=== PATIENT | male | born 1945 | race Caucasian/White ===

== ENCOUNTER 2017-04-16 12:43 | Outpatient (RCR) | payer MEDICARE ==
[~2017-04-16 12:43] MED LIST: ASPI-875 PO; ASPI325T32 PO; BISO1TAB39 PO; BISO1TAB63 PO; CIPR500T78 PO; CRV6.25T PO; INDOMETHACIN PO; KCL20TCR PO; LEVO200T6 PO; LEVO75TA6 PO; Lisinopril PO; OXYC10TA85 PO; SPRN25T PO
== END 2017-04-16 16:00 | disposition home or self-care (01) ==
LOC: WOUNDCARE 12:43
PROVIDERS: ATTEND Surgery
DX: E11.621 Type 2 diabetes mellitus with foot ulcer (principal); L97.512 Non-pressure chronic ulcer of other part of right foot with fat layer exposed; L97.412 Non-pressure chronic ulcer of right heel and midfoot with fat layer exposed; I70.244 Atherosclerosis of native arteries of left leg with ulceration of heel and midfoot; I70.245 Atherosclerosis of native arteries of left leg with ulceration of other part of foot; I87.323 Chronic venous hypertension (idiopathic) with inflammation of bilateral lower extremity; E11.65 Type 2 diabetes mellitus with hyperglycemia
CPT/HCPCS: 11042; 11045; 82962; 87070; 87075; 87077; 87186; 87205

== ENCOUNTER → 2017-04-23 | Outpatient (CLI) | payer MEDICARE ==
[~2017-04-23] MED LIST changes: +ASPI-999 PO; +LEVO175T5 PO; +OXYC20TA3 PO
== END ==
LOC: WOUNDCARE 12:31
PROVIDERS: ATTEND Surgery
DX: E11.621 Type 2 diabetes mellitus with foot ulcer (principal); L97.522 Non-pressure chronic ulcer of other part of left foot with fat layer exposed; L97.422 Non-pressure chronic ulcer of left heel and midfoot with fat layer exposed; I70.244 Atherosclerosis of native arteries of left leg with ulceration of heel and midfoot; I70.245 Atherosclerosis of native arteries of left leg with ulceration of other part of foot; I87.323 Chronic venous hypertension (idiopathic) with inflammation of bilateral lower extremity; E11.65 Type 2 diabetes mellitus with hyperglycemia
CPT/HCPCS: 11042

== ENCOUNTER 2017-04-24 07:40 | Day surgery (SDC) | payer MEDICARE ==
[~2017-04-24] VITALS: Ht 179.1 cm; Wt 115.7 kg
[2017-04-24] VITALS (9 sets, daily range): BP systolic 118–158; BP diastolic 59–73
[~2017-04-24 07:40] MED LIST changes: -ASPI-999 PO; -LEVO175T5 PO; -OXYC20TA3 PO
[2017-04-24] MEDS ORDERED: HEParin (CATH LAB) 2,000 ML IV ONE (07:42)
[2017-04-24] MEDS ORDERED: NS IV 1000 ML 1,000 ML ONE (07:42)
[2017-04-24] MEDS ORDERED: NS IV 1000 ML 1,000 ML IV SCH ×2 (08:00→12:32)
[2017-04-24 08:18] LABS: RED BLOOD COUNT 4.44 10^6/uL (4.35-5.85); RED CELL DISTRIBUTION WIDTH 17.9 % (10.0-14.5); WHITE BLOOD COUNT 11.1 10^3/uL (4.3-11.0)
[2017-04-24 08:31] LABS: INR 1.1 (0.8-1.4); PROTHROMBIN TIME PATIENT 14.2 SEC (12.2-14.7)
[2017-04-24 08:36] LABS: ALBUMIN 3.5 GM/DL (3.2-4.5); BILIRUBIN,TOTAL 1.1 MG/DL (0.1-1.0); CALCIUM 9.1 MG/DL (8.5-10.1); CREATININE SERUM 1.26 MG/DL (0.60-1.30); TOTAL PROTEIN 7.6 GM/DL (6.4-8.2)
[2017-04-24] MEDS ORDERED: OXYC20TA3 PO (09:39)
[2017-04-24] MEDS ORDERED: LEVO175T5 PO (09:39)
[2017-04-24] MEDS ORDERED: diphenhydrAMINE 50 MG/ML INJ (BENADRYL) ONE (10:47)
[2017-04-24] MEDS ORDERED: fentaNYL INJECTION 100 MCG/2 ML AMP ONE (10:47)
[2017-04-24] MEDS ORDERED: MIDAZOLAM 5 MG/5 ML (VERSED) VIAL ONE (10:47)
--- NOTE | 2017-04-24 10:57 | Cardiac Procedure Note-CS/ASA ---
Pre-Procedure Note Pre-Op Procedure Note H&P Reviewed The H&P was reviewed, patient examined and no changes noted. Date H&P Reviewed: Apr 24, 2017 Time H&P Reviewed: 10:57 Conscious Sedation Pre-Proced Time Reviewed: :57 ASA Class: 2 Airway Mallampati Classification: ([place] appropriate class) I. II. III, IV Lungs Heart ASA score ASA 1: a normal healthy patient ASA 2: a patient with a mild systemic disease (mid diabetes, controlled hypertension, obesity ASA 3: a patient with a severe systemic disease that limits activity (angina , COPD, prior Myocardial infarction) ASA 4: a patient with an incapacitating disease that is a constant threat to life (CHF, renal failure) ASA 5: a moribund patient not expected to survive 24 hrs. (ruptured aneurysm) ASA 6: a declared brain patient whose organs are being harvested. For emergent operations, add the letter E after the classification Grade 2 Sedation Plan: Analgesia, Amnesia, Plan communicated to team members, Discussed options with patient/fam, Discussed risks with patient/fam Note The patient is an appropriate candidate to undergo the planned procedure, sedation, and anesthesia. The patient immediately re-assessed prior to indication. JORGE A ALFARO MD FACP FAC CCDS Apr 24, 2017 10:57
[2017-04-24] MEDS ORDERED: ASPI-999 PO (12:34)
--- NOTE | 2017-04-24 12:35 | Discharge Inst-Post CATH ---
Discharge Inst-CATH Post Cardiac Cath D/C Inst Follow Up/Plan F/u with Dr Frausto in 1-2 weeks CARDIAC CATH DISCHARGE INSTRUCTIONS *Hold Metformin for 48 hours post heart cath. ACTIVITY * Go Home directly and rest. * Limit activity of the leg (or wrist if it was used) for 7 days including aerobics, swimming, jogging, bicycling, etc. * Restrict stair-climbing for 7 days if possible, if not, climb up with your non -cath leg, then bring together on the same step. * Avoid lifting, pushing, pulling or excessive movement of the affected extremity for 7 days. * Customary sexual activity may be resumed after 2 days-use caution not to use a position that strains or causes pain to the affected extremity. * No driving for 24 hours. * NO SMOKING. * Avoid straining for bowel movements for 7 days. * Gentle walking on level ground is allowed. * Returning to work will depend on the type of procedure and the results. Your doctor will discuss this with you. CALL YOUR DOCTOR FOR ANY OF THE FOLLOWING: *If bleeding from the puncture site occurs- Apply gentle pressure to site with clean cloth and call your doctor or EMS. * If a knot or lump forms under the skin, increases in size, or causes pain. * If bruising appears to be worsening or moving further down your leg instead of disappearing. * Temperature above 101 F. CARE OF YOUR GROIN INCISION; * Bruising or purple discoloration of the skin near the puncture site is common. * You may shower only, no bathtub bathing for 5 days. Be careful to avoid slipping as your leg may feel stiff. * If a closure device was used on your femoral artery, please see the attached guide regarding care of the device and your leg. * REMOVE the dressing from your groin the next day after your procedure in the shower. CARE OF YOUR WRIST INCISION; * Bruising or purple discoloration of the skin near the puncture site is common. * You may shower. * DO NOT submerge wrist. * Remove dressing in 24 hours. JORGE A FRAUSTO MD [facility] CCDS Apr 24, 2017 12:35
--- NOTE | 2017-04-24 12:36 | Discharge Inst-Cardiology ---
Discharge Inst-Cardiac Discharge Medications New Medications: Aspirin (Aspirin) 81 Mg Tab.chew 81 MG PO DAILY for 90 Days, #90 TAB 3 Refills Continued Medications: Bisoprol/Hydrochlorothiazide (Bisoprolol-Hctz 5-6.25 Mg Tab) 1 Tab Tablet 1 TAB PO DAILY, TAB Levothyroxine Sodium (Levothyroxine Sodium) 175 Mcg Tablet 175 MCG PO DAILY, TAB Oxycodone HCl (Oxycodone HCl) 20 Mg Tablet 10 MG PO Q6H PRN for PAIN-SEVERE, TAB TAKES 1/2 OF A (20 MG) TABLET Orders-Post D/C & Referrals Pneu Vac Indicated: Yes JORGE A ALFARO MD FACP FAC CCDS Apr 24, 2017 12:36
[2017-04-24] MEDS ORDERED: PATIENT MAY USE OWN MEDS, ALL PO SCH (12:45)
--- NOTE | 2017-04-25 10:56 | OPERATIVE REPORT ---
DATE OF SERVICE: 04/24/2017 PERIPHERAL ANGIOGRAPHY The patient is a 72-year-old gentleman who had a nonhealing wound of the left great toe that is being managed by Dr. Love. Ankle brachial indices and segmental pressures have indicated considerable disease of the dorsalis pedis artery on the left side. Peripheral angiography was carried out today to further evaluate and to see if peripheral intervention is needed. Informed consent was obtained. DESCRIPTION OF PROCEDURE: He was brought to the cardiac catheterization laboratory in a fasting state. The right groin was prepared and draped in the usual sterile fashion. Lidocaine 1% local anesthesia. Modified Seldinger technique was used to advance a 5-[place] sheath into the right femoral artery. We used a 5-[place] pigtail catheter to carry out bilateral leg artery angiography with runoff. This was accomplished by putting a pigtail catheter just above the level of the aortoiliac bifurcation. A runoff was then performed although the circulation below the legs on either side was not adequately visualized. Because the area of interest was on the left side, we proceeded with selective angiography of the left common iliac artery with a #5 [place] crossover catheter with runoff. We then advanced a straight catheter over a wire into the distal left superficial femoral artery and we were able to perform angiography of the left popliteal artery and the trifurcation arteries. The catheter was then removed. Angiography of the right femoral artery was carried out through the sheath. Mynx was used to achieve hemostasis. He tolerated the procedure well. Bilateral leg artery angiography is limited to the proximal circulation up to the distal superficial femoral. On this, the distal circulation of the legs is not visualized. The proximal circulation on both legs appears intact and the flow is brisk. Selective angiography of the left common iliac artery indicates mild plaque involving the common iliac, external iliac, internal iliac, common femoral, superficial femoral, and deep femoral arteries. Selective angiography of the distal left superficial femoral artery indicates no significant stenosis at the popliteal artery or the distal left superficial femoral artery. The popliteal artery trifurcates into the anterior tibial which exhibits only mild plaque and is intact down to the level of the foot. The peroneal artery is relatively small in caliber. It appears intact. It appears to have diffuse mild to moderate disease. The posterior tibial artery is also intact all the way down to the foot. It has diffuse moderate disease. There does not appear to have critical stenoses. The stenoses are up to approximately 50 to 60%. CONCLUSIONS: This study indicates moderate distal disease of the arterial circulation of the left leg. The dorsalis pedis, peroneal, and posterior tibial arteries are intact. The left anterior tibial artery has mild disease. The peroneal and posterior tibial arteries have moderate disease. Job ID: [id number] DocumentID: [id number] Dictated Date: 04/24/2017 12:26:00 Jetting Machine Operator Date: 04/24/2017 13:09:14 Dictated By: JORGE A ALFARO MD, MA, FACP, FACC,
== END 2017-04-24 16:00 | disposition home or self-care (01) ==
LOC: CATH 07:40 → SURG 12:31 → ENPENDDIS 15:45 → CATH 16:00
PROVIDERS: ATTEND Internal Medicine Cardiovascular Disease
DX: I70.213 Atherosclerosis of native arteries of extremities with intermittent claudication, bilateral legs (principal); L97.529 Non-pressure chronic ulcer of other part of left foot with unspecified severity; L97.429 Non-pressure chronic ulcer of left heel and midfoot with unspecified severity; I70.244 Atherosclerosis of native arteries of left leg with ulceration of heel and midfoot; I70.245 Atherosclerosis of native arteries of left leg with ulceration of other part of foot; I10 Essential (primary) hypertension; I25.10 Atherosclerotic heart disease of native coronary artery without angina pectoris; M10.9 Gout, unspecified; R73.09 Other abnormal glucose; Z79.899 Other long term (current) drug therapy; Z72.0 Tobacco use; Z95.5 Presence of coronary angioplasty implant and graft
CPT/HCPCS: 36245; 36415; 75716; 75774; 80053; 80061; 85027; 85610; 85730; 87081

== ENCOUNTER → 2017-04-30 | Outpatient (CLI) | payer MEDICARE ==
[~2017-04-30] MED LIST changes: +ASPI-999 PO; +LEVO175T5 PO; +OXYC20TA3 PO
== END ==
LOC: WOUNDCARE 13:21
PROVIDERS: ATTEND Surgery
DX: E11.621 Type 2 diabetes mellitus with foot ulcer (principal); L97.522 Non-pressure chronic ulcer of other part of left foot with fat layer exposed; L97.422 Non-pressure chronic ulcer of left heel and midfoot with fat layer exposed; I70.244 Atherosclerosis of native arteries of left leg with ulceration of heel and midfoot; I70.245 Atherosclerosis of native arteries of left leg with ulceration of other part of foot; I87.323 Chronic venous hypertension (idiopathic) with inflammation of bilateral lower extremity; E11.65 Type 2 diabetes mellitus with hyperglycemia
CPT/HCPCS: 11042

== ENCOUNTER → 2017-05-01 | Outpatient (CLI) | payer MEDICARE ==
--- NOTE | 2017-05-01 13:42 | Diagnostic Imaging Report ---
EXAMINATION: Left foot at 10:30 a.m. INDICATION: Chronic ulcer on big toe. FINDINGS: Three views were obtained. There are no prior studies available for comparison. There is slight irregularity of the skin overlying the medial aspect of the interphalangeal joint of the great toe. There is also a 3 x 7 mm area of diminished density along the medial aspect of the tuft of the distal phalanx of the great toe. This area of diminished density could be secondary to osteomyelitis although the cortex appears to be fairly well preserved. If further imaging is desired, then a nuclear medicine three-phase bone scan or MRI would be recommended. There is no other sign of bony destruction. There is no fracture or acute bony abnormality appreciated either. There is a mild hallux valgus deformity of the first ray and there is degenerative disease involving the medial aspect of the head of the first metatarsal. There are also moderate degenerative changes involving the forefoot. The lateral view also suggests that there is considerable soft tissue edema over the dorsal aspect of the forefoot. There is a prominent calcaneal spur. IMPRESSION: 1. There does appear to be a small area of ulceration along the medial aspect of the great toe. The area of diminished density within the tuft of the distal phalanx of the great toe is suspicious for osteomyelitis as well. Recommendations as above. 2. There is no acute bony abnormality noted otherwise, but there does seem to be generalized soft tissue edema of the dorsum of the forefoot. Dictated by: Dictated on workstation # [id number]
== END ==
LOC: RAD 10:02
PROVIDERS: ATTEND Surgery
DX: E11.621 Type 2 diabetes mellitus with foot ulcer (principal); R60.0 Localized edema; L97.522 Non-pressure chronic ulcer of other part of left foot with fat layer exposed; L97.422 Non-pressure chronic ulcer of left heel and midfoot with fat layer exposed; I70.244 Atherosclerosis of native arteries of left leg with ulceration of heel and midfoot; I70.245 Atherosclerosis of native arteries of left leg with ulceration of other part of foot; I87.323 Chronic venous hypertension (idiopathic) with inflammation of bilateral lower extremity
CPT/HCPCS: 73630

== ENCOUNTER → 2017-05-07 | Outpatient (CLI) | payer MEDICARE | LOC: WOUNDCARE 09:17 | PROVIDERS: ATTEND Nurse Practitioner | DX: E11.621 Type 2 diabetes mellitus with foot ulcer (principal); L97.522 Non-pressure chronic ulcer of other part of left foot with fat layer exposed; L97.422 Non-pressure chronic ulcer of left heel and midfoot with fat layer exposed; I70.244 Atherosclerosis of native arteries of left leg with ulceration of heel and midfoot; I70.245 Atherosclerosis of native arteries of left leg with ulceration of other part of foot; I87.323 Chronic venous hypertension (idiopathic) with inflammation of bilateral lower extremity; E11.65 Type 2 diabetes mellitus with hyperglycemia | CPT/HCPCS: 11042 ==

== ENCOUNTER → 2017-05-14 | Outpatient (CLI) | payer MEDICARE | LOC: WOUNDCARE 13:18 | PROVIDERS: ATTEND Surgery | DX: E11.621 Type 2 diabetes mellitus with foot ulcer (principal); L97.522 Non-pressure chronic ulcer of other part of left foot with fat layer exposed; L97.422 Non-pressure chronic ulcer of left heel and midfoot with fat layer exposed; I70.244 Atherosclerosis of native arteries of left leg with ulceration of heel and midfoot; I70.245 Atherosclerosis of native arteries of left leg with ulceration of other part of foot; I87.323 Chronic venous hypertension (idiopathic) with inflammation of bilateral lower extremity; E11.65 Type 2 diabetes mellitus with hyperglycemia | CPT/HCPCS: 11042 ==

== ENCOUNTER → 2017-05-28 | Outpatient (CLI) | payer MEDICARE | LOC: WOUNDCARE 13:26 | PROVIDERS: ATTEND Surgery | DX: E11.621 Type 2 diabetes mellitus with foot ulcer (principal); L97.422 Non-pressure chronic ulcer of left heel and midfoot with fat layer exposed; L97.522 Non-pressure chronic ulcer of other part of left foot with fat layer exposed; I70.244 Atherosclerosis of native arteries of left leg with ulceration of heel and midfoot; I70.245 Atherosclerosis of native arteries of left leg with ulceration of other part of foot; I87.323 Chronic venous hypertension (idiopathic) with inflammation of bilateral lower extremity; E11.65 Type 2 diabetes mellitus with hyperglycemia | CPT/HCPCS: 11042 ==

== ENCOUNTER → 2017-06-04 | Outpatient (CLI) | payer MEDICARE | LOC: WOUNDCARE 13:48 | PROVIDERS: ATTEND Surgery | DX: E11.621 Type 2 diabetes mellitus with foot ulcer (principal); L97.522 Non-pressure chronic ulcer of other part of left foot with fat layer exposed; L97.422 Non-pressure chronic ulcer of left heel and midfoot with fat layer exposed; I70.244 Atherosclerosis of native arteries of left leg with ulceration of heel and midfoot; I70.245 Atherosclerosis of native arteries of left leg with ulceration of other part of foot; I87.323 Chronic venous hypertension (idiopathic) with inflammation of bilateral lower extremity; E11.65 Type 2 diabetes mellitus with hyperglycemia | CPT/HCPCS: 11042 ==

== ENCOUNTER → 2017-06-18 | Outpatient (CLI) | payer MEDICARE | LOC: WOUNDCARE 13:17 | PROVIDERS: ATTEND Surgery | DX: E11.621 Type 2 diabetes mellitus with foot ulcer (principal); L97.522 Non-pressure chronic ulcer of other part of left foot with fat layer exposed; L97.422 Non-pressure chronic ulcer of left heel and midfoot with fat layer exposed; I70.244 Atherosclerosis of native arteries of left leg with ulceration of heel and midfoot; I70.245 Atherosclerosis of native arteries of left leg with ulceration of other part of foot; I87.323 Chronic venous hypertension (idiopathic) with inflammation of bilateral lower extremity; E11.65 Type 2 diabetes mellitus with hyperglycemia | CPT/HCPCS: 11042; 87070; 87075; 87077; 87205 ==

== ENCOUNTER → 2017-06-18 | Outpatient (CLI) | payer MEDICARE | LOC: LAB 14:23 | PROVIDERS: ATTEND Surgery | DX: E11.621 Type 2 diabetes mellitus with foot ulcer (principal); L97.522 Non-pressure chronic ulcer of other part of left foot with fat layer exposed; L97.422 Non-pressure chronic ulcer of left heel and midfoot with fat layer exposed; E11.65 Type 2 diabetes mellitus with hyperglycemia; I70.245 Atherosclerosis of native arteries of left leg with ulceration of other part of foot; I70.244 Atherosclerosis of native arteries of left leg with ulceration of heel and midfoot | CPT/HCPCS: 36415; 83036 ==

== ENCOUNTER → 2017-06-25 | Outpatient (CLI) | payer MEDICARE | LOC: WOUNDCARE 13:08 | PROVIDERS: ATTEND Surgery | DX: E11.621 Type 2 diabetes mellitus with foot ulcer (principal); L97.522 Non-pressure chronic ulcer of other part of left foot with fat layer exposed; L97.422 Non-pressure chronic ulcer of left heel and midfoot with fat layer exposed; I70.244 Atherosclerosis of native arteries of left leg with ulceration of heel and midfoot; I70.245 Atherosclerosis of native arteries of left leg with ulceration of other part of foot; I87.323 Chronic venous hypertension (idiopathic) with inflammation of bilateral lower extremity; E11.65 Type 2 diabetes mellitus with hyperglycemia | CPT/HCPCS: 11042 ==

== ENCOUNTER → 2017-07-02 | Outpatient (CLI) | payer MEDICARE | LOC: WOUNDCARE 13:10 | PROVIDERS: ATTEND Surgery | DX: E11.621 Type 2 diabetes mellitus with foot ulcer (principal); L97.522 Non-pressure chronic ulcer of other part of left foot with fat layer exposed; L97.422 Non-pressure chronic ulcer of left heel and midfoot with fat layer exposed; I70.244 Atherosclerosis of native arteries of left leg with ulceration of heel and midfoot; I70.245 Atherosclerosis of native arteries of left leg with ulceration of other part of foot; I87.323 Chronic venous hypertension (idiopathic) with inflammation of bilateral lower extremity; E11.65 Type 2 diabetes mellitus with hyperglycemia | CPT/HCPCS: 11042 ==

== ENCOUNTER → 2017-07-09 | Outpatient (CLI) | payer MEDICARE | LOC: WOUNDCARE 13:22 | PROVIDERS: ATTEND Surgery | DX: L97.522 Non-pressure chronic ulcer of other part of left foot with fat layer exposed (principal); E11.621 Type 2 diabetes mellitus with foot ulcer; I70.245 Atherosclerosis of native arteries of left leg with ulceration of other part of foot; I87.323 Chronic venous hypertension (idiopathic) with inflammation of bilateral lower extremity | CPT/HCPCS: 11042 ==

== ENCOUNTER → 2017-07-30 | Outpatient (CLI) | payer MEDICARE | LOC: WOUNDCARE 12:59 | PROVIDERS: ATTEND Surgery | DX: E11.621 Type 2 diabetes mellitus with foot ulcer (principal); L97.522 Non-pressure chronic ulcer of other part of left foot with fat layer exposed; I70.245 Atherosclerosis of native arteries of left leg with ulceration of other part of foot; I87.323 Chronic venous hypertension (idiopathic) with inflammation of bilateral lower extremity | CPT/HCPCS: 11042; 87070; 87075; 87205 ==

== ENCOUNTER → 2017-08-06 | Outpatient (CLI) | payer MEDICARE | LOC: WOUNDCARE 12:57 | PROVIDERS: ATTEND Surgery | DX: L97.522 Non-pressure chronic ulcer of other part of left foot with fat layer exposed (principal); E11.621 Type 2 diabetes mellitus with foot ulcer; I87.323 Chronic venous hypertension (idiopathic) with inflammation of bilateral lower extremity | CPT/HCPCS: 11042 ==

== ENCOUNTER → 2017-08-08 | Outpatient (CLI) | payer MEDICARE | LOC: WOUNDCARE 14:52 | PROVIDERS: ATTEND Surgery | DX: E11.621 Type 2 diabetes mellitus with foot ulcer (principal); L97.522 Non-pressure chronic ulcer of other part of left foot with fat layer exposed; I87.323 Chronic venous hypertension (idiopathic) with inflammation of bilateral lower extremity | CPT/HCPCS: 29445 ==

== ENCOUNTER → 2017-08-13 | Outpatient (CLI) | payer MEDICARE | LOC: WOUNDCARE 12:23 | PROVIDERS: ATTEND Surgery | DX: E11.621 Type 2 diabetes mellitus with foot ulcer (principal); L97.522 Non-pressure chronic ulcer of other part of left foot with fat layer exposed; I87.323 Chronic venous hypertension (idiopathic) with inflammation of bilateral lower extremity | CPT/HCPCS: 11042 ==

== ENCOUNTER → 2017-08-20 | Outpatient (CLI) | payer MEDICARE | LOC: WOUNDCARE 12:29 | PROVIDERS: ATTEND Surgery | DX: E11.621 Type 2 diabetes mellitus with foot ulcer (principal); L97.522 Non-pressure chronic ulcer of other part of left foot with fat layer exposed; I87.323 Chronic venous hypertension (idiopathic) with inflammation of bilateral lower extremity | CPT/HCPCS: 11042 ==

== ENCOUNTER → 2017-08-27 | Outpatient (CLI) | payer MEDICARE | LOC: WOUNDCARE 13:24 | PROVIDERS: ATTEND Surgery | DX: E11.621 Type 2 diabetes mellitus with foot ulcer (principal); L97.522 Non-pressure chronic ulcer of other part of left foot with fat layer exposed; I87.323 Chronic venous hypertension (idiopathic) with inflammation of bilateral lower extremity | CPT/HCPCS: 29445 ==

== ENCOUNTER → 2017-09-03 | Outpatient (CLI) | payer MEDICARE | LOC: WOUNDCARE 13:16 | PROVIDERS: ATTEND Surgery | DX: E11.621 Type 2 diabetes mellitus with foot ulcer (principal); L97.522 Non-pressure chronic ulcer of other part of left foot with fat layer exposed; I87.323 Chronic venous hypertension (idiopathic) with inflammation of bilateral lower extremity | CPT/HCPCS: 99212 ==

== ENCOUNTER → 2018-02-21 | Outpatient (CLI) | payer MEDICARE ==
[~2018-02-21] MED LIST changes: +ACHD5005 PO; +BICA50TA4 PO; +BISO1TAB3 PO; +DOCU-143 PO; +GABA-486 PO; +LIRA0.6P3 SQ
--- NOTE | 2018-02-21 09:33 | Diagnostic Imaging Report ---
INDICATION: Abdominal pain TECHNIQUE: Multiple grayscale sonographic images were obtained of the right upper quadrant of the abdomen. CORRELATION STUDY: None FINDINGS: LIVER: There is uniform echotexture within the visualized portions of the liver. There is normal, hepatopedal direction of flow within the main portal vein. Liver enlarged at 21 cm. GALLBLADDER: There is rather pronounced abnormal gallbladder wall thickening. There is what appears to be some degree of shadowing stones but also likely underlying biliary sludge may be somewhat thickened within the lumen. Gallbladder has a fairly diseased appearance. COMMON BILE DUCT: Nondilated for the patient's age at 7 mm. PANCREAS: Largely obscured by overlying bowel gas. RIGHT KIDNEY: Measures 10.6 cm. Some diffuse thinning of the renal parenchyma. AORTA/IVC: Not well visualized. OTHER: None. IMPRESSION: 1. Rather markedly abnormal appearance about the gallbladder which does contain what appears to be likely combination of stones along with sludge and/or debris. Abnormal gallbladder wall thickening. There is overall diseased appearance about the gallbladder could be perhaps reflecting chronic cholecystitis. If further assessment of function is desired, HIDA scan with ejection fraction may be of additional benefit. Dictated by: Dictated on workstation # [id number]
== END ==
LOC: RAD 07:56
PROVIDERS: ATTEND Nurse Practitioner Family
DX: K82.8 Other specified diseases of gallbladder (principal); E80.6 Other disorders of bilirubin metabolism
CPT/HCPCS: 76705

== ENCOUNTER → 2018-02-28 | Outpatient (CLI) | payer MEDICARE ==
[~2018-02-28] MED LIST changes: +BARIUM SUSPENSION 2.1% (VANILLA SILQ) 450 ML PO ONE; +CATHETER FLUSH 10 ML SYR IV PRN; +IOHEXOL 350 MG/ML 100 ML (OMNIPAQUE 350) VIAL IV ONE; +NS 250 ML (IVPB) BAG IV ONE
--- NOTE | 2018-02-28 13:54 | Diagnostic Imaging Report ---
PROCEDURE: CT chest with contrast, CT abdomen and pelvis with and without contrast. TECHNIQUE: Pre and post intravenous contrast axial imaging of the abdomen and pelvis and post contrast axial imaging of the chest were performed. INDICATION: Prostate carcinoma. No prior CT chest is available for comparison. Comparison is made with prior CT abdomen and pelvis from 07/29/2014. FINDINGS: CT chest: No axillary lymphadenopathy is seen. There are indeterminate lymph nodes in the mediastinum, in the region of the AP window in right paratracheal location. Right paratracheal node measures 2.1 x 1.2 cm. No definite hilar lymphadenopathy is identified. Coronary arterial calcifications are present. The heart is enlarged. No pericardial or pleural fluid is identified. There is a moderate-sized hiatal hernia. No parenchymal mass is identified. There is some scarring and minimal bronchiectasis in the medial right lower lobe. Bony evaluation does show multiple osteosclerotic lesions within thoracic vertebral bodies suggestive of osteoblastic metastatic disease. CT abdomen and pelvis: No discrete liver mass is identified. There are small stones layering within the gallbladder. The pancreas and spleen are unremarkable. No adrenal mass is identified. Kidneys contain small cortical low densities, too small to characterize but likely cysts. The aorta is partially calcified but nonaneurysmal. There are multiple lymph nodes identified in the central retroperitoneum. Largest node is located in the left para-aortic location at the level of the left renal hilum. This measures 2.4 x 2.1 cm. There are prominent right-sided periaortic nodes as well. A lymph node anterior to the IVC just proximal to the confluence measures 1.8 x 1.1 cm. No mesenteric lymphadenopathy is seen. Small and large bowel loops are normal caliber. There is no ascites. Imaging through the pelvis is without evidence of inguinal or iliac lymphadenopathy. Bladder is unremarkable bony structures do demonstrate numerous osteosclerotic lesions within the lumbar spine and bony pelvis consistent with osteoblastic metastatic disease. IMPRESSION: 1. No evidence of pulmonary metastatic disease. There are indeterminate lymph nodes in the mediastinum. 2. Central retroperitoneal lymphadenopathy, suggestive of metastatic disease. 3. 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 Dictated by: Dictated on workstation # [id number]
--- NOTE | 2018-02-28 17:00 | Diagnostic Imaging Report ---
INDICATION: Prostate cancer. COMPARISON: Bone scan from 10/26/[address] chest, abdomen, and pelvis of 10/31/2017. TECHNIQUE: Anterior and posterior scintigraphic images of the whole body were obtained after the intravenous injection of 25.6 mCi of Tc-99m MDP. FINDINGS: Numerous abnormal foci of radiotracer activity within the axial and appendicular skeleton, indicative of osseous metastases. Metastases involve the cervical spine, thoracic spine, lumbar spine, sacrum, bilateral iliac bones, bilateral proximal femurs, bilateral ribs, and sternum. There is a large blastic lesion within the distal right femoral diaphysis. There may be right maxillary sinus disease versus skeletal metastasis to the right aspect of the midface. IMPRESSION: Abnormal exam with extensive osseous metastases. Dictated by: Dictated on workstation # [id number]
== END ==
LOC: CARD 12:06
PROVIDERS: ATTEND Internal Medicine Hematology & Oncology
DX: C61 Malignant neoplasm of prostate (principal)
CPT/HCPCS: 71260; 74178; 78306

== ENCOUNTER 2018-03-05 14:23 | Outpatient (CLI) | payer MEDICARE ==
[~2018-03-05] VITALS: Ht 179.1 cm; Wt 113.9 kg
[~2018-03-05 14:23] MED LIST changes: -ACHD5005 PO; -BARIUM SUSPENSION 2.1% (VANILLA SILQ) 450 ML PO ONE; -BICA50TA4 PO; -BISO1TAB3 PO; -CATHETER FLUSH 10 ML SYR IV PRN; -DOCU-143 PO; -GABA-486 PO; -IOHEXOL 350 MG/ML 100 ML (OMNIPAQUE 350) VIAL IV ONE; -LIRA0.6P3 SQ; -NS 250 ML (IVPB) BAG IV ONE
[2018-03-05 14:30] VITALS: BP 117/59
[2018-03-05] MEDS ORDERED: BISO1TAB3 PO (15:00)
[2018-03-05] MEDS ORDERED: LEVO200T6 PO (15:00)
[2018-03-05] MEDS ORDERED: LIRA0.6P3 SQ (15:00)
[2018-03-05] MEDS ORDERED: BICA50TA4 PO (15:00)
[2018-03-05] MEDS ORDERED: GABA-486 PO (15:00)
[2018-03-07] MEDS ORDERED: DOCU-143 PO (10:15)
[2018-03-07] MEDS ORDERED: ACHD5005 PO (10:15)
== END 2018-03-05 14:50 | disposition home or self-care (01) ==
LOC: PREOP 14:23
PROVIDERS: ATTEND Surgery
DX: Z01.818 Encounter for other preprocedural examination (principal)
CPT/HCPCS: 87081

== ENCOUNTER 2018-05-22 09:41 | Outpatient (RCR) | payer MEDICARE ==
[2018-03-28 09:28] LABS: BASOPHILS % (AUTO) 0 % (0-10); EOSINOPHILS # (AUTO) 0.4 10^3/uL (0.0-0.3); EOSINOPHILS % (AUTO) 5 % (0-10); HEMATOCRIT 38 % (40-54); HEMOGLOBIN 11.5 G/DL (13.3-17.7); LYMPHOCYTES # (AUTO) 1.6 X 10^3 (1.0-4.0); LYMPHOCYTES % (AUTO) 19 % (12-44); MEAN CORPUSCULAR HEMOGLOBIN 25 PG (25-34); MEAN CORPUSCULAR HGB CONC 31 G/DL (32-36); MEAN CORPUSCULAR VOLUME 83 FL (80-99); MEAN PLATELET VOLUME 10.5 FL (7.4-10.4); MONOCYTES # (AUTO) 0.9 X 10^3 (0.0-1.0); MONOCYTES % (AUTO) 10 % (0-12); NEUTROPHILS # (AUTO) 5.5 X 10^3 (1.8-7.8); NEUTROPHILS % (AUTO) 66 % (42-75); PLATELET COUNT 239 10^3/uL (130-400); RED BLOOD COUNT 4.53 10^6/uL (4.35-5.85); RED CELL DISTRIBUTION WIDTH 18.3 % (10.0-14.5); WHITE BLOOD COUNT 8.3 10^3/uL (4.3-11.0)
[2018-03-28 09:49] LABS: ALBUMIN 3.7 GM/DL (3.2-4.5); BILIRUBIN,TOTAL 0.7 MG/DL (0.1-1.0); CREATININE SERUM 1.28 MG/DL (0.60-1.30); POTASSIUM 4.4 MMOL/L (3.6-5.0); TOTAL PROTEIN 6.8 GM/DL (6.4-8.2)
[~2018-05-22 09:41] MED LIST changes: +ACHD5005 PO; +BICA50TA47 PO; +BISO1TAB3 PO; +DOCU-143 PO; +GABA-486 PO; +LEUPROLIDE 22.5 MG SYRIN(ELIGARD) SQ SCH; +LIRA0.6P3 SQ; +ceFAZolin 2 GM IV Premixed 50 ML ONE
[2018-05-22 09:56] LABS: BASOPHILS % (AUTO) 0 % (0-10); EOSINOPHILS # (AUTO) 0.3 10^3/uL (0.0-0.3); EOSINOPHILS % (AUTO) 4 % (0-10); HEMATOCRIT 36 % (40-54); HEMOGLOBIN 10.5 G/DL (13.3-17.7); LYMPHOCYTES # (AUTO) 1.7 X 10^3 (1.0-4.0); LYMPHOCYTES % (AUTO) 19 % (12-44); MEAN CORPUSCULAR HEMOGLOBIN 25 PG (25-34); MEAN CORPUSCULAR HGB CONC 29 G/DL (32-36); MEAN CORPUSCULAR VOLUME 84 FL (80-99); MEAN PLATELET VOLUME 10.1 FL (7.4-10.4); MONOCYTES # (AUTO) 0.8 X 10^3 (0.0-1.0); MONOCYTES % (AUTO) 9 % (0-12); NEUTROPHILS # (AUTO) 6.1 X 10^3 (1.8-7.8); NEUTROPHILS % (AUTO) 68 % (42-75); PLATELET COUNT 243 10^3/uL (130-400); RED BLOOD COUNT 4.27 10^6/uL (4.35-5.85); RED CELL DISTRIBUTION WIDTH 18.2 % (10.0-14.5); WHITE BLOOD COUNT 8.9 10^3/uL (4.3-11.0)
[2018-05-22 10:17] LABS: ALANINE AMINOTRANSFERASE 18 U/L (0-55); ALBUMIN 3.6 GM/DL (3.2-4.5); ALKALINE PHOSPHATASE 176 U/L (40-136); BILIRUBIN,TOTAL 0.7 MG/DL (0.1-1.0); BUN/CREATININE RATIO 18; CALCIUM 9.1 MG/DL (8.5-10.1); CARBON DIOXIDE 28 MMOL/L (21-32); CHLORIDE 102 MMOL/L (98-107); CREATININE SERUM 1.15 MG/DL (0.60-1.30); GFR ESTIMATED > 60; GLUCOSE 150 MG/DL (70-105); POTASSIUM 4.4 MMOL/L (3.6-5.0); SODIUM 138 MMOL/L (135-145); TOTAL PROTEIN 6.6 GM/DL (6.4-8.2)
== END 2018-05-28 | disposition home or self-care (01) ==
LOC: ONC 09:41
PROVIDERS: ATTEND Internal Medicine Hematology & Oncology
DX: C61 Malignant neoplasm of prostate (principal); E11.51 Type 2 diabetes mellitus with diabetic peripheral angiopathy without gangrene; I10 Essential (primary) hypertension; E03.9 Hypothyroidism, unspecified; Z92.3 Personal history of irradiation; I25.10 Atherosclerotic heart disease of native coronary artery without angina pectoris; I73.9 Peripheral vascular disease, unspecified; K80.20 Calculus of gallbladder without cholecystitis without obstruction; N30.90 Cystitis, unspecified without hematuria
CPT/HCPCS: 36415; 80053; 84153; 85025; 96402; 99213

== ENCOUNTER 2018-10-25 09:49 | Outpatient (CLI) | payer MEDICARE ==
[~2018-10-25 09:49] MED LIST changes: -LEUPROLIDE 22.5 MG SYRIN(ELIGARD) SQ SCH; -ceFAZolin 2 GM IV Premixed 50 ML ONE
== END 2018-10-25 11:09 | disposition home or self-care (01) ==
LOC: SLEEP 09:49
PROVIDERS: ATTEND Nurse Practitioner Family
DX: G47.33 Obstructive sleep apnea (adult) (pediatric) (principal); G47.10 Hypersomnia, unspecified; I10 Essential (primary) hypertension; R06.83 Snoring

== ENCOUNTER 2018-11-06 09:48 | Outpatient (RCR) | payer MEDICARE ==
[2018-08-14 10:22] LABS: BASOPHILS % (AUTO) 0 % (0-10); EOSINOPHILS # (AUTO) 0.8 10^3/uL (0.0-0.3); EOSINOPHILS % (AUTO) 10 % (0-10); HEMATOCRIT 32 % (40-54); HEMOGLOBIN 9.3 G/DL (13.3-17.7); LYMPHOCYTES # (AUTO) 1.3 X 10^3 (1.0-4.0); LYMPHOCYTES % (AUTO) 16 % (12-44); MEAN CORPUSCULAR HEMOGLOBIN 24 PG (25-34); MEAN CORPUSCULAR HGB CONC 29 G/DL (32-36); MEAN CORPUSCULAR VOLUME 82 FL (80-99); MEAN PLATELET VOLUME 9.6 FL (7.4-10.4); MONOCYTES # (AUTO) 0.6 X 10^3 (0.0-1.0); MONOCYTES % (AUTO) 7 % (0-12); NEUTROPHILS # (AUTO) 5.3 X 10^3 (1.8-7.8); NEUTROPHILS % (AUTO) 67 % (42-75); PLATELET COUNT 221 10^3/uL (130-400); RED CELL DISTRIBUTION WIDTH 18.4 % (10.0-14.5)
[2018-08-14 10:43] LABS: ALBUMIN 3.4 GM/DL (3.2-4.5); BILIRUBIN,TOTAL 0.4 MG/DL (0.1-1.0); CALCIUM 8.6 MG/DL (8.5-10.1); CREATININE SERUM 1.24 MG/DL (0.60-1.30); POTASSIUM 4.4 MMOL/L (3.6-5.0)
[2018-11-05 11:25] LABS: BASOPHILS % (AUTO) 0 % (0-10); EOSINOPHILS # (AUTO) 0.2 10^3/uL (0.0-0.3); EOSINOPHILS % (AUTO) 3 % (0-10); HEMATOCRIT 25 % (40-54); LYMPHOCYTES # (AUTO) 1.1 X 10^3 (1.0-4.0); LYMPHOCYTES % (AUTO) 12 % (12-44); MEAN CORPUSCULAR HEMOGLOBIN 20 PG (25-34); MEAN CORPUSCULAR HGB CONC 25 G/DL (32-36); MEAN CORPUSCULAR VOLUME 79 FL (80-99); MEAN PLATELET VOLUME 9.3 FL (7.4-10.4); MONOCYTES # (AUTO) 0.7 X 10^3 (0.0-1.0); MONOCYTES % (AUTO) 8 % (0-12); NEUTROPHILS # (AUTO) 7.7 X 10^3 (1.8-7.8); NEUTROPHILS % (AUTO) 78 % (42-75); PLATELET COUNT 263 10^3/uL (130-400); RED CELL DISTRIBUTION WIDTH 21.5 % (10.0-14.5); WHITE BLOOD COUNT 9.8 10^3/uL (4.3-11.0)
[2018-11-05 11:27] LABS: HEMOGLOBIN 6.4 G/DL (13.3-17.7)
[2018-11-05 11:42] LABS: ALBUMIN 3.5 GM/DL (3.2-4.5); BILIRUBIN,TOTAL 0.8 MG/DL (0.1-1.0); CALCIUM 8.7 MG/DL (8.5-10.1); CREATININE SERUM 1.33 MG/DL (0.60-1.30); POTASSIUM 4.7 MMOL/L (3.6-5.0); TOTAL PROTEIN 6.3 GM/DL (6.4-8.2)
[~2018-11-06 09:48] MED LIST changes: +LEUPROLIDE 22.5 MG SYRIN(ELIGARD) SQ SCH
[2018-11-06] MEDS ORDERED: NS (IVPB) CANCER CENTER 250 ML ONE (12:45)
== END 2018-11-12 | disposition home or self-care (01) ==
LOC: ONC 09:48
PROVIDERS: ATTEND Internal Medicine Hematology & Oncology
DX: C61 Malignant neoplasm of prostate (principal); D64.9 Anemia, unspecified; E11.51 Type 2 diabetes mellitus with diabetic peripheral angiopathy without gangrene; I10 Essential (primary) hypertension; E03.9 Hypothyroidism, unspecified; I25.10 Atherosclerotic heart disease of native coronary artery without angina pectoris; I73.9 Peripheral vascular disease, unspecified; Z79.82 Long term (current) use of aspirin; Z79.899 Other long term (current) drug therapy; Z92.3 Personal history of irradiation
CPT/HCPCS: 36415; 36430; 80053; 82728; 83540; 84153; 85025; 86850; 86900; 86901; 86920; 96402

== ENCOUNTER 2018-11-21 15:56 | Outpatient (CLI) | payer MEDICARE ==
[~2018-11-21] VITALS: Ht 179.1 cm; Wt 113.4 kg
[~2018-11-21 15:56] MED LIST changes: -LEUPROLIDE 22.5 MG SYRIN(ELIGARD) SQ SCH
[2018-11-21] MEDS ORDERED: FURO20TA4 PO (16:40)
[2018-11-21] MEDS ORDERED: POTA10TA10 PO (16:40)
== END 2018-11-21 16:42 | disposition home or self-care (01) ==
LOC: PREOP 15:56
PROVIDERS: ATTEND Surgery
DX: Z01.818 Encounter for other preprocedural examination (principal)

== ENCOUNTER 2018-11-26 10:29 | Day surgery (SDC) | payer MEDICARE ==
[~2018-11-26] VITALS: Ht 179.1 cm; Wt 113.4 kg
[~2018-11-26 10:29] MED LIST changes: +FURO20TA4 PO; +POTA10TA10 PO
--- NOTE | 2018-11-26 10:43 | Progress Note-Pre Operative ---
Pre-Operative Progress Note H&P Reviewed The H&P was reviewed, patient examined and no changes noted. Date Seen by Provider: Nov 26, 2018 Time Seen by Provider: 10:43 Date H&P Reviewed: Nov 26, 2018 Time H&P Reviewed: 10:43 Pre-Operative Diagnosis: iron def anemia RODOLFO RICO DO Nov 26, 2018 10:43
[2018-11-26] MEDS ORDERED: LACTATED RINGERS 1,000 ML IV STA (10:44)
[2018-11-26] MEDS ORDERED: HURRICAINE EXT TUBE (BENZOCAINE) XX PRN (10:45)
[2018-11-26] MEDS ORDERED: LACTATED RINGERS 1,000 ML IV ONE (10:48)
[2018-11-26] MEDS ORDERED: PROPOFOL INJECTION 50 ML IV ONE (11:04)
[2018-11-26] MEDS ORDERED: MIDAZOLAM 2 MG/2 ML (VERSED) VIAL ONE (11:05)
--- OUTSIDE RECORDS SUMMARY | 2018-11-26 11:10 | XMS REPORT | CCD ---
Author Author Dorene Sanchez Organization [facility] Address [address] [place] [address] Phone Care Team Providers Care Senior Writer Name Role Phone PP Unavailable CCM Unavailable Summary Purpose Interface Exchange Insurance Providers Payer name Policy type / Coverage type Covered green party ID Effective Begin Date Effective End Date WPS Medicare Part B Medicare Part B [id number] Unknown Unknown Family history Father Diagnosis Age At Onset Stroke Unknown Mother Diagnosis Age At Onset Stroke Unknown Diabetes mellitus Type 2 Unknown Social History Social History Element Codes Description Effective Dates Tobacco history SNOMED CT: 185920318 Currently uses smokeless tobacco Chews 05/04/2016 Marital status Unknown 01/26/2015 Number of children Unknown 3 01/26/2015 Employment Unknown Retired 01/26/[address]: 487885369 Never drinks alcohol quit in July 2014 01/26/2015 Allergies, Adverse Reactions, Alerts Substance Reaction Codes Entered Date Inactivated Date Status * NO KNOWN FOOD ALLERGIES Unknown 01/26/2015 No Inactive Date Active * NO KNOWN DRUG ALLERGIES Unknown 01/26/2015 No Inactive Date Active Past Medical History Illness Codes Condition Status Onset Date Resolved Date Cellulitis of left lower limb ICD-9: 682.6 ICD-10: L03.116 Active 03/22/2017 Unknown Cellulitis of right lower limb ICD-9: 682.6 ICD-10: L03.115 Active 10/10/2018 Unknown Localized edema ICD-9 : 782.3 ICD-10: R60.0 Active 03/22/2017 Unknown Chronic obstructive pulmonary disease, unspecified ICD-9: 496 ICD-10: J44.9 Active 10/04/2018 Unknown Weakness ICD-9: 780.79 ICD-10: R53.1 Active 10/14/2018 Unknown Essential (primary) hypertension ICD-9: 401.1 ICD-10: I10 Active 11/08/2017 Unknown Hypoxemia ICD-9: 799.02 ICD-10: R09.02 Active 10/04/2018 Unknown Malignant neoplasm of prostate ICD-9: 185 ICD-10: C61 Active 02/25/2018 Unknown Type 2 diabetes mellitus with foot ulcer ICD-9: 250.80 ICD-10: E11.621 Active 05/03/2017 Unknown Type 2 diabetes mellitus with hyperglycemia ICD-9: 250.00 ICD-10: E11.65 Active 12/06/2016 Unknown Generalized abdominal pain ICD-9: 789.07 ICD-10: R10.84 Active 02/20/2018 Unknown Gross hematuria ICD-9 : 599.71 ICD-10: R31.0 Active 02/20/2018 Unknown Unspecified jaundice ICD-9: 782.4 ICD-10: R17 Active 02/20/2018 Unknown Chronic kidney disease, stage 3 (moderate) ICD-9: 585.3 ICD-10: N18.3 Active 01/25/2015 Unknown Chronic pain syndrome ICD-9: 338.4 ICD-10: G89.4 Active 01/25/2015 Unknown Encounter for immunization ICD-9: V03.82 ICD-10: Z23 Active 02/05/2018 Unknown Encounter for screening for malignant neoplasm of prostate ICD-9: V76.44 ICD-10: Z12.5 Active 02/05/2018 Unknown Other specified hypothyroidism ICD-9: 244.9 ICD-10: E03.8 Active 01/25/2015 Unknown Encounter for general adult medical examination with abnormal findings ICD-9: V70.0 ICD-10: Z00.01 Active 11/30/2016 Unknown Essential (primary) hypertension ICD-9: 401.9 ICD-10: I10 Active 01/25/2015 Unknown Chronic gout due to renal impairment, left ankle and foot, without tophus (tophi) ICD-9: 274.19 ICD-10: M1A.3720 Active 03/22/2017 Unknown Dysuria ICD-9: 788.1 ICD-10: R30.0 Active 03/21/2017 Unknown Diabetes Unknown Active 03/08/2017 Unknown Encounter for immunization ICD-9: V03.9 ICD-10: Z23 Active 11/30/2016 Unknown Vitamin B12 deficiency anemia due to intrinsic factor deficiency ICD-9: 281.0 ICD-10: D51.0 Active 05/03/2016 Unknown Hypertension Unknown Active 01/26/2015 Unknown Hypothryroidism Unknown Active 01/26/2015 Unknown ANEMIA ICD-9: 285.9 Active 01/25/2015 Unknown CHRONIC PAIN SYNDROME ICD-9: 338.4 Active 01/25/2015 Unknown Chronic renal insufficiency, stage III (moderate) ICD-9: 585.3 Active 01/25/2015 Unknown ESSENTIAL HYPERTENSION ICD-9: 401.9 Active 01/25/2015 Unknown GOUT ICD-9: 274.9 Active 01/25/2015 Unknown HYPOTHYROIDISM ICD-9: 244.9 Active 01/25/2015 Unknown Vitamin B12 deficiency ICD-9: 266.2 Active 01/25/2015 Unknown Problems Condition Codes Effective Dates Condition Status Cellulitis of left lower limb ICD-9: 682.6 ICD-10: L03.116 03/22/2017 Active Cellulitis of right lower limb ICD-9: 682.6 ICD-10: L03.115 10/10/2018 Active Localized edema ICD-9 : 782.3 ICD-10: R60.0 03/22/2017 Active Chronic obstructive pulmonary disease, unspecified ICD-9: 496 ICD-10: J44.9 10/04/2018 Active Weakness ICD-9: 780.79 ICD-10: R53.1 10/14/2018 Active Essential (primary) hypertension ICD-9: 401.1 ICD-10: I10 11/08/2017 Active Hypoxemia ICD-9: 799.02 ICD-10: R09.02 10/04/2018 Active Malignant neoplasm of prostate ICD-9: 185 ICD-10: C61 02/25/2018 Active Type 2 diabetes mellitus with foot ulcer ICD-9: 250.80 ICD-10: E11.621 05/03/2017 Active Type 2 diabetes mellitus with hyperglycemia ICD-9: 250.00 ICD-10: E11.65 12/06/2016 Active Generalized abdominal pain ICD-9: 789.07 ICD-10: R10.84 02/20/2018 Active Gross hematuria ICD-9 : 599.71 ICD-10: R31.0 02/20/2018 Active Unspecified jaundice ICD-9: 782.4 ICD-10: R17 02/20/2018 Active Chronic kidney disease, stage 3 (moderate) ICD-9: 585.3 ICD-10: N18.3 01/25/2015 Active Chronic pain syndrome ICD-9: 338.4 ICD-10: G89.4 01/25/2015 Active Encounter for immunization ICD-9: V03.82 ICD-10: Z23 02/05/2018 Active Encounter for screening for malignant neoplasm of prostate ICD-9: V76.44 ICD-10: Z12.5 02/05/2018 Active Other specified hypothyroidism ICD-9: 244.9 ICD-10: E03.8 01/25/2015 Active Encounter for general adult medical examination with abnormal findings ICD-9: V70.0 ICD-10: Z00.01 11/30/2016 Active Essential (primary) hypertension ICD-9: 401.9 ICD-10: I10 01/25/2015 Active Chronic gout due to renal impairment, left ankle and foot, without tophus (tophi) ICD-9: 274.19 ICD-10: M1A.3720 03/22/2017 Active Dysuria ICD-9: 788.1 ICD-10: R30.0 03/21/2017 Active Diabetes Unknown 03/08/2017 Active Encounter for immunization ICD-9: V03.9 ICD-10: Z23 11/30/2016 Active Vitamin B12 deficiency anemia due to intrinsic factor deficiency ICD-9: 281.0 ICD-10: D51.0 05/03/2016 Active Hypertension Unknown 01/26/2015 Active Hypothryroidism Unknown 01/26/2015 Active ANEMIA ICD-9: 285.9 01/25/2015 Active CHRONIC PAIN SYNDROME ICD-9: 338.4 01/25/2015 Active Chronic renal insufficiency, stage III (moderate) ICD-9: 585.3 01/25/2015 Active ESSENTIAL HYPERTENSION ICD-9: 401.9 01/25/2015 Active GOUT ICD-9: 274.9 01/25/2015 Active HYPOTHYROIDISM ICD-9: 244.9 01/25/2015 Active Vitamin B12 deficiency ICD-9: 266.2 01/25/2015 Active Medications Medication Codes Instructions Start Date Stop Date Status Fill Instructions oxycodone 20 mg tablet RxNorm: 3185476 1/2 Tablet(s) PO Q6 as needed 11/12/2018 12/11/2018 Active gabapentin 100 mg capsule RxNorm: 508414 1 Capsule(s) BID 11/0505/03/2019 Active potassium chloride ER 10 mEq tablet,extended release RxNorm: 614000 TAKE ONE TABLET BY MOUTH DAILY 11/04/20182018 Active Probiotic 10 billion cell capsule RxNorm: 1451622 1 Capsule(s) PO BID 10/25/2018 10/24/2018 Inactive Keflex 500 mg capsule RxNorm: 657155 1 Capsule(s) PO QID 201810/31/2018 Inactive Probiotic 10 billion cell capsule RxNorm: 2970323 1 Capsule(s) PO BID 10/25/2018 10/31/2018 Inactive oxycodone 20 mg tablet RxNorm: 2286567 1/2 Tablet(s) PO Q6 as needed 10/14/2018 11/11/2018 Inactive Lasix 20 mg tablet RxNorm: 497147 1 Tablet(s) PO BID 201804/07/2019 Active Keflex 500 mg capsule RxNorm: 610384 1 Capsule(s) PO TID 201810/19/2018 Inactive potassium chloride ER 10 mEq tablet,extended release RxNorm: 097592 1 Tablet(s) PO daily 10/10/2018 11/03/2018 Inactive albuterol sulfate 2.5 mg/3 mL (0.083 %) solution for nebulization RxNorm: 031222 1 Milliliter(s) INH TID DX J44.9 10/04/2018 01/31/2019 Active gabapentin 100 mg capsule RxNorm: 201118 TAKE ONE CAPSULE BY MOUTH IN THE EVENING AT 5PM 09/24/2018 11/04/2018 Inactive oxycodone 20 mg tablet RxNorm: 3258850 1/2 Tablet(s) PO Q6 as needed 09/12/2018 10/11/2018 Inactive oxycodone 20 mg tablet RxNorm: 1436799 1/2 Tablet(s) PO Q6 as needed 08/15/2018 09/11/2018 Inactive oxycodone 20 mg tablet RxNorm: 2594568 1/2 Tablet(s) PO Q6 as needed 07/16/2018 08/14/2018 Inactive oxycodone 20 mg tablet RxNorm: 2731548 1/2 Tablet(s) PO Q6 as needed 06/14/2018 07/13/2018 Inactive gabapentin 100 mg capsule RxNorm: 644102 TAKE ONE CAPSULE BY MOUTH IN THE EVENING AT 5PM 05/30/2018 09/23/2018 Inactive oxycodone 20 mg tablet RxNorm: 6620842 1/2 Tablet(s) PO Q6 as needed 05/15/2018 06/13/2018 Inactive oxycodone 20 mg tablet RxNorm: 0964323 1/2 Tablet(s) PO Q6 as needed 04/12/2018 05/11/2018 Inactive oxycodone 20 mg tablet RxNorm: 1995589 1/2 Tablet(s) PO Q6 as needed 03/11/2018 04/09/2018 Inactive levothyroxine 200 mcg tablet RxNorm: 265380 1 Tablet(s) PO daily 02/21/2018 02/15/2019 Active Cipro 500 mg tablet RxNorm: 656084 1 Tablet(s) PO BID 201702/20/2018 Inactive levothyroxine 200 mcg tablet RxNorm: 370262 1 Tablet(s) PO daily 02/21/2018 02/20/2018 Inactive Cipro 500 mg tablet RxNorm: 052270 1 Tablet(s) PO BID 201703/02/2018 Inactive oxycodone 20 mg tablet RxNorm: 8899393 1/2 Tablet(s) PO Q6 as needed 02/12/2018 03/10/2018 Inactive oxycodone 20 mg tablet RxNorm: 6187150 1/2 Tablet(s) PO Q6 as needed 01/16/2018 02/11/2018 Inactive gabapentin 100 mg capsule RxNorm: 988442 TAKE ONE CAPSULE BY MOUTH IN THE EVENING AT 5PM 01/15/2018 05/29/2018 Inactive bisoprolol 5 mg-hydrochlorothiazide 6.25 mg tablet RxNorm: 955449 TAKE ONE TABLET BY MOUTH DAILY 01/01/2018 12/26/2018 Active oxycodone 20 mg tablet RxNorm: 0888064 1/2 Tablet(s) PO Q6 as needed 12/20/2017 01/14/2018 Inactive oxycodone 20 mg tablet RxNorm: 1370487 1/2 Tablet(s) PO Q6 as needed 11/20/2017 12/19/2017 Inactive Victoza 2-Dino 0.6 mg/0.1 mL (18 mg/3 mL) subcutaneous pen injector RxNorm: 151652 1.2 Milligram(s) SQ daily 11/08/201712/07 Inactive oxycodone 20 mg tablet RxNorm: 5879985 1/2 Tablet(s) PO Q6 as needed 10/19/2017 11/17/2017 Inactive gabapentin 100 mg capsule RxNorm: 475440 1 Capsule(s) PO QPM at 5 pm 09/20/2017 01/14/2018 Inactive Lasix 20 mg tablet RxNorm: 934454 1 Tablet(s) QAM at 5pm 12/201703/18/2018 Inactive oxycodone 20 mg tablet RxNorm: 0167511 1/2 Tablet(s) PO Q6 as needed 09/18/2017 10/17/2017 Inactive oxycodone 20 mg tablet RxNorm: 6878563 1/2 Tablet(s) PO Q6 as needed 08/14/2017 09/12/2017 Inactive ketoconazole 2 % topical cream RxNorm: 865449 1 Gram(s) TOP BID to affected area until healed 08/03/2017 No Stop Date Active oxycodone 20 mg tablet RxNorm: 0460680 1/2 Tablet(s) PO Q6 as needed 07/17/2017 08/13/2017 Inactive pen needle, diabetic 31 gauge x 5/16" RxNorm: 1 Unit Dose Miscellaneous daily 06/25/2017 03/21/2018 Inactive daily use with victoza Bactrim DS 800 mg-160 mg tablet RxNorm: 690069 1 Tablet(s) PO BID Dr Norwood 06/25/2017 07/04/2017 Inactive Victoza 2-Dino 0.6 mg/0.1 mL (18 mg/3 mL) subcutaneous pen injector RxNorm: 626672 0.6 Milligram(s) SQ daily 06/25/201707/24 Inactive doxycycline hyclate 100 mg tablet RxNorm: 540511 1 Tablet(s) PO BID Dr Norwood 06/21/2017 06/30/2017 Inactive oxycodone 20 mg tablet RxNorm: 0252374 1/2 Tablet(s) PO Q6 as needed 06/14/2017 07/13/2017 Inactive clindamycin 150 mg capsule RxNorm: 481234 1 Capsule(s) PO Q8 06/16/2017 Inactive levothyroxine 175 mcg tablet RxNorm: 559851 TAKE ONE TABLET BY MOUTH DAILY 06/04/2017 09/01/2017 Inactive levothyroxine 175 mcg tablet RxNorm: 946217 TAKE ONE TABLET BY MOUTH DAILY 06/04/2017 11/30/2017 Inactive bisoprolol 5 mg-hydrochlorothiazide 6.25 mg tablet RxNorm: 467102 TAKE ONE TABLET BY MOUTH DAILY 05/24/2017 11/19/2017 Inactive oxycodone 20 mg tablet RxNorm: 5475918 1/2 Tablet(s) PO Q6 as needed 05/14/2017 06/12/2017 Inactive potassium chloride ER 10 mEq capsule,extended release RxNorm: 722138 TAKE ONE CAPSULE BY MOUTH DAILY NEEDED FOR 5 DAYS THEN NEEDED WITH LASIX 04/17/2017 10/13/2017 Inactive Lasix 20 mg tablet RxNorm: 133423 TAKE ONE TABLET BY MOUTH DAILY NEEDED 04/17/2017 09/19/2017 Inactive oxycodone 20 mg tablet RxNorm: 8495984 1/2 Tablet(s) PO Q6 as needed 04/12/2017 05/11/2017 Inactive Colcrys 0.6 mg tablet RxNorm: 207681 2 tabs at onset then may repeat 1 tab in 1 hours if needed- Tablet(s) PO 04/09/2017 No Stop Date Active then take daily until gout resolved Bactrim DS 800 mg-160 mg tablet RxNorm: 108285 1 Tablet(s) PO BID 04/09/2017 04/08/2017 Inactive dc levaquin Bactrim DS 800 mg-160 mg tablet RxNorm: 939984 1 Tablet(s) PO BID 04/09/2017 04/15/2017 Inactive dc levaquin Levaquin 500 mg tablet RxNorm: 415792 1 Tablet(s) PO daily 04/02/2017 Inactive Levaquin 500 mg tablet RxNorm: 611021 1 Tablet(s) PO daily 06/06/2017 Inactive indomethacin 25 mg capsule RxNorm: 455192 1 Capsule(s) PO TID PRN 03/22/2017 03/22/2017 Inactive Lasix 20 mg tablet RxNorm: 669298 1 Tablet(s) PO QDAY PRN 02/201704/16/2017 Inactive daily x 5 days then as needed Levaquin 500 mg tablet RxNorm: 236763 1 Tablet(s) PO daily 02/201703/31/2017 Inactive potassium chloride ER 10 mEq capsule,extended release RxNorm: 788419 1 Capsule(s) PO QDAY PRN 03/22/2017 04/16/2017 Inactive daily x 5 days then as needed with lasix oxycodone 20 mg tablet RxNorm: 7687682 1/2 Tablet(s) PO Q6 as needed 03/08/2017 04/06/2017 Inactive bisoprolol 5 mg-hydrochlorothiazide 6.25 mg tablet RxNorm: 901795 TAKE ONE TABLET BY MOUTH DAILY 02/14/2017 05/14/2017 Inactive oxycodone 20 mg tablet RxNorm: 6432260 1/2 Tablet(s) PO Q6 as needed 02/08/2017 03/07/2017 Inactive oxycodone 20 mg tablet RxNorm: 9638562 1/2 Tablet(s) PO Q6 as needed 01/08/2017 02/06/2017 Inactive levothyroxine 175 mcg tablet RxNorm: 232356 1 Tablet(s) PO daily 12/06/2016 06/03/2017 Inactive [SAVINGS FOR NON-COVERED DRUGS -- BIN:[id number], PCN: ASPROD1, Group: XXXXX, ID# [id number], Questions: . THIS IS NOT INSURANCE.] oxycodone 20 mg tablet RxNorm: 8081836 1/2 Tablet(s) PO Q6 as needed 12/04/2016 01/02/2017 Inactive oxycodone 20 mg tablet RxNorm: 1143736 1/2 Tablet(s) PO Q6 as needed 11/09/2016 12/03/2016 Inactive bisoprolol 5 mg-hydrochlorothiazide 6.25 mg tablet RxNorm: 313923 TAKE ONE TABLET BY MOUTH DAILY 11/08/2016 02/05/2017 Inactive oxycodone 20 mg tablet RxNorm: 8632174 1/2 Tablet(s) PO Q6 as needed 10/05/2016 11/03/2016 Inactive oxycodone 20 mg tablet RxNorm: 9366274 1/2 Tablet(s) PO Q6 as needed 09/06/2016 10/04/2016 Inactive oxycodone 20 mg tablet RxNorm: 7991209 1/2 Tablet(s) PO Q6 as needed 08/07/2016 09/05/2016 Inactive oxycodone 20 mg tablet RxNorm: 5960181 1/2 Tablet(s) PO Q6 as needed 07/04/2016 08/06/2016 Inactive oxycodone 20 mg tablet RxNorm: 5740765 1/2 Tablet(s) PO Q6 as needed 05/29/2016 07/03/2016 Inactive levothyroxine 150 mcg tablet RxNorm: 306110 1 Tablet(s) PO daily 04/10/2016 04/09/2016 Inactive [SAVINGS FOR NON-COVERED DRUGS -- BIN:[id number], PCN: ASPROD1, Group: XXXXX, ID# [id number], Questions: . THIS IS NOT INSURANCE.] oxycodone 20 mg tablet RxNorm: 8469577 1/2 Tablet(s) PO Q6 as needed 04/10/2016 05/28/2016 Inactive levothyroxine 150 mcg tablet RxNorm: 779165 1 Tablet(s) PO daily 04/10/2016 10/06/2016 Inactive [SAVINGS FOR NON-COVERED DRUGS -- BIN:[id number], PCN: ASPROD1, Group: XXXXX, ID# [id number], Questions: . THIS IS NOT INSURANCE.] bisoprolol 5 mg-hydrochlorothiazide 6.25 mg tablet RxNorm: 435898 1 Tablet(s) PO daily 02/16/2016 12/31/2017 Inactive oxycodone 20 mg tablet RxNorm: 9581649 1/2 Tablet(s) PO Q6 as needed 02/16/2016 04/09/2016 Inactive oxycodone 20 mg tablet RxNorm: 2759529 1/2 Tablet(s) PO Q6 as needed 01/04/2016 02/15/2016 Inactive bisoprolol 5 mg-hydrochlorothiazide 6.25 mg tablet RxNorm: 509216 1 Tablet(s) PO daily 11/19/2015 01/17/2016 Inactive bisoprolol 5 mg-hydrochlorothiazide 6.25 mg tablet RxNorm: 002566 1 Tablet(s) PO daily 11/04/2015 11/18/2015 Inactive oxycodone 20 mg tablet RxNorm: 6154979 1/2 Tablet(s) PO Q6 as needed 10/27/2015 01/03/2016 Inactive levothyroxine 150 mcg tablet RxNorm: 616571 1 Tablet(s) PO daily 08/26/2015 02/21/2016 Inactive [SAVINGS FOR NON-COVERED DRUGS -- BIN:[id number], PCN: ASPROD1, Group: XXXXX, ID# [id number], Questions: . THIS IS NOT INSURANCE.] bisoprolol 5 mg-hydrochlorothiazide 6.25 mg tablet RxNorm: 418316 1 Tablet(s) PO daily 08/26/2015 10/24/2015 Inactive oxycodone 10 mg tablet RxNorm: 7803160 1 Tablet(s) PO Q6 as needed 05/06/2015 10/26/2015 Inactive levothyroxine 150 mcg tablet RxNorm: 458893 1 Tablet(s) PO daily 02/05/2015 08/03/2015 Inactive [SAVINGS FOR NON-COVERED DRUGS -- BIN:112674, PCN: ASPROD1, Group: XXXXX, ID# [id number], Questions: . THIS IS NOT INSURANCE.] Vitamin D2 50,000 unit capsule RxNorm: 239319 1 Capsule(s) PO weekly 02/05/2015 05/05/2015 Inactive [SAVINGS FOR NON-COVERED DRUGS -- BIN:691889, PCN: ASPROD1, Group: XXXXX, ID# [id number], Questions: . THIS IS NOT INSURANCE.] Vitamin D2 50,000 unit capsule RxNorm: 213184 1 Capsule(s) PO weekly 02/05/2015 02/04/2015 Inactive bisoprolol 5 mg-hydrochlorothiazide 6.25 mg tablet RxNorm: 070187 1 Tablet(s) PO daily 01/26/2015 02/24/2015 Inactive levothyroxine 200 mcg tablet RxNorm: 591695 1 Tablet(s) PO daily 01/26/2015 01/25/2015 Inactive levothyroxine 200 mcg tablet RxNorm: 566742 1 Tablet(s) PO every other day 01/26/2015 02/04/2015 Inactive [SAVINGS FOR NON-COVERED DRUGS -- BIN:117035, PCN: ASPROD1, Group: XXXXX, ID# [id number], Questions: . THIS IS NOT INSURANCE.] aspirin 81 mg chewable tablet RxNorm: 928370 1 Tablet(s) PO daily No Start Date Active Plavix 75 mg tablet RxNorm: 515001 1 Tablet(s) PO daily manage by Dr Baig No Start Date Active simvastatin 40 mg tablet RxNorm: 495617 1 Tablet(s) PO QHS managed by Dr Baig No Start Date Active Colcrys 0.6 mg tablet RxNorm: 548442 2 tabs at onset then may repeat 1 tab in 1 hours if needed- Tablet(s) PO No Start Date 04/08/2017 Inactive then take daily until gout resolved aspirin 325 mg tablet RxNorm: 166405 1 Tablet(s) PO daily No Start Date 05/03/2016 Inactive levothyroxine 75 mcg tablet RxNorm: 075802 1 Tablet(s) PO every other day No Start Date 02/04/2015 Inactive takes qod with 200mcg oxycodone 10 mg tablet RxNorm: 2710255 1 Tablet(s) PO Q6 as needed No Start Date 05/05/2015 Inactive ketoconazole 2 % topical cream RxNorm: 873753 1 Gram(s) TOP BID to affected area until healed No Start Date 08/02/2017 Inactive indomethacin oral RxNorm: 5781 oral No Start Date 03/21/2017 Inactive Medication Administered No Medication Administered data Immunizations Vaccine Codes Date Status Pneumococcal (Adult) CVX: 33 02/05/2018 completed Pneumococcal (Adult) CVX: 133 11/30/2016 completed Assessments Condition Codes Effective Dates Cellulitis of left lower limb ICD-10: L03.116 ICD-9: 682.6 10/18/2018 Cellulitis of right lower limb ICD-10: L03.115 ICD-9: 682.6 10/18/2018 Localized edema ICD-10: R60.0 ICD-9: 782.3 10/18/2018 Weakness ICD-10: R53.1 ICD-9: 780.79 10/14/2018 Chronic obstructive pulmonary disease, unspecified ICD-10: J44.9 ICD-9: 496 10/14/2018 Malignant neoplasm of prostate ICD-10: C61 ICD-9: 185 10/04/2018 Essential (primary) hypertension ICD-10: I10 ICD-9: 401.1 10/04/2018 Type 2 diabetes mellitus with foot ulcer ICD-10: E11.621 ICD-9: 250.80 10/04/2018 Hypoxemia ICD-10: R09.02 ICD-9: 799.02 10/04/2018 Type 2 diabetes mellitus with hyperglycemia ICD-10: E11.65 ICD-9: 250.00 08/29/2018 Unspecified jaundice ICD-10: R17 ICD-9: 782.4 02/20/2018 Gross hematuria ICD-10: R31.0 ICD-9: 599.71 02/20/2018 Generalized abdominal pain ICD-10: R10.84 ICD-9: 789.07 02/20/2018 Encounter for screening for malignant neoplasm of prostate ICD-10: Z12.5 ICD-9: V76.44 02/05/2018 Chronic pain syndrome ICD-10: G89.4 ICD-9: 338.4 02/05/2018 Other specified hypothyroidism ICD-10: E03.8 ICD-9: 244.9 02/05/2018 Chronic kidney disease, stage 3 (moderate) ICD-10: N18.3 ICD-9: 585.3 02/05/2018 Encounter for immunization ICD-10: Z23 ICD-9: V03.82 02/05/2018 Encounter for general adult medical examination with abnormal findings ICD-10: Z00.01 ICD-9: V70.0 11/30/2017 Essential (primary) hypertension ICD-10: I10 ICD-9: 401.9 09/20/2017 Chronic gout due to renal impairment, left ankle and foot, 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) ICD-10: M1A.3720 ICD-9: 274.19 03/22/2017 Dysuria ICD-10: R30.0 ICD-9: 788.1 03/22/2017 Encounter for immunization ICD-10: Z23 ICD-9: V03.9 11/30/2016 Vitamin B12 deficiency anemia due to intrinsic factor deficiency ICD-10: D51.0 ICD-9: 281.0 05/04/2016 Vitamin B12 deficiency ICD-9: 266.2 01/26 ESSENTIAL HYPERTENSION ICD-9: 401.9 01/26 HYPOTHYROIDISM ICD-9: 244.9 01/26/2015 GOUT ICD-9: 274.9 01/26/2015 ANEMIA ICD-9: 285.9 01/26/2015 Chronic renal insufficiency, stage III (moderate) ICD-9: 585.3 01/26/2015 CHRONIC PAIN SYNDROME ICD-9: 338.4 2014 Reason For Visit Reason For Visit Effective Dates Notes lower leg pain 10/18/2018 lower leg pain 10/14/2018 lower leg pain 10/10/2018 diabetic foot exam 10/04/2018 diabetes mellitus 08/29/2018 abdominal pain 02/25/2018 abdominal pain 02/20/2018 diabetes mellitus 02/05/2018 Annual Medicare Wellness Exam 11/30/2017 diabetes mellitus 11/08/2017 diabetes mellitus 09/20/2017 improving cellulitis 06/25/2017 improving cellulitis 06/07/2017 improving cellulitis 05/03/2017 improving cellulitis 04/02/2017 improving cellulitis 03/26/2017 improving cellulitis 03/22/2017 diabetes mellitus 03/08/2017 diabetes mellitus 12/06/2016 Annual Medicare Wellness Exam 11/30/2016 hypertension 11/28/2016 hypertension 05/04/2016 medication follow up 11/04/2015 medication follow up 07/30/2015 knee pain 01/26/2015 Dr. Tellez did scopes 12 years ago Results Observation Observation Code Item Item Code Result Date %Hba1C Vcc285 % HbA1c 38080-0 6.4 % 08/30/2018 %Hba1C Rux753 Gluc Ave 137 mg/dL 08/30/2018 Culture Urine [id number] URINE CULTURE SEE NOTES 02/22/2018 Urine Culture Ucult Complete Growth of aerobe sent to ref lab 02/21/2018 Cbc With Differential Ord2 WBC 7.41 K/ul 02/20/2018 Cbc With Differential Ord2 RBC 4.70 M/ul 02/20/2018 Cbc With Differential Ord2 HGB 11.5 g/dl 02/20/2018 Cbc With Differential Ord2 HCT 38.1 % 02/20/2018 Cbc With Differential Ord2 Neut% 75.0 % 02/20/2018 Cbc With Differential Ord2 MCV 81.1 fl 02/20/2018 Cbc With Differential Ord2 Lymph% 10.9 % 02/20/2018 Cbc With Differential Ord2 MCH 24.5 pg 02/20/2018 Cbc With Differential Ord2 [place]% 8.9 % 02/20/2018 Cbc With Differential Ord2 MCHC 30.2 pg 02/20/2018 Cbc With Differential Ord2 Eos% 5.1 % 02/20/2018 Cbc With Differential Ord2 PLT 206 K/ul 02/20/2018 Cbc With Differential Ord2 Baso% 0.1 % 02/20/2018 Cbc With Differential Ord2 RDW 20.9 % 02/20/2018 Cbc With Differential Ord2 Neut ABS# 5.55 K/ul 02/20/2018 Cbc With Differential Ord2 Lymph ABS# 0.81 K/ul 02/20/2018 Cbc With Differential Ord2 [place] ABS# 0.7 K/ul 02/20/2018 Cbc With Differential Ord2 Eos ABS# 0.4 K/ul 02/20/2018 Cbc With Differential Ord2 Baso ABS# 0.0 K/ul 02/20/2018 %Hba1C Zvl424 % HbA1c 65995-6 7.7 % 02/20/2018 %Hba1C Bmu302 Gluc Ave 174 mg/dL 02/20/2018 Lipase Sng340 LIPASE 17 U/L 02/20/2018 Microalbumin Has473 MicroAlb 6.5 mg/dL 02/20/2018 Amylase Ord34 AMYLASE 15 U/L 02/20/2018 Free T4 Ldl153 FREE T4 0.61 ng/dL 02/20/2018 Lipid Ord30 CHOL 203 mg/dL 02/20/2018 Lipid Ord30 HDL 7.0 mg/dl 02/20/2018 Lipid Ord30 TRIG 271 mg/dL 02/20/2018 Lipid Ord30 LDL 142 mg/dL 02/20/2018 Lipid Ord30 C/HDL 29.0 Ratio 02/20/2018 Comp Metabolic Yfy339 NA 134 mEq/L 02/20/2018 Comp Metabolic Mfo767 K 3.6 mEq/L 02/20/2018 Comp Metabolic Zjy578 CL 96 mEq/L 02/20/2018 Comp Metabolic Ega461 CO2 29.0 mEq/L 02/20/2018 Comp Metabolic Qxb492 ANION GAP 13 02/20/2018 Comp Metabolic Bnx018 GLUCOSE 165 mg/dL 02/20/2018 Comp Metabolic Iff083 Creat 1.2 mg/dL 02/20/2018 Comp Metabolic Zla299 eGFR 63 ml/min/1.73m2 02/20/2018 Comp Metabolic Giv330 BUN 14 mg/dL 02/20/2018 Comp Metabolic Sbh845 B/C Ratio 11.6 Ratio 02/20/2018 Comp Metabolic Qmc385 CALCIUM 8.5 mg/dL 02/20/2018 Comp Metabolic Roi574 ALK PHOS 633 U/L 02/20/2018 Comp Metabolic Cda937 AST(SGOT) 112 U/L 02/20/2018 Comp Metabolic Zqc646 ALT(SGPT) 148 U/L 02/20/2018 Comp Metabolic Ioj933 BILI T 6.8 mg/dL 02/20/2018 Comp Metabolic Oqn705 ALBUMIN 3.3 g/dL 02/20/2018 Comp Metabolic Buj643 TPRO 5.9 g/dL 02/20/2018 Comp Metabolic Lij081 GLOB 2.6 g/dL 02/20/2018 Comp Metabolic Rcq940 A/G Ratio 1.3 Ratio 02/20/2018 Comp Metabolic Eku846 Osmo 272 mOsmo 02/20/2018 Total Psa Ord10 PSA >154.00 ng/mL 02/20/2018 Tsh Ord6 TSH (3rd IS) 14.62 uIU/mL 02/20/2018 Metabolic Ord15 NA 139 mEq/L 11/09/2017 Metabolic Ord15 K 4.4 mEq/L 11/09/2017 Metabolic Ord15 CL 100 mEq/L 11/09/2017 Metabolic Ord15 CO2 32.0 mEq/L 11/09/2017 Metabolic Ord15 GLUCOSE 129 mg/dL 11/09/2017 Metabolic Ord15 BUN 21 mg/dL 11/09/2017 Metabolic Ord15 Creat 1.2 mg/dL 11/09/2017 Metabolic Ord15 B/C Ratio 18.3 Ratio 11/09/2017 Metabolic Ord15 eGFR 66 ml/min/1.73m2 11/09/2017 Metabolic Ord15 Osmo 282 mOsmo 11/09/2017 Metabolic Ord15 ANION GAP 11 11/09/2017 Metabolic Ord15 CALCIUM 9.2 mg/dL 11/09/2017 %Hba1C Gil767 % HbA1c 23048-3 8.0 % 11/09/2017 %Hba1C Tkk573 Gluc Ave 183 mg/dL 11/09/2017 Metabolic Ord15 NA 135 mEq/L 06/25/2017 Metabolic Ord15 K 4.4 mEq/L 06/25/2017 Metabolic Ord15 CL 98 mEq/L 06/25/2017 Metabolic Ord15 CO2 28.0 mEq/L 06/25/2017 Metabolic Ord15 GLUCOSE 133 mg/dL 06/25/2017 Metabolic Ord15 BUN 26 mg/dL 06/25/2017 Metabolic Ord15 Creat 1.6 mg/dL 06/25/2017 Metabolic Ord15 B/C Ratio 16.4 Ratio 06/25/2017 Metabolic Ord15 eGFR 46 ml/min/1.73m2 06/25/2017 Metabolic Ord15 Osmo 277 mOsmo 06/25/2017 Metabolic Ord15 ANION GAP 13 06/25/2017 Metabolic Ord15 CALCIUM 8.7 mg/dL 06/25/2017 Culture Wound [id number] WOUND CULTURE SEE NOTES 04/09/2017 Culture Wound [id number] Continued Results 04/09/2017 Amylase Ord34 AMYLASE 19 U/L 03/22/2017 Uric Acid Ord77 Uric A 8.8 mg/dL 03/22/2017 Cbc With Differential Ord2 WBC 16.93 K/ul 03/22/2017 Cbc With Differential Ord2 RBC 4.30 M/ul 03/22/2017 Cbc With Differential Ord2 HGB 12.0 g/dl 03/22/2017 Cbc With Differential Ord2 HCT 38.3 % 03/22/2017 Cbc With Differential Ord2 Neut% 82.3 % 03/22/2017 Cbc With Differential Ord2 MCV 89.1 fl 03/22/2017 Cbc With Differential Ord2 Lymph% 8.0 % 03/22/2017 Cbc With Differential Ord2 [place]% 8.3 % 03/22/2017 Cbc With Differential Ord2 MCH 27.9 pg 03/22/2017 Cbc With Differential Ord2 MCHC 31.3 pg 03/22/2017 Cbc With Differential Ord2 Eos% 1.3 % 03/22/2017 Cbc With Differential Ord2 PLT 353 K/ul 03/22/2017 Cbc With Differential Ord2 Baso% 0.1 % 03/22/2017 Cbc With Differential Ord2 RDW 17.5 % 03/22/2017 Cbc With Differential Ord2 Neut ABS# 13.95 K/ul 03/22/2017 Cbc With Differential Ord2 Lymph ABS# 1.35 K/ul 03/22/2017 Cbc With Differential Ord2 [place] ABS# 1.4 K/ul 03/22/2017 Cbc With Differential Ord2 Eos ABS# 0.2 K/ul 03/22/2017 Cbc With Differential Ord2 Baso ABS# 0.0 K/ul 03/22/2017 Comp Metabolic Gjs620 NA 134 mEq/L 03/22/2017 Comp Metabolic Mat598 K 4.5 mEq/L 03/22/2017 Comp Metabolic Cfv128 CL 93 mEq/L 03/22/2017 Comp Metabolic Wtg077 CO2 31.0 mEq/L 03/22/2017 Comp Metabolic Elk545 ANION GAP 15 03/22/2017 Comp Metabolic Wsf647 GLUCOSE 198 mg/dL 03/22/2017 Comp Metabolic Uav303 Creat 1.5 mg/dL 03/22/2017 Comp Metabolic Ruh445 eGFR 50 ml/min/1.73m2 03/22/2017 Comp Metabolic Rat518 BUN 32 mg/dL 03/22/2017 Comp Metabolic Dyj567 B/C Ratio 21.6 Ratio 03/22/2017 Comp Metabolic Fjf710 CALCIUM 8.4 mg/dL 03/22/2017 Comp Metabolic Mlu029 ALK PHOS 245 U/L 03/22/2017 Comp Metabolic Auz913 AST(SGOT) 18 U/L 03/22/2017 Comp Metabolic Ldl451 ALT(SGPT) 17 U/L 03/22/2017 Comp Metabolic Dqg099 BILI T 0.8 mg/dL 03/22/2017 Comp Metabolic Gry431 ALBUMIN 2.9 g/dL 03/22/2017 Comp Metabolic Lch867 TPRO 6.3 g/dL 03/22/2017 Comp Metabolic Ynh774 GLOB 3.4 g/dL 03/22/2017 Comp Metabolic Gwj679 A/G Ratio 0.8 Ratio 03/22/2017 Comp Metabolic Ybm253 Osmo 281 mOsmo 03/22/2017 Lipase Mwy524 LIPASE 12 U/L 03/22/2017 Comp Metabolic Okc803 NA 142 mEq/L 03/09/2017 Comp Metabolic Zag533 K 4.8 mEq/L 03/09/2017 Comp Metabolic Iip384 CL 103 mEq/L 03/09/2017 Comp Metabolic Pbn051 CO2 30.0 mEq/L 03/09/2017 Comp Metabolic Nei176 ANION GAP 14 03/09/2017 Comp Metabolic Isc106 GLUCOSE 152 mg/dL 03/09/2017 Comp Metabolic Gzw181 Creat 1.3 mg/dL 03/09/2017 Comp Metabolic Rnv560 eGFR 56 ml/min/1.73m2 03/09/2017 Comp Metabolic Mma074 BUN 23 mg/dL 03/09/2017 Comp Metabolic Bgg510 B/C Ratio 17.3 Ratio 03/09/2017 Comp Metabolic Jos346 CALCIUM 8.5 mg/dL 03/09/2017 Comp Metabolic Uao915 ALK PHOS 97 U/L 03/09/2017 Comp Metabolic Pyj851 AST(SGOT) 10 U/L 03/09/2017 Comp Metabolic Jly407 ALT(SGPT) 6 U/L 03/09/2017 Comp Metabolic Kfe425 BILI T 0.4 mg/dL 03/09/2017 Comp Metabolic Sat224 ALBUMIN 3.4 g/dL 03/09/2017 Comp Metabolic Klv239 TPRO 6.2 g/dL 03/09/2017 Comp Metabolic Edj200 GLOB 2.8 g/dL 03/09/2017 Comp Metabolic Ugl494 A/G Ratio 1.2 Ratio 03/09/2017 Comp Metabolic Zsk637 Osmo 290 mOsmo 03/09/2017 Free T4 Epo790 FREE T4 0.86 ng/dL 03/08/2017 Cbc With Differential Ord2 WBC 9.75 K/ul 03/08/2017 Cbc With Differential Ord2 RBC 4.47 M/ul 03/08/2017 Cbc With Differential Ord2 HGB 12.6 g/dl 03/08/2017 Cbc With Differential Ord2 Neut% 69.3 % 03/08/2017 Cbc With Differential Ord2 HCT 41.9 % 03/08/2017 Cbc With Differential Ord2 MCV 93.7 fl 03/08/2017 Cbc With Differential Ord2 Lymph% 16.7 % 03/08/2017 Cbc With Differential Ord2 [place]% 8.7 % 03/08/2017 Cbc With Differential Ord2 MCH 28.2 pg 03/08/2017 Cbc With Differential Ord2 MCHC 30.1 pg 03/08/2017 Cbc With Differential Ord2 Eos% 5.1 % 03/08/2017 Cbc With Differential Ord2 PLT 268 K/ul 03/08/2017 Cbc With Differential Ord2 Baso% 0.2 % 03/08/2017 Cbc With Differential Ord2 RDW 16.8 % 03/08/2017 Cbc With Differential Ord2 Neut ABS# 6.75 K/ul 03/08/2017 Cbc With Differential Ord2 Lymph ABS# 1.63 K/ul 03/08/2017 Cbc With Differential Ord2 [place] ABS# 0.9 K/ul 03/08/2017 Cbc With Differential Ord2 Eos ABS# 0.5 K/ul 03/08/2017 Cbc With Differential Ord2 Baso ABS# 0.0 K/ul 03/08/2017 Tsh Ord6 hTSH II 4.52 uIU/mL 03/08/2017 %Hba1C Rwu803 % HbA1c 26767-4 8.5 % 03/08/2017 %Hba1C Vgo111 Gluc Ave 197 mg/dL 03/08/2017 %Hba1C Itc310 % HbA1c 81650-0 9.8 % 12/04/2016 %Hba1C Hqe214 Gluc Ave 235 mg/dL 12/04/2016 Tsh Ord6 hTSH II 10.65 uIU/mL 11/30/2016 Comp Metabolic Cyt721 NA 134 mEq/L 11/30/2016 Comp Metabolic Twp696 K 5.0 mEq/L 11/30/2016 Comp Metabolic Aht137 CL 95 mEq/L 11/30/2016 Comp Metabolic Saf972 CO2 34.0 mEq/L 11/30/2016 Comp Metabolic Xop341 ANION GAP 10 11/30/2016 Comp Metabolic Pbk529 GLUCOSE 226 mg/dL 11/30/2016 Comp Metabolic Lig235 Creat 1.3 mg/dL 11/30/2016 Comp Metabolic Xrw639 eGFR 56 ml/min/1.73m2 11/30/2016 Comp Metabolic Gpt365 BUN 21 mg/dL 11/30/2016 Comp Metabolic Zhc816 B/C Ratio 15.7 Ratio 11/30/2016 Comp Metabolic Ibl773 CALCIUM 8.9 mg/dL 11/30/2016 Comp Metabolic Fku782 ALK PHOS 112 U/L 11/30/2016 Comp Metabolic Tgo219 AST(SGOT) 9 U/L 11/30/2016 Comp Metabolic Kqn615 ALT(SGPT) 7 U/L 11/30/2016 Comp Metabolic Uzw068 BILI T 0.6 mg/dL 11/30/2016 Comp Metabolic Sfl898 ALBUMIN 3.6 g/dL 11/30/2016 Comp Metabolic Ham607 TPRO 6.4 g/dL 11/30/2016 Comp Metabolic Sha974 GLOB 2.9 g/dL 11/30/2016 Comp Metabolic Lub613 A/G Ratio 1.2 Ratio 11/30/2016 Comp Metabolic Trs953 Osmo 278 mOsmo 11/30/2016 Lipid Ord30 CHOL 170 mg/dL 11/30/2016 Lipid Ord30 HDL 27.0 mg/dl 11/30/2016 Lipid Ord30 TRIG 119 mg/dL 11/30/2016 Lipid Ord30 LDL 119 mg/dL 11/30/2016 Lipid Ord30 C/HDL 6.3 Ratio 11/30/2016 Cbc With Differential Ord2 WBC 10.29 K/ul 11/30/2016 Cbc With Differential Ord2 RBC 4.32 M/ul 11/30/2016 Cbc With Differential Ord2 HGB 13.2 g/dl 11/30/2016 Cbc With Differential Ord2 HCT 42.8 % 11/30/2016 Cbc With Differential Ord2 Neut% 76.6 % 11/30/2016 Cbc With Differential Ord2 Lymph% 13.0 % 11/30/2016 Cbc With Differential Ord2 MCV 99.1 fl 11/30/2016 Cbc With Differential Ord2 [place]% 7.9 % 11/30/2016 Cbc With Differential Ord2 MCH 30.6 pg 11/30/2016 Cbc With Differential Ord2 MCHC 30.8 pg 11/30/2016 Cbc With Differential Ord2 Eos% 2.4 % 11/30/2016 Cbc With Differential Ord2 PLT 243 K/ul 11/30/2016 Cbc With Differential Ord2 Baso% 0.1 % 11/30/2016 Cbc With Differential Ord2 RDW 16.1 % 11/30/2016 Cbc With Differential Ord2 Neut ABS# 7.88 K/ul 11/30/2016 Cbc With Differential Ord2 Lymph ABS# 1.34 K/ul 11/30/2016 Cbc With Differential Ord2 [place] ABS# 0.8 K/ul 11/30/2016 Cbc With Differential Ord2 Eos ABS# 0.3 K/ul 11/30/2016 Cbc With Differential Ord2 Baso ABS# 0.0 K/ul 11/30/2016 Free T4 Toc738 FREE T4 0.89 ng/dL 11/30/2016 Review of Systems System Result Effective Dates Constitutional No recent illness 2018 Constitutional No chills 10/18/2018 Constitutional No diaphoresis 10/18/2018 Constitutional No fever 10/18/2018 Eyes No eye erythema 10/18/2018 Ears/Nose/Throat/Neck No nasal discharge 10/18/2018 Cardiovascular No chest pain/pressure 09/2018 Cardiovascular dyspnea 10/18/2018 Cardiovascular edema 10/18/2018 Cardiovascular No palpitations 2018 Respiratory No cough 10/18/2018 Respiratory dyspnea on exertion 2018 Dermatologic sores 10/18/2018 Neurologic No alteration of consciousness 10/18/2018 Neurologic No mental status change 2018 Constitutional No recent illness 2018 Constitutional No chills 10/14/2018 Constitutional No diaphoresis 10/14/2018 Constitutional No fever 10/14/2018 Eyes No eye erythema 10/14/2018 Ears/Nose/Throat/Neck No nasal discharge 10/14/2018 Cardiovascular No chest pain/pressure Cardiovascular edema 10/14/2018 Cardiovascular No palpitations 2018 Respiratory No cough 10/14/2018 Respiratory dyspnea on exertion 2018 Dermatologic sores 10/14/2018 Neurologic No alteration of consciousness 10/14/2018 Neurologic No mental status change 2018 Constitutional No recent illness 2018 Constitutional No chills 10/10/2018 Constitutional No diaphoresis 10/10/2018 Constitutional No fever 10/10/2018 Eyes No eye erythema 10/10/2018 Ears/Nose/Throat/Neck No nasal discharge 10/10/2018 Cardiovascular No chest pain/pressure Cardiovascular edema 10/10/2018 Cardiovascular dyspnea 10/10/2018 Cardiovascular No palpitations 2018 Respiratory No cough 10/10/2018 Respiratory dyspnea on exertion 2018 Dermatologic sores 10/10/2018 Neurologic No alteration of consciousness 10/10/2018 Neurologic No mental status change 2018 Constitutional No recent illness 2018 Constitutional No chills 10/04/2018 Constitutional No fatigue 10/04/2018 Constitutional No fever 10/04/2018 Eyes No blindness 10/04/2018 Eyes No vision change 10/04/2018 Ears/Nose/Throat/Neck No dizziness 2018 Ears/Nose/Throat/Neck No headache 2018 Cardiovascular No chest pain/pressure Cardiovascular No near-syncope/dizziness 10/04/2018 Cardiovascular No palpitations 2018 Respiratory No chest congestion 2018 Respiratory No cough 10/04/2018 Gastrointestinal No abdominal pain 2018 Gastrointestinal No constipation 2018 Gastrointestinal No diarrhea 10/04/2018 Gastrointestinal No nausea 10/04/2018 Gastrointestinal No vomiting 10/04/2018 Genitourinary/Nephrology No dysuria 10/04 Musculoskeletal stiffness 10/04/2018 Musculoskeletal arthralgia(s) 10/04/2018 Dermatologic No rash 10/04/2018 Dermatologic No scar 10/04/2018 Neurologic No alteration of consciousness 10/04/2018 Psychiatric No anxiety 10/04/2018 Psychiatric No depression 10/04/2018 Musculoskeletal joint complaint 2018 Respiratory dyspnea 10/04/2018 Dermatologic skin lesion 10/04/2018 Neurologic paresthesia 10/04/2018 Constitutional No recent illness 2017 Constitutional No chills 08/29/2018 Constitutional No fatigue 08/29/2018 Constitutional No fever 08/29/2018 Eyes No blindness 08/29/2018 Eyes No vision change 08/29/2018 Ears/Nose/Throat/Neck No dizziness 2017 Ears/Nose/Throat/Neck No headache 2017 Cardiovascular No chest pain/pressure Cardiovascular No near-syncope/dizziness 08/29/2018 Cardiovascular No palpitations 2017 Respiratory No chest congestion 2017 Respiratory No cough 08/29/2018 Gastrointestinal No abdominal pain 2017 Gastrointestinal No constipation 2017 Gastrointestinal No diarrhea 08/29/2018 Gastrointestinal No nausea 08/29/2018 Gastrointestinal No vomiting 08/29/2018 Genitourinary/Nephrology No dysuria 08/29 Musculoskeletal stiffness 08/29/2018 Musculoskeletal arthralgia(s) 08/29/2018 Dermatologic No rash 08/29/2018 Dermatologic No scar 08/29/2018 Neurologic No alteration of consciousness 08/29/2018 Psychiatric No anxiety 08/29/2018 Psychiatric No depression 08/29/2018 Constitutional recent illness 02/25/2018 Constitutional anorexia 02/25/2018 Constitutional obesity 02/25/2018 Constitutional No chills 02/25/2018 Constitutional No diaphoresis 02/25/2018 Constitutional fatigue 02/25/2018 Constitutional No fever 02/25/2018 Constitutional malaise 02/25/2018 Ears/Nose/Throat/Neck No nasal discharge 02/25/2018 Cardiovascular No chest pain/pressure 07/2018 Cardiovascular No dyspnea 02/25/2018 Respiratory No chest congestion 2017 Respiratory No cough 02/25/2018 Gastrointestinal abdominal pain 2017 Gastrointestinal constipation 02/25/2018 Gastrointestinal No diarrhea 02/25/2018 Gastrointestinal jaundice 02/25/2018 Gastrointestinal nausea 02/25/2018 Gastrointestinal No vomiting 02/25/2018 Genitourinary/Nephrology No dysuria 02/25 Genitourinary/Nephrology hematuria 2017 Dermatologic No rash 02/25/2018 Neurologic No alteration of consciousness 02/25/2018 Neurologic No mental status change 2017 Constitutional recent illness 02/20/2018 Constitutional anorexia 02/20/2018 Constitutional obesity 02/20/2018 Constitutional No chills 02/20/2018 Constitutional No diaphoresis 02/20/2018 Constitutional No fever 02/20/2018 Constitutional fatigue 02/20/2018 Constitutional malaise 02/20/2018 Eyes No eye erythema 02/20/2018 Ears/Nose/Throat/Neck No nasal discharge 02/20/2018 Cardiovascular No chest pain/pressure 02/2018 Cardiovascular No dyspnea 02/20/2018 Respiratory No cough 02/20/2018 Respiratory No chest congestion 2017 Gastrointestinal abdominal pain 2017 Gastrointestinal constipation 02/20/2018 Gastrointestinal No diarrhea 02/20/2018 Gastrointestinal nausea 02/20/2018 Gastrointestinal No vomiting 02/20/2018 Genitourinary/Nephrology No dysuria 02/20 Dermatologic No rash 02/20/2018 Neurologic No alteration of consciousness 02/20/2018 Neurologic No mental status change 2017 Gastrointestinal jaundice 02/20/2018 Genitourinary/Nephrology hematuria 2017 Constitutional No recent illness 2017 Constitutional No chills 02/05/2018 Constitutional No fatigue 02/05/2018 Constitutional No fever 02/05/2018 Eyes No blindness 02/05/2018 Eyes No vision change 02/05/2018 Ears/Nose/Throat/Neck No dizziness 2017 Ears/Nose/Throat/Neck No headache 2017 Cardiovascular No chest pain/pressure Cardiovascular No near-syncope/dizziness 02/05/2018 Cardiovascular No palpitations 2017 Respiratory No chest congestion 2017 Respiratory No cough 02/05/2018 Gastrointestinal No abdominal pain 2017 Gastrointestinal No constipation 2017 Gastrointestinal No diarrhea 02/05/2018 Gastrointestinal No nausea 02/05/2018 Gastrointestinal No vomiting 02/05/2018 Musculoskeletal stiffness 02/05/2018 Musculoskeletal arthralgia(s) 02/05/2018 Dermatologic No rash 02/05/2018 Dermatologic No scar 02/05/2018 Neurologic No alteration of consciousness 02/05/2018 Psychiatric No anxiety 02/05/2018 Psychiatric No depression 02/05/2018 Genitourinary/Nephrology No dysuria 02/05 Constitutional No recent illness 2017 Constitutional No chills 11/30/2017 Constitutional No fatigue 11/30/2017 Constitutional No fever 11/30/2017 Eyes No blindness 11/30/2017 Eyes No vision change 11/30/2017 Ears/Nose/Throat/Neck No dizziness 2017 Ears/Nose/Throat/Neck No headache 2017 Cardiovascular No chest pain/pressure Cardiovascular No near-syncope/dizziness 11/30/2017 Cardiovascular No palpitations 2017 Respiratory No chest congestion 2017 Respiratory No cough 11/30/2017 Gastrointestinal No abdominal pain 2017 Gastrointestinal No constipation 2017 Gastrointestinal No diarrhea 11/30/2017 Gastrointestinal No nausea 11/30/2017 Gastrointestinal No vomiting 11/30/2017 Musculoskeletal stiffness 11/30/2017 Musculoskeletal arthralgia(s) 11/30/2017 Dermatologic No rash 11/30/2017 Dermatologic No scar 11/30/2017 Neurologic No alteration of consciousness 11/30/2017 Psychiatric No anxiety 11/30/2017 Psychiatric No depression 11/30/2017 Dermatologic sores 11/30/2017 Constitutional No anorexia 11/08/2017 Constitutional No night sweats 2017 Constitutional No chills 11/08/2017 Constitutional No diaphoresis 11/08/2017 Constitutional No fatigue 11/08/2017 Constitutional No fever 11/08/2017 Constitutional No insomnia 11/08/2017 Constitutional No malaise 11/08/2017 Eyes No blindness 11/08/2017 Eyes No vision change 11/08/2017 Ears/Nose/Throat/Neck No dizziness 2017 Cardiovascular No chest pain/pressure Cardiovascular No dyspnea 11/08/2017 Cardiovascular edema 11/08/2017 Respiratory No cough 11/08/2017 Respiratory No dyspnea on exertion 2017 Respiratory No dyspnea 11/08/2017 Gastrointestinal No hemorrhoids 2017 Gastrointestinal No abdominal pain 2017 Gastrointestinal No constipation 2017 Gastrointestinal No diarrhea 11/08/2017 Gastrointestinal No gastroesophageal reflux 11/08/2017 Gastrointestinal No melena 11/08/2017 Gastrointestinal No nausea 11/08/2017 Gastrointestinal No vomiting 11/08/2017 Genitourinary/Nephrology No dysuria 11/08 Musculoskeletal joint complaint 2017 Neurologic paresthesia 11/08/2017 Psychiatric No anxiety 11/08/2017 Psychiatric No depression 11/08/2017 Constitutional No anorexia 09/20/2017 Constitutional No night sweats 2017 Constitutional No chills 09/20/2017 Constitutional No diaphoresis 09/20/2017 Constitutional No fatigue 09/20/2017 Constitutional No fever 09/20/2017 Constitutional No insomnia 09/20/2017 Constitutional No malaise 09/20/2017 Constitutional No weight loss 09/20/2017 Constitutional No weight gain 09/20/2017 Ears/Nose/Throat/Neck No dizziness 2017 Cardiovascular No chest pain/pressure 12/2017 Cardiovascular No dyspnea 09/20/2017 Cardiovascular edema 09/20/2017 Respiratory No cough 09/20/2017 Respiratory No dyspnea on exertion 2017 Respiratory No dyspnea 09/20/2017 Genitourinary/Nephrology No dysuria 09/20 Musculoskeletal joint complaint 2017 Dermatologic sores 09/20/2017 Psychiatric No anxiety 09/20/2017 Psychiatric No depression 09/20/2017 Neurologic paresthesia 09/20/2017 Gastrointestinal No hemorrhoids 2017 Gastrointestinal No abdominal pain 2017 Gastrointestinal No constipation 2017 Gastrointestinal No diarrhea 09/20/2017 Gastrointestinal No gastroesophageal reflux 09/20/2017 Gastrointestinal No melena 09/20/2017 Gastrointestinal No nausea 09/20/2017 Gastrointestinal No vomiting 09/20/2017 Eyes No blindness 09/20/2017 Eyes No vision change 09/20/2017 Constitutional No anorexia 06/25/2017 Constitutional No night sweats 2016 Constitutional No chills 06/25/2017 Constitutional No diaphoresis 06/25/2017 Constitutional No fatigue 06/25/2017 Constitutional No fever 06/25/2017 Constitutional No insomnia 06/25/2017 Constitutional No malaise 06/25/2017 Constitutional No weight loss 06/25/2017 Constitutional No weight gain 06/25/2017 Cardiovascular No chest pain/pressure 05/2017 Cardiovascular No dyspnea 06/25/2017 Cardiovascular edema 06/25/2017 Respiratory No cough 06/25/2017 Respiratory No dyspnea on exertion 2016 Respiratory No dyspnea 06/25/2017 Genitourinary/Nephrology No dysuria 06/25 Musculoskeletal joint complaint 2016 Dermatologic sores 06/25/2017 Ears/Nose/Throat/Neck No dizziness 2016 Dermatologic erythema 06/07/2017 Constitutional No recent illness 2016 Constitutional No anorexia 06/07/2017 Constitutional No night sweats 2016 Constitutional No chills 06/07/2017 Constitutional No diaphoresis 06/07/2017 Constitutional No fatigue 06/07/2017 Constitutional No fever 06/07/2017 Constitutional No insomnia 06/07/2017 Constitutional No malaise 06/07/2017 Cardiovascular edema 06/07/2017 Constitutional No anorexia 05/03/2017 Constitutional No night sweats 2016 Constitutional No chills 05/03/2017 Constitutional No diaphoresis 05/03/2017 Constitutional No fatigue 05/03/2017 Constitutional No fever 05/03/2017 Constitutional No insomnia 05/03/2017 Constitutional No malaise 05/03/2017 Constitutional No weight loss 05/03/2017 Constitutional No weight gain 05/03/2017 Cardiovascular No chest pain/pressure Cardiovascular No dyspnea 05/03/2017 Cardiovascular edema 05/03/2017 Respiratory No cough 05/03/2017 Respiratory No dyspnea on exertion 2016 Respiratory No dyspnea 05/03/2017 Genitourinary/Nephrology No dysuria 05/03 Musculoskeletal joint complaint 2016 Dermatologic sores 05/03/2017 Constitutional recent illness 04/02/2017 Constitutional No anorexia 04/02/2017 Constitutional No night sweats 2016 Constitutional No chills 04/02/2017 Constitutional No diaphoresis 04/02/2017 Constitutional No fatigue 04/02/2017 Constitutional No fever 04/02/2017 Constitutional No insomnia 04/02/2017 Constitutional No malaise 04/02/2017 Constitutional No weight loss 04/02/2017 Constitutional No weight gain 04/02/2017 Cardiovascular No chest pain/pressure Cardiovascular No dyspnea 04/02/2017 Cardiovascular edema 04/02/2017 Respiratory No cough 04/02/2017 Respiratory No dyspnea on exertion 2016 Respiratory No dyspnea 04/02/2017 Genitourinary/Nephrology No dysuria 04/02 Musculoskeletal joint complaint 2016 Dermatologic erythema 04/02/2017 Dermatologic cellulitis 04/02/2017 Constitutional recent illness 03/26/2017 Constitutional No anorexia 03/26/2017 Constitutional No night sweats 2016 Constitutional No chills 03/26/2017 Constitutional No diaphoresis 03/26/2017 Constitutional No fatigue 03/26/2017 Constitutional No fever 03/26/2017 Constitutional No insomnia 03/26/2017 Constitutional No malaise 03/26/2017 Constitutional No weight loss 03/26/2017 Constitutional No weight gain 03/26/2017 Cardiovascular No chest pain/pressure 06/2017 Cardiovascular No dyspnea 03/26/2017 Cardiovascular edema 03/26/2017 Respiratory No cough 03/26/2017 Respiratory No dyspnea on exertion 2016 Respiratory No dyspnea 03/26/2017 Genitourinary/Nephrology No dysuria 03/26 Musculoskeletal joint complaint 2016 Dermatologic erythema 03/26/2017 Dermatologic cellulitis 03/26/2017 Constitutional recent illness 03/22/2017 Constitutional No anorexia 03/22/2017 Constitutional No night sweats 2016 Constitutional No chills 03/22/2017 Constitutional No diaphoresis 03/22/2017 Constitutional No fatigue 03/22/2017 Constitutional No fever 03/22/2017 Constitutional No insomnia 03/22/2017 Constitutional No malaise 03/22/2017 Constitutional No weight loss 03/22/2017 Constitutional No weight gain 03/22/2017 Cardiovascular No chest pain/pressure 02/2017 Cardiovascular No dyspnea 03/22/2017 Cardiovascular edema 03/22/2017 Respiratory No cough 03/22/2017 Respiratory No dyspnea on exertion 2016 Respiratory No dyspnea 03/22/2017 Musculoskeletal joint complaint 2016 Dermatologic erythema 03/22/2017 Dermatologic cellulitis 03/22/2017 Genitourinary/Nephrology No dysuria 03/22 Constitutional No recent illness 2016 Constitutional No chills 03/08/2017 Constitutional No fatigue 03/08/2017 Constitutional No fever 03/08/2017 Eyes No blindness 03/08/2017 Eyes No vision change 03/08/2017 Ears/Nose/Throat/Neck No dizziness 2016 Ears/Nose/Throat/Neck No headache 2016 Cardiovascular No chest pain/pressure Cardiovascular No near-syncope/dizziness 03/08/2017 Cardiovascular No palpitations 2016 Respiratory No chest congestion 2016 Respiratory No cough 03/08/2017 Gastrointestinal No abdominal pain 2016 Gastrointestinal No constipation 2016 Gastrointestinal No diarrhea 03/08/2017 Gastrointestinal No nausea 03/08/2017 Gastrointestinal No vomiting 03/08/2017 Musculoskeletal stiffness 03/08/2017 Musculoskeletal arthralgia(s) 03/08/2017 Dermatologic No rash 03/08/2017 Dermatologic No scar 03/08/2017 Neurologic No alteration of consciousness 03/08/2017 Psychiatric No anxiety 03/08/2017 Psychiatric No depression 03/08/2017 Constitutional No recent illness 2016 Constitutional No anorexia 12/06/2016 Constitutional No night sweats 2016 Constitutional No chills 12/06/2016 Constitutional No diaphoresis 12/06/2016 Constitutional No fatigue 12/06/2016 Constitutional No fever 12/06/2016 Constitutional No insomnia 12/06/2016 Constitutional No malaise 12/06/2016 Constitutional No weight loss 12/06/2016 Constitutional obesity 12/06/2016 Eyes No eye pain 12/06/2016 Eyes No vision change 12/06/2016 Ears/Nose/Throat/Neck No dental pain Ears/Nose/Throat/Neck No dizziness 2016 Ears/Nose/Throat/Neck No facial pain Ears/Nose/Throat/Neck No headache 2016 Cardiovascular No chest pain/pressure Cardiovascular dyspnea 12/06/2016 Cardiovascular No exercise intolerance Cardiovascular No fatigue 12/06/2016 Cardiovascular No palpitations 2016 Respiratory No chest congestion 2016 Respiratory No chest tightness 2016 Respiratory No cigarette smoking 2016 Respiratory No cough 12/06/2016 Respiratory dyspnea on exertion 2016 Respiratory dyspnea 12/06/2016 Gastrointestinal No abdominal pain 2016 Gastrointestinal constipation 12/06/2016 Gastrointestinal No diarrhea 12/06/2016 Genitourinary/Nephrology No anuria/oliguria 12/06/2016 Genitourinary/Nephrology No dysuria 12/06 Genitourinary/Nephrology No urinary urgency 12/06/2016 Genitourinary/Nephrology No urinary frequency 12/06/2016 Genitourinary/Nephrology No urinary incontinence 12/06/2016 Genitourinary/Nephrology No urinary retention/hesitancy 12/06/2016 Musculoskeletal stiffness 12/06/2016 Musculoskeletal swelling 12/06/2016 Musculoskeletal arthralgia(s) 12/06/2016 Musculoskeletal back pain 12/06/2016 Musculoskeletal bone pain 12/06/2016 Musculoskeletal joint complaint 2016 Dermatologic No rash 12/06/2016 Dermatologic No sores 12/06/2016 Neurologic No alteration of consciousness 12/06/2016 Neurologic No dizziness 12/06/2016 Neurologic No headache 12/06/2016 Neurologic No memory loss 12/06/2016 Neurologic No mental status change 2016 Psychiatric No anxiety 12/06/2016 Psychiatric No depression 12/06/2016 Endocrine No polydipsia 12/06/2016 Endocrine No polyuria 12/06/2016 Endocrine No sweating 12/06/2016 Endocrine No weakness 12/06/2016 Hematologic/Lymphatic No abnormal ecchymoses 12/06/2016 Hematologic/Lymphatic No abnormal bleeding and bruising 12/06/2016 Neurologic paresthesia 12/06/2016 Constitutional No recent illness 2016 Constitutional No anorexia 11/30/2016 Constitutional No night sweats 2016 Constitutional No chills 11/30/2016 Constitutional No diaphoresis 11/30/2016 Constitutional No fatigue 11/30/2016 Constitutional No fever 11/30/2016 Constitutional No insomnia 11/30/2016 Constitutional No malaise 11/30/2016 Constitutional No weight loss 11/30/2016 Constitutional obesity 11/30/2016 Eyes No eye pain 11/30/2016 Eyes No vision change 11/30/2016 Ears/Nose/Throat/Neck No dizziness 2016 Ears/Nose/Throat/Neck No headache 2016 Ears/Nose/Throat/Neck No dental pain Ears/Nose/Throat/Neck No facial pain Cardiovascular dyspnea 11/30/2016 Cardiovascular No palpitations 2016 Cardiovascular No chest pain/pressure Cardiovascular No exercise intolerance Cardiovascular No fatigue 11/30/2016 Respiratory No cough 11/30/2016 Respiratory No cigarette smoking 2016 Respiratory No chest tightness 2016 Respiratory No chest congestion 2016 Respiratory dyspnea on exertion 2016 Respiratory dyspnea 11/30/2016 Gastrointestinal No abdominal pain 2016 Gastrointestinal constipation 11/30/2016 Gastrointestinal No diarrhea 11/30/2016 Genitourinary/Nephrology No dysuria 11/30 Genitourinary/Nephrology No anuria/oliguria 11/30/2016 Genitourinary/Nephrology No urinary retention/hesitancy 11/30/2016 Genitourinary/Nephrology No urinary incontinence 11/30/2016 Genitourinary/Nephrology No urinary frequency 11/30/2016 Genitourinary/Nephrology No urinary urgency 11/30/2016 Musculoskeletal stiffness 11/30/2016 Musculoskeletal swelling 11/30/2016 Musculoskeletal arthralgia(s) 11/30/2016 Musculoskeletal back pain 11/30/2016 Musculoskeletal bone pain 11/30/2016 Musculoskeletal joint complaint 2016 Dermatologic No rash 11/30/2016 Dermatologic No sores 11/30/2016 Neurologic No alteration of consciousness 11/30/2016 Neurologic No dizziness 11/30/2016 Neurologic No headache 11/30/2016 Neurologic No memory loss 11/30/2016 Neurologic No mental status change 2016 Psychiatric No anxiety 11/30/2016 Psychiatric No depression 11/30/2016 Endocrine No polydipsia 11/30/2016 Endocrine No polyuria 11/30/2016 Endocrine No sweating 11/30/2016 Endocrine No weakness 11/30/2016 Hematologic/Lymphatic No abnormal ecchymoses 11/30/2016 Hematologic/Lymphatic No abnormal bleeding and bruising 11/30/2016 Constitutional weight gain 11/30/2016 Constitutional No recent illness 2016 Constitutional No chills 11/28/2016 Constitutional No fatigue 11/28/2016 Constitutional No fever 11/28/2016 Eyes No eye discharge 11/28/2016 Eyes No eye erythema 11/28/2016 Eyes No vision change 11/28/2016 Ears/Nose/Throat/Neck No headache 2016 Ears/Nose/Throat/Neck No nasal allergies 11/28/2016 Ears/Nose/Throat/Neck No nasal discharge 11/28/2016 Cardiovascular No chest pain/pressure Cardiovascular No dyspnea 11/28/2016 Cardiovascular No edema 11/28/2016 Respiratory No chest congestion 2016 Respiratory No cough 11/28/2016 Gastrointestinal No abdominal pain 2016 Gastrointestinal No constipation 2016 Gastrointestinal No diarrhea 11/28/2016 Gastrointestinal No nausea 11/28/2016 Gastrointestinal No vomiting 11/28/2016 Musculoskeletal stiffness 11/28/2016 Musculoskeletal arthralgia(s) 11/28/2016 Dermatologic No rash 11/28/2016 Dermatologic No scar 11/28/2016 Neurologic No alteration of consciousness 11/28/2016 Psychiatric No anxiety 11/28/2016 Psychiatric No depression 11/28/2016 Constitutional No recent illness 2015 Constitutional No chills 05/04/2016 Constitutional No fatigue 05/04/2016 Constitutional No fever 05/04/2016 Eyes No eye discharge 05/04/2016 Eyes No eye erythema 05/04/2016 Eyes No vision change 05/04/2016 Ears/Nose/Throat/Neck No headache 2015 Ears/Nose/Throat/Neck No nasal allergies 05/04/2016 Ears/Nose/Throat/Neck No nasal discharge 05/04/2016 Cardiovascular No chest pain/pressure Cardiovascular No dyspnea 05/04/2016 Cardiovascular No edema 05/04/2016 Respiratory No chest congestion 2015 Respiratory No cough 05/04/2016 Gastrointestinal No abdominal pain 2015 Gastrointestinal No constipation 2015 Gastrointestinal No diarrhea 05/04/2016 Gastrointestinal No nausea 05/04/2016 Gastrointestinal No vomiting 05/04/2016 Musculoskeletal stiffness 05/04/2016 Musculoskeletal arthralgia(s) 05/04/2016 Dermatologic No rash 05/04/2016 Dermatologic No scar 05/04/2016 Neurologic No alteration of consciousness 05/04/2016 Psychiatric No anxiety 05/04/2016 Psychiatric No depression 05/04/2016 Constitutional No recent illness 2015 Constitutional No chills 11/04/2015 Constitutional No fatigue 11/04/2015 Constitutional No fever 11/04/2015 Eyes No vision change 11/04/2015 Ears/Nose/Throat/Neck No headache 2015 Cardiovascular No chest pain/pressure Respiratory No chest congestion 2015 Respiratory No cough 11/04/2015 Gastrointestinal No abdominal pain 2015 Gastrointestinal No constipation 2015 Gastrointestinal No diarrhea 11/04/2015 Gastrointestinal No nausea 11/04/2015 Gastrointestinal No vomiting 11/04/2015 Musculoskeletal stiffness 11/04/2015 Musculoskeletal arthralgia(s) 11/04/2015 Dermatologic No rash 11/04/2015 Dermatologic No scar 11/04/2015 Neurologic No alteration of consciousness 11/04/2015 Psychiatric No anxiety 11/04/2015 Psychiatric No depression 11/04/2015 Eyes No eye discharge 11/04/2015 Eyes No eye erythema 11/04/2015 Ears/Nose/Throat/Neck No nasal discharge 11/04/2015 Ears/Nose/Throat/Neck No nasal allergies 11/04/2015 Cardiovascular No dyspnea 11/04/2015 Cardiovascular No edema 11/04/2015 Constitutional No recent illness 2014 Constitutional No chills 07/30/2015 Constitutional No fatigue 07/30/2015 Constitutional No fever 07/30/2015 Eyes No blindness 07/30/2015 Eyes No vision change 07/30/2015 Ears/Nose/Throat/Neck No dizziness 2014 Ears/Nose/Throat/Neck No headache 2014 Cardiovascular No chest pain/pressure Cardiovascular No near-syncope/dizziness 07/30/2015 Cardiovascular No palpitations 2014 Respiratory No chest congestion 2014 Respiratory No cough 07/30/2015 Gastrointestinal No abdominal pain 2014 Gastrointestinal No constipation 2014 Gastrointestinal No diarrhea 07/30/2015 Gastrointestinal No nausea 07/30/2015 Gastrointestinal No vomiting 07/30/2015 Musculoskeletal stiffness 07/30/2015 Musculoskeletal arthralgia(s) 07/30/2015 Dermatologic No rash 07/30/2015 Dermatologic No scar 07/30/2015 Neurologic No alteration of consciousness 07/30/2015 Psychiatric No anxiety 07/30/2015 Psychiatric No depression 07/30/2015 Constitutional No chills 01/26/2015 Constitutional No fatigue 01/26/2015 Constitutional No fever 01/26/2015 Constitutional No recent illness 2014 Ears/Nose/Throat/Neck No dizziness 2014 Ears/Nose/Throat/Neck No headache 2014 Cardiovascular No chest pain/pressure 08/2015 Cardiovascular No near-syncope/dizziness 01/26/2015 Cardiovascular No palpitations 2014 Respiratory No chest congestion 2014 Respiratory No cough 01/26/2015 Gastrointestinal No abdominal pain 2014 Gastrointestinal No constipation 2014 Gastrointestinal No diarrhea 01/26/2015 Gastrointestinal No nausea 01/26/2015 Gastrointestinal No vomiting 01/26/2015 Genitourinary/Nephrology No dysuria 01/26 Neurologic No alteration of consciousness 01/26/2015 Psychiatric No anxiety 01/26/2015 Psychiatric No depression 01/26/2015 Dermatologic No rash 01/26/2015 Dermatologic No scar 01/26/2015 Musculoskeletal arthralgia(s) 01/26/2015 Musculoskeletal stiffness 01/26/2015 Eyes No blindness 01/26/2015 Eyes No vision change 01/26/2015 Endocrine weakness 01/26/2015 Hematologic/Lymphatic No abnormal ecchymoses 01/26/2015 Hematologic/Lymphatic No abnormal bleeding and bruising 01/26/2015 Physical Exam Exam Name System Name Item Name Status Result Effective Dates Notes Full Exam - General 1994 Constitutional general appearance Overall: well developed 10/18/2018 None Full Exam - General 1994 Constitutional general appearance Overall: in no acute distress 10/18/2018 None Full Exam - General 1994 Constitutional general appearance Overall: well nourished 10/18/2018 None Full Exam - General 1994 Eyes conjunctiva /eyelids Overall: conjunctiva clear 10/18/2018 None Full Exam - General 1994 Eyes conjunctiva /eyelids Overall: cornea clear 10/18/2018 None Full Exam - General 1994 Eyes conjunctiva /eyelids Overall: eyelids normal 10/18/2018 None Full Exam - General 1994 Ears/Nose/Throat lips/teeth/gingiva Overall: benign lips 10/18/2018 None Full Exam - General 1994 Ears/Nose/Throat oral cavity/pharynx/larynx Overall: oral mucosa clear 10/18/2018 None Full Exam - General 1994 Respiratory auscultation Diffuse: diminished 10/18/2018 None Full Exam - General 1994 Respiratory respiratory effort/rhythm Overall: no retractions 10/18/2018 None Full Exam - General 1994 Respiratory respiratory effort/rhythm Overall: normal rate 10/18/2018 None Full Exam - General 1994 Cardiovascular extremities Edema present: pitting 10/18/2018 None Full Exam - General 1994 Cardiovascular extremities Edema present: severity 1+ - 4 +: 3-4+ 10/18/2018 None Full Exam - General 1994 Cardiovascular extremities Edema present: bilateral 10/18/2018 None Full Exam - General 1994 Cardiovascular extremities Edema present: to thighs 10/18/2018 None Full Exam - General 1994 Cardiovascular auscultation of heart Overall: regular rate 10/18/2018 None Full Exam - General 1994 Musculoskeletal head and neck Overall: head atraumatic 10/18/2018 None Full Exam - General 1994 Integument inspection of skin Location: left leg 10/18/2018 None Full Exam - General 1994 Integument inspection of skin Location: right leg 10/18/2018 None Full Exam - General 1994 Integument inspection of skin Rash/Lesions: ulceration 10/18/2018 None Full Exam - General 1994 Integument inspection of skin Pigmentation: erythematous 10/18/2018 None Full Exam - General 1994 Neurologic cranial nerves Overall: crainial nerves 2 - 12 grossly intact 10/18/2018 None Full Exam - General 1994 Psychiatric orientation/consciousness Overall: oriented to person, place and time 10/18/2018 None Full Exam - General 1994 Psychiatric mood and affect Overall: normal mood and affect 10/18/2018 None Full Exam - General 1994 Constitutional general appearance Overall: well developed 10/14/2018 None Full Exam - General 1994 Constitutional general appearance Overall: in no acute distress 10/14/2018 None Full Exam - General 1994 Constitutional general appearance Overall: well nourished 10/14/2018 None Full Exam - General 1994 Eyes conjunctiva /eyelids Overall: conjunctiva clear 10/14/2018 None Full Exam - General 1994 Eyes conjunctiva /eyelids Overall: cornea clear 10/14/2018 None Full Exam - General 1994 Eyes conjunctiva /eyelids Overall: eyelids normal 10/14/2018 None Full Exam - General 1994 Ears/Nose/Throat lips/teeth/gingiva Overall: benign lips 10/14/2018 None Full Exam - General 1994 Ears/Nose/Throat oral cavity/pharynx/larynx Overall: oral mucosa clear 10/14/2018 None Full Exam - General 1994 Respiratory auscultation Diffuse: diminished 10/14/2018 None Full Exam - General 1994 Respiratory respiratory effort/rhythm Overall: no retractions 10/14/2018 None Full Exam - General 1994 Respiratory respiratory effort/rhythm Overall: normal rate 10/14/2018 None Full Exam - General 1994 Cardiovascular extremities Edema present: pitting 10/14/2018 None Full Exam - General 1994 Cardiovascular extremities Edema present: severity 1+ - 4 +: 4+ 10/14/2018 None Full Exam - General 1994 Cardiovascular extremities Edema present: bilateral 10/14/2018 None Full Exam - General 1994 Cardiovascular extremities Edema present: to thighs 10/14/2018 None Full Exam - General 1994 Cardiovascular auscultation of heart Overall: regular rate 10/14/2018 None Full Exam - General 1994 Musculoskeletal head and neck Overall: head atraumatic 10/14/2018 None Full Exam - General 1994 Integument inspection of skin Location: left leg 10/14/2018 None Full Exam - General 1994 Integument inspection of skin Location: right leg 10/14/2018 None Full Exam - General 1994 Integument inspection of skin Pigmentation: erythematous 10/14/2018 None Full Exam - General 1994 Neurologic cranial nerves Overall: crainial nerves 2 - 12 grossly intact 10/14/2018 None Full Exam - General 1994 Psychiatric orientation/consciousness Overall: oriented to person, place and time 10/14/2018 None Full Exam - General 1994 Psychiatric mood and affect Overall: normal mood and affect 10/14/2018 None Full Exam - General 1994 Integument inspection of skin Rash/Lesions: ulceration 10/14/2018 None Full Exam - General 1994 Integument inspection of skin Consistency: moist 10/14/2018 None Full Exam - General 1994 Constitutional general appearance Overall: well developed 10/10/2018 None Full Exam - General 1994 Constitutional general appearance Overall: in no acute distress 10/10/2018 None Full Exam - General 1994 Constitutional general appearance Overall: well nourished 10/10/2018 None Full Exam - General 1994 Eyes conjunctiva /eyelids Overall: eyelids normal 10/10/2018 None Full Exam - General 1994 Eyes conjunctiva /eyelids Overall: cornea clear 10/10/2018 None Full Exam - General 1994 Eyes conjunctiva /eyelids Overall: conjunctiva clear 10/10/2018 None Full Exam - General 1994 Ears/Nose/Throat lips/teeth/gingiva Overall: benign lips 10/10/2018 None Full Exam - General 1994 Ears/Nose/Throat oral cavity/pharynx/larynx Overall: oral mucosa clear 10/10/2018 None Full Exam - General 1994 Respiratory respiratory effort/rhythm Overall: normal rate 10/10/2018 None Full Exam - General 1994 Respiratory respiratory effort/rhythm Overall: no retractions 10/10/2018 None Full Exam - General 1994 Respiratory auscultation Diffuse: diminished 10/10/2018 None Full Exam - General 1994 Cardiovascular auscultation of heart Overall: regular rate 10/10/2018 None Full Exam - General 1994 Cardiovascular extremities Edema present: pitting 10/10/2018 None Full Exam - General 1994 Cardiovascular extremities Edema present: severity 1+ - 4 +: 4+ 10/10/2018 None Full Exam - General 1994 Cardiovascular extremities Edema present: bilateral 10/10/2018 None Full Exam - General 1994 Cardiovascular extremities Edema present: to thighs 10/10/2018 None Full Exam - General 1994 Musculoskeletal head and neck Overall: head atraumatic 10/10/2018 None Full Exam - General 1994 Integument inspection of skin Location: left leg 10/10/2018 None Full Exam - General 1994 Integument inspection of skin Location: right leg 10/10/2018 None Full Exam - General 1994 Integument inspection of skin Rash/Lesions: ulceration 10/10/2018 None Full Exam - General 1994 Integument inspection of skin Pigmentation: erythematous 10/10/2018 None Full Exam - General 1994 Neurologic cranial nerves Overall: crainial nerves 2 - 12 grossly intact 10/10/2018 None Full Exam - General 1994 Psychiatric orientation/consciousness Overall: oriented to person, place and time 10/10/2018 None Full Exam - General 1994 Psychiatric mood and affect Overall: normal mood and affect 10/10/2018 None Full Exam - General 1994 Constitutional general appearance Development: well developed 10/04/2018 None Full Exam - General 1994 Constitutional general appearance Development: appears stated age 0110/04/2018 None Full Exam - General 1994 Constitutional general appearance Hygiene/Attention to Grooming: good hygiene 10/04/2018 None Full Exam - General 1994 Eyes conjunctiva /eyelids Overall: conjunctiva clear 10/04/2018 None Full Exam - General 1994 Eyes conjunctiva /eyelids Overall: cornea clear 10/04/2018 None Full Exam - General 1994 Eyes conjunctiva /eyelids Overall: eyelids normal 10/04/2018 None Full Exam - General 1994 Eyes pupils and irises Overall: pupils equal, round, reactive to light and accomodation 10/04/2018 None Full Exam - General 1994 Ears/Nose/Throat lips/teeth/gingiva Teeth: edentulous 10/04/2018 None Full Exam - General 1994 Respiratory auscultation Overall: breath sounds clear bilaterally 10/04/2018 None Full Exam - General 1994 Respiratory respiratory effort/rhythm Overall: no retractions 10/04/2018 None Full Exam - General 1994 Respiratory respiratory effort/rhythm Overall: normal rate 10/04/2018 None Full Exam - General 1994 Cardiovascular extremities Overall: no clubbing 10/04/2018 None Full Exam - General 1994 Cardiovascular auscultation of heart Overall: regular rate 10/04/2018 None Full Exam - General 1995 Cardiovascular auscultation of heart Overall: normal heart sounds 10/04/2018 None Full Exam - General 1994 Cardiovascular auscultation of heart Systolic murmur: early systolic 10/04/2018 None Full Exam - General 1994 Cardiovascular auscultation of heart Systolic murmur grade: II/ 10/04/2018 None Full Exam - General 1994 Abdomen abdominal exam Overall: normal bowel sounds 10/04/2018 None Full Exam - General 1995 Lymphatic neck nodes Overall: anterior cervical chain benign 10/04/2018 None Full Exam - General 1995 Lymphatic neck nodes Overall: posterior cervical chain benign 10/04/2018 None Full Exam - General 1994 Musculoskeletal spine, ribs and pelvis Posture: kyphosis 10/04/2018 None Full Exam - General 1994 Musculoskeletal head and neck Overall: head atraumatic 10/04/2018 None Full Exam - General 1994 Musculoskeletal head and neck Overall: cervical spine benign 10/04/2018 None Full Exam - General 1994 Integument inspection of skin Overall: few scattered moles, no gross abnormalities 10/04/2018 None Full Exam - General 1994 Neurologic cranial nerves Overall: crainial nerves 2 - 12 grossly intact 10/04/2018 None Full Exam - General 1994 Psychiatric orientation/consciousness Overall: oriented to person, place and time 10/04/2018 None Full Exam - General 1994 Psychiatric mood and affect Overall: normal mood and affect 10/04/2018 None Full Exam - General 1994 Neurologic sensation Touch: (specify location of deficit): light touch decreased [id number] 10/04/2018 None Full Exam - General 1994 Constitutional general appearance Development: well developed 08/29/2018 None Full Exam - General 1994 Constitutional general appearance Development: appears stated age 1208/29/2018 None Full Exam - General 1994 Constitutional general appearance Hygiene/Attention to Grooming: good hygiene 08/29/2018 None Full Exam - General 1994 Eyes conjunctiva /eyelids Overall: conjunctiva clear 08/29/2018 None Full Exam - General 1994 Eyes conjunctiva /eyelids Overall: cornea clear 08/29/2018 None Full Exam - General 1994 Eyes conjunctiva /eyelids Overall: eyelids normal 08/29/2018 None Full Exam - General 1994 Eyes pupils and irises Overall: pupils equal, round, reactive to light and accomodation 08/29/2018 None Full Exam - General 1994 Respiratory auscultation Overall: breath sounds clear bilaterally 08/29/2018 None Full Exam - General 1994 Respiratory respiratory effort/rhythm Overall: no retractions 08/29/2018 None Full Exam - General 1994 Respiratory respiratory effort/rhythm Overall: normal rate 08/29/2018 None Full Exam - General 1994 Cardiovascular extremities Overall: no clubbing 08/29/2018 None Full Exam - General 1994 Cardiovascular auscultation of heart Overall: regular rate 08/29/2018 None Full Exam - General 1994 Cardiovascular auscultation of heart Overall: normal heart sounds 08/29/2018 None Full Exam - General 1994 Cardiovascular auscultation of heart Systolic murmur: early systolic 08/29/2018 None Full Exam - General 1994 Cardiovascular auscultation of heart Systolic murmur grade: II/ 08/29/2018 None Full Exam - General 1994 Abdomen abdominal exam Overall: normal bowel sounds 08/29/2018 None Full Exam - General 1994 Lymphatic neck nodes Overall: anterior cervical chain benign 08/29/2018 None Full Exam - General 1994 Lymphatic neck nodes Overall: posterior cervical chain benign 08/29/2018 None Full Exam - General 1994 Musculoskeletal spine, ribs and pelvis Posture: kyphosis 08/29/2018 None Full Exam - General 1994 Musculoskeletal head and neck Overall: head atraumatic 08/29/2018 None Full Exam - General 1994 Musculoskeletal head and neck Overall: cervical spine benign 08/29/2018 None Full Exam - General 1994 Integument inspection of skin Overall: few scattered moles, no gross abnormalities 08/29/2018 None Full Exam - General 1994 Neurologic cranial nerves Overall: crainial nerves 2 - 12 grossly intact 08/29/2018 None Full Exam - General 1994 Psychiatric orientation/consciousness Overall: oriented to person, place and time 08/29/2018 None Full Exam - General 1994 Psychiatric mood and affect Overall: normal mood and affect 08/29/2018 None Full Exam - General 1994 Ears/Nose/Throat lips/teeth/gingiva Teeth: edentulous 08/29/2018 None Full Exam - General 1994 Constitutional general appearance Overall: well developed 02/25/2018 None Full Exam - General 1994 Constitutional general appearance Overall: in no acute distress 02/25/2018 None Full Exam - General 1994 Constitutional general appearance Nourishment: obese 02/25/2018 None Full Exam - General 1994 Eyes conjunctiva /eyelids Overall: eyelids normal 02/25/2018 None Full Exam - General 1994 Ears/Nose/Throat lips/teeth/gingiva Overall: benign lips 02/25/2018 None Full Exam - General 1994 Ears/Nose/Throat oral cavity/pharynx/larynx Overall: oral mucosa clear 02/25/2018 None Full Exam - General 1994 Respiratory auscultation Overall: breath sounds clear bilaterally 02/25/2018 None Full Exam - General 1994 Respiratory respiratory effort/rhythm Overall: no retractions 02/25/2018 None Full Exam - General 1994 Respiratory respiratory effort/rhythm Overall: normal rate 02/25/2018 None Full Exam - General 1994 Cardiovascular auscultation of heart Overall: regular rate 02/25/2018 None Full Exam - General 1994 Cardiovascular auscultation of heart Systolic murmur: early systolic 02/25/2018 None Full Exam - General 1994 Cardiovascular auscultation of heart Systolic murmur grade: II/ 02/25/2018 None Full Exam - General 1994 Abdomen abdominal exam Overall: normal bowel sounds 02/25/2018 None Full Exam - General 1994 Abdomen abdominal exam Upper quadrant: non-tender to palpation 02/25/2018 None Full Exam - General 1994 Abdomen abdominal exam Upper quadrant: no guarding 02/25/2018 None Full Exam - General 1994 Abdomen abdominal exam Upper quadrant: no rebound tenderness 02/25/2018 None Full Exam - General 1994 Abdomen abdominal exam Lower quadrant: non-tender to palpation 02/25/2018 None Full Exam - General 1994 Abdomen abdominal exam Lower quadrant: no guarding 02/25/2018 None Full Exam - General 1994 Abdomen abdominal exam Lower quadrant: no rebound tenderness 02/25/2018 None Full Exam - General 1994 Abdomen abdominal exam Epigastric: non-tender to palpation 02/25/2018 reducible hernia noted Full Exam - General 1994 Abdomen abdominal exam Epigastric: no guarding 02/25/2018 None Full Exam - General 1994 Musculoskeletal gait and station Overall: normal gait 02/25/2018 None Full Exam - General 1994 Musculoskeletal gait and station Overall: normal station 02/25/2018 None Full Exam - General 1994 Musculoskeletal head and neck Overall: head atraumatic 02/25/2018 None Full Exam - General 1994 Integument inspection of skin Pigmentation: jaundice 02/25/2018 None Full Exam - General 1994 Neurologic cranial nerves Overall: crainial nerves 2 - 12 grossly intact 02/25/2018 None Full Exam - General 1994 Psychiatric orientation/consciousness Overall: oriented to person, place and time 02/25/2018 None Full Exam - General 1994 Psychiatric mood and affect Overall: normal mood and affect 02/25/2018 None Full Exam - General 1994 Constitutional general appearance Hygiene/Attention to Grooming: good hygiene 02/25/2018 None Full Exam - General 1994 Constitutional general appearance Development: appears stated age 0602/25/2018 None Full Exam - General 1994 Eyes conjunctiva /eyelids Overall: conjunctiva clear 02/25/2018 None Full Exam - General 1994 Constitutional general appearance Overall: well developed 02/20/2018 None Full Exam - General 1994 Constitutional general appearance Overall: in no acute distress 02/20/2018 None Full Exam - General 1994 Constitutional general appearance Nourishment: obese 02/20/2018 None Full Exam - General 1994 Eyes conjunctiva /eyelids Overall: eyelids normal 02/20/2018 None Full Exam - General 1994 Eyes conjunctiva /eyelids Conjunctiva: clear 02/20/2018 Jaundice Full Exam - General 1994 Ears/Nose/Throat lips/teeth/gingiva Overall: benign lips 02/20/2018 None Full Exam - General 1994 Ears/Nose/Throat oral cavity/pharynx/larynx Overall: oral mucosa clear 02/20/2018 None Full Exam - General 1994 Respiratory auscultation Overall: breath sounds clear bilaterally 02/20/2018 None Full Exam - General 1994 Respiratory auscultation Diffuse: diminished 02/20/2018 None Full Exam - General 1994 Respiratory respiratory effort/rhythm Overall: normal rate 02/20/2018 None Full Exam - General 1994 Respiratory respiratory effort/rhythm Overall: no retractions 02/20/2018 None Full Exam - General 1994 Cardiovascular auscultation of heart Overall: regular rate 02/20/2018 None Full Exam - General 1994 Cardiovascular auscultation of heart Systolic murmur: early systolic 02/20/2018 None Full Exam - General 1994 Cardiovascular auscultation of heart Systolic murmur grade: II/ 02/20/2018 None Full Exam - General 1994 Abdomen abdominal exam Overall: normal bowel sounds 02/20/2018 None Full Exam - General 1994 Abdomen abdominal exam Upper quadrant: non-tender to palpation 02/20/2018 None Full Exam - General 1994 Abdomen abdominal exam Upper quadrant: no guarding 02/20/2018 None Full Exam - General 1994 Abdomen abdominal exam Upper quadrant: no rebound tenderness 02/20/2018 None Full Exam - General 1994 Abdomen abdominal exam Lower quadrant: non-tender to palpation 02/20/2018 None Full Exam - General 1994 Abdomen abdominal exam Lower quadrant: no guarding 02/20/2018 None Full Exam - General 1994 Abdomen abdominal exam Lower quadrant: no rebound tenderness 02/20/2018 None Full Exam - General 1994 Abdomen abdominal exam Epigastric: non-tender to palpation 02/20/2018 reducible hernia noted Full Exam - General 1994 Abdomen abdominal exam Epigastric: no guarding 02/20/2018 None Full Exam - General 1994 Musculoskeletal head and neck Overall: head atraumatic 02/20/2018 None Full Exam - General 1994 Musculoskeletal gait and station Overall: normal station 02/20/2018 None Full Exam - General 1994 Musculoskeletal gait and station Overall: normal gait 02/20/2018 None Full Exam - General 1994 Integument inspection of skin Pigmentation: jaundice 02/20/2018 None Full Exam - General 1994 Neurologic cranial nerves Overall: crainial nerves 2 - 12 grossly intact 02/20/2018 None Full Exam - General 1994 Psychiatric orientation/consciousness Overall: oriented to person, place and time 02/20/2018 None Full Exam - General 1994 Psychiatric mood and affect Overall: normal mood and affect 02/20/2018 None Full Exam - General 1994 Constitutional general appearance Development: well developed 02/05/2018 None Full Exam - General 1994 Constitutional general appearance Development: appears stated age 0502/05/2018 None Full Exam - General 1994 Constitutional general appearance Hygiene/Attention to Grooming: good hygiene 02/05/2018 None Full Exam - General 1994 Eyes conjunctiva /eyelids Overall: conjunctiva clear 02/05/2018 None Full Exam - General 1994 Eyes conjunctiva /eyelids Overall: cornea clear 02/05/2018 None Full Exam - General 1994 Eyes conjunctiva /eyelids Overall: eyelids normal 02/05/2018 None Full Exam - General 1994 Eyes pupils and irises Overall: pupils equal, round, reactive to light and accomodation 02/05/2018 None Full Exam - General 1994 Respiratory auscultation Overall: breath sounds clear bilaterally 02/05/2018 None Full Exam - General 1994 Respiratory respiratory effort/rhythm Overall: no retractions 02/05/2018 None Full Exam - General 1994 Respiratory respiratory effort/rhythm Overall: normal rate 02/05/2018 None Full Exam - General 1994 Cardiovascular extremities Overall: no clubbing 02/05/2018 None Full Exam - General 1994 Cardiovascular auscultation of heart Overall: regular rate 02/05/2018 None Full Exam - General 1994 Cardiovascular auscultation of heart Overall: normal heart sounds 02/05/2018 None Full Exam - General 1994 Cardiovascular auscultation of heart Systolic murmur: early systolic 02/05/2018 None Full Exam - General 1994 Cardiovascular auscultation of heart Systolic murmur grade: II/ 02/05/2018 None Full Exam - General 1994 Abdomen abdominal exam Overall: normal bowel sounds 02/05/2018 None Full Exam - General 1994 Lymphatic neck nodes Overall: anterior cervical chain benign 02/05/2018 None Full Exam - General 1994 Lymphatic neck nodes Overall: posterior cervical chain benign 02/05/2018 None Full Exam - General 1994 Musculoskeletal spine, ribs and pelvis Posture: kyphosis 02/05/2018 None Full Exam - General 1994 Musculoskeletal head and neck Overall: head atraumatic 02/05/2018 None Full Exam - General 1994 Musculoskeletal head and neck Overall: cervical spine benign 02/05/2018 None Full Exam - General 1994 Integument inspection of skin Overall: few scattered moles, no gross abnormalities 02/05/2018 None Full Exam - General 1994 Neurologic cranial nerves Overall: crainial nerves 2 - 12 grossly intact 02/05/2018 None Full Exam - General 1994 Psychiatric orientation/consciousness Overall: oriented to person, place and time 02/05/2018 None Full Exam - General 1994 Psychiatric mood and affect Overall: normal mood and affect 02/05/2018 None Full Exam - General 1994 Constitutional general appearance Development: well developed 11/30/2017 None Full Exam - General 1994 Constitutional general appearance Development: appears stated age 0311/30/2017 None Full Exam - General 1994 Constitutional general appearance Hygiene/Attention to Grooming: good hygiene 11/30/2017 None Full Exam - General 1994 Eyes conjunctiva /eyelids Overall: conjunctiva clear 11/30/2017 None Full Exam - General 1994 Eyes conjunctiva /eyelids Overall: cornea clear 11/30/2017 None Full Exam - General 1994 Eyes conjunctiva /eyelids Overall: eyelids normal 11/30/2017 None Full Exam - General 1994 Eyes pupils and irises Overall: pupils equal, round, reactive to light and accomodation 11/30/2017 None Full Exam - General 1994 Respiratory auscultation Overall: breath sounds clear bilaterally 11/30/2017 None Full Exam - General 1994 Respiratory respiratory effort/rhythm Overall: no retractions 11/30/2017 None Full Exam - General 1994 Respiratory respiratory effort/rhythm Overall: normal rate 11/30/2017 None Full Exam - General 1994 Cardiovascular extremities Overall: no clubbing 11/30/2017 None Full Exam - General 1994 Cardiovascular auscultation of heart Overall: regular rate 11/30/2017 None Full Exam - General 1994 Cardiovascular auscultation of heart Overall: normal heart sounds 11/30/2017 None Full Exam - General 1994 Cardiovascular auscultation of heart Systolic murmur: early systolic 11/30/2017 None Full Exam - General 1994 Cardiovascular auscultation of heart Systolic murmur grade: II/ 11/30/2017 None Full Exam - General 1994 Abdomen abdominal exam Overall: normal bowel sounds 11/30/2017 None Full Exam - General 1994 Lymphatic neck nodes Overall: anterior cervical chain benign 11/30/2017 None Full Exam - General 1994 Lymphatic neck nodes Overall: posterior cervical chain benign 11/30/2017 None Full Exam - General 1994 Musculoskeletal spine, ribs and pelvis Posture: kyphosis 11/30/2017 None Full Exam - General 1994 Musculoskeletal head and neck Overall: head atraumatic 11/30/2017 None Full Exam - General 1994 Musculoskeletal head and neck Overall: cervical spine benign 11/30/2017 None Full Exam - General 1994 Integument inspection of skin Overall: few scattered moles, no gross abnormalities 11/30/2017 None Full Exam - General 1994 Neurologic cranial nerves Overall: crainial nerves 2 - 12 grossly intact 11/30/2017 None Full Exam - General 1994 Psychiatric orientation/consciousness Overall: oriented to person, place and time 11/30/2017 None Full Exam - General 1994 Psychiatric mood and affect Overall: normal mood and affect 11/30/2017 None Full Exam - General 1994 Constitutional general appearance Development: well developed 11/08/2017 None Full Exam - General 1994 Constitutional general appearance Development: appears stated age 0211/08/2017 None Full Exam - General 1994 Constitutional general appearance Hygiene/Attention to Grooming: good hygiene 11/08/2017 None Full Exam - General 1994 Eyes conjunctiva /eyelids Overall: conjunctiva clear 11/08/2017 None Full Exam - General 1994 Eyes conjunctiva /eyelids Overall: cornea clear 11/08/2017 None Full Exam - General 1994 Eyes conjunctiva /eyelids Overall: eyelids normal 11/08/2017 None Full Exam - General 1995 Eyes pupils and irises Overall: pupils equal, round, reactive to light and accomodation 11/08/2017 None Full Exam - General 1994 Respiratory auscultation Overall: breath sounds clear bilaterally 11/08/2017 None Full Exam - General 1994 Respiratory respiratory effort/rhythm Overall: no retractions 11/08/2017 None Full Exam - General 1994 Respiratory respiratory effort/rhythm Overall: normal rate 11/08/2017 None Full Exam - General 1994 Cardiovascular extremities Overall: no clubbing 11/08/2017 None Full Exam - General 1994 Cardiovascular extremities Edema present: pitting 11/08/2017 2+ Full Exam - General 1994 Cardiovascular auscultation of heart Overall: regular rate 11/08/2017 None Full Exam - General 1994 Cardiovascular auscultation of heart Overall: normal heart sounds 11/08/2017 None Full Exam - General 1994 Cardiovascular auscultation of heart Systolic murmur: early systolic 11/08/2017 None Full Exam - General 1994 Cardiovascular auscultation of heart Systolic murmur grade: II/ 11/08/2017 None Full Exam - General 1994 Abdomen abdominal exam Overall: normal bowel sounds 11/08/2017 None Full Exam - General 1994 Lymphatic neck nodes Overall: anterior cervical chain benign 11/08/2017 None Full Exam - General 1994 Lymphatic neck nodes Overall: posterior cervical chain benign 11/08/2017 None Full Exam - General 1994 Musculoskeletal spine, ribs and pelvis Posture: kyphosis 11/08/2017 None Full Exam - General 1994 Musculoskeletal head and neck Overall: head atraumatic 11/08/2017 None Full Exam - General 1994 Musculoskeletal head and neck Overall: cervical spine benign 11/08/2017 None Full Exam - General 1994 Neurologic cranial nerves Overall: crainial nerves 2 - 12 grossly intact 11/08/2017 None Full Exam - General 1994 Psychiatric orientation/consciousness Overall: oriented to person, place and time 11/08/2017 None Full Exam - General 1994 Psychiatric mood and affect Overall: normal mood and affect 11/08/2017 None Full Exam - General 1994 Constitutional general appearance Development: well developed 09/20/2017 None Full Exam - General 1994 Constitutional general appearance Development: appears stated age 0109/20/2017 None Full Exam - General 1994 Constitutional general appearance Hygiene/Attention to Grooming: good hygiene 09/20/2017 None Full Exam - General 1994 Eyes conjunctiva /eyelids Overall: conjunctiva clear 09/20/2017 None Full Exam - General 1994 Eyes conjunctiva /eyelids Overall: cornea clear 09/20/2017 None Full Exam - General 1994 Eyes conjunctiva /eyelids Overall: eyelids normal 09/20/2017 None Full Exam - General 1994 Eyes pupils and irises Overall: pupils equal, round, reactive to light and accomodation 09/20/2017 None Full Exam - General 1994 Respiratory auscultation Overall: breath sounds clear bilaterally 09/20/2017 None Full Exam - General 1994 Respiratory respiratory effort/rhythm Overall: no retractions 09/20/2017 None Full Exam - General 1994 Respiratory respiratory effort/rhythm Overall: normal rate 09/20/2017 None Full Exam - General 1994 Cardiovascular extremities Overall: no clubbing 09/20/2017 None Full Exam - General 1994 Cardiovascular extremities Edema present: pitting 09/20/2017 2+ Full Exam - General 1994 Cardiovascular auscultation of heart Overall: regular rate 09/20/2017 None Full Exam - General 1994 Cardiovascular auscultation of heart Overall: normal heart sounds 09/20/2017 None Full Exam - General 1994 Cardiovascular auscultation of heart Systolic murmur: early systolic 09/20/2017 None Full Exam - General 1994 Cardiovascular auscultation of heart Systolic murmur grade: II/ 09/20/2017 None Full Exam - General 1994 Abdomen abdominal exam Overall: normal bowel sounds 09/20/2017 None Full Exam - General 1994 Lymphatic neck nodes Overall: anterior cervical chain benign 09/20/2017 None Full Exam - General 1994 Lymphatic neck nodes Overall: posterior cervical chain benign 09/20/2017 None Full Exam - General 1994 Musculoskeletal spine, ribs and pelvis Posture: kyphosis 09/20/2017 None Full Exam - General 1994 Musculoskeletal head and neck Overall: head atraumatic 09/20/2017 None Full Exam - General 1994 Musculoskeletal head and neck Overall: cervical spine benign 09/20/2017 None Full Exam - General 1994 Neurologic cranial nerves Overall: crainial nerves 2 - 12 grossly intact 09/20/2017 None Full Exam - General 1994 Psychiatric orientation/consciousness Overall: oriented to person, place and time 09/20/2017 None Full Exam - General 1994 Psychiatric mood and affect Overall: normal mood and affect 09/20/2017 None Full Exam - General 1994 Constitutional general appearance Development: well developed 06/25/2017 None Full Exam - General 1994 Constitutional general appearance Development: appears stated age 1006/25/2017 None Full Exam - General 1994 Constitutional general appearance Hygiene/Attention to Grooming: good hygiene 06/25/2017 None Full Exam - General 1994 Eyes conjunctiva /eyelids Overall: conjunctiva clear 06/25/2017 None Full Exam - General 1994 Eyes conjunctiva /eyelids Overall: cornea clear 06/25/2017 None Full Exam - General 1994 Eyes conjunctiva /eyelids Overall: eyelids normal 06/25/2017 None Full Exam - General 1994 Eyes pupils and irises Overall: pupils equal, round, reactive to light and accomodation 06/25/2017 None Full Exam - General 1994 Respiratory auscultation Overall: breath sounds clear bilaterally 06/25/2017 None Full Exam - General 1994 Respiratory respiratory effort/rhythm Overall: no retractions 06/25/2017 None Full Exam - General 1994 Respiratory respiratory effort/rhythm Overall: normal rate 06/25/2017 None Full Exam - General 1994 Cardiovascular extremities Overall: no clubbing 06/25/2017 None Full Exam - General 1994 Cardiovascular extremities Edema present: pitting 06/25/2017 2+ Full Exam - General 1994 Cardiovascular auscultation of heart Overall: regular rate 06/25/2017 None Full Exam - General 1994 Cardiovascular auscultation of heart Overall: normal heart sounds 06/25/2017 None Full Exam - General 1994 Cardiovascular auscultation of heart Systolic murmur: early systolic 06/25/2017 None Full Exam - General 1994 Cardiovascular auscultation of heart Systolic murmur grade: II/ 06/25/2017 None Full Exam - General 1994 Abdomen abdominal exam Overall: normal bowel sounds 06/25/2017 None Full Exam - General 1994 Lymphatic neck nodes Overall: anterior cervical chain benign 06/25/2017 None Full Exam - General 1994 Lymphatic neck nodes Overall: posterior cervical chain benign 06/25/2017 None Full Exam - General 1994 Musculoskeletal spine, ribs and pelvis Posture: kyphosis 06/25/2017 None Full Exam - General 1994 Musculoskeletal head and neck Overall: head atraumatic 06/25/2017 None Full Exam - General 1994 Musculoskeletal head and neck Overall: cervical spine benign 06/25/2017 None Full Exam - General 1994 Neurologic cranial nerves Overall: crainial nerves 2 - 12 grossly intact 06/25/2017 None Full Exam - General 1994 Psychiatric orientation/consciousness Overall: oriented to person, place and time 06/25/2017 None Full Exam - General 1994 Psychiatric mood and affect Overall: normal mood and affect 06/25/2017 None Full Exam - General 1994 Constitutional general appearance Development: well developed 06/07/2017 None Full Exam - General 1994 Constitutional general appearance Development: appears stated age 0906/07/2017 None Full Exam - General 1994 Constitutional general appearance Hygiene/Attention to Grooming: good hygiene 06/07/2017 None Full Exam - General 1994 Eyes conjunctiva /eyelids Overall: conjunctiva clear 06/07/2017 None Full Exam - General 1994 Eyes conjunctiva /eyelids Overall: cornea clear 06/07/2017 None Full Exam - General 1994 Eyes conjunctiva /eyelids Overall: eyelids normal 06/07/2017 None Full Exam - General 1994 Eyes pupils and irises Overall: pupils equal, round, reactive to light and accomodation 06/07/2017 None Full Exam - General 1994 Respiratory auscultation Overall: breath sounds clear bilaterally 06/07/2017 None Full Exam - General 1994 Respiratory respiratory effort/rhythm Overall: no retractions 06/07/2017 None Full Exam - General 1994 Respiratory respiratory effort/rhythm Overall: normal rate 06/07/2017 None Full Exam - General 1994 Cardiovascular extremities Overall: no clubbing 06/07/2017 None Full Exam - General 1994 Cardiovascular extremities Edema present: pitting 06/07/2017 2-3+ Full Exam - General 1994 Cardiovascular auscultation of heart Overall: regular rate 06/07/2017 None Full Exam - General 1994 Cardiovascular auscultation of heart Overall: normal heart sounds 06/07/2017 None Full Exam - General 1994 Cardiovascular auscultation of heart Systolic murmur: early systolic 06/07/2017 None Full Exam - General 1994 Cardiovascular auscultation of heart Systolic murmur grade: II/ 06/07/2017 None Full Exam - General 1994 Abdomen abdominal exam Overall: normal bowel sounds 06/07/2017 None Full Exam - General 1994 Lymphatic neck nodes Overall: anterior cervical chain benign 06/07/2017 None Full Exam - General 1994 Lymphatic neck nodes Overall: posterior cervical chain benign 06/07/2017 None Full Exam - General 1994 Musculoskeletal spine, ribs and pelvis Posture: kyphosis 06/07/2017 None Full Exam - General 1994 Musculoskeletal head and neck Overall: head atraumatic 06/07/2017 None Full Exam - General 1994 Musculoskeletal head and neck Overall: cervical spine benign 06/07/2017 None Full Exam - General 1994 Integument inspection of skin Dermatitis: scaling 06/07/2017 None Full Exam - General 1994 Integument inspection of skin Dermatitis: thickened 06/07/2017 None Full Exam - General 1994 Integument inspection of skin Location: left leg 06/07/2017 None Full Exam - General 1994 Integument inspection of skin Location: left foot 06/07/2017 None Full Exam - General 1994 Integument inspection of skin Pigmentation: erythematous 06/07/2017 to mid thigh Full Exam - General 1994 Neurologic cranial nerves Overall: crainial nerves 2 - 12 grossly intact 06/07/2017 None Full Exam - General 1994 Psychiatric orientation/consciousness Overall: oriented to person, place and time 06/07/2017 None Full Exam - General 1994 Psychiatric mood and affect Overall: normal mood and affect 06/07/2017 None Full Exam - General 1994 Constitutional general appearance Development: well developed 05/03/2017 None Full Exam - General 1994 Constitutional general appearance Development: appears stated age 0805/03/2017 None Full Exam - General 1994 Constitutional general appearance Hygiene/Attention to Grooming: good hygiene 05/03/2017 None Full Exam - General 1994 Eyes conjunctiva /eyelids Overall: conjunctiva clear 05/03/2017 None Full Exam - General 1994 Eyes conjunctiva /eyelids Overall: cornea clear 05/03/2017 None Full Exam - General 1994 Eyes conjunctiva /eyelids Overall: eyelids normal 05/03/2017 None Full Exam - General 1994 Eyes pupils and irises Overall: pupils equal, round, reactive to light and accomodation 05/03/2017 None Full Exam - General 1994 Respiratory auscultation Overall: breath sounds clear bilaterally 05/03/2017 None Full Exam - General 1994 Respiratory respiratory effort/rhythm Overall: no retractions 05/03/2017 None Full Exam - General 1994 Respiratory respiratory effort/rhythm Overall: normal rate 05/03/2017 None Full Exam - General 1994 Cardiovascular extremities Overall: no clubbing 05/03/2017 None Full Exam - General 1994 Cardiovascular extremities Edema present: pitting 05/03/2017 2-3+ Full Exam - General 1994 Cardiovascular auscultation of heart Overall: regular rate 05/03/2017 None Full Exam - General 1994 Cardiovascular auscultation of heart Overall: normal heart sounds 05/03/2017 None Full Exam - General 1994 Cardiovascular auscultation of heart Systolic murmur: early systolic 05/03/2017 None Full Exam - General 1994 Cardiovascular auscultation of heart Systolic murmur grade: II/ 05/03/2017 None Full Exam - General 1994 Abdomen abdominal exam Overall: normal bowel sounds 05/03/2017 None Full Exam - General 1994 Lymphatic neck nodes Overall: anterior cervical chain benign 05/03/2017 None Full Exam - General 1994 Lymphatic neck nodes Overall: posterior cervical chain benign 05/03/2017 None Full Exam - General 1994 Musculoskeletal spine, ribs and pelvis Posture: kyphosis 05/03/2017 None Full Exam - General 1994 Musculoskeletal head and neck Overall: head atraumatic 05/03/2017 None Full Exam - General 1994 Musculoskeletal head and neck Overall: cervical spine benign 05/03/2017 None Full Exam - General 1994 Integument inspection of skin Dermatitis: scaling 05/03/2017 None Full Exam - General 1994 Integument inspection of skin Dermatitis: thickened 05/03/2017 None Full Exam - General 1994 Integument inspection of skin Location: left leg 05/03/2017 None Full Exam - General 1994 Integument inspection of skin Location: left foot 05/03/2017 None Full Exam - General 1994 Integument inspection of skin Pigmentation: erythematous 05/03/2017 None Full Exam - General 1994 Neurologic cranial nerves Overall: crainial nerves 2 - 12 grossly intact 05/03/2017 None Full Exam - General 1994 Psychiatric orientation/consciousness Overall: oriented to person, place and time 05/03/2017 None Full Exam - General 1994 Psychiatric mood and affect Overall: normal mood and affect 05/03/2017 None Full Exam - General 1994 Constitutional general appearance Development: well developed 04/02/2017 None Full Exam - General 1994 Constitutional general appearance Development: appears stated age 0704/02/2017 None Full Exam - General 1994 Constitutional general appearance Hygiene/Attention to Grooming: good hygiene 04/02/2017 None Full Exam - General 1994 Eyes conjunctiva /eyelids Overall: conjunctiva clear 04/02/2017 None Full Exam - General 1994 Eyes conjunctiva /eyelids Overall: cornea clear 04/02/2017 None Full Exam - General 1994 Eyes conjunctiva /eyelids Overall: eyelids normal 04/02/2017 None Full Exam - General 1994 Eyes pupils and irises Overall: pupils equal, round, reactive to light and accomodation 04/02/2017 None Full Exam - General 1994 Respiratory auscultation Overall: breath sounds clear bilaterally 04/02/2017 None Full Exam - General 1994 Respiratory respiratory effort/rhythm Overall: no retractions 04/02/2017 None Full Exam - General 1994 Respiratory respiratory effort/rhythm Overall: normal rate 04/02/2017 None Full Exam - General 1994 Cardiovascular extremities Overall: no clubbing 04/02/2017 None Full Exam - General 1994 Cardiovascular extremities Edema present: pitting 04/02/2017 None Full Exam - General 1994 Cardiovascular extremities Edema present: severity 1+ - 4 +: 4+ bilateral to mid thigh-weeping left lower leg 2016 None Full Exam - General 1994 Cardiovascular auscultation of heart Overall: regular rate 04/02/2017 None Full Exam - General 1994 Cardiovascular auscultation of heart Overall: normal heart sounds 04/02/2017 None Full Exam - General 1994 Cardiovascular auscultation of heart Systolic murmur: early systolic 04/02/2017 None Full Exam - General 1994 Cardiovascular auscultation of heart Systolic murmur grade: II/ 04/02/2017 None Full Exam - General 1994 Abdomen abdominal exam Overall: normal bowel sounds 04/02/2017 None Full Exam - General 1994 Lymphatic neck nodes Overall: anterior cervical chain benign 04/02/2017 None Full Exam - General 1994 Lymphatic neck nodes Overall: posterior cervical chain benign 04/02/2017 None Full Exam - General 1994 Musculoskeletal spine, ribs and pelvis Posture: kyphosis 04/02/2017 None Full Exam - General 1994 Musculoskeletal head and neck Overall: head atraumatic 04/02/2017 None Full Exam - General 1994 Musculoskeletal head and neck Overall: cervical spine benign 04/02/2017 None Full Exam - General 1994 Integument inspection of skin Dermatitis: scaling 04/02/2017 None Full Exam - General 1994 Integument inspection of skin Dermatitis: thickened 04/02/2017 None Full Exam - General 1994 Integument inspection of skin Location: left leg 04/02/2017 None Full Exam - General 1994 Integument inspection of skin Location: left foot 04/02/2017 None Full Exam - General 1994 Integument inspection of skin Pigmentation: erythematous 04/02/2017 -improved-leg wrapped from toes to knee -erythema decreased Full Exam - General 1994 Neurologic cranial nerves Overall: crainial nerves 2 - 12 grossly intact 04/02/2017 None Full Exam - General 1994 Psychiatric orientation/consciousness Overall: oriented to person, place and time 04/02/2017 None Full Exam - General 1994 Psychiatric mood and affect Overall: normal mood and affect 04/02/2017 None Full Exam - General 1994 Constitutional general appearance Development: well developed 03/26/2017 None Full Exam - General 1994 Constitutional general appearance Development: appears stated age 0703/26/2017 None Full Exam - General 1994 Constitutional general appearance Hygiene/Attention to Grooming: good hygiene 03/26/2017 None Full Exam - General 1994 Eyes conjunctiva /eyelids Overall: conjunctiva clear 03/26/2017 None Full Exam - General 1994 Eyes conjunctiva /eyelids Overall: cornea clear 03/26/2017 None Full Exam - General 1994 Eyes conjunctiva /eyelids Overall: eyelids normal 03/26/2017 None Full Exam - General 1994 Eyes pupils and irises Overall: pupils equal, round, reactive to light and accomodation 03/26/2017 None Full Exam - General 1994 Respiratory auscultation Overall: breath sounds clear bilaterally 03/26/2017 None Full Exam - General 1994 Respiratory respiratory effort/rhythm Overall: no retractions 03/26/2017 None Full Exam - General 1994 Respiratory respiratory effort/rhythm Overall: normal rate 03/26/2017 None Full Exam - General 1994 Cardiovascular extremities Overall: no clubbing 03/26/2017 None Full Exam - General 1994 Cardiovascular extremities Edema present: pitting 03/26/2017 None Full Exam - General 1994 Cardiovascular extremities Edema present: severity 1+ - 4 +: 4+ bilateral to mid thigh-weeping left lower leg 2016 None Full Exam - General 1994 Cardiovascular auscultation of heart Overall: regular rate 03/26/2017 None Full Exam - General 1994 Cardiovascular auscultation of heart Overall: normal heart sounds 03/26/2017 None Full Exam - General 1994 Cardiovascular auscultation of heart Systolic murmur: early systolic 03/26/2017 None Full Exam - General 1994 Cardiovascular auscultation of heart Systolic murmur grade: II/ 03/26/2017 None Full Exam - General 1994 Abdomen abdominal exam Overall: normal bowel sounds 03/26/2017 None Full Exam - General 1994 Lymphatic neck nodes Overall: anterior cervical chain benign 03/26/2017 None Full Exam - General 1994 Lymphatic neck nodes Overall: posterior cervical chain benign 03/26/2017 None Full Exam - General 1994 Musculoskeletal spine, ribs and pelvis Posture: kyphosis 03/26/2017 None Full Exam - General 1994 Musculoskeletal head and neck Overall: head atraumatic 03/26/2017 None Full Exam - General 1994 Musculoskeletal head and neck Overall: cervical spine benign 03/26/2017 None Full Exam - General 1994 Integument inspection of skin Dermatitis: scaling 03/26/2017 None Full Exam - General 1994 Integument inspection of skin Dermatitis: thickened 03/26/2017 None Full Exam - General 1994 Integument inspection of skin Location: left leg 03/26/2017 None Full Exam - General 1994 Integument inspection of skin Location: left foot 03/26/2017 None Full Exam - General 1994 Integument inspection of skin Pigmentation: erythematous 03/26/2017 None Full Exam - General 1994 Neurologic cranial nerves Overall: crainial nerves 2 - 12 grossly intact 03/26/2017 None Full Exam - General 1994 Psychiatric orientation/consciousness Overall: oriented to person, place and time 03/26/2017 None Full Exam - General 1994 Psychiatric mood and affect Overall: normal mood and affect 03/26/2017 None Full Exam - General 1994 Constitutional general appearance Development: well developed 03/22/2017 None Full Exam - General 1994 Constitutional general appearance Development: appears stated age 0703/22/2017 None Full Exam - General 1994 Constitutional general appearance Hygiene/Attention to Grooming: good hygiene 03/22/2017 None Full Exam - General 1994 Eyes conjunctiva /eyelids Overall: conjunctiva clear 03/22/2017 None Full Exam - General 1994 Eyes conjunctiva /eyelids Overall: cornea clear 03/22/2017 None Full Exam - General 1994 Eyes conjunctiva /eyelids Overall: eyelids normal 03/22/2017 None Full Exam - General 1994 Eyes pupils and irises Overall: pupils equal, round, reactive to light and accomodation 03/22/2017 None Full Exam - General 1994 Respiratory auscultation Overall: breath sounds clear bilaterally 03/22/2017 None Full Exam - General 1994 Respiratory respiratory effort/rhythm Overall: no retractions 03/22/2017 None Full Exam - General 1994 Respiratory respiratory effort/rhythm Overall: normal rate 03/22/2017 None Full Exam - General 1994 Cardiovascular extremities Overall: no clubbing 03/22/2017 None Full Exam - General 1994 Cardiovascular auscultation of heart Overall: regular rate 03/22/2017 None Full Exam - General 1994 Cardiovascular auscultation of heart Overall: normal heart sounds 03/22/2017 None Full Exam - General 1994 Cardiovascular auscultation of heart Systolic murmur: early systolic 03/22/2017 None Full Exam - General 1994 Cardiovascular auscultation of heart Systolic murmur grade: II/ 03/22/2017 None Full Exam - General 1994 Abdomen abdominal exam Overall: normal bowel sounds 03/22/2017 None Full Exam - General 1994 Lymphatic neck nodes Overall: anterior cervical chain benign 03/22/2017 None Full Exam - General 1994 Lymphatic neck nodes Overall: posterior cervical chain benign 03/22/2017 None Full Exam - General 1994 Musculoskeletal spine, ribs and pelvis Posture: kyphosis 03/22/2017 None Full Exam - General 1994 Musculoskeletal head and neck Overall: head atraumatic 03/22/2017 None Full Exam - General 1994 Musculoskeletal head and neck Overall: cervical spine benign 03/22/2017 None Full Exam - General 1994 Neurologic cranial nerves Overall: crainial nerves 2 - 12 grossly intact 03/22/2017 None Full Exam - General 1994 Psychiatric orientation/consciousness Overall: oriented to person, place and time 03/22/2017 None Full Exam - General 1994 Psychiatric mood and affect Overall: normal mood and affect 03/22/2017 None Full Exam - General 1994 Integument inspection of skin Location: left leg 03/22/2017 None Full Exam - General 1994 Integument inspection of skin Location: left foot 03/22/2017 None Full Exam - General 1994 Integument inspection of skin Pigmentation: erythematous 03/22/2017 None Full Exam - General 1994 Integument inspection of skin Dermatitis: scaling 03/22/2017 None Full Exam - General 1994 Integument inspection of skin Dermatitis: thickened 03/22/2017 None Full Exam - General 1994 Cardiovascular extremities Edema present: pitting 03/22/2017 None Full Exam - General 1994 Cardiovascular extremities Edema present: severity 1+ - 4 +: 4+ bilateral to mid thigh-weeping left lower leg 2016 None Full Exam - General 1994 Constitutional general appearance Development: well developed 03/08/2017 None Full Exam - General 1994 Constitutional general appearance Development: appears stated age 0603/08/2017 None Full Exam - General 1994 Constitutional general appearance Hygiene/Attention to Grooming: good hygiene 03/08/2017 None Full Exam - General 1994 Eyes conjunctiva /eyelids Overall: conjunctiva clear 03/08/2017 None Full Exam - General 1994 Eyes conjunctiva /eyelids Overall: cornea clear 03/08/2017 None Full Exam - General 1994 Eyes conjunctiva /eyelids Overall: eyelids normal 03/08/2017 None Full Exam - General 1994 Eyes pupils and irises Overall: pupils equal, round, reactive to light and accomodation 03/08/2017 None Full Exam - General 1994 Respiratory auscultation Overall: breath sounds clear bilaterally 03/08/2017 None Full Exam - General 1994 Respiratory respiratory effort/rhythm Overall: no retractions 03/08/2017 None Full Exam - General 1994 Respiratory respiratory effort/rhythm Overall: normal rate 03/08/2017 None Full Exam - General 1994 Cardiovascular extremities Overall: no clubbing 03/08/2017 None Full Exam - General 1994 Cardiovascular auscultation of heart Overall: regular rate 03/08/2017 None Full Exam - General 1994 Cardiovascular auscultation of heart Overall: normal heart sounds 03/08/2017 None Full Exam - General 1994 Cardiovascular auscultation of heart Systolic murmur: early systolic 03/08/2017 None Full Exam - General 1994 Cardiovascular auscultation of heart Systolic murmur grade: II/ 03/08/2017 None Full Exam - General 1994 Abdomen abdominal exam Overall: normal bowel sounds 03/08/2017 None Full Exam - General 1994 Lymphatic neck nodes Overall: anterior cervical chain benign 03/08/2017 None Full Exam - General 1994 Lymphatic neck nodes Overall: posterior cervical chain benign 03/08/2017 None Full Exam - General 1994 Musculoskeletal spine, ribs and pelvis Posture: kyphosis 03/08/2017 None Full Exam - General 1994 Musculoskeletal head and neck Overall: head atraumatic 03/08/2017 None Full Exam - General 1994 Musculoskeletal head and neck Overall: cervical spine benign 03/08/2017 None Full Exam - General 1994 Integument inspection of skin Overall: few scattered moles, no gross abnormalities 03/08/2017 None Full Exam - General 1994 Neurologic cranial nerves Overall: crainial nerves 2 - 12 grossly intact 03/08/2017 None Full Exam - General 1994 Psychiatric orientation/consciousness Overall: oriented to person, place and time 03/08/2017 None Full Exam - General 1994 Psychiatric mood and affect Overall: normal mood and affect 03/08/2017 None Full Exam - General 1994 Constitutional general appearance Development: well developed 12/06/2016 None Full Exam - General 1994 Constitutional general appearance Development: appears stated age 0312/06/2016 None Full Exam - General 1994 Constitutional general appearance Hygiene/Attention to Grooming: good hygiene 12/06/2016 None Full Exam - General 1994 Eyes conjunctiva /eyelids Overall: conjunctiva clear 12/06/2016 None Full Exam - General 1994 Eyes conjunctiva /eyelids Overall: cornea clear 12/06/2016 None Full Exam - General 1994 Eyes conjunctiva /eyelids Overall: eyelids normal 12/06/2016 None Full Exam - General 1994 Eyes pupils and irises Overall: pupils equal, round, reactive to light and accomodation 12/06/2016 None Full Exam - General 1994 Respiratory auscultation Overall: breath sounds clear bilaterally 12/06/2016 None Full Exam - General 1994 Respiratory respiratory effort/rhythm Overall: no retractions 12/06/2016 None Full Exam - General 1994 Respiratory respiratory effort/rhythm Overall: normal rate 12/06/2016 None Full Exam - General 1994 Cardiovascular extremities Overall: no clubbing 12/06/2016 None Full Exam - General 1994 Cardiovascular auscultation of heart Overall: regular rate 12/06/2016 None Full Exam - General 1994 Cardiovascular auscultation of heart Overall: normal heart sounds 12/06/2016 None Full Exam - General 1994 Cardiovascular auscultation of heart Systolic murmur: early systolic 12/06/2016 None Full Exam - General 1994 Cardiovascular auscultation of heart Systolic murmur grade: II/ 12/06/2016 None Full Exam - General 1994 Abdomen abdominal exam Overall: normal bowel sounds 12/06/2016 None Full Exam - General 1994 Lymphatic neck nodes Overall: anterior cervical chain benign 12/06/2016 None Full Exam - General 1994 Lymphatic neck nodes Overall: posterior cervical chain benign 12/06/2016 None Full Exam - General 1994 Musculoskeletal spine, ribs and pelvis Posture: kyphosis 12/06/2016 None Full Exam - General 1994 Musculoskeletal head and neck Overall: head atraumatic 12/06/2016 None Full Exam - General 1994 Musculoskeletal head and neck Overall: cervical spine benign 12/06/2016 None Full Exam - General 1994 Integument inspection of skin Overall: few scattered moles, no gross abnormalities 12/06/2016 None Full Exam - General 1994 Neurologic cranial nerves Overall: crainial nerves 2 - 12 grossly intact 12/06/2016 None Full Exam - General 1994 Psychiatric orientation/consciousness Overall: oriented to person, place and time 12/06/2016 None Full Exam - General 1994 Psychiatric mood and affect Overall: normal mood and affect 12/06/2016 None Full Exam - General 1994 Constitutional general appearance Development: well developed 11/30/2016 None Full Exam - General 1994 Constitutional general appearance Development: appears stated age 0311/30/2016 None Full Exam - General 1994 Constitutional general appearance Hygiene/Attention to Grooming: good hygiene 11/30/2016 None Full Exam - General 1994 Eyes conjunctiva /eyelids Overall: conjunctiva clear 11/30/2016 None Full Exam - General 1994 Eyes conjunctiva /eyelids Overall: cornea clear 11/30/2016 None Full Exam - General 1994 Eyes conjunctiva /eyelids Overall: eyelids normal 11/30/2016 None Full Exam - General 1994 Eyes pupils and irises Overall: pupils equal, round, reactive to light and accomodation 11/30/2016 None Full Exam - General 1994 Respiratory auscultation Overall: breath sounds clear bilaterally 11/30/2016 None Full Exam - General 1994 Respiratory respiratory effort/rhythm Overall: no retractions 11/30/2016 None Full Exam - General 1994 Respiratory respiratory effort/rhythm Overall: normal rate 11/30/2016 None Full Exam - General 1994 Cardiovascular extremities Overall: no clubbing 11/30/2016 None Full Exam - General 1994 Cardiovascular auscultation of heart Overall: regular rate 11/30/2016 None Full Exam - General 1994 Cardiovascular auscultation of heart Overall: normal heart sounds 11/30/2016 None Full Exam - General 1994 Abdomen abdominal exam Overall: normal bowel sounds 11/30/2016 None Full Exam - General 1994 Lymphatic neck nodes Overall: anterior cervical chain benign 11/30/2016 None Full Exam - General 1994 Lymphatic neck nodes Overall: posterior cervical chain benign 11/30/2016 None Full Exam - General 1994 Musculoskeletal lower extremity Palpation - knee: crepitus 11/30/2016 None Full Exam - General 1994 Musculoskeletal spine, ribs and pelvis Posture: kyphosis 11/30/2016 None Full Exam - General 1994 Musculoskeletal head and neck Overall: head atraumatic 11/30/2016 None Full Exam - General 1994 Musculoskeletal head and neck Overall: cervical spine benign 11/30/2016 None Full Exam - General 1994 Integument inspection of skin Overall: few scattered moles, no gross abnormalities 11/30/2016 None Full Exam - General 1994 Neurologic cranial nerves Overall: crainial nerves 2 - 12 grossly intact 11/30/2016 None Full Exam - General 1994 Psychiatric orientation/consciousness Overall: oriented to person, place and time 11/30/2016 None Full Exam - General 1994 Psychiatric mood and affect Overall: normal mood and affect 11/30/2016 None Full Exam - General 1994 Cardiovascular auscultation of heart Systolic murmur: early systolic 11/30/2016 None Full Exam - General 1994 Cardiovascular auscultation of heart Systolic murmur grade: II/ 11/30/2016 None Full Exam - General 1994 Constitutional general appearance Development: well developed 11/28/2016 None Full Exam - General 1994 Constitutional general appearance Development: appears stated age 0311/28/2016 None Full Exam - General 1994 Constitutional general appearance Hygiene/Attention to Grooming: good hygiene 11/28/2016 None Full Exam - General 1994 Eyes conjunctiva /eyelids Overall: conjunctiva clear 11/28/2016 None Full Exam - General 1994 Eyes conjunctiva /eyelids Overall: cornea clear 11/28/2016 None Full Exam - General 1994 Eyes conjunctiva /eyelids Overall: eyelids normal 11/28/2016 None Full Exam - General 1994 Eyes pupils and irises Overall: pupils equal, round, reactive to light and accomodation 11/28/2016 None Full Exam - General 1994 Ears/Nose/Throat otoscopic exam Overall: external auditory canals clear 11/28/2016 None Full Exam - General 1994 Ears/Nose/Throat otoscopic exam Overall: tympanic membranes clear 11/28/2016 None Full Exam - General 1994 Ears/Nose/Throat lips/teeth/gingiva Overall: benign lips 11/28/2016 None Full Exam - General 1994 Ears/Nose/Throat lips/teeth/gingiva Overall: normal dentition 11/28/2016 None Full Exam - General 1994 Ears/Nose/Throat oral cavity/pharynx/larynx Overall: oral mucosa clear 11/28/2016 None Full Exam - General 1994 Ears/Nose/Throat oral cavity/pharynx/larynx Overall: oropharyngeal mucosa clear 11/28/2016 None Full Exam - General 1994 Ears/Nose/Throat oral cavity/pharynx/larynx Overall: no masses 11/28/2016 None Full Exam - General 1994 Respiratory auscultation Overall: breath sounds clear bilaterally 11/28/2016 None Full Exam - General 1994 Respiratory respiratory effort/rhythm Overall: no retractions 11/28/2016 None Full Exam - General 1994 Respiratory respiratory effort/rhythm Overall: normal rate 11/28/2016 None Full Exam - General 1994 Cardiovascular extremities Overall: no clubbing 11/28/2016 None Full Exam - General 1994 Cardiovascular auscultation of heart Overall: regular rate 11/28/2016 None Full Exam - General 1994 Cardiovascular auscultation of heart Overall: normal heart sounds 11/28/2016 None Full Exam - General 1994 Abdomen abdominal exam Overall: normal bowel sounds 11/28/2016 None Full Exam - General 1994 Lymphatic neck nodes Overall: anterior cervical chain benign 11/28/2016 None Full Exam - General 1994 Lymphatic neck nodes Overall: posterior cervical chain benign 11/28/2016 None Full Exam - General 1994 Musculoskeletal lower extremity Palpation - knee: crepitus 11/28/2016 None Full Exam - General 1994 Musculoskeletal spine, ribs and pelvis Posture: kyphosis 11/28/2016 None Full Exam - General 1994 Musculoskeletal head and neck Overall: head atraumatic 11/28/2016 None Full Exam - General 1994 Musculoskeletal head and neck Overall: cervical spine benign 11/28/2016 None Full Exam - General 1994 Integument inspection of skin Overall: few scattered moles, no gross abnormalities 11/28/2016 None Full Exam - General 1994 Neurologic cranial nerves Overall: crainial nerves 2 - 12 grossly intact 11/28/2016 None Full Exam - General 1994 Psychiatric orientation/consciousness Overall: oriented to person, place and time 11/28/2016 None Full Exam - General 1994 Psychiatric mood and affect Overall: normal mood and affect 11/28/2016 None Full Exam - General 1994 Constitutional general appearance Development: well developed 05/04/2016 None Full Exam - General 1994 Constitutional general appearance Development: appears stated age 0805/04/2016 None Full Exam - General 1994 Constitutional general appearance Hygiene/Attention to Grooming: good hygiene 05/04/2016 None Full Exam - General 1994 Eyes conjunctiva /eyelids Overall: conjunctiva clear 05/04/2016 None Full Exam - General 1994 Eyes conjunctiva /eyelids Overall: cornea clear 05/04/2016 None Full Exam - General 1994 Eyes conjunctiva /eyelids Overall: eyelids normal 05/04/2016 None Full Exam - General 1994 Eyes pupils and irises Overall: pupils equal, round, reactive to light and accomodation 05/04/2016 None Full Exam - General 1994 Ears/Nose/Throat otoscopic exam Overall: external auditory canals clear 05/04/2016 None Full Exam - General 1994 Ears/Nose/Throat otoscopic exam Overall: tympanic membranes clear 05/04/2016 None Full Exam - General 1994 Ears/Nose/Throat lips/teeth/gingiva Overall: benign lips 05/04/2016 None Full Exam - General 1994 Ears/Nose/Throat lips/teeth/gingiva Overall: normal dentition 05/04/2016 None Full Exam - General 1994 Ears/Nose/Throat oral cavity/pharynx/larynx Overall: oral mucosa clear 05/04/2016 None Full Exam - General 1994 Ears/Nose/Throat oral cavity/pharynx/larynx Overall: oropharyngeal mucosa clear 05/04/2016 None Full Exam - General 1994 Ears/Nose/Throat oral cavity/pharynx/larynx Overall: no masses 05/04/2016 None Full Exam - General 1994 Respiratory auscultation Overall: breath sounds clear bilaterally 05/04/2016 None Full Exam - General 1994 Respiratory respiratory effort/rhythm Overall: no retractions 05/04/2016 None Full Exam - General 1994 Respiratory respiratory effort/rhythm Overall: normal rate 05/04/2016 None Full Exam - General 1994 Cardiovascular extremities Overall: no clubbing 05/04/2016 None Full Exam - General 1994 Cardiovascular auscultation of heart Overall: regular rate 05/04/2016 None Full Exam - General 1994 Cardiovascular auscultation of heart Overall: normal heart sounds 05/04/2016 None Full Exam - General 1994 Abdomen abdominal exam Overall: normal bowel sounds 05/04/2016 None Full Exam - General 1994 Lymphatic neck nodes Overall: anterior cervical chain benign 05/04/2016 None Full Exam - General 1994 Lymphatic neck nodes Overall: posterior cervical chain benign 05/04/2016 None Full Exam - General 1994 Musculoskeletal lower extremity Palpation - knee: crepitus 05/04/2016 None Full Exam - General 1994 Musculoskeletal spine, ribs and pelvis Posture: kyphosis 05/04/2016 None Full Exam - General 1994 Musculoskeletal head and neck Overall: head atraumatic 05/04/2016 None Full Exam - General 1994 Musculoskeletal head and neck Overall: cervical spine benign 05/04/2016 None Full Exam - General 1994 Integument inspection of skin Overall: few scattered moles, no gross abnormalities 05/04/2016 None Full Exam - General 1994 Neurologic cranial nerves Overall: crainial nerves 2 - 12 grossly intact 05/04/2016 None Full Exam - General 1994 Psychiatric orientation/consciousness Overall: oriented to person, place and time 05/04/2016 None Full Exam - General 1994 Psychiatric mood and affect Overall: normal mood and affect 05/04/2016 None Full Exam - General 1994 Constitutional general appearance Development: well developed 11/04/2015 None Full Exam - General 1994 Constitutional general appearance Development: appears stated age 0211/04/2015 None Full Exam - General 1994 Constitutional general appearance Hygiene/Attention to Grooming: good hygiene 11/04/2015 None Full Exam - General 1994 Eyes conjunctiva /eyelids Overall: conjunctiva clear 11/04/2015 None Full Exam - General 1994 Eyes conjunctiva /eyelids Overall: cornea clear 11/04/2015 None Full Exam - General 1994 Eyes conjunctiva /eyelids Overall: eyelids normal 11/04/2015 None Full Exam - General 1994 Eyes pupils and irises Overall: pupils equal, round, reactive to light and accomodation 11/04/2015 None Full Exam - General 1994 Ears/Nose/Throat otoscopic exam Overall: external auditory canals clear 11/04/2015 None Full Exam - General 1994 Ears/Nose/Throat otoscopic exam Overall: tympanic membranes clear 11/04/2015 None Full Exam - General 1994 Ears/Nose/Throat lips/teeth/gingiva Overall: benign lips 11/04/2015 None Full Exam - General 1994 Ears/Nose/Throat lips/teeth/gingiva Overall: normal dentition 11/04/2015 None Full Exam - General 1994 Ears/Nose/Throat oral cavity/pharynx/larynx Overall: oral mucosa clear 11/04/2015 None Full Exam - General 1994 Ears/Nose/Throat oral cavity/pharynx/larynx Overall: oropharyngeal mucosa clear 11/04/2015 None Full Exam - General 1994 Ears/Nose/Throat oral cavity/pharynx/larynx Overall: no masses 11/04/2015 None Full Exam - General 1994 Respiratory auscultation Overall: breath sounds clear bilaterally 11/04/2015 None Full Exam - General 1994 Respiratory respiratory effort/rhythm Overall: no retractions 11/04/2015 None Full Exam - General 1994 Respiratory respiratory effort/rhythm Overall: normal rate 11/04/2015 None Full Exam - General 1994 Cardiovascular extremities Overall: no clubbing 11/04/2015 None Full Exam - General 1994 Cardiovascular auscultation of heart Overall: regular rate 11/04/2015 None Full Exam - General 1994 Cardiovascular auscultation of heart Overall: normal heart sounds 11/04/2015 None Full Exam - General 1994 Abdomen abdominal exam Overall: normal bowel sounds 11/04/2015 None Full Exam - General 1994 Lymphatic neck nodes Overall: anterior cervical chain benign 11/04/2015 None Full Exam - General 1994 Lymphatic neck nodes Overall: posterior cervical chain benign 11/04/2015 None Full Exam - General 1994 Musculoskeletal lower extremity Palpation - knee: crepitus 11/04/2015 None Full Exam - General 1994 Musculoskeletal spine, ribs and pelvis Posture: kyphosis 11/04/2015 None Full Exam - General 1994 Musculoskeletal head and neck Overall: head atraumatic 11/04/2015 None Full Exam - General 1994 Musculoskeletal head and neck Overall: cervical spine benign 11/04/2015 None Full Exam - General 1994 Integument inspection of skin Overall: few scattered moles, no gross abnormalities 11/04/2015 None Full Exam - General 1994 Neurologic cranial nerves Overall: crainial nerves 2 - 12 grossly intact 11/04/2015 None Full Exam - General 1994 Psychiatric orientation/consciousness Overall: oriented to person, place and time 11/04/2015 None Full Exam - General 1994 Psychiatric mood and affect Overall: normal mood and affect 11/04/2015 None Full Exam - General 1994 Constitutional general appearance Development: well developed 07/30/2015 None Full Exam - General 1994 Constitutional general appearance Development: appears stated age 1107/30/2015 None Full Exam - General 1994 Constitutional general appearance Hygiene/Attention to Grooming: good hygiene 07/30/2015 None Full Exam - General 1994 Eyes conjunctiva /eyelids Overall: conjunctiva clear 07/30/2015 None Full Exam - General 1994 Eyes conjunctiva /eyelids Overall: cornea clear 07/30/2015 None Full Exam - General 1994 Eyes conjunctiva /eyelids Overall: eyelids normal 07/30/2015 None Full Exam - General 1994 Eyes pupils and irises Overall: pupils equal, round, reactive to light and accomodation 07/30/2015 None Full Exam - General 1994 Ears/Nose/Throat otoscopic exam Overall: external auditory canals clear 07/30/2015 None Full Exam - General 1994 Ears/Nose/Throat otoscopic exam Overall: tympanic membranes clear 07/30/2015 None Full Exam - General 1994 Ears/Nose/Throat lips/teeth/gingiva Overall: benign lips 07/30/2015 None Full Exam - General 1994 Ears/Nose/Throat lips/teeth/gingiva Overall: normal dentition 07/30/2015 None Full Exam - General 1994 Ears/Nose/Throat oral cavity/pharynx/larynx Overall: oral mucosa clear 07/30/2015 None Full Exam - General 1994 Ears/Nose/Throat oral cavity/pharynx/larynx Overall: oropharyngeal mucosa clear 07/30/2015 None Full Exam - General 1994 Ears/Nose/Throat oral cavity/pharynx/larynx Overall: hypopharynx benign 07/30/2015 None Full Exam - General 1994 Ears/Nose/Throat oral cavity/pharynx/larynx Overall: no masses 07/30/2015 None Full Exam - General 1994 Respiratory auscultation Overall: breath sounds clear bilaterally 07/30/2015 None Full Exam - General 1994 Respiratory respiratory effort/rhythm Overall: no retractions 07/30/2015 None Full Exam - General 1994 Respiratory respiratory effort/rhythm Overall: normal rate 07/30/2015 None Full Exam - General 1994 Cardiovascular extremities Overall: no clubbing 07/30/2015 None Full Exam - General 1994 Cardiovascular auscultation of heart Overall: regular rate 07/30/2015 None Full Exam - General 1994 Cardiovascular auscultation of heart Overall: normal heart sounds 07/30/2015 None Full Exam - General 1994 Abdomen abdominal exam Overall: normal bowel sounds 07/30/2015 None Full Exam - General 1994 Lymphatic neck nodes Overall: anterior cervical chain benign 07/30/2015 None Full Exam - General 1994 Lymphatic neck nodes Overall: posterior cervical chain benign 07/30/2015 None Full Exam - General 1994 Musculoskeletal lower extremity Palpation - knee: crepitus 07/30/2015 None Full Exam - General 1994 Musculoskeletal spine, ribs and pelvis Posture: kyphosis 07/30/2015 None Full Exam - General 1994 Musculoskeletal head and neck Overall: head atraumatic 07/30/2015 None Full Exam - General 1994 Musculoskeletal head and neck Overall: cervical spine benign 07/30/2015 None Full Exam - General 1994 Integument inspection of skin Overall: few scattered moles, no gross abnormalities 07/30/2015 None Full Exam - General 1994 Neurologic cranial nerves Overall: crainial nerves 2 - 12 grossly intact 07/30/2015 None Full Exam - General 1994 Psychiatric orientation/consciousness Overall: oriented to person, place and time 07/30/2015 None Full Exam - General 1994 Psychiatric mood and affect Overall: normal mood and affect 07/30/2015 None Full Exam - General 1994 Constitutional general appearance Development: appears stated age 0501/26/2015 None Full Exam - General 1994 Constitutional general appearance Development: well developed 01/26/2015 None Full Exam - General 1994 Constitutional general appearance Hygiene/Attention to Grooming: good hygiene 01/26/2015 None Full Exam - General 1994 Eyes conjunctiva /eyelids Overall: conjunctiva clear 01/26/2015 None Full Exam - General 1994 Eyes conjunctiva /eyelids Overall: cornea clear 01/26/2015 None Full Exam - General 1994 Eyes conjunctiva /eyelids Overall: eyelids normal 01/26/2015 None Full Exam - General 1994 Eyes pupils and irises Overall: pupils equal, round, reactive to light and accomodation 01/26/2015 None Full Exam - General 1994 Ears/Nose/Throat otoscopic exam Overall: external auditory canals clear 01/26/2015 None Full Exam - General 1994 Ears/Nose/Throat otoscopic exam Overall: tympanic membranes clear 01/26/2015 None Full Exam - General 1994 Ears/Nose/Throat lips/teeth/gingiva Overall: benign lips 01/26/2015 None Full Exam - General 1994 Ears/Nose/Throat lips/teeth/gingiva Overall: normal dentition 01/26/2015 None Full Exam - General 1994 Ears/Nose/Throat oral cavity/pharynx/larynx Overall: hypopharynx benign 01/26/2015 None Full Exam - General 1994 Ears/Nose/Throat oral cavity/pharynx/larynx Overall: no masses 01/26/2015 None Full Exam - General 1994 Ears/Nose/Throat oral cavity/pharynx/larynx Overall: oral mucosa clear 01/26/2015 None Full Exam - General 1994 Ears/Nose/Throat oral cavity/pharynx/larynx Overall: oropharyngeal mucosa clear 01/26/2015 None Full Exam - General 1994 Respiratory auscultation Overall: breath sounds clear bilaterally 01/26/2015 None Full Exam - General 1994 Respiratory respiratory effort/rhythm Overall: no retractions 01/26/2015 None Full Exam - General 1994 Respiratory respiratory effort/rhythm Overall: normal rate 01/26/2015 None Full Exam - General 1994 Cardiovascular extremities Overall: no clubbing 01/26/2015 None Full Exam - General 1994 Cardiovascular auscultation of heart Overall: normal heart sounds 01/26/2015 None Full Exam - General 1994 Cardiovascular auscultation of heart Overall: regular rate 01/26/2015 None Full Exam - General 1994 Abdomen abdominal exam Overall: no tenderness 01/26/2015 None Full Exam - General 1994 Abdomen abdominal exam Overall: normal bowel sounds 01/26/2015 None Full Exam - General 1994 Integument inspection of skin Overall: few scattered moles, no gross abnormalities 01/26/2015 None Full Exam - General 1994 Neurologic deep tendon reflexes Overall: deep tendon reflexes intact 01/26/2015 None Full Exam - General 1994 Neurologic cranial nerves Overall: crainial nerves 2 - 12 grossly intact 01/26/2015 None Full Exam - General 1994 Psychiatric orientation/consciousness Overall: oriented to person, place and time 01/26/2015 None Full Exam - General 1994 Psychiatric mood and affect Overall: normal mood and affect 01/26/2015 None Full Exam - General 1994 Abdomen hernia exam Abdominal hernia present: non-tender 01/26/2015 None Full Exam - General 1994 Abdomen hernia exam Abdominal hernia present: reducible 01/26/2015 None Full Exam - General 1994 Lymphatic neck nodes Overall: anterior cervical chain benign 01/26/2015 None Full Exam - General 1994 Lymphatic neck nodes Overall: posterior cervical chain benign 01/26/2015 None Full Exam - General 1994 Musculoskeletal lower extremity Palpation - knee: crepitus 01/26/2015 None Full Exam - General 1994 Neck inspection of neck Overall: normal size 01/26/2015 None Full Exam - General 1994 Neck inspection of neck Overall: no masses 01/26/2015 None Full Exam - General 1994 Musculoskeletal head and neck Overall: head atraumatic 01/26/2015 None Full Exam - General 1994 Musculoskeletal head and neck Overall: cervical spine benign 01/26/2015 None Full Exam - General 1994 Musculoskeletal spine, ribs and pelvis Posture: kyphosis 01/26/2015 None Procedures Procedure Codes Date ADMIN PNEUMOCOCCAL VACCINE SNOMED CT: 31584435 CPT-4: G0009 02/05/2018 Pneumococcal Polysaccharide Vaccine, 23-Valent, Ad CPT-4: 40364 02/05/2018 PPPS, SUBSEQ VISIT CPT -4: G0439 11/30/2017 URINALYSIS NONAUTO W/O SCOPE CPT-4: 61082 03/22/2017 URINALYSIS NONAUTO W/O SCOPE CPT-4: 05720 03/21/2017 PPPS, SUBSEQ VISIT CPT -4: G0439 11/30/2016 PNEUMOCOCCAL VACC 13 JAVIER IM Formatting Model/CDA Sections, Assigned to SNOMED CT: 84584672 CPT-4: [id number] 11/30/2016 ADMIN PNEUMOCOCCAL VACCINE SNOMED CT: 36427936 CPT-4: G0009 11/30/2016 Vital Signs Date Vital 10/18/2018 Blood Pressure 1: 118/70 Code : 8480-6 BMI: 39.0 Code : 01485-8 Heart Rate 1 : 86 bpm Height: 5'10" SpO2: 95% Weight: 272 lbs 10/14/2018 Blood Pressure 1: 120 Code : 8480-6 Heart Rate 1: 67 bpm Height: 5'10" SpO2: 92% 10/10/2018 Blood Pressure 1: 12670 Code : 8480-6 BMI: 34.7 Code : 88704-8 Heart Rate 1 : 80 bpm Height: 5'10" SpO2: 96% Temperature: 37.1 (C) / 98.7 (F) Weight: 242 lbs 10/04/2018 Blood Pressure 1: 120 Code : 8480-6 Height: 5'10" SpO2: 96% 08/29/2018 Blood Pressure 1: 104 Code : 8480-6 BMI: 34.6 Code : 49755-9 Heart Rate 1 : 68 bpm Height: 5'10" SpO2: 98% Weight: 241 lbs 02/25/2018 Blood Pressure 1: 12070 Code : 8480-6 BMI: 37.0 Code : 98688-6 Heart Rate 1 : 51 bpm Height: 5'10" SpO2: 97% Weight: 258 lbs 02/20/2018 Blood Pressure 1: 12470 Code : 8480-6 BMI: 38.0 Code : 19470-5 Heart Rate 1 : 60 bpm Height: 5'10" SpO2: 96% Weight: 265 lbs 02/05/2018 Blood Pressure 1: 116/66 Code : 8480-6 BMI: 38.0 Code : 90472-4 Heart Rate 1 : 63 bpm Height: 5'10" SpO2: 98% Weight: 265 lbs 11/30/2017 Blood Pressure 1: 132/60 Code : 8480-6 BMI: 37.0 Code : 14668-3 Heart Rate 1 : 100 bpm Height: 5'10 " SpO2: 96% Waist Measure (cm): 122 cm Weight: 258 lbs 11/08/2017 Blood Pressure 1: 126/64 Code : 8480-6 BMI: 37.2 Code : 84569-7 Heart Rate 1 : 92 bpm Height: 5'10" SpO2: 94% Weight: 259 lbs 09/20/2017 Blood Pressure 1: 122/68 Code : 8480-6 BMI: 36.9 Code : 02398-3 Heart Rate 1 : 57 bpm Height: 5'10" SpO2: 96% Weight: 257 lbs 06/25/2017 Blood Pressure 1: 124/68 Code : 8480-6 BMI: 37.0 Code : 17253-6 Height: 5'10 " Weight: 258 lbs 06/07/2017 Blood Pressure 1: 122/64 Code : 8480-6 BMI: 37.0 Code : 95619-3 Heart Rate 1 : 60 bpm Height: 5'10" SpO2: 94% Temperature: 36.4 (C) / 97.6 (F) Weight: 258 lbs 05/03/2017 Blood Pressure 1: 118/ Code : 8480-6 BMI: 38.2 Code : 21526-7 Heart Rate 1 : 52 bpm Height: 5'10" SpO2: 98% Weight: 266 lbs 04/02/2017 Blood Pressure 1: 11862 Code : 8480-6 BMI: 38.2 Code : 22520-7 Heart Rate 1 : 53 bpm Height: 5'10" SpO2: 93% Weight: 266 lbs 03/26/2017 Blood Pressure 1: 11462 Code : 8480-6 BMI: 38.3 Code : 13857-1 Height: 5'10 " Weight: 267 lbs 03/22/2017 Blood Pressure 1: 122/64 Code : 8480-6 BMI: 40.0 Code : 05633-4 Heart Rate 1 : 52 bpm Height: 5'10" SpO2: 94% Weight: 279 lbs 03/08/2017 Blood Pressure 1: 124/70 Code : 8480-6 BMI: 39.4 Code : 61644-9 Heart Rate 1 : 51 bpm Height: 5'10" SpO2: 94% Weight: 274 lbs 8 oz 12/06/2016 Blood Pressure 1: 126/62 Code : 8480-6 BMI: 40.3 Code : 35225-6 Heart Rate 1 : 50 bpm Height: 5'10" SpO2: 94% Weight: 281 lbs 11/30/2016 Blood Pressure 1: 112/62 Code : 8480-6 BMI: 40.3 Code : 60074-0 Heart Rate 1 : 52 bpm Height: 5'10" SpO2: 93% Waist Measure (cm): 135 cm Weight: 281 lbs 11/28/2016 Blood Pressure 1: 132/72 Code : 8480-6 BMI: 40.3 Code : 89438-1 Heart Rate 1 : 50 bpm Height: 5'10" Weight: 281 lbs 05/04/2016 Blood Pressure 1: 128/78 Code : 8480-6 BMI: 38.5 Code : 93910-4 Heart Rate 1 : 74 bpm Height: 5'10" SpO2: 98% Weight: 268 lbs 8 oz 11/04/2015 Blood Pressure 1: 136/60 Code : 8480-6 BMI: 38.0 Code : 63564-3 Heart Rate 1 : 55 bpm Height: 5'10" SpO2: 94% Weight: 265 lbs 07/30/2015 Blood Pressure 1: 128/74 Code : 8480-6 BMI: 38.0 Code : 42622-6 Heart Rate 1 : 47 bpm Height: 5'10" SpO2: 97% Weight: 265 lbs 01/26/2015 Blood Pressure 1: 122/64 Code : 8480-6 BMI: 34.0 Code : 12686-6 Heart Rate 1 : 68 bpm Height: 5'10" Weight: 237 lbs Functional Status No Functional Status data History of Present Illness Symptom Name Status Result Effective Date Notes Location on the left 10/18/2018 None Location on the right 10/18/2018 None Quality constant 09/2018 None Onset and Resolution sudden in onset 10/18/2018 None Location on the left 10/14/2018 None Location on the right 10/14/2018 None Quality constant None Onset and Resolution sudden in onset 10/14/2018 None Location on the left 10/10/2018 None Location on the right 10/10/2018 None Quality constant None Onset and Resolution sudden in onset 10/10/2018 None Quality chronic 10/04 None Limitation on Activities allows weight bearing activity 10/04/2018 None Quality intermittent 10/04/2018 None Onset and Resolution gradual in onset 10/04/2018 None Pertinent Findings Denies fever 10/04/2018 None Pertinent Findings increased work of breathing 10/04/2018 None Severity moderate None Significant Medical Conditions peripheral neuropathy 10/04/2018 None Significant Medical Conditions diabetes 10/04/2018 None Significant Medical Conditions coronary artery disease 10/04/2018 None Significant Medications neuropathy medications 10/04/2018 None Significant Medications antihypertensive medications 10/04/2018 None Significant Medications lipid lowering statin medications 10/04/2018 None Sports Participation not significant 10/04/2018 None Alleviating Factors activity 10/04/2018 None Exacerbating Factors activity 10/04/2018 None Pertinent Findings numbness 10/04/2018 None Pertinent Findings pain with movement 10/04/2018 None Pertinent Findings ulceration 10/04/2018 None Onset of Symptom during adulthood 10/04/2018 None Limitation on Activities does not limit activities 10/04/2018 None Significant Medical Conditions coronary artery disease 10/04/2018 None Triggers activity None Quality non-insulin dependent 08/29/2018 None Alleviating Factors medication 08/29/2018 None Exacerbating Factors diet 08/29/2018 None Nutrition regular diet 08/29/2018 None Pertinent Findings Denies dizziness 08/29/2018 None Pertinent Findings Denies dyspnea 08/29/2018 None Pertinent Findings Denies numbness 08/29/2018 None Onset of Symptom onset as an adult 08/29/2018 None Quality primary hypertension 08/29/2018 None Quality stable 2017 None Onset and Resolution ongoing 08/29/2018 None Onset of Symptom during adulthood 08/29/2018 None Blood Pressure Values not checking blood pressure at home 08/29/2018 None Alleviating Factors medication 08/29/2018 None Pertinent Findings edema 08/29/2018 -wears compression socks Test results Pt checking blood glucose readings, did not bring results to clinic 08/29/2018 None Glucose monitoring fasting 08/29/2018 -116 this morning Quality chronic 08/29 None Quality chronic 08/29 None abdominal pain Location in the epigastric area 02/25/2018 None abdominal pain Radiating the umbilicus 02/25/2018 None abdominal pain Quality acute 02/25/2018 None abdominal pain Quality intermittent 02/25/2018 None abdominal pain Onset and Resolution sudden in onset 02/25/2018 None abdominal pain Limitation on Activities is incapacitating 02/25/2018 None abdominal pain Pertinent Findings Denies back pain 02/25/2018 None abdominal pain Pertinent Findings Denies cough 02/25/2018 None abdominal pain Pertinent Findings Denies dyspnea 02/25/2018 None abdominal pain Pertinent Findings Denies fever 02/25/2018 None abdominal pain Pertinent Findings Denies melena 02/25/2018 None abnormal test results Abnormal Indicator abnormal 02/25/2018 None abnormal test results Test Performed on February 20, 2018 02/25/2018 None abnormal test results Type of Test(s) Alk phos, ALT, AST, bilirubin, PSA 02/25/2018 None abdominal pain Location in the epigastric area 02/20/2018 None abdominal pain Radiating the umbilicus 02/20/2018 None abdominal pain Quality acute 02/20/2018 None abdominal pain Quality intermittent 02/20/2018 None abdominal pain Onset and Resolution sudden in onset 02/20/2018 None abdominal pain Limitation on Activities is incapacitating 02/20/2018 None abdominal pain Pertinent Findings Denies back pain 02/20/2018 None abdominal pain Pertinent Findings Denies cough 02/20/2018 None abdominal pain Pertinent Findings Denies dyspnea 02/20/2018 None abdominal pain Pertinent Findings Denies fever 02/20/2018 None abdominal pain Pertinent Findings Denies melena 02/20/2018 None diabetes mellitus Onset of Symptom onset as an adult 02/05/2018 new diagnosis diabetes mellitus Alleviating Factors medication 02/05/2018 None diabetes mellitus Exacerbating Factors diet 02/05/2018 None diabetes mellitus Nutrition regular diet 02/05/2018 None hypertension Quality primary hypertension 02/05/2018 None hypertension Onset and Resolution ongoing 02/05/2018 None hypertension Onset of Symptom during adulthood 02/05/2018 None diabetes mellitus Glucose monitoring fasting 02/05/2018 None diabetes mellitus Test results Pt checking blood glucose readings, did not bring results to clinic 02/05/2018 None diabetes mellitus Pertinent Findings Denies dizziness 02/05/2018 None diabetes mellitus Pertinent Findings Denies dyspnea 02/05/2018 None diabetes mellitus Quality non-insulin dependent 02/05/2018 None diabetes mellitus Pertinent Findings Denies numbness 02/05/2018 None hypertension Blood Pressure Values not checking blood pressure at home 02/05/2018 None hypertension Alleviating Factors medication 02/05/2018 None hypertension Pertinent Findings edema 02/05/2018 -wears compression socks hypertension Quality stable 02/05/2018 None Annual Medicare Wellness Exam Alcohol Use does not drink any alcohol 11/30/2017 None Annual Medicare Wellness Exam Aspirin Use yes 11/30/2017 None Annual Medicare Wellness Exam Blood Glucose (self reported) borderline high (100-125) 11/30/2017 None Annual Medicare Wellness Exam Blood Pressure (self reported ) borderline (120/80 - 139/89) 11/30/2017 None Annual Medicare Wellness Exam Cholesterol (self reported) don't know 11/30/2017 None Annual Medicare Wellness Exam Depression (last 6 months) almost never 11/30/2017 None Annual Medicare Wellness Exam Depression or Hopelessness almost never 11/30/2017 None Annual Medicare Wellness Exam Describe Your Health good 11/30/2017 None Annual Medicare Wellness Exam Exercise Habits does not exercise 11/30/2017 None Annual Medicare Wellness Exam Handling Stress usually javon effectively 11/30/2017 None Annual Medicare Wellness Exam Hemaglobin A-1C (self reported ) high (8 or higher) 11/30/2017 None Annual Medicare Wellness Exam Hours of Sleep 6 11/30/2017 None Annual Medicare Wellness Exam Interaction with Friends yes 11/30/2017 None Annual Medicare Wellness Exam Interests & Pleasure almost all of the time 11/30/2017 None Annual Medicare Wellness Exam Life Satisfaction very satisfied 11/30/2017 None Annual Medicare Wellness Exam Motor Vehicle Safety always fastens seat belt: y 11/30/2017 None Annual Medicare Wellness Exam Motor Vehicle Safety drives after drinking: n 11/30/2017 None Annual Medicare Wellness Exam Motor Vehicle Safety rides with someone who has been drinking: n 2017 None Annual Medicare Wellness Exam Nutrition servings of fried food / high fat foods per day: 0 2017 None Annual Medicare Wellness Exam Nutrition servings of high fiber / whole grain per day: 2 11/30/2017 None Annual Medicare Wellness Exam Nutrition servings of vegetables / fruit per day: 2 11/30/2017 None Annual Medicare Wellness Exam Smoking and Tobacco Use chews tobacco 11/30/2017 None Annual Medicare Wellness Exam Social & Emotional Support always 11/30/2017 None Annual Medicare Wellness Exam Stress some of the time 11/30/2017 None Annual Medicare Wellness Exam Sun Exposure protects skin when outdoors: y 11/30/2017 None diabetes mellitus Onset of Symptom onset as an adult 11/08/2017 new diagnosis diabetes mellitus Quality acute 11/08/2017 None diabetes mellitus Severity moderate 11/08/2017 None diabetes mellitus Alleviating Factors medication 11/08/2017 None diabetes mellitus Exacerbating Factors diet 11/08/2017 None diabetes mellitus Nutrition regular diet 11/08/2017 None diabetes mellitus Pertinent Findings numbness 11/08/2017 feet sometimes diabetes mellitus Pertinent Findings tingling 11/08/2017 feet sometimes diabetes mellitus Quality acute 09/20/2017 None diabetes mellitus Severity moderate 09/20/2017 None diabetes mellitus Alleviating Factors medication 09/20/2017 None diabetes mellitus Exacerbating Factors diet 09/20/2017 None diabetes mellitus Nutrition regular diet 09/20/2017 None diabetes mellitus Pertinent Findings numbness 09/20/2017 feet sometimes diabetes mellitus Pertinent Findings tingling 09/20/2017 feet sometimes diabetes mellitus Onset of Symptom onset as an adult 09/20/2017 new diagnosis cellulitis Quality acute 09/20/2017 None cellulitis Onset and Resolution resolved 09/20/2017 None cellulitis Onset of Symptom 2 weeks ago 09/20/2017 None cellulitis Limitation on Activities does not limit activities 09/20/2017 None cellulitis Frequency of Episodes increasing 09/20/2017 None cellulitis Length of Episodes 12 days 09/20/2017 None cellulitis Significant Medical Conditions diabetes 09/20/2017 None cellulitis Alleviating Factors prescription medication 09/20/2017 indomethacin helped the pain , no longer having pain cellulitis Pertinent Findings blisters 09/20/2017 None cellulitis Pertinent Findings drainage 09/20/2017 None cellulitis Pertinent Findings Denies fever 09/20/2017 None cellulitis Pertinent Findings pain 09/20/2017 None cellulitis Pertinent Findings warmth 09/20/2017 None cellulitis Location on the left leg 09/20/2017 None cellulitis Quality acute 06/25/2017 None cellulitis Onset and Resolution sudden in onset 06/25/2017 None cellulitis Onset and Resolution resolved 06/25/2017 None cellulitis Onset of Symptom 2 weeks ago 06/25/2017 None cellulitis Limitation on Activities does not limit activities 06/25/2017 None cellulitis Frequency of Episodes increasing 06/25/2017 None cellulitis Length of Episodes 12 days 06/25/2017 None cellulitis Significant Medical Conditions diabetes 06/25/2017 None cellulitis Alleviating Factors prescription medication 06/25/2017 indomethacin helped the pain , no longer having pain cellulitis Pertinent Findings blisters 06/25/2017 None cellulitis Pertinent Findings drainage 06/25/2017 None cellulitis Pertinent Findings Denies fever 06/25/2017 None cellulitis Pertinent Findings pain 06/25/2017 None cellulitis Pertinent Findings warmth 06/25/2017 None cellulitis Location on the left leg 06/25/2017 None cellulitis Quality acute 06/07/2017 None cellulitis Onset and Resolution sudden in onset 06/07/2017 None cellulitis Onset and Resolution resolved 06/07/2017 None cellulitis Onset of Symptom 2 weeks ago 06/07/2017 None cellulitis Limitation on Activities does not limit activities 06/07/2017 None cellulitis Frequency of Episodes increasing 06/07/2017 None cellulitis Length of Episodes 12 days 06/07/2017 None cellulitis Significant Medical Conditions diabetes 06/07/2017 None cellulitis Alleviating Factors prescription medication 06/07/2017 indomethacin helped the pain , no longer having pain cellulitis Pertinent Findings blisters 06/07/2017 None cellulitis Pertinent Findings drainage 06/07/2017 None cellulitis Pertinent Findings Denies fever 06/07/2017 None cellulitis Pertinent Findings pain 06/07/2017 None cellulitis Pertinent Findings warmth 06/07/2017 None cellulitis Location on the left leg 06/07/2017 None cellulitis Quality acute 05/03/2017 None cellulitis Onset and Resolution sudden in onset 05/03/2017 None cellulitis Onset of Symptom 2 weeks ago 05/03/2017 None cellulitis Limitation on Activities does not limit activities 05/03/2017 None cellulitis Frequency of Episodes increasing 05/03/2017 None cellulitis Length of Episodes 12 days 05/03/2017 None cellulitis Significant Medical Conditions diabetes 05/03/2017 None cellulitis Alleviating Factors prescription medication 05/03/2017 indomethacin helped the pain , no longer having pain cellulitis Pertinent Findings blisters 05/03/2017 None cellulitis Pertinent Findings drainage 05/03/2017 None cellulitis Pertinent Findings Denies fever 05/03/2017 None cellulitis Pertinent Findings pain 05/03/2017 None cellulitis Pertinent Findings warmth 05/03/2017 None cellulitis Location on the left leg 05/03/2017 None cellulitis Onset and Resolution resolved 05/03/2017 None cellulitis Quality acute 04/02/2017 None cellulitis Onset and Resolution sudden in onset 04/02/2017 None cellulitis Onset of Symptom 2 weeks ago 04/02/2017 None cellulitis Limitation on Activities does not limit activities 04/02/2017 None cellulitis Frequency of Episodes increasing 04/02/2017 None cellulitis Length of Episodes 12 days 04/02/2017 None cellulitis Significant Medical Conditions diabetes 04/02/2017 None cellulitis Alleviating Factors prescription medication 04/02/2017 indomethacin helped the pain , no longer having pain cellulitis Pertinent Findings blisters 04/02/2017 None cellulitis Pertinent Findings drainage 04/02/2017 None cellulitis Pertinent Findings Denies fever 04/02/2017 None cellulitis Pertinent Findings pain 04/02/2017 None cellulitis Pertinent Findings warmth 04/02/2017 None cellulitis Location on the left leg 04/02/2017 None cellulitis Quality acute 03/26/2017 None cellulitis Onset and Resolution sudden in onset 03/26/2017 None cellulitis Onset of Symptom 2 weeks ago 03/26/2017 None cellulitis Limitation on Activities does not limit activities 03/26/2017 None cellulitis Frequency of Episodes increasing 03/26/2017 None cellulitis Length of Episodes 12 days 03/26/2017 None cellulitis Significant Medical Conditions diabetes 03/26/2017 None cellulitis Alleviating Factors prescription medication 03/26/2017 indomethacin helped the pain , no longer having pain cellulitis Pertinent Findings blisters 03/26/2017 None cellulitis Pertinent Findings drainage 03/26/2017 None cellulitis Pertinent Findings Denies fever 03/26/2017 None cellulitis Pertinent Findings pain 03/26/2017 None cellulitis Pertinent Findings warmth 03/26/2017 None cellulitis Location on the left leg 03/26/2017 None cellulitis Quality acute 03/22/2017 None cellulitis Onset and Resolution sudden in onset 03/22/2017 None cellulitis Onset of Symptom 2 weeks ago 03/22/2017 None cellulitis Pertinent Findings blisters 03/22/2017 None cellulitis Pertinent Findings drainage 03/22/2017 None cellulitis Pertinent Findings Denies fever 03/22/2017 None cellulitis Pertinent Findings pain 03/22/2017 None cellulitis Pertinent Findings warmth 03/22/2017 None cellulitis Location on the left leg 03/22/2017 None cellulitis Limitation on Activities does not limit activities 03/22/2017 None cellulitis Frequency of Episodes increasing 03/22/2017 None cellulitis Length of Episodes 12 days 03/22/2017 None cellulitis Significant Medical Conditions diabetes 03/22/2017 None cellulitis Alleviating Factors prescription medication 03/22/2017 indomethacin helped the pain , no longer having pain diabetes mellitus Quality acute 03/08/2017 None diabetes mellitus Severity moderate 03/08/2017 None diabetes mellitus Nutrition regular diet 03/08/2017 None diabetes mellitus Pertinent Findings numbness 03/08/2017 feet sometimes diabetes mellitus Pertinent Findings tingling 03/08/2017 feet sometimes diabetes mellitus Onset of Symptom onset as an adult 03/08/2017 new diagnosis diabetes mellitus Test results HgbA1c level 9.8 03/08/2017 None diabetes mellitus Blood glucose levels not checking 03/08/2017 None diabetes mellitus Glucose monitoring does not test 03/08/2017 None diabetes mellitus Alleviating Factors medication 03/08/2017 None diabetes mellitus Exacerbating Factors diet 03/08/2017 None diabetes mellitus Exercise no exercise 03/08/2017 None diabetes mellitus Test results HgbA1c level 9.8 12/06/2016 None diabetes mellitus Quality acute 12/06/2016 None diabetes mellitus Glucose monitoring does not test 12/06/2016 None diabetes mellitus Nutrition regular diet 12/06/2016 None diabetes mellitus Exercise no exercise 12/06/2016 None diabetes mellitus Pertinent Findings numbness 12/06/2016 feet sometimes diabetes mellitus Pertinent Findings tingling 12/06/2016 feet sometimes diabetes mellitus Severity moderate 12/06/2016 None diabetes mellitus Blood glucose levels new diagnosis 12/06/2016 None diabetes mellitus Onset of Symptom onset as an adult 12/06/2016 new diagnosis Annual Medicare Wellness Exam Alcohol Use does not drink any alcohol 11/30/2016 None Annual Medicare Wellness Exam Aspirin Use no 11/30/2016 None Annual Medicare Wellness Exam Blood Glucose (self reported) don't know 11/30/2016 None Annual Medicare Wellness Exam Hemaglobin A-1C (self reported ) don't know 11/30/2016 None Annual Medicare Wellness Exam Blood Pressure (self reported ) don't know 11/30/2016 None Annual Medicare Wellness Exam Cholesterol (self reported) don't know 11/30/2016 None Annual Medicare Wellness Exam Depression (last 6 months) almost never 11/30/2016 None Annual Medicare Wellness Exam Depression or Hopelessness almost never 11/30/2016 None Annual Medicare Wellness Exam Handling Stress usually javon effectively 11/30/2016 None Annual Medicare Wellness Exam Interaction with Friends yes 11/30/2016 None Annual Medicare Wellness Exam Life Satisfaction satisfied 11/30/2016 None Annual Medicare Wellness Exam Smoking and Tobacco Use chews tobacco 11/30/2016 None Annual Medicare Wellness Exam Describe Your Health good 11/30/2016 None Annual Medicare Wellness Exam Exercise Habits does not exercise 11/30/2016 None Annual Medicare Wellness Exam Hours of Sleep 5 11/30/2016 None Annual Medicare Wellness Exam Interests & Pleasure almost all of the time 11/30/2016 None Annual Medicare Wellness Exam Motor Vehicle Safety always fastens seat belt: yes 11/30/2016 None Annual Medicare Wellness Exam Nutrition servings of fried food / high fat foods per day: 1 2016 None Annual Medicare Wellness Exam Nutrition servings of high fiber / whole grain per day: 3 11/30/2016 None Annual Medicare Wellness Exam Nutrition servings of vegetables / fruit per day: 1 11/30/2016 None Annual Medicare Wellness Exam Stress some of the time 11/30/2016 None Annual Medicare Wellness Exam Social & Emotional Support always 11/30/2016 None Annual Medicare Wellness Exam Sun Exposure protects skin when outdoors: no 11/30/2016 None hypertension Onset and Resolution ongoing 11/28/2016 None hypertension Onset of Symptom during adulthood 11/28/2016 None hypertension Blood Pressure Values not checking blood pressure at home 11/28/2016 None hypertension Alleviating Factors medication 11/28/2016 None hypertension Pertinent Findings Denies dizziness 11/28/2016 None hypertension Pertinent Findings dyspnea 11/28/2016 None hypertension Pertinent Findings edema 11/28/2016 -He has "always had some" hypothyroid Onset and Resolution ongoing 11/28/2016 None hypothyroid Alleviating Factors medication 11/28/2016 None pain, generalized Location diffusely 11/28/2016 hips and knees pain, generalized Quality chronic 11/28/2016 None pain, generalized Onset and Resolution ongoing 11/28/2016 None pain, generalized Alleviating Factors medication 11/28/2016 None hypertension Onset and Resolution ongoing 05/04/2016 None hypertension Onset of Symptom during adulthood 05/04/2016 None hypertension Blood Pressure Values not checking blood pressure at home 05/04/2016 None hypertension Alleviating Factors medication 05/04/2016 None hypertension Pertinent Findings Denies dizziness 05/04/2016 None hypertension Pertinent Findings Denies dyspnea 05/04/2016 None hypertension Pertinent Findings Denies edema 05/04/2016 None hypothyroid Onset and Resolution ongoing 05/04/2016 None hypothyroid Alleviating Factors medication 05/04/2016 None medication follow up Additional Comments medication use 11/04/2015 None medication follow up Location oral intake 11/04/2015 None medication follow up Location oral intake 07/30/2015 None medication follow up Quality chronic 07/30/2015 None medication follow up Quality unchanged 07/30/2015 None medication follow up Triggers pain 07/30/2015 None knee pain Location on the left 01/26/2015 None knee pain Location on the right 01/26/2015 None knee pain Limitation on Activities allows weight bearing activity 01/26/2015 None knee pain Pertinent Findings Denies decreased range of motion 01/26/2015 None knee pain Pertinent Findings Denies limping 01/26/2015 None knee pain Pertinent Findings pain with movement 01/26/2015 None knee pain Pertinent Findings stiffness 01/26/2015 None hypothyroid Quality improving 01/26/2015 None hypothyroid Onset of Symptom _ years ago 01/26/2015 None hypertension Quality stable 01/26/2015 None hypertension Blood Pressure Values not checking blood pressure at home 01/26/2015 None hypertension Quality chronic 01/26/2015 None hypertension Onset and Resolution ongoing 01/26/2015 None hypertension Onset of Symptom during adulthood 01/26/2015 None hypertension Triggers no known associated factors 01/26/2015 None hypertension Alleviating Factors medication 01/26/2015 None hypertension Exacerbating Factors stress 01/26/2015 None hypertension Exacerbating Factors change in dietary habits 01/26/2015 None Advance Directives No Advance Directive data Encounters Encounter Performer Location Codes Date EST. PATIENT, LEVEL III Diagnosis: Localized edema[ICD10: R60.0] Diagnosis: Cellulitis of left lower limb[ICD10: L03.116] Diagnosis: Cellulitis of right lower limb[ICD10: L03.115] Kiki Sanchez MD, [facility] CPT-4: 86146 10/18/2018 96739 EST. PATIENT, LEVEL III Diagnosis: Localized edema[ICD10: R60.0] Diagnosis: Cellulitis of left lower limb[ICD10: L03.116] Diagnosis: Cellulitis of right lower limb[ICD10: L03.115] Diagnosis: Chronic obstructive pulmonary disease, unspecified[ICD10: J44.9] Diagnosis: Weakness[ICD10: R53.1] Kiki Sanchez MD, [facility] CPT-4: 43892 10/14/2018 [id number] EST. PATIENT, LEVEL III Diagnosis: Localized edema[ICD10: R60.0] Diagnosis: Cellulitis of left lower limb[ICD10: L03.116] Diagnosis: Cellulitis of right lower limb[ICD10: L03.115] Kiki Sanchez MD, [facility] CPT-4: 44435 10/10/2018 [id number]) [id number] EST. PATIENT, LEVEL IV Diagnosis: Type 2 diabetes mellitus with foot ulcer[ICD10: E11.621] Diagnosis: Essential (primary) hypertension[ICD10: I10] Diagnosis: Malignant neoplasm of prostate[ICD10: C61] Diagnosis: Chronic obstructive pulmonary disease, unspecified[ICD10: J44.9] Diagnosis: Hypoxemia[ICD10: R09.02] Sarah Sanchez MD, [facility] CPT-4: 85577 10/04/2018 ([id number]) 15503 EST. PATIENT, LEVEL IV Diagnosis: Type 2 diabetes mellitus with hyperglycemia[ICD10: E11.65] Diagnosis: Essential (primary) hypertension[ICD10: I10] Diagnosis: Malignant neoplasm of prostate[ICD10: C61] Sarah Sanchez MD, [facility] CPT-4: 92491 08/29/2018 ([id number]) 74848 EST. PATIENT, LEVEL IV Diagnosis: Malignant neoplasm of prostate[ICD10: C61] Dorene Sanchez MD, [facility] CPT-4: 57944 02/25/2018 58943 EST. PATIENT, LEVEL IV Diagnosis: Generalized abdominal pain[ICD10: R10.84] Diagnosis: Unspecified jaundice[ICD10: R17] Diagnosis: Gross hematuria[ICD10: R31.0] Kiki Sanchez MD, [facility] CPT-4 : 03736 02/20/2018 ([id number]) 10808 EST. PATIENT, LEVEL IV Diagnosis: Type 2 diabetes mellitus with hyperglycemia[ICD10: E11.65] Diagnosis: Essential (primary) hypertension[ICD10: I10] Diagnosis: Chronic kidney disease, stage 3 (moderate)[ICD10: N18.3] Diagnosis: Chronic pain syndrome[ICD10: G89.4] Diagnosis: Other specified hypothyroidism[ICD10: E03.8] Diagnosis: Encounter for screening for malignant neoplasm of prostate[ICD10: Z12.5] Diagnosis: Encounter for immunization[ICD10: Z23] Sarah Sanchez MD, [facility] CPT-4: 28966 02/05/2018 ([id number]) 18185 EST. PATIENT, LEVEL IV Diagnosis: Type 2 diabetes mellitus with hyperglycemia[ICD10: E11.65] Diagnosis: Essential (primary) hypertension[ICD10: I10] Dorene Sanchez MD, [facility] CPT-4: 57187 11/08/2017 ([id number]) 40188 EST. PATIENT, LEVEL IV Diagnosis: Type 2 diabetes mellitus with hyperglycemia[ICD10: E11.65] Diagnosis: Chronic pain syndrome[ICD10: G89.4] Diagnosis: Essential (primary) hypertension[ICD10: I10] Diagnosis: Chronic kidney disease, stage 3 (moderate)[ICD10: N18.3] Diagnosis: Localized edema[ICD10: R60.0] Dorene Sanchez MD, [facility] CPT- 4: 95073 09/20/2017 ([id number]) 21619 EST. PATIENT, LEVEL III Diagnosis: Type 2 diabetes mellitus with hyperglycemia[ICD10: E11.65] Sarah Sanchez MD, [facility] CPT-4: 99188 06/25/2017 ([id number]) 14618 EST. PATIENT, LEVEL III Diagnosis: Cellulitis of left lower limb[ICD10: L03.116] Sarah Sanchez MD, [facility] CPT-4: 13451 06/07/2017 ([id number]) 21418 EST. PATIENT, LEVEL III Diagnosis: Localized edema[ICD10: R60.0] Diagnosis: Type 2 diabetes mellitus with foot ulcer[ICD10: E11.621] Sarah Sanchez MD [facility] CPT-4: 44427 05/03/2017 ([id number]) 56138 EST. PATIENT, LEVEL III Diagnosis: Cellulitis of left lower limb[ICD10: L03.116] Diagnosis: Localized edema[ICD10: R60.0] Sarah Sanchez MD, [facility] CPT-4: 34944 04/02/2017 ([id number]) Miscellaneous no charge Diagnosis: Localized edema[ICD10: R60.0] Diagnosis: Cellulitis of left lower limb[ICD10: L03.116] Sarah Sanchez MD, [facility] CPT-4: 93691 03/26/2017 ([id number]) 42488 EST. 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 CPT-4: 78545 03/22/2017 ([id number]) 31158 EST. PATIENT, LEVEL IV Diagnosis: Type 2 diabetes mellitus with hyperglycemia[ICD10: E11.65] Diagnosis: Other specified hypothyroidism[ICD10: E03.8] Diagnosis: Essential (primary) hypertension[ICD10: I10] Sarah Sanchez MD, [facility] CPT-4: 79918 03/08/2017 ([id number]) 96959 EST. PATIENT, LEVEL III Diagnosis: Type 2 diabetes mellitus with hyperglycemia[ICD10: E11.65] Diagnosis: Other specified hypothyroidism[ICD10: E03.8] Sarah Sanchez MD, [facility] CPT-4: 30501 12/06/2016 ([id number]) 27767 EST. PATIENT, LEVEL IV Diagnosis: Essential (primary) hypertension[ICD10: I10] Diagnosis: Chronic kidney disease, stage 3 (moderate)[ICD10: N18.3] Dorene Sanchez MD, [facility] CPT-4: 00826 11/28/2016 ([id number]) 59714 EST. PATIENT, LEVEL IV Diagnosis: Essential (primary) hypertension[ICD10: I10] Diagnosis: Chronic pain syndrome[ICD10: G89.4] Diagnosis: Chronic kidney disease, stage 3 (moderate)[ICD10: N18.3] Diagnosis: Vitamin B12 deficiency anemia due to intrinsic factor deficiency[ ICD10: D51.0] Diagnosis: Other specified hypothyroidism[ICD10: E03.8] Dorene Sanchez MD, [facility] CPT-4: 29591 05/04/2016 83235 EST. PATIENT, LEVEL III Diagnosis: Chronic pain syndrome[ICD10: G89.4] Diagnosis: Essential (primary) hypertension[ICD10: I10] Diagnosis: Other specified hypothyroidism[ICD10: E03.8] Kiki Sanchez MD, [facility] CPT-4: 18354 11/04/2015 [id number] EST. PATIENT, LEVEL III Diagnosis: Chronic pain syndrome[ICD10: G89.4] Diagnosis: Essential (primary) hypertension[ICD10: I10] Kiki Sanchez MD, [facility] CPT-4: 59347 07/30/2015 ([id number]) OFFICE/OUTPATIENT VISIT NEW Diagnosis: ESSENTIAL HYPERTENSION[ICD9: 401.9] Diagnosis: HYPOTHYROIDISM[ICD9: 244.9] Diagnosis: ANEMIA[ICD9: 285.9] Diagnosis: Vitamin B12 deficiency[ICD9: 266.2] Diagnosis: CHRONIC PAIN SYNDROME[ICD9: 338.4] Diagnosis: Chronic renal insufficiency, stage III (moderate)[ICD9: 585.3] Diagnosis: GOUT[ICD9: 274.9] [facility] CPT-4: 32615 01/26/2015 Plan of Care Planned Activity Notes Codes Status Date Visit Plan: Edema - pt has been advised to elevate legs to prevent dependent edema, compression has been recommended to help to naturally decrease peripheral edema. Diuretic use has been discussed and pt has been instructed in appropriate use of such medication as necessary to further attempt to reduce peripheral edema. Cellulitis - continue with oral antibiotics as previously directed, return to clinic as previously directed, call for acute change in symptoms, worsening redness, warmth, discharge. 10/18/2018 Appointment: Kiki Menjivar WPtel: [address] [place], [place] [phone] (30 min) [facility] 10/18/2018 Patient Education: Patient Medication Summary Completed 10/18/2018 Patient Education: Obesity Completed 10/18/2018 Visit Plan: Edema - pt has been advised to elevate legs to prevent dependent edema, compression has been recommended to help to naturally decrease peripheral edema. Diuretic use has been discussed and pt has been instructed in appropriate use of such medication as necessary to further attempt to reduce peripheral edema. Cellulitis - continue with oral antibiotics as previously directed, return to clinic as previously directed, call for acute change in symptoms, worsening redness, warmth, discharge. Continue with lasix and potassium as ordered x 5 more days - return to clinic on Sunday to monitor COPD, wounds, edema - pt needs hospital bed to help maintain head of bed at 30 degrees and to assist with relieving pressure on leg/feet wounds and to decrease edema. 10/14/2018 Visit Plan: Edema - pt has been advised to elevate legs to prevent dependent edema, compression has been recommended to help to naturally decrease peripheral edema. Diuretic use has been discussed and pt has been instructed in appropriate use of such medication as necessary to further attempt to reduce peripheral edema. Cellulitis - continue with oral antibiotics as previously directed, return to clinic as previously directed, call for acute change in symptoms, worsening redness, warmth, discharge. Continue with lasix and potassium as ordered x 5 more days - return to clinic on Sunday to monitor 10/14/2018 Visit Plan: Edema - pt has been advised to elevate legs to prevent dependent edema, compression has been recommended to help to naturally decrease peripheral edema. Diuretic use has been discussed and pt has been instructed in appropriate use of such medication as necessary to further attempt to reduce peripheral edema. Cellulitis - continue with oral antibiotics as previously directed, return to clinic as previously directed, call for acute change in symptoms, worsening redness, warmth, discharge. Continue with lasix and potassium as ordered x 5 more days - return to clinic on Sunday to monitor COPD, wounds, edema, weakness - pt needs hospital bed to help maintain head of bed at 30 degrees and to assist with relieving pressure on leg/feet wounds and to decrease edema, and to assist with repositioning due to weakness 10/14/2018 Appointment: Kiki Menjivar WPtel: [phone] [facility] (30 min) Complex 10/14/2018 Patient Education: Patient Medication Summary Completed 10/14/2018 Visit Plan: Dr. Sanchez in to evaluate patient Edema - pt has been advised to elevate legs to prevent dependent edema, compression has been recommended to help to naturally decrease peripheral edema. Diuretic use has been discussed and pt has been instructed in appropriate use of such medication as necessary to further attempt to reduce peripheral edema. Cellulitis - continue with oral antibiotics as previously directed, return to clinic as previously directed, call for acute change in symptoms, worsening redness, warmth, discharge. 10/10/2018 Appointment: Kiki Menjivar WPtel: [phone] [phone] (30 min) Complex 10/10/2018 Patient Education: Patient Medication Summary Completed 10/10/2018 Visit Plan: DM with peripheral neuropathy-paperwork completed for diabetic shoes and will fax to Dr Bauer HTN-controlled -no changes Fofarfjhz-KZRO-SNC-prostate cancer with mets- patient qualifies for oxygen-oxygen saturation dropped to 86% on room air during ambulation but increased to 99% on 2L NC at rest-will send orders to [facility] for continue oxygen at 2L per nasal cannula 10/04/2018 Appointment: Sarah Hernandes WPtel: [phone] [phone] [place] (30 min) Complex 10/04/2018 Patient Education: Patient Medication Summary Completed 10/04/2018 Visit Plan: Hypertension - well controlled - continue with current medications, continue with no added salt diet. Pt has been encouraged to exercise daily. The pt has been advised to call the office if there are any acute concerns about change in blood pressure readings at home. Diabetes Mellitus - I have recommended for the patient to have follow up labs prior to the next office visit. The patient has been instructed to continue with current medications as previously directed, continue with regular FSBS monitoring to assure continued control of diabetes. Pt to call for any acute concerns, complaints, or if the blood glucose readings are starting to become less controlled. Metastatic prostate cancer-patient seeing Dr Moreno at the cancer center-patient states he will have teeth pulled so we can discuss further treatment options with Dr Moreno 08/29/2018 Appointment: Sarah Hernandes WPtel: [phone] (15 min) Moderate 08/29/2018 Patient Education: Patient Medication Summary Completed 08/29/2018 Referral: Edgard Rivera MD WPtel: Via [address] with Dr. Moreno. Patient informed. Referral info faxed. Completed 02/27/2018 Visit Plan: Recurrent prostate cancer - I have recommended a referral to Dr. Rivera. We discussed the case at length today- he is not interested in extensive treatment, but if possible to extend his quantity and quality of life, he would like to try. 02/25/2018 Appointment: Dorene Sanchez WPtel: [phone] (15 min) Moderate 02/25/2018 Patient Education: Patient Medication Summary Completed 02/25/2018 Care Plan: Referral Order SNOMED-CT : [id number] Pending 02/25/2018 Visit Plan: Intermittent abdominal pain, jaundice, itching - will check labs and treat as indicated - pt is to go to the ER with any acute change in symptoms or any acute concerns. 02/20/2018 Appointment: Kiki Menjivar WPtel: [facility] (30 min) Complex 02/20/2018 Patient Education: Patient Medication Summary Completed 02/20/2018 Visit Plan: Hypertension - well controlled - continue with current medications, continue with no added salt diet. Pt has been encouraged to exercise daily. The pt has been advised to call the office if there are any acute concerns about change in blood pressure readings at home. Diabetes Mellitus - I have recommended for the patient to have follow up labs prior to the next office visit. The patient has been instructed to continue with current medications as previously directed, continue with regular FSBS monitoring to assure continued control of diabetes. Pt to call for any acute concerns, complaints, or if the blood glucose readings are starting to become less controlled. Chronic renal disease-patient is due for labs Chronic Pain Syndrome - pt has chronic pain - has been maintained on current medications, has not sought out other medications, only uses PRN pain medications as directed, and understands the consequences of over-medication. Hypothyroidism - pt with chronic hypothyroidism, continue with current medication, will monitor pt to signs or symptoms of lack of adequate supplementation. Pt is to continue with current dose of medication unless directed otherwise. Check labs at regular intervals wither q 3 months or q 6 months based on previous levels of control. 02/05/2018 Appointment: Sarah Hernandes WPtel: [facility]6 [address] ([facility] min[facility] Complex 02/05/2018 Patient Education: Patient Medication Summary Completed 02/05/2018 Visit Plan: Medicare Exam - today we discussed the patients past history, immunizations, preventative exams/evaluations - colonoscopy, fecal occult blood testing, routine labs for renal function, glucose, cholesterol, osteoporosis evaluations, cardiovascular testing and cancer screenings. We have also discussed mental health and the signs/symptoms of depression. The patient was advised of home safety evaluations and the need to make sure that as the aging process continues, we need to be aware of different ways to make the home a safer place to reside. The patient has also been counseled that exercise is necessary - and of utmost importance as we age to help decrease fall risk and to maintain independence in the home. Today we discussed the need for the patient to create paperwork for Advanced directives as well as for the patient to provide this office with a copy of her DOPA paperwork for health care surrogate. 11/30/2017 Appointment: Sarah Hernandes WPtel: [facility] [place] [phone] [facility] - Annual Wellness Visit 11/30/2017 Patient Education: Patient Medication Summary Completed 11/30/2017 Visit Plan: Hypertension - well controlled - continue with current medications, continue with no added salt diet. Pt has been encouraged to exercise daily. The pt has been advised to call the office if there are any acute concerns about change in blood pressure readings at home. Diabetes Mellitus - Uncontrolled - per recent FSBS reports. I have recommended for the patient to have follow up labs prior to the next office visit. The patient has been instructed to continue with current medications as previously directed, continue with regular FSBS monitoring to assure continued control of diabetes. Pt to call for any acute concerns, complaints, or if the blood glucose readings are starting to become less controlled. I have recommended for the patient to follow more strictly to the diabetic diet as discussed in clinic to allow for greater blood glucose control. increase the victoza to 1.2 11/08/2017 Appointment: Dorene Sanchez [facility]Ptel[facility] [facility] (15 min) Moderate 11/08/2017 Patient Education: Patient Medication Summary Completed 11/08/2017 Visit Plan: Diabetes Mellitus - controlled - per recent FSBS reports. I have recommended for the patient to have follow up labs prior to the next office visit. The patient has been instructed to continue with current medications as previously directed, continue with regular FSBS monitoring to assure continued control of diabetes. Pt to call for any acute concerns, complaints, or if the blood glucose readings are starting to become less controlled. Hypertension - well controlled - continue with current medications, continue with no added salt diet. Pt has been encouraged to exercise daily. The pt has been advised to call the office if there are any acute concerns about change in blood pressure readings at home. Edema bilateral lower extremities - recommended patient to use thigh -high compression and monitor symptoms, elevate legs as able. Chronic Pain Syndrome - pt has chronic pain - has been maintained on current medications, has not sought out other medications, only uses PRN pain medications as directed, and understands the consequences of over-medication. 09/20/2017 Appointment: Dorene Sanhcez WPtel: [phone] [facility] (15 min) Moderate 09/20/2017 Patient Education: Patient Medication Summary Completed 09/20/2017 Visit Plan: Diabetes Mellitus - Uncontrolled - per recent FSBS reports. I have recommended for the patient to have follow up labs prior to the next office visit. The patient has been instructed to continue with current medications as previously directed, continue with regular FSBS monitoring to assure continued control of diabetes. Pt to call for any acute concerns, complaints, or if the blood glucose readings are starting to become less controlled. I have recommended for the patient to follow more strictly to the diabetic diet as discussed in clinic to allow for greater blood glucose control. 06/25/2017 Visit Plan: Diabetes Mellitus - Uncontrolled - per recent FSBS reports. I have recommended for the patient to have follow up labs prior to the next office visit. The patient has been instructed to continue with current medications as previously directed, continue with regular FSBS monitoring to assure continued control of diabetes. Pt to call for any acute concerns, complaints, or if the blood glucose readings are starting to become less controlled. I have recommended for the patient to follow more strictly to the diabetic diet as discussed in clinic to allow for greater blood glucose control. 06/25/2017 Appointment: Sarah Hernandes WPtel: [facility]5 [phone] (30 min) Complex 06/25/2017 Patient Education: Patient Medication Summary Completed 06/25/2017 Appointment: Sarah Hernandes WPtel: [facility]5 [phone] (30 min) Complex 06/22/2017 Visit Plan: Cellulitis - start oral antibiotics as previously directed, return to clinic as previously directed, call for acute change in symptoms, worsening redness, warmth, discharge. 06/07/2017 Appointment: Sarah Hernandes WPtel: [address] [phone] [place] (30 min) Complex 06/07/2017 Patient Education: Patient Medication Summary Completed 06/07/2017 Patient Education: Obesity Completed 06/07/2017 Appointment: Dorene Sanchez WPtel: [phone] [facility] [place] (15 min) Moderate 05/31/2017 Visit Plan: Edema-significantly improved-no changes Ulcer- left lower leg and foot-seeing Dr Norwood at wound care-appt scheduled with Dr Frausto for vascular evaluation 05/03/2017 Appointment: Sarah Hernandes WPtel: [phone] [phone] (15 min) Moderate 05/03/2017 Patient Education: Patient Medication Summary Completed 05/03/2017 Patient Education: Obesity Completed 05/03/2017 Visit Plan: Ivvsddmzxk-plsxxpvnm-eiezlnm to finish abx-no further treatment indicated Edema-significantly improved-no longer weeping- continue unna boots twice weekly with home health 04/02/2017 Appointment: Sarah Hernandes WPtel: [address] [phone] (30 min) Complex 04/02/2017 Patient Education: Patient Medication Summary Completed 04/02/2017 Patient Education: Obesity Completed 04/02/2017 Visit Plan: Cellulitis-left leg-continue levaquin Edema- increase lasix/potassium-consult ridge for unna boots/dressing changes 03/26/2017 Appointment: Sarah Hernandes WPtel: [phone] [phone] (15 min) Moderate 03/26/2017 Patient Education: Patient Medication Summary Completed 03/26/2017 Patient Education: Obesity Completed 03/26/2017 Visit Plan: Cellulitis-left lower leg-recommended patient be admitted to the hospital but patient refuses due to unable to afford hospitalization -discussed risks of not being admitted-sepsis, loss of leg, etc. Patient verbalized understanding. Will send RX for oral abx to patient's pharmacy and instructed on use-patient agrees to follow up in the clinic on Sunday and if not better, will agree to admission. Marked area of cellulitis with permanent marker and instructed patient to go to ER if redness spreads beyond margins. Patient verbalized understanding. Also discussed home health for nursing to do wraps to bilateral lower legs-patient refuses and states he has the wraps at home and will do them himself. Edema - pt has been advised to elevate legs to prevent dependent edema, compression has been recommended to help to naturally decrease peripheral edema. Diuretic use has been discussed and pt has been instructed in appropriate use of such medication as necessary to further attempt to reduce peripheral edema. RX for lasix/potassium sent electronically and patient verbalized understanding of plan. Gout-refill indomethacin-check renal function DM-patient is noncompliant with treatment/ testing of blood sugars and refuses medications-again discussed the risks of uncontrolled blood sugars with patient-patient verbalized understanding of plan. Addendum-patient's GFR 50-recommend patient stop the indomethacin-stop aleve 03/22/2017 Visit Plan: Cellulitis-left lower leg-recommended patient be admitted to the hospital but patient refuses due to unable to afford hospitalization -discussed risks of not being admitted-sepsis, loss of leg, etc. Patient verbalized understanding. Will send RX for oral abx to patient's pharmacy and instructed on use-patient agrees to follow up in the clinic on Sunday and if not better, will agree to admission. Marked area of cellulitis with permanent marker and instructed patient to go to ER if redness spreads beyond margins. Patient verbalized understanding. Also discussed home health for nursing to do wraps to bilateral lower legs-patient refuses and states he has the wraps at home and will do them himself. Edema - pt has been advised to elevate legs to prevent dependent edema, compression has been recommended to help to naturally decrease peripheral edema. Diuretic use has been discussed and pt has been instructed in appropriate use of such medication as necessary to further attempt to reduce peripheral edema. RX for lasix/potassium sent electronically and patient verbalized understanding of plan. Gout-refill indomethacin-check renal function DM-patient is noncompliant with treatment/ testing of blood sugars and refuses medications-again discussed the risks of uncontrolled blood sugars with patient-patient verbalized understanding of plan. Addendum-patient's GFR 50-recommend patient stop the indomethacin-stop aleve 03/22/2017 Appointment: Sarah Hernandes WPtel: [address] [place], [place] [phone] (15 min) Moderate 03/22/2017 Patient Education: Patient Medication Summary Completed 03/22/2017 Appointment: Lab Draw 03/21/2017 Patient Education: Patient Medication Summary Completed 03/21/2017 Visit Plan: Hypertension - well controlled - continue with current medications, continue with no added salt diet. Pt has been encouraged to exercise daily. The pt has been advised to call the office if there are any acute concerns about change in blood pressure readings at home. Diabetes Mellitus -patient does not check blood sugars and does not want to start medications-has agreed to check labs and discuss adding medication if blood sugars continue to be uncontrolled. Hypothyroidism - pt with chronic hypothyroidism, continue with current medication, will monitor pt to signs or symptoms of lack of adequate supplementation. Pt is to continue with current dose of medication unless directed otherwise. Check labs at regular intervals wither q 3 months or q 6 months based on previous levels of control. 03/08/2017 Visit Plan: Hypertension - well controlled - continue with current medications, continue with no added salt diet. Pt has been encouraged to exercise daily. The pt has been advised to call the office if there are any acute concerns about change in blood pressure readings at home. Diabetes Mellitus -patient does not check blood sugars and does not want to start medications-has agreed to check labs and discuss adding medication if blood sugars continue to be uncontrolled. Hypothyroidism - pt with chronic hypothyroidism, continue with current medication, will monitor pt to signs or symptoms of lack of adequate supplementation. Pt is to continue with current dose of medication unless directed otherwise. Check labs at regular intervals wither q 3 months or q 6 months based on previous levels of control. 03/08/2017 Appointment: Sarah Hernandes WPtel: [address] [place], [place] [phone] (30 min) Complex 03/08/2017 Patient Education: Patient Medication Summary Completed 03/08/2017 Visit Plan: DM-new diagnosis-discussed diabetes in detail today including diet and exercise-patient wants to try diet/exercise x 3 months before agreeing to medication-will plan for repeat labs in 3 months-sooner if needed 12/06/2016 Visit Plan: DM-new diagnosis-discussed diabetes in detail today including diet and exercise-patient wants to try diet/exercise x 3 months before agreeing to medication-will plan for repeat labs in 3 months-sooner if needed 12/06/2016 Appointment: (30 min) Complex 12/06/2016 Patient Education: Patient Medication Summary Completed 12/06/2016 Patient Education: Obesity Completed 12/06/2016 Visit Plan: Medicare Exam - today we discussed the patients past history, immunizations, preventative exams/evaluations - colonoscopy, fecal occult blood testing, routine labs for renal function, glucose, cholesterol, osteoporosis evaluations, cardiovascular testing and cancer screenings. We have also discussed mental health and the signs/symptoms of depression. The patient was advised of home safety evaluations and the need to make sure that as the aging process continues, we need to be aware of different ways to make the home a safer place to reside. The patient has also been counseled that exercise is necessary - and of utmost importance as we age to help decrease fall risk and to maintain independence in the home. Today we discussed the need for the patient to create paperwork for Advanced directives as well as for the patient to provide this office with a copy of her DOPA paperwork for health care surrogate. 11/30/2016 Visit Plan: Medicare Exam - today we discussed the patients past history, immunizations, preventative exams/evaluations - colonoscopy, fecal occult blood testing, routine labs for renal function, glucose, cholesterol, osteoporosis evaluations, cardiovascular testing and cancer screenings. We have also discussed mental health and the signs/symptoms of depression. The patient was advised of home safety evaluations and the need to make sure that as the aging process continues, we need to be aware of different ways to make the home a safer place to reside. The patient has also been counseled that exercise is necessary - and of utmost importance as we age to help decrease fall risk and to maintain independence in the home. Today we discussed the need for the patient to create paperwork for Advanced directives as well as for the patient to provide this office with a copy of her DOPA paperwork for health care surrogate. 11/30/2016 Visit Plan: Medicare Exam - today we discussed the patients past history, immunizations, preventative exams/evaluations - colonoscopy, fecal occult blood testing, routine labs for renal function, glucose, cholesterol, osteoporosis evaluations, cardiovascular testing and cancer screenings. We have also discussed mental health and the signs/symptoms of depression. The patient was advised of home safety evaluations and the need to make sure that as the aging process continues, we need to be aware of different ways to make the home a safer place to reside. The patient has also been counseled that exercise is necessary - and of utmost importance as we age to help decrease fall risk and to maintain independence in the home. Today we discussed the need for the patient to create paperwork for Advanced directives as well as for the patient to provide this office with a copy of her DOPA paperwork for health care surrogate. 11/30/2016 Appointment: Sarah Hernandes WPtel[facility] [phone] [phone] [facility] - Annual Wellness Visit 11/30/2016 Patient Education: Patient Medication Summary Completed 11/30/2016 Visit Plan: Hypertension - well controlled - continue with current medications, continue with no added salt diet. Pt has been encouraged to exercise daily. The pt has been advised to call the office if there are any acute concerns about change in blood pressure readings at home. Renal failure - continue with increase in fluids. 11/28/2016 Appointment: Dorene Sanchez WPtel: [address] [facility] (15 min) Moderate 11/28/2016 Patient Education: Patient Medication Summary Completed 11/28/2016 Patient Education: Obesity Completed 11/28/2016 Visit Plan: Hypertension - well controlled - continue with current medications, continue with no added salt diet. Pt has been encouraged to exercise daily. The pt has been advised to call the office if there are any acute concerns about change in blood pressure readings at home. Chronic Pain Syndrome - pt has chronic pain - has been maintained on current medications, has not sought out other medications, only uses PRN pain medications as directed , and understands the consequences of over-medication. CKD - continue with supportive care and medication monitoring. 05/04/2016 Patient Education: Patient Medication Summary Completed 05/04/2016 Care Plan: Comp Metabolic Cancelled 05/04/2016 Care Plan: Cbc With Differential Cancelled 05/04/2016 Care Plan: Tsh Cancelled 05/04/2016 Care Plan: Lipid Cancelled 05/04/2016 Visit Plan: Chronic Pain Syndrome - pt has chronic pain - has been maintained on current medications, has not sought out other medications , only uses PRN pain medications as directed, and understands the consequences of over-medication. Hypertension - well controlled - continue with current medications, continue with no added salt diet. Pt has been encouraged to exercise daily. The pt has been advised to call the office if there are any acute concerns about change in blood pressure readings at home. Hypothyroidism - pt with chronic hypothyroidism, continue with current medication, will monitor pt to signs or symptoms of lack of adequate supplementation. Pt is to continue with current dose of medication unless directed otherwise. Check labs at regular intervals wither q 3 months or q 6 months based on previous levels of control. 11/04/2015 Appointment: (30 min) Complex 11/04/2015 Patient Education: Patient Medication Summary Completed 11/04/2015 Patient Education: Hypertension Completed 11/04/2015 Visit Plan: Chronic Pain Syndrome - pt has chronic pain - has been maintained on current medications, has not sought out other medications , only uses PRN pain medications as directed, and understands the consequences of over-medication. 07/30/2015 Appointment: (10 min) Simple 07/30/2015 Patient Education: Patient Medication Summary Completed 07/30/2015 Patient Education: Hypertension Completed 07/30/2015 Visit Plan: Hypertension - well controlled - continue with current medications, continue with no added salt diet. Pt has been encouraged to exercise daily. The pt has been advised to call the office if there are any acute concerns about change in blood pressure readings at home. Anemia - multifactorial - recommended pt to have labs today - check vitamin B12, folate, iron studies. Chronic renal insufficiency - recommended pt to have repeat labs today - need to be careful with indomethacin. Chronic Pain syndrome - refill oxycodone. Hypothyroidism - pt with chronic hypothyroidism, continue with current medication, will monitor pt to signs or symptoms of lack of adequate supplementation. Pt is to continue with current dose of medication unless directed otherwise. Check labs at regular intervals wither q 3 months or q 6 months based on previous levels of control. Gout - pt to use indomethacin PRN - sparingly - he stopped allopurinol after having trouble with worsening gout symptoms. Vitamin B12 deficiency - pt to have labs - may need b12 shots. 01/26/2015 Patient Education: Patient Medication Summary Completed 01/26/2015 Patient Education: Hypertension Completed 01/26/2015 Referral: Edgard Rivera MD WPtel: [id number] [place] Referral Appointment Requested Instructions Comment . Hypertension - well controlled - continue with current medications, continue with no added salt diet. Pt has been encouraged to exercise daily. The pt has been advised to call the office if there are any acute concerns about change in blood pressure readings at home. Chronic Pain Syndrome - pt has chronic pain - has been maintained on current medications, has not sought out other medications, only uses PRN pain medications as directed, and understands the consequences of over-medication. CKD - continue with supportive care and medication monitoring. RETURN LATER THIS WEEK FOR FASTING LABS (NOTHING TO EAT OR DRINK 8-12 HOURS ) APPT IN 3 MONTHS -SOONER IF YOU NEED SOMETHING PNEUMOVAX 23 TODAY . Hypertension - well controlled - continue with current medications, continue with no added salt diet. Pt has been encouraged to exercise daily. The pt has been advised to call the office if there are any acute concerns about change in blood pressure readings at home. Diabetes Mellitus - I have recommended for the patient to have follow up labs prior to the next office visit. The patient has been instructed to continue with current medications as previously directed, continue with regular FSBS monitoring to assure continued control of diabetes. Pt to call for any acute concerns, complaints, or if the blood glucose readings are starting to become less controlled. Chronic renal disease-patient is due for labs Chronic Pain Syndrome - pt has chronic pain - has been maintained on current medications, has not sought out other medications, only uses PRN pain medications as directed, and understands the consequences of over-medication. Hypothyroidism - pt with chronic hypothyroidism, continue with current medication, will monitor pt to signs or symptoms of lack of adequate supplementation. Pt is to continue with current dose of medication unless directed otherwise. Check labs at regular intervals wither q 3 months or q 6 months based on previous levels of control. . Chronic Pain Syndrome - pt has chronic pain - has been maintained on current medications, has not sought out other medications, only uses PRN pain medications as directed, and understands the consequences of over- medication. . Diabetes Mellitus - controlled - per recent FSBS reports. I have recommended for the patient to have follow up labs prior to the next office visit. The patient has been instructed to continue with current medications as previously directed, continue with regular FSBS monitoring to assure continued control of diabetes. Pt to call for any acute concerns, complaints, or if the blood glucose readings are starting to become less controlled. Hypertension - well controlled - continue with current medications, continue with no added salt diet. Pt has been encouraged to exercise daily. The pt has been advised to call the office if there are any acute concerns about change in blood pressure readings at home. Edema bilateral lower extremities - recommended patient to use thigh -high compression and monitor symptoms, elevate legs as able. Chronic Pain Syndrome - pt has chronic pain - has been maintained on current medications, has not sought out other medications, only uses PRN pain medications as directed, and understands the consequences of over-medication. . Medicare Exam - today we discussed the patients past history, immunizations, preventative exams/evaluations - colonoscopy, fecal occult blood testing, routine labs for renal function, glucose, cholesterol, osteoporosis evaluations, cardiovascular testing and cancer screenings. We have also discussed mental health and the signs/symptoms of depression. The patient was advised of home safety evaluations and the need to make sure that as the aging process continues, we need to be aware of different ways to make the home a safer place to reside. The patient has also been counseled that exercise is necessary - and of utmost importance as we age to help decrease fall risk and to maintain independence in the home. Today we discussed the need for the patient to create paperwork for Advanced directives as well as for the patient to provide this office with a copy of her DOPA paperwork for health care surrogate. . Hypertension - well controlled - continue with current medications, continue with no added salt diet. Pt has been encouraged to exercise daily. The pt has been advised to call the office if there are any acute concerns about change in blood pressure readings at home. Renal failure - continue with increase in fluids. Take lasix 20mg a day twice a day and potassium once a day x 4 days come back on Sunday at 3PM low salt diet and put your feet up when sitting. will have home health dress your legs will start you on keflex 500mg three times a day for [address] Sanchez in to evaluate patient Edema - pt has been advised to elevate legs to prevent dependent edema, compression has been recommended to help to naturally decrease peripheral edema. Diuretic use has been discussed and pt has been instructed in appropriate use of such medication as necessary to further attempt to reduce peripheral edema. Cellulitis - continue with oral antibiotics as previously directed, return to clinic as previously directed, call for acute change in symptoms, worsening redness, warmth, discharge. REPEAT HGB A1C, CMP, TSH, FREE T4 IN 3 MONTHS CUT OUT SODA, LIMIT SWEETS, CUT BACK ON CARBS (BREADS, PASTAS, POTATOES . DM-new diagnosis-discussed diabetes in detail today including diet and exercise-patient wants to try diet/exercise x 3 months before agreeing to medication-will plan for repeat labs in 3 months-sooner if needed REPEAT HGB A1C, CMP, TSH, FREE T4 IN 3 MONTHS CUT OUT SODA, LIMIT SWEETS, CUT BACK ON CARBS (BREADS, PASTAS, POTATOES . DM-new diagnosis-discussed diabetes in detail today including diet and exercise-patient wants to try diet/exercise x 3 months before agreeing to medication-will plan for repeat labs in 3 months-sooner if needed . Recurrent prostate cancer - I have recommended a referral to Dr. Rivera. We discussed the case at length today- he is not interested in extensive treatment, but if possible to extend his quantity and quality of life, he would like to try. INCREASE LASIX AND POTASSIUM TO TWICE DAILY CONTNUE LEVAQUIN [facility] UNNA BOOTS -WOUND CARE . Cellulitis-left leg-continue levaquin Edema-increase lasix/potassium-consult [facility] for unna boots/dressing changes WRAP LEGS-THIGHS TO TOES LEVAQUIN 500MG DAILY ER OVER THE WEEKEND IF REDNESS INCREASES . Cellulitis-left lower leg-recommended patient be admitted to the hospital but patient refuses due to unable to afford hospitalization -discussed risks of not being admitted-sepsis, loss of leg, etc. Patient verbalized understanding. Will send RX for oral abx to patient's pharmacy and instructed on use-patient agrees to follow up in the clinic on Sunday and if not better, will agree to admission. Marked area of cellulitis with permanent marker and instructed patient to go to ER if redness spreads beyond margins. Patient verbalized understanding. Also discussed home health for nursing to do wraps to bilateral lower legs-patient refuses and states he has the wraps at home and will do them himself. Edema - pt has been advised to elevate legs to prevent dependent edema, compression has been recommended to help to naturally decrease peripheral edema. Diuretic use has been discussed and pt has been instructed in appropriate use of such medication as necessary to further attempt to reduce peripheral edema. RX for lasix/potassium sent electronically and patient verbalized understanding of plan. Gout-refill indomethacin-check renal function DM-patient is noncompliant with treatment/testing of blood sugars and refuses medications-again discussed the risks of uncontrolled blood sugars with patient- patient verbalized understanding of plan. Addendum-patient's GFR 50-recommend patient stop the indomethacin-stop aleve WRAP LEGS-THIGHS TO TOES LEVAQUIN 500MG DAILY ER OVER THE WEEKEND IF REDNESS INCREASES . Cellulitis-left lower leg-recommended patient be admitted to the hospital but patient refuses due to unable to afford hospitalization -discussed risks of not being admitted-sepsis, loss of leg, etc. Patient verbalized understanding. Will send RX for oral abx to patient's pharmacy and instructed on use-patient agrees to follow up in the clinic on Sunday and if not better, will agree to admission. Marked area of cellulitis with permanent marker and instructed patient to go to ER if redness spreads beyond margins. Patient verbalized understanding. Also discussed home health for nursing to do wraps to bilateral lower legs-patient refuses and states he has the wraps at home and will do them himself. Edema - pt has been advised to elevate legs to prevent dependent edema, compression has been recommended to help to naturally decrease peripheral edema. Diuretic use has been discussed and pt has been instructed in appropriate use of such medication as necessary to further attempt to reduce peripheral edema. RX for lasix/potassium sent electronically and patient verbalized understanding of plan. Gout-refill indomethacin-check renal function DM-patient is noncompliant with treatment/testing of blood sugars and refuses medications-again discussed the risks of uncontrolled blood sugars with patient- patient verbalized understanding of plan. 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 HIS SHOWER IS TEXTURED TO DECREASE FALL RISK. EDUCATION REGARDING THE IMPORTANCE OF DECREASING FALL HAZARDS IN THE HOME. MAINTAIN REGULAR SCHEDULED ANNUAL EYE AND DENTAL EXAMS COLONOSCOPY UP TO DATE RECOMMEND CARDIOLOGY FOLLOW UP/ECHO -PATIENT DECLINES AT THIS TIME . Medicare Exam - today we discussed the patients past history, immunizations, preventative exams/evaluations - colonoscopy, fecal occult blood testing, routine labs for renal function, glucose, cholesterol, osteoporosis evaluations , cardiovascular testing and cancer screenings. We have also discussed mental health and the signs/symptoms of depression. The patient was advised of home safety evaluations and the need to make sure that as the aging process continues , we need to be aware of different ways to make the home a safer place to reside. The patient has also been counseled that exercise is necessary - and of utmost importance as we age to help decrease fall risk and to maintain independence in the home. Today we discussed the need for the patient to create paperwork for Advanced directives as well as for the patient to provide this office with a copy of her DOPA paperwork for health care surrogate. PREVNAR 13 TODAY- GIVEN IN OFFICE PREVNAR 23 IN ONE YEAR SHINGLES VACCINATION TO BE ADMINISTERED AT [facility] RECOMMEND OBTAINING MEDICAL POWER OF DIRECTOR CONSUMER AND LIVING WILL PATIENT DOES NOT HAVE STEPS OR RUGS IN LIVING SPACE. HIS SHOWER IS TEXTURED TO DECREASE FALL RISK. EDUCATION REGARDING THE IMPORTANCE OF DECREASING FALL HAZARDS IN THE HOME. MAINTAIN REGULAR SCHEDULED ANNUAL EYE AND DENTAL EXAMS COLONOSCOPY UP TO DATE RECOMMEND CARDIOLOGY FOLLOW UP/ECHO -PATIENT DECLINES AT THIS TIME . Medicare Exam - today we discussed the patients past history, immunizations, preventative exams/evaluations - colonoscopy, fecal occult blood testing, routine labs for renal function, glucose, cholesterol, osteoporosis evaluations , cardiovascular testing and cancer screenings. We have also discussed mental health and the signs/symptoms of depression. The patient was advised of home safety evaluations and the need to make sure that as the aging process continues , we need to be aware of different ways to make the home a safer place to reside. The patient has also been counseled that exercise is necessary - and of utmost importance as we age to help decrease fall risk and to maintain independence in the home. Today we discussed the need for the patient to create paperwork for Advanced directives as well as for the patient to provide this office with a copy of her DOPA paperwork for health care surrogate. PREVNAR 13 TODAY- GIVEN IN OFFICE PREVNAR 23 IN ONE YEAR SHINGLES VACCINATION TO BE ADMINISTERED AT [facility] RECOMMEND OBTAINING MEDICAL POWER OF DIRECTOR CONSUMER AND LIVING WILL PATIENT DOES NOT HAVE STEPS OR RUGS IN LIVING SPACE. HIS SHOWER IS TEXTURED TO DECREASE FALL RISK. EDUCATION REGARDING THE IMPORTANCE OF DECREASING FALL HAZARDS IN THE HOME. MAINTAIN REGULAR SCHEDULED ANNUAL EYE AND DENTAL EXAMS COLONOSCOPY UP TO DATE RECOMMEND CARDIOLOGY FOLLOW UP/ECHO -PATIENT DECLINES AT THIS TIME . Medicare Exam - today we discussed the patients past history, immunizations, preventative exams/evaluations - colonoscopy, fecal occult blood testing, routine labs for renal function, glucose, cholesterol, osteoporosis evaluations , cardiovascular testing and cancer screenings. We have also discussed mental health and the signs/symptoms of depression. The patient was advised of home safety evaluations and the need to make sure that as the aging process continues , we need to be aware of different ways to make the home a safer place to reside. The patient has also been counseled that exercise is necessary - and of utmost importance as we age to help decrease fall risk and to maintain independence in the home. Today we discussed the need for the patient to create paperwork for Advanced directives as well as for the patient to provide this office with a copy of her DOPA paperwork for health care surrogate. . Hypertension - well controlled - continue with current medications, continue with no added salt diet. Pt has been encouraged to exercise daily. The pt has been advised to call the office if there are any acute concerns about change in blood pressure readings at home. Diabetes Mellitus - I have recommended for the patient to have follow up labs prior to the next office visit. The patient has been instructed to continue with current medications as previously directed, continue with regular FSBS monitoring to assure continued control of diabetes. Pt to call for any acute concerns, complaints, or if the blood glucose readings are starting to become less controlled. Metastatic prostate cancer-patient seeing Dr Moreno at the cancer center-patient states he will have teeth pulled so we can discuss further treatment options with Dr Moreno WOUND CARE APPT ANTIBIOTIC TO [facility] . Cellulitis - start oral antibiotics as previously directed, return to clinic as previously directed, call for acute change in symptoms, worsening redness, warmth, discharge. Monitor your blood pressure at home and record. Bring in your readings to your next appointment, or as directed. Call for chest pain, shortness of breath, headaches, or other concerns. . Hypertension - well controlled - continue with current medications, continue with no added salt diet. Pt has been encouraged to exercise daily. The pt has been advised to call the office if there are any acute concerns about change in blood pressure readings at home. Anemia - multifactorial - recommended pt to have labs today - check vitamin B12 , folate, iron studies. Chronic renal insufficiency - recommended pt to have repeat labs today - need to be careful with indomethacin. Chronic Pain syndrome - refill oxycodone. Hypothyroidism - pt with chronic hypothyroidism, continue with current medication, will monitor pt to signs or symptoms of lack of adequate supplementation. Pt is to continue with current dose of medication unless directed otherwise. Check labs at regular intervals wither q 3 months or q 6 months based on previous levels of control. Gout - pt to use indomethacin PRN - sparingly - he stopped allopurinol after having trouble with worsening gout symptoms. Vitamin B12 deficiency - pt to have labs - may need b12 shots. victoza 0.6mg daily . Diabetes Mellitus - Uncontrolled - per recent FSBS reports. I have recommended for the patient to have follow up labs prior to the next office visit. The patient has been instructed to continue with current medications as previously directed, continue with regular FSBS monitoring to assure continued control of diabetes. Pt to call for any acute concerns, complaints, or if the blood glucose readings are starting to become less controlled. I have recommended for the patient to follow more strictly to the diabetic diet as discussed in clinic to allow for greater blood glucose control. victoza 0.6mg daily . Diabetes Mellitus - Uncontrolled - per recent FSBS reports. I have recommended for the patient to have follow up labs prior to the next office visit. The patient has been instructed to continue with current medications as previously directed, continue with regular FSBS monitoring to assure continued control of diabetes. Pt to call for any acute concerns, complaints, or if the blood glucose readings are starting to become less controlled. I have recommended for the patient to follow more strictly to the diabetic diet as discussed in clinic to allow for greater blood glucose control. . Edema - pt has been advised to elevate legs to prevent dependent edema, compression has been recommended to help to naturally decrease peripheral edema. Diuretic use has been discussed and pt has been instructed in appropriate use of such medication as necessary to further attempt to reduce peripheral edema. Cellulitis - continue with oral antibiotics as previously directed, return to clinic as previously directed, call for acute change in symptoms, worsening redness, warmth, discharge. Continue with lasix and potassium as ordered x 5 more days - return to clinic on Sunday to monitor COPD, wounds, edema - pt needs hospital bed to help maintain head of bed at 30 degrees and to assist with relieving pressure on leg/feet wounds and to decrease edema. . Edema - pt has been advised to elevate legs to prevent dependent edema, compression has been recommended to help to naturally decrease peripheral edema. Diuretic use has been discussed and pt has been instructed in appropriate use of such medication as necessary to further attempt to reduce peripheral edema. Cellulitis - continue with oral antibiotics as previously directed, return to clinic as previously directed, call for acute change in symptoms, worsening redness, warmth, discharge. Continue with lasix and potassium as ordered x 5 more days - return to clinic on Sunday to monitor . Edema - pt has been advised to elevate legs to prevent dependent edema, compression has been recommended to help to naturally decrease peripheral edema. Diuretic use has been discussed and pt has been instructed in appropriate use of such medication as necessary to further attempt to reduce peripheral edema. Cellulitis - continue with oral antibiotics as previously directed, return to clinic as previously directed, call for acute change in symptoms, worsening redness, warmth, discharge. Continue with lasix and potassium as ordered x 5 more days - return to clinic on Sunday to monitor COPD, wounds, edema, weakness - pt needs hospital bed to help maintain head of bed at 30 degrees and to assist with relieving pressure on leg/feet wounds and to decrease edema, and to assist with repositioning due to weakness take lasix 2 in the morning and one at night, take a full potassium in the morning and 1/2 at night let me know how you are feeling on Sunday will have home health draw some labs on you to monitor your potassium will order an autopap so that we can get your sleep apnea machine settings readjusted. . Edema - pt has been advised to elevate legs to prevent dependent edema, compression has been recommended to help to naturally decrease peripheral edema. Diuretic use has been discussed and pt has been instructed in appropriate use of such medication as necessary to further attempt to reduce peripheral edema. Cellulitis - continue with oral antibiotics as previously directed, return to clinic as previously directed, call for acute change in symptoms, worsening redness, warmth, discharge. . Vtvdlwzdaw-nihlndlen-bnwgdhy to finish abx-no further treatment indicated Edema-significantly improved-no longer weeping-continue unna boots twice weekly with home health Repeat labs at next appointment . Edema-significantly improved-no changes Ulcer-left lower leg and foot-seeing Dr Norwood at wound care-appt scheduled with Dr Frausto for vascular evaluation increase the victoza to 1.2 . Hypertension - well controlled - continue with current medications, continue with no added salt diet. Pt has been encouraged to exercise daily. The pt has been advised to call the office if there are any acute concerns about change in blood pressure readings at home. Diabetes Mellitus - Uncontrolled - per recent FSBS reports. I have recommended for the patient to have follow up labs prior to the next office visit. The patient has been instructed to continue with current medications as previously directed, continue with regular FSBS monitoring to assure continued control of diabetes. Pt to call for any acute concerns, complaints, or if the blood glucose readings are starting to become less controlled. I have recommended for the patient to follow more strictly to the diabetic diet as discussed in clinic to allow for greater blood glucose control. increase the victoza to 1.2 . Chronic Pain Syndrome - pt has chronic pain - has been maintained on current medications, has not sought out other medications, only uses PRN pain medications as directed, and understands the consequences of over- medication. Hypertension - well controlled - continue with current medications, continue with no added salt diet. Pt has been encouraged to exercise daily. The pt has been advised to call the office if there are any acute concerns about change in blood pressure readings at home. Hypothyroidism - pt with chronic hypothyroidism, continue with current medication, will monitor pt to signs or symptoms of lack of adequate supplementation. Pt is to continue with current dose of medication unless directed otherwise. Check labs at regular intervals wither q 3 months or q 6 months based on previous levels of control. . Hypertension - well controlled - continue with current medications, continue with no added salt diet. Pt has been encouraged to exercise daily. The pt has been advised to call the office if there are any acute concerns about change in blood pressure readings at home. Diabetes Mellitus -patient does not check blood sugars and does not want to start medications-has agreed to check labs and discuss adding medication if blood sugars continue to be uncontrolled. Hypothyroidism - pt with chronic hypothyroidism, continue with current medication, will monitor pt to signs or symptoms of lack of adequate supplementation. Pt is to continue with current dose of medication unless directed otherwise. Check labs at regular intervals wither q 3 months or q 6 months based on previous levels of control. . Hypertension - well controlled - continue with current medications, continue with no added salt diet. Pt has been encouraged to exercise daily. The pt has been advised to call the office if there are any acute concerns about change in blood pressure readings at home. Diabetes Mellitus -patient does not check blood sugars and does not want to start medications-has agreed to check labs and discuss adding medication if blood sugars continue to be uncontrolled. Hypothyroidism - pt with chronic hypothyroidism, continue with current medication, will monitor pt to signs or symptoms of lack of adequate supplementation. Pt is to continue with current dose of medication unless directed otherwise. Check labs at regular intervals wither q 3 months or q 6 months based on previous levels of control. . DM with peripheral neuropathy-paperwork completed for diabetic shoes and will fax to Dr Bauer HTN-controlled -no changes Wrhqnoywx-[id number]-prostate cancer with mets- patient qualifies for oxygen- oxygen saturation dropped to 86% on room air during ambulation but increased to 99% on 2L NC at rest-will send orders to [facility] for continue oxygen at 2L per nasal cannula . Intermittent abdominal pain, jaundice, itching - will check labs and treat as indicated - pt is to go to the ER with any acute change in symptoms or any acute concerns.
--- OUTSIDE RECORDS SUMMARY | 2018-11-26 11:13 | XMS REPORT | CCD ---
Author Author [facility]orene Sanchez Organization [facility] Address [address] [place] [address] Phone Care Team Providers Care Seo Marketing Specialist Name Role Phone PP Unavailable CCM Unavailable Summary Purpose Interface Exchange Insurance Providers Payer name Policy type / Coverage type Covered constitution party ID Effective Begin Date Effective End Date WPS Medicare Part B Medicare Part B [id number] Unknown Unknown Family history Father Diagnosis Age At Onset Stroke Unknown Mother Diagnosis Age At Onset Stroke Unknown Diabetes mellitus Type 2 Unknown Social History Social History Element Codes Description Effective Dates Tobacco history SNOMED CT: 543863892 Currently uses smokeless tobacco Chews 05/04/2016 Marital status Unknown 01/26/2015 Number of children Unknown 3 01/26/2015 Employment Unknown Retired 01/26/[address]: 244839300 Never drinks alcohol quit in July 2014 [...] Start Date Stop Date Status Fill Instructions gabapentin 100 mg capsule RxNorm: 263353 1 Capsule(s) BID 11/0505/03/2019 Active potassium chloride ER 10 mEq tablet,extended release RxNorm: 612396 TAKE ONE TABLET BY MOUTH DAILY 11/04/20182018 Active Probiotic 10 billion cell capsule RxNorm: 5844853 1 Capsule(s) PO BID 10/25/2018 10/24/2018 Inactive Keflex 500 mg capsule RxNorm: 521367 1 Capsule(s) PO QID 201810/31/2018 Inactive Probiotic 10 billion cell capsule RxNorm: 7316374 1 Capsule(s) PO BID 10/25/2018 10/31/2018 Inactive oxycodone 20 mg tablet RxNorm: 1588246 1/2 Tablet(s) PO Q6 as needed 10/14/2018 11/12/2018 Active Lasix 20 mg tablet RxNorm: 362843 1 Tablet(s) PO BID 201804/07/2019 Active Keflex 500 mg capsule RxNorm: 700028 1 Capsule(s) PO TID 201810/19/2018 Inactive potassium chloride ER 10 mEq tablet,extended release RxNorm: 004970 1 Tablet(s) PO daily 10/10/2018 11/03/2018 Inactive albuterol sulfate 2.5 mg/3 mL (0.083 %) solution for nebulization RxNorm: 427669 1 Milliliter(s) INH TID DX J44.9 10/04/2018 01/31/2019 Active gabapentin 100 mg capsule RxNorm: 801622 TAKE ONE CAPSULE BY MOUTH IN THE EVENING AT 5PM 09/24/2018 11/04/2018 Inactive oxycodone 20 mg tablet RxNorm: 5347090 1/2 Tablet(s) PO Q6 as needed 09/12/2018 10/11/2018 Inactive oxycodone 20 mg tablet RxNorm: 4366452 1/2 Tablet(s) PO Q6 as needed 08/15/2018 09/11/2018 Inactive oxycodone 20 mg tablet RxNorm: 9832413 1/2 Tablet(s) PO Q6 as needed 07/16/2018 08/14/2018 Inactive oxycodone 20 mg tablet RxNorm: 8038866 1/2 Tablet(s) PO Q6 as needed 06/14/2018 07/13/2018 Inactive gabapentin 100 mg capsule RxNorm: 500661 TAKE ONE CAPSULE BY MOUTH IN THE EVENING AT 5PM 05/30/2018 09/23/2018 Inactive oxycodone 20 mg tablet RxNorm: 3558015 1/2 Tablet(s) PO Q6 as needed 05/15/2018 06/13/2018 Inactive oxycodone 20 mg tablet RxNorm: 1415508 1/2 Tablet(s) PO Q6 as needed 04/12/2018 05/11/2018 Inactive oxycodone 20 mg tablet RxNorm: 7714281 1/2 Tablet(s) PO Q6 as needed 03/11/2018 04/09/2018 Inactive levothyroxine 200 mcg tablet RxNorm: 952843 1 Tablet(s) PO daily 02/21/2018 02/15/2019 Active Cipro 500 mg tablet RxNorm: 645948 1 Tablet(s) PO BID 201702/20/2018 Inactive levothyroxine 200 mcg tablet RxNorm: 048303 1 Tablet(s) PO daily 02/21/2018 02/20/2018 Inactive Cipro 500 mg tablet RxNorm: 722935 1 Tablet(s) PO BID 201703/02/2018 Inactive oxycodone 20 mg tablet RxNorm: 7469344 1/2 Tablet(s) PO Q6 as needed 02/12/2018 03/10/2018 Inactive oxycodone 20 mg tablet RxNorm: 1195156 1/2 Tablet(s) PO Q6 as needed 01/16/2018 02/11/2018 Inactive gabapentin 100 mg capsule RxNorm: 961373 TAKE ONE CAPSULE BY MOUTH IN THE EVENING AT 5PM 01/15/2018 05/29/2018 Inactive bisoprolol 5 mg-hydrochlorothiazide 6.25 mg tablet RxNorm: 189406 TAKE ONE TABLET BY MOUTH DAILY 01/01/2018 12/26/2018 Active oxycodone 20 mg tablet RxNorm: 7253472 1/2 Tablet(s) PO Q6 as needed 12/20/2017 01/14/2018 Inactive oxycodone 20 mg tablet RxNorm: 7440085 1/2 Tablet(s) PO Q6 as needed 11/20/2017 12/19/2017 Inactive Victoza 2-Dino 0.6 mg/0.1 mL (18 mg/3 mL) subcutaneous pen injector RxNorm: 999953 1.2 Milligram(s) SQ daily 11/08/201712/07 Inactive oxycodone 20 mg tablet RxNorm: 1419557 1/2 Tablet(s) PO Q6 as needed 10/19/2017 11/17/2017 Inactive gabapentin 100 mg capsule RxNorm: 834119 1 Capsule(s) PO QPM at 5 pm 09/20/2017 01/14/2018 Inactive Lasix 20 mg tablet RxNorm: 527507 1 Tablet(s) QAM at 5pm 12/201703/18/2018 Inactive oxycodone 20 mg tablet RxNorm: 1452602 1/2 Tablet(s) PO Q6 as needed 09/18/2017 10/17/2017 Inactive oxycodone 20 mg tablet RxNorm: 6334966 1/2 Tablet(s) PO Q6 as needed 08/14/2017 09/12/2017 Inactive ketoconazole 2 % topical cream RxNorm: 691624 1 Gram(s) TOP BID to affected area until healed 08/03/2017 No Stop Date Active oxycodone 20 mg tablet RxNorm: 1963027 1/2 Tablet(s) PO Q6 as needed 07/17/2017 08/13/2017 Inactive pen needle, diabetic 31 gauge x 5/16" RxNorm: 1 Unit Dose Miscellaneous daily 06/25/2017 03/21/2018 Inactive daily use with victoza Bactrim DS 800 mg-160 mg tablet RxNorm: 467917 1 Tablet(s) PO BID Dr Norwood 06/25/2017 07/04/2017 Inactive Victoza 2-Dino 0.6 mg/0.1 mL (18 mg/3 mL) subcutaneous pen injector RxNorm: 388755 0.6 Milligram(s) SQ daily 06/25/201707/24 Inactive doxycycline hyclate 100 mg tablet RxNorm: 707273 1 Tablet(s) PO BID Dr Norwood 06/21/2017 06/30/2017 Inactive oxycodone 20 mg tablet RxNorm: 6603764 1/2 Tablet(s) PO Q6 as needed 06/14/2017 07/13/2017 Inactive clindamycin 150 mg capsule RxNorm: 577397 1 Capsule(s) PO Q8 06/16/2017 Inactive levothyroxine 175 mcg tablet RxNorm: 021964 TAKE ONE TABLET BY MOUTH DAILY 06/04/2017 09/01/2017 Inactive levothyroxine 175 mcg tablet RxNorm: 142085 TAKE ONE TABLET BY MOUTH DAILY 06/04/2017 11/30/2017 Inactive bisoprolol 5 mg-hydrochlorothiazide 6.25 mg tablet RxNorm: 358081 TAKE ONE TABLET BY MOUTH DAILY 05/24/2017 11/19/2017 Inactive oxycodone 20 mg tablet RxNorm: 8223765 1/2 Tablet(s) PO Q6 as needed 05/14/2017 06/12/2017 Inactive potassium chloride ER 10 mEq capsule,extended release RxNorm: 157634 TAKE ONE CAPSULE BY MOUTH DAILY NEEDED FOR 5 DAYS THEN NEEDED WITH LASIX 04/17/2017 10/13/2017 Inactive Lasix 20 mg tablet RxNorm: 939663 TAKE ONE TABLET BY MOUTH DAILY NEEDED 04/17/2017 09/19/2017 Inactive oxycodone 20 mg tablet RxNorm: 7431889 1/2 Tablet(s) PO Q6 as needed 04/12/2017 05/11/2017 Inactive Colcrys 0.6 mg tablet RxNorm: 524119 2 tabs at onset then may repeat 1 tab in 1 hours if needed- Tablet(s) PO 04/09/2017 No Stop Date Active then take daily until gout resolved Bactrim DS 800 mg-160 mg tablet RxNorm: 695339 1 Tablet(s) PO BID 04/09/2017 04/08/2017 Inactive dc levaquin Bactrim DS 800 mg-160 mg tablet RxNorm: 061964 1 Tablet(s) PO BID 04/09/2017 04/15/2017 Inactive dc levaquin Levaquin 500 mg tablet RxNorm: 500108 1 Tablet(s) PO daily 04/02/2017 Inactive Levaquin 500 mg tablet RxNorm: 451451 1 Tablet(s) PO daily 06/06/2017 Inactive indomethacin 25 mg capsule RxNorm: 207920 1 Capsule(s) PO TID PRN 03/22/2017 03/22/2017 Inactive Lasix 20 mg tablet RxNorm: 994133 1 Tablet(s) PO QDAY PRN 02/201704/16/2017 Inactive daily x 5 days then as needed Levaquin 500 mg tablet RxNorm: 273535 1 Tablet(s) PO daily 02/201703/31/2017 Inactive potassium chloride ER 10 mEq capsule,extended release RxNorm: 477074 1 Capsule(s) PO QDAY PRN 03/22/2017 04/16/2017 Inactive daily x 5 days then as needed with lasix oxycodone 20 mg tablet RxNorm: 5858580 1/2 Tablet(s) PO Q6 as needed 03/08/2017 04/06/2017 Inactive bisoprolol 5 mg-hydrochlorothiazide 6.25 mg tablet RxNorm: 141153 TAKE ONE TABLET BY MOUTH DAILY 02/14/2017 05/14/2017 Inactive oxycodone 20 mg tablet RxNorm: 5015608 1/2 Tablet(s) PO Q6 as needed 02/08/2017 03/07/2017 Inactive oxycodone 20 mg tablet RxNorm: 4666018 1/2 Tablet(s) PO Q6 as needed 01/08/2017 02/06/2017 Inactive levothyroxine 175 mcg tablet RxNorm: 648032 1 Tablet(s) PO daily 12/06/2016 06/03/2017 Inactive [SAVINGS FOR NON-COVERED DRUGS -- BIN:[id number], PCN: ASPROD1, Group: XXXXX, ID# XXXXXXX, Questions: . THIS IS NOT INSURANCE.] oxycodone 20 mg tablet RxNorm: 6420462 1/2 Tablet(s) PO Q6 as needed 12/04/2016 01/02/2017 Inactive oxycodone 20 mg tablet RxNorm: 0505518 1/2 Tablet(s) PO Q6 as needed 11/09/2016 12/03/2016 Inactive bisoprolol 5 mg-hydrochlorothiazide 6.25 mg tablet RxNorm: 935024 TAKE ONE TABLET BY MOUTH DAILY 11/08/2016 02/05/2017 Inactive oxycodone 20 mg tablet RxNorm: 1589306 1/2 Tablet(s) PO Q6 as needed 10/05/2016 11/03/2016 Inactive oxycodone 20 mg tablet RxNorm: 8733278 1/2 Tablet(s) PO Q6 as needed 09/06/2016 10/04/2016 Inactive oxycodone 20 mg tablet RxNorm: 3623213 1/2 Tablet(s) PO Q6 as needed 08/07/2016 09/05/2016 Inactive oxycodone 20 mg tablet RxNorm: 4741355 1/2 Tablet(s) PO Q6 as needed 07/04/2016 08/06/2016 Inactive oxycodone 20 mg tablet RxNorm: 9616734 1/2 Tablet(s) PO Q6 as needed 05/29/2016 07/03/2016 Inactive levothyroxine 150 mcg tablet RxNorm: 990599 1 Tablet(s) PO daily 04/10/2016 04/09/2016 Inactive [SAVINGS FOR NON-COVERED DRUGS -- BIN:[id number], PCN: ASPROD1, Group: XXXXX, ID# XXXXXXX, Questions: . THIS IS NOT INSURANCE.] oxycodone 20 mg tablet RxNorm: 3212933 1/2 Tablet(s) PO Q6 as needed 04/10/2016 05/28/2016 Inactive levothyroxine 150 mcg tablet RxNorm: 494717 1 Tablet(s) PO daily 04/10/2016 10/06/2016 Inactive [SAVINGS FOR NON-COVERED DRUGS -- BIN:[id number], PCN: ASPROD1, Group: XXXXX, ID# XXXXXXX, Questions: . THIS IS NOT INSURANCE.] bisoprolol 5 mg-hydrochlorothiazide 6.25 mg tablet RxNorm: 441891 1 Tablet(s) PO daily 02/16/2016 12/31/2017 Inactive oxycodone 20 mg tablet RxNorm: 6324887 1/2 Tablet(s) PO Q6 as needed 02/16/2016 04/09/2016 Inactive oxycodone 20 mg tablet RxNorm: 7718361 1/2 Tablet(s) PO Q6 as needed 01/04/2016 02/15/2016 Inactive bisoprolol 5 mg-hydrochlorothiazide 6.25 mg tablet RxNorm: 689713 1 Tablet(s) PO daily 11/19/2015 01/17/2016 Inactive bisoprolol 5 mg-hydrochlorothiazide 6.25 mg tablet RxNorm: 524725 1 Tablet(s) PO daily 11/04/2015 11/18/2015 Inactive oxycodone 20 mg tablet RxNorm: 7194759 1/2 Tablet(s) PO Q6 as needed 10/27/2015 01/03/2016 Inactive levothyroxine 150 mcg tablet RxNorm: 135396 1 Tablet(s) PO daily 08/26/2015 02/21/2016 Inactive [SAVINGS FOR NON-COVERED DRUGS -- BIN:[id number], PCN: ASPROD1, Group: XXXXX, ID# XXXXXXX, Questions: . THIS IS NOT INSURANCE.] bisoprolol 5 mg-hydrochlorothiazide 6.25 mg tablet RxNorm: 071405 1 Tablet(s) PO daily 08/26/2015 10/24/2015 Inactive oxycodone 10 mg tablet RxNorm: 4253090 1 Tablet(s) PO Q6 as needed 05/06/2015 10/26/2015 Inactive levothyroxine 150 mcg tablet RxNorm: 529937 1 Tablet(s) PO daily 02/05/2015 08/03/2015 Inactive [SAVINGS FOR NON-COVERED DRUGS -- BIN:[id number], PCN: ASPROD1, Group: XXXXX, ID# XXXXXXX, Questions: . THIS IS NOT INSURANCE.] Vitamin D2 50,000 unit capsule RxNorm: 264789 1 Capsule(s) PO weekly 02/05/2015 05/05/2015 Inactive [SAVINGS FOR NON-COVERED DRUGS -- BIN:713870, PCN: ASPROD1, Group: XXXXX, ID# XXXXXXX, Questions: . THIS IS NOT INSURANCE.] Vitamin D2 50,000 unit capsule RxNorm: 341507 1 Capsule(s) PO weekly 02/05/2015 02/04/2015 Inactive bisoprolol 5 mg-hydrochlorothiazide 6.25 mg tablet RxNorm: 735659 1 Tablet(s) PO daily 01/26/2015 02/24/2015 Inactive levothyroxine 200 mcg tablet RxNorm: 906630 1 Tablet(s) PO daily 01/26/2015 01/25/2015 Inactive levothyroxine 200 mcg tablet RxNorm: 607419 1 Tablet(s) PO every other day 01/26/2015 02/04/2015 Inactive [SAVINGS FOR NON-COVERED DRUGS -- BIN:[id number], PCN: ASPROD1, Group: XXXXX, ID# XXXXXXX, Questions: . THIS IS NOT INSURANCE.] aspirin 81 mg chewable tablet RxNorm: 722961 1 Tablet(s) PO daily No Start Date Active Plavix 75 mg tablet RxNorm: 143633 1 Tablet(s) PO daily manage by Dr Baig No Start Date Active simvastatin 40 mg tablet RxNorm: 197620 1 Tablet(s) PO QHS managed by Dr Baig No Start Date Active Colcrys 0.6 mg tablet RxNorm: 443474 2 tabs at onset then may repeat 1 tab in 1 hours if needed- Tablet(s) PO No Start Date 04/08/2017 Inactive then take daily until gout resolved aspirin 325 mg tablet RxNorm: 889394 1 Tablet(s) PO daily No Start Date 05/03/2016 Inactive levothyroxine 75 mcg tablet RxNorm: 788790 1 Tablet(s) PO every other day No Start Date 02/04/2015 Inactive takes qod with 200mcg oxycodone 10 mg tablet RxNorm: 3162284 1 Tablet(s) PO Q6 as needed No Start Date 05/05/2015 Inactive ketoconazole 2 % topical cream RxNorm: 657622 1 Gram(s) TOP BID to affected area [...] with hyperglycemia ICD-10: E11.65 ICD-9: 250.00 08/29/2018 Generalized abdominal pain ICD-10: R10.84 ICD-9: 789.07 02/20/2018 Gross hematuria ICD-10: R31.0 ICD-9: 599.71 02/20/2018 Unspecified jaundice ICD-10: R17 ICD-9: 782.4 02/20/2018 Encounter for screening for malignant neoplasm [...] factor deficiency ICD-10: D51.0 ICD-9: 281.0 05/04/2016 CHRONIC PAIN SYNDROME ICD-9: 338.4 2014 Vitamin B12 deficiency ICD-9: 266.2 01/26 ESSENTIAL HYPERTENSION ICD-9: 401.9 01/26 HYPOTHYROIDISM ICD-9: 244.9 01/26/2015 GOUT ICD-9: 274.9 01/26/2015 ANEMIA ICD-9: 285.9 01/26/2015 Chronic renal insufficiency, stage III (moderate) ICD-9: 585.3 01/26/2015 Reason For Visit Reason For Visit Effective [...] Code Item Item Code Result Date %Hba1C Ltl863 % HbA1c 60719-5 6.4 % 08/30/2018 %Hba1C Udy133 Gluc Ave 137 mg/dL 08/30/2018 Culture Urine [id number] URINE CULTURE SEE NOTES 02/22/2018 Urine Culture [...] 24.5 pg 02/20/2018 Cbc With Differential Ord2 [place]ander% 8.9 % 02/20/2018 Cbc With Differential Ord2 [...] 0.81 K/ul 02/20/2018 Cbc With Differential Ord2 [place] ABS# 0.7 K/ul 02/20/2018 Cbc With Differential Ord2 Eos ABS# 0.4 K/ul 02/20/2018 Cbc With Differential Ord2 Baso ABS# 0.0 K/ul 02/20/2018 %Hba1C Zgz397 % HbA1c 57840-8 7.7 % 02/20/2018 %Hba1C Cmw636 Gluc Ave 174 mg/dL 02/20/2018 Lipase Gyx685 LIPASE 17 U/L 02/20/2018 Microalbumin Vmr879 MicroAlb 6.5 mg/dL 02/20/2018 Amylase Ord34 AMYLASE 15 U/L 02/20/2018 Free T4 Als797 FREE T4 0.61 ng/dL 02/20/2018 Lipid Ord30 CHOL 203 mg/dL 02/20/2018 Lipid Ord30 HDL 7.0 mg/dl 02/20/2018 Lipid Ord30 TRIG 271 mg/dL 02/20/2018 Lipid Ord30 LDL 142 mg/dL 02/20/2018 Lipid Ord30 C/HDL 29.0 Ratio 02/20/2018 Comp Metabolic Dar352 NA 134 mEq/L 02/20/2018 Comp Metabolic Qnx020 K 3.6 mEq/L 02/20/2018 Comp Metabolic Ind625 CL 96 mEq/L 02/20/2018 Comp Metabolic Qhn815 CO2 29.0 mEq/L 02/20/2018 Comp Metabolic Lwn145 ANION GAP 13 02/20/2018 Comp Metabolic Ian546 GLUCOSE 165 mg/dL 02/20/2018 Comp Metabolic Pkd667 Creat 1.2 mg/dL 02/20/2018 Comp Metabolic Shn726 eGFR 63 ml/min/1.73m2 02/20/2018 Comp Metabolic Klf996 BUN 14 mg/dL 02/20/2018 Comp Metabolic Dgm295 B/C Ratio 11.6 Ratio 02/20/2018 Comp Metabolic Fpp971 CALCIUM 8.5 mg/dL 02/20/2018 Comp Metabolic Rwu020 ALK PHOS 633 U/L 02/20/2018 Comp Metabolic Dlc409 AST(SGOT) 112 U/L 02/20/2018 Comp Metabolic Tjf794 ALT(SGPT) 148 U/L 02/20/2018 Comp Metabolic Bmg750 BILI T 6.8 mg/dL 02/20/2018 Comp Metabolic Rqm216 ALBUMIN 3.3 g/dL 02/20/2018 Comp Metabolic Qkh555 TPRO 5.9 g/dL 02/20/2018 Comp Metabolic Cae744 GLOB 2.6 g/dL 02/20/2018 Comp Metabolic Rzs200 A/G Ratio 1.3 Ratio 02/20/2018 Comp Metabolic Vxh869 Osmo 272 mOsmo 02/20/2018 Total Psa Ord10 [...] Metabolic Ord15 CALCIUM 9.2 mg/dL 11/09/2017 %Hba1C Taj621 % HbA1c 55153-3 8.0 % 11/09/2017 %Hba1C Wdq320 Gluc Ave 183 mg/dL 11/09/2017 Metabolic Ord15 [...] Ord15 CALCIUM 8.7 mg/dL 06/25/2017 Culture Wound [id number] WOUND CULTURE SEE NOTES 04/09/2017 Culture Wound [id number] Continued Results 04/09/2017 Amylase Ord34 AMYLASE 19 U/L 03/22/2017 Uric Acid Ord77 Uric A 8.8 mg/dL 03/22/2017 Cbc With Differential Ord2 WBC 16.93 K/ul 03/22/2017 Cbc With Differential Ord2 RBC 4.30 M/ul 03/22/2017 Cbc With Differential Ord2 HGB 12.0 g/dl 03/22/2017 Cbc With Differential Ord2 Neut% 82.3 % 03/22/2017 Cbc With Differential Ord2 HCT 38.3 % 03/22/2017 Cbc With Differential Ord2 MCV 89.1 fl 03/22/2017 Cbc With Differential Ord2 Lymph% 8.0 % 03/22/2017 Cbc With Differential Ord2 MCH 27.9 pg 03/22/2017 Cbc With Differential Ord2 [place]ander% 8.3 % 03/22/2017 Cbc With Differential Ord2 MCHC 31.3 pg 03/22/2017 Cbc With Differential Ord2 Eos% 1.3 % 03/22/2017 Cbc With Differential Ord2 Baso% 0.1 % 03/22/2017 Cbc With Differential Ord2 PLT 353 K/ul 03/22/2017 Cbc With Differential Ord2 RDW 17.5 % 03/22/2017 Cbc With Differential Ord2 Neut ABS# 13.95 K/ul 03/22/2017 Cbc With Differential Ord2 Lymph ABS# 1.35 K/ul 03/22/2017 Cbc With Differential Ord2 [place] ABS# 1.4 K/ul 03/22/2017 Cbc With Differential Ord2 Eos ABS# 0.2 K/ul 03/22/2017 Cbc With Differential Ord2 Baso ABS# 0.0 K/ul 03/22/2017 Comp Metabolic Ori420 NA 134 mEq/L 03/22/2017 Comp Metabolic Yzr232 K 4.5 mEq/L 03/22/2017 Comp Metabolic Nyo472 CL 93 mEq/L 03/22/2017 Comp Metabolic Xsz406 CO2 31.0 mEq/L 03/22/2017 Comp Metabolic Tdh063 ANION GAP 15 03/22/2017 Comp Metabolic Xyo708 GLUCOSE 198 mg/dL 03/22/2017 Comp Metabolic Wzi718 Creat 1.5 mg/dL 03/22/2017 Comp Metabolic Cfe618 eGFR 50 ml/min/1.73m2 03/22/2017 Comp Metabolic Wpq162 BUN 32 mg/dL 03/22/2017 Comp Metabolic Dju648 B/C Ratio 21.6 Ratio 03/22/2017 Comp Metabolic Qcl402 CALCIUM 8.4 mg/dL 03/22/2017 Comp Metabolic Ecn120 ALK PHOS 245 U/L 03/22/2017 Comp Metabolic Vnc063 AST(SGOT) 18 U/L 03/22/2017 Comp Metabolic Npf832 ALT(SGPT) 17 U/L 03/22/2017 Comp Metabolic Izq076 BILI T 0.8 mg/dL 03/22/2017 Comp Metabolic Qqi661 ALBUMIN 2.9 g/dL 03/22/2017 Comp Metabolic Bsm432 TPRO 6.3 g/dL 03/22/2017 Comp Metabolic Gth291 GLOB 3.4 g/dL 03/22/2017 Comp Metabolic Wbx650 A/G Ratio 0.8 Ratio 03/22/2017 Comp Metabolic Cjk585 Osmo 281 mOsmo 03/22/2017 Lipase Chb317 LIPASE 12 U/L 03/22/2017 Comp Metabolic Amx366 NA 142 mEq/L 03/09/2017 Comp Metabolic Stm122 K 4.8 mEq/L 03/09/2017 Comp Metabolic Xxi960 CL 103 mEq/L 03/09/2017 Comp Metabolic Nmk491 CO2 30.0 mEq/L 03/09/2017 Comp Metabolic Fok195 ANION GAP 14 03/09/2017 Comp Metabolic Mke584 GLUCOSE 152 mg/dL 03/09/2017 Comp Metabolic Wpg587 Creat 1.3 mg/dL 03/09/2017 Comp Metabolic Fmt930 eGFR 56 ml/min/1.73m2 03/09/2017 Comp Metabolic Fiz418 BUN 23 mg/dL 03/09/2017 Comp Metabolic Wba158 B/C Ratio 17.3 Ratio 03/09/2017 Comp Metabolic Vuj652 CALCIUM 8.5 mg/dL 03/09/2017 Comp Metabolic Ibh137 ALK PHOS 97 U/L 03/09/2017 Comp Metabolic Zdi970 AST(SGOT) 10 U/L 03/09/2017 Comp Metabolic Vuu513 ALT(SGPT) 6 U/L 03/09/2017 Comp Metabolic Uop054 BILI T 0.4 mg/dL 03/09/2017 Comp Metabolic Adf001 ALBUMIN 3.4 g/dL 03/09/2017 Comp Metabolic Wgl205 TPRO 6.2 g/dL 03/09/2017 Comp Metabolic Neq479 GLOB 2.8 g/dL 03/09/2017 Comp Metabolic Syi014 A/G Ratio 1.2 Ratio 03/09/2017 Comp Metabolic Ces476 Osmo 290 mOsmo 03/09/2017 Free T4 Buj323 FREE T4 0.86 ng/dL 03/08/2017 Cbc With Differential Ord2 WBC 9.75 K/ul 03/08/2017 Cbc With Differential Ord2 RBC 4.47 M/ul 03/08/2017 Cbc With Differential Ord2 HGB 12.6 g/dl 03/08/2017 Cbc With Differential Ord2 HCT 41.9 % 03/08/2017 Cbc With Differential Ord2 Neut% 69.3 % 03/08/2017 Cbc With Differential Ord2 Lymph% 16.7 % 03/08/2017 Cbc With Differential Ord2 MCV 93.7 fl 03/08/2017 Cbc With Differential Ord2 MCH 28.2 pg 03/08/2017 Cbc With Differential Ord2 [place]% 8.7 % 03/08/2017 Cbc With Differential Ord2 MCHC 30.1 pg 03/08/2017 Cbc With Differential Ord2 Eos% 5.1 % 03/08/2017 Cbc With Differential Ord2 Baso% 0.2 % 03/08/2017 Cbc With Differential Ord2 PLT 268 K/ul 03/08/2017 Cbc With Differential Ord2 RDW 16.8 % 03/08/2017 Cbc With Differential Ord2 Neut ABS# 6.75 K/ul 03/08/2017 Cbc With Differential Ord2 Lymph ABS# 1.63 K/ul 03/08/2017 Cbc With Differential Ord2 [place] ABS# 0.9 K/ul 03/08/2017 Cbc With Differential Ord2 Eos ABS# 0.5 K/ul 03/08/2017 Cbc With Differential Ord2 Baso ABS# 0.0 K/ul 03/08/2017 Tsh Ord6 hTSH II 4.52 uIU/mL 03/08/2017 %Hba1C Mju865 % HbA1c 00836-0 8.5 % 03/08/2017 %Hba1C Tft562 Gluc Ave 197 mg/dL 03/08/2017 %Hba1C Jym304 % HbA1c 16927-5 9.8 % 12/04/2016 %Hba1C Whg227 Gluc Ave 235 mg/dL 12/04/2016 Tsh Ord6 hTSH II 10.65 uIU/mL 11/30/2016 Comp Metabolic Xod845 NA 134 mEq/L 11/30/2016 Comp Metabolic Iaa701 K 5.0 mEq/L 11/30/2016 Comp Metabolic Snc001 CL 95 mEq/L 11/30/2016 Comp Metabolic Xww333 CO2 34.0 mEq/L 11/30/2016 Comp Metabolic Adx476 ANION GAP 10 11/30/2016 Comp Metabolic Wsi333 GLUCOSE 226 mg/dL 11/30/2016 Comp Metabolic Rtp154 Creat 1.3 mg/dL 11/30/2016 Comp Metabolic Pty503 eGFR 56 ml/min/1.73m2 11/30/2016 Comp Metabolic Nfr604 BUN 21 mg/dL 11/30/2016 Comp Metabolic Euo890 B/C Ratio 15.7 Ratio 11/30/2016 Comp Metabolic Ncz736 CALCIUM 8.9 mg/dL 11/30/2016 Comp Metabolic Hve797 ALK PHOS 112 U/L 11/30/2016 Comp Metabolic Kgk737 AST(SGOT) 9 U/L 11/30/2016 Comp Metabolic Zbs336 ALT(SGPT) 7 U/L 11/30/2016 Comp Metabolic Jzh702 BILI T 0.6 mg/dL 11/30/2016 Comp Metabolic Diw612 ALBUMIN 3.6 g/dL 11/30/2016 Comp Metabolic Hop048 TPRO 6.4 g/dL 11/30/2016 Comp Metabolic Hcg376 GLOB 2.9 g/dL 11/30/2016 Comp Metabolic Ket050 A/G Ratio 1.2 Ratio 11/30/2016 Comp Metabolic Lfs828 Osmo 278 mOsmo 11/30/2016 Lipid Ord30 CHOL [...] 76.6 % 11/30/2016 Cbc With Differential Ord2 MCV 99.1 fl 11/30/2016 Cbc With Differential Ord2 Lymph% 13.0 % 11/30/2016 Cbc With Differential Ord2 [place]% 7.9 % 11/30/2016 Cbc With Differential Ord2 MCH 30.6 pg 11/30/2016 Cbc With Differential Ord2 Eos% 2.4 % 11/30/2016 Cbc With Differential Ord2 MCHC 30.8 pg 11/30/2016 Cbc With Differential Ord2 PLT 243 K/ul 11/30/2016 Cbc With Differential Ord2 Baso% 0.1 % 11/30/2016 Cbc With Differential Ord2 Neut ABS# 7.88 K/ul 11/30/2016 Cbc With Differential Ord2 RDW 16.1 % 11/30/2016 Cbc With Differential Ord2 Lymph ABS# 1.34 K/ul 11/30/2016 Cbc With Differential Ord2 [place] ABS# 0.8 K/ul 11/30/2016 Cbc With Differential Ord2 Eos ABS# 0.3 K/ul 11/30/2016 Cbc With Differential Ord2 Baso ABS# 0.0 K/ul 11/30/2016 Free T4 Mxx410 FREE T4 0.89 ng/dL 11/30/2016 Review of [...] leg 10/18/2018 None Full Exam - General 1995 Integument inspection of skin Location: right leg 10/18/2018 None Full Exam - General 1994 Integument inspection of skin Rash/Lesions: ulceration 10/18/2018 None Full Exam - General 1995 Integument inspection of skin Pigmentation: erythematous 10/18/2018 [...] 10/04/2018 None Full Exam - General 1994 Lymphatic neck nodes Overall: anterior cervical chain benign 10/04/2018 None Full Exam - General 1994 Lymphatic [...] normal 11/08/2017 None Full Exam - General 1994 [...] Codes Date ADMIN PNEUMOCOCCAL VACCINE SNOMED CT: 27057125 CPT-4: G0009 02/05/2018 Pneumococcal Polysaccharide Vaccine, 23-Valent, Ad CPT-4: 66877 02/05/2018 PPPS, SUBSEQ VISIT CPT -4: G0439 11/30/2017 URINALYSIS NONAUTO W/O SCOPE CPT-4: 68383 03/22/2017 URINALYSIS NONAUTO W/O SCOPE CPT-4: 43880 03/21/2017 PPPS, SUBSEQ VISIT CPT -4: G0439 11/30/2016 PNEUMOCOCCAL VACC 13 JAVIER IM Formatting Model/CDA Sections, Assigned to SNOMED CT: [id number] CPT-4: [id number] 11/30/2016 ADMIN PNEUMOCOCCAL VACCINE SNOMED CT: 99689350 CPT-4: G0009 11/30/2016 Vital Signs Date Vital 10/18/2018 Blood Pressure 1: 118/70 Code : 8480-6 BMI: 39.0 Code : 70294-9 Heart Rate 1 : 86 bpm Height: 5'10" SpO2: 95% Weight: 272 lbs 10/14/2018 Blood Pressure 1: 120/56 Code : 8480-6 Heart Rate 1: 67 bpm Height: 5'10" SpO2: 92% 10/10/2018 Blood Pressure 1: 126/70 Code : 8480-6 BMI: 34.7 Code : 16317-3 Heart Rate 1 : 80 bpm Height: 5'10" SpO2: 96% Temperature: 37.1 (C) / 98.7 (F) Weight: 242 lbs 10/04/2018 Blood Pressure 1: 12070 Code : 8480-6 Height: 5'10" SpO2: 96% 08/29/2018 Blood Pressure 1: 104/60 Code : 8480-6 BMI: 34.6 Code : 32660-6 Heart Rate 1 : 68 bpm Height: 5'10" SpO2: 98% Weight: 241 lbs 02/25/2018 Blood Pressure 1: 12070 Code : 8480-6 BMI: 37.0 Code : 08164-0 Heart Rate 1 : 51 bpm Height: 5'10" SpO2: 97% Weight: 258 lbs 02/20/2018 Blood Pressure 1: 12470 Code : 8480-6 BMI: 38.0 Code : 82982-1 Heart Rate 1 : 60 bpm Height: 5'10" SpO2: 96% Weight: 265 lbs 02/05/2018 Blood Pressure 1: 116 Code : 8480-6 BMI: 38.0 Code : 48173-6 Heart Rate 1 : 63 bpm Height: 5'10" SpO2: 98% Weight: 265 lbs 11/30/2017 Blood Pressure 1: 132/60 Code : 8480-6 BMI: 37.0 Code : 91896-9 Heart Rate 1 : 100 bpm Height: 5'10 " SpO2: 96% Waist Measure (cm): 122 cm Weight: 258 lbs 11/08/2017 Blood Pressure 1: 126/64 Code : 8480-6 BMI: 37.2 Code : 21657-4 Heart Rate 1 : 92 bpm Height: 5'10" SpO2: 94% Weight: 259 lbs 09/20/2017 Blood Pressure 1: 122/68 Code : 8480-6 BMI: 36.9 Code : 79258-6 Heart Rate 1 : 57 bpm Height: 5'10" SpO2: 96% Weight: 257 lbs 06/25/2017 Blood Pressure 1: 124 Code : 8480-6 BMI: 37.0 Code : 48554-6 Height: 5'10 " Weight: 258 lbs 06/07/2017 Blood Pressure 1: 122/64 Code : 8480-6 BMI: 37.0 Code : 15505-6 Heart Rate 1 : 60 bpm Height: 5'10" SpO2: 94% Temperature: 36.4 (C) / 97.6 (F) Weight: 258 lbs 05/03/2017 Blood Pressure 1: 118/ Code : 8480-6 BMI: 38.2 Code : 63389-5 Heart Rate 1 : 52 bpm Height: 5'10" SpO2: 98% Weight: 266 lbs 04/02/2017 Blood Pressure 1: 11862 Code : 8480-6 BMI: 38.2 Code : 05480-0 Heart Rate 1 : 53 bpm Height: 5'10" SpO2: 93% Weight: 266 lbs 03/26/2017 Blood Pressure 1: 11462 Code : 8480-6 BMI: 38.3 Code : 69483-9 Height: 5'10 " Weight: 267 lbs 03/22/2017 Blood Pressure 1: 12264 Code : 8480-6 BMI: 40.0 Code : 42771-8 Heart Rate 1 : 52 bpm Height: 5'10" SpO2: 94% Weight: 279 lbs 03/08/2017 Blood Pressure 1: 124/70 Code : 8480-6 BMI: 39.4 Code : 38182-7 Heart Rate 1 : 51 bpm Height: 5'10" SpO2: 94% Weight: 274 lbs 8 oz 12/06/2016 Blood Pressure 1: 126/62 Code : 8480-6 BMI: 40.3 Code : 42549-6 Heart Rate 1 : 50 bpm Height: 5'10" SpO2: 94% Weight: 281 lbs 11/30/2016 Blood Pressure 1: 112/62 Code : 8480-6 BMI: 40.3 Code : 04545-6 Heart Rate 1 : 52 bpm Height: 5'10" SpO2: 93% Waist Measure (cm): 135 cm Weight: 281 lbs 11/28/2016 Blood Pressure 1: 132/72 Code : 8480-6 BMI: 40.3 Code : 79458-7 Heart Rate 1 : 50 bpm Height: 5'10" Weight: 281 lbs 05/04/2016 Blood Pressure 1: 128/78 Code : 8480-6 BMI: 38.5 Code : 66544-1 Heart Rate 1 : 74 bpm Height: 5'10" SpO2: 98% Weight: 268 lbs 8 oz 11/04/2015 Blood Pressure 1: 136/60 Code : 8480-6 BMI: 38.0 Code : 56823-7 Heart Rate 1 : 55 bpm Height: 5'10" SpO2: 94% Weight: 265 lbs 07/30/2015 Blood Pressure 1: 128/74 Code : 8480-6 BMI: 38.0 Code : 19114-7 Heart Rate 1 : 47 bpm Height: 5'10" SpO2: 97% Weight: 265 lbs 01/26/2015 Blood Pressure 1: 122/64 Code : 8480-6 BMI: 34.0 Code : 48864-1 Heart Rate 1 : 68 bpm Height: [...] data Encounters Encounter Performer Location Codes Date [id number] EST. PATIENT, LEVEL III Diagnosis: Localized edema[ICD10: R60.0] Diagnosis: Cellulitis of left lower limb[ICD10: L03.116] Diagnosis: Cellulitis of right lower limb[ICD10: L03.115] Kiki Sanchez MD, [facility] CPT-4: 48280 10/18/2018 [id number] EST. PATIENT, LEVEL III Diagnosis: Localized edema[ICD10: R60.0] Diagnosis: Cellulitis of left lower limb[ICD10: L03.116] Diagnosis: Cellulitis of right lower limb[ICD10: L03.115] Diagnosis: Chronic obstructive pulmonary disease, unspecified[ICD10: J44.9] Diagnosis: Weakness[ICD10: R53.1] Kiki Sanchez MD, [facility] CPT-4: 90467 10/14/2018 [id number] EST. PATIENT, LEVEL III Diagnosis: Localized edema[ICD10: R60.0] Diagnosis: Cellulitis of left lower limb[ICD10: L03.116] Diagnosis: Cellulitis of right lower limb[ICD10: L03.115] Kiki Sanchez MD, [facility] CPT-4: 32863 10/10/2018 ([id number] 93085 EST. PATIENT, LEVEL IV Diagnosis: Type 2 diabetes mellitus with foot ulcer[ICD10: E11.621] Diagnosis: Essential (primary) hypertension[ICD10: I10] Diagnosis: Malignant neoplasm of prostate[ICD10: C61] Diagnosis: Chronic obstructive pulmonary disease, unspecified[ICD10: J44.9] Diagnosis: Hypoxemia[ICD10: R09.02] Sarah Sanchez MD, [facility] CPT-4: 05146 10/04/2018 ([id number]) 06335 EST. PATIENT, LEVEL IV Diagnosis: Type 2 diabetes mellitus with hyperglycemia[ICD10: E11.65] Diagnosis: Essential (primary) hypertension[ICD10: I10] Diagnosis: Malignant neoplasm of prostate[ICD10: C61] Sarah Sanchez MD, [facility] CPT-4: 56681 08/29/2018 ([id number]) 02095 EST. PATIENT, LEVEL IV Diagnosis: Malignant neoplasm of prostate[ICD10: C61] Dorene Sanchez MD, [facility] CPT-4: 04784 02/25/2018 54120 EST. PATIENT, LEVEL IV Diagnosis: Generalized abdominal pain[ICD10: R10.84] Diagnosis: Unspecified jaundice[ICD10: R17] Diagnosis: Gross hematuria[ICD10: R31.0] Kiki Sanchez MD, [facility] CPT-4 : 89544 02/20/2018 ([id number]) 71981 EST. PATIENT, LEVEL IV Diagnosis: Type 2 diabetes mellitus with hyperglycemia[ICD10: E11.65] Diagnosis: Essential (primary) hypertension[ICD10: I10] Diagnosis: Chronic kidney disease, stage 3 (moderate)[ICD10: N18.3] Diagnosis: Chronic pain syndrome[ICD10: G89.4] Diagnosis: Other specified hypothyroidism[ICD10: E03.8] Diagnosis: Encounter for screening for malignant neoplasm of prostate[ICD10: Z12.5] Diagnosis: Encounter for immunization[ICD10: Z23] Sarah Sanchez MD, [facility] CPT-4: 55312 02/05/2018 ([id number]) 79608 EST. PATIENT, LEVEL IV Diagnosis: Type 2 diabetes mellitus with hyperglycemia[ICD10: E11.65] Diagnosis: Essential (primary) hypertension[ICD10: I10] Dorene Sanchez MD, [facility] CPT-4: 37466 11/08/2017 ([id number]) 52728 EST. PATIENT, LEVEL IV Diagnosis: Type 2 diabetes mellitus with hyperglycemia[ICD10: E11.65] Diagnosis: Chronic pain syndrome[ICD10: G89.4] Diagnosis: Essential (primary) hypertension[ICD10: I10] Diagnosis: Chronic kidney disease, stage 3 (moderate)[ICD10: N18.3] Diagnosis: Localized edema[ICD10: R60.0] Dorene Sanchez MD, [facility] CPT- 4: 12025 09/20/2017 ([id number]) 29301 EST. PATIENT, LEVEL III Diagnosis: Type 2 diabetes mellitus with hyperglycemia[ICD10: E11.65] Sarah Sanchez MD, [facility] CPT-4: 91252 06/25/2017 ([id number]) 45013 EST. PATIENT, LEVEL III Diagnosis: Cellulitis of left lower limb[ICD10: L03.116] Sarah Sanchez MD, [facility] CPT-4: 67928 06/07/2017 ([id number]) 78836 EST. PATIENT, LEVEL III Diagnosis: Localized edema[ICD10: R60.0] Diagnosis: Type 2 diabetes mellitus with foot ulcer[ICD10: E11.621] Sarah Sanchez MD , [facility] CPT-4: 26722 05/03/2017 ([id number]) 39520 EST. PATIENT, LEVEL III Diagnosis: Cellulitis of left lower limb[ICD10: L03.116] Diagnosis: Localized edema[ICD10: R60.0] Sarah Sanchez MD, [facility] CPT-4: 34615 04/02/2017 ([id number]) Miscellaneous no charge Diagnosis: Localized edema[ICD10: R60.0] Diagnosis: Cellulitis of left lower limb[ICD10: L03.116] Sarah Sanchez MD, [facility] CPT-4: 81242 03/26/2017 ([id number]) 40111 EST. 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 PATIENT, LEVEL IV Diagnosis: Type 2 diabetes mellitus with hyperglycemia[ICD10: E11.65] Diagnosis: Other specified hypothyroidism[ICD10: E03.8] Diagnosis: Essential (primary) hypertension[ICD10: I10] Sarah Sanchez MD, [facility] CPT-4: 24528 03/08/2017 ([id number]) 16116 EST. PATIENT, LEVEL III Diagnosis: Type 2 diabetes mellitus with hyperglycemia[ICD10: E11.65] Diagnosis: Other specified hypothyroidism[ICD10: E03.8] Sarah Sanchez MD, [facility] CPT-4: 12227 12/06/2016 ([id number]) 86372 EST. PATIENT, LEVEL IV Diagnosis: Essential (primary) hypertension[ICD10: I10] Diagnosis: Chronic kidney disease, stage 3 (moderate)[ICD10: N18.3] Dorene Sanchez MD, [facility] CPT-4: 50843 11/28/2016 ([id number]) 69812 EST. PATIENT, LEVEL IV Diagnosis: Essential (primary) hypertension[ICD10: I10] Diagnosis: Chronic pain syndrome[ICD10: G89.4] Diagnosis: Chronic kidney disease, stage 3 (moderate)[ICD10: N18.3] Diagnosis: Vitamin B12 deficiency anemia due to intrinsic factor deficiency[ ICD10: D51.0] Diagnosis: Other specified hypothyroidism[ICD10: E03.8] Dorene Sanchez MD, [facility] CPT-4: 53474 05/04/2016 20246 EST. PATIENT, LEVEL III Diagnosis: Chronic pain syndrome[ICD10: G89.4] Diagnosis: Essential (primary) hypertension[ICD10: I10] Diagnosis: Other specified hypothyroidism[ICD10: E03.8] Kiki Sanchez MD, [facility] CPT-4: 94392 11/04/2015 41694 EST. PATIENT, LEVEL III Diagnosis: Chronic pain syndrome[ICD10: G89.4] Diagnosis: Essential (primary) hypertension[ICD10: I10] Kiki Sanchez MD, [facility] CPT-4: 97171 07/30/2015 ([id number]) OFFICE/OUTPATIENT VISIT NEW Diagnosis: ESSENTIAL HYPERTENSION[ICD9: 401.9] Diagnosis: HYPOTHYROIDISM[ICD9: 244.9] Diagnosis: ANEMIA[ICD9: 285.9] Diagnosis: Vitamin B12 deficiency[ICD9: 266.2] Diagnosis: CHRONIC PAIN SYNDROME[ICD9: 338.4] Diagnosis: Chronic renal insufficiency, stage III (moderate)[ICD9: 585.3] Diagnosis: GOUT[ICD9: 274.9] Dorene Sanchez MD, [facility] CPT-4: 33519 01/26/2015 Plan of Care Planned Activity Notes [...] warmth, discharge. 10/18/2018 Appointment: Kiki Menjivar WPtel[facility] ([facility] 10/18/2018 Patient Education: Patient Medication Summary Completed [...] assist with repositioning due to weakness 10/14/2018 Visit Plan: Edema - pt has [...] leg/feet wounds and to decrease edema. 10/14/2018 Appointment: Kiki Menjivar WPtel: [phone] [facility] (30 min) Complex 10/14/2018 Patient Education: Patient [...] warmth, discharge. 10/10/2018 Appointment: Kiki Menjivar WPtel: [phone] [facility] (30 min) Complex 10/10/2018 Patient Education: Patient Medication Summary Completed 10/10/2018 Visit Plan: DM with peripheral neuropathy-paperwork completed for diabetic shoes and will fax to Dr Bauer HTN-controlled -no changes Vlodukhtn-ZZOC-UTC-prostate cancer with mets- patient qualifies for oxygen-oxygen saturation dropped to 86% on room air during ambulation but increased to 99% on 2L NC at rest-will send orders to [facility] [place] for continue oxygen at 2L per nasal cannula 10/04/2018 Appointment: Sarah Hernandes WPtel: [phone] [phone] (30 min) Complex 10/04/2018 Patient Education: Patient [...] Dr Moreno 08/29/2018 Appointment: Sarah Hernandes WPtel: [phone] [place] (15 min) Moderate 08/29/2018 Patient Education: Patient Medication Summary Completed 08/29/2018 Referral: Edgard Rivera MD WPtel: [address] Moreno. Patient informed. Referral info faxed. Completed 02/27/2018 Visit Plan: Recurrent prostate cancer - I have recommended a referral to Dr. Rivera. We discussed the case at length today- he is not interested in extensive treatment, but if possible to extend his quantity and quality of life, he would like to try. 02/25/2018 Appointment: Dorene Sanchez WPtel: [facility] [address] (15 min) Moderate 02/25/2018 Patient Education: Patient Medication Summary Completed 02/25/2018 Care Plan: Referral Order SNOMED-CT : [id number] Pending 02/25/2018 Visit Plan: Intermittent abdominal pain, jaundice, itching - will check labs and treat as indicated - pt is to go to the ER with any acute change in symptoms or any acute concerns. 02/20/2018 Appointment: Kiki Menjivar WPtel: [address] [place] [address] (30 min) Complex 02/20/2018 Patient Education: Patient [...] of control. 02/05/2018 Appointment: [facility]and[facility]Ptel[facility] [phone] [phone] (30 min) Complex 02/05/2018 Patient Education: Patient [...] care surrogate. 11/30/2017 Appointment: [facility]and[facility]Ptel[facility] [phone] [phone] [facility] - Annual Wellness Visit 11/30/2017 Patient Education: [...] 1.2 11/08/2017 Appointment: [phone] [facility] (15 min) Moderate 11/08/2017 Patient Education: Patient [...] the consequences of over-medication. 09/20/2017 Appointment: Dore[facility] Sanchez [facility]el[phone] [facility] (15 min) Moderate 09/20/2017 Patient Education: Patient [...] glucose control. 06/25/2017 Appointment: Sarah Hernandes WPtel: [phone] [facility] [place] [address] (30 min) Complex 06/25/2017 Patient Education: Patient Medication Summary Completed 06/25/2017 Appointment: Sarah Hernandes WPtel: [phone] [phone] (30 min) Complex 06/22/2017 Visit Plan: Cellulitis - start oral antibiotics as previously directed, return to clinic as previously directed, call for acute change in symptoms, worsening redness, warmth, discharge. 06/07/2017 Appointment: Sarah Hernandes WPtel: [phone] [phone] (30 min) Complex 06/07/2017 Patient Education: Patient Medication Summary Completed 06/07/2017 Patient Education: Obesity Completed 06/07/2017 Appointment: Dorene Sanchez WPtel: [phone] [facility] (15 min) Moderate 05/31/2017 Visit Plan: Edema-significantly improved-no changes Ulcer- left lower leg and foot-seeing Dr Norwood at wound care-appt scheduled with Dr Frausto for vascular evaluation 05/03/2017 Appointment: Sarah Hernandes WPtel[facility] [phone] [phone] [place] (15 min) Moderate 05/03/2017 Patient Education: Patient Medication Summary Completed 05/03/2017 Patient Education: Obesity Completed 05/03/2017 Visit Plan: Jqscsaapfk-mpqkvlgzy-nfmdatl to finish abx-no further treatment indicated Edema-significantly improved-no longer weeping- continue unna boots twice weekly with home health 04/02/2017 Appointment: Sarah Hernandes WPtel: [phone] [phone] [place] (30 min) Complex 04/02/2017 Patient Education: Patient Medication Summary Completed 04/02/2017 Patient Education: Obesity Completed 04/02/2017 Visit Plan: Cellulitis-left leg-continue levaquin Edema- increase lasix/potassium-consult [facility] for unna boots/dressing changes 03/26/2017 Appointment: Sarah Hernandes WPtel: [phone] [place] (15 min) Moderate 03/26/2017 Patient Education: Patient [...] indomethacin-stop aleve 03/22/2017 Appointment: Sarah Hernandes WPtel: [phone] (15 min) Moderate 03/22/2017 Patient Education: Patient [...] of control. 03/08/2017 Appointment: Sarah Hernandes WPtel: [address] [place] [phone] (30 min) Complex 03/08/2017 Patient Education: Patient [...] care surrogate. 11/30/2016 Appointment: Sarah Hernandes WPtel: [phone] [facility] - Annual Wellness Visit 11/30/2016 Patient Education: [...] in fluids. 11/28/2016 Appointment: Dorene Sanchez WPtel: [address] [place], [place] [phone] (15 min) Moderate 11/28/2016 Patient Education: Patient [...] 01/26/2015 Referral: Edgard Rivera MD [address]Ptel: [address] Referral Appointment Requested Instructions Comment . Hypertension [...] Dr Moreno WOUND CARE APPT ANTIBIOTIC TO CASS . Cellulitis - start oral antibiotics as previously directed, return to clinic as previously directed, call for acute change in symptoms, worsening redness, warmth, discharge. victoza 0.6mg daily . Diabetes Mellitus - [...] to clinic on Sunday to monitor . Fxkwrrexiq-iyrsekydm-raqtwra to finish abx-no further treatment indicated Edema-significantly improved-no longer weeping-continue unna boots twice weekly with home health Monitor your blood pressure at home and [...] have labs - may need b12 shots. . DM with peripheral neuropathy-paperwork completed for diabetic shoes and will fax to Dr Bauer HTN-controlled -no changes Rxfmsqxlq-WMNZ-OAF-prostate cancer with mets- patient qualifies for oxygen- oxygen saturation dropped to 86% on room air during ambulation but increased to 99% on 2L NC at rest-will send orders to [facility] [place] for continue oxygen at 2L per nasal cannula PREVNAR 13 TODAY- GIVEN IN OFFICE PREVNAR 23 IN ONE YEAR SHINGLES VACCINATION TO BE ADMINISTERED AT [facility] RECOMMEND OBTAINING MEDICAL POWER OF LINOLEUM FLOOR INSTALLER AND LIVING WILL PATIENT DOES NOT HAVE [...] YEAR SHINGLES VACCINATION TO BE ADMINISTERED AT [facility] RECOMMEND OBTAINING MEDICAL POWER OF LINOLEUM FLOOR INSTALLER AND LIVING WILL PATIENT DOES NOT HAVE [...] YEAR SHINGLES VACCINATION TO BE ADMINISTERED AT [facility] RECOMMEND OBTAINING MEDICAL POWER OF LINOLEUM FLOOR INSTALLER AND LIVING WILL PATIENT DOES NOT HAVE [...] her DOPA paperwork for health care surrogate. WRAP LEGS-THIGHS TO TOES LEVAQUIN 500MG DAILY [...] GFR 50-recommend patient stop the indomethacin-stop aleve INCREASE LASIX AND POTASSIUM TO TWICE DAILY [place] -WOUND [facility] . Cellulitis-left leg-continue levaquin Edema-increase lasix/potassium-consult [facility] for unna boots/dressing changes . Recurrent prostate cancer - I have recommended a referral to Dr. Rivera. We discussed the case at length today- he is not interested in extensive treatment, but if possible to extend his quantity and quality of life, he would like to try. REPEAT HGB A1C, CMP, TSH, FREE T4 [...] repeat labs in 3 months-sooner if needed Take lasix 20mg a day twice a [...] in symptoms, worsening redness, warmth, discharge. . Hypertension - well controlled - continue with current medications, continue with no added salt diet. Pt has been encouraged to exercise daily. The pt has been advised to call the office if there are any acute concerns about change in blood pressure readings at home. Renal failure - continue with increase in fluids. . Medicare Exam - today we discussed [...] DOPA paperwork for health care surrogate. . Diabetes Mellitus - controlled - per [...] and understands the consequences of over-medication. . Chronic Pain Syndrome - pt has chronic pain - has been maintained on current medications, has not sought out other medications, only uses PRN pain medications as directed, and understands the consequences of over- medication. RETURN LATER THIS WEEK FOR FASTING LABS [...] continue with supportive care and medication monitoring. . Hypertension - well controlled - continue [...] months based on previous levels of control. increase the victoza to 1.2 . Hypertension [...] glucose control. increase the victoza to 1.2 Repeat labs at next appointment . Edema-significantly improved-no changes Ulcer-left lower leg and foot-seeing Dr Norwood at wound care-appt scheduled with Dr Frausto for vascular evaluation take lasix 2 in the morning and [...] in symptoms, worsening redness, warmth, discharge. . Edema - pt has been advised [...] to assist with repositioning due to weakness . Edema - pt has been advised [...] leg/feet wounds and to decrease edema. . Hypertension - well controlled - continue [...] based on previous levels of control. . Intermittent abdominal pain, jaundice, itching - will check labs and treat as indicated - pt is to go to the ER with any acute change in symptoms or any acute concerns.
--- OUTSIDE RECORDS SUMMARY | 2018-11-26 11:16 | XMS REPORT | CCD ---
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 Name Role Phone PP Unavailable CCM Unavailable Summary Purpose Interface Exchange Insurance Providers Payer name Policy type / Coverage type Covered green party ID Effective Begin Date Effective End Date WPS Medicare Part B Medicare Part B [id number] Unknown Unknown Family history Father Diagnosis Age At Onset Stroke Unknown Mother Diagnosis Age At Onset Stroke Unknown Diabetes mellitus Type 2 Unknown Social History Social History Element Codes Description Effective Dates Tobacco history SNOMED CT: 534819657 Currently uses smokeless tobacco Chews 05/04/2016 Marital status Unknown 01/26/2015 Number of children Unknown 3 01/26/2015 Employment Unknown Retired 01/26/[address]: 776451401 Never drinks alcohol quit in July 2014 [...] Start Date Stop Date Status Fill Instructions potassium chloride ER 10 mEq tablet,extended release RxNorm: 793303 TAKE ONE TABLET BY MOUTH DAILY 11/04/20182018 Active Probiotic 10 billion cell capsule RxNorm: 7316948 1 Capsule(s) PO BID 10/25/2018 10/24/2018 Inactive Keflex 500 mg capsule RxNorm: 777804 1 Capsule(s) PO QID 201810/31/2018 Inactive Probiotic 10 billion cell capsule RxNorm: 7694016 1 Capsule(s) PO BID 10/25/2018 10/31/2018 Inactive oxycodone 20 mg tablet RxNorm: 8501482 1/2 Tablet(s) PO Q6 as needed 10/14/2018 11/12/2018 Active Lasix 20 mg tablet RxNorm: 868832 1 Tablet(s) PO BID 201804/07/2019 Active Keflex 500 mg capsule RxNorm: 167338 1 Capsule(s) PO TID 201810/19/2018 Inactive potassium chloride ER 10 mEq tablet,extended release RxNorm: 876786 1 Tablet(s) PO daily 10/10/2018 11/03/2018 Inactive albuterol sulfate 2.5 mg/3 mL (0.083 %) solution for nebulization RxNorm: 159032 1 Milliliter(s) INH TID DX J44.9 10/04/2018 01/31/2019 Active gabapentin 100 mg capsule RxNorm: 669392 TAKE ONE CAPSULE BY MOUTH IN THE EVENING AT 5PM 09/24/2018 03/22/2019 Active oxycodone 20 mg tablet RxNorm: 1665839 1/2 Tablet(s) PO Q6 as needed 09/12/2018 10/11/2018 Inactive oxycodone 20 mg tablet RxNorm: 5375971 1/2 Tablet(s) PO Q6 as needed 08/15/2018 09/11/2018 Inactive oxycodone 20 mg tablet RxNorm: 1164688 1/2 Tablet(s) PO Q6 as needed 07/16/2018 08/14/2018 Inactive oxycodone 20 mg tablet RxNorm: 2370381 1/2 Tablet(s) PO Q6 as needed 06/14/2018 07/13/2018 Inactive gabapentin 100 mg capsule RxNorm: 512207 TAKE ONE CAPSULE BY MOUTH IN THE EVENING AT 5PM 05/30/2018 09/23/2018 Inactive oxycodone 20 mg tablet RxNorm: 2156372 1/2 Tablet(s) PO Q6 as needed 05/15/2018 06/13/2018 Inactive oxycodone 20 mg tablet RxNorm: 8845058 1/2 Tablet(s) PO Q6 as needed 04/12/2018 05/11/2018 Inactive oxycodone 20 mg tablet RxNorm: 7247776 1/2 Tablet(s) PO Q6 as needed 03/11/2018 04/09/2018 Inactive levothyroxine 200 mcg tablet RxNorm: 443602 1 Tablet(s) PO daily 02/21/2018 02/15/2019 Active Cipro 500 mg tablet RxNorm: 131258 1 Tablet(s) PO BID 201702/20/2018 Inactive levothyroxine 200 mcg tablet RxNorm: 155714 1 Tablet(s) PO daily 02/21/2018 02/20/2018 Inactive Cipro 500 mg tablet RxNorm: 194402 1 Tablet(s) PO BID 201703/02/2018 Inactive oxycodone 20 mg tablet RxNorm: 2208200 1/2 Tablet(s) PO Q6 as needed 02/12/2018 03/10/2018 Inactive oxycodone 20 mg tablet RxNorm: 2335336 1/2 Tablet(s) PO Q6 as needed 01/16/2018 02/11/2018 Inactive gabapentin 100 mg capsule RxNorm: 991553 TAKE ONE CAPSULE BY MOUTH IN THE EVENING AT 5PM 01/15/2018 05/29/2018 Inactive bisoprolol 5 mg-hydrochlorothiazide 6.25 mg tablet RxNorm: 667752 TAKE ONE TABLET BY MOUTH DAILY 01/01/2018 12/26/2018 Active oxycodone 20 mg tablet RxNorm: 2664511 1/2 Tablet(s) PO Q6 as needed 12/20/2017 01/14/2018 Inactive oxycodone 20 mg tablet RxNorm: 5752470 1/2 Tablet(s) PO Q6 as needed 11/20/2017 12/19/2017 Inactive Victoza 2-Dino 0.6 mg/0.1 mL (18 mg/3 mL) subcutaneous pen injector RxNorm: 577429 1.2 Milligram(s) SQ daily 11/08/201712/07 Inactive oxycodone 20 mg tablet RxNorm: 7736258 1/2 Tablet(s) PO Q6 as needed 10/19/2017 11/17/2017 Inactive gabapentin 100 mg capsule RxNorm: 395417 1 Capsule(s) PO QPM at 5 pm 09/20/2017 01/14/2018 Inactive Lasix 20 mg tablet RxNorm: 685387 1 Tablet(s) QAM at 5pm 12/201703/18/2018 Inactive oxycodone 20 mg tablet RxNorm: 5531052 1/2 Tablet(s) PO Q6 as needed 09/18/2017 10/17/2017 Inactive oxycodone 20 mg tablet RxNorm: 9693104 1/2 Tablet(s) PO Q6 as needed 08/14/2017 09/12/2017 Inactive ketoconazole 2 % topical cream RxNorm: 553962 1 Gram(s) TOP BID to affected area until healed 08/03/2017 No Stop Date Active oxycodone 20 mg tablet RxNorm: 2148343 1/2 Tablet(s) PO Q6 as needed 07/17/2017 08/13/2017 Inactive pen needle, diabetic 31 gauge x 5/16" RxNorm: 1 Unit Dose Miscellaneous daily 06/25/2017 03/21/2018 Inactive daily use with victoza Bactrim DS 800 mg-160 mg tablet RxNorm: 955401 1 Tablet(s) PO BID Dr Norwood 06/25/2017 07/04/2017 Inactive Victoza 2-Dino 0.6 mg/0.1 mL (18 mg/3 mL) subcutaneous pen injector RxNorm: 628330 0.6 Milligram(s) SQ daily 06/25/201707/24 Inactive doxycycline hyclate 100 mg tablet RxNorm: 925659 1 Tablet(s) PO BID Dr Norwood 06/21/2017 06/30/2017 Inactive oxycodone 20 mg tablet RxNorm: 6808406 1/2 Tablet(s) PO Q6 as needed 06/14/2017 07/13/2017 Inactive clindamycin 150 mg capsule RxNorm: 843960 1 Capsule(s) PO Q8 06/16/2017 Inactive levothyroxine 175 mcg tablet RxNorm: 525244 TAKE ONE TABLET BY MOUTH DAILY 06/04/2017 09/01/2017 Inactive levothyroxine 175 mcg tablet RxNorm: 350220 TAKE ONE TABLET BY MOUTH DAILY 06/04/2017 11/30/2017 Inactive bisoprolol 5 mg-hydrochlorothiazide 6.25 mg tablet RxNorm: 629500 TAKE ONE TABLET BY MOUTH DAILY 05/24/2017 11/19/2017 Inactive oxycodone 20 mg tablet RxNorm: 3897117 1/2 Tablet(s) PO Q6 as needed 05/14/2017 06/12/2017 Inactive potassium chloride ER 10 mEq capsule,extended release RxNorm: 064107 TAKE ONE CAPSULE BY MOUTH DAILY NEEDED FOR 5 DAYS THEN NEEDED WITH LASIX 04/17/2017 10/13/2017 Inactive Lasix 20 mg tablet RxNorm: 722789 TAKE ONE TABLET BY MOUTH DAILY NEEDED 04/17/2017 09/19/2017 Inactive oxycodone 20 mg tablet RxNorm: 0456757 1/2 Tablet(s) PO Q6 as needed 04/12/2017 05/11/2017 Inactive Colcrys 0.6 mg tablet RxNorm: 627083 2 tabs at onset then may repeat 1 tab in 1 hours if needed- Tablet(s) PO 04/09/2017 No Stop Date Active then take daily until gout resolved Bactrim DS 800 mg-160 mg tablet RxNorm: 338039 1 Tablet(s) PO BID 04/09/2017 04/08/2017 Inactive dc levaquin Bactrim DS 800 mg-160 mg tablet RxNorm: 899490 1 Tablet(s) PO BID 04/09/2017 04/15/2017 Inactive dc levaquin Levaquin 500 mg tablet RxNorm: 146559 1 Tablet(s) PO daily 04/02/2017 Inactive Levaquin 500 mg tablet RxNorm: 284477 1 Tablet(s) PO daily 06/06/2017 Inactive indomethacin 25 mg capsule RxNorm: 629471 1 Capsule(s) PO TID PRN 03/22/2017 03/22/2017 Inactive Lasix 20 mg tablet RxNorm: 371646 1 Tablet(s) PO QDAY PRN 02/201704/16/2017 Inactive daily x 5 days then as needed Levaquin 500 mg tablet RxNorm: 461120 1 Tablet(s) PO daily 02/201703/31/2017 Inactive potassium chloride ER 10 mEq capsule,extended release RxNorm: 420591 1 Capsule(s) PO QDAY PRN 03/22/2017 04/16/2017 Inactive daily x 5 days then as needed with lasix oxycodone 20 mg tablet RxNorm: 4612986 1/2 Tablet(s) PO Q6 as needed 03/08/2017 04/06/2017 Inactive bisoprolol 5 mg-hydrochlorothiazide 6.25 mg tablet RxNorm: 857689 TAKE ONE TABLET BY MOUTH DAILY 02/14/2017 05/14/2017 Inactive oxycodone 20 mg tablet RxNorm: 5395054 1/2 Tablet(s) PO Q6 as needed 02/08/2017 03/07/2017 Inactive oxycodone 20 mg tablet RxNorm: 4736548 1/2 Tablet(s) PO Q6 as needed 01/08/2017 02/06/2017 Inactive levothyroxine 175 mcg tablet RxNorm: 146375 1 Tablet(s) PO daily 12/06/2016 06/03/2017 Inactive [SAVINGS FOR NON-COVERED DRUGS -- BIN:[id number], PCN: ASPROD1, Group: XXXXX, ID# XXXXXXX, Questions: . THIS IS NOT INSURANCE.] oxycodone 20 mg tablet RxNorm: 5176385 1/2 Tablet(s) PO Q6 as needed 12/04/2016 01/02/2017 Inactive oxycodone 20 mg tablet RxNorm: 4092721 1/2 Tablet(s) PO Q6 as needed 11/09/2016 12/03/2016 Inactive bisoprolol 5 mg-hydrochlorothiazide 6.25 mg tablet RxNorm: 728984 TAKE ONE TABLET BY MOUTH DAILY 11/08/2016 02/05/2017 Inactive oxycodone 20 mg tablet RxNorm: 8545201 1/2 Tablet(s) PO Q6 as needed 10/05/2016 11/03/2016 Inactive oxycodone 20 mg tablet RxNorm: 5324705 1/2 Tablet(s) PO Q6 as needed 09/06/2016 10/04/2016 Inactive oxycodone 20 mg tablet RxNorm: 2754074 1/2 Tablet(s) PO Q6 as needed 08/07/2016 09/05/2016 Inactive oxycodone 20 mg tablet RxNorm: 7587530 1/2 Tablet(s) PO Q6 as needed 07/04/2016 08/06/2016 Inactive oxycodone 20 mg tablet RxNorm: 9537581 1/2 Tablet(s) PO Q6 as needed 05/29/2016 07/03/2016 Inactive levothyroxine 150 mcg tablet RxNorm: 557203 1 Tablet(s) PO daily 04/10/2016 04/09/2016 Inactive [SAVINGS FOR NON-COVERED DRUGS -- BIN:063565, PCN: ASPROD1, Group: XXXXX, ID# XXXXXXX, Questions: . THIS IS NOT INSURANCE.] oxycodone 20 mg tablet RxNorm: 3440244 1/2 Tablet(s) PO Q6 as needed 04/10/2016 05/28/2016 Inactive levothyroxine 150 mcg tablet RxNorm: 587021 1 Tablet(s) PO daily 04/10/2016 10/06/2016 Inactive [SAVINGS FOR NON-COVERED DRUGS -- BIN:225332, PCN: ASPROD1, Group: XXXXX, ID# XXXXXXX, Questions: . THIS IS NOT INSURANCE.] bisoprolol 5 mg-hydrochlorothiazide 6.25 mg tablet RxNorm: 384996 1 Tablet(s) PO daily 02/16/2016 12/31/2017 Inactive oxycodone 20 mg tablet RxNorm: 5279235 1/2 Tablet(s) PO Q6 as needed 02/16/2016 04/09/2016 Inactive oxycodone 20 mg tablet RxNorm: 1712376 1/2 Tablet(s) PO Q6 as needed 01/04/2016 02/15/2016 Inactive bisoprolol 5 mg-hydrochlorothiazide 6.25 mg tablet RxNorm: 028620 1 Tablet(s) PO daily 11/19/2015 01/17/2016 Inactive bisoprolol 5 mg-hydrochlorothiazide 6.25 mg tablet RxNorm: 038036 1 Tablet(s) PO daily 11/04/2015 11/18/2015 Inactive oxycodone 20 mg tablet RxNorm: 2172191 1/2 Tablet(s) PO Q6 as needed 10/27/2015 01/03/2016 Inactive levothyroxine 150 mcg tablet RxNorm: 721150 1 Tablet(s) PO daily 08/26/2015 02/21/2016 Inactive [SAVINGS FOR NON-COVERED DRUGS -- BIN:255953, PCN: ASPROD1, Group: XXXXX, ID# XXXXXXX, Questions: . THIS IS NOT INSURANCE.] bisoprolol 5 mg-hydrochlorothiazide 6.25 mg tablet RxNorm: 873278 1 Tablet(s) PO daily 08/26/2015 10/24/2015 Inactive oxycodone 10 mg tablet RxNorm: 7884414 1 Tablet(s) PO Q6 as needed 05/06/2015 10/26/2015 Inactive levothyroxine 150 mcg tablet RxNorm: 649777 1 Tablet(s) PO daily 02/05/2015 08/03/2015 Inactive [SAVINGS FOR NON-COVERED DRUGS -- BIN:[id number], PCN: ASPROD1, Group: XXXXX, ID# XXXXXXX, Questions: . THIS IS NOT INSURANCE.] Vitamin D2 50,000 unit capsule RxNorm: 038611 1 Capsule(s) PO weekly 02/05/2015 05/05/2015 Inactive [SAVINGS FOR NON-COVERED DRUGS -- BIN:555611, PCN: ASPROD1, Group: XXXXX, ID# XXXXXXX, Questions: . THIS IS NOT INSURANCE.] Vitamin D2 50,000 unit capsule RxNorm: 355563 1 Capsule(s) PO weekly 02/05/2015 02/04/2015 Inactive bisoprolol 5 mg-hydrochlorothiazide 6.25 mg tablet RxNorm: 901847 1 Tablet(s) PO daily 01/26/2015 02/24/2015 Inactive levothyroxine 200 mcg tablet RxNorm: 354458 1 Tablet(s) PO daily 01/26/2015 01/25/2015 Inactive levothyroxine 200 mcg tablet RxNorm: 093404 1 Tablet(s) PO every other day 01/26/2015 02/04/2015 Inactive [SAVINGS FOR NON-COVERED DRUGS -- BIN:480338, PCN: ASPROD1, Group: XXXXX, ID# XXXXXXX, Questions: . THIS IS NOT INSURANCE.] aspirin 81 mg chewable tablet RxNorm: 374406 1 Tablet(s) PO daily No Start Date Active Plavix 75 mg tablet RxNorm: 955472 1 Tablet(s) PO daily manage by Dr Baig No Start Date Active simvastatin 40 mg tablet RxNorm: 907107 1 Tablet(s) PO QHS managed by Dr Baig No Start Date Active Colcrys 0.6 mg tablet RxNorm: 137711 2 tabs at onset then may repeat 1 tab in 1 hours if needed- Tablet(s) PO No Start Date 04/08/2017 Inactive then take daily until gout resolved aspirin 325 mg tablet RxNorm: 273839 1 Tablet(s) PO daily No Start Date 05/03/2016 Inactive levothyroxine 75 mcg tablet RxNorm: 332567 1 Tablet(s) PO every other day No Start Date 02/04/2015 Inactive takes qod with 200mcg oxycodone 10 mg tablet RxNorm: 6218744 1 Tablet(s) PO Q6 as needed No Start Date 05/05/2015 Inactive ketoconazole 2 % topical cream RxNorm: 556357 1 Gram(s) TOP BID to affected area [...] Code Item Item Code Result Date %Hba1C Yfz566 % HbA1c 24190-0 6.4 % 08/30/2018 %Hba1C Lzv534 Gluc Ave 137 mg/dL 08/30/2018 Culture Urine [id number] URINE CULTURE SEE NOTES 02/22/2018 Urine Culture [...] 24.5 pg 02/20/2018 Cbc With Differential Ord2 Letcher% 8.9 % 02/20/2018 Cbc With Differential Ord2 [...] 0.81 K/ul 02/20/2018 Cbc With Differential Ord2 Letcher ABS# 0.7 K/ul 02/20/2018 Cbc With Differential Ord2 Eos ABS# 0.4 K/ul 02/20/2018 Cbc With Differential Ord2 Baso ABS# 0.0 K/ul 02/20/2018 %Hba1C Quz555 % HbA1c 41273-6 7.7 % 02/20/2018 %Hba1C Aaf909 Gluc Ave 174 mg/dL 02/20/2018 Lipase Jot891 LIPASE 17 U/L 02/20/2018 Microalbumin Egb696 MicroAlb 6.5 mg/dL 02/20/2018 Amylase Ord34 AMYLASE 15 U/L 02/20/2018 Free T4 Uxr787 FREE T4 0.61 ng/dL 02/20/2018 Lipid Ord30 CHOL 203 mg/dL 02/20/2018 Lipid Ord30 HDL 7.0 mg/dl 02/20/2018 Lipid Ord30 TRIG 271 mg/dL 02/20/2018 Lipid Ord30 LDL 142 mg/dL 02/20/2018 Lipid Ord30 C/HDL 29.0 Ratio 02/20/2018 Comp Metabolic Riv480 NA 134 mEq/L 02/20/2018 Comp Metabolic Byz875 K 3.6 mEq/L 02/20/2018 Comp Metabolic Bqg769 CL 96 mEq/L 02/20/2018 Comp Metabolic Vus795 CO2 29.0 mEq/L 02/20/2018 Comp Metabolic Umq979 ANION GAP 13 02/20/2018 Comp Metabolic Ztz441 GLUCOSE 165 mg/dL 02/20/2018 Comp Metabolic Wow529 Creat 1.2 mg/dL 02/20/2018 Comp Metabolic Bch787 eGFR 63 ml/min/1.73m2 02/20/2018 Comp Metabolic Zhn127 BUN 14 mg/dL 02/20/2018 Comp Metabolic Emb797 B/C Ratio 11.6 Ratio 02/20/2018 Comp Metabolic Kvt536 CALCIUM 8.5 mg/dL 02/20/2018 Comp Metabolic Mtd271 ALK PHOS 633 U/L 02/20/2018 Comp Metabolic Ybr410 AST(SGOT) 112 U/L 02/20/2018 Comp Metabolic Bwz127 ALT(SGPT) 148 U/L 02/20/2018 Comp Metabolic Gfu691 BILI T 6.8 mg/dL 02/20/2018 Comp Metabolic Xcd378 ALBUMIN 3.3 g/dL 02/20/2018 Comp Metabolic Fwd568 TPRO 5.9 g/dL 02/20/2018 Comp Metabolic Aaf799 GLOB 2.6 g/dL 02/20/2018 Comp Metabolic Dej055 A/G Ratio 1.3 Ratio 02/20/2018 Comp Metabolic Wio607 Osmo 272 mOsmo 02/20/2018 Total Psa Ord10 [...] Metabolic Ord15 CALCIUM 9.2 mg/dL 11/09/2017 %Hba1C Vvd693 % HbA1c 06112-1 8.0 % 11/09/2017 %Hba1C Zar594 Gluc Ave 183 mg/dL 11/09/2017 Metabolic Ord15 [...] Ord15 CALCIUM 8.7 mg/dL 06/25/2017 Culture Wound [id number] WOUND CULTURE SEE NOTES 04/09/2017 Culture Wound [id number] Continued Results 04/09/2017 Amylase Ord34 AMYLASE 19 [...] 27.9 pg 03/22/2017 Cbc With Differential Ord2 Letcher% 8.3 % 03/22/2017 Cbc With Differential Ord2 [...] 1.35 K/ul 03/22/2017 Cbc With Differential Ord2 [place] ABS# 1.4 K/ul 03/22/2017 Cbc With Differential Ord2 Eos ABS# 0.2 K/ul 03/22/2017 Cbc With Differential Ord2 Baso ABS# 0.0 K/ul 03/22/2017 Comp Metabolic Her946 NA 134 mEq/L 03/22/2017 Comp Metabolic Mgw369 K 4.5 mEq/L 03/22/2017 Comp Metabolic Gap387 CL 93 mEq/L 03/22/2017 Comp Metabolic Sph073 CO2 31.0 mEq/L 03/22/2017 Comp Metabolic Mqt681 ANION GAP 15 03/22/2017 Comp Metabolic Qsv494 GLUCOSE 198 mg/dL 03/22/2017 Comp Metabolic Pbl031 Creat 1.5 mg/dL 03/22/2017 Comp Metabolic Ohc977 eGFR 50 ml/min/1.73m2 03/22/2017 Comp Metabolic Cma903 BUN 32 mg/dL 03/22/2017 Comp Metabolic Lgk238 B/C Ratio 21.6 Ratio 03/22/2017 Comp Metabolic Sev963 CALCIUM 8.4 mg/dL 03/22/2017 Comp Metabolic Zix699 ALK PHOS 245 U/L 03/22/2017 Comp Metabolic Rlr752 AST(SGOT) 18 U/L 03/22/2017 Comp Metabolic Pbx109 ALT(SGPT) 17 U/L 03/22/2017 Comp Metabolic Icz703 BILI T 0.8 mg/dL 03/22/2017 Comp Metabolic Yvj650 ALBUMIN 2.9 g/dL 03/22/2017 Comp Metabolic Qnl984 TPRO 6.3 g/dL 03/22/2017 Comp Metabolic Fzo064 GLOB 3.4 g/dL 03/22/2017 Comp Metabolic Zud693 A/G Ratio 0.8 Ratio 03/22/2017 Comp Metabolic Xlr017 Osmo 281 mOsmo 03/22/2017 Lipase Oux650 LIPASE 12 U/L 03/22/2017 Comp Metabolic Atl381 NA 142 mEq/L 03/09/2017 Comp Metabolic Hfg197 K 4.8 mEq/L 03/09/2017 Comp Metabolic Djy683 CL 103 mEq/L 03/09/2017 Comp Metabolic Wmv552 CO2 30.0 mEq/L 03/09/2017 Comp Metabolic Bbe582 ANION GAP 14 03/09/2017 Comp Metabolic Kcv210 GLUCOSE 152 mg/dL 03/09/2017 Comp Metabolic Kty021 Creat 1.3 mg/dL 03/09/2017 Comp Metabolic Okf532 eGFR 56 ml/min/1.73m2 03/09/2017 Comp Metabolic Oua642 BUN 23 mg/dL 03/09/2017 Comp Metabolic Iks781 B/C Ratio 17.3 Ratio 03/09/2017 Comp Metabolic Ecn075 CALCIUM 8.5 mg/dL 03/09/2017 Comp Metabolic Dpc545 ALK PHOS 97 U/L 03/09/2017 Comp Metabolic Pxg569 AST(SGOT) 10 U/L 03/09/2017 Comp Metabolic Nkd670 ALT(SGPT) 6 U/L 03/09/2017 Comp Metabolic Qez034 BILI T 0.4 mg/dL 03/09/2017 Comp Metabolic Qmj586 ALBUMIN 3.4 g/dL 03/09/2017 Comp Metabolic Ino256 TPRO 6.2 g/dL 03/09/2017 Comp Metabolic Gma529 GLOB 2.8 g/dL 03/09/2017 Comp Metabolic Eft230 A/G Ratio 1.2 Ratio 03/09/2017 Comp Metabolic Win445 Osmo 290 mOsmo 03/09/2017 Free T4 Kmv890 FREE T4 0.86 ng/dL 03/08/2017 Cbc With [...] 28.2 pg 03/08/2017 Cbc With Differential Ord2 Letcher% 8.7 % 03/08/2017 Cbc With Differential Ord2 [...] 1.63 K/ul 03/08/2017 Cbc With Differential Ord2 [place] ABS# 0.9 K/ul 03/08/2017 Cbc With Differential Ord2 Eos ABS# 0.5 K/ul 03/08/2017 Cbc With Differential Ord2 Baso ABS# 0.0 K/ul 03/08/2017 Tsh Ord6 hTSH II 4.52 uIU/mL 03/08/2017 %Hba1C Krb478 % HbA1c 26065-4 8.5 % 03/08/2017 %Hba1C Rio473 Gluc Ave 197 mg/dL 03/08/2017 %Hba1C Itd272 % HbA1c 38295-2 9.8 % 12/04/2016 %Hba1C Sxv905 Gluc Ave 235 mg/dL 12/04/2016 Tsh Ord6 hTSH II 10.65 uIU/mL 11/30/2016 Comp Metabolic Roa235 NA 134 mEq/L 11/30/2016 Comp Metabolic Iky864 K 5.0 mEq/L 11/30/2016 Comp Metabolic Sof729 CL 95 mEq/L 11/30/2016 Comp Metabolic Tzo681 CO2 34.0 mEq/L 11/30/2016 Comp Metabolic Yyr711 ANION GAP 10 11/30/2016 Comp Metabolic Lzh398 GLUCOSE 226 mg/dL 11/30/2016 Comp Metabolic Bjb857 Creat 1.3 mg/dL 11/30/2016 Comp Metabolic Lju039 eGFR 56 ml/min/1.73m2 11/30/2016 Comp Metabolic Uav307 BUN 21 mg/dL 11/30/2016 Comp Metabolic Nks705 B/C Ratio 15.7 Ratio 11/30/2016 Comp Metabolic Liy971 CALCIUM 8.9 mg/dL 11/30/2016 Comp Metabolic Jeo270 ALK PHOS 112 U/L 11/30/2016 Comp Metabolic Yoy654 AST(SGOT) 9 U/L 11/30/2016 Comp Metabolic Jmc289 ALT(SGPT) 7 U/L 11/30/2016 Comp Metabolic Qzj418 BILI T 0.6 mg/dL 11/30/2016 Comp Metabolic Hjp965 ALBUMIN 3.6 g/dL 11/30/2016 Comp Metabolic Otn145 TPRO 6.4 g/dL 11/30/2016 Comp Metabolic Ooe413 GLOB 2.9 g/dL 11/30/2016 Comp Metabolic Chl894 A/G Ratio 1.2 Ratio 11/30/2016 Comp Metabolic Gkx254 Osmo 278 mOsmo 11/30/2016 Lipid Ord30 CHOL [...] 13.0 % 11/30/2016 Cbc With Differential Ord2 Letcher% 7.9 % 11/30/2016 Cbc With Differential Ord2 [...] 1.34 K/ul 11/30/2016 Cbc With Differential Ord2 [place] ABS# 0.8 K/ul 11/30/2016 Cbc With Differential Ord2 Eos ABS# 0.3 K/ul 11/30/2016 Cbc With Differential Ord2 Baso ABS# 0.0 K/ul 11/30/2016 Free T4 Umn059 FREE T4 0.89 ng/dL 11/30/2016 Review of [...] - General 1995 Integument inspection of skin Rash/Lesions: ulceration 10/18/2018 [...] affect 10/18/2018 None Full Exam - General 1995 Constitutional general appearance Overall: well developed 10/14/2018 None Full Exam - General 1995 Constitutional general appearance Overall: in no acute distress 10/14/2018 None Full Exam - General 1995 Constitutional general appearance Overall: well nourished 10/14/2018 [...] clear 11/30/2016 None Full Exam - General 1995 Eyes conjunctiva /eyelids Overall: cornea clear 11/30/2016 [...] Codes Date ADMIN PNEUMOCOCCAL VACCINE SNOMED CT: 62230236 CPT-4: G0009 02/05/2018 Pneumococcal Polysaccharide Vaccine, 23-Valent, Ad CPT-4: 22627 02/05/2018 PPPS, SUBSEQ VISIT CPT -4: G0439 11/30/2017 URINALYSIS NONAUTO W/O SCOPE CPT-4: 07668 03/22/2017 URINALYSIS NONAUTO W/O SCOPE CPT-4: 45264 03/21/2017 PPPS, SUBSEQ VISIT CPT -4: G0439 11/30/2016 PNEUMOCOCCAL VACC 13 JAVIER IM Formatting Model/CDA Sections, Assigned to SNOMED CT: 78207687 CPT-4: 13269Xxxkphz 11/30/2016 ADMIN PNEUMOCOCCAL VACCINE SNOMED CT: 47730894 CPT-4: G0009 11/30/2016 Vital Signs Date Vital 10/18/2018 Blood Pressure 1: 118/70 Code : 8480-6 BMI: 39.0 Code : 36678-8 Heart Rate 1 : 86 bpm Height: 5'10" SpO2: 95% Weight: 272 lbs 10/14/2018 Blood Pressure 1: 120/56 Code : 8480-6 Heart Rate 1: 67 bpm Height: 5'10" SpO2: 92% 10/10/2018 Blood Pressure 1: 126/70 Code : 8480-6 BMI: 34.7 Code : 18600-7 Heart Rate 1 : 80 bpm Height: 5'10" SpO2: 96% Temperature: 37.1 (C) / 98.7 (F) Weight: 242 lbs 10/04/2018 Blood Pressure 1: 120/70 Code : 8480-6 Height: 5'10" SpO2: 96% 08/29/2018 Blood Pressure 1: 104/60 Code : 8480-6 BMI: 34.6 Code : 98146-1 Heart Rate 1 : 68 bpm Height: 5'10" SpO2: 98% Weight: 241 lbs 02/25/2018 Blood Pressure 1: 120/70 Code : 8480-6 BMI: 37.0 Code : 57053-5 Heart Rate 1 : 51 bpm Height: 5'10" SpO2: 97% Weight: 258 lbs 02/20/2018 Blood Pressure 1: 124/70 Code : 8480-6 BMI: 38.0 Code : 97385-8 Heart Rate 1 : 60 bpm Height: 5'10" SpO2: 96% Weight: 265 lbs 02/05/2018 Blood Pressure 1: 116/66 Code : 8480-6 BMI: 38.0 Code : 74620-9 Heart Rate 1 : 63 bpm Height: 5'10" SpO2: 98% Weight: 265 lbs 11/30/2017 Blood Pressure 1: 132/60 Code : 8480-6 BMI: 37.0 Code : 09591-2 Heart Rate 1 : 100 bpm Height: 5'10 " SpO2: 96% Waist Measure (cm): 122 cm Weight: 258 lbs 11/08/2017 Blood Pressure 1: 126/64 Code : 8480-6 BMI: 37.2 Code : 51363-7 Heart Rate 1 : 92 bpm Height: 5'10" SpO2: 94% Weight: 259 lbs 09/20/2017 Blood Pressure 1: 122/68 Code : 8480-6 BMI: 36.9 Code : 45541-1 Heart Rate 1 : 57 bpm Height: 5'10" SpO2: 96% Weight: 257 lbs 06/25/2017 Blood Pressure 1: 124/68 Code : 8480-6 BMI: 37.0 Code : 84258-7 Height: 5'10 " Weight: 258 lbs 06/07/2017 Blood Pressure 1: 122/64 Code : 8480-6 BMI: 37.0 Code : 62320-9 Heart Rate 1 : 60 bpm Height: 5'10" SpO2: 94% Temperature: 36.4 (C) / 97.6 (F) Weight: 258 lbs 05/03/2017 Blood Pressure 1: 118/74 Code : 8480-6 BMI: 38.2 Code : 48905-9 Heart Rate 1 : 52 bpm Height: 5'10" SpO2: 98% Weight: 266 lbs 04/02/2017 Blood Pressure 1: 118/62 Code : 8480-6 BMI: 38.2 Code : 16946-3 Heart Rate 1 : 53 bpm Height: 5'10" SpO2: 93% Weight: 266 lbs 03/26/2017 Blood Pressure 1: 114/62 Code : 8480-6 BMI: 38.3 Code : 25082-7 Height: 5'10 " Weight: 267 lbs 03/22/2017 Blood Pressure 1: 122/64 Code : 8480-6 BMI: 40.0 Code : 91578-0 Heart Rate 1 : 52 bpm Height: 5'10" SpO2: 94% Weight: 279 lbs 03/08/2017 Blood Pressure 1: 124/70 Code : 8480-6 BMI: 39.4 Code : 21850-2 Heart Rate 1 : 51 bpm Height: 5'10" SpO2: 94% Weight: 274 lbs 8 oz 12/06/2016 Blood Pressure 1: 126/62 Code : 8480-6 BMI: 40.3 Code : 07437-3 Heart Rate 1 : 50 bpm Height: 5'10" SpO2: 94% Weight: 281 lbs 11/30/2016 Blood Pressure 1: 112/62 Code : 8480-6 BMI: 40.3 Code : 17617-5 Heart Rate 1 : 52 bpm Height: 5'10" SpO2: 93% Waist Measure (cm): 135 cm Weight: 281 lbs 11/28/2016 Blood Pressure 1: 132/72 Code : 8480-6 BMI: 40.3 Code : 76931-4 Heart Rate 1 : 50 bpm Height: 5'10" Weight: 281 lbs 05/04/2016 Blood Pressure 1: 128/78 Code : 8480-6 BMI: 38.5 Code : 80630-6 Heart Rate 1 : 74 bpm Height: 5'10" SpO2: 98% Weight: 268 lbs 8 oz 11/04/2015 Blood Pressure 1: 136/60 Code : 8480-6 BMI: 38.0 Code : 51054-7 Heart Rate 1 : 55 bpm Height: 5'10" SpO2: 94% Weight: 265 lbs 07/30/2015 Blood Pressure 1: 128/74 Code : 8480-6 BMI: 38.0 Code : 05338-5 Heart Rate 1 : 47 bpm Height: 5'10" SpO2: 97% Weight: 265 lbs 01/26/2015 Blood Pressure 1: 122/64 Code : 8480-6 BMI: 34.0 Code : 55924-8 Heart Rate 1 : 68 bpm Height: [...] limb[ICD10: L03.115] Kiki Sanchez MD, [facility] CPT-4: 31607 10/18/2018 [id number] EST. PATIENT, LEVEL III Diagnosis: Localized edema[ICD10: R60.0] Diagnosis: Cellulitis of left lower limb[ICD10: L03.116] Diagnosis: Cellulitis of right lower limb[ICD10: L03.115] Diagnosis: Chronic obstructive pulmonary disease, unspecified[ICD10: J44.9] Diagnosis: Weakness[ICD10: R53.1] Kiki Sanchez MD, [facility] CPT-4: 62204 10/14/2018 [id number] EST. PATIENT, LEVEL III Diagnosis: Localized edema[ICD10: R60.0] Diagnosis: Cellulitis of left lower limb[ICD10: L03.116] Diagnosis: Cellulitis of right lower limb[ICD10: L03.115] Kiki Sanchez MD, [facility] CPT-4: 54038 10/10/2018 ([id number]) [id number] EST. PATIENT, LEVEL IV Diagnosis: Type 2 diabetes mellitus with foot ulcer[ICD10: E11.621] Diagnosis: Essential (primary) hypertension[ICD10: I10] Diagnosis: Malignant neoplasm of prostate[ICD10: C61] Diagnosis: Chronic obstructive pulmonary disease, unspecified[ICD10: J44.9] Diagnosis: Hypoxemia[ICD10: R09.02] Sarah Sanchez MD, [facility] CPT-4: 18787 10/04/2018 ([id number]) 24679 EST. PATIENT, LEVEL IV Diagnosis: Type 2 diabetes mellitus with hyperglycemia[ICD10: E11.65] Diagnosis: Essential (primary) hypertension[ICD10: I10] Diagnosis: Malignant neoplasm of prostate[ICD10: C61] Sarah Sanchez MD, [facility] CPT-4: 50052 08/29/2018 ([id number]) 40684 EST. PATIENT, LEVEL IV Diagnosis: Malignant neoplasm of prostate[ICD10: C61] Dorene Sanchez MD, [facility] CPT-4: 53464 02/25/2018 99785 EST. PATIENT, LEVEL IV Diagnosis: Generalized abdominal pain[ICD10: R10.84] Diagnosis: Unspecified jaundice[ICD10: R17] Diagnosis: Gross hematuria[ICD10: R31.0] Kiki Sanchez MD, [facility] CPT-4 : 63000 02/20/2018 ([id number]) 59975 EST. PATIENT, LEVEL IV Diagnosis: Type 2 diabetes mellitus with hyperglycemia[ICD10: E11.65] Diagnosis: Essential (primary) hypertension[ICD10: I10] Diagnosis: Chronic kidney disease, stage 3 (moderate)[ICD10: N18.3] Diagnosis: Chronic pain syndrome[ICD10: G89.4] Diagnosis: Other specified hypothyroidism[ICD10: E03.8] Diagnosis: Encounter for screening for malignant neoplasm of prostate[ICD10: Z12.5] Diagnosis: Encounter for immunization[ICD10: Z23] Sarah Sanchez MD, [facility] CPT-4: 03229 02/05/2018 ([id number]) 60503 EST. PATIENT, LEVEL IV Diagnosis: Type 2 diabetes mellitus with hyperglycemia[ICD10: E11.65] Diagnosis: Essential (primary) hypertension[ICD10: I10] Dorene Sanchez MD, [facility] CPT-4: 54146 11/08/2017 [id number] 72363 EST. PATIENT, LEVEL IV Diagnosis: Type 2 diabetes mellitus with hyperglycemia[ICD10: E11.65] Diagnosis: Chronic pain syndrome[ICD10: G89.4] Diagnosis: Essential (primary) hypertension[ICD10: I10] Diagnosis: Chronic kidney disease, stage 3 (moderate)[ICD10: N18.3] Diagnosis: Localized edema[ICD10: R60.0] Dorene Sanchez MD, [facility] CPT- 4: 00232 09/20/2017 ([id number]) 13030 EST. PATIENT, LEVEL III Diagnosis: Type 2 diabetes mellitus with hyperglycemia[ICD10: E11.65] Sarah Sanchez MD, [facility] CPT-4: 20512 06/25/2017 ([id number]) 55567 EST. PATIENT, LEVEL III Diagnosis: Cellulitis of left lower limb[ICD10: L03.116] Sarah Sanchez MD [facility] CPT-4: 05940 06/07/2017 ([id number]) 91950 EST. PATIENT, LEVEL III Diagnosis: Localized edema[ICD10: R60.0] Diagnosis: Type 2 diabetes mellitus with foot ulcer[ICD10: E11.621] Sarah Sanchez MD [facility] CPT-4: 12550 05/03/2017 ([id number]) 85802 EST. PATIENT, LEVEL III Diagnosis: Cellulitis of left lower limb[ICD10: L03.116] Diagnosis: Localized edema[ICD10: R60.0] Sarah Sanchez MD [facility] CPT-4: 36903 04/02/2017 ([id number]) Miscellaneous no charge Diagnosis: Localized edema[ICD10: R60.0] Diagnosis: Cellulitis of left lower limb[ICD10: L03.116] Sarah Sanchez MD, [facility] CPT-4: 66543 03/26/2017 ([id number]) 03610 EST. 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 PATIENT, LEVEL IV Diagnosis: Type 2 diabetes mellitus with hyperglycemia[ICD10: E11.65] Diagnosis: Other specified hypothyroidism[ICD10: E03.8] Diagnosis: Essential (primary) hypertension[ICD10: I10] Sarah Sanchez MD, [facility] CPT-4: 21015 03/08/2017 ([id number]) 42467 EST. PATIENT, LEVEL III Diagnosis: Type 2 diabetes mellitus with hyperglycemia[ICD10: E11.65] Diagnosis: Other specified hypothyroidism[ICD10: E03.8] Sarah Sanchez MD, [facility] CPT-4: 13136 12/06/2016 ([id number]) 31372 EST. PATIENT, LEVEL IV Diagnosis: Essential (primary) hypertension[ICD10: I10] Diagnosis: Chronic kidney disease, stage 3 (moderate)[ICD10: N18.3] Dorene Sanchez MD, [facility] CPT-4: 65884 11/28/2016 ([id number]) 81837 EST. PATIENT, LEVEL IV Diagnosis: Essential (primary) hypertension[ICD10: I10] Diagnosis: Chronic pain syndrome[ICD10: G89.4] Diagnosis: Chronic kidney disease, stage 3 (moderate)[ICD10: N18.3] Diagnosis: Vitamin B12 deficiency anemia due to intrinsic factor deficiency[ ICD10: D51.0] Diagnosis: Other specified hypothyroidism[ICD10: E03.8] Dorene Sanchez MD, [facility] CPT-4: 22006 05/04/2016 [id number] EST. PATIENT, LEVEL III Diagnosis: Chronic pain syndrome[ICD10: G89.4] Diagnosis: Essential (primary) hypertension[ICD10: I10] Diagnosis: Other specified hypothyroidism[ICD10: E03.8] Kiki Sanchez MD, [facility] CPT-4: 59801 11/04/2015 61922 EST. PATIENT, LEVEL III Diagnosis: Chronic pain syndrome[ICD10: G89.4] Diagnosis: Essential (primary) hypertension[ICD10: I10] Kiki Sanchez MD, [facility] CPT-4: 76545 07/30/2015 ([id number]) OFFICE/OUTPATIENT VISIT NEW Diagnosis: ESSENTIAL HYPERTENSION[ICD9: 401.9] Diagnosis: HYPOTHYROIDISM[ICD9: 244.9] Diagnosis: ANEMIA[ICD9: 285.9] Diagnosis: Vitamin B12 deficiency[ICD9: 266.2] Diagnosis: CHRONIC PAIN SYNDROME[ICD9: 338.4] Diagnosis: Chronic renal insufficiency, stage III (moderate)[ICD9: 585.3] Diagnosis: GOUT[ICD9: 274.9] Dorene Sanchez MD, [facility] CPT-4: 25351 01/26/2015 Plan of Care Planned Activity Notes [...] warmth, discharge. 10/18/2018 Appointment: Kiki Menjivar WPtel: [facility] (30 min) [facility] 10/18/2018 Patient Education: Patient Medication Summary [...] edema. 10/14/2018 Appointment: Kiki Menjivar WPtel: [phone] [facility] (30 min) Complex 10/14/2018 Patient Education: Patient [...] discharge. 10/10/2018 Appointment: Kiki Menjivar WPtel: [phone] [facility] (30 min) Complex 10/10/2018 Patient Education: Patient Medication Summary Completed 10/10/2018 Visit Plan: DM with peripheral neuropathy-paperwork completed for diabetic shoes and will fax to Dr Bauer HTN-controlled -no changes Mvnawhklh-USDZ-KTE-prostate cancer with mets- patient qualifies for oxygen-oxygen saturation dropped to 86% on room air during ambulation but increased to 99% on 2L NC at rest-will send orders to [facility] for continue oxygen at 2L per nasal cannula 10/04/2018 Appointment: [facility]and[facility]el[phone] [phone] (30 min) Complex 10/04/2018 Patient Education: Patient [...] Dr Moreno 08/29/2018 Appointment: Sarah Hernandes WPtel: [phone] [place] (15 min) Moderate 08/29/2018 Patient Education: Patient Medication Summary Completed 08/29/2018 Referral: Edgard Rivera MD WPtel: Via [address] with Dr. Moreno. Patient informed. Referral info faxed. Completed 02/27/2018 Visit Plan: Recurrent prostate cancer - I have recommended a referral to Dr. Rivera. We discussed the case at length today- he is not interested in extensive treatment, but if possible to extend his quantity and quality of life, he would like to try. 02/25/2018 Appointment: Dorene Sanchez WPtel: [facility] (15 min) Moderate 02/25/2018 Patient Education: Patient Medication Summary Completed 02/25/2018 Care Plan: Referral Order SNOMED-CT : [id number] Pending 02/25/2018 Visit Plan: Intermittent abdominal pain, jaundice, itching - will check labs and treat as indicated - pt is to go to the ER with any acute change in symptoms or any acute concerns. 02/20/2018 Appointment: Kiki Menjivar WPtel: [facility] [place] (30 min) Complex 02/20/2018 Patient Education: Patient [...] of control. 02/05/2018 Appointment: Sarah Hernandes WPtel: [facility] (30 min) [facility] 02/05/2018 Patient Education: Patient Medication Summary Completed [...] surrogate. 11/30/2017 Appointment: Sarah Hernandes WPtel: [phone] [place] [phone] [facility] - Annual Wellness Visit 11/30/2017 Patient Education: [...] to 1.2 11/08/2017 [facility]ointment: [facility] ([facility] Moderate 11/08/2017 Patient Education: Patient [...] of over-medication. 09/20/2017 Appointment: [phone] [place] (15 min) Moderate 09/20/2017 Patient Education: Patient [...] glucose control. 06/25/2017 Appointment: Sarah Hernandes WPtel: [phone] (30 min) Complex 06/25/2017 Patient Education: Patient Medication Summary Completed 06/25/2017 Appointment: Sarah Hernandes WPtel: [phone] [place] (30 min) Complex 06/22/2017 Visit Plan: Cellulitis - start oral antibiotics as previously directed, return to clinic as previously directed, call for acute change in symptoms, worsening redness, warmth, discharge. 06/07/2017 Appointment: Sarah Hernandes WPtel: [phone] [place] (30 min) Complex 06/07/2017 Patient Education: Patient Medication Summary Completed 06/07/2017 Patient Education: Obesity Completed 06/07/2017 App[facility]ment: [phone] [place] (15 min) Moderate 05/31/2017 Visit Plan: Edema-significantly improved-no changes Ulcer- left lower leg and foot-seeing Dr Norwood at wound care-appt scheduled with Dr Frausto for vascular evaluation 05/03/2017 Appointment: Sarah Hernandes WPtel: [phone] [place] (15 min) Moderate 05/03/2017 Patient Education: Patient Medication Summary Completed 05/03/2017 Patient Education: Obesity Completed 05/03/2017 Visit Plan: Zrojfktqzy-xcqylgbmn-cgjgeap to finish abx-no further treatment indicated Edema-significantly improved-no longer weeping- continue unna boots twice weekly with home health 04/02/2017 Appointment: Sarah Hernandes WPtel: [phone] [phone] [place] (30 min) Complex 04/02/2017 Patient Education: Patient Medication Summary Completed 04/02/2017 Patient Education: Obesity Completed 04/02/2017 Visit Plan: Cellulitis-left leg-continue levaquin Edema- increase lasix/potassium-consult [facility] for unna boots/dressing changes 03/26/2017 Appointment: Sarah Hernandes WPtel: [phone] [phone] [place] (15 min) Moderate 03/26/2017 Patient Education: [...] indomethacin-stop aleve 03/22/2017 Appointment: Sarah Hernandes WPtel: [address] [place], [place] [phone] (15 min) Moderate 03/22/2017 Patient Education: Patient [...] of control. 03/08/2017 Appointment: Sarah Hernandes WPtel: [address] [place] [phone] (30 min) Complex 03/08/2017 Patient Education: Patient [...] care surrogate. 11/30/2016 Appointment: Sarah Hernandes WPtel: [address] [place] [phone] [facility] - Annual Wellness Visit 11/30/2016 Patient Education: [...] in fluids. 11/28/2016 Appointment: Dorene Sanchez WPtel: [facility] ([facility]) Moderate 11/28/2016 Patient Education: Patient [...] 01/26/2015 Referral: Edgard Rivera MD WPtel: [address] [place] Referral Appointment Requested Instructions Comment . Edema - pt has been advised [...] to assist with repositioning due to weakness PREVNAR 13 TODAY- GIVEN IN OFFICE PREVNAR 23 IN ONE YEAR SHINGLES VACCINATION TO BE ADMINISTERED AT [facility] RECOMMEND OBTAINING MEDICAL POWER OF STATISTICAL CONSULTANT AND LIVING WILL PATIENT DOES NOT HAVE [...] GFR 50-recommend patient stop the indomethacin-stop aleve . Recurrent prostate cancer - I have recommended a referral to Dr. Rivera. We discussed the case at length today- he is not interested in extensive treatment, but if possible to extend his quantity and quality of life, he would like to try. Take lasix 20mg a day twice a [...] in symptoms, worsening redness, warmth, discharge. . Medicare Exam - today we discussed [...] DOPA paperwork for health care surrogate. . Chronic Pain Syndrome - pt has [...] continue with supportive care and medication monitoring. take lasix 2 in the morning and [...] on leg/feet wounds and to decrease edema. victoza 0.6mg daily . Diabetes Mellitus - [...] to allow for greater blood glucose control. Monitor your blood pressure at home and [...] have labs - may need b12 shots. WOUND CARE APPT ANTIBIOTIC TO [facility] . Cellulitis - start oral antibiotics as [...] can discuss further treatment options with Dr Josh SHARP 13 TODAY- GIVEN IN OFFICE ARON 23 IN ONE YEAR SHINGLES VACCINATION TO BE ADMINISTERED AT [facility] RECOMMEND OBTAINING MEDICAL POWER OF STATISTICAL CONSULTANT AND LIVING WILL PATIENT DOES NOT HAVE [...] DOPA paperwork for health care surrogate. . Fnhfqowpzh-jwgbwcihb-heuiezt to finish abx-no further treatment indicated Edema-significantly improved-no longer weeping-continue unna boots twice weekly with home health PREVNAR 13 TODAY- GIVEN IN OFFICE PREVNAR 23 IN ONE YEAR SHINGLES VACCINATION TO BE ADMINISTERED AT [facility] RECOMMEND OBTAINING MEDICAL POWER OF STATISTICAL CONSULTANT AND LIVING WILL PATIENT DOES NOT HAVE [...] GFR 50-recommend patient stop the indomethacin-stop aleve Repeat labs at next appointment . Edema-significantly improved-no changes Ulcer-left lower leg and foot-seeing Dr Norwood at wound care-appt scheduled with Dr Frausto for vascular evaluation INCREASE LASIX AND POTASSIUM TO TWICE DAILY [facility] . Cellulitis-left leg-continue levaquin Edema-increase lasix/potassium-consult [facility] for unna boots/dressing changes increase the victoza to 1.2 . Hypertension [...] glucose control. increase the victoza to 1.2 REPEAT HGB A1C, CMP, TSH, FREE T4 [...] labs in 3 months-sooner if needed . Chronic Pain Syndrome - pt has [...] - continue with increase in fluids. . Hypertension - well controlled - continue [...] based on previous levels of control. . Diabetes Mellitus - controlled - per [...] and understands the consequences of over-medication. . Hypertension - well controlled - continue [...] fax to Dr Bauer HTN-controlled -no changes Zgtstmnea-DRAA-DGG-prostate cancer with mets- patient qualifies for oxygen- oxygen saturation dropped to 86% on room air during ambulation but increased to 99% on 2L NC at rest-will send orders to [facility] for continue oxygen at 2L per nasal cannula . Intermittent abdominal pain, jaundice, itching - will check labs and treat as indicated - pt is to go to the ER with any acute change in symptoms or any acute concerns.
--- OUTSIDE RECORDS SUMMARY | 2018-11-26 11:19 | XMS REPORT | CCD ---
Author Author Dorene Sanchez Organization [facility] Address [address] [place] [address] Phone Care Team Providers Care Elevators Inspector Name Role Phone PP Unavailable CCM Unavailable Summary Purpose Interface Exchange Insurance Providers Payer name Policy type / Coverage type Covered constitution party ID Effective Begin Date Effective End Date WPS Medicare Part B Medicare Part B [id number] Unknown Unknown Family history Father Diagnosis Age At Onset Stroke Unknown Mother Diagnosis Age At Onset Stroke Unknown Diabetes mellitus Type 2 Unknown Social History Social History Element Codes Description Effective Dates Tobacco history SNOMED CT: 789729825 Currently uses smokeless tobacco Chews 05/04/2016 Marital status Unknown 01/26/2015 Number of children Unknown 3 01/26/2015 Employment Unknown Retired 01/26/[address]: 494607758 Never drinks alcohol quit in July 2014 [...] Start Date Stop Date Status Fill Instructions Keflex 500 mg capsule RxNorm: 445510 1 Capsule(s) PO QID 201810/31/2018 Active Probiotic 10 billion cell capsule RxNorm: 6853648 1 Capsule(s) PO BID 10/25/2018 10/31/2018 Active Probiotic 10 billion cell capsule RxNorm: 3877950 1 Capsule(s) PO BID 10/25/2018 10/24/2018 Inactive oxycodone 20 mg tablet RxNorm: 4606011 1/2 Tablet(s) PO Q6 as needed 10/14/2018 11/12/2018 Active potassium chloride ER 10 mEq tablet,extended release RxNorm: 658205 1 Tablet(s) PO daily 10/10/2018 11/08/2018 Active Lasix 20 mg tablet RxNorm: 074725 1 Tablet(s) PO BID 201804/07/2019 Active Keflex 500 mg capsule RxNorm: 423777 1 Capsule(s) PO TID 201810/19/2018 Inactive albuterol sulfate 2.5 mg/3 mL (0.083 %) solution for nebulization RxNorm: 698285 1 Milliliter(s) INH TID DX J44.9 10/04/2018 01/31/2019 Active gabapentin 100 mg capsule RxNorm: 374598 TAKE ONE CAPSULE BY MOUTH IN THE EVENING AT 5PM 09/24/2018 03/22/2019 Active oxycodone 20 mg tablet RxNorm: 6443645 1/2 Tablet(s) PO Q6 as needed 09/12/2018 10/11/2018 Inactive oxycodone 20 mg tablet RxNorm: 3994208 1/2 Tablet(s) PO Q6 as needed 08/15/2018 09/11/2018 Inactive oxycodone 20 mg tablet RxNorm: 7170630 1/2 Tablet(s) PO Q6 as needed 07/16/2018 08/14/2018 Inactive oxycodone 20 mg tablet RxNorm: 2727120 1/2 Tablet(s) PO Q6 as needed 06/14/2018 07/13/2018 Inactive gabapentin 100 mg capsule RxNorm: 752375 TAKE ONE CAPSULE BY MOUTH IN THE EVENING AT 5PM 05/30/2018 09/23/2018 Inactive oxycodone 20 mg tablet RxNorm: 8006871 1/2 Tablet(s) PO Q6 as needed 05/15/2018 06/13/2018 Inactive oxycodone 20 mg tablet RxNorm: 3008928 1/2 Tablet(s) PO Q6 as needed 04/12/2018 05/11/2018 Inactive oxycodone 20 mg tablet RxNorm: 0935503 1/2 Tablet(s) PO Q6 as needed 03/11/2018 04/09/2018 Inactive levothyroxine 200 mcg tablet RxNorm: 562511 1 Tablet(s) PO daily 02/21/2018 02/15/2019 Active Cipro 500 mg tablet RxNorm: 324335 1 Tablet(s) PO BID 201702/20/2018 Inactive levothyroxine 200 mcg tablet RxNorm: 111968 1 Tablet(s) PO daily 02/21/2018 02/20/2018 Inactive Cipro 500 mg tablet RxNorm: 714194 1 Tablet(s) PO BID 201703/02/2018 Inactive oxycodone 20 mg tablet RxNorm: 1622418 1/2 Tablet(s) PO Q6 as needed 02/12/2018 03/10/2018 Inactive oxycodone 20 mg tablet RxNorm: 9334725 1/2 Tablet(s) PO Q6 as needed 01/16/2018 02/11/2018 Inactive gabapentin 100 mg capsule RxNorm: 614900 TAKE ONE CAPSULE BY MOUTH IN THE EVENING AT 5PM 01/15/2018 05/29/2018 Inactive bisoprolol 5 mg-hydrochlorothiazide 6.25 mg tablet RxNorm: 929872 TAKE ONE TABLET BY MOUTH DAILY 01/01/2018 12/26/2018 Active oxycodone 20 mg tablet RxNorm: 8057553 1/2 Tablet(s) PO Q6 as needed 12/20/2017 01/14/2018 Inactive oxycodone 20 mg tablet RxNorm: 4255407 1/2 Tablet(s) PO Q6 as needed 11/20/2017 12/19/2017 Inactive Victoza 2-Dino 0.6 mg/0.1 mL (18 mg/3 mL) subcutaneous pen injector RxNorm: 873073 1.2 Milligram(s) SQ daily 11/08/201712/07 Inactive oxycodone 20 mg tablet RxNorm: 3622900 1/2 Tablet(s) PO Q6 as needed 10/19/2017 11/17/2017 Inactive gabapentin 100 mg capsule RxNorm: 505009 1 Capsule(s) PO QPM at 5 pm 09/20/2017 01/14/2018 Inactive Lasix 20 mg tablet RxNorm: 652770 1 Tablet(s) QAM at 5pm 12/201703/18/2018 Inactive oxycodone 20 mg tablet RxNorm: 5332296 1/2 Tablet(s) PO Q6 as needed 09/18/2017 10/17/2017 Inactive oxycodone 20 mg tablet RxNorm: 1154432 1/2 Tablet(s) PO Q6 as needed 08/14/2017 09/12/2017 Inactive ketoconazole 2 % topical cream RxNorm: 745244 1 Gram(s) TOP BID to affected area until healed 08/03/2017 No Stop Date Active oxycodone 20 mg tablet RxNorm: 9107115 1/2 Tablet(s) PO Q6 as needed 07/17/2017 08/13/2017 Inactive pen needle, diabetic 31 gauge x 5/16" RxNorm: 1 Unit Dose Miscellaneous daily 06/25/2017 03/21/2018 Inactive daily use with victoza Bactrim DS 800 mg-160 mg tablet RxNorm: 474140 1 Tablet(s) PO BID Dr Norwood 06/25/2017 07/04/2017 Inactive Victoza 2-Dino 0.6 mg/0.1 mL (18 mg/3 mL) subcutaneous pen injector RxNorm: 072280 0.6 Milligram(s) SQ daily 06/25/201707/24 Inactive doxycycline hyclate 100 mg tablet RxNorm: 505317 1 Tablet(s) PO BID Dr Norwood 06/21/2017 06/30/2017 Inactive oxycodone 20 mg tablet RxNorm: 5526495 1/2 Tablet(s) PO Q6 as needed 06/14/2017 07/13/2017 Inactive clindamycin 150 mg capsule RxNorm: 280076 1 Capsule(s) PO Q8 06/16/2017 Inactive levothyroxine 175 mcg tablet RxNorm: 428331 TAKE ONE TABLET BY MOUTH DAILY 06/04/2017 09/01/2017 Inactive levothyroxine 175 mcg tablet RxNorm: 426581 TAKE ONE TABLET BY MOUTH DAILY 06/04/2017 11/30/2017 Inactive bisoprolol 5 mg-hydrochlorothiazide 6.25 mg tablet RxNorm: 681297 TAKE ONE TABLET BY MOUTH DAILY 05/24/2017 11/19/2017 Inactive oxycodone 20 mg tablet RxNorm: 6787702 1/2 Tablet(s) PO Q6 as needed 05/14/2017 06/12/2017 Inactive potassium chloride ER 10 mEq capsule,extended release RxNorm: 143110 TAKE ONE CAPSULE BY MOUTH DAILY NEEDED FOR 5 DAYS THEN NEEDED WITH LASIX 04/17/2017 10/13/2017 Inactive Lasix 20 mg tablet RxNorm: 462607 TAKE ONE TABLET BY MOUTH DAILY NEEDED 04/17/2017 09/19/2017 Inactive oxycodone 20 mg tablet RxNorm: 8947138 1/2 Tablet(s) PO Q6 as needed 04/12/2017 05/11/2017 Inactive Colcrys 0.6 mg tablet RxNorm: 382444 2 tabs at onset then may repeat 1 tab in 1 hours if needed- Tablet(s) PO 04/09/2017 No Stop Date Active then take daily until gout resolved Bactrim DS 800 mg-160 mg tablet RxNorm: 995276 1 Tablet(s) PO BID 04/09/2017 04/08/2017 Inactive dc levaquin Bactrim DS 800 mg-160 mg tablet RxNorm: 031870 1 Tablet(s) PO BID 04/09/2017 04/15/2017 Inactive dc levaquin Levaquin 500 mg tablet RxNorm: 024156 1 Tablet(s) PO daily 04/02/2017 Inactive Levaquin 500 mg tablet RxNorm: 372842 1 Tablet(s) PO daily 06/06/2017 Inactive indomethacin 25 mg capsule RxNorm: 936381 1 Capsule(s) PO TID PRN 03/22/2017 03/22/2017 Inactive Lasix 20 mg tablet RxNorm: 244318 1 Tablet(s) PO QDAY PRN 02/201704/16/2017 Inactive daily x 5 days then as needed Levaquin 500 mg tablet RxNorm: 777103 1 Tablet(s) PO daily 02/201703/31/2017 Inactive potassium chloride ER 10 mEq capsule,extended release RxNorm: 014236 1 Capsule(s) PO QDAY PRN 03/22/2017 04/16/2017 Inactive daily x 5 days then as needed with lasix oxycodone 20 mg tablet RxNorm: 6558374 1/2 Tablet(s) PO Q6 as needed 03/08/2017 04/06/2017 Inactive bisoprolol 5 mg-hydrochlorothiazide 6.25 mg tablet RxNorm: 144420 TAKE ONE TABLET BY MOUTH DAILY 02/14/2017 05/14/2017 Inactive oxycodone 20 mg tablet RxNorm: 5625434 1/2 Tablet(s) PO Q6 as needed 02/08/2017 03/07/2017 Inactive oxycodone 20 mg tablet RxNorm: 9208325 1/2 Tablet(s) PO Q6 as needed 01/08/2017 02/06/2017 Inactive levothyroxine 175 mcg tablet RxNorm: 207129 1 Tablet(s) PO daily 12/06/2016 06/03/2017 Inactive [SAVINGS FOR NON-COVERED DRUGS -- BIN:[id number], PCN: ASPROD1, Group: XXXXX, ID# XXXXXXX, Questions: . THIS IS NOT INSURANCE.] oxycodone 20 mg tablet RxNorm: 0571729 1/2 Tablet(s) PO Q6 as needed 12/04/2016 01/02/2017 Inactive oxycodone 20 mg tablet RxNorm: 3222532 1/2 Tablet(s) PO Q6 as needed 11/09/2016 12/03/2016 Inactive bisoprolol 5 mg-hydrochlorothiazide 6.25 mg tablet RxNorm: 971238 TAKE ONE TABLET BY MOUTH DAILY 11/08/2016 02/05/2017 Inactive oxycodone 20 mg tablet RxNorm: 8831890 1/2 Tablet(s) PO Q6 as needed 10/05/2016 11/03/2016 Inactive oxycodone 20 mg tablet RxNorm: 5280726 1/2 Tablet(s) PO Q6 as needed 09/06/2016 10/04/2016 Inactive oxycodone 20 mg tablet RxNorm: 7278420 1/2 Tablet(s) PO Q6 as needed 08/07/2016 09/05/2016 Inactive oxycodone 20 mg tablet RxNorm: 0054954 1/2 Tablet(s) PO Q6 as needed 07/04/2016 08/06/2016 Inactive oxycodone 20 mg tablet RxNorm: 8543861 1/2 Tablet(s) PO Q6 as needed 05/29/2016 07/03/2016 Inactive levothyroxine 150 mcg tablet RxNorm: 048237 1 Tablet(s) PO daily 04/10/2016 04/09/2016 Inactive [SAVINGS FOR NON-COVERED DRUGS -- BIN:[id number], PCN: ASPROD1, Group: XXXXX, ID# XXXXXXX, Questions: . THIS IS NOT INSURANCE.] oxycodone 20 mg tablet RxNorm: 2533625 1/2 Tablet(s) PO Q6 as needed 04/10/2016 05/28/2016 Inactive levothyroxine 150 mcg tablet RxNorm: 399904 1 Tablet(s) PO daily 04/10/2016 10/06/2016 Inactive [SAVINGS FOR NON-COVERED DRUGS -- BIN:505214, PCN: ASPROD1, Group: XXXXX, ID# XXXXXXX, Questions: . THIS IS NOT INSURANCE.] bisoprolol 5 mg-hydrochlorothiazide 6.25 mg tablet RxNorm: 470407 1 Tablet(s) PO daily 02/16/2016 12/31/2017 Inactive oxycodone 20 mg tablet RxNorm: 1235270 1/2 Tablet(s) PO Q6 as needed 02/16/2016 04/09/2016 Inactive oxycodone 20 mg tablet RxNorm: 5354464 1/2 Tablet(s) PO Q6 as needed 01/04/2016 02/15/2016 Inactive bisoprolol 5 mg-hydrochlorothiazide 6.25 mg tablet RxNorm: 783125 1 Tablet(s) PO daily 11/19/2015 01/17/2016 Inactive bisoprolol 5 mg-hydrochlorothiazide 6.25 mg tablet RxNorm: 552695 1 Tablet(s) PO daily 11/04/2015 11/18/2015 Inactive oxycodone 20 mg tablet RxNorm: 4634240 1/2 Tablet(s) PO Q6 as needed 10/27/2015 01/03/2016 Inactive levothyroxine 150 mcg tablet RxNorm: 190346 1 Tablet(s) PO daily 08/26/2015 02/21/2016 Inactive [SAVINGS FOR NON-COVERED DRUGS -- BIN:[id number], PCN: ASPROD1, Group: XXXXX, ID# XXXXXXX, Questions: . THIS IS NOT INSURANCE.] bisoprolol 5 mg-hydrochlorothiazide 6.25 mg tablet RxNorm: 081046 1 Tablet(s) PO daily 08/26/2015 10/24/2015 Inactive oxycodone 10 mg tablet RxNorm: 2877051 1 Tablet(s) PO Q6 as needed 05/06/2015 10/26/2015 Inactive levothyroxine 150 mcg tablet RxNorm: 656409 1 Tablet(s) PO daily 02/05/2015 08/03/2015 Inactive [SAVINGS FOR NON-COVERED DRUGS -- BIN:327229, PCN: ASPROD1, Group: XXXXX, ID# XXXXXXX, Questions: . THIS IS NOT INSURANCE.] Vitamin D2 50,000 unit capsule RxNorm: 253011 1 Capsule(s) PO weekly 02/05/2015 05/05/2015 Inactive [SAVINGS FOR NON-COVERED DRUGS -- BIN:112637, PCN: ASPROD1, Group: XXXXX, ID# XXXXXXX, Questions: . THIS IS NOT INSURANCE.] Vitamin D2 50,000 unit capsule RxNorm: 062675 1 Capsule(s) PO weekly 02/05/2015 02/04/2015 Inactive bisoprolol 5 mg-hydrochlorothiazide 6.25 mg tablet RxNorm: 103987 1 Tablet(s) PO daily 01/26/2015 02/24/2015 Inactive levothyroxine 200 mcg tablet RxNorm: 426124 1 Tablet(s) PO daily 01/26/2015 01/25/2015 Inactive levothyroxine 200 mcg tablet RxNorm: 522987 1 Tablet(s) PO every other day 01/26/2015 02/04/2015 Inactive [SAVINGS FOR NON-COVERED DRUGS -- BIN:926155, PCN: ASPROD1, Group: XXXXX, ID# XXXXXXX, Questions: . THIS IS NOT INSURANCE.] aspirin 81 mg chewable tablet RxNorm: 583085 1 Tablet(s) PO daily No Start Date Active Plavix 75 mg tablet RxNorm: 968228 1 Tablet(s) PO daily manage by Dr Baig No Start Date Active simvastatin 40 mg tablet RxNorm: 970892 1 Tablet(s) PO QHS managed by Dr Baig No Start Date Active Colcrys 0.6 mg tablet RxNorm: 033859 2 tabs at onset then may repeat 1 tab in 1 hours if needed- Tablet(s) PO No Start Date 04/08/2017 Inactive then take daily until gout resolved aspirin 325 mg tablet RxNorm: 678653 1 Tablet(s) PO daily No Start Date 05/03/2016 Inactive levothyroxine 75 mcg tablet RxNorm: 571421 1 Tablet(s) PO every other day No Start Date 02/04/2015 Inactive takes qod with 200mcg oxycodone 10 mg tablet RxNorm: 4079615 1 Tablet(s) PO Q6 as needed No Start Date 05/05/2015 Inactive ketoconazole 2 % topical cream RxNorm: 156187 1 Gram(s) TOP BID to affected area [...] Code Item Item Code Result Date %Hba1C Opw177 % HbA1c 35150-8 6.4 % 08/30/2018 %Hba1C Ctj910 Gluc Ave 137 mg/dL 08/30/2018 Culture Urine [id number] URINE CULTURE SEE NOTES 02/22/2018 Urine Culture [...] 24.5 pg 02/20/2018 Cbc With Differential Ord2 Sampson% 8.9 % 02/20/2018 Cbc With Differential Ord2 [...] 0.81 K/ul 02/20/2018 Cbc With Differential Ord2 Sampson ABS# 0.7 K/ul 02/20/2018 Cbc With Differential Ord2 Eos ABS# 0.4 K/ul 02/20/2018 Cbc With Differential Ord2 Baso ABS# 0.0 K/ul 02/20/2018 %Hba1C Xme837 % HbA1c 61982-9 7.7 % 02/20/2018 %Hba1C Sio682 Gluc Ave 174 mg/dL 02/20/2018 Lipase Gqe645 LIPASE 17 U/L 02/20/2018 Microalbumin Mub110 MicroAlb 6.5 mg/dL 02/20/2018 Amylase Ord34 AMYLASE 15 U/L 02/20/2018 Free T4 Vyb711 FREE T4 0.61 ng/dL 02/20/2018 Lipid Ord30 CHOL 203 mg/dL 02/20/2018 Lipid Ord30 HDL 7.0 mg/dl 02/20/2018 Lipid Ord30 TRIG 271 mg/dL 02/20/2018 Lipid Ord30 LDL 142 mg/dL 02/20/2018 Lipid Ord30 C/HDL 29.0 Ratio 02/20/2018 Comp Metabolic Rps632 NA 134 mEq/L 02/20/2018 Comp Metabolic Oyz862 K 3.6 mEq/L 02/20/2018 Comp Metabolic Bey047 CL 96 mEq/L 02/20/2018 Comp Metabolic Jkc313 CO2 29.0 mEq/L 02/20/2018 Comp Metabolic Nni792 ANION GAP 13 02/20/2018 Comp Metabolic Cri526 GLUCOSE 165 mg/dL 02/20/2018 Comp Metabolic Fbk770 Creat 1.2 mg/dL 02/20/2018 Comp Metabolic Uem664 eGFR 63 ml/min/1.73m2 02/20/2018 Comp Metabolic Lqj295 BUN 14 mg/dL 02/20/2018 Comp Metabolic Mmz933 B/C Ratio 11.6 Ratio 02/20/2018 Comp Metabolic Lqu865 CALCIUM 8.5 mg/dL 02/20/2018 Comp Metabolic Ohu159 ALK PHOS 633 U/L 02/20/2018 Comp Metabolic Aoy989 AST(SGOT) 112 U/L 02/20/2018 Comp Metabolic Vmg778 ALT(SGPT) 148 U/L 02/20/2018 Comp Metabolic Swg220 BILI T 6.8 mg/dL 02/20/2018 Comp Metabolic Dvn469 ALBUMIN 3.3 g/dL 02/20/2018 Comp Metabolic Awy973 TPRO 5.9 g/dL 02/20/2018 Comp Metabolic Pav913 GLOB 2.6 g/dL 02/20/2018 Comp Metabolic Dyp872 A/G Ratio 1.3 Ratio 02/20/2018 Comp Metabolic Klo300 Osmo 272 mOsmo 02/20/2018 Total Psa Ord10 [...] Metabolic Ord15 CALCIUM 9.2 mg/dL 11/09/2017 %Hba1C Aji944 % HbA1c 47356-2 8.0 % 11/09/2017 %Hba1C Kci810 Gluc Ave 183 mg/dL 11/09/2017 Metabolic Ord15 [...] Ord15 CALCIUM 8.7 mg/dL 06/25/2017 Culture Wound [id number] WOUND CULTURE SEE NOTES 04/09/2017 Culture Wound [id number] Continued Results 04/09/2017 Amylase Ord34 AMYLASE 19 [...] 27.9 pg 03/22/2017 Cbc With Differential Ord2 Sampson% 8.3 % 03/22/2017 Cbc With Differential Ord2 [...] 1.35 K/ul 03/22/2017 Cbc With Differential Ord2 Sampson ABS# 1.4 K/ul 03/22/2017 Cbc With Differential Ord2 Eos ABS# 0.2 K/ul 03/22/2017 Cbc With Differential Ord2 Baso ABS# 0.0 K/ul 03/22/2017 Comp Metabolic Eae590 NA 134 mEq/L 03/22/2017 Comp Metabolic Nvl001 K 4.5 mEq/L 03/22/2017 Comp Metabolic Agv281 CL 93 mEq/L 03/22/2017 Comp Metabolic Gzy894 CO2 31.0 mEq/L 03/22/2017 Comp Metabolic Bji762 ANION GAP 15 03/22/2017 Comp Metabolic Kah637 GLUCOSE 198 mg/dL 03/22/2017 Comp Metabolic Gvq532 Creat 1.5 mg/dL 03/22/2017 Comp Metabolic Rvv728 eGFR 50 ml/min/1.73m2 03/22/2017 Comp Metabolic Itn728 BUN 32 mg/dL 03/22/2017 Comp Metabolic Nyo208 B/C Ratio 21.6 Ratio 03/22/2017 Comp Metabolic Tgc526 CALCIUM 8.4 mg/dL 03/22/2017 Comp Metabolic Hof441 ALK PHOS 245 U/L 03/22/2017 Comp Metabolic Uod170 AST(SGOT) 18 U/L 03/22/2017 Comp Metabolic Ssk935 ALT(SGPT) 17 U/L 03/22/2017 Comp Metabolic Kgv772 BILI T 0.8 mg/dL 03/22/2017 Comp Metabolic Onv609 ALBUMIN 2.9 g/dL 03/22/2017 Comp Metabolic Cdg209 TPRO 6.3 g/dL 03/22/2017 Comp Metabolic Rxh656 GLOB 3.4 g/dL 03/22/2017 Comp Metabolic Ngr323 A/G Ratio 0.8 Ratio 03/22/2017 Comp Metabolic Twj834 Osmo 281 mOsmo 03/22/2017 Lipase Fef829 LIPASE 12 U/L 03/22/2017 Comp Metabolic Owh987 NA 142 mEq/L 03/09/2017 Comp Metabolic Zxd137 K 4.8 mEq/L 03/09/2017 Comp Metabolic Qkk397 CL 103 mEq/L 03/09/2017 Comp Metabolic Czd598 CO2 30.0 mEq/L 03/09/2017 Comp Metabolic Ybf849 ANION GAP 14 03/09/2017 Comp Metabolic Ijr436 GLUCOSE 152 mg/dL 03/09/2017 Comp Metabolic Kuf438 Creat 1.3 mg/dL 03/09/2017 Comp Metabolic Njf036 eGFR 56 ml/min/1.73m2 03/09/2017 Comp Metabolic Fot847 BUN 23 mg/dL 03/09/2017 Comp Metabolic Gzd597 B/C Ratio 17.3 Ratio 03/09/2017 Comp Metabolic Qip686 CALCIUM 8.5 mg/dL 03/09/2017 Comp Metabolic Snb690 ALK PHOS 97 U/L 03/09/2017 Comp Metabolic Orv088 AST(SGOT) 10 U/L 03/09/2017 Comp Metabolic Okm211 ALT(SGPT) 6 U/L 03/09/2017 Comp Metabolic Vjk993 BILI T 0.4 mg/dL 03/09/2017 Comp Metabolic Xir176 ALBUMIN 3.4 g/dL 03/09/2017 Comp Metabolic Eph714 TPRO 6.2 g/dL 03/09/2017 Comp Metabolic Whb746 GLOB 2.8 g/dL 03/09/2017 Comp Metabolic Mzz109 A/G Ratio 1.2 Ratio 03/09/2017 Comp Metabolic Hfc096 Osmo 290 mOsmo 03/09/2017 Free T4 Odf197 FREE T4 0.86 ng/dL 03/08/2017 Cbc With [...] 28.2 pg 03/08/2017 Cbc With Differential Ord2 Sampson% 8.7 % 03/08/2017 Cbc With Differential Ord2 [...] 1.63 K/ul 03/08/2017 Cbc With Differential Ord2 Sampson ABS# 0.9 K/ul 03/08/2017 Cbc With Differential Ord2 Eos ABS# 0.5 K/ul 03/08/2017 Cbc With Differential Ord2 Baso ABS# 0.0 K/ul 03/08/2017 Tsh Ord6 hTSH II 4.52 uIU/mL 03/08/2017 %Hba1C Deo733 % HbA1c 42622-6 8.5 % 03/08/2017 %Hba1C Jgp360 Gluc Ave 197 mg/dL 03/08/2017 %Hba1C Qpw834 % HbA1c 69988-1 9.8 % 12/04/2016 %Hba1C Xkc453 Gluc Ave 235 mg/dL 12/04/2016 Tsh Ord6 hTSH II 10.65 uIU/mL 11/30/2016 Comp Metabolic Nao728 NA 134 mEq/L 11/30/2016 Comp Metabolic Zqa011 K 5.0 mEq/L 11/30/2016 Comp Metabolic Pwp169 CL 95 mEq/L 11/30/2016 Comp Metabolic Yzp683 CO2 34.0 mEq/L 11/30/2016 Comp Metabolic Azl083 ANION GAP 10 11/30/2016 Comp Metabolic Ewq557 GLUCOSE 226 mg/dL 11/30/2016 Comp Metabolic Xxt315 Creat 1.3 mg/dL 11/30/2016 Comp Metabolic Ttp811 eGFR 56 ml/min/1.73m2 11/30/2016 Comp Metabolic Bhz795 BUN 21 mg/dL 11/30/2016 Comp Metabolic Uhz498 B/C Ratio 15.7 Ratio 11/30/2016 Comp Metabolic Krb167 CALCIUM 8.9 mg/dL 11/30/2016 Comp Metabolic Ilk619 ALK PHOS 112 U/L 11/30/2016 Comp Metabolic Ytc415 AST(SGOT) 9 U/L 11/30/2016 Comp Metabolic Fzj699 ALT(SGPT) 7 U/L 11/30/2016 Comp Metabolic Txs009 BILI T 0.6 mg/dL 11/30/2016 Comp Metabolic Foa644 ALBUMIN 3.6 g/dL 11/30/2016 Comp Metabolic Wzf463 TPRO 6.4 g/dL 11/30/2016 Comp Metabolic Zyh109 GLOB 2.9 g/dL 11/30/2016 Comp Metabolic Ptr506 A/G Ratio 1.2 Ratio 11/30/2016 Comp Metabolic Dnx701 Osmo 278 mOsmo 11/30/2016 Lipid Ord30 CHOL [...] 13.0 % 11/30/2016 Cbc With Differential Ord2 Sampson% 7.9 % 11/30/2016 Cbc With Differential Ord2 [...] 1.34 K/ul 11/30/2016 Cbc With Differential Ord2 Sampson ABS# 0.8 K/ul 11/30/2016 Cbc With Differential Ord2 Eos ABS# 0.3 K/ul 11/30/2016 Cbc With Differential Ord2 Baso ABS# 0.0 K/ul 11/30/2016 Free T4 Una070 FREE T4 0.89 ng/dL 11/30/2016 Review of [...] Codes Date ADMIN PNEUMOCOCCAL VACCINE SNOMED CT: 52602941 CPT-4: G0009 02/05/2018 Pneumococcal Polysaccharide Vaccine, 23-Valent, Ad CPT-4: 33911 02/05/2018 PPPS, SUBSEQ VISIT CPT -4: G0439 11/30/2017 URINALYSIS NONAUTO W/O SCOPE CPT-4: 70468 03/22/2017 URINALYSIS NONAUTO W/O SCOPE CPT-4: 36236 03/21/2017 PPPS, SUBSEQ VISIT CPT -4: G0439 11/30/2016 PNEUMOCOCCAL VACC 13 JAVIER IM Formatting Model/CDA Sections, Assigned to SNOMED CT: 43586557 CPT-4: 53241Xsejpmn 11/30/2016 ADMIN PNEUMOCOCCAL VACCINE SNOMED CT: 12882015 CPT-4: G0009 11/30/2016 Vital Signs Date Vital 10/18/2018 Blood Pressure 1: 118/70 Code : 8480-6 BMI: 39.0 Code : 95766-2 Heart Rate 1 : 86 bpm Height: 5'10" SpO2: 95% Weight: 272 lbs 10/14/2018 Blood Pressure 1: 120/56 Code : 8480-6 Heart Rate 1: 67 bpm Height: 5'10" SpO2: 92% 10/10/2018 Blood Pressure 1: 126/70 Code : 8480-6 BMI: 34.7 Code : 47339-9 Heart Rate 1 : 80 bpm Height: 5'10" SpO2: 96% Temperature: 37.1 (C) / 98.7 (F) Weight: 242 lbs 10/04/2018 Blood Pressure 1: 120/70 Code : 8480-6 Height: 5'10" SpO2: 96% 08/29/2018 Blood Pressure 1: 104/60 Code : 8480-6 BMI: 34.6 Code : 68170-6 Heart Rate 1 : 68 bpm Height: 5'10" SpO2: 98% Weight: 241 lbs 02/25/2018 Blood Pressure 1: 120/70 Code : 8480-6 BMI: 37.0 Code : 93107-4 Heart Rate 1 : 51 bpm Height: 5'10" SpO2: 97% Weight: 258 lbs 02/20/2018 Blood Pressure 1: 124/70 Code : 8480-6 BMI: 38.0 Code : 71206-6 Heart Rate 1 : 60 bpm Height: 5'10" SpO2: 96% Weight: 265 lbs 02/05/2018 Blood Pressure 1: 116/66 Code : 8480-6 BMI: 38.0 Code : 02839-0 Heart Rate 1 : 63 bpm Height: 5'10" SpO2: 98% Weight: 265 lbs 11/30/2017 Blood Pressure 1: 132/60 Code : 8480-6 BMI: 37.0 Code : 12329-8 Heart Rate 1 : 100 bpm Height: 5'10 " SpO2: 96% Waist Measure (cm): 122 cm Weight: 258 lbs 11/08/2017 Blood Pressure 1: 126/64 Code : 8480-6 BMI: 37.2 Code : 35909-3 Heart Rate 1 : 92 bpm Height: 5'10" SpO2: 94% Weight: 259 lbs 09/20/2017 Blood Pressure 1: 122/68 Code : 8480-6 BMI: 36.9 Code : 31252-9 Heart Rate 1 : 57 bpm Height: 5'10" SpO2: 96% Weight: 257 lbs 06/25/2017 Blood Pressure 1: 124/68 Code : 8480-6 BMI: 37.0 Code : 96392-3 Height: 5'10 " Weight: 258 lbs 06/07/2017 Blood Pressure 1: 122/64 Code : 8480-6 BMI: 37.0 Code : 67903-7 Heart Rate 1 : 60 bpm Height: 5'10" SpO2: 94% Temperature: 36.4 (C) / 97.6 (F) Weight: 258 lbs 05/03/2017 Blood Pressure 1: 118/74 Code : 8480-6 BMI: 38.2 Code : 35038-0 Heart Rate 1 : 52 bpm Height: 5'10" SpO2: 98% Weight: 266 lbs 04/02/2017 Blood Pressure 1: 118/62 Code : 8480-6 BMI: 38.2 Code : 24993-4 Heart Rate 1 : 53 bpm Height: 5'10" SpO2: 93% Weight: 266 lbs 03/26/2017 Blood Pressure 1: 114/62 Code : 8480-6 BMI: 38.3 Code : 19029-4 Height: 5'10 " Weight: 267 lbs 03/22/2017 Blood Pressure 1: 122/64 Code : 8480-6 BMI: 40.0 Code : 31337-6 Heart Rate 1 : 52 bpm Height: 5'10" SpO2: 94% Weight: 279 lbs 03/08/2017 Blood Pressure 1: 124/70 Code : 8480-6 BMI: 39.4 Code : 43105-6 Heart Rate 1 : 51 bpm Height: 5'10" SpO2: 94% Weight: 274 lbs 8 oz 12/06/2016 Blood Pressure 1: 126/62 Code : 8480-6 BMI: 40.3 Code : 49525-5 Heart Rate 1 : 50 bpm Height: 5'10" SpO2: 94% Weight: 281 lbs 11/30/2016 Blood Pressure 1: 112/62 Code : 8480-6 BMI: 40.3 Code : 94996-3 Heart Rate 1 : 52 bpm Height: 5'10" SpO2: 93% Waist Measure (cm): 135 cm Weight: 281 lbs 11/28/2016 Blood Pressure 1: 132/72 Code : 8480-6 BMI: 40.3 Code : 74745-8 Heart Rate 1 : 50 bpm Height: 5'10" Weight: 281 lbs 05/04/2016 Blood Pressure 1: 128/78 Code : 8480-6 BMI: 38.5 Code : 93618-2 Heart Rate 1 : 74 bpm Height: 5'10" SpO2: 98% Weight: 268 lbs 8 oz 11/04/2015 Blood Pressure 1: 136/60 Code : 8480-6 BMI: 38.0 Code : 87288-0 Heart Rate 1 : 55 bpm Height: 5'10" SpO2: 94% Weight: 265 lbs 07/30/2015 Blood Pressure 1: 128/74 Code : 8480-6 BMI: 38.0 Code : 17971-4 Heart Rate 1 : 47 bpm Height: 5'10" SpO2: 97% Weight: 265 lbs 01/26/2015 Blood Pressure 1: 122/64 Code : 8480-6 BMI: 34.0 Code : 47324-8 Heart Rate 1 : 68 bpm Height: [...] right lower limb[ICD10: L03.115] Kiki Sanchez MD, [facility] CPT-4: 36518 10/18/2018 [id number] EST. PATIENT, LEVEL III Diagnosis: Localized edema[ICD10: R60.0] Diagnosis: Cellulitis of left lower limb[ICD10: L03.116] Diagnosis: Cellulitis of right lower limb[ICD10: L03.115] Diagnosis: Chronic obstructive pulmonary disease, unspecified[ICD10: J44.9] Diagnosis: Weakness[ICD10: R53.1] Kiki Sanchez MD, [facility] CPT-4: 09377 10/14/2018 [id number] EST. PATIENT, LEVEL III Diagnosis: Localized edema[ICD10: R60.0] Diagnosis: Cellulitis of left lower limb[ICD10: L03.116] Diagnosis: Cellulitis of right lower limb[ICD10: L03.115] Kiki Sanchez MD, [facility] CPT-4: 84213 10/10/2018 ([id number]) [id number] EST. PATIENT, LEVEL IV Diagnosis: Type 2 diabetes mellitus with foot ulcer[ICD10: E11.621] Diagnosis: Essential (primary) hypertension[ICD10: I10] Diagnosis: Malignant neoplasm of prostate[ICD10: C61] Diagnosis: Chronic obstructive pulmonary disease, unspecified[ICD10: J44.9] Diagnosis: Hypoxemia[ICD10: R09.02] Sarah Sanchez MD, [facility] CPT-4: 99983 10/04/2018 ([id number]) [id number] EST. PATIENT, LEVEL IV Diagnosis: Type 2 diabetes mellitus with hyperglycemia[ICD10: E11.65] Diagnosis: Essential (primary) hypertension[ICD10: I10] Diagnosis: Malignant neoplasm of prostate[ICD10: C61] Sarah Sanchez MD, [facility] CPT-4: 86466 08/29/2018 ([id number]) 95750 EST. PATIENT, LEVEL IV Diagnosis: Malignant neoplasm of prostate[ICD10: C61] Dorene Sanchez MD, [facility] CPT-4: 84302 02/25/2018 [id number] EST. PATIENT, LEVEL IV Diagnosis: Generalized abdominal pain[ICD10: R10.84] Diagnosis: Unspecified jaundice[ICD10: R17] Diagnosis: Gross hematuria[ICD10: R31.0] Kiki Sanchez MD, [facility] CPT-4 : 59897 02/20/2018 ([id number]) 50305 EST. PATIENT, LEVEL IV Diagnosis: Type 2 diabetes mellitus with hyperglycemia[ICD10: E11.65] Diagnosis: Essential (primary) hypertension[ICD10: I10] Diagnosis: Chronic kidney disease, stage 3 (moderate)[ICD10: N18.3] Diagnosis: Chronic pain syndrome[ICD10: G89.4] Diagnosis: Other specified hypothyroidism[ICD10: E03.8] Diagnosis: Encounter for screening for malignant neoplasm of prostate[ICD10: Z12.5] Diagnosis: Encounter for immunization[ICD10: Z23] Sarah Sanchez MD, [facility] CPT-4: 68965 02/05/2018 ([id number]) 00499 EST. PATIENT, LEVEL IV Diagnosis: Type 2 diabetes mellitus with hyperglycemia[ICD10: E11.65] Diagnosis: Essential (primary) hypertension[ICD10: I10] Dorene Sanchez MD, [facility] CPT-4: 63548 11/08/2017 ([id number]) 51768 EST. PATIENT, LEVEL IV Diagnosis: Type 2 diabetes mellitus with hyperglycemia[ICD10: E11.65] Diagnosis: Chronic pain syndrome[ICD10: G89.4] Diagnosis: Essential (primary) hypertension[ICD10: I10] Diagnosis: Chronic kidney disease, stage 3 (moderate)[ICD10: N18.3] Diagnosis: Localized edema[ICD10: R60.0] Dorene Sanchez MD, [facility] CPT- 4: 70294 09/20/2017 ([id number]) 83764 EST. PATIENT, LEVEL III Diagnosis: Type 2 diabetes mellitus with hyperglycemia[ICD10: E11.65] Sarah Sanchez MD, [facility] CPT-4: 53099 06/25/2017 ([id number]) 15188 EST. PATIENT, LEVEL III Diagnosis: Cellulitis of left lower limb[ICD10: L03.116] Sarah Sanchez MD, [facility] CPT-4: 19641 06/07/2017 ([id number] 46146 EST. PATIENT, LEVEL III Diagnosis: Localized edema[ICD10: R60.0] Diagnosis: Type 2 diabetes mellitus with foot ulcer[ICD10: E11.621] Sarah Sanchez MD , [facility] CPT-4: 03375 05/03/2017 ([id number]) 13932 EST. PATIENT, LEVEL III Diagnosis: Cellulitis of left lower limb[ICD10: L03.116] Diagnosis: Localized edema[ICD10: R60.0] Sarah Sanchez MD, [facility] CPT-4: 05177 04/02/2017 ([id number]) Miscellaneous no charge Diagnosis: Localized edema[ICD10: R60.0] Diagnosis: Cellulitis of left lower limb[ICD10: L03.116] Sarah Sanchez MD, [facility] CPT-4: 28826 03/26/2017 ([id number]) 50152 EST. 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 PATIENT, LEVEL IV Diagnosis: Type 2 diabetes mellitus with hyperglycemia[ICD10: E11.65] Diagnosis: Other specified hypothyroidism[ICD10: E03.8] Diagnosis: Essential (primary) hypertension[ICD10: I10] Sarah Sanchez MD, [facility] CPT-4: 01077 03/08/2017 ([id number] 95871 EST. PATIENT, LEVEL III Diagnosis: Type 2 diabetes mellitus with hyperglycemia[ICD10: E11.65] Diagnosis: Other specified hypothyroidism[ICD10: E03.8] Sarah Sanchez MD, [facility] CPT-4: 16618 12/06/2016 ([id number]) 39627 EST. PATIENT, LEVEL IV Diagnosis: Essential (primary) hypertension[ICD10: I10] Diagnosis: Chronic kidney disease, stage 3 (moderate)[ICD10: N18.3] Dorene Sanchez MD, [facility] CPT-4: 82681 11/28/2016 ([id number]) 40500 EST. PATIENT, LEVEL IV Diagnosis: Essential (primary) hypertension[ICD10: I10] Diagnosis: Chronic pain syndrome[ICD10: G89.4] Diagnosis: Chronic kidney disease, stage 3 (moderate)[ICD10: N18.3] Diagnosis: Vitamin B12 deficiency anemia due to intrinsic factor deficiency[ ICD10: D51.0] Diagnosis: Other specified hypothyroidism[ICD10: E03.8] Dorene Sanchez MD, [facility] CPT-4: 86038 05/04/2016 21846 EST. PATIENT, LEVEL III Diagnosis: Chronic pain syndrome[ICD10: G89.4] Diagnosis: Essential (primary) hypertension[ICD10: I10] Diagnosis: Other specified hypothyroidism[ICD10: E03.8] Kiki Sanchez MD, [facility] CPT-4: 75774 11/04/2015 99323 EST. PATIENT, LEVEL III Diagnosis: Chronic pain syndrome[ICD10: G89.4] Diagnosis: Essential (primary) hypertension[ICD10: I10] Kiki Sanchez MD, [facility] CPT-4: 87147 07/30/2015 ([id number]) OFFICE/OUTPATIENT VISIT NEW Diagnosis: ESSENTIAL HYPERTENSION[ICD9: 401.9] Diagnosis: HYPOTHYROIDISM[ICD9: 244.9] Diagnosis: ANEMIA[ICD9: 285.9] Diagnosis: Vitamin B12 deficiency[ICD9: 266.2] Diagnosis: CHRONIC PAIN SYNDROME[ICD9: 338.4] Diagnosis: Chronic renal insufficiency, stage III (moderate)[ICD9: 585.3] Diagnosis: GOUT[ICD9: 274.9] [facility] CPT-4: 88147 01/26/2015 Plan of Care Planned Activity Notes [...] warmth, discharge. 10/18/2018 Appointment: [phone] [facility] ([facility] min) Complex 10/18/2018 Patient Education: Patient Medication Summary Completed [...] to weakness 10/14/2018 Appointment: Kiki Menjivar WPtel: [phone] [facility] (30 min) Complex 10/14/2018 Patient Education: [...] warmth, discharge. 10/10/2018 Appointment: Kiki Menjivar WPtel: [phone] [facility] (30 min) Complex 10/10/2018 Patient Education: Patient Medication Summary Completed 10/10/2018 Visit Plan: DM with peripheral neuropathy-paperwork completed for diabetic shoes and will fax to Dr Bauer HTN-controlled -no changes Amhxeoage-UMEY-WYV-prostate cancer with mets- patient qualifies for oxygen-oxygen saturation dropped to 86% on room air during ambulation but increased to 99% on 2L NC at rest-will send orders to [facility] for continue oxygen at 2L per nasal cannula 10/04/2018 Appointment: Sarah Hernandes WPtel: [phone] [phone] (30 min) Complex 10/04/2018 Patient Education: Patient [...] Dr Moreno 08/29/2018 Appointment: Sarah Hernandes WPtel: [facility] [phone] (15 min) Moderate 08/29/2018 Patient Education: Patient Medication Summary Completed 08/29/2018 Referral: Edgard Rivera MD WPtel: Via [address] with Dr. Moreno. Patient informed. Referral info faxed. Completed 02/27/2018 Visit Plan: Recurrent prostate cancer - I have recommended a referral to Dr. Rivera. We discussed the case at length today- he is not interested in extensive treatment, but if possible to extend his quantity and quality of life, he would like to try. 02/25/2018 Appointment: Dorene Sanchez WPtel: [facility] [place] (15 min) Moderate 02/25/2018 Patient Education: Patient Medication Summary Completed 02/25/2018 Care Plan: Referral Order SNOMED-CT : [id number] Pending 02/25/2018 Visit Plan: Intermittent abdominal pain, jaundice, itching - will check labs and treat as indicated - pt is to go to the ER with any acute change in symptoms or any acute concerns. 02/20/2018 Appointment: Kiki Menjivar WPtel: [facility] [place] (30 min) Complex 02/20/2018 Patient Education: Patient [...] previous levels of control. 02/05/2018 Appointment: [facility]eds [facility]Ptel[facility] [phone] [phone] (30 min) Complex 02/05/2018 Patient Education: [...] care surrogate. 11/30/2017 Appointment: [facility] Hern[facility]Ptel[facility] [phone] [phone] [facility] - Annual Wellness Visit 11/30/2017 Patient Education: [...] 1.2 11/08/2017 Appointment: Dorene Sanchez WPtel: [phone] [facility] (15 min) Moderate 11/08/2017 Patient Education: Patient [...] over-medication. 09/20/2017 Appointment: Dorene Sanchez WPtel: [phone] [facility] (15 min) Moderate 09/20/2017 Patient Education: Patient [...] glucose control. 06/25/2017 Appointment: Sarah Hernandes WPtel: [phone] [facility] (30 min) Complex 06/25/2017 Patient Education: Patient Medication Summary Completed 06/25/2017 Appointment: Sarah Hernandes WPtel: [facility] [place] (30 min) Complex 06/22/2017 Visit Plan: Cellulitis - start oral antibiotics as previously directed, return to clinic as previously directed, call for acute change in symptoms, worsening redness, warmth, discharge. 06/07/2017 Appointment: Sarah Hernandes WPtel: [phone] [phone] (30 min) Complex 06/07/2017 Patient Education: Patient Medication Summary Completed 06/07/2017 Patient Education: Obesity Completed 06/07/2017 Appointment: Dorene Sanchez WPtel: [facility] [place] (15 min) Moderate 05/31/2017 Visit Plan: Edema-significantly improved-no changes Ulcer- left lower leg and foot-seeing Dr Norwood at wound care-appt scheduled with Dr Frausto for vascular evaluation 05/03/2017 Appointment: Sarah Hernandes WPtel: [phone] [phone] (15 min) Moderate 05/03/2017 Patient Education: Patient Medication Summary Completed 05/03/2017 Patient Education: Obesity Completed 05/03/2017 Visit Plan: Ayygoqcjim-xlktsoerm-pqigofl to finish abx-no further treatment indicated Edema-significantly improved-no longer weeping- continue unna boots twice weekly with home health 04/02/2017 Appointment: Sarah Hernandes WPtel: [phone] [phone] (30 min) Complex 04/02/2017 Patient Education: Patient Medication Summary Completed 04/02/2017 Patient Education: Obesity Completed 04/02/2017 Visit Plan: Cellulitis-left leg-continue levaquin Edema- increase lasix/potassium-consult [facility] for unna boots/dressing changes 03/26/2017 Appointment: Sarah Hernandes WPtel: [phone] [phone] (15 min) Moderate 03/26/2017 Patient Education: Patient [...] indomethacin-stop aleve 03/22/2017 Appointment: Sarah Hernandes WPtel: [facility] [phone] (15 min) Moderate 03/22/2017 Patient Education: [...] of control. 03/08/2017 Appointment: Sarah Hernandes WPtel: [address] [place], [place] [phone] (30 min) Complex 03/08/2017 Patient Education: Patient [...] care surrogate. 11/30/2016 Appointment: Sarah Hernandes WPtel: [facility] [phone] [facility] - Annual Wellness Visit 11/30/2016 Patient Education: [...] in fluids. 11/28/2016 Appointment: Dorene Sanchez WPtel: [facility] [place] (15 min) Moderate 11/28/2016 Patient Education: Patient [...] 01/26/2015 Referral: Edgard Rivera MD WPtel: [address] Referral Appointment Requested Instructions Comment . [...] AND POTASSIUM TO TWICE DAILY [facility] -[facility]OUND [facility] . Cellulitis-left leg-continue levaquin Edema-increase lasix/potassium-consult [facility] for unna boots/dressing changes WRAP LEGS-THIGHS TO [...] YEAR SHINGLES VACCINATION TO BE ADMINISTERED AT [facility] RECOMMEND OBTAINING MEDICAL POWER OF DESKTOP ENGINEER AND LIVING WILL PATIENT DOES NOT HAVE [...] YEAR SHINGLES VACCINATION [facility] OBTAINING MEDICAL POWER OF DESKTOP ENGINEER AND LIVING WILL PATIENT DOES NOT HAVE [...] YEAR SHINGLES VACCINATION TO BE ADMINISTERED AT [facility] RECOM[facility] OBTAINING MEDICAL POWER OF DESKTOP ENGINEER AND LIVING WILL PATIENT DOES NOT HAVE [...] in symptoms, worsening redness, warmth, discharge. . Aayeldxxaz-yuyipashk-hhvvbhq to finish abx-no further treatment indicated Edema-significantly [...] fax to Dr Bauer HTN-controlled -no changes Ajbqsyhql-NQPH-FPW-prostate cancer with mets- patient qualifies for oxygen- oxygen saturation dropped to 86% on room air during ambulation but increased to 99% on 2L NC at rest-will send orders to [facility] for continue oxygen at 2L per nasal cannula . Intermittent abdominal pain, jaundice, itching - will check labs and treat as indicated - pt is to go to the ER with any acute change in symptoms or any acute concerns.
[2018-11-26 11:20] VITALS: BP 128/64
--- OUTSIDE RECORDS SUMMARY | 2018-11-26 11:22 | XMS REPORT | CCD ---
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 Name Role Phone PP Unavailable CCM Unavailable Summary Purpose Interface Exchange Insurance Providers Payer name Policy type / Coverage type Covered green party ID Effective Begin Date Effective End Date WPS Medicare Part B Medicare Part B [id number] Unknown Unknown Family history Father Diagnosis Age At Onset Stroke Unknown Mother Diagnosis Age At Onset Stroke Unknown Diabetes mellitus Type 2 Unknown Social History Social History Element Codes Description Effective Dates Tobacco history SNOMED CT: 115369014 Currently uses smokeless tobacco Chews 05/04/2016 Marital status Unknown 01/26/2015 Number of children Unknown 3 01/26/2015 Employment Unknown Retired 01/26/[address]: 068355289 Never drinks alcohol quit in July 2014 [...] Fill Instructions Keflex 500 mg capsule RxNorm: 728430 1 Capsule(s) PO QID 201810/31/2018 Active Probiotic 10 billion cell capsule RxNorm: 6028271 1 Capsule(s) PO BID 10/25/2018 10/31/2018 Active Probiotic 10 billion cell capsule RxNorm: 3532131 1 Capsule(s) PO BID 10/25/2018 10/24/2018 Inactive oxycodone 20 mg tablet RxNorm: 5556633 1/2 Tablet(s) PO Q6 as needed 10/14/2018 11/12/2018 Active potassium chloride ER 10 mEq tablet,extended release RxNorm: 505281 1 Tablet(s) PO daily 10/10/2018 11/08/2018 Active Lasix 20 mg tablet RxNorm: 075096 1 Tablet(s) PO BID 201804/07/2019 Active Keflex 500 mg capsule RxNorm: 861551 1 Capsule(s) PO TID 201810/19/2018 Inactive albuterol sulfate 2.5 mg/3 mL (0.083 %) solution for nebulization RxNorm: 462297 1 Milliliter(s) INH TID DX J44.9 10/04/2018 01/31/2019 Active gabapentin 100 mg capsule RxNorm: 929303 TAKE ONE CAPSULE BY MOUTH IN THE EVENING AT 5PM 09/24/2018 03/22/2019 Active oxycodone 20 mg tablet RxNorm: 3183499 1/2 Tablet(s) PO Q6 as needed 09/12/2018 10/11/2018 Inactive oxycodone 20 mg tablet RxNorm: 0694968 1/2 Tablet(s) PO Q6 as needed 08/15/2018 09/11/2018 Inactive oxycodone 20 mg tablet RxNorm: 6520300 1/2 Tablet(s) PO Q6 as needed 07/16/2018 08/14/2018 Inactive oxycodone 20 mg tablet RxNorm: 5802750 1/2 Tablet(s) PO Q6 as needed 06/14/2018 07/13/2018 Inactive gabapentin 100 mg capsule RxNorm: 500054 TAKE ONE CAPSULE BY MOUTH IN THE EVENING AT 5PM 05/30/2018 09/23/2018 Inactive oxycodone 20 mg tablet RxNorm: 2977307 1/2 Tablet(s) PO Q6 as needed 05/15/2018 06/13/2018 Inactive oxycodone 20 mg tablet RxNorm: 7560398 1/2 Tablet(s) PO Q6 as needed 04/12/2018 05/11/2018 Inactive oxycodone 20 mg tablet RxNorm: 2515529 1/2 Tablet(s) PO Q6 as needed 03/11/2018 04/09/2018 Inactive levothyroxine 200 mcg tablet RxNorm: 151969 1 Tablet(s) PO daily 02/21/2018 02/15/2019 Active Cipro 500 mg tablet RxNorm: 038064 1 Tablet(s) PO BID 201702/20/2018 Inactive levothyroxine 200 mcg tablet RxNorm: 627921 1 Tablet(s) PO daily 02/21/2018 02/20/2018 Inactive Cipro 500 mg tablet RxNorm: 692499 1 Tablet(s) PO BID 201703/02/2018 Inactive oxycodone 20 mg tablet RxNorm: 9229796 1/2 Tablet(s) PO Q6 as needed 02/12/2018 03/10/2018 Inactive oxycodone 20 mg tablet RxNorm: 2177474 1/2 Tablet(s) PO Q6 as needed 01/16/2018 02/11/2018 Inactive gabapentin 100 mg capsule RxNorm: 855424 TAKE ONE CAPSULE BY MOUTH IN THE EVENING AT 5PM 01/15/2018 05/29/2018 Inactive bisoprolol 5 mg-hydrochlorothiazide 6.25 mg tablet RxNorm: 915674 TAKE ONE TABLET BY MOUTH DAILY 01/01/2018 12/26/2018 Active oxycodone 20 mg tablet RxNorm: 3904180 1/2 Tablet(s) PO Q6 as needed 12/20/2017 01/14/2018 Inactive oxycodone 20 mg tablet RxNorm: 4159080 1/2 Tablet(s) PO Q6 as needed 11/20/2017 12/19/2017 Inactive Victoza 2-Dino 0.6 mg/0.1 mL (18 mg/3 mL) subcutaneous pen injector RxNorm: 800958 1.2 Milligram(s) SQ daily 11/08/201712/07 Inactive oxycodone 20 mg tablet RxNorm: 5702692 1/2 Tablet(s) PO Q6 as needed 10/19/2017 11/17/2017 Inactive gabapentin 100 mg capsule RxNorm: 799007 1 Capsule(s) PO QPM at 5 pm 09/20/2017 01/14/2018 Inactive Lasix 20 mg tablet RxNorm: 901595 1 Tablet(s) QAM at 5pm 12/201703/18/2018 Inactive oxycodone 20 mg tablet RxNorm: 3504923 1/2 Tablet(s) PO Q6 as needed 09/18/2017 10/17/2017 Inactive oxycodone 20 mg tablet RxNorm: 3174896 1/2 Tablet(s) PO Q6 as needed 08/14/2017 09/12/2017 Inactive ketoconazole 2 % topical cream RxNorm: 236937 1 Gram(s) TOP BID to affected area until healed 08/03/2017 No Stop Date Active oxycodone 20 mg tablet RxNorm: 5449289 1/2 Tablet(s) PO Q6 as needed 07/17/2017 08/13/2017 Inactive pen needle, diabetic 31 gauge x 5/16" RxNorm: 1 Unit Dose Miscellaneous daily 06/25/2017 03/21/2018 Inactive daily use with victoza Bactrim DS 800 mg-160 mg tablet RxNorm: 667227 1 Tablet(s) PO BID Dr Norwood 06/25/2017 07/04/2017 Inactive Victoza 2-Dino 0.6 mg/0.1 mL (18 mg/3 mL) subcutaneous pen injector RxNorm: 834788 0.6 Milligram(s) SQ daily 06/25/201707/24 Inactive doxycycline hyclate 100 mg tablet RxNorm: 618026 1 Tablet(s) PO BID Dr Norwood 06/21/2017 06/30/2017 Inactive oxycodone 20 mg tablet RxNorm: 3353089 1/2 Tablet(s) PO Q6 as needed 06/14/2017 07/13/2017 Inactive clindamycin 150 mg capsule RxNorm: 081270 1 Capsule(s) PO Q8 06/16/2017 Inactive levothyroxine 175 mcg tablet RxNorm: 820603 TAKE ONE TABLET BY MOUTH DAILY 06/04/2017 09/01/2017 Inactive levothyroxine 175 mcg tablet RxNorm: 810346 TAKE ONE TABLET BY MOUTH DAILY 06/04/2017 11/30/2017 Inactive bisoprolol 5 mg-hydrochlorothiazide 6.25 mg tablet RxNorm: 855362 TAKE ONE TABLET BY MOUTH DAILY 05/24/2017 11/19/2017 Inactive oxycodone 20 mg tablet RxNorm: 4080524 1/2 Tablet(s) PO Q6 as needed 05/14/2017 06/12/2017 Inactive potassium chloride ER 10 mEq capsule,extended release RxNorm: 172630 TAKE ONE CAPSULE BY MOUTH DAILY NEEDED FOR 5 DAYS THEN NEEDED WITH LASIX 04/17/2017 10/13/2017 Inactive Lasix 20 mg tablet RxNorm: 589891 TAKE ONE TABLET BY MOUTH DAILY NEEDED 04/17/2017 09/19/2017 Inactive oxycodone 20 mg tablet RxNorm: 6503986 1/2 Tablet(s) PO Q6 as needed 04/12/2017 05/11/2017 Inactive Colcrys 0.6 mg tablet RxNorm: 326759 2 tabs at onset then may repeat 1 tab in 1 hours if needed- Tablet(s) PO 04/09/2017 No Stop Date Active then take daily until gout resolved Bactrim DS 800 mg-160 mg tablet RxNorm: 031351 1 Tablet(s) PO BID 04/09/2017 04/08/2017 Inactive dc levaquin Bactrim DS 800 mg-160 mg tablet RxNorm: 864025 1 Tablet(s) PO BID 04/09/2017 04/15/2017 Inactive dc levaquin Levaquin 500 mg tablet RxNorm: 463318 1 Tablet(s) PO daily 04/02/2017 Inactive Levaquin 500 mg tablet RxNorm: 607657 1 Tablet(s) PO daily 06/06/2017 Inactive indomethacin 25 mg capsule RxNorm: 918795 1 Capsule(s) PO TID PRN 03/22/2017 03/22/2017 Inactive Lasix 20 mg tablet RxNorm: 156732 1 Tablet(s) PO QDAY PRN 02/201704/16/2017 Inactive daily x 5 days then as needed Levaquin 500 mg tablet RxNorm: 121813 1 Tablet(s) PO daily 02/201703/31/2017 Inactive potassium chloride ER 10 mEq capsule,extended release RxNorm: 212008 1 Capsule(s) PO QDAY PRN 03/22/2017 04/16/2017 Inactive daily x 5 days then as needed with lasix oxycodone 20 mg tablet RxNorm: 7204268 1/2 Tablet(s) PO Q6 as needed 03/08/2017 04/06/2017 Inactive bisoprolol 5 mg-hydrochlorothiazide 6.25 mg tablet RxNorm: 411595 TAKE ONE TABLET BY MOUTH DAILY 02/14/2017 05/14/2017 Inactive oxycodone 20 mg tablet RxNorm: 6696505 1/2 Tablet(s) PO Q6 as needed 02/08/2017 03/07/2017 Inactive oxycodone 20 mg tablet RxNorm: 6010543 1/2 Tablet(s) PO Q6 as needed 01/08/2017 02/06/2017 Inactive levothyroxine 175 mcg tablet RxNorm: 245559 1 Tablet(s) PO daily 12/06/2016 06/03/2017 Inactive [SAVINGS FOR NON-COVERED DRUGS -- BIN:730458, PCN: ASPROD1, Group: XXXXX, ID# XXXXXXX, Questions: . THIS IS NOT INSURANCE.] oxycodone 20 mg tablet RxNorm: 3198685 1/2 Tablet(s) PO Q6 as needed 12/04/2016 01/02/2017 Inactive oxycodone 20 mg tablet RxNorm: 7299562 1/2 Tablet(s) PO Q6 as needed 11/09/2016 12/03/2016 Inactive bisoprolol 5 mg-hydrochlorothiazide 6.25 mg tablet RxNorm: 633013 TAKE ONE TABLET BY MOUTH DAILY 11/08/2016 02/05/2017 Inactive oxycodone 20 mg tablet RxNorm: 6182979 1/2 Tablet(s) PO Q6 as needed 10/05/2016 11/03/2016 Inactive oxycodone 20 mg tablet RxNorm: 7749212 1/2 Tablet(s) PO Q6 as needed 09/06/2016 10/04/2016 Inactive oxycodone 20 mg tablet RxNorm: 5267975 1/2 Tablet(s) PO Q6 as needed 08/07/2016 09/05/2016 Inactive oxycodone 20 mg tablet RxNorm: 3711542 1/2 Tablet(s) PO Q6 as needed 07/04/2016 08/06/2016 Inactive oxycodone 20 mg tablet RxNorm: 7486996 1/2 Tablet(s) PO Q6 as needed 05/29/2016 07/03/2016 Inactive levothyroxine 150 mcg tablet RxNorm: 334521 1 Tablet(s) PO daily 04/10/2016 04/09/2016 Inactive [SAVINGS FOR NON-COVERED DRUGS -- BIN:[id number], PCN: ASPROD1, Group: XXXXX, ID# XXXXXXX, Questions: . THIS IS NOT INSURANCE.] oxycodone 20 mg tablet RxNorm: 1801600 1/2 Tablet(s) PO Q6 as needed 04/10/2016 05/28/2016 Inactive levothyroxine 150 mcg tablet RxNorm: 665682 1 Tablet(s) PO daily 04/10/2016 10/06/2016 Inactive [SAVINGS FOR NON-COVERED DRUGS -- BIN:812786, PCN: ASPROD1, Group: XXXXX, ID# XXXXXXX, Questions: . THIS IS NOT INSURANCE.] bisoprolol 5 mg-hydrochlorothiazide 6.25 mg tablet RxNorm: 937168 1 Tablet(s) PO daily 02/16/2016 12/31/2017 Inactive oxycodone 20 mg tablet RxNorm: 1747712 1/2 Tablet(s) PO Q6 as needed 02/16/2016 04/09/2016 Inactive oxycodone 20 mg tablet RxNorm: 4020027 1/2 Tablet(s) PO Q6 as needed 01/04/2016 02/15/2016 Inactive bisoprolol 5 mg-hydrochlorothiazide 6.25 mg tablet RxNorm: 854176 1 Tablet(s) PO daily 11/19/2015 01/17/2016 Inactive bisoprolol 5 mg-hydrochlorothiazide 6.25 mg tablet RxNorm: 876895 1 Tablet(s) PO daily 11/04/2015 11/18/2015 Inactive oxycodone 20 mg tablet RxNorm: 5265966 1/2 Tablet(s) PO Q6 as needed 10/27/2015 01/03/2016 Inactive levothyroxine 150 mcg tablet RxNorm: 397435 1 Tablet(s) PO daily 08/26/2015 02/21/2016 Inactive [SAVINGS FOR NON-COVERED DRUGS -- BIN:[id number], PCN: ASPROD1, Group: XXXXX, ID# XXXXXXX, Questions: . THIS IS NOT INSURANCE.] bisoprolol 5 mg-hydrochlorothiazide 6.25 mg tablet RxNorm: 034556 1 Tablet(s) PO daily 08/26/2015 10/24/2015 Inactive oxycodone 10 mg tablet RxNorm: 6908489 1 Tablet(s) PO Q6 as needed 05/06/2015 10/26/2015 Inactive levothyroxine 150 mcg tablet RxNorm: 091518 1 Tablet(s) PO daily 02/05/2015 08/03/2015 Inactive [SAVINGS FOR NON-COVERED DRUGS -- BIN:092646, PCN: ASPROD1, Group: XXXXX, ID# XXXXXXX, Questions: . THIS IS NOT INSURANCE.] Vitamin D2 50,000 unit capsule RxNorm: 320512 1 Capsule(s) PO weekly 02/05/2015 05/05/2015 Inactive [SAVINGS FOR NON-COVERED DRUGS -- BIN:914275, PCN: ASPROD1, Group: XXXXX, ID# XXXXXXX, Questions: . THIS IS NOT INSURANCE.] Vitamin D2 50,000 unit capsule RxNorm: 609040 1 Capsule(s) PO weekly 02/05/2015 02/04/2015 Inactive bisoprolol 5 mg-hydrochlorothiazide 6.25 mg tablet RxNorm: 459314 1 Tablet(s) PO daily 01/26/2015 02/24/2015 Inactive levothyroxine 200 mcg tablet RxNorm: 044492 1 Tablet(s) PO daily 01/26/2015 01/25/2015 Inactive levothyroxine 200 mcg tablet RxNorm: 060518 1 Tablet(s) PO every other day 01/26/2015 02/04/2015 Inactive [SAVINGS FOR NON-COVERED DRUGS -- BIN:973216, PCN: ASPROD1, Group: XXXXX, ID# XXXXXXX, Questions: . THIS IS NOT INSURANCE.] aspirin 81 mg chewable tablet RxNorm: 276370 1 Tablet(s) PO daily No Start Date Active Plavix 75 mg tablet RxNorm: 675101 1 Tablet(s) PO daily manage by Dr Baig No Start Date Active simvastatin 40 mg tablet RxNorm: 927475 1 Tablet(s) PO QHS managed by Dr Baig No Start Date Active Colcrys 0.6 mg tablet RxNorm: 281446 2 tabs at onset then may repeat 1 tab in 1 hours if needed- Tablet(s) PO No Start Date 04/08/2017 Inactive then take daily until gout resolved aspirin 325 mg tablet RxNorm: 216455 1 Tablet(s) PO daily No Start Date 05/03/2016 Inactive levothyroxine 75 mcg tablet RxNorm: 042025 1 Tablet(s) PO every other day No Start Date 02/04/2015 Inactive takes qod with 200mcg oxycodone 10 mg tablet RxNorm: 7758848 1 Tablet(s) PO Q6 as needed No Start Date 05/05/2015 Inactive ketoconazole 2 % topical cream RxNorm: 564934 1 Gram(s) TOP BID to affected area [...] Code Item Item Code Result Date %Hba1C Bxd067 % HbA1c 80518-8 6.4 % 08/30/2018 %Hba1C Ylw008 Gluc Ave 137 mg/dL 08/30/2018 Culture Urine [id number] URINE CULTURE SEE NOTES 02/22/2018 Urine Culture [...] 24.5 pg 02/20/2018 Cbc With Differential Ord2 [place]% 8.9 % 02/20/2018 Cbc With Differential Ord2 [...] 0.81 K/ul 02/20/2018 Cbc With Differential Ord2 [place] ABS# 0.7 K/ul 02/20/2018 Cbc With Differential Ord2 Eos ABS# 0.4 K/ul 02/20/2018 Cbc With Differential Ord2 Baso ABS# 0.0 K/ul 02/20/2018 %Hba1C Sej364 % HbA1c 26485-4 7.7 % 02/20/2018 %Hba1C Nqu311 Gluc Ave 174 mg/dL 02/20/2018 Lipase Pwk544 LIPASE 17 U/L 02/20/2018 Microalbumin Oyx167 MicroAlb 6.5 mg/dL 02/20/2018 Amylase Ord34 AMYLASE 15 U/L 02/20/2018 Free T4 Kxr402 FREE T4 0.61 ng/dL 02/20/2018 Lipid Ord30 CHOL 203 mg/dL 02/20/2018 Lipid Ord30 HDL 7.0 mg/dl 02/20/2018 Lipid Ord30 TRIG 271 mg/dL 02/20/2018 Lipid Ord30 LDL 142 mg/dL 02/20/2018 Lipid Ord30 C/HDL 29.0 Ratio 02/20/2018 Comp Metabolic Xko563 NA 134 mEq/L 02/20/2018 Comp Metabolic Uas048 K 3.6 mEq/L 02/20/2018 Comp Metabolic Okm103 CL 96 mEq/L 02/20/2018 Comp Metabolic Bzr721 CO2 29.0 mEq/L 02/20/2018 Comp Metabolic Rin479 ANION GAP 13 02/20/2018 Comp Metabolic Kom967 GLUCOSE 165 mg/dL 02/20/2018 Comp Metabolic Mjd805 Creat 1.2 mg/dL 02/20/2018 Comp Metabolic Rrz880 eGFR 63 ml/min/1.73m2 02/20/2018 Comp Metabolic Jis034 BUN 14 mg/dL 02/20/2018 Comp Metabolic Pfd658 B/C Ratio 11.6 Ratio 02/20/2018 Comp Metabolic Jst248 CALCIUM 8.5 mg/dL 02/20/2018 Comp Metabolic Khx767 ALK PHOS 633 U/L 02/20/2018 Comp Metabolic Nxz775 AST(SGOT) 112 U/L 02/20/2018 Comp Metabolic Pjw374 ALT(SGPT) 148 U/L 02/20/2018 Comp Metabolic Mao992 BILI T 6.8 mg/dL 02/20/2018 Comp Metabolic Sag823 ALBUMIN 3.3 g/dL 02/20/2018 Comp Metabolic Jbe816 TPRO 5.9 g/dL 02/20/2018 Comp Metabolic Tmn210 GLOB 2.6 g/dL 02/20/2018 Comp Metabolic Jzw220 A/G Ratio 1.3 Ratio 02/20/2018 Comp Metabolic Imn097 Osmo 272 mOsmo 02/20/2018 Total Psa Ord10 [...] Metabolic Ord15 CALCIUM 9.2 mg/dL 11/09/2017 %Hba1C Uip497 % HbA1c 36684-6 8.0 % 11/09/2017 %Hba1C Tlo172 Gluc Ave 183 mg/dL 11/09/2017 Metabolic Ord15 [...] Ord15 CALCIUM 8.7 mg/dL 06/25/2017 Culture Wound [id number] WOUND CULTURE SEE NOTES 04/09/2017 Culture Wound [id number] Continued Results 04/09/2017 Amylase Ord34 AMYLASE 19 [...] 27.9 pg 03/22/2017 Cbc With Differential Ord2 [place]% 8.3 % 03/22/2017 Cbc With Differential Ord2 [...] 1.35 K/ul 03/22/2017 Cbc With Differential Ord2 [place] ABS# 1.4 K/ul 03/22/2017 Cbc With Differential Ord2 Eos ABS# 0.2 K/ul 03/22/2017 Cbc With Differential Ord2 Baso ABS# 0.0 K/ul 03/22/2017 Comp Metabolic Uym283 NA 134 mEq/L 03/22/2017 Comp Metabolic Cny027 K 4.5 mEq/L 03/22/2017 Comp Metabolic Zkg044 CL 93 mEq/L 03/22/2017 Comp Metabolic Efq132 CO2 31.0 mEq/L 03/22/2017 Comp Metabolic Ype470 ANION GAP 15 03/22/2017 Comp Metabolic Iud963 GLUCOSE 198 mg/dL 03/22/2017 Comp Metabolic Gnl405 Creat 1.5 mg/dL 03/22/2017 Comp Metabolic Het820 eGFR 50 ml/min/1.73m2 03/22/2017 Comp Metabolic Lti577 BUN 32 mg/dL 03/22/2017 Comp Metabolic Dcd303 B/C Ratio 21.6 Ratio 03/22/2017 Comp Metabolic Yte406 CALCIUM 8.4 mg/dL 03/22/2017 Comp Metabolic Vvd949 ALK PHOS 245 U/L 03/22/2017 Comp Metabolic Oeu867 AST(SGOT) 18 U/L 03/22/2017 Comp Metabolic Wun954 ALT(SGPT) 17 U/L 03/22/2017 Comp Metabolic Yxl118 BILI T 0.8 mg/dL 03/22/2017 Comp Metabolic Wed429 ALBUMIN 2.9 g/dL 03/22/2017 Comp Metabolic Iqo225 TPRO 6.3 g/dL 03/22/2017 Comp Metabolic Ubr852 GLOB 3.4 g/dL 03/22/2017 Comp Metabolic Jgu499 A/G Ratio 0.8 Ratio 03/22/2017 Comp Metabolic Vkg861 Osmo 281 mOsmo 03/22/2017 Lipase Mlh648 LIPASE 12 U/L 03/22/2017 Comp Metabolic Kja988 NA 142 mEq/L 03/09/2017 Comp Metabolic Cac457 K 4.8 mEq/L 03/09/2017 Comp Metabolic Kwu949 CL 103 mEq/L 03/09/2017 Comp Metabolic Mlv527 CO2 30.0 mEq/L 03/09/2017 Comp Metabolic Fff935 ANION GAP 14 03/09/2017 Comp Metabolic Vje455 GLUCOSE 152 mg/dL 03/09/2017 Comp Metabolic Mky006 Creat 1.3 mg/dL 03/09/2017 Comp Metabolic Mgi079 eGFR 56 ml/min/1.73m2 03/09/2017 Comp Metabolic Uvp061 BUN 23 mg/dL 03/09/2017 Comp Metabolic Wvh092 B/C Ratio 17.3 Ratio 03/09/2017 Comp Metabolic Hbf773 CALCIUM 8.5 mg/dL 03/09/2017 Comp Metabolic Xyn469 ALK PHOS 97 U/L 03/09/2017 Comp Metabolic Iwv645 AST(SGOT) 10 U/L 03/09/2017 Comp Metabolic Bwo937 ALT(SGPT) 6 U/L 03/09/2017 Comp Metabolic Qih898 BILI T 0.4 mg/dL 03/09/2017 Comp Metabolic Pro313 ALBUMIN 3.4 g/dL 03/09/2017 Comp Metabolic Brv525 TPRO 6.2 g/dL 03/09/2017 Comp Metabolic Fsm210 GLOB 2.8 g/dL 03/09/2017 Comp Metabolic Qak446 A/G Ratio 1.2 Ratio 03/09/2017 Comp Metabolic Swi994 Osmo 290 mOsmo 03/09/2017 Free T4 Ecn691 FREE T4 0.86 ng/dL 03/08/2017 Cbc With [...] 28.2 pg 03/08/2017 Cbc With Differential Ord2 [place]% 8.7 % 03/08/2017 Cbc With Differential Ord2 [...] 1.63 K/ul 03/08/2017 Cbc With Differential Ord2 [place] ABS# 0.9 K/ul 03/08/2017 Cbc With Differential Ord2 Eos ABS# 0.5 K/ul 03/08/2017 Cbc With Differential Ord2 Baso ABS# 0.0 K/ul 03/08/2017 Tsh Ord6 hTSH II 4.52 uIU/mL 03/08/2017 %Hba1C Wrb485 % HbA1c 88704-2 8.5 % 03/08/2017 %Hba1C Lsb509 Gluc Ave 197 mg/dL 03/08/2017 %Hba1C Dfh536 % HbA1c 60034-9 9.8 % 12/04/2016 %Hba1C Hvp895 Gluc Ave 235 mg/dL 12/04/2016 Tsh Ord6 hTSH II 10.65 uIU/mL 11/30/2016 Comp Metabolic Nte731 NA 134 mEq/L 11/30/2016 Comp Metabolic Yui789 K 5.0 mEq/L 11/30/2016 Comp Metabolic Vvs828 CL 95 mEq/L 11/30/2016 Comp Metabolic Gnp420 CO2 34.0 mEq/L 11/30/2016 Comp Metabolic Edi739 ANION GAP 10 11/30/2016 Comp Metabolic Axs844 GLUCOSE 226 mg/dL 11/30/2016 Comp Metabolic Lgg580 Creat 1.3 mg/dL 11/30/2016 Comp Metabolic Dfz977 eGFR 56 ml/min/1.73m2 11/30/2016 Comp Metabolic Bxm073 BUN 21 mg/dL 11/30/2016 Comp Metabolic Dbh519 B/C Ratio 15.7 Ratio 11/30/2016 Comp Metabolic Kct681 CALCIUM 8.9 mg/dL 11/30/2016 Comp Metabolic Gcf911 ALK PHOS 112 U/L 11/30/2016 Comp Metabolic Alw778 AST(SGOT) 9 U/L 11/30/2016 Comp Metabolic Dqf611 ALT(SGPT) 7 U/L 11/30/2016 Comp Metabolic Aic149 BILI T 0.6 mg/dL 11/30/2016 Comp Metabolic Xvj355 ALBUMIN 3.6 g/dL 11/30/2016 Comp Metabolic Lyx034 TPRO 6.4 g/dL 11/30/2016 Comp Metabolic Vne655 GLOB 2.9 g/dL 11/30/2016 Comp Metabolic Qbk912 A/G Ratio 1.2 Ratio 11/30/2016 Comp Metabolic Ehd748 Osmo 278 mOsmo 11/30/2016 Lipid Ord30 CHOL [...] 13.0 % 11/30/2016 Cbc With Differential Ord2 [place]% 7.9 % 11/30/2016 Cbc With Differential Ord2 [...] 1.34 K/ul 11/30/2016 Cbc With Differential Ord2 [place] ABS# 0.8 K/ul 11/30/2016 Cbc With Differential Ord2 Eos ABS# 0.3 K/ul 11/30/2016 Cbc With Differential Ord2 Baso ABS# 0.0 K/ul 11/30/2016 Free T4 Qep242 FREE T4 0.89 ng/dL 11/30/2016 Review of [...] Codes Date ADMIN PNEUMOCOCCAL VACCINE SNOMED CT: 10869138 CPT-4: G0009 02/05/2018 Pneumococcal Polysaccharide Vaccine, 23-Valent, Ad CPT-4: 19112 02/05/2018 PPPS, SUBSEQ VISIT CPT -4: G0439 11/30/2017 URINALYSIS NONAUTO W/O SCOPE CPT-4: 26049 03/22/2017 URINALYSIS NONAUTO W/O SCOPE CPT-4: 56603 03/21/2017 PPPS, SUBSEQ VISIT CPT -4: G0439 11/30/2016 PNEUMOCOCCAL VACC 13 JAVIER IM Formatting Model/CDA Sections, Assigned to SNOMED CT: 23343037 CPT-4: 02254Kdoqhyo 11/30/2016 ADMIN PNEUMOCOCCAL VACCINE SNOMED CT: 73285064 CPT-4: G0009 11/30/2016 Vital Signs Date Vital 10/18/2018 Blood Pressure 1: 118/70 Code : 8480-6 BMI: 39.0 Code : 30405-7 Heart Rate 1 : 86 bpm Height: 5'10" SpO2: 95% Weight: 272 lbs 10/14/2018 Blood Pressure 1: 120/56 Code : 8480-6 Heart Rate 1: 67 bpm Height: 5'10" SpO2: 92% 10/10/2018 Blood Pressure 1: 126/70 Code : 8480-6 BMI: 34.7 Code : 94001-3 Heart Rate 1 : 80 bpm Height: 5'10" SpO2: 96% Temperature: 37.1 (C) / 98.7 (F) Weight: 242 lbs 10/04/2018 Blood Pressure 1: 120/70 Code : 8480-6 Height: 5'10" SpO2: 96% 08/29/2018 Blood Pressure 1: 104/60 Code : 8480-6 BMI: 34.6 Code : 57906-3 Heart Rate 1 : 68 bpm Height: 5'10" SpO2: 98% Weight: 241 lbs 02/25/2018 Blood Pressure 1: 120/70 Code : 8480-6 BMI: 37.0 Code : 94298-9 Heart Rate 1 : 51 bpm Height: 5'10" SpO2: 97% Weight: 258 lbs 02/20/2018 Blood Pressure 1: 124/70 Code : 8480-6 BMI: 38.0 Code : 27264-8 Heart Rate 1 : 60 bpm Height: 5'10" SpO2: 96% Weight: 265 lbs 02/05/2018 Blood Pressure 1: 116/66 Code : 8480-6 BMI: 38.0 Code : 73658-3 Heart Rate 1 : 63 bpm Height: 5'10" SpO2: 98% Weight: 265 lbs 11/30/2017 Blood Pressure 1: 132/60 Code : 8480-6 BMI: 37.0 Code : 59987-7 Heart Rate 1 : 100 bpm Height: 5'10 " SpO2: 96% Waist Measure (cm): 122 cm Weight: 258 lbs 11/08/2017 Blood Pressure 1: 126/64 Code : 8480-6 BMI: 37.2 Code : 53502-3 Heart Rate 1 : 92 bpm Height: 5'10" SpO2: 94% Weight: 259 lbs 09/20/2017 Blood Pressure 1: 122/68 Code : 8480-6 BMI: 36.9 Code : 65524-7 Heart Rate 1 : 57 bpm Height: 5'10" SpO2: 96% Weight: 257 lbs 06/25/2017 Blood Pressure 1: 124/68 Code : 8480-6 BMI: 37.0 Code : 63372-9 Height: 5'10 " Weight: 258 lbs 06/07/2017 Blood Pressure 1: 122/64 Code : 8480-6 BMI: 37.0 Code : 28539-0 Heart Rate 1 : 60 bpm Height: 5'10" SpO2: 94% Temperature: 36.4 (C) / 97.6 (F) Weight: 258 lbs 05/03/2017 Blood Pressure 1: 118/74 Code : 8480-6 BMI: 38.2 Code : 87023-1 Heart Rate 1 : 52 bpm Height: 5'10" SpO2: 98% Weight: 266 lbs 04/02/2017 Blood Pressure 1: 118/62 Code : 8480-6 BMI: 38.2 Code : 56860-9 Heart Rate 1 : 53 bpm Height: 5'10" SpO2: 93% Weight: 266 lbs 03/26/2017 Blood Pressure 1: 114/62 Code : 8480-6 BMI: 38.3 Code : 12320-3 Height: 5'10 " Weight: 267 lbs 03/22/2017 Blood Pressure 1: 122/64 Code : 8480-6 BMI: 40.0 Code : 18755-5 Heart Rate 1 : 52 bpm Height: 5'10" SpO2: 94% Weight: 279 lbs 03/08/2017 Blood Pressure 1: 124/70 Code : 8480-6 BMI: 39.4 Code : 84332-3 Heart Rate 1 : 51 bpm Height: 5'10" SpO2: 94% Weight: 274 lbs 8 oz 12/06/2016 Blood Pressure 1: 126/62 Code : 8480-6 BMI: 40.3 Code : 76264-3 Heart Rate 1 : 50 bpm Height: 5'10" SpO2: 94% Weight: 281 lbs 11/30/2016 Blood Pressure 1: 112/62 Code : 8480-6 BMI: 40.3 Code : 80541-3 Heart Rate 1 : 52 bpm Height: 5'10" SpO2: 93% Waist Measure (cm): 135 cm Weight: 281 lbs 11/28/2016 Blood Pressure 1: 132/72 Code : 8480-6 BMI: 40.3 Code : 32378-6 Heart Rate 1 : 50 bpm Height: 5'10" Weight: 281 lbs 05/04/2016 Blood Pressure 1: 128/78 Code : 8480-6 BMI: 38.5 Code : 85513-3 Heart Rate 1 : 74 bpm Height: 5'10" SpO2: 98% Weight: 268 lbs 8 oz 11/04/2015 Blood Pressure 1: 136/60 Code : 8480-6 BMI: 38.0 Code : 13434-4 Heart Rate 1 : 55 bpm Height: 5'10" SpO2: 94% Weight: 265 lbs 07/30/2015 Blood Pressure 1: 128/74 Code : 8480-6 BMI: 38.0 Code : 34485-3 Heart Rate 1 : 47 bpm Height: 5'10" SpO2: 97% Weight: 265 lbs 01/26/2015 Blood Pressure 1: 122/64 Code : 8480-6 BMI: 34.0 Code : 76033-2 Heart Rate 1 : 68 bpm Height: [...] right lower limb[ICD10: L03.115] Kiki Sanchez MD, [facility] CPT-4: 83444 10/18/2018 [id number] EST. PATIENT, LEVEL III Diagnosis: Localized edema[ICD10: R60.0] Diagnosis: Cellulitis of left lower limb[ICD10: L03.116] Diagnosis: Cellulitis of right lower limb[ICD10: L03.115] Diagnosis: Chronic obstructive pulmonary disease, unspecified[ICD10: J44.9] Diagnosis: Weakness[ICD10: R53.1] Kiki Sanchez MD, [facility] CPT-4: 71703 10/14/2018 [id number] EST. PATIENT, LEVEL III Diagnosis: Localized edema[ICD10: R60.0] Diagnosis: Cellulitis of left lower limb[ICD10: L03.116] Diagnosis: Cellulitis of right lower limb[ICD10: L03.115] Kiki Sanchez MD, [facility] CPT-4: 00211 10/10/2018 ([id number]) [id number] EST. PATIENT, LEVEL IV Diagnosis: Type 2 diabetes mellitus with foot ulcer[ICD10: E11.621] Diagnosis: Essential (primary) hypertension[ICD10: I10] Diagnosis: Malignant neoplasm of prostate[ICD10: C61] Diagnosis: Chronic obstructive pulmonary disease, unspecified[ICD10: J44.9] Diagnosis: Hypoxemia[ICD10: R09.02] Saarh Sanchez MD, [facility] CPT-4: 74758 10/04/2018 ([id number]) [id number] EST. PATIENT, LEVEL IV Diagnosis: Type 2 diabetes mellitus with hyperglycemia[ICD10: E11.65] Diagnosis: Essential (primary) hypertension[ICD10: I10] Diagnosis: Malignant neoplasm of prostate[ICD10: C61] Sarah Sanchez MD, [facility] CPT-4: 31846 08/29/2018 ([id number]) [id number] EST. PATIENT, LEVEL IV Diagnosis: Malignant neoplasm of prostate[ICD10: C61] Dorene Sanchez MD, [facility] [facility] CPT-[facility] 67413 02/25/2018 04305 EST. PATIENT, LEVEL IV Diagnosis: Generalized abdominal pain[ICD10: R10.84] Diagnosis: Unspecified jaundice[ICD10: R17] Diagnosis: Gross hematuria[ICD10: R31.0] Kiki Sanchez MD, [facility] CPT-4 : 66655 02/20/2018 ([id number]) 74019 EST. PATIENT, LEVEL IV Diagnosis: Type 2 diabetes mellitus with hyperglycemia[ICD10: E11.65] Diagnosis: Essential (primary) hypertension[ICD10: I10] Diagnosis: Chronic kidney disease, stage 3 (moderate)[ICD10: N18.3] Diagnosis: Chronic pain syndrome[ICD10: G89.4] Diagnosis: Other specified hypothyroidism[ICD10: E03.8] Diagnosis: Encounter for screening for malignant neoplasm of prostate[ICD10: Z12.5] Diagnosis: Encounter for immunization[ICD10: Z23] Sarah Sanchez MD, [facility] CPT-4: 51909 02/05/2018 ([id number]) 85558 EST. PATIENT, LEVEL IV Diagnosis: Type 2 diabetes mellitus with hyperglycemia[ICD10: E11.65] Diagnosis: Essential (primary) hypertension[ICD10: I10] Dorene Sanchez MD, [facility] CPT-4: 41508 11/08/2017 ([id number]) 02929 EST. PATIENT, LEVEL IV Diagnosis: Type 2 diabetes mellitus with hyperglycemia[ICD10: E11.65] Diagnosis: Chronic pain syndrome[ICD10: G89.4] Diagnosis: Essential (primary) hypertension[ICD10: I10] Diagnosis: Chronic kidney disease, stage 3 (moderate)[ICD10: N18.3] Diagnosis: Localized edema[ICD10: R60.0] Dorene Sanchez MD, [facility] CPT- 4: 81899 09/20/2017 ([id number]) 86280 EST. PATIENT, LEVEL III Diagnosis: Type 2 diabetes mellitus with hyperglycemia[ICD10: E11.65] Sarah Sanchez MD, [facility] CPT-4: 04541 06/25/2017 ([id number]) 02974 EST. PATIENT, LEVEL III Diagnosis: Cellulitis of left lower limb[ICD10: L03.116] Sarah Sanchez MD, [facility] CPT-4: 23489 06/07/2017 ([id number] 98198 EST. PATIENT, LEVEL III Diagnosis: Localized edema[ICD10: R60.0] Diagnosis: Type 2 diabetes mellitus with foot ulcer[ICD10: E11.621] Sarah Sanchez MD , [facility] CPT-4: 92971 05/03/2017 ([id number]) 98659 EST. PATIENT, LEVEL III Diagnosis: Cellulitis of left lower limb[ICD10: L03.116] Diagnosis: Localized edema[ICD10: R60.0] Sarah Sanchez MD, [facility] CPT-4: 22090 04/02/2017 ([id number]) Miscellaneous no charge Diagnosis: Localized edema[ICD10: R60.0] Diagnosis: Cellulitis of left lower limb[ICD10: L03.116] Sarah Sanchez MD, [facility] CPT-4: 62096 03/26/2017 ([id number]) 05978 EST. 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 PATIENT, LEVEL IV Diagnosis: Type 2 diabetes mellitus with hyperglycemia[ICD10: E11.65] Diagnosis: Other specified hypothyroidism[ICD10: E03.8] Diagnosis: Essential (primary) hypertension[ICD10: I10] Sarah Sanchez MD, [facility] CPT-4: 58284 03/08/2017 ([id number] 18291 EST. PATIENT, LEVEL III Diagnosis: Type 2 diabetes mellitus with hyperglycemia[ICD10: E11.65] Diagnosis: Other specified hypothyroidism[ICD10: E03.8] Sarah Sanchez MD, [facility] CPT-4: 04540 12/06/2016 ([id number]) 95656 EST. PATIENT, LEVEL IV Diagnosis: Essential (primary) hypertension[ICD10: I10] Diagnosis: Chronic kidney disease, stage 3 (moderate)[ICD10: N18.3] Dorene Sanchez MD, [facility] CPT-4: 32127 11/28/2016 ([id number]) 68284 EST. PATIENT, LEVEL IV Diagnosis: Essential (primary) hypertension[ICD10: I10] Diagnosis: Chronic pain syndrome[ICD10: G89.4] Diagnosis: Chronic kidney disease, stage 3 (moderate)[ICD10: N18.3] Diagnosis: Vitamin B12 deficiency anemia due to intrinsic factor deficiency[ ICD10: D51.0] Diagnosis: Other specified hypothyroidism[ICD10: E03.8] Dorene Sanchez MD, [facility] CPT-4: 57529 05/04/2016 14007 EST. PATIENT, LEVEL III Diagnosis: Chronic pain syndrome[ICD10: G89.4] Diagnosis: Essential (primary) hypertension[ICD10: I10] Diagnosis: Other specified hypothyroidism[ICD10: E03.8] Kiki Sanchez MD, [facility] CPT-4: 18005 11/04/2015 35724 EST. PATIENT, LEVEL III Diagnosis: Chronic pain syndrome[ICD10: G89.4] Diagnosis: Essential (primary) hypertension[ICD10: I10] Kiki Sanchez MD, [facility] CPT-4: 52160 07/30/2015 ([id number]) OFFICE/OUTPATIENT VISIT NEW Diagnosis: ESSENTIAL HYPERTENSION[ICD9: 401.9] Diagnosis: HYPOTHYROIDISM[ICD9: 244.9] Diagnosis: ANEMIA[ICD9: 285.9] Diagnosis: Vitamin B12 deficiency[ICD9: 266.2] Diagnosis: CHRONIC PAIN SYNDROME[ICD9: 338.4] Diagnosis: Chronic renal insufficiency, stage III (moderate)[ICD9: 585.3] Diagnosis: GOUT[ICD9: 274.9] [facility] CPT-4: 77382 01/26/2015 Plan of Care Planned Activity Notes [...] discharge. 10/18/2018 App[facility]ment[phone] ([facility] min[facility] Complex 10/18/2018 Patient Education: Patient [...] weakness 10/14/2018 Appointment: Kiki Menjivar WPtel: [phone] [facility] (30 min) Complex 10/14/2018 Patient Education: Patient [...] warmth, discharge. 10/10/2018 Appointment: Kiki Menjivar WPtel: [phone] [facility] (30 min) Complex 10/10/2018 Patient Education: Patient Medication Summary Completed 10/10/2018 Visit Plan: DM with peripheral neuropathy-paperwork completed for diabetic shoes and will fax to Dr Bauer HTN-controlled -no changes Ghqaboxlf-CGZZ-AQW-prostate cancer with mets- patient qualifies for oxygen-oxygen saturation dropped to 86% on room air during ambulation but increased to 99% on 2L NC at rest-will send orders to [facility] for continue oxygen at 2L per nasal cannula 10/04/2018 Appointment: Sarah Hernandes WPtel: [phone] [phone] (30 min) Complex 10/04/2018 Patient Education: Patient [...] Dr Moreno 08/29/2018 Appointment: Sarah Hernandes WPtel: [phone] (15 min) Moderate 08/29/2018 Patient Education: Patient Medication Summary Completed 08/29/2018 Referral: Edgard Rivera MD WPtel: Via [address] Moreno. Patient informed. Referral info faxed. Completed 02/27/2018 Visit Plan: Recurrent prostate cancer - I have recommended a referral to Dr. Rivera. We discussed the case at length today- he is not interested in extensive treatment, but if possible to extend his quantity and quality of life, he would like to try. 02/25/2018 Appointment: Dorene Sanchez WPtel: [facility]5 [facility] (15 min) Moderate 02/25/2018 Patient Education: Patient Medication Summary Completed 02/25/2018 Care Plan: Referral Order SNOMED-CT : [id number] Pending 02/25/2018 Visit Plan: Intermittent abdominal pain, jaundice, itching - will check labs and treat as indicated - pt is to go to the ER with any acute change in symptoms or any acute concerns. 02/20/2018 Appointment: Kiki Menjivar WPtel: [facility]3 [facility] (30 min) Complex 02/20/2018 Patient Education: Patient [...] control. 02/05/2018 Appointment: [phone] [phone] (30 min) Complex 02/05/2018 Patient Education: Patient [...] care surrogate. 11/30/2017 Appointment: [facility]el[facility] [phone] [phone] [facility] - Annual Wellness Visit 11/30/2017 Patient Education: [...] 1.2 11/08/2017 App[facility]ment: [phone] ([facility] min) Moderate 11/08/2017 Patient Education: [...] of over-medication. 09/20/2017 Appointment: [facility] [phone] [facility] (15 min) Moderate 09/20/2017 Patient Education: Patient [...] glucose control. 06/25/2017 Appointment: Sarah Hernandes WPtel: [phone] [phone] (30 min) Complex 06/25/2017 Patient Education: Patient Medication Summary Completed 06/25/2017 Appointment: Sarah Hernandes WPtel: [facility]5 [phone] (30 min) Complex 06/22/2017 Visit Plan: Cellulitis - start oral antibiotics as previously directed, return to clinic as previously directed, call for acute change in symptoms, worsening redness, warmth, discharge. 06/07/2017 Appointment: Sarah Hernandes WPtel: [phone] [phone] (30 min) Complex 06/07/2017 Patient Education: Patient Medication Summary Completed 06/07/2017 Patient Education: Obesity Completed 06/07/2017 Appointment: Dorene Sanchez WPtel: [facility] (15 min) Moderate 05/31/2017 Visit Plan: Edema-significantly improved-no changes Ulcer- left lower leg and foot-seeing Dr Norwood at wound care-appt scheduled with Dr Frausto for vascular evaluation 05/03/2017 Appointment: Sarah Hernandes WPtel: [phone] [phone] (15 min) Moderate 05/03/2017 Patient Education: Patient Medication Summary Completed 05/03/2017 Patient Education: Obesity Completed 05/03/2017 Visit Plan: Ldaifwmbwn-lsrqhyesc-tntddue to finish abx-no further treatment indicated Edema-significantly improved-no longer weeping- continue unna boots twice weekly with home health 04/02/2017 Appointment: Sarah Henrandes WPtel: [phone] [phone] (30 min) Complex 04/02/2017 Patient Education: Patient Medication Summary Completed 04/02/2017 Patient Education: Obesity Completed 04/02/2017 Visit Plan: Cellulitis-left leg-continue levaquin Edema- increase lasix/potassium-consult [facility] for unna boots/dressing changes 03/26/2017 Appointment: Sarah Hernandes WPtel: [phone] [phone] (15 min) Moderate 03/26/2017 Patient Education: Patient [...] indomethacin-stop aleve 03/22/2017 Appointment: Sarah Hernandes WPtel: [phone] (15 min) Moderate 03/22/2017 Patient Education: Patient [...] of control. 03/08/2017 Appointment: Sarah Hernandes WPtel: [address] [place] [phone] (30 min) Complex 03/08/2017 Patient Education: Patient [...] care surrogate. 11/30/2016 Appointment: Sarah Hernandes WPtel: [phone] [facility] - Annual Wellness Visit 11/30/2016 Patient Education: [...] in fluids. 11/28/2016 Appointment: Dorene Sanchez WPtel: [facility] (15 min) Moderate 11/28/2016 Patient Education: [...] 01/26/2015 Referral: Edgard Rivera MD WPtel: [address] Referral Appointment Requested Instructions Comment . [...] AND POTASSIUM TO TWICE DAILY [facility] . Cellulitis-left leg-continue levaquin Edema-increase lasix/potassium-[facility] for [facility] boots/dressing changes WRAP LEGS-THIGHS TO [...] YEAR SHINGLES VACCINATION TO BE ADMINISTERED AT [facility] RECOM[facility]END OBTAINING MEDICAL POWER OF DIGITAL MEDIA MANAGER AND LIVING WILL PATIENT DOES NOT HAVE [...] YEAR SHINGLES VACCINATION [facility] OBTAINING MEDICAL POWER OF DIGITAL MEDIA MANAGER AND LIVING WILL PATIENT DOES NOT HAVE [...] YEAR SHINGLES VACCINATION TO BE ADMINISTERED AT [facility] RECOM[facility] OBTAINING MEDICAL POWER OF DIGITAL MEDIA MANAGER AND LIVING WILL PATIENT DOES NOT HAVE [...] in symptoms, worsening redness, warmth, discharge. . Zdozaowkeu-xyrypkuly-iekojwm to finish abx-no further treatment indicated Edema-significantly [...] fax to Dr Bauer HTN-controlled -no changes Pszfcflme-OEOP-TKF-prostate cancer with mets- patient qualifies for oxygen- oxygen saturation dropped to 86% on room air during ambulation but increased to 99% on 2L NC at rest-will send orders to [facility] for continue oxygen at 2L per nasal cannula . Intermittent abdominal pain, jaundice, itching - will check labs and treat as indicated - pt is to go to the ER with any acute change in symptoms or any acute concerns.
--- OUTSIDE RECORDS SUMMARY | 2018-11-26 11:25 | XMS REPORT | CCD ---
Author Author Dorene Sanchez Organization [facility] Address [address] [place] [address] Phone Care Team Providers Care Cell Support Operator Name Role Phone PP Unavailable CCM Unavailable Summary Purpose Interface Exchange Insurance Providers Payer name Policy type / Coverage type Covered libertarian ID Effective Begin Date Effective End Date WPS Medicare Part B Medicare Part B [id number] Unknown Unknown Family history Father Diagnosis Age At Onset Stroke Unknown Mother Diagnosis Age At Onset Stroke Unknown Diabetes mellitus Type 2 Unknown Social History Social History Element Codes Description Effective Dates Tobacco history SNOMED CT: 328421331 Currently uses smokeless tobacco Chews 05/04/2016 Marital status Unknown 01/26/2015 Number of children Unknown 3 01/26/2015 Employment Unknown Retired 01/26/[address]: 929096946 Never drinks alcohol quit in July 2014 [...] Fill Instructions oxycodone 20 mg tablet RxNorm: 5069041 1/2 Tablet(s) PO Q6 as needed 10/14/2018 11/12/2018 Active potassium chloride ER 10 mEq tablet,extended release RxNorm: 197010 1 Tablet(s) PO daily 10/10/2018 11/08/2018 Active Lasix 20 mg tablet RxNorm: 855547 1 Tablet(s) PO BID 201804/07/2019 Active Keflex 500 mg capsule RxNorm: 992362 1 Capsule(s) PO TID 201810/19/2018 Inactive albuterol sulfate 2.5 mg/3 mL (0.083 %) solution for nebulization RxNorm: 484791 1 Milliliter(s) INH TID DX J44.9 10/04/2018 01/31/2019 Active gabapentin 100 mg capsule RxNorm: 467375 TAKE ONE CAPSULE BY MOUTH IN THE EVENING AT 5PM 09/24/2018 03/22/2019 Active oxycodone 20 mg tablet RxNorm: 5173304 1/2 Tablet(s) PO Q6 as needed 09/12/2018 10/11/2018 Inactive oxycodone 20 mg tablet RxNorm: 7936036 1/2 Tablet(s) PO Q6 as needed 08/15/2018 09/11/2018 Inactive oxycodone 20 mg tablet RxNorm: 2490303 1/2 Tablet(s) PO Q6 as needed 07/16/2018 08/14/2018 Inactive oxycodone 20 mg tablet RxNorm: 3844690 1/2 Tablet(s) PO Q6 as needed 06/14/2018 07/13/2018 Inactive gabapentin 100 mg capsule RxNorm: 371643 TAKE ONE CAPSULE BY MOUTH IN THE EVENING AT 5PM 05/30/2018 09/23/2018 Inactive oxycodone 20 mg tablet RxNorm: 3278087 1/2 Tablet(s) PO Q6 as needed 05/15/2018 06/13/2018 Inactive oxycodone 20 mg tablet RxNorm: 3102205 1/2 Tablet(s) PO Q6 as needed 04/12/2018 05/11/2018 Inactive oxycodone 20 mg tablet RxNorm: 6148397 1/2 Tablet(s) PO Q6 as needed 03/11/2018 04/09/2018 Inactive levothyroxine 200 mcg tablet RxNorm: 387858 1 Tablet(s) PO daily 02/21/2018 02/15/2019 Active Cipro 500 mg tablet RxNorm: 944621 1 Tablet(s) PO BID 201702/20/2018 Inactive levothyroxine 200 mcg tablet RxNorm: 180356 1 Tablet(s) PO daily 02/21/2018 02/20/2018 Inactive Cipro 500 mg tablet RxNorm: 405763 1 Tablet(s) PO BID 201703/02/2018 Inactive oxycodone 20 mg tablet RxNorm: 3869364 1/2 Tablet(s) PO Q6 as needed 02/12/2018 03/10/2018 Inactive oxycodone 20 mg tablet RxNorm: 9903966 1/2 Tablet(s) PO Q6 as needed 01/16/2018 02/11/2018 Inactive gabapentin 100 mg capsule RxNorm: 201361 TAKE ONE CAPSULE BY MOUTH IN THE EVENING AT 5PM 01/15/2018 05/29/2018 Inactive bisoprolol 5 mg-hydrochlorothiazide 6.25 mg tablet RxNorm: 409868 TAKE ONE TABLET BY MOUTH DAILY 01/01/2018 12/26/2018 Active oxycodone 20 mg tablet RxNorm: 5551394 1/2 Tablet(s) PO Q6 as needed 12/20/2017 01/14/2018 Inactive oxycodone 20 mg tablet RxNorm: 1307225 1/2 Tablet(s) PO Q6 as needed 11/20/2017 12/19/2017 Inactive Victoza 2-Dino 0.6 mg/0.1 mL (18 mg/3 mL) subcutaneous pen injector RxNorm: 362394 1.2 Milligram(s) SQ daily 11/08/201712/07 Inactive oxycodone 20 mg tablet RxNorm: 2578466 1/2 Tablet(s) PO Q6 as needed 10/19/2017 11/17/2017 Inactive gabapentin 100 mg capsule RxNorm: 318090 1 Capsule(s) PO QPM at 5 pm 09/20/2017 01/14/2018 Inactive Lasix 20 mg tablet RxNorm: 363941 1 Tablet(s) QAM at 5pm 12/201703/18/2018 Inactive oxycodone 20 mg tablet RxNorm: 2379237 1/2 Tablet(s) PO Q6 as needed 09/18/2017 10/17/2017 Inactive oxycodone 20 mg tablet RxNorm: 7984503 1/2 Tablet(s) PO Q6 as needed 08/14/2017 09/12/2017 Inactive ketoconazole 2 % topical cream RxNorm: 551840 1 Gram(s) TOP BID to affected area until healed 08/03/2017 No Stop Date Active oxycodone 20 mg tablet RxNorm: 9553884 1/2 Tablet(s) PO Q6 as needed 07/17/2017 08/13/2017 Inactive pen needle, diabetic 31 gauge x 5/16" RxNorm: 1 Unit Dose Miscellaneous daily 06/25/2017 03/21/2018 Inactive daily use with victoza Bactrim DS 800 mg-160 mg tablet RxNorm: 635109 1 Tablet(s) PO BID Dr Norwood 06/25/2017 07/04/2017 Inactive Victoza 2-Dino 0.6 mg/0.1 mL (18 mg/3 mL) subcutaneous pen injector RxNorm: 908018 0.6 Milligram(s) SQ daily 06/25/201707/24 Inactive doxycycline hyclate 100 mg tablet RxNorm: 217384 1 Tablet(s) PO BID Dr Norwood 06/21/2017 06/30/2017 Inactive oxycodone 20 mg tablet RxNorm: 7624927 1/2 Tablet(s) PO Q6 as needed 06/14/2017 07/13/2017 Inactive clindamycin 150 mg capsule RxNorm: 511930 1 Capsule(s) PO Q8 06/16/2017 Inactive levothyroxine 175 mcg tablet RxNorm: 647877 TAKE ONE TABLET BY MOUTH DAILY 06/04/2017 09/01/2017 Inactive levothyroxine 175 mcg tablet RxNorm: 979082 TAKE ONE TABLET BY MOUTH DAILY 06/04/2017 11/30/2017 Inactive bisoprolol 5 mg-hydrochlorothiazide 6.25 mg tablet RxNorm: 009815 TAKE ONE TABLET BY MOUTH DAILY 05/24/2017 11/19/2017 Inactive oxycodone 20 mg tablet RxNorm: 8174398 1/2 Tablet(s) PO Q6 as needed 05/14/2017 06/12/2017 Inactive potassium chloride ER 10 mEq capsule,extended release RxNorm: 515206 TAKE ONE CAPSULE BY MOUTH DAILY NEEDED FOR 5 DAYS THEN NEEDED WITH LASIX 04/17/2017 10/13/2017 Inactive Lasix 20 mg tablet RxNorm: 313027 TAKE ONE TABLET BY MOUTH DAILY NEEDED 04/17/2017 09/19/2017 Inactive oxycodone 20 mg tablet RxNorm: 0192866 1/2 Tablet(s) PO Q6 as needed 04/12/2017 05/11/2017 Inactive Colcrys 0.6 mg tablet RxNorm: 365199 2 tabs at onset then may repeat 1 tab in 1 hours if needed- Tablet(s) PO 04/09/2017 No Stop Date Active then take daily until gout resolved Bactrim DS 800 mg-160 mg tablet RxNorm: 709359 1 Tablet(s) PO BID 04/09/2017 04/08/2017 Inactive dc levaquin Bactrim DS 800 mg-160 mg tablet RxNorm: 238495 1 Tablet(s) PO BID 04/09/2017 04/15/2017 Inactive dc levaquin Levaquin 500 mg tablet RxNorm: 597479 1 Tablet(s) PO daily 04/02/2017 Inactive Levaquin 500 mg tablet RxNorm: 911891 1 Tablet(s) PO daily 06/06/2017 Inactive indomethacin 25 mg capsule RxNorm: 243459 1 Capsule(s) PO TID PRN 03/22/2017 03/22/2017 Inactive Lasix 20 mg tablet RxNorm: 255869 1 Tablet(s) PO QDAY PRN 02/201704/16/2017 Inactive daily x 5 days then as needed Levaquin 500 mg tablet RxNorm: 221979 1 Tablet(s) PO daily 02/201703/31/2017 Inactive potassium chloride ER 10 mEq capsule,extended release RxNorm: 585750 1 Capsule(s) PO QDAY PRN 03/22/2017 04/16/2017 Inactive daily x 5 days then as needed with lasix oxycodone 20 mg tablet RxNorm: 9282781 1/2 Tablet(s) PO Q6 as needed 03/08/2017 04/06/2017 Inactive bisoprolol 5 mg-hydrochlorothiazide 6.25 mg tablet RxNorm: 400129 TAKE ONE TABLET BY MOUTH DAILY 02/14/2017 05/14/2017 Inactive oxycodone 20 mg tablet RxNorm: 3453154 1/2 Tablet(s) PO Q6 as needed 02/08/2017 03/07/2017 Inactive oxycodone 20 mg tablet RxNorm: 3206493 1/2 Tablet(s) PO Q6 as needed 01/08/2017 02/06/2017 Inactive levothyroxine 175 mcg tablet RxNorm: 971711 1 Tablet(s) PO daily 12/06/2016 06/03/2017 Inactive [SAVINGS FOR NON-COVERED DRUGS -- BIN:[id number], PCN: ASPROD1, Group: XXXXX, ID# XXXXXXX, Questions: . THIS IS NOT INSURANCE.] oxycodone 20 mg tablet RxNorm: 6775715 1/2 Tablet(s) PO Q6 as needed 12/04/2016 01/02/2017 Inactive oxycodone 20 mg tablet RxNorm: 5573777 1/2 Tablet(s) PO Q6 as needed 11/09/2016 12/03/2016 Inactive bisoprolol 5 mg-hydrochlorothiazide 6.25 mg tablet RxNorm: 677545 TAKE ONE TABLET BY MOUTH DAILY 11/08/2016 02/05/2017 Inactive oxycodone 20 mg tablet RxNorm: 0699241 1/2 Tablet(s) PO Q6 as needed 10/05/2016 11/03/2016 Inactive oxycodone 20 mg tablet RxNorm: 1478119 1/2 Tablet(s) PO Q6 as needed 09/06/2016 10/04/2016 Inactive oxycodone 20 mg tablet RxNorm: 8105328 1/2 Tablet(s) PO Q6 as needed 08/07/2016 09/05/2016 Inactive oxycodone 20 mg tablet RxNorm: 0272410 1/2 Tablet(s) PO Q6 as needed 07/04/2016 08/06/2016 Inactive oxycodone 20 mg tablet RxNorm: 7105496 1/2 Tablet(s) PO Q6 as needed 05/29/2016 07/03/2016 Inactive levothyroxine 150 mcg tablet RxNorm: 176019 1 Tablet(s) PO daily 04/10/2016 04/09/2016 Inactive [SAVINGS FOR NON-COVERED DRUGS -- BIN:[id number], PCN: ASPROD1, Group: XXXXX, ID# XXXXXXX, Questions: . THIS IS NOT INSURANCE.] oxycodone 20 mg tablet RxNorm: 8403231 1/2 Tablet(s) PO Q6 as needed 04/10/2016 05/28/2016 Inactive levothyroxine 150 mcg tablet RxNorm: 598705 1 Tablet(s) PO daily 04/10/2016 10/06/2016 Inactive [SAVINGS FOR NON-COVERED DRUGS -- BIN:[id number], PCN: ASPROD1, Group: XXXXX, ID# XXXXXXX, Questions: . THIS IS NOT INSURANCE.] bisoprolol 5 mg-hydrochlorothiazide 6.25 mg tablet RxNorm: 983213 1 Tablet(s) PO daily 02/16/2016 12/31/2017 Inactive oxycodone 20 mg tablet RxNorm: 6804844 1/2 Tablet(s) PO Q6 as needed 02/16/2016 04/09/2016 Inactive oxycodone 20 mg tablet RxNorm: 2462627 1/2 Tablet(s) PO Q6 as needed 01/04/2016 02/15/2016 Inactive bisoprolol 5 mg-hydrochlorothiazide 6.25 mg tablet RxNorm: 410961 1 Tablet(s) PO daily 11/19/2015 01/17/2016 Inactive bisoprolol 5 mg-hydrochlorothiazide 6.25 mg tablet RxNorm: 727119 1 Tablet(s) PO daily 11/04/2015 11/18/2015 Inactive oxycodone 20 mg tablet RxNorm: 7237760 1/2 Tablet(s) PO Q6 as needed 10/27/2015 01/03/2016 Inactive levothyroxine 150 mcg tablet RxNorm: 548224 1 Tablet(s) PO daily 08/26/2015 02/21/2016 Inactive [SAVINGS FOR NON-COVERED DRUGS -- BIN:[id number], PCN: ASPROD1, Group: XXXXX, ID# XXXXXXX, Questions: . THIS IS NOT INSURANCE.] bisoprolol 5 mg-hydrochlorothiazide 6.25 mg tablet RxNorm: 322101 1 Tablet(s) PO daily 08/26/2015 10/24/2015 Inactive oxycodone 10 mg tablet RxNorm: 7398414 1 Tablet(s) PO Q6 as needed 05/06/2015 10/26/2015 Inactive levothyroxine 150 mcg tablet RxNorm: 441754 1 Tablet(s) PO daily 02/05/2015 08/03/2015 Inactive [SAVINGS FOR NON-COVERED DRUGS -- BIN:[id number], PCN: ASPROD1, Group: XXXXX, ID# [id number], Questions: . THIS IS NOT INSURANCE.] Vitamin D2 50,000 unit capsule RxNorm: 515908 1 Capsule(s) PO weekly 02/05/2015 05/05/2015 Inactive [SAVINGS FOR NON-COVERED DRUGS -- BIN:414075, PCN: ASPROD1, Group: XXXXX, ID# XXXXXXX, Questions: . THIS IS NOT INSURANCE.] Vitamin D2 50,000 unit capsule RxNorm: 341549 1 Capsule(s) PO weekly 02/05/2015 02/04/2015 Inactive bisoprolol 5 mg-hydrochlorothiazide 6.25 mg tablet RxNorm: 262364 1 Tablet(s) PO daily 01/26/2015 02/24/2015 Inactive levothyroxine 200 mcg tablet RxNorm: 378438 1 Tablet(s) PO daily 01/26/2015 01/25/2015 Inactive levothyroxine 200 mcg tablet RxNorm: 182871 1 Tablet(s) PO every other day 01/26/2015 02/04/2015 Inactive [SAVINGS FOR NON-COVERED DRUGS -- BIN:196703, PCN: ASPROD1, Group: XXXXX, ID# XXXXXXX, Questions: . THIS IS NOT INSURANCE.] aspirin 81 mg chewable tablet RxNorm: 299208 1 Tablet(s) PO daily No Start Date Active Plavix 75 mg tablet RxNorm: 581979 1 Tablet(s) PO daily manage by Dr Baig No Start Date Active simvastatin 40 mg tablet RxNorm: 672728 1 Tablet(s) PO QHS managed by Dr Baig No Start Date Active Colcrys 0.6 mg tablet RxNorm: 737769 2 tabs at onset then may repeat 1 tab in 1 hours if needed- Tablet(s) PO No Start Date 04/08/2017 Inactive then take daily until gout resolved aspirin 325 mg tablet RxNorm: 129010 1 Tablet(s) PO daily No Start Date 05/03/2016 Inactive levothyroxine 75 mcg tablet RxNorm: 372116 1 Tablet(s) PO every other day No Start Date 02/04/2015 Inactive takes qod with 200mcg oxycodone 10 mg tablet RxNorm: 9034634 1 Tablet(s) PO Q6 as needed No Start Date 05/05/2015 Inactive ketoconazole 2 % topical cream RxNorm: 305562 1 Gram(s) TOP BID to affected area [...] Code Item Item Code Result Date %Hba1C Eqm800 % HbA1c 68537-1 6.4 % 08/30/2018 %Hba1C Pyq707 Gluc Ave 137 mg/dL 08/30/2018 Culture Urine [id number] URINE CULTURE SEE NOTES 02/22/2018 Urine Culture [...] 24.5 pg 02/20/2018 Cbc With Differential Ord2 Weld% 8.9 % 02/20/2018 Cbc With Differential Ord2 [...] 0.81 K/ul 02/20/2018 Cbc With Differential Ord2 Weld ABS# 0.7 K/ul 02/20/2018 Cbc With Differential Ord2 Eos ABS# 0.4 K/ul 02/20/2018 Cbc With Differential Ord2 Baso ABS# 0.0 K/ul 02/20/2018 %Hba1C Inu733 % HbA1c 43227-8 7.7 % 02/20/2018 %Hba1C Lel726 Gluc Ave 174 mg/dL 02/20/2018 Lipase Ebi961 LIPASE 17 U/L 02/20/2018 Microalbumin Fvg781 MicroAlb 6.5 mg/dL 02/20/2018 Amylase Ord34 AMYLASE 15 U/L 02/20/2018 Free T4 Nyx908 FREE T4 0.61 ng/dL 02/20/2018 Lipid Ord30 CHOL 203 mg/dL 02/20/2018 Lipid Ord30 HDL 7.0 mg/dl 02/20/2018 Lipid Ord30 TRIG 271 mg/dL 02/20/2018 Lipid Ord30 LDL 142 mg/dL 02/20/2018 Lipid Ord30 C/HDL 29.0 Ratio 02/20/2018 Comp Metabolic Ory090 NA 134 mEq/L 02/20/2018 Comp Metabolic Fov206 K 3.6 mEq/L 02/20/2018 Comp Metabolic Ihu615 CL 96 mEq/L 02/20/2018 Comp Metabolic Zri124 CO2 29.0 mEq/L 02/20/2018 Comp Metabolic Ufl856 ANION GAP 13 02/20/2018 Comp Metabolic Qvh381 GLUCOSE 165 mg/dL 02/20/2018 Comp Metabolic Lgx353 Creat 1.2 mg/dL 02/20/2018 Comp Metabolic Jzl029 eGFR 63 ml/min/1.73m2 02/20/2018 Comp Metabolic Atg751 BUN 14 mg/dL 02/20/2018 Comp Metabolic She287 B/C Ratio 11.6 Ratio 02/20/2018 Comp Metabolic Flv247 CALCIUM 8.5 mg/dL 02/20/2018 Comp Metabolic Vap996 ALK PHOS 633 U/L 02/20/2018 Comp Metabolic Bsj154 AST(SGOT) 112 U/L 02/20/2018 Comp Metabolic Fwk066 ALT(SGPT) 148 U/L 02/20/2018 Comp Metabolic Lsy924 BILI T 6.8 mg/dL 02/20/2018 Comp Metabolic Pse371 ALBUMIN 3.3 g/dL 02/20/2018 Comp Metabolic Fyu698 TPRO 5.9 g/dL 02/20/2018 Comp Metabolic Lxp757 GLOB 2.6 g/dL 02/20/2018 Comp Metabolic Acw341 A/G Ratio 1.3 Ratio 02/20/2018 Comp Metabolic Kmf945 Osmo 272 mOsmo 02/20/2018 Total Psa Ord10 [...] Metabolic Ord15 CALCIUM 9.2 mg/dL 11/09/2017 %Hba1C Uyi809 % HbA1c 27682-9 8.0 % 11/09/2017 %Hba1C Hna692 Gluc Ave 183 mg/dL 11/09/2017 Metabolic Ord15 [...] Ord15 CALCIUM 8.7 mg/dL 06/25/2017 Culture Wound [id number] WOUND CULTURE SEE NOTES 04/09/2017 Culture Wound [id number] Continued Results 04/09/2017 Amylase Ord34 AMYLASE 19 [...] 27.9 pg 03/22/2017 Cbc With Differential Ord2 [place]% 8.3 % 03/22/2017 Cbc With Differential Ord2 [...] 1.35 K/ul 03/22/2017 Cbc With Differential Ord2 [place] ABS# 1.4 K/ul 03/22/2017 Cbc With Differential Ord2 Eos ABS# 0.2 K/ul 03/22/2017 Cbc With Differential Ord2 Baso ABS# 0.0 K/ul 03/22/2017 Comp Metabolic Suv252 NA 134 mEq/L 03/22/2017 Comp Metabolic Bhm392 K 4.5 mEq/L 03/22/2017 Comp Metabolic Zjg702 CL 93 mEq/L 03/22/2017 Comp Metabolic Fgr629 CO2 31.0 mEq/L 03/22/2017 Comp Metabolic Kzx640 ANION GAP 15 03/22/2017 Comp Metabolic Upe640 GLUCOSE 198 mg/dL 03/22/2017 Comp Metabolic Vxj559 Creat 1.5 mg/dL 03/22/2017 Comp Metabolic Hrn006 eGFR 50 ml/min/1.73m2 03/22/2017 Comp Metabolic Yzc812 BUN 32 mg/dL 03/22/2017 Comp Metabolic Moq983 B/C Ratio 21.6 Ratio 03/22/2017 Comp Metabolic Vms036 CALCIUM 8.4 mg/dL 03/22/2017 Comp Metabolic Daz600 ALK PHOS 245 U/L 03/22/2017 Comp Metabolic Aii595 AST(SGOT) 18 U/L 03/22/2017 Comp Metabolic Jje659 ALT(SGPT) 17 U/L 03/22/2017 Comp Metabolic Frx821 BILI T 0.8 mg/dL 03/22/2017 Comp Metabolic Moy020 ALBUMIN 2.9 g/dL 03/22/2017 Comp Metabolic Vke288 TPRO 6.3 g/dL 03/22/2017 Comp Metabolic Mso330 GLOB 3.4 g/dL 03/22/2017 Comp Metabolic Ngg842 A/G Ratio 0.8 Ratio 03/22/2017 Comp Metabolic Zxo229 Osmo 281 mOsmo 03/22/2017 Lipase Lsm461 LIPASE 12 U/L 03/22/2017 Comp Metabolic Fko874 NA 142 mEq/L 03/09/2017 Comp Metabolic Cho294 K 4.8 mEq/L 03/09/2017 Comp Metabolic Epu342 CL 103 mEq/L 03/09/2017 Comp Metabolic Ewb567 CO2 30.0 mEq/L 03/09/2017 Comp Metabolic Huf593 ANION GAP 14 03/09/2017 Comp Metabolic Egu666 GLUCOSE 152 mg/dL 03/09/2017 Comp Metabolic Yix068 Creat 1.3 mg/dL 03/09/2017 Comp Metabolic Eev867 eGFR 56 ml/min/1.73m2 03/09/2017 Comp Metabolic Gxv723 BUN 23 mg/dL 03/09/2017 Comp Metabolic Jwa329 B/C Ratio 17.3 Ratio 03/09/2017 Comp Metabolic Srd241 CALCIUM 8.5 mg/dL 03/09/2017 Comp Metabolic Ctq935 ALK PHOS 97 U/L 03/09/2017 Comp Metabolic Wxl887 AST(SGOT) 10 U/L 03/09/2017 Comp Metabolic Ygn260 ALT(SGPT) 6 U/L 03/09/2017 Comp Metabolic Hlc351 BILI T 0.4 mg/dL 03/09/2017 Comp Metabolic Aja899 ALBUMIN 3.4 g/dL 03/09/2017 Comp Metabolic Kgo920 TPRO 6.2 g/dL 03/09/2017 Comp Metabolic Aqn431 GLOB 2.8 g/dL 03/09/2017 Comp Metabolic Fia445 A/G Ratio 1.2 Ratio 03/09/2017 Comp Metabolic Aqz434 Osmo 290 mOsmo 03/09/2017 Free T4 Kmw236 FREE T4 0.86 ng/dL 03/08/2017 Cbc With [...] 28.2 pg 03/08/2017 Cbc With Differential Ord2 Weld% 8.7 % 03/08/2017 Cbc With Differential Ord2 [...] 1.63 K/ul 03/08/2017 Cbc With Differential Ord2 Weld ABS# 0.9 K/ul 03/08/2017 Cbc With Differential Ord2 Eos ABS# 0.5 K/ul 03/08/2017 Cbc With Differential Ord2 Baso ABS# 0.0 K/ul 03/08/2017 Tsh Ord6 hTSH II 4.52 uIU/mL 03/08/2017 %Hba1C Gss112 % HbA1c 71512-6 8.5 % 03/08/2017 %Hba1C Jbz299 Gluc Ave 197 mg/dL 03/08/2017 %Hba1C Bxe461 % HbA1c 92012-5 9.8 % 12/04/2016 %Hba1C Uir983 Gluc Ave 235 mg/dL 12/04/2016 Tsh Ord6 hTSH II 10.65 uIU/mL 11/30/2016 Comp Metabolic Qlj993 NA 134 mEq/L 11/30/2016 Comp Metabolic Olx379 K 5.0 mEq/L 11/30/2016 Comp Metabolic Ecj514 CL 95 mEq/L 11/30/2016 Comp Metabolic Wps163 CO2 34.0 mEq/L 11/30/2016 Comp Metabolic Gas092 ANION GAP 10 11/30/2016 Comp Metabolic Ele440 GLUCOSE 226 mg/dL 11/30/2016 Comp Metabolic Xkg673 Creat 1.3 mg/dL 11/30/2016 Comp Metabolic Hsl616 eGFR 56 ml/min/1.73m2 11/30/2016 Comp Metabolic Zkm664 BUN 21 mg/dL 11/30/2016 Comp Metabolic Awt199 B/C Ratio 15.7 Ratio 11/30/2016 Comp Metabolic Lbn816 CALCIUM 8.9 mg/dL 11/30/2016 Comp Metabolic Sjt209 ALK PHOS 112 U/L 11/30/2016 Comp Metabolic Dca428 AST(SGOT) 9 U/L 11/30/2016 Comp Metabolic Giq343 ALT(SGPT) 7 U/L 11/30/2016 Comp Metabolic Xdo237 BILI T 0.6 mg/dL 11/30/2016 Comp Metabolic Hpw078 ALBUMIN 3.6 g/dL 11/30/2016 Comp Metabolic Euk737 TPRO 6.4 g/dL 11/30/2016 Comp Metabolic Xps809 GLOB 2.9 g/dL 11/30/2016 Comp Metabolic Cjr345 A/G Ratio 1.2 Ratio 11/30/2016 Comp Metabolic Tpx014 Osmo 278 mOsmo 11/30/2016 Lipid Ord30 CHOL [...] 13.0 % 11/30/2016 Cbc With Differential Ord2 Weld% 7.9 % 11/30/2016 Cbc With Differential Ord2 [...] 1.34 K/ul 11/30/2016 Cbc With Differential Ord2 Weld ABS# 0.8 K/ul 11/30/2016 Cbc With Differential Ord2 Eos ABS# 0.3 K/ul 11/30/2016 Cbc With Differential Ord2 Baso ABS# 0.0 K/ul 11/30/2016 Free T4 Hbq163 FREE T4 0.89 ng/dL 11/30/2016 Review of [...] distress 10/18/2018 None Full Exam - General 1995 Constitutional general appearance Overall: well nourished 10/18/2018 None Full Exam - General 1995 Eyes conjunctiva /eyelids Overall: conjunctiva clear 10/18/2018 None Full Exam - General 1995 Eyes conjunctiva /eyelids Overall: cornea clear 10/18/2018 None Full Exam - General 1995 Eyes conjunctiva /eyelids Overall: eyelids normal 10/18/2018 None Full Exam - General 1995 Ears/Nose/Throat lips/teeth/gingiva Overall: benign lips 10/18/2018 None Full Exam - General 1995 Ears/Nose/Throat oral cavity/pharynx/larynx Overall: oral mucosa clear [...] nourished 10/14/2018 None Full Exam - General 1995 Eyes conjunctiva /eyelids Overall: conjunctiva clear 10/14/2018 None Full Exam - General 1995 Eyes conjunctiva /eyelids Overall: cornea clear 10/14/2018 None Full Exam - General 1994 Eyes conjunctiva /eyelids Overall: eyelids normal 10/14/2018 None Full Exam - General 1995 Ears/Nose/Throat lips/teeth/gingiva Overall: benign lips 10/14/2018 None Full Exam - General 1995 Ears/Nose/Throat oral cavity/pharynx/larynx Overall: oral mucosa clear [...] rate 09/20/2017 None Full Exam - General 1995 Cardiovascular [...] Codes Date ADMIN PNEUMOCOCCAL VACCINE SNOMED CT: 95588353 CPT-4: G0009 02/05/2018 Pneumococcal Polysaccharide Vaccine, 23-Valent, Ad CPT-4: 25845 02/05/2018 PPPS, SUBSEQ VISIT CPT -4: G0439 11/30/2017 URINALYSIS NONAUTO W/O SCOPE CPT-4: 55035 03/22/2017 URINALYSIS NONAUTO W/O SCOPE CPT-4: 38598 03/21/2017 PPPS, SUBSEQ VISIT CPT -4: G0439 11/30/2016 PNEUMOCOCCAL VACC 13 JAVIER IM Formatting Model/CDA Sections, Assigned to SNOMED CT: 82667990 CPT-4: 10249Hgjafge 11/30/2016 ADMIN PNEUMOCOCCAL VACCINE SNOMED CT: 13412696 CPT-4: G0009 11/30/2016 Vital Signs Date Vital 10/18/2018 Blood Pressure 1: 118/70 Code : 8480-6 BMI: 39.0 Code : 29497-7 Heart Rate 1 : 86 bpm Height: 5'10" SpO2: 95% Weight: 272 lbs 10/14/2018 Blood Pressure 1: 120/56 Code : 8480-6 Heart Rate 1: 67 bpm Height: 5'10" SpO2: 92% 10/10/2018 Blood Pressure 1: 126/70 Code : 8480-6 BMI: 34.7 Code : 78480-4 Heart Rate 1 : 80 bpm Height: 5'10" SpO2: 96% Temperature: 37.1 (C) / 98.7 (F) Weight: 242 lbs 10/04/2018 Blood Pressure 1: 120/70 Code : 8480-6 Height: 5'10" SpO2: 96% 08/29/2018 Blood Pressure 1: 104/60 Code : 8480-6 BMI: 34.6 Code : 49421-6 Heart Rate 1 : 68 bpm Height: 5'10" SpO2: 98% Weight: 241 lbs 02/25/2018 Blood Pressure 1: 120/70 Code : 8480-6 BMI: 37.0 Code : 95137-3 Heart Rate 1 : 51 bpm Height: 5'10" SpO2: 97% Weight: 258 lbs 02/20/2018 Blood Pressure 1: 124/70 Code : 8480-6 BMI: 38.0 Code : 02332-3 Heart Rate 1 : 60 bpm Height: 5'10" SpO2: 96% Weight: 265 lbs 02/05/2018 Blood Pressure 1: 116/66 Code : 8480-6 BMI: 38.0 Code : 58429-0 Heart Rate 1 : 63 bpm Height: 5'10" SpO2: 98% Weight: 265 lbs 11/30/2017 Blood Pressure 1: 132/60 Code : 8480-6 BMI: 37.0 Code : 59042-4 Heart Rate 1 : 100 bpm Height: 5'10 " SpO2: 96% Waist Measure (cm): 122 cm Weight: 258 lbs 11/08/2017 Blood Pressure 1: 126/64 Code : 8480-6 BMI: 37.2 Code : 14974-1 Heart Rate 1 : 92 bpm Height: 5'10" SpO2: 94% Weight: 259 lbs 09/20/2017 Blood Pressure 1: 122/68 Code : 8480-6 BMI: 36.9 Code : 12348-4 Heart Rate 1 : 57 bpm Height: 5'10" SpO2: 96% Weight: 257 lbs 06/25/2017 Blood Pressure 1: 124/68 Code : 8480-6 BMI: 37.0 Code : 17171-2 Height: 5'10 " Weight: 258 lbs 06/07/2017 Blood Pressure 1: 122/64 Code : 8480-6 BMI: 37.0 Code : 93698-4 Heart Rate 1 : 60 bpm Height: 5'10" SpO2: 94% Temperature: 36.4 (C) / 97.6 (F) Weight: 258 lbs 05/03/2017 Blood Pressure 1: 118/74 Code : 8480-6 BMI: 38.2 Code : 43695-1 Heart Rate 1 : 52 bpm Height: 5'10" SpO2: 98% Weight: 266 lbs 04/02/2017 Blood Pressure 1: 118/62 Code : 8480-6 BMI: 38.2 Code : 80028-4 Heart Rate 1 : 53 bpm Height: 5'10" SpO2: 93% Weight: 266 lbs 03/26/2017 Blood Pressure 1: 114/62 Code : 8480-6 BMI: 38.3 Code : 64343-4 Height: 5'10 " Weight: 267 lbs 03/22/2017 Blood Pressure 1: 122/64 Code : 8480-6 BMI: 40.0 Code : 76894-9 Heart Rate 1 : 52 bpm Height: 5'10" SpO2: 94% Weight: 279 lbs 03/08/2017 Blood Pressure 1: 124/70 Code : 8480-6 BMI: 39.4 Code : 08788-5 Heart Rate 1 : 51 bpm Height: 5'10" SpO2: 94% Weight: 274 lbs 8 oz 12/06/2016 Blood Pressure 1: 12662 Code : 8480-6 BMI: 40.3 Code : 00947-5 Heart Rate 1 : 50 bpm Height: 5'10" SpO2: 94% Weight: 281 lbs 11/30/2016 Blood Pressure 1: 112 Code : 8480-6 BMI: 40.3 Code : 01651-7 Heart Rate 1 : 52 bpm Height: 5'10" SpO2: 93% Waist Measure (cm): 135 cm Weight: 281 lbs 11/28/2016 Blood Pressure 1: 132/72 Code : 8480-6 BMI: 40.3 Code : 46122-2 Heart Rate 1 : 50 bpm Height: 5'10" Weight: 281 lbs 05/04/2016 Blood Pressure 1: 128/78 Code : 8480-6 BMI: 38.5 Code : 84674-1 Heart Rate 1 : 74 bpm Height: 5'10" SpO2: 98% Weight: 268 lbs 8 oz 11/04/2015 Blood Pressure 1: 136/60 Code : 8480-6 BMI: 38.0 Code : 81716-1 Heart Rate 1 : 55 bpm Height: 5'10" SpO2: 94% Weight: 265 lbs 07/30/2015 Blood Pressure 1: 128/74 Code : 8480-6 BMI: 38.0 Code : 21925-4 Heart Rate 1 : 47 bpm Height: 5'10" SpO2: 97% Weight: 265 lbs 01/26/2015 Blood Pressure 1: 122/64 Code : 8480-6 BMI: 34.0 Code : 50158-2 Heart Rate 1 : 68 bpm Height: [...] data Encounters Encounter Performer Location Codes Date [id number] EST. PATIENT, LEVEL III Diagnosis: Localized edema[ICD10: R60.0] Diagnosis: Cellulitis of left lower limb[ICD10: L03.116] Diagnosis: Cellulitis of right lower limb[ICD10: L03.115] Kiki Sanchez MD, [facility] CPT-4: 10396 10/18/2018 [id number] EST. PATIENT, LEVEL III Diagnosis: Localized edema[ICD10: R60.0] Diagnosis: Cellulitis of left lower limb[ICD10: L03.116] Diagnosis: Cellulitis of right lower limb[ICD10: L03.115] Diagnosis: Chronic obstructive pulmonary disease, unspecified[ICD10: J44.9] Diagnosis: Weakness[ICD10: R53.1] Kiki Sanchez MD, [facility] [facility] CPT-4: 09615 10/14/2018 64020 EST. PATIENT, LEVEL III Diagnosis: Localized edema[ICD10: R60.0] Diagnosis: Cellulitis of left lower limb[ICD10: L03.116] Diagnosis: Cellulitis of right lower limb[ICD10: L03.115] Kiki Sanchez MD, [facility] CPT-4: 13942 10/10/2018 ([id number]) 06238 EST. PATIENT, LEVEL IV Diagnosis: Type 2 diabetes mellitus with foot ulcer[ICD10: E11.621] Diagnosis: Essential (primary) hypertension[ICD10: I10] Diagnosis: Malignant neoplasm of prostate[ICD10: C61] Diagnosis: Chronic obstructive pulmonary disease, unspecified[ICD10: J44.9] Diagnosis: Hypoxemia[ICD10: R09.02] Sarah Sanchez MD, [facility] CPT-4: 43111 10/04/2018 ([id number]) 23091 EST. PATIENT, LEVEL IV Diagnosis: Type 2 diabetes mellitus with hyperglycemia[ICD10: E11.65] Diagnosis: Essential (primary) hypertension[ICD10: I10] Diagnosis: Malignant neoplasm of prostate[ICD10: C61] Sarah Sanchez MD, [facility] CPT-4: 14828 08/29/2018 ([id number]) 66654 EST. PATIENT, LEVEL IV Diagnosis: Malignant neoplasm of prostate[ICD10: C61] Dorene Sanchez MD, [facility] CPT-4: 66271 02/25/2018 25349 EST. PATIENT, LEVEL IV Diagnosis: Generalized abdominal pain[ICD10: R10.84] Diagnosis: Unspecified jaundice[ICD10: R17] Diagnosis: Gross hematuria[ICD10: R31.0] Kiki Sanchez MD, [facility] CPT-4 : 21843 02/20/2018 ([id number]) 84922 EST. PATIENT, LEVEL IV Diagnosis: Type 2 diabetes mellitus with hyperglycemia[ICD10: E11.65] Diagnosis: Essential (primary) hypertension[ICD10: I10] Diagnosis: Chronic kidney disease, stage 3 (moderate)[ICD10: N18.3] Diagnosis: Chronic pain syndrome[ICD10: G89.4] Diagnosis: Other specified hypothyroidism[ICD10: E03.8] Diagnosis: Encounter for screening for malignant neoplasm of prostate[ICD10: Z12.5] Diagnosis: Encounter for immunization[ICD10: Z23] Sarah Sanchez MD, [facility] CPT-4: 15626 02/05/2018 ([id number]) 00410 EST. PATIENT, LEVEL IV Diagnosis: Type 2 diabetes mellitus with hyperglycemia[ICD10: E11.65] Diagnosis: Essential (primary) hypertension[ICD10: I10] Dorene Sanchez MD, [facility] CPT-4: 56421 11/08/2017 ([id number]) 74689 EST. PATIENT, LEVEL IV Diagnosis: Type 2 diabetes mellitus with hyperglycemia[ICD10: E11.65] Diagnosis: Chronic pain syndrome[ICD10: G89.4] Diagnosis: Essential (primary) hypertension[ICD10: I10] Diagnosis: Chronic kidney disease, stage 3 (moderate)[ICD10: N18.3] Diagnosis: Localized edema[ICD10: R60.0] Dorene Sanchez MD, [facility] CPT- 4: 56971 09/20/2017 ([id number]) 04036 EST. PATIENT, LEVEL III Diagnosis: Type 2 diabetes mellitus with hyperglycemia[ICD10: E11.65] Sarah Sanchez MD, [facility] CPT-4: 62941 06/25/2017 ([id number]) 74615 EST. PATIENT, LEVEL III Diagnosis: Cellulitis of left lower limb[ICD10: L03.116] Sarah Sanchez MD, [facility] CPT-4: 12402 06/07/2017 ([id number]) 45722 EST. PATIENT, LEVEL III Diagnosis: Localized edema[ICD10: R60.0] Diagnosis: Type 2 diabetes mellitus with foot ulcer[ICD10: E11.621] Sarah Sanchez MD , [facility] CPT-4: 63791 05/03/2017 ([id number]) 98568 EST. PATIENT, LEVEL III Diagnosis: Cellulitis of left lower limb[ICD10: L03.116] Diagnosis: Localized edema[ICD10: R60.0] Sarah Sanchez MD, [facility] CPT-4: 33163 04/02/2017 ([id number]) Miscellaneous no charge Diagnosis: Localized edema[ICD10: R60.0] Diagnosis: Cellulitis of left lower limb[ICD10: L03.116] Sarah Sanchez MD, [facility] CPT-4: 65466 03/26/2017 ([id number]) 56306 EST. 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 PATIENT, LEVEL IV Diagnosis: Type 2 diabetes mellitus with hyperglycemia[ICD10: E11.65] Diagnosis: Other specified hypothyroidism[ICD10: E03.8] Diagnosis: Essential (primary) hypertension[ICD10: I10] Sarah Sanchez MD, [facility] CPT-4: 20282 03/08/2017 ([id number]) 40780 EST. PATIENT, LEVEL III Diagnosis: Type 2 diabetes mellitus with hyperglycemia[ICD10: E11.65] Diagnosis: Other specified hypothyroidism[ICD10: E03.8] Sarah Sanchez MD, [facility] CPT-4: 38090 12/06/2016 [id number]) 39225 EST. PATIENT, LEVEL IV Diagnosis: Essential (primary) hypertension[ICD10: I10] Diagnosis: Chronic kidney disease, stage 3 (moderate)[ICD10: N18.3] Dorene Sanchez MD, [facility] CPT-4: 23357 11/28/2016 ([id number]) 20269 EST. PATIENT, LEVEL IV Diagnosis: Essential (primary) hypertension[ICD10: I10] Diagnosis: Chronic pain syndrome[ICD10: G89.4] Diagnosis: Chronic kidney disease, stage 3 (moderate)[ICD10: N18.3] Diagnosis: Vitamin B12 deficiency anemia due to intrinsic factor deficiency[ ICD10: D51.0] Diagnosis: Other specified hypothyroidism[ICD10: E03.8] [facility] CPT-4: 31857 05/04/2016 39734 EST. PATIENT, LEVEL III Diagnosis: Chronic pain syndrome[ICD10: G89.4] Diagnosis: Essential (primary) hypertension[ICD10: I10] Diagnosis: Other specified hypothyroidism[ICD10: E03.8] [facility] CPT-4: 57802 11/04/2015 36426 EST. PATIENT, LEVEL III Diagnosis: Chronic pain syndrome[ICD10: G89.4] Diagnosis: Essential (primary) hypertension[ICD10: I10] Kiki Sanchez MD, [facility] CPT-4: 29892 07/30/2015 ([id number]) OFFICE/OUTPATIENT VISIT NEW Diagnosis: ESSENTIAL HYPERTENSION[ICD9: 401.9] Diagnosis: HYPOTHYROIDISM[ICD9: 244.9] Diagnosis: ANEMIA[ICD9: 285.9] Diagnosis: Vitamin B12 deficiency[ICD9: 266.2] Diagnosis: CHRONIC PAIN SYNDROME[ICD9: 338.4] Diagnosis: Chronic renal insufficiency, stage III (moderate)[ICD9: 585.3] Diagnosis: GOUT[ICD9: 274.9] Dorene Sanchez MD, [facility] CPT-4: 06615 01/26/2015 Plan of Care Planned Activity Notes [...] warmth, discharge. 10/18/2018 Appointment: Kiki Menjivar WPtel: [address] [place], [place] [phone] (30 min) [facility] 10/18/2018 Patient Education: Patient Medication Summary Completed [...] to weakness 10/14/2018 Appointment: Kiki Menjivar WPtel: [address] [place], [place] [address] (30 min) [facility] 10/14/2018 Patient Education: Patient Medication Summary Completed [...] discharge. 10/10/2018 Appointment: Kiki Menjivar WPtel: [phone] [facility] (30 min) Complex 10/10/2018 Patient Education: Patient Medication Summary Completed 10/10/2018 Visit Plan: DM with peripheral neuropathy-paperwork completed for diabetic shoes and will fax to Dr Bauer HTN-controlled -no changes Pgxebhdyu-QTPE-AYG-prostate cancer with mets- patient qualifies for oxygen-oxygen saturation dropped to 86% on room air during ambulation but increased to 99% on 2L NC at rest-will send orders to [facility] for continue oxygen at 2L per nasal cannula 10/04/2018 Appointment: Sarah Hernandes WPtel: [phone] [phone] (30 min) Complex 10/04/2018 Patient Education: Patient [...] Dr Moreno 08/29/2018 Appointment: Sarah Hernandes WPtel: [phone] [phone] (15 min) Moderate 08/29/2018 Patient Education: Patient Medication Summary Completed 08/29/2018 Referral: Edgard Rivera MD WPtel: [facility] [place]. Patient informed. Referral info faxed. Completed 02/27/2018 Visit Plan: Recurrent prostate cancer - I have recommended a referral to Dr. Rivera. We discussed the case at length today- he is not interested in extensive treatment, but if possible to extend his quantity and quality of life, he would like to try. 02/25/2018 Appointment: [facility]ore[facility] Sanchez [facility]Ptel[facility] (15 min) Moderate 02/25/2018 Patient Education: Patient Medication Summary Completed 02/25/2018 Care Plan: Referral Order SNOMED-CT : [id number] Pending 02/25/2018 Visit Plan: Intermittent abdominal pain, jaundice, itching - will check labs and treat as indicated - pt is to go to the ER with any acute change in symptoms or any acute concerns. 02/20/2018 Appointment: [facility]jivar WPtel[facility] (30 min) Complex 02/20/2018 Patient Education: Patient [...] surrogate. 11/30/2017 Appointment: [facility] Hernand[facility]Ptel[facility] [phone] [phone] [facility] - Annual Wellness Visit 11/30/2017 Patient [...] increase the victoza to 1.2 11/08/2017 Appointment: [phone] [facility] (15 min) Moderate 11/08/2017 Patient Education: [...] understands the consequences of over-medication. 09/20/2017 Appointment: [facility]Ptel[phone] [facility] (15 min) Moderate 09/20/2017 Patient Education: [...] glucose control. 06/25/2017 Appointment: Sarah Hernandes WPtel: [phone] [phone] (30 min) Complex 06/25/2017 Patient Education: Patient Medication Summary Completed 06/25/2017 Appointment: Sarah Hernandes WPtel: [phone] [place] (30 min) Complex 06/22/2017 Visit Plan: Cellulitis - start oral antibiotics as previously directed, return to clinic as previously directed, call for acute change in symptoms, worsening redness, warmth, discharge. 06/07/2017 Appointment: Sarah Hernandes WPtel: [phone] (30 min) Complex 06/07/2017 Patient Education: Patient Medication Summary Completed 06/07/2017 Patient Education: Obesity Completed 06/07/2017 Appointment: Dorene Sanchez WPtel: [facility] [place] (15 min) Moderate 05/31/2017 Visit Plan: Edema-significantly improved-no changes Ulcer- left lower leg and foot-seeing Dr Norwood at wound care-appt scheduled with Dr Frausto for vascular evaluation 05/03/2017 Appointment: Sarah Hernandes WPtel: [phone] (15 min) Moderate 05/03/2017 Patient Education: Patient Medication Summary Completed 05/03/2017 Patient Education: Obesity Completed 05/03/2017 Visit Plan: Exdvdjcoiz-avjuphpft-tpnrhwb to finish abx-no further treatment indicated Edema-significantly improved-no longer weeping- continue unna boots twice weekly with home health 04/02/2017 Appointment: Sarah Hernandes WPtel: [phone] [place] (30 min) Complex 04/02/2017 Patient Education: Patient Medication Summary Completed 04/02/2017 Patient Education: Obesity Completed 04/02/2017 Visit Plan: Cellulitis-left leg-continue levaquin Edema- increase lasix/potassium-consult [facility] for unna boots/dressing changes 03/26/2017 Appointment: [facility] Hernandes WPtel[facility] [phone] [phone] (15 min) Moderate 03/26/2017 Patient Education: Patient [...] indomethacin-stop aleve 03/22/2017 Appointment: Sarah Hernandes WPtel: [phone] (15 min) Moderate 03/22/2017 [...] of control. 03/08/2017 Appointment: Sarah Hernandes WPtel[facility] [phone] [phone] (30 min) Complex 03/08/2017 Patient Education: Patient [...] care surrogate. 11/30/2016 Appointment: Sarah Hernandes WPtel[facility] [phone] [phone] [facility] - Annual Wellness Visit 11/30/2016 Patient [...] in fluids. 11/28/2016 Appointment: Dorene Sanchez [facility]Ptel[phone] [facility] (15 min) Moderate 11/28/2016 Patient Education: [...] 01/26/2015 Referral: Edgard Rivera MD WPtel: [address] [place] Referral Appointment Requested Instructions Comment WRAP LEGS-THIGHS TO TOES LEVAQUIN 500MG DAILY [...] YEAR SHINGLES VACCINATION TO BE ADMINISTERED AT [facility] RECOMMEND OBTAINING MEDICAL POWER OF PURCHASING CONTRACTING CLERK AND LIVING WILL PATIENT DOES NOT HAVE [...] DOPA paperwork for health care surrogate. . Edema - pt has been advised [...] change in symptoms, worsening redness, warmth, discharge. RETURN LATER THIS WEEK FOR FASTING LABS [...] scheduled with Dr Frausto for vascular evaluation victoza 0.6mg daily . Diabetes Mellitus - [...] b12 shots. WOUND CARE APPT ANTIBIOTIC TO [facility] . Cellulitis - start oral antibiotics as [...] YEAR SHINGLES VACCINATION TO BE ADMINISTERED AT [facility] RECOMMEND OBTAINING MEDICAL POWER OF PURCHASING CONTRACTING CLERK AND LIVING WILL PATIENT DOES NOT HAVE [...] YEAR SHINGLES VACCINATION TO BE ADMINISTERED AT [facility] RECOMMEND OBTAINING MEDICAL POWER OF PURCHASING CONTRACTING CLERK AND LIVING WILL PATIENT DOES NOT HAVE [...] understands the consequences of over- medication. . Hypertension - well controlled - continue [...] with supportive care and medication monitoring. . DM with peripheral neuropathy-paperwork completed for diabetic shoes and will fax to Dr Bauer HTN-controlled -no changes Fdfqilhqh-EZDA-FFY-prostate cancer with mets- patient qualifies for oxygen- [...] change in symptoms or any acute concerns. . Nrlvwfssya-rdecqsdmd-vgugdtd to finish abx-no further treatment indicated Edema-significantly improved-no longer weeping-continue unna boots twice weekly with home health REPEAT HGB A1C, CMP, TSH, FREE T4 IN 3 MONTHS CUT OUT SODA, LIMIT SWEETS, CUT BACK ON CARBS (BREADS, PASTAS, POTATOES . DM-new diagnosis-discussed diabetes in detail today including diet and exercise-patient wants to try diet/exercise x 3 months before agreeing to medication-will plan for repeat labs in 3 months-sooner if needed . Hypertension - well controlled - continue with current medications, continue with no added salt diet. Pt has been encouraged to exercise daily. The pt has been advised to call the office if there are any acute concerns about change in blood pressure readings at home. Renal failure - continue with increase in fluids. . Diabetes Mellitus - controlled - per [...] months based on previous levels of control. INCREASE LASIX AND POTASSIUM TO TWICE DAILY [facility] . Cellulitis-left leg-continue levaquin Edema-increase lasix/potassium-consult [facility] for unna boots/dressing changes REPEAT HGB A1C, CMP, TSH, FREE T4 IN 3 MONTHS CUT OUT SODA, LIMIT SWEETS, CUT BACK ON CARBS (BREADS, PASTAS, POTATOES . DM-new diagnosis-discussed diabetes in detail today including diet and exercise-patient wants to try diet/exercise x 3 months before agreeing to medication-will plan for repeat labs in 3 months-sooner if needed
--- OUTSIDE RECORDS SUMMARY | 2018-11-26 11:28 | XMS REPORT | CCD ---
Author Author [facility]ne Sanchez Organization [facility] Address [address] [place] [address] Phone Care Team Providers Care [facility] Counsel Name Role Phone PP Unavailable CCM Unavailable Summary Purpose Interface Exchange Insurance Providers Payer name Policy type / Coverage type Covered democrat ID Effective Begin Date Effective End Date WPS Medicare Part B Medicare Part B [id number] Unknown Unknown Family history Father Diagnosis Age At Onset Stroke Unknown Mother Diagnosis Age At Onset Stroke Unknown Diabetes mellitus Type 2 Unknown Social History Social History Element Codes Description Effective Dates Tobacco history SNOMED CT: 963767820 Currently uses smokeless tobacco Chews 05/04/2016 Marital status Unknown 01/26/2015 Number of children Unknown 3 01/26/2015 Employment Unknown Retired 01/26/[address]: 505688335 Never drinks alcohol quit in July 2014 [...] ICD-9: 682.6 ICD-10: L03.115 Active 10/10/2018 Unknown Chronic obstructive pulmonary disease, unspecified ICD-9: 496 ICD-10: J44.9 Active 10/04/2018 Unknown Localized edema ICD-9 : 782.3 ICD-10: R60.0 Active 03/22/2017 Unknown Weakness ICD-9: 780.79 ICD-10: R53.1 Active [...] limb ICD-9: 682.6 ICD-10: L03.115 10/10/2018 Active Chronic obstructive pulmonary disease, unspecified ICD-9: 496 ICD-10: J44.9 10/04/2018 Active Localized edema ICD-9 : 782.3 ICD-10: R60.0 03/22/2017 Active Weakness ICD-9: 780.79 ICD-10: R53.1 10/14/2018 [...] Fill Instructions oxycodone 20 mg tablet RxNorm: 6451421 1/2 Tablet(s) PO Q6 as needed 10/14/2018 11/12/2018 Active Keflex 500 mg capsule RxNorm: 669230 1 Capsule(s) PO TID 201810/19/2018 Active potassium chloride ER 10 mEq tablet,extended release RxNorm: 400977 1 Tablet(s) PO daily 10/10/2018 11/08/2018 Active Lasix 20 mg tablet RxNorm: 634564 1 Tablet(s) PO BID 201804/07/2019 Active albuterol sulfate 2.5 mg/3 mL (0.083 %) solution for nebulization RxNorm: 003609 1 Milliliter(s) INH TID DX J44.9 10/04/2018 01/31/2019 Active gabapentin 100 mg capsule RxNorm: 506420 TAKE ONE CAPSULE BY MOUTH IN THE EVENING AT 5PM 09/24/2018 03/22/2019 Active oxycodone 20 mg tablet RxNorm: 2679701 1/2 Tablet(s) PO Q6 as needed 09/12/2018 10/11/2018 Inactive oxycodone 20 mg tablet RxNorm: 0982054 1/2 Tablet(s) PO Q6 as needed 08/15/2018 09/11/2018 Inactive oxycodone 20 mg tablet RxNorm: 7157830 1/2 Tablet(s) PO Q6 as needed 07/16/2018 08/14/2018 Inactive oxycodone 20 mg tablet RxNorm: 3867219 1/2 Tablet(s) PO Q6 as needed 06/14/2018 07/13/2018 Inactive gabapentin 100 mg capsule RxNorm: 030375 TAKE ONE CAPSULE BY MOUTH IN THE EVENING AT 5PM 05/30/2018 09/23/2018 Inactive oxycodone 20 mg tablet RxNorm: 3981643 1/2 Tablet(s) PO Q6 as needed 05/15/2018 06/13/2018 Inactive oxycodone 20 mg tablet RxNorm: 3387481 1/2 Tablet(s) PO Q6 as needed 04/12/2018 05/11/2018 Inactive oxycodone 20 mg tablet RxNorm: 0716019 1/2 Tablet(s) PO Q6 as needed 03/11/2018 04/09/2018 Inactive levothyroxine 200 mcg tablet RxNorm: 293346 1 Tablet(s) PO daily 02/21/2018 02/15/2019 Active Cipro 500 mg tablet RxNorm: 250679 1 Tablet(s) PO BID 201702/20/2018 Inactive levothyroxine 200 mcg tablet RxNorm: 716105 1 Tablet(s) PO daily 02/21/2018 02/20/2018 Inactive Cipro 500 mg tablet RxNorm: 163200 1 Tablet(s) PO BID 201703/02/2018 Inactive oxycodone 20 mg tablet RxNorm: 8571273 1/2 Tablet(s) PO Q6 as needed 02/12/2018 03/10/2018 Inactive oxycodone 20 mg tablet RxNorm: 4380875 1/2 Tablet(s) PO Q6 as needed 01/16/2018 02/11/2018 Inactive gabapentin 100 mg capsule RxNorm: 445941 TAKE ONE CAPSULE BY MOUTH IN THE EVENING AT 5PM 01/15/2018 05/29/2018 Inactive bisoprolol 5 mg-hydrochlorothiazide 6.25 mg tablet RxNorm: 776501 TAKE ONE TABLET BY MOUTH DAILY 01/01/2018 12/26/2018 Active oxycodone 20 mg tablet RxNorm: 7439951 1/2 Tablet(s) PO Q6 as needed 12/20/2017 01/14/2018 Inactive oxycodone 20 mg tablet RxNorm: 6299247 1/2 Tablet(s) PO Q6 as needed 11/20/2017 12/19/2017 Inactive Victoza 2-Dino 0.6 mg/0.1 mL (18 mg/3 mL) subcutaneous pen injector RxNorm: 702876 1.2 Milligram(s) SQ daily 11/08/201712/07 Inactive oxycodone 20 mg tablet RxNorm: 8350375 1/2 Tablet(s) PO Q6 as needed 10/19/2017 11/17/2017 Inactive gabapentin 100 mg capsule RxNorm: 001517 1 Capsule(s) PO QPM at 5 pm 09/20/2017 01/14/2018 Inactive Lasix 20 mg tablet RxNorm: 636437 1 Tablet(s) QAM at 5pm 12/201703/18/2018 Inactive oxycodone 20 mg tablet RxNorm: 8626042 1/2 Tablet(s) PO Q6 as needed 09/18/2017 10/17/2017 Inactive oxycodone 20 mg tablet RxNorm: 4811343 1/2 Tablet(s) PO Q6 as needed 08/14/2017 09/12/2017 Inactive ketoconazole 2 % topical cream RxNorm: 857672 1 Gram(s) TOP BID to affected area until healed 08/03/2017 No Stop Date Active oxycodone 20 mg tablet RxNorm: 9422346 1/2 Tablet(s) PO Q6 as needed 07/17/2017 08/13/2017 Inactive pen needle, diabetic 31 gauge x 5/16" RxNorm: 1 Unit Dose Miscellaneous daily 06/25/2017 03/21/2018 Inactive daily use with victoza Bactrim DS 800 mg-160 mg tablet RxNorm: 539577 1 Tablet(s) PO BID Dr Norwood 06/25/2017 07/04/2017 Inactive Victoza 2-Dino 0.6 mg/0.1 mL (18 mg/3 mL) subcutaneous pen injector RxNorm: 107348 0.6 Milligram(s) SQ daily 06/25/201707/24 Inactive doxycycline hyclate 100 mg tablet RxNorm: 709660 1 Tablet(s) PO BID Dr Norwood 06/21/2017 06/30/2017 Inactive oxycodone 20 mg tablet RxNorm: 8099389 1/2 Tablet(s) PO Q6 as needed 06/14/2017 07/13/2017 Inactive clindamycin 150 mg capsule RxNorm: 996169 1 Capsule(s) PO Q8 06/16/2017 Inactive levothyroxine 175 mcg tablet RxNorm: 778790 TAKE ONE TABLET BY MOUTH DAILY 06/04/2017 09/01/2017 Inactive levothyroxine 175 mcg tablet RxNorm: 694009 TAKE ONE TABLET BY MOUTH DAILY 06/04/2017 11/30/2017 Inactive bisoprolol 5 mg-hydrochlorothiazide 6.25 mg tablet RxNorm: 163697 TAKE ONE TABLET BY MOUTH DAILY 05/24/2017 11/19/2017 Inactive oxycodone 20 mg tablet RxNorm: 8912980 1/2 Tablet(s) PO Q6 as needed 05/14/2017 06/12/2017 Inactive potassium chloride ER 10 mEq capsule,extended release RxNorm: 844066 TAKE ONE CAPSULE BY MOUTH DAILY NEEDED FOR 5 DAYS THEN NEEDED WITH LASIX 04/17/2017 10/13/2017 Inactive Lasix 20 mg tablet RxNorm: 849022 TAKE ONE TABLET BY MOUTH DAILY NEEDED 04/17/2017 09/19/2017 Inactive oxycodone 20 mg tablet RxNorm: 9633261 1/2 Tablet(s) PO Q6 as needed 04/12/2017 05/11/2017 Inactive Colcrys 0.6 mg tablet RxNorm: 925391 2 tabs at onset then may repeat 1 tab in 1 hours if needed- Tablet(s) PO 04/09/2017 No Stop Date Active then take daily until gout resolved Bactrim DS 800 mg-160 mg tablet RxNorm: 725982 1 Tablet(s) PO BID 04/09/2017 04/08/2017 Inactive dc levaquin Bactrim DS 800 mg-160 mg tablet RxNorm: 977104 1 Tablet(s) PO BID 04/09/2017 04/15/2017 Inactive dc levaquin Levaquin 500 mg tablet RxNorm: 587797 1 Tablet(s) PO daily 04/02/2017 Inactive Levaquin 500 mg tablet RxNorm: 629955 1 Tablet(s) PO daily 06/06/2017 Inactive indomethacin 25 mg capsule RxNorm: 618927 1 Capsule(s) PO TID PRN 03/22/2017 03/22/2017 Inactive Lasix 20 mg tablet RxNorm: 908092 1 Tablet(s) PO QDAY PRN 02/201704/16/2017 Inactive daily x 5 days then as needed Levaquin 500 mg tablet RxNorm: 081291 1 Tablet(s) PO daily 02/201703/31/2017 Inactive potassium chloride ER 10 mEq capsule,extended release RxNorm: 364415 1 Capsule(s) PO QDAY PRN 03/22/2017 04/16/2017 Inactive daily x 5 days then as needed with lasix oxycodone 20 mg tablet RxNorm: 2058589 1/2 Tablet(s) PO Q6 as needed 03/08/2017 04/06/2017 Inactive bisoprolol 5 mg-hydrochlorothiazide 6.25 mg tablet RxNorm: 459105 TAKE ONE TABLET BY MOUTH DAILY 02/14/2017 05/14/2017 Inactive oxycodone 20 mg tablet RxNorm: 3498935 1/2 Tablet(s) PO Q6 as needed 02/08/2017 03/07/2017 Inactive oxycodone 20 mg tablet RxNorm: 1672566 1/2 Tablet(s) PO Q6 as needed 01/08/2017 02/06/2017 Inactive levothyroxine 175 mcg tablet RxNorm: 260154 1 Tablet(s) PO daily 12/06/2016 06/03/2017 Inactive [SAVINGS FOR NON-COVERED DRUGS -- BIN:[id number], PCN: ASPROD1, Group: XXXXX, ID# XXXXXXX, Questions: . THIS IS NOT INSURANCE.] oxycodone 20 mg tablet RxNorm: 6320321 1/2 Tablet(s) PO Q6 as needed 12/04/2016 01/02/2017 Inactive oxycodone 20 mg tablet RxNorm: 9562335 1/2 Tablet(s) PO Q6 as needed 11/09/2016 12/03/2016 Inactive bisoprolol 5 mg-hydrochlorothiazide 6.25 mg tablet RxNorm: 523822 TAKE ONE TABLET BY MOUTH DAILY 11/08/2016 02/05/2017 Inactive oxycodone 20 mg tablet RxNorm: 5170714 1/2 Tablet(s) PO Q6 as needed 10/05/2016 11/03/2016 Inactive oxycodone 20 mg tablet RxNorm: 2097776 1/2 Tablet(s) PO Q6 as needed 09/06/2016 10/04/2016 Inactive oxycodone 20 mg tablet RxNorm: 3372221 1/2 Tablet(s) PO Q6 as needed 08/07/2016 09/05/2016 Inactive oxycodone 20 mg tablet RxNorm: 7852012 1/2 Tablet(s) PO Q6 as needed 07/04/2016 08/06/2016 Inactive oxycodone 20 mg tablet RxNorm: 8933886 1/2 Tablet(s) PO Q6 as needed 05/29/2016 07/03/2016 Inactive levothyroxine 150 mcg tablet RxNorm: 316530 1 Tablet(s) PO daily 04/10/2016 04/09/2016 Inactive [SAVINGS FOR NON-COVERED DRUGS -- BIN:[id number], PCN: ASPROD1, Group: XXXXX, ID# XXXXXXX, Questions: . THIS IS NOT INSURANCE.] oxycodone 20 mg tablet RxNorm: 4583800 1/2 Tablet(s) PO Q6 as needed 04/10/2016 05/28/2016 Inactive levothyroxine 150 mcg tablet RxNorm: 964280 1 Tablet(s) PO daily 04/10/2016 10/06/2016 Inactive [SAVINGS FOR NON-COVERED DRUGS -- BIN:617138, PCN: ASPROD1, Group: XXXXX, ID# XXXXXXX, Questions: . THIS IS NOT INSURANCE.] bisoprolol 5 mg-hydrochlorothiazide 6.25 mg tablet RxNorm: 221906 1 Tablet(s) PO daily 02/16/2016 12/31/2017 Inactive oxycodone 20 mg tablet RxNorm: 0165342 1/2 Tablet(s) PO Q6 as needed 02/16/2016 04/09/2016 Inactive oxycodone 20 mg tablet RxNorm: 0722239 1/2 Tablet(s) PO Q6 as needed 01/04/2016 02/15/2016 Inactive bisoprolol 5 mg-hydrochlorothiazide 6.25 mg tablet RxNorm: 440813 1 Tablet(s) PO daily 11/19/2015 01/17/2016 Inactive bisoprolol 5 mg-hydrochlorothiazide 6.25 mg tablet RxNorm: 807889 1 Tablet(s) PO daily 11/04/2015 11/18/2015 Inactive oxycodone 20 mg tablet RxNorm: 6396132 1/2 Tablet(s) PO Q6 as needed 10/27/2015 01/03/2016 Inactive levothyroxine 150 mcg tablet RxNorm: 078129 1 Tablet(s) PO daily 08/26/2015 02/21/2016 Inactive [SAVINGS FOR NON-COVERED DRUGS -- BIN:[id number], PCN: ASPROD1, Group: XXXXX, ID# XXXXXXX, Questions: . THIS IS NOT INSURANCE.] bisoprolol 5 mg-hydrochlorothiazide 6.25 mg tablet RxNorm: 412281 1 Tablet(s) PO daily 08/26/2015 10/24/2015 Inactive oxycodone 10 mg tablet RxNorm: 6610643 1 Tablet(s) PO Q6 as needed 05/06/2015 10/26/2015 Inactive levothyroxine 150 mcg tablet RxNorm: 058493 1 Tablet(s) PO daily 02/05/2015 08/03/2015 Inactive [SAVINGS FOR NON-COVERED DRUGS -- BIN:639389, PCN: ASPROD1, Group: XXXXX, ID# [id number], Questions: . THIS IS NOT INSURANCE.] Vitamin D2 50,000 unit capsule RxNorm: 247290 1 Capsule(s) PO weekly 02/05/2015 05/05/2015 Inactive [SAVINGS FOR NON-COVERED DRUGS -- BIN:226498, PCN: ASPROD1, Group: XXXXX, ID# XXXXXXX, Questions: . THIS IS NOT INSURANCE.] Vitamin D2 50,000 unit capsule RxNorm: 347929 1 Capsule(s) PO weekly 02/05/2015 02/04/2015 Inactive bisoprolol 5 mg-hydrochlorothiazide 6.25 mg tablet RxNorm: 493154 1 Tablet(s) PO daily 01/26/2015 02/24/2015 Inactive levothyroxine 200 mcg tablet RxNorm: 691324 1 Tablet(s) PO daily 01/26/2015 01/25/2015 Inactive levothyroxine 200 mcg tablet RxNorm: 580433 1 Tablet(s) PO every other day 01/26/2015 02/04/2015 Inactive [SAVINGS FOR NON-COVERED DRUGS -- BIN:847088, PCN: ASPROD1, Group: XXXXX, ID# XXXXXXX, Questions: . THIS IS NOT INSURANCE.] aspirin 81 mg chewable tablet RxNorm: 307313 1 Tablet(s) PO daily No Start Date Active Plavix 75 mg tablet RxNorm: 639463 1 Tablet(s) PO daily manage by Dr Baig No Start Date Active simvastatin 40 mg tablet RxNorm: 844609 1 Tablet(s) PO QHS managed by Dr Baig No Start Date Active Colcrys 0.6 mg tablet RxNorm: 228092 2 tabs at onset then may repeat 1 tab in 1 hours if needed- Tablet(s) PO No Start Date 04/08/2017 Inactive then take daily until gout resolved aspirin 325 mg tablet RxNorm: 166785 1 Tablet(s) PO daily No Start Date 05/03/2016 Inactive levothyroxine 75 mcg tablet RxNorm: 232575 1 Tablet(s) PO every other day No Start Date 02/04/2015 Inactive takes qod with 200mcg oxycodone 10 mg tablet RxNorm: 2656440 1 Tablet(s) PO Q6 as needed No Start Date 05/05/2015 Inactive ketoconazole 2 % topical cream RxNorm: 434115 1 Gram(s) TOP BID to affected area until healed No Start Date 08/02/2017 Inactive indomethacin oral RxNorm: 5781 oral No Start Date 03/21/2017 Inactive Medication Administered No Medication Administered data Immunizations Vaccine Codes Date Status Pneumococcal (Adult) CVX: 33 02/05/2018 completed Pneumococcal (Adult) CVX: 133 11/30/2016 completed Assessments Condition Codes Effective Dates Weakness ICD-10: R53.1 ICD-9: 780.79 10/14/2018 Cellulitis of left lower limb ICD-10: L03.116 ICD-9: 682.6 10/14/2018 Cellulitis of right lower limb ICD-10: L03.115 ICD-9: 682.6 10/14/2018 Chronic obstructive pulmonary disease, unspecified ICD-10: J44.9 ICD-9: 496 10/14/2018 Localized edema ICD-10: R60.0 ICD-9: 782.3 10/14/2018 Malignant neoplasm of prostate ICD-10: C61 [...] Visit Effective Dates Notes lower leg pain 10/14/2018 lower leg pain [...] Code Item Item Code Result Date %Hba1C Ykh127 % HbA1c 79387-9 6.4 % 08/30/2018 %Hba1C Rjs026 Gluc Ave 137 mg/dL 08/30/2018 Culture Urine [id number] URINE CULTURE SEE NOTES 02/22/2018 Urine Culture [...] 24.5 pg 02/20/2018 Cbc With Differential Ord2 Coffee% 8.9 % 02/20/2018 Cbc With Differential Ord2 [...] 0.81 K/ul 02/20/2018 Cbc With Differential Ord2 Coffee ABS# 0.7 K/ul 02/20/2018 Cbc With Differential Ord2 Eos ABS# 0.4 K/ul 02/20/2018 Cbc With Differential Ord2 Baso ABS# 0.0 K/ul 02/20/2018 %Hba1C Myf424 % HbA1c 54714-8 7.7 % 02/20/2018 %Hba1C Nkj974 Gluc Ave 174 mg/dL 02/20/2018 Lipase Xcl330 LIPASE 17 U/L 02/20/2018 Microalbumin Eyx572 MicroAlb 6.5 mg/dL 02/20/2018 Amylase Ord34 AMYLASE 15 U/L 02/20/2018 Free T4 Vbo973 FREE T4 0.61 ng/dL 02/20/2018 Lipid Ord30 CHOL 203 mg/dL 02/20/2018 Lipid Ord30 HDL 7.0 mg/dl 02/20/2018 Lipid Ord30 TRIG 271 mg/dL 02/20/2018 Lipid Ord30 LDL 142 mg/dL 02/20/2018 Lipid Ord30 C/HDL 29.0 Ratio 02/20/2018 Comp Metabolic Nnu336 NA 134 mEq/L 02/20/2018 Comp Metabolic Zuk032 K 3.6 mEq/L 02/20/2018 Comp Metabolic Qnn406 CL 96 mEq/L 02/20/2018 Comp Metabolic Miu311 CO2 29.0 mEq/L 02/20/2018 Comp Metabolic Scv929 ANION GAP 13 02/20/2018 Comp Metabolic Dpv508 GLUCOSE 165 mg/dL 02/20/2018 Comp Metabolic Vyw621 Creat 1.2 mg/dL 02/20/2018 Comp Metabolic Tzg400 eGFR 63 ml/min/1.73m2 02/20/2018 Comp Metabolic Gcl514 BUN 14 mg/dL 02/20/2018 Comp Metabolic Lsz982 B/C Ratio 11.6 Ratio 02/20/2018 Comp Metabolic Vgz020 CALCIUM 8.5 mg/dL 02/20/2018 Comp Metabolic Ngz778 ALK PHOS 633 U/L 02/20/2018 Comp Metabolic Onv284 AST(SGOT) 112 U/L 02/20/2018 Comp Metabolic Hql778 ALT(SGPT) 148 U/L 02/20/2018 Comp Metabolic Uhj705 BILI T 6.8 mg/dL 02/20/2018 Comp Metabolic Phr811 ALBUMIN 3.3 g/dL 02/20/2018 Comp Metabolic Fuu098 TPRO 5.9 g/dL 02/20/2018 Comp Metabolic Dav587 GLOB 2.6 g/dL 02/20/2018 Comp Metabolic Idy851 A/G Ratio 1.3 Ratio 02/20/2018 Comp Metabolic Cfa355 Osmo 272 mOsmo 02/20/2018 Total Psa Ord10 [...] Metabolic Ord15 CALCIUM 9.2 mg/dL 11/09/2017 %Hba1C Mzv252 % HbA1c 78929-5 8.0 % 11/09/2017 %Hba1C Oge517 Gluc Ave 183 mg/dL 11/09/2017 Metabolic Ord15 [...] Ord15 CALCIUM 8.7 mg/dL 06/25/2017 Culture Wound [id number] WOUND CULTURE SEE NOTES 04/09/2017 Culture Wound [id number] Continued Results 04/09/2017 Amylase Ord34 AMYLASE 19 [...] 27.9 pg 03/22/2017 Cbc With Differential Ord2 Coffee% 8.3 % 03/22/2017 Cbc With Differential Ord2 [...] 1.35 K/ul 03/22/2017 Cbc With Differential Ord2 Coffee ABS# 1.4 K/ul 03/22/2017 Cbc With Differential Ord2 Eos ABS# 0.2 K/ul 03/22/2017 Cbc With Differential Ord2 Baso ABS# 0.0 K/ul 03/22/2017 Comp Metabolic Img989 NA 134 mEq/L 03/22/2017 Comp Metabolic Lbx517 K 4.5 mEq/L 03/22/2017 Comp Metabolic Wis189 CL 93 mEq/L 03/22/2017 Comp Metabolic Scx016 CO2 31.0 mEq/L 03/22/2017 Comp Metabolic Nfh987 ANION GAP 15 03/22/2017 Comp Metabolic Qtk640 GLUCOSE 198 mg/dL 03/22/2017 Comp Metabolic Dki838 Creat 1.5 mg/dL 03/22/2017 Comp Metabolic Xos186 eGFR 50 ml/min/1.73m2 03/22/2017 Comp Metabolic Amb978 BUN 32 mg/dL 03/22/2017 Comp Metabolic Kbd586 B/C Ratio 21.6 Ratio 03/22/2017 Comp Metabolic Ubq964 CALCIUM 8.4 mg/dL 03/22/2017 Comp Metabolic Bmh228 ALK PHOS 245 U/L 03/22/2017 Comp Metabolic Zqg053 AST(SGOT) 18 U/L 03/22/2017 Comp Metabolic Uih437 ALT(SGPT) 17 U/L 03/22/2017 Comp Metabolic Jak547 BILI T 0.8 mg/dL 03/22/2017 Comp Metabolic Vwh885 ALBUMIN 2.9 g/dL 03/22/2017 Comp Metabolic Bqz765 TPRO 6.3 g/dL 03/22/2017 Comp Metabolic Gym234 GLOB 3.4 g/dL 03/22/2017 Comp Metabolic Axb409 A/G Ratio 0.8 Ratio 03/22/2017 Comp Metabolic Ycw913 Osmo 281 mOsmo 03/22/2017 Lipase Grc069 LIPASE 12 U/L 03/22/2017 Comp Metabolic Dwa634 NA 142 mEq/L 03/09/2017 Comp Metabolic Oka611 K 4.8 mEq/L 03/09/2017 Comp Metabolic Voi474 CL 103 mEq/L 03/09/2017 Comp Metabolic Xll895 CO2 30.0 mEq/L 03/09/2017 Comp Metabolic Mbl315 ANION GAP 14 03/09/2017 Comp Metabolic Bfk767 GLUCOSE 152 mg/dL 03/09/2017 Comp Metabolic Wyf028 Creat 1.3 mg/dL 03/09/2017 Comp Metabolic Epi244 eGFR 56 ml/min/1.73m2 03/09/2017 Comp Metabolic Vvj457 BUN 23 mg/dL 03/09/2017 Comp Metabolic Ipe180 B/C Ratio 17.3 Ratio 03/09/2017 Comp Metabolic Vef504 CALCIUM 8.5 mg/dL 03/09/2017 Comp Metabolic Wvb767 ALK PHOS 97 U/L 03/09/2017 Comp Metabolic Bah954 AST(SGOT) 10 U/L 03/09/2017 Comp Metabolic Lwt223 ALT(SGPT) 6 U/L 03/09/2017 Comp Metabolic Gql529 BILI T 0.4 mg/dL 03/09/2017 Comp Metabolic Cft562 ALBUMIN 3.4 g/dL 03/09/2017 Comp Metabolic Tsq645 TPRO 6.2 g/dL 03/09/2017 Comp Metabolic Qnz983 GLOB 2.8 g/dL 03/09/2017 Comp Metabolic Ppb217 A/G Ratio 1.2 Ratio 03/09/2017 Comp Metabolic Sxl533 Osmo 290 mOsmo 03/09/2017 Free T4 Noc238 FREE T4 0.86 ng/dL 03/08/2017 Cbc With Differential Ord2 WBC 9.75 K/ul 03/08/2017 Cbc With Differential Ord2 RBC 4.47 M/ul 03/08/2017 Cbc With Differential Ord2 HGB 12.6 g/dl 03/08/2017 Cbc With Differential Ord2 HCT 41.9 % 03/08/2017 Cbc With Differential Ord2 Neut% 69.3 % 03/08/2017 Cbc With Differential Ord2 MCV 93.7 fl 03/08/2017 Cbc With Differential Ord2 Lymph% 16.7 % 03/08/2017 Cbc With Differential Ord2 MCH 28.2 pg 03/08/2017 Cbc With Differential Ord2 Coffee% 8.7 % 03/08/2017 Cbc With Differential Ord2 [...] 1.63 K/ul 03/08/2017 Cbc With Differential Ord2 Coffee ABS# 0.9 K/ul 03/08/2017 Cbc With Differential Ord2 Eos ABS# 0.5 K/ul 03/08/2017 Cbc With Differential Ord2 Baso ABS# 0.0 K/ul 03/08/2017 Tsh Ord6 hTSH II 4.52 uIU/mL 03/08/2017 %Hba1C Dff705 % HbA1c 50455-4 8.5 % 03/08/2017 %Hba1C Fmc586 Gluc Ave 197 mg/dL 03/08/2017 %Hba1C Ile235 % HbA1c 54964-4 9.8 % 12/04/2016 %Hba1C Bln620 Gluc Ave 235 mg/dL 12/04/2016 Tsh Ord6 hTSH II 10.65 uIU/mL 11/30/2016 Comp Metabolic Aoq889 NA 134 mEq/L 11/30/2016 Comp Metabolic Gbv328 K 5.0 mEq/L 11/30/2016 Comp Metabolic Ako268 CL 95 mEq/L 11/30/2016 Comp Metabolic Uvm426 CO2 34.0 mEq/L 11/30/2016 Comp Metabolic Net679 ANION GAP 10 11/30/2016 Comp Metabolic Ruz299 GLUCOSE 226 mg/dL 11/30/2016 Comp Metabolic Mzc127 Creat 1.3 mg/dL 11/30/2016 Comp Metabolic Vuu599 eGFR 56 ml/min/1.73m2 11/30/2016 Comp Metabolic Qwr541 BUN 21 mg/dL 11/30/2016 Comp Metabolic Hlw531 B/C Ratio 15.7 Ratio 11/30/2016 Comp Metabolic Atj074 CALCIUM 8.9 mg/dL 11/30/2016 Comp Metabolic Bdr387 ALK PHOS 112 U/L 11/30/2016 Comp Metabolic Oar771 AST(SGOT) 9 U/L 11/30/2016 Comp Metabolic Hwt318 ALT(SGPT) 7 U/L 11/30/2016 Comp Metabolic Syv980 BILI T 0.6 mg/dL 11/30/2016 Comp Metabolic Uye747 ALBUMIN 3.6 g/dL 11/30/2016 Comp Metabolic Pdl980 TPRO 6.4 g/dL 11/30/2016 Comp Metabolic Lss239 GLOB 2.9 g/dL 11/30/2016 Comp Metabolic Mgz851 A/G Ratio 1.2 Ratio 11/30/2016 Comp Metabolic Gya266 Osmo 278 mOsmo 11/30/2016 Lipid Ord30 CHOL [...] 13.0 % 11/30/2016 Cbc With Differential Ord2 MCH 30.6 pg 11/30/2016 Cbc With Differential Ord2 Coffee% 7.9 % 11/30/2016 Cbc With Differential Ord2 MCHC [...] 1.34 K/ul 11/30/2016 Cbc With Differential Ord2 Coffee ABS# 0.8 K/ul 11/30/2016 Cbc With Differential Ord2 Eos ABS# 0.3 K/ul 11/30/2016 Cbc With Differential Ord2 Baso ABS# 0.0 K/ul 11/30/2016 Free T4 Bew131 FREE T4 0.89 ng/dL 11/30/2016 Review of [...] rate 10/14/2018 None Full Exam - General 1995 Cardiovascular extremities Edema present: pitting 10/14/2018 None Full Exam - General 1995 Cardiovascular extremities Edema present: severity 1+ - 4 +: 4+ 10/14/2018 None Full Exam - General 1994 Cardiovascular extremities Edema present: bilateral 10/14/2018 None Full Exam - General 1995 Cardiovascular extremities Edema present: to thighs 10/14/2018 [...] Codes Date ADMIN PNEUMOCOCCAL VACCINE SNOMED CT: 75428967 CPT-4: G0009 02/05/2018 Pneumococcal Polysaccharide Vaccine, 23-Valent, Ad CPT-4: 79255 02/05/2018 PPPS, SUBSEQ VISIT CPT -4: G0439 11/30/2017 URINALYSIS NONAUTO W/O SCOPE CPT-4: 45052 03/22/2017 URINALYSIS NONAUTO W/O SCOPE CPT-4: 44022 03/21/2017 PPPS, SUBSEQ VISIT CPT -4: G0439 11/30/2016 PNEUMOCOCCAL VACC 13 JAVIER IM Formatting Model/CDA Sections, Assigned to SNOMED CT: 35928315 CPT-4: 80481Cplxhay 11/30/2016 ADMIN PNEUMOCOCCAL VACCINE SNOMED CT: 06562762 CPT-4: G0009 11/30/2016 Vital Signs Date Vital 10/14/2018 Blood Pressure 1: 120/56 Code : 8480-6 Heart Rate 1: 67 bpm Height: 5'10" SpO2: 92% 10/10/2018 Blood Pressure 1: 126/70 Code : 8480-6 BMI: 34.7 Code : 99832-2 Heart Rate 1 : 80 bpm Height: 5'10" SpO2: 96% Temperature: 37.1 (C) / 98.7 (F) Weight: 242 lbs 10/04/2018 Blood Pressure 1: 120/70 Code : 8480-6 Height: 5'10" SpO2: 96% 08/29/2018 Blood Pressure 1: 104/60 Code : 8480-6 BMI: 34.6 Code : 66676-4 Heart Rate 1 : 68 bpm Height: 5'10" SpO2: 98% Weight: 241 lbs 02/25/2018 Blood Pressure 1: 120/70 Code : 8480-6 BMI: 37.0 Code : 96658-6 Heart Rate 1 : 51 bpm Height: 5'10" SpO2: 97% Weight: 258 lbs 02/20/2018 Blood Pressure 1: 124/70 Code : 8480-6 BMI: 38.0 Code : 54185-3 Heart Rate 1 : 60 bpm Height: 5'10" SpO2: 96% Weight: 265 lbs 02/05/2018 Blood Pressure 1: 116/66 Code : 8480-6 BMI: 38.0 Code : 60557-6 Heart Rate 1 : 63 bpm Height: 5'10" SpO2: 98% Weight: 265 lbs 11/30/2017 Blood Pressure 1: 132/60 Code : 8480-6 BMI: 37.0 Code : 92262-8 Heart Rate 1 : 100 bpm Height: 5'10 " SpO2: 96% Waist Measure (cm): 122 cm Weight: 258 lbs 11/08/2017 Blood Pressure 1: 12664 Code : 8480-6 BMI: 37.2 Code : 22996-5 Heart Rate 1 : 92 bpm Height: 5'10" SpO2: 94% Weight: 259 lbs 09/20/2017 Blood Pressure 1: 122 Code : 8480-6 BMI: 36.9 Code : 44912-5 Heart Rate 1 : 57 bpm Height: 5'10" SpO2: 96% Weight: 257 lbs 06/25/2017 Blood Pressure 1: 124 Code : 8480-6 BMI: 37.0 Code : 44781-4 Height: 5'10 " Weight: 258 lbs 06/07/2017 Blood Pressure 1: 122 Code : 8480-6 BMI: 37.0 Code : 30123-3 Heart Rate 1 : 60 bpm Height: 5'10" SpO2: 94% Temperature: 36.4 (C) / 97.6 (F) Weight: 258 lbs 05/03/2017 Blood Pressure 1: 118 Code : 8480-6 BMI: 38.2 Code : 00368-4 Heart Rate 1 : 52 bpm Height: 5'10" SpO2: 98% Weight: 266 lbs 04/02/2017 Blood Pressure 1: 118 Code : 8480-6 BMI: 38.2 Code : 11729-3 Heart Rate 1 : 53 bpm Height: 5'10" SpO2: 93% Weight: 266 lbs 03/26/2017 Blood Pressure 1: 114 Code : 8480-6 BMI: 38.3 Code : 72403-2 Height: 5'10 " Weight: 267 lbs 03/22/2017 Blood Pressure 1: 122 Code : 8480-6 BMI: 40.0 Code : 60209-2 Heart Rate 1 : 52 bpm Height: 5'10" SpO2: 94% Weight: 279 lbs 03/08/2017 Blood Pressure 1: 124 Code : 8480-6 BMI: 39.4 Code : 75704-3 Heart Rate 1 : 51 bpm Height: 5'10" SpO2: 94% Weight: 274 lbs 8 oz 12/06/2016 Blood Pressure 1: 126/62 Code : 8480-6 BMI: 40.3 Code : 06701-0 Heart Rate 1 : 50 bpm Height: 5'10" SpO2: 94% Weight: 281 lbs 11/30/2016 Blood Pressure 1: 112/62 Code : 8480-6 BMI: 40.3 Code : 67080-6 Heart Rate 1 : 52 bpm Height: 5'10" SpO2: 93% Waist Measure (cm): 135 cm Weight: 281 lbs 11/28/2016 Blood Pressure 1: 132/72 Code : 8480-6 BMI: 40.3 Code : 90535-2 Heart Rate 1 : 50 bpm Height: 5'10" Weight: 281 lbs 05/04/2016 Blood Pressure 1: 128/78 Code : 8480-6 BMI: 38.5 Code : 24735-5 Heart Rate 1 : 74 bpm Height: 5'10" SpO2: 98% Weight: 268 lbs 8 oz 11/04/2015 Blood Pressure 1: 136/60 Code : 8480-6 BMI: 38.0 Code : 41358-0 Heart Rate 1 : 55 bpm Height: 5'10" SpO2: 94% Weight: 265 lbs 07/30/2015 Blood Pressure 1: 128/74 Code : 8480-6 BMI: 38.0 Code : 68640-9 Heart Rate 1 : 47 bpm Height: 5'10" SpO2: 97% Weight: 265 lbs 01/26/2015 Blood Pressure 1: 122/64 Code : 8480-6 BMI: 34.0 Code : 85371-3 Heart Rate 1 : 68 bpm Height: 5'10" Weight: 237 lbs Functional Status No Functional Status data History of Present Illness Symptom Name Status Result Effective Date Notes Location on the left 10/14/2018 None Location [...] J44.9] Diagnosis: Weakness[ICD10: R53.1] Kiki Sanchez MD, [facility] CPT-4: 29939 10/14/2018 43637 EST. PATIENT, LEVEL III Diagnosis: Localized edema[ICD10: R60.0] Diagnosis: Cellulitis of left lower limb[ICD10: L03.116] Diagnosis: Cellulitis of right lower limb[ICD10: L03.115] Kiki Sanchez MD, [facility] CPT-4: 47783 10/10/2018 ([id number]) 42431 EST. PATIENT, LEVEL IV Diagnosis: Type 2 diabetes mellitus with foot ulcer[ICD10: E11.621] Diagnosis: Essential (primary) hypertension[ICD10: I10] Diagnosis: Malignant neoplasm of prostate[ICD10: C61] Diagnosis: Chronic obstructive pulmonary disease, unspecified[ICD10: J44.9] Diagnosis: Hypoxemia[ICD10: R09.02] Sarah Sanchez MD, [facility] CPT-4: 50184 10/04/2018 ([id number]) 81912 EST. PATIENT, LEVEL IV Diagnosis: Type 2 diabetes mellitus with hyperglycemia[ICD10: E11.65] Diagnosis: Essential (primary) hypertension[ICD10: I10] Diagnosis: Malignant neoplasm of prostate[ICD10: C61] Sarah Sanchez MD, [facility] CPT-4: 16661 08/29/2018 ([id number]) 91282 EST. PATIENT, LEVEL IV Diagnosis: Malignant neoplasm of prostate[ICD10: C61] Dorene Sanchez MD, [facility] CPT-4: 69939 02/25/2018 73665 EST. PATIENT, LEVEL IV Diagnosis: Generalized abdominal pain[ICD10: R10.84] Diagnosis: Unspecified jaundice[ICD10: R17] Diagnosis: Gross hematuria[ICD10: R31.0] Kiki Sanchez MD, [facility] CPT-4 : 15442 02/20/2018 ([id number]) 67131 EST. PATIENT, LEVEL IV Diagnosis: Type 2 diabetes mellitus with hyperglycemia[ICD10: E11.65] Diagnosis: Essential (primary) hypertension[ICD10: I10] Diagnosis: Chronic kidney disease, stage 3 (moderate)[ICD10: N18.3] Diagnosis: Chronic pain syndrome[ICD10: G89.4] Diagnosis: Other specified hypothyroidism[ICD10: E03.8] Diagnosis: Encounter for screening for malignant neoplasm of prostate[ICD10: Z12.5] Diagnosis: Encounter for immunization[ICD10: Z23] Sarah Sanchez MD, [facility] CPT-4: 52148 02/05/2018 ([id number]) 58840 EST. PATIENT, LEVEL IV Diagnosis: Type 2 diabetes mellitus with hyperglycemia[ICD10: E11.65] Diagnosis: Essential (primary) hypertension[ICD10: I10] Dorene Sanchez MD, [facility] CPT-4: 83782 11/08/2017 ([id number]) 54778 EST. PATIENT, LEVEL IV Diagnosis: Type 2 diabetes mellitus with hyperglycemia[ICD10: E11.65] Diagnosis: Chronic pain syndrome[ICD10: G89.4] Diagnosis: Essential (primary) hypertension[ICD10: I10] Diagnosis: Chronic kidney disease, stage 3 (moderate)[ICD10: N18.3] Diagnosis: Localized edema[ICD10: R60.0] Dorene Sanchez MD, [facility] CPT- 4: 31450 09/20/2017 ([id number]) 75094 EST. PATIENT, LEVEL III Diagnosis: Type 2 diabetes mellitus with hyperglycemia[ICD10: E11.65] Sarah Sanchez MD, [facility] CPT-4: 74809 06/25/2017 ([id number]) 81477 EST. PATIENT, LEVEL III Diagnosis: Cellulitis of left lower limb[ICD10: L03.116] Sarah Sanchez MD, [facility] CPT-4: 97674 06/07/2017 ([id number]) 76286 EST. PATIENT, LEVEL III Diagnosis: Localized edema[ICD10: R60.0] Diagnosis: Type 2 diabetes mellitus with foot ulcer[ICD10: E11.621] Sarah Sanchez MD , [facility] CPT-4: 87360 05/03/2017 ([id number]) 62537 EST. PATIENT, LEVEL III Diagnosis: Cellulitis of left lower limb[ICD10: L03.116] Diagnosis: Localized edema[ICD10: R60.0] Sarah Sanchez MD, [facility] CPT-4: 79429 04/02/2017 ([id number]) Miscellaneous no charge Diagnosis: Localized edema[ICD10: R60.0] Diagnosis: Cellulitis of left lower limb[ICD10: L03.116] Sarah Sanchez MD, [facility] CPT-4: 96815 03/26/2017 ([id number]) 52105 EST. 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 PATIENT, LEVEL IV Diagnosis: Type 2 diabetes mellitus with hyperglycemia[ICD10: E11.65] Diagnosis: Other specified hypothyroidism[ICD10: E03.8] Diagnosis: Essential (primary) hypertension[ICD10: I10] Sarah Sanchez MD, [facility] CPT-4: 16527 03/08/2017 ([id number]) 03766 EST. PATIENT, LEVEL III Diagnosis: Type 2 diabetes mellitus with hyperglycemia[ICD10: E11.65] Diagnosis: Other specified hypothyroidism[ICD10: E03.8] Sarah Sanchez MD, [facility] CPT-4: 21180 12/06/2016 ([id number]) 80510 EST. PATIENT, LEVEL IV Diagnosis: Essential (primary) hypertension[ICD10: I10] Diagnosis: Chronic kidney disease, stage 3 (moderate)[ICD10: N18.3] Dorene Sanchez MD, [facility] CPT-4: 75113 11/28/2016 ([id number] 90327 EST. PATIENT, LEVEL IV Diagnosis: Essential (primary) hypertension[ICD10: I10] Diagnosis: Chronic pain syndrome[ICD10: G89.4] Diagnosis: Chronic kidney disease, stage 3 (moderate)[ICD10: N18.3] Diagnosis: Vitamin B12 deficiency anemia due to intrinsic factor deficiency[ ICD10: D51.0] Diagnosis: Other specified hypothyroidism[ICD10: E03.8] Dorene Sanchez MD, [facility] CPT-4: 60870 05/04/2016 83077 EST. PATIENT, LEVEL III Diagnosis: Chronic pain syndrome[ICD10: G89.4] Diagnosis: Essential (primary) hypertension[ICD10: I10] Diagnosis: Other specified hypothyroidism[ICD10: E03.8] Kiki Sanchez MD, [facility] CPT-4: 94269 11/04/2015 71035 EST. PATIENT, LEVEL III Diagnosis: Chronic pain syndrome[ICD10: G89.4] Diagnosis: Essential (primary) hypertension[ICD10: I10] Kiki Sanchez MD, [facility] CPT-4: 23070 07/30/2015 ([id number]) OFFICE/OUTPATIENT VISIT NEW Diagnosis: ESSENTIAL HYPERTENSION[ICD9: 401.9] Diagnosis: HYPOTHYROIDISM[ICD9: 244.9] Diagnosis: ANEMIA[ICD9: 285.9] Diagnosis: Vitamin B12 deficiency[ICD9: 266.2] Diagnosis: CHRONIC PAIN SYNDROME[ICD9: 338.4] Diagnosis: Chronic renal insufficiency, stage III (moderate)[ICD9: 585.3] Diagnosis: GOUT[ICD9: 274.9] Dorene Sanchez MD, [facility] CPT-4: 21510 01/26/2015 Plan of Care Planned Activity Notes [...] to weakness 10/14/2018 Appointment: Kiki Menjivar WPtel[facility] ([facility]) [facility] 10/14/2018 Patient Education: Patient Medication Summary Completed [...] discharge. 10/10/2018 Appointment: Kiki Menjivar WPtel: [phone] [facility] (30 min) Complex 10/10/2018 Patient Education: Patient Medication Summary Completed 10/10/2018 Visit Plan: DM with peripheral neuropathy-paperwork completed for diabetic shoes and will fax to Dr Bauer HTN-controlled -no changes Zfoperrjl-BOCB-BSR-prostate cancer with mets- patient qualifies for oxygen-oxygen saturation dropped to 86% on room air during ambulation but increased to 99% on 2L NC at rest-will send orders to [facility] for continue oxygen at 2L per nasal cannula 10/04/2018 Appointment: Sarah Hernandes WPtel: [phone] [phone] (30 min) Complex 10/04/2018 Patient Education: Patient [...] Moreno 08/29/2018 Appointment: Sarah Hernandes WPtel: [phone] [phone] (15 min) Moderate 08/29/2018 Patient Education: Patient Medication Summary Completed 08/29/2018 Referral: Edgard Rivera MD WPtel: [facility] Moreno. Patient informed. Referral info faxed. Completed 02/27/2018 Visit Plan: Recurrent prostate cancer - I have recommended a referral to Dr. Rivera. We discussed the case at length today- he is not interested in extensive treatment, but if possible to extend his quantity and quality of life, he would like to try. 02/25/2018 App[facility]ment: [phone] [facility] ([facility] min) Moderate 02/25/2018 Patient Education: Patient Medication Summary Completed 02/25/2018 Care Plan: Referral Order SNOMED-CT : [id number] Pending 02/25/2018 Visit Plan: Intermittent abdominal pain, jaundice, itching - will check labs and treat as indicated - pt is to go to the ER with any acute change in symptoms or any acute concerns. 02/20/2018 Appointment: [phone] ([facility] min) Complex 02/20/2018 Patient Education: Patient [...] control. 02/05/2018 Appointment: Sarah Hernandes WPtel: [phone] [phone] (30 min) Complex 02/05/2018 Patient Education: Patient [...] surrogate. 11/30/2017 Appointment: Sarah Hernandes WPtel[facility] [phone] [phone] [facility] - Annual Wellness Visit 11/30/2017 Patient [...] 1.2 11/08/2017 Appointment: [phone] [facility] (15 min) Moderate 11/08/2017 Patient Education: Patient [...] over-medication. 09/20/2017 Appointment: [phone] [facility] (15 min) Moderate 09/20/2017 Patient Education: Patient [...] glucose control. 06/25/2017 Appointment: Sarah Hernandes WPtel: [phone] [phone] (30 min) Complex 06/25/2017 Patient Education: Patient Medication Summary Completed 06/25/2017 Appointment: Sarah Hernandes WPtel: [phone] [place] (30 min) Complex 06/22/2017 Visit Plan: Cellulitis - start oral antibiotics as previously directed, return to clinic as previously directed, call for acute change in symptoms, worsening redness, warmth, discharge. 06/07/2017 Appointment: Sarah Hernandes WPtel: [facility]3 [phone] (30 min) Complex 06/07/2017 Patient Education: Patient Medication Summary Completed 06/07/2017 Patient Education: Obesity Completed 06/07/2017 Appointment: Dorene Sanchez WPtel: [facility] [place] (15 min) Moderate 05/31/2017 Visit Plan: Edema-significantly improved-no changes Ulcer- left lower leg and foot-seeing Dr Norwood at wound care-appt scheduled with Dr Frausto for vascular evaluation 05/03/2017 Appointment: Sarah Hernandes WPtel: [facility]9 [phone] (15 min) Moderate 05/03/2017 Patient Education: Patient Medication Summary Completed 05/03/2017 Patient Education: Obesity Completed 05/03/2017 Visit Plan: Rdynbqvnks-nokwqnmww-rkwakqr to finish abx-no further treatment indicated Edema-significantly improved-no longer weeping- continue unna boots twice weekly with home health 04/02/2017 Appointment: Sarah Hernandes WPtel: [facility]1 [phone] [place] (30 min) Complex 04/02/2017 Patient Education: Patient Medication Summary Completed 04/02/2017 Patient Education: Obesity Completed 04/02/2017 Visit Plan: Cellulitis-left leg-continue levaquin Edema- increase lasix/potassium-consult [facility] for unna boots/dressing changes 03/26/2017 Appointment: Sarah Hernandes WPtel: [phone] [phone] (15 min) Moderate 03/26/2017 Patient Education: Patient [...] indomethacin-stop aleve 03/22/2017 Appointment: Sarah Hernandes WPtel: [phone] (15 min) Moderate 03/22/2017 Patient Education: [...] of control. 03/08/2017 Appointment: Sarah Hernandes WPtel: [phone] (30 min) Complex 03/08/2017 Patient Education: Patient [...] surrogate. 11/30/2016 Appointment: Sarah Hernandes WPtel: [phone] [phone] [facility] - Annual Wellness Visit 11/30/2016 Patient [...] in fluids. 11/28/2016 Appointment: [facility]el[phone] ([facility] min) Moderate 11/28/2016 Patient Education: Patient [...] 01/26/2015 Referral: Edgard Rivera MD WPtel: [address] [place] Referral Appointment Requested Instructions Comment [...] POTASSIUM TO TWICE DAILY [facility] FOR UNNA BOOTS -WOUND CARE . Cellulitis-left leg-continue levaquin Edema-increase lasix/potassium-[facility]ult [facility] for [facility] boots/dressing changes WRAP LEGS-THIGHS [...] YEAR SHINGLES VACCINATION TO BE ADMINISTERED AT [facility] RECOMMEND OBTAINING MEDICAL POWER OF QUALITY IMPROVEMENT CONSULTANT AND LIVING WILL PATIENT DOES NOT [...] YEAR SHINGLES VACCINATION TO BE ADMINISTERED AT [facility] RECOM[facility] OBTAINING MEDICAL POWER OF QUALITY IMPROVEMENT CONSULTANT AND LIVING WILL PATIENT DOES NOT [...] YEAR SHINGLES VACCINATION TO BE ADMINISTERED AT [facility] RECOM[facility]END OBTAINING MEDICAL POWER OF QUALITY IMPROVEMENT CONSULTANT AND LIVING WILL PATIENT DOES NOT [...] assist with repositioning due to weakness . Obueqlcqnk-glapaistu-eyypear to finish abx-no further treatment indicated Edema-significantly [...] fax to Dr Bauer HTN-controlled -no changes Wasvurahp-STPZ-LOD-prostate cancer with mets- patient qualifies for oxygen- oxygen saturation dropped to 86% on room air during ambulation but increased to 99% on 2L NC at rest-will send orders to [facility] for continue oxygen at 2L per nasal cannula . Intermittent abdominal pain, jaundice, itching - will check labs and treat as indicated - pt is to go to the ER with any acute change in symptoms or any acute concerns.
--- OUTSIDE RECORDS SUMMARY | 2018-11-26 11:31 | XMS REPORT | CCD ---
Author Author Dorene Sanchez Organization [facility] Address [address] [place] [address] Phone Care Team Providers Care [place] Name Role Phone PP Unavailable CCM Unavailable Summary Purpose Interface Exchange Insurance Providers Payer name Policy type / Coverage type Covered constitution party ID Effective Begin Date Effective End Date WPS Medicare Part B Medicare Part B [id number] Unknown Unknown Family history Father Diagnosis Age At Onset Stroke Unknown Mother Diagnosis Age At Onset Stroke Unknown Diabetes mellitus Type 2 Unknown Social History Social History Element Codes Description Effective Dates Tobacco history SNOMED CT: 721809303 Currently uses smokeless tobacco Chews 05/04/2016 Marital status Unknown 01/26/2015 Number of children Unknown 3 01/26/2015 Employment Unknown Retired 01/26/[address]: 664011982 Never drinks alcohol quit in July 2014 [...] : 782.3 ICD-10: R60.0 Active 03/22/2017 Unknown Essential (primary) hypertension ICD-9: 401.1 ICD-10: [...] ICD-9 : 782.3 ICD-10: R60.0 03/22/2017 Active Essential (primary) hypertension ICD-9: 401.1 ICD-10: [...] Fill Instructions oxycodone 20 mg tablet RxNorm: 5448140 1/2 Tablet(s) PO Q6 as needed 10/14/2018 11/12/2018 Active Keflex 500 mg capsule RxNorm: 343387 1 Capsule(s) PO TID 201810/19/2018 Active potassium chloride ER 10 mEq tablet,extended release RxNorm: 060445 1 Tablet(s) PO daily 10/10/2018 11/08/2018 Active Lasix 20 mg tablet RxNorm: 922008 1 Tablet(s) PO BID 201804/07/2019 Active albuterol sulfate 2.5 mg/3 mL (0.083 %) solution for nebulization RxNorm: 358814 1 Milliliter(s) INH TID DX J44.9 10/04/2018 01/31/2019 Active gabapentin 100 mg capsule RxNorm: 266348 TAKE ONE CAPSULE BY MOUTH IN THE EVENING AT 5PM 09/24/2018 03/22/2019 Active oxycodone 20 mg tablet RxNorm: 3374636 1/2 Tablet(s) PO Q6 as needed 09/12/2018 10/11/2018 Inactive oxycodone 20 mg tablet RxNorm: 8860261 1/2 Tablet(s) PO Q6 as needed 08/15/2018 09/11/2018 Inactive oxycodone 20 mg tablet RxNorm: 2672438 1/2 Tablet(s) PO Q6 as needed 07/16/2018 08/14/2018 Inactive oxycodone 20 mg tablet RxNorm: 3517754 1/2 Tablet(s) PO Q6 as needed 06/14/2018 07/13/2018 Inactive gabapentin 100 mg capsule RxNorm: 110618 TAKE ONE CAPSULE BY MOUTH IN THE EVENING AT 5PM 05/30/2018 09/23/2018 Inactive oxycodone 20 mg tablet RxNorm: 4554699 1/2 Tablet(s) PO Q6 as needed 05/15/2018 06/13/2018 Inactive oxycodone 20 mg tablet RxNorm: 4493161 1/2 Tablet(s) PO Q6 as needed 04/12/2018 05/11/2018 Inactive oxycodone 20 mg tablet RxNorm: 4648961 1/2 Tablet(s) PO Q6 as needed 03/11/2018 04/09/2018 Inactive levothyroxine 200 mcg tablet RxNorm: 899954 1 Tablet(s) PO daily 02/21/2018 02/15/2019 Active Cipro 500 mg tablet RxNorm: 928105 1 Tablet(s) PO BID 201702/20/2018 Inactive levothyroxine 200 mcg tablet RxNorm: 471609 1 Tablet(s) PO daily 02/21/2018 02/20/2018 Inactive Cipro 500 mg tablet RxNorm: 562959 1 Tablet(s) PO BID 201703/02/2018 Inactive oxycodone 20 mg tablet RxNorm: 6138752 1/2 Tablet(s) PO Q6 as needed 02/12/2018 03/10/2018 Inactive oxycodone 20 mg tablet RxNorm: 0765998 1/2 Tablet(s) PO Q6 as needed 01/16/2018 02/11/2018 Inactive gabapentin 100 mg capsule RxNorm: 398088 TAKE ONE CAPSULE BY MOUTH IN THE EVENING AT 5PM 01/15/2018 05/29/2018 Inactive bisoprolol 5 mg-hydrochlorothiazide 6.25 mg tablet RxNorm: 067056 TAKE ONE TABLET BY MOUTH DAILY 01/01/2018 12/26/2018 Active oxycodone 20 mg tablet RxNorm: 3035374 1/2 Tablet(s) PO Q6 as needed 12/20/2017 01/14/2018 Inactive oxycodone 20 mg tablet RxNorm: 5747008 1/2 Tablet(s) PO Q6 as needed 11/20/2017 12/19/2017 Inactive Victoza 2-Dino 0.6 mg/0.1 mL (18 mg/3 mL) subcutaneous pen injector RxNorm: 199513 1.2 Milligram(s) SQ daily 11/08/201712/07 Inactive oxycodone 20 mg tablet RxNorm: 0897984 1/2 Tablet(s) PO Q6 as needed 10/19/2017 11/17/2017 Inactive gabapentin 100 mg capsule RxNorm: 884381 1 Capsule(s) PO QPM at 5 pm 09/20/2017 01/14/2018 Inactive Lasix 20 mg tablet RxNorm: 083638 1 Tablet(s) QAM at 5pm 12/201703/18/2018 Inactive oxycodone 20 mg tablet RxNorm: 1752320 1/2 Tablet(s) PO Q6 as needed 09/18/2017 10/17/2017 Inactive oxycodone 20 mg tablet RxNorm: 0496194 1/2 Tablet(s) PO Q6 as needed 08/14/2017 09/12/2017 Inactive ketoconazole 2 % topical cream RxNorm: 706086 1 Gram(s) TOP BID to affected area until healed 08/03/2017 No Stop Date Active oxycodone 20 mg tablet RxNorm: 0164665 1/2 Tablet(s) PO Q6 as needed 07/17/2017 08/13/2017 Inactive pen needle, diabetic 31 gauge x 5/16" RxNorm: 1 Unit Dose Miscellaneous daily 06/25/2017 03/21/2018 Inactive daily use with victoza Bactrim DS 800 mg-160 mg tablet RxNorm: 361106 1 Tablet(s) PO BID Dr Norwood 06/25/2017 07/04/2017 Inactive Victoza 2-Dino 0.6 mg/0.1 mL (18 mg/3 mL) subcutaneous pen injector RxNorm: 657435 0.6 Milligram(s) SQ daily 06/25/201707/24 Inactive doxycycline hyclate 100 mg tablet RxNorm: 851006 1 Tablet(s) PO BID Dr Norwood 06/21/2017 06/30/2017 Inactive oxycodone 20 mg tablet RxNorm: 4474875 1/2 Tablet(s) PO Q6 as needed 06/14/2017 07/13/2017 Inactive clindamycin 150 mg capsule RxNorm: 044433 1 Capsule(s) PO Q8 06/16/2017 Inactive levothyroxine 175 mcg tablet RxNorm: 762211 TAKE ONE TABLET BY MOUTH DAILY 06/04/2017 09/01/2017 Inactive levothyroxine 175 mcg tablet RxNorm: 154725 TAKE ONE TABLET BY MOUTH DAILY 06/04/2017 11/30/2017 Inactive bisoprolol 5 mg-hydrochlorothiazide 6.25 mg tablet RxNorm: 535648 TAKE ONE TABLET BY MOUTH DAILY 05/24/2017 11/19/2017 Inactive oxycodone 20 mg tablet RxNorm: 6257860 1/2 Tablet(s) PO Q6 as needed 05/14/2017 06/12/2017 Inactive potassium chloride ER 10 mEq capsule,extended release RxNorm: 156446 TAKE ONE CAPSULE BY MOUTH DAILY NEEDED FOR 5 DAYS THEN NEEDED WITH LASIX 04/17/2017 10/13/2017 Inactive Lasix 20 mg tablet RxNorm: 148002 TAKE ONE TABLET BY MOUTH DAILY NEEDED 04/17/2017 09/19/2017 Inactive oxycodone 20 mg tablet RxNorm: 2889046 1/2 Tablet(s) PO Q6 as needed 04/12/2017 05/11/2017 Inactive Colcrys 0.6 mg tablet RxNorm: 038506 2 tabs at onset then may repeat 1 tab in 1 hours if needed- Tablet(s) PO 04/09/2017 No Stop Date Active then take daily until gout resolved Bactrim DS 800 mg-160 mg tablet RxNorm: 593458 1 Tablet(s) PO BID 04/09/2017 04/08/2017 Inactive dc levaquin Bactrim DS 800 mg-160 mg tablet RxNorm: 329285 1 Tablet(s) PO BID 04/09/2017 04/15/2017 Inactive dc levaquin Levaquin 500 mg tablet RxNorm: 763662 1 Tablet(s) PO daily 04/02/2017 Inactive Levaquin 500 mg tablet RxNorm: 417958 1 Tablet(s) PO daily 06/06/2017 Inactive indomethacin 25 mg capsule RxNorm: 178810 1 Capsule(s) PO TID PRN 03/22/2017 03/22/2017 Inactive Lasix 20 mg tablet RxNorm: 371518 1 Tablet(s) PO QDAY PRN 02/201704/16/2017 Inactive daily x 5 days then as needed Levaquin 500 mg tablet RxNorm: 542221 1 Tablet(s) PO daily 02/201703/31/2017 Inactive potassium chloride ER 10 mEq capsule,extended release RxNorm: 323587 1 Capsule(s) PO QDAY PRN 03/22/2017 04/16/2017 Inactive daily x 5 days then as needed with lasix oxycodone 20 mg tablet RxNorm: 9159127 1/2 Tablet(s) PO Q6 as needed 03/08/2017 04/06/2017 Inactive bisoprolol 5 mg-hydrochlorothiazide 6.25 mg tablet RxNorm: 761745 TAKE ONE TABLET BY MOUTH DAILY 02/14/2017 05/14/2017 Inactive oxycodone 20 mg tablet RxNorm: 7799948 1/2 Tablet(s) PO Q6 as needed 02/08/2017 03/07/2017 Inactive oxycodone 20 mg tablet RxNorm: 8385465 1/2 Tablet(s) PO Q6 as needed 01/08/2017 02/06/2017 Inactive levothyroxine 175 mcg tablet RxNorm: 695226 1 Tablet(s) PO daily 12/06/2016 06/03/2017 Inactive [SAVINGS FOR NON-COVERED DRUGS -- BIN:[id number], PCN: ASPROD1, Group: XXXXX, ID# XXXXXXX, Questions: . THIS IS NOT INSURANCE.] oxycodone 20 mg tablet RxNorm: 0574343 1/2 Tablet(s) PO Q6 as needed 12/04/2016 01/02/2017 Inactive oxycodone 20 mg tablet RxNorm: 7568812 1/2 Tablet(s) PO Q6 as needed 11/09/2016 12/03/2016 Inactive bisoprolol 5 mg-hydrochlorothiazide 6.25 mg tablet RxNorm: 126472 TAKE ONE TABLET BY MOUTH DAILY 11/08/2016 02/05/2017 Inactive oxycodone 20 mg tablet RxNorm: 5658839 1/2 Tablet(s) PO Q6 as needed 10/05/2016 11/03/2016 Inactive oxycodone 20 mg tablet RxNorm: 0926409 1/2 Tablet(s) PO Q6 as needed 09/06/2016 10/04/2016 Inactive oxycodone 20 mg tablet RxNorm: 6805800 1/2 Tablet(s) PO Q6 as needed 08/07/2016 09/05/2016 Inactive oxycodone 20 mg tablet RxNorm: 2266528 1/2 Tablet(s) PO Q6 as needed 07/04/2016 08/06/2016 Inactive oxycodone 20 mg tablet RxNorm: 5508354 1/2 Tablet(s) PO Q6 as needed 05/29/2016 07/03/2016 Inactive levothyroxine 150 mcg tablet RxNorm: 930533 1 Tablet(s) PO daily 04/10/2016 04/09/2016 Inactive [SAVINGS FOR NON-COVERED DRUGS -- BIN:[id number], PCN: ASPROD1, Group: XXXXX, ID# XXXXXXX, Questions: . THIS IS NOT INSURANCE.] oxycodone 20 mg tablet RxNorm: 5088649 1/2 Tablet(s) PO Q6 as needed 04/10/2016 05/28/2016 Inactive levothyroxine 150 mcg tablet RxNorm: 199229 1 Tablet(s) PO daily 04/10/2016 10/06/2016 Inactive [SAVINGS FOR NON-COVERED DRUGS -- BIN:[id number], PCN: ASPROD1, Group: XXXXX, ID# XXXXXXX, Questions: . THIS IS NOT INSURANCE.] bisoprolol 5 mg-hydrochlorothiazide 6.25 mg tablet RxNorm: 669697 1 Tablet(s) PO daily 02/16/2016 12/31/2017 Inactive oxycodone 20 mg tablet RxNorm: 9112667 1/2 Tablet(s) PO Q6 as needed 02/16/2016 04/09/2016 Inactive oxycodone 20 mg tablet RxNorm: 9422263 1/2 Tablet(s) PO Q6 as needed 01/04/2016 02/15/2016 Inactive bisoprolol 5 mg-hydrochlorothiazide 6.25 mg tablet RxNorm: 737551 1 Tablet(s) PO daily 11/19/2015 01/17/2016 Inactive bisoprolol 5 mg-hydrochlorothiazide 6.25 mg tablet RxNorm: 955635 1 Tablet(s) PO daily 11/04/2015 11/18/2015 Inactive oxycodone 20 mg tablet RxNorm: 2070920 1/2 Tablet(s) PO Q6 as needed 10/27/2015 01/03/2016 Inactive levothyroxine 150 mcg tablet RxNorm: 645407 1 Tablet(s) PO daily 08/26/2015 02/21/2016 Inactive [SAVINGS FOR NON-COVERED DRUGS -- BIN:116541, PCN: ASPROD1, Group: XXXXX, ID# XXXXXXX, Questions: . THIS IS NOT INSURANCE.] bisoprolol 5 mg-hydrochlorothiazide 6.25 mg tablet RxNorm: 377554 1 Tablet(s) PO daily 08/26/2015 10/24/2015 Inactive oxycodone 10 mg tablet RxNorm: 5430238 1 Tablet(s) PO Q6 as needed 05/06/2015 10/26/2015 Inactive levothyroxine 150 mcg tablet RxNorm: 264491 1 Tablet(s) PO daily 02/05/2015 08/03/2015 Inactive [SAVINGS FOR NON-COVERED DRUGS -- BIN:872210, PCN: ASPROD1, Group: XXXXX, ID# XXXXXXX, Questions: . THIS IS NOT INSURANCE.] Vitamin D2 50,000 unit capsule RxNorm: 937140 1 Capsule(s) PO weekly 02/05/2015 05/05/2015 Inactive [SAVINGS FOR NON-COVERED DRUGS -- BIN:384266, PCN: ASPROD1, Group: XXXXX, ID# XXXXXXX, Questions: . THIS IS NOT INSURANCE.] Vitamin D2 50,000 unit capsule RxNorm: 263966 1 Capsule(s) PO weekly 02/05/2015 02/04/2015 Inactive bisoprolol 5 mg-hydrochlorothiazide 6.25 mg tablet RxNorm: 243950 1 Tablet(s) PO daily 01/26/2015 02/24/2015 Inactive levothyroxine 200 mcg tablet RxNorm: 339302 1 Tablet(s) PO daily 01/26/2015 01/25/2015 Inactive levothyroxine 200 mcg tablet RxNorm: 412689 1 Tablet(s) PO every other day 01/26/2015 02/04/2015 Inactive [SAVINGS FOR NON-COVERED DRUGS -- BIN:276931, PCN: ASPROD1, Group: XXXXX, ID# XXXXXXX, Questions: . THIS IS NOT INSURANCE.] aspirin 81 mg chewable tablet RxNorm: 807367 1 Tablet(s) PO daily No Start Date Active Plavix 75 mg tablet RxNorm: 654778 1 Tablet(s) PO daily manage by Dr Baig No Start Date Active simvastatin 40 mg tablet RxNorm: 359641 1 Tablet(s) PO QHS managed by Dr Baig No Start Date Active Colcrys 0.6 mg tablet RxNorm: 929913 2 tabs at onset then may repeat 1 tab in 1 hours if needed- Tablet(s) PO No Start Date 04/08/2017 Inactive then take daily until gout resolved aspirin 325 mg tablet RxNorm: 946692 1 Tablet(s) PO daily No Start Date 05/03/2016 Inactive levothyroxine 75 mcg tablet RxNorm: 833339 1 Tablet(s) PO every other day No Start Date 02/04/2015 Inactive takes qod with 200mcg oxycodone 10 mg tablet RxNorm: 2230249 1 Tablet(s) PO Q6 as needed No Start Date 05/05/2015 Inactive ketoconazole 2 % topical cream RxNorm: 442676 1 Gram(s) TOP BID to affected area [...] Code Item Item Code Result Date %Hba1C Urj999 % HbA1c 87175-7 6.4 % 08/30/2018 %Hba1C Lrz470 Gluc Ave 137 mg/dL 08/30/2018 Culture Urine [id number] URINE CULTURE SEE NOTES 02/22/2018 Urine Culture [...] 24.5 pg 02/20/2018 Cbc With Differential Ord2 Graves% 8.9 % 02/20/2018 Cbc With Differential Ord2 [...] 0.81 K/ul 02/20/2018 Cbc With Differential Ord2 Graves ABS# 0.7 K/ul 02/20/2018 Cbc With Differential Ord2 Eos ABS# 0.4 K/ul 02/20/2018 Cbc With Differential Ord2 Baso ABS# 0.0 K/ul 02/20/2018 %Hba1C Lui726 % HbA1c 18349-6 7.7 % 02/20/2018 %Hba1C Fhx767 Gluc Ave 174 mg/dL 02/20/2018 Lipase Fkt865 LIPASE 17 U/L 02/20/2018 Microalbumin Eco319 MicroAlb 6.5 mg/dL 02/20/2018 Amylase Ord34 AMYLASE 15 U/L 02/20/2018 Free T4 Zqd305 FREE T4 0.61 ng/dL 02/20/2018 Lipid Ord30 CHOL 203 mg/dL 02/20/2018 Lipid Ord30 HDL 7.0 mg/dl 02/20/2018 Lipid Ord30 TRIG 271 mg/dL 02/20/2018 Lipid Ord30 LDL 142 mg/dL 02/20/2018 Lipid Ord30 C/HDL 29.0 Ratio 02/20/2018 Comp Metabolic Ycd482 NA 134 mEq/L 02/20/2018 Comp Metabolic Agj839 K 3.6 mEq/L 02/20/2018 Comp Metabolic Oda623 CL 96 mEq/L 02/20/2018 Comp Metabolic Mlp478 CO2 29.0 mEq/L 02/20/2018 Comp Metabolic Qzq508 ANION GAP 13 02/20/2018 Comp Metabolic Mhn345 GLUCOSE 165 mg/dL 02/20/2018 Comp Metabolic Ezi119 Creat 1.2 mg/dL 02/20/2018 Comp Metabolic Jds349 eGFR 63 ml/min/1.73m2 02/20/2018 Comp Metabolic Tjo780 BUN 14 mg/dL 02/20/2018 Comp Metabolic Mif498 B/C Ratio 11.6 Ratio 02/20/2018 Comp Metabolic Nvh013 CALCIUM 8.5 mg/dL 02/20/2018 Comp Metabolic Elv735 ALK PHOS 633 U/L 02/20/2018 Comp Metabolic Chd455 AST(SGOT) 112 U/L 02/20/2018 Comp Metabolic Nvb693 ALT(SGPT) 148 U/L 02/20/2018 Comp Metabolic Wnz391 BILI T 6.8 mg/dL 02/20/2018 Comp Metabolic Pjh159 ALBUMIN 3.3 g/dL 02/20/2018 Comp Metabolic Efd651 TPRO 5.9 g/dL 02/20/2018 Comp Metabolic Tvo846 GLOB 2.6 g/dL 02/20/2018 Comp Metabolic Qge761 A/G Ratio 1.3 Ratio 02/20/2018 Comp Metabolic Cab808 Osmo 272 mOsmo 02/20/2018 Total Psa Ord10 [...] Metabolic Ord15 CALCIUM 9.2 mg/dL 11/09/2017 %Hba1C Fsy679 % HbA1c 93422-9 8.0 % 11/09/2017 %Hba1C Kkx339 Gluc Ave 183 mg/dL 11/09/2017 Metabolic Ord15 [...] Ord15 CALCIUM 8.7 mg/dL 06/25/2017 Culture Wound [id number] WOUND CULTURE SEE NOTES 04/09/2017 Culture Wound [id number] Continued Results 04/09/2017 Amylase Ord34 AMYLASE 19 [...] 27.9 pg 03/22/2017 Cbc With Differential Ord2 Graves% 8.3 % 03/22/2017 Cbc With Differential Ord2 [...] 1.35 K/ul 03/22/2017 Cbc With Differential Ord2 Graves ABS# 1.4 K/ul 03/22/2017 Cbc With Differential Ord2 Eos ABS# 0.2 K/ul 03/22/2017 Cbc With Differential Ord2 Baso ABS# 0.0 K/ul 03/22/2017 Comp Metabolic Crl437 NA 134 mEq/L 03/22/2017 Comp Metabolic Arh448 K 4.5 mEq/L 03/22/2017 Comp Metabolic Eaw640 CL 93 mEq/L 03/22/2017 Comp Metabolic Tkp311 CO2 31.0 mEq/L 03/22/2017 Comp Metabolic Lph209 ANION GAP 15 03/22/2017 Comp Metabolic Lcn482 GLUCOSE 198 mg/dL 03/22/2017 Comp Metabolic Jre619 Creat 1.5 mg/dL 03/22/2017 Comp Metabolic Qwc003 eGFR 50 ml/min/1.73m2 03/22/2017 Comp Metabolic Pvq916 BUN 32 mg/dL 03/22/2017 Comp Metabolic Xhs876 B/C Ratio 21.6 Ratio 03/22/2017 Comp Metabolic Qmz714 CALCIUM 8.4 mg/dL 03/22/2017 Comp Metabolic Cbr792 ALK PHOS 245 U/L 03/22/2017 Comp Metabolic Gfy798 AST(SGOT) 18 U/L 03/22/2017 Comp Metabolic Wxr810 ALT(SGPT) 17 U/L 03/22/2017 Comp Metabolic Fxu217 BILI T 0.8 mg/dL 03/22/2017 Comp Metabolic Dtn005 ALBUMIN 2.9 g/dL 03/22/2017 Comp Metabolic Fjf716 TPRO 6.3 g/dL 03/22/2017 Comp Metabolic Kot953 GLOB 3.4 g/dL 03/22/2017 Comp Metabolic Lak023 A/G Ratio 0.8 Ratio 03/22/2017 Comp Metabolic Aca990 Osmo 281 mOsmo 03/22/2017 Lipase Rne908 LIPASE 12 U/L 03/22/2017 Comp Metabolic Eax373 NA 142 mEq/L 03/09/2017 Comp Metabolic Nch403 K 4.8 mEq/L 03/09/2017 Comp Metabolic Uoe317 CL 103 mEq/L 03/09/2017 Comp Metabolic Zkq679 CO2 30.0 mEq/L 03/09/2017 Comp Metabolic Lly257 ANION GAP 14 03/09/2017 Comp Metabolic Jgc874 GLUCOSE 152 mg/dL 03/09/2017 Comp Metabolic Bxm849 Creat 1.3 mg/dL 03/09/2017 Comp Metabolic Wow213 eGFR 56 ml/min/1.73m2 03/09/2017 Comp Metabolic Vfh132 BUN 23 mg/dL 03/09/2017 Comp Metabolic Rth281 B/C Ratio 17.3 Ratio 03/09/2017 Comp Metabolic Nei502 CALCIUM 8.5 mg/dL 03/09/2017 Comp Metabolic Hko757 ALK PHOS 97 U/L 03/09/2017 Comp Metabolic Epl448 AST(SGOT) 10 U/L 03/09/2017 Comp Metabolic Jwt876 ALT(SGPT) 6 U/L 03/09/2017 Comp Metabolic Avp588 BILI T 0.4 mg/dL 03/09/2017 Comp Metabolic Trr837 ALBUMIN 3.4 g/dL 03/09/2017 Comp Metabolic Pyk563 TPRO 6.2 g/dL 03/09/2017 Comp Metabolic Ono342 GLOB 2.8 g/dL 03/09/2017 Comp Metabolic Uzd088 A/G Ratio 1.2 Ratio 03/09/2017 Comp Metabolic Wel080 Osmo 290 mOsmo 03/09/2017 Free T4 Zsp331 FREE T4 0.86 ng/dL 03/08/2017 Cbc With [...] 28.2 pg 03/08/2017 Cbc With Differential Ord2 Graves% 8.7 % 03/08/2017 Cbc With Differential Ord2 [...] 1.63 K/ul 03/08/2017 Cbc With Differential Ord2 Graves ABS# 0.9 K/ul 03/08/2017 Cbc With Differential Ord2 Eos ABS# 0.5 K/ul 03/08/2017 Cbc With Differential Ord2 Baso ABS# 0.0 K/ul 03/08/2017 Tsh Ord6 hTSH II 4.52 uIU/mL 03/08/2017 %Hba1C Dtg277 % HbA1c 84032-4 8.5 % 03/08/2017 %Hba1C Azi962 Gluc Ave 197 mg/dL 03/08/2017 %Hba1C Bii209 % HbA1c 90370-5 9.8 % 12/04/2016 %Hba1C Mrd519 Gluc Ave 235 mg/dL 12/04/2016 Tsh Ord6 hTSH II 10.65 uIU/mL 11/30/2016 Comp Metabolic Man957 NA 134 mEq/L 11/30/2016 Comp Metabolic Pic807 K 5.0 mEq/L 11/30/2016 Comp Metabolic Nae944 CL 95 mEq/L 11/30/2016 Comp Metabolic Qgw395 CO2 34.0 mEq/L 11/30/2016 Comp Metabolic Myf536 ANION GAP 10 11/30/2016 Comp Metabolic Ktk092 GLUCOSE 226 mg/dL 11/30/2016 Comp Metabolic Qbv974 Creat 1.3 mg/dL 11/30/2016 Comp Metabolic Nhx956 eGFR 56 ml/min/1.73m2 11/30/2016 Comp Metabolic Qoh130 BUN 21 mg/dL 11/30/2016 Comp Metabolic Eqy274 B/C Ratio 15.7 Ratio 11/30/2016 Comp Metabolic Kdg255 CALCIUM 8.9 mg/dL 11/30/2016 Comp Metabolic Snp871 ALK PHOS 112 U/L 11/30/2016 Comp Metabolic Ejc018 AST(SGOT) 9 U/L 11/30/2016 Comp Metabolic Rzv887 ALT(SGPT) 7 U/L 11/30/2016 Comp Metabolic Haf072 BILI T 0.6 mg/dL 11/30/2016 Comp Metabolic Hce705 ALBUMIN 3.6 g/dL 11/30/2016 Comp Metabolic Tmf163 TPRO 6.4 g/dL 11/30/2016 Comp Metabolic Pmb063 GLOB 2.9 g/dL 11/30/2016 Comp Metabolic Cwv607 A/G Ratio 1.2 Ratio 11/30/2016 Comp Metabolic Odj041 Osmo 278 mOsmo 11/30/2016 Lipid Ord30 CHOL [...] 13.0 % 11/30/2016 Cbc With Differential Ord2 Graves% 7.9 % 11/30/2016 Cbc With Differential Ord2 [...] 1.34 K/ul 11/30/2016 Cbc With Differential Ord2 Graves ABS# 0.8 K/ul 11/30/2016 Cbc With Differential Ord2 Eos ABS# 0.3 K/ul 11/30/2016 Cbc With Differential Ord2 [place] ABS# 0.0 K/ul 11/30/2016 Free T4 Gtz512 FREE T4 0.89 ng/dL 11/30/2016 Review of [...] atraumatic 10/14/2018 None Full Exam - General 1995 Integument inspection of skin Location: left leg [...] rate 10/10/2018 None Full Exam - General 1995 Respiratory respiratory effort/rhythm Overall: no retractions 10/10/2018 [...] hygiene 11/08/2017 None Full Exam - General 1995 Eyes conjunctiva /eyelids Overall: conjunctiva clear 11/08/2017 [...] Codes Date ADMIN PNEUMOCOCCAL VACCINE SNOMED CT: 06772894 CPT-4: G0009 02/05/2018 Pneumococcal Polysaccharide Vaccine, 23-Valent, Ad CPT-4: 31820 02/05/2018 PPPS, SUBSEQ VISIT CPT -4: G0439 11/30/2017 URINALYSIS NONAUTO W/O SCOPE CPT-4: 94586 03/22/2017 URINALYSIS NONAUTO W/O SCOPE CPT-4: 16918 03/21/2017 PPPS, SUBSEQ VISIT CPT -4: G0439 11/30/2016 PNEUMOCOCCAL VACC 13 JAVIER IM Formatting Model/CDA Sections, Assigned to SNOMED CT: 50696661 CPT-4: 08695Bondirt 11/30/2016 ADMIN PNEUMOCOCCAL VACCINE SNOMED CT: 42346379 CPT-4: G0009 11/30/2016 Vital Signs Date Vital 10/14/2018 Blood Pressure 1: 120/56 Code : 8480-6 Heart Rate 1: 67 bpm Height: 5'10" SpO2: 92% 10/10/2018 Blood Pressure 1: 126/70 Code : 8480-6 BMI: 34.7 Code : 22986-5 Heart Rate 1 : 80 bpm Height: 5'10" SpO2: 96% Temperature: 37.1 (C) / 98.7 (F) Weight: 242 lbs 10/04/2018 Blood Pressure 1: 120/70 Code : 8480-6 Height: 5'10" SpO2: 96% 08/29/2018 Blood Pressure 1: 104/60 Code : 8480-6 BMI: 34.6 Code : 99071-4 Heart Rate 1 : 68 bpm Height: 5'10" SpO2: 98% Weight: 241 lbs 02/25/2018 Blood Pressure 1: 120/70 Code : 8480-6 BMI: 37.0 Code : 02638-2 Heart Rate 1 : 51 bpm Height: 5'10" SpO2: 97% Weight: 258 lbs 02/20/2018 Blood Pressure 1: 124/70 Code : 8480-6 BMI: 38.0 Code : 01677-5 Heart Rate 1 : 60 bpm Height: 5'10" SpO2: 96% Weight: 265 lbs 02/05/2018 Blood Pressure 1: 116/66 Code : 8480-6 BMI: 38.0 Code : 73353-1 Heart Rate 1 : 63 bpm Height: 5'10" SpO2: 98% Weight: 265 lbs 11/30/2017 Blood Pressure 1: 132/60 Code : 8480-6 BMI: 37.0 Code : 96608-1 Heart Rate 1 : 100 bpm Height: 5'10 " SpO2: 96% Waist Measure (cm): 122 cm Weight: 258 lbs 11/08/2017 Blood Pressure 1: 126/64 Code : 8480-6 BMI: 37.2 Code : 86769-0 Heart Rate 1 : 92 bpm Height: 5'10" SpO2: 94% Weight: 259 lbs 09/20/2017 Blood Pressure 1: 122/68 Code : 8480-6 BMI: 36.9 Code : 26544-0 Heart Rate 1 : 57 bpm Height: 5'10" SpO2: 96% Weight: 257 lbs 06/25/2017 Blood Pressure 1: 124 Code : 8480-6 BMI: 37.0 Code : 19085-8 Height: 5'10 " Weight: 258 lbs 06/07/2017 Blood Pressure 1: 12264 Code : 8480-6 BMI: 37.0 Code : 06806-2 Heart Rate 1 : 60 bpm Height: 5'10" SpO2: 94% Temperature: 36.4 (C) / 97.6 (F) Weight: 258 lbs 05/03/2017 Blood Pressure 1: 118 Code : 8480-6 BMI: 38.2 Code : 38159-0 Heart Rate 1 : 52 bpm Height: 5'10" SpO2: 98% Weight: 266 lbs 04/02/2017 Blood Pressure 1: 118 Code : 8480-6 BMI: 38.2 Code : 12989-0 Heart Rate 1 : 53 bpm Height: 5'10" SpO2: 93% Weight: 266 lbs 03/26/2017 Blood Pressure 1: 114 Code : 8480-6 BMI: 38.3 Code : 43359-0 Height: 5'10 " Weight: 267 lbs 03/22/2017 Blood Pressure 1: 122 Code : 8480-6 BMI: 40.0 Code : 02004-4 Heart Rate 1 : 52 bpm Height: 5'10" SpO2: 94% Weight: 279 lbs 03/08/2017 Blood Pressure 1: 124 Code : 8480-6 BMI: 39.4 Code : 51266-3 Heart Rate 1 : 51 bpm Height: 5'10" SpO2: 94% Weight: 274 lbs 8 oz 12/06/2016 Blood Pressure 1: 126/62 Code : 8480-6 BMI: 40.3 Code : 87970-0 Heart Rate 1 : 50 bpm Height: 5'10" SpO2: 94% Weight: 281 lbs 11/30/2016 Blood Pressure 1: 112/ Code : 8480-6 BMI: 40.3 Code : 86169-5 Heart Rate 1 : 52 bpm Height: 5'10" SpO2: 93% Waist Measure (cm): 135 cm Weight: 281 lbs 11/28/2016 Blood Pressure 1: 132/72 Code : 8480-6 BMI: 40.3 Code : 82839-4 Heart Rate 1 : 50 bpm Height: 5'10" Weight: 281 lbs 05/04/2016 Blood Pressure 1: 128/78 Code : 8480-6 BMI: 38.5 Code : 87127-2 Heart Rate 1 : 74 bpm Height: 5'10" SpO2: 98% Weight: 268 lbs 8 oz 11/04/2015 Blood Pressure 1: 136/60 Code : 8480-6 BMI: 38.0 Code : 09110-1 Heart Rate 1 : 55 bpm Height: 5'10" SpO2: 94% Weight: 265 lbs 07/30/2015 Blood Pressure 1: 128/74 Code : 8480-6 BMI: 38.0 Code : 75304-1 Heart Rate 1 : 47 bpm Height: 5'10" SpO2: 97% Weight: 265 lbs 01/26/2015 Blood Pressure 1: 122/64 Code : 8480-6 BMI: 34.0 Code : 37760-5 Heart Rate 1 : 68 bpm Height: [...] Diagnosis: Chronic obstructive pulmonary disease, unspecified[ICD10: J44.9] Kiki Sanchez MD, [facility] CPT-4: 37316 10/14/2018 [id number] EST. PATIENT, LEVEL III Diagnosis: Localized edema[ICD10: R60.0] Diagnosis: Cellulitis of left lower limb[ICD10: L03.116] Diagnosis: Cellulitis of right lower limb[ICD10: L03.115] Kiki Sanchez MD, [facility] CPT-4: 10922 10/10/2018 ([id number]) [id number] EST. PATIENT, LEVEL IV Diagnosis: Type 2 diabetes mellitus with foot ulcer[ICD10: E11.621] Diagnosis: Essential (primary) hypertension[ICD10: I10] Diagnosis: Malignant neoplasm of prostate[ICD10: C61] Diagnosis: Chronic obstructive pulmonary disease, unspecified[ICD10: J44.9] Diagnosis: Hypoxemia[ICD10: R09.02] Sarah Sanchez MD, [facility] CPT-4: 85581 10/04/2018 ([id number]) [id number] EST. PATIENT, LEVEL IV Diagnosis: Type 2 diabetes mellitus with hyperglycemia[ICD10: E11.65] Diagnosis: Essential (primary) hypertension[ICD10: I10] Diagnosis: Malignant neoplasm of prostate[ICD10: C61] Sarah Sanchez MD, [facility] CPT-4: 02522 08/29/2018 ([id number]) [id number] EST. PATIENT, LEVEL IV Diagnosis: Malignant neoplasm of prostate[ICD10: C61] Dorene Sanchez MD, [facility] CPT-4: 54875 02/25/2018 [id number] EST. PATIENT, LEVEL IV Diagnosis: Generalized abdominal pain[ICD10: R10.84] Diagnosis: Unspecified jaundice[ICD10: R17] Diagnosis: Gross hematuria[ICD10: R31.0] Kiki Sanchez MD, [facility] CPT-4 : 58764 02/20/2018 ([id number]) 46182 EST. PATIENT, LEVEL IV Diagnosis: Type 2 diabetes mellitus with hyperglycemia[ICD10: E11.65] Diagnosis: Essential (primary) hypertension[ICD10: I10] Diagnosis: Chronic kidney disease, stage 3 (moderate)[ICD10: N18.3] Diagnosis: Chronic pain syndrome[ICD10: G89.4] Diagnosis: Other specified hypothyroidism[ICD10: E03.8] Diagnosis: Encounter for screening for malignant neoplasm of prostate[ICD10: Z12.5] Diagnosis: Encounter for immunization[ICD10: Z23] Sarah Sanchez MD, [facility] CPT-4: 87103 02/05/2018 ([id number]) 80455 EST. PATIENT, LEVEL IV Diagnosis: Type 2 diabetes mellitus with hyperglycemia[ICD10: E11.65] Diagnosis: Essential (primary) hypertension[ICD10: I10] Dorene Sanchez MD, [facility] CPT-4: 54624 11/08/2017 ([id number]) 27134 EST. PATIENT, LEVEL IV Diagnosis: Type 2 diabetes mellitus with hyperglycemia[ICD10: E11.65] Diagnosis: Chronic pain syndrome[ICD10: G89.4] Diagnosis: Essential (primary) hypertension[ICD10: I10] Diagnosis: Chronic kidney disease, stage 3 (moderate)[ICD10: N18.3] Diagnosis: Localized edema[ICD10: R60.0] Dorene Sanchez MD, [facility] CPT- 4: 76735 09/20/2017 ([id number]) 23086 EST. PATIENT, LEVEL III Diagnosis: Type 2 diabetes mellitus with hyperglycemia[ICD10: E11.65] Sarah Sanchez MD, [facility] CPT-4: 02168 06/25/2017 ([id number]) 21735 EST. PATIENT, LEVEL III Diagnosis: Cellulitis of left lower limb[ICD10: L03.116] Sarah Sanchez MD, [facility] CPT-4: 39371 06/07/2017 ([id number]) 52536 EST. PATIENT, LEVEL III Diagnosis: Localized edema[ICD10: R60.0] Diagnosis: Type 2 diabetes mellitus with foot ulcer[ICD10: E11.621] Sarah Sanchez MD , [facility] CPT-4: 45874 05/03/2017 ([id number]) 59715 EST. PATIENT, LEVEL III Diagnosis: Cellulitis of left lower limb[ICD10: L03.116] Diagnosis: Localized edema[ICD10: R60.0] Sarah Sanchez MD, [facility] CPT-4: 87328 04/02/2017 ([id number]) Miscellaneous no charge Diagnosis: Localized edema[ICD10: R60.0] Diagnosis: Cellulitis of left lower limb[ICD10: L03.116] Sarah Sanchez MD, [facility] CPT-4: 68200 03/26/2017 ([id number]) 51983 EST. 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 PATIENT, LEVEL IV Diagnosis: Type 2 diabetes mellitus with hyperglycemia[ICD10: E11.65] Diagnosis: Other specified hypothyroidism[ICD10: E03.8] Diagnosis: Essential (primary) hypertension[ICD10: I10] Sarah Sanchez MD, [facility] CPT-4: 11301 03/08/2017 ([id number]) 03271 EST. PATIENT, LEVEL III Diagnosis: Type 2 diabetes mellitus with hyperglycemia[ICD10: E11.65] Diagnosis: Other specified hypothyroidism[ICD10: E03.8] Sarah Sanchez MD, [facility] CPT-4: 59510 12/06/2016 ([id number]) 84453 EST. PATIENT, LEVEL IV Diagnosis: Essential (primary) hypertension[ICD10: I10] Diagnosis: Chronic kidney disease, stage 3 (moderate)[ICD10: N18.3] Dorene Sanchez MD, [facility] CPT-4: 05520 11/28/2016 ([id number]) 52913 EST. PATIENT, LEVEL IV Diagnosis: Essential (primary) hypertension[ICD10: I10] Diagnosis: Chronic pain syndrome[ICD10: G89.4] Diagnosis: Chronic kidney disease, stage 3 (moderate)[ICD10: N18.3] Diagnosis: Vitamin B12 deficiency anemia due to intrinsic factor deficiency[ ICD10: D51.0] Diagnosis: Other specified hypothyroidism[ICD10: E03.8] Dorene Sanchez MD, [facility] CPT-4: 35100 05/04/2016 14046 EST. PATIENT, LEVEL III Diagnosis: Chronic pain syndrome[ICD10: G89.4] Diagnosis: Essential (primary) hypertension[ICD10: I10] Diagnosis: Other specified hypothyroidism[ICD10: E03.8] Kiki Sanchez MD, [facility] CPT-4: 56424 11/04/2015 20606 EST. PATIENT, LEVEL III Diagnosis: Chronic pain syndrome[ICD10: G89.4] Diagnosis: Essential (primary) hypertension[ICD10: I10] Kiki Sanchez MD, [facility] CPT-4: 34439 07/30/2015 ([id number]) OFFICE/OUTPATIENT VISIT NEW Diagnosis: ESSENTIAL HYPERTENSION[ICD9: 401.9] Diagnosis: HYPOTHYROIDISM[ICD9: 244.9] Diagnosis: ANEMIA[ICD9: 285.9] Diagnosis: Vitamin B12 deficiency[ICD9: 266.2] Diagnosis: CHRONIC PAIN SYNDROME[ICD9: 338.4] Diagnosis: Chronic renal insufficiency, stage III (moderate)[ICD9: 585.3] Diagnosis: GOUT[ICD9: 274.9] Dorene Sanchez MD, [facility] CPT-4: 95003 01/26/2015 Plan of Care Planned Activity Notes [...] to clinic on Sunday to monitor 10/14/2018 Patient Education: Patient Medication Summary Completed [...] discharge. 10/10/2018 Appointment: [facility] [phone] [facility] ([facility] min) Complex 10/10/2018 Patient Education: Patient Medication Summary Completed 10/10/2018 Visit Plan: DM with peripheral neuropathy-paperwork completed for diabetic shoes and will fax to Dr Bauer HTN-controlled -no changes Douuuddhx-NIKR-CWR-prostate cancer with mets- patient qualifies for oxygen-oxygen saturation dropped to 86% on room air during ambulation but increased to 99% on 2L NC at rest-will send orders to [facility] for continue oxygen at 2L per nasal cannula 10/04/2018 Appointment: [facility] [phone] [phone] (30 min) Complex 10/04/2018 Patient Education: Patient [...] Dr Moreno 08/29/2018 Appointment: Sarah Hernandes WPtel: [phone] [place] (15 min) Moderate 08/29/2018 Patient Education: Patient Medication Summary Completed 08/29/2018 Referral: Edgard Rivera MD WPtel: Via [address] with Dr. Moreno. Patient informed. Referral info faxed. Completed 02/27/2018 Visit Plan: Recurrent prostate cancer - I have recommended a referral to Dr. Rivera. We discussed the case at length today- he is not interested in extensive treatment, but if possible to extend his quantity and quality of life, he would like to try. 02/25/2018 Appointment: Dorene Sanchez WPtel: [facility] [place] (15 min) Moderate 02/25/2018 Patient Education: Patient Medication Summary Completed 02/25/2018 Care Plan: Referral Order SNOMED-CT : [id number] Pending 02/25/2018 Visit Plan: Intermittent abdominal pain, jaundice, itching - will check labs and treat as indicated - pt is to go to the ER with any acute change in symptoms or any acute concerns. 02/20/2018 Appointment: Kiki Menjivar WPtel: [facility] [place] (30 min) Complex 02/20/2018 Patient [...] previous levels of control. 02/05/2018 Appointment: Sarah Hernandesl: [phone] [place] (30 min) Complex 02/05/2018 Patient Education: Patient [...] for health care surrogate. 11/30/2017 Appointment: Sarah Hernandesl: [phone] [phone] [place] [address] - Annual Wellness Visit 11/30/2017 Patient Education: [...] 1.2 11/08/2017 Appointment: [facility] [phone] [facility] (15 min) Moderate 11/08/2017 Patient Education: [...] of over-medication. 09/20/2017 Appointment: Dorene Sanchez [facility]Ptel[facility] (15 min) Moderate 09/20/2017 Patient Education: [...] glucose control. 06/25/2017 Appointment: Sarah Hernandes WPtel: [phone] (30 min) Complex 06/25/2017 Patient Education: Patient Medication Summary Completed 06/25/2017 Appointment: [facility] [phone] [phone] (30 min) Complex 06/22/2017 Visit Plan: Cellulitis - start oral antibiotics as previously directed, return to clinic as previously directed, call for acute change in symptoms, worsening redness, warmth, discharge. 06/07/2017 Appointment: Sarah Hernandes WPtel: [phone] (30 min) Complex 06/07/2017 Patient Education: Patient Medication Summary Completed 06/07/2017 Patient Education: Obesity Completed 06/07/2017 Appointment: Dorene Sanchez WPtel: [facility] [place] (15 min) Moderate 05/31/2017 Visit Plan: Edema-significantly improved-no changes Ulcer- left lower leg and foot-seeing Dr Norwood at wound care-appt scheduled with Dr Frausto for vascular evaluation 05/03/2017 Appointment: Sarah Hernandes WPtel: [phone] (15 min) Moderate 05/03/2017 Patient Education: Patient Medication Summary Completed 05/03/2017 Patient Education: Obesity Completed 05/03/2017 Visit Plan: Candvlbbdf-kffsjkgwh-fmbgxza to finish abx-no further treatment indicated Edema-significantly improved-no longer weeping- continue unna boots twice weekly with home health 04/02/2017 Appointment: Sarah Hernandes WPtel: [phone] (30 min) Complex 04/02/2017 Patient Education: Patient Medication Summary Completed 04/02/2017 Patient Education: Obesity Completed 04/02/2017 Visit Plan: Cellulitis-left leg-continue levaquin Edema- increase lasix/potassium-consult [facility] for unna boots/dressing changes 03/26/2017 Appointment: Sarah Hernandes WPtel: [address] [place], [place] [phone] [place] (15 min) Moderate 03/26/2017 Patient Education: [...] indomethacin-stop aleve 03/22/2017 Appointment: Sarah Hernandes WPtel: [phone] (15 min) Moderate 03/22/2017 Patient Education: [...] of control. 03/08/2017 Appointment: Sarah Hernandes WPtel: [address] [place] [phone] (30 min) Complex 03/08/2017 Patient Education: Patient [...] surrogate. 11/30/2016 Appointment: [facility]el[facility] [phone] [phone] [facility] - Annual Wellness Visit 11/30/2016 Patient [...] in fluids. 11/28/2016 Appointment: Dore[facility] Sanchez [facility] [phone] [facility] (15 min) Moderate 11/28/2016 Patient Education: [...] 01/26/2015 Referral: Edgard Rivera MD WPtel: [address] [place] Referral Appointment Requested Instructions Comment [...] AND POTASSIUM TO TWICE DAILY [facility] . Cellulitis-left leg-continue levaquin Edema-increase lasix/potassium-[facility]/dressing changes WRAP LEGS-THIGHS [...] YEAR SHINGLES VACCINATION TO BE ADMINISTERED AT [facility] RECOMMEND OBTAINING MEDICAL POWER OF ALARM INSTALLATION TECHNICIAN AND LIVING WILL PATIENT DOES NOT HAVE [...] YEAR SHINGLES VACCINATION TO BE ADMINISTERED AT [facility] RECOMMEND OBTAINING MEDICAL POWER OF ALARM INSTALLATION TECHNICIAN AND LIVING WILL PATIENT DOES NOT HAVE [...] YEAR SHINGLES VACCINATION TO BE ADMINISTERED AT [facility] RECOMMEND OBTAINING MEDICAL POWER OF ALARM INSTALLATION TECHNICIAN AND LIVING WILL PATIENT DOES NOT HAVE [...] to clinic on Sunday to monitor . Evurycyiuc-baysywdmb-tcobvju to finish abx-no further treatment indicated Edema-significantly [...] fax to Dr Bauer HTN-controlled -no changes Yvxrcedkg-SGRH-VUF-prostate cancer with mets- patient qualifies for oxygen- oxygen saturation dropped to 86% on room air during ambulation but increased to 99% on 2L NC at rest-will send orders to [facility] for continue oxygen at 2L per nasal cannula . Intermittent abdominal pain, jaundice, itching - will check labs and treat as indicated - pt is to go to the ER with any acute change in symptoms or any acute concerns.
--- OUTSIDE RECORDS SUMMARY | 2018-11-26 11:34 | XMS REPORT | CCD ---
Author Author [facility]orene Sanchez Organization [facility] Address [address] [place] [address] Phone Care Team Providers Care Retoucher Photoengraving Name Role Phone PP Unavailable CCM Unavailable Summary Purpose Interface Exchange Insurance Providers Payer name Policy type / Coverage type Covered alliance party ID Effective Begin Date Effective End Date WPS Medicare Part B Medicare Part B [id number] Unknown Unknown Family history Father Diagnosis Age At Onset Stroke Unknown Mother Diagnosis Age At Onset Stroke Unknown Diabetes mellitus Type 2 Unknown Social History Social History Element Codes Description Effective Dates Tobacco history SNOMED CT: 374919917 Currently uses smokeless tobacco Chews 05/04/2016 Marital status Unknown 01/26/2015 Number of children Unknown 3 01/26/2015 Employment Unknown Retired 01/26/[address]: 758631762 Never drinks alcohol quit in July 2014 [...] ICD-9: 496 ICD-10: J44.9 Active 10/04/2018 Unknown Essential (primary) hypertension ICD-9: 401.1 ICD-10: [...] unspecified ICD-9: 496 ICD-10: J44.9 10/04/2018 Active Essential (primary) hypertension ICD-9: 401.1 ICD-10: [...] Fill Instructions oxycodone 20 mg tablet RxNorm: 6776989 1/2 Tablet(s) PO Q6 as needed 10/14/2018 11/12/2018 Active Keflex 500 mg capsule RxNorm: 914395 1 Capsule(s) PO TID 201810/19/2018 Active potassium chloride ER 10 mEq tablet,extended release RxNorm: 980858 1 Tablet(s) PO daily 10/10/2018 11/08/2018 Active Lasix 20 mg tablet RxNorm: 740615 1 Tablet(s) PO BID 201804/07/2019 Active albuterol sulfate 2.5 mg/3 mL (0.083 %) solution for nebulization RxNorm: 067371 1 Milliliter(s) INH TID DX J44.9 10/04/2018 01/31/2019 Active gabapentin 100 mg capsule RxNorm: 861022 TAKE ONE CAPSULE BY MOUTH IN THE EVENING AT 5PM 09/24/2018 03/22/2019 Active oxycodone 20 mg tablet RxNorm: 1882424 1/2 Tablet(s) PO Q6 as needed 09/12/2018 10/11/2018 Inactive oxycodone 20 mg tablet RxNorm: 1345925 1/2 Tablet(s) PO Q6 as needed 08/15/2018 09/11/2018 Inactive oxycodone 20 mg tablet RxNorm: 3460804 1/2 Tablet(s) PO Q6 as needed 07/16/2018 08/14/2018 Inactive oxycodone 20 mg tablet RxNorm: 3513552 1/2 Tablet(s) PO Q6 as needed 06/14/2018 07/13/2018 Inactive gabapentin 100 mg capsule RxNorm: 103945 TAKE ONE CAPSULE BY MOUTH IN THE EVENING AT 5PM 05/30/2018 09/23/2018 Inactive oxycodone 20 mg tablet RxNorm: 0157079 1/2 Tablet(s) PO Q6 as needed 05/15/2018 06/13/2018 Inactive oxycodone 20 mg tablet RxNorm: 1546213 1/2 Tablet(s) PO Q6 as needed 04/12/2018 05/11/2018 Inactive oxycodone 20 mg tablet RxNorm: 6538917 1/2 Tablet(s) PO Q6 as needed 03/11/2018 04/09/2018 Inactive levothyroxine 200 mcg tablet RxNorm: 618328 1 Tablet(s) PO daily 02/21/2018 02/15/2019 Active Cipro 500 mg tablet RxNorm: 781564 1 Tablet(s) PO BID 201702/20/2018 Inactive levothyroxine 200 mcg tablet RxNorm: 721444 1 Tablet(s) PO daily 02/21/2018 02/20/2018 Inactive Cipro 500 mg tablet RxNorm: 229779 1 Tablet(s) PO BID 201703/02/2018 Inactive oxycodone 20 mg tablet RxNorm: 2579041 1/2 Tablet(s) PO Q6 as needed 02/12/2018 03/10/2018 Inactive oxycodone 20 mg tablet RxNorm: 7283374 1/2 Tablet(s) PO Q6 as needed 01/16/2018 02/11/2018 Inactive gabapentin 100 mg capsule RxNorm: 706871 TAKE ONE CAPSULE BY MOUTH IN THE EVENING AT 5PM 01/15/2018 05/29/2018 Inactive bisoprolol 5 mg-hydrochlorothiazide 6.25 mg tablet RxNorm: 856841 TAKE ONE TABLET BY MOUTH DAILY 01/01/2018 12/26/2018 Active oxycodone 20 mg tablet RxNorm: 2752671 1/2 Tablet(s) PO Q6 as needed 12/20/2017 01/14/2018 Inactive oxycodone 20 mg tablet RxNorm: 7546371 1/2 Tablet(s) PO Q6 as needed 11/20/2017 12/19/2017 Inactive Victoza 2-Dino 0.6 mg/0.1 mL (18 mg/3 mL) subcutaneous pen injector RxNorm: 810298 1.2 Milligram(s) SQ daily 11/08/201712/07 Inactive oxycodone 20 mg tablet RxNorm: 9438333 1/2 Tablet(s) PO Q6 as needed 10/19/2017 11/17/2017 Inactive gabapentin 100 mg capsule RxNorm: 583606 1 Capsule(s) PO QPM at 5 pm 09/20/2017 01/14/2018 Inactive Lasix 20 mg tablet RxNorm: 418765 1 Tablet(s) QAM at 5pm 12/201703/18/2018 Inactive oxycodone 20 mg tablet RxNorm: 6049452 1/2 Tablet(s) PO Q6 as needed 09/18/2017 10/17/2017 Inactive oxycodone 20 mg tablet RxNorm: 4850796 1/2 Tablet(s) PO Q6 as needed 08/14/2017 09/12/2017 Inactive ketoconazole 2 % topical cream RxNorm: 025500 1 Gram(s) TOP BID to affected area until healed 08/03/2017 No Stop Date Active oxycodone 20 mg tablet RxNorm: 0332032 1/2 Tablet(s) PO Q6 as needed 07/17/2017 08/13/2017 Inactive pen needle, diabetic 31 gauge x 5/16" RxNorm: 1 Unit Dose Miscellaneous daily 06/25/2017 03/21/2018 Inactive daily use with victoza Bactrim DS 800 mg-160 mg tablet RxNorm: 719818 1 Tablet(s) PO BID Dr Norwood 06/25/2017 07/04/2017 Inactive Victoza 2-Dino 0.6 mg/0.1 mL (18 mg/3 mL) subcutaneous pen injector RxNorm: 725210 0.6 Milligram(s) SQ daily 06/25/201707/24 Inactive doxycycline hyclate 100 mg tablet RxNorm: 977143 1 Tablet(s) PO BID Dr Norwood 06/21/2017 06/30/2017 Inactive oxycodone 20 mg tablet RxNorm: 2616372 1/2 Tablet(s) PO Q6 as needed 06/14/2017 07/13/2017 Inactive clindamycin 150 mg capsule RxNorm: 997464 1 Capsule(s) PO Q8 06/16/2017 Inactive levothyroxine 175 mcg tablet RxNorm: 236927 TAKE ONE TABLET BY MOUTH DAILY 06/04/2017 09/01/2017 Inactive levothyroxine 175 mcg tablet RxNorm: 054883 TAKE ONE TABLET BY MOUTH DAILY 06/04/2017 11/30/2017 Inactive bisoprolol 5 mg-hydrochlorothiazide 6.25 mg tablet RxNorm: 857017 TAKE ONE TABLET BY MOUTH DAILY 05/24/2017 11/19/2017 Inactive oxycodone 20 mg tablet RxNorm: 7058445 1/2 Tablet(s) PO Q6 as needed 05/14/2017 06/12/2017 Inactive potassium chloride ER 10 mEq capsule,extended release RxNorm: 554761 TAKE ONE CAPSULE BY MOUTH DAILY NEEDED FOR 5 DAYS THEN NEEDED WITH LASIX 04/17/2017 10/13/2017 Inactive Lasix 20 mg tablet RxNorm: 395502 TAKE ONE TABLET BY MOUTH DAILY NEEDED 04/17/2017 09/19/2017 Inactive oxycodone 20 mg tablet RxNorm: 4591123 1/2 Tablet(s) PO Q6 as needed 04/12/2017 05/11/2017 Inactive Colcrys 0.6 mg tablet RxNorm: 909247 2 tabs at onset then may repeat 1 tab in 1 hours if needed- Tablet(s) PO 04/09/2017 No Stop Date Active then take daily until gout resolved Bactrim DS 800 mg-160 mg tablet RxNorm: 290526 1 Tablet(s) PO BID 04/09/2017 04/08/2017 Inactive dc levaquin Bactrim DS 800 mg-160 mg tablet RxNorm: 990993 1 Tablet(s) PO BID 04/09/2017 04/15/2017 Inactive dc levaquin Levaquin 500 mg tablet RxNorm: 647092 1 Tablet(s) PO daily 04/02/2017 Inactive Levaquin 500 mg tablet RxNorm: 822447 1 Tablet(s) PO daily 06/06/2017 Inactive indomethacin 25 mg capsule RxNorm: 704828 1 Capsule(s) PO TID PRN 03/22/2017 03/22/2017 Inactive Lasix 20 mg tablet RxNorm: 981093 1 Tablet(s) PO QDAY PRN 02/201704/16/2017 Inactive daily x 5 days then as needed Levaquin 500 mg tablet RxNorm: 724247 1 Tablet(s) PO daily 02/201703/31/2017 Inactive potassium chloride ER 10 mEq capsule,extended release RxNorm: 261844 1 Capsule(s) PO QDAY PRN 03/22/2017 04/16/2017 Inactive daily x 5 days then as needed with lasix oxycodone 20 mg tablet RxNorm: 3110488 1/2 Tablet(s) PO Q6 as needed 03/08/2017 04/06/2017 Inactive bisoprolol 5 mg-hydrochlorothiazide 6.25 mg tablet RxNorm: 437266 TAKE ONE TABLET BY MOUTH DAILY 02/14/2017 05/14/2017 Inactive oxycodone 20 mg tablet RxNorm: 8945073 1/2 Tablet(s) PO Q6 as needed 02/08/2017 03/07/2017 Inactive oxycodone 20 mg tablet RxNorm: 7014212 1/2 Tablet(s) PO Q6 as needed 01/08/2017 02/06/2017 Inactive levothyroxine 175 mcg tablet RxNorm: 081129 1 Tablet(s) PO daily 12/06/2016 06/03/2017 Inactive [SAVINGS FOR NON-COVERED DRUGS -- BIN:[id number], PCN: ASPROD1, Group: XXXXX, ID# XXXXXXX, Questions: . THIS IS NOT INSURANCE.] oxycodone 20 mg tablet RxNorm: 0955427 1/2 Tablet(s) PO Q6 as needed 12/04/2016 01/02/2017 Inactive oxycodone 20 mg tablet RxNorm: 7000518 1/2 Tablet(s) PO Q6 as needed 11/09/2016 12/03/2016 Inactive bisoprolol 5 mg-hydrochlorothiazide 6.25 mg tablet RxNorm: 073164 TAKE ONE TABLET BY MOUTH DAILY 11/08/2016 02/05/2017 Inactive oxycodone 20 mg tablet RxNorm: 1678815 1/2 Tablet(s) PO Q6 as needed 10/05/2016 11/03/2016 Inactive oxycodone 20 mg tablet RxNorm: 3570493 1/2 Tablet(s) PO Q6 as needed 09/06/2016 10/04/2016 Inactive oxycodone 20 mg tablet RxNorm: 0954993 1/2 Tablet(s) PO Q6 as needed 08/07/2016 09/05/2016 Inactive oxycodone 20 mg tablet RxNorm: 7853796 1/2 Tablet(s) PO Q6 as needed 07/04/2016 08/06/2016 Inactive oxycodone 20 mg tablet RxNorm: 4680676 1/2 Tablet(s) PO Q6 as needed 05/29/2016 07/03/2016 Inactive levothyroxine 150 mcg tablet RxNorm: 732599 1 Tablet(s) PO daily 04/10/2016 04/09/2016 Inactive [SAVINGS FOR NON-COVERED DRUGS -- BIN:[id number], PCN: ASPROD1, Group: XXXXX, ID# XXXXXXX, Questions: . THIS IS NOT INSURANCE.] oxycodone 20 mg tablet RxNorm: 7387253 1/2 Tablet(s) PO Q6 as needed 04/10/2016 05/28/2016 Inactive levothyroxine 150 mcg tablet RxNorm: 054804 1 Tablet(s) PO daily 04/10/2016 10/06/2016 Inactive [SAVINGS FOR NON-COVERED DRUGS -- BIN:023239, PCN: ASPROD1, Group: XXXXX, ID# XXXXXXX, Questions: . THIS IS NOT INSURANCE.] bisoprolol 5 mg-hydrochlorothiazide 6.25 mg tablet RxNorm: 026606 1 Tablet(s) PO daily 02/16/2016 12/31/2017 Inactive oxycodone 20 mg tablet RxNorm: 3674261 1/2 Tablet(s) PO Q6 as needed 02/16/2016 04/09/2016 Inactive oxycodone 20 mg tablet RxNorm: 7266418 1/2 Tablet(s) PO Q6 as needed 01/04/2016 02/15/2016 Inactive bisoprolol 5 mg-hydrochlorothiazide 6.25 mg tablet RxNorm: 540905 1 Tablet(s) PO daily 11/19/2015 01/17/2016 Inactive bisoprolol 5 mg-hydrochlorothiazide 6.25 mg tablet RxNorm: 995279 1 Tablet(s) PO daily 11/04/2015 11/18/2015 Inactive oxycodone 20 mg tablet RxNorm: 5391457 1/2 Tablet(s) PO Q6 as needed 10/27/2015 01/03/2016 Inactive levothyroxine 150 mcg tablet RxNorm: 765889 1 Tablet(s) PO daily 08/26/2015 02/21/2016 Inactive [SAVINGS FOR NON-COVERED DRUGS -- BIN:837859, PCN: ASPROD1, Group: XXXXX, ID# XXXXXXX, Questions: . THIS IS NOT INSURANCE.] bisoprolol 5 mg-hydrochlorothiazide 6.25 mg tablet RxNorm: 777266 1 Tablet(s) PO daily 08/26/2015 10/24/2015 Inactive oxycodone 10 mg tablet RxNorm: 2092725 1 Tablet(s) PO Q6 as needed 05/06/2015 10/26/2015 Inactive levothyroxine 150 mcg tablet RxNorm: 946462 1 Tablet(s) PO daily 02/05/2015 08/03/2015 Inactive [SAVINGS FOR NON-COVERED DRUGS -- BIN:092291, PCN: ASPROD1, Group: XXXXX, ID# XXXXXXX, Questions: . THIS IS NOT INSURANCE.] Vitamin D2 50,000 unit capsule RxNorm: 487328 1 Capsule(s) PO weekly 02/05/2015 05/05/2015 Inactive [SAVINGS FOR NON-COVERED DRUGS -- BIN:233678, PCN: ASPROD1, Group: XXXXX, ID# XXXXXXX, Questions: . THIS IS NOT INSURANCE.] Vitamin D2 50,000 unit capsule RxNorm: 173640 1 Capsule(s) PO weekly 02/05/2015 02/04/2015 Inactive bisoprolol 5 mg-hydrochlorothiazide 6.25 mg tablet RxNorm: 808887 1 Tablet(s) PO daily 01/26/2015 02/24/2015 Inactive levothyroxine 200 mcg tablet RxNorm: 708951 1 Tablet(s) PO daily 01/26/2015 01/25/2015 Inactive levothyroxine 200 mcg tablet RxNorm: 845215 1 Tablet(s) PO every other day 01/26/2015 02/04/2015 Inactive [SAVINGS FOR NON-COVERED DRUGS -- BIN:196396, PCN: ASPROD1, Group: XXXXX, ID# XXXXXXX, Questions: . THIS IS NOT INSURANCE.] aspirin 81 mg chewable tablet RxNorm: 846588 1 Tablet(s) PO daily No Start Date Active Plavix 75 mg tablet RxNorm: 711118 1 Tablet(s) PO daily manage by Dr Baig No Start Date Active simvastatin 40 mg tablet RxNorm: 335288 1 Tablet(s) PO QHS managed by Dr Baig No Start Date Active Colcrys 0.6 mg tablet RxNorm: 032361 2 tabs at onset then may repeat 1 tab in 1 hours if needed- Tablet(s) PO No Start Date 04/08/2017 Inactive then take daily until gout resolved aspirin 325 mg tablet RxNorm: 486479 1 Tablet(s) PO daily No Start Date 05/03/2016 Inactive levothyroxine 75 mcg tablet RxNorm: 800032 1 Tablet(s) PO every other day No Start Date 02/04/2015 Inactive takes qod with 200mcg oxycodone 10 mg tablet RxNorm: 8084144 1 Tablet(s) PO Q6 as needed No Start Date 05/05/2015 Inactive ketoconazole 2 % topical cream RxNorm: 460566 1 Gram(s) TOP BID to affected area [...] lower limb ICD-10: L03.115 ICD-9: 682.6 10/14/2018 Localized edema ICD-10: R60.0 ICD-9: 782.3 10/14/2018 Chronic obstructive pulmonary disease, unspecified ICD-10: J44.9 ICD-9: 496 10/04/2018 Malignant neoplasm of prostate ICD-10: C61 ICD-9: [...] Code Item Item Code Result Date %Hba1C Fnd809 % HbA1c 94399-9 6.4 % 08/30/2018 %Hba1C Vli501 Gluc Ave 137 mg/dL 08/30/2018 Culture Urine [id number] URINE CULTURE SEE NOTES 02/22/2018 Urine Culture [...] 24.5 pg 02/20/2018 Cbc With Differential Ord2 [place]% 8.9 % 02/20/2018 Cbc With Differential Ord2 [...] 0.81 K/ul 02/20/2018 Cbc With Differential Ord2 [place] ABS# 0.7 K/ul 02/20/2018 Cbc With Differential Ord2 Eos ABS# 0.4 K/ul 02/20/2018 Cbc With Differential Ord2 Baso ABS# 0.0 K/ul 02/20/2018 %Hba1C Tig525 % HbA1c 12492-0 7.7 % 02/20/2018 %Hba1C Pzk230 Gluc Ave 174 mg/dL 02/20/2018 Lipase Xhl821 LIPASE 17 U/L 02/20/2018 Microalbumin Zou119 MicroAlb 6.5 mg/dL 02/20/2018 Amylase Ord34 AMYLASE 15 U/L 02/20/2018 Free T4 Vpl519 FREE T4 0.61 ng/dL 02/20/2018 Lipid Ord30 CHOL 203 mg/dL 02/20/2018 Lipid Ord30 HDL 7.0 mg/dl 02/20/2018 Lipid Ord30 TRIG 271 mg/dL 02/20/2018 Lipid Ord30 LDL 142 mg/dL 02/20/2018 Lipid Ord30 C/HDL 29.0 Ratio 02/20/2018 Comp Metabolic Viq508 NA 134 mEq/L 02/20/2018 Comp Metabolic Qau728 K 3.6 mEq/L 02/20/2018 Comp Metabolic Rbf781 CL 96 mEq/L 02/20/2018 Comp Metabolic Pkx417 CO2 29.0 mEq/L 02/20/2018 Comp Metabolic Jqx699 ANION GAP 13 02/20/2018 Comp Metabolic Ihx633 GLUCOSE 165 mg/dL 02/20/2018 Comp Metabolic Drj828 Creat 1.2 mg/dL 02/20/2018 Comp Metabolic Gkx851 eGFR 63 ml/min/1.73m2 02/20/2018 Comp Metabolic Vcf117 BUN 14 mg/dL 02/20/2018 Comp Metabolic Smx441 B/C Ratio 11.6 Ratio 02/20/2018 Comp Metabolic Zhm789 CALCIUM 8.5 mg/dL 02/20/2018 Comp Metabolic Idm309 ALK PHOS 633 U/L 02/20/2018 Comp Metabolic Jbu182 AST(SGOT) 112 U/L 02/20/2018 Comp Metabolic Dfp115 ALT(SGPT) 148 U/L 02/20/2018 Comp Metabolic Iik043 BILI T 6.8 mg/dL 02/20/2018 Comp Metabolic Svj599 ALBUMIN 3.3 g/dL 02/20/2018 Comp Metabolic Owe704 TPRO 5.9 g/dL 02/20/2018 Comp Metabolic Fwn829 GLOB 2.6 g/dL 02/20/2018 Comp Metabolic Mgh313 A/G Ratio 1.3 Ratio 02/20/2018 Comp Metabolic Ygt959 Osmo 272 mOsmo 02/20/2018 Total Psa Ord10 [...] Metabolic Ord15 CALCIUM 9.2 mg/dL 11/09/2017 %Hba1C Ydg839 % HbA1c 52187-8 8.0 % 11/09/2017 %Hba1C Rli474 Gluc Ave 183 mg/dL 11/09/2017 Metabolic Ord15 [...] Ord15 CALCIUM 8.7 mg/dL 06/25/2017 Culture Wound [id number] WOUND CULTURE SEE NOTES 04/09/2017 Culture Wound [id number] Continued Results 04/09/2017 Amylase Ord34 AMYLASE 19 [...] 27.9 pg 03/22/2017 Cbc With Differential Ord2 [place]% 8.3 % 03/22/2017 Cbc With Differential Ord2 [...] 1.35 K/ul 03/22/2017 Cbc With Differential Ord2 [place] ABS# 1.4 K/ul 03/22/2017 Cbc With Differential Ord2 Eos ABS# 0.2 K/ul 03/22/2017 Cbc With Differential Ord2 Baso ABS# 0.0 K/ul 03/22/2017 Comp Metabolic Cec522 NA 134 mEq/L 03/22/2017 Comp Metabolic Npm203 K 4.5 mEq/L 03/22/2017 Comp Metabolic Qry513 CL 93 mEq/L 03/22/2017 Comp Metabolic Zod657 CO2 31.0 mEq/L 03/22/2017 Comp Metabolic Xdg235 ANION GAP 15 03/22/2017 Comp Metabolic Fha469 GLUCOSE 198 mg/dL 03/22/2017 Comp Metabolic Onz367 Creat 1.5 mg/dL 03/22/2017 Comp Metabolic Zxg603 eGFR 50 ml/min/1.73m2 03/22/2017 Comp Metabolic Yzp139 BUN 32 mg/dL 03/22/2017 Comp Metabolic Qtu783 B/C Ratio 21.6 Ratio 03/22/2017 Comp Metabolic Got485 CALCIUM 8.4 mg/dL 03/22/2017 Comp Metabolic Sxg513 ALK PHOS 245 U/L 03/22/2017 Comp Metabolic Ynq392 AST(SGOT) 18 U/L 03/22/2017 Comp Metabolic Kwe582 ALT(SGPT) 17 U/L 03/22/2017 Comp Metabolic Bbj263 BILI T 0.8 mg/dL 03/22/2017 Comp Metabolic Iht593 ALBUMIN 2.9 g/dL 03/22/2017 Comp Metabolic Tie937 TPRO 6.3 g/dL 03/22/2017 Comp Metabolic Oja618 GLOB 3.4 g/dL 03/22/2017 Comp Metabolic Pct754 A/G Ratio 0.8 Ratio 03/22/2017 Comp Metabolic Vgo406 Osmo 281 mOsmo 03/22/2017 Lipase Jaq659 LIPASE 12 U/L 03/22/2017 Comp Metabolic Zbf677 NA 142 mEq/L 03/09/2017 Comp Metabolic Aew453 K 4.8 mEq/L 03/09/2017 Comp Metabolic Yeg548 CL 103 mEq/L 03/09/2017 Comp Metabolic Idl250 CO2 30.0 mEq/L 03/09/2017 Comp Metabolic Eoj607 ANION GAP 14 03/09/2017 Comp Metabolic Lph238 GLUCOSE 152 mg/dL 03/09/2017 Comp Metabolic Fdn226 Creat 1.3 mg/dL 03/09/2017 Comp Metabolic Psx371 eGFR 56 ml/min/1.73m2 03/09/2017 Comp Metabolic Wzn178 BUN 23 mg/dL 03/09/2017 Comp Metabolic Pst163 B/C Ratio 17.3 Ratio 03/09/2017 Comp Metabolic Cjj562 CALCIUM 8.5 mg/dL 03/09/2017 Comp Metabolic Nns195 ALK PHOS 97 U/L 03/09/2017 Comp Metabolic Qud163 AST(SGOT) 10 U/L 03/09/2017 Comp Metabolic Chf966 ALT(SGPT) 6 U/L 03/09/2017 Comp Metabolic Ury493 BILI T 0.4 mg/dL 03/09/2017 Comp Metabolic Bpb589 ALBUMIN 3.4 g/dL 03/09/2017 Comp Metabolic Xeg665 TPRO 6.2 g/dL 03/09/2017 Comp Metabolic Uer625 GLOB 2.8 g/dL 03/09/2017 Comp Metabolic Uih258 A/G Ratio 1.2 Ratio 03/09/2017 Comp Metabolic Gzh718 Osmo 290 mOsmo 03/09/2017 Free T4 Dka530 FREE T4 0.86 ng/dL 03/08/2017 Cbc With [...] 28.2 pg 03/08/2017 Cbc With Differential Ord2 [place]% 8.7 % 03/08/2017 Cbc With Differential Ord2 [...] 1.63 K/ul 03/08/2017 Cbc With Differential Ord2 [place] ABS# 0.9 K/ul 03/08/2017 Cbc With Differential Ord2 Eos ABS# 0.5 K/ul 03/08/2017 Cbc With Differential Ord2 Baso ABS# 0.0 K/ul 03/08/2017 Tsh Ord6 hTSH II 4.52 uIU/mL 03/08/2017 %Hba1C Gmf064 % HbA1c 28430-6 8.5 % 03/08/2017 %Hba1C Beh008 Gluc Ave 197 mg/dL 03/08/2017 %Hba1C Uts351 % HbA1c 43151-4 9.8 % 12/04/2016 %Hba1C Xtf672 Gluc Ave 235 mg/dL 12/04/2016 Tsh Ord6 hTSH II 10.65 uIU/mL 11/30/2016 Comp Metabolic Ybc937 NA 134 mEq/L 11/30/2016 Comp Metabolic Jsy295 K 5.0 mEq/L 11/30/2016 Comp Metabolic Hgd414 CL 95 mEq/L 11/30/2016 Comp Metabolic Jot577 CO2 34.0 mEq/L 11/30/2016 Comp Metabolic Ktc470 ANION GAP 10 11/30/2016 Comp Metabolic Ujf529 GLUCOSE 226 mg/dL 11/30/2016 Comp Metabolic Fpo764 Creat 1.3 mg/dL 11/30/2016 Comp Metabolic Riw498 eGFR 56 ml/min/1.73m2 11/30/2016 Comp Metabolic Aji168 BUN 21 mg/dL 11/30/2016 Comp Metabolic Eci364 B/C Ratio 15.7 Ratio 11/30/2016 Comp Metabolic Oui146 CALCIUM 8.9 mg/dL 11/30/2016 Comp Metabolic Upw073 ALK PHOS 112 U/L 11/30/2016 Comp Metabolic Yok909 AST(SGOT) 9 U/L 11/30/2016 Comp Metabolic Dtl242 ALT(SGPT) 7 U/L 11/30/2016 Comp Metabolic Cly422 BILI T 0.6 mg/dL 11/30/2016 Comp Metabolic Dgj974 ALBUMIN 3.6 g/dL 11/30/2016 Comp Metabolic Pqr110 TPRO 6.4 g/dL 11/30/2016 Comp Metabolic Gzs491 GLOB 2.9 g/dL 11/30/2016 Comp Metabolic Jie866 A/G Ratio 1.2 Ratio 11/30/2016 Comp Metabolic Osn035 Osmo 278 mOsmo 11/30/2016 Lipid Ord30 CHOL [...] 13.0 % 11/30/2016 Cbc With Differential Ord2 [place]% 7.9 % 11/30/2016 Cbc With Differential Ord2 [...] 1.34 K/ul 11/30/2016 Cbc With Differential Ord2 [place] ABS# 0.8 K/ul 11/30/2016 Cbc With Differential Ord2 Eos ABS# 0.3 K/ul 11/30/2016 Cbc With Differential Ord2 [place] ABS# 0.0 K/ul 11/30/2016 Free T4 Fso448 FREE T4 0.89 ng/dL 11/30/2016 Review of [...] Codes Date ADMIN PNEUMOCOCCAL VACCINE SNOMED CT: 20034132 CPT-4: G0009 02/05/2018 Pneumococcal Polysaccharide Vaccine, 23-Valent, Ad CPT-4: 97754 02/05/2018 PPPS, SUBSEQ VISIT CPT -4: G0439 11/30/2017 URINALYSIS NONAUTO W/O SCOPE CPT-4: 57848 03/22/2017 URINALYSIS NONAUTO W/O SCOPE CPT-4: 07744 03/21/2017 PPPS, SUBSEQ VISIT CPT -4: G0439 11/30/2016 PNEUMOCOCCAL VACC 13 JAVIER IM Formatting Model/CDA Sections, Assigned to SNOMED CT: 48902750 CPT-4: 17009Grpnyzx 11/30/2016 ADMIN PNEUMOCOCCAL VACCINE SNOMED CT: 68884752 CPT-4: G0009 11/30/2016 Vital Signs Date Vital 10/14/2018 Blood Pressure 1: 120/56 Code : 8480-6 Heart Rate 1: 67 bpm Height: 5'10" SpO2: 92% 10/10/2018 Blood Pressure 1: 126/70 Code : 8480-6 BMI: 34.7 Code : 76868-6 Heart Rate 1 : 80 bpm Height: 5'10" SpO2: 96% Temperature: 37.1 (C) / 98.7 (F) Weight: 242 lbs 10/04/2018 Blood Pressure 1: 120/70 Code : 8480-6 Height: 5'10" SpO2: 96% 08/29/2018 Blood Pressure 1: 104/60 Code : 8480-6 BMI: 34.6 Code : 77283-5 Heart Rate 1 : 68 bpm Height: 5'10" SpO2: 98% Weight: 241 lbs 02/25/2018 Blood Pressure 1: 120/70 Code : 8480-6 BMI: 37.0 Code : 67542-4 Heart Rate 1 : 51 bpm Height: 5'10" SpO2: 97% Weight: 258 lbs 02/20/2018 Blood Pressure 1: 124/70 Code : 8480-6 BMI: 38.0 Code : 58460-9 Heart Rate 1 : 60 bpm Height: 5'10" SpO2: 96% Weight: 265 lbs 02/05/2018 Blood Pressure 1: 116/66 Code : 8480-6 BMI: 38.0 Code : 73364-9 Heart Rate 1 : 63 bpm Height: 5'10" SpO2: 98% Weight: 265 lbs 11/30/2017 Blood Pressure 1: 132/60 Code : 8480-6 BMI: 37.0 Code : 75593-4 Heart Rate 1 : 100 bpm Height: 5'10 " SpO2: 96% Waist Measure (cm): 122 cm Weight: 258 lbs 11/08/2017 Blood Pressure 1: 126/64 Code : 8480-6 BMI: 37.2 Code : 32926-7 Heart Rate 1 : 92 bpm Height: 5'10" SpO2: 94% Weight: 259 lbs 09/20/2017 Blood Pressure 1: 122/68 Code : 8480-6 BMI: 36.9 Code : 62537-9 Heart Rate 1 : 57 bpm Height: 5'10" SpO2: 96% Weight: 257 lbs 06/25/2017 Blood Pressure 1: 124 Code : 8480-6 BMI: 37.0 Code : 16912-4 Height: 5'10 " Weight: 258 lbs 06/07/2017 Blood Pressure 1: 12264 Code : 8480-6 BMI: 37.0 Code : 67588-5 Heart Rate 1 : 60 bpm Height: 5'10" SpO2: 94% Temperature: 36.4 (C) / 97.6 (F) Weight: 258 lbs 05/03/2017 Blood Pressure 1: 118 Code : 8480-6 BMI: 38.2 Code : 00488-5 Heart Rate 1 : 52 bpm Height: 5'10" SpO2: 98% Weight: 266 lbs 04/02/2017 Blood Pressure 1: 118 Code : 8480-6 BMI: 38.2 Code : 25161-3 Heart Rate 1 : 53 bpm Height: 5'10" SpO2: 93% Weight: 266 lbs 03/26/2017 Blood Pressure 1: 114 Code : 8480-6 BMI: 38.3 Code : 89925-8 Height: 5'10 " Weight: 267 lbs 03/22/2017 Blood Pressure 1: 122 Code : 8480-6 BMI: 40.0 Code : 76606-0 Heart Rate 1 : 52 bpm Height: 5'10" SpO2: 94% Weight: 279 lbs 03/08/2017 Blood Pressure 1: 124 Code : 8480-6 BMI: 39.4 Code : 31694-5 Heart Rate 1 : 51 bpm Height: 5'10" SpO2: 94% Weight: 274 lbs 8 oz 12/06/2016 Blood Pressure 1: 126/62 Code : 8480-6 BMI: 40.3 Code : 68822-9 Heart Rate 1 : 50 bpm Height: 5'10" SpO2: 94% Weight: 281 lbs 11/30/2016 Blood Pressure 1: 112/ Code : 8480-6 BMI: 40.3 Code : 85473-3 Heart Rate 1 : 52 bpm Height: 5'10" SpO2: 93% Waist Measure (cm): 135 cm Weight: 281 lbs 11/28/2016 Blood Pressure 1: 132/72 Code : 8480-6 BMI: 40.3 Code : 70551-0 Heart Rate 1 : 50 bpm Height: 5'10" Weight: 281 lbs 05/04/2016 Blood Pressure 1: 128/78 Code : 8480-6 BMI: 38.5 Code : 69859-7 Heart Rate 1 : 74 bpm Height: 5'10" SpO2: 98% Weight: 268 lbs 8 oz 11/04/2015 Blood Pressure 1: 136/60 Code : 8480-6 BMI: 38.0 Code : 99283-9 Heart Rate 1 : 55 bpm Height: 5'10" SpO2: 94% Weight: 265 lbs 07/30/2015 Blood Pressure 1: 128/74 Code : 8480-6 BMI: 38.0 Code : 75927-0 Heart Rate 1 : 47 bpm Height: 5'10" SpO2: 97% Weight: 265 lbs 01/26/2015 Blood Pressure 1: 122/64 Code : 8480-6 BMI: 34.0 Code : 26286-9 Heart Rate 1 : 68 bpm Height: [...] data Encounters Encounter Performer Location Codes Date [id number] EST. PATIENT, LEVEL III Diagnosis: Localized edema[ICD10: R60.0] Diagnosis: Cellulitis of left lower limb[ICD10: L03.116] Diagnosis: Cellulitis of right lower limb[ICD10: L03.115] Kiki Sanchez MD, [facility] CPT-4: 46855 10/14/2018 [id number] EST. PATIENT, LEVEL III Diagnosis: Localized edema[ICD10: R60.0] Diagnosis: Cellulitis of left lower limb[ICD10: L03.116] Diagnosis: Cellulitis of right lower limb[ICD10: L03.115] Kiki Sanchez MD, [facility] CPT-4: 92100 10/10/2018 ([id number]) [id number] EST. PATIENT, LEVEL IV Diagnosis: Type 2 diabetes mellitus with foot ulcer[ICD10: E11.621] Diagnosis: Essential (primary) hypertension[ICD10: I10] Diagnosis: Malignant neoplasm of prostate[ICD10: C61] Diagnosis: Chronic obstructive pulmonary disease, unspecified[ICD10: J44.9] Diagnosis: Hypoxemia[ICD10: R09.02] Sarah Sanchez MD, [facility] CPT-4: 29652 10/04/2018 ([id number]) [id number] EST. PATIENT, LEVEL IV Diagnosis: Type 2 diabetes mellitus with hyperglycemia[ICD10: E11.65] Diagnosis: Essential (primary) hypertension[ICD10: I10] Diagnosis: Malignant neoplasm of prostate[ICD10: C61] Sarah Sanchez MD, [facility] CPT-4: 31621 08/29/2018 ([id number]) [id number] EST. PATIENT, LEVEL IV Diagnosis: Malignant neoplasm of prostate[ICD10: C61] Dorene Sanchez MD, [facility] CPT-4: 34547 02/25/2018 [id number] EST. PATIENT, LEVEL IV Diagnosis: Generalized abdominal pain[ICD10: R10.84] Diagnosis: Unspecified jaundice[ICD10: R17] Diagnosis: Gross hematuria[ICD10: R31.0] Kiki Sanchez MD, [facility] CPT-4 : 12858 02/20/2018 ([id number]) 47730 EST. PATIENT, LEVEL IV Diagnosis: Type 2 diabetes mellitus with hyperglycemia[ICD10: E11.65] Diagnosis: Essential (primary) hypertension[ICD10: I10] Diagnosis: Chronic kidney disease, stage 3 (moderate)[ICD10: N18.3] Diagnosis: Chronic pain syndrome[ICD10: G89.4] Diagnosis: Other specified hypothyroidism[ICD10: E03.8] Diagnosis: Encounter for screening for malignant neoplasm of prostate[ICD10: Z12.5] Diagnosis: Encounter for immunization[ICD10: Z23] Sarah Sanchez MD, [facility] CPT-4: 22230 02/05/2018 ([id number]) 98383 EST. PATIENT, LEVEL IV Diagnosis: Type 2 diabetes mellitus with hyperglycemia[ICD10: E11.65] Diagnosis: Essential (primary) hypertension[ICD10: I10] Dorene Sanchez MD, [facility] CPT-4: 42123 11/08/2017 ([id number]) 20891 EST. PATIENT, LEVEL IV Diagnosis: Type 2 diabetes mellitus with hyperglycemia[ICD10: E11.65] Diagnosis: Chronic pain syndrome[ICD10: G89.4] Diagnosis: Essential (primary) hypertension[ICD10: I10] Diagnosis: Chronic kidney disease, stage 3 (moderate)[ICD10: N18.3] Diagnosis: Localized edema[ICD10: R60.0] Dorene Sanchez MD, [facility] CPT- 4: 23788 09/20/2017 ([id number]) 86721 EST. PATIENT, LEVEL III Diagnosis: Type 2 diabetes mellitus with hyperglycemia[ICD10: E11.65] Sarah Sanchez MD, [facility] CPT-4: 53240 06/25/2017 ([id number]) 64343 EST. PATIENT, LEVEL III Diagnosis: Cellulitis of left lower limb[ICD10: L03.116] Sarah Sanchez MD, [facility] CPT-4: 62318 06/07/2017 ([id number]) 35166 EST. PATIENT, LEVEL III Diagnosis: Localized edema[ICD10: R60.0] Diagnosis: Type 2 diabetes mellitus with foot ulcer[ICD10: E11.621] Sarah Sanchez MD , [facility] CPT-4: 06763 05/03/2017 ([id number]) 11860 EST. PATIENT, LEVEL III Diagnosis: Cellulitis of left lower limb[ICD10: L03.116] Diagnosis: Localized edema[ICD10: R60.0] Sarah Sanchez MD, [facility] CPT-4: 83848 04/02/2017 ([id number]) Miscellaneous no charge Diagnosis: Localized edema[ICD10: R60.0] Diagnosis: Cellulitis of left lower limb[ICD10: L03.116] aSrah Sanchez MD, [facility] CPT-4: 22947 03/26/2017 ([id number]) 45637 EST. 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 PATIENT, LEVEL IV Diagnosis: Type 2 diabetes mellitus with hyperglycemia[ICD10: E11.65] Diagnosis: Other specified hypothyroidism[ICD10: E03.8] Diagnosis: Essential (primary) hypertension[ICD10: I10] Sarah Sanchez MD, [facility] CPT-4: 45372 03/08/2017 [id number]) 78117 EST. PATIENT, LEVEL III Diagnosis: Type 2 diabetes mellitus with hyperglycemia[ICD10: E11.65] Diagnosis: Other specified hypothyroidism[ICD10: E03.8] Sarah Sanchez MD, [facility] CPT-4: 25629 12/06/2016 [id number]) 93693 EST. PATIENT, LEVEL IV Diagnosis: Essential (primary) hypertension[ICD10: I10] Diagnosis: Chronic kidney disease, stage 3 (moderate)[ICD10: N18.3] Dorene Sanchez MD, [facility] CPT-4: 08826 11/28/2016 ([id number]) 73700 EST. PATIENT, LEVEL IV Diagnosis: Essential (primary) hypertension[ICD10: I10] Diagnosis: Chronic pain syndrome[ICD10: G89.4] Diagnosis: Chronic kidney disease, stage 3 (moderate)[ICD10: N18.3] Diagnosis: Vitamin B12 deficiency anemia due to intrinsic factor deficiency[ ICD10: D51.0] Diagnosis: Other specified hypothyroidism[ICD10: E03.8] Dorene Sanchez MD, [facility] CPT-4: 84043 05/04/2016 [id number] EST. PATIENT, LEVEL III Diagnosis: Chronic pain syndrome[ICD10: G89.4] Diagnosis: Essential (primary) hypertension[ICD10: I10] Diagnosis: Other specified hypothyroidism[ICD10: E03.8] Kiki Sanchez MD, [facility] CPT-4: 28162 11/04/2015 79984 EST. PATIENT, LEVEL III Diagnosis: Chronic pain syndrome[ICD10: G89.4] Diagnosis: Essential (primary) hypertension[ICD10: I10] Kiki Sanchez MD, [facility] CPT-4: 72393 07/30/2015 ([id number]) OFFICE/OUTPATIENT VISIT NEW Diagnosis: ESSENTIAL HYPERTENSION[ICD9: 401.9] Diagnosis: HYPOTHYROIDISM[ICD9: 244.9] Diagnosis: ANEMIA[ICD9: 285.9] Diagnosis: Vitamin B12 deficiency[ICD9: 266.2] Diagnosis: CHRONIC PAIN SYNDROME[ICD9: 338.4] Diagnosis: Chronic renal insufficiency, stage III (moderate)[ICD9: 585.3] Diagnosis: GOUT[ICD9: 274.9] Dorene Sanchez MD, [facility] CPT-4: 11381 01/26/2015 Plan of Care Planned Activity Notes [...] discharge. 10/10/2018 [phone] ([facility] Complex 10/10/2018 Patient Education: Patient Medication Summary Completed 10/10/2018 Visit Plan: DM with peripheral neuropathy-paperwork completed for diabetic shoes and will fax to Dr Bauer HTN-controlled -no changes Wfbplfchu-ATUG-TKE-prostate cancer with mets- patient qualifies for oxygen-oxygen saturation dropped to 86% on room air during ambulation but increased to 99% on 2L NC at rest-will send orders to [facility] for continue oxygen at 2L per nasal cannula 10/04/2018 Appointment: [phone] [phone] [place] (30 min) Complex 10/04/2018 Patient Education: [...] Moreno 08/29/2018 Appointment: Sarah Hernandes WPtel: [phone] [phone] (15 min) Moderate 08/29/2018 Patient Education: Patient Medication Summary Completed 08/29/2018 Referral: Edgard Rivera MD WPtel: Via [address] with Dr. Moreno. Patient informed. Referral info faxed. Completed 02/27/2018 Visit Plan: Recurrent prostate cancer - I have recommended a referral to Dr. Rivera. We discussed the case at length today- he is not interested in extensive treatment, but if possible to extend his quantity and quality of life, he would like to try. 02/25/2018 Appointment: Dorene Sanchez WPtel: [phone] [facility] (15 min) Moderate 02/25/2018 Patient Education: Patient Medication Summary Completed 02/25/2018 Care Plan: Referral Order SNOMED-CT : [id number] Pending 02/25/2018 Visit Plan: Intermittent abdominal pain, jaundice, itching - will check labs and treat as indicated - pt is to go to the ER with any acute change in symptoms or any acute concerns. 02/20/2018 Appointment: Kiki Menjivar WPtel: [facility] [place] (30 min) Complex 02/20/2018 Patient Education: [...] control. 02/05/2018 Appointment: Sarah Hernandes WPtel: [phone] [phone] (30 min) Complex 02/05/2018 Patient Education: Patient [...] care surrogate. 11/30/2017 Appointment: Sarah Hernandes WPtel: [phone] [phone] [facility] - Annual Wellness Visit 11/30/2017 Patient [...] 11/08/2017 Appointment: Dorene Sanchez WPtel: [phone] [phone] (15 min) Moderate 11/08/2017 Patient Education: Patient [...] understands the consequences of over-medication. 09/20/2017 Appointment: [facility] chave[facility] [phone] [facility] (15 min) Moderate 09/20/2017 Patient Education: Patient [...] glucose control. 06/25/2017 Appointment: Sarah Hernandes WPtel: [phone] [phone] (30 min) Complex 06/25/2017 Patient Education: Patient Medication Summary Completed 06/25/2017 Appointment: Sarah Hernandes WPtel: [facility] [phone] (30 min) Complex 06/22/2017 Visit Plan: Cellulitis - start oral antibiotics as previously directed, return to clinic as previously directed, call for acute change in symptoms, worsening redness, warmth, discharge. 06/07/2017 Appointment: Sarah Hernandes WPtel: [facility] [phone] (30 min) Complex 06/07/2017 Patient Education: Patient Medication Summary Completed 06/07/2017 Patient Education: Obesity Completed 06/07/2017 Appointment: Dorene Sanchez WPtel: [facility] [place] (15 min) Moderate 05/31/2017 Visit Plan: Edema-significantly improved-no changes Ulcer- left lower leg and foot-seeing Dr Norwood at wound care-appt scheduled with Dr Frausto for vascular evaluation 05/03/2017 Appointment: Sarah Hernandes WPtel: [phone] [phone] (15 min) Moderate 05/03/2017 Patient Education: Patient Medication Summary Completed 05/03/2017 Patient Education: Obesity Completed 05/03/2017 Visit Plan: Beeumqhdsp-kguclpeot-ftejuet to finish abx-no further treatment indicated Edema-significantly improved-no longer weeping- continue unna boots twice weekly with home health 04/02/2017 Appointment: Sarah Hernandes WPtel: [phone] [phone] [place] (30 min) Complex 04/02/2017 Patient Education: Patient Medication Summary Completed 04/02/2017 Patient Education: Obesity Completed 04/02/2017 Visit Plan: Cellulitis-left leg-continue levaquin Edema- increase lasix/potassium-consult [facility] for unna boots/dressing changes 03/26/2017 Appointment: [phone] [phone] [place] (15 min) Moderate 03/26/2017 Patient Education: [...] indomethacin-stop aleve 03/22/2017 Appointment: Sarah Hernandes WPtel: [address] [place], [place] [phone] (15 min) Moderate 03/22/2017 Patient Education: Patient [...] of control. 03/08/2017 Appointment: Sarah Hernandes WPtel: [address] [place] [phone] (30 min) Complex 03/08/2017 Patient Education: Patient [...] [facility]el: [facility] [phone] [facility] - Annual Wellness Visit 11/30/2016 [...] fluids. 11/28/2016 Appointment: [facility]el[phone] [facility] (15 min) Moderate 11/28/2016 Patient Education: Patient [...] 01/26/2015 Referral: Edgard Rivera MD WPtel: [address] [place] Referral Appointment Requested Instructions Comment Take lasix 20mg a day twice a [...] to clinic on Sunday to monitor . Chronic Pain Syndrome - pt has [...] glucose control. increase the victoza to 1.2 WOUND CARE APPT ANTIBIOTIC TO [facility] . Cellulitis - start oral antibiotics as previously directed, return to clinic as previously directed, call for acute change in symptoms, worsening redness, warmth, discharge. WRAP LEGS-THIGHS TO TOES LEVAQUIN 500MG DAILY [...] GFR 50-recommend patient stop the indomethacin-stop aleve REPEAT HGB A1C, CMP, TSH, FREE T4 [...] months based on previous levels of control. Repeat labs at next appointment . Edema-significantly improved-no changes Ulcer-left lower leg and foot-seeing Dr Norwood at wound care-appt scheduled with Dr Frausto for vascular evaluation . Oaebpbocvp-dsuwewjhs-kanmbsc to finish abx-no further treatment indicated Edema-significantly improved-no longer weeping-continue unna boots twice weekly with home health victoza 0.6mg daily . Diabetes Mellitus - [...] allow for greater blood glucose control. . DM with peripheral neuropathy-paperwork completed for diabetic shoes and will fax to Dr Bauer HTN-controlled -no changes Uhqedtqpa-IGVJ-AIQ-prostate cancer with mets- patient qualifies for oxygen- oxygen saturation dropped to 86% on room air during ambulation but increased to 99% on 2L NC at rest-will send orders to [facility] for continue oxygen at 2L per nasal cannula Monitor your blood pressure at home and [...] labs - may need b12 shots. . Intermittent abdominal pain, jaundice, itching - will check labs and treat as indicated - pt is to go to the ER with any acute change in symptoms or any acute concerns. . Hypertension - well controlled - [...] discuss further treatment options with Dr Moreno PREVNAR 13 TODAY- GIVEN IN OFFICE PREVNAR 23 IN ONE YEAR SHINGLES VACCINATION TO BE ADMINISTERED AT [facility] RECOMMEND OBTAINING MEDICAL POWER OF BUILDING CLEANER AND LIVING WILL PATIENT DOES NOT HAVE [...] YEAR SHINGLES VACCINATION TO BE ADMINISTERED AT [facility] RECOMMEND OBTAINING MEDICAL POWER OF BUILDING CLEANER AND LIVING WILL PATIENT DOES NOT HAVE [...] YEAR SHINGLES VACCINATION TO BE ADMINISTERED AT [facility] RECOM[facility]END OBTAINING MEDICAL POWER OF BUILDING CLEANER AND LIVING WILL PATIENT DOES NOT HAVE [...] CARE . Cellulitis-left leg-continue levaquin Edema-increase lasix/potassium-consult [facility] for [facility] boots/dressing changes . Recurrent prostate [...] directed, and understands the consequences of over-medication. RETURN LATER THIS WEEK FOR FASTING LABS [...]
--- OUTSIDE RECORDS SUMMARY | 2018-11-26 11:36 | XMS REPORT | CCD ---
Author Author Dorene Sanchez Organization [facility] Address [address] [place] [address] Phone Care Team Providers Care Reconciliation Manager Name Role Phone PP Unavailable CCM Unavailable Summary Purpose Interface Exchange Insurance Providers Payer name Policy type / Coverage type Covered alliance party ID Effective Begin Date Effective End Date WPS Medicare Part B Medicare Part B [id number] Unknown Unknown Family history Father Diagnosis Age At Onset Stroke Unknown Mother Diagnosis Age At Onset Stroke Unknown Diabetes mellitus Type 2 Unknown Social History Social History Element Codes Description Effective Dates Tobacco history SNOMED CT: 348226044 Currently uses smokeless tobacco Chews 05/04/2016 Marital status Unknown 01/26/2015 Number of children Unknown 3 01/26/2015 Employment Unknown Retired 01/26/[address]: 157922425 Never drinks alcohol quit in July 2014 [...] Fill Instructions oxycodone 20 mg tablet RxNorm: 7609287 1/2 Tablet(s) PO Q6 as needed 10/14/2018 11/12/2018 Active Keflex 500 mg capsule RxNorm: 228263 1 Capsule(s) PO TID 201810/19/2018 Active potassium chloride ER 10 mEq tablet,extended release RxNorm: 948114 1 Tablet(s) PO daily 10/10/2018 11/08/2018 Active Lasix 20 mg tablet RxNorm: 289350 1 Tablet(s) PO BID 201804/07/2019 Active albuterol sulfate 2.5 mg/3 mL (0.083 %) solution for nebulization RxNorm: 297573 1 Milliliter(s) INH TID DX J44.9 10/04/2018 01/31/2019 Active gabapentin 100 mg capsule RxNorm: 031267 TAKE ONE CAPSULE BY MOUTH IN THE EVENING AT 5PM 09/24/2018 03/22/2019 Active oxycodone 20 mg tablet RxNorm: 0376574 1/2 Tablet(s) PO Q6 as needed 09/12/2018 10/11/2018 Inactive oxycodone 20 mg tablet RxNorm: 6104434 1/2 Tablet(s) PO Q6 as needed 08/15/2018 09/11/2018 Inactive oxycodone 20 mg tablet RxNorm: 3186123 1/2 Tablet(s) PO Q6 as needed 07/16/2018 08/14/2018 Inactive oxycodone 20 mg tablet RxNorm: 2996950 1/2 Tablet(s) PO Q6 as needed 06/14/2018 07/13/2018 Inactive gabapentin 100 mg capsule RxNorm: 000806 TAKE ONE CAPSULE BY MOUTH IN THE EVENING AT 5PM 05/30/2018 09/23/2018 Inactive oxycodone 20 mg tablet RxNorm: 5228191 1/2 Tablet(s) PO Q6 as needed 05/15/2018 06/13/2018 Inactive oxycodone 20 mg tablet RxNorm: 1310160 1/2 Tablet(s) PO Q6 as needed 04/12/2018 05/11/2018 Inactive oxycodone 20 mg tablet RxNorm: 1794361 1/2 Tablet(s) PO Q6 as needed 03/11/2018 04/09/2018 Inactive levothyroxine 200 mcg tablet RxNorm: 426793 1 Tablet(s) PO daily 02/21/2018 02/15/2019 Active Cipro 500 mg tablet RxNorm: 043439 1 Tablet(s) PO BID 201702/20/2018 Inactive levothyroxine 200 mcg tablet RxNorm: 205286 1 Tablet(s) PO daily 02/21/2018 02/20/2018 Inactive Cipro 500 mg tablet RxNorm: 394927 1 Tablet(s) PO BID 201703/02/2018 Inactive oxycodone 20 mg tablet RxNorm: 2778826 1/2 Tablet(s) PO Q6 as needed 02/12/2018 03/10/2018 Inactive oxycodone 20 mg tablet RxNorm: 0726117 1/2 Tablet(s) PO Q6 as needed 01/16/2018 02/11/2018 Inactive gabapentin 100 mg capsule RxNorm: 824139 TAKE ONE CAPSULE BY MOUTH IN THE EVENING AT 5PM 01/15/2018 05/29/2018 Inactive bisoprolol 5 mg-hydrochlorothiazide 6.25 mg tablet RxNorm: 963525 TAKE ONE TABLET BY MOUTH DAILY 01/01/2018 12/26/2018 Active oxycodone 20 mg tablet RxNorm: 4726585 1/2 Tablet(s) PO Q6 as needed 12/20/2017 01/14/2018 Inactive oxycodone 20 mg tablet RxNorm: 8607937 1/2 Tablet(s) PO Q6 as needed 11/20/2017 12/19/2017 Inactive Victoza 2-Dino 0.6 mg/0.1 mL (18 mg/3 mL) subcutaneous pen injector RxNorm: 052151 1.2 Milligram(s) SQ daily 11/08/201712/07 Inactive oxycodone 20 mg tablet RxNorm: 3869237 1/2 Tablet(s) PO Q6 as needed 10/19/2017 11/17/2017 Inactive gabapentin 100 mg capsule RxNorm: 268777 1 Capsule(s) PO QPM at 5 pm 09/20/2017 01/14/2018 Inactive Lasix 20 mg tablet RxNorm: 715099 1 Tablet(s) QAM at 5pm 12/201703/18/2018 Inactive oxycodone 20 mg tablet RxNorm: 3127458 1/2 Tablet(s) PO Q6 as needed 09/18/2017 10/17/2017 Inactive oxycodone 20 mg tablet RxNorm: 0935858 1/2 Tablet(s) PO Q6 as needed 08/14/2017 09/12/2017 Inactive ketoconazole 2 % topical cream RxNorm: 773093 1 Gram(s) TOP BID to affected area until healed 08/03/2017 No Stop Date Active oxycodone 20 mg tablet RxNorm: 0010070 1/2 Tablet(s) PO Q6 as needed 07/17/2017 08/13/2017 Inactive pen needle, diabetic 31 gauge x 5/16" RxNorm: 1 Unit Dose Miscellaneous daily 06/25/2017 03/21/2018 Inactive daily use with victoza Bactrim DS 800 mg-160 mg tablet RxNorm: 156944 1 Tablet(s) PO BID Dr Norwood 06/25/2017 07/04/2017 Inactive Victoza 2-Dino 0.6 mg/0.1 mL (18 mg/3 mL) subcutaneous pen injector RxNorm: 600963 0.6 Milligram(s) SQ daily 06/25/201707/24 Inactive doxycycline hyclate 100 mg tablet RxNorm: 311829 1 Tablet(s) PO BID Dr Norwood 06/21/2017 06/30/2017 Inactive oxycodone 20 mg tablet RxNorm: 3892688 1/2 Tablet(s) PO Q6 as needed 06/14/2017 07/13/2017 Inactive clindamycin 150 mg capsule RxNorm: 469486 1 Capsule(s) PO Q8 06/16/2017 Inactive levothyroxine 175 mcg tablet RxNorm: 218986 TAKE ONE TABLET BY MOUTH DAILY 06/04/2017 09/01/2017 Inactive levothyroxine 175 mcg tablet RxNorm: 011455 TAKE ONE TABLET BY MOUTH DAILY 06/04/2017 11/30/2017 Inactive bisoprolol 5 mg-hydrochlorothiazide 6.25 mg tablet RxNorm: 423428 TAKE ONE TABLET BY MOUTH DAILY 05/24/2017 11/19/2017 Inactive oxycodone 20 mg tablet RxNorm: 9949687 1/2 Tablet(s) PO Q6 as needed 05/14/2017 06/12/2017 Inactive potassium chloride ER 10 mEq capsule,extended release RxNorm: 602264 TAKE ONE CAPSULE BY MOUTH DAILY NEEDED FOR 5 DAYS THEN NEEDED WITH LASIX 04/17/2017 10/13/2017 Inactive Lasix 20 mg tablet RxNorm: 767014 TAKE ONE TABLET BY MOUTH DAILY NEEDED 04/17/2017 09/19/2017 Inactive oxycodone 20 mg tablet RxNorm: 3554221 1/2 Tablet(s) PO Q6 as needed 04/12/2017 05/11/2017 Inactive Colcrys 0.6 mg tablet RxNorm: 283402 2 tabs at onset then may repeat 1 tab in 1 hours if needed- Tablet(s) PO 04/09/2017 No Stop Date Active then take daily until gout resolved Bactrim DS 800 mg-160 mg tablet RxNorm: 009132 1 Tablet(s) PO BID 04/09/2017 04/08/2017 Inactive dc levaquin Bactrim DS 800 mg-160 mg tablet RxNorm: 099446 1 Tablet(s) PO BID 04/09/2017 04/15/2017 Inactive dc levaquin Levaquin 500 mg tablet RxNorm: 729694 1 Tablet(s) PO daily 04/02/2017 Inactive Levaquin 500 mg tablet RxNorm: 077381 1 Tablet(s) PO daily 06/06/2017 Inactive indomethacin 25 mg capsule RxNorm: 917654 1 Capsule(s) PO TID PRN 03/22/2017 03/22/2017 Inactive Lasix 20 mg tablet RxNorm: 647959 1 Tablet(s) PO QDAY PRN 02/201704/16/2017 Inactive daily x 5 days then as needed Levaquin 500 mg tablet RxNorm: 084321 1 Tablet(s) PO daily 02/201703/31/2017 Inactive potassium chloride ER 10 mEq capsule,extended release RxNorm: 565192 1 Capsule(s) PO QDAY PRN 03/22/2017 04/16/2017 Inactive daily x 5 days then as needed with lasix oxycodone 20 mg tablet RxNorm: 4541505 1/2 Tablet(s) PO Q6 as needed 03/08/2017 04/06/2017 Inactive bisoprolol 5 mg-hydrochlorothiazide 6.25 mg tablet RxNorm: 366869 TAKE ONE TABLET BY MOUTH DAILY 02/14/2017 05/14/2017 Inactive oxycodone 20 mg tablet RxNorm: 2861552 1/2 Tablet(s) PO Q6 as needed 02/08/2017 03/07/2017 Inactive oxycodone 20 mg tablet RxNorm: 9607616 1/2 Tablet(s) PO Q6 as needed 01/08/2017 02/06/2017 Inactive levothyroxine 175 mcg tablet RxNorm: 278746 1 Tablet(s) PO daily 12/06/2016 06/03/2017 Inactive [SAVINGS FOR NON-COVERED DRUGS -- BIN:[id number], PCN: ASPROD1, Group: XXXXX, ID# XXXXXXX, Questions: . THIS IS NOT INSURANCE.] oxycodone 20 mg tablet RxNorm: 3074350 1/2 Tablet(s) PO Q6 as needed 12/04/2016 01/02/2017 Inactive oxycodone 20 mg tablet RxNorm: 3696028 1/2 Tablet(s) PO Q6 as needed 11/09/2016 12/03/2016 Inactive bisoprolol 5 mg-hydrochlorothiazide 6.25 mg tablet RxNorm: 417220 TAKE ONE TABLET BY MOUTH DAILY 11/08/2016 02/05/2017 Inactive oxycodone 20 mg tablet RxNorm: 6607388 1/2 Tablet(s) PO Q6 as needed 10/05/2016 11/03/2016 Inactive oxycodone 20 mg tablet RxNorm: 1261192 1/2 Tablet(s) PO Q6 as needed 09/06/2016 10/04/2016 Inactive oxycodone 20 mg tablet RxNorm: 6970604 1/2 Tablet(s) PO Q6 as needed 08/07/2016 09/05/2016 Inactive oxycodone 20 mg tablet RxNorm: 6910544 1/2 Tablet(s) PO Q6 as needed 07/04/2016 08/06/2016 Inactive oxycodone 20 mg tablet RxNorm: 5396271 1/2 Tablet(s) PO Q6 as needed 05/29/2016 07/03/2016 Inactive levothyroxine 150 mcg tablet RxNorm: 031795 1 Tablet(s) PO daily 04/10/2016 04/09/2016 Inactive [SAVINGS FOR NON-COVERED DRUGS -- BIN:[id number], PCN: ASPROD1, Group: XXXXX, ID# XXXXXXX, Questions: . THIS IS NOT INSURANCE.] oxycodone 20 mg tablet RxNorm: 1692115 1/2 Tablet(s) PO Q6 as needed 04/10/2016 05/28/2016 Inactive levothyroxine 150 mcg tablet RxNorm: 413758 1 Tablet(s) PO daily 04/10/2016 10/06/2016 Inactive [SAVINGS FOR NON-COVERED DRUGS -- BIN:[id number], PCN: ASPROD1, Group: XXXXX, ID# XXXXXXX, Questions: . THIS IS NOT INSURANCE.] bisoprolol 5 mg-hydrochlorothiazide 6.25 mg tablet RxNorm: 393011 1 Tablet(s) PO daily 02/16/2016 12/31/2017 Inactive oxycodone 20 mg tablet RxNorm: 4535431 1/2 Tablet(s) PO Q6 as needed 02/16/2016 04/09/2016 Inactive oxycodone 20 mg tablet RxNorm: 6331020 1/2 Tablet(s) PO Q6 as needed 01/04/2016 02/15/2016 Inactive bisoprolol 5 mg-hydrochlorothiazide 6.25 mg tablet RxNorm: 799017 1 Tablet(s) PO daily 11/19/2015 01/17/2016 Inactive bisoprolol 5 mg-hydrochlorothiazide 6.25 mg tablet RxNorm: 465095 1 Tablet(s) PO daily 11/04/2015 11/18/2015 Inactive oxycodone 20 mg tablet RxNorm: 7009405 1/2 Tablet(s) PO Q6 as needed 10/27/2015 01/03/2016 Inactive levothyroxine 150 mcg tablet RxNorm: 294716 1 Tablet(s) PO daily 08/26/2015 02/21/2016 Inactive [SAVINGS FOR NON-COVERED DRUGS -- BIN:[id number], PCN: ASPROD1, Group: XXXXX, ID# XXXXXXX, Questions: . THIS IS NOT INSURANCE.] bisoprolol 5 mg-hydrochlorothiazide 6.25 mg tablet RxNorm: 288483 1 Tablet(s) PO daily 08/26/2015 10/24/2015 Inactive oxycodone 10 mg tablet RxNorm: 5885230 1 Tablet(s) PO Q6 as needed 05/06/2015 10/26/2015 Inactive levothyroxine 150 mcg tablet RxNorm: 933887 1 Tablet(s) PO daily 02/05/2015 08/03/2015 Inactive [SAVINGS FOR NON-COVERED DRUGS -- BIN:552154, PCN: ASPROD1, Group: XXXXX, ID# XXXXXXX, Questions: . THIS IS NOT INSURANCE.] Vitamin D2 50,000 unit capsule RxNorm: 244376 1 Capsule(s) PO weekly 02/05/2015 05/05/2015 Inactive [SAVINGS FOR NON-COVERED DRUGS -- BIN:795048, PCN: ASPROD1, Group: XXXXX, ID# XXXXXXX, Questions: . THIS IS NOT INSURANCE.] Vitamin D2 50,000 unit capsule RxNorm: 958757 1 Capsule(s) PO weekly 02/05/2015 02/04/2015 Inactive bisoprolol 5 mg-hydrochlorothiazide 6.25 mg tablet RxNorm: 774214 1 Tablet(s) PO daily 01/26/2015 02/24/2015 Inactive levothyroxine 200 mcg tablet RxNorm: 750133 1 Tablet(s) PO daily 01/26/2015 01/25/2015 Inactive levothyroxine 200 mcg tablet RxNorm: 801032 1 Tablet(s) PO every other day 01/26/2015 02/04/2015 Inactive [SAVINGS FOR NON-COVERED DRUGS -- BIN:320562, PCN: ASPROD1, Group: XXXXX, ID# XXXXXXX, Questions: . THIS IS NOT INSURANCE.] aspirin 81 mg chewable tablet RxNorm: 442927 1 Tablet(s) PO daily No Start Date Active Plavix 75 mg tablet RxNorm: 059318 1 Tablet(s) PO daily manage by Dr Baig No Start Date Active simvastatin 40 mg tablet RxNorm: 849533 1 Tablet(s) PO QHS managed by Dr Baig No Start Date Active Colcrys 0.6 mg tablet RxNorm: 679120 2 tabs at onset then may repeat 1 tab in 1 hours if needed- Tablet(s) PO No Start Date 04/08/2017 Inactive then take daily until gout resolved aspirin 325 mg tablet RxNorm: 969973 1 Tablet(s) PO daily No Start Date 05/03/2016 Inactive levothyroxine 75 mcg tablet RxNorm: 551337 1 Tablet(s) PO every other day No Start Date 02/04/2015 Inactive takes qod with 200mcg oxycodone 10 mg tablet RxNorm: 4249682 1 Tablet(s) PO Q6 as needed No Start Date 05/05/2015 Inactive ketoconazole 2 % topical cream RxNorm: 562738 1 Gram(s) TOP BID to affected area until healed No Start Date 08/02/2017 Inactive indomethacin oral RxNorm: 5781 oral No Start Date 03/21/2017 Inactive Medication Administered No Medication Administered data Immunizations Vaccine Codes Date Status Pneumococcal (Adult) CVX: 33 02/05/2018 completed Pneumococcal (Adult) CVX: 133 11/30/2016 completed Assessments Condition Codes Effective Dates Cellulitis of right lower limb ICD-10: L03.115 ICD-9: 682.6 10/10/2018 Localized edema ICD-10: R60.0 ICD-9: 782.3 10/10/2018 Cellulitis of left lower limb ICD-10: L03.116 ICD-9: 682.6 10/10/2018 Chronic obstructive pulmonary disease, unspecified ICD-10: J44.9 [...] Visit Effective Dates Notes lower leg pain 10/10/2018 diabetic foot exam [...] Code Item Item Code Result Date %Hba1C Qnu303 % HbA1c 73505-9 6.4 % 08/30/2018 %Hba1C Jph525 Gluc Ave 137 mg/dL 08/30/2018 Culture Urine [id number] URINE CULTURE SEE NOTES 02/22/2018 Urine Culture [...] 24.5 pg 02/20/2018 Cbc With Differential Ord2 [place]% 8.9 % 02/20/2018 Cbc With Differential Ord2 [...] 0.81 K/ul 02/20/2018 Cbc With Differential Ord2 [place] ABS# 0.7 K/ul 02/20/2018 Cbc With Differential Ord2 Eos ABS# 0.4 K/ul 02/20/2018 Cbc With Differential Ord2 Baso ABS# 0.0 K/ul 02/20/2018 %Hba1C Kvk329 % HbA1c 30219-4 7.7 % 02/20/2018 %Hba1C Wvr487 Gluc Ave 174 mg/dL 02/20/2018 Lipase Fmt653 LIPASE 17 U/L 02/20/2018 Microalbumin Fjg684 MicroAlb 6.5 mg/dL 02/20/2018 Amylase Ord34 AMYLASE 15 U/L 02/20/2018 Free T4 Uwh735 FREE T4 0.61 ng/dL 02/20/2018 Lipid Ord30 CHOL 203 mg/dL 02/20/2018 Lipid Ord30 HDL 7.0 mg/dl 02/20/2018 Lipid Ord30 TRIG 271 mg/dL 02/20/2018 Lipid Ord30 LDL 142 mg/dL 02/20/2018 Lipid Ord30 C/HDL 29.0 Ratio 02/20/2018 Comp Metabolic Raz939 NA 134 mEq/L 02/20/2018 Comp Metabolic Jgz866 K 3.6 mEq/L 02/20/2018 Comp Metabolic Ckt219 CL 96 mEq/L 02/20/2018 Comp Metabolic Uku846 CO2 29.0 mEq/L 02/20/2018 Comp Metabolic Xjp344 ANION GAP 13 02/20/2018 Comp Metabolic Hti039 GLUCOSE 165 mg/dL 02/20/2018 Comp Metabolic Jlw614 Creat 1.2 mg/dL 02/20/2018 Comp Metabolic Con572 eGFR 63 ml/min/1.73m2 02/20/2018 Comp Metabolic Jmj426 BUN 14 mg/dL 02/20/2018 Comp Metabolic Mqj434 B/C Ratio 11.6 Ratio 02/20/2018 Comp Metabolic Xtg814 CALCIUM 8.5 mg/dL 02/20/2018 Comp Metabolic Swk699 ALK PHOS 633 U/L 02/20/2018 Comp Metabolic Int887 AST(SGOT) 112 U/L 02/20/2018 Comp Metabolic Qlh707 ALT(SGPT) 148 U/L 02/20/2018 Comp Metabolic Ckj645 BILI T 6.8 mg/dL 02/20/2018 Comp Metabolic Emu900 ALBUMIN 3.3 g/dL 02/20/2018 Comp Metabolic Nek468 TPRO 5.9 g/dL 02/20/2018 Comp Metabolic Qjt572 GLOB 2.6 g/dL 02/20/2018 Comp Metabolic Wyv461 A/G Ratio 1.3 Ratio 02/20/2018 Comp Metabolic Ngl042 Osmo 272 mOsmo 02/20/2018 Total Psa Ord10 [...] Metabolic Ord15 CALCIUM 9.2 mg/dL 11/09/2017 %Hba1C Ekm599 % HbA1c 47456-5 8.0 % 11/09/2017 %Hba1C Dpb716 Gluc Ave 183 mg/dL 11/09/2017 Metabolic Ord15 [...] Ord15 CALCIUM 8.7 mg/dL 06/25/2017 Culture Wound [id number] WOUND CULTURE SEE NOTES 04/09/2017 Culture Wound [id number] Continued Results 04/09/2017 Amylase Ord34 AMYLASE 19 [...] 27.9 pg 03/22/2017 Cbc With Differential Ord2 [place]% 8.3 % 03/22/2017 Cbc With Differential Ord2 [...] 1.35 K/ul 03/22/2017 Cbc With Differential Ord2 [place] ABS# 1.4 K/ul 03/22/2017 Cbc With Differential Ord2 Eos ABS# 0.2 K/ul 03/22/2017 Cbc With Differential Ord2 Baso ABS# 0.0 K/ul 03/22/2017 Comp Metabolic Kmy392 NA 134 mEq/L 03/22/2017 Comp Metabolic Dce859 K 4.5 mEq/L 03/22/2017 Comp Metabolic Qho687 CL 93 mEq/L 03/22/2017 Comp Metabolic Pto375 CO2 31.0 mEq/L 03/22/2017 Comp Metabolic Xad141 ANION GAP 15 03/22/2017 Comp Metabolic Byw452 GLUCOSE 198 mg/dL 03/22/2017 Comp Metabolic Bkv354 Creat 1.5 mg/dL 03/22/2017 Comp Metabolic Lva208 eGFR 50 ml/min/1.73m2 03/22/2017 Comp Metabolic Fxh493 BUN 32 mg/dL 03/22/2017 Comp Metabolic Vvk943 B/C Ratio 21.6 Ratio 03/22/2017 Comp Metabolic Ioz335 CALCIUM 8.4 mg/dL 03/22/2017 Comp Metabolic Nyu077 ALK PHOS 245 U/L 03/22/2017 Comp Metabolic Mex722 AST(SGOT) 18 U/L 03/22/2017 Comp Metabolic Seb343 ALT(SGPT) 17 U/L 03/22/2017 Comp Metabolic Wed700 BILI T 0.8 mg/dL 03/22/2017 Comp Metabolic Uku082 ALBUMIN 2.9 g/dL 03/22/2017 Comp Metabolic Xax241 TPRO 6.3 g/dL 03/22/2017 Comp Metabolic Nrh719 GLOB 3.4 g/dL 03/22/2017 Comp Metabolic Aoc002 A/G Ratio 0.8 Ratio 03/22/2017 Comp Metabolic Mom938 Osmo 281 mOsmo 03/22/2017 Lipase Jax046 LIPASE 12 U/L 03/22/2017 Comp Metabolic Qon076 NA 142 mEq/L 03/09/2017 Comp Metabolic Ryc779 K 4.8 mEq/L 03/09/2017 Comp Metabolic Pbm140 CL 103 mEq/L 03/09/2017 Comp Metabolic Fuo298 CO2 30.0 mEq/L 03/09/2017 Comp Metabolic Ffh620 ANION GAP 14 03/09/2017 Comp Metabolic Vte668 GLUCOSE 152 mg/dL 03/09/2017 Comp Metabolic Tjg016 Creat 1.3 mg/dL 03/09/2017 Comp Metabolic Jss246 eGFR 56 ml/min/1.73m2 03/09/2017 Comp Metabolic Kxy746 BUN 23 mg/dL 03/09/2017 Comp Metabolic Kmu934 B/C Ratio 17.3 Ratio 03/09/2017 Comp Metabolic Qoq078 CALCIUM 8.5 mg/dL 03/09/2017 Comp Metabolic Xel152 ALK PHOS 97 U/L 03/09/2017 Comp Metabolic Jqy580 AST(SGOT) 10 U/L 03/09/2017 Comp Metabolic Swc901 ALT(SGPT) 6 U/L 03/09/2017 Comp Metabolic Yte915 BILI T 0.4 mg/dL 03/09/2017 Comp Metabolic Rck517 ALBUMIN 3.4 g/dL 03/09/2017 Comp Metabolic Ejo350 TPRO 6.2 g/dL 03/09/2017 Comp Metabolic Ftc523 GLOB 2.8 g/dL 03/09/2017 Comp Metabolic Wuy876 A/G Ratio 1.2 Ratio 03/09/2017 Comp Metabolic Wck875 Osmo 290 mOsmo 03/09/2017 Free T4 Foo581 FREE T4 0.86 ng/dL 03/08/2017 Cbc With [...] 28.2 pg 03/08/2017 Cbc With Differential Ord2 [place]% 8.7 % 03/08/2017 Cbc With Differential Ord2 [...] 1.63 K/ul 03/08/2017 Cbc With Differential Ord2 [place] ABS# 0.9 K/ul 03/08/2017 Cbc With Differential Ord2 Eos ABS# 0.5 K/ul 03/08/2017 Cbc With Differential Ord2 Baso ABS# 0.0 K/ul 03/08/2017 Tsh Ord6 hTSH II 4.52 uIU/mL 03/08/2017 %Hba1C Yjc250 % HbA1c 55592-9 8.5 % 03/08/2017 %Hba1C Llo813 Gluc Ave 197 mg/dL 03/08/2017 %Hba1C Esm943 % HbA1c 51651-9 9.8 % 12/04/2016 %Hba1C Kxb533 Gluc Ave 235 mg/dL 12/04/2016 Tsh Ord6 hTSH II 10.65 uIU/mL 11/30/2016 Comp Metabolic Xzs463 NA 134 mEq/L 11/30/2016 Comp Metabolic Mlr919 K 5.0 mEq/L 11/30/2016 Comp Metabolic Bvs749 CL 95 mEq/L 11/30/2016 Comp Metabolic Oie617 CO2 34.0 mEq/L 11/30/2016 Comp Metabolic Rra013 ANION GAP 10 11/30/2016 Comp Metabolic Vmf954 GLUCOSE 226 mg/dL 11/30/2016 Comp Metabolic Moj007 Creat 1.3 mg/dL 11/30/2016 Comp Metabolic Clw946 eGFR 56 ml/min/1.73m2 11/30/2016 Comp Metabolic Edg682 BUN 21 mg/dL 11/30/2016 Comp Metabolic Mwh669 B/C Ratio 15.7 Ratio 11/30/2016 Comp Metabolic Vfp155 CALCIUM 8.9 mg/dL 11/30/2016 Comp Metabolic Lnx516 ALK PHOS 112 U/L 11/30/2016 Comp Metabolic Csj893 AST(SGOT) 9 U/L 11/30/2016 Comp Metabolic Jdw053 ALT(SGPT) 7 U/L 11/30/2016 Comp Metabolic Rcw838 BILI T 0.6 mg/dL 11/30/2016 Comp Metabolic Tei539 ALBUMIN 3.6 g/dL 11/30/2016 Comp Metabolic Kah414 TPRO 6.4 g/dL 11/30/2016 Comp Metabolic Czf996 GLOB 2.9 g/dL 11/30/2016 Comp Metabolic Rfr898 A/G Ratio 1.2 Ratio 11/30/2016 Comp Metabolic Wso409 Osmo 278 mOsmo 11/30/2016 Lipid Ord30 CHOL [...] 13.0 % 11/30/2016 Cbc With Differential Ord2 [place]% 7.9 % 11/30/2016 Cbc With Differential Ord2 [...] 1.34 K/ul 11/30/2016 Cbc With Differential Ord2 [place] ABS# 0.8 K/ul 11/30/2016 Cbc With Differential Ord2 Eos ABS# 0.3 K/ul 11/30/2016 Cbc With Differential Ord2 Baso ABS# 0.0 K/ul 11/30/2016 Free T4 Hpk294 FREE T4 0.89 ng/dL 11/30/2016 Review of [...] pitting 11/08/2017 2+ Full Exam - General 1995 Cardiovascular auscultation of heart Overall: regular rate [...] Codes Date ADMIN PNEUMOCOCCAL VACCINE SNOMED CT: 00603068 CPT-4: G0009 02/05/2018 Pneumococcal Polysaccharide Vaccine, 23-Valent, Ad CPT-4: 85108 02/05/2018 PPPS, SUBSEQ VISIT CPT -4: G0439 11/30/2017 URINALYSIS NONAUTO W/O SCOPE CPT-4: 06282 03/22/2017 URINALYSIS NONAUTO W/O SCOPE CPT-4: 24273 03/21/2017 PPPS, SUBSEQ VISIT CPT -4: G0439 11/30/2016 PNEUMOCOCCAL VACC 13 JAVIER IM Formatting Model/CDA Sections, Assigned to SNOMED CT: 43760761 CPT-4: 70304Hneedre 11/30/2016 ADMIN PNEUMOCOCCAL VACCINE SNOMED CT: 55632801 CPT-4: G0009 11/30/2016 Vital Signs Date Vital 10/10/2018 Blood Pressure 1: 126/70 Code : 8480-6 BMI: 34.7 Code : 49669-2 Heart Rate 1 : 80 bpm Height: 5'10" SpO2: 96% Temperature: 37.1 (C) / 98.7 (F) Weight: 242 lbs 10/04/2018 Blood Pressure 1: 120/70 Code : 8480-6 Height: 5'10" SpO2: 96% 08/29/2018 Blood Pressure 1: 104/60 Code : 8480-6 BMI: 34.6 Code : 82417-3 Heart Rate 1 : 68 bpm Height: 5'10" SpO2: 98% Weight: 241 lbs 02/25/2018 Blood Pressure 1: 120/70 Code : 8480-6 BMI: 37.0 Code : 16190-9 Heart Rate 1 : 51 bpm Height: 5'10" SpO2: 97% Weight: 258 lbs 02/20/2018 Blood Pressure 1: 124/70 Code : 8480-6 BMI: 38.0 Code : 53597-9 Heart Rate 1 : 60 bpm Height: 5'10" SpO2: 96% Weight: 265 lbs 02/05/2018 Blood Pressure 1: 116/ Code : 8480-6 BMI: 38.0 Code : 85544-6 Heart Rate 1 : 63 bpm Height: 5'10" SpO2: 98% Weight: 265 lbs 11/30/2017 Blood Pressure 1: 132/60 Code : 8480-6 BMI: 37.0 Code : 33159-4 Heart Rate 1 : 100 bpm Height: 5'10 " SpO2: 96% Waist Measure (cm): 122 cm Weight: 258 lbs 11/08/2017 Blood Pressure 1: 126/64 Code : 8480-6 BMI: 37.2 Code : 21171-9 Heart Rate 1 : 92 bpm Height: 5'10" SpO2: 94% Weight: 259 lbs 09/20/2017 Blood Pressure 1: 122/68 Code : 8480-6 BMI: 36.9 Code : 89169-1 Heart Rate 1 : 57 bpm Height: 5'10" SpO2: 96% Weight: 257 lbs 06/25/2017 Blood Pressure 1: 124/68 Code : 8480-6 BMI: 37.0 Code : 82191-1 Height: 5'10 " Weight: 258 lbs 06/07/2017 Blood Pressure 1: 122/64 Code : 8480-6 BMI: 37.0 Code : 80907-8 Heart Rate 1 : 60 bpm Height: 5'10" SpO2: 94% Temperature: 36.4 (C) / 97.6 (F) Weight: 258 lbs 05/03/2017 Blood Pressure 1: 118/74 Code : 8480-6 BMI: 38.2 Code : 79929-1 Heart Rate 1 : 52 bpm Height: 5'10" SpO2: 98% Weight: 266 lbs 04/02/2017 Blood Pressure 1: 118/62 Code : 8480-6 BMI: 38.2 Code : 39373-9 Heart Rate 1 : 53 bpm Height: 5'10" SpO2: 93% Weight: 266 lbs 03/26/2017 Blood Pressure 1: 114/62 Code : 8480-6 BMI: 38.3 Code : 00737-6 Height: 5'10 " Weight: 267 lbs 03/22/2017 Blood Pressure 1: 122/64 Code : 8480-6 BMI: 40.0 Code : 86081-9 Heart Rate 1 : 52 bpm Height: 5'10" SpO2: 94% Weight: 279 lbs 03/08/2017 Blood Pressure 1: 124/70 Code : 8480-6 BMI: 39.4 Code : 90741-2 Heart Rate 1 : 51 bpm Height: 5'10" SpO2: 94% Weight: 274 lbs 8 oz 12/06/2016 Blood Pressure 1: 12662 Code : 8480-6 BMI: 40.3 Code : 50916-3 Heart Rate 1 : 50 bpm Height: 5'10" SpO2: 94% Weight: 281 lbs 11/30/2016 Blood Pressure 1: 112 Code : 8480-6 BMI: 40.3 Code : 97068-3 Heart Rate 1 : 52 bpm Height: 5'10" SpO2: 93% Waist Measure (cm): 135 cm Weight: 281 lbs 11/28/2016 Blood Pressure 1: 132/72 Code : 8480-6 BMI: 40.3 Code : 43932-2 Heart Rate 1 : 50 bpm Height: 5'10" Weight: 281 lbs 05/04/2016 Blood Pressure 1: 128/78 Code : 8480-6 BMI: 38.5 Code : 39693-1 Heart Rate 1 : 74 bpm Height: 5'10" SpO2: 98% Weight: 268 lbs 8 oz 11/04/2015 Blood Pressure 1: 136/60 Code : 8480-6 BMI: 38.0 Code : 71764-5 Heart Rate 1 : 55 bpm Height: 5'10" SpO2: 94% Weight: 265 lbs 07/30/2015 Blood Pressure 1: 128/74 Code : 8480-6 BMI: 38.0 Code : 86956-2 Heart Rate 1 : 47 bpm Height: 5'10" SpO2: 97% Weight: 265 lbs 01/26/2015 Blood Pressure 1: 122/64 Code : 8480-6 BMI: 34.0 Code : 41290-3 Heart Rate 1 : 68 bpm Height: 5'10" Weight: 237 lbs Functional Status No Functional Status data History of Present Illness Symptom Name Status Result Effective Date Notes Location on the left 10/10/2018 None Location [...] data Encounters Encounter Performer Location Codes Date 00807 EST. PATIENT, LEVEL III Diagnosis: Localized edema[ICD10: R60.0] Diagnosis: Cellulitis of left lower limb[ICD10: L03.116] Diagnosis: Cellulitis of right lower limb[ICD10: L03.115] [facility] CPT-4: 28381 10/10/2018 ([id number]) 14450 EST. PATIENT, LEVEL IV Diagnosis: Type 2 diabetes mellitus with foot ulcer[ICD10: E11.621] Diagnosis: Essential (primary) hypertension[ICD10: I10] Diagnosis: Malignant neoplasm of prostate[ICD10: C61] Diagnosis: Chronic obstructive pulmonary disease, unspecified[ICD10: J44.9] Diagnosis: Hypoxemia[ICD10: R09.02] Sarah Sanchez MD, [facility] CPT-4: 42966 10/04/2018 ([id number]) 27660 EST. PATIENT, LEVEL IV Diagnosis: Type 2 diabetes mellitus with hyperglycemia[ICD10: E11.65] Diagnosis: Essential (primary) hypertension[ICD10: I10] Diagnosis: Malignant neoplasm of prostate[ICD10: C61] Sarah Sanchez MD, [facility] CPT-4: 29548 08/29/2018 ([id number]) [id number] EST. PATIENT, LEVEL IV Diagnosis: Malignant neoplasm of prostate[ICD10: C61] Dorene Sanchez MD, [facility] CPT-4: 90115 02/25/2018 11776 EST. PATIENT, LEVEL IV Diagnosis: Generalized abdominal pain[ICD10: R10.84] Diagnosis: Unspecified jaundice[ICD10: R17] Diagnosis: Gross hematuria[ICD10: R31.0] Kiki Sanchez MD, [facility] CPT-4 : 08830 02/20/2018 ([id number]) 69714 EST. PATIENT, LEVEL IV Diagnosis: Type 2 diabetes mellitus with hyperglycemia[ICD10: E11.65] Diagnosis: Essential (primary) hypertension[ICD10: I10] Diagnosis: Chronic kidney disease, stage 3 (moderate)[ICD10: N18.3] Diagnosis: Chronic pain syndrome[ICD10: G89.4] Diagnosis: Other specified hypothyroidism[ICD10: E03.8] Diagnosis: Encounter for screening for malignant neoplasm of prostate[ICD10: Z12.5] Diagnosis: Encounter for immunization[ICD10: Z23] Sarah Sanchez MD, [facility] CPT-4: 29860 02/05/2018 ([id number]) 79105 EST. PATIENT, LEVEL IV Diagnosis: Type 2 diabetes mellitus with hyperglycemia[ICD10: E11.65] Diagnosis: Essential (primary) hypertension[ICD10: I10] Dorene Sanchez MD, [facility] CPT-4: 87755 11/08/2017 ([id number]) 23423 EST. PATIENT, LEVEL IV Diagnosis: Type 2 diabetes mellitus with hyperglycemia[ICD10: E11.65] Diagnosis: Chronic pain syndrome[ICD10: G89.4] Diagnosis: Essential (primary) hypertension[ICD10: I10] Diagnosis: Chronic kidney disease, stage 3 (moderate)[ICD10: N18.3] Diagnosis: Localized edema[ICD10: R60.0] Dorene Sanchez MD, [facility] CPT- 4: 54271 09/20/2017 ([id number]) 38506 EST. PATIENT, LEVEL III Diagnosis: Type 2 diabetes mellitus with hyperglycemia[ICD10: E11.65] Sarah Sanchez MD, [facility] CPT-4: 93639 06/25/2017 ([id number]) 76023 EST. PATIENT, LEVEL III Diagnosis: Cellulitis of left lower limb[ICD10: L03.116] Sarah Sanchez MD, [facility] CPT-4: 46402 06/07/2017 ([id number]) 95323 EST. PATIENT, LEVEL III Diagnosis: Localized edema[ICD10: R60.0] Diagnosis: Type 2 diabetes mellitus with foot ulcer[ICD10: E11.621] Sarah Sanchez MD [facility] CPT-4: 40535 05/03/2017 ([id number]) 81777 EST. PATIENT, LEVEL III Diagnosis: Cellulitis of left lower limb[ICD10: L03.116] Diagnosis: Localized edema[ICD10: R60.0] Sarah Sanchez MD, [facility] CPT-4: 91124 04/02/2017 ([id number]) Miscellaneous no charge Diagnosis: Localized edema[ICD10: R60.0] Diagnosis: Cellulitis of left lower limb[ICD10: L03.116] Sarah Sanchez MD, [facility] CPT-4: 51271 03/26/2017 ([id number]) 23918 EST. 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 CPT-4: 09259 03/22/2017 ([id number]) 40710 EST. PATIENT, LEVEL IV Diagnosis: Type 2 diabetes mellitus with hyperglycemia[ICD10: E11.65] Diagnosis: Other specified hypothyroidism[ICD10: E03.8] Diagnosis: Essential (primary) hypertension[ICD10: I10] Sarah Sanchez MD, [facility] CPT-4: 02881 03/08/2017 ([id number]) 26809 EST. PATIENT, LEVEL III Diagnosis: Type 2 diabetes mellitus with hyperglycemia[ICD10: E11.65] Diagnosis: Other specified hypothyroidism[ICD10: E03.8] Sarah Sanchez MD, [facility] CPT-4: 26806 12/06/2016 ([id number]) 52037 EST. PATIENT, LEVEL IV Diagnosis: Essential (primary) hypertension[ICD10: I10] Diagnosis: Chronic kidney disease, stage 3 (moderate)[ICD10: N18.3] Dorene Sanchez MD, [facility] CPT-4: 92660 11/28/2016 ([id number]) 38868 EST. PATIENT, LEVEL IV Diagnosis: Essential (primary) hypertension[ICD10: I10] Diagnosis: Chronic pain syndrome[ICD10: G89.4] Diagnosis: Chronic kidney disease, stage 3 (moderate)[ICD10: N18.3] Diagnosis: Vitamin B12 deficiency anemia due to intrinsic factor deficiency[ ICD10: D51.0] Diagnosis: Other specified hypothyroidism[ICD10: E03.8] Dorene Sanchez MD, [facility] CPT-4: 15478 05/04/2016 70663 EST. PATIENT, LEVEL III Diagnosis: Chronic pain syndrome[ICD10: G89.4] Diagnosis: Essential (primary) hypertension[ICD10: I10] Diagnosis: Other specified hypothyroidism[ICD10: E03.8] Kiki Sanchez MD, [facility] CPT-4: 83067 11/04/2015 95125 EST. PATIENT, LEVEL III Diagnosis: Chronic pain syndrome[ICD10: G89.4] Diagnosis: Essential (primary) hypertension[ICD10: I10] Kiki Sanchez MD, [facility] CPT-4: 66054 07/30/2015 ([id number]) OFFICE/OUTPATIENT VISIT NEW Diagnosis: ESSENTIAL HYPERTENSION[ICD9: 401.9] Diagnosis: HYPOTHYROIDISM[ICD9: 244.9] Diagnosis: ANEMIA[ICD9: 285.9] Diagnosis: Vitamin B12 deficiency[ICD9: 266.2] Diagnosis: CHRONIC PAIN SYNDROME[ICD9: 338.4] Diagnosis: Chronic renal insufficiency, stage III (moderate)[ICD9: 585.3] Diagnosis: GOUT[ICD9: 274.9] [facility] CPT-4: 11526 01/26/2015 Plan of Care Planned Activity Notes Codes Status Date Visit Plan: Dr. Sanchez in to evaluate [...] discharge. 10/10/2018 Appointment: [phone] (30 min) Complex 10/10/2018 Patient Education: Patient Medication Summary Completed 10/10/2018 Visit Plan: DM with peripheral neuropathy-paperwork completed for diabetic shoes and will fax to Dr Bauer HTN-controlled -no changes Dcjhdmeto-PBUZ-JAX-prostate cancer with mets- patient qualifies for oxygen-oxygen saturation dropped to 86% on room air during ambulation but increased to 99% on 2L NC at rest-will send orders to [facility] for continue oxygen at 2L per nasal cannula 10/04/2018 Appointment: Sarah Hernandes [phone] [phone] (30 min) Complex 10/04/2018 Patient Education: Patient [...] Dr Moreno 08/29/2018 Appointment: Sarah Hernandes WPtel: [phone] (15 min) Moderate 08/29/2018 Patient Education: Patient Medication Summary Completed 08/29/2018 Referral: Edgard Rivera MD WPtel: Via [address] with Dr. Moreno. Patient informed. Referral info faxed. Completed 02/27/2018 Visit Plan: Recurrent prostate cancer - I have recommended a referral to Dr. Rivera. We discussed the case at length today- he is not interested in extensive treatment, but if possible to extend his quantity and quality of life, he would like to try. 02/25/2018 Appointment: Dorene Sanchez WPtel[facility] (15 min) Moderate 02/25/2018 Patient Education: Patient Medication Summary Completed 02/25/2018 Care Plan: Referral Order SNOMED-CT : [id number] Pending 02/25/2018 Visit Plan: Intermittent abdominal pain, jaundice, itching - will check labs and treat as indicated - pt is to go to the ER with any acute change in symptoms or any acute concerns. 02/20/2018 Appointment: Kiki Menjivar WPtel: [facility] [place] (30 min) Complex 02/20/2018 Patient Education: [...] of control. 02/05/2018 Appointment: Sarah Hernandes [facility]Ptel[phone] [phone] (30 min) Complex 02/05/2018 Patient Education: Patient [...] care surrogate. 11/30/2017 Appointment: Sarah Hernandes [facility]el[phone] [phone] [facility] - Annual Wellness Visit 11/30/2017 [...] 1.2 11/08/2017 Appointment: Dorene Sanchez WPtel: [phone] [facility] (15 min) Moderate 11/08/2017 Patient Education: Patient [...] of over-medication. 09/20/2017 Appointment: [phone] [facility] ([facility] min) Moderate 09/20/2017 Patient Education: [...] glucose control. 06/25/2017 Appointment: Sarah Hernandes WPtel: [phone] (30 min) Complex 06/25/2017 Patient Education: Patient Medication Summary Completed 06/25/2017 Appointment: Sarah Hernandes WPtel: [facility]5 [phone] (30 min) Complex 06/22/2017 Visit Plan: Cellulitis - start oral antibiotics as previously directed, return to clinic as previously directed, call for acute change in symptoms, worsening redness, warmth, discharge. 06/07/2017 Appointment: Sarah Hernandes WPtel: [phone] (30 min) Complex 06/07/2017 Patient Education: Patient Medication Summary Completed 06/07/2017 Patient Education: Obesity Completed 06/07/2017 Appointment: Dorene Sanchez WPtel: [facility]6 [facility] (15 min) Moderate 05/31/2017 Visit Plan: Edema-significantly improved-no changes Ulcer- left lower leg and foot-seeing Dr Norwood at wound care-appt scheduled with Dr Frausto for vascular evaluation 05/03/2017 Appointment: Sarah Hernandes WPtel: [phone] (15 min) Moderate 05/03/2017 Patient Education: Patient Medication Summary Completed 05/03/2017 Patient Education: Obesity Completed 05/03/2017 Visit Plan: Oatagzjisj-adyozcvep-jgvalnh to finish abx-no further treatment indicated Edema-significantly improved-no longer weeping- continue unna boots twice weekly with home health 04/02/2017 Appointment: Sarah Hernandes WPtel: [phone] [phone] (30 min) Complex 04/02/2017 Patient Education: Patient Medication Summary Completed 04/02/2017 Patient Education: Obesity Completed 04/02/2017 Visit Plan: Cellulitis-left leg-continue levaquin Edema- increase lasix/potassium-consult [facility] for unna boots/dressing changes 03/26/2017 Appointment: Sarah Hernandes WPtel: [phone] [phone] (15 min) Moderate 03/26/2017 Patient Education: Patient [...] indomethacin-stop aleve 03/22/2017 Appointment: Sarah Hernandes [facility]Ptel: [phone] [phone] (15 min) Moderate 03/22/2017 Patient Education: Patient [...] of control. 03/08/2017 Appointment: Sarah Hernandes WPtel: [address] [place] [phone] (30 min) Complex 03/08/2017 Patient Education: Patient [...] care surrogate. 11/30/2016 Appointment: Sarah Hernandes WPtel: [address] [place] [phone] [facility] - Annual Wellness Visit 11/30/2016 [...] continue with increase in fluids. 11/28/2016 Appointment: LauraDorene WPtel: [facility] (15 min) Moderate 11/28/2016 Patient Education: [...] 01/26/2015 Referral: Edgard Rivera MD WPtel: [address] Referral Appointment Requested Instructions Comment . [...] continue with supportive care and medication monitoring. Take lasix 20mg a day twice a [...] in symptoms, worsening redness, warmth, discharge. . Chronic Pain Syndrome - pt has [...] control. increase the victoza to 1.2 . Wdgxvdnbuv-qmervjhvp-xwrtmtj to finish abx-no further treatment indicated Edema-significantly [...] b12 shots. WOUND CARE APPT ANTIBIOTIC TO [facility] . [...] YEAR SHINGLES VACCINATION TO BE ADMINISTERED AT [facility] OBTAINING MEDICAL POWER OF CONTRACT SERVICEMAN AND LIVING WILL PATIENT DOES NOT HAVE [...] YEAR SHINGLES VACCINATION TO BE ADMINISTERED AT [facility] OBTAINING MEDICAL POWER OF CONTRACT SERVICEMAN AND LIVING WILL PATIENT DOES NOT HAVE [...] AND POTASSIUM TO TWICE DAILY [facility] -WOUND CARE . Cellulitis-left leg-continue levaquin Edema-increase lasix/potassium-[facility]/dressing changes . Recurrent [...] fax to Dr Bauer HTN-controlled -no changes Njrlojfsa-HXMU-IXW-prostate cancer with mets- patient qualifies for oxygen- oxygen saturation dropped to 86% on room air during ambulation but increased to 99% on 2L NC at rest-will send orders to [facility] for continue oxygen at 2L per nasal cannula Repeat labs at next appointment . Edema-significantly improved-no changes Ulcer-left lower leg and foot-seeing Dr Norwood at wound care-appt scheduled with Dr Frausto for vascular evaluation . Intermittent abdominal pain, jaundice, itching - will check labs and treat as indicated - pt is to go to the ER with any acute change in symptoms or any acute concerns. PREVNAR 13 TODAY- GIVEN IN OFFICE PREVNAR 23 IN ONE YEAR SHINGLES VACCINATION TO BE ADMINISTERED AT [facility] OBTAINING MEDICAL POWER OF CONTRACT SERVICEMAN AND LIVING WILL PATIENT DOES NOT HAVE [...]
--- OUTSIDE RECORDS SUMMARY | 2018-11-26 11:39 | XMS REPORT | CCD ---
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 Name Role Phone PP Unavailable CCM Unavailable Summary Purpose Interface Exchange Insurance Providers Payer name Policy type / Coverage type Covered democrat ID Effective Begin Date Effective End Date WPS Medicare Part B Medicare Part B [id number] Unknown Unknown Family history Father Diagnosis Age At Onset Stroke Unknown Mother Diagnosis Age At Onset Stroke Unknown Diabetes mellitus Type 2 Unknown Social History Social History Element Codes Description Effective Dates Tobacco history SNOMED CT: 904064618 Currently uses smokeless tobacco Chews 05/04/2016 Marital status Unknown 01/26/2015 Number of children Unknown 3 01/26/2015 Employment Unknown Retired 01/26/[address]: 585312634 Never drinks alcohol quit in July 2014 [...] Fill Instructions Keflex 500 mg capsule RxNorm: 255500 1 Capsule(s) PO TID 201810/19/2018 Active potassium chloride ER 10 mEq tablet,extended release RxNorm: 330401 1 Tablet(s) PO daily 10/10/2018 11/08/2018 Active Lasix 20 mg tablet RxNorm: 088630 1 Tablet(s) PO BID 201804/07/2019 Active albuterol sulfate 2.5 mg/3 mL (0.083 %) solution for nebulization RxNorm: 995816 1 Milliliter(s) INH TID DX J44.9 10/04/2018 01/31/2019 Active gabapentin 100 mg capsule RxNorm: 974857 TAKE ONE CAPSULE BY MOUTH IN THE EVENING AT 5PM 09/24/2018 03/22/2019 Active oxycodone 20 mg tablet RxNorm: 0141438 1/2 Tablet(s) PO Q6 as needed 09/12/2018 10/11/2018 Inactive oxycodone 20 mg tablet RxNorm: 4532750 1/2 Tablet(s) PO Q6 as needed 08/15/2018 09/11/2018 Inactive oxycodone 20 mg tablet RxNorm: 7384724 1/2 Tablet(s) PO Q6 as needed 07/16/2018 08/14/2018 Inactive oxycodone 20 mg tablet RxNorm: 9036449 1/2 Tablet(s) PO Q6 as needed 06/14/2018 07/13/2018 Inactive gabapentin 100 mg capsule RxNorm: 341251 TAKE ONE CAPSULE BY MOUTH IN THE EVENING AT 5PM 05/30/2018 09/23/2018 Inactive oxycodone 20 mg tablet RxNorm: 7847293 1/2 Tablet(s) PO Q6 as needed 05/15/2018 06/13/2018 Inactive oxycodone 20 mg tablet RxNorm: 4348669 1/2 Tablet(s) PO Q6 as needed 04/12/2018 05/11/2018 Inactive oxycodone 20 mg tablet RxNorm: 5909153 1/2 Tablet(s) PO Q6 as needed 03/11/2018 04/09/2018 Inactive levothyroxine 200 mcg tablet RxNorm: 723155 1 Tablet(s) PO daily 02/21/2018 02/15/2019 Active Cipro 500 mg tablet RxNorm: 411157 1 Tablet(s) PO BID 201702/20/2018 Inactive levothyroxine 200 mcg tablet RxNorm: 199696 1 Tablet(s) PO daily 02/21/2018 02/20/2018 Inactive Cipro 500 mg tablet RxNorm: 814930 1 Tablet(s) PO BID 201703/02/2018 Inactive oxycodone 20 mg tablet RxNorm: 7976512 1/2 Tablet(s) PO Q6 as needed 02/12/2018 03/10/2018 Inactive oxycodone 20 mg tablet RxNorm: 6094710 1/2 Tablet(s) PO Q6 as needed 01/16/2018 02/11/2018 Inactive gabapentin 100 mg capsule RxNorm: 613458 TAKE ONE CAPSULE BY MOUTH IN THE EVENING AT 5PM 01/15/2018 05/29/2018 Inactive bisoprolol 5 mg-hydrochlorothiazide 6.25 mg tablet RxNorm: 611594 TAKE ONE TABLET BY MOUTH DAILY 01/01/2018 12/26/2018 Active oxycodone 20 mg tablet RxNorm: 1306202 1/2 Tablet(s) PO Q6 as needed 12/20/2017 01/14/2018 Inactive oxycodone 20 mg tablet RxNorm: 6911966 1/2 Tablet(s) PO Q6 as needed 11/20/2017 12/19/2017 Inactive Victoza 2-Dino 0.6 mg/0.1 mL (18 mg/3 mL) subcutaneous pen injector RxNorm: 463879 1.2 Milligram(s) SQ daily 11/08/201712/07 Inactive oxycodone 20 mg tablet RxNorm: 8567915 1/2 Tablet(s) PO Q6 as needed 10/19/2017 11/17/2017 Inactive gabapentin 100 mg capsule RxNorm: 696056 1 Capsule(s) PO QPM at 5 pm 09/20/2017 01/14/2018 Inactive Lasix 20 mg tablet RxNorm: 012819 1 Tablet(s) QAM at 5pm 12/201703/18/2018 Inactive oxycodone 20 mg tablet RxNorm: 3953490 1/2 Tablet(s) PO Q6 as needed 09/18/2017 10/17/2017 Inactive oxycodone 20 mg tablet RxNorm: 8400234 1/2 Tablet(s) PO Q6 as needed 08/14/2017 09/12/2017 Inactive ketoconazole 2 % topical cream RxNorm: 071078 1 Gram(s) TOP BID to affected area until healed 08/03/2017 No Stop Date Active oxycodone 20 mg tablet RxNorm: 7498001 1/2 Tablet(s) PO Q6 as needed 07/17/2017 08/13/2017 Inactive pen needle, diabetic 31 gauge x 5/16" RxNorm: 1 Unit Dose Miscellaneous daily 06/25/2017 03/21/2018 Inactive daily use with victoza Bactrim DS 800 mg-160 mg tablet RxNorm: 511962 1 Tablet(s) PO BID Dr Norwood 06/25/2017 07/04/2017 Inactive Victoza 2-Dino 0.6 mg/0.1 mL (18 mg/3 mL) subcutaneous pen injector RxNorm: 752431 0.6 Milligram(s) SQ daily 06/25/201707/24 Inactive doxycycline hyclate 100 mg tablet RxNorm: 977969 1 Tablet(s) PO BID Dr Norwood 06/21/2017 06/30/2017 Inactive oxycodone 20 mg tablet RxNorm: 2470453 1/2 Tablet(s) PO Q6 as needed 06/14/2017 07/13/2017 Inactive clindamycin 150 mg capsule RxNorm: 835144 1 Capsule(s) PO Q8 06/16/2017 Inactive levothyroxine 175 mcg tablet RxNorm: 600602 TAKE ONE TABLET BY MOUTH DAILY 06/04/2017 09/01/2017 Inactive levothyroxine 175 mcg tablet RxNorm: 107128 TAKE ONE TABLET BY MOUTH DAILY 06/04/2017 11/30/2017 Inactive bisoprolol 5 mg-hydrochlorothiazide 6.25 mg tablet RxNorm: 625057 TAKE ONE TABLET BY MOUTH DAILY 05/24/2017 11/19/2017 Inactive oxycodone 20 mg tablet RxNorm: 0468121 1/2 Tablet(s) PO Q6 as needed 05/14/2017 06/12/2017 Inactive potassium chloride ER 10 mEq capsule,extended release RxNorm: 507236 TAKE ONE CAPSULE BY MOUTH DAILY NEEDED FOR 5 DAYS THEN NEEDED WITH LASIX 04/17/2017 10/13/2017 Inactive Lasix 20 mg tablet RxNorm: 449687 TAKE ONE TABLET BY MOUTH DAILY NEEDED 04/17/2017 09/19/2017 Inactive oxycodone 20 mg tablet RxNorm: 2578494 1/2 Tablet(s) PO Q6 as needed 04/12/2017 05/11/2017 Inactive Colcrys 0.6 mg tablet RxNorm: 557733 2 tabs at onset then may repeat 1 tab in 1 hours if needed- Tablet(s) PO 04/09/2017 No Stop Date Active then take daily until gout resolved Bactrim DS 800 mg-160 mg tablet RxNorm: 319309 1 Tablet(s) PO BID 04/09/2017 04/08/2017 Inactive dc levaquin Bactrim DS 800 mg-160 mg tablet RxNorm: 274806 1 Tablet(s) PO BID 04/09/2017 04/15/2017 Inactive dc levaquin Levaquin 500 mg tablet RxNorm: 979246 1 Tablet(s) PO daily 04/02/2017 Inactive Levaquin 500 mg tablet RxNorm: 827566 1 Tablet(s) PO daily 06/06/2017 Inactive indomethacin 25 mg capsule RxNorm: 000825 1 Capsule(s) PO TID PRN 03/22/2017 03/22/2017 Inactive Lasix 20 mg tablet RxNorm: 841148 1 Tablet(s) PO QDAY PRN 02/201704/16/2017 Inactive daily x 5 days then as needed Levaquin 500 mg tablet RxNorm: 448078 1 Tablet(s) PO daily 02/201703/31/2017 Inactive potassium chloride ER 10 mEq capsule,extended release RxNorm: 113094 1 Capsule(s) PO QDAY PRN 03/22/2017 04/16/2017 Inactive daily x 5 days then as needed with lasix oxycodone 20 mg tablet RxNorm: 5580788 1/2 Tablet(s) PO Q6 as needed 03/08/2017 04/06/2017 Inactive bisoprolol 5 mg-hydrochlorothiazide 6.25 mg tablet RxNorm: 144189 TAKE ONE TABLET BY MOUTH DAILY 02/14/2017 05/14/2017 Inactive oxycodone 20 mg tablet RxNorm: 8452268 1/2 Tablet(s) PO Q6 as needed 02/08/2017 03/07/2017 Inactive oxycodone 20 mg tablet RxNorm: 5228089 1/2 Tablet(s) PO Q6 as needed 01/08/2017 02/06/2017 Inactive levothyroxine 175 mcg tablet RxNorm: 363951 1 Tablet(s) PO daily 12/06/2016 06/03/2017 Inactive [SAVINGS FOR NON-COVERED DRUGS -- BIN:[id number], PCN: ASPROD1, Group: XXXXX, ID# XXXXXXX, Questions: . THIS IS NOT INSURANCE.] oxycodone 20 mg tablet RxNorm: 5134337 1/2 Tablet(s) PO Q6 as needed 12/04/2016 01/02/2017 Inactive oxycodone 20 mg tablet RxNorm: 0703187 1/2 Tablet(s) PO Q6 as needed 11/09/2016 12/03/2016 Inactive bisoprolol 5 mg-hydrochlorothiazide 6.25 mg tablet RxNorm: 057423 TAKE ONE TABLET BY MOUTH DAILY 11/08/2016 02/05/2017 Inactive oxycodone 20 mg tablet RxNorm: 7528544 1/2 Tablet(s) PO Q6 as needed 10/05/2016 11/03/2016 Inactive oxycodone 20 mg tablet RxNorm: 8412008 1/2 Tablet(s) PO Q6 as needed 09/06/2016 10/04/2016 Inactive oxycodone 20 mg tablet RxNorm: 9907505 1/2 Tablet(s) PO Q6 as needed 08/07/2016 09/05/2016 Inactive oxycodone 20 mg tablet RxNorm: 7685339 1/2 Tablet(s) PO Q6 as needed 07/04/2016 08/06/2016 Inactive oxycodone 20 mg tablet RxNorm: 8442295 1/2 Tablet(s) PO Q6 as needed 05/29/2016 07/03/2016 Inactive levothyroxine 150 mcg tablet RxNorm: 487449 1 Tablet(s) PO daily 04/10/2016 04/09/2016 Inactive [SAVINGS FOR NON-COVERED DRUGS -- BIN:[id number], PCN: ASPROD1, Group: XXXXX, ID# XXXXXXX, Questions: . THIS IS NOT INSURANCE.] oxycodone 20 mg tablet RxNorm: 1274082 1/2 Tablet(s) PO Q6 as needed 04/10/2016 05/28/2016 Inactive levothyroxine 150 mcg tablet RxNorm: 433829 1 Tablet(s) PO daily 04/10/2016 10/06/2016 Inactive [SAVINGS FOR NON-COVERED DRUGS -- BIN:191428, PCN: ASPROD1, Group: XXXXX, ID# XXXXXXX, Questions: . THIS IS NOT INSURANCE.] bisoprolol 5 mg-hydrochlorothiazide 6.25 mg tablet RxNorm: 382297 1 Tablet(s) PO daily 02/16/2016 12/31/2017 Inactive oxycodone 20 mg tablet RxNorm: 0459389 1/2 Tablet(s) PO Q6 as needed 02/16/2016 04/09/2016 Inactive oxycodone 20 mg tablet RxNorm: 0218126 1/2 Tablet(s) PO Q6 as needed 01/04/2016 02/15/2016 Inactive bisoprolol 5 mg-hydrochlorothiazide 6.25 mg tablet RxNorm: 644239 1 Tablet(s) PO daily 11/19/2015 01/17/2016 Inactive bisoprolol 5 mg-hydrochlorothiazide 6.25 mg tablet RxNorm: 456279 1 Tablet(s) PO daily 11/04/2015 11/18/2015 Inactive oxycodone 20 mg tablet RxNorm: 2053477 1/2 Tablet(s) PO Q6 as needed 10/27/2015 01/03/2016 Inactive levothyroxine 150 mcg tablet RxNorm: 225461 1 Tablet(s) PO daily 08/26/2015 02/21/2016 Inactive [SAVINGS FOR NON-COVERED DRUGS -- BIN:[id number], PCN: ASPROD1, Group: XXXXX, ID# XXXXXXX, Questions: . THIS IS NOT INSURANCE.] bisoprolol 5 mg-hydrochlorothiazide 6.25 mg tablet RxNorm: 104731 1 Tablet(s) PO daily 08/26/2015 10/24/2015 Inactive oxycodone 10 mg tablet RxNorm: 6414380 1 Tablet(s) PO Q6 as needed 05/06/2015 10/26/2015 Inactive levothyroxine 150 mcg tablet RxNorm: 805474 1 Tablet(s) PO daily 02/05/2015 08/03/2015 Inactive [SAVINGS FOR NON-COVERED DRUGS -- BIN:825828, PCN: ASPROD1, Group: XXXXX, ID# XXXXXXX, Questions: . THIS IS NOT INSURANCE.] Vitamin D2 50,000 unit capsule RxNorm: 225419 1 Capsule(s) PO weekly 02/05/2015 05/05/2015 Inactive [SAVINGS FOR NON-COVERED DRUGS -- BIN:931095, PCN: ASPROD1, Group: XXXXX, ID# XXXXXXX, Questions: . THIS IS NOT INSURANCE.] Vitamin D2 50,000 unit capsule RxNorm: 770287 1 Capsule(s) PO weekly 02/05/2015 02/04/2015 Inactive bisoprolol 5 mg-hydrochlorothiazide 6.25 mg tablet RxNorm: 188562 1 Tablet(s) PO daily 01/26/2015 02/24/2015 Inactive levothyroxine 200 mcg tablet RxNorm: 168537 1 Tablet(s) PO daily 01/26/2015 01/25/2015 Inactive levothyroxine 200 mcg tablet RxNorm: 267926 1 Tablet(s) PO every other day 01/26/2015 02/04/2015 Inactive [SAVINGS FOR NON-COVERED DRUGS -- BIN:987120, PCN: ASPROD1, Group: XXXXX, ID# XXXXXXX, Questions: . THIS IS NOT INSURANCE.] aspirin 81 mg chewable tablet RxNorm: 377184 1 Tablet(s) PO daily No Start Date Active Plavix 75 mg tablet RxNorm: 078213 1 Tablet(s) PO daily manage by Dr Baig No Start Date Active simvastatin 40 mg tablet RxNorm: 720969 1 Tablet(s) PO QHS managed by Dr Baig No Start Date Active Colcrys 0.6 mg tablet RxNorm: 968575 2 tabs at onset then may repeat 1 tab in 1 hours if needed- Tablet(s) PO No Start Date 04/08/2017 Inactive then take daily until gout resolved aspirin 325 mg tablet RxNorm: 844355 1 Tablet(s) PO daily No Start Date 05/03/2016 Inactive levothyroxine 75 mcg tablet RxNorm: 686435 1 Tablet(s) PO every other day No Start Date 02/04/2015 Inactive takes qod with 200mcg oxycodone 10 mg tablet RxNorm: 7458042 1 Tablet(s) PO Q6 as needed No Start Date 05/05/2015 Inactive ketoconazole 2 % topical cream RxNorm: 000871 1 Gram(s) TOP BID to affected area [...] Code Item Item Code Result Date %Hba1C Qcy537 % HbA1c 02430-8 6.4 % 08/30/2018 %Hba1C Kso804 Gluc Ave 137 mg/dL 08/30/2018 Culture Urine [id number] URINE CULTURE SEE NOTES 02/22/2018 Urine Culture [...] 24.5 pg 02/20/2018 Cbc With Differential Ord2 [place]% 8.9 % 02/20/2018 Cbc With Differential Ord2 [...] 0.81 K/ul 02/20/2018 Cbc With Differential Ord2 [place] ABS# 0.7 K/ul 02/20/2018 Cbc With Differential Ord2 Eos ABS# 0.4 K/ul 02/20/2018 Cbc With Differential Ord2 Baso ABS# 0.0 K/ul 02/20/2018 %Hba1C Tbq481 % HbA1c 24443-9 7.7 % 02/20/2018 %Hba1C Wqj058 Gluc Ave 174 mg/dL 02/20/2018 Lipase Dnu403 LIPASE 17 U/L 02/20/2018 Microalbumin Irf135 MicroAlb 6.5 mg/dL 02/20/2018 Amylase Ord34 AMYLASE 15 U/L 02/20/2018 Free T4 Ruh670 FREE T4 0.61 ng/dL 02/20/2018 Lipid Ord30 CHOL 203 mg/dL 02/20/2018 Lipid Ord30 HDL 7.0 mg/dl 02/20/2018 Lipid Ord30 TRIG 271 mg/dL 02/20/2018 Lipid Ord30 LDL 142 mg/dL 02/20/2018 Lipid Ord30 C/HDL 29.0 Ratio 02/20/2018 Comp Metabolic Rbb572 NA 134 mEq/L 02/20/2018 Comp Metabolic Ulm424 K 3.6 mEq/L 02/20/2018 Comp Metabolic Ore544 CL 96 mEq/L 02/20/2018 Comp Metabolic Efb642 CO2 29.0 mEq/L 02/20/2018 Comp Metabolic Ufn271 ANION GAP 13 02/20/2018 Comp Metabolic Twd604 GLUCOSE 165 mg/dL 02/20/2018 Comp Metabolic Csu594 Creat 1.2 mg/dL 02/20/2018 Comp Metabolic Ezk379 eGFR 63 ml/min/1.73m2 02/20/2018 Comp Metabolic Gxw249 BUN 14 mg/dL 02/20/2018 Comp Metabolic Gik025 B/C Ratio 11.6 Ratio 02/20/2018 Comp Metabolic Raf258 CALCIUM 8.5 mg/dL 02/20/2018 Comp Metabolic Wrl466 ALK PHOS 633 U/L 02/20/2018 Comp Metabolic Tnw798 AST(SGOT) 112 U/L 02/20/2018 Comp Metabolic Sao201 ALT(SGPT) 148 U/L 02/20/2018 Comp Metabolic Twd852 BILI T 6.8 mg/dL 02/20/2018 Comp Metabolic Mhf491 ALBUMIN 3.3 g/dL 02/20/2018 Comp Metabolic Ppo973 TPRO 5.9 g/dL 02/20/2018 Comp Metabolic Joa823 GLOB 2.6 g/dL 02/20/2018 Comp Metabolic Anh798 A/G Ratio 1.3 Ratio 02/20/2018 Comp Metabolic Gei417 Osmo 272 mOsmo 02/20/2018 Total Psa Ord10 [...] Metabolic Ord15 CALCIUM 9.2 mg/dL 11/09/2017 %Hba1C Tqn047 % HbA1c 72173-8 8.0 % 11/09/2017 %Hba1C Hkt053 Gluc Ave 183 mg/dL 11/09/2017 Metabolic Ord15 [...] Ord15 CALCIUM 8.7 mg/dL 06/25/2017 Culture Wound [id number] WOUND CULTURE SEE NOTES 04/09/2017 Culture Wound [id number] Continued Results 04/09/2017 Amylase Ord34 AMYLASE 19 [...] 27.9 pg 03/22/2017 Cbc With Differential Ord2 [place]% 8.3 % 03/22/2017 Cbc With Differential Ord2 [...] 1.35 K/ul 03/22/2017 Cbc With Differential Ord2 [place] ABS# 1.4 K/ul 03/22/2017 Cbc With Differential Ord2 Eos ABS# 0.2 K/ul 03/22/2017 Cbc With Differential Ord2 Baso ABS# 0.0 K/ul 03/22/2017 Comp Metabolic Fod472 NA 134 mEq/L 03/22/2017 Comp Metabolic Caf381 K 4.5 mEq/L 03/22/2017 Comp Metabolic Tqk123 CL 93 mEq/L 03/22/2017 Comp Metabolic Noa187 CO2 31.0 mEq/L 03/22/2017 Comp Metabolic Ywf945 ANION GAP 15 03/22/2017 Comp Metabolic Zup780 GLUCOSE 198 mg/dL 03/22/2017 Comp Metabolic Bac638 Creat 1.5 mg/dL 03/22/2017 Comp Metabolic Khe260 eGFR 50 ml/min/1.73m2 03/22/2017 Comp Metabolic Tux112 BUN 32 mg/dL 03/22/2017 Comp Metabolic Slr087 B/C Ratio 21.6 Ratio 03/22/2017 Comp Metabolic Bpg253 CALCIUM 8.4 mg/dL 03/22/2017 Comp Metabolic Pxk973 ALK PHOS 245 U/L 03/22/2017 Comp Metabolic Jqq593 AST(SGOT) 18 U/L 03/22/2017 Comp Metabolic Osw996 ALT(SGPT) 17 U/L 03/22/2017 Comp Metabolic Dxi855 BILI T 0.8 mg/dL 03/22/2017 Comp Metabolic Pol541 ALBUMIN 2.9 g/dL 03/22/2017 Comp Metabolic Rgd012 TPRO 6.3 g/dL 03/22/2017 Comp Metabolic Bcp730 GLOB 3.4 g/dL 03/22/2017 Comp Metabolic Lyz477 A/G Ratio 0.8 Ratio 03/22/2017 Comp Metabolic Vur263 Osmo 281 mOsmo 03/22/2017 Lipase Qmr100 LIPASE 12 U/L 03/22/2017 Comp Metabolic Cix550 NA 142 mEq/L 03/09/2017 Comp Metabolic Zhi171 K 4.8 mEq/L 03/09/2017 Comp Metabolic Dbc502 CL 103 mEq/L 03/09/2017 Comp Metabolic Lrh322 CO2 30.0 mEq/L 03/09/2017 Comp Metabolic Ocd269 ANION GAP 14 03/09/2017 Comp Metabolic Urh122 GLUCOSE 152 mg/dL 03/09/2017 Comp Metabolic Pmo626 Creat 1.3 mg/dL 03/09/2017 Comp Metabolic Nyh042 eGFR 56 ml/min/1.73m2 03/09/2017 Comp Metabolic Ihl262 BUN 23 mg/dL 03/09/2017 Comp Metabolic Dwr275 B/C Ratio 17.3 Ratio 03/09/2017 Comp Metabolic Fub888 CALCIUM 8.5 mg/dL 03/09/2017 Comp Metabolic Wql136 ALK PHOS 97 U/L 03/09/2017 Comp Metabolic Glo245 AST(SGOT) 10 U/L 03/09/2017 Comp Metabolic Opu764 ALT(SGPT) 6 U/L 03/09/2017 Comp Metabolic Cxg429 BILI T 0.4 mg/dL 03/09/2017 Comp Metabolic Byk968 ALBUMIN 3.4 g/dL 03/09/2017 Comp Metabolic Rjv864 TPRO 6.2 g/dL 03/09/2017 Comp Metabolic Fga568 GLOB 2.8 g/dL 03/09/2017 Comp Metabolic Cyl663 A/G Ratio 1.2 Ratio 03/09/2017 Comp Metabolic Vxc200 Osmo 290 mOsmo 03/09/2017 Free T4 Ewm582 FREE T4 0.86 ng/dL 03/08/2017 Cbc With [...] 28.2 pg 03/08/2017 Cbc With Differential Ord2 [place]% 8.7 % 03/08/2017 Cbc With Differential Ord2 [...] 1.63 K/ul 03/08/2017 Cbc With Differential Ord2 [place] ABS# 0.9 K/ul 03/08/2017 Cbc With Differential Ord2 Eos ABS# 0.5 K/ul 03/08/2017 Cbc With Differential Ord2 Baso ABS# 0.0 K/ul 03/08/2017 Tsh Ord6 hTSH II 4.52 uIU/mL 03/08/2017 %Hba1C Axd809 % HbA1c 28868-7 8.5 % 03/08/2017 %Hba1C Xsb366 Gluc Ave 197 mg/dL 03/08/2017 %Hba1C Hzg372 % HbA1c 41174-4 9.8 % 12/04/2016 %Hba1C Rav450 Gluc Ave 235 mg/dL 12/04/2016 Tsh Ord6 hTSH II 10.65 uIU/mL 11/30/2016 Comp Metabolic Doy325 NA 134 mEq/L 11/30/2016 Comp Metabolic Snd444 K 5.0 mEq/L 11/30/2016 Comp Metabolic Xvi639 CL 95 mEq/L 11/30/2016 Comp Metabolic Kpx349 CO2 34.0 mEq/L 11/30/2016 Comp Metabolic Qgm796 ANION GAP 10 11/30/2016 Comp Metabolic Qyv720 GLUCOSE 226 mg/dL 11/30/2016 Comp Metabolic Yci393 Creat 1.3 mg/dL 11/30/2016 Comp Metabolic Jnl662 eGFR 56 ml/min/1.73m2 11/30/2016 Comp Metabolic Cdb772 BUN 21 mg/dL 11/30/2016 Comp Metabolic Was215 B/C Ratio 15.7 Ratio 11/30/2016 Comp Metabolic Eyg266 CALCIUM 8.9 mg/dL 11/30/2016 Comp Metabolic Jzj092 ALK PHOS 112 U/L 11/30/2016 Comp Metabolic Ukp099 AST(SGOT) 9 U/L 11/30/2016 Comp Metabolic Zge759 ALT(SGPT) 7 U/L 11/30/2016 Comp Metabolic Kli876 BILI T 0.6 mg/dL 11/30/2016 Comp Metabolic Jnq148 ALBUMIN 3.6 g/dL 11/30/2016 Comp Metabolic Emc021 TPRO 6.4 g/dL 11/30/2016 Comp Metabolic Fxz903 GLOB 2.9 g/dL 11/30/2016 Comp Metabolic Qph979 A/G Ratio 1.2 Ratio 11/30/2016 Comp Metabolic Mjz135 Osmo 278 mOsmo 11/30/2016 Lipid Ord30 CHOL [...] 30.6 pg 11/30/2016 Cbc With Differential Ord2 [place]% 7.9 % 11/30/2016 Cbc With Differential Ord2 [...] 1.34 K/ul 11/30/2016 Cbc With Differential Ord2 [place] ABS# 0.8 K/ul 11/30/2016 Cbc With Differential Ord2 Eos ABS# 0.3 K/ul 11/30/2016 Cbc With Differential Ord2 Baso ABS# 0.0 K/ul 11/30/2016 Free T4 Gtu208 FREE T4 0.89 ng/dL 11/30/2016 Review of [...] clubbing 09/20/2017 None Full Exam - General 1995 Cardiovascular extremities Edema present: pitting 09/20/2017 2+ [...] Codes Date ADMIN PNEUMOCOCCAL VACCINE SNOMED CT: 05489888 CPT-4: G0009 02/05/2018 Pneumococcal Polysaccharide Vaccine, 23-Valent, Ad CPT-4: 09224 02/05/2018 PPPS, SUBSEQ VISIT CPT -4: G0439 11/30/2017 URINALYSIS NONAUTO W/O SCOPE CPT-4: 55422 03/22/2017 URINALYSIS NONAUTO W/O SCOPE CPT-4: 33240 03/21/2017 PPPS, SUBSEQ VISIT CPT -4: G0439 11/30/2016 PNEUMOCOCCAL VACC 13 JAVIER IM Formatting Model/CDA Sections, Assigned to SNOMED CT: 65817778 CPT-4: 36129Oqewuux 11/30/2016 ADMIN PNEUMOCOCCAL VACCINE SNOMED CT: 71844974 CPT-4: G0009 11/30/2016 Vital Signs Date Vital 10/10/2018 Blood Pressure 1: 126/70 Code : 8480-6 BMI: 34.7 Code : 76079-7 Heart Rate 1 : 80 bpm Height: 5'10" SpO2: 96% Temperature: 37.1 (C) / 98.7 (F) Weight: 242 lbs 10/04/2018 Blood Pressure 1: 120/70 Code : 8480-6 Height: 5'10" SpO2: 96% 08/29/2018 Blood Pressure 1: 104/60 Code : 8480-6 BMI: 34.6 Code : 76213-6 Heart Rate 1 : 68 bpm Height: 5'10" SpO2: 98% Weight: 241 lbs 02/25/2018 Blood Pressure 1: 120/70 Code : 8480-6 BMI: 37.0 Code : 76975-3 Heart Rate 1 : 51 bpm Height: 5'10" SpO2: 97% Weight: 258 lbs 02/20/2018 Blood Pressure 1: 124/70 Code : 8480-6 BMI: 38.0 Code : 34725-4 Heart Rate 1 : 60 bpm Height: 5'10" SpO2: 96% Weight: 265 lbs 02/05/2018 Blood Pressure 1: 116/66 Code : 8480-6 BMI: 38.0 Code : 35734-4 Heart Rate 1 : 63 bpm Height: 5'10" SpO2: 98% Weight: 265 lbs 11/30/2017 Blood Pressure 1: 132/60 Code : 8480-6 BMI: 37.0 Code : 03106-6 Heart Rate 1 : 100 bpm Height: 5'10 " SpO2: 96% Waist Measure (cm): 122 cm Weight: 258 lbs 11/08/2017 Blood Pressure 1: 126/64 Code : 8480-6 BMI: 37.2 Code : 58513-5 Heart Rate 1 : 92 bpm Height: 5'10" SpO2: 94% Weight: 259 lbs 09/20/2017 Blood Pressure 1: 122/68 Code : 8480-6 BMI: 36.9 Code : 96148-9 Heart Rate 1 : 57 bpm Height: 5'10" SpO2: 96% Weight: 257 lbs 06/25/2017 Blood Pressure 1: 124/68 Code : 8480-6 BMI: 37.0 Code : 77704-9 Height: 5'10 " Weight: 258 lbs 06/07/2017 Blood Pressure 1: 122/64 Code : 8480-6 BMI: 37.0 Code : 50035-2 Heart Rate 1 : 60 bpm Height: 5'10" SpO2: 94% Temperature: 36.4 (C) / 97.6 (F) Weight: 258 lbs 05/03/2017 Blood Pressure 1: 118/74 Code : 8480-6 BMI: 38.2 Code : 55195-2 Heart Rate 1 : 52 bpm Height: 5'10" SpO2: 98% Weight: 266 lbs 04/02/2017 Blood Pressure 1: 118/62 Code : 8480-6 BMI: 38.2 Code : 13151-7 Heart Rate 1 : 53 bpm Height: 5'10" SpO2: 93% Weight: 266 lbs 03/26/2017 Blood Pressure 1: 114/62 Code : 8480-6 BMI: 38.3 Code : 94904-7 Height: 5'10 " Weight: 267 lbs 03/22/2017 Blood Pressure 1: 122/64 Code : 8480-6 BMI: 40.0 Code : 24097-0 Heart Rate 1 : 52 bpm Height: 5'10" SpO2: 94% Weight: 279 lbs 03/08/2017 Blood Pressure 1: 124/70 Code : 8480-6 BMI: 39.4 Code : 69925-7 Heart Rate 1 : 51 bpm Height: 5'10" SpO2: 94% Weight: 274 lbs 8 oz 12/06/2016 Blood Pressure 1: 126/62 Code : 8480-6 BMI: 40.3 Code : 34796-8 Heart Rate 1 : 50 bpm Height: 5'10" SpO2: 94% Weight: 281 lbs 11/30/2016 Blood Pressure 1: 112 Code : 8480-6 BMI: 40.3 Code : 69139-5 Heart Rate 1 : 52 bpm Height: 5'10" SpO2: 93% Waist Measure (cm): 135 cm Weight: 281 lbs 11/28/2016 Blood Pressure 1: 132/72 Code : 8480-6 BMI: 40.3 Code : 25899-3 Heart Rate 1 : 50 bpm Height: 5'10" Weight: 281 lbs 05/04/2016 Blood Pressure 1: 128/78 Code : 8480-6 BMI: 38.5 Code : 64671-6 Heart Rate 1 : 74 bpm Height: 5'10" SpO2: 98% Weight: 268 lbs 8 oz 11/04/2015 Blood Pressure 1: 136/60 Code : 8480-6 BMI: 38.0 Code : 94836-3 Heart Rate 1 : 55 bpm Height: 5'10" SpO2: 94% Weight: 265 lbs 07/30/2015 Blood Pressure 1: 128/74 Code : 8480-6 BMI: 38.0 Code : 14413-7 Heart Rate 1 : 47 bpm Height: 5'10" SpO2: 97% Weight: 265 lbs 01/26/2015 Blood Pressure 1: 122/64 Code : 8480-6 BMI: 34.0 Code : 55229-9 Heart Rate 1 : 68 bpm Height: [...] limb[ICD10: L03.115] [facility] CPT-4: 50282 10/10/2018 [id number]) [id number] EST. PATIENT, LEVEL IV Diagnosis: Type 2 diabetes mellitus with foot ulcer[ICD10: E11.621] Diagnosis: Essential (primary) hypertension[ICD10: I10] Diagnosis: Malignant neoplasm of prostate[ICD10: C61] Diagnosis: Chronic obstructive pulmonary disease, unspecified[ICD10: J44.9] Diagnosis: Hypoxemia[ICD10: R09.02] [facility] CPT-4: 58056 10/04/2018 [id number]) [id number] EST. PATIENT, LEVEL IV Diagnosis: Type 2 diabetes mellitus with hyperglycemia[ICD10: E11.65] Diagnosis: Essential (primary) hypertension[ICD10: I10] Diagnosis: Malignant neoplasm of prostate[ICD10: C61] Sarah Sanchez MD, [facility] CPT-4: 14135 08/29/2018 ([id number]) [id number] EST. PATIENT, LEVEL IV Diagnosis: Malignant neoplasm of prostate[ICD10: C61] Dorene Sanchez MD, [facility] CPT-4: 52554 02/25/2018 [id number] EST. PATIENT, LEVEL IV Diagnosis: Generalized abdominal pain[ICD10: R10.84] Diagnosis: Unspecified jaundice[ICD10: R17] Diagnosis: Gross hematuria[ICD10: R31.0] Kiki Sanchez MD, [facility] CPT-4 : 42473 02/20/2018 ([id number]) [id number] EST. PATIENT, LEVEL IV Diagnosis: Type 2 diabetes mellitus with hyperglycemia[ICD10: E11.65] Diagnosis: Essential (primary) hypertension[ICD10: I10] Diagnosis: Chronic kidney disease, stage 3 (moderate)[ICD10: N18.3] Diagnosis: Chronic pain syndrome[ICD10: G89.4] Diagnosis: Other specified hypothyroidism[ICD10: E03.8] Diagnosis: Encounter for screening for malignant neoplasm of prostate[ICD10: Z12.5] Diagnosis: Encounter for immunization[ICD10: Z23] Sarah Sanchez MD, [facility] CPT-4: 03118 02/05/2018 ([id number]) [id number] EST. PATIENT, LEVEL IV Diagnosis: Type 2 diabetes mellitus with hyperglycemia[ICD10: E11.65] Diagnosis: Essential (primary) hypertension[ICD10: I10] Dorene Sanchez MD, [facility] CPT-4: 22902 11/08/2017 ([id number]) [id number] EST. PATIENT, LEVEL IV Diagnosis: Type 2 diabetes mellitus with hyperglycemia[ICD10: E11.65] Diagnosis: Chronic pain syndrome[ICD10: G89.4] Diagnosis: Essential (primary) hypertension[ICD10: I10] Diagnosis: Chronic kidney disease, stage 3 (moderate)[ICD10: N18.3] Diagnosis: Localized edema[ICD10: R60.0] Dorene Sanchez MD, [facility] CPT- 4: 51726 09/20/2017 ([id number]) 36186 EST. PATIENT, LEVEL III Diagnosis: Type 2 diabetes mellitus with hyperglycemia[ICD10: E11.65] Sarah Sanchez MD, [facility] CPT-4: 70212 06/25/2017 ([id number]) 15177 EST. PATIENT, LEVEL III Diagnosis: Cellulitis of left lower limb[ICD10: L03.116] Sarah Sanchez MD, [facility] CPT-4: 99592 06/07/2017 ([id number]) 86166 EST. PATIENT, LEVEL III Diagnosis: Localized edema[ICD10: R60.0] Diagnosis: Type 2 diabetes mellitus with foot ulcer[ICD10: E11.621] Sarah Sanchez MD [facility] CPT-4: 54924 05/03/2017 ([id number]) 53129 EST. PATIENT, LEVEL III Diagnosis: Cellulitis of left lower limb[ICD10: L03.116] Diagnosis: Localized edema[ICD10: R60.0] Sarah Sanchez MD, [facility] CPT-4: 57766 04/02/2017 ([id number]) Miscellaneous no charge Diagnosis: Localized edema[ICD10: R60.0] Diagnosis: Cellulitis of left lower limb[ICD10: L03.116] Sarah Sanchez MD, [facility] CPT-4: 98597 03/26/2017 ([id number]) 23869 EST. PATIENT, LEVEL IV Diagnosis: Cellulitis of left lower limb[ICD10: L03.116] Diagnosis: Chronic gout due to renal impairment, left ankle and foot, without tophus (tophi)[ICD10: M1A.3720] Diagnosis: Localized edema[ICD10: R60.0] Diagnosis: Type 2 diabetes mellitus with hyperglycemia[ICD10: E11.65] Diagnosis: Dysuria[ICD10: R30.0] Dorene Sanchez MD, [facility] CPT-4: 03019 03/22/2017 ([id number]) 54448 EST. PATIENT, LEVEL IV Diagnosis: Type 2 diabetes mellitus with hyperglycemia[ICD10: E11.65] Diagnosis: Other specified hypothyroidism[ICD10: E03.8] Diagnosis: Essential (primary) hypertension[ICD10: I10] Sarah Sanchez MD, [facility] CPT-4: 44440 03/08/2017 ([id number]) 95799 EST. PATIENT, LEVEL III Diagnosis: Type 2 diabetes mellitus with hyperglycemia[ICD10: E11.65] Diagnosis: Other specified hypothyroidism[ICD10: E03.8] Sarah Sanchez MD, [facility] CPT-4: 57990 12/06/2016 ([id number]) 91720 EST. PATIENT, LEVEL IV Diagnosis: Essential (primary) hypertension[ICD10: I10] Diagnosis: Chronic kidney disease, stage 3 (moderate)[ICD10: N18.3] Dorene Sanchez MD, [facility] CPT-4: 68600 11/28/2016 ([id number]) 53483 EST. PATIENT, LEVEL IV Diagnosis: Essential (primary) hypertension[ICD10: I10] Diagnosis: Chronic pain syndrome[ICD10: G89.4] Diagnosis: Chronic kidney disease, stage 3 (moderate)[ICD10: N18.3] Diagnosis: Vitamin B12 deficiency anemia due to intrinsic factor deficiency[ ICD10: D51.0] Diagnosis: Other specified hypothyroidism[ICD10: E03.8] Dorene Sanchez MD, [facility] CPT-4: 39735 05/04/2016 [id number] EST. PATIENT, LEVEL III Diagnosis: Chronic pain syndrome[ICD10: G89.4] Diagnosis: Essential (primary) hypertension[ICD10: I10] Diagnosis: Other specified hypothyroidism[ICD10: E03.8] Kiki Sanchez MD, [facility] CPT-4: 52552 11/04/2015 99323 EST. PATIENT, LEVEL III Diagnosis: Chronic pain syndrome[ICD10: G89.4] Diagnosis: Essential (primary) hypertension[ICD10: I10] Kiki Sanchez MD, [facility] CPT-4: 09287 07/30/2015 ([id number]) OFFICE/OUTPATIENT VISIT NEW Diagnosis: ESSENTIAL HYPERTENSION[ICD9: 401.9] Diagnosis: HYPOTHYROIDISM[ICD9: 244.9] Diagnosis: ANEMIA[ICD9: 285.9] Diagnosis: Vitamin B12 deficiency[ICD9: 266.2] Diagnosis: CHRONIC PAIN SYNDROME[ICD9: 338.4] Diagnosis: Chronic renal insufficiency, stage III (moderate)[ICD9: 585.3] Diagnosis: GOUT[ICD9: 274.9] [facility] CPT-4: 64217 01/26/2015 Plan of Care Planned Activity Notes [...] discharge. 10/10/2018 Appointment: Kiki Menjivar WPtel: [phone] [facility] (30 min) Complex 10/10/2018 Patient Education: Patient Medication Summary Completed 10/10/2018 Visit Plan: DM with peripheral neuropathy-paperwork completed for diabetic shoes and will fax to Dr Bauer HTN-controlled -no changes Tizikiivz-RLEL-HNP-prostate cancer with mets- patient qualifies for oxygen-oxygen saturation dropped to 86% on room air during ambulation but increased to 99% on 2L NC at rest-will send orders to [facility] for continue oxygen at 2L per nasal cannula 10/04/2018 Appointment: Sarah Hernandes WPtel: [phone] (30 min) Complex 10/04/2018 Patient Education: [...] Moreno 08/29/2018 Appointment: Sarah Hernandes WPtel: [phone] [phone] (15 min) Moderate 08/29/2018 Patient Education: Patient Medication Summary Completed 08/29/2018 Referral: Edgard Rivera MD WPtel: Via [address] with Dr. Moreno. Patient informed. Referral info faxed. Completed 02/27/2018 Visit Plan: Recurrent prostate cancer - I have recommended a referral to Dr. Rivera. We discussed the case at length today- he is not interested in extensive treatment, but if possible to extend his quantity and quality of life, he would like to try. 02/25/2018 Appointment: Dorene Sanchez WPtel: [phone] [facility] (15 min) Moderate 02/25/2018 Patient Education: Patient Medication Summary Completed 02/25/2018 Care Plan: Referral Order SNOMED-CT : [id number] Pending 02/25/2018 Visit Plan: Intermittent abdominal pain, jaundice, itching - will check labs and treat as indicated - pt is to go to the ER with any acute change in symptoms or any acute concerns. 02/20/2018 Appointment: Kiki Menjivar WPtel: [facility]5 [facility] (30 min) Complex 02/20/2018 Patient Education: Patient [...] control. 02/05/2018 Appointment: Sarah Hernandes WPtel: [phone] [phone] (30 min) Complex 02/05/2018 Patient Education: [...] surrogate. 11/30/2017 Appointment: Sarah Hernandes WPtel: [phone] [phone] [facility] - Annual Wellness Visit 11/30/2017 [...] 1.2 11/08/2017 Appointment: Dorene Sanchez WPtel: [phone] [facility] (15 min) Moderate 11/08/2017 Patient Education: [...] of over-medication. 09/20/2017 Appointment: LauraLisa chavezy [phone] (15 min) Moderate 09/20/2017 Patient Education: Patient [...] control. 06/25/2017 Appointment: Sarah Hernandes WPtel: [phone] [phone] (30 min) Complex 06/25/2017 Patient Education: Patient Medication Summary Completed 06/25/2017 Appointment: Sarah Hernandes WPtel: [facility]3 [phone] (30 min) Complex 06/22/2017 Visit Plan: Cellulitis - start oral antibiotics as previously directed, return to clinic as previously directed, call for acute change in symptoms, worsening redness, warmth, discharge. 06/07/2017 Appointment: Sarah Hernandes WPtel: [facility]7 [phone] (30 min) Complex 06/07/2017 Patient Education: Patient Medication Summary Completed 06/07/2017 Patient Education: Obesity Completed 06/07/2017 Appointment: Dorene Sanchez WPtel: [facility] (15 min) Moderate 05/31/2017 Visit Plan: Edema-significantly improved-no changes Ulcer- left lower leg and foot-seeing Dr Norwood at wound care-appt scheduled with Dr Frausto for vascular evaluation 05/03/2017 Appointment: Sarah Hernandes WPtel: [phone] [phone] (15 min) Moderate 05/03/2017 Patient Education: Patient Medication Summary Completed 05/03/2017 Patient Education: Obesity Completed 05/03/2017 Visit Plan: Nhbvjgmmfl-chfrgjggd-dckiwjd to finish abx-no further treatment indicated Edema-significantly improved-no longer weeping- continue unna boots twice weekly with home health 04/02/2017 Appointment: Sarah Hernandes WPtel: [phone] [phone] [place] (30 min) Complex 04/02/2017 Patient Education: Patient Medication Summary Completed 04/02/2017 Patient Education: Obesity Completed 04/02/2017 Visit Plan: Cellulitis-left leg-continue levaquin Edema- increase lasix/potassium-consult [facility] for unna boots/dressing changes 03/26/2017 Appointment: [facility] WPtel: [phone] [place] (15 min) Moderate 03/26/2017 Patient [...] indomethacin-stop aleve 03/22/2017 Appointment: Sarah Hernandes WPtel: [address] [place] [phone] (15 min) Moderate 03/22/2017 Patient Education: Patient [...] of control. 03/08/2017 Appointment: Sarah Hernandes WPtel: [address] [place] [phone] (30 min) Complex 03/08/2017 Patient Education: Patient [...] care surrogate. 11/30/2016 Appointment: Sarah Hernandes WPtel: [phone] [facility] - Annual Wellness Visit 11/30/2016 [...] fluids. 11/28/2016 Appointment: Dore[facility] Sanchez [facility]Ptel: [phone] (15 min) Moderate 11/28/2016 Patient Education: Patient [...] 01/26/2015 Referral: Edgard Rivera MD WPtel: [address] [place] Referral Appointment Requested Instructions Comment [...] glucose control. increase the victoza to 1.2 victoza 0.6mg daily . Diabetes Mellitus - [...] to allow for greater blood glucose control. WOUND CARE APPT ANTIBIOTIC TO [facility] . Cellulitis - start oral antibiotics as previously directed, return to clinic as previously directed, call for acute change in symptoms, worsening redness, warmth, discharge. PREVNAR 13 TODAY- GIVEN IN OFFICE PREVNAR 23 IN ONE YEAR SHINGLES VACCINATION TO BE ADMINISTERED AT [facility] RECOMMEND OBTAINING MEDICAL POWER OF UNION [employer]P[place] AND LIVING WILL PATIENT DOES NOT HAVE [...] - continue with increase in fluids. . Chronic Pain Syndrome - pt has [...] with Dr Frausto for vascular evaluation . Vgetimetzi-nuwjrsgcr-baoxmfn to finish abx-no further treatment indicated Edema-significantly [...] fax to Dr Bauer HTN-controlled -no changes Tcwkbsuyr-OYYK-EEM-prostate cancer with mets- patient qualifies for oxygen- oxygen saturation dropped to 86% on room air during ambulation but increased to 99% on 2L NC at rest-will send orders to [facility] for continue oxygen at 2L per nasal cannula . Intermittent abdominal pain, jaundice, itching - will check labs and treat as indicated - pt is to go to the ER with any acute change in symptoms or any acute concerns. Monitor your blood pressure at home and [...] labs - may need b12 shots. . Hypertension - well controlled - continue [...] YEAR SHINGLES VACCINATION TO BE ADMINISTERED AT [facility] RECOMMEND OBTAINING MEDICAL POWER OF [place] AND LIVING WILL PATIENT DOES NOT HAVE [...] YEAR SHINGLES VACCINATION TO BE ADMINISTERED AT [facility] RECOMMEND OBTAINING MEDICAL POWER OF UNION [place] AND LIVING WILL PATIENT DOES NOT HAVE [...] AND POTASSIUM TO TWICE DAILY [facility] FOR UNNA BOOTS -WOUND CARE . Cellulitis-left leg-continue levaquin Edema-increase lasix/potassium-consult [facility] for unna boots/dressing changes REPEAT HGB A1C, CMP, TSH, FREE T4 IN 3 MONTHS CUT OUT SODA, LIMIT SWEETS, CUT BACK ON CARBS (BREADS, PASTAS, POTATOES . DM-new diagnosis-discussed diabetes in detail today including diet and exercise-patient wants to try diet/exercise x 3 months before agreeing to medication-will plan for repeat labs in 3 months-sooner if needed . Medicare Exam - today we discussed [...]
--- OUTSIDE RECORDS SUMMARY | 2018-11-26 11:42 | XMS REPORT | CCD ---
Author Author Dorene Sanchez Organization [facility] Address [address] [place] [address] Phone Care Team Providers Care Middleware Consultant Name Role Phone PP Unavailable CCM Unavailable Summary Purpose Interface Exchange Insurance Providers Payer name Policy type / Coverage type Covered constitution party ID Effective Begin Date Effective End Date WPS Medicare Part B Medicare Part B [id number] Unknown Unknown Family history Father Diagnosis Age At Onset Stroke Unknown Mother Diagnosis Age At Onset Stroke Unknown Diabetes mellitus Type 2 Unknown Social History Social History Element Codes Description Effective Dates Tobacco history SNOMED CT: 485047146 Currently uses smokeless tobacco Chews 05/04/2016 Marital status Unknown 01/26/2015 Number of children Unknown 3 01/26/2015 Employment Unknown Retired 01/26/[address]: 792475201 Never drinks alcohol quit in July 2014 01/26/2015 Allergies, Adverse Reactions, Alerts Substance Reaction Codes Entered Date Inactivated Date Status * NO KNOWN FOOD ALLERGIES Unknown 01/26/2015 No Inactive Date Active * NO KNOWN DRUG ALLERGIES Unknown 01/26/2015 No Inactive Date Active Past Medical History Illness Codes Condition Status Onset Date Resolved Date Chronic obstructive pulmonary disease, unspecified ICD-9: 496 [...] ICD-9: 401.9 ICD-10: I10 Active 01/25/2015 Unknown Localized edema ICD-9 : 782.3 ICD-10: R60.0 Active 03/22/2017 Unknown Cellulitis of left lower limb ICD-9: 682.6 ICD-10: L03.116 Active 03/22/2017 Unknown Chronic gout due to renal impairment, [...] Problems Condition Codes Effective Dates Condition Status Chronic obstructive pulmonary disease, unspecified ICD-9: 496 [...] hypertension ICD-9: 401.9 ICD-10: I10 01/25/2015 Active Localized edema ICD-9 : 782.3 ICD-10: R60.0 03/22/2017 Active Cellulitis of left lower limb ICD-9: 682.6 ICD-10: L03.116 03/22/2017 Active Chronic gout due to renal impairment, [...] Start Date Stop Date Status Fill Instructions albuterol sulfate 2.5 mg/3 mL (0.083 %) solution for nebulization RxNorm: 108622 1 Milliliter(s) INH TID DX J44.9 10/04/2018 01/31/2019 Active gabapentin 100 mg capsule RxNorm: 168539 TAKE ONE CAPSULE BY MOUTH IN THE EVENING AT 5PM 09/24/2018 03/22/2019 Active oxycodone 20 mg tablet RxNorm: 3340197 1/2 Tablet(s) PO Q6 as needed 09/12/2018 10/11/2018 Active oxycodone 20 mg tablet RxNorm: 5436200 1/2 Tablet(s) PO Q6 as needed 08/15/2018 09/11/2018 Inactive oxycodone 20 mg tablet RxNorm: 2772545 1/2 Tablet(s) PO Q6 as needed 07/16/2018 08/14/2018 Inactive oxycodone 20 mg tablet RxNorm: 7050594 1/2 Tablet(s) PO Q6 as needed 06/14/2018 07/13/2018 Inactive gabapentin 100 mg capsule RxNorm: 339446 TAKE ONE CAPSULE BY MOUTH IN THE EVENING AT 5PM 05/30/2018 09/23/2018 Inactive oxycodone 20 mg tablet RxNorm: 3183511 1/2 Tablet(s) PO Q6 as needed 05/15/2018 06/13/2018 Inactive oxycodone 20 mg tablet RxNorm: 2917708 1/2 Tablet(s) PO Q6 as needed 04/12/2018 05/11/2018 Inactive oxycodone 20 mg tablet RxNorm: 9022837 1/2 Tablet(s) PO Q6 as needed 03/11/2018 04/09/2018 Inactive levothyroxine 200 mcg tablet RxNorm: 330502 1 Tablet(s) PO daily 02/21/2018 02/15/2019 Active Cipro 500 mg tablet RxNorm: 003444 1 Tablet(s) PO BID 201702/20/2018 Inactive levothyroxine 200 mcg tablet RxNorm: 036287 1 Tablet(s) PO daily 02/21/2018 02/20/2018 Inactive Cipro 500 mg tablet RxNorm: 184718 1 Tablet(s) PO BID 201703/02/2018 Inactive oxycodone 20 mg tablet RxNorm: 0642134 1/2 Tablet(s) PO Q6 as needed 02/12/2018 03/10/2018 Inactive oxycodone 20 mg tablet RxNorm: 5639286 1/2 Tablet(s) PO Q6 as needed 01/16/2018 02/11/2018 Inactive gabapentin 100 mg capsule RxNorm: 381613 TAKE ONE CAPSULE BY MOUTH IN THE EVENING AT 5PM 01/15/2018 05/29/2018 Inactive bisoprolol 5 mg-hydrochlorothiazide 6.25 mg tablet RxNorm: 944029 TAKE ONE TABLET BY MOUTH DAILY 01/01/2018 12/26/2018 Active oxycodone 20 mg tablet RxNorm: 7245385 1/2 Tablet(s) PO Q6 as needed 12/20/2017 01/14/2018 Inactive oxycodone 20 mg tablet RxNorm: 8467905 1/2 Tablet(s) PO Q6 as needed 11/20/2017 12/19/2017 Inactive Victoza 2-Dino 0.6 mg/0.1 mL (18 mg/3 mL) subcutaneous pen injector RxNorm: 971242 1.2 Milligram(s) SQ daily 11/08/201712/07 Inactive oxycodone 20 mg tablet RxNorm: 1918801 1/2 Tablet(s) PO Q6 as needed 10/19/2017 11/17/2017 Inactive Lasix 20 mg tablet RxNorm: 413225 1 Tablet(s) QAM at 5pm 12/201703/18/2018 Inactive gabapentin 100 mg capsule RxNorm: 640425 1 Capsule(s) PO QPM at 5 pm 09/20/2017 01/14/2018 Inactive oxycodone 20 mg tablet RxNorm: 3440651 1/2 Tablet(s) PO Q6 as needed 09/18/2017 10/17/2017 Inactive oxycodone 20 mg tablet RxNorm: 3627440 1/2 Tablet(s) PO Q6 as needed 08/14/2017 09/12/2017 Inactive ketoconazole 2 % topical cream RxNorm: 659889 1 Gram(s) TOP BID to affected area until healed 08/03/2017 No Stop Date Active oxycodone 20 mg tablet RxNorm: 5693573 1/2 Tablet(s) PO Q6 as needed 07/17/2017 08/13/2017 Inactive pen needle, diabetic 31 gauge x 5/16" RxNorm: 1 Unit Dose Miscellaneous daily 06/25/2017 03/21/2018 Inactive daily use with victoza Bactrim DS 800 mg-160 mg tablet RxNorm: 855381 1 Tablet(s) PO BID Dr Norwood 06/25/2017 07/04/2017 Inactive Victoza 2-Dino 0.6 mg/0.1 mL (18 mg/3 mL) subcutaneous pen injector RxNorm: 979552 0.6 Milligram(s) SQ daily 06/25/201707/24 Inactive doxycycline hyclate 100 mg tablet RxNorm: 134874 1 Tablet(s) PO BID Dr Norwood 06/21/2017 06/30/2017 Inactive oxycodone 20 mg tablet RxNorm: 1691484 1/2 Tablet(s) PO Q6 as needed 06/14/2017 07/13/2017 Inactive clindamycin 150 mg capsule RxNorm: 651963 1 Capsule(s) PO Q8 06/16/2017 Inactive levothyroxine 175 mcg tablet RxNorm: 552144 TAKE ONE TABLET BY MOUTH DAILY 06/04/2017 09/01/2017 Inactive levothyroxine 175 mcg tablet RxNorm: 055626 TAKE ONE TABLET BY MOUTH DAILY 06/04/2017 11/30/2017 Inactive bisoprolol 5 mg-hydrochlorothiazide 6.25 mg tablet RxNorm: 497506 TAKE ONE TABLET BY MOUTH DAILY 05/24/2017 11/19/2017 Inactive oxycodone 20 mg tablet RxNorm: 8890557 1/2 Tablet(s) PO Q6 as needed 05/14/2017 06/12/2017 Inactive potassium chloride ER 10 mEq capsule,extended release RxNorm: 354260 TAKE ONE CAPSULE BY MOUTH DAILY NEEDED FOR 5 DAYS THEN NEEDED WITH LASIX 04/17/2017 10/13/2017 Inactive Lasix 20 mg tablet RxNorm: 235929 TAKE ONE TABLET BY MOUTH DAILY NEEDED 04/17/2017 09/19/2017 Inactive oxycodone 20 mg tablet RxNorm: 7931912 1/2 Tablet(s) PO Q6 as needed 04/12/2017 05/11/2017 Inactive Colcrys 0.6 mg tablet RxNorm: 986785 2 tabs at onset then may repeat 1 tab in 1 hours if needed- Tablet(s) PO 04/09/2017 No Stop Date Active then take daily until gout resolved Bactrim DS 800 mg-160 mg tablet RxNorm: 157379 1 Tablet(s) PO BID 04/09/2017 04/08/2017 Inactive dc levaquin Bactrim DS 800 mg-160 mg tablet RxNorm: 876838 1 Tablet(s) PO BID 04/09/2017 04/15/2017 Inactive dc levaquin Levaquin 500 mg tablet RxNorm: 378092 1 Tablet(s) PO daily 04/02/2017 Inactive Levaquin 500 mg tablet RxNorm: 923477 1 Tablet(s) PO daily 06/06/2017 Inactive indomethacin 25 mg capsule RxNorm: 408458 1 Capsule(s) PO TID PRN 03/22/2017 03/22/2017 Inactive Lasix 20 mg tablet RxNorm: 429894 1 Tablet(s) PO QDAY PRN 02/201704/16/2017 Inactive daily x 5 days then as needed Levaquin 500 mg tablet RxNorm: 039022 1 Tablet(s) PO daily 02/201703/31/2017 Inactive potassium chloride ER 10 mEq capsule,extended release RxNorm: 261566 1 Capsule(s) PO QDAY PRN 03/22/2017 04/16/2017 Inactive daily x 5 days then as needed with lasix oxycodone 20 mg tablet RxNorm: 9165368 1/2 Tablet(s) PO Q6 as needed 03/08/2017 04/06/2017 Inactive bisoprolol 5 mg-hydrochlorothiazide 6.25 mg tablet RxNorm: 501766 TAKE ONE TABLET BY MOUTH DAILY 02/14/2017 05/14/2017 Inactive oxycodone 20 mg tablet RxNorm: 9369235 1/2 Tablet(s) PO Q6 as needed 02/08/2017 03/07/2017 Inactive oxycodone 20 mg tablet RxNorm: 7561401 1/2 Tablet(s) PO Q6 as needed 01/08/2017 02/06/2017 Inactive levothyroxine 175 mcg tablet RxNorm: 817324 1 Tablet(s) PO daily 12/06/2016 06/03/2017 Inactive [SAVINGS FOR NON-COVERED DRUGS -- BIN:[id number], PCN: ASPROD1, Group: XXXXX, ID# XXXXXXX, Questions: . THIS IS NOT INSURANCE.] oxycodone 20 mg tablet RxNorm: 8226974 1/2 Tablet(s) PO Q6 as needed 12/04/2016 01/02/2017 Inactive oxycodone 20 mg tablet RxNorm: 8453984 1/2 Tablet(s) PO Q6 as needed 11/09/2016 12/03/2016 Inactive bisoprolol 5 mg-hydrochlorothiazide 6.25 mg tablet RxNorm: 011588 TAKE ONE TABLET BY MOUTH DAILY 11/08/2016 02/05/2017 Inactive oxycodone 20 mg tablet RxNorm: 1144708 1/2 Tablet(s) PO Q6 as needed 10/05/2016 11/03/2016 Inactive oxycodone 20 mg tablet RxNorm: 5599685 1/2 Tablet(s) PO Q6 as needed 09/06/2016 10/04/2016 Inactive oxycodone 20 mg tablet RxNorm: 8315726 1/2 Tablet(s) PO Q6 as needed 08/07/2016 09/05/2016 Inactive oxycodone 20 mg tablet RxNorm: 6619821 1/2 Tablet(s) PO Q6 as needed 07/04/2016 08/06/2016 Inactive oxycodone 20 mg tablet RxNorm: 4043203 1/2 Tablet(s) PO Q6 as needed 05/29/2016 07/03/2016 Inactive levothyroxine 150 mcg tablet RxNorm: 903278 1 Tablet(s) PO daily 04/10/2016 04/09/2016 Inactive [SAVINGS FOR NON-COVERED DRUGS -- BIN:[id number], PCN: ASPROD1, Group: XXXXX, ID# XXXXXXX, Questions: . THIS IS NOT INSURANCE.] oxycodone 20 mg tablet RxNorm: 0508359 1/2 Tablet(s) PO Q6 as needed 04/10/2016 05/28/2016 Inactive levothyroxine 150 mcg tablet RxNorm: 533538 1 Tablet(s) PO daily 04/10/2016 10/06/2016 Inactive [SAVINGS FOR NON-COVERED DRUGS -- BIN:[id number], PCN: ASPROD1, Group: XXXXX, ID# XXXXXXX, Questions: . THIS IS NOT INSURANCE.] bisoprolol 5 mg-hydrochlorothiazide 6.25 mg tablet RxNorm: 947686 1 Tablet(s) PO daily 02/16/2016 12/31/2017 Inactive oxycodone 20 mg tablet RxNorm: 8110894 1/2 Tablet(s) PO Q6 as needed 02/16/2016 04/09/2016 Inactive oxycodone 20 mg tablet RxNorm: 7367550 1/2 Tablet(s) PO Q6 as needed 01/04/2016 02/15/2016 Inactive bisoprolol 5 mg-hydrochlorothiazide 6.25 mg tablet RxNorm: 984975 1 Tablet(s) PO daily 11/19/2015 01/17/2016 Inactive bisoprolol 5 mg-hydrochlorothiazide 6.25 mg tablet RxNorm: 839410 1 Tablet(s) PO daily 11/04/2015 11/18/2015 Inactive oxycodone 20 mg tablet RxNorm: 3899853 1/2 Tablet(s) PO Q6 as needed 10/27/2015 01/03/2016 Inactive levothyroxine 150 mcg tablet RxNorm: 609523 1 Tablet(s) PO daily 08/26/2015 02/21/2016 Inactive [SAVINGS FOR NON-COVERED DRUGS -- BIN:[id number], PCN: ASPROD1, Group: XXXXX, ID# XXXXXXX, Questions: . THIS IS NOT INSURANCE.] bisoprolol 5 mg-hydrochlorothiazide 6.25 mg tablet RxNorm: 248571 1 Tablet(s) PO daily 08/26/2015 10/24/2015 Inactive oxycodone 10 mg tablet RxNorm: 2768371 1 Tablet(s) PO Q6 as needed 05/06/2015 10/26/2015 Inactive levothyroxine 150 mcg tablet RxNorm: 358389 1 Tablet(s) PO daily 02/05/2015 08/03/2015 Inactive [SAVINGS FOR NON-COVERED DRUGS -- BIN:[id number], PCN: ASPROD1, Group: XXXXX, ID# XXXXXXX, Questions: . THIS IS NOT INSURANCE.] Vitamin D2 50,000 unit capsule RxNorm: 172049 1 Capsule(s) PO weekly 02/05/2015 05/05/2015 Inactive [SAVINGS FOR NON-COVERED DRUGS -- BIN:595621, PCN: ASPROD1, Group: XXXXX, ID# XXXXXXX, Questions: . THIS IS NOT INSURANCE.] Vitamin D2 50,000 unit capsule RxNorm: 784676 1 Capsule(s) PO weekly 02/05/2015 02/04/2015 Inactive bisoprolol 5 mg-hydrochlorothiazide 6.25 mg tablet RxNorm: 521594 1 Tablet(s) PO daily 01/26/2015 02/24/2015 Inactive levothyroxine 200 mcg tablet RxNorm: 200961 1 Tablet(s) PO daily 01/26/2015 01/25/2015 Inactive levothyroxine 200 mcg tablet RxNorm: 328032 1 Tablet(s) PO every other day 01/26/2015 02/04/2015 Inactive [SAVINGS FOR NON-COVERED DRUGS -- BIN:[id number], PCN: ASPROD1, Group: XXXXX, ID# XXXXXXX, Questions: . THIS IS NOT INSURANCE.] aspirin 81 mg chewable tablet RxNorm: 989733 1 Tablet(s) PO daily No Start Date Active Plavix 75 mg tablet RxNorm: 042080 1 Tablet(s) PO daily manage by Dr Baig No Start Date Active simvastatin 40 mg tablet RxNorm: 393229 1 Tablet(s) PO QHS managed by Dr Baig No Start Date Active Colcrys 0.6 mg tablet RxNorm: 184494 2 tabs at onset then may repeat 1 tab in 1 hours if needed- Tablet(s) PO No Start Date 04/08/2017 Inactive then take daily until gout resolved aspirin 325 mg tablet RxNorm: 982686 1 Tablet(s) PO daily No Start Date 05/03/2016 Inactive levothyroxine 75 mcg tablet RxNorm: 576455 1 Tablet(s) PO every other day No Start Date 02/04/2015 Inactive takes qod with 200mcg oxycodone 10 mg tablet RxNorm: 8440021 1 Tablet(s) PO Q6 as needed No Start Date 05/05/2015 Inactive ketoconazole 2 % topical cream RxNorm: 381268 1 Gram(s) TOP BID to affected area until healed No Start Date 08/02/2017 Inactive indomethacin oral RxNorm: 5781 oral No Start Date 03/21/2017 Inactive Medication Administered No Medication Administered data Immunizations Vaccine Codes Date Status Pneumococcal (Adult) CVX: 33 02/05/2018 completed Pneumococcal (Adult) CVX: 133 11/30/2016 completed Assessments Condition Codes Effective Dates Chronic obstructive pulmonary disease, unspecified ICD-10: J44.9 ICD-9: 496 10/04/2018 Malignant neoplasm of prostate ICD-10: C61 ICD-9: 185 10/04/2018 Essential (primary) hypertension ICD-10: I10 ICD-9: 401.1 10/04/2018 Type 2 diabetes mellitus with foot ulcer ICD-10: E11.621 ICD-9: 250.80 10/04/2018 Hypoxemia ICD-10: R09.02 ICD-9: 799.02 10/04/2018 Type 2 diabetes mellitus with hyperglycemia ICD-10: E11.65 ICD-9: 250.00 08/29/2018 Gross hematuria ICD-10: R31.0 ICD-9: 599.71 02/20/2018 Unspecified jaundice ICD-10: R17 ICD-9: 782.4 02/20/2018 Generalized abdominal pain ICD-10: R10.84 ICD-9: 789.07 02/20/2018 Encounter for screening for malignant neoplasm of prostate ICD-10: Z12.5 ICD-9: V76.44 02/05/2018 Chronic pain syndrome ICD-10: G89.4 ICD-9: 338.4 02/05/2018 Encounter for immunization ICD-10: Z23 ICD-9: V03.82 02/05/2018 Chronic kidney disease, stage 3 (moderate) ICD-10: N18.3 ICD-9: 585.3 02/05/2018 Other specified hypothyroidism ICD-10: E03.8 ICD-9: 244.9 02/05/2018 Encounter for general adult medical examination with abnormal findings ICD-10: Z00.01 ICD-9: V70.0 11/30/2017 Localized edema ICD-10: R60.0 ICD-9: 782.3 09/20/2017 Essential (primary) hypertension ICD-10: I10 ICD-9: 401.9 09/20/2017 Cellulitis of left lower limb ICD-10: L03.116 ICD-9: 682.6 06/07/2017 Chronic gout due to renal impairment, left ankle and foot, 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) ICD-10: M1A.3720 ICD-9: 274.19 03/22/2017 Dysuria ICD-10: R30.0 ICD-9: 788.1 03/22/2017 Encounter for immunization ICD-10: Z23 ICD-9: V03.9 11/30/2016 Vitamin B12 deficiency anemia due to intrinsic factor deficiency ICD-10: D51.0 ICD-9: 281.0 05/04/2016 ESSENTIAL HYPERTENSION ICD-9: 401.9 01/26 HYPOTHYROIDISM ICD-9: 244.9 01/26/2015 GOUT ICD-9: 274.9 01/26/2015 ANEMIA ICD-9: 285.9 01/26/2015 Chronic renal insufficiency, stage III (moderate) ICD-9: 585.3 01/26/2015 Vitamin B12 deficiency ICD-9: 266.2 01/26 CHRONIC PAIN SYNDROME ICD-9: 338.4 2014 Reason For Visit Reason For Visit Effective Dates Notes diabetic foot exam 10/04/2018 diabetes mellitus 08/29/2018 [...] Code Item Item Code Result Date %Hba1C Oue284 % HbA1c 52163-6 6.4 % 08/30/2018 %Hba1C Eqk170 Gluc Ave 137 mg/dL 08/30/2018 Culture Urine [id number] URINE CULTURE SEE NOTES 02/22/2018 Urine Culture Ucult Complete Growth of aerobe sent to ref lab 02/21/2018 Cbc With Differential Ord2 WBC 7.41 K/ul 02/20/2018 Cbc With Differential Ord2 RBC 4.70 M/ul 02/20/2018 Cbc With Differential Ord2 HGB 11.5 g/dl 02/20/2018 Cbc With Differential Ord2 Neut% 75.0 % 02/20/2018 Cbc With Differential Ord2 HCT 38.1 % 02/20/2018 Cbc With Differential Ord2 MCV 81.1 fl 02/20/2018 Cbc With Differential Ord2 Lymph% 10.9 % 02/20/2018 Cbc With Differential Ord2 MCH 24.5 pg 02/20/2018 Cbc With Differential Ord2 [place]% 8.9 % 02/20/2018 Cbc With Differential Ord2 [...] 0.81 K/ul 02/20/2018 Cbc With Differential Ord2 [place] ABS# 0.7 K/ul 02/20/2018 Cbc With Differential Ord2 Eos ABS# 0.4 K/ul 02/20/2018 Cbc With Differential Ord2 Baso ABS# 0.0 K/ul 02/20/2018 %Hba1C Jzf781 % HbA1c 58362-4 7.7 % 02/20/2018 %Hba1C Kyk456 Gluc Ave 174 mg/dL 02/20/2018 Lipase Vjk602 LIPASE 17 U/L 02/20/2018 Microalbumin Rmv642 MicroAlb 6.5 mg/dL 02/20/2018 Amylase Ord34 AMYLASE 15 U/L 02/20/2018 Free T4 Gmw167 FREE T4 0.61 ng/dL 02/20/2018 Lipid Ord30 CHOL 203 mg/dL 02/20/2018 Lipid Ord30 HDL 7.0 mg/dl 02/20/2018 Lipid Ord30 TRIG 271 mg/dL 02/20/2018 Lipid Ord30 LDL 142 mg/dL 02/20/2018 Lipid Ord30 C/HDL 29.0 Ratio 02/20/2018 Comp Metabolic Cug867 NA 134 mEq/L 02/20/2018 Comp Metabolic Yax251 K 3.6 mEq/L 02/20/2018 Comp Metabolic Xnn433 CL 96 mEq/L 02/20/2018 Comp Metabolic Wcx104 CO2 29.0 mEq/L 02/20/2018 Comp Metabolic Dkl934 ANION GAP 13 02/20/2018 Comp Metabolic Vax941 GLUCOSE 165 mg/dL 02/20/2018 Comp Metabolic Yql401 Creat 1.2 mg/dL 02/20/2018 Comp Metabolic Xuv325 eGFR 63 ml/min/1.73m2 02/20/2018 Comp Metabolic Juq041 BUN 14 mg/dL 02/20/2018 Comp Metabolic Zes645 B/C Ratio 11.6 Ratio 02/20/2018 Comp Metabolic Vag963 CALCIUM 8.5 mg/dL 02/20/2018 Comp Metabolic Ymt250 ALK PHOS 633 U/L 02/20/2018 Comp Metabolic Qka650 AST(SGOT) 112 U/L 02/20/2018 Comp Metabolic Cmu784 ALT(SGPT) 148 U/L 02/20/2018 Comp Metabolic Opy623 BILI T 6.8 mg/dL 02/20/2018 Comp Metabolic Izf623 ALBUMIN 3.3 g/dL 02/20/2018 Comp Metabolic Slr423 TPRO 5.9 g/dL 02/20/2018 Comp Metabolic Tcp568 GLOB 2.6 g/dL 02/20/2018 Comp Metabolic Cqg226 A/G Ratio 1.3 Ratio 02/20/2018 Comp Metabolic Dwt704 Osmo 272 mOsmo 02/20/2018 Total Psa Ord10 [...] Metabolic Ord15 CALCIUM 9.2 mg/dL 11/09/2017 %Hba1C Yum059 % HbA1c 05128-7 8.0 % 11/09/2017 %Hba1C Crq440 Gluc Ave 183 mg/dL 11/09/2017 Metabolic Ord15 [...] Ord15 CALCIUM 8.7 mg/dL 06/25/2017 Culture Wound [id number] WOUND CULTURE SEE NOTES 04/09/2017 Culture Wound [id number] Continued Results 04/09/2017 Amylase Ord34 AMYLASE 19 [...] 8.0 % 03/22/2017 Cbc With Differential Ord2 [place]% 8.3 % 03/22/2017 Cbc With Differential Ord2 MCH 27.9 pg 03/22/2017 Cbc With Differential Ord2 Eos% 1.3 % 03/22/2017 Cbc With Differential Ord2 MCHC 31.3 pg 03/22/2017 Cbc With Differential Ord2 Baso% 0.1 % 03/22/2017 Cbc With Differential Ord2 PLT 353 K/ul 03/22/2017 Cbc With Differential Ord2 Neut ABS# 13.95 K/ul 03/22/2017 Cbc With Differential Ord2 RDW 17.5 % 03/22/2017 Cbc With Differential Ord2 Lymph ABS# 1.35 K/ul 03/22/2017 Cbc With Differential Ord2 [place] ABS# 1.4 K/ul 03/22/2017 Cbc With Differential Ord2 Eos ABS# 0.2 K/ul 03/22/2017 Cbc With Differential Ord2 Baso ABS# 0.0 K/ul 03/22/2017 Comp Metabolic Jvl104 NA 134 mEq/L 03/22/2017 Comp Metabolic Hri080 K 4.5 mEq/L 03/22/2017 Comp Metabolic Bbj330 CL 93 mEq/L 03/22/2017 Comp Metabolic Fwy335 CO2 31.0 mEq/L 03/22/2017 Comp Metabolic Aaw175 ANION GAP 15 03/22/2017 Comp Metabolic Fhb885 GLUCOSE 198 mg/dL 03/22/2017 Comp Metabolic Qyg027 Creat 1.5 mg/dL 03/22/2017 Comp Metabolic Ieh090 eGFR 50 ml/min/1.73m2 03/22/2017 Comp Metabolic Ubv766 BUN 32 mg/dL 03/22/2017 Comp Metabolic Xpp947 B/C Ratio 21.6 Ratio 03/22/2017 Comp Metabolic Yhc106 CALCIUM 8.4 mg/dL 03/22/2017 Comp Metabolic Mpq140 ALK PHOS 245 U/L 03/22/2017 Comp Metabolic Qxp713 AST(SGOT) 18 U/L 03/22/2017 Comp Metabolic Fmb604 ALT(SGPT) 17 U/L 03/22/2017 Comp Metabolic Tzz434 BILI T 0.8 mg/dL 03/22/2017 Comp Metabolic Tyl568 ALBUMIN 2.9 g/dL 03/22/2017 Comp Metabolic Dut549 TPRO 6.3 g/dL 03/22/2017 Comp Metabolic Qlj912 GLOB 3.4 g/dL 03/22/2017 Comp Metabolic Fle546 A/G Ratio 0.8 Ratio 03/22/2017 Comp Metabolic Puz364 Osmo 281 mOsmo 03/22/2017 Lipase Oox991 LIPASE 12 U/L 03/22/2017 Comp Metabolic Ege414 NA 142 mEq/L 03/09/2017 Comp Metabolic Oyo335 K 4.8 mEq/L 03/09/2017 Comp Metabolic Spg394 CL 103 mEq/L 03/09/2017 Comp Metabolic Edw933 CO2 30.0 mEq/L 03/09/2017 Comp Metabolic Wxk821 ANION GAP 14 03/09/2017 Comp Metabolic Fwk795 GLUCOSE 152 mg/dL 03/09/2017 Comp Metabolic Wki099 Creat 1.3 mg/dL 03/09/2017 Comp Metabolic Xmf929 eGFR 56 ml/min/1.73m2 03/09/2017 Comp Metabolic Vcw017 BUN 23 mg/dL 03/09/2017 Comp Metabolic Qvo608 B/C Ratio 17.3 Ratio 03/09/2017 Comp Metabolic Axq285 CALCIUM 8.5 mg/dL 03/09/2017 Comp Metabolic Poq262 ALK PHOS 97 U/L 03/09/2017 Comp Metabolic Uxt656 AST(SGOT) 10 U/L 03/09/2017 Comp Metabolic Trr878 ALT(SGPT) 6 U/L 03/09/2017 Comp Metabolic Fgk650 BILI T 0.4 mg/dL 03/09/2017 Comp Metabolic Xdj617 ALBUMIN 3.4 g/dL 03/09/2017 Comp Metabolic Qco771 TPRO 6.2 g/dL 03/09/2017 Comp Metabolic Qeq954 GLOB 2.8 g/dL 03/09/2017 Comp Metabolic Mwq413 A/G Ratio 1.2 Ratio 03/09/2017 Comp Metabolic Qwv972 Osmo 290 mOsmo 03/09/2017 Free T4 Xgl020 FREE T4 0.86 ng/dL 03/08/2017 Cbc With [...] 28.2 pg 03/08/2017 Cbc With Differential Ord2 [place]% 8.7 % 03/08/2017 Cbc With Differential Ord2 Eos% 5.1 % 03/08/2017 Cbc With Differential Ord2 MCHC 30.1 pg 03/08/2017 Cbc With Differential Ord2 Baso% 0.2 % 03/08/2017 Cbc With Differential Ord2 PLT 268 K/ul 03/08/2017 Cbc With Differential Ord2 RDW 16.8 % 03/08/2017 Cbc With Differential Ord2 Neut ABS# 6.75 K/ul 03/08/2017 Cbc With Differential Ord2 Lymph ABS# 1.63 K/ul 03/08/2017 Cbc With Differential Ord2 [place] ABS# 0.9 K/ul 03/08/2017 Cbc With Differential Ord2 Eos ABS# 0.5 K/ul 03/08/2017 Cbc With Differential Ord2 Baso ABS# 0.0 K/ul 03/08/2017 Tsh Ord6 hTSH II 4.52 uIU/mL 03/08/2017 %Hba1C Oti789 % HbA1c 90219-5 8.5 % 03/08/2017 %Hba1C Qex152 Gluc Ave 197 mg/dL 03/08/2017 %Hba1C Usy040 % HbA1c 98515-0 9.8 % 12/04/2016 %Hba1C Luz919 Gluc Ave 235 mg/dL 12/04/2016 Tsh Ord6 hTSH II 10.65 uIU/mL 11/30/2016 Comp Metabolic Iex324 NA 134 mEq/L 11/30/2016 Comp Metabolic Pis529 K 5.0 mEq/L 11/30/2016 Comp Metabolic Jfh390 CL 95 mEq/L 11/30/2016 Comp Metabolic Bii558 CO2 34.0 mEq/L 11/30/2016 Comp Metabolic Lvv862 ANION GAP 10 11/30/2016 Comp Metabolic Jyn662 GLUCOSE 226 mg/dL 11/30/2016 Comp Metabolic Krp011 Creat 1.3 mg/dL 11/30/2016 Comp Metabolic Bjs232 eGFR 56 ml/min/1.73m2 11/30/2016 Comp Metabolic Lvf450 BUN 21 mg/dL 11/30/2016 Comp Metabolic Dlx552 B/C Ratio 15.7 Ratio 11/30/2016 Comp Metabolic Nzd181 CALCIUM 8.9 mg/dL 11/30/2016 Comp Metabolic Cjf611 ALK PHOS 112 U/L 11/30/2016 Comp Metabolic Kpu050 AST(SGOT) 9 U/L 11/30/2016 Comp Metabolic Ayx141 ALT(SGPT) 7 U/L 11/30/2016 Comp Metabolic Taf646 BILI T 0.6 mg/dL 11/30/2016 Comp Metabolic Luk436 ALBUMIN 3.6 g/dL 11/30/2016 Comp Metabolic Jva599 TPRO 6.4 g/dL 11/30/2016 Comp Metabolic Kfc195 GLOB 2.9 g/dL 11/30/2016 Comp Metabolic Ntb545 A/G Ratio 1.2 Ratio 11/30/2016 Comp Metabolic Kya511 Osmo 278 mOsmo 11/30/2016 Lipid Ord30 CHOL [...] 30.6 pg 11/30/2016 Cbc With Differential Ord2 [place]% 7.9 % 11/30/2016 Cbc With Differential Ord2 MCHC 30.8 pg 11/30/2016 Cbc With Differential Ord2 Eos% 2.4 % 11/30/2016 Cbc With Differential Ord2 Baso% 0.1 % 11/30/2016 Cbc With Differential Ord2 PLT 243 K/ul 11/30/2016 Cbc With Differential Ord2 RDW 16.1 % 11/30/2016 Cbc With Differential Ord2 Neut ABS# 7.88 K/ul 11/30/2016 Cbc With Differential Ord2 Lymph ABS# 1.34 K/ul 11/30/2016 Cbc With Differential Ord2 [place] ABS# 0.8 K/ul 11/30/2016 Cbc With Differential Ord2 Eos ABS# 0.3 K/ul 11/30/2016 Cbc With Differential Ord2 Baso ABS# 0.0 K/ul 11/30/2016 Free T4 [id number] FREE T4 0.89 ng/dL 11/30/2016 Review of [...] clubbing 10/04/2018 None Full Exam - General 1995 [...] bilaterally 11/30/2017 None Full Exam - General 1995 Respiratory respiratory effort/rhythm Overall: no retractions 11/30/2017 [...] Codes Date ADMIN PNEUMOCOCCAL VACCINE SNOMED CT: 30170366 CPT-4: G0009 02/05/2018 Pneumococcal Polysaccharide Vaccine, 23-Valent, Ad CPT-4: 08180 02/05/2018 PPPS, SUBSEQ VISIT CPT -4: G0439 11/30/2017 URINALYSIS NONAUTO W/O SCOPE CPT-4: 89289 03/22/2017 URINALYSIS NONAUTO W/O SCOPE CPT-4: 81949 03/21/2017 PPPS, SUBSEQ VISIT CPT -4: G0439 11/30/2016 PNEUMOCOCCAL VACC 13 JAVIER IM Formatting Model/CDA Sections, Assigned to SNOMED CT: 39146937 CPT-4: 81469Jmsqane 11/30/2016 ADMIN PNEUMOCOCCAL VACCINE SNOMED CT: 09813695 CPT-4: G0009 11/30/2016 Vital Signs Date Vital 10/04/2018 Blood Pressure 1: 120/70 Code : 8480-6 Height: 5'10" SpO2: 96% 08/29/2018 Blood Pressure 1: 104/60 Code : 8480-6 BMI: 34.6 Code : 88003-6 Heart Rate 1 : 68 bpm Height: 5'10" SpO2: 98% Weight: 241 lbs 02/25/2018 Blood Pressure 1: 120/70 Code : 8480-6 BMI: 37.0 Code : 12275-6 Heart Rate 1 : 51 bpm Height: 5'10" SpO2: 97% Weight: 258 lbs 02/20/2018 Blood Pressure 1: 124/70 Code : 8480-6 BMI: 38.0 Code : 24861-3 Heart Rate 1 : 60 bpm Height: 5'10" SpO2: 96% Weight: 265 lbs 02/05/2018 Blood Pressure 1: 116 Code : 8480-6 BMI: 38.0 Code : 36425-6 Heart Rate 1 : 63 bpm Height: 5'10" SpO2: 98% Weight: 265 lbs 11/30/2017 Blood Pressure 1: 132/60 Code : 8480-6 BMI: 37.0 Code : 43913-0 Heart Rate 1 : 100 bpm Height: 5'10 " SpO2: 96% Waist Measure (cm): 122 cm Weight: 258 lbs 11/08/2017 Blood Pressure 1: 126/64 Code : 8480-6 BMI: 37.2 Code : 93088-1 Heart Rate 1 : 92 bpm Height: 5'10" SpO2: 94% Weight: 259 lbs 09/20/2017 Blood Pressure 1: 122/68 Code : 8480-6 BMI: 36.9 Code : 63199-8 Heart Rate 1 : 57 bpm Height: 5'10" SpO2: 96% Weight: 257 lbs 06/25/2017 Blood Pressure 1: 124/68 Code : 8480-6 BMI: 37.0 Code : 21436-4 Height: 5'10 " Weight: 258 lbs 06/07/2017 Blood Pressure 1: 122/64 Code : 8480-6 BMI: 37.0 Code : 01947-7 Heart Rate 1 : 60 bpm Height: 5'10" SpO2: 94% Temperature: 36.4 (C) / 97.6 (F) Weight: 258 lbs 05/03/2017 Blood Pressure 1: 118/74 Code : 8480-6 BMI: 38.2 Code : 41752-1 Heart Rate 1 : 52 bpm Height: 5'10" SpO2: 98% Weight: 266 lbs 04/02/2017 Blood Pressure 1: 118/62 Code : 8480-6 BMI: 38.2 Code : 10852-1 Heart Rate 1 : 53 bpm Height: 5'10" SpO2: 93% Weight: 266 lbs 03/26/2017 Blood Pressure 1: 114/62 Code : 8480-6 BMI: 38.3 Code : 45135-3 Height: 5'10 " Weight: 267 lbs 03/22/2017 Blood Pressure 1: 122/64 Code : 8480-6 BMI: 40.0 Code : 98087-2 Heart Rate 1 : 52 bpm Height: 5'10" SpO2: 94% Weight: 279 lbs 03/08/2017 Blood Pressure 1: 124/70 Code : 8480-6 BMI: 39.4 Code : 50468-0 Heart Rate 1 : 51 bpm Height: 5'10" SpO2: 94% Weight: 274 lbs 8 oz 12/06/2016 Blood Pressure 1: 126/62 Code : 8480-6 BMI: 40.3 Code : 57216-5 Heart Rate 1 : 50 bpm Height: 5'10" SpO2: 94% Weight: 281 lbs 11/30/2016 Blood Pressure 1: 112/62 Code : 8480-6 BMI: 40.3 Code : 54467-9 Heart Rate 1 : 52 bpm Height: 5'10" SpO2: 93% Waist Measure (cm): 135 cm Weight: 281 lbs 11/28/2016 Blood Pressure 1: 132/72 Code : 8480-6 BMI: 40.3 Code : 77814-0 Heart Rate 1 : 50 bpm Height: 5'10" Weight: 281 lbs 05/04/2016 Blood Pressure 1: 128/78 Code : 8480-6 BMI: 38.5 Code : 59699-0 Heart Rate 1 : 74 bpm Height: 5'10" SpO2: 98% Weight: 268 lbs 8 oz 11/04/2015 Blood Pressure 1: 136/60 Code : 8480-6 BMI: 38.0 Code : 58797-2 Heart Rate 1 : 55 bpm Height: 5'10" SpO2: 94% Weight: 265 lbs 07/30/2015 Blood Pressure 1: 128/74 Code : 8480-6 BMI: 38.0 Code : 23343-4 Heart Rate 1 : 47 bpm Height: 5'10" SpO2: 97% Weight: 265 lbs 01/26/2015 Blood Pressure 1: 122/64 Code : 8480-6 BMI: 34.0 Code : 39326-7 Heart Rate 1 : 68 bpm Height: 5'10" Weight: 237 lbs Functional Status No Functional Status data History of Present Illness Symptom Name Status Result Effective Date Notes Quality chronic 10/04 None Limitation on Activities [...] data Encounters Encounter Performer Location Codes Date ([id number]) 00030 EST. PATIENT, LEVEL IV Diagnosis: Type 2 diabetes mellitus with foot ulcer[ICD10: E11.621] Diagnosis: Essential (primary) hypertension[ICD10: I10] Diagnosis: Malignant neoplasm of prostate[ICD10: C61] Diagnosis: Chronic obstructive pulmonary disease, unspecified[ICD10: J44.9] Diagnosis: Hypoxemia[ICD10: R09.02] Sarah Sanchez MD, [facility] CPT-4: 54470 10/04/2018 ([id number]) 70178 EST. PATIENT, LEVEL IV Diagnosis: Type 2 diabetes mellitus with hyperglycemia[ICD10: E11.65] Diagnosis: Essential (primary) hypertension[ICD10: I10] Diagnosis: Malignant neoplasm of prostate[ICD10: C61] Sarah Sanchez MD, [facility] CPT-4: 34180 08/29/2018 ([id number]) 82830 EST. PATIENT, LEVEL IV Diagnosis: Malignant neoplasm of prostate[ICD10: C61] Dorene Sanchez MD, [facility] CPT-4: 88501 02/25/2018 53211 EST. PATIENT, LEVEL IV Diagnosis: Generalized abdominal pain[ICD10: R10.84] Diagnosis: Unspecified jaundice[ICD10: R17] Diagnosis: Gross hematuria[ICD10: R31.0] Kiki Sanchez MD, [facility] CPT-4 : 86580 02/20/2018 ([id number]) 34526 EST. PATIENT, LEVEL IV Diagnosis: Type 2 diabetes mellitus with hyperglycemia[ICD10: E11.65] Diagnosis: Essential (primary) hypertension[ICD10: I10] Diagnosis: Chronic kidney disease, stage 3 (moderate)[ICD10: N18.3] Diagnosis: Chronic pain syndrome[ICD10: G89.4] Diagnosis: Other specified hypothyroidism[ICD10: E03.8] Diagnosis: Encounter for screening for malignant neoplasm of prostate[ICD10: Z12.5] Diagnosis: Encounter for immunization[ICD10: Z23] Sarah Sanchez MD, [facility] CPT-4: 42015 02/05/2018 ([id number]) 38032 EST. PATIENT, LEVEL IV Diagnosis: Type 2 diabetes mellitus with hyperglycemia[ICD10: E11.65] Diagnosis: Essential (primary) hypertension[ICD10: I10] Dorene Sanchez MD, [facility] CPT-4: 51158 11/08/2017 ([id number]) 29199 EST. PATIENT, LEVEL IV Diagnosis: Type 2 diabetes mellitus with hyperglycemia[ICD10: E11.65] Diagnosis: Chronic pain syndrome[ICD10: G89.4] Diagnosis: Essential (primary) hypertension[ICD10: I10] Diagnosis: Chronic kidney disease, stage 3 (moderate)[ICD10: N18.3] Diagnosis: Localized edema[ICD10: R60.0] Dorene Sanchez MD, [facility] CPT- 4: 82759 09/20/2017 ([id number]) 29084 EST. PATIENT, LEVEL III Diagnosis: Type 2 diabetes mellitus with hyperglycemia[ICD10: E11.65] Sarah Sanchez MD, [facility] CPT-4: 95889 06/25/2017 ([id number]) 79706 EST. PATIENT, LEVEL III Diagnosis: Cellulitis of left lower limb[ICD10: L03.116] Sarah Sanchez MD, [facility] CPT-4: 83493 06/07/2017 ([id number]) 40037 EST. PATIENT, LEVEL III Diagnosis: Localized edema[ICD10: R60.0] Diagnosis: Type 2 diabetes mellitus with foot ulcer[ICD10: E11.621] Sarah Sanchez MD , [facility] CPT-4: 40235 05/03/2017 ([id number]) 96419 EST. PATIENT, LEVEL III Diagnosis: Cellulitis of left lower limb[ICD10: L03.116] Diagnosis: Localized edema[ICD10: R60.0] Sarah Sanchez MD, [facility] CPT-4: 78626 04/02/2017 ([id number]) Miscellaneous no charge Diagnosis: Localized edema[ICD10: R60.0] Diagnosis: Cellulitis of left lower limb[ICD10: L03.116] Sarah Sanchez MD, [facility] CPT-4: 59996 03/26/2017 ([id number]) 72734 EST. 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 PATIENT, LEVEL IV Diagnosis: Type 2 diabetes mellitus with hyperglycemia[ICD10: E11.65] Diagnosis: Other specified hypothyroidism[ICD10: E03.8] Diagnosis: Essential (primary) hypertension[ICD10: I10] Sarah Sanchez MD, [facility] CPT-4: 47190 03/08/2017 ([id number]) 19005 EST. PATIENT, LEVEL III Diagnosis: Type 2 diabetes mellitus with hyperglycemia[ICD10: E11.65] Diagnosis: Other specified hypothyroidism[ICD10: E03.8] Sarah Sanchez MD, [facility] CPT-4: 00868 12/06/2016 ([id number]) 31693 EST. PATIENT, LEVEL IV Diagnosis: Essential (primary) hypertension[ICD10: I10] Diagnosis: Chronic kidney disease, stage 3 (moderate)[ICD10: N18.3] Dorene Sanchez MD, [facility] CPT-4: 75062 11/28/2016 ([id number]) 68496 EST. PATIENT, LEVEL IV Diagnosis: Essential (primary) hypertension[ICD10: I10] Diagnosis: Chronic pain syndrome[ICD10: G89.4] Diagnosis: Chronic kidney disease, stage 3 (moderate)[ICD10: N18.3] Diagnosis: Vitamin B12 deficiency anemia due to intrinsic factor deficiency[ ICD10: D51.0] Diagnosis: Other specified hypothyroidism[ICD10: E03.8] Dorene Sanchez MD, [facility] CPT-4: 18325 05/04/2016 [id number] EST. PATIENT, LEVEL III Diagnosis: Chronic pain syndrome[ICD10: G89.4] Diagnosis: Essential (primary) hypertension[ICD10: I10] Diagnosis: Other specified hypothyroidism[ICD10: E03.8] Kiki Sanchez MD, [facility] CPT-4: 43248 11/04/2015 78538 EST. PATIENT, LEVEL III Diagnosis: Chronic pain syndrome[ICD10: G89.4] Diagnosis: Essential (primary) hypertension[ICD10: I10] Kiki Sanchez MD, [facility] CPT-4: 87555 07/30/2015 ([id number]) OFFICE/OUTPATIENT VISIT NEW Diagnosis: ESSENTIAL HYPERTENSION[ICD9: 401.9] Diagnosis: HYPOTHYROIDISM[ICD9: 244.9] Diagnosis: ANEMIA[ICD9: 285.9] Diagnosis: Vitamin B12 deficiency[ICD9: 266.2] Diagnosis: CHRONIC PAIN SYNDROME[ICD9: 338.4] Diagnosis: Chronic renal insufficiency, stage III (moderate)[ICD9: 585.3] Diagnosis: GOUT[ICD9: 274.9] Dorene Sanchez MD, [facility] CPT-4: 23490 01/26/2015 Plan of Care Planned Activity Notes Codes Status Date Visit Plan: DM with peripheral neuropathy-paperwork completed for diabetic shoes and will fax to Dr Bauer HTN-controlled -no changes Lbotfvegm-DGMD-GNA-prostate cancer with mets- patient qualifies for oxygen-oxygen saturation dropped to 86% on room air during ambulation but increased to 99% on 2L NC at rest-will send orders to [facility] for continue oxygen at 2L per nasal cannula 10/04/2018 Appointment: Sarah Hernandes [facility]Ptel[phone] (30 min) Complex 10/04/2018 Patient Education: Patient [...] Dr Moreno 08/29/2018 Appointment: Sarah Hernandes WPtel: [phone] (15 min) Moderate 08/29/2018 Patient Education: Patient Medication Summary Completed 08/29/2018 Referral: Edgard Rivera MD WPtel: Via [address] with Dr. Moreno. Patient informed. Referral info faxed. Completed 02/27/2018 Visit Plan: Recurrent prostate cancer - I have recommended a referral to Dr. Rivera. We discussed the case at length today- he is not interested in extensive treatment, but if possible to extend his quantity and quality of life, he would like to try. 02/25/2018 App[facility]ment: [phone] [facility] (15 min) Moderate 02/25/2018 Patient Education: Patient Medication Summary Completed 02/25/2018 Care Plan: Referral Order SNOMED-CT : [id number] Pending 02/25/2018 Visit Plan: Intermittent abdominal pain, jaundice, itching - will check labs and treat as indicated - pt is to go to the ER with any acute change in symptoms or any acute concerns. 02/20/2018 Appointment: K[facility] Menjivar [facility] [phone] [phone] (30 min) Complex 02/20/2018 Patient Education: Patient [...] of control. 02/05/2018 Appointment: [facility] Hernandes [facility]el[facility] [phone] [phone] [place] (30 min) Complex 02/05/2018 Patient Education: [...] care surrogate. 11/30/2017 Appointment: [facility] Hernandes [facility]el[facility] [phone] [phone] [facility] - Annual Wellness Visit 11/30/2017 Patient [...] to 1.2 11/08/2017 Appointment: [facility]el[facility] [phone] [facility] (15 min) Moderate 11/08/2017 Patient Education: [...] of over-medication. 09/20/2017 Appointment: [facility]el[facility] [phone] [facility] [place] (15 min) Moderate 09/20/2017 Patient [...] glucose control. 06/25/2017 Appointment: [facility] Hernandes [facility]el[facility] [phone] [phone] [place] (30 min) Complex 06/25/2017 Patient Education: Patient Medication Summary Completed 06/25/2017 Appointment: Sarah Hernandes WPtel: [phone] [phone] [place] (30 min) Complex 06/22/2017 Visit Plan: Cellulitis - start oral antibiotics as previously directed, return to clinic as previously directed, call for acute change in symptoms, worsening redness, warmth, discharge. 06/07/2017 Appointment: Sarah Hernandes WPtel: [phone] [phone] [place] (30 min) Complex 06/07/2017 Patient Education: Patient Medication Summary Completed 06/07/2017 Patient Education: Obesity Completed 06/07/2017 Appointment: Dorene Sanchez WPtel: [phone] [facility] [place] (15 min) Moderate 05/31/2017 Visit Plan: Edema-significantly improved-no changes Ulcer- left lower leg and foot-seeing Dr Norwood at wound care-appt scheduled with Dr Frausto for vascular evaluation 05/03/2017 Appointment: Sarah Hernandes WPtel: [phone] [place] (15 min) Moderate 05/03/2017 Patient Education: Patient Medication Summary Completed 05/03/2017 Patient Education: Obesity Completed 05/03/2017 Visit Plan: Efnvlahdmw-lqmbkcpwk-ccxrwuv to finish abx-no further treatment indicated Edema-significantly improved-no longer weeping- continue unna boots twice weekly with home health 04/02/2017 Appointment: Sarah Hernandes WPtel: [phone] [place] (30 min) Complex 04/02/2017 Patient Education: Patient Medication Summary Completed 04/02/2017 Patient Education: Obesity Completed 04/02/2017 Visit Plan: Cellulitis-left leg-continue levaquin Edema- increase lasix/potassium-consult [facility] for unna boots/dressing changes 03/26/2017 Appointment: Sarah Hernandes WPtel: [phone] [place] (15 min) Moderate 03/26/2017 Patient [...] aleve 03/22/2017 Appointment: [facility] [phone] [phone] [place] (15 min) Moderate 03/22/2017 Patient Education: Patient [...] of control. 03/08/2017 Appointment: Sarah Hernandes WPtel: [phone] [phone] [place] (30 min) Complex 03/08/2017 Patient Education: Patient [...] surrogate. 11/30/2016 Appointment: [facility] Hernandes [facility]Ptel[facility] [phone] [phone] [place] [address] - Annual Wellness Visit 11/30/2016 Patient Education: [...] fluids. 11/28/2016 Appointment: [facility] Sanchez [facility]Ptel[facility] [phone] [facility] (15 min) Moderate 11/28/2016 Patient Education: [...] 01/26/2015 Referral: Edgard Rivera MD WPtel: [address] [place] [phone] [id number] [place] Referral Appointment Requested Instructions Comment . Chronic Pain Syndrome - pt has [...] with Dr Frausto for vascular evaluation . DM with peripheral neuropathy-paperwork completed for diabetic shoes and will fax to Dr Bauer HTN-controlled -no changes Korwgbtcy-HYXW-RTA-prostate cancer with mets- patient qualifies for oxygen- oxygen saturation dropped to 86% on room air during ambulation but increased to 99% on 2L NC at rest-will send orders to [facility] for continue oxygen at 2L per nasal cannula victoza 0.6mg daily . Diabetes Mellitus - [...] Josh [facility]ARP 13 TODAY- GIVEN IN OFFICE PREVNAR 23 IN ONE YEAR SHINGLES VACCINATION TO BE ADMINISTERED AT [facility] OBTAINING MEDICAL POWER OF LAST DIPPER AND LIVING WILL PATIENT DOES NOT HAVE [...] YEAR SHINGLES VACCINATION TO BE ADMINISTERED AT [facility] OBTAINING MEDICAL POWER OF LAST DIPPER AND LIVING WILL PATIENT DOES NOT HAVE [...] AND POTASSIUM TO TWICE DAILY [facility] . Cellulitis-left leg-continue levaquin Edema-increase lasix/potassium-consult [facility] for unna boots/dressing changes . Recurrent prostate [...] in symptoms or any acute concerns. . Vjkxklkoai-phwzmpiop-gthppzj to finish abx-no further treatment indicated Edema-significantly improved-no longer weeping-continue unna boots twice weekly with home health PREVNAR 13 TODAY- GIVEN IN OFFICE PREVNAR 23 IN ONE YEAR SHINGLES VACCINATION TO BE ADMINISTERED AT [facility] RECOMMEND OBTAINING MEDICAL POWER OF LAST DIPPER AND LIVING WILL PATIENT DOES NOT HAVE [...]
--- OUTSIDE RECORDS SUMMARY | 2018-11-26 11:45 | XMS REPORT | CCD ---
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 Name Role Phone PP Unavailable CCM Unavailable Summary Purpose Interface Exchange Insurance Providers Payer name Policy type / Coverage type Covered democrat ID Effective Begin Date Effective End Date WPS Medicare Part B Medicare Part B [id number] Unknown Unknown Family history Father Diagnosis Age At Onset Stroke Unknown Mother Diagnosis Age At Onset Stroke Unknown Diabetes mellitus Type 2 Unknown Social History Social History Element Codes Description Effective Dates Tobacco history SNOMED CT: 087041122 Currently uses smokeless tobacco Chews 05/04/2016 Marital status Unknown 01/26/2015 Number of children Unknown 3 01/26/2015 Employment Unknown Retired 01/26/[address]: 360761221 Never drinks alcohol quit in July 2014 [...] mL (0.083 %) solution for nebulization RxNorm: 575541 1 Milliliter(s) INH TID DX J44.9 10/04/2018 01/31/2019 Active gabapentin 100 mg capsule RxNorm: 480647 TAKE ONE CAPSULE BY MOUTH IN THE EVENING AT 5PM 09/24/2018 03/22/2019 Active oxycodone 20 mg tablet RxNorm: 6876405 1/2 Tablet(s) PO Q6 as needed 09/12/2018 10/11/2018 Active oxycodone 20 mg tablet RxNorm: 4877132 1/2 Tablet(s) PO Q6 as needed 08/15/2018 09/11/2018 Inactive oxycodone 20 mg tablet RxNorm: 6802417 1/2 Tablet(s) PO Q6 as needed 07/16/2018 08/14/2018 Inactive oxycodone 20 mg tablet RxNorm: 7176396 1/2 Tablet(s) PO Q6 as needed 06/14/2018 07/13/2018 Inactive gabapentin 100 mg capsule RxNorm: 292300 TAKE ONE CAPSULE BY MOUTH IN THE EVENING AT 5PM 05/30/2018 09/23/2018 Inactive oxycodone 20 mg tablet RxNorm: 7181482 1/2 Tablet(s) PO Q6 as needed 05/15/2018 06/13/2018 Inactive oxycodone 20 mg tablet RxNorm: 3506010 1/2 Tablet(s) PO Q6 as needed 04/12/2018 05/11/2018 Inactive oxycodone 20 mg tablet RxNorm: 0869539 1/2 Tablet(s) PO Q6 as needed 03/11/2018 04/09/2018 Inactive levothyroxine 200 mcg tablet RxNorm: 984474 1 Tablet(s) PO daily 02/21/2018 02/15/2019 Active Cipro 500 mg tablet RxNorm: 329818 1 Tablet(s) PO BID 201702/20/2018 Inactive levothyroxine 200 mcg tablet RxNorm: 678686 1 Tablet(s) PO daily 02/21/2018 02/20/2018 Inactive Cipro 500 mg tablet RxNorm: 064709 1 Tablet(s) PO BID 201703/02/2018 Inactive oxycodone 20 mg tablet RxNorm: 4749725 1/2 Tablet(s) PO Q6 as needed 02/12/2018 03/10/2018 Inactive oxycodone 20 mg tablet RxNorm: 3701335 1/2 Tablet(s) PO Q6 as needed 01/16/2018 02/11/2018 Inactive gabapentin 100 mg capsule RxNorm: 374360 TAKE ONE CAPSULE BY MOUTH IN THE EVENING AT 5PM 01/15/2018 05/29/2018 Inactive bisoprolol 5 mg-hydrochlorothiazide 6.25 mg tablet RxNorm: 828333 TAKE ONE TABLET BY MOUTH DAILY 01/01/2018 12/26/2018 Active oxycodone 20 mg tablet RxNorm: 8489216 1/2 Tablet(s) PO Q6 as needed 12/20/2017 01/14/2018 Inactive oxycodone 20 mg tablet RxNorm: 1590420 1/2 Tablet(s) PO Q6 as needed 11/20/2017 12/19/2017 Inactive Victoza 2-Dino 0.6 mg/0.1 mL (18 mg/3 mL) subcutaneous pen injector RxNorm: 116968 1.2 Milligram(s) SQ daily 11/08/201712/07 Inactive oxycodone 20 mg tablet RxNorm: 1131115 1/2 Tablet(s) PO Q6 as needed 10/19/2017 11/17/2017 Inactive Lasix 20 mg tablet RxNorm: 559632 1 Tablet(s) QAM at 5pm 12/201703/18/2018 Inactive gabapentin 100 mg capsule RxNorm: 802317 1 Capsule(s) PO QPM at 5 pm 09/20/2017 01/14/2018 Inactive oxycodone 20 mg tablet RxNorm: 1218480 1/2 Tablet(s) PO Q6 as needed 09/18/2017 10/17/2017 Inactive oxycodone 20 mg tablet RxNorm: 1265188 1/2 Tablet(s) PO Q6 as needed 08/14/2017 09/12/2017 Inactive ketoconazole 2 % topical cream RxNorm: 943673 1 Gram(s) TOP BID to affected area until healed 08/03/2017 No Stop Date Active oxycodone 20 mg tablet RxNorm: 2537523 1/2 Tablet(s) PO Q6 as needed 07/17/2017 08/13/2017 Inactive pen needle, diabetic 31 gauge x 5/16" RxNorm: 1 Unit Dose Miscellaneous daily 06/25/2017 03/21/2018 Inactive daily use with victoza Bactrim DS 800 mg-160 mg tablet RxNorm: 451283 1 Tablet(s) PO BID Dr Norwood 06/25/2017 07/04/2017 Inactive Victoza 2-Dino 0.6 mg/0.1 mL (18 mg/3 mL) subcutaneous pen injector RxNorm: 443631 0.6 Milligram(s) SQ daily 06/25/201707/24 Inactive doxycycline hyclate 100 mg tablet RxNorm: 362377 1 Tablet(s) PO BID Dr Norwood 06/21/2017 06/30/2017 Inactive oxycodone 20 mg tablet RxNorm: 8413874 1/2 Tablet(s) PO Q6 as needed 06/14/2017 07/13/2017 Inactive clindamycin 150 mg capsule RxNorm: 135061 1 Capsule(s) PO Q8 06/16/2017 Inactive levothyroxine 175 mcg tablet RxNorm: 298680 TAKE ONE TABLET BY MOUTH DAILY 06/04/2017 09/01/2017 Inactive levothyroxine 175 mcg tablet RxNorm: 781644 TAKE ONE TABLET BY MOUTH DAILY 06/04/2017 11/30/2017 Inactive bisoprolol 5 mg-hydrochlorothiazide 6.25 mg tablet RxNorm: 101990 TAKE ONE TABLET BY MOUTH DAILY 05/24/2017 11/19/2017 Inactive oxycodone 20 mg tablet RxNorm: 1252473 1/2 Tablet(s) PO Q6 as needed 05/14/2017 06/12/2017 Inactive potassium chloride ER 10 mEq capsule,extended release RxNorm: 777995 TAKE ONE CAPSULE BY MOUTH DAILY NEEDED FOR 5 DAYS THEN NEEDED WITH LASIX 04/17/2017 10/13/2017 Inactive Lasix 20 mg tablet RxNorm: 473615 TAKE ONE TABLET BY MOUTH DAILY NEEDED 04/17/2017 09/19/2017 Inactive oxycodone 20 mg tablet RxNorm: 9070898 1/2 Tablet(s) PO Q6 as needed 04/12/2017 05/11/2017 Inactive Colcrys 0.6 mg tablet RxNorm: 884753 2 tabs at onset then may repeat 1 tab in 1 hours if needed- Tablet(s) PO 04/09/2017 No Stop Date Active then take daily until gout resolved Bactrim DS 800 mg-160 mg tablet RxNorm: 483243 1 Tablet(s) PO BID 04/09/2017 04/08/2017 Inactive dc levaquin Bactrim DS 800 mg-160 mg tablet RxNorm: 554977 1 Tablet(s) PO BID 04/09/2017 04/15/2017 Inactive dc levaquin Levaquin 500 mg tablet RxNorm: 882074 1 Tablet(s) PO daily 04/02/2017 Inactive Levaquin 500 mg tablet RxNorm: 013282 1 Tablet(s) PO daily 06/06/2017 Inactive indomethacin 25 mg capsule RxNorm: 591004 1 Capsule(s) PO TID PRN 03/22/2017 03/22/2017 Inactive Lasix 20 mg tablet RxNorm: 638788 1 Tablet(s) PO QDAY PRN 02/201704/16/2017 Inactive daily x 5 days then as needed Levaquin 500 mg tablet RxNorm: 968505 1 Tablet(s) PO daily 02/201703/31/2017 Inactive potassium chloride ER 10 mEq capsule,extended release RxNorm: 269743 1 Capsule(s) PO QDAY PRN 03/22/2017 04/16/2017 Inactive daily x 5 days then as needed with lasix oxycodone 20 mg tablet RxNorm: 5939630 1/2 Tablet(s) PO Q6 as needed 03/08/2017 04/06/2017 Inactive bisoprolol 5 mg-hydrochlorothiazide 6.25 mg tablet RxNorm: 788894 TAKE ONE TABLET BY MOUTH DAILY 02/14/2017 05/14/2017 Inactive oxycodone 20 mg tablet RxNorm: 7391420 1/2 Tablet(s) PO Q6 as needed 02/08/2017 03/07/2017 Inactive oxycodone 20 mg tablet RxNorm: 2903510 1/2 Tablet(s) PO Q6 as needed 01/08/2017 02/06/2017 Inactive levothyroxine 175 mcg tablet RxNorm: 383256 1 Tablet(s) PO daily 12/06/2016 06/03/2017 Inactive [SAVINGS FOR NON-COVERED DRUGS -- BIN:[id number], PCN: ASPROD1, Group: XXXXX, ID# XXXXXXX, Questions: . THIS IS NOT INSURANCE.] oxycodone 20 mg tablet RxNorm: 5851286 1/2 Tablet(s) PO Q6 as needed 12/04/2016 01/02/2017 Inactive oxycodone 20 mg tablet RxNorm: 8551854 1/2 Tablet(s) PO Q6 as needed 11/09/2016 12/03/2016 Inactive bisoprolol 5 mg-hydrochlorothiazide 6.25 mg tablet RxNorm: 753713 TAKE ONE TABLET BY MOUTH DAILY 11/08/2016 02/05/2017 Inactive oxycodone 20 mg tablet RxNorm: 8695194 1/2 Tablet(s) PO Q6 as needed 10/05/2016 11/03/2016 Inactive oxycodone 20 mg tablet RxNorm: 0812934 1/2 Tablet(s) PO Q6 as needed 09/06/2016 10/04/2016 Inactive oxycodone 20 mg tablet RxNorm: 2920679 1/2 Tablet(s) PO Q6 as needed 08/07/2016 09/05/2016 Inactive oxycodone 20 mg tablet RxNorm: 3673064 1/2 Tablet(s) PO Q6 as needed 07/04/2016 08/06/2016 Inactive oxycodone 20 mg tablet RxNorm: 4762771 1/2 Tablet(s) PO Q6 as needed 05/29/2016 07/03/2016 Inactive levothyroxine 150 mcg tablet RxNorm: 193948 1 Tablet(s) PO daily 04/10/2016 04/09/2016 Inactive [SAVINGS FOR NON-COVERED DRUGS -- BIN:[id number], PCN: ASPROD1, Group: XXXXX, ID# XXXXXXX, Questions: . THIS IS NOT INSURANCE.] oxycodone 20 mg tablet RxNorm: 4208055 1/2 Tablet(s) PO Q6 as needed 04/10/2016 05/28/2016 Inactive levothyroxine 150 mcg tablet RxNorm: 217472 1 Tablet(s) PO daily 04/10/2016 10/06/2016 Inactive [SAVINGS FOR NON-COVERED DRUGS -- BIN:075490, PCN: ASPROD1, Group: XXXXX, ID# XXXXXXX, Questions: . THIS IS NOT INSURANCE.] bisoprolol 5 mg-hydrochlorothiazide 6.25 mg tablet RxNorm: 016618 1 Tablet(s) PO daily 02/16/2016 12/31/2017 Inactive oxycodone 20 mg tablet RxNorm: 6406185 1/2 Tablet(s) PO Q6 as needed 02/16/2016 04/09/2016 Inactive oxycodone 20 mg tablet RxNorm: 4297355 1/2 Tablet(s) PO Q6 as needed 01/04/2016 02/15/2016 Inactive bisoprolol 5 mg-hydrochlorothiazide 6.25 mg tablet RxNorm: 007864 1 Tablet(s) PO daily 11/19/2015 01/17/2016 Inactive bisoprolol 5 mg-hydrochlorothiazide 6.25 mg tablet RxNorm: 159460 1 Tablet(s) PO daily 11/04/2015 11/18/2015 Inactive oxycodone 20 mg tablet RxNorm: 4560216 1/2 Tablet(s) PO Q6 as needed 10/27/2015 01/03/2016 Inactive levothyroxine 150 mcg tablet RxNorm: 524575 1 Tablet(s) PO daily 08/26/2015 02/21/2016 Inactive [SAVINGS FOR NON-COVERED DRUGS -- BIN:[id number], PCN: ASPROD1, Group: XXXXX, ID# XXXXXXX, Questions: . THIS IS NOT INSURANCE.] bisoprolol 5 mg-hydrochlorothiazide 6.25 mg tablet RxNorm: 434635 1 Tablet(s) PO daily 08/26/2015 10/24/2015 Inactive oxycodone 10 mg tablet RxNorm: 1636669 1 Tablet(s) PO Q6 as needed 05/06/2015 10/26/2015 Inactive levothyroxine 150 mcg tablet RxNorm: 152578 1 Tablet(s) PO daily 02/05/2015 08/03/2015 Inactive [SAVINGS FOR NON-COVERED DRUGS -- BIN:386155, PCN: ASPROD1, Group: XXXXX, ID# [id number], Questions: . THIS IS NOT INSURANCE.] Vitamin D2 50,000 unit capsule RxNorm: 130852 1 Capsule(s) PO weekly 02/05/2015 05/05/2015 Inactive [SAVINGS FOR NON-COVERED DRUGS -- BIN:694350, PCN: ASPROD1, Group: XXXXX, ID# XXXXXXX, Questions: . THIS IS NOT INSURANCE.] Vitamin D2 50,000 unit capsule RxNorm: 574008 1 Capsule(s) PO weekly 02/05/2015 02/04/2015 Inactive bisoprolol 5 mg-hydrochlorothiazide 6.25 mg tablet RxNorm: 764562 1 Tablet(s) PO daily 01/26/2015 02/24/2015 Inactive levothyroxine 200 mcg tablet RxNorm: 406513 1 Tablet(s) PO daily 01/26/2015 01/25/2015 Inactive levothyroxine 200 mcg tablet RxNorm: 041317 1 Tablet(s) PO every other day 01/26/2015 02/04/2015 Inactive [SAVINGS FOR NON-COVERED DRUGS -- BIN:996491, PCN: ASPROD1, Group: XXXXX, ID# XXXXXXX, Questions: . THIS IS NOT INSURANCE.] aspirin 81 mg chewable tablet RxNorm: 915102 1 Tablet(s) PO daily No Start Date Active Plavix 75 mg tablet RxNorm: 918161 1 Tablet(s) PO daily manage by Dr Baig No Start Date Active simvastatin 40 mg tablet RxNorm: 888141 1 Tablet(s) PO QHS managed by Dr Baig No Start Date Active Colcrys 0.6 mg tablet RxNorm: 251541 2 tabs at onset then may repeat 1 tab in 1 hours if needed- Tablet(s) PO No Start Date 04/08/2017 Inactive then take daily until gout resolved aspirin 325 mg tablet RxNorm: 151255 1 Tablet(s) PO daily No Start Date 05/03/2016 Inactive levothyroxine 75 mcg tablet RxNorm: 057075 1 Tablet(s) PO every other day No Start Date 02/04/2015 Inactive takes qod with 200mcg oxycodone 10 mg tablet RxNorm: 3921863 1 Tablet(s) PO Q6 as needed No Start Date 05/05/2015 Inactive ketoconazole 2 % topical cream RxNorm: 586935 1 Gram(s) TOP BID to affected area [...] (primary) hypertension ICD-10: I10 ICD-9: 401.9 09/20/2017 Localized edema ICD-10: R60.0 ICD-9: 782.3 09/20/2017 Cellulitis of left lower limb ICD-10: [...] Code Item Item Code Result Date %Hba1C Tqo503 % HbA1c 04630-4 6.4 % 08/30/2018 %Hba1C Tei067 Gluc Ave 137 mg/dL 08/30/2018 Culture Urine [id number] URINE CULTURE SEE NOTES 02/22/2018 Urine Culture [...] 24.5 pg 02/20/2018 Cbc With Differential Ord2 Collin% 8.9 % 02/20/2018 Cbc With Differential Ord2 [...] 0.81 K/ul 02/20/2018 Cbc With Differential Ord2 Collin ABS# 0.7 K/ul 02/20/2018 Cbc With Differential Ord2 Eos ABS# 0.4 K/ul 02/20/2018 Cbc With Differential Ord2 Baso ABS# 0.0 K/ul 02/20/2018 %Hba1C Xdv993 % HbA1c 44657-2 7.7 % 02/20/2018 %Hba1C Mla480 Gluc Ave 174 mg/dL 02/20/2018 Lipase Sgp359 LIPASE 17 U/L 02/20/2018 Microalbumin Sfd441 MicroAlb 6.5 mg/dL 02/20/2018 Amylase Ord34 AMYLASE 15 U/L 02/20/2018 Free T4 Byo065 FREE T4 0.61 ng/dL 02/20/2018 Lipid Ord30 CHOL 203 mg/dL 02/20/2018 Lipid Ord30 HDL 7.0 mg/dl 02/20/2018 Lipid Ord30 TRIG 271 mg/dL 02/20/2018 Lipid Ord30 LDL 142 mg/dL 02/20/2018 Lipid Ord30 C/HDL 29.0 Ratio 02/20/2018 Comp Metabolic Zns436 NA 134 mEq/L 02/20/2018 Comp Metabolic Lbm948 K 3.6 mEq/L 02/20/2018 Comp Metabolic Nba172 CL 96 mEq/L 02/20/2018 Comp Metabolic Vrj049 CO2 29.0 mEq/L 02/20/2018 Comp Metabolic Vaz286 ANION GAP 13 02/20/2018 Comp Metabolic Hzc059 GLUCOSE 165 mg/dL 02/20/2018 Comp Metabolic Uqw934 Creat 1.2 mg/dL 02/20/2018 Comp Metabolic Irn983 eGFR 63 ml/min/1.73m2 02/20/2018 Comp Metabolic Qkf324 BUN 14 mg/dL 02/20/2018 Comp Metabolic Gkj372 B/C Ratio 11.6 Ratio 02/20/2018 Comp Metabolic Kmv965 CALCIUM 8.5 mg/dL 02/20/2018 Comp Metabolic Qui822 ALK PHOS 633 U/L 02/20/2018 Comp Metabolic Hvl252 AST(SGOT) 112 U/L 02/20/2018 Comp Metabolic Nio957 ALT(SGPT) 148 U/L 02/20/2018 Comp Metabolic Bxf322 BILI T 6.8 mg/dL 02/20/2018 Comp Metabolic Rzm339 ALBUMIN 3.3 g/dL 02/20/2018 Comp Metabolic Tpe702 TPRO 5.9 g/dL 02/20/2018 Comp Metabolic Spp673 GLOB 2.6 g/dL 02/20/2018 Comp Metabolic Hea212 A/G Ratio 1.3 Ratio 02/20/2018 Comp Metabolic Vud991 Osmo 272 mOsmo 02/20/2018 Total Psa Ord10 [...] Metabolic Ord15 CALCIUM 9.2 mg/dL 11/09/2017 %Hba1C Mpj079 % HbA1c 71723-4 8.0 % 11/09/2017 %Hba1C Oab835 Gluc Ave 183 mg/dL 11/09/2017 Metabolic Ord15 [...] Ord15 CALCIUM 8.7 mg/dL 06/25/2017 Culture Wound [id number] WOUND CULTURE SEE NOTES 04/09/2017 Culture Wound [id number] Continued Results 04/09/2017 Amylase Ord34 AMYLASE 19 [...] 27.9 pg 03/22/2017 Cbc With Differential Ord2 Collin% 8.3 % 03/22/2017 Cbc With Differential Ord2 [...] 1.35 K/ul 03/22/2017 Cbc With Differential Ord2 Collin ABS# 1.4 K/ul 03/22/2017 Cbc With Differential Ord2 Eos ABS# 0.2 K/ul 03/22/2017 Cbc With Differential Ord2 Baso ABS# 0.0 K/ul 03/22/2017 Comp Metabolic Hso619 NA 134 mEq/L 03/22/2017 Comp Metabolic Pau442 K 4.5 mEq/L 03/22/2017 Comp Metabolic Yau102 CL 93 mEq/L 03/22/2017 Comp Metabolic Ufw015 CO2 31.0 mEq/L 03/22/2017 Comp Metabolic Jgq239 ANION GAP 15 03/22/2017 Comp Metabolic Hlc451 GLUCOSE 198 mg/dL 03/22/2017 Comp Metabolic Odi445 Creat 1.5 mg/dL 03/22/2017 Comp Metabolic Cqn623 eGFR 50 ml/min/1.73m2 03/22/2017 Comp Metabolic Hqc590 BUN 32 mg/dL 03/22/2017 Comp Metabolic Zhm699 B/C Ratio 21.6 Ratio 03/22/2017 Comp Metabolic Uay255 CALCIUM 8.4 mg/dL 03/22/2017 Comp Metabolic Lwv888 ALK PHOS 245 U/L 03/22/2017 Comp Metabolic Ybj017 AST(SGOT) 18 U/L 03/22/2017 Comp Metabolic Vyh644 ALT(SGPT) 17 U/L 03/22/2017 Comp Metabolic Zdv459 BILI T 0.8 mg/dL 03/22/2017 Comp Metabolic Txg282 ALBUMIN 2.9 g/dL 03/22/2017 Comp Metabolic Bii192 TPRO 6.3 g/dL 03/22/2017 Comp Metabolic Oep180 GLOB 3.4 g/dL 03/22/2017 Comp Metabolic Svm905 A/G Ratio 0.8 Ratio 03/22/2017 Comp Metabolic Heg162 Osmo 281 mOsmo 03/22/2017 Lipase Qbn191 LIPASE 12 U/L 03/22/2017 Comp Metabolic Brh463 NA 142 mEq/L 03/09/2017 Comp Metabolic Sdq762 K 4.8 mEq/L 03/09/2017 Comp Metabolic Gni074 CL 103 mEq/L 03/09/2017 Comp Metabolic Sfp339 CO2 30.0 mEq/L 03/09/2017 Comp Metabolic Qbe859 ANION GAP 14 03/09/2017 Comp Metabolic Lqb743 GLUCOSE 152 mg/dL 03/09/2017 Comp Metabolic Zmx481 Creat 1.3 mg/dL 03/09/2017 Comp Metabolic Vrq605 eGFR 56 ml/min/1.73m2 03/09/2017 Comp Metabolic Cyk505 BUN 23 mg/dL 03/09/2017 Comp Metabolic Hqr758 B/C Ratio 17.3 Ratio 03/09/2017 Comp Metabolic Lgk518 CALCIUM 8.5 mg/dL 03/09/2017 Comp Metabolic Mmz046 ALK PHOS 97 U/L 03/09/2017 Comp Metabolic Rrf932 AST(SGOT) 10 U/L 03/09/2017 Comp Metabolic Sva237 ALT(SGPT) 6 U/L 03/09/2017 Comp Metabolic Cps222 BILI T 0.4 mg/dL 03/09/2017 Comp Metabolic Eyz021 ALBUMIN 3.4 g/dL 03/09/2017 Comp Metabolic Mmp640 TPRO 6.2 g/dL 03/09/2017 Comp Metabolic Gwi852 GLOB 2.8 g/dL 03/09/2017 Comp Metabolic Ugq768 A/G Ratio 1.2 Ratio 03/09/2017 Comp Metabolic Tfx823 Osmo 290 mOsmo 03/09/2017 Free T4 Wol258 FREE T4 0.86 ng/dL 03/08/2017 Cbc With [...] 28.2 pg 03/08/2017 Cbc With Differential Ord2 Collin% 8.7 % 03/08/2017 Cbc With Differential Ord2 [...] 1.63 K/ul 03/08/2017 Cbc With Differential Ord2 Collin ABS# 0.9 K/ul 03/08/2017 Cbc With Differential Ord2 Eos ABS# 0.5 K/ul 03/08/2017 Cbc With Differential Ord2 Baso ABS# 0.0 K/ul 03/08/2017 Tsh Ord6 hTSH II 4.52 uIU/mL 03/08/2017 %Hba1C Lni623 % HbA1c 26742-3 8.5 % 03/08/2017 %Hba1C Jaw621 Gluc Ave 197 mg/dL 03/08/2017 %Hba1C Gbd531 % HbA1c 85076-4 9.8 % 12/04/2016 %Hba1C Zsc552 Gluc Ave 235 mg/dL 12/04/2016 Tsh Ord6 hTSH II 10.65 uIU/mL 11/30/2016 Comp Metabolic Baj836 NA 134 mEq/L 11/30/2016 Comp Metabolic Gsc365 K 5.0 mEq/L 11/30/2016 Comp Metabolic Yuh090 CL 95 mEq/L 11/30/2016 Comp Metabolic Cym152 CO2 34.0 mEq/L 11/30/2016 Comp Metabolic Tzp452 ANION GAP 10 11/30/2016 Comp Metabolic Dcv408 GLUCOSE 226 mg/dL 11/30/2016 Comp Metabolic Vrm434 Creat 1.3 mg/dL 11/30/2016 Comp Metabolic Ymt647 eGFR 56 ml/min/1.73m2 11/30/2016 Comp Metabolic Orw545 BUN 21 mg/dL 11/30/2016 Comp Metabolic Exp872 B/C Ratio 15.7 Ratio 11/30/2016 Comp Metabolic Qpt073 CALCIUM 8.9 mg/dL 11/30/2016 Comp Metabolic Ysc140 ALK PHOS 112 U/L 11/30/2016 Comp Metabolic Tdo315 AST(SGOT) 9 U/L 11/30/2016 Comp Metabolic Cgg678 ALT(SGPT) 7 U/L 11/30/2016 Comp Metabolic Wod609 BILI T 0.6 mg/dL 11/30/2016 Comp Metabolic Omr003 ALBUMIN 3.6 g/dL 11/30/2016 Comp Metabolic Hrp069 TPRO 6.4 g/dL 11/30/2016 Comp Metabolic Vrl144 GLOB 2.9 g/dL 11/30/2016 Comp Metabolic Wkp988 A/G Ratio 1.2 Ratio 11/30/2016 Comp Metabolic Bit423 Osmo 278 mOsmo 11/30/2016 Lipid Ord30 CHOL [...] 30.6 pg 11/30/2016 Cbc With Differential Ord2 Collin% 7.9 % 11/30/2016 Cbc With Differential Ord2 [...] 1.34 K/ul 11/30/2016 Cbc With Differential Ord2 Collin ABS# 0.8 K/ul 11/30/2016 Cbc With Differential Ord2 Eos ABS# 0.3 K/ul 11/30/2016 Cbc With Differential Ord2 Baso ABS# 0.0 K/ul 11/30/2016 Free T4 Ijm021 FREE T4 0.89 ng/dL 11/30/2016 Review of [...] Codes Date ADMIN PNEUMOCOCCAL VACCINE SNOMED CT: 23659827 CPT-4: G0009 02/05/2018 Pneumococcal Polysaccharide Vaccine, 23-Valent, Ad CPT-4: 76775 02/05/2018 PPPS, SUBSEQ VISIT CPT -4: G0439 11/30/2017 URINALYSIS NONAUTO W/O SCOPE CPT-4: 22049 03/22/2017 URINALYSIS NONAUTO W/O SCOPE CPT-4: 18724 03/21/2017 PPPS, SUBSEQ VISIT CPT -4: G0439 11/30/2016 PNEUMOCOCCAL VACC 13 JAVIER IM Formatting Model/CDA Sections, Assigned to SNOMED CT: 86347588 CPT-4: 93569Bvmwrjl 11/30/2016 ADMIN PNEUMOCOCCAL VACCINE SNOMED CT: 94576327 CPT-4: G0009 11/30/2016 Vital Signs Date Vital 10/04/2018 Blood Pressure 1: 120/70 Code : 8480-6 Height: 5'10" SpO2: 96% 08/29/2018 Blood Pressure 1: 104/60 Code : 8480-6 BMI: 34.6 Code : 46984-0 Heart Rate 1 : 68 bpm Height: 5'10" SpO2: 98% Weight: 241 lbs 02/25/2018 Blood Pressure 1: 120/70 Code : 8480-6 BMI: 37.0 Code : 52635-6 Heart Rate 1 : 51 bpm Height: 5'10" SpO2: 97% Weight: 258 lbs 02/20/2018 Blood Pressure 1: 124/70 Code : 8480-6 BMI: 38.0 Code : 55134-5 Heart Rate 1 : 60 bpm Height: 5'10" SpO2: 96% Weight: 265 lbs 02/05/2018 Blood Pressure 1: 116 Code : 8480-6 BMI: 38.0 Code : 84652-3 Heart Rate 1 : 63 bpm Height: 5'10" SpO2: 98% Weight: 265 lbs 11/30/2017 Blood Pressure 1: 132/60 Code : 8480-6 BMI: 37.0 Code : 40282-7 Heart Rate 1 : 100 bpm Height: 5'10 " SpO2: 96% Waist Measure (cm): 122 cm Weight: 258 lbs 11/08/2017 Blood Pressure 1: 126/64 Code : 8480-6 BMI: 37.2 Code : 93828-2 Heart Rate 1 : 92 bpm Height: 5'10" SpO2: 94% Weight: 259 lbs 09/20/2017 Blood Pressure 1: 122/68 Code : 8480-6 BMI: 36.9 Code : 44336-3 Heart Rate 1 : 57 bpm Height: 5'10" SpO2: 96% Weight: 257 lbs 06/25/2017 Blood Pressure 1: 124/68 Code : 8480-6 BMI: 37.0 Code : 05787-5 Height: 5'10 " Weight: 258 lbs 06/07/2017 Blood Pressure 1: 122/64 Code : 8480-6 BMI: 37.0 Code : 97551-6 Heart Rate 1 : 60 bpm Height: 5'10" SpO2: 94% Temperature: 36.4 (C) / 97.6 (F) Weight: 258 lbs 05/03/2017 Blood Pressure 1: 118/74 Code : 8480-6 BMI: 38.2 Code : 65473-7 Heart Rate 1 : 52 bpm Height: 5'10" SpO2: 98% Weight: 266 lbs 04/02/2017 Blood Pressure 1: 118/62 Code : 8480-6 BMI: 38.2 Code : 60695-3 Heart Rate 1 : 53 bpm Height: 5'10" SpO2: 93% Weight: 266 lbs 03/26/2017 Blood Pressure 1: 114/62 Code : 8480-6 BMI: 38.3 Code : 87570-3 Height: 5'10 " Weight: 267 lbs 03/22/2017 Blood Pressure 1: 122/64 Code : 8480-6 BMI: 40.0 Code : 35930-0 Heart Rate 1 : 52 bpm Height: 5'10" SpO2: 94% Weight: 279 lbs 03/08/2017 Blood Pressure 1: 124/70 Code : 8480-6 BMI: 39.4 Code : 55432-8 Heart Rate 1 : 51 bpm Height: 5'10" SpO2: 94% Weight: 274 lbs 8 oz 12/06/2016 Blood Pressure 1: 126/62 Code : 8480-6 BMI: 40.3 Code : 66624-9 Heart Rate 1 : 50 bpm Height: 5'10" SpO2: 94% Weight: 281 lbs 11/30/2016 Blood Pressure 1: 112/62 Code : 8480-6 BMI: 40.3 Code : 53773-9 Heart Rate 1 : 52 bpm Height: 5'10" SpO2: 93% Waist Measure (cm): 135 cm Weight: 281 lbs 11/28/2016 Blood Pressure 1: 132/72 Code : 8480-6 BMI: 40.3 Code : 86094-0 Heart Rate 1 : 50 bpm Height: 5'10" Weight: 281 lbs 05/04/2016 Blood Pressure 1: 128/78 Code : 8480-6 BMI: 38.5 Code : 12570-7 Heart Rate 1 : 74 bpm Height: 5'10" SpO2: 98% Weight: 268 lbs 8 oz 11/04/2015 Blood Pressure 1: 136/60 Code : 8480-6 BMI: 38.0 Code : 99233-0 Heart Rate 1 : 55 bpm Height: 5'10" SpO2: 94% Weight: 265 lbs 07/30/2015 Blood Pressure 1: 128/74 Code : 8480-6 BMI: 38.0 Code : 26477-3 Heart Rate 1 : 47 bpm Height: 5'10" SpO2: 97% Weight: 265 lbs 01/26/2015 Blood Pressure 1: 122/64 Code : 8480-6 BMI: 34.0 Code : 94003-0 Heart Rate 1 : 68 bpm Height: [...] data Encounters Encounter Performer Location Codes Date ([id number]) 16101 EST. PATIENT, LEVEL IV Diagnosis: Type 2 diabetes mellitus with foot ulcer[ICD10: E11.621] Diagnosis: Essential (primary) hypertension[ICD10: I10] Diagnosis: Malignant neoplasm of prostate[ICD10: C61] Diagnosis: Chronic obstructive pulmonary disease, unspecified[ICD10: J44.9] Diagnosis: Hypoxemia[ICD10: R09.02] Sarah Sanchez MD, [facility] CPT-4: 61586 10/04/2018 ([id number]) 30633 EST. PATIENT, LEVEL IV Diagnosis: Type 2 diabetes mellitus with hyperglycemia[ICD10: E11.65] Diagnosis: Essential (primary) hypertension[ICD10: I10] Diagnosis: Malignant neoplasm of prostate[ICD10: C61] Sarah Sanchez MD, [facility] CPT-4: 71527 08/29/2018 ([id number]) 30495 EST. PATIENT, LEVEL IV Diagnosis: Malignant neoplasm of prostate[ICD10: C61] Dorene Sanchez MD, [facility] CPT-4: 15160 02/25/2018 07538 EST. PATIENT, LEVEL IV Diagnosis: Generalized abdominal pain[ICD10: R10.84] Diagnosis: Unspecified jaundice[ICD10: R17] Diagnosis: Gross hematuria[ICD10: R31.0] Kiki Sanchez MD, [facility] CPT-4 : 11802 02/20/2018 ([id number]) 10639 EST. PATIENT, LEVEL IV Diagnosis: Type 2 diabetes mellitus with hyperglycemia[ICD10: E11.65] Diagnosis: Essential (primary) hypertension[ICD10: I10] Diagnosis: Chronic kidney disease, stage 3 (moderate)[ICD10: N18.3] Diagnosis: Chronic pain syndrome[ICD10: G89.4] Diagnosis: Other specified hypothyroidism[ICD10: E03.8] Diagnosis: Encounter for screening for malignant neoplasm of prostate[ICD10: Z12.5] Diagnosis: Encounter for immunization[ICD10: Z23] Sarah Sanchez MD, [facility] CPT-4: 33066 02/05/2018 ([id number]) 73007 EST. PATIENT, LEVEL IV Diagnosis: Type 2 diabetes mellitus with hyperglycemia[ICD10: E11.65] Diagnosis: Essential (primary) hypertension[ICD10: I10] Dorene Sanchez MD, [facility] CPT-4: 85024 11/08/2017 ([id number]) 15234 EST. PATIENT, LEVEL IV Diagnosis: Type 2 diabetes mellitus with hyperglycemia[ICD10: E11.65] Diagnosis: Chronic pain syndrome[ICD10: G89.4] Diagnosis: Essential (primary) hypertension[ICD10: I10] Diagnosis: Chronic kidney disease, stage 3 (moderate)[ICD10: N18.3] Diagnosis: Localized edema[ICD10: R60.0] Dorene Sanchez MD, [facility] CPT- 4: 95800 09/20/2017 ([id number]) 99040 EST. PATIENT, LEVEL III Diagnosis: Type 2 diabetes mellitus with hyperglycemia[ICD10: E11.65] Sarah Sanchez MD, [facility] CPT-4: 76030 06/25/2017 ([id number]) [address]39 EST. PATIENT, LEVEL III Diagnosis: Cellulitis of left lower limb[ICD10: L03.116] Sarah Sanchez MD, [facility] CPT-4: 00785 06/07/2017 ([id number]) 77183 EST. PATIENT, LEVEL III Diagnosis: Localized edema[ICD10: R60.0] Diagnosis: Type 2 diabetes mellitus with foot ulcer[ICD10: E11.621] Sarah Sanchez MD , [facility] CPT-4: 88959 05/03/2017 ([id number]) 14110 EST. PATIENT, LEVEL III Diagnosis: Cellulitis of left lower limb[ICD10: L03.116] Diagnosis: Localized edema[ICD10: R60.0] Sarah Sanchez MD, [facility] CPT-4: 78287 04/02/2017 ([id number]) Miscellaneous no charge Diagnosis: Localized edema[ICD10: R60.0] Diagnosis: Cellulitis of left lower limb[ICD10: L03.116] Sarah Sanchez MD, [facility] CPT-4: 47894 03/26/2017 ([id number]) 77421 EST. PATIENT, LEVEL IV Diagnosis: Cellulitis of left lower limb[ICD10: L03.116] Diagnosis: Chronic gout due to renal impairment, left ankle and foot, without tophus (tophi)[ICD10: M1A.3720] Diagnosis: Localized edema[ICD10: R60.0] Diagnosis: Type 2 diabetes mellitus with hyperglycemia[ICD10: E11.65] Diagnosis: Dysuria[ICD10: R30.0] Dorene Sanchez MD, [facility] CPT-4: 03801 03/22/2017 [id number] 44229 EST. PATIENT, LEVEL IV Diagnosis: Type 2 diabetes mellitus with hyperglycemia[ICD10: E11.65] Diagnosis: Other specified hypothyroidism[ICD10: E03.8] Diagnosis: Essential (primary) hypertension[ICD10: I10] Sarah Sanchez MD, [facility] CPT-4: 43145 03/08/2017 ([id number]) 27004 EST. PATIENT, LEVEL III Diagnosis: Type 2 diabetes mellitus with hyperglycemia[ICD10: E11.65] Diagnosis: Other specified hypothyroidism[ICD10: E03.8] Sarah Sanchez MD, [facility] CPT-4: 21427 12/06/2016 ([id number]) 93004 EST. PATIENT, LEVEL IV Diagnosis: Essential (primary) hypertension[ICD10: I10] Diagnosis: Chronic kidney disease, stage 3 (moderate)[ICD10: N18.3] Dorene Sanchez MD, [facility] CPT-4: 70052 11/28/2016 ([id number]) 24162 EST. PATIENT, LEVEL IV Diagnosis: Essential (primary) hypertension[ICD10: I10] Diagnosis: Chronic pain syndrome[ICD10: G89.4] Diagnosis: Chronic kidney disease, stage 3 (moderate)[ICD10: N18.3] Diagnosis: Vitamin B12 deficiency anemia due to intrinsic factor deficiency[ ICD10: D51.0] Diagnosis: Other specified hypothyroidism[ICD10: E03.8] Dorene Sanchez MD, [facility] CPT-4: 07631 05/04/2016 05589 EST. PATIENT, LEVEL III Diagnosis: Chronic pain syndrome[ICD10: G89.4] Diagnosis: Essential (primary) hypertension[ICD10: I10] Diagnosis: Other specified hypothyroidism[ICD10: E03.8] Kiki Sanchez MD, [facility] CPT-4: 18346 11/04/2015 41062 EST. PATIENT, LEVEL III Diagnosis: Chronic pain syndrome[ICD10: G89.4] Diagnosis: Essential (primary) hypertension[ICD10: I10] Kiki Sanchez MD, [facility] CPT-4: 64194 07/30/2015 ([id number]) OFFICE/OUTPATIENT VISIT NEW Diagnosis: ESSENTIAL HYPERTENSION[ICD9: 401.9] Diagnosis: HYPOTHYROIDISM[ICD9: 244.9] Diagnosis: ANEMIA[ICD9: 285.9] Diagnosis: Vitamin B12 deficiency[ICD9: 266.2] Diagnosis: CHRONIC PAIN SYNDROME[ICD9: 338.4] Diagnosis: Chronic renal insufficiency, stage III (moderate)[ICD9: 585.3] Diagnosis: GOUT[ICD9: 274.9] Dorene Sanchez MD, [facility] CPT-4: 93374 01/26/2015 Plan of Care Planned Activity Notes Codes Status Date Visit Plan: DM with peripheral neuropathy-paperwork completed for diabetic shoes and will fax to Dr Bauer HTN-controlled -no changes Ffuainrre-TXMN-RCI-prostate cancer with mets- patient qualifies for oxygen-oxygen saturation dropped to 86% on room air during ambulation but increased to 99% on 2L NC at rest-will send orders to [facility] for continue oxygen at 2L per nasal cannula 10/04/2018 Patient Education: Patient Medication Summary Completed [...] Dr Moreno 08/29/2018 Appointment: Sarah Hernandes WPtel: [address] [place] [address] (15 min) Moderate 08/29/2018 Patient Education: Patient Medication Summary Completed 08/29/2018 Referral: Edgard Rivera MD WPtel: Via [address] Moreno. Patient informed. Referral info faxed. Completed 02/27/2018 Visit Plan: Recurrent prostate cancer - I have recommended a referral to Dr. Rivera. We discussed the case at length today- he is not interested in extensive treatment, but if possible to extend his quantity and quality of life, he would like to try. 02/25/2018 Appointment: Dorene Sanchez WPtel: [facility] (15 min) Moderate 02/25/2018 Patient Education: Patient Medication Summary Completed 02/25/2018 Care Plan: Referral Order SNOMED-CT : [id number] Pending 02/25/2018 Visit Plan: Intermittent abdominal pain, jaundice, itching - will check labs and treat as indicated - pt is to go to the ER with any acute change in symptoms or any acute concerns. 02/20/2018 App[facility]ment[phone] [facility] ([facility] min) Complex 02/20/2018 Patient Education: Patient [...] control. 02/05/2018 Appointment: [facility] [phone] [phone] [place] (30 min) Complex 02/05/2018 Patient Education: [...] surrogate. 11/30/2017 Appointment: [facility] [phone] [phone] [facility] - Annual Wellness Visit 11/30/2017 Patient [...] to 1.2 11/08/2017 [facility]ment: [facility] [phone] [facility] (15 min) Moderate 11/08/2017 Patient Education: [...] over-medication. 09/20/2017 Appointment: Dorene Sanchez WPtel: [phone] [facility] (15 min) Moderate 09/20/2017 Patient Education: Patient [...] control. 06/25/2017 Appointment: Sarah Hernandes WPtel: [phone] [phone] [place] (30 min) Complex 06/25/2017 Patient Education: Patient Medication Summary Completed 06/25/2017 Appointment: Sarah Hernandes WPtel: [phone] [phone] [place] (30 min) Complex 06/22/2017 Visit Plan: Cellulitis - start oral antibiotics as previously directed, return to clinic as previously directed, call for acute change in symptoms, worsening redness, warmth, discharge. 06/07/2017 Appointment: Sarah Hernandes WPtel: [phone] (30 min) Complex 06/07/2017 Patient Education: Patient Medication Summary Completed 06/07/2017 Patient Education: Obesity Completed 06/07/2017 Appointment: Dorene Sanchez WPtel: [facility] (15 min) Moderate 05/31/2017 Visit Plan: Edema-significantly improved-no changes Ulcer- left lower leg and foot-seeing Dr Norwood at wound care-appt scheduled with Dr Frausto for vascular evaluation 05/03/2017 Appointment: Sarah Hernandes WPtel: [phone] (15 min) Moderate 05/03/2017 Patient Education: Patient Medication Summary Completed 05/03/2017 Patient Education: Obesity Completed 05/03/2017 Visit Plan: Jzsomvzviz-bcdhsogmb-vcupplq to finish abx-no further treatment indicated Edema-significantly improved-no longer weeping- continue unna boots twice weekly with home health 04/02/2017 Appointment: Sarah Hernandes WPtel: [phone] [place] (30 min) Complex 04/02/2017 Patient Education: Patient Medication Summary Completed 04/02/2017 Patient Education: Obesity Completed 04/02/2017 Visit Plan: Cellulitis-left leg-continue levaquin Edema- increase lasix/potassium-consult [facility] for unna boots/dressing changes 03/26/2017 Appointment: Sarah Hernandes WPtel: [phone] [place] (15 min) Moderate 03/26/2017 Patient [...] indomethacin-stop aleve 03/22/2017 Appointment: [facility]and[phone] [place] (15 min) Moderate 03/22/2017 Patient Education: [...] of control. 03/08/2017 Appointment: [facility] Hernandes [facility]Ptel[phone] [place] (30 min) Complex 03/08/2017 Patient Education: [...] care surrogate. 11/30/2016 Appointment: [facility] [phone] [phone] [facility] - Annual Wellness Visit 11/30/2016 Patient [...] in fluids. 11/28/2016 Appointment: D[facility] Sanchez [facility] [phone] [facility] (15 min) Moderate 11/28/2016 Patient Education: [...] 01/26/2015 Referral: Edgard Rivera MD WPtel: Via [facility] [address] [id number] [place] Referral Appointment Requested Instructions Comment . [...] failure - continue with increase in fluids. REPEAT HGB A1C, CMP, TSH, FREE T4 [...] POTASSIUM TO TWICE DAILY [facility] UNNA BOOTS -WOUND CARE . Cellulitis-left leg-continue levaquin Edema-increase lasix/potassium-consult [facility] for unna boots/dressing changes WRAP LEGS-THIGHS [...] YEAR SHINGLES VACCINATION TO BE ADMINISTERED AT [facility] RECOMMEND OBTAINING MEDICAL POWER OF AIRCRAFT ARMORER AND LIVING WILL PATIENT DOES NOT HAVE [...] YEAR SHINGLES VACCINATION TO BE ADMINISTERED AT [facility] RECOMMEND OBTAINING MEDICAL POWER OF AIRCRAFT ARMORER AND LIVING WILL PATIENT DOES NOT HAVE [...] YEAR SHINGLES VACCINATION TO BE ADMINISTERED AT [facility] RECOMMEND OBTAINING MEDICAL POWER OF AIRCRAFT ARMORER AND LIVING WILL PATIENT DOES NOT HAVE [...] allow for greater blood glucose control. . Wvpzauomlb-gwfoeqkzp-ciazyux to finish abx-no further treatment indicated Edema-significantly [...] fax to Dr Bauer HTN-controlled -no changes Nvyohufrt-NWLQ-NAK-prostate cancer with mets- patient qualifies for oxygen- oxygen saturation dropped to 86% on room air during ambulation but increased to 99% on 2L NC at rest-will send orders to [facility] for continue oxygen at 2L per nasal cannula . Intermittent abdominal pain, jaundice, itching - will check labs and treat as indicated - pt is to go to the ER with any acute change in symptoms or any acute concerns.
--- OUTSIDE RECORDS SUMMARY | 2018-11-26 11:48 | XMS REPORT | CCD ---
Author Author Dorene Sanchez Organization [facility] Address [address] [place] [address] Phone Care Team Providers Care Manufacturing Engineer Name Role Phone PP Unavailable CCM Unavailable Summary Purpose Interface Exchange Insurance Providers Payer name Policy type / Coverage type Covered libertarian ID Effective Begin Date Effective End Date WPS Medicare Part B Medicare Part B [id number] Unknown Unknown Family history Father Diagnosis Age At Onset Stroke Unknown Mother Diagnosis Age At Onset Stroke Unknown Diabetes mellitus Type 2 Unknown Social History Social History Element Codes Description Effective Dates Tobacco history SNOMED CT: 762047500 Currently uses smokeless tobacco Chews 05/04/2016 Marital status Unknown 01/26/2015 Number of children Unknown 3 01/26/2015 Employment Unknown Retired 01/26/[address]: 116959683 Never drinks alcohol quit in July 2014 01/26/2015 Allergies, Adverse Reactions, Alerts Substance Reaction Codes Entered Date Inactivated Date Status * NO KNOWN FOOD ALLERGIES Unknown 01/26/2015 No Inactive Date Active * NO KNOWN DRUG ALLERGIES Unknown 01/26/2015 No Inactive Date Active Past Medical History Illness Codes Condition Status Onset Date Resolved Date Essential (primary) hypertension ICD-9: 401.1 ICD-10: I10 Active 11/08/2017 Unknown Malignant neoplasm of prostate ICD-9: 185 ICD-10: C61 Active 02/25/2018 Unknown Type 2 diabetes mellitus with hyperglycemia [...] ICD-9: 682.6 ICD-10: L03.116 Active 03/22/2017 Unknown Type 2 diabetes mellitus with foot ulcer ICD-9: 250.80 ICD-10: E11.621 Active 05/03/2017 Unknown Chronic gout due to renal impairment, [...] Problems Condition Codes Effective Dates Condition Status Essential (primary) hypertension ICD-9: 401.1 ICD-10: I10 11/08/2017 Active Malignant neoplasm of prostate ICD-9: 185 ICD-10: C61 02/25/2018 Active Type 2 diabetes mellitus with hyperglycemia [...] limb ICD-9: 682.6 ICD-10: L03.116 03/22/2017 Active Type 2 diabetes mellitus with foot ulcer ICD-9: 250.80 ICD-10: E11.621 05/03/2017 Active Chronic gout due to renal impairment, [...] Fill Instructions gabapentin 100 mg capsule RxNorm: 471269 TAKE ONE CAPSULE BY MOUTH IN THE EVENING AT 5PM 09/24/2018 03/22/2019 Active oxycodone 20 mg tablet RxNorm: 7210831 1/2 Tablet(s) PO Q6 as needed 09/12/2018 10/11/2018 Active oxycodone 20 mg tablet RxNorm: 3110708 1/2 Tablet(s) PO Q6 as needed 08/15/2018 09/11/2018 Inactive oxycodone 20 mg tablet RxNorm: 5615714 1/2 Tablet(s) PO Q6 as needed 07/16/2018 08/14/2018 Inactive oxycodone 20 mg tablet RxNorm: 6135610 1/2 Tablet(s) PO Q6 as needed 06/14/2018 07/13/2018 Inactive gabapentin 100 mg capsule RxNorm: 649051 TAKE ONE CAPSULE BY MOUTH IN THE EVENING AT 5PM 05/30/2018 09/23/2018 Inactive oxycodone 20 mg tablet RxNorm: 7568992 1/2 Tablet(s) PO Q6 as needed 05/15/2018 06/13/2018 Inactive oxycodone 20 mg tablet RxNorm: 1774231 1/2 Tablet(s) PO Q6 as needed 04/12/2018 05/11/2018 Inactive oxycodone 20 mg tablet RxNorm: 1144050 1/2 Tablet(s) PO Q6 as needed 03/11/2018 04/09/2018 Inactive levothyroxine 200 mcg tablet RxNorm: 945706 1 Tablet(s) PO daily 02/21/2018 02/15/2019 Active Cipro 500 mg tablet RxNorm: 292635 1 Tablet(s) PO BID 201702/20/2018 Inactive levothyroxine 200 mcg tablet RxNorm: 367987 1 Tablet(s) PO daily 02/21/2018 02/20/2018 Inactive Cipro 500 mg tablet RxNorm: 813265 1 Tablet(s) PO BID 201703/02/2018 Inactive oxycodone 20 mg tablet RxNorm: 8442163 1/2 Tablet(s) PO Q6 as needed 02/12/2018 03/10/2018 Inactive oxycodone 20 mg tablet RxNorm: 5636746 1/2 Tablet(s) PO Q6 as needed 01/16/2018 02/11/2018 Inactive gabapentin 100 mg capsule RxNorm: 983233 TAKE ONE CAPSULE BY MOUTH IN THE EVENING AT 5PM 01/15/2018 05/29/2018 Inactive bisoprolol 5 mg-hydrochlorothiazide 6.25 mg tablet RxNorm: 910395 TAKE ONE TABLET BY MOUTH DAILY 01/01/2018 12/26/2018 Active oxycodone 20 mg tablet RxNorm: 6649222 1/2 Tablet(s) PO Q6 as needed 12/20/2017 01/14/2018 Inactive oxycodone 20 mg tablet RxNorm: 7391929 1/2 Tablet(s) PO Q6 as needed 11/20/2017 12/19/2017 Inactive Victoza 2-Dino 0.6 mg/0.1 mL (18 mg/3 mL) subcutaneous pen injector RxNorm: 299136 1.2 Milligram(s) SQ daily 11/08/201712/07 Inactive oxycodone 20 mg tablet RxNorm: 0938585 1/2 Tablet(s) PO Q6 as needed 10/19/2017 11/17/2017 Inactive Lasix 20 mg tablet RxNorm: 377101 1 Tablet(s) QAM at 5pm 12/201703/18/2018 Inactive gabapentin 100 mg capsule RxNorm: 744809 1 Capsule(s) PO QPM at 5 pm 09/20/2017 01/14/2018 Inactive oxycodone 20 mg tablet RxNorm: 7466216 1/2 Tablet(s) PO Q6 as needed 09/18/2017 10/17/2017 Inactive oxycodone 20 mg tablet RxNorm: 7784293 1/2 Tablet(s) PO Q6 as needed 08/14/2017 09/12/2017 Inactive ketoconazole 2 % topical cream RxNorm: 135748 1 Gram(s) TOP BID to affected area until healed 08/03/2017 No Stop Date Active oxycodone 20 mg tablet RxNorm: 7262632 1/2 Tablet(s) PO Q6 as needed 07/17/2017 08/13/2017 Inactive pen needle, diabetic 31 gauge x 5/16" RxNorm: 1 Unit Dose Miscellaneous daily 06/25/2017 03/21/2018 Inactive daily use with victoza Bactrim DS 800 mg-160 mg tablet RxNorm: 655960 1 Tablet(s) PO BID Dr Norwood 06/25/2017 07/04/2017 Inactive Victoza 2-Dino 0.6 mg/0.1 mL (18 mg/3 mL) subcutaneous pen injector RxNorm: 777383 0.6 Milligram(s) SQ daily 06/25/201707/24 Inactive doxycycline hyclate 100 mg tablet RxNorm: 996462 1 Tablet(s) PO BID Dr Norwood 06/21/2017 06/30/2017 Inactive oxycodone 20 mg tablet RxNorm: 4361766 1/2 Tablet(s) PO Q6 as needed 06/14/2017 07/13/2017 Inactive clindamycin 150 mg capsule RxNorm: 258662 1 Capsule(s) PO Q8 06/16/2017 Inactive levothyroxine 175 mcg tablet RxNorm: 587280 TAKE ONE TABLET BY MOUTH DAILY 06/04/2017 09/01/2017 Inactive levothyroxine 175 mcg tablet RxNorm: 441078 TAKE ONE TABLET BY MOUTH DAILY 06/04/2017 11/30/2017 Inactive bisoprolol 5 mg-hydrochlorothiazide 6.25 mg tablet RxNorm: 782165 TAKE ONE TABLET BY MOUTH DAILY 05/24/2017 11/19/2017 Inactive oxycodone 20 mg tablet RxNorm: 6357678 1/2 Tablet(s) PO Q6 as needed 05/14/2017 06/12/2017 Inactive potassium chloride ER 10 mEq capsule,extended release RxNorm: 358036 TAKE ONE CAPSULE BY MOUTH DAILY NEEDED FOR 5 DAYS THEN NEEDED WITH LASIX 04/17/2017 10/13/2017 Inactive Lasix 20 mg tablet RxNorm: 226835 TAKE ONE TABLET BY MOUTH DAILY NEEDED 04/17/2017 09/19/2017 Inactive oxycodone 20 mg tablet RxNorm: 6833211 1/2 Tablet(s) PO Q6 as needed 04/12/2017 05/11/2017 Inactive Colcrys 0.6 mg tablet RxNorm: 896761 2 tabs at onset then may repeat 1 tab in 1 hours if needed- Tablet(s) PO 04/09/2017 No Stop Date Active then take daily until gout resolved Bactrim DS 800 mg-160 mg tablet RxNorm: 352144 1 Tablet(s) PO BID 04/09/2017 04/08/2017 Inactive dc levaquin Bactrim DS 800 mg-160 mg tablet RxNorm: 197212 1 Tablet(s) PO BID 04/09/2017 04/15/2017 Inactive dc levaquin Levaquin 500 mg tablet RxNorm: 326587 1 Tablet(s) PO daily 04/02/2017 Inactive Levaquin 500 mg tablet RxNorm: 361603 1 Tablet(s) PO daily 06/06/2017 Inactive indomethacin 25 mg capsule RxNorm: 683288 1 Capsule(s) PO TID PRN 03/22/2017 03/22/2017 Inactive Lasix 20 mg tablet RxNorm: 457465 1 Tablet(s) PO QDAY PRN 02/201704/16/2017 Inactive daily x 5 days then as needed Levaquin 500 mg tablet RxNorm: 111277 1 Tablet(s) PO daily 02/201703/31/2017 Inactive potassium chloride ER 10 mEq capsule,extended release RxNorm: 610288 1 Capsule(s) PO QDAY PRN 03/22/2017 04/16/2017 Inactive daily x 5 days then as needed with lasix oxycodone 20 mg tablet RxNorm: 4705455 1/2 Tablet(s) PO Q6 as needed 03/08/2017 04/06/2017 Inactive bisoprolol 5 mg-hydrochlorothiazide 6.25 mg tablet RxNorm: 682743 TAKE ONE TABLET BY MOUTH DAILY 02/14/2017 05/14/2017 Inactive oxycodone 20 mg tablet RxNorm: 9482909 1/2 Tablet(s) PO Q6 as needed 02/08/2017 03/07/2017 Inactive oxycodone 20 mg tablet RxNorm: 4685505 1/2 Tablet(s) PO Q6 as needed 01/08/2017 02/06/2017 Inactive levothyroxine 175 mcg tablet RxNorm: 411248 1 Tablet(s) PO daily 12/06/2016 06/03/2017 Inactive [SAVINGS FOR NON-COVERED DRUGS -- BIN:[id number], PCN: ASPROD1, Group: XXXXX, ID# XXXXXXX, Questions: . THIS IS NOT INSURANCE.] oxycodone 20 mg tablet RxNorm: 7900097 1/2 Tablet(s) PO Q6 as needed 12/04/2016 01/02/2017 Inactive oxycodone 20 mg tablet RxNorm: 7648745 1/2 Tablet(s) PO Q6 as needed 11/09/2016 12/03/2016 Inactive bisoprolol 5 mg-hydrochlorothiazide 6.25 mg tablet RxNorm: 134217 TAKE ONE TABLET BY MOUTH DAILY 11/08/2016 02/05/2017 Inactive oxycodone 20 mg tablet RxNorm: 0750628 1/2 Tablet(s) PO Q6 as needed 10/05/2016 11/03/2016 Inactive oxycodone 20 mg tablet RxNorm: 5261863 1/2 Tablet(s) PO Q6 as needed 09/06/2016 10/04/2016 Inactive oxycodone 20 mg tablet RxNorm: 2019972 1/2 Tablet(s) PO Q6 as needed 08/07/2016 09/05/2016 Inactive oxycodone 20 mg tablet RxNorm: 3050521 1/2 Tablet(s) PO Q6 as needed 07/04/2016 08/06/2016 Inactive oxycodone 20 mg tablet RxNorm: 6244315 1/2 Tablet(s) PO Q6 as needed 05/29/2016 07/03/2016 Inactive levothyroxine 150 mcg tablet RxNorm: 818323 1 Tablet(s) PO daily 04/10/2016 04/09/2016 Inactive [SAVINGS FOR NON-COVERED DRUGS -- BIN:[id number], PCN: ASPROD1, Group: XXXXX, ID# XXXXXXX, Questions: . THIS IS NOT INSURANCE.] oxycodone 20 mg tablet RxNorm: 9993465 1/2 Tablet(s) PO Q6 as needed 04/10/2016 05/28/2016 Inactive levothyroxine 150 mcg tablet RxNorm: 498281 1 Tablet(s) PO daily 04/10/2016 10/06/2016 Inactive [SAVINGS FOR NON-COVERED DRUGS -- BIN:474555, PCN: ASPROD1, Group: XXXXX, ID# XXXXXXX, Questions: . THIS IS NOT INSURANCE.] bisoprolol 5 mg-hydrochlorothiazide 6.25 mg tablet RxNorm: 808683 1 Tablet(s) PO daily 02/16/2016 12/31/2017 Inactive oxycodone 20 mg tablet RxNorm: 1921847 1/2 Tablet(s) PO Q6 as needed 02/16/2016 04/09/2016 Inactive oxycodone 20 mg tablet RxNorm: 4825972 1/2 Tablet(s) PO Q6 as needed 01/04/2016 02/15/2016 Inactive bisoprolol 5 mg-hydrochlorothiazide 6.25 mg tablet RxNorm: 120211 1 Tablet(s) PO daily 11/19/2015 01/17/2016 Inactive bisoprolol 5 mg-hydrochlorothiazide 6.25 mg tablet RxNorm: 535387 1 Tablet(s) PO daily 11/04/2015 11/18/2015 Inactive oxycodone 20 mg tablet RxNorm: 5830431 1/2 Tablet(s) PO Q6 as needed 10/27/2015 01/03/2016 Inactive levothyroxine 150 mcg tablet RxNorm: 491098 1 Tablet(s) PO daily 08/26/2015 02/21/2016 Inactive [SAVINGS FOR NON-COVERED DRUGS -- BIN:268105, PCN: ASPROD1, Group: XXXXX, ID# XXXXXXX, Questions: . THIS IS NOT INSURANCE.] bisoprolol 5 mg-hydrochlorothiazide 6.25 mg tablet RxNorm: 667976 1 Tablet(s) PO daily 08/26/2015 10/24/2015 Inactive oxycodone 10 mg tablet RxNorm: 0768115 1 Tablet(s) PO Q6 as needed 05/06/2015 10/26/2015 Inactive levothyroxine 150 mcg tablet RxNorm: 347693 1 Tablet(s) PO daily 02/05/2015 08/03/2015 Inactive [SAVINGS FOR NON-COVERED DRUGS -- BIN:312592, PCN: ASPROD1, Group: XXXXX, ID# XXXXXXX, Questions: . THIS IS NOT INSURANCE.] Vitamin D2 50,000 unit capsule RxNorm: 548287 1 Capsule(s) PO weekly 02/05/2015 05/05/2015 Inactive [SAVINGS FOR NON-COVERED DRUGS -- BIN:317114, PCN: ASPROD1, Group: XXXXX, ID# XXXXXXX, Questions: . THIS IS NOT INSURANCE.] Vitamin D2 50,000 unit capsule RxNorm: 979725 1 Capsule(s) PO weekly 02/05/2015 02/04/2015 Inactive bisoprolol 5 mg-hydrochlorothiazide 6.25 mg tablet RxNorm: 764998 1 Tablet(s) PO daily 01/26/2015 02/24/2015 Inactive levothyroxine 200 mcg tablet RxNorm: 332020 1 Tablet(s) PO daily 01/26/2015 01/25/2015 Inactive levothyroxine 200 mcg tablet RxNorm: 908999 1 Tablet(s) PO every other day 01/26/2015 02/04/2015 Inactive [SAVINGS FOR NON-COVERED DRUGS -- BIN:784376, PCN: ASPROD1, Group: XXXXX, ID# XXXXXXX, Questions: . THIS IS NOT INSURANCE.] aspirin 81 mg chewable tablet RxNorm: 769746 1 Tablet(s) PO daily No Start Date Active Plavix 75 mg tablet RxNorm: 860786 1 Tablet(s) PO daily manage by Dr Baig No Start Date Active simvastatin 40 mg tablet RxNorm: 047239 1 Tablet(s) PO QHS managed by Dr Baig No Start Date Active Colcrys 0.6 mg tablet RxNorm: 588505 2 tabs at onset then may repeat 1 tab in 1 hours if needed- Tablet(s) PO No Start Date 04/08/2017 Inactive then take daily until gout resolved aspirin 325 mg tablet RxNorm: 369214 1 Tablet(s) PO daily No Start Date 05/03/2016 Inactive levothyroxine 75 mcg tablet RxNorm: 366768 1 Tablet(s) PO every other day No Start Date 02/04/2015 Inactive takes qod with 200mcg oxycodone 10 mg tablet RxNorm: 5972788 1 Tablet(s) PO Q6 as needed No Start Date 05/05/2015 Inactive ketoconazole 2 % topical cream RxNorm: 476751 1 Gram(s) TOP BID to affected area until healed No Start Date 08/02/2017 Inactive indomethacin oral RxNorm: 5781 oral No Start Date 03/21/2017 Inactive Medication Administered No Medication Administered data Immunizations Vaccine Codes Date Status Pneumococcal (Adult) CVX: 33 02/05/2018 completed Pneumococcal (Adult) CVX: 133 11/30/2016 completed Assessments Condition Codes Effective Dates Type 2 diabetes mellitus with hyperglycemia ICD-10: E11.65 ICD-9: 250.00 08/29/2018 Malignant neoplasm of prostate ICD-10: C61 ICD-9: 185 08/29/2018 Essential (primary) hypertension ICD-10: I10 ICD-9: 401.1 08/29/2018 Generalized abdominal pain ICD-10: R10.84 ICD-9: [...] lower limb ICD-10: L03.116 ICD-9: 682.6 06/07/2017 Type 2 diabetes mellitus with foot ulcer ICD-10: E11.621 ICD-9: 250.80 05/03/2017 Chronic gout due to renal impairment, left [...] Visit Reason For Visit Effective Dates Notes diabetes mellitus 08/29/2018 abdominal pain 02/25/2018 abdominal [...] Code Item Item Code Result Date %Hba1C Ckf002 % HbA1c 44848-4 6.4 % 08/30/2018 %Hba1C Tex603 Gluc Ave 137 mg/dL 08/30/2018 Culture Urine [id number] URINE CULTURE SEE NOTES 02/22/2018 Urine Culture [...] 24.5 pg 02/20/2018 Cbc With Differential Ord2 [place]% 8.9 % 02/20/2018 Cbc With Differential Ord2 MCHC 30.2 pg 02/20/2018 Cbc With Differential Ord2 Eos% 5.1 % 02/20/2018 Cbc With Differential Ord2 Baso% 0.1 % 02/20/2018 Cbc With Differential Ord2 PLT 206 K/ul 02/20/2018 Cbc With Differential Ord2 Neut ABS# 5.55 K/ul 02/20/2018 Cbc With Differential Ord2 RDW 20.9 % 02/20/2018 Cbc With Differential Ord2 Lymph ABS# 0.81 K/ul 02/20/2018 Cbc With Differential Ord2 [place] ABS# 0.7 K/ul 02/20/2018 Cbc With Differential Ord2 Eos ABS# 0.4 K/ul 02/20/2018 Cbc With Differential Ord2 Baso ABS# 0.0 K/ul 02/20/2018 %Hba1C Nwp589 % HbA1c 12763-3 7.7 % 02/20/2018 %Hba1C Gdx588 Gluc Ave 174 mg/dL 02/20/2018 Lipase Lmi309 LIPASE 17 U/L 02/20/2018 Microalbumin Zeg698 MicroAlb 6.5 mg/dL 02/20/2018 Amylase Ord34 AMYLASE 15 U/L 02/20/2018 Free T4 Aai015 FREE T4 0.61 ng/dL 02/20/2018 Lipid Ord30 CHOL 203 mg/dL 02/20/2018 Lipid Ord30 HDL 7.0 mg/dl 02/20/2018 Lipid Ord30 TRIG 271 mg/dL 02/20/2018 Lipid Ord30 LDL 142 mg/dL 02/20/2018 Lipid Ord30 C/HDL 29.0 Ratio 02/20/2018 Comp Metabolic Net256 NA 134 mEq/L 02/20/2018 Comp Metabolic Buw117 K 3.6 mEq/L 02/20/2018 Comp Metabolic Duf973 CL 96 mEq/L 02/20/2018 Comp Metabolic Fpi750 CO2 29.0 mEq/L 02/20/2018 Comp Metabolic Pbl827 ANION GAP 13 02/20/2018 Comp Metabolic Qkk069 GLUCOSE 165 mg/dL 02/20/2018 Comp Metabolic Pkt529 Creat 1.2 mg/dL 02/20/2018 Comp Metabolic Kgu256 eGFR 63 ml/min/1.73m2 02/20/2018 Comp Metabolic Fpb542 BUN 14 mg/dL 02/20/2018 Comp Metabolic Uez006 B/C Ratio 11.6 Ratio 02/20/2018 Comp Metabolic Gbn705 CALCIUM 8.5 mg/dL 02/20/2018 Comp Metabolic Smg535 ALK PHOS 633 U/L 02/20/2018 Comp Metabolic Zbs140 AST(SGOT) 112 U/L 02/20/2018 Comp Metabolic Ajc311 ALT(SGPT) 148 U/L 02/20/2018 Comp Metabolic Mju309 BILI T 6.8 mg/dL 02/20/2018 Comp Metabolic Buk732 ALBUMIN 3.3 g/dL 02/20/2018 Comp Metabolic Vmk479 TPRO 5.9 g/dL 02/20/2018 Comp Metabolic Bwt416 GLOB 2.6 g/dL 02/20/2018 Comp Metabolic Inj161 A/G Ratio 1.3 Ratio 02/20/2018 Comp Metabolic Khu347 Osmo 272 mOsmo 02/20/2018 Total Psa Ord10 [...] Metabolic Ord15 CALCIUM 9.2 mg/dL 11/09/2017 %Hba1C Ret528 % HbA1c 21372-6 8.0 % 11/09/2017 %Hba1C Lsc632 Gluc Ave 183 mg/dL 11/09/2017 Metabolic Ord15 [...] Ord15 CALCIUM 8.7 mg/dL 06/25/2017 Culture Wound [id number] WOUND CULTURE SEE NOTES 04/09/2017 Culture Wound [id number] Continued Results 04/09/2017 Amylase Ord34 AMYLASE 19 U/L 03/22/2017 Uric Acid Ord77 Uric A 8.8 mg/dL 03/22/2017 Cbc With Differential Ord2 WBC 16.93 K/ul 03/22/2017 Cbc With Differential Ord2 RBC 4.30 M/ul 03/22/2017 Cbc With Differential Ord2 HGB 12.0 g/dl 03/22/2017 Cbc With Differential Ord2 Neut% 82.3 % 03/22/2017 Cbc With Differential Ord2 HCT 38.3 % 03/22/2017 Cbc With Differential Ord2 Lymph% 8.0 % 03/22/2017 Cbc With Differential Ord2 MCV 89.1 fl 03/22/2017 Cbc With Differential Ord2 MCH 27.9 pg 03/22/2017 Cbc With Differential Ord2 [place]% 8.3 % 03/22/2017 Cbc With Differential Ord2 [...] 1.35 K/ul 03/22/2017 Cbc With Differential Ord2 [place] ABS# 1.4 K/ul 03/22/2017 Cbc With Differential Ord2 Eos ABS# 0.2 K/ul 03/22/2017 Cbc With Differential Ord2 Baso ABS# 0.0 K/ul 03/22/2017 Comp Metabolic Bef798 NA 134 mEq/L 03/22/2017 Comp Metabolic Xdi178 K 4.5 mEq/L 03/22/2017 Comp Metabolic Syc959 CL 93 mEq/L 03/22/2017 Comp Metabolic Kob978 CO2 31.0 mEq/L 03/22/2017 Comp Metabolic Vqd460 ANION GAP 15 03/22/2017 Comp Metabolic Azy571 GLUCOSE 198 mg/dL 03/22/2017 Comp Metabolic Iso808 Creat 1.5 mg/dL 03/22/2017 Comp Metabolic Bpm255 eGFR 50 ml/min/1.73m2 03/22/2017 Comp Metabolic Ifp453 BUN 32 mg/dL 03/22/2017 Comp Metabolic Gpj648 B/C Ratio 21.6 Ratio 03/22/2017 Comp Metabolic Zdq773 CALCIUM 8.4 mg/dL 03/22/2017 Comp Metabolic Dla430 ALK PHOS 245 U/L 03/22/2017 Comp Metabolic Ycp671 AST(SGOT) 18 U/L 03/22/2017 Comp Metabolic Vao230 ALT(SGPT) 17 U/L 03/22/2017 Comp Metabolic Ccp832 BILI T 0.8 mg/dL 03/22/2017 Comp Metabolic Mgb480 ALBUMIN 2.9 g/dL 03/22/2017 Comp Metabolic Fqo525 TPRO 6.3 g/dL 03/22/2017 Comp Metabolic Qtx315 GLOB 3.4 g/dL 03/22/2017 Comp Metabolic Otq024 A/G Ratio 0.8 Ratio 03/22/2017 Comp Metabolic Heb652 Osmo 281 mOsmo 03/22/2017 Lipase Cbd793 LIPASE 12 U/L 03/22/2017 Comp Metabolic Ycj953 NA 142 mEq/L 03/09/2017 Comp Metabolic Vui202 K 4.8 mEq/L 03/09/2017 Comp Metabolic Abt180 CL 103 mEq/L 03/09/2017 Comp Metabolic Jru819 CO2 30.0 mEq/L 03/09/2017 Comp Metabolic Vcn226 ANION GAP 14 03/09/2017 Comp Metabolic Nfv738 GLUCOSE 152 mg/dL 03/09/2017 Comp Metabolic Tqo685 Creat 1.3 mg/dL 03/09/2017 Comp Metabolic Vuu272 eGFR 56 ml/min/1.73m2 03/09/2017 Comp Metabolic Wea949 BUN 23 mg/dL 03/09/2017 Comp Metabolic Bwn170 B/C Ratio 17.3 Ratio 03/09/2017 Comp Metabolic Zto793 CALCIUM 8.5 mg/dL 03/09/2017 Comp Metabolic Mro854 ALK PHOS 97 U/L 03/09/2017 Comp Metabolic Syk606 AST(SGOT) 10 U/L 03/09/2017 Comp Metabolic Nmf090 ALT(SGPT) 6 U/L 03/09/2017 Comp Metabolic Rlq341 BILI T 0.4 mg/dL 03/09/2017 Comp Metabolic Yca828 ALBUMIN 3.4 g/dL 03/09/2017 Comp Metabolic Ehh988 TPRO 6.2 g/dL 03/09/2017 Comp Metabolic Iug047 GLOB 2.8 g/dL 03/09/2017 Comp Metabolic Wvi104 A/G Ratio 1.2 Ratio 03/09/2017 Comp Metabolic Ags251 Osmo 290 mOsmo 03/09/2017 Free T4 Pod922 FREE T4 0.86 ng/dL 03/08/2017 Cbc With [...] 28.2 pg 03/08/2017 Cbc With Differential Ord2 [place]% 8.7 % 03/08/2017 Cbc With Differential Ord2 MCHC 30.1 pg 03/08/2017 Cbc With Differential Ord2 Eos% 5.1 % 03/08/2017 Cbc With Differential Ord2 Baso% 0.2 % 03/08/2017 Cbc With Differential Ord2 PLT 268 K/ul 03/08/2017 Cbc With Differential Ord2 Neut ABS# 6.75 K/ul 03/08/2017 Cbc With Differential Ord2 RDW 16.8 % 03/08/2017 Cbc With Differential Ord2 Lymph ABS# 1.63 K/ul 03/08/2017 Cbc With Differential Ord2 [place] ABS# 0.9 K/ul 03/08/2017 Cbc With Differential Ord2 Eos ABS# 0.5 K/ul 03/08/2017 Cbc With Differential Ord2 Baso ABS# 0.0 K/ul 03/08/2017 Tsh Ord6 hTSH II 4.52 uIU/mL 03/08/2017 %Hba1C Oel063 % HbA1c 43769-4 8.5 % 03/08/2017 %Hba1C Zma045 Gluc Ave 197 mg/dL 03/08/2017 %Hba1C Elu589 % HbA1c 50306-3 9.8 % 12/04/2016 %Hba1C Vxv922 Gluc Ave 235 mg/dL 12/04/2016 Tsh Ord6 hTSH II 10.65 uIU/mL 11/30/2016 Comp Metabolic Wnf105 NA 134 mEq/L 11/30/2016 Comp Metabolic Wdx615 K 5.0 mEq/L 11/30/2016 Comp Metabolic Hfk369 CL 95 mEq/L 11/30/2016 Comp Metabolic Jxa531 CO2 34.0 mEq/L 11/30/2016 Comp Metabolic Vqs233 ANION GAP 10 11/30/2016 Comp Metabolic Hhz308 GLUCOSE 226 mg/dL 11/30/2016 Comp Metabolic Dbs577 Creat 1.3 mg/dL 11/30/2016 Comp Metabolic Jbs998 eGFR 56 ml/min/1.73m2 11/30/2016 Comp Metabolic Cyk645 BUN 21 mg/dL 11/30/2016 Comp Metabolic Pck991 B/C Ratio 15.7 Ratio 11/30/2016 Comp Metabolic Npn830 CALCIUM 8.9 mg/dL 11/30/2016 Comp Metabolic Jex229 ALK PHOS 112 U/L 11/30/2016 Comp Metabolic Ivm275 AST(SGOT) 9 U/L 11/30/2016 Comp Metabolic Etv299 ALT(SGPT) 7 U/L 11/30/2016 Comp Metabolic Uwh951 BILI T 0.6 mg/dL 11/30/2016 Comp Metabolic Vil040 ALBUMIN 3.6 g/dL 11/30/2016 Comp Metabolic Oaz657 TPRO 6.4 g/dL 11/30/2016 Comp Metabolic Rwt060 GLOB 2.9 g/dL 11/30/2016 Comp Metabolic Pga592 A/G Ratio 1.2 Ratio 11/30/2016 Comp Metabolic Sbh206 Osmo 278 mOsmo 11/30/2016 Lipid Ord30 CHOL [...] 13.0 % 11/30/2016 Cbc With Differential Ord2 [place]% 7.9 % 11/30/2016 Cbc With Differential Ord2 [...] 1.34 K/ul 11/30/2016 Cbc With Differential Ord2 [place] ABS# 0.8 K/ul 11/30/2016 Cbc With Differential Ord2 Eos ABS# 0.3 K/ul 11/30/2016 Cbc With Differential Ord2 Baso ABS# 0.0 K/ul 11/30/2016 Free T4 Mkq924 FREE T4 0.89 ng/dL 11/30/2016 Review of Systems System Result Effective Dates Constitutional No recent illness 2017 Constitutional No [...] clubbing 11/08/2017 None Full Exam - General 1995 Cardiovascular extremities Edema present: pitting 11/08/2017 2+ [...] Codes Date ADMIN PNEUMOCOCCAL VACCINE SNOMED CT: 60826201 CPT-4: G0009 02/05/2018 Pneumococcal Polysaccharide Vaccine, 23-Valent, Ad CPT-4: 25960 02/05/2018 PPPS, SUBSEQ VISIT CPT -4: G0439 11/30/2017 URINALYSIS NONAUTO W/O SCOPE CPT-4: 22653 03/22/2017 URINALYSIS NONAUTO W/O SCOPE CPT-4: 25813 03/21/2017 PPPS, SUBSEQ VISIT CPT -4: G0439 11/30/2016 PNEUMOCOCCAL VACC 13 JAVIER IM Assigned to, Formatting Model/CDA Sections SNOMED CT: 56998579 CPT-4: 01470Eiwyaqd 11/30/2016 ADMIN PNEUMOCOCCAL VACCINE SNOMED CT: 13376495 CPT-4: G0009 11/30/2016 Vital Signs Date Vital 08/29/2018 Blood Pressure 1: 104/60 Code : 8480-6 BMI: 34.6 Code : 68627-5 Heart Rate 1 : 68 bpm Height: 5'10" SpO2: 98% Weight: 241 lbs 02/25/2018 Blood Pressure 1: 120/70 Code : 8480-6 BMI: 37.0 Code : 24795-3 Heart Rate 1 : 51 bpm Height: 5'10" SpO2: 97% Weight: 258 lbs 02/20/2018 Blood Pressure 1: 124/70 Code : 8480-6 BMI: 38.0 Code : 77801-4 Heart Rate 1 : 60 bpm Height: 5'10" SpO2: 96% Weight: 265 lbs 02/05/2018 Blood Pressure 1: 116/ Code : 8480-6 BMI: 38.0 Code : 13924-5 Heart Rate 1 : 63 bpm Height: 5'10" SpO2: 98% Weight: 265 lbs 11/30/2017 Blood Pressure 1: 132/60 Code : 8480-6 BMI: 37.0 Code : 48430-0 Heart Rate 1 : 100 bpm Height: 5'10 " SpO2: 96% Waist Measure (cm): 122 cm Weight: 258 lbs 11/08/2017 Blood Pressure 1: 126/64 Code : 8480-6 BMI: 37.2 Code : 21218-3 Heart Rate 1 : 92 bpm Height: 5'10" SpO2: 94% Weight: 259 lbs 09/20/2017 Blood Pressure 1: 122/68 Code : 8480-6 BMI: 36.9 Code : 86909-0 Heart Rate 1 : 57 bpm Height: 5'10" SpO2: 96% Weight: 257 lbs 06/25/2017 Blood Pressure 1: 124/68 Code : 8480-6 BMI: 37.0 Code : 51351-7 Height: 5'10 " Weight: 258 lbs 06/07/2017 Blood Pressure 1: 122/64 Code : 8480-6 BMI: 37.0 Code : 93427-7 Heart Rate 1 : 60 bpm Height: 5'10" SpO2: 94% Temperature: 36.4 (C) / 97.6 (F) Weight: 258 lbs 05/03/2017 Blood Pressure 1: 118/74 Code : 8480-6 BMI: 38.2 Code : 46299-3 Heart Rate 1 : 52 bpm Height: 5'10" SpO2: 98% Weight: 266 lbs 04/02/2017 Blood Pressure 1: 118/62 Code : 8480-6 BMI: 38.2 Code : 90007-6 Heart Rate 1 : 53 bpm Height: 5'10" SpO2: 93% Weight: 266 lbs 03/26/2017 Blood Pressure 1: 114/62 Code : 8480-6 BMI: 38.3 Code : 26996-0 Height: 5'10 " Weight: 267 lbs 03/22/2017 Blood Pressure 1: 122/64 Code : 8480-6 BMI: 40.0 Code : 88520-7 Heart Rate 1 : 52 bpm Height: 5'10" SpO2: 94% Weight: 279 lbs 03/08/2017 Blood Pressure 1: 124/70 Code : 8480-6 BMI: 39.4 Code : 99366-2 Heart Rate 1 : 51 bpm Height: 5'10" SpO2: 94% Weight: 274 lbs 8 oz 12/06/2016 Blood Pressure 1: 126/62 Code : 8480-6 BMI: 40.3 Code : 99638-9 Heart Rate 1 : 50 bpm Height: 5'10" SpO2: 94% Weight: 281 lbs 11/30/2016 Blood Pressure 1: 112/62 Code : 8480-6 BMI: 40.3 Code : 40819-1 Heart Rate 1 : 52 bpm Height: 5'10" SpO2: 93% Waist Measure (cm): 135 cm Weight: 281 lbs 11/28/2016 Blood Pressure 1: 132/72 Code : 8480-6 BMI: 40.3 Code : 17045-5 Heart Rate 1 : 50 bpm Height: 5'10" Weight: 281 lbs 05/04/2016 Blood Pressure 1: 128/78 Code : 8480-6 BMI: 38.5 Code : 50527-7 Heart Rate 1 : 74 bpm Height: 5'10" SpO2: 98% Weight: 268 lbs 8 oz 11/04/2015 Blood Pressure 1: 136/60 Code : 8480-6 BMI: 38.0 Code : 55825-4 Heart Rate 1 : 55 bpm Height: 5'10" SpO2: 94% Weight: 265 lbs 07/30/2015 Blood Pressure 1: 128/74 Code : 8480-6 BMI: 38.0 Code : 07480-2 Heart Rate 1 : 47 bpm Height: 5'10" SpO2: 97% Weight: 265 lbs 01/26/2015 Blood Pressure 1: 122/64 Code : 8480-6 BMI: 34.0 Code : 90499-2 Heart Rate 1 : 68 bpm Height: 5'10" Weight: 237 lbs Functional Status No Functional Status data History of Present Illness Symptom Name Status Result Effective Date Notes Quality non-insulin dependent 08/29/2018 None Alleviating Factors [...] data Encounters Encounter Performer Location Codes Date ([id number]) 14054 EST. PATIENT, LEVEL IV Diagnosis: Type 2 diabetes mellitus with hyperglycemia[ICD10: E11.65] Diagnosis: Essential (primary) hypertension[ICD10: I10] Diagnosis: Malignant neoplasm of prostate[ICD10: C61] Sarah Sanchez MD, [facility] CPT-4: 83688 08/29/2018 ([id number]) 93260 EST. PATIENT, LEVEL IV Diagnosis: Malignant neoplasm of prostate[ICD10: C61] Dorene Sanchez MD, [facility] CPT-4: 39213 02/25/2018 83074 EST. PATIENT, LEVEL IV Diagnosis: Generalized abdominal pain[ICD10: R10.84] Diagnosis: Unspecified jaundice[ICD10: R17] Diagnosis: Gross hematuria[ICD10: R31.0] Kiki Sanchez MD, [facility] CPT-4 : 10067 02/20/2018 ([id number]) 41663 EST. PATIENT, LEVEL IV Diagnosis: Type 2 diabetes mellitus with hyperglycemia[ICD10: E11.65] Diagnosis: Essential (primary) hypertension[ICD10: I10] Diagnosis: Chronic kidney disease, stage 3 (moderate)[ICD10: N18.3] Diagnosis: Chronic pain syndrome[ICD10: G89.4] Diagnosis: Other specified hypothyroidism[ICD10: E03.8] Diagnosis: Encounter for screening for malignant neoplasm of prostate[ICD10: Z12.5] Diagnosis: Encounter for immunization[ICD10: Z23] Sarah Sanchez MD, [facility] CPT-4: 51096 02/05/2018 ([id number]) 47185 EST. PATIENT, LEVEL IV Diagnosis: Type 2 diabetes mellitus with hyperglycemia[ICD10: E11.65] Diagnosis: Essential (primary) hypertension[ICD10: I10] Dorene Sanchez MD, [facility] CPT-4: 17310 11/08/2017 ([id number]) 24166 EST. PATIENT, LEVEL IV Diagnosis: Type 2 diabetes mellitus with hyperglycemia[ICD10: E11.65] Diagnosis: Chronic pain syndrome[ICD10: G89.4] Diagnosis: Essential (primary) hypertension[ICD10: I10] Diagnosis: Chronic kidney disease, stage 3 (moderate)[ICD10: N18.3] Diagnosis: Localized edema[ICD10: R60.0] Dorene Sanchez MD, [facility] CPT- 4: 82072 09/20/2017 ([id number]) 09898 EST. PATIENT, LEVEL III Diagnosis: Type 2 diabetes mellitus with hyperglycemia[ICD10: E11.65] Sarah Sanchez MD, [facility] CPT-4: 25772 06/25/2017 ([id number] 02621 EST. PATIENT, LEVEL III Diagnosis: Cellulitis of left lower limb[ICD10: L03.116] Sarah Sanchez MD, [facility] CPT-4: 02673 06/07/2017 ([id number] 85856 EST. PATIENT, LEVEL III Diagnosis: Localized edema[ICD10: R60.0] Diagnosis: Type 2 diabetes mellitus with foot ulcer[ICD10: E11.621] Sarah Sanchez MD , [facility] CPT-4: 92377 05/03/2017 ([id number]) 06613 EST. PATIENT, LEVEL III Diagnosis: Cellulitis of left lower limb[ICD10: L03.116] Diagnosis: Localized edema[ICD10: R60.0] Sarah Sanchez MD, [facility] CPT-4: 67810 04/02/2017 ([id number]) Miscellaneous no charge Diagnosis: Localized edema[ICD10: R60.0] Diagnosis: Cellulitis of left lower limb[ICD10: L03.116] Sarah Sanchez MD, [facility] CPT-4: 84776 03/26/2017 ([id number]) 79264 EST. 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 PATIENT, LEVEL IV Diagnosis: Type 2 diabetes mellitus with hyperglycemia[ICD10: E11.65] Diagnosis: Other specified hypothyroidism[ICD10: E03.8] Diagnosis: Essential (primary) hypertension[ICD10: I10] Sarah Sanchez MD, [facility] CPT-4: 49045 03/08/2017 ([id number]) 19816 EST. PATIENT, LEVEL III Diagnosis: Type 2 diabetes mellitus with hyperglycemia[ICD10: E11.65] Diagnosis: Other specified hypothyroidism[ICD10: E03.8] Sarah Sanchez MD, [facility] CPT-4: 73393 12/06/2016 ([id number]) 23385 EST. PATIENT, LEVEL IV Diagnosis: Essential (primary) hypertension[ICD10: I10] Diagnosis: Chronic kidney disease, stage 3 (moderate)[ICD10: N18.3] Dorene Sanchez MD, [facility] CPT-4: 38167 11/28/2016 ([id number]) 26220 EST. PATIENT, LEVEL IV Diagnosis: Essential (primary) hypertension[ICD10: I10] Diagnosis: Chronic pain syndrome[ICD10: G89.4] Diagnosis: Chronic kidney disease, stage 3 (moderate)[ICD10: N18.3] Diagnosis: Vitamin B12 deficiency anemia due to intrinsic factor deficiency[ ICD10: D51.0] Diagnosis: Other specified hypothyroidism[ICD10: E03.8] Dorene Sanchez MD, [facility] CPT-4: 18347 05/04/2016 06674 EST. PATIENT, LEVEL III Diagnosis: Chronic pain syndrome[ICD10: G89.4] Diagnosis: Essential (primary) hypertension[ICD10: I10] Diagnosis: Other specified hypothyroidism[ICD10: E03.8] Kiki Sanchez MD, [facility] CPT-4: 47824 11/04/2015 66005 EST. PATIENT, LEVEL III Diagnosis: Chronic pain syndrome[ICD10: G89.4] Diagnosis: Essential (primary) hypertension[ICD10: I10] Kiki Sanchez MD, [facility] CPT-4: 32978 07/30/2015 ([id number]) OFFICE/OUTPATIENT VISIT NEW Diagnosis: ESSENTIAL HYPERTENSION[ICD9: 401.9] Diagnosis: HYPOTHYROIDISM[ICD9: 244.9] Diagnosis: ANEMIA[ICD9: 285.9] Diagnosis: Vitamin B12 deficiency[ICD9: 266.2] Diagnosis: CHRONIC PAIN SYNDROME[ICD9: 338.4] Diagnosis: Chronic renal insufficiency, stage III (moderate)[ICD9: 585.3] Diagnosis: GOUT[ICD9: 274.9] [facility] CPT-4: 97164 01/26/2015 Plan of Care Planned Activity Notes Codes Status Date Visit Plan: Hypertension - well controlled - [...] Dr Moreno 08/29/2018 Appointment: Sarah Hernandes WPtel: [phone] [place] (15 min) Moderate 08/29/2018 Patient Education: Patient Medication Summary Completed 08/29/2018 Referral: Edgard Rivera MD WPtel[address]. Patient informed. Referral info faxed. Completed 02/27/2018 Visit Plan: Recurrent prostate cancer - I have recommended a referral to Dr. Rivera. We discussed the case at length today- he is not interested in extensive treatment, but if possible to extend his quantity and quality of life, he would like to try. 02/25/2018 Appointment: Dorene Sanchez WPtel: [facility] [place] (15 min) Moderate 02/25/2018 Patient Education: Patient Medication Summary Completed 02/25/2018 Care Plan: Referral Order SNOMED-CT : [id number] Pending 02/25/2018 Visit Plan: Intermittent abdominal pain, jaundice, itching - will check labs and treat as indicated - pt is to go to the ER with any acute change in symptoms or any acute concerns. 02/20/2018 Appointment: Kiki Menjivar WPtel: [facility] (30 min) Complex 02/20/2018 Patient Education: [...] control. 02/05/2018 Appointment: [facility] Hernandes [facility]Ptel[facility] [phone] [phone] (30 min) Complex 02/05/2018 Patient Education: [...] care surrogate. 11/30/2017 Appointment: Sarah Hernandes [facility]Ptel: [address] [phone] [place] [address] - Annual Wellness Visit 11/30/2017 Patient Education: [...] to 1.2 11/08/2017 Appointment: Dorene Sanchez WPtel[facility] [phone] [facility] (15 min) Moderate 11/08/2017 Patient Education: Patient [...] over-medication. 09/20/2017 Appointment: Dorene Sanchez [facility]el[facility] [phone] [facility] (15 min) Moderate 09/20/2017 Patient Education: Patient [...] glucose control. 06/25/2017 Appointment: Sarah Hernandes WPtel: [phone] (30 min) Complex 06/25/2017 Patient Education: Patient Medication Summary Completed 06/25/2017 Appointment: Sarah Hernandes WPtel: [phone] (30 min) Complex 06/22/2017 Visit Plan: Cellulitis - start oral antibiotics as previously directed, return to clinic as previously directed, call for acute change in symptoms, worsening redness, warmth, discharge. 06/07/2017 Appointment: Sarah Hernandes WPtel: [phone] (30 min) Complex 06/07/2017 Patient Education: Patient Medication Summary Completed 06/07/2017 Patient Education: Obesity Completed 06/07/2017 Appointment: Dorene Sanchez WPtel: [phone] (15 min) Moderate 05/31/2017 Visit Plan: Edema-significantly improved-no changes Ulcer- left lower leg and foot-seeing Dr Norwood at wound care-appt scheduled with Dr Frausto for vascular evaluation 05/03/2017 Appointment: Sarah Hernandes WPtel: [phone] [place] (15 min) Moderate 05/03/2017 Patient Education: Patient Medication Summary Completed 05/03/2017 Patient Education: Obesity Completed 05/03/2017 Visit Plan: Qmrtzzimcv-hldiexntl-hupoeso to finish abx-no further treatment indicated Edema-significantly improved-no longer weeping- continue unna boots twice weekly with home health 04/02/2017 Appointment: Sarah Hernandes WPtel: [phone] [place] (30 min) Complex 04/02/2017 Patient Education: Patient Medication Summary Completed 04/02/2017 Patient Education: Obesity Completed 04/02/2017 Visit Plan: Cellulitis-left leg-continue levaquin Edema- increase lasix/potassium-consult [facility] for unna boots/dressing changes 03/26/2017 Appointment: Sarah Hernandes WPtel: [phone] [place] (15 min) Moderate 03/26/2017 Patient Education: [...] indomethacin-stop aleve 03/22/2017 Appointment: Sarah Hernandes WPtel: [phone] (15 min) Moderate 03/22/2017 Patient Education: [...] control. 03/08/2017 Appointment: Sarah Hernandes WPtel: [address] [place], [place] [phone] (30 min) Complex 03/08/2017 Patient Education: Patient [...] care surrogate. 11/30/2016 Appointment: Sarah Hernandes WPtel: [phone] [phone] [facility] - Annual Wellness Visit 11/30/2016 Patient [...] in fluids. 11/28/2016 Appointment: Dorene Sanchez [facility]Ptel: [phone] [phone] (15 min) Moderate 11/28/2016 Patient Education: Patient [...] 01/26/2015 Referral: Edgard Rivera MD WPtel: [address] Referral Appointment Requested Instructions Comment . [...] AND POTASSIUM TO TWICE DAILY [facility] . Cellulitis-left leg-continue levaquin Edema-increase lasix/potassium-[facility]dressing changes WRAP LEGS-THIGHS [...] YEAR SHINGLES VACCINATION TO BE ADMINISTERED AT [facility] RECOMMEND OBTAINING MEDICAL POWER OF PET CARE WORKER AND LIVING WILL PATIENT DOES NOT HAVE [...] YEAR SHINGLES VACCINATION TO BE ADMINISTERED AT [facility] RECOMMEND OBTAINING MEDICAL POWER OF PET CARE WORKER AND LIVING WILL PATIENT DOES NOT HAVE [...] YEAR SHINGLES VACCINATION TO BE ADMINISTERED AT [facility] RECOMMEND OBTAINING MEDICAL POWER OF PET CARE WORKER AND LIVING WILL PATIENT DOES NOT HAVE [...] allow for greater blood glucose control. . Xqtgwnpgwl-lwotikyml-sstizju to finish abx-no further treatment indicated Edema-significantly [...]
--- OUTSIDE RECORDS SUMMARY | 2018-11-26 11:51 | XMS REPORT | CCD ---
Author Author Dorene Sanchez Organization [facility] Address [address] [place] [address] Phone Care Team Providers Care Audioprosthologist Name Role Phone PP Unavailable CCM Unavailable Summary Purpose Interface Exchange Insurance Providers Payer name Policy type / Coverage type Covered libertarian ID Effective Begin Date Effective End Date WPS Medicare Part B Medicare Part B [id number] Unknown Unknown Family history Father Diagnosis Age At Onset Stroke Unknown Mother Diagnosis Age At Onset Stroke Unknown Diabetes mellitus Type 2 Unknown Social History Social History Element Codes Description Effective Dates Tobacco history SNOMED CT: 404496185 Currently uses smokeless tobacco Chews 05/04/2016 Marital status Unknown 01/26/2015 Number of children Unknown 3 01/26/2015 Employment Unknown Retired 01/26/[address]: 431199848 Never drinks alcohol quit in July 2014 [...] Fill Instructions oxycodone 20 mg tablet RxNorm: 2587836 1/2 Tablet(s) PO Q6 as needed 09/12/2018 10/11/2018 Active oxycodone 20 mg tablet RxNorm: 2086955 1/2 Tablet(s) PO Q6 as needed 08/15/2018 09/11/2018 Inactive oxycodone 20 mg tablet RxNorm: 0811671 1/2 Tablet(s) PO Q6 as needed 07/16/2018 08/14/2018 Inactive oxycodone 20 mg tablet RxNorm: 2554791 1/2 Tablet(s) PO Q6 as needed 06/14/2018 07/13/2018 Inactive gabapentin 100 mg capsule RxNorm: 946186 TAKE ONE CAPSULE BY MOUTH IN THE EVENING AT 5PM 05/30/2018 09/26/2018 Active oxycodone 20 mg tablet RxNorm: 4790722 1/2 Tablet(s) PO Q6 as needed 05/15/2018 06/13/2018 Inactive oxycodone 20 mg tablet RxNorm: 8129600 1/2 Tablet(s) PO Q6 as needed 04/12/2018 05/11/2018 Inactive oxycodone 20 mg tablet RxNorm: 4018192 1/2 Tablet(s) PO Q6 as needed 03/11/2018 04/09/2018 Inactive levothyroxine 200 mcg tablet RxNorm: 429174 1 Tablet(s) PO daily 02/21/2018 02/15/2019 Active Cipro 500 mg tablet RxNorm: 679528 1 Tablet(s) PO BID 201702/20/2018 Inactive levothyroxine 200 mcg tablet RxNorm: 447387 1 Tablet(s) PO daily 02/21/2018 02/20/2018 Inactive Cipro 500 mg tablet RxNorm: 806317 1 Tablet(s) PO BID 201703/02/2018 Inactive oxycodone 20 mg tablet RxNorm: 0905381 1/2 Tablet(s) PO Q6 as needed 02/12/2018 03/10/2018 Inactive oxycodone 20 mg tablet RxNorm: 1102857 1/2 Tablet(s) PO Q6 as needed 01/16/2018 02/11/2018 Inactive gabapentin 100 mg capsule RxNorm: 298167 TAKE ONE CAPSULE BY MOUTH IN THE EVENING AT 5PM 01/15/2018 05/29/2018 Inactive bisoprolol 5 mg-hydrochlorothiazide 6.25 mg tablet RxNorm: 289764 TAKE ONE TABLET BY MOUTH DAILY 01/01/2018 12/26/2018 Active oxycodone 20 mg tablet RxNorm: 9104478 1/2 Tablet(s) PO Q6 as needed 12/20/2017 01/14/2018 Inactive oxycodone 20 mg tablet RxNorm: 3665919 1/2 Tablet(s) PO Q6 as needed 11/20/2017 12/19/2017 Inactive Victoza 2-Dino 0.6 mg/0.1 mL (18 mg/3 mL) subcutaneous pen injector RxNorm: 221158 1.2 Milligram(s) SQ daily 11/08/201712/07 Inactive oxycodone 20 mg tablet RxNorm: 8081997 1/2 Tablet(s) PO Q6 as needed 10/19/2017 11/17/2017 Inactive Lasix 20 mg tablet RxNorm: 418496 1 Tablet(s) QAM at 5pm 12/201703/18/2018 Inactive gabapentin 100 mg capsule RxNorm: 569807 1 Capsule(s) PO QPM at 5 pm 09/20/2017 01/14/2018 Inactive oxycodone 20 mg tablet RxNorm: 1758015 1/2 Tablet(s) PO Q6 as needed 09/18/2017 10/17/2017 Inactive oxycodone 20 mg tablet RxNorm: 5833307 1/2 Tablet(s) PO Q6 as needed 08/14/2017 09/12/2017 Inactive ketoconazole 2 % topical cream RxNorm: 657734 1 Gram(s) TOP BID to affected area until healed 08/03/2017 No Stop Date Active oxycodone 20 mg tablet RxNorm: 6151931 1/2 Tablet(s) PO Q6 as needed 07/17/2017 08/13/2017 Inactive pen needle, diabetic 31 gauge x 5/16" RxNorm: 1 Unit Dose Miscellaneous daily 06/25/2017 03/21/2018 Inactive daily use with victoza Bactrim DS 800 mg-160 mg tablet RxNorm: 377628 1 Tablet(s) PO BID Dr Norwood 06/25/2017 07/04/2017 Inactive Victoza 2-Dino 0.6 mg/0.1 mL (18 mg/3 mL) subcutaneous pen injector RxNorm: 373906 0.6 Milligram(s) SQ daily 06/25/201707/24 Inactive doxycycline hyclate 100 mg tablet RxNorm: 833916 1 Tablet(s) PO BID Dr Norwood 06/21/2017 06/30/2017 Inactive oxycodone 20 mg tablet RxNorm: 7471394 1/2 Tablet(s) PO Q6 as needed 06/14/2017 07/13/2017 Inactive clindamycin 150 mg capsule RxNorm: 723611 1 Capsule(s) PO Q8 06/16/2017 Inactive levothyroxine 175 mcg tablet RxNorm: 687245 TAKE ONE TABLET BY MOUTH DAILY 06/04/2017 09/01/2017 Inactive levothyroxine 175 mcg tablet RxNorm: 277273 TAKE ONE TABLET BY MOUTH DAILY 06/04/2017 11/30/2017 Inactive bisoprolol 5 mg-hydrochlorothiazide 6.25 mg tablet RxNorm: 549922 TAKE ONE TABLET BY MOUTH DAILY 05/24/2017 11/19/2017 Inactive oxycodone 20 mg tablet RxNorm: 1268618 1/2 Tablet(s) PO Q6 as needed 05/14/2017 06/12/2017 Inactive potassium chloride ER 10 mEq capsule,extended release RxNorm: 098622 TAKE ONE CAPSULE BY MOUTH DAILY NEEDED FOR 5 DAYS THEN NEEDED WITH LASIX 04/17/2017 10/13/2017 Inactive Lasix 20 mg tablet RxNorm: 404939 TAKE ONE TABLET BY MOUTH DAILY NEEDED 04/17/2017 09/19/2017 Inactive oxycodone 20 mg tablet RxNorm: 0544830 1/2 Tablet(s) PO Q6 as needed 04/12/2017 05/11/2017 Inactive Colcrys 0.6 mg tablet RxNorm: 823305 2 tabs at onset then may repeat 1 tab in 1 hours if needed- Tablet(s) PO 04/09/2017 No Stop Date Active then take daily until gout resolved Bactrim DS 800 mg-160 mg tablet RxNorm: 189882 1 Tablet(s) PO BID 04/09/2017 04/08/2017 Inactive dc levaquin Bactrim DS 800 mg-160 mg tablet RxNorm: 284906 1 Tablet(s) PO BID 04/09/2017 04/15/2017 Inactive dc levaquin Levaquin 500 mg tablet RxNorm: 350529 1 Tablet(s) PO daily 04/02/2017 Inactive Levaquin 500 mg tablet RxNorm: 764634 1 Tablet(s) PO daily 06/06/2017 Inactive indomethacin 25 mg capsule RxNorm: 882989 1 Capsule(s) PO TID PRN 03/22/2017 03/22/2017 Inactive Lasix 20 mg tablet RxNorm: 726137 1 Tablet(s) PO QDAY PRN 02/201704/16/2017 Inactive daily x 5 days then as needed Levaquin 500 mg tablet RxNorm: 232527 1 Tablet(s) PO daily 02/201703/31/2017 Inactive potassium chloride ER 10 mEq capsule,extended release RxNorm: 248769 1 Capsule(s) PO QDAY PRN 03/22/2017 04/16/2017 Inactive daily x 5 days then as needed with lasix oxycodone 20 mg tablet RxNorm: 2843616 1/2 Tablet(s) PO Q6 as needed 03/08/2017 04/06/2017 Inactive bisoprolol 5 mg-hydrochlorothiazide 6.25 mg tablet RxNorm: 889176 TAKE ONE TABLET BY MOUTH DAILY 02/14/2017 05/14/2017 Inactive oxycodone 20 mg tablet RxNorm: 5482099 1/2 Tablet(s) PO Q6 as needed 02/08/2017 03/07/2017 Inactive oxycodone 20 mg tablet RxNorm: 2784492 1/2 Tablet(s) PO Q6 as needed 01/08/2017 02/06/2017 Inactive levothyroxine 175 mcg tablet RxNorm: 105727 1 Tablet(s) PO daily 12/06/2016 06/03/2017 Inactive [SAVINGS FOR NON-COVERED DRUGS -- BIN:[id number], PCN: ASPROD1, Group: XXXXX, ID# XXXXXXX, Questions: . THIS IS NOT INSURANCE.] oxycodone 20 mg tablet RxNorm: 4564298 1/2 Tablet(s) PO Q6 as needed 12/04/2016 01/02/2017 Inactive oxycodone 20 mg tablet RxNorm: 3570169 1/2 Tablet(s) PO Q6 as needed 11/09/2016 12/03/2016 Inactive bisoprolol 5 mg-hydrochlorothiazide 6.25 mg tablet RxNorm: 225788 TAKE ONE TABLET BY MOUTH DAILY 11/08/2016 02/05/2017 Inactive oxycodone 20 mg tablet RxNorm: 2971078 1/2 Tablet(s) PO Q6 as needed 10/05/2016 11/03/2016 Inactive oxycodone 20 mg tablet RxNorm: 4512220 1/2 Tablet(s) PO Q6 as needed 09/06/2016 10/04/2016 Inactive oxycodone 20 mg tablet RxNorm: 3869317 1/2 Tablet(s) PO Q6 as needed 08/07/2016 09/05/2016 Inactive oxycodone 20 mg tablet RxNorm: 6995034 1/2 Tablet(s) PO Q6 as needed 07/04/2016 08/06/2016 Inactive oxycodone 20 mg tablet RxNorm: 6948905 1/2 Tablet(s) PO Q6 as needed 05/29/2016 07/03/2016 Inactive levothyroxine 150 mcg tablet RxNorm: 050719 1 Tablet(s) PO daily 04/10/2016 04/09/2016 Inactive [SAVINGS FOR NON-COVERED DRUGS -- BIN:[id number], PCN: ASPROD1, Group: XXXXX, ID# XXXXXXX, Questions: . THIS IS NOT INSURANCE.] oxycodone 20 mg tablet RxNorm: 9474300 1/2 Tablet(s) PO Q6 as needed 04/10/2016 05/28/2016 Inactive levothyroxine 150 mcg tablet RxNorm: 848332 1 Tablet(s) PO daily 04/10/2016 10/06/2016 Inactive [SAVINGS FOR NON-COVERED DRUGS -- BIN:075936, PCN: ASPROD1, Group: XXXXX, ID# XXXXXXX, Questions: . THIS IS NOT INSURANCE.] bisoprolol 5 mg-hydrochlorothiazide 6.25 mg tablet RxNorm: 787104 1 Tablet(s) PO daily 02/16/2016 12/31/2017 Inactive oxycodone 20 mg tablet RxNorm: 4339625 1/2 Tablet(s) PO Q6 as needed 02/16/2016 04/09/2016 Inactive oxycodone 20 mg tablet RxNorm: 7650920 1/2 Tablet(s) PO Q6 as needed 01/04/2016 02/15/2016 Inactive bisoprolol 5 mg-hydrochlorothiazide 6.25 mg tablet RxNorm: 477175 1 Tablet(s) PO daily 11/19/2015 01/17/2016 Inactive bisoprolol 5 mg-hydrochlorothiazide 6.25 mg tablet RxNorm: 620209 1 Tablet(s) PO daily 11/04/2015 11/18/2015 Inactive oxycodone 20 mg tablet RxNorm: 5618227 1/2 Tablet(s) PO Q6 as needed 10/27/2015 01/03/2016 Inactive levothyroxine 150 mcg tablet RxNorm: 363949 1 Tablet(s) PO daily 08/26/2015 02/21/2016 Inactive [SAVINGS FOR NON-COVERED DRUGS -- BIN:037875, PCN: ASPROD1, Group: XXXXX, ID# XXXXXXX, Questions: . THIS IS NOT INSURANCE.] bisoprolol 5 mg-hydrochlorothiazide 6.25 mg tablet RxNorm: 347913 1 Tablet(s) PO daily 08/26/2015 10/24/2015 Inactive oxycodone 10 mg tablet RxNorm: 3977518 1 Tablet(s) PO Q6 as needed 05/06/2015 10/26/2015 Inactive levothyroxine 150 mcg tablet RxNorm: 647261 1 Tablet(s) PO daily 02/05/2015 08/03/2015 Inactive [SAVINGS FOR NON-COVERED DRUGS -- BIN:136163, PCN: ASPROD1, Group: XXXXX, ID# XXXXXXX, Questions: . THIS IS NOT INSURANCE.] Vitamin D2 50,000 unit capsule RxNorm: 190597 1 Capsule(s) PO weekly 02/05/2015 05/05/2015 Inactive [SAVINGS FOR NON-COVERED DRUGS -- BIN:137728, PCN: ASPROD1, Group: XXXXX, ID# XXXXXXX, Questions: . THIS IS NOT INSURANCE.] Vitamin D2 50,000 unit capsule RxNorm: 480253 1 Capsule(s) PO weekly 02/05/2015 02/04/2015 Inactive bisoprolol 5 mg-hydrochlorothiazide 6.25 mg tablet RxNorm: 481973 1 Tablet(s) PO daily 01/26/2015 02/24/2015 Inactive levothyroxine 200 mcg tablet RxNorm: 264648 1 Tablet(s) PO daily 01/26/2015 01/25/2015 Inactive levothyroxine 200 mcg tablet RxNorm: 376598 1 Tablet(s) PO every other day 01/26/2015 02/04/2015 Inactive [SAVINGS FOR NON-COVERED DRUGS -- BIN:343880, PCN: ASPROD1, Group: XXXXX, ID# XXXXXXX, Questions: . THIS IS NOT INSURANCE.] aspirin 81 mg chewable tablet RxNorm: 794332 1 Tablet(s) PO daily No Start Date Active Plavix 75 mg tablet RxNorm: 688945 1 Tablet(s) PO daily manage by Dr Baig No Start Date Active simvastatin 40 mg tablet RxNorm: 112943 1 Tablet(s) PO QHS managed by Dr Baig No Start Date Active Colcrys 0.6 mg tablet RxNorm: 348350 2 tabs at onset then may repeat 1 tab in 1 hours if needed- Tablet(s) PO No Start Date 04/08/2017 Inactive then take daily until gout resolved aspirin 325 mg tablet RxNorm: 546061 1 Tablet(s) PO daily No Start Date 05/03/2016 Inactive levothyroxine 75 mcg tablet RxNorm: 153150 1 Tablet(s) PO every other day No Start Date 02/04/2015 Inactive takes qod with 200mcg oxycodone 10 mg tablet RxNorm: 9546171 1 Tablet(s) PO Q6 as needed No Start Date 05/05/2015 Inactive ketoconazole 2 % topical cream RxNorm: 538858 1 Gram(s) TOP BID to affected area [...] Code Item Item Code Result Date %Hba1C Pau354 % HbA1c 61126-2 6.4 % 08/30/2018 %Hba1C Ccz852 Gluc Ave 137 mg/dL 08/30/2018 Culture Urine [id number] URINE CULTURE SEE NOTES 02/22/2018 Urine Culture [...] 24.5 pg 02/20/2018 Cbc With Differential Ord2 [place]% 8.9 % 02/20/2018 Cbc With Differential Ord2 [...] 0.81 K/ul 02/20/2018 Cbc With Differential Ord2 [place] ABS# 0.7 K/ul 02/20/2018 Cbc With Differential Ord2 Eos ABS# 0.4 K/ul 02/20/2018 Cbc With Differential Ord2 Baso ABS# 0.0 K/ul 02/20/2018 %Hba1C Hkj789 % HbA1c 61903-5 7.7 % 02/20/2018 %Hba1C Wpa467 Gluc Ave 174 mg/dL 02/20/2018 Lipase Imb681 LIPASE 17 U/L 02/20/2018 Microalbumin Vji652 MicroAlb 6.5 mg/dL 02/20/2018 Amylase Ord34 AMYLASE 15 U/L 02/20/2018 Free T4 Oep944 FREE T4 0.61 ng/dL 02/20/2018 Lipid Ord30 CHOL 203 mg/dL 02/20/2018 Lipid Ord30 HDL 7.0 mg/dl 02/20/2018 Lipid Ord30 TRIG 271 mg/dL 02/20/2018 Lipid Ord30 LDL 142 mg/dL 02/20/2018 Lipid Ord30 C/HDL 29.0 Ratio 02/20/2018 Comp Metabolic Cdr539 NA 134 mEq/L 02/20/2018 Comp Metabolic Mnm360 K 3.6 mEq/L 02/20/2018 Comp Metabolic Llb445 CL 96 mEq/L 02/20/2018 Comp Metabolic Ygd409 CO2 29.0 mEq/L 02/20/2018 Comp Metabolic Njr793 ANION GAP 13 02/20/2018 Comp Metabolic Jsf782 GLUCOSE 165 mg/dL 02/20/2018 Comp Metabolic Gue987 Creat 1.2 mg/dL 02/20/2018 Comp Metabolic Qfn529 eGFR 63 ml/min/1.73m2 02/20/2018 Comp Metabolic Uli454 BUN 14 mg/dL 02/20/2018 Comp Metabolic Dtv929 B/C Ratio 11.6 Ratio 02/20/2018 Comp Metabolic Onj998 CALCIUM 8.5 mg/dL 02/20/2018 Comp Metabolic Vra178 ALK PHOS 633 U/L 02/20/2018 Comp Metabolic Exv016 AST(SGOT) 112 U/L 02/20/2018 Comp Metabolic Xqq844 ALT(SGPT) 148 U/L 02/20/2018 Comp Metabolic Ghl314 BILI T 6.8 mg/dL 02/20/2018 Comp Metabolic Tfk104 ALBUMIN 3.3 g/dL 02/20/2018 Comp Metabolic Avl387 TPRO 5.9 g/dL 02/20/2018 Comp Metabolic Cmg648 GLOB 2.6 g/dL 02/20/2018 Comp Metabolic Qqx607 A/G Ratio 1.3 Ratio 02/20/2018 Comp Metabolic Oca413 Osmo 272 mOsmo 02/20/2018 Total Psa Ord10 [...] Metabolic Ord15 CALCIUM 9.2 mg/dL 11/09/2017 %Hba1C Fyd807 % HbA1c 03409-9 8.0 % 11/09/2017 %Hba1C Emr101 Gluc Ave 183 mg/dL 11/09/2017 Metabolic Ord15 [...] Ord15 CALCIUM 8.7 mg/dL 06/25/2017 Culture Wound [id number] WOUND CULTURE SEE NOTES 04/09/2017 Culture Wound [id number] Continued Results 04/09/2017 Amylase Ord34 AMYLASE 19 [...] 27.9 pg 03/22/2017 Cbc With Differential Ord2 [place]% 8.3 % 03/22/2017 Cbc With Differential Ord2 [...] 1.35 K/ul 03/22/2017 Cbc With Differential Ord2 [place] ABS# 1.4 K/ul 03/22/2017 Cbc With Differential Ord2 Eos ABS# 0.2 K/ul 03/22/2017 Cbc With Differential Ord2 Baso ABS# 0.0 K/ul 03/22/2017 Comp Metabolic Pbj441 NA 134 mEq/L 03/22/2017 Comp Metabolic Tnz912 K 4.5 mEq/L 03/22/2017 Comp Metabolic Jyx138 CL 93 mEq/L 03/22/2017 Comp Metabolic Jks286 CO2 31.0 mEq/L 03/22/2017 Comp Metabolic Stt226 ANION GAP 15 03/22/2017 Comp Metabolic Kgj071 GLUCOSE 198 mg/dL 03/22/2017 Comp Metabolic Pto861 Creat 1.5 mg/dL 03/22/2017 Comp Metabolic Thb400 eGFR 50 ml/min/1.73m2 03/22/2017 Comp Metabolic Jcb896 BUN 32 mg/dL 03/22/2017 Comp Metabolic Iow296 B/C Ratio 21.6 Ratio 03/22/2017 Comp Metabolic Eey673 CALCIUM 8.4 mg/dL 03/22/2017 Comp Metabolic Gxk259 ALK PHOS 245 U/L 03/22/2017 Comp Metabolic Bui590 AST(SGOT) 18 U/L 03/22/2017 Comp Metabolic Rsd909 ALT(SGPT) 17 U/L 03/22/2017 Comp Metabolic Krx358 BILI T 0.8 mg/dL 03/22/2017 Comp Metabolic Ocn907 ALBUMIN 2.9 g/dL 03/22/2017 Comp Metabolic Arx631 TPRO 6.3 g/dL 03/22/2017 Comp Metabolic Hsf578 GLOB 3.4 g/dL 03/22/2017 Comp Metabolic Gqp178 A/G Ratio 0.8 Ratio 03/22/2017 Comp Metabolic Frm993 Osmo 281 mOsmo 03/22/2017 Lipase Lie915 LIPASE 12 U/L 03/22/2017 Comp Metabolic Bkr264 NA 142 mEq/L 03/09/2017 Comp Metabolic Ubw436 K 4.8 mEq/L 03/09/2017 Comp Metabolic Lug838 CL 103 mEq/L 03/09/2017 Comp Metabolic Avq339 CO2 30.0 mEq/L 03/09/2017 Comp Metabolic Bev330 ANION GAP 14 03/09/2017 Comp Metabolic Lne103 GLUCOSE 152 mg/dL 03/09/2017 Comp Metabolic Xex746 Creat 1.3 mg/dL 03/09/2017 Comp Metabolic Gbj177 eGFR 56 ml/min/1.73m2 03/09/2017 Comp Metabolic Fyo016 BUN 23 mg/dL 03/09/2017 Comp Metabolic Buc857 B/C Ratio 17.3 Ratio 03/09/2017 Comp Metabolic Scw554 CALCIUM 8.5 mg/dL 03/09/2017 Comp Metabolic Vcw861 ALK PHOS 97 U/L 03/09/2017 Comp Metabolic Gas928 AST(SGOT) 10 U/L 03/09/2017 Comp Metabolic Ajh589 ALT(SGPT) 6 U/L 03/09/2017 Comp Metabolic Sja426 BILI T 0.4 mg/dL 03/09/2017 Comp Metabolic Hxz057 ALBUMIN 3.4 g/dL 03/09/2017 Comp Metabolic Fve231 TPRO 6.2 g/dL 03/09/2017 Comp Metabolic Mlw273 GLOB 2.8 g/dL 03/09/2017 Comp Metabolic Ewe499 A/G Ratio 1.2 Ratio 03/09/2017 Comp Metabolic Irp124 Osmo 290 mOsmo 03/09/2017 Free T4 Tca981 FREE T4 0.86 ng/dL 03/08/2017 Cbc With [...] 28.2 pg 03/08/2017 Cbc With Differential Ord2 [place]% 8.7 % 03/08/2017 Cbc With Differential Ord2 [...] 1.63 K/ul 03/08/2017 Cbc With Differential Ord2 [place] ABS# 0.9 K/ul 03/08/2017 Cbc With Differential Ord2 Eos ABS# 0.5 K/ul 03/08/2017 Cbc With Differential Ord2 Baso ABS# 0.0 K/ul 03/08/2017 Tsh Ord6 hTSH II 4.52 uIU/mL 03/08/2017 %Hba1C Qec896 % HbA1c 07083-3 8.5 % 03/08/2017 %Hba1C Qps594 Gluc Ave 197 mg/dL 03/08/2017 %Hba1C Gzd430 % HbA1c 37541-6 9.8 % 12/04/2016 %Hba1C Xkv568 Gluc Ave 235 mg/dL 12/04/2016 Tsh Ord6 hTSH II 10.65 uIU/mL 11/30/2016 Comp Metabolic Ytm108 NA 134 mEq/L 11/30/2016 Comp Metabolic Wtb862 K 5.0 mEq/L 11/30/2016 Comp Metabolic Lqb595 CL 95 mEq/L 11/30/2016 Comp Metabolic Vnu000 CO2 34.0 mEq/L 11/30/2016 Comp Metabolic Kfg486 ANION GAP 10 11/30/2016 Comp Metabolic Yfj215 GLUCOSE 226 mg/dL 11/30/2016 Comp Metabolic Ieh139 Creat 1.3 mg/dL 11/30/2016 Comp Metabolic Cnz919 eGFR 56 ml/min/1.73m2 11/30/2016 Comp Metabolic Wbo423 BUN 21 mg/dL 11/30/2016 Comp Metabolic Cgg160 B/C Ratio 15.7 Ratio 11/30/2016 Comp Metabolic Ksz623 CALCIUM 8.9 mg/dL 11/30/2016 Comp Metabolic Xtk455 ALK PHOS 112 U/L 11/30/2016 Comp Metabolic Dqf045 AST(SGOT) 9 U/L 11/30/2016 Comp Metabolic Dke743 ALT(SGPT) 7 U/L 11/30/2016 Comp Metabolic Wgn786 BILI T 0.6 mg/dL 11/30/2016 Comp Metabolic Kxj078 ALBUMIN 3.6 g/dL 11/30/2016 Comp Metabolic Mza862 TPRO 6.4 g/dL 11/30/2016 Comp Metabolic Zpt812 GLOB 2.9 g/dL 11/30/2016 Comp Metabolic Euf121 A/G Ratio 1.2 Ratio 11/30/2016 Comp Metabolic Rbo381 Osmo 278 mOsmo 11/30/2016 Lipid Ord30 CHOL [...] 13.0 % 11/30/2016 Cbc With Differential Ord2 [place]% 7.9 % 11/30/2016 Cbc With Differential Ord2 [...] 1.34 K/ul 11/30/2016 Cbc With Differential Ord2 [place] ABS# 0.8 K/ul 11/30/2016 Cbc With Differential Ord2 Eos ABS# 0.3 K/ul 11/30/2016 Cbc With Differential Ord2 Baso ABS# 0.0 K/ul 11/30/2016 Free T4 Jyn375 FREE T4 0.89 ng/dL 11/30/2016 Review of [...] Codes Date ADMIN PNEUMOCOCCAL VACCINE SNOMED CT: 81032956 CPT-4: G0009 02/05/2018 Pneumococcal Polysaccharide Vaccine, 23-Valent, Ad CPT-4: 35537 02/05/2018 PPPS, SUBSEQ VISIT CPT -4: G0439 11/30/2017 URINALYSIS NONAUTO W/O SCOPE CPT-4: 40005 03/22/2017 URINALYSIS NONAUTO W/O SCOPE CPT-4: 74268 03/21/2017 PPPS, SUBSEQ VISIT CPT -4: G0439 11/30/2016 PNEUMOCOCCAL VACC 13 JAVIER IM Formatting Model/CDA Sections, Assigned to SNOMED CT: 03004313 CPT-4: 21701Rachffh 11/30/2016 ADMIN PNEUMOCOCCAL VACCINE SNOMED CT: 26181590 CPT-4: G0009 11/30/2016 Vital Signs Date Vital 08/29/2018 Blood Pressure 1: 104/60 Code : 8480-6 BMI: 34.6 Code : 10290-2 Heart Rate 1 : 68 bpm Height: 5'10" SpO2: 98% Weight: 241 lbs 02/25/2018 Blood Pressure 1: 120/70 Code : 8480-6 BMI: 37.0 Code : 65033-7 Heart Rate 1 : 51 bpm Height: 5'10" SpO2: 97% Weight: 258 lbs 02/20/2018 Blood Pressure 1: 124/70 Code : 8480-6 BMI: 38.0 Code : 77731-8 Heart Rate 1 : 60 bpm Height: 5'10" SpO2: 96% Weight: 265 lbs 02/05/2018 Blood Pressure 1: 116/66 Code : 8480-6 BMI: 38.0 Code : 37109-9 Heart Rate 1 : 63 bpm Height: 5'10" SpO2: 98% Weight: 265 lbs 11/30/2017 Blood Pressure 1: 132/60 Code : 8480-6 BMI: 37.0 Code : 45010-5 Heart Rate 1 : 100 bpm Height: 5'10 " SpO2: 96% Waist Measure (cm): 122 cm Weight: 258 lbs 11/08/2017 Blood Pressure 1: 126/64 Code : 8480-6 BMI: 37.2 Code : 78393-3 Heart Rate 1 : 92 bpm Height: 5'10" SpO2: 94% Weight: 259 lbs 09/20/2017 Blood Pressure 1: 122 Code : 8480-6 BMI: 36.9 Code : 54054-5 Heart Rate 1 : 57 bpm Height: 5'10" SpO2: 96% Weight: 257 lbs 06/25/2017 Blood Pressure 1: 124/68 Code : 8480-6 BMI: 37.0 Code : 53602-2 Height: 5'10 " Weight: 258 lbs 06/07/2017 Blood Pressure 1: 122/64 Code : 8480-6 BMI: 37.0 Code : 45607-8 Heart Rate 1 : 60 bpm Height: 5'10" SpO2: 94% Temperature: 36.4 (C) / 97.6 (F) Weight: 258 lbs 05/03/2017 Blood Pressure 1: 118/74 Code : 8480-6 BMI: 38.2 Code : 80524-7 Heart Rate 1 : 52 bpm Height: 5'10" SpO2: 98% Weight: 266 lbs 04/02/2017 Blood Pressure 1: 118/62 Code : 8480-6 BMI: 38.2 Code : 53412-6 Heart Rate 1 : 53 bpm Height: 5'10" SpO2: 93% Weight: 266 lbs 03/26/2017 Blood Pressure 1: 114/62 Code : 8480-6 BMI: 38.3 Code : 46538-3 Height: 5'10 " Weight: 267 lbs 03/22/2017 Blood Pressure 1: 122/64 Code : 8480-6 BMI: 40.0 Code : 07068-4 Heart Rate 1 : 52 bpm Height: 5'10" SpO2: 94% Weight: 279 lbs 03/08/2017 Blood Pressure 1: 124/70 Code : 8480-6 BMI: 39.4 Code : 64877-3 Heart Rate 1 : 51 bpm Height: 5'10" SpO2: 94% Weight: 274 lbs 8 oz 12/06/2016 Blood Pressure 1: 126/62 Code : 8480-6 BMI: 40.3 Code : 40777-4 Heart Rate 1 : 50 bpm Height: 5'10" SpO2: 94% Weight: 281 lbs 11/30/2016 Blood Pressure 1: 112/62 Code : 8480-6 BMI: 40.3 Code : 21781-3 Heart Rate 1 : 52 bpm Height: 5'10" SpO2: 93% Waist Measure (cm): 135 cm Weight: 281 lbs 11/28/2016 Blood Pressure 1: 132/72 Code : 8480-6 BMI: 40.3 Code : 38089-9 Heart Rate 1 : 50 bpm Height: 5'10" Weight: 281 lbs 05/04/2016 Blood Pressure 1: 128/78 Code : 8480-6 BMI: 38.5 Code : 52077-9 Heart Rate 1 : 74 bpm Height: 5'10" SpO2: 98% Weight: 268 lbs 8 oz 11/04/2015 Blood Pressure 1: 136/60 Code : 8480-6 BMI: 38.0 Code : 46672-5 Heart Rate 1 : 55 bpm Height: 5'10" SpO2: 94% Weight: 265 lbs 07/30/2015 Blood Pressure 1: 128/74 Code : 8480-6 BMI: 38.0 Code : 75409-0 Heart Rate 1 : 47 bpm Height: 5'10" SpO2: 97% Weight: 265 lbs 01/26/2015 Blood Pressure 1: 122/64 Code : 8480-6 BMI: 34.0 Code : 45981-5 Heart Rate 1 : 68 bpm Height: [...] Directive data Encounters Encounter Performer Location Codes ([id number]) [id number] EST. PATIENT, LEVEL IV Diagnosis: Type 2 diabetes mellitus with hyperglycemia[ICD10: E11.65] Diagnosis: Essential (primary) hypertension[ICD10: I10] Diagnosis: Malignant neoplasm of prostate[ICD10: C61] [facility] CPT-4: 33594 08/29/2018 ([id number]) [id number] EST. PATIENT, LEVEL IV Diagnosis: Malignant neoplasm of prostate[ICD10: C61] Dorene Sanchez MD, [facility] CPT-4: 50636 02/25/2018 23900 EST. PATIENT, LEVEL IV Diagnosis: Generalized abdominal pain[ICD10: R10.84] Diagnosis: Unspecified jaundice[ICD10: R17] Diagnosis: Gross hematuria[ICD10: R31.0] Kiki Sanchez MD, [facility] CPT-4 : 28236 02/20/2018 ([id number]) [id number] EST. PATIENT, LEVEL IV Diagnosis: Type 2 diabetes mellitus with hyperglycemia[ICD10: E11.65] Diagnosis: Essential (primary) hypertension[ICD10: I10] Diagnosis: Chronic kidney disease, stage 3 (moderate)[ICD10: N18.3] Diagnosis: Chronic pain syndrome[ICD10: G89.4] Diagnosis: Other specified hypothyroidism[ICD10: E03.8] Diagnosis: Encounter for screening for malignant neoplasm of prostate[ICD10: Z12.5] Diagnosis: Encounter for immunization[ICD10: Z23] Sarah Sanchez MD, [facility] CPT-4: 92407 02/05/2018 ([id number]) 08614 EST. PATIENT, LEVEL IV Diagnosis: Type 2 diabetes mellitus with hyperglycemia[ICD10: E11.65] Diagnosis: Essential (primary) hypertension[ICD10: I10] Dorene Sanchez MD, [facility] CPT-4: 18862 11/08/2017 ([id number]) 04164 EST. PATIENT, LEVEL IV Diagnosis: Type 2 diabetes mellitus with hyperglycemia[ICD10: E11.65] Diagnosis: Chronic pain syndrome[ICD10: G89.4] Diagnosis: Essential (primary) hypertension[ICD10: I10] Diagnosis: Chronic kidney disease, stage 3 (moderate)[ICD10: N18.3] Diagnosis: Localized edema[ICD10: R60.0] Dorene Sanchez MD, [facility] CPT- 4: 93755 09/20/2017 [id number]) [id number] EST. PATIENT, LEVEL III Diagnosis: Type 2 diabetes mellitus with hyperglycemia[ICD10: E11.65] Sarah Sanchez MD, [facility] CPT-4: 42262 06/25/2017 ([id number]) 81535 EST. PATIENT, LEVEL III Diagnosis: Cellulitis of left lower limb[ICD10: L03.116] Sarah Sanchez MD, [facility] CPT-4: 01704 06/07/2017 ([id number]) 18728 EST. PATIENT, LEVEL III Diagnosis: Localized edema[ICD10: R60.0] Diagnosis: Type 2 diabetes mellitus with foot ulcer[ICD10: E11.621] Sarah Sanchez MD , [facility] CPT-4: 44189 05/03/2017 ([id number]) 33181 EST. PATIENT, LEVEL III Diagnosis: Cellulitis of left lower limb[ICD10: L03.116] Diagnosis: Localized edema[ICD10: R60.0] Sarah Sanchez MD, [facility] CPT-4: 97166 04/02/2017 ([id number]) Miscellaneous no charge Diagnosis: Localized edema[ICD10: R60.0] Diagnosis: Cellulitis of left lower limb[ICD10: L03.116] Sarah Sanchez MD, [facility] CPT-4: 15507 03/26/2017 ([id number]) 51828 EST. 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 PATIENT, LEVEL IV Diagnosis: Type 2 diabetes mellitus with hyperglycemia[ICD10: E11.65] Diagnosis: Other specified hypothyroidism[ICD10: E03.8] Diagnosis: Essential (primary) hypertension[ICD10: I10] Sarah Sanchez MD, [facility] CPT-4: 41060 03/08/2017 ([id number]) 68434 EST. PATIENT, LEVEL III Diagnosis: Type 2 diabetes mellitus with hyperglycemia[ICD10: E11.65] Diagnosis: Other specified hypothyroidism[ICD10: E03.8] Sarah Sanchez MD, [facility] CPT-4: 46542 12/06/2016 ([id number]) 15652 EST. PATIENT, LEVEL IV Diagnosis: Essential (primary) hypertension[ICD10: I10] Diagnosis: Chronic kidney disease, stage 3 (moderate)[ICD10: N18.3] Dorene Sanchez MD, [facility] CPT-4: 61549 11/28/2016 ([id number]) 02052 EST. PATIENT, LEVEL IV Diagnosis: Essential (primary) hypertension[ICD10: I10] Diagnosis: Chronic pain syndrome[ICD10: G89.4] Diagnosis: Chronic kidney disease, stage 3 (moderate)[ICD10: N18.3] Diagnosis: Vitamin B12 deficiency anemia due to intrinsic factor deficiency[ ICD10: D51.0] Diagnosis: Other specified hypothyroidism[ICD10: E03.8] Dorene Sanchez MD, [facility] CPT-4: 84817 05/04/2016 88843 EST. PATIENT, LEVEL III Diagnosis: Chronic pain syndrome[ICD10: G89.4] Diagnosis: Essential (primary) hypertension[ICD10: I10] Diagnosis: Other specified hypothyroidism[ICD10: E03.8] Kiki Sanchez MD, [facility] CPT-4: 69179 11/04/2015 12775 EST. PATIENT, LEVEL III Diagnosis: Chronic pain syndrome[ICD10: G89.4] Diagnosis: Essential (primary) hypertension[ICD10: I10] Kiki Sanchez MD, [facility] CPT-4: 86843 07/30/2015 ([id number]) OFFICE/OUTPATIENT VISIT NEW Diagnosis: ESSENTIAL HYPERTENSION[ICD9: 401.9] Diagnosis: HYPOTHYROIDISM[ICD9: 244.9] Diagnosis: ANEMIA[ICD9: 285.9] Diagnosis: Vitamin B12 deficiency[ICD9: 266.2] Diagnosis: CHRONIC PAIN SYNDROME[ICD9: 338.4] Diagnosis: Chronic renal insufficiency, stage III (moderate)[ICD9: 585.3] Diagnosis: GOUT[ICD9: 274.9] Dorene Sanchez MD, [facility] CPT-4: 16738 01/26/2015 Plan of Care Planned Activity Notes [...] Dr Moreno 08/29/2018 Appointment: Sarah Hernandes WPtel: [phone] (15 min) Moderate 08/29/2018 Patient Education: Patient Medication Summary Completed 08/29/2018 Referral: Edgard Rivera MD WPtel: Via [address] with Dr. Moreno. Patient informed. Referral info faxed. Completed 02/27/2018 Visit Plan: Recurrent prostate cancer - I have recommended a referral to Dr. Rivera. We discussed the case at length today- he is not interested in extensive treatment, but if possible to extend his quantity and quality of life, he would like to try. 02/25/2018 Appointment: Dorene Sanchez WPtel: [facility] (15 min) Moderate 02/25/2018 Patient Education: Patient Medication Summary Completed 02/25/2018 Care Plan: Referral Order SNOMED-CT : [id number] Pending 02/25/2018 Visit Plan: Intermittent abdominal pain, jaundice, itching - will check labs and treat as indicated - pt is to go to the ER with any acute change in symptoms or any acute concerns. 02/20/2018 Appointment: Kiki Menjivar WPtel: [phone] (30 min) Complex 02/20/2018 Patient Education: Patient [...] control. 02/05/2018 [facility]ment[phone] (30 min) Complex 02/05/2018 Patient Education: Patient [...] surrogate. 11/30/2017 App[facility]ment: [phone] [phone] [facility] - Annual Wellness Visit 11/30/2017 [...] 1.2 11/08/2017 Appointment: [phone] [facility] (15 min) Moderate 11/08/2017 Patient Education: Patient [...] over-medication. 09/20/2017 Appointment: [facility] Sanchez [facility]el[phone] [facility] [place] (15 min) Moderate 09/20/2017 Patient Education: [...] control. 06/25/2017 Appointment: Sarah Hernandes WPtel: [phone] [phone] (30 min) Complex 06/25/2017 Patient Education: Patient Medication Summary Completed 06/25/2017 Appointment: Sarah Hernandes WPtel: [phone] [phone] (30 min) Complex 06/22/2017 Visit Plan: Cellulitis - start oral antibiotics as previously directed, return to clinic as previously directed, call for acute change in symptoms, worsening redness, warmth, discharge. 06/07/2017 Appointment: Sarah Hernandes WPtel: [phone] [phone] (30 min) Complex 06/07/2017 Patient Education: Patient Medication Summary Completed 06/07/2017 Patient Education: Obesity Completed 06/07/2017 Appointment: Dorene Sanchez WPtel: [phone] [facility] (15 min) Moderate 05/31/2017 Visit Plan: Edema-significantly improved-no changes Ulcer- left lower leg and foot-seeing Dr Norwood at wound care-appt scheduled with Dr Frausto for vascular evaluation 05/03/2017 Appointment: Sarah Hernandes WPtel: [phone] [phone] (15 min) Moderate 05/03/2017 Patient Education: Patient Medication Summary Completed 05/03/2017 Patient Education: Obesity Completed 05/03/2017 Visit Plan: Mogpzheeoj-slcbfibqb-xjbdxwb to finish abx-no further treatment indicated Edema-significantly improved-no longer weeping- continue unna boots twice weekly with home health 04/02/2017 Appointment: Sarah Hernandes WPtel: [phone] (30 min) Complex 04/02/2017 Patient Education: Patient Medication Summary Completed 04/02/2017 Patient Education: Obesity Completed 04/02/2017 Visit Plan: Cellulitis-left leg-continue levaquin Edema- increase lasix/potassium-consult [facility] for unna boots/dressing changes 03/26/2017 Appointment: Sarah Hernandes WPtel: [phone] (15 min) Moderate 03/26/2017 Patient Education: Patient [...] indomethacin-stop aleve 03/22/2017 Appointment: Sarah Hernandes WPtel: [address] [place], [place] [phone] (15 min) Moderate 03/22/2017 Patient Education: Patient [...] levels of control. 03/08/2017 Appointment: Sarah Hernandes WPte: [address] [place] [phone] (30 min) Complex 03/08/2017 Patient Education: Patient [...] care surrogate. 11/30/2016 Appointment: [facility]el[phone] [phone] [facility] - Annual Wellness Visit 11/30/2016 [...] fluids. 11/28/2016 Appointment: [facility] Sanchez [facility]Ptel[phone] [facility] (15 min) Moderate 11/28/2016 Patient Education: Patient [...] 01/26/2015 Referral: Edgard Rivera MD WPtel: [address] [place] Referral Appointment Requested Instructions Comment [...] have labs - may need b12 shots. PREVNAR 13 TODAY- GIVEN IN OFFICE PREVNAR 23 IN ONE YEAR SHINGLES VACCINATION TO BE ADMINISTERED AT [facility] RECOMMEND OBTAINING MEDICAL POWER OF NUT SHELLER AND LIVING WILL PATIENT DOES NOT HAVE [...] YEAR SHINGLES VACCINATION TO BE ADMINISTERED AT [facility] RECOMMEND OBTAINING MEDICAL POWER OF NUT SHELLER AND LIVING WILL PATIENT DOES NOT HAVE [...] 50-recommend patient stop the indomethacin-stop aleve . Hypertension - well controlled - continue [...] with Dr Frausto for vascular evaluation . Ipkvbmppik-omluqeolz-oxwksnq to finish abx-no further treatment indicated Edema-significantly [...] allow for greater blood glucose control. . Intermittent abdominal pain, jaundice, itching - will check labs and treat as indicated - pt is to go to the ER with any acute change in symptoms or any acute concerns. WOUND CARE APPT ANTIBIOTIC TO [facility] . Cellulitis - start oral antibiotics as previously directed, return to clinic as previously directed, call for acute change in symptoms, worsening redness, warmth, discharge. PREVNAR 13 TODAY- GIVEN IN OFFICE PREVNAR 23 IN ONE YEAR SHINGLES VACCINATION TO BE ADMINISTERED AT [facility] RECOMMEND OBTAINING MEDICAL POWER OF NUT SHELLER AND LIVING WILL PATIENT DOES NOT HAVE [...] AND POTASSIUM TO TWICE DAILY [facility] -WOUND CARE . [...] repeat labs in 3 months-sooner if needed RETURN LATER THIS WEEK FOR FASTING LABS [...]
--- OUTSIDE RECORDS SUMMARY | 2018-11-26 11:54 | XMS REPORT | CCD ---
Author Author Dorene Sanchez Organization [facility] Address [address] [place] [address] Phone Care Team Providers Care Seasonal Package Handler Name Role Phone PP Unavailable CCM Unavailable Summary Purpose Interface Exchange Insurance Providers Payer name Policy type / Coverage type Covered libertarian ID Effective Begin Date Effective End Date WPS Medicare Part B Medicare Part B [id number] Unknown Unknown Family history Father Diagnosis Age At Onset Stroke Unknown Mother Diagnosis Age At Onset Stroke Unknown Diabetes mellitus Type 2 Unknown Social History Social History Element Codes Description Effective Dates Tobacco history SNOMED CT: 844467715 Currently uses smokeless tobacco Chews 05/04/2016 Marital status Unknown 01/26/2015 Number of children Unknown 3 01/26/2015 Employment Unknown Retired 01/26/[address]: 607286959 Never drinks alcohol quit in July 2014 [...] Fill Instructions oxycodone 20 mg tablet RxNorm: 3360373 1/2 Tablet(s) PO Q6 as needed 08/15/2018 09/13/2018 Active oxycodone 20 mg tablet RxNorm: 2077575 1/2 Tablet(s) PO Q6 as needed 07/16/2018 08/14/2018 Inactive oxycodone 20 mg tablet RxNorm: 8276193 1/2 Tablet(s) PO Q6 as needed 06/14/2018 07/13/2018 Inactive gabapentin 100 mg capsule RxNorm: 387224 TAKE ONE CAPSULE BY MOUTH IN THE EVENING AT 5PM 05/30/2018 09/26/2018 Active oxycodone 20 mg tablet RxNorm: 6325273 1/2 Tablet(s) PO Q6 as needed 05/15/2018 06/13/2018 Inactive oxycodone 20 mg tablet RxNorm: 0941443 1/2 Tablet(s) PO Q6 as needed 04/12/2018 05/11/2018 Inactive oxycodone 20 mg tablet RxNorm: 8531161 1/2 Tablet(s) PO Q6 as needed 03/11/2018 04/09/2018 Inactive levothyroxine 200 mcg tablet RxNorm: 685684 1 Tablet(s) PO daily 02/21/2018 02/15/2019 Active Cipro 500 mg tablet RxNorm: 205667 1 Tablet(s) PO BID 201702/20/2018 Inactive levothyroxine 200 mcg tablet RxNorm: 537890 1 Tablet(s) PO daily 02/21/2018 02/20/2018 Inactive Cipro 500 mg tablet RxNorm: 338649 1 Tablet(s) PO BID 201703/02/2018 Inactive oxycodone 20 mg tablet RxNorm: 1372555 1/2 Tablet(s) PO Q6 as needed 02/12/2018 03/10/2018 Inactive oxycodone 20 mg tablet RxNorm: 4022209 1/2 Tablet(s) PO Q6 as needed 01/16/2018 02/11/2018 Inactive gabapentin 100 mg capsule RxNorm: 868732 TAKE ONE CAPSULE BY MOUTH IN THE EVENING AT 5PM 01/15/2018 05/29/2018 Inactive bisoprolol 5 mg-hydrochlorothiazide 6.25 mg tablet RxNorm: 526847 TAKE ONE TABLET BY MOUTH DAILY 01/01/2018 12/26/2018 Active oxycodone 20 mg tablet RxNorm: 9685775 1/2 Tablet(s) PO Q6 as needed 12/20/2017 01/14/2018 Inactive oxycodone 20 mg tablet RxNorm: 8720193 1/2 Tablet(s) PO Q6 as needed 11/20/2017 12/19/2017 Inactive Victoza 2-Dino 0.6 mg/0.1 mL (18 mg/3 mL) subcutaneous pen injector RxNorm: 198834 1.2 Milligram(s) SQ daily 11/08/201712/07 Inactive oxycodone 20 mg tablet RxNorm: 1857892 1/2 Tablet(s) PO Q6 as needed 10/19/2017 11/17/2017 Inactive Lasix 20 mg tablet RxNorm: 266619 1 Tablet(s) QAM at 5pm 12/201703/18/2018 Inactive gabapentin 100 mg capsule RxNorm: 240456 1 Capsule(s) PO QPM at 5 pm 09/20/2017 01/14/2018 Inactive oxycodone 20 mg tablet RxNorm: 1237231 1/2 Tablet(s) PO Q6 as needed 09/18/2017 10/17/2017 Inactive oxycodone 20 mg tablet RxNorm: 2436734 1/2 Tablet(s) PO Q6 as needed 08/14/2017 09/12/2017 Inactive ketoconazole 2 % topical cream RxNorm: 384237 1 Gram(s) TOP BID to affected area until healed 08/03/2017 No Stop Date Active oxycodone 20 mg tablet RxNorm: 2721424 1/2 Tablet(s) PO Q6 as needed 07/17/2017 08/13/2017 Inactive pen needle, diabetic 31 gauge x 5/16" RxNorm: 1 Unit Dose Miscellaneous daily 06/25/2017 03/21/2018 Inactive daily use with victoza Bactrim DS 800 mg-160 mg tablet RxNorm: 833235 1 Tablet(s) PO BID Dr Norwood 06/25/2017 07/04/2017 Inactive Victoza 2-Dino 0.6 mg/0.1 mL (18 mg/3 mL) subcutaneous pen injector RxNorm: 857371 0.6 Milligram(s) SQ daily 06/25/201707/24 Inactive doxycycline hyclate 100 mg tablet RxNorm: 911756 1 Tablet(s) PO BID Dr Norwood 06/21/2017 06/30/2017 Inactive oxycodone 20 mg tablet RxNorm: 1229568 1/2 Tablet(s) PO Q6 as needed 06/14/2017 07/13/2017 Inactive clindamycin 150 mg capsule RxNorm: 598602 1 Capsule(s) PO Q8 06/16/2017 Inactive levothyroxine 175 mcg tablet RxNorm: 906213 TAKE ONE TABLET BY MOUTH DAILY 06/04/2017 09/01/2017 Inactive levothyroxine 175 mcg tablet RxNorm: 992063 TAKE ONE TABLET BY MOUTH DAILY 06/04/2017 11/30/2017 Inactive bisoprolol 5 mg-hydrochlorothiazide 6.25 mg tablet RxNorm: 003931 TAKE ONE TABLET BY MOUTH DAILY 05/24/2017 11/19/2017 Inactive oxycodone 20 mg tablet RxNorm: 5667251 1/2 Tablet(s) PO Q6 as needed 05/14/2017 06/12/2017 Inactive potassium chloride ER 10 mEq capsule,extended release RxNorm: 979643 TAKE ONE CAPSULE BY MOUTH DAILY NEEDED FOR 5 DAYS THEN NEEDED WITH LASIX 04/17/2017 10/13/2017 Inactive Lasix 20 mg tablet RxNorm: 556424 TAKE ONE TABLET BY MOUTH DAILY NEEDED 04/17/2017 09/19/2017 Inactive oxycodone 20 mg tablet RxNorm: 8325828 1/2 Tablet(s) PO Q6 as needed 04/12/2017 05/11/2017 Inactive Colcrys 0.6 mg tablet RxNorm: 658657 2 tabs at onset then may repeat 1 tab in 1 hours if needed- Tablet(s) PO 04/09/2017 No Stop Date Active then take daily until gout resolved Bactrim DS 800 mg-160 mg tablet RxNorm: 693391 1 Tablet(s) PO BID 04/09/2017 04/08/2017 Inactive dc levaquin Bactrim DS 800 mg-160 mg tablet RxNorm: 691104 1 Tablet(s) PO BID 04/09/2017 04/15/2017 Inactive dc levaquin Levaquin 500 mg tablet RxNorm: 421475 1 Tablet(s) PO daily 04/02/2017 Inactive Levaquin 500 mg tablet RxNorm: 371860 1 Tablet(s) PO daily 06/06/2017 Inactive indomethacin 25 mg capsule RxNorm: 125143 1 Capsule(s) PO TID PRN 03/22/2017 03/22/2017 Inactive Lasix 20 mg tablet RxNorm: 837330 1 Tablet(s) PO QDAY PRN 02/201704/16/2017 Inactive daily x 5 days then as needed Levaquin 500 mg tablet RxNorm: 767432 1 Tablet(s) PO daily 02/201703/31/2017 Inactive potassium chloride ER 10 mEq capsule,extended release RxNorm: 291316 1 Capsule(s) PO QDAY PRN 03/22/2017 04/16/2017 Inactive daily x 5 days then as needed with lasix oxycodone 20 mg tablet RxNorm: 6290802 1/2 Tablet(s) PO Q6 as needed 03/08/2017 04/06/2017 Inactive bisoprolol 5 mg-hydrochlorothiazide 6.25 mg tablet RxNorm: 182640 TAKE ONE TABLET BY MOUTH DAILY 02/14/2017 05/14/2017 Inactive oxycodone 20 mg tablet RxNorm: 0683282 1/2 Tablet(s) PO Q6 as needed 02/08/2017 03/07/2017 Inactive oxycodone 20 mg tablet RxNorm: 7207419 1/2 Tablet(s) PO Q6 as needed 01/08/2017 02/06/2017 Inactive levothyroxine 175 mcg tablet RxNorm: 955419 1 Tablet(s) PO daily 12/06/2016 06/03/2017 Inactive [SAVINGS FOR NON-COVERED DRUGS -- BIN:[id number], PCN: ASPROD1, Group: XXXXX, ID# [id number], Questions: . THIS IS NOT INSURANCE.] oxycodone 20 mg tablet RxNorm: 8467570 1/2 Tablet(s) PO Q6 as needed 12/04/2016 01/02/2017 Inactive oxycodone 20 mg tablet RxNorm: 9778804 1/2 Tablet(s) PO Q6 as needed 11/09/2016 12/03/2016 Inactive bisoprolol 5 mg-hydrochlorothiazide 6.25 mg tablet RxNorm: 491505 TAKE ONE TABLET BY MOUTH DAILY 11/08/2016 02/05/2017 Inactive oxycodone 20 mg tablet RxNorm: 4365104 1/2 Tablet(s) PO Q6 as needed 10/05/2016 11/03/2016 Inactive oxycodone 20 mg tablet RxNorm: 7703764 1/2 Tablet(s) PO Q6 as needed 09/06/2016 10/04/2016 Inactive oxycodone 20 mg tablet RxNorm: 8006648 1/2 Tablet(s) PO Q6 as needed 08/07/2016 09/05/2016 Inactive oxycodone 20 mg tablet RxNorm: 9267229 1/2 Tablet(s) PO Q6 as needed 07/04/2016 08/06/2016 Inactive oxycodone 20 mg tablet RxNorm: 7704203 1/2 Tablet(s) PO Q6 as needed 05/29/2016 07/03/2016 Inactive levothyroxine 150 mcg tablet RxNorm: 666483 1 Tablet(s) PO daily 04/10/2016 04/09/2016 Inactive [SAVINGS FOR NON-COVERED DRUGS -- BIN:[id number], PCN: ASPROD1, Group: XXXXX, ID# XXXXXXX, Questions: . THIS IS NOT INSURANCE.] oxycodone 20 mg tablet RxNorm: 3382805 1/2 Tablet(s) PO Q6 as needed 04/10/2016 05/28/2016 Inactive levothyroxine 150 mcg tablet RxNorm: 461952 1 Tablet(s) PO daily 04/10/2016 10/06/2016 Inactive [SAVINGS FOR NON-COVERED DRUGS -- BIN:[id number], PCN: ASPROD1, Group: XXXXX, ID# XXXXXXX, Questions: . THIS IS NOT INSURANCE.] bisoprolol 5 mg-hydrochlorothiazide 6.25 mg tablet RxNorm: 219170 1 Tablet(s) PO daily 02/16/2016 12/31/2017 Inactive oxycodone 20 mg tablet RxNorm: 6228433 1/2 Tablet(s) PO Q6 as needed 02/16/2016 04/09/2016 Inactive oxycodone 20 mg tablet RxNorm: 9017788 1/2 Tablet(s) PO Q6 as needed 01/04/2016 02/15/2016 Inactive bisoprolol 5 mg-hydrochlorothiazide 6.25 mg tablet RxNorm: 812540 1 Tablet(s) PO daily 11/19/2015 01/17/2016 Inactive bisoprolol 5 mg-hydrochlorothiazide 6.25 mg tablet RxNorm: 848211 1 Tablet(s) PO daily 11/04/2015 11/18/2015 Inactive oxycodone 20 mg tablet RxNorm: 8039966 1/2 Tablet(s) PO Q6 as needed 10/27/2015 01/03/2016 Inactive levothyroxine 150 mcg tablet RxNorm: 871131 1 Tablet(s) PO daily 08/26/2015 02/21/2016 Inactive [SAVINGS FOR NON-COVERED DRUGS -- BIN:[id number], PCN: ASPROD1, Group: XXXXX, ID# XXXXXXX, Questions: . THIS IS NOT INSURANCE.] bisoprolol 5 mg-hydrochlorothiazide 6.25 mg tablet RxNorm: 832248 1 Tablet(s) PO daily 08/26/2015 10/24/2015 Inactive oxycodone 10 mg tablet RxNorm: 8111933 1 Tablet(s) PO Q6 as needed 05/06/2015 10/26/2015 Inactive levothyroxine 150 mcg tablet RxNorm: 642412 1 Tablet(s) PO daily 02/05/2015 08/03/2015 Inactive [SAVINGS FOR NON-COVERED DRUGS -- BIN:[id number], PCN: ASPROD1, Group: XXXXX, ID# [id number], Questions: . THIS IS NOT INSURANCE.] Vitamin D2 50,000 unit capsule RxNorm: 816791 1 Capsule(s) PO weekly 02/05/2015 05/05/2015 Inactive [SAVINGS FOR NON-COVERED DRUGS -- BIN:298811, PCN: ASPROD1, Group: XXXXX, ID# XXXXXXX, Questions: . THIS IS NOT INSURANCE.] Vitamin D2 50,000 unit capsule RxNorm: 288358 1 Capsule(s) PO weekly 02/05/2015 02/04/2015 Inactive bisoprolol 5 mg-hydrochlorothiazide 6.25 mg tablet RxNorm: 399882 1 Tablet(s) PO daily 01/26/2015 02/24/2015 Inactive levothyroxine 200 mcg tablet RxNorm: 820869 1 Tablet(s) PO daily 01/26/2015 01/25/2015 Inactive levothyroxine 200 mcg tablet RxNorm: 711821 1 Tablet(s) PO every other day 01/26/2015 02/04/2015 Inactive [SAVINGS FOR NON-COVERED DRUGS -- BIN:280090, PCN: ASPROD1, Group: XXXXX, ID# XXXXXXX, Questions: . THIS IS NOT INSURANCE.] aspirin 81 mg chewable tablet RxNorm: 158068 1 Tablet(s) PO daily No Start Date Active Plavix 75 mg tablet RxNorm: 714067 1 Tablet(s) PO daily manage by Dr Baig No Start Date Active simvastatin 40 mg tablet RxNorm: 678823 1 Tablet(s) PO QHS managed by Dr Baig No Start Date Active Colcrys 0.6 mg tablet RxNorm: 927628 2 tabs at onset then may repeat 1 tab in 1 hours if needed- Tablet(s) PO No Start Date 04/08/2017 Inactive then take daily until gout resolved aspirin 325 mg tablet RxNorm: 071563 1 Tablet(s) PO daily No Start Date 05/03/2016 Inactive levothyroxine 75 mcg tablet RxNorm: 063142 1 Tablet(s) PO every other day No Start Date 02/04/2015 Inactive takes qod with 200mcg oxycodone 10 mg tablet RxNorm: 5396521 1 Tablet(s) PO Q6 as needed No Start Date 05/05/2015 Inactive ketoconazole 2 % topical cream RxNorm: 477228 1 Gram(s) TOP BID to affected area [...] Observation Code Item Item Code Result Date Culture Urine [id number] URINE CULTURE SEE NOTES 02/22/2018 Urine Culture [...] 24.5 pg 02/20/2018 Cbc With Differential Ord2 [place]% 8.9 % 02/20/2018 Cbc With Differential Ord2 [...] 0.81 K/ul 02/20/2018 Cbc With Differential Ord2 [place] ABS# 0.7 K/ul 02/20/2018 Cbc With Differential Ord2 Eos ABS# 0.4 K/ul 02/20/2018 Cbc With Differential Ord2 Baso ABS# 0.0 K/ul 02/20/2018 %Hba1C Dbi659 % HbA1c 28204-6 7.7 % 02/20/2018 %Hba1C Dwo869 Gluc Ave 174 mg/dL 02/20/2018 Lipase Mey642 LIPASE 17 U/L 02/20/2018 Microalbumin Wwz354 MicroAlb 6.5 mg/dL 02/20/2018 Amylase Ord34 AMYLASE 15 U/L 02/20/2018 Free T4 Hce356 FREE T4 0.61 ng/dL 02/20/2018 Lipid Ord30 CHOL 203 mg/dL 02/20/2018 Lipid Ord30 HDL 7.0 mg/dl 02/20/2018 Lipid Ord30 TRIG 271 mg/dL 02/20/2018 Lipid Ord30 LDL 142 mg/dL 02/20/2018 Lipid Ord30 C/HDL 29.0 Ratio 02/20/2018 Comp Metabolic Sbv574 NA 134 mEq/L 02/20/2018 Comp Metabolic Fxa051 K 3.6 mEq/L 02/20/2018 Comp Metabolic Tiv415 CL 96 mEq/L 02/20/2018 Comp Metabolic Fzo074 CO2 29.0 mEq/L 02/20/2018 Comp Metabolic Guw897 ANION GAP 13 02/20/2018 Comp Metabolic Kpp405 GLUCOSE 165 mg/dL 02/20/2018 Comp Metabolic Cvg745 Creat 1.2 mg/dL 02/20/2018 Comp Metabolic Wpc469 eGFR 63 ml/min/1.73m2 02/20/2018 Comp Metabolic Xzj526 BUN 14 mg/dL 02/20/2018 Comp Metabolic Abd767 B/C Ratio 11.6 Ratio 02/20/2018 Comp Metabolic Eux335 CALCIUM 8.5 mg/dL 02/20/2018 Comp Metabolic Rhk342 ALK PHOS 633 U/L 02/20/2018 Comp Metabolic Cbo983 AST(SGOT) 112 U/L 02/20/2018 Comp Metabolic Yyj792 ALT(SGPT) 148 U/L 02/20/2018 Comp Metabolic Btt371 BILI T 6.8 mg/dL 02/20/2018 Comp Metabolic Kcr053 ALBUMIN 3.3 g/dL 02/20/2018 Comp Metabolic Nwa526 TPRO 5.9 g/dL 02/20/2018 Comp Metabolic Oct773 GLOB 2.6 g/dL 02/20/2018 Comp Metabolic Yhe598 A/G Ratio 1.3 Ratio 02/20/2018 Comp Metabolic Cmq174 Osmo 272 mOsmo 02/20/2018 Total Psa Ord10 [...] Metabolic Ord15 CALCIUM 9.2 mg/dL 11/09/2017 %Hba1C Qdu456 % HbA1c 88072-3 8.0 % 11/09/2017 %Hba1C Fum881 Gluc Ave 183 mg/dL 11/09/2017 Metabolic Ord15 [...] Ord15 CALCIUM 8.7 mg/dL 06/25/2017 Culture Wound [id number] WOUND CULTURE SEE NOTES 04/09/2017 Culture Wound [id number] Continued Results 04/09/2017 Amylase Ord34 AMYLASE 19 [...] 27.9 pg 03/22/2017 Cbc With Differential Ord2 [place]% 8.3 % 03/22/2017 Cbc With Differential Ord2 [...] 1.35 K/ul 03/22/2017 Cbc With Differential Ord2 [place] ABS# 1.4 K/ul 03/22/2017 Cbc With Differential Ord2 Eos ABS# 0.2 K/ul 03/22/2017 Cbc With Differential Ord2 Baso ABS# 0.0 K/ul 03/22/2017 Comp Metabolic Aye009 NA 134 mEq/L 03/22/2017 Comp Metabolic Aoy362 K 4.5 mEq/L 03/22/2017 Comp Metabolic Qgy358 CL 93 mEq/L 03/22/2017 Comp Metabolic Pxs608 CO2 31.0 mEq/L 03/22/2017 Comp Metabolic Mvp059 ANION GAP 15 03/22/2017 Comp Metabolic Hip981 GLUCOSE 198 mg/dL 03/22/2017 Comp Metabolic Wyk877 Creat 1.5 mg/dL 03/22/2017 Comp Metabolic Epn053 eGFR 50 ml/min/1.73m2 03/22/2017 Comp Metabolic Avv474 BUN 32 mg/dL 03/22/2017 Comp Metabolic Viq858 B/C Ratio 21.6 Ratio 03/22/2017 Comp Metabolic Nhp335 CALCIUM 8.4 mg/dL 03/22/2017 Comp Metabolic Dxj973 ALK PHOS 245 U/L 03/22/2017 Comp Metabolic Dtx616 AST(SGOT) 18 U/L 03/22/2017 Comp Metabolic Hjv534 ALT(SGPT) 17 U/L 03/22/2017 Comp Metabolic Hqc597 BILI T 0.8 mg/dL 03/22/2017 Comp Metabolic Udd960 ALBUMIN 2.9 g/dL 03/22/2017 Comp Metabolic Hxt912 TPRO 6.3 g/dL 03/22/2017 Comp Metabolic Ihf862 GLOB 3.4 g/dL 03/22/2017 Comp Metabolic Kiw325 A/G Ratio 0.8 Ratio 03/22/2017 Comp Metabolic Rpt545 Osmo 281 mOsmo 03/22/2017 Lipase Xcf492 LIPASE 12 U/L 03/22/2017 Comp Metabolic Crp476 NA 142 mEq/L 03/09/2017 Comp Metabolic Xjw663 K 4.8 mEq/L 03/09/2017 Comp Metabolic Jua990 CL 103 mEq/L 03/09/2017 Comp Metabolic Vkr773 CO2 30.0 mEq/L 03/09/2017 Comp Metabolic Pez910 ANION GAP 14 03/09/2017 Comp Metabolic Crb095 GLUCOSE 152 mg/dL 03/09/2017 Comp Metabolic Lzk902 Creat 1.3 mg/dL 03/09/2017 Comp Metabolic Cka353 eGFR 56 ml/min/1.73m2 03/09/2017 Comp Metabolic Xrm624 BUN 23 mg/dL 03/09/2017 Comp Metabolic Luo247 B/C Ratio 17.3 Ratio 03/09/2017 Comp Metabolic Eip151 CALCIUM 8.5 mg/dL 03/09/2017 Comp Metabolic Wyi523 ALK PHOS 97 U/L 03/09/2017 Comp Metabolic Lzv219 AST(SGOT) 10 U/L 03/09/2017 Comp Metabolic Crk910 ALT(SGPT) 6 U/L 03/09/2017 Comp Metabolic Zmt306 BILI T 0.4 mg/dL 03/09/2017 Comp Metabolic Pkr526 ALBUMIN 3.4 g/dL 03/09/2017 Comp Metabolic Vfp509 TPRO 6.2 g/dL 03/09/2017 Comp Metabolic Lac249 GLOB 2.8 g/dL 03/09/2017 Comp Metabolic Bqp940 A/G Ratio 1.2 Ratio 03/09/2017 Comp Metabolic Oob038 Osmo 290 mOsmo 03/09/2017 Free T4 Sfl461 FREE T4 0.86 ng/dL 03/08/2017 Cbc With [...] 28.2 pg 03/08/2017 Cbc With Differential Ord2 [place]% 8.7 % 03/08/2017 Cbc With Differential Ord2 [...] 1.63 K/ul 03/08/2017 Cbc With Differential Ord2 [place] ABS# 0.9 K/ul 03/08/2017 Cbc With Differential Ord2 Eos ABS# 0.5 K/ul 03/08/2017 Cbc With Differential Ord2 Baso ABS# 0.0 K/ul 03/08/2017 Tsh Ord6 hTSH II 4.52 uIU/mL 03/08/2017 %Hba1C Zij626 % HbA1c 45529-0 8.5 % 03/08/2017 %Hba1C Itv732 Gluc Ave 197 mg/dL 03/08/2017 %Hba1C Cdq974 % HbA1c 85578-0 9.8 % 12/04/2016 %Hba1C Tiu325 Gluc Ave 235 mg/dL 12/04/2016 Tsh Ord6 hTSH II 10.65 uIU/mL 11/30/2016 Comp Metabolic Fmr798 NA 134 mEq/L 11/30/2016 Comp Metabolic Xbr617 K 5.0 mEq/L 11/30/2016 Comp Metabolic Lcl698 CL 95 mEq/L 11/30/2016 Comp Metabolic Dhf627 CO2 34.0 mEq/L 11/30/2016 Comp Metabolic Tss614 ANION GAP 10 11/30/2016 Comp Metabolic Uld156 GLUCOSE 226 mg/dL 11/30/2016 Comp Metabolic Pmj526 Creat 1.3 mg/dL 11/30/2016 Comp Metabolic Agq953 eGFR 56 ml/min/1.73m2 11/30/2016 Comp Metabolic Cux347 BUN 21 mg/dL 11/30/2016 Comp Metabolic Poo838 B/C Ratio 15.7 Ratio 11/30/2016 Comp Metabolic Ayy263 CALCIUM 8.9 mg/dL 11/30/2016 Comp Metabolic Edj682 ALK PHOS 112 U/L 11/30/2016 Comp Metabolic Dna561 AST(SGOT) 9 U/L 11/30/2016 Comp Metabolic Fyr008 ALT(SGPT) 7 U/L 11/30/2016 Comp Metabolic Act517 BILI T 0.6 mg/dL 11/30/2016 Comp Metabolic Zgz028 ALBUMIN 3.6 g/dL 11/30/2016 Comp Metabolic Mha045 TPRO 6.4 g/dL 11/30/2016 Comp Metabolic Zhy472 GLOB 2.9 g/dL 11/30/2016 Comp Metabolic Sxh818 A/G Ratio 1.2 Ratio 11/30/2016 Comp Metabolic Adf855 Osmo 278 mOsmo 11/30/2016 Lipid Ord30 CHOL [...] 13.0 % 11/30/2016 Cbc With Differential Ord2 [place]% 7.9 % 11/30/2016 Cbc With Differential Ord2 [...] 1.34 K/ul 11/30/2016 Cbc With Differential Ord2 [place] ABS# 0.8 K/ul 11/30/2016 Cbc With Differential Ord2 Eos ABS# 0.3 K/ul 11/30/2016 Cbc With Differential Ord2 Baso ABS# 0.0 K/ul 11/30/2016 Free T4 Tey616 FREE T4 0.89 ng/dL 11/30/2016 Review of [...] sounds 09/20/2017 None Full Exam - General 1995 Cardiovascular auscultation of heart Systolic murmur: early systolic 09/20/2017 None Full Exam - General 1994 Cardiovascular auscultation of heart Systolic murmur grade: II/ 09/20/2017 None Full Exam - General 1994 Abdomen abdominal exam Overall: normal bowel sounds 09/20/2017 None Full Exam - General 1995 Lymphatic [...] Codes Date ADMIN PNEUMOCOCCAL VACCINE SNOMED CT: 21258286 CPT-4: G0009 02/05/2018 Pneumococcal Polysaccharide Vaccine, 23-Valent, Ad CPT-4: 72428 02/05/2018 PPPS, SUBSEQ VISIT CPT -4: G0439 11/30/2017 URINALYSIS NONAUTO W/O SCOPE CPT-4: 83580 03/22/2017 URINALYSIS NONAUTO W/O SCOPE CPT-4: 43761 03/21/2017 PPPS, SUBSEQ VISIT CPT -4: G0439 11/30/2016 PNEUMOCOCCAL VACC 13 JAVIER IM Formatting Model/CDA Sections, Assigned to SNOMED CT: 96767045 CPT-4: 97094Arxrrqk 11/30/2016 ADMIN PNEUMOCOCCAL VACCINE SNOMED CT: 08063914 CPT-4: G0009 11/30/2016 Vital Signs Date Vital 08/29/2018 Blood Pressure 1: 104/60 Code : 8480-6 BMI: 34.6 Code : 55427-5 Heart Rate 1 : 68 bpm Height: 5'10" SpO2: 98% Weight: 241 lbs 02/25/2018 Blood Pressure 1: 120/70 Code : 8480-6 BMI: 37.0 Code : 67561-2 Heart Rate 1 : 51 bpm Height: 5'10" SpO2: 97% Weight: 258 lbs 02/20/2018 Blood Pressure 1: 124/70 Code : 8480-6 BMI: 38.0 Code : 70628-3 Heart Rate 1 : 60 bpm Height: 5'10" SpO2: 96% Weight: 265 lbs 02/05/2018 Blood Pressure 1: 116/66 Code : 8480-6 BMI: 38.0 Code : 44964-1 Heart Rate 1 : 63 bpm Height: 5'10" SpO2: 98% Weight: 265 lbs 11/30/2017 Blood Pressure 1: 132/60 Code : 8480-6 BMI: 37.0 Code : 44204-0 Heart Rate 1 : 100 bpm Height: 5'10 " SpO2: 96% Waist Measure (cm): 122 cm Weight: 258 lbs 11/08/2017 Blood Pressure 1: 126/64 Code : 8480-6 BMI: 37.2 Code : 73069-7 Heart Rate 1 : 92 bpm Height: 5'10" SpO2: 94% Weight: 259 lbs 09/20/2017 Blood Pressure 1: 122 Code : 8480-6 BMI: 36.9 Code : 49146-0 Heart Rate 1 : 57 bpm Height: 5'10" SpO2: 96% Weight: 257 lbs 06/25/2017 Blood Pressure 1: 124 Code : 8480-6 BMI: 37.0 Code : 21893-9 Height: 5'10 " Weight: 258 lbs 06/07/2017 Blood Pressure 1: 122 Code : 8480-6 BMI: 37.0 Code : 72679-2 Heart Rate 1 : 60 bpm Height: 5'10" SpO2: 94% Temperature: 36.4 (C) / 97.6 (F) Weight: 258 lbs 05/03/2017 Blood Pressure 1: 118/ Code : 8480-6 BMI: 38.2 Code : 10365-5 Heart Rate 1 : 52 bpm Height: 5'10" SpO2: 98% Weight: 266 lbs 04/02/2017 Blood Pressure 1: 11862 Code : 8480-6 BMI: 38.2 Code : 81831-4 Heart Rate 1 : 53 bpm Height: 5'10" SpO2: 93% Weight: 266 lbs 03/26/2017 Blood Pressure 1: 114 Code : 8480-6 BMI: 38.3 Code : 38058-0 Height: 5'10 " Weight: 267 lbs 03/22/2017 Blood Pressure 1: 12264 Code : 8480-6 BMI: 40.0 Code : 53883-4 Heart Rate 1 : 52 bpm Height: 5'10" SpO2: 94% Weight: 279 lbs 03/08/2017 Blood Pressure 1: 124/ Code : 8480-6 BMI: 39.4 Code : 18406-7 Heart Rate 1 : 51 bpm Height: 5'10" SpO2: 94% Weight: 274 lbs 8 oz 12/06/2016 Blood Pressure 1: 126/62 Code : 8480-6 BMI: 40.3 Code : 67242-6 Heart Rate 1 : 50 bpm Height: 5'10" SpO2: 94% Weight: 281 lbs 11/30/2016 Blood Pressure 1: 112/62 Code : 8480-6 BMI: 40.3 Code : 26305-3 Heart Rate 1 : 52 bpm Height: 5'10" SpO2: 93% Waist Measure (cm): 135 cm Weight: 281 lbs 11/28/2016 Blood Pressure 1: 132/72 Code : 8480-6 BMI: 40.3 Code : 31432-7 Heart Rate 1 : 50 bpm Height: 5'10" Weight: 281 lbs 05/04/2016 Blood Pressure 1: 128/78 Code : 8480-6 BMI: 38.5 Code : 22642-7 Heart Rate 1 : 74 bpm Height: 5'10" SpO2: 98% Weight: 268 lbs 8 oz 11/04/2015 Blood Pressure 1: 136/60 Code : 8480-6 BMI: 38.0 Code : 90351-1 Heart Rate 1 : 55 bpm Height: 5'10" SpO2: 94% Weight: 265 lbs 07/30/2015 Blood Pressure 1: 128/74 Code : 8480-6 BMI: 38.0 Code : 32505-2 Heart Rate 1 : 47 bpm Height: 5'10" SpO2: 97% Weight: 265 lbs 01/26/2015 Blood Pressure 1: 122/64 Code : 8480-6 BMI: 34.0 Code : 60908-2 Heart Rate 1 : 68 bpm Height: [...] data Encounters Encounter Performer Location Codes Date ([id number]) [id number] EST. PATIENT, LEVEL IV Diagnosis: Type 2 diabetes mellitus with hyperglycemia[ICD10: E11.65] Diagnosis: Essential (primary) hypertension[ICD10: I10] Diagnosis: Malignant neoplasm of prostate[ICD10: C61] Sarah Sanchez MD, [facility] CPT-4: 94919 08/29/2018 ([id number]) [id number] EST. PATIENT, LEVEL IV Diagnosis: Malignant neoplasm of prostate[ICD10: C61] Dorene Sanchez MD, [facility] CPT-4: 71537 02/25/2018 [id number] EST. PATIENT, LEVEL IV Diagnosis: Generalized abdominal pain[ICD10: R10.84] Diagnosis: Unspecified jaundice[ICD10: R17] Diagnosis: Gross hematuria[ICD10: R31.0] Kiki Sanchez MD, [facility] CPT-4 : 00173 02/20/2018 ([id number]) [id number] EST. PATIENT, LEVEL IV Diagnosis: Type 2 diabetes mellitus with hyperglycemia[ICD10: E11.65] Diagnosis: Essential (primary) hypertension[ICD10: I10] Diagnosis: Chronic kidney disease, stage 3 (moderate)[ICD10: N18.3] Diagnosis: Chronic pain syndrome[ICD10: G89.4] Diagnosis: Other specified hypothyroidism[ICD10: E03.8] Diagnosis: Encounter for screening for malignant neoplasm of prostate[ICD10: Z12.5] Diagnosis: Encounter for immunization[ICD10: Z23] Sarah Sanchez MD, [facility] CPT-4: 26810 02/05/2018 ([id number]) [id number] EST. PATIENT, LEVEL IV Diagnosis: Type 2 diabetes mellitus with hyperglycemia[ICD10: E11.65] Diagnosis: Essential (primary) hypertension[ICD10: I10] Dorene Sanchez MD, [facility] CPT-4: 95562 11/08/2017 ([id number]) 76610 EST. PATIENT, LEVEL IV Diagnosis: Type 2 diabetes mellitus with hyperglycemia[ICD10: E11.65] Diagnosis: Chronic pain syndrome[ICD10: G89.4] Diagnosis: Essential (primary) hypertension[ICD10: I10] Diagnosis: Chronic kidney disease, stage 3 (moderate)[ICD10: N18.3] Diagnosis: Localized edema[ICD10: R60.0] Dorene Sanchez MD, [facility] CPT- 4: 31230 09/20/2017 ([id number]) 28070 EST. PATIENT, LEVEL III Diagnosis: Type 2 diabetes mellitus with hyperglycemia[ICD10: E11.65] Sarah Sanchez MD, [facility] CPT-4: 24940 06/25/2017 ([id number]) [id number] EST. PATIENT, LEVEL III Diagnosis: Cellulitis of left lower limb[ICD10: L03.116] Sarah Sanchez MD, [facility] CPT-4: 58657 06/07/2017 ([id number]) 69749 EST. PATIENT, LEVEL III Diagnosis: Localized edema[ICD10: R60.0] Diagnosis: Type 2 diabetes mellitus with foot ulcer[ICD10: E11.621] Sarah Sanchez MD , [facility] CPT-4: 52098 05/03/2017 ([id number]) 51252 EST. PATIENT, LEVEL III Diagnosis: Cellulitis of left lower limb[ICD10: L03.116] Diagnosis: Localized edema[ICD10: R60.0] Sarah Sanchez MD, [facility] CPT-4: 43176 04/02/2017 ([id number]) Miscellaneous no charge Diagnosis: Localized edema[ICD10: R60.0] Diagnosis: Cellulitis of left lower limb[ICD10: L03.116] Sarah Sanchez MD, [facility] CPT-4: 38652 03/26/2017 ([id number]) 17721 EST. PATIENT, LEVEL IV Diagnosis: Cellulitis of left lower limb[ICD10: L03.116] Diagnosis: Chronic gout due to renal impairment, left ankle and foot, without tophus (tophi)[ICD10: M1A.3720] Diagnosis: Localized edema[ICD10: R60.0] Diagnosis: Type 2 diabetes mellitus with hyperglycemia[ICD10: E11.65] Diagnosis: Dysuria[ICD10: R30.0] Dorene Sanchez MD, [facility] CPT-4: 69139 03/22/2017 ([id number]) 47741 EST. PATIENT, LEVEL IV Diagnosis: Type 2 diabetes mellitus with hyperglycemia[ICD10: E11.65] Diagnosis: Other specified hypothyroidism[ICD10: E03.8] Diagnosis: Essential (primary) hypertension[ICD10: I10] Sarah Sanchez MD, [facility] CPT-4: 82864 03/08/2017 [id number]) 83513 EST. PATIENT, LEVEL III Diagnosis: Type 2 diabetes mellitus with hyperglycemia[ICD10: E11.65] Diagnosis: Other specified hypothyroidism[ICD10: E03.8] Sarah Sanchez MD, [facility] CPT-4: 79633 12/06/2016 [id number]) 64829 EST. PATIENT, LEVEL IV Diagnosis: Essential (primary) hypertension[ICD10: I10] Diagnosis: Chronic kidney disease, stage 3 (moderate)[ICD10: N18.3] Dorene Sanchez MD, [facility] CPT-4: 26288 11/28/2016 ([id number]) 73610 EST. PATIENT, LEVEL IV Diagnosis: Essential (primary) hypertension[ICD10: I10] Diagnosis: Chronic pain syndrome[ICD10: G89.4] Diagnosis: Chronic kidney disease, stage 3 (moderate)[ICD10: N18.3] Diagnosis: Vitamin B12 deficiency anemia due to intrinsic factor deficiency[ ICD10: D51.0] Diagnosis: Other specified hypothyroidism[ICD10: E03.8] Dorene Sanchez MD, [facility] CPT-4: 96561 05/04/2016 93019 EST. PATIENT, LEVEL III Diagnosis: Chronic pain syndrome[ICD10: G89.4] Diagnosis: Essential (primary) hypertension[ICD10: I10] Diagnosis: Other specified hypothyroidism[ICD10: E03.8] Kiki Sanchez MD, [facility] CPT-4: 94000 11/04/2015 39191 EST. PATIENT, LEVEL III Diagnosis: Chronic pain syndrome[ICD10: G89.4] Diagnosis: Essential (primary) hypertension[ICD10: I10] Kiki Sanchez MD, [facility] CPT-4: 23723 07/30/2015 ([id number]) OFFICE/OUTPATIENT VISIT NEW Diagnosis: ESSENTIAL HYPERTENSION[ICD9: 401.9] Diagnosis: HYPOTHYROIDISM[ICD9: 244.9] Diagnosis: ANEMIA[ICD9: 285.9] Diagnosis: Vitamin B12 deficiency[ICD9: 266.2] Diagnosis: CHRONIC PAIN SYNDROME[ICD9: 338.4] Diagnosis: Chronic renal insufficiency, stage III (moderate)[ICD9: 585.3] Diagnosis: GOUT[ICD9: 274.9] [facility] CPT-4: 54521 01/26/2015 Plan of Care Planned Activity Notes [...] further treatment options with Dr Moreno 08/29/2018 Patient Education: Patient Medication Summary Completed 08/29/2018 Care Plan: %Hba1C LOINC : 53288-6 Pending 08/29/2018 Referral: Edgard Rivera MD WPtel: Via [address] with Dr. Moreno. Patient informed. Referral info faxed. Completed 02/27/2018 Visit Plan: Recurrent prostate cancer - I have recommended a referral to Dr. Rivera. We discussed the case at length today- he is not interested in extensive treatment, but if possible to extend his quantity and quality of life, he would like to try. 02/25/2018 Appointment: Dorene Sanchez WPtel[facility] (15 min) Moderate 02/25/2018 Patient Education: Patient Medication Summary Completed 02/25/2018 Care Plan: Referral Order SNOMED-CT : [id number] Pending 02/25/2018 Visit Plan: Intermittent abdominal pain, jaundice, itching - will check labs and treat as indicated - pt is to go to the ER with any acute change in symptoms or any acute concerns. 02/20/2018 Appointment: Kiki Menjivar WPtel: [facility] (30 min) Complex 02/20/2018 Patient Education: [...] Appointment: Sarah Hernandes WPtel: [phone] [phone] (30 min) Complex 02/05/2018 Patient Education: Patient [...] surrogate. 11/30/2017 Appointment: Sarah Hernandes [facility]Ptel[facility] [phone] [phone] [facility] - Annual Wellness Visit 11/30/2017 Patient [...] 1.2 11/08/2017 Appointment: Dorene Sanchez [facility]Ptel[facility] [phone] [facility] (15 min) Moderate 11/08/2017 Patient Education: Patient [...] of over-medication. 09/20/2017 Appointment: Dorene Sanchez [facility]Ptel[facility] [phone] [facility] [place] (15 min) Moderate 09/20/2017 Patient Education: [...] glucose control. 06/25/2017 Appointment: Sarah Hernandes WPtel: [id number] [place] [address] (30 min) Complex 06/25/2017 Patient Education: Patient Medication Summary Completed 06/25/2017 Appointment: Sarah Hernandes WPtel: [address] [place], [place] [phone] [place] [address] (30 min) Complex 06/22/2017 Visit Plan: Cellulitis - start oral antibiotics as previously directed, return to clinic as previously directed, call for acute change in symptoms, worsening redness, warmth, discharge. 06/07/2017 Appointment: Sarah Hernandes WPtel: [phone] (30 min) Complex 06/07/2017 Patient Education: Patient Medication Summary Completed 06/07/2017 Patient Education: Obesity Completed 06/07/2017 Appointment: Dorene Sanchez WPtel: [facility] [place] (15 min) Moderate 05/31/2017 Visit Plan: Edema-significantly improved-no changes Ulcer- left lower leg and foot-seeing Dr Norwood at wound care-appt scheduled with Dr Frausto for vascular evaluation 05/03/2017 Appointment: Sarah Hernandes WPtel: [phone] [phone] (15 min) Moderate 05/03/2017 Patient Education: Patient Medication Summary Completed 05/03/2017 Patient Education: Obesity Completed 05/03/2017 Visit Plan: Pdvzlqgmcr-adnytexwy-tbmncrr to finish abx-no further treatment indicated Edema-significantly improved-no longer weeping- continue unna boots twice weekly with home health 04/02/2017 Appointment: Sarah Hernandes WPtel: [phone] [phone] (30 min) Complex 04/02/2017 Patient Education: Patient Medication Summary Completed 04/02/2017 Patient Education: Obesity Completed 04/02/2017 Visit Plan: Cellulitis-left leg-continue levaquin Edema- increase lasix/potassium-consult [facility] for unna boots/dressing changes 03/26/2017 Appointment: Sarah Hernandes WPtel: [phone] [phone] [place] (15 min) Moderate 03/26/2017 Patient Education: [...] indomethacin-stop aleve 03/22/2017 Appointment: Sarah Hernandes WPtel: [phone] (15 min) Moderate 03/22/2017 Patient Education: [...] of control. 03/08/2017 Appointment: Sarah Hernandes WPtel: [address] [place], [place] [phone] (30 min) Complex 03/08/2017 Patient Education: Patient [...] care surrogate. 11/30/2016 Appointment: Sarah Hernandes WPtel: [address] [place], [place] [phone] [facility] - Annual Wellness Visit 11/30/2016 Patient [...] continue with increase in fluids. 11/28/2016 Appointment: Laura Dorene [facility]Ptel: [phone] [facility] (15 min) Moderate 11/28/2016 Patient Education: Patient [...] 01/26/2015 Referral: Edgard Rivera MD WPtel: [address] Referral Appointment Requested Instructions Comment . [...] discuss further treatment options with Dr Moreno . Hypertension - well controlled - continue [...] months based on previous levels of control. 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 INCREASE LASIX AND POTASSIUM TO TWICE DAILY [facility] -[facility]OUND [facility] . Cellulitis-left leg-continue levaquin Edema-increase lasix/potassium-consult [facility] for unna boots/dressing changes . Hypertension - well controlled - continue with current medications, continue with no added salt diet. Pt has been encouraged to exercise daily. The pt has been advised to call the office if there are any acute concerns about change in blood pressure readings at home. Renal failure - continue with increase in fluids. RETURN LATER THIS WEEK FOR FASTING LABS [...] change in symptoms or any acute concerns. increase the victoza to 1.2 . Hypertension [...] with Dr Frausto for vascular evaluation . Xhjeslrmwy-ynxjsvson-mhrfgpc to finish abx-no further treatment indicated Edema-significantly [...] b12 shots. WOUND CARE APPT ANTIBIOTIC TO [facility] . Cellulitis - start oral antibiotics as previously directed, return to clinic as previously directed, call for acute change in symptoms, worsening redness, warmth, discharge. 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
--- OUTSIDE RECORDS SUMMARY | 2018-11-26 11:57 | XMS REPORT | CCD ---
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 Name Role Phone PP Unavailable CCM Unavailable Summary Purpose Interface Exchange Insurance Providers Payer name Policy type / Coverage type Covered constitution party ID Effective Begin Date Effective End Date WPS Medicare Part B Medicare Part B [id number] Unknown Unknown Family history Father Diagnosis Age At Onset Stroke Unknown Mother Diagnosis Age At Onset Stroke Unknown Diabetes mellitus Type 2 Unknown Social History Social History Element Codes Description Effective Dates Tobacco history SNOMED CT: 095356440 Currently uses smokeless tobacco Chews 05/04/2016 Marital status Unknown 01/26/2015 Number of children Unknown 3 01/26/2015 Employment Unknown Retired 01/26/[address]: 470477822 Never drinks alcohol quit in July 2014 [...] Fill Instructions oxycodone 20 mg tablet RxNorm: 8672193 1/2 Tablet(s) PO Q6 as needed 08/15/2018 09/13/2018 Active oxycodone 20 mg tablet RxNorm: 3634778 1/2 Tablet(s) PO Q6 as needed 07/16/2018 08/14/2018 Inactive oxycodone 20 mg tablet RxNorm: 1990364 1/2 Tablet(s) PO Q6 as needed 06/14/2018 07/13/2018 Inactive gabapentin 100 mg capsule RxNorm: 161695 TAKE ONE CAPSULE BY MOUTH IN THE EVENING AT 5PM 05/30/2018 09/26/2018 Active oxycodone 20 mg tablet RxNorm: 0263315 1/2 Tablet(s) PO Q6 as needed 05/15/2018 06/13/2018 Inactive oxycodone 20 mg tablet RxNorm: 9747135 1/2 Tablet(s) PO Q6 as needed 04/12/2018 05/11/2018 Inactive oxycodone 20 mg tablet RxNorm: 8744645 1/2 Tablet(s) PO Q6 as needed 03/11/2018 04/09/2018 Inactive levothyroxine 200 mcg tablet RxNorm: 795279 1 Tablet(s) PO daily 02/21/2018 02/15/2019 Active Cipro 500 mg tablet RxNorm: 168925 1 Tablet(s) PO BID 201702/20/2018 Inactive levothyroxine 200 mcg tablet RxNorm: 824336 1 Tablet(s) PO daily 02/21/2018 02/20/2018 Inactive Cipro 500 mg tablet RxNorm: 735518 1 Tablet(s) PO BID 201703/02/2018 Inactive oxycodone 20 mg tablet RxNorm: 0556114 1/2 Tablet(s) PO Q6 as needed 02/12/2018 03/10/2018 Inactive oxycodone 20 mg tablet RxNorm: 7749931 1/2 Tablet(s) PO Q6 as needed 01/16/2018 02/11/2018 Inactive gabapentin 100 mg capsule RxNorm: 947213 TAKE ONE CAPSULE BY MOUTH IN THE EVENING AT 5PM 01/15/2018 05/29/2018 Inactive bisoprolol 5 mg-hydrochlorothiazide 6.25 mg tablet RxNorm: 888520 TAKE ONE TABLET BY MOUTH DAILY 01/01/2018 12/26/2018 Active oxycodone 20 mg tablet RxNorm: 7344345 1/2 Tablet(s) PO Q6 as needed 12/20/2017 01/14/2018 Inactive oxycodone 20 mg tablet RxNorm: 6156574 1/2 Tablet(s) PO Q6 as needed 11/20/2017 12/19/2017 Inactive Victoza 2-Dino 0.6 mg/0.1 mL (18 mg/3 mL) subcutaneous pen injector RxNorm: 255524 1.2 Milligram(s) SQ daily 11/08/201712/07 Inactive oxycodone 20 mg tablet RxNorm: 1622237 1/2 Tablet(s) PO Q6 as needed 10/19/2017 11/17/2017 Inactive Lasix 20 mg tablet RxNorm: 139961 1 Tablet(s) QAM at 5pm 12/201703/18/2018 Inactive gabapentin 100 mg capsule RxNorm: 159809 1 Capsule(s) PO QPM at 5 pm 09/20/2017 01/14/2018 Inactive oxycodone 20 mg tablet RxNorm: 9571087 1/2 Tablet(s) PO Q6 as needed 09/18/2017 10/17/2017 Inactive oxycodone 20 mg tablet RxNorm: 9302440 1/2 Tablet(s) PO Q6 as needed 08/14/2017 09/12/2017 Inactive ketoconazole 2 % topical cream RxNorm: 345725 1 Gram(s) TOP BID to affected area until healed 08/03/2017 No Stop Date Active oxycodone 20 mg tablet RxNorm: 5162610 1/2 Tablet(s) PO Q6 as needed 07/17/2017 08/13/2017 Inactive pen needle, diabetic 31 gauge x 5/16" RxNorm: 1 Unit Dose Miscellaneous daily 06/25/2017 03/21/2018 Inactive daily use with victoza Bactrim DS 800 mg-160 mg tablet RxNorm: 737354 1 Tablet(s) PO BID Dr Norwood 06/25/2017 07/04/2017 Inactive Victoza 2-Dino 0.6 mg/0.1 mL (18 mg/3 mL) subcutaneous pen injector RxNorm: 634561 0.6 Milligram(s) SQ daily 06/25/201707/24 Inactive doxycycline hyclate 100 mg tablet RxNorm: 901701 1 Tablet(s) PO BID Dr Norwood 06/21/2017 06/30/2017 Inactive oxycodone 20 mg tablet RxNorm: 5651221 1/2 Tablet(s) PO Q6 as needed 06/14/2017 07/13/2017 Inactive clindamycin 150 mg capsule RxNorm: 633391 1 Capsule(s) PO Q8 06/16/2017 Inactive levothyroxine 175 mcg tablet RxNorm: 821430 TAKE ONE TABLET BY MOUTH DAILY 06/04/2017 09/01/2017 Inactive levothyroxine 175 mcg tablet RxNorm: 264421 TAKE ONE TABLET BY MOUTH DAILY 06/04/2017 11/30/2017 Inactive bisoprolol 5 mg-hydrochlorothiazide 6.25 mg tablet RxNorm: 400782 TAKE ONE TABLET BY MOUTH DAILY 05/24/2017 11/19/2017 Inactive oxycodone 20 mg tablet RxNorm: 4792235 1/2 Tablet(s) PO Q6 as needed 05/14/2017 06/12/2017 Inactive potassium chloride ER 10 mEq capsule,extended release RxNorm: 609225 TAKE ONE CAPSULE BY MOUTH DAILY NEEDED FOR 5 DAYS THEN NEEDED WITH LASIX 04/17/2017 10/13/2017 Inactive Lasix 20 mg tablet RxNorm: 894066 TAKE ONE TABLET BY MOUTH DAILY NEEDED 04/17/2017 09/19/2017 Inactive oxycodone 20 mg tablet RxNorm: 7681311 1/2 Tablet(s) PO Q6 as needed 04/12/2017 05/11/2017 Inactive Colcrys 0.6 mg tablet RxNorm: 025463 2 tabs at onset then may repeat 1 tab in 1 hours if needed- Tablet(s) PO 04/09/2017 No Stop Date Active then take daily until gout resolved Bactrim DS 800 mg-160 mg tablet RxNorm: 381167 1 Tablet(s) PO BID 04/09/2017 04/08/2017 Inactive dc levaquin Bactrim DS 800 mg-160 mg tablet RxNorm: 834968 1 Tablet(s) PO BID 04/09/2017 04/15/2017 Inactive dc levaquin Levaquin 500 mg tablet RxNorm: 820399 1 Tablet(s) PO daily 04/02/2017 Inactive Levaquin 500 mg tablet RxNorm: 719402 1 Tablet(s) PO daily 06/06/2017 Inactive indomethacin 25 mg capsule RxNorm: 096414 1 Capsule(s) PO TID PRN 03/22/2017 03/22/2017 Inactive Lasix 20 mg tablet RxNorm: 080158 1 Tablet(s) PO QDAY PRN 02/201704/16/2017 Inactive daily x 5 days then as needed Levaquin 500 mg tablet RxNorm: 976643 1 Tablet(s) PO daily 02/201703/31/2017 Inactive potassium chloride ER 10 mEq capsule,extended release RxNorm: 632999 1 Capsule(s) PO QDAY PRN 03/22/2017 04/16/2017 Inactive daily x 5 days then as needed with lasix oxycodone 20 mg tablet RxNorm: 7442562 1/2 Tablet(s) PO Q6 as needed 03/08/2017 04/06/2017 Inactive bisoprolol 5 mg-hydrochlorothiazide 6.25 mg tablet RxNorm: 983000 TAKE ONE TABLET BY MOUTH DAILY 02/14/2017 05/14/2017 Inactive oxycodone 20 mg tablet RxNorm: 2257362 1/2 Tablet(s) PO Q6 as needed 02/08/2017 03/07/2017 Inactive oxycodone 20 mg tablet RxNorm: 2186422 1/2 Tablet(s) PO Q6 as needed 01/08/2017 02/06/2017 Inactive levothyroxine 175 mcg tablet RxNorm: 516490 1 Tablet(s) PO daily 12/06/2016 06/03/2017 Inactive [SAVINGS FOR NON-COVERED DRUGS -- BIN:[id number], PCN: ASPROD1, Group: XXXXX, ID# XXXXXXX, Questions: . THIS IS NOT INSURANCE.] oxycodone 20 mg tablet RxNorm: 1076091 1/2 Tablet(s) PO Q6 as needed 12/04/2016 01/02/2017 Inactive oxycodone 20 mg tablet RxNorm: 7638698 1/2 Tablet(s) PO Q6 as needed 11/09/2016 12/03/2016 Inactive bisoprolol 5 mg-hydrochlorothiazide 6.25 mg tablet RxNorm: 635391 TAKE ONE TABLET BY MOUTH DAILY 11/08/2016 02/05/2017 Inactive oxycodone 20 mg tablet RxNorm: 5830448 1/2 Tablet(s) PO Q6 as needed 10/05/2016 11/03/2016 Inactive oxycodone 20 mg tablet RxNorm: 2929906 1/2 Tablet(s) PO Q6 as needed 09/06/2016 10/04/2016 Inactive oxycodone 20 mg tablet RxNorm: 0441235 1/2 Tablet(s) PO Q6 as needed 08/07/2016 09/05/2016 Inactive oxycodone 20 mg tablet RxNorm: 1370298 1/2 Tablet(s) PO Q6 as needed 07/04/2016 08/06/2016 Inactive oxycodone 20 mg tablet RxNorm: 0987186 1/2 Tablet(s) PO Q6 as needed 05/29/2016 07/03/2016 Inactive levothyroxine 150 mcg tablet RxNorm: 932189 1 Tablet(s) PO daily 04/10/2016 04/09/2016 Inactive [SAVINGS FOR NON-COVERED DRUGS -- BIN:[id number], PCN: ASPROD1, Group: XXXXX, ID# XXXXXXX, Questions: . THIS IS NOT INSURANCE.] oxycodone 20 mg tablet RxNorm: 5434764 1/2 Tablet(s) PO Q6 as needed 04/10/2016 05/28/2016 Inactive levothyroxine 150 mcg tablet RxNorm: 569409 1 Tablet(s) PO daily 04/10/2016 10/06/2016 Inactive [SAVINGS FOR NON-COVERED DRUGS -- BIN:[id number], PCN: ASPROD1, Group: XXXXX, ID# XXXXXXX, Questions: . THIS IS NOT INSURANCE.] bisoprolol 5 mg-hydrochlorothiazide 6.25 mg tablet RxNorm: 589695 1 Tablet(s) PO daily 02/16/2016 12/31/2017 Inactive oxycodone 20 mg tablet RxNorm: 8427712 1/2 Tablet(s) PO Q6 as needed 02/16/2016 04/09/2016 Inactive oxycodone 20 mg tablet RxNorm: 8925455 1/2 Tablet(s) PO Q6 as needed 01/04/2016 02/15/2016 Inactive bisoprolol 5 mg-hydrochlorothiazide 6.25 mg tablet RxNorm: 892856 1 Tablet(s) PO daily 11/19/2015 01/17/2016 Inactive bisoprolol 5 mg-hydrochlorothiazide 6.25 mg tablet RxNorm: 626115 1 Tablet(s) PO daily 11/04/2015 11/18/2015 Inactive oxycodone 20 mg tablet RxNorm: 1892676 1/2 Tablet(s) PO Q6 as needed 10/27/2015 01/03/2016 Inactive levothyroxine 150 mcg tablet RxNorm: 631826 1 Tablet(s) PO daily 08/26/2015 02/21/2016 Inactive [SAVINGS FOR NON-COVERED DRUGS -- BIN:[id number], PCN: ASPROD1, Group: XXXXX, ID# XXXXXXX, Questions: . THIS IS NOT INSURANCE.] bisoprolol 5 mg-hydrochlorothiazide 6.25 mg tablet RxNorm: 285580 1 Tablet(s) PO daily 08/26/2015 10/24/2015 Inactive oxycodone 10 mg tablet RxNorm: 2743135 1 Tablet(s) PO Q6 as needed 05/06/2015 10/26/2015 Inactive levothyroxine 150 mcg tablet RxNorm: 341430 1 Tablet(s) PO daily 02/05/2015 08/03/2015 Inactive [SAVINGS FOR NON-COVERED DRUGS -- BIN:[id number], PCN: ASPROD1, Group: XXXXX, ID# XXXXXXX, Questions: . THIS IS NOT INSURANCE.] Vitamin D2 50,000 unit capsule RxNorm: 208937 1 Capsule(s) PO weekly 02/05/2015 05/05/2015 Inactive [SAVINGS FOR NON-COVERED DRUGS -- BIN:[id number], PCN: ASPROD1, Group: XXXXX, ID# XXXXXXX, Questions: . THIS IS NOT INSURANCE.] Vitamin D2 50,000 unit capsule RxNorm: 121228 1 Capsule(s) PO weekly 02/05/2015 02/04/2015 Inactive bisoprolol 5 mg-hydrochlorothiazide 6.25 mg tablet RxNorm: 610186 1 Tablet(s) PO daily 01/26/2015 02/24/2015 Inactive levothyroxine 200 mcg tablet RxNorm: 350125 1 Tablet(s) PO daily 01/26/2015 01/25/2015 Inactive levothyroxine 200 mcg tablet RxNorm: 522708 1 Tablet(s) PO every other day 01/26/2015 02/04/2015 Inactive [SAVINGS FOR NON-COVERED DRUGS -- BIN:721353, PCN: ASPROD1, Group: XXXXX, ID# XXXXXXX, Questions: . THIS IS NOT INSURANCE.] aspirin 81 mg chewable tablet RxNorm: 112577 1 Tablet(s) PO daily No Start Date Active Plavix 75 mg tablet RxNorm: 316741 1 Tablet(s) PO daily manage by Dr Baig No Start Date Active simvastatin 40 mg tablet RxNorm: 949087 1 Tablet(s) PO QHS managed by Dr Baig No Start Date Active Colcrys 0.6 mg tablet RxNorm: 397912 2 tabs at onset then may repeat 1 tab in 1 hours if needed- Tablet(s) PO No Start Date 04/08/2017 Inactive then take daily until gout resolved aspirin 325 mg tablet RxNorm: 518840 1 Tablet(s) PO daily No Start Date 05/03/2016 Inactive levothyroxine 75 mcg tablet RxNorm: 870016 1 Tablet(s) PO every other day No Start Date 02/04/2015 Inactive takes qod with 200mcg oxycodone 10 mg tablet RxNorm: 3594880 1 Tablet(s) PO Q6 as needed No Start Date 05/05/2015 Inactive ketoconazole 2 % topical cream RxNorm: 791525 1 Gram(s) TOP BID to affected area [...] Item Item Code Result Date Culture Urine [id number] URINE CULTURE SEE NOTES 02/22/2018 Urine Culture [...] 24.5 pg 02/20/2018 Cbc With Differential Ord2 [place]% 8.9 % 02/20/2018 Cbc With Differential Ord2 [...] 0.81 K/ul 02/20/2018 Cbc With Differential Ord2 [place] ABS# 0.7 K/ul 02/20/2018 Cbc With Differential Ord2 Eos ABS# 0.4 K/ul 02/20/2018 Cbc With Differential Ord2 Baso ABS# 0.0 K/ul 02/20/2018 %Hba1C Oru300 % HbA1c 54878-4 7.7 % 02/20/2018 %Hba1C Hyz533 Gluc Ave 174 mg/dL 02/20/2018 Lipase Qhs502 LIPASE 17 U/L 02/20/2018 Microalbumin Gqg649 MicroAlb 6.5 mg/dL 02/20/2018 Amylase Ord34 AMYLASE 15 U/L 02/20/2018 Free T4 Ogz029 FREE T4 0.61 ng/dL 02/20/2018 Lipid Ord30 CHOL 203 mg/dL 02/20/2018 Lipid Ord30 HDL 7.0 mg/dl 02/20/2018 Lipid Ord30 TRIG 271 mg/dL 02/20/2018 Lipid Ord30 LDL 142 mg/dL 02/20/2018 Lipid Ord30 C/HDL 29.0 Ratio 02/20/2018 Comp Metabolic Zvx479 NA 134 mEq/L 02/20/2018 Comp Metabolic Ifg169 K 3.6 mEq/L 02/20/2018 Comp Metabolic Ckr416 CL 96 mEq/L 02/20/2018 Comp Metabolic Igq170 CO2 29.0 mEq/L 02/20/2018 Comp Metabolic Lcs366 ANION GAP 13 02/20/2018 Comp Metabolic Cme573 GLUCOSE 165 mg/dL 02/20/2018 Comp Metabolic Nhc160 Creat 1.2 mg/dL 02/20/2018 Comp Metabolic Jup815 eGFR 63 ml/min/1.73m2 02/20/2018 Comp Metabolic Mvn409 BUN 14 mg/dL 02/20/2018 Comp Metabolic Jgc887 B/C Ratio 11.6 Ratio 02/20/2018 Comp Metabolic Eyu910 CALCIUM 8.5 mg/dL 02/20/2018 Comp Metabolic Pjv513 ALK PHOS 633 U/L 02/20/2018 Comp Metabolic Jwe219 AST(SGOT) 112 U/L 02/20/2018 Comp Metabolic Ykg352 ALT(SGPT) 148 U/L 02/20/2018 Comp Metabolic Mfz150 BILI T 6.8 mg/dL 02/20/2018 Comp Metabolic Epe338 ALBUMIN 3.3 g/dL 02/20/2018 Comp Metabolic Afd518 TPRO 5.9 g/dL 02/20/2018 Comp Metabolic Bjq596 GLOB 2.6 g/dL 02/20/2018 Comp Metabolic Wae895 A/G Ratio 1.3 Ratio 02/20/2018 Comp Metabolic Mlr582 Osmo 272 mOsmo 02/20/2018 Total Psa Ord10 [...] Metabolic Ord15 CALCIUM 9.2 mg/dL 11/09/2017 %Hba1C Ylh553 % HbA1c 35038-2 8.0 % 11/09/2017 %Hba1C Zpd645 Gluc Ave 183 mg/dL 11/09/2017 Metabolic Ord15 [...] Ord15 CALCIUM 8.7 mg/dL 06/25/2017 Culture Wound [id number] WOUND CULTURE SEE NOTES 04/09/2017 Culture Wound [id number] Continued Results 04/09/2017 Amylase Ord34 AMYLASE 19 [...] 27.9 pg 03/22/2017 Cbc With Differential Ord2 [place]% 8.3 % 03/22/2017 Cbc With Differential Ord2 [...] 1.35 K/ul 03/22/2017 Cbc With Differential Ord2 [place] ABS# 1.4 K/ul 03/22/2017 Cbc With Differential Ord2 Eos ABS# 0.2 K/ul 03/22/2017 Cbc With Differential Ord2 Baso ABS# 0.0 K/ul 03/22/2017 Comp Metabolic Uxg908 NA 134 mEq/L 03/22/2017 Comp Metabolic Dyo201 K 4.5 mEq/L 03/22/2017 Comp Metabolic Rhn542 CL 93 mEq/L 03/22/2017 Comp Metabolic Hzy944 CO2 31.0 mEq/L 03/22/2017 Comp Metabolic Ocy964 ANION GAP 15 03/22/2017 Comp Metabolic Enq296 GLUCOSE 198 mg/dL 03/22/2017 Comp Metabolic Swx523 Creat 1.5 mg/dL 03/22/2017 Comp Metabolic Oyg690 eGFR 50 ml/min/1.73m2 03/22/2017 Comp Metabolic Cpp077 BUN 32 mg/dL 03/22/2017 Comp Metabolic Qcd195 B/C Ratio 21.6 Ratio 03/22/2017 Comp Metabolic Vrd861 CALCIUM 8.4 mg/dL 03/22/2017 Comp Metabolic Uuf835 ALK PHOS 245 U/L 03/22/2017 Comp Metabolic Nvn142 AST(SGOT) 18 U/L 03/22/2017 Comp Metabolic Rqy159 ALT(SGPT) 17 U/L 03/22/2017 Comp Metabolic Ajt247 BILI T 0.8 mg/dL 03/22/2017 Comp Metabolic Fde601 ALBUMIN 2.9 g/dL 03/22/2017 Comp Metabolic Wjt661 TPRO 6.3 g/dL 03/22/2017 Comp Metabolic Qxr575 GLOB 3.4 g/dL 03/22/2017 Comp Metabolic Tpc642 A/G Ratio 0.8 Ratio 03/22/2017 Comp Metabolic Abl444 Osmo 281 mOsmo 03/22/2017 Lipase Uzv528 LIPASE 12 U/L 03/22/2017 Comp Metabolic Wch612 NA 142 mEq/L 03/09/2017 Comp Metabolic Xtp415 K 4.8 mEq/L 03/09/2017 Comp Metabolic Fll786 CL 103 mEq/L 03/09/2017 Comp Metabolic Upz037 CO2 30.0 mEq/L 03/09/2017 Comp Metabolic Pmo703 ANION GAP 14 03/09/2017 Comp Metabolic Mmn675 GLUCOSE 152 mg/dL 03/09/2017 Comp Metabolic Uhr251 Creat 1.3 mg/dL 03/09/2017 Comp Metabolic Utm334 eGFR 56 ml/min/1.73m2 03/09/2017 Comp Metabolic Zty189 BUN 23 mg/dL 03/09/2017 Comp Metabolic Dga600 B/C Ratio 17.3 Ratio 03/09/2017 Comp Metabolic Xqr165 CALCIUM 8.5 mg/dL 03/09/2017 Comp Metabolic Ulj893 ALK PHOS 97 U/L 03/09/2017 Comp Metabolic Wby483 AST(SGOT) 10 U/L 03/09/2017 Comp Metabolic Ncs689 ALT(SGPT) 6 U/L 03/09/2017 Comp Metabolic Hgv417 BILI T 0.4 mg/dL 03/09/2017 Comp Metabolic Tdm275 ALBUMIN 3.4 g/dL 03/09/2017 Comp Metabolic Xan218 TPRO 6.2 g/dL 03/09/2017 Comp Metabolic Ast096 GLOB 2.8 g/dL 03/09/2017 Comp Metabolic Yul045 A/G Ratio 1.2 Ratio 03/09/2017 Comp Metabolic Kmi054 Osmo 290 mOsmo 03/09/2017 Free T4 Jjw268 FREE T4 0.86 ng/dL 03/08/2017 Cbc With [...] 28.2 pg 03/08/2017 Cbc With Differential Ord2 [place]% 8.7 % 03/08/2017 Cbc With Differential Ord2 [...] 1.63 K/ul 03/08/2017 Cbc With Differential Ord2 [place] ABS# 0.9 K/ul 03/08/2017 Cbc With Differential Ord2 Eos ABS# 0.5 K/ul 03/08/2017 Cbc With Differential Ord2 Baso ABS# 0.0 K/ul 03/08/2017 Tsh Ord6 hTSH II 4.52 uIU/mL 03/08/2017 %Hba1C Lfh987 % HbA1c 75522-7 8.5 % 03/08/2017 %Hba1C Yev199 Gluc Ave 197 mg/dL 03/08/2017 %Hba1C Oiu122 % HbA1c 41749-3 9.8 % 12/04/2016 %Hba1C Uey839 Gluc Ave 235 mg/dL 12/04/2016 Tsh Ord6 hTSH II 10.65 uIU/mL 11/30/2016 Comp Metabolic Mwb083 NA 134 mEq/L 11/30/2016 Comp Metabolic Dnj374 K 5.0 mEq/L 11/30/2016 Comp Metabolic Pkh815 CL 95 mEq/L 11/30/2016 Comp Metabolic Hzk736 CO2 34.0 mEq/L 11/30/2016 Comp Metabolic Gxa971 ANION GAP 10 11/30/2016 Comp Metabolic Tyk106 GLUCOSE 226 mg/dL 11/30/2016 Comp Metabolic Qnj732 Creat 1.3 mg/dL 11/30/2016 Comp Metabolic Qnc475 eGFR 56 ml/min/1.73m2 11/30/2016 Comp Metabolic Mqb893 BUN 21 mg/dL 11/30/2016 Comp Metabolic Mpo723 B/C Ratio 15.7 Ratio 11/30/2016 Comp Metabolic Mdq554 CALCIUM 8.9 mg/dL 11/30/2016 Comp Metabolic Gzt855 ALK PHOS 112 U/L 11/30/2016 Comp Metabolic Uef054 AST(SGOT) 9 U/L 11/30/2016 Comp Metabolic Mqw924 ALT(SGPT) 7 U/L 11/30/2016 Comp Metabolic Kvz049 BILI T 0.6 mg/dL 11/30/2016 Comp Metabolic Dhm612 ALBUMIN 3.6 g/dL 11/30/2016 Comp Metabolic Psy763 TPRO 6.4 g/dL 11/30/2016 Comp Metabolic Owd363 GLOB 2.9 g/dL 11/30/2016 Comp Metabolic Mbs770 A/G Ratio 1.2 Ratio 11/30/2016 Comp Metabolic Pde500 Osmo 278 mOsmo 11/30/2016 Lipid Ord30 CHOL [...] 13.0 % 11/30/2016 Cbc With Differential Ord2 [place]% 7.9 % 11/30/2016 Cbc With Differential Ord2 [...] 1.34 K/ul 11/30/2016 Cbc With Differential Ord2 [place] ABS# 0.8 K/ul 11/30/2016 Cbc With Differential Ord2 Eos ABS# 0.3 K/ul 11/30/2016 Cbc With Differential Ord2 Baso ABS# 0.0 K/ul 11/30/2016 Free T4 Izy093 FREE T4 0.89 ng/dL 11/30/2016 Review of [...] Codes Date ADMIN PNEUMOCOCCAL VACCINE SNOMED CT: 30588312 CPT-4: G0009 02/05/2018 Pneumococcal Polysaccharide Vaccine, 23-Valent, Ad CPT-4: 99138 02/05/2018 PPPS, SUBSEQ VISIT CPT -4: G0439 11/30/2017 URINALYSIS NONAUTO W/O SCOPE CPT-4: 90492 03/22/2017 URINALYSIS NONAUTO W/O SCOPE CPT-4: 88594 03/21/2017 PPPS, SUBSEQ VISIT CPT -4: G0439 11/30/2016 PNEUMOCOCCAL VACC 13 JAVIER IM Formatting Model/CDA Sections, Assigned to SNOMED CT: 13001125 CPT-4: 62033Fvwdvnb 11/30/2016 ADMIN PNEUMOCOCCAL VACCINE SNOMED CT: 00956433 CPT-4: G0009 11/30/2016 Vital Signs Date Vital 08/29/2018 Blood Pressure 1: 104/60 Code : 8480-6 BMI: 34.6 Code : 82455-1 Heart Rate 1 : 68 bpm Height: 5'10" SpO2: 98% Weight: 241 lbs 02/25/2018 Blood Pressure 1: 120/70 Code : 8480-6 BMI: 37.0 Code : 46517-4 Heart Rate 1 : 51 bpm Height: 5'10" SpO2: 97% Weight: 258 lbs 02/20/2018 Blood Pressure 1: 124/70 Code : 8480-6 BMI: 38.0 Code : 70423-1 Heart Rate 1 : 60 bpm Height: 5'10" SpO2: 96% Weight: 265 lbs 02/05/2018 Blood Pressure 1: 116/66 Code : 8480-6 BMI: 38.0 Code : 19119-7 Heart Rate 1 : 63 bpm Height: 5'10" SpO2: 98% Weight: 265 lbs 11/30/2017 Blood Pressure 1: 132/60 Code : 8480-6 BMI: 37.0 Code : 31149-8 Heart Rate 1 : 100 bpm Height: 5'10 " SpO2: 96% Waist Measure (cm): 122 cm Weight: 258 lbs 11/08/2017 Blood Pressure 1: 126/64 Code : 8480-6 BMI: 37.2 Code : 55725-3 Heart Rate 1 : 92 bpm Height: 5'10" SpO2: 94% Weight: 259 lbs 09/20/2017 Blood Pressure 1: 122 Code : 8480-6 BMI: 36.9 Code : 44500-5 Heart Rate 1 : 57 bpm Height: 5'10" SpO2: 96% Weight: 257 lbs 06/25/2017 Blood Pressure 1: 124 Code : 8480-6 BMI: 37.0 Code : 00283-8 Height: 5'10 " Weight: 258 lbs 06/07/2017 Blood Pressure 1: 122 Code : 8480-6 BMI: 37.0 Code : 01289-8 Heart Rate 1 : 60 bpm Height: 5'10" SpO2: 94% Temperature: 36.4 (C) / 97.6 (F) Weight: 258 lbs 05/03/2017 Blood Pressure 1: 118/ Code : 8480-6 BMI: 38.2 Code : 24000-0 Heart Rate 1 : 52 bpm Height: 5'10" SpO2: 98% Weight: 266 lbs 04/02/2017 Blood Pressure 1: 11862 Code : 8480-6 BMI: 38.2 Code : 04921-3 Heart Rate 1 : 53 bpm Height: 5'10" SpO2: 93% Weight: 266 lbs 03/26/2017 Blood Pressure 1: 114 Code : 8480-6 BMI: 38.3 Code : 91749-5 Height: 5'10 " Weight: 267 lbs 03/22/2017 Blood Pressure 1: 12264 Code : 8480-6 BMI: 40.0 Code : 71095-4 Heart Rate 1 : 52 bpm Height: 5'10" SpO2: 94% Weight: 279 lbs 03/08/2017 Blood Pressure 1: 124/ Code : 8480-6 BMI: 39.4 Code : 58882-9 Heart Rate 1 : 51 bpm Height: 5'10" SpO2: 94% Weight: 274 lbs 8 oz 12/06/2016 Blood Pressure 1: 126/62 Code : 8480-6 BMI: 40.3 Code : 28096-6 Heart Rate 1 : 50 bpm Height: 5'10" SpO2: 94% Weight: 281 lbs 11/30/2016 Blood Pressure 1: 112/62 Code : 8480-6 BMI: 40.3 Code : 59767-9 Heart Rate 1 : 52 bpm Height: 5'10" SpO2: 93% Waist Measure (cm): 135 cm Weight: 281 lbs 11/28/2016 Blood Pressure 1: 132/72 Code : 8480-6 BMI: 40.3 Code : 40935-1 Heart Rate 1 : 50 bpm Height: 5'10" Weight: 281 lbs 05/04/2016 Blood Pressure 1: 128/78 Code : 8480-6 BMI: 38.5 Code : 75164-7 Heart Rate 1 : 74 bpm Height: 5'10" SpO2: 98% Weight: 268 lbs 8 oz 11/04/2015 Blood Pressure 1: 136/60 Code : 8480-6 BMI: 38.0 Code : 07635-7 Heart Rate 1 : 55 bpm Height: 5'10" SpO2: 94% Weight: 265 lbs 07/30/2015 Blood Pressure 1: 128/74 Code : 8480-6 BMI: 38.0 Code : 09319-3 Heart Rate 1 : 47 bpm Height: 5'10" SpO2: 97% Weight: 265 lbs 01/26/2015 Blood Pressure 1: 122/64 Code : 8480-6 BMI: 34.0 Code : 56960-0 Heart Rate 1 : 68 bpm Height: [...] data Encounters Encounter Performer Location Codes Date ([id number]) [id number] EST. PATIENT, LEVEL IV Diagnosis: Type 2 diabetes mellitus with hyperglycemia[ICD10: E11.65] Diagnosis: Essential (primary) hypertension[ICD10: I10] Diagnosis: Malignant neoplasm of prostate[ICD10: C61] Sarah Sanchez MD, [facility] CPT-4: 14467 08/29/2018 ([id number]) [id number] EST. PATIENT, LEVEL IV Diagnosis: Malignant neoplasm of prostate[ICD10: C61] Dorene Sanchez MD, [facility] CPT-4: 80417 02/25/2018 [id number] EST. PATIENT, LEVEL IV Diagnosis: Generalized abdominal pain[ICD10: R10.84] Diagnosis: Unspecified jaundice[ICD10: R17] Diagnosis: Gross hematuria[ICD10: R31.0] Kiki Sanchez MD, [facility] CPT-4 : 61044 02/20/2018 ([id number]) 16351 EST. PATIENT, LEVEL IV Diagnosis: Type 2 diabetes mellitus with hyperglycemia[ICD10: E11.65] Diagnosis: Essential (primary) hypertension[ICD10: I10] Diagnosis: Chronic kidney disease, stage 3 (moderate)[ICD10: N18.3] Diagnosis: Chronic pain syndrome[ICD10: G89.4] Diagnosis: Other specified hypothyroidism[ICD10: E03.8] Diagnosis: Encounter for screening for malignant neoplasm of prostate[ICD10: Z12.5] Diagnosis: Encounter for immunization[ICD10: Z23] Sarah Sanchez MD, [facility] CPT-4: 79137 02/05/2018 ([id number]) 51515 EST. PATIENT, LEVEL IV Diagnosis: Type 2 diabetes mellitus with hyperglycemia[ICD10: E11.65] Diagnosis: Essential (primary) hypertension[ICD10: I10] Dorene Sanchez MD, [facility] CPT-4: 15144 11/08/2017 ([id number]) 72681 EST. PATIENT, LEVEL IV Diagnosis: Type 2 diabetes mellitus with hyperglycemia[ICD10: E11.65] Diagnosis: Chronic pain syndrome[ICD10: G89.4] Diagnosis: Essential (primary) hypertension[ICD10: I10] Diagnosis: Chronic kidney disease, stage 3 (moderate)[ICD10: N18.3] Diagnosis: Localized edema[ICD10: R60.0] Dorene Sanchez MD, [facility] CPT- 4: 22042 09/20/2017 ([id number]) 24188 EST. PATIENT, LEVEL III Diagnosis: Type 2 diabetes mellitus with hyperglycemia[ICD10: E11.65] Sarah Sanchez MD, [facility] CPT-4: 43050 06/25/2017 ([id number]) 21289 EST. PATIENT, LEVEL III Diagnosis: Cellulitis of left lower limb[ICD10: L03.116] Sarah Sanchez MD, [facility] CPT-4: 32626 06/07/2017 ([id number]) 31454 EST. PATIENT, LEVEL III Diagnosis: Localized edema[ICD10: R60.0] Diagnosis: Type 2 diabetes mellitus with foot ulcer[ICD10: E11.621] Sarah Sanchez MD , [facility] CPT-4: 93641 05/03/2017 ([id number]) 72102 EST. PATIENT, LEVEL III Diagnosis: Cellulitis of left lower limb[ICD10: L03.116] Diagnosis: Localized edema[ICD10: R60.0] Sarah Sanchez MD, [facility] CPT-4: 08826 04/02/2017 ([id number]) Miscellaneous no charge Diagnosis: Localized edema[ICD10: R60.0] Diagnosis: Cellulitis of left lower limb[ICD10: L03.116] Sarah Sanchez MD, [facility] CPT-4: 81586 03/26/2017 ([id number]) 34527 EST. PATIENT, LEVEL IV Diagnosis: Cellulitis of left lower limb[ICD10: L03.116] Diagnosis: Chronic gout due to renal impairment, left ankle and foot, without tophus (tophi)[ICD10: M1A.3720] Diagnosis: Localized edema[ICD10: R60.0] Diagnosis: Type 2 diabetes mellitus with hyperglycemia[ICD10: E11.65] Diagnosis: Dysuria[ICD10: R30.0] Dorene Sanchez MD, [facility] CPT-4: 18269 03/22/2017 ([id number]) [id number] EST. PATIENT, LEVEL IV Diagnosis: Type 2 diabetes mellitus with hyperglycemia[ICD10: E11.65] Diagnosis: Other specified hypothyroidism[ICD10: E03.8] Diagnosis: Essential (primary) hypertension[ICD10: I10] Sarah Sanchez MD, [facility] CPT-4: 38422 03/08/2017 [id number]) 02601 EST. PATIENT, LEVEL III Diagnosis: Type 2 diabetes mellitus with hyperglycemia[ICD10: E11.65] Diagnosis: Other specified hypothyroidism[ICD10: E03.8] Sarah Sanchez MD, [facility] CPT-4: 09059 12/06/2016 [id number]) 01495 EST. PATIENT, LEVEL IV Diagnosis: Essential (primary) hypertension[ICD10: I10] Diagnosis: Chronic kidney disease, stage 3 (moderate)[ICD10: N18.3] Dorene Sanchez MD, [facility] CPT-4: 75842 11/28/2016 ([id number]) 27748 EST. PATIENT, LEVEL IV Diagnosis: Essential (primary) hypertension[ICD10: I10] Diagnosis: Chronic pain syndrome[ICD10: G89.4] Diagnosis: Chronic kidney disease, stage 3 (moderate)[ICD10: N18.3] Diagnosis: Vitamin B12 deficiency anemia due to intrinsic factor deficiency[ ICD10: D51.0] Diagnosis: Other specified hypothyroidism[ICD10: E03.8] Dorene Sanchez MD, [facility] CPT-4: 15554 05/04/2016 53475 EST. PATIENT, LEVEL III Diagnosis: Chronic pain syndrome[ICD10: G89.4] Diagnosis: Essential (primary) hypertension[ICD10: I10] Diagnosis: Other specified hypothyroidism[ICD10: E03.8] Kiki Sanchez MD, [facility] CPT-4: 86698 11/04/2015 25735 EST. PATIENT, LEVEL III Diagnosis: Chronic pain syndrome[ICD10: G89.4] Diagnosis: Essential (primary) hypertension[ICD10: I10] Kiki Sanchez MD, [facility] CPT-4: 90916 07/30/2015 ([id number]) OFFICE/OUTPATIENT VISIT NEW Diagnosis: ESSENTIAL HYPERTENSION[ICD9: 401.9] Diagnosis: HYPOTHYROIDISM[ICD9: 244.9] Diagnosis: ANEMIA[ICD9: 285.9] Diagnosis: Vitamin B12 deficiency[ICD9: 266.2] Diagnosis: CHRONIC PAIN SYNDROME[ICD9: 338.4] Diagnosis: Chronic renal insufficiency, stage III (moderate)[ICD9: 585.3] Diagnosis: GOUT[ICD9: 274.9] [facility] CPT-4: 15664 01/26/2015 Plan of Care Planned Activity Notes [...] Completed 08/29/2018 Care Plan: %Hba1C LOINC : [id number] Pending 08/29/2018 Referral: Edgard Rivera MD WPtel: Via [address] with Dr. Moreno. Patient informed. Referral info faxed. Completed 02/27/2018 Visit Plan: Recurrent prostate cancer - I have recommended a referral to Dr. Rivera. We discussed the case at length today- he is not interested in extensive treatment, but if possible to extend his quantity and quality of life, he would like to try. 02/25/2018 Appointment: Dorene Sanchez WPtel[facility] (15 min) Moderate 02/25/2018 Patient Education: Patient Medication Summary Completed 02/25/2018 Care Plan: Referral Order SNOMED-CT : [id number] Pending 02/25/2018 Visit Plan: Intermittent abdominal pain, jaundice, itching - will check labs and treat as indicated - pt is to go to the ER with any acute change in symptoms or any acute concerns. 02/20/2018 Appointment: Kiki Menjivar WPtel[facility] (30 min) Complex 02/20/2018 Patient Education: [...] control. 02/05/2018 Appointment: Sarah Hernandes WPtel: [phone] [phone] (30 min) Complex 02/05/2018 Patient Education: [...] surrogate. 11/30/2017 Appointment: [facility] Hernandes [phone] [facility] - Annual Wellness Visit 11/30/2017 Patient [...] 1.2 11/08/2017 Appointment: Dore[facility] Sanchez [facility]el[phone] [facility] (15 min) Moderate 11/08/2017 Patient [...] of over-medication. 09/20/2017 Appointment: Dore[facility] Sanchez [facility]Ptel[phone] [facility] [place] (15 min) Moderate 09/20/2017 [...] control. 06/25/2017 Appointment: Sarah Hernandes WPtel: [id number] [place] [address] (30 min) Complex 06/25/2017 Patient Education: Patient Medication Summary Completed 06/25/2017 Appointment: Sarah Hernandes WPtel: [address] [place], [place] [phone] [place] [address] (30 min) Complex 06/22/2017 Visit Plan: Cellulitis - start oral antibiotics as previously directed, return to clinic as previously directed, call for acute change in symptoms, worsening redness, warmth, discharge. 06/07/2017 Appointment: Sarah Hernandes WPtel: [phone] (30 min) Complex 06/07/2017 Patient Education: Patient Medication Summary Completed 06/07/2017 Patient Education: Obesity Completed 06/07/2017 Appointment: Dorene Sanchez WPtel: [facility] [place] (15 min) Moderate 05/31/2017 Visit Plan: Edema-significantly improved-no changes Ulcer- left lower leg and foot-seeing Dr Norwood at wound care-appt scheduled with Dr Frausto for vascular evaluation 05/03/2017 Appointment: Sarah Hernandes WPtel: [phone] [phone] (15 min) Moderate 05/03/2017 Patient Education: Patient Medication Summary Completed 05/03/2017 Patient Education: Obesity Completed 05/03/2017 Visit Plan: Tciezunymb-rgsintozg-zkzuykd to finish abx-no further treatment indicated Edema-significantly improved-no longer weeping- continue unna boots twice weekly with home health 04/02/2017 Appointment: Sarah Henrandes WPtel: [phone] [phone] (30 min) Complex 04/02/2017 Patient Education: Patient Medication Summary Completed 04/02/2017 Patient Education: Obesity Completed 04/02/2017 Visit Plan: Cellulitis-left leg-continue levaquin Edema- increase lasix/potassium-consult [facility] for unna boots/dressing changes 03/26/2017 Appointment: Sarah Hernandes WPtel: [phone] [phone] [place] (15 min) Moderate 03/26/2017 Patient [...] aleve 03/22/2017 Appointment: Sarah Hernandes WPtel: [phone] (15 min) Moderate 03/22/2017 Patient Education: [...] of control. 03/08/2017 Appointment: Sarah Hernandes WPtel: [address] [place], [place] [phone] (30 min) Complex 03/08/2017 Patient Education: Patient [...] care surrogate. 11/30/2016 Appointment: Sarah Hernandes WPtel: [address] [place] [phone] [facility] - Annual Wellness Visit 11/30/2016 Patient [...] fluids. 11/28/2016 Appointment: Laura Dorene [facility]el[phone] (15 min) Moderate 11/28/2016 Patient [...] 01/26/2015 Referral: Edgard Rivera MD WPtel: [facility] [address] [facility] [facility] App[facility]ment Requested Instructions Comment . Hypertension [...] AND POTASSIUM TO TWICE DAILY [facility] -[facility]OUND CARE . Cellulitis-left leg-continue levaquin Edema-increase lasix/potassium-consult [facility] for unna boots/dressing changes WRAP LEGS-THIGHS [...] YEAR SHINGLES VACCINATION TO BE ADMINISTERED AT [facility] RECOMMEND OBTAINING MEDICAL POWER OF ENTERTAINMENT DIRECTOR AND LIVING WILL PATIENT DOES NOT HAVE [...] YEAR SHINGLES VACCINATION TO BE ADMINISTERED AT [facility] RECOMMEND OBTAINING MEDICAL POWER OF ENTERTAINMENT DIRECTOR AND LIVING WILL PATIENT DOES NOT HAVE [...] YEAR SHINGLES VACCINATION TO BE ADMINISTERED AT [facility] RECOMMEND OBTAINING MEDICAL POWER OF ENTERTAINMENT DIRECTOR AND LIVING WILL PATIENT DOES NOT HAVE [...] Dr Moreno WOUND CARE APPT ANTIBIOTIC TO [facility] . Cellulitis - start oral [...] allow for greater blood glucose control. . Orycrqsobd-dnvlpncdb-kfvoino to finish abx-no further treatment indicated Edema-significantly [...]
--- OUTSIDE RECORDS SUMMARY | 2018-11-26 12:00 | XMS REPORT | CCD ---
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 Name Role Phone PP Unavailable CCM Unavailable Summary Purpose Interface Exchange Insurance Providers Payer name Policy type / Coverage type Covered constitution party ID Effective Begin Date Effective End Date WPS Medicare Part B Medicare Part B [id number] Unknown Unknown Family history Father Diagnosis Age At Onset Stroke Unknown Mother Diagnosis Age At Onset Stroke Unknown Diabetes mellitus Type 2 Unknown Social History Social History Element Codes Description Effective Dates Tobacco history SNOMED CT: 621953642 Currently uses smokeless tobacco Chews 05/04/2016 Marital status Unknown 01/26/2015 Number of children Unknown 3 01/26/2015 Employment Unknown Retired 01/26/[address]: 774332494 Never drinks alcohol quit in July 2014 01/26/2015 Allergies, Adverse Reactions, Alerts Substance Reaction Codes Entered Date Inactivated Date Status * NO KNOWN FOOD ALLERGIES Unknown 01/26/2015 No Inactive Date Active * NO KNOWN DRUG ALLERGIES Unknown 01/26/2015 No Inactive Date Active Past Medical History Illness Codes Condition Status Onset Date Resolved Date Malignant neoplasm of prostate ICD-9: 185 ICD-10: C61 Active 02/25/2018 Unknown Generalized abdominal pain ICD-9: 789.07 ICD-10: [...] ICD-9: V76.44 ICD-10: Z12.5 Active 02/05/2018 Unknown Essential (primary) hypertension ICD-9: 401.1 ICD-10: I10 Active 11/08/2017 Unknown Other specified hypothyroidism ICD-9: 244.9 ICD-10: E03.8 Active 01/25/2015 Unknown Type 2 diabetes mellitus with hyperglycemia ICD-9: 250.00 ICD-10: E11.65 Active 12/06/2016 Unknown Encounter for general adult medical examination [...] Problems Condition Codes Effective Dates Condition Status Malignant neoplasm of prostate ICD-9: 185 ICD-10: C61 02/25/2018 Active Generalized abdominal pain ICD-9: 789.07 ICD-10: [...] prostate ICD-9: V76.44 ICD-10: Z12.5 02/05/2018 Active Essential (primary) hypertension ICD-9: 401.1 ICD-10: I10 11/08/2017 Active Other specified hypothyroidism ICD-9: 244.9 ICD-10: E03.8 01/25/2015 Active Type 2 diabetes mellitus with hyperglycemia ICD-9: 250.00 ICD-10: E11.65 12/06/2016 Active Encounter for general adult medical examination [...] Fill Instructions oxycodone 20 mg tablet RxNorm: 4247805 1/2 Tablet(s) PO Q6 as needed 08/15/2018 09/13/2018 Active oxycodone 20 mg tablet RxNorm: 6894167 1/2 Tablet(s) PO Q6 as needed 07/16/2018 08/14/2018 Inactive oxycodone 20 mg tablet RxNorm: 0039497 1/2 Tablet(s) PO Q6 as needed 06/14/2018 07/13/2018 Inactive gabapentin 100 mg capsule RxNorm: 981742 TAKE ONE CAPSULE BY MOUTH IN THE EVENING AT 5PM 05/30/2018 09/26/2018 Active oxycodone 20 mg tablet RxNorm: 6713271 1/2 Tablet(s) PO Q6 as needed 05/15/2018 06/13/2018 Inactive oxycodone 20 mg tablet RxNorm: 9966251 1/2 Tablet(s) PO Q6 as needed 04/12/2018 05/11/2018 Inactive oxycodone 20 mg tablet RxNorm: 6556554 1/2 Tablet(s) PO Q6 as needed 03/11/2018 04/09/2018 Inactive levothyroxine 200 mcg tablet RxNorm: 720393 1 Tablet(s) PO daily 02/21/2018 02/15/2019 Active Cipro 500 mg tablet RxNorm: 801779 1 Tablet(s) PO BID 201702/20/2018 Inactive levothyroxine 200 mcg tablet RxNorm: 500244 1 Tablet(s) PO daily 02/21/2018 02/20/2018 Inactive Cipro 500 mg tablet RxNorm: 819249 1 Tablet(s) PO BID 201703/02/2018 Inactive oxycodone 20 mg tablet RxNorm: 2364662 1/2 Tablet(s) PO Q6 as needed 02/12/2018 03/10/2018 Inactive oxycodone 20 mg tablet RxNorm: 7928020 1/2 Tablet(s) PO Q6 as needed 01/16/2018 02/11/2018 Inactive gabapentin 100 mg capsule RxNorm: 521705 TAKE ONE CAPSULE BY MOUTH IN THE EVENING AT 5PM 01/15/2018 05/29/2018 Inactive bisoprolol 5 mg-hydrochlorothiazide 6.25 mg tablet RxNorm: 608720 TAKE ONE TABLET BY MOUTH DAILY 01/01/2018 12/26/2018 Active oxycodone 20 mg tablet RxNorm: 4414163 1/2 Tablet(s) PO Q6 as needed 12/20/2017 01/14/2018 Inactive oxycodone 20 mg tablet RxNorm: 3361347 1/2 Tablet(s) PO Q6 as needed 11/20/2017 12/19/2017 Inactive Victoza 2-Dino 0.6 mg/0.1 mL (18 mg/3 mL) subcutaneous pen injector RxNorm: 255787 1.2 Milligram(s) SQ daily 11/08/201712/07 Inactive oxycodone 20 mg tablet RxNorm: 2963235 1/2 Tablet(s) PO Q6 as needed 10/19/2017 11/17/2017 Inactive Lasix 20 mg tablet RxNorm: 010292 1 Tablet(s) QAM at 5pm 12/201703/18/2018 Inactive gabapentin 100 mg capsule RxNorm: 596591 1 Capsule(s) PO QPM at 5 pm 09/20/2017 01/14/2018 Inactive oxycodone 20 mg tablet RxNorm: 3398488 1/2 Tablet(s) PO Q6 as needed 09/18/2017 10/17/2017 Inactive oxycodone 20 mg tablet RxNorm: 9858091 1/2 Tablet(s) PO Q6 as needed 08/14/2017 09/12/2017 Inactive ketoconazole 2 % topical cream RxNorm: 375208 1 Gram(s) TOP BID to affected area until healed 08/03/2017 No Stop Date Active oxycodone 20 mg tablet RxNorm: 9116225 1/2 Tablet(s) PO Q6 as needed 07/17/2017 08/13/2017 Inactive pen needle, diabetic 31 gauge x 5/16" RxNorm: 1 Unit Dose Miscellaneous daily 06/25/2017 03/21/2018 Inactive daily use with victoza Bactrim DS 800 mg-160 mg tablet RxNorm: 870298 1 Tablet(s) PO BID Dr Norwood 06/25/2017 07/04/2017 Inactive Victoza 2-Dino 0.6 mg/0.1 mL (18 mg/3 mL) subcutaneous pen injector RxNorm: 325549 0.6 Milligram(s) SQ daily 06/25/201707/24 Inactive doxycycline hyclate 100 mg tablet RxNorm: 762424 1 Tablet(s) PO BID Dr Norwood 06/21/2017 06/30/2017 Inactive oxycodone 20 mg tablet RxNorm: 1549312 1/2 Tablet(s) PO Q6 as needed 06/14/2017 07/13/2017 Inactive clindamycin 150 mg capsule RxNorm: 124320 1 Capsule(s) PO Q8 06/16/2017 Inactive levothyroxine 175 mcg tablet RxNorm: 235940 TAKE ONE TABLET BY MOUTH DAILY 06/04/2017 09/01/2017 Inactive levothyroxine 175 mcg tablet RxNorm: 188045 TAKE ONE TABLET BY MOUTH DAILY 06/04/2017 11/30/2017 Inactive bisoprolol 5 mg-hydrochlorothiazide 6.25 mg tablet RxNorm: 080761 TAKE ONE TABLET BY MOUTH DAILY 05/24/2017 11/19/2017 Inactive oxycodone 20 mg tablet RxNorm: 5344895 1/2 Tablet(s) PO Q6 as needed 05/14/2017 06/12/2017 Inactive potassium chloride ER 10 mEq capsule,extended release RxNorm: 780789 TAKE ONE CAPSULE BY MOUTH DAILY NEEDED FOR 5 DAYS THEN NEEDED WITH LASIX 04/17/2017 10/13/2017 Inactive Lasix 20 mg tablet RxNorm: 934618 TAKE ONE TABLET BY MOUTH DAILY NEEDED 04/17/2017 09/19/2017 Inactive oxycodone 20 mg tablet RxNorm: 9546208 1/2 Tablet(s) PO Q6 as needed 04/12/2017 05/11/2017 Inactive Colcrys 0.6 mg tablet RxNorm: 552561 2 tabs at onset then may repeat 1 tab in 1 hours if needed- Tablet(s) PO 04/09/2017 No Stop Date Active then take daily until gout resolved Bactrim DS 800 mg-160 mg tablet RxNorm: 800561 1 Tablet(s) PO BID 04/09/2017 04/08/2017 Inactive dc levaquin Bactrim DS 800 mg-160 mg tablet RxNorm: 208125 1 Tablet(s) PO BID 04/09/2017 04/15/2017 Inactive dc levaquin Levaquin 500 mg tablet RxNorm: 651869 1 Tablet(s) PO daily 04/02/2017 Inactive Levaquin 500 mg tablet RxNorm: 897930 1 Tablet(s) PO daily 06/06/2017 Inactive indomethacin 25 mg capsule RxNorm: 782871 1 Capsule(s) PO TID PRN 03/22/2017 03/22/2017 Inactive Lasix 20 mg tablet RxNorm: 662963 1 Tablet(s) PO QDAY PRN 02/201704/16/2017 Inactive daily x 5 days then as needed Levaquin 500 mg tablet RxNorm: 690425 1 Tablet(s) PO daily 02/201703/31/2017 Inactive potassium chloride ER 10 mEq capsule,extended release RxNorm: 506558 1 Capsule(s) PO QDAY PRN 03/22/2017 04/16/2017 Inactive daily x 5 days then as needed with lasix oxycodone 20 mg tablet RxNorm: 4710869 1/2 Tablet(s) PO Q6 as needed 03/08/2017 04/06/2017 Inactive bisoprolol 5 mg-hydrochlorothiazide 6.25 mg tablet RxNorm: 327865 TAKE ONE TABLET BY MOUTH DAILY 02/14/2017 05/14/2017 Inactive oxycodone 20 mg tablet RxNorm: 9744702 1/2 Tablet(s) PO Q6 as needed 02/08/2017 03/07/2017 Inactive oxycodone 20 mg tablet RxNorm: 6207847 1/2 Tablet(s) PO Q6 as needed 01/08/2017 02/06/2017 Inactive levothyroxine 175 mcg tablet RxNorm: 157591 1 Tablet(s) PO daily 12/06/2016 06/03/2017 Inactive [SAVINGS FOR NON-COVERED DRUGS -- BIN:[id number], PCN: ASPROD1, Group: XXXXX, ID# XXXXXXX, Questions: . THIS IS NOT INSURANCE.] oxycodone 20 mg tablet RxNorm: 1435721 1/2 Tablet(s) PO Q6 as needed 12/04/2016 01/02/2017 Inactive oxycodone 20 mg tablet RxNorm: 0004673 1/2 Tablet(s) PO Q6 as needed 11/09/2016 12/03/2016 Inactive bisoprolol 5 mg-hydrochlorothiazide 6.25 mg tablet RxNorm: 895182 TAKE ONE TABLET BY MOUTH DAILY 11/08/2016 02/05/2017 Inactive oxycodone 20 mg tablet RxNorm: 6518117 1/2 Tablet(s) PO Q6 as needed 10/05/2016 11/03/2016 Inactive oxycodone 20 mg tablet RxNorm: 8757247 1/2 Tablet(s) PO Q6 as needed 09/06/2016 10/04/2016 Inactive oxycodone 20 mg tablet RxNorm: 9352070 1/2 Tablet(s) PO Q6 as needed 08/07/2016 09/05/2016 Inactive oxycodone 20 mg tablet RxNorm: 1446016 1/2 Tablet(s) PO Q6 as needed 07/04/2016 08/06/2016 Inactive oxycodone 20 mg tablet RxNorm: 3053895 1/2 Tablet(s) PO Q6 as needed 05/29/2016 07/03/2016 Inactive levothyroxine 150 mcg tablet RxNorm: 253769 1 Tablet(s) PO daily 04/10/2016 04/09/2016 Inactive [SAVINGS FOR NON-COVERED DRUGS -- BIN:[id number], PCN: ASPROD1, Group: XXXXX, ID# XXXXXXX, Questions: . THIS IS NOT INSURANCE.] oxycodone 20 mg tablet RxNorm: 4786422 1/2 Tablet(s) PO Q6 as needed 04/10/2016 05/28/2016 Inactive levothyroxine 150 mcg tablet RxNorm: 404757 1 Tablet(s) PO daily 04/10/2016 10/06/2016 Inactive [SAVINGS FOR NON-COVERED DRUGS -- BIN:[id number], PCN: ASPROD1, Group: XXXXX, ID# XXXXXXX, Questions: . THIS IS NOT INSURANCE.] bisoprolol 5 mg-hydrochlorothiazide 6.25 mg tablet RxNorm: 040214 1 Tablet(s) PO daily 02/16/2016 12/31/2017 Inactive oxycodone 20 mg tablet RxNorm: 7424599 1/2 Tablet(s) PO Q6 as needed 02/16/2016 04/09/2016 Inactive oxycodone 20 mg tablet RxNorm: 6008109 1/2 Tablet(s) PO Q6 as needed 01/04/2016 02/15/2016 Inactive bisoprolol 5 mg-hydrochlorothiazide 6.25 mg tablet RxNorm: 527905 1 Tablet(s) PO daily 11/19/2015 01/17/2016 Inactive bisoprolol 5 mg-hydrochlorothiazide 6.25 mg tablet RxNorm: 268926 1 Tablet(s) PO daily 11/04/2015 11/18/2015 Inactive oxycodone 20 mg tablet RxNorm: 4093591 1/2 Tablet(s) PO Q6 as needed 10/27/2015 01/03/2016 Inactive levothyroxine 150 mcg tablet RxNorm: 422081 1 Tablet(s) PO daily 08/26/2015 02/21/2016 Inactive [SAVINGS FOR NON-COVERED DRUGS -- BIN:[id number], PCN: ASPROD1, Group: XXXXX, ID# XXXXXXX, Questions: . THIS IS NOT INSURANCE.] bisoprolol 5 mg-hydrochlorothiazide 6.25 mg tablet RxNorm: 209464 1 Tablet(s) PO daily 08/26/2015 10/24/2015 Inactive oxycodone 10 mg tablet RxNorm: 0413744 1 Tablet(s) PO Q6 as needed 05/06/2015 10/26/2015 Inactive levothyroxine 150 mcg tablet RxNorm: 357728 1 Tablet(s) PO daily 02/05/2015 08/03/2015 Inactive [SAVINGS FOR NON-COVERED DRUGS -- BIN:063882, PCN: ASPROD1, Group: XXXXX, ID# XXXXXXX, Questions: . THIS IS NOT INSURANCE.] Vitamin D2 50,000 unit capsule RxNorm: 385984 1 Capsule(s) PO weekly 02/05/2015 05/05/2015 Inactive [SAVINGS FOR NON-COVERED DRUGS -- BIN:370408, PCN: ASPROD1, Group: XXXXX, ID# XXXXXXX, Questions: . THIS IS NOT INSURANCE.] Vitamin D2 50,000 unit capsule RxNorm: 000794 1 Capsule(s) PO weekly 02/05/2015 02/04/2015 Inactive bisoprolol 5 mg-hydrochlorothiazide 6.25 mg tablet RxNorm: 589550 1 Tablet(s) PO daily 01/26/2015 02/24/2015 Inactive levothyroxine 200 mcg tablet RxNorm: 362941 1 Tablet(s) PO daily 01/26/2015 01/25/2015 Inactive levothyroxine 200 mcg tablet RxNorm: 813347 1 Tablet(s) PO every other day 01/26/2015 02/04/2015 Inactive [SAVINGS FOR NON-COVERED DRUGS -- BIN:946596, PCN: ASPROD1, Group: XXXXX, ID# XXXXXXX, Questions: . THIS IS NOT INSURANCE.] aspirin 81 mg chewable tablet RxNorm: 837573 1 Tablet(s) PO daily No Start Date Active Plavix 75 mg tablet RxNorm: 532923 1 Tablet(s) PO daily manage by Dr Baig No Start Date Active simvastatin 40 mg tablet RxNorm: 657037 1 Tablet(s) PO QHS managed by Dr Baig No Start Date Active Colcrys 0.6 mg tablet RxNorm: 529835 2 tabs at onset then may repeat 1 tab in 1 hours if needed- Tablet(s) PO No Start Date 04/08/2017 Inactive then take daily until gout resolved aspirin 325 mg tablet RxNorm: 360238 1 Tablet(s) PO daily No Start Date 05/03/2016 Inactive levothyroxine 75 mcg tablet RxNorm: 687618 1 Tablet(s) PO every other day No Start Date 02/04/2015 Inactive takes qod with 200mcg oxycodone 10 mg tablet RxNorm: 5795108 1 Tablet(s) PO Q6 as needed No Start Date 05/05/2015 Inactive ketoconazole 2 % topical cream RxNorm: 296189 1 Gram(s) TOP BID to affected area until healed No Start Date 08/02/2017 Inactive indomethacin oral RxNorm: 5781 oral No Start Date 03/21/2017 Inactive Medication Administered No Medication Administered data Immunizations Vaccine Codes Date Status Pneumococcal (Adult) CVX: 33 02/05/2018 completed Pneumococcal (Adult) CVX: 133 11/30/2016 completed Assessments Condition Codes Effective Dates Malignant neoplasm of prostate ICD-10: C61 ICD-9: 185 02/25/2018 Generalized abdominal pain ICD-10: R10.84 ICD-9: 789.07 02/20/2018 Gross hematuria ICD-10: R31.0 ICD-9: 599.71 02/20/2018 Unspecified jaundice ICD-10: R17 ICD-9: 782.4 02/20/2018 Encounter for screening for malignant neoplasm of prostate ICD-10: Z12.5 ICD-9: V76.44 02/05/2018 Chronic pain syndrome ICD-10: G89.4 ICD-9: 338.4 02/05/2018 Type 2 diabetes mellitus with hyperglycemia ICD-10: E11.65 ICD-9: 250.00 02/05/2018 Other specified hypothyroidism ICD-10: E03.8 ICD-9: 244.9 02/05/2018 Essential (primary) hypertension ICD-10: I10 ICD-9: 401.1 02/05/2018 Chronic kidney disease, stage 3 (moderate) [...] Visit Reason For Visit Effective Dates Notes abdominal pain 02/25/2018 abdominal pain 02/20/2018 diabetes [...] Item Item Code Result Date Culture Urine [id number] URINE CULTURE SEE NOTES 02/22/2018 Urine Culture [...] 24.5 pg 02/20/2018 Cbc With Differential Ord2 [place]% 8.9 % 02/20/2018 Cbc With Differential Ord2 [...] 0.81 K/ul 02/20/2018 Cbc With Differential Ord2 [place] ABS# 0.7 K/ul 02/20/2018 Cbc With Differential Ord2 Eos ABS# 0.4 K/ul 02/20/2018 Cbc With Differential Ord2 Baso ABS# 0.0 K/ul 02/20/2018 %Hba1C Evy860 % HbA1c 83017-2 7.7 % 02/20/2018 %Hba1C Oii531 Gluc Ave 174 mg/dL 02/20/2018 Lipase Zko073 LIPASE 17 U/L 02/20/2018 Microalbumin Lee457 MicroAlb 6.5 mg/dL 02/20/2018 Amylase Ord34 AMYLASE 15 U/L 02/20/2018 Free T4 Yag170 FREE T4 0.61 ng/dL 02/20/2018 Lipid Ord30 CHOL 203 mg/dL 02/20/2018 Lipid Ord30 HDL 7.0 mg/dl 02/20/2018 Lipid Ord30 TRIG 271 mg/dL 02/20/2018 Lipid Ord30 LDL 142 mg/dL 02/20/2018 Lipid Ord30 C/HDL 29.0 Ratio 02/20/2018 Comp Metabolic Tik015 NA 134 mEq/L 02/20/2018 Comp Metabolic Bof946 K 3.6 mEq/L 02/20/2018 Comp Metabolic Lxd739 CL 96 mEq/L 02/20/2018 Comp Metabolic Ums202 CO2 29.0 mEq/L 02/20/2018 Comp Metabolic Lld286 ANION GAP 13 02/20/2018 Comp Metabolic Kdw600 GLUCOSE 165 mg/dL 02/20/2018 Comp Metabolic Pcy578 Creat 1.2 mg/dL 02/20/2018 Comp Metabolic Fhn549 eGFR 63 ml/min/1.73m2 02/20/2018 Comp Metabolic Tmx767 BUN 14 mg/dL 02/20/2018 Comp Metabolic Ztj347 B/C Ratio 11.6 Ratio 02/20/2018 Comp Metabolic Wgt875 CALCIUM 8.5 mg/dL 02/20/2018 Comp Metabolic Rhe389 ALK PHOS 633 U/L 02/20/2018 Comp Metabolic Czw048 AST(SGOT) 112 U/L 02/20/2018 Comp Metabolic Mou910 ALT(SGPT) 148 U/L 02/20/2018 Comp Metabolic Cck615 BILI T 6.8 mg/dL 02/20/2018 Comp Metabolic Nhc086 ALBUMIN 3.3 g/dL 02/20/2018 Comp Metabolic Zox438 TPRO 5.9 g/dL 02/20/2018 Comp Metabolic Cgs171 GLOB 2.6 g/dL 02/20/2018 Comp Metabolic Prx012 A/G Ratio 1.3 Ratio 02/20/2018 Comp Metabolic Nhu315 Osmo 272 mOsmo 02/20/2018 Total Psa Ord10 [...] Metabolic Ord15 CALCIUM 9.2 mg/dL 11/09/2017 %Hba1C Mhv568 % HbA1c 68990-5 8.0 % 11/09/2017 %Hba1C Njy086 Gluc Ave 183 mg/dL 11/09/2017 Metabolic Ord15 [...] Ord15 CALCIUM 8.7 mg/dL 06/25/2017 Culture Wound [id number] WOUND CULTURE SEE NOTES 04/09/2017 Culture Wound [id number] Continued Results 04/09/2017 Amylase Ord34 AMYLASE 19 [...] 27.9 pg 03/22/2017 Cbc With Differential Ord2 [place]% 8.3 % 03/22/2017 Cbc With Differential Ord2 [...] 1.35 K/ul 03/22/2017 Cbc With Differential Ord2 [place] ABS# 1.4 K/ul 03/22/2017 Cbc With Differential Ord2 Eos ABS# 0.2 K/ul 03/22/2017 Cbc With Differential Ord2 Baso ABS# 0.0 K/ul 03/22/2017 Comp Metabolic Tsj996 NA 134 mEq/L 03/22/2017 Comp Metabolic Bcy867 K 4.5 mEq/L 03/22/2017 Comp Metabolic Zjd108 CL 93 mEq/L 03/22/2017 Comp Metabolic Upy238 CO2 31.0 mEq/L 03/22/2017 Comp Metabolic Qch155 ANION GAP 15 03/22/2017 Comp Metabolic Ghc740 GLUCOSE 198 mg/dL 03/22/2017 Comp Metabolic Mus712 Creat 1.5 mg/dL 03/22/2017 Comp Metabolic Hnj021 eGFR 50 ml/min/1.73m2 03/22/2017 Comp Metabolic Div645 BUN 32 mg/dL 03/22/2017 Comp Metabolic Bfw398 B/C Ratio 21.6 Ratio 03/22/2017 Comp Metabolic Kvt326 CALCIUM 8.4 mg/dL 03/22/2017 Comp Metabolic Hqg621 ALK PHOS 245 U/L 03/22/2017 Comp Metabolic Rux981 AST(SGOT) 18 U/L 03/22/2017 Comp Metabolic Tig135 ALT(SGPT) 17 U/L 03/22/2017 Comp Metabolic Dvp585 BILI T 0.8 mg/dL 03/22/2017 Comp Metabolic Mdl433 ALBUMIN 2.9 g/dL 03/22/2017 Comp Metabolic Mgd147 TPRO 6.3 g/dL 03/22/2017 Comp Metabolic Eae493 GLOB 3.4 g/dL 03/22/2017 Comp Metabolic Exx827 A/G Ratio 0.8 Ratio 03/22/2017 Comp Metabolic Uxi942 Osmo 281 mOsmo 03/22/2017 Lipase Wqz699 LIPASE 12 U/L 03/22/2017 Comp Metabolic Esa008 NA 142 mEq/L 03/09/2017 Comp Metabolic Fkb939 K 4.8 mEq/L 03/09/2017 Comp Metabolic Wvq914 CL 103 mEq/L 03/09/2017 Comp Metabolic Fpb618 CO2 30.0 mEq/L 03/09/2017 Comp Metabolic Qjs051 ANION GAP 14 03/09/2017 Comp Metabolic Hez092 GLUCOSE 152 mg/dL 03/09/2017 Comp Metabolic Gse379 Creat 1.3 mg/dL 03/09/2017 Comp Metabolic Dwo182 eGFR 56 ml/min/1.73m2 03/09/2017 Comp Metabolic Sir233 BUN 23 mg/dL 03/09/2017 Comp Metabolic Fuu463 B/C Ratio 17.3 Ratio 03/09/2017 Comp Metabolic Qen216 CALCIUM 8.5 mg/dL 03/09/2017 Comp Metabolic Mkg570 ALK PHOS 97 U/L 03/09/2017 Comp Metabolic Vtq755 AST(SGOT) 10 U/L 03/09/2017 Comp Metabolic Txp493 ALT(SGPT) 6 U/L 03/09/2017 Comp Metabolic Pup253 BILI T 0.4 mg/dL 03/09/2017 Comp Metabolic Brg193 ALBUMIN 3.4 g/dL 03/09/2017 Comp Metabolic Gva403 TPRO 6.2 g/dL 03/09/2017 Comp Metabolic Myt933 GLOB 2.8 g/dL 03/09/2017 Comp Metabolic Cjk332 A/G Ratio 1.2 Ratio 03/09/2017 Comp Metabolic Tjk550 Osmo 290 mOsmo 03/09/2017 Free T4 Dqr588 FREE T4 0.86 ng/dL 03/08/2017 Cbc With [...] 28.2 pg 03/08/2017 Cbc With Differential Ord2 [place]% 8.7 % 03/08/2017 Cbc With Differential Ord2 [...] 1.63 K/ul 03/08/2017 Cbc With Differential Ord2 [place] ABS# 0.9 K/ul 03/08/2017 Cbc With Differential Ord2 Eos ABS# 0.5 K/ul 03/08/2017 Cbc With Differential Ord2 Baso ABS# 0.0 K/ul 03/08/2017 Tsh Ord6 hTSH II 4.52 uIU/mL 03/08/2017 %Hba1C Gax449 % HbA1c 95134-9 8.5 % 03/08/2017 %Hba1C Lvg679 Gluc Ave 197 mg/dL 03/08/2017 %Hba1C Che144 % HbA1c 80753-8 9.8 % 12/04/2016 %Hba1C Eqe899 Gluc Ave 235 mg/dL 12/04/2016 Tsh Ord6 hTSH II 10.65 uIU/mL 11/30/2016 Comp Metabolic Bak372 NA 134 mEq/L 11/30/2016 Comp Metabolic Zdl997 K 5.0 mEq/L 11/30/2016 Comp Metabolic Xdl963 CL 95 mEq/L 11/30/2016 Comp Metabolic Jmf545 CO2 34.0 mEq/L 11/30/2016 Comp Metabolic Xkj110 ANION GAP 10 11/30/2016 Comp Metabolic Xfd038 GLUCOSE 226 mg/dL 11/30/2016 Comp Metabolic Tcs104 Creat 1.3 mg/dL 11/30/2016 Comp Metabolic Bcw303 eGFR 56 ml/min/1.73m2 11/30/2016 Comp Metabolic Hbj628 BUN 21 mg/dL 11/30/2016 Comp Metabolic Qgq827 B/C Ratio 15.7 Ratio 11/30/2016 Comp Metabolic Oca840 CALCIUM 8.9 mg/dL 11/30/2016 Comp Metabolic Mct994 ALK PHOS 112 U/L 11/30/2016 Comp Metabolic Uub245 AST(SGOT) 9 U/L 11/30/2016 Comp Metabolic Gqt675 ALT(SGPT) 7 U/L 11/30/2016 Comp Metabolic Vpl446 BILI T 0.6 mg/dL 11/30/2016 Comp Metabolic Dpm957 ALBUMIN 3.6 g/dL 11/30/2016 Comp Metabolic Ylu691 TPRO 6.4 g/dL 11/30/2016 Comp Metabolic Yoe598 GLOB 2.9 g/dL 11/30/2016 Comp Metabolic Etz824 A/G Ratio 1.2 Ratio 11/30/2016 Comp Metabolic Waj807 Osmo 278 mOsmo 11/30/2016 Lipid Ord30 CHOL [...] 13.0 % 11/30/2016 Cbc With Differential Ord2 [place]% 7.9 % 11/30/2016 Cbc With Differential Ord2 [...] 1.34 K/ul 11/30/2016 Cbc With Differential Ord2 [place] ABS# 0.8 K/ul 11/30/2016 Cbc With Differential Ord2 Eos ABS# 0.3 K/ul 11/30/2016 Cbc With Differential Ord2 Baso ABS# 0.0 K/ul 11/30/2016 Free T4 Nfk349 FREE T4 0.89 ng/dL 11/30/2016 Review of Systems System Result Effective Dates Constitutional recent illness 02/25/2018 Constitutional anorexia 02/25/2018 [...] clubbing 11/30/2017 None Full Exam - General 1995 Cardiovascular [...] sounds 11/30/2017 None Full Exam - General 1995 Lymphatic [...] Codes Date ADMIN PNEUMOCOCCAL VACCINE SNOMED CT: 64316003 CPT-4: G0009 02/05/2018 Pneumococcal Polysaccharide Vaccine, 23-Valent, Ad CPT-4: 34119 02/05/2018 PPPS, SUBSEQ VISIT CPT -4: G0439 11/30/2017 URINALYSIS NONAUTO W/O SCOPE CPT-4: 12763 03/22/2017 URINALYSIS NONAUTO W/O SCOPE CPT-4: 10731 03/21/2017 PPPS, SUBSEQ VISIT CPT -4: G0439 11/30/2016 PNEUMOCOCCAL VACC 13 JAVIER IM Formatting Model/CDA Sections, Assigned to SNOMED CT: 23765196 CPT-4: 97486Llszaos 11/30/2016 ADMIN PNEUMOCOCCAL VACCINE SNOMED CT: 30930752 CPT-4: G0009 11/30/2016 Vital Signs Date Vital 02/25/2018 Blood Pressure 1: 120/70 Code : 8480-6 BMI: 37.0 Code : 70668-0 Heart Rate 1 : 51 bpm Height: 5'10" SpO2: 97% Weight: 258 lbs 02/20/2018 Blood Pressure 1: 124/70 Code : 8480-6 BMI: 38.0 Code : 88535-2 Heart Rate 1 : 60 bpm Height: 5'10" SpO2: 96% Weight: 265 lbs 02/05/2018 Blood Pressure 1: 116/ Code : 8480-6 BMI: 38.0 Code : 23251-8 Heart Rate 1 : 63 bpm Height: 5'10" SpO2: 98% Weight: 265 lbs 11/30/2017 Blood Pressure 1: 132/60 Code : 8480-6 BMI: 37.0 Code : 85310-1 Heart Rate 1 : 100 bpm Height: 5'10 " SpO2: 96% Waist Measure (cm): 122 cm Weight: 258 lbs 11/08/2017 Blood Pressure 1: 126/64 Code : 8480-6 BMI: 37.2 Code : 88740-8 Heart Rate 1 : 92 bpm Height: 5'10" SpO2: 94% Weight: 259 lbs 09/20/2017 Blood Pressure 1: 12268 Code : 8480-6 BMI: 36.9 Code : 53824-2 Heart Rate 1 : 57 bpm Height: 5'10" SpO2: 96% Weight: 257 lbs 06/25/2017 Blood Pressure 1: 124/68 Code : 8480-6 BMI: 37.0 Code : 33871-7 Height: 5'10 " Weight: 258 lbs 06/07/2017 Blood Pressure 1: 122/64 Code : 8480-6 BMI: 37.0 Code : 03137-1 Heart Rate 1 : 60 bpm Height: 5'10" SpO2: 94% Temperature: 36.4 (C) / 97.6 (F) Weight: 258 lbs 05/03/2017 Blood Pressure 1: 118/74 Code : 8480-6 BMI: 38.2 Code : 67315-8 Heart Rate 1 : 52 bpm Height: 5'10" SpO2: 98% Weight: 266 lbs 04/02/2017 Blood Pressure 1: 118/62 Code : 8480-6 BMI: 38.2 Code : 90522-2 Heart Rate 1 : 53 bpm Height: 5'10" SpO2: 93% Weight: 266 lbs 03/26/2017 Blood Pressure 1: 114/62 Code : 8480-6 BMI: 38.3 Code : 46850-8 Height: 5'10 " Weight: 267 lbs 03/22/2017 Blood Pressure 1: 122/64 Code : 8480-6 BMI: 40.0 Code : 01991-3 Heart Rate 1 : 52 bpm Height: 5'10" SpO2: 94% Weight: 279 lbs 03/08/2017 Blood Pressure 1: 124/70 Code : 8480-6 BMI: 39.4 Code : 12826-5 Heart Rate 1 : 51 bpm Height: 5'10" SpO2: 94% Weight: 274 lbs 8 oz 12/06/2016 Blood Pressure 1: 126/62 Code : 8480-6 BMI: 40.3 Code : 26861-6 Heart Rate 1 : 50 bpm Height: 5'10" SpO2: 94% Weight: 281 lbs 11/30/2016 Blood Pressure 1: 112/62 Code : 8480-6 BMI: 40.3 Code : 15651-2 Heart Rate 1 : 52 bpm Height: 5'10" SpO2: 93% Waist Measure (cm): 135 cm Weight: 281 lbs 11/28/2016 Blood Pressure 1: 132/72 Code : 8480-6 BMI: 40.3 Code : 72012-7 Heart Rate 1 : 50 bpm Height: 5'10" Weight: 281 lbs 05/04/2016 Blood Pressure 1: 128/78 Code : 8480-6 BMI: 38.5 Code : 28671-7 Heart Rate 1 : 74 bpm Height: 5'10" SpO2: 98% Weight: 268 lbs 8 oz 11/04/2015 Blood Pressure 1: 136/60 Code : 8480-6 BMI: 38.0 Code : 82311-2 Heart Rate 1 : 55 bpm Height: 5'10" SpO2: 94% Weight: 265 lbs 07/30/2015 Blood Pressure 1: 128/74 Code : 8480-6 BMI: 38.0 Code : 35872-7 Heart Rate 1 : 47 bpm Height: 5'10" SpO2: 97% Weight: 265 lbs 01/26/2015 Blood Pressure 1: 122/64 Code : 8480-6 BMI: 34.0 Code : 79604-8 Heart Rate 1 : 68 bpm Height: 5'10" Weight: 237 lbs Functional Status No Functional Status data History of Present Illness Symptom Name Status Result Effective Date Notes abdominal pain Location in the epigastric area [...] data Encounters Encounter Performer Location Codes Date ([id number]) [id number] EST. PATIENT, LEVEL IV Diagnosis: Malignant neoplasm of prostate[ICD10: C61] Dorene Sanchez MD, [facility] CPT-4: 30203 02/25/2018 [id number] EST. PATIENT, LEVEL IV Diagnosis: Generalized abdominal pain[ICD10: R10.84] Diagnosis: Unspecified jaundice[ICD10: R17] Diagnosis: Gross hematuria[ICD10: R31.0] Kiki Sanchez MD, [facility] CPT-4 : 39150 02/20/2018 [id number]) 12947 EST. PATIENT, LEVEL IV Diagnosis: Type 2 diabetes mellitus with hyperglycemia[ICD10: E11.65] Diagnosis: Essential (primary) hypertension[ICD10: I10] Diagnosis: Chronic kidney disease, stage 3 (moderate)[ICD10: N18.3] Diagnosis: Chronic pain syndrome[ICD10: G89.4] Diagnosis: Other specified hypothyroidism[ICD10: E03.8] Diagnosis: Encounter for screening for malignant neoplasm of prostate[ICD10: Z12.5] Diagnosis: Encounter for immunization[ICD10: Z23] Sarah Sanchez MD, [facility] CPT-4: 18361 02/05/2018 ([id number]) 82656 EST. PATIENT, LEVEL IV Diagnosis: Type 2 diabetes mellitus with hyperglycemia[ICD10: E11.65] Diagnosis: Essential (primary) hypertension[ICD10: I10] Dorene Sanchez MD, [facility] CPT-4: 48463 11/08/2017 ([id number]) 97944 EST. PATIENT, LEVEL IV Diagnosis: Type 2 diabetes mellitus with hyperglycemia[ICD10: E11.65] Diagnosis: Chronic pain syndrome[ICD10: G89.4] Diagnosis: Essential (primary) hypertension[ICD10: I10] Diagnosis: Chronic kidney disease, stage 3 (moderate)[ICD10: N18.3] Diagnosis: Localized edema[ICD10: R60.0] Dorene Sanchez MD, [facility] CPT- 4: 13142 09/20/2017 ([id number]) 59829 EST. PATIENT, LEVEL III Diagnosis: Type 2 diabetes mellitus with hyperglycemia[ICD10: E11.65] Sarah Sanchez MD, [facility] CPT-4: 23015 06/25/2017 ([id number]) 05784 EST. PATIENT, LEVEL III Diagnosis: Cellulitis of left lower limb[ICD10: L03.116] Sarah Sanchez MD, [facility] CPT-4: 53378 06/07/2017 ([id number]) 46686 EST. PATIENT, LEVEL III Diagnosis: Localized edema[ICD10: R60.0] Diagnosis: Type 2 diabetes mellitus with foot ulcer[ICD10: E11.621] Sarah Sanchez MD , [facility] CPT-4: 70139 05/03/2017 ([id number]) 10478 EST. PATIENT, LEVEL III Diagnosis: Cellulitis of left lower limb[ICD10: L03.116] Diagnosis: Localized edema[ICD10: R60.0] Sarah Sanchez MD, [facility] CPT-4: 63883 04/02/2017 ([id number]) Miscellaneous no charge Diagnosis: Localized edema[ICD10: R60.0] Diagnosis: Cellulitis of left lower limb[ICD10: L03.116] Sarah Sanchez MD, [facility] CPT-4: 48605 03/26/2017 ([id number]) 91047 EST. 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 PATIENT, LEVEL IV Diagnosis: Type 2 diabetes mellitus with hyperglycemia[ICD10: E11.65] Diagnosis: Other specified hypothyroidism[ICD10: E03.8] Diagnosis: Essential (primary) hypertension[ICD10: I10] Sarah Sanchez MD, [facility] CPT-4: 41383 03/08/2017 ([id number]) 56434 EST. PATIENT, LEVEL III Diagnosis: Type 2 diabetes mellitus with hyperglycemia[ICD10: E11.65] Diagnosis: Other specified hypothyroidism[ICD10: E03.8] Sarah Sanchez MD, [facility] CPT-4: 75826 12/06/2016 ([id number]) 71336 EST. PATIENT, LEVEL IV Diagnosis: Essential (primary) hypertension[ICD10: I10] Diagnosis: Chronic kidney disease, stage 3 (moderate)[ICD10: N18.3] Dorene Sanchez MD, [facility] CPT-4: 01773 11/28/2016 ([id number]) 88076 EST. PATIENT, LEVEL IV Diagnosis: Essential (primary) hypertension[ICD10: I10] Diagnosis: Chronic pain syndrome[ICD10: G89.4] Diagnosis: Chronic kidney disease, stage 3 (moderate)[ICD10: N18.3] Diagnosis: Vitamin B12 deficiency anemia due to intrinsic factor deficiency[ ICD10: D51.0] Diagnosis: Other specified hypothyroidism[ICD10: E03.8] Dorene Sanchez MD, [facility] CPT-4: 53095 05/04/2016 [id number] EST. PATIENT, LEVEL III Diagnosis: Chronic pain syndrome[ICD10: G89.4] Diagnosis: Essential (primary) hypertension[ICD10: I10] Diagnosis: Other specified hypothyroidism[ICD10: E03.8] [facility] CPT-4: 20232 11/04/2015 78591 EST. PATIENT, LEVEL III Diagnosis: Chronic pain syndrome[ICD10: G89.4] Diagnosis: Essential (primary) hypertension[ICD10: I10] [facility] CPT-4: 98617 07/30/2015 ([id number]) OFFICE/OUTPATIENT VISIT NEW Diagnosis: ESSENTIAL HYPERTENSION[ICD9: 401.9] Diagnosis: HYPOTHYROIDISM[ICD9: 244.9] Diagnosis: ANEMIA[ICD9: 285.9] Diagnosis: Vitamin B12 deficiency[ICD9: 266.2] Diagnosis: CHRONIC PAIN SYNDROME[ICD9: 338.4] Diagnosis: Chronic renal insufficiency, stage III (moderate)[ICD9: 585.3] Diagnosis: GOUT[ICD9: 274.9] Dorene Sanchez MD, [facility] CPT-4: 99242 01/26/2015 Plan of Care Planned Activity Notes Codes Status Date Referral: Edgard Rivera MD WPtel: Via [address] with Dr. Moreno. Patient informed. Referral info faxed. Completed 02/27/2018 Visit Plan: Recurrent prostate cancer - I have recommended a referral to Dr. Rivera. We discussed the case at length today- he is not interested in extensive treatment, but if possible to extend his quantity and quality of life, he would like to try. 02/25/2018 Appointment: Dorene Sanchez WPtel: [address] [place], [place] [id number] (15 min) Moderate 02/25/2018 Patient Education: Patient Medication Summary Completed 02/25/2018 Care Plan: Referral Order SNOMED-CT : [id number] Pending 02/25/2018 Visit Plan: Intermittent abdominal pain, jaundice, itching - will check labs and treat as indicated - pt is to go to the ER with any acute change in symptoms or any acute concerns. 02/20/2018 Appointment: Kiki Menjivar WPtel: [address] [place], [place] [phone] (30 min) Complex 02/20/2018 Patient Education: Patient [...] of control. 02/05/2018 [facility]ment[phone] (30 min) Complex 02/05/2018 Patient Education: [...] care surrogate. 11/30/2017 Appointment: [facility] [phone] [id number] - Annual Wellness Visit 11/30/2017 Patient Education: [...] to 1.2 11/08/2017 Appointment: [facility] [phone] [phone] (15 min) Moderate 11/08/2017 Patient [...] over-medication. 09/20/2017 Appointment: [facility] [phone] [facility] (15 min) Moderate 09/20/2017 Patient Education: [...] Appointment: Sarah Hernandes WPtel: [phone] (30 min) Complex 06/25/2017 Patient Education: Patient Medication Summary Completed 06/25/2017 Appointment: Sarah Hernandes WPtel: [phone] (30 min) Complex 06/22/2017 Visit Plan: Cellulitis - start oral antibiotics as previously directed, return to clinic as previously directed, call for acute change in symptoms, worsening redness, warmth, discharge. 06/07/2017 Appointment: Sarah Hernandes WPtel: [phone] (30 min) Complex 06/07/2017 Patient Education: Patient Medication Summary Completed 06/07/2017 Patient Education: Obesity Completed 06/07/2017 Appointment: Dorene Sanchez WPtel: [phone] (15 min) Moderate 05/31/2017 Visit Plan: Edema-significantly improved-no changes Ulcer- left lower leg and foot-seeing Dr Norwood at wound care-appt scheduled with Dr Frausto for vascular evaluation 05/03/2017 Appointment: Sarah Hernandes WPtel: [address] [place], [place] [phone] [place] (15 min) Moderate 05/03/2017 Patient Education: Patient Medication Summary Completed 05/03/2017 Patient Education: Obesity Completed 05/03/2017 Visit Plan: Qghcbjvnfs-hyrdcglui-dapdelc to finish abx-no further treatment indicated Edema-significantly improved-no longer weeping- continue unna boots twice weekly with home health 04/02/2017 Appointment: Sarah Hernandes WPtel: [phone] [place] (30 min) Complex 04/02/2017 Patient Education: Patient Medication Summary Completed 04/02/2017 Patient Education: Obesity Completed 04/02/2017 Visit Plan: Cellulitis-left leg-continue levaquin Edema- increase lasix/potassium-consult [facility] for unna boots/dressing changes 03/26/2017 Appointment: Sarah Hernandes WPtel: [address] [place], [place] [phone] [place] (15 min) Moderate 03/26/2017 Patient Education: [...] indomethacin-stop aleve 03/22/2017 Appointment: Sarah Hernandes WPtel: [address] [place] [phone] (15 min) Moderate 03/22/2017 Patient Education: Patient [...] of control. 03/08/2017 Appointment: Sarah Hernandes WPtel: [address] [place] [phone] (30 min) Complex 03/08/2017 Patient Education: Patient [...] surrogate. 11/30/2016 App[facility]ment: [facility] [phone] [phone] [facility] - Annual Wellness Visit 11/30/2016 [...] fluids. 11/28/2016 Appointment: Dorene Sanchez [facility]Ptel[facility] [phone] [phone] (15 min) Moderate 11/28/2016 Patient [...] 01/26/2015 Referral: Edgard Rivera MD WPtel: [address] Referral Appointment Requested Instructions Comment . [...] based on previous levels of control. . Pthdiuyvxf-xrjhgaone-egizzab to finish abx-no further treatment indicated Edema-significantly [...] to allow for greater blood glucose control. PREVNAR 13 TODAY- GIVEN IN OFFICE PREVNAR 23 IN ONE YEAR SHINGLES VACCINATION TO BE ADMINISTERED AT [facility] RECOMMEND OBTAINING MEDICAL POWER OF LOCOMOTIVE MECHANIC APPRENTICE AND LIVING WILL PATIENT DOES NOT HAVE [...] SHINGLES VACCINATION TO BE ADMINISTERED AT [facility] RECOMMEND OBTAINING MEDICAL POWER OF LOCOMOTIVE MECHANIC APPRENTICE AND LIVING WILL PATIENT DOES NOT HAVE [...] CARE . Cellulitis-left leg-continue levaquin Edema-increase lasix/potassium-consult [facility] for unna boots/dressing changes . Recurrent prostate [...] scheduled with Dr Frausto for vascular evaluation Monitor your blood pressure at home and [...] b12 shots. WOUND CARE APPT ANTIBIOTIC TO [facility] . Cellulitis - start oral antibiotics as previously directed, return to clinic as previously directed, call for acute change in symptoms, worsening redness, warmth, discharge. PREVNAR 13 TODAY- GIVEN IN OFFICE PREVNAR 23 IN ONE YEAR SHINGLES VACCINATION TO BE ADMINISTERED AT [facility] RECOMMEND OBTAINING MEDICAL POWER OF LOCOMOTIVE MECHANIC APPRENTICE AND LIVING WILL PATIENT DOES NOT HAVE [...]
--- OUTSIDE RECORDS SUMMARY | 2018-11-26 12:02 | XMS REPORT | CCD ---
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 Name Role Phone PP Unavailable CCM Unavailable Summary Purpose Interface Exchange Insurance Providers Payer name Policy type / Coverage type Covered republican ID Effective Begin Date Effective End Date WPS Medicare Part B Medicare Part B [id number] Unknown Unknown Family history Father Diagnosis Age At Onset Stroke Unknown Mother Diagnosis Age At Onset Stroke Unknown Diabetes mellitus Type 2 Unknown Social History Social History Element Codes Description Effective Dates Tobacco history SNOMED CT: 240568681 Currently uses smokeless tobacco Chews 05/04/2016 Marital status Unknown 01/26/2015 Number of children Unknown 3 01/26/2015 Employment Unknown Retired 01/26/[address]: 852117449 Never drinks alcohol quit in July 2014 [...] Fill Instructions oxycodone 20 mg tablet RxNorm: 0878067 1/2 Tablet(s) PO Q6 as needed 07/16/2018 08/14/2018 Active oxycodone 20 mg tablet RxNorm: 2775029 1/2 Tablet(s) PO Q6 as needed 06/14/2018 07/13/2018 Inactive gabapentin 100 mg capsule RxNorm: 020131 TAKE ONE CAPSULE BY MOUTH IN THE EVENING AT 5PM 05/30/2018 09/26/2018 Active oxycodone 20 mg tablet RxNorm: 0291421 1/2 Tablet(s) PO Q6 as needed 05/15/2018 06/13/2018 Inactive oxycodone 20 mg tablet RxNorm: 5521315 1/2 Tablet(s) PO Q6 as needed 04/12/2018 05/11/2018 Inactive oxycodone 20 mg tablet RxNorm: 7447883 1/2 Tablet(s) PO Q6 as needed 03/11/2018 04/09/2018 Inactive levothyroxine 200 mcg tablet RxNorm: 708079 1 Tablet(s) PO daily 02/21/2018 02/15/2019 Active Cipro 500 mg tablet RxNorm: 376717 1 Tablet(s) PO BID 201702/20/2018 Inactive levothyroxine 200 mcg tablet RxNorm: 995522 1 Tablet(s) PO daily 02/21/2018 02/20/2018 Inactive Cipro 500 mg tablet RxNorm: 339955 1 Tablet(s) PO BID 201703/02/2018 Inactive oxycodone 20 mg tablet RxNorm: 0563536 1/2 Tablet(s) PO Q6 as needed 02/12/2018 03/10/2018 Inactive oxycodone 20 mg tablet RxNorm: 0921179 1/2 Tablet(s) PO Q6 as needed 01/16/2018 02/11/2018 Inactive gabapentin 100 mg capsule RxNorm: 704747 TAKE ONE CAPSULE BY MOUTH IN THE EVENING AT 5PM 01/15/2018 05/29/2018 Inactive bisoprolol 5 mg-hydrochlorothiazide 6.25 mg tablet RxNorm: 680537 TAKE ONE TABLET BY MOUTH DAILY 01/01/2018 12/26/2018 Active oxycodone 20 mg tablet RxNorm: 5121821 1/2 Tablet(s) PO Q6 as needed 12/20/2017 01/14/2018 Inactive oxycodone 20 mg tablet RxNorm: 2267548 1/2 Tablet(s) PO Q6 as needed 11/20/2017 12/19/2017 Inactive Victoza 2-Dino 0.6 mg/0.1 mL (18 mg/3 mL) subcutaneous pen injector RxNorm: 531991 1.2 Milligram(s) SQ daily 11/08/201712/07 Inactive oxycodone 20 mg tablet RxNorm: 5782294 1/2 Tablet(s) PO Q6 as needed 10/19/2017 11/17/2017 Inactive Lasix 20 mg tablet RxNorm: 043474 1 Tablet(s) QAM at 5pm 12/201703/18/2018 Inactive gabapentin 100 mg capsule RxNorm: 894910 1 Capsule(s) PO QPM at 5 pm 09/20/2017 01/14/2018 Inactive oxycodone 20 mg tablet RxNorm: 2306882 1/2 Tablet(s) PO Q6 as needed 09/18/2017 10/17/2017 Inactive oxycodone 20 mg tablet RxNorm: 1781670 1/2 Tablet(s) PO Q6 as needed 08/14/2017 09/12/2017 Inactive ketoconazole 2 % topical cream RxNorm: 938127 1 Gram(s) TOP BID to affected area until healed 08/03/2017 No Stop Date Active oxycodone 20 mg tablet RxNorm: 3958303 1/2 Tablet(s) PO Q6 as needed 07/17/2017 08/13/2017 Inactive pen needle, diabetic 31 gauge x 5/16" RxNorm: 1 Unit Dose Miscellaneous daily 06/25/2017 03/21/2018 Inactive daily use with victoza Bactrim DS 800 mg-160 mg tablet RxNorm: 014261 1 Tablet(s) PO BID Dr Norwood 06/25/2017 07/04/2017 Inactive Victoza 2-Dino 0.6 mg/0.1 mL (18 mg/3 mL) subcutaneous pen injector RxNorm: 290995 0.6 Milligram(s) SQ daily 06/25/201707/24 Inactive doxycycline hyclate 100 mg tablet RxNorm: 938295 1 Tablet(s) PO BID Dr Norwood 06/21/2017 06/30/2017 Inactive oxycodone 20 mg tablet RxNorm: 6444742 1/2 Tablet(s) PO Q6 as needed 06/14/2017 07/13/2017 Inactive clindamycin 150 mg capsule RxNorm: 796237 1 Capsule(s) PO Q8 06/16/2017 Inactive levothyroxine 175 mcg tablet RxNorm: 649796 TAKE ONE TABLET BY MOUTH DAILY 06/04/2017 09/01/2017 Inactive levothyroxine 175 mcg tablet RxNorm: 158779 TAKE ONE TABLET BY MOUTH DAILY 06/04/2017 11/30/2017 Inactive bisoprolol 5 mg-hydrochlorothiazide 6.25 mg tablet RxNorm: 820702 TAKE ONE TABLET BY MOUTH DAILY 05/24/2017 11/19/2017 Inactive oxycodone 20 mg tablet RxNorm: 9729318 1/2 Tablet(s) PO Q6 as needed 05/14/2017 06/12/2017 Inactive potassium chloride ER 10 mEq capsule,extended release RxNorm: 594817 TAKE ONE CAPSULE BY MOUTH DAILY NEEDED FOR 5 DAYS THEN NEEDED WITH LASIX 04/17/2017 10/13/2017 Inactive Lasix 20 mg tablet RxNorm: 954784 TAKE ONE TABLET BY MOUTH DAILY NEEDED 04/17/2017 09/19/2017 Inactive oxycodone 20 mg tablet RxNorm: 4136493 1/2 Tablet(s) PO Q6 as needed 04/12/2017 05/11/2017 Inactive Colcrys 0.6 mg tablet RxNorm: 610483 2 tabs at onset then may repeat 1 tab in 1 hours if needed- Tablet(s) PO 04/09/2017 No Stop Date Active then take daily until gout resolved Bactrim DS 800 mg-160 mg tablet RxNorm: 934840 1 Tablet(s) PO BID 04/09/2017 04/08/2017 Inactive dc levaquin Bactrim DS 800 mg-160 mg tablet RxNorm: 677013 1 Tablet(s) PO BID 04/09/2017 04/15/2017 Inactive dc levaquin Levaquin 500 mg tablet RxNorm: 685097 1 Tablet(s) PO daily 04/02/2017 Inactive Levaquin 500 mg tablet RxNorm: 732382 1 Tablet(s) PO daily 06/06/2017 Inactive indomethacin 25 mg capsule RxNorm: 080918 1 Capsule(s) PO TID PRN 03/22/2017 03/22/2017 Inactive Lasix 20 mg tablet RxNorm: 822355 1 Tablet(s) PO QDAY PRN 02/201704/16/2017 Inactive daily x 5 days then as needed Levaquin 500 mg tablet RxNorm: 052968 1 Tablet(s) PO daily 02/201703/31/2017 Inactive potassium chloride ER 10 mEq capsule,extended release RxNorm: 130392 1 Capsule(s) PO QDAY PRN 03/22/2017 04/16/2017 Inactive daily x 5 days then as needed with lasix oxycodone 20 mg tablet RxNorm: 3397495 1/2 Tablet(s) PO Q6 as needed 03/08/2017 04/06/2017 Inactive bisoprolol 5 mg-hydrochlorothiazide 6.25 mg tablet RxNorm: 306556 TAKE ONE TABLET BY MOUTH DAILY 02/14/2017 05/14/2017 Inactive oxycodone 20 mg tablet RxNorm: 6477834 1/2 Tablet(s) PO Q6 as needed 02/08/2017 03/07/2017 Inactive oxycodone 20 mg tablet RxNorm: 5924575 1/2 Tablet(s) PO Q6 as needed 01/08/2017 02/06/2017 Inactive levothyroxine 175 mcg tablet RxNorm: 714219 1 Tablet(s) PO daily 12/06/2016 06/03/2017 Inactive [SAVINGS FOR NON-COVERED DRUGS -- BIN:[id number], PCN: ASPROD1, Group: XXXXX, ID# XXXXXXX, Questions: . THIS IS NOT INSURANCE.] oxycodone 20 mg tablet RxNorm: 2133018 1/2 Tablet(s) PO Q6 as needed 12/04/2016 01/02/2017 Inactive oxycodone 20 mg tablet RxNorm: 9569838 1/2 Tablet(s) PO Q6 as needed 11/09/2016 12/03/2016 Inactive bisoprolol 5 mg-hydrochlorothiazide 6.25 mg tablet RxNorm: 036181 TAKE ONE TABLET BY MOUTH DAILY 11/08/2016 02/05/2017 Inactive oxycodone 20 mg tablet RxNorm: 8331261 1/2 Tablet(s) PO Q6 as needed 10/05/2016 11/03/2016 Inactive oxycodone 20 mg tablet RxNorm: 5096886 1/2 Tablet(s) PO Q6 as needed 09/06/2016 10/04/2016 Inactive oxycodone 20 mg tablet RxNorm: 2641854 1/2 Tablet(s) PO Q6 as needed 08/07/2016 09/05/2016 Inactive oxycodone 20 mg tablet RxNorm: 3485181 1/2 Tablet(s) PO Q6 as needed 07/04/2016 08/06/2016 Inactive oxycodone 20 mg tablet RxNorm: 8039736 1/2 Tablet(s) PO Q6 as needed 05/29/2016 07/03/2016 Inactive levothyroxine 150 mcg tablet RxNorm: 774451 1 Tablet(s) PO daily 04/10/2016 04/09/2016 Inactive [SAVINGS FOR NON-COVERED DRUGS -- BIN:[id number], PCN: ASPROD1, Group: XXXXX, ID# XXXXXXX, Questions: . THIS IS NOT INSURANCE.] oxycodone 20 mg tablet RxNorm: 3319453 1/2 Tablet(s) PO Q6 as needed 04/10/2016 05/28/2016 Inactive levothyroxine 150 mcg tablet RxNorm: 349627 1 Tablet(s) PO daily 04/10/2016 10/06/2016 Inactive [SAVINGS FOR NON-COVERED DRUGS -- BIN:[id number], PCN: ASPROD1, Group: XXXXX, ID# XXXXXXX, Questions: . THIS IS NOT INSURANCE.] bisoprolol 5 mg-hydrochlorothiazide 6.25 mg tablet RxNorm: 230570 1 Tablet(s) PO daily 02/16/2016 12/31/2017 Inactive oxycodone 20 mg tablet RxNorm: 0206758 1/2 Tablet(s) PO Q6 as needed 02/16/2016 04/09/2016 Inactive oxycodone 20 mg tablet RxNorm: 2067857 1/2 Tablet(s) PO Q6 as needed 01/04/2016 02/15/2016 Inactive bisoprolol 5 mg-hydrochlorothiazide 6.25 mg tablet RxNorm: 505702 1 Tablet(s) PO daily 11/19/2015 01/17/2016 Inactive bisoprolol 5 mg-hydrochlorothiazide 6.25 mg tablet RxNorm: 709259 1 Tablet(s) PO daily 11/04/2015 11/18/2015 Inactive oxycodone 20 mg tablet RxNorm: 6199888 1/2 Tablet(s) PO Q6 as needed 10/27/2015 01/03/2016 Inactive levothyroxine 150 mcg tablet RxNorm: 483957 1 Tablet(s) PO daily 08/26/2015 02/21/2016 Inactive [SAVINGS FOR NON-COVERED DRUGS -- BIN:[id number], PCN: ASPROD1, Group: XXXXX, ID# XXXXXXX, Questions: . THIS IS NOT INSURANCE.] bisoprolol 5 mg-hydrochlorothiazide 6.25 mg tablet RxNorm: 629675 1 Tablet(s) PO daily 08/26/2015 10/24/2015 Inactive oxycodone 10 mg tablet RxNorm: 6108219 1 Tablet(s) PO Q6 as needed 05/06/2015 10/26/2015 Inactive levothyroxine 150 mcg tablet RxNorm: 465789 1 Tablet(s) PO daily 02/05/2015 08/03/2015 Inactive [SAVINGS FOR NON-COVERED DRUGS -- BIN:562504, PCN: ASPROD1, Group: XXXXX, ID# XXXXXXX, Questions: . THIS IS NOT INSURANCE.] Vitamin D2 50,000 unit capsule RxNorm: 754740 1 Capsule(s) PO weekly 02/05/2015 05/05/2015 Inactive [SAVINGS FOR NON-COVERED DRUGS -- BIN:283383, PCN: ASPROD1, Group: XXXXX, ID# XXXXXXX, Questions: . THIS IS NOT INSURANCE.] Vitamin D2 50,000 unit capsule RxNorm: 782578 1 Capsule(s) PO weekly 02/05/2015 02/04/2015 Inactive bisoprolol 5 mg-hydrochlorothiazide 6.25 mg tablet RxNorm: 328777 1 Tablet(s) PO daily 01/26/2015 02/24/2015 Inactive levothyroxine 200 mcg tablet RxNorm: 329052 1 Tablet(s) PO daily 01/26/2015 01/25/2015 Inactive levothyroxine 200 mcg tablet RxNorm: 747639 1 Tablet(s) PO every other day 01/26/2015 02/04/2015 Inactive [SAVINGS FOR NON-COVERED DRUGS -- BIN:544726, PCN: ASPROD1, Group: XXXXX, ID# XXXXXXX, Questions: . THIS IS NOT INSURANCE.] aspirin 81 mg chewable tablet RxNorm: 107722 1 Tablet(s) PO daily No Start Date Active Plavix 75 mg tablet RxNorm: 855558 1 Tablet(s) PO daily manage by Dr Baig No Start Date Active simvastatin 40 mg tablet RxNorm: 030708 1 Tablet(s) PO QHS managed by Dr Baig No Start Date Active Colcrys 0.6 mg tablet RxNorm: 050135 2 tabs at onset then may repeat 1 tab in 1 hours if needed- Tablet(s) PO No Start Date 04/08/2017 Inactive then take daily until gout resolved aspirin 325 mg tablet RxNorm: 571989 1 Tablet(s) PO daily No Start Date 05/03/2016 Inactive levothyroxine 75 mcg tablet RxNorm: 753847 1 Tablet(s) PO every other day No Start Date 02/04/2015 Inactive takes qod with 200mcg oxycodone 10 mg tablet RxNorm: 1377349 1 Tablet(s) PO Q6 as needed No Start Date 05/05/2015 Inactive ketoconazole 2 % topical cream RxNorm: 357755 1 Gram(s) TOP BID to affected area [...] Item Item Code Result Date Culture Urine [id number] URINE CULTURE SEE NOTES 02/22/2018 Urine Culture [...] 24.5 pg 02/20/2018 Cbc With Differential Ord2 [place]% 8.9 % 02/20/2018 Cbc With Differential Ord2 [...] 0.81 K/ul 02/20/2018 Cbc With Differential Ord2 [place] ABS# 0.7 K/ul 02/20/2018 Cbc With Differential Ord2 Eos ABS# 0.4 K/ul 02/20/2018 Cbc With Differential Ord2 Baso ABS# 0.0 K/ul 02/20/2018 %Hba1C Fbx621 % HbA1c 18539-8 7.7 % 02/20/2018 %Hba1C Sgw086 Gluc Ave 174 mg/dL 02/20/2018 Lipase Ovk395 LIPASE 17 U/L 02/20/2018 Microalbumin Kle708 MicroAlb 6.5 mg/dL 02/20/2018 Amylase Ord34 AMYLASE 15 U/L 02/20/2018 Free T4 Djp272 FREE T4 0.61 ng/dL 02/20/2018 Lipid Ord30 CHOL 203 mg/dL 02/20/2018 Lipid Ord30 HDL 7.0 mg/dl 02/20/2018 Lipid Ord30 TRIG 271 mg/dL 02/20/2018 Lipid Ord30 LDL 142 mg/dL 02/20/2018 Lipid Ord30 C/HDL 29.0 Ratio 02/20/2018 Comp Metabolic Eoe727 NA 134 mEq/L 02/20/2018 Comp Metabolic Atb749 K 3.6 mEq/L 02/20/2018 Comp Metabolic Pkg066 CL 96 mEq/L 02/20/2018 Comp Metabolic Thb338 CO2 29.0 mEq/L 02/20/2018 Comp Metabolic Txl875 ANION GAP 13 02/20/2018 Comp Metabolic Sid274 GLUCOSE 165 mg/dL 02/20/2018 Comp Metabolic Fav017 Creat 1.2 mg/dL 02/20/2018 Comp Metabolic Nsh066 eGFR 63 ml/min/1.73m2 02/20/2018 Comp Metabolic Roo687 BUN 14 mg/dL 02/20/2018 Comp Metabolic Ykk810 B/C Ratio 11.6 Ratio 02/20/2018 Comp Metabolic Sco981 CALCIUM 8.5 mg/dL 02/20/2018 Comp Metabolic Mip953 ALK PHOS 633 U/L 02/20/2018 Comp Metabolic Yeb300 AST(SGOT) 112 U/L 02/20/2018 Comp Metabolic Zkr389 ALT(SGPT) 148 U/L 02/20/2018 Comp Metabolic Ypt091 BILI T 6.8 mg/dL 02/20/2018 Comp Metabolic Ksz572 ALBUMIN 3.3 g/dL 02/20/2018 Comp Metabolic Bpq493 TPRO 5.9 g/dL 02/20/2018 Comp Metabolic Ukx252 GLOB 2.6 g/dL 02/20/2018 Comp Metabolic Xwp835 A/G Ratio 1.3 Ratio 02/20/2018 Comp Metabolic Nar382 Osmo 272 mOsmo 02/20/2018 Total Psa Ord10 [...] Metabolic Ord15 CALCIUM 9.2 mg/dL 11/09/2017 %Hba1C Hhc805 % HbA1c 39661-0 8.0 % 11/09/2017 %Hba1C Doz543 Gluc Ave 183 mg/dL 11/09/2017 Metabolic Ord15 [...] Ord15 CALCIUM 8.7 mg/dL 06/25/2017 Culture Wound [id number] WOUND CULTURE SEE NOTES 04/09/2017 Culture Wound [id number] Continued Results 04/09/2017 Amylase Ord34 AMYLASE 19 [...] 27.9 pg 03/22/2017 Cbc With Differential Ord2 [place]y% 8.3 % 03/22/2017 Cbc With Differential Ord2 [...] 1.35 K/ul 03/22/2017 Cbc With Differential Ord2 [place] ABS# 1.4 K/ul 03/22/2017 Cbc With Differential Ord2 Eos ABS# 0.2 K/ul 03/22/2017 Cbc With Differential Ord2 Baso ABS# 0.0 K/ul 03/22/2017 Comp Metabolic Nyd741 NA 134 mEq/L 03/22/2017 Comp Metabolic Sid121 K 4.5 mEq/L 03/22/2017 Comp Metabolic Ine753 CL 93 mEq/L 03/22/2017 Comp Metabolic Pyc062 CO2 31.0 mEq/L 03/22/2017 Comp Metabolic Nbs030 ANION GAP 15 03/22/2017 Comp Metabolic Vgl956 GLUCOSE 198 mg/dL 03/22/2017 Comp Metabolic Lhq833 Creat 1.5 mg/dL 03/22/2017 Comp Metabolic Afv089 eGFR 50 ml/min/1.73m2 03/22/2017 Comp Metabolic Xdc966 BUN 32 mg/dL 03/22/2017 Comp Metabolic Iho651 B/C Ratio 21.6 Ratio 03/22/2017 Comp Metabolic Prj722 CALCIUM 8.4 mg/dL 03/22/2017 Comp Metabolic Hgi751 ALK PHOS 245 U/L 03/22/2017 Comp Metabolic Apa966 AST(SGOT) 18 U/L 03/22/2017 Comp Metabolic Ylb298 ALT(SGPT) 17 U/L 03/22/2017 Comp Metabolic Vvd780 BILI T 0.8 mg/dL 03/22/2017 Comp Metabolic Ryk608 ALBUMIN 2.9 g/dL 03/22/2017 Comp Metabolic Psf461 TPRO 6.3 g/dL 03/22/2017 Comp Metabolic Ren978 GLOB 3.4 g/dL 03/22/2017 Comp Metabolic Nfa000 A/G Ratio 0.8 Ratio 03/22/2017 Comp Metabolic Bdb212 Osmo 281 mOsmo 03/22/2017 Lipase Gsx231 LIPASE 12 U/L 03/22/2017 Comp Metabolic Etk506 NA 142 mEq/L 03/09/2017 Comp Metabolic Lja170 K 4.8 mEq/L 03/09/2017 Comp Metabolic Cvr586 CL 103 mEq/L 03/09/2017 Comp Metabolic Cru631 CO2 30.0 mEq/L 03/09/2017 Comp Metabolic Afz002 ANION GAP 14 03/09/2017 Comp Metabolic Ajh126 GLUCOSE 152 mg/dL 03/09/2017 Comp Metabolic Obt310 Creat 1.3 mg/dL 03/09/2017 Comp Metabolic Lmo681 eGFR 56 ml/min/1.73m2 03/09/2017 Comp Metabolic Weu858 BUN 23 mg/dL 03/09/2017 Comp Metabolic Vpj395 B/C Ratio 17.3 Ratio 03/09/2017 Comp Metabolic Kyb467 CALCIUM 8.5 mg/dL 03/09/2017 Comp Metabolic Nfn645 ALK PHOS 97 U/L 03/09/2017 Comp Metabolic Txb978 AST(SGOT) 10 U/L 03/09/2017 Comp Metabolic Wqx210 ALT(SGPT) 6 U/L 03/09/2017 Comp Metabolic Sjm571 BILI T 0.4 mg/dL 03/09/2017 Comp Metabolic Xxf786 ALBUMIN 3.4 g/dL 03/09/2017 Comp Metabolic Xxr281 TPRO 6.2 g/dL 03/09/2017 Comp Metabolic Xrk667 GLOB 2.8 g/dL 03/09/2017 Comp Metabolic Sgb817 A/G Ratio 1.2 Ratio 03/09/2017 Comp Metabolic Iik183 Osmo 290 mOsmo 03/09/2017 Free T4 Ivc398 FREE T4 0.86 ng/dL 03/08/2017 Cbc With [...] 28.2 pg 03/08/2017 Cbc With Differential Ord2 [place]y% 8.7 % 03/08/2017 Cbc With Differential Ord2 [...] 1.63 K/ul 03/08/2017 Cbc With Differential Ord2 [place] ABS# 0.9 K/ul 03/08/2017 Cbc With Differential Ord2 Eos ABS# 0.5 K/ul 03/08/2017 Cbc With Differential Ord2 Baso ABS# 0.0 K/ul 03/08/2017 Tsh Ord6 hTSH II 4.52 uIU/mL 03/08/2017 %Hba1C Qea516 % HbA1c 68331-1 8.5 % 03/08/2017 %Hba1C Cls066 Gluc Ave 197 mg/dL 03/08/2017 %Hba1C Wyz882 % HbA1c 56751-9 9.8 % 12/04/2016 %Hba1C Ugx012 Gluc Ave 235 mg/dL 12/04/2016 Tsh Ord6 hTSH II 10.65 uIU/mL 11/30/2016 Comp Metabolic Duj870 NA 134 mEq/L 11/30/2016 Comp Metabolic Gcs861 K 5.0 mEq/L 11/30/2016 Comp Metabolic Iss845 CL 95 mEq/L 11/30/2016 Comp Metabolic Fis315 CO2 34.0 mEq/L 11/30/2016 Comp Metabolic Vlx099 ANION GAP 10 11/30/2016 Comp Metabolic Cwt799 GLUCOSE 226 mg/dL 11/30/2016 Comp Metabolic Soi031 Creat 1.3 mg/dL 11/30/2016 Comp Metabolic Jew733 eGFR 56 ml/min/1.73m2 11/30/2016 Comp Metabolic Fml062 BUN 21 mg/dL 11/30/2016 Comp Metabolic Hnk557 B/C Ratio 15.7 Ratio 11/30/2016 Comp Metabolic Vdj488 CALCIUM 8.9 mg/dL 11/30/2016 Comp Metabolic Bdu883 ALK PHOS 112 U/L 11/30/2016 Comp Metabolic Ruh268 AST(SGOT) 9 U/L 11/30/2016 Comp Metabolic Rbe493 ALT(SGPT) 7 U/L 11/30/2016 Comp Metabolic Uet281 BILI T 0.6 mg/dL 11/30/2016 Comp Metabolic Fvr230 ALBUMIN 3.6 g/dL 11/30/2016 Comp Metabolic Bhd950 TPRO 6.4 g/dL 11/30/2016 Comp Metabolic Ebl142 GLOB 2.9 g/dL 11/30/2016 Comp Metabolic Nal302 A/G Ratio 1.2 Ratio 11/30/2016 Comp Metabolic Nqi708 Osmo 278 mOsmo 11/30/2016 Lipid Ord30 CHOL [...] 13.0 % 11/30/2016 Cbc With Differential Ord2 [place]y% 7.9 % 11/30/2016 Cbc With Differential Ord2 [...] 1.34 K/ul 11/30/2016 Cbc With Differential Ord2 [place] ABS# 0.8 K/ul 11/30/2016 Cbc With Differential Ord2 Eos ABS# 0.3 K/ul 11/30/2016 Cbc With Differential Ord2 Baso ABS# 0.0 K/ul 11/30/2016 Free T4 Vvf886 FREE T4 0.89 ng/dL 11/30/2016 Review of [...] rate 11/08/2017 None Full Exam - General 1995 Cardiovascular extremities Overall: no clubbing 11/08/2017 None [...] Codes Date ADMIN PNEUMOCOCCAL VACCINE SNOMED CT: 30493662 CPT-4: G0009 02/05/2018 Pneumococcal Polysaccharide Vaccine, 23-Valent, Ad CPT-4: 18153 02/05/2018 PPPS, SUBSEQ VISIT CPT -4: G0439 11/30/2017 URINALYSIS NONAUTO W/O SCOPE CPT-4: 72762 03/22/2017 URINALYSIS NONAUTO W/O SCOPE CPT-4: 96029 03/21/2017 PPPS, SUBSEQ VISIT CPT -4: G0439 11/30/2016 PNEUMOCOCCAL VACC 13 JAVIER IM Formatting Model/CDA Sections, Assigned to SNOMED CT: 16072084 CPT-4: 17371Wsvlybh 11/30/2016 ADMIN PNEUMOCOCCAL VACCINE SNOMED CT: 19342474 CPT-4: G0009 11/30/2016 Vital Signs Date Vital 02/25/2018 Blood Pressure 1: 120/70 Code : 8480-6 BMI: 37.0 Code : 21114-4 Heart Rate 1 : 51 bpm Height: 5'10" SpO2: 97% Weight: 258 lbs 02/20/2018 Blood Pressure 1: 124/70 Code : 8480-6 BMI: 38.0 Code : 77852-1 Heart Rate 1 : 60 bpm Height: 5'10" SpO2: 96% Weight: 265 lbs 02/05/2018 Blood Pressure 1: 116/66 Code : 8480-6 BMI: 38.0 Code : 78069-1 Heart Rate 1 : 63 bpm Height: 5'10" SpO2: 98% Weight: 265 lbs 11/30/2017 Blood Pressure 1: 132/60 Code : 8480-6 BMI: 37.0 Code : 32805-0 Heart Rate 1 : 100 bpm Height: 5'10 " SpO2: 96% Waist Measure (cm): 122 cm Weight: 258 lbs 11/08/2017 Blood Pressure 1: 126/64 Code : 8480-6 BMI: 37.2 Code : 97702-4 Heart Rate 1 : 92 bpm Height: 5'10" SpO2: 94% Weight: 259 lbs 09/20/2017 Blood Pressure 1: 122 Code : 8480-6 BMI: 36.9 Code : 89265-4 Heart Rate 1 : 57 bpm Height: 5'10" SpO2: 96% Weight: 257 lbs 06/25/2017 Blood Pressure 1: 12468 Code : 8480-6 BMI: 37.0 Code : 14598-4 Height: 5'10 " Weight: 258 lbs 06/07/2017 Blood Pressure 1: 12264 Code : 8480-6 BMI: 37.0 Code : 07914-3 Heart Rate 1 : 60 bpm Height: 5'10" SpO2: 94% Temperature: 36.4 (C) / 97.6 (F) Weight: 258 lbs 05/03/2017 Blood Pressure 1: 118/74 Code : 8480-6 BMI: 38.2 Code : 86834-1 Heart Rate 1 : 52 bpm Height: 5'10" SpO2: 98% Weight: 266 lbs 04/02/2017 Blood Pressure 1: 118/62 Code : 8480-6 BMI: 38.2 Code : 55243-8 Heart Rate 1 : 53 bpm Height: 5'10" SpO2: 93% Weight: 266 lbs 03/26/2017 Blood Pressure 1: 114/62 Code : 8480-6 BMI: 38.3 Code : 95811-0 Height: 5'10 " Weight: 267 lbs 03/22/2017 Blood Pressure 1: 122/64 Code : 8480-6 BMI: 40.0 Code : 49237-1 Heart Rate 1 : 52 bpm Height: 5'10" SpO2: 94% Weight: 279 lbs 03/08/2017 Blood Pressure 1: 124/70 Code : 8480-6 BMI: 39.4 Code : 37369-4 Heart Rate 1 : 51 bpm Height: 5'10" SpO2: 94% Weight: 274 lbs 8 oz 12/06/2016 Blood Pressure 1: 126/62 Code : 8480-6 BMI: 40.3 Code : 96664-9 Heart Rate 1 : 50 bpm Height: 5'10" SpO2: 94% Weight: 281 lbs 11/30/2016 Blood Pressure 1: 112/62 Code : 8480-6 BMI: 40.3 Code : 11113-1 Heart Rate 1 : 52 bpm Height: 5'10" SpO2: 93% Waist Measure (cm): 135 cm Weight: 281 lbs 11/28/2016 Blood Pressure 1: 132/72 Code : 8480-6 BMI: 40.3 Code : 38545-1 Heart Rate 1 : 50 bpm Height: 5'10" Weight: 281 lbs 05/04/2016 Blood Pressure 1: 128/78 Code : 8480-6 BMI: 38.5 Code : 09595-9 Heart Rate 1 : 74 bpm Height: 5'10" SpO2: 98% Weight: 268 lbs 8 oz 11/04/2015 Blood Pressure 1: 136/60 Code : 8480-6 BMI: 38.0 Code : 01777-9 Heart Rate 1 : 55 bpm Height: 5'10" SpO2: 94% Weight: 265 lbs 07/30/2015 Blood Pressure 1: 128/74 Code : 8480-6 BMI: 38.0 Code : 94168-6 Heart Rate 1 : 47 bpm Height: 5'10" SpO2: 97% Weight: 265 lbs 01/26/2015 Blood Pressure 1: 122/64 Code : 8480-6 BMI: 34.0 Code : 06858-6 Heart Rate 1 : 68 bpm Height: [...] Annual Medicare Wellness Exam Handling Stress usually jaovn effectively 11/30/2016 None Annual Medicare Wellness Exam [...] data Encounters Encounter Performer Location Codes Date ([id number]) [id number] EST. PATIENT, LEVEL IV Diagnosis: Malignant neoplasm of prostate[ICD10: C61] Dorene Sanchez MD, [facility] CPT-4: 29398 02/25/2018 [id number] EST. PATIENT, LEVEL IV Diagnosis: Generalized abdominal pain[ICD10: R10.84] Diagnosis: Unspecified jaundice[ICD10: R17] Diagnosis: Gross hematuria[ICD10: R31.0] Kiki Sanchez MD, [facility] CPT-4 : 92435 02/20/2018 [id number]) [id number] EST. PATIENT, LEVEL IV Diagnosis: Type 2 diabetes mellitus with hyperglycemia[ICD10: E11.65] Diagnosis: Essential (primary) hypertension[ICD10: I10] Diagnosis: Chronic kidney disease, stage 3 (moderate)[ICD10: N18.3] Diagnosis: Chronic pain syndrome[ICD10: G89.4] Diagnosis: Other specified hypothyroidism[ICD10: E03.8] Diagnosis: Encounter for screening for malignant neoplasm of prostate[ICD10: Z12.5] Diagnosis: Encounter for immunization[ICD10: Z23] Sarah Sanchez MD, [facility] CPT-4: 52844 02/05/2018 [id number]) [id number] EST. PATIENT, LEVEL IV Diagnosis: Type 2 diabetes mellitus with hyperglycemia[ICD10: E11.65] Diagnosis: Essential (primary) hypertension[ICD10: I10] Dorene Sanchez MD, [facility] CPT-4: 06169 11/08/2017 ([id number]) [id number] EST. PATIENT, LEVEL IV Diagnosis: Type 2 diabetes mellitus with hyperglycemia[ICD10: E11.65] Diagnosis: Chronic pain syndrome[ICD10: G89.4] Diagnosis: Essential (primary) hypertension[ICD10: I10] Diagnosis: Chronic kidney disease, stage 3 (moderate)[ICD10: N18.3] Diagnosis: Localized edema[ICD10: R60.0] Dorene Sanchez MD, [facility] CPT- 4: 27915 09/20/2017 ([id number]) 87819 EST. PATIENT, LEVEL III Diagnosis: Type 2 diabetes mellitus with hyperglycemia[ICD10: E11.65] Sarah Sanchez MD, [facility] CPT-4: 83581 06/25/2017 ([id number]) 48768 EST. PATIENT, LEVEL III Diagnosis: Cellulitis of left lower limb[ICD10: L03.116] Sarah Sanchez MD, [facility] CPT-4: 53446 06/07/2017 ([id number]) 42859 EST. PATIENT, LEVEL III Diagnosis: Localized edema[ICD10: R60.0] Diagnosis: Type 2 diabetes mellitus with foot ulcer[ICD10: E11.621] Sarah Sanchez MD , [facility] CPT-4: 31532 05/03/2017 ([id number]) 33229 EST. PATIENT, LEVEL III Diagnosis: Cellulitis of left lower limb[ICD10: L03.116] Diagnosis: Localized edema[ICD10: R60.0] Sarah Sanchez MD, [facility] CPT-4: 09074 04/02/2017 ([id number]) Miscellaneous no charge Diagnosis: Localized edema[ICD10: R60.0] Diagnosis: Cellulitis of left lower limb[ICD10: L03.116] Sarah Sanchez MD, [facility] CPT-4: 81150 03/26/2017 ([id number]) 63599 EST. PATIENT, LEVEL IV Diagnosis: Cellulitis of left lower limb[ICD10: L03.116] Diagnosis: Chronic gout due to renal impairment, left ankle and foot, without tophus (tophi)[ICD10: M1A.3720] Diagnosis: Localized edema[ICD10: R60.0] Diagnosis: Type 2 diabetes mellitus with hyperglycemia[ICD10: E11.65] Diagnosis: Dysuria[ICD10: R30.0] Dorene Sanchez MD, [facility] CPT-4: 02130 03/22/2017 ([id number]) 16823 EST. PATIENT, LEVEL IV Diagnosis: Type 2 diabetes mellitus with hyperglycemia[ICD10: E11.65] Diagnosis: Other specified hypothyroidism[ICD10: E03.8] Diagnosis: Essential (primary) hypertension[ICD10: I10] Sarah Sanchez MD, [facility] CPT-4: 02213 03/08/2017 ([id number]) 53414 EST. PATIENT, LEVEL III Diagnosis: Type 2 diabetes mellitus with hyperglycemia[ICD10: E11.65] Diagnosis: Other specified hypothyroidism[ICD10: E03.8] Sarah Sanchez MD, [facility] CPT-4: 26531 12/06/2016 ([id number]) 48613 EST. PATIENT, LEVEL IV Diagnosis: Essential (primary) hypertension[ICD10: I10] Diagnosis: Chronic kidney disease, stage 3 (moderate)[ICD10: N18.3] Dorene Sanchez MD, [facility] CPT-4: 22867 11/28/2016 ([id number]) 61840 EST. PATIENT, LEVEL IV Diagnosis: Essential (primary) hypertension[ICD10: I10] Diagnosis: Chronic pain syndrome[ICD10: G89.4] Diagnosis: Chronic kidney disease, stage 3 (moderate)[ICD10: N18.3] Diagnosis: Vitamin B12 deficiency anemia due to intrinsic factor deficiency[ ICD10: D51.0] Diagnosis: Other specified hypothyroidism[ICD10: E03.8] Dorene Sanchez MD, [facility] CPT-4: 31344 05/04/2016 [id number] EST. PATIENT, LEVEL III Diagnosis: Chronic pain syndrome[ICD10: G89.4] Diagnosis: Essential (primary) hypertension[ICD10: I10] Diagnosis: Other specified hypothyroidism[ICD10: E03.8] [facility] CPT-4: 28125 11/04/2015 [id number] EST. PATIENT, LEVEL III Diagnosis: Chronic pain syndrome[ICD10: G89.4] Diagnosis: Essential (primary) hypertension[ICD10: I10] [facility] CPT-4: 78321 07/30/2015 ([id number]) OFFICE/OUTPATIENT VISIT NEW Diagnosis: ESSENTIAL HYPERTENSION[ICD9: 401.9] Diagnosis: HYPOTHYROIDISM[ICD9: 244.9] Diagnosis: ANEMIA[ICD9: 285.9] Diagnosis: Vitamin B12 deficiency[ICD9: 266.2] Diagnosis: CHRONIC PAIN SYNDROME[ICD9: 338.4] Diagnosis: Chronic renal insufficiency, stage III (moderate)[ICD9: 585.3] Diagnosis: GOUT[ICD9: 274.9] [facility] CPT-4: 27927 01/26/2015 Plan of Care Planned Activity Notes Codes Status Date Referral: Edgard Rivera MD WPtel: Via [address] oMreno. Patient informed. Referral info faxed. Completed 02/27/2018 Visit Plan: Recurrent prostate cancer - I have recommended a referral to Dr. Rivera. We discussed the case at length today- he is not interested in extensive treatment, but if possible to extend his quantity and quality of life, he would like to try. 02/25/2018 Appointment: Dorene Sanchez WPtel: [address] [place], [place] [id number] (15 min) Moderate 02/25/2018 Patient Education: Patient Medication Summary Completed 02/25/2018 Care Plan: Referral Order SNOMED-CT : [id number] Pending 02/25/2018 Visit Plan: Intermittent abdominal pain, jaundice, itching - will check labs and treat as indicated - pt is to go to the ER with any acute change in symptoms or any acute concerns. 02/20/2018 Appointment: Kiki Menjivar WPtel: [facility] (30 min) Complex 02/20/2018 Patient [...] control. 02/05/2018 Appointment: Sarah Hernandes WPtel: [phone] [phone] (30 min) Complex 02/05/2018 Patient Education: Patient [...] surrogate. 11/30/2017 Appointment: [phone] [phone] [place] [facility] - Annual Wellness Visit 11/30/2017 Patient Education: [...] 1.2 11/08/2017 Appointment: Dorene Sanchez [phone] [place] (15 min) Moderate 11/08/2017 Patient Education: Patient [...] over-medication. 09/20/2017 Appointment: Dorene Sanchez [phone] [place] (15 min) Moderate 09/20/2017 Patient Education: Patient [...] control. 06/25/2017 Appointment: Sarah Hernandes WPtel: [phone] [phone] [place] (30 min) Complex 06/25/2017 Patient Education: Patient Medication Summary Completed 06/25/2017 Appointment: Sraah Hernandes WPtel: [phone] [phone] [place] (30 min) Complex 06/22/2017 Visit Plan: Cellulitis - start oral antibiotics as previously directed, return to clinic as previously directed, call for acute change in symptoms, worsening redness, warmth, discharge. 06/07/2017 Appointment: [phone] [phone] [place] (30 min) Complex 06/07/2017 Patient Education: Patient Medication Summary Completed 06/07/2017 Patient Education: Obesity Completed 06/07/2017 Appointment: Dorene Sanchez WPtel: [address] [facility] [place] (15 min) Moderate 05/31/2017 Visit Plan: Edema-significantly improved-no changes Ulcer- left lower leg and foot-seeing Dr Norwood at wound care-appt scheduled with Dr Frausto for vascular evaluation 05/03/2017 Appointment: Sarah Hernandes WPtel: [phone] (15 min) Moderate 05/03/2017 Patient Education: Patient Medication Summary Completed 05/03/2017 Patient Education: Obesity Completed 05/03/2017 Visit Plan: Ewkrvqnnsa-dgmlxzenn-jjxezvc to finish abx-no further treatment indicated Edema-significantly improved-no longer weeping- continue unna boots twice weekly with home health 04/02/2017 Appointment: Sarah Hernandes WPtel: [phone] (30 min) Complex 04/02/2017 Patient Education: Patient Medication Summary Completed 04/02/2017 Patient Education: Obesity Completed 04/02/2017 Visit Plan: Cellulitis-left leg-continue levaquin Edema- increase lasix/potassium-consult [facility] for unna boots/dressing changes 03/26/2017 Appointment: Sarah Hernandes WPtel: [phone] (15 min) Moderate [...] indomethacin-stop aleve 03/22/2017 Appointment: Sarah Hernandes WPtel: [address] [place] [phone] (15 min) Moderate 03/22/2017 Patient Education: Patient [...] of control. 03/08/2017 Appointment: Sarah Hernandes WPtel: [address] [place] [phone] (30 min) Complex 03/08/2017 Patient Education: Patient [...] paperwork for health care surrogate. 11/30/2016 Appointment: Cec[phone] [facility] - Annual Wellness Visit 11/30/2016 [...] in fluids. 11/28/2016 Appointment: Dorene Sanchez [facility]Ptel: [phone] [place] (15 min) Moderate 11/28/2016 Patient Education: Patient [...] 01/26/2015 Referral: Edgard Rivera MD WPtel: [address] [place] Referral Appointment Requested Instructions Comment [...] months based on previous levels of control. victoza 0.6mg daily . Diabetes Mellitus [...] b12 shots. WOUND CARE APPT ANTIBIOTIC TO [facility] . Cellulitis - start oral antibiotics as previously directed, return to clinic as previously directed, call for acute change in symptoms, worsening redness, warmth, discharge. PREVNAR 13 TODAY- GIVEN IN OFFICE PREVNAR 23 IN ONE YEAR SHINGLES VACCINATION TO BE ADMINISTERED AT [facility] RECOMMEND OBTAINING MEDICAL POWER OF [place] AND LIVING WILL PATIENT DOES NOT HAVE [...] with Dr Frausto for vascular evaluation . Phfinkwrfd-efltnivft-mfwqize to finish abx-no further treatment indicated Edema-significantly improved-no longer weeping-continue unna boots twice weekly with home health . Intermittent abdominal pain, jaundice, itching - will check labs and treat as indicated - pt is to go to the ER with any acute change in symptoms or any acute concerns. victoza 0.6mg daily . Diabetes Mellitus - [...] YEAR SHINGLES VACCINATION TO BE ADMINISTERED AT [facility] RECOMMEND OBTAINING MEDICAL POWER OF [place] AND LIVING WILL PATIENT DOES NOT HAVE [...] YEAR SHINGLES VACCINATION TO BE ADMINISTERED AT [facility] RECOMMEND OBTAINING MEDICAL POWER OF [place] [employer] AND LIVING WILL PATIENT DOES NOT HAVE [...] CARE . Cellulitis-left leg-continue levaquin Edema-increase lasix/potassium-consult [facility] for unna boots/dressing changes . Recurrent prostate cancer - I have recommended a referral to Dr. Rivera. We discussed the case at length today- he is not interested in extensive treatment, but if possible to extend his quantity and quality of life, he would like to try. . Diabetes Mellitus - controlled - per [...]
--- OUTSIDE RECORDS SUMMARY | 2018-11-26 12:05 | XMS REPORT | Continuity of Care Document ---
Author Author [facility] Organization [facility] Address Unknown Phone Unavailable Allergies Active Description Code Type Severity Reaction Onset Reported/Identified Relationship to Patient Clinical Status Yes NKANo Known Allergies NKA Miscellaneous Allergy Unknown N/A 04/26/2006 Medications There is no data. Problems Date Dx Coded Attending Type Code Diagnosis Diagnosed By 11/18/2011 Ot 454.0 LEG VARICOSITY W ULCER 01/31/2012 Ot 185 MALIGN NEOPL PROSTATE 01/31/2012 Ot 244.9 HYPOTHYROIDISM NOS 01/31/2012 Ot 305.01 ALCOHOL ABUSE-CONTINUOUS 01/31/2012 Ot 305.1 TOBACCO USE DISORDER 01/31/2012 Ot 401.9 HYPERTENSION NOS 01/31/2012 Ot V58.69 OTH MED,LT, CURRENT USE 05/13/2012 Ot 185 MALIGN NEOPL PROSTATE 05/13/2012 Ot V58.0 ENCOUNTER FOR RADIOTHERAPY 10/13/2012 Ot 185 MALIGN NEOPL PROSTATE 07/29/2014 KIMBERLY RENEE MD Ot 244.9 07/29/2014 KIMBERLY RENEE MD Ot 276.8 07/29/2014 KIMBERLY RENEE MD Ot 285.9 07/29/2014 KIMBERLY RENEE MD Ot 287.5 07/29/2014 KIMBERLY RENEE MD Ot 305.1 07/29/2014 KIMBERLY RENEE MD Ot 401.9 07/29/2014 KIMBERLY RENEE MD Ot 569.3 07/29/2014 KIMBERLY RENEE MD Ot 571.2 07/29/2014 KIMBERLY RENEE MD Ot 584.9 07/29/2014 KIMBERLY RENEE MD Ot 595.82 07/29/2014 KIMBERLY RENEE MD Ot 599.70 07/29/2014 KIMBERLY RENEE MD Ot 780.64 07/29/2014 KIMBERLY RENEE MD Ot 782.3 07/29/2014 VÍCTOR RICHARD KIMBERLY M Ot 790.6 07/29/2014 VÍCTOR RICHARD, KIMBERLY M Ot V10.46 07/29/2014 VÍCTOR RICHARD, KIMBERLY M Ot V15.3 07/30/2014 VÍCTOR RICHARD, KIMBERLY M Ot 244.9 07/30/2014 VÍCTOR RICHARD, KIMBERLY M Ot 276.8 07/30/2014 VÍCTOR RICHARD, KIMBERLY M Ot 285.9 07/30/2014 VÍCTOR RICHARD, KIMBERLY M Ot 287.5 07/30/2014 VÍCTOR RICHARD, KIMBERLY M Ot 305.1 07/30/2014 VÍCTOR RICHARD, KIMBERLY M Ot 401.9 07/30/2014 VÍCTOR RICHARD, KIMBERLY M Ot 569.3 07/30/2014 VÍCTOR RICHARD, KIMBERLY M Ot 571.2 07/30/2014 VÍCTOR RICHARD, KIMBERLY M Ot 584.9 07/30/2014 VÍCTOR RICHARD, KIMBERLY M Ot 595.82 07/30/2014 VÍCTOR RICHARD, KIMBERLY M Ot 599.70 07/30/2014 VÍCTOR RICHARD, KIMBERLY M Ot 780.64 07/30/2014 VÍCTOR RICHARD, KIMBERLY M Ot 782.3 07/30/2014 VÍCTOR RICHARD, KIMBERLY M Ot 790.6 07/30/2014 KIMBERLY RENEE MD M Ot V10.46 07/30/2014 KIMBERLY RENEE MD M Ot V15.3 07/30/2014 KIMBERLY RENEE MD M Ot 454.0 08/01/2014 KIMBERLY RENEE MD Ot 211.1 BENIGN NEOPLASM STOMACH 08/01/2014 KIMBERLY RENEE MD M Ot 244.9 HYPOTHYROIDISM NOS 08/01/2014 KIMBERLY RENEE MD M Ot 266.2 B-COMPLEX DEFIC NEC 08/01/2014 KIMBERLY RENEE MD Ot 276.8 HYPOPOTASSEMIA 08/01/2014 KIMBERLY RENEE MD M Ot 281.9 DEFICIENCY ANEMIA NOS 08/01/2014 KIMBERLY RENEE MD M Ot 285.9 08/01/2014 KIMBERLY RENEE MD Ot 287.5 THROMBOCYTOPENIA NOS 08/01/2014 KIMBERLY RENEE MD M Ot 303.91 ALCOH DEP NEC/NOS-CONTIN 08/01/2014 KIMBERLY RENEE MD Ot 305.1 TOBACCO USE DISORDER 08/01/2014 KIMBERLY RENEE MD Ot 327.23 OBSTRUCTIVE SLEEP APNEA (ADULT) (PEDIATR 08/01/2014 KIMBERLY RENEE MD Ot 401.9 HYPERTENSION NOS 08/01/2014 KIMBERLY RENEE MD Ot 414.01 CORONARY ATHEROSCLEROSIS OF [place] CORON 08/01/2014 KIMBERLY RENEE MD Ot 425.4 PRIM CARDIOMYOPATHY NEC 08/01/2014 KIMBERLY RENEE MD Ot 428.0 CONGESTIVE HEART FAILURE NOS 08/01/2014 KIMBERLY RENEE MD Ot 428.23 ACUTE CHRONIC SYSTOLIC HRT FAILURE 08/01/2014 KIMBERLY RENEE MD Ot 448.9 CAPILLARY DIS NEC/NOS 08/01/2014 KIMBERLY RENEE MD Ot 454.0 LEG VARICOSITY W ULCER 08/01/2014 KIMBERLY RENEE MD Ot 455.0 INT HEMORRHOID W/O COMPL 08/01/2014 KIMBERLY RENEE MD Ot 478.79 DISEASE OF [place] NEC 08/01/2014 KIMBERLY RENEE MD Ot 569.2 RECTAL ANAL STENOSIS 08/01/2014 KIMBERLY RENEE MD Ot 569.3 08/01/2014 KIMBERLY RENEE MD Ot 569.49 RECTAL ANAL DIS NEC 08/01/2014 KIMBERLY RENEE MD Ot 571.2 ALCOHOL CIRRHOSIS LIVER 08/01/2014 KIMBERLY RENEE MD Ot 584.9 ACUTE RENAL FAILURE, UNSPECIFIED 08/01/2014 KIMBERLY RENEE MD Ot 595.82 IRRADIATION CYSTITIS 08/01/2014 KIMBERLY RENEE MD Ot 599.70 08/01/2014 KIMBERLY RENEE MD Ot 780.64 08/01/2014 KIMBERLY RENEE MD Ot 782.3 EDEMA 08/01/2014 KIMBERLY RENEE MD Ot 790.6 ABN BLOOD CHEMISTRY NEC 08/01/2014 KIMBERLY RENEE MD Ot E849.7 ACCID IN RESIDENT INSTIT 08/01/2014 KIMBERLY RENEE MD Ot E879.2 ABN REACT-RADIOTHERAPY 08/01/2014 KIMBERLY RENEE MD Ot V10.46 HX-PROSTATIC MALIGNANCY 08/01/2014 KIMBERLY RENEE MD Ot V15.3 HX OF IRRADIATION 08/01/2014 KIMBERLY RENEE MD Ot V45.82 PERCUTANEOUS TRANSLUM CORON ANGIOPLASTY 08/04/2014 KIMBERLY RENEE MD Ot 454.0 LEG VARICOSITY W ULCER 02/04/2015 FLORENCE RICHARD, GAVIN Freed Ot 280.9 02/04/2015 FLORENCE RICHARD, GAVIN A Ot 536.8 02/04/2015 FLORENCE RICHARD, GAVIN Freed Ot E934.0 02/05/2015 FLORENCE RICHARD, GAVIN Freed Ot 280.9 02/05/2015 FLORENCE RICHARD, GAVIN Freed Ot 536.8 02/05/2015 FLORENCE RICHARD, GAVIN A Ot E934.0 02/10/2015 FLORENCE RICHARD, GAVIN A Ot 280.9 02/10/2015 FLORENCE RICHARD, GAVIN A Ot 536.8 02/10/2015 FLORENCE RICHARD, GAVIN A Ot E934.0 02/12/2015 FLORENCE RICHARD, GAVIN A Ot 280.9 02/12/2015 FLORENCE RICHARD, GAVIN A Ot 536.8 02/12/2015 FLORENCE RICHARD, GAVIN A Ot E934.0 02/17/2015 FLORENCE RICHARD, GAVIN A Ot 280.9 02/17/2015 FLORENCE RICHARD, GAVIN A Ot 536.8 02/17/2015 FLORENCE RICHARD, GAVIN Freed Ot E934.0 03/26/2015 FLORENCE RICHARD, GAVIN Freed Ot 280.9 03/26/2015 FLORENCE RICHARD, GAVIN A Ot 536.8 03/26/2015 FLORENCE RICHARD, GAVIN Freed Ot E934.0 05/02/2015 FLORENCE RICHARD, GAVIN Freed Ot 280.9 IRON DEFIC ANEMIA NOS 05/02/2015 FLORENCE RICHARD, GAVIN Freed Ot 536.8 STOMACH FUNCTION DIS NEC 05/02/2015 FLORENCE RICHARD, GAVIN Freed Ot E934.0 ADV EFF IRON COMPOUNDS 04/09/2017 Ot 185 MALIGN NEOPL PROSTATE 04/09/2017 Ot 553.3 DIAPHRAGMATIC HERNIA 04/09/2017 Ot 185 MALIGN NEOPL PROSTATE 04/09/2017 GAVIN HENRIQUEZ MD Ot 280.9 IRON DEFIC ANEMIA NOS 04/09/2017 GAVIN HENRIQUEZ MD Ot 536.8 STOMACH FUNCTION DIS NEC 04/09/2017 GAVIN HENRIQUEZ MD Ot E934.0 ADV EFF IRON COMPOUNDS 04/11/2017 LILLIAN PARSONS MD, Ot E11.621 TYPE 2 DIABETES MELLITUS WITH FOOT ULCER 04/11/2017 LILLIAN PARSONS MD, Ot E11.65 TYPE 2 DIABETES MELLITUS WITH HYPERGLYCE 04/11/2017 LILLIAN PARSONS MD Ot 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 04/11/2017 LILLIAN PARSONS MD Ot 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 04/11/2017 LILLIAN PARSONS MD Ot I87.323 CHRONIC VENOUS HTN W INFLAMMATION OF [place] 04/11/2017 LILLIAN PARSONS MD, Ot L97.412 NON-PRS CHR ULCER OF RIGHT HEEL AND MIDF 04/11/2017 LILLIAN PARSONS MD, Ot L97.512 NON-PRS CHRONIC ULCER OTH PRT RIGHT FOOT 04/12/2017 LILLIAN PARSONS MD, Ot E11.621 TYPE 2 DIABETES MELLITUS WITH FOOT ULCER 04/12/2017 LILLIAN PARSONS MD, Ot E11.65 TYPE 2 DIABETES MELLITUS WITH HYPERGLYCE 04/12/2017 LILLIAN PARSONS MD Ot 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 04/12/2017 LILLIAN PARSONS MD Ot 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 04/12/2017 LILLIAN PARSONS MD Ot I87.323 CHRONIC VENOUS HTN W INFLAMMATION OF [place] 04/12/2017 LILLIAN PARSONS MD Ot L97.412 NON-PRS CHR ULCER OF RIGHT HEEL AND MIDF 04/12/2017 LILLIAN PARSONS MD Ot L97.512 NON-PRS CHRONIC ULCER OTH PRT RIGHT FOOT 04/12/2017 Ot 185 MALIGN NEOPL PROSTATE 04/12/2017 Ot 553.3 DIAPHRAGMATIC HERNIA 04/12/2017 Ot 185 MALIGN NEOPL PROSTATE 04/12/2017 GAVIN HENRIQUEZ MD Ot 280.9 IRON DEFIC ANEMIA NOS 04/12/2017 GAVIN HENRIQUEZ MD Ot 536.8 STOMACH FUNCTION DIS NEC 04/12/2017 GAVIN HENRIQUEZ MD Ot E934.0 ADV EFF IRON COMPOUNDS 04/12/2017 LILLIAN PARSONS MD, Ot E11.621 TYPE 2 DIABETES MELLITUS WITH FOOT ULCER 04/12/2017 LILLIAN PARSONS MD, Ot E11.65 TYPE 2 DIABETES MELLITUS WITH HYPERGLYCE 04/12/2017 LILLIAN PARSONS MD, Ot 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 04/12/2017 LILLIAN PARSONS MD Ot 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 04/12/2017 LILLIAN PARSONS MD Ot I87.323 CHRONIC VENOUS HTN W INFLAMMATION OF [place] 04/12/2017 LILLIAN PARSONS MD, Ot L97.412 NON-PRS CHR ULCER OF RIGHT HEEL AND MIDF 04/12/2017 LILLIAN PARSONS MD Ot L97.512 NON-PRS CHRONIC ULCER OTH PRT RIGHT FOOT 04/16/2017 LILLIAN PARSONS MD, Ot E11.621 TYPE 2 DIABETES MELLITUS WITH FOOT ULCER 04/16/2017 LILLIAN PARSONS MD, Ot E11.65 TYPE 2 DIABETES MELLITUS WITH HYPERGLYCE 04/16/2017 LILLIAN PARSONS MD, Ot 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 04/16/2017 LILLIAN PARSONS MD, Ot 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 04/16/2017 LILLIAN PARSONS MD Ot I87.323 CHRONIC VENOUS HTN W INFLAMMATION OF [place] 04/16/2017 LILLIAN PARSONS MD, Ot L97.412 NON-PRS CHR ULCER OF RIGHT HEEL AND MIDF 04/16/2017 LILLIAN PARSONS MD Ot L97.512 NON-PRS CHRONIC ULCER OTH PRT RIGHT FOOT 04/24/2017 Ot 185 MALIGN NEOPL PROSTATE 04/24/2017 GAVIN HENRIQUEZ MD Ot 280.9 IRON DEFIC ANEMIA NOS 04/24/2017 GAVIN HENRIQUEZ MD Ot 536.8 STOMACH FUNCTION DIS NEC 04/24/2017 GAVIN HENRIQUEZ MD Ot E934.0 ADV EFF IRON COMPOUNDS 04/24/2017 DOMINIC RICHARD FACC, ALI FACP CCDS Ot I10 ESSENTIAL (PRIMARY) HYPERTENSION 04/24/2017 DOMINIC RICHARD FACC, ALI FACP CCDS Ot I25.10 ATHSCL HEART DISEASE OF [place] CORONARY 04/24/2017 DOMINIC RICHARD FACC, ALI FACP CCDS Ot I70.213 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 04/24/2017 DOMINIC RICHARD FACC, JORGE A FACP CCDS Ot 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 04/24/2017 DOMINIC RICHARD FACC, JORGE A FACP CCDS Ot 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 04/24/2017 DOMINIC RICHARD FACC, JORGE A FACP CCDS Ot L97.429 NON-PRS CHRONIC ULCER OF LEFT HEEL AND M 04/24/2017 DOMINIC RICHARD FACC, ALI FACP CCDS Ot L97.529 NON-PRESSURE CHRONIC ULCER OTH PRT LEFT 04/24/2017 DOMINIC RICHARD FACC, JORGE A FACP CCDS Ot M10.9 GOUT, UNSPECIFIED 04/24/2017 DOMINIC RICHARD FACC, ALI FACP CCDS Ot R73.09 OTHER ABNORMAL GLUCOSE 04/24/2017 DOMINIC RICHARD FACC, ALI FACP CCDS Ot Z72.0 TOBACCO USE 04/24/2017 DOMINIC RICHARD FACC, ALI FACP CCDS Ot Z79.899 OTHER SHELTER (CURRENT) DRUG THERAPY 04/24/2017 DOMINIC RICHARD FACC, JORGE A FACP CCDS Ot Z95.5 PRESENCE OF CORONARY ANGIOPLASTY IMPLANT 05/01/2017 DOMINIC RICHARD FACC, ALI FACP CCDS Ot I10 ESSENTIAL (PRIMARY) HYPERTENSION 05/01/2017 DOMINIC RICHARD FACC, JORGE A FACP CCDS Ot I25.10 ATHSCL HEART DISEASE OF [place] CORONARY 05/01/2017 DOMINIC RICHARD FACC, ALI FACP CCDS Ot I70.213 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 05/01/2017 DOMINIC RICHARD FACC, JORGE A FACP CCDS Ot 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 05/01/2017 DOMINIC RICHARD FACC, ALI FACP CCDS Ot 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 05/01/2017 DOMINIC RICHARD FACC, ALI FACP CCDS Ot L97.429 NON-PRS CHRONIC ULCER OF LEFT HEEL AND M 05/01/2017 DOMINIC RICHARD FACC, ALI FACP CCDS Ot L97.529 NON-PRESSURE CHRONIC ULCER OTH PRT LEFT 05/01/2017 DOMINIC RICHARD FACC, JORGE A FACP CCDS Ot M10.9 GOUT, UNSPECIFIED 05/01/2017 DOMINIC RICHARD FACC, ALI FACP CCDS Ot R73.09 OTHER ABNORMAL GLUCOSE 05/01/2017 DOMINIC RICHARD [facility], ALI FACP CCDS Ot Z72.0 TOBACCO USE 05/01/2017 DOMINIC RICHARD [facility], ALI FACP CCDS Ot 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 05/01/2017 DOMINIC RICHARD [facility], ALI FACP CCDS Ot Z95.5 PRESENCE OF CORONARY ANGIOPLASTY IMPLANT 05/10/2017 INDERJIT DAWSON MANAGER CATH LAB Ot E11.621 TYPE 2 DIABETES MELLITUS WITH FOOT ULCER 05/10/2017 INDERJIT DAWSON MANAGER CATH LAB Ot E11.65 TYPE 2 DIABETES MELLITUS WITH HYPERGLYCE 05/10/2017 INDERJIT DAWSON MANAGER CATH LAB Ot 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 05/10/2017 INDERJIT DAWSON MANAGER CATH LAB Ot 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 05/10/2017 INDERJIT DAWSON MANAGER CATH LAB Ot I87.323 CHRONIC VENOUS HTN W INFLAMMATION OF [place] 05/10/2017 INDERJIT DAWSON MANAGER CATH LAB Ot L97.422 NON-PRS CHR ULCER OF LEFT HEEL AND MIDFO 05/10/2017 INDERJIT DAWSON MANAGER CATH LAB Ot L97.522 NON-PRS CHRONIC ULCER OTH PRT LEFT FOOT 05/16/2017 LILLIAN PARSONS MD Ot E11.621 TYPE 2 DIABETES MELLITUS WITH FOOT ULCER 05/16/2017 LILLIAN PARSONS MD Ot E11.65 TYPE 2 DIABETES MELLITUS WITH HYPERGLYCE 05/16/2017 LILLIAN PARSONS MD Ot 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 05/16/2017 LILLIAN PARSONS MD Ot 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 05/16/2017 LILLIAN PARSONS MD Ot I87.323 CHRONIC VENOUS HTN W INFLAMMATION OF [place] 05/16/2017 LILLIAN PARSONS MD Ot L97.422 NON-PRS CHR ULCER OF LEFT HEEL AND MIDFO 05/16/2017 LILLIAN PARSONS MD Ot L97.522 NON-PRS CHRONIC ULCER OTH PRT LEFT FOOT 05/23/2017 LILLIAN PARSONS MD Ot E11.621 TYPE 2 DIABETES MELLITUS WITH FOOT ULCER 05/23/2017 LILLIAN PARSONS MD Ot E11.65 TYPE 2 DIABETES MELLITUS WITH HYPERGLYCE 05/23/2017 LILLIAN PARSONS MD Ot 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 05/23/2017 LILLIAN PARSONS MD Ot 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 05/23/2017 LILLIAN PARSONS MD Ot I87.323 CHRONIC VENOUS HTN W INFLAMMATION OF [place] 05/23/2017 LILLIAN PARSONS MD Ot L97.422 NON-PRS CHR ULCER OF LEFT HEEL AND MIDFO 05/23/2017 LILLIAN PARSONS MD Ot L97.522 NON-PRS CHRONIC ULCER OTH PRT LEFT FOOT 05/23/2017 LILLIAN PARSONS MD, Ot E11.621 TYPE 2 DIABETES MELLITUS WITH FOOT ULCER 05/23/2017 LILLIAN PARSONS MD, Ot 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 05/23/2017 LILLIAN PARSONS MD, Ot 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 05/23/2017 LILLIAN PARSONS MD, Ot I87.323 CHRONIC VENOUS HTN W INFLAMMATION OF [place] 05/23/2017 LILLIAN PARSONS MD Ot L97.422 NON-PRS CHR ULCER OF LEFT HEEL AND MIDFO 05/23/2017 LILLIAN PARSONS MD Ot L97.522 NON-PRS CHRONIC ULCER OTH PRT LEFT FOOT 05/23/2017 LILLIAN PARSONS MD Ot R60.0 LOCALIZED EDEMA 06/01/2017 INDERJIT DAWSON MANAGER CATH LAB Ot E11.621 TYPE 2 DIABETES MELLITUS WITH FOOT ULCER 06/01/2017 INDERJIT DAWSON MANAGER CATH LAB Ot E11.65 TYPE 2 DIABETES MELLITUS WITH HYPERGLYCE 06/01/2017 INDERJIT DAWSON MANAGER CATH LAB Ot 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 06/01/2017 INDERJIT DAWSON APRN Ot 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 06/01/2017 INDERJIT DAWSON APRN Ot I87.323 CHRONIC VENOUS HTN W INFLAMMATION OF [place] 06/01/2017 INDERJIT DAWSON MANAGER CATH LAB Ot L97.422 NON-PRS CHR ULCER OF LEFT HEEL AND MIDFO 06/01/2017 INDERJIT DAWSON MANAGER CATH LAB Ot L97.522 NON-PRS CHRONIC ULCER OTH PRT LEFT FOOT 06/03/2017 LILLIAN PARSONS MD Ot E11.621 TYPE 2 DIABETES MELLITUS WITH FOOT ULCER 06/03/2017 LILLIAN PARSONS MD, Ot E11.65 TYPE 2 DIABETES MELLITUS WITH HYPERGLYCE 06/03/2017 LILLIAN PARSONS MD Ot 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 06/03/2017 LILLIAN PARSONS MD Ot 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 06/03/2017 LILLIAN PARSONS MD Ot I87.323 CHRONIC VENOUS HTN W INFLAMMATION OF [place] 06/03/2017 LILLIAN PARSONS MD Ot L97.422 NON-PRS CHR ULCER OF LEFT HEEL AND MIDFO 06/03/2017 LILLIAN PARSONS MD, Ot L97.522 NON-PRS CHRONIC ULCER OTH PRT LEFT FOOT 06/08/2017 LILLIAN PASRONS MD, Ot E11.621 TYPE 2 DIABETES MELLITUS WITH FOOT ULCER 06/08/2017 LILLIAN PARSONS MD, Ot E11.65 TYPE 2 DIABETES MELLITUS WITH HYPERGLYCE 06/08/2017 LILLIAN PARSONS MD Ot 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 06/08/2017 LILLIAN PARSONS MD Ot 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 06/08/2017 LILLIAN PARSONS MD Ot I87.323 CHRONIC VENOUS HTN W INFLAMMATION OF [place] 06/08/2017 LILLIAN PARSONS MD Ot L97.422 NON-PRS CHR ULCER OF LEFT HEEL AND MIDFO 06/08/2017 LILLIAN PARSONS MD Ot L97.522 NON-PRS CHRONIC ULCER OTH PRT LEFT FOOT 06/19/2017 LILLIAN PARSONS MD Ot E11.621 TYPE 2 DIABETES MELLITUS WITH FOOT ULCER 06/19/2017 LILLIAN PARSONS MD Ot E11.65 TYPE 2 DIABETES MELLITUS WITH HYPERGLYCE 06/19/2017 LILLIAN PARSONS MD Ot 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 06/19/2017 LILLIAN PARSONS MD Ot 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 06/19/2017 LILLIAN PARSONS MD Ot L97.422 NON-PRS CHR ULCER OF LEFT HEEL AND MIDFO 06/19/2017 LILLIAN PARSONS MD Ot L97.522 NON-PRS CHRONIC ULCER OTH PRT LEFT FOOT 06/25/2017 LILLIAN PARSONS MD Ot E11.621 TYPE 2 DIABETES MELLITUS WITH FOOT ULCER 06/25/2017 LILLIAN PARSONS MD Ot E11.65 TYPE 2 DIABETES MELLITUS WITH HYPERGLYCE 06/25/2017 LILLIAN PARSONS MD Ot 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 06/25/2017 LILLIAN PARSONS MD Ot 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 06/25/2017 LILLIAN PARSONS MD Ot I87.323 CHRONIC VENOUS HTN W INFLAMMATION OF [place] 06/25/2017 LILLIAN PARSONS MD Ot L97.422 NON-PRS CHR ULCER OF LEFT HEEL AND MIDFO 06/25/2017 LILLIAN PARSONS MD Ot L97.522 NON-PRS CHRONIC ULCER OTH PRT LEFT FOOT 06/28/2017 LILLIAN PARSONS MD, Ot E11.621 TYPE 2 DIABETES MELLITUS WITH FOOT ULCER 06/28/2017 LILLIAN PARSONS MD, Ot E11.65 TYPE 2 DIABETES MELLITUS WITH HYPERGLYCE 06/28/2017 LILLIAN PARSONS MD Ot 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 06/28/2017 LILLIAN PARSONS MD Ot 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 06/28/2017 LILLIAN PARSONS MD Ot I87.323 CHRONIC VENOUS HTN W INFLAMMATION OF [place] 06/28/2017 LILLIAN PARSONS MD Ot L97.422 NON-PRS CHR ULCER OF LEFT HEEL AND MIDFO 06/28/2017 LILLIAN PARSONS MD Ot L97.522 NON-PRS CHRONIC ULCER OTH PRT LEFT FOOT 07/03/2017 LILLIAN PARSONS MD Ot E11.621 TYPE 2 DIABETES MELLITUS WITH FOOT ULCER 07/03/2017 LILLIAN PARSONS MD Ot E11.65 TYPE 2 DIABETES MELLITUS WITH HYPERGLYCE 07/03/2017 LILLIAN PARSONS MD Ot 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 07/03/2017 LILLIAN PARSONS MD Ot 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 07/03/2017 LILLIAN PARSONS MD Ot I87.323 CHRONIC VENOUS HTN W INFLAMMATION OF [place] 07/03/2017 LILLIAN PARSONS MD Ot L97.422 NON-PRS CHR ULCER OF LEFT HEEL AND MIDFO 07/03/2017 LILLIAN PARSONS MD, Ot L97.522 NON-PRS CHRONIC ULCER OTH PRT LEFT FOOT 07/11/2017 LILLIAN PARSONS MD, Ot E11.621 TYPE 2 DIABETES MELLITUS WITH FOOT ULCER 07/11/2017 LILLIAN PARSONS MD, Ot E11.65 TYPE 2 DIABETES MELLITUS WITH HYPERGLYCE 07/11/2017 LILLIAN PARSONS MD Ot 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 07/11/2017 LILLIAN PARSONS MD Ot 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 07/11/2017 LILLIAN PARSONS MD, Ot I87.323 CHRONIC VENOUS HTN W INFLAMMATION OF [place]ERN[place] 07/11/2017 LILLIAN PARSONS MD, Ot L97.422 NON-PRS CHR ULCER OF LEFT HEEL AND MIDFO 07/11/2017 LILLIAN PARSONS MD, Ot L97.522 NON-PRS CHRONIC ULCER OTH PRT LEFT FOOT 07/11/2017 LILLIAN PARSONS MD, Ot E11.621 TYPE 2 DIABETES MELLITUS WITH FOOT ULCER 07/11/2017 LILLIAN PARSONS MD, Ot E11.65 TYPE 2 DIABETES MELLITUS WITH HYPERGLYCE 07/11/2017 LILLIAN PARSONS MD Ot 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 07/11/2017 LILLIAN PARSONS MD, Ot 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 07/11/2017 LILLIAN PARSONS MD Ot L97.422 NON-PRS CHR ULCER OF LEFT HEEL AND MIDFO 07/11/2017 LILLIAN PARSONS MD Ot L97.522 NON-PRS CHRONIC ULCER OTH PRT LEFT FOOT 07/19/2017 LILLIAN PARSONS MD, Ot E11.621 TYPE 2 DIABETES MELLITUS WITH FOOT ULCER 07/19/2017 LILLIAN PARSONS MD Ot E11.65 TYPE 2 DIABETES MELLITUS WITH HYPERGLYCE 07/19/2017 LILLIAN PARSONS MD Ot 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 07/19/2017 LILLIAN PARSONS MD Ot 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 07/19/2017 LILLIAN PARSONS MD Ot I87.323 CHRONIC VENOUS HTN W INFLAMMATION OF [place]ERN[place] 07/19/2017 LILLIAN PARSONS MD Ot L97.422 NON-PRS CHR ULCER OF LEFT HEEL AND MIDFO 07/19/2017 LILLIAN PARSONS MD, Ot L97.522 NON-PRS CHRONIC ULCER OTH PRT LEFT FOOT 07/26/2017 LILLIAN PARSONS MD, Ot E11.621 TYPE 2 DIABETES MELLITUS WITH FOOT ULCER 07/26/2017 LILLIAN PARSONS MD Ot E11.65 TYPE 2 DIABETES MELLITUS WITH HYPERGLYCE 07/26/2017 LILLIAN PARSONS MD Ot 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 07/26/2017 LILLIAN PARSONS MD Ot 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 07/26/2017 LILLIAN PARSONS MD, Ot I87.323 CHRONIC VENOUS HTN W INFLAMMATION OF BERNICE 07/26/2017 LILLIAN PARSONS MD, Ot L97.422 NON-PRS CHR ULCER OF LEFT HEEL AND MIDFO 07/26/2017 LILLIAN PARSONS MD, Ot L97.522 NON-PRS CHRONIC ULCER OTH PRT LEFT FOOT 08/03/2017 LILLIAN PARSONS MD, Ot E11.621 TYPE 2 DIABETES MELLITUS WITH FOOT ULCER 08/03/2017 LILLIAN PARSONS MD, Ot 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 08/03/2017 LILLIAN PARSONS MD Ot I87.323 CHRONIC VENOUS HTN W INFLAMMATION OF BERNICE 08/03/2017 LILLIAN PARSONS MD, Ot L97.522 NON-PRS CHRONIC ULCER OTH PRT LEFT FOOT 08/10/2017 LILLIAN PARSONS MD, Ot E11.621 TYPE 2 DIABETES MELLITUS WITH FOOT ULCER 08/10/2017 LILLIAN PARSONS MD Ot 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 08/10/2017 LILLIAN PARSONS MD Ot I87.323 CHRONIC VENOUS HTN W INFLAMMATION OF BERNICE 08/10/2017 LILLIAN PARSONS MD, Ot L97.522 NON-PRS CHRONIC ULCER OTH PRT LEFT FOOT 08/13/2017 LILLIAN PARSONS MD, Ot E11.621 TYPE 2 DIABETES MELLITUS WITH FOOT ULCER 08/13/2017 LILLIAN PARSONS MD Ot I87.323 CHRONIC VENOUS HTN W INFLAMMATION OF BERNICE 08/13/2017 LILLIAN PARSONS MD Ot L97.522 NON-PRS CHRONIC ULCER OTH PRT LEFT FOOT 08/15/2017 LILLIAN PARSONS MD Ot E11.621 TYPE 2 DIABETES MELLITUS WITH FOOT ULCER 08/15/2017 LILLIAN PARSONS MD Ot 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 08/15/2017 LILLIAN PARSONS MD Ot I87.323 CHRONIC VENOUS HTN W INFLAMMATION OF BERNICE 08/15/2017 LILLIAN PARSONS MD, Ot L97.522 NON-PRS CHRONIC ULCER OTH PRT LEFT FOOT 08/21/2017 LILLIAN PARSONS MD, Ot E11.621 TYPE 2 DIABETES MELLITUS WITH FOOT ULCER 08/21/2017 LILLIAN PARSONS MD, Ot 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 08/21/2017 LILLIAN PARSONS MD, Ot I87.323 CHRONIC VENOUS HTN W INFLAMMATION OF BERNICE 08/21/2017 LILLIAN PARSONS MD Ot L97.522 NON-PRS CHRONIC ULCER OTH PRT LEFT FOOT 08/21/2017 LILLIAN PARSONS MD, Ot E11.621 TYPE 2 DIABETES MELLITUS WITH FOOT ULCER 08/21/2017 LILLIAN PARSONS MD Ot I87.323 CHRONIC VENOUS HTN W INFLAMMATION OF BERNICE 08/21/2017 LILLIAN PARSONS MD Ot L97.522 NON-PRS CHRONIC ULCER OTH PRT LEFT FOOT 08/30/2017 LILLIAN PARSONS MD Ot E11.621 TYPE 2 DIABETES MELLITUS WITH FOOT ULCER 08/30/2017 LILLIAN PARSONS MD Ot I87.323 CHRONIC VENOUS HTN W INFLAMMATION OF BERNICE 08/30/2017 LILLIAN PARSONS MD Ot L97.522 NON-PRS CHRONIC ULCER OTH PRT LEFT FOOT 08/30/2017 LILLIAN PARSONS MD Ot E11.621 TYPE 2 DIABETES MELLITUS WITH FOOT ULCER 08/30/2017 LILLIAN PARSONS MD Ot I87.323 CHRONIC VENOUS HTN W INFLAMMATION OF BERNICE 08/30/2017 LILLIAN PARSONS MD Ot L97.522 NON-PRS CHRONIC ULCER OTH PRT LEFT FOOT 09/05/2017 LILLIAN PARSONS MD Ot E11.621 TYPE 2 DIABETES MELLITUS WITH FOOT ULCER 09/05/2017 LILLIAN PARSONS MD Ot I87.323 CHRONIC VENOUS HTN W INFLAMMATION OF BERNICE 09/05/2017 LILLIAN PARSONS MD Ot L97.522 NON-PRS CHRONIC ULCER OTH PRT LEFT FOOT 09/07/2017 LILLIAN PARSONS MD Ot E11.621 TYPE 2 DIABETES MELLITUS WITH FOOT ULCER 09/07/2017 LILLIAN PARSONS MD Ot I87.323 CHRONIC VENOUS HTN W INFLAMMATION OF BERNICE 09/07/2017 LILLIAN PARSONS MD, Ot L97.522 NON-PRS CHRONIC ULCER OTH PRT LEFT FOOT 09/12/2017 LILLIAN PARSONS MD, Ot E11.621 TYPE 2 DIABETES MELLITUS WITH FOOT ULCER 09/12/2017 LILLIAN PARSONS MD Ot I87.323 CHRONIC VENOUS HTN W INFLAMMATION OF BERNICE 09/12/2017 LILLIAN PARSONS MD, Ot L97.522 NON-PRS CHRONIC ULCER OTH PRT LEFT FOOT 09/19/2017 LILLIAN PARSONS MD, Ot E11.621 TYPE 2 DIABETES MELLITUS WITH FOOT ULCER 09/19/2017 LILLIAN PARSONS MD, Ot I87.323 CHRONIC VENOUS HTN W INFLAMMATION OF BERNICE 09/19/2017 LILLIAN PARSONS MD, Ot L97.522 NON-PRS CHRONIC ULCER OTH PRT LEFT FOOT 09/26/2017 LILLIAN PARSONS MD, Ot E11.621 TYPE 2 DIABETES MELLITUS WITH FOOT ULCER 09/26/2017 LILLIAN PARSONS MD, Ot I87.323 CHRONIC VENOUS HTN W INFLAMMATION OF BERNICE 09/26/2017 LILLIAN PARSONS MD, Ot L97.522 NON-PRS CHRONIC ULCER OTH PRT LEFT FOOT 02/22/2018 RAYMUNDO HERNANDEZ APRN Ot E80.6 OTHER DISORDERS OF BILIRUBIN METABOLISM 02/22/2018 RAYMUNDO HERNANDEZ APRN Ot K82.8 OTHER SPECIFIED DISEASES OF GALLBLADDER 02/26/2018 Ot 185 MALIGN NEOPL PROSTATE 02/26/2018 GAVIN HENRIQUEZ MD Ot 280.9 IRON DEFIC ANEMIA NOS 02/26/2018 GAVIN HENRIQUEZ MD Ot 536.8 STOMACH FUNCTION DIS NEC 02/26/2018 GAVIN HENRIQUEZ MD Ot E934.0 ADV EFF IRON COMPOUNDS 02/26/2018 LILLIAN PARSONS MD, Ot E11.621 TYPE 2 DIABETES MELLITUS WITH FOOT ULCER 02/26/2018 LILLIAN PARSONS MD Ot E11.65 TYPE 2 DIABETES MELLITUS WITH HYPERGLYCE 02/26/2018 LILLIAN PARSONS MD Ot 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 02/26/2018 LILLIAN PARSONS MD, Ot 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 02/26/2018 LILLIAN PARSONS MD Ot I87.323 CHRONIC VENOUS HTN W INFLAMMATION OF BENRICE 02/26/2018 LILLIAN PARSONS MD Ot L97.422 NON-PRS CHR ULCER OF LEFT HEEL AND MIDFO 02/26/2018 LILLIAN PARSONS MD, Ot L97.522 NON-PRS CHRONIC ULCER OTH PRT LEFT FOOT 02/26/2018 LILLIAN PARSONS MD Ot E11.621 TYPE 2 DIABETES MELLITUS WITH FOOT ULCER 02/26/2018 LILLIAN PARSONS MD Ot E11.65 TYPE 2 DIABETES MELLITUS WITH HYPERGLYCE 02/26/2018 LILLIAN PARSONS MD Ot 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 02/26/2018 LILLIAN PARSONS MD Ot 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 02/26/2018 LILLIAN PARSONS MD, Ot I87.323 CHRONIC VENOUS HTN W INFLAMMATION OF BERNICE 02/26/2018 LILLIAN PARSONS MD Ot L97.422 NON-PRS CHR ULCER OF LEFT HEEL AND MIDFO 02/26/2018 LILLIAN PARSONS MD, Ot L97.522 NON-PRS CHRONIC ULCER OTH PRT LEFT FOOT 02/26/2018 LILLIAN PARSONS MD, Ot E11.621 TYPE 2 DIABETES MELLITUS WITH FOOT ULCER 02/26/2018 LILLIAN PARSONS MD Ot 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 02/26/2018 LILLIAN PARSONS MD Ot 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 02/26/2018 LILLIAN PARSONS MD Ot I87.323 CHRONIC VENOUS HTN W INFLAMMATION OF BERNICE 02/26/2018 LILLIAN PARSONS MD Ot L97.422 NON-PRS CHR ULCER OF LEFT HEEL AND MIDFO 02/26/2018 LILLIAN PARSONS MD, Ot L97.522 NON-PRS CHRONIC ULCER OTH PRT LEFT FOOT 02/26/2018 LILLIAN PARSONS MD Ot R60.0 LOCALIZED EDEMA 02/26/2018 INDERJIT DAWSON APRN Ot E11.621 TYPE 2 DIABETES MELLITUS WITH FOOT ULCER 02/26/2018 INDERJIT DAWSON MANAGER CATH LAB Ot E11.65 TYPE 2 DIABETES MELLITUS WITH HYPERGLYCE 02/26/2018 INDERJIT DAWSON MANAGER CATH LAB Ot 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 02/26/2018 INDERJIT DAWSON MANAGER CATH LAB Ot 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 02/26/2018 INDERJIT DAWSON MANAGER CATH LAB Ot I87.323 CHRONIC VENOUS HTN W INFLAMMATION OF BERNICE 02/26/2018 INDERJIT DAWSON MANAGER CATH LAB Ot L97.422 NON-PRS CHR ULCER OF LEFT HEEL AND MIDFO 02/26/2018 INDERJIT DAWSON MANAGER CATH LAB Ot L97.522 NON-PRS CHRONIC ULCER OTH PRT LEFT FOOT 02/26/2018 LILLIAN PARSONS MD, Ot E11.621 TYPE 2 DIABETES MELLITUS WITH FOOT ULCER 02/26/2018 LILLIAN PARSONS MD, Ot E11.65 TYPE 2 DIABETES MELLITUS WITH HYPERGLYCE 02/26/2018 LILLIAN PARSONS MD Ot 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 02/26/2018 LILLIAN PARSONS MD Ot 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 02/26/2018 LILLIAN PARSONS MD Ot I87.323 CHRONIC VENOUS HTN W INFLAMMATION OF BERNICE 02/26/2018 LILLIAN PARSONS MD Ot L97.422 NON-PRS CHR ULCER OF LEFT HEEL AND MIDFO 02/26/2018 LILLIAN PARSONS MD Ot L97.522 NON-PRS CHRONIC ULCER OTH PRT LEFT FOOT 02/26/2018 LILLIAN PARSONS MD Ot E11.621 TYPE 2 DIABETES MELLITUS WITH FOOT ULCER 02/26/2018 LILLIAN PARSONS MD, Ot E11.65 TYPE 2 DIABETES MELLITUS WITH HYPERGLYCE 02/26/2018 LILLIAN PARSONS MD Ot 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 02/26/2018 LILLIAN PARSONS MD Ot 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 02/26/2018 LILLIAN PARSONS MD Ot I87.323 CHRONIC VENOUS HTN W INFLAMMATION OF BERNICE 02/26/2018 LILLIAN PARSONS MD Ot L97.422 NON-PRS CHR ULCER OF LEFT HEEL AND MIDFO 02/26/2018 LILLIAN PARSONS MD Ot L97.522 NON-PRS CHRONIC ULCER OTH PRT LEFT FOOT 02/26/2018 LILLIAN PARSONS MD Ot E11.621 TYPE 2 DIABETES MELLITUS WITH FOOT ULCER 02/26/2018 LILLIAN PARSONS MD Ot E11.65 TYPE 2 DIABETES MELLITUS WITH HYPERGLYCE 02/26/2018 LILLIAN PARSONS MD Ot 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 02/26/2018 LILLIAN PARSONS MD Ot 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 02/26/2018 LILLIAN PARSONS MD Ot I87.323 CHRONIC VENOUS HTN W INFLAMMATION OF BERNICE 02/26/2018 LILLIAN PARSONS MD Ot L97.422 NON-PRS CHR ULCER OF LEFT HEEL AND MIDFO 02/26/2018 LILLIAN PARSONS MD Ot L97.522 NON-PRS CHRONIC ULCER OTH PRT LEFT FOOT 02/26/2018 LILLIAN PARSONS MD, Ot E11.621 TYPE 2 DIABETES MELLITUS WITH FOOT ULCER 02/26/2018 LILLIAN PARSONS MD, Ot E11.65 TYPE 2 DIABETES MELLITUS WITH HYPERGLYCE 02/26/2018 LILLIAN PARSONS MD Ot 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 02/26/2018 LILLIAN PARSONS MD Ot 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 02/26/2018 LILLIAN PARSONS MD Ot I87.323 CHRONIC VENOUS HTN W INFLAMMATION OF BERNICE 02/26/2018 LILLIAN PARSONS MD Ot L97.422 NON-PRS CHR ULCER OF LEFT HEEL AND MIDFO 02/26/2018 LILLIAN PARSONS MD Ot L97.522 NON-PRS CHRONIC ULCER OTH PRT LEFT FOOT 02/26/2018 LILLIAN PARSONS MD Ot E11.621 TYPE 2 DIABETES MELLITUS WITH FOOT ULCER 02/26/2018 LILLIAN PARSONS MD Ot E11.65 TYPE 2 DIABETES MELLITUS WITH HYPERGLYCE 02/26/2018 LILLIAN PARSONS MD Ot 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 02/26/2018 LILLIAN PARSONS MD Ot 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 02/26/2018 LILLIAN PARSONS MD Ot L97.422 NON-PRS CHR ULCER OF LEFT HEEL AND MIDFO 02/26/2018 LILLIAN PARSONS MD Ot L97.522 NON-PRS CHRONIC ULCER OTH PRT LEFT FOOT 02/26/2018 LILLIAN PARSONS MD Ot E11.621 TYPE 2 DIABETES MELLITUS WITH FOOT ULCER 02/26/2018 LILLIAN PARSONS MD Ot E11.65 TYPE 2 DIABETES MELLITUS WITH HYPERGLYCE 02/26/2018 LILLIAN PARSONS MD Ot 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 02/26/2018 LILLIAN PARSONS MD Ot 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 02/26/2018 LILLIAN PARSONS MD Ot I87.323 CHRONIC VENOUS HTN W INFLAMMATION OF BERNICE 02/26/2018 LILLIAN PARSONS MD Ot L97.422 NON-PRS CHR ULCER OF LEFT HEEL AND MIDFO 02/26/2018 LILLIAN PARSONS MD Ot L97.522 NON-PRS CHRONIC ULCER OTH PRT LEFT FOOT 02/26/2018 LILLIAN PARSONS MD, Ot E11.621 TYPE 2 DIABETES MELLITUS WITH FOOT ULCER 02/26/2018 LILLIAN PARSONS MD, Ot E11.65 TYPE 2 DIABETES MELLITUS WITH HYPERGLYCE 02/26/2018 LILLIAN PARSONS MD Ot 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 02/26/2018 LILLIAN PARSONS MD Ot 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 02/26/2018 LILLIAN PARSONS MD Ot I87.323 CHRONIC VENOUS HTN W INFLAMMATION OF BERNICE 02/26/2018 LILLIAN PARSONS MD Ot L97.422 NON-PRS CHR ULCER OF LEFT HEEL AND MIDFO 02/26/2018 LILLIAN PARSONS MD Ot L97.522 NON-PRS CHRONIC ULCER OTH PRT LEFT FOOT 02/26/2018 LILLIAN PARSONS MD Ot E11.621 TYPE 2 DIABETES MELLITUS WITH FOOT ULCER 02/26/2018 LILLIAN PARSONS MD Ot 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 02/26/2018 LILLIAN PARSONS MD Ot I87.323 CHRONIC VENOUS HTN W INFLAMMATION OF BERNICE 02/26/2018 LILLIAN PARSONS MD Ot L97.522 NON-PRS CHRONIC ULCER OTH PRT LEFT FOOT 02/26/2018 LILLIAN PARSONS MD Ot E11.621 TYPE 2 DIABETES MELLITUS WITH FOOT ULCER 02/26/2018 LILLIAN PARSONS MD Ot 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 02/26/2018 LILLIAN PARSONS MD Ot I87.323 CHRONIC VENOUS HTN W INFLAMMATION OF BERNICE 02/26/2018 LILLIAN PARSONS MD Ot L97.522 NON-PRS CHRONIC ULCER OTH PRT LEFT FOOT 02/26/2018 LILLIAN PARSONS MD Ot E11.621 TYPE 2 DIABETES MELLITUS WITH FOOT ULCER 02/26/2018 LILLIAN PARSONS MD Ot 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 02/26/2018 LILLIAN PARSONS MD Ot I87.323 CHRONIC VENOUS HTN W INFLAMMATION OF BERNICE 02/26/2018 LILLIAN PARSONS MD Ot L97.522 NON-PRS CHRONIC ULCER OTH PRT LEFT FOOT 02/26/2018 LILLIAN PARSONS MD Ot E11.621 TYPE 2 DIABETES MELLITUS WITH FOOT ULCER 02/26/2018 LILLIAN PARSONS MD, Ot 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 02/26/2018 LILLIAN PARSONS MD Ot I87.323 CHRONIC VENOUS HTN W INFLAMMATION OF BERNICE 02/26/2018 LILLIAN PARSONS MD Ot L97.522 NON-PRS CHRONIC ULCER OTH PRT LEFT FOOT 02/26/2018 LILLIAN PARSONS MD Ot E11.621 TYPE 2 DIABETES MELLITUS WITH FOOT ULCER 02/26/2018 LILLIAN PARSONS MD Ot I87.323 CHRONIC VENOUS HTN W INFLAMMATION OF BERNICE 02/26/2018 LILLIAN PARSONS MD Ot L97.522 NON-PRS CHRONIC ULCER OTH PRT LEFT FOOT 02/26/2018 LILLIAN PARSONS MD Ot E11.621 TYPE 2 DIABETES MELLITUS WITH FOOT ULCER 02/26/2018 LILLIAN PARSONS MD Ot I87.323 CHRONIC VENOUS HTN W INFLAMMATION OF BERNICE 02/26/2018 LILLIAN PARSONS MD Ot L97.522 NON-PRS CHRONIC ULCER OTH PRT LEFT FOOT 02/26/2018 LILLIAN PARSONS MD Ot E11.621 TYPE 2 DIABETES MELLITUS WITH FOOT ULCER 02/26/2018 LILLIAN PARSONS MD Ot I87.323 CHRONIC VENOUS HTN W INFLAMMATION OF BERNICE 02/26/2018 LILLIAN PARSONS MD Ot L97.522 NON-PRS CHRONIC ULCER OTH PRT LEFT FOOT 02/26/2018 LILLIAN PARSONS MD Ot E11.621 TYPE 2 DIABETES MELLITUS WITH FOOT ULCER 02/26/2018 LILLIAN PARSONS MD Ot I87.323 CHRONIC VENOUS HTN W INFLAMMATION OF BERNICE 02/26/2018 LILLIAN PARSNOS MD Ot L97.522 NON-PRS CHRONIC ULCER OTH PRT LEFT FOOT 02/26/2018 LILLIAN PARSONS MD Ot E11.621 TYPE 2 DIABETES MELLITUS WITH FOOT ULCER 02/26/2018 LILLIAN PARSONS MD Ot I87.323 CHRONIC VENOUS HTN W INFLAMMATION OF BERNICE 02/26/2018 LILLIAN PARSONS MD Ot L97.522 NON-PRS CHRONIC ULCER OTH PRT LEFT FOOT 02/26/2018 LILLIAN PARSONS MD Ot E11.621 TYPE 2 DIABETES MELLITUS WITH FOOT ULCER 02/26/2018 LILLIAN PARSONS MD Ot I87.323 CHRONIC VENOUS HTN W INFLAMMATION OF BERNICE 02/26/2018 LILLIAN PARSONS MD Ot L97.522 NON-PRS CHRONIC ULCER OTH PRT LEFT FOOT 02/26/2018 RAYMUNDO HERNANDEZ APRN Ot E80.6 OTHER DISORDERS OF BILIRUBIN METABOLISM 02/26/2018 RAYMUNDO HERNANDEZ APRN Ot K82.8 OTHER SPECIFIED DISEASES OF GALLBLADDER 03/01/2018 CONCEPCION RICHARD, GARRETT Ot C61 MALIGNANT NEOPLASM OF PROSTATE 03/06/2018 RODOLFO RICO DO Ot Z01.818 ENCOUNTER FOR OTHER PREPROCEDURAL EXAMIN 03/07/2018 RODOLFO RICO DO Ot E11.43 TYPE 2 DIABETES W DIABETIC AUTONOMIC (PO 03/07/2018 RODOLFO RICO DO Ot G47.33 OBSTRUCTIVE SLEEP APNEA (ADULT) (PEDIATR 03/07/2018 RODOLFO RICO DO Ot I10 ESSENTIAL (PRIMARY) HYPERTENSION 03/07/2018 RODOLFO RICO DO Ot I25.10 ATHSCL HEART DISEASE OF [place] CORONARY 03/07/2018 RODOLFO RICO DO Ot K80.44 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44 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 03/12/2018 RICO DO RODOLFO D Ot Z79.82 SHELTER (CURRENT) USE OF ASPIRIN 03/12/2018 RICO DO RODOLFO D Ot Z79.899 OTHER SHELTER (CURRENT) DRUG THERAPY 03/12/2018 RICO DO RODOLFO D Ot Z95.5 PRESENCE OF CORONARY ANGIOPLASTY IMPLANT 03/13/2018 RAYMUNDO HERNANDEZ APRN Ot E80.6 OTHER DISORDERS OF BILIRUBIN METABOLISM 03/13/2018 RAYMUNDO HERNANDEZ APRN Ot K82.8 OTHER SPECIFIED DISEASES OF GALLBLADDER 03/14/2018 RODOLFO RICO DO D Ot E11.43 TYPE 2 DIABETES W DIABETIC AUTONOMIC (PO 03/14/2018 RODOLFO RICO DO D Ot G47.33 OBSTRUCTIVE SLEEP APNEA (ADULT) (PEDIATR 03/14/2018 RICO DO, RODOLFO D Ot I10 ESSENTIAL (PRIMARY) HYPERTENSION 03/14/2018 RICO DOUNATT D Ot I25.10 ATHSCL HEART DISEASE OF [place] CORONARY 03/14/2018 RODOLFO RICO DO D Ot K80.44 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 03/14/2018 RODOLFO RICO DO D Ot 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 MANAGER 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 03/14/2018 UNA RICO DOTT D Ot Z79.899 OTHER SHELTER (CURRENT) DRUG THERAPY 03/14/2018 UNA RICO DOTT D Ot Z95.5 PRESENCE OF CORONARY ANGIOPLASTY IMPLANT 03/21/2018 GARRETT JAVIER MD Ot C61 MALIGNANT NEOPLASM OF PROSTATE 03/28/2018 GARRETT JAVIER MD Ot C61 MALIGNANT NEOPLASM OF PROSTATE 03/28/2018 GARRETT JAVIER MD Ot E03.9 HYPOTHYROIDISM, UNSPECIFIED 03/28/2018 GARRETT JAVIER MD Ot 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 03/28/2018 GARRETT JAVIER MD Ot I10 ESSENTIAL (PRIMARY) HYPERTENSION 03/28/2018 GARRETT JAVIER MD Ot I25.10 ATHSCL HEART DISEASE OF [place] CORONARY 03/28/2018 GARRETT JAVIER MD Ot I73.9 PERIPHERAL VASCULAR DISEASE, UNSPECIFIED 03/28/2018 GARRETT JAVIER MD Ot K80.20 CALCULUS OF GALLBLADDER W/O CHOLECYSTITI 03/28/2018 GARRETT JAVIER MD Ot N30.90 CYSTITIS, UNSPECIFIED WITHOUT HEMATURIA 03/28/2018 GARRETT JAVIER MD Ot Z92.3 PERSONAL HISTORY OF IRRADIATION 04/09/2018 RODOLFO RICO DO Ot E11.43 TYPE 2 DIABETES W DIABETIC AUTONOMIC (PO 04/09/2018 RODOLFO RICO DO D Ot G47.33 OBSTRUCTIVE SLEEP APNEA (ADULT) (PEDIATR 04/09/2018 RODOLFO RICO DO D Ot I10 ESSENTIAL (PRIMARY) HYPERTENSION 04/09/2018 RODOLFO RICO DO Ot I25.10 ATHSCL HEART DISEASE OF [place] CORONARY 04/09/2018 RODOLFO RICO DO Ot K80.44 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 04/09/2018 RODOLFO RICO DO Ot Z79.82 SHELTER (CURRENT) USE OF ASPIRIN 04/09/2018 RODOLFO RICO DO Ot Z79.899 OTHER SHELTER (CURRENT) DRUG THERAPY 04/09/2018 RODOLFO RICO DO Ot Z95.5 PRESENCE OF CORONARY ANGIOPLASTY IMPLANT 05/28/2018 GARRETT JAVIER MD Ot C61 MALIGNANT NEOPLASM OF PROSTATE 05/28/2018 GARRETT JAVIER MD Ot E03.9 HYPOTHYROIDISM, UNSPECIFIED 05/28/2018 GARRETT JAVIER MD Ot 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 05/28/2018 GARRETT JAVIER MD Ot I10 ESSENTIAL (PRIMARY) HYPERTENSION 05/28/2018 GARRETT JAVIER MD Ot I25.10 ATHSCL HEART DISEASE OF [place] CORONARY 05/28/2018 GARRETT JAVIER MD Ot I73.9 PERIPHERAL VASCULAR DISEASE, UNSPECIFIED 05/28/2018 GARRETT JAVIER MD Ot K80.20 CALCULUS OF GALLBLADDER W/O CHOLECYSTITI 05/28/2018 GARRETT JAVIER MD Ot N30.90 CYSTITIS, UNSPECIFIED WITHOUT HEMATURIA 05/28/2018 GARRETT JAVIER MD Ot Z92.3 PERSONAL HISTORY OF IRRADIATION 05/29/2018 GARRETT JAVIER MD Ot C61 MALIGNANT NEOPLASM OF PROSTATE 05/29/2018 GARRETT JAVIER MD Ot E03.9 HYPOTHYROIDISM, UNSPECIFIED 05/29/2018 GARRETT JAVIER MD Ot 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 05/29/2018 GARRETT JAVIER MD Ot I10 ESSENTIAL (PRIMARY) HYPERTENSION 05/29/2018 GARRETT JAVIER MD Ot I25.10 ATHSCL HEART DISEASE OF [place] CORONARY 05/29/2018 GARRETT JAVIER MD Ot I73.9 PERIPHERAL VASCULAR DISEASE, UNSPECIFIED 05/29/2018 CRISTIANO JAVIER MDNER Ot K80.20 CALCULUS OF GALLBLADDER W/O CHOLECYSTITI 05/29/2018 GARRETT JAVIER MD Ot N30.90 CYSTITIS, UNSPECIFIED WITHOUT HEMATURIA 05/29/2018 CRISTIANO JAVIER MDNER Ot Z92.3 PERSONAL HISTORY OF IRRADIATION 09/13/2018 GARRETT JAVIER MD Ot C61 MALIGNANT NEOPLASM OF PROSTATE 09/13/2018 GARRETT JAVIER MD Ot E03.9 HYPOTHYROIDISM, UNSPECIFIED 09/13/2018 GARRETT JAVIER MD Ot 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 09/13/2018 GARRETT JAVIER MD Ot I10 ESSENTIAL (PRIMARY) HYPERTENSION 09/13/2018 GARRETT JAVIER MD Ot I25.10 ATHSCL HEART DISEASE OF [place] CORONARY 09/13/2018 GARRETT JAVIER MD Ot I73.9 PERIPHERAL VASCULAR DISEASE, UNSPECIFIED 09/13/2018 GARRETT JAVIER MD Ot Z92.3 PERSONAL HISTORY OF IRRADIATION 10/22/2018 RAYMUNDO HERNANDEZ MANAGER CATH LAB Ot G47.33 OBSTRUCTIVE SLEEP APNEA (ADULT) (PEDIATR 10/25/2018 RAYMUNDO HERNANDEZ MANAGER CATH LAB Ot G47.10 HYPERSOMNIA, UNSPECIFIED 10/25/2018 RAYMUNDO HERNANDEZ MANAGER CATH LAB Ot G47.33 OBSTRUCTIVE SLEEP APNEA (ADULT) (PEDIATR 10/25/2018 RAYMUNDO HERNANDEZ MANAGER CATH LAB Ot I10 ESSENTIAL (PRIMARY) HYPERTENSION 10/25/2018 RAYMUNDO HERNANDEZ MANAGER CATH LAB Ot R06.83 SNORING 10/28/2018 RAYMUNDO HERNANDEZ APRN Ot G47.10 HYPERSOMNIA, UNSPECIFIED 10/28/2018 RAYMUNDO HERNANDEZ MANAGER CATH LAB Ot G47.33 OBSTRUCTIVE SLEEP APNEA (ADULT) (PEDIATR 10/28/2018 RAYMUNDO HERNANDEZ MANAGER CATH LAB Ot I10 ESSENTIAL (PRIMARY) HYPERTENSION 10/28/2018 RAYMUNDO HERNANDEZ APRN Ot R06.83 SNORING 11/06/2018 GARRETT JAVIER MD Ot C61 MALIGNANT NEOPLASM OF PROSTATE 11/06/2018 GARRETT JAVIER MD Ot E03.9 HYPOTHYROIDISM, UNSPECIFIED 11/06/2018 CRISTIANO JAVIER MDNER Ot 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 11/06/2018 GARRETT JAVIER MD Ot I10 ESSENTIAL (PRIMARY) HYPERTENSION 11/06/2018 GARRETT JAVIER MD Ot I25.10 ATHSCL HEART DISEASE OF [place] CORONARY 11/06/2018 CRISTIANO JAVIER MDNER Ot I73.9 PERIPHERAL VASCULAR DISEASE, UNSPECIFIED 11/06/2018 CRISTIANO JAVIER MDNER Ot Z92.3 PERSONAL HISTORY OF IRRADIATION 11/06/2018 GARRETT JAVIER MD Ot C61 MALIGNANT NEOPLASM OF PROSTATE 11/06/2018 GARRETT JAVIER MD Ot E03.9 HYPOTHYROIDISM, UNSPECIFIED 11/06/2018 GARRETT JAVIER MD Ot 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 11/06/2018 GARRETT JAVIER MD Ot I10 ESSENTIAL (PRIMARY) HYPERTENSION 11/06/2018 CRISTIANO JAVIER MDNER Ot I25.10 ATHSCL HEART DISEASE OF [place] CORONARY 11/06/2018 AGRRETT JAVIER MD Ot I73.9 PERIPHERAL VASCULAR DISEASE, UNSPECIFIED 11/06/2018 CRISTIANO JAVIER MDNER Ot Z92.3 PERSONAL HISTORY OF IRRADIATION 11/12/2018 GARRETT JAVIER MD Ot C61 MALIGNANT NEOPLASM OF PROSTATE 11/12/2018 GARRETT JAVIER MD Ot E03.9 HYPOTHYROIDISM, UNSPECIFIED 11/12/2018 GARRETT JAVIER MD Ot 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 11/12/2018 GARRETT JAVIER MD Ot I10 ESSENTIAL (PRIMARY) HYPERTENSION 11/12/2018 GARRETT JAVIER MD Ot I25.10 ATHSCL HEART DISEASE OF [place] CORONARY 11/12/2018 GARRETT JAVIER MD Ot I73.9 PERIPHERAL VASCULAR DISEASE, UNSPECIFIED 11/12/2018 CRISTIANO JAVIER MDNER Ot Z92.3 PERSONAL HISTORY OF IRRADIATION 11/13/2018 GARRETT JAVIER MD Ot C61 MALIGNANT NEOPLASM OF PROSTATE 11/13/2018 GARRETT JAVIER MD Ot D64.9 ANEMIA, UNSPECIFIED 11/13/2018 GARRETT JAVIER MD Ot E03.9 HYPOTHYROIDISM, UNSPECIFIED 11/13/2018 CRISTIANO JAVIER MDNER Ot 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 11/13/2018 GARRETT JAVIER MD Ot I10 ESSENTIAL (PRIMARY) HYPERTENSION 11/13/2018 GARRETT JAVIER MD Ot I25.10 ATHSCL HEART DISEASE OF [place] CORONARY 11/13/2018 GARRETT JAVIER MD Ot I73.9 PERIPHERAL VASCULAR DISEASE, UNSPECIFIED 11/13/2018 GARRETT JAVIER MD Ot Z79.82 SHELTER (CURRENT) USE OF ASPIRIN 11/13/2018 GARRETT JAVIER MD Ot 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 11/13/2018 GARRETT JAVIER MD Ot Z92.3 PERSONAL HISTORY OF IRRADIATION 11/21/2018 GARRETT JAVIER MD Ot C61 MALIGNANT NEOPLASM OF PROSTATE 11/21/2018 GARRETT JAVIER MD Ot E03.9 HYPOTHYROIDISM, UNSPECIFIED 11/21/2018 GARRETT JAVIER MD Ot 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 11/21/2018 GARRETT JAVIER MD Ot I10 ESSENTIAL (PRIMARY) HYPERTENSION 11/21/2018 GARRETT JAVIER MD Ot I25.10 ATHSCL HEART DISEASE OF [place] CORONARY 11/21/2018 GARRETT JAVIER MD Ot I73.9 PERIPHERAL VASCULAR DISEASE, UNSPECIFIED 11/21/2018 GARRETT JAVIER MD, Ot Z92.3 PERSONAL HISTORY OF IRRADIATION 11/22/2018 RODOLFO RICO DO Ot Z01.818 ENCOUNTER FOR OTHER PREPROCEDURAL EXAMIN Procedures Code Description Performed By Performed On 45.13 OTHER ENDOSCOPY OF SM INTEST 07/31/2014 45.23 COLONOSCOPY 07/31/2014 Results Test Result Range Bacteria identification in isolate by anaerobe culture - 04/09/17 14:42 QUANTITY OF GROWTH Scant Growth NRG Bacteria identification in isolate by anaerobe culture [id number] NRG Gram stain microscopy - 04/09/17 14:42 GRAM STAIN RESULT FEW WBC'S, NO BACTERIA OBSERVED NRG Bacteria identification in wound by culture - 04/09/17 14:42 Bacteria identification in wound by culture C STR/SIM NRG FREE TEXT EXTERNAL ID BY L REFERENCE LAB 04/17/17 NRG QUANTITY OF GROWTH Scant Growth NRG MRSA AGAR MRSA isolated (Screening test for MRSA is positive) NRG CALL POSITIVES (F1 HELP) CALLED TO [facility] IN WOUND CARE 04/10 15:55 NRG Bacterial susceptibility panel - 04/09/17 14:42 Oxacillin susceptibility test by minimum inhibitory concentration > = NRG Gentamicin susceptibility test by minimum inhibitory concentration < = NRG Clindamycin susceptibility test by minimum inhibitory concentration <= NRG Erythromycin susceptibility test by minimum inhibitory concentration >= NRG Trimethoprim/sulfamethoxazole susceptibility test by minimum inhibitoryconcentration <= NRG Vancomycin susceptibility test by minimum inhibitory concentration < = NRG Levofloxacin susceptibility test by minimum inhibitory concentration >= NRG Rifampin susceptibility test by minimum inhibitory concentration <= NRG Tetracycline susceptibility test by minimum inhibitory concentration <= NRG Ciprofloxacin susceptibility test by minimum inhibitory concentration R NRG Capillary blood glucose measurement by glucometer (mass/volume) - 04/16/17 13: 41 Capillary blood glucose measurement by glucometer (mass/volume) 137 mg/dL 70-110 Automated blood complete blood count (hemogram) panel - 04/24/17 08:08 Blood leukocytes automated count (number/volume) 11.1 10*3/uL 4.3-11.0 Blood erythrocytes automated count (number/volume) 4.44 10*6/uL 4.35-5.85 Venous blood hemoglobin measurement (mass/volume) 11.7 g/dL 13.3-17.7 Blood hematocrit (volume fraction) 39 % 40-54 Automated erythrocyte mean corpuscular volume 89 [foz_us] 80-99 Automated erythrocyte mean corpuscular hemoglobin (mass per erythrocyte) 26 pg 25-34 Automated erythrocyte mean corpuscular hemoglobin concentration measurement ( mass/volume) 30 g/dL 32-36 Automated erythrocyte distribution width ratio 17.9 % 10.0-14.5 Automated blood platelet count (count/volume) 285 10*3/uL 130-400 Automated blood platelet mean volume measurement 10.0 [foz_us] 7.4-10.4 PT panel in platelet poor plasma by coagulation assay - 04/24/17 08:08 Prothrombin time (PT) in platelet poor plasma by coagulation assay 14.2 s 12.2-14.7 INR in platelet poor plasma or blood by coagulation assay 1.1 0.8-1.4 Activated partial thromboplastin time (aPTT) in platelet poor plasma bycoagulation assay - 04/24/17 08:08 Activated partial thromboplastin time (aPTT) in platelet poor plasma bycoagulation assay 37 s 24-35 Comprehensive metabolic panel - 04/24/17 08:08 Serum or plasma sodium measurement (moles/volume) 138 mmol/L 135-145 Serum or plasma potassium measurement (moles/volume) 4.0 mmol/L 3.6-5.0 Serum or plasma chloride measurement (moles/volume) 99 mmol/L 98-107 Carbon dioxide 29 mmol/L 21-32 Serum or plasma anion gap determination (moles/volume) 10 mmol/L 5-14 Serum or plasma urea nitrogen measurement (mass/volume) 21 mg/dL 7-18 Serum or plasma creatinine measurement (mass/volume) 1.26 mg/dL 0.60-1.30 Serum or plasma urea nitrogen/creatinine mass ratio 17 NRG Serum or plasma creatinine measurement with calculation of estimated glomerular filtration rate 56 NRG Serum or plasma glucose measurement (mass/volume) 155 mg/dL 70-105 Serum or plasma calcium measurement (mass/volume) 9.1 mg/dL 8.5-10.1 Serum or plasma total bilirubin measurement (mass/volume) 1.1 mg/dL 0.1-1.0 Serum or plasma alkaline phosphatase measurement (enzymatic activity/volume) 110 U/L 40-136 Serum or plasma aspartate aminotransferase measurement (enzymatic activity/ volume) 10 U/L 5-34 Serum or plasma alanine aminotransferase measurement (enzymatic activity/volume ) 6 U/L 0-55 Serum or plasma protein measurement (mass/volume) 7.6 g/dL 6.4-8.2 Serum or plasma albumin measurement (mass/volume) 3.5 g/dL 3.2-4.5 Lipid 1996 panel - 04/24/17 08:08 Serum or plasma triglyceride measurement (mass/volume) 107 mg/dL <150 Serum or plasma cholesterol measurement (mass/volume) 170 mg/dL < 200 Serum or plasma cholesterol in HDL measurement (mass/volume) 27 mg/ dL 40-60 Cholesterol in LDL [mass/volume] in serum or plasma by direct assay 132 mg/dL 1-129 Serum or plasma cholesterol in VLDL measurement (mass/volume) 21 mg/ dL 5-40 Bacteria identification in isolate by anaerobe culture - 06/18/17 14:00 Bacteria identification in isolate by anaerobe culture [facility] Gram stain microscopy - 06/18/17 14:00 GRAM STAIN RESULT NO BACTERIA [facility] Bacteria identification in wound by culture - 06/18/17 14:00 Bacteria identification in wound by culture [id number] [facility] FREE TEXT EXTERNAL SENSITIVITY REPORTED 06/26/17 10:20 NRG QUANTITY OF GROWTH Moderate Growth NR FREE TEXT ENTRY 2 TESTING BY [employer] NR FREE TEXT ENTRY 3 LAB FOR SENSITIVITY TESTING 06/20/17 . [facility] Bacterial susceptibility panel - 06/18/17 14:00 Gentamicin susceptibility test by minimum inhibitory concentration < = NRG Trimethoprim/sulfamethoxazole susceptibility test by minimum inhibitoryconcentration <= NRG Ampicillin susceptibility test by minimum inhibitory concentration < = NRG Tobramycin susceptibility test by minimum inhibitory concentration < = NRG Cefazolin susceptibility test by minimum inhibitory concentration < = NRG Ceftriaxone susceptibility test by minimum inhibitory concentration <= NRG Ampicillin/sulbactam susceptibility test by minimum inhibitory concentration <= NRG Piperacillin/tazobactam susceptibility test by minimum inhibitory concentration <= NRG Ciprofloxacin susceptibility test by minimum inhibitory concentration >= NRG Meropenem susceptibility test by minimum inhibitory concentration < = NRG Aztreonam susceptibility test by minimum inhibitory concentration < = NRG Extended spectrum beta lactamase (ESBL) producing bacteria susceptibility test by minimum inhibitory concentration - [facility] Bacterial susceptibility panel - 06/18/17 14:00 Oxacillin susceptibility test by minimum inhibitory concentration > = NRG Gentamicin susceptibility test by minimum inhibitory concentration < = NRG Clindamycin susceptibility test by minimum inhibitory concentration >= NRG Erythromycin susceptibility test by minimum inhibitory concentration >= NRG Trimethoprim/sulfamethoxazole susceptibility test by minimum inhibitoryconcentration <= NRG Vancomycin susceptibility test by minimum inhibitory concentration 1 NRG Levofloxacin susceptibility test by minimum inhibitory concentration >= NRG Rifampin susceptibility test by minimum inhibitory concentration <= NRG Tetracycline susceptibility test by minimum inhibitory concentration <= NRG Ciprofloxacin susceptibility test by minimum inhibitory concentration R NRG Hemoglobin A1c - 06/18/17 14:15 Hemoglobin A1c 7.7 % 4.5-6.2 Bacteria identification in isolate by anaerobe culture - 07/30/17 13:36 Bacteria identification in isolate by anaerobe culture SANDY [facility] Gram stain microscopy - 07/30/17 13:36 GRAM STAIN RESULT FEW WBC'S, NO BACTERIA OBSERVED [facility] Bacteria identification in wound by culture - 07/30/17 13:36 Bacteria identification in wound by culture [id number] [facility] FREE TEXT EXTERNAL SENSITIVITY REPORTED BY [facility] REFERENCE NRG QUANTITY OF GROWTH Scant Growth NR FREE TEXT ENTRY 2 LAB 08/08/17 [facility] Bacterial susceptibility panel - 07/30/17 13:36 Gentamicin susceptibility test by minimum inhibitory concentration < = NRG Trimethoprim/sulfamethoxazole susceptibility test by minimum inhibitoryconcentration <= NRG Ampicillin susceptibility test by minimum inhibitory concentration > = NRG Tobramycin susceptibility test by minimum inhibitory concentration < = NRG Cefazolin susceptibility test by minimum inhibitory concentration > = NRG Ceftriaxone susceptibility test by minimum inhibitory concentration <= NRG Ampicillin/sulbactam susceptibility test by minimum inhibitory concentration 8 NRG Piperacillin/tazobactam susceptibility test by minimum inhibitory concentration <= NRG Ciprofloxacin susceptibility test by minimum inhibitory concentration <= NRG Meropenem susceptibility test by minimum inhibitory concentration < = NRG Aztreonam susceptibility test by minimum inhibitory concentration < = NRG Bacterial susceptibility panel - 07/30/17 13:36 Oxacillin susceptibility test by minimum inhibitory concentration < = NRG Gentamicin susceptibility test by minimum inhibitory concentration 4 NRG Clindamycin susceptibility test by minimum inhibitory concentration <= NRG Erythromycin susceptibility test by minimum inhibitory concentration <= NRG Trimethoprim/sulfamethoxazole susceptibility test by minimum inhibitoryconcentration S NRG Vancomycin susceptibility test by minimum inhibitory concentration S NRG Levofloxacin susceptibility test by minimum inhibitory concentration 1 NRG Rifampin susceptibility test by minimum inhibitory concentration <= NRG Tetracycline susceptibility test by minimum inhibitory concentration >= NRG Methicillin resistant Staphylococcus aureus (MRSA) screening culture - 14:40 Methicillin resistant Staphylococcus aureus (MRSA) screening culture NEG NRG Capillary blood glucose measurement by glucometer (mass/volume) - 03/07/18 07: 52 Capillary blood glucose measurement by glucometer (mass/volume) 140 mg/dL 70-110 Capillary blood glucose measurement by glucometer (mass/volume) - 11/26/18 10: 56 Capillary blood glucose measurement by glucometer (mass/volume) 131 mg/dL 70-110 Encounters ACCT No. Visit Date/Time Discharge Status Pt. Type Provider Facility Loc./Unit Complaint [id number] 11/21/2018 15:56:00 11/21/2018 16:42:00 DIS Outpatient RODOLFO RICO DO [facility] PREOP COLONOSCOPY/EGD [id number] 11/20/2018 14:23:00 11/20/2018 23:59:59 CLS Outpatient GARRETT JAVIER MD [facility] ONC [id number] 11/06/2018 09:48:00 11/12/2018 00:01:00 DIS Outpatient GARRETT JAVIER MD [facility] ONC [id number] 11/11/2018 16:04:00 11/11/2018 23:59:59 CLS Preadmit LILLIAN SMILEY MD [facility] SLEEP ANTWAN G47.33 [id number] 10/25/2018 09:49:00 10/25/2018 11:09:00 DIS Outpatient RAYMUNDO HERNANDEZ APRN [facility] SLEEP ANTWAN,HYPERSOMNIA [id number] 05/22/2018 09:41:00 05/22/2018 23:59:59 CLS Outpatient GARRETT JAVIER MD [facility] ONC [id number] 03/07/2018 07:30:00 03/07/2018 12:00:00 DIS Outpatient RODOLFO RICO DO [facility] SDC CHOLECYSTITIS [id number] 03/05/2018 14:23:00 03/05/2018 14:50:00 DIS Outpatient RODOLFO RICO DO [facility] PREOP LAP OFE [id number] 02/28/2018 12:06:00 02/28/2018 23:59:59 CLS Outpatient GARRETT JAVIER MD [facility] CARD PROSTATE CA [id number] 02/21/2018 12:55:00 02/21/2018 23:59:59 CLS Preadmit RAYMUNDO HERNANDEZ APRN [facility] RAD ABD PAIN,ELEVATED PSA, ENLARGED LIVER [id number] 02/21/2018 07:56:00 02/21/2018 23:59:59 CLS Outpatient RAYMUNDO HERNANDEZ APRN [facility] RAD ABD PAIN [id number] 09/03/2017 13:16:00 09/03/2017 23:59:59 CLS Outpatient LILLIAN PARSONS MD [facility] WOUNDCARE [id number] 08/27/2017 13:24:00 08/27/2017 23:59:59 CLS Outpatient LILLIAN PARSONS MD [facility] WOUNDCARE [id number] 08/20/2017 12:29:00 08/20/2017 23:59:59 CLS Outpatient LILLIAN PARSONS MD [facility] WOUNDCARE [id number] 08/13/2017 12:23:00 08/13/2017 23:59:59 CLS Outpatient LILLIAN PARSONS MD [facility] WOUNDCARE [id number] 08/08/2017 14:52:00 08/08/2017 23:59:59 CLS Outpatient LILLIAN PARSONS MD [facility] WOUNDCARE [id number] 08/06/2017 12:57:00 08/06/2017 23:59:59 CLS Outpatient LILLIAN PARSONS MD [facility] WOUNDCARE [id number] 07/30/2017 12:59:00 07/30/2017 23:59:59 CLS Outpatient LILLIAN PARSONS MD [facility] [id number] 07/23/2017 12:52:00 07/23/2017 23:59:59 CLS Outpatient LILLIAN PARSONS MD [facility] [id number] 07/17/2017 13:08:00 07/17/2017 23:59:59 CLS Outpatient LILLIAN PARSONS MD [facility] [id number] 07/09/2017 13:22:00 07/09/2017 23:59:59 CLS Outpatient LILLIAN PARSONS MD [facility] [id number] 07/02/2017 13:10:00 07/02/2017 23:59:59 CLS Outpatient LILLIAN PARSONS MD [facility] [id number] 06/26/2017 04:26:00 06/26/2017 04:26:00 EZRA Warner MD [facility] ER SOA [id number] 06/25/2017 13:08:00 06/25/2017 23:59:59 CLS Outpatient LILLIAN PARSNOS MD [facility] WOUNDCARE [id number] 06/18/2017 14:23:00 06/18/2017 23:59:59 CLS Outpatient LILLIAN PARSONS MD [facility] LAB E11.621,L97.522,L97.422, I70.244,I70.245,I87.323 [id number] 06/18/2017 13:17:00 06/18/2017 23:59:59 CLS Outpatient LILLIAN PARSONS MD [facility] WOUNDCARE [id number] 06/04/2017 13:48:00 06/04/2017 23:59:59 CLS Outpatient LILLIAN PARSONS MD [facility] WOUNDCARE [id number] 05/28/2017 13:26:00 05/28/2017 23:59:59 CLS Outpatient LILLIAN PARSONS MD [facility] WOUNDCARE [id number] 05/14/2017 13:18:00 05/14/2017 23:59:59 CLS Outpatient LILLIAN PARSONS MD [facility] WOUNDCARE [id number] 05/07/2017 09:17:00 05/07/2017 23:59:59 CLS Outpatient INDERJIT DAWSON APRN [facility] WOUNDCARE [id number] 05/01/2017 10:02:00 05/01/2017 23:59:59 CLS Outpatient LILLIAN PARSONS MD [facility] RAD L97.522 [id number] 04/30/2017 13:21:00 04/30/2017 23:59:59 CLS Outpatient LILLIAN PARSONS MD [facility] [id number] 04/24/2017 07:40:00 04/24/2017 16:00:00 DIS Outpatient DOMINIC RICHARD FACC, JORGE A SIM CCDS [facility] CATH LEG DISCOMFORT,CLAUDICATION [id number] 04/23/2017 12:31:00 04/23/2017 23:59:59 CLS Outpatient LILLIAN PARSONS MD [facility] WOUNDCARE [id number] 04/16/2017 12:43:00 04/16/2017 16:00:00 DIS Outpatient LILLIAN PARSONS MD [facility] [id number] 05/03/2015 00:11:00 05/03/2015 23:59:59 CLS Preadmit GAVIN HENRIQUEZ MD [facility] IRON DEFI,ANEMIA,GI UPSET FROM ORAL IRON [id number] 02/17/2015 12:06:00 05/02/2015 00:01:00 DIS Outpatient FLORENCE RICHARD, GAVIN Freed [facility] SDC IRON DEFI,ANEMIA,GI UPSET FROM ORAL IRON [id number] 08/04/2014 10:45:00 08/04/2014 12:16:00 DIS Outpatient KIMBERLY RENEE MD [facility] WOUNDCARE VENOUS STASIS ULCER R LEG [id number] 07/28/2014 16:33:00 08/01/2014 12:25:00 DIS Inpatient KIMBERLY RENEE MD [facility] 4TH GI BLEED, ACUTE RENAL FAILURE ANEMIA, LOW PLATELET [id number] 11/26/2018 12:20:00 PEN Preadmit RODOLFO RICO DO [facility] ENDO SEVERE ANEMIA [id number] 10/14/2012 00:00:00 Document Registration [id number] 07/15/2012 08:53:00 Document Registration [id number] 04/26/2012 09:24:00 Document Registration [id number] 11/17/2011 10:40:00 Document Registration [id number] 11/08/2011 08:52:00 Document Registration [id number] 10/26/2011 10:40:00 Document Registration [id number] 08/02/2017 09:45:31 08/02/2017 23:59:59 CLS Outpatient
[2018-11-26 12:20] VITALS: BP 114/56
--- NOTE | 2018-11-26 12:31 | Progress Note-Post Operative ---
Post-Operative Progess Note Surgeon (s)/Curriculum Counselor (s) Surgeon RODOLFO RICO DO Curriculum Counselor: na Pre-Operative Diagnosis iron def anemia Post-Operative Diagnosis pyloric and gastric polyps, hiatal hernia, cecal and hepatic flexure polyps, hypertrophies anal papilla Procedure & Operative Findings Date of Procedure 11/26/18 Procedure Performed/Findings egd c biopsy pyloric polyp, colonoscopy c hot bx polypectomy cecum and snare polypectomy hepatic flexure Anesthesia Type per fretted instrument inspector Estimated Blood Loss Estimated blood loss (mL): scant Specimens/Packing Specimens Removed pyloric polyp, cecal polyp, hepatic flexure polyp RODOLFO RICO DO Nov 26, 2018 12:31
[2018-11-26] MEDS ORDERED: OMEP20TA7 PO (12:32)
--- NOTE | 2018-11-26 12:34 | Discharge Inst-Simple/Standard ---
Discharge Inst-Standard Discharge Medications New, Converted or Re-Newed RX: Transmitted to Pharmacy Patient Instructions/Follow Up Plan of Care/Instructions/FU: 2 weeks Yousif Activity as Tolerated: Yes Discharge Diet: Regular Diet RODOLFO RICO DO Nov 26, 2018 12:34
--- NOTE | 2018-11-26 12:47 | Anesthesia-General Post-Op ---
MAC Patient Condition Mental Status/LOC: Same as Preop Cardiovascular: Satisfactory Nausea/Vomiting: Absent Respiratory: Satisfactory Pain: Controlled Complications: Absent Post Op Complications Complications None Follow Up Care/Instructions Patient Instructions None needed. Anesthesiology Discharge Order Discharge Order Patient was seen after the procedure and he was doing well, no complaints, stable vital signs, no apparent adverse anesthesia problems. FIDELIA ELLER DO Nov 26, 2018 12:47
[2018-11-26 12:55] VITALS: BP 118/60
[2018-11-26 13:01] VITALS: BP 118/60
--- NOTE | 2018-11-27 00:29 | OPERATIVE REPORT ---
DATE OF SERVICE: 11/26/2018 PREOPERATIVE DIAGNOSIS: Iron deficiency anemia. POSTOPERATIVE DIAGNOSES: Pyloric gastric polyps, hiatal hernia, cecal hepatic flexure polyps, hypertrophied anal papilla. PROCEDURE: EGD with biopsy of pyloric polyp, colonoscopy with hot biopsy polypectomy of cecum, snare polypectomy of hepatic flexure. SURGEON: Rodolfo Dodd DO ANESTHESIA: Per RAT BREEDER. ESTIMATED BLOOD LOSS: Scant. COMPLICATIONS: None. INDICATIONS: The patient is a 73-year-old male with iron deficiency anemia. He understands risks and benefits of procedures and wished to proceed with procedure. Consent was signed on the chart. DESCRIPTION OF PROCEDURE: The patient was taken to the endoscopy suite, placed in left lateral recumbent position. Timeout was performed. Scope was inserted in mouth, down the esophagus, stomach and into the duodenum without difficulty. There were no polyps, masses or ulcerations with the second portion of the duodenum. At the pyloric artery just distal to it, a small polyp was present, which is difficult to visualize due to the location. A biopsy of this was obtained. The question if this could be possibly secondary to an ulcer healing. Scope was then slowly retracted back into the stomach where it was further insufflated. There are no polyps, masses, ulcerations or erythematous changes. Scope was retroflexed noting hiatal hernia and a couple of other small benign appearing polyps. Scope was returned to its normal position, slowly withdrawn to the distal esophagus, which had normal appearance. No polyps, masses, ulcerations or erythematous changes. Scope was slowly retracted back until completely removed. Digital rectal exam was performed. A small hypertrophied anal papilla. No other palpable polyps, masses or ulcerations. Scope was inserted in the rectum and advanced all the way to cecum with minimal difficulty. Prep was adequate flow irrigation and suction as well. A polyp was present in the cecum, which hot biopsy polypectomy was performed. Scope was then slowly retracted back. There were no other polyps, masses or ulcerations within the ascending colon. The hepatic flexure, a larger polyp was present, which snare polypectomy was performed. Scope had to be withdrawn was suctioned to remove the polyp for pathology. Scope was then reinserted into the anus and advanced all the way to hepatic flexure with snare polypectomy was performed. Scope was then continued slowly retracted back. There were no polyps, mass or ulcerations within the transverse colon, descending colon and sigmoid colon. Once in the rectum, scope was also retroflexed noting no other pathology except for the hypertrophied anal papilla. Scope was returned to its normal position, slowly withdrawn until completely removed. The patient tolerated the procedure well without complications and taken to recovery room in stable condition. RECOMMENDATIONS: We will consider repeating the colonoscopy in one year. If he continues to have any issues before that, will be seen at that time. We will also start him on omeprazole 20 mg daily to see if he has any improvement. If any change in condition, we will consider repeating endoscopies at that time. Job ID: [id number] DocumentID: [id number] Dictated Date: 11/26/2018 12:38:09 Soft Work Cigar Machine Operator Date: 11/27/2018 00:28:13 Dictated By: RODOLFO DODD DO
== END 2018-11-26 13:11 | disposition home or self-care (01) ==
LOC: ENDO 10:29
PROVIDERS: ATTEND Surgery
DX: D12.0 Benign neoplasm of cecum (principal); D12.3 Benign neoplasm of transverse colon; K62.89 Other specified diseases of anus and rectum; K31.7 Polyp of stomach and duodenum; K44.9 Diaphragmatic hernia without obstruction or gangrene; D50.9 Iron deficiency anemia, unspecified; E11.42 Type 2 diabetes mellitus with diabetic polyneuropathy; E11.51 Type 2 diabetes mellitus with diabetic peripheral angiopathy without gangrene; I25.10 Atherosclerotic heart disease of native coronary artery without angina pectoris; I10 Essential (primary) hypertension; C61 Malignant neoplasm of prostate; F17.220 Nicotine dependence, chewing tobacco, uncomplicated; G57.33 Lesion of lateral popliteal nerve, bilateral lower limbs; Z79.82 Long term (current) use of aspirin; Z79.84 Long term (current) use of oral hypoglycemic drugs; Z79.899 Other long term (current) drug therapy; Z95.5 Presence of coronary angioplasty implant and graft
CPT/HCPCS: 82962

== ENCOUNTER → 2018-12-16 | Outpatient (CLI) | payer MEDICARE ==
[~2018-12-16] MED LIST changes: +OMEP20TA7 PO
== END ==
LOC: SLEEP 20:41
PROVIDERS: ATTEND Otolaryngology Otolaryngology/Facial Plastic Surgery
DX: G47.33 Obstructive sleep apnea (adult) (pediatric) (principal)

== ENCOUNTER 2019-01-29 09:33 | Outpatient (RCR) | payer MEDICARE ==
[2018-11-20 14:36] LABS: BASOPHILS % (AUTO) 0 % (0-10); EOSINOPHILS # (AUTO) 0.2 10^3/uL (0.0-0.3); EOSINOPHILS % (AUTO) 2 % (0-10); HEMATOCRIT 29 % (40-54); HEMOGLOBIN 7.5 G/DL (13.3-17.7); LYMPHOCYTES # (AUTO) 1.3 X 10^3 (1.0-4.0); LYMPHOCYTES % (AUTO) 12 % (12-44); MEAN CORPUSCULAR HEMOGLOBIN 21 PG (25-34); MEAN CORPUSCULAR HGB CONC 26 G/DL (32-36); MEAN CORPUSCULAR VOLUME 80 FL (80-99); MEAN PLATELET VOLUME 10.9 FL (7.4-10.4); MONOCYTES # (AUTO) 0.9 X 10^3 (0.0-1.0); MONOCYTES % (AUTO) 8 % (0-12); NEUTROPHILS # (AUTO) 8.2 X 10^3 (1.8-7.8); NEUTROPHILS % (AUTO) 78 % (42-75); PLATELET COUNT 251 10^3/uL (130-400); WHITE BLOOD COUNT 10.5 10^3/uL (4.3-11.0)
[2018-11-27 11:15] LABS: BASOPHILS % (AUTO) 0 % (0-10); EOSINOPHILS # (AUTO) 0.1 10^3/uL (0.0-0.3); EOSINOPHILS % (AUTO) 2 % (0-10); HEMATOCRIT 30 % (40-54); HEMOGLOBIN 8.1 G/DL (13.3-17.7); LYMPHOCYTES # (AUTO) 0.9 X 10^3 (1.0-4.0); LYMPHOCYTES % (AUTO) 10 % (12-44); MEAN CORPUSCULAR HEMOGLOBIN 23 PG (25-34); MEAN CORPUSCULAR HGB CONC 27 G/DL (32-36); MEAN CORPUSCULAR VOLUME 87 FL (80-99); MEAN PLATELET VOLUME 10.3 FL (7.4-10.4); MONOCYTES # (AUTO) 0.6 X 10^3 (0.0-1.0); MONOCYTES % (AUTO) 7 % (0-12); NEUTROPHILS # (AUTO) 7.3 X 10^3 (1.8-7.8); NEUTROPHILS % (AUTO) 81 % (42-75); PLATELET COUNT 220 10^3/uL (130-400); RED CELL DISTRIBUTION WIDTH 29.3 % (10.0-14.5); WHITE BLOOD COUNT 8.9 10^3/uL (4.3-11.0)
[2018-11-27 11:34] LABS: ALBUMIN 3.7 GM/DL (3.2-4.5); BILIRUBIN,TOTAL 0.7 MG/DL (0.1-1.0); CALCIUM 8.7 MG/DL (8.5-10.1); CREATININE SERUM 1.45 MG/DL (0.60-1.30); POTASSIUM 4.1 MMOL/L (3.6-5.0); TOTAL PROTEIN 6.3 GM/DL (6.4-8.2)
[2019-01-28 10:03] LABS: BASOPHILS % (AUTO) 0 % (0-10); EOSINOPHILS # (AUTO) 0.4 10^3/uL (0.0-0.3); EOSINOPHILS % (AUTO) 5 % (0-10); HEMATOCRIT 40 % (40-54); HEMOGLOBIN 12.2 G/DL (13.3-17.7); LYMPHOCYTES # (AUTO) 1.5 X 10^3 (1.0-4.0); LYMPHOCYTES % (AUTO) 15 % (12-44); MEAN CORPUSCULAR HEMOGLOBIN 30 PG (25-34); MEAN CORPUSCULAR HGB CONC 31 G/DL (32-36); MEAN CORPUSCULAR VOLUME 98 FL (80-99); MEAN PLATELET VOLUME 11.1 FL (7.4-10.4); MONOCYTES # (AUTO) 0.6 X 10^3 (0.0-1.0); MONOCYTES % (AUTO) 7 % (0-12); NEUTROPHILS # (AUTO) 7.2 X 10^3 (1.8-7.8); NEUTROPHILS % (AUTO) 73 % (42-75); PLATELET COUNT 205 10^3/uL (130-400); RED CELL DISTRIBUTION WIDTH 20.9 % (10.0-14.5); WHITE BLOOD COUNT 9.8 10^3/uL (4.3-11.0)
[2019-01-28 10:21] LABS: ALBUMIN 3.9 GM/DL (3.2-4.5); BILIRUBIN,TOTAL 0.3 MG/DL (0.1-1.0); CALCIUM 9.5 MG/DL (8.5-10.1); CREATININE SERUM 1.41 MG/DL (0.60-1.30); POTASSIUM 4.4 MMOL/L (3.6-5.0); TOTAL PROTEIN 6.8 GM/DL (6.4-8.2)
[~2019-01-29 09:33] MED LIST changes: +FERRIC CARBOXYMALTOSE (CANCER) 750 MG in NS (IVPB) CANCER CENTER 250 ML IV SCH; +LEUPROLIDE 22.5 MG SYRIN(ELIGARD) SQ SCH
== END 2019-02-18 | disposition home or self-care (01) ==
LOC: ONC 09:33
PROVIDERS: ATTEND Internal Medicine Hematology & Oncology
DX: C61 Malignant neoplasm of prostate (principal); C79.51 Secondary malignant neoplasm of bone; D64.9 Anemia, unspecified; E11.51 Type 2 diabetes mellitus with diabetic peripheral angiopathy without gangrene; I10 Essential (primary) hypertension; E03.9 Hypothyroidism, unspecified; I25.10 Atherosclerotic heart disease of native coronary artery without angina pectoris; I73.9 Peripheral vascular disease, unspecified; Z92.3 Personal history of irradiation; Z79.82 Long term (current) use of aspirin; Z79.899 Other long term (current) drug therapy
CPT/HCPCS: 36415; 80053; 84153; 85025; 96365; 96402

== ENCOUNTER → 2019-03-14 | Outpatient (CLI) | payer MEDICARE ==
[~2019-03-14] VITALS: Ht 177.8 cm; Wt 119.7 kg
[~2019-03-14] MED LIST changes: +ASPI-586 PO; +CATHETER FLUSH 10 ML SYR IV PRN; -FERRIC CARBOXYMALTOSE (CANCER) 750 MG in NS (IVPB) CANCER CENTER 250 ML IV SCH; +INSU100I34 SQ; -LEUPROLIDE 22.5 MG SYRIN(ELIGARD) SQ SCH; +REGADENOSON 0.4 MG/5 ML SYR (LEXISCAN) IV ONE
[2019-03-14 08:07] VITALS: BP 124/67
--- NOTE | 2019-03-14 14:35 | STRESS TEST ---
DATE OF SERVICE: 03/14/2019 LEXISCAN MYOVIEW STRESS TEST REPORT REFERRING PHYSICIAN: Dorene Sanchez MD. Baseline heart rate is 50, baseline blood pressure is 124/67. Baseline EKG is sinus rhythm with no ischemic changes. In summary, the patient was injected with 10.23 mCi of technetium-99 Myoview and the resting images were obtained. Then, the patient received 0.4 mg of Lexiscan followed by 33.0 mCi of technetium-99 Myoview. Throughout the test, there were no EKG changes. The resting and stress images were reviewed and compared in the short axis, horizontal long axis, and vertical long axis views. Review of the images showed decreased uptake involving the whole inferior wall. The true apex and the anteroapical segment with no significant reversibility. SSS is 17, SDS 2, TID value 1.02. On the gated images, the left ventricle appeared to be dilated with diffuse left ventricular hypokinesia, more pronounced at the inferior wall and inferolateral wall and true lateral wall. Calculated ejection fraction is 38%. CONCLUSION: 1. The patient tolerated Lexiscan well. 2. Fixed defect involving the whole inferior wall, inferoapical segment through apex and anteroapical segment. 3. Dilated left ventricle with diffuse left ventricular hypokinesia, more pronounced at the inferior wall and inferolateral wall and true lateral wall. Calculated ejection fraction is 38%. Job ID: [id number] DocumentID: [id number] Dictated Date: 03/14/2019 11:50:17 Reference Data Expert Date: 03/14/2019 14:33:53 Dictated By: SUMMER CHERY MD
== END ==
LOC: CARD 06:38
PROVIDERS: ATTEND Internal Medicine Cardiovascular Disease
DX: I25.10 Atherosclerotic heart disease of native coronary artery without angina pectoris (principal); I10 Essential (primary) hypertension; I73.9 Peripheral vascular disease, unspecified; Z72.0 Tobacco use; I36.1 Nonrheumatic tricuspid (valve) insufficiency
CPT/HCPCS: 78452; 93017; 93306

== ENCOUNTER 2019-03-18 12:34 | Outpatient (CLI) | payer MEDICARE ==
[~2019-03-18] VITALS: Ht 177.8 cm; Wt 119.7 kg
[~2019-03-18 12:34] MED LIST changes: -ASPI-586 PO; -CATHETER FLUSH 10 ML SYR IV PRN; -INSU100I34 SQ; -REGADENOSON 0.4 MG/5 ML SYR (LEXISCAN) IV ONE
[2019-03-18] MEDS ORDERED: INSU100I34 SQ (13:44)
[2019-03-18] MEDS ORDERED: ASPI-586 PO (13:44)
== END 2019-03-18 14:07 | disposition home or self-care (01) ==
LOC: PREOP 12:34
PROVIDERS: ATTEND Podiatrist Foot & Ankle Surgery
DX: Z01.818 Encounter for other preprocedural examination (principal)

== ENCOUNTER 2019-03-24 07:28 | Day surgery (SDC) | payer MEDICARE ==
[2019-03-24] VITALS (9 sets, daily range): BP systolic 100–138; BP diastolic 57–73
[~2019-03-24] VITALS: Ht 177.8 cm; Wt 118.0 kg
[~2019-03-24 07:28] MED LIST changes: +ASPI-586 PO; +INSU100I34 SQ
--- NOTE | 2019-03-24 07:30 | NUR ---
dr. villanueva on floor and this rn informed that dr. blair stated intermediate risk for surgery and that lexiscan on 03/14 and echo on 03/16/19. dr. villanueva gave verbal order to inform anesthesia. dr. vail informed of above.
[2019-03-24] MEDS ORDERED: LACTATED RINGERS 1,000 ML IV PRN (07:38)
[2019-03-24] MEDS ORDERED: ceFAZolin INJECTION 1,000 MG in WATER (STERILE) FOR INJECTION 10 ML IV ONE (07:45)
--- OUTSIDE RECORDS SUMMARY | 2019-03-24 07:47 | XMS REPORT | CCD ---
Author Author Dorene Sanchez Organization [facility] Address [address] [place] [address] Phone Care Team Providers Care Smelter Operator Name Role Phone PP Unavailable CCM Unavailable Summary Purpose Interface Exchange Insurance Providers Payer name Policy type / Coverage type Covered republican ID Effective Begin Date Effective End Date WPS Medicare Part B Medicare Part B [id number] Unknown Unknown Family history Father Diagnosis Age At Onset Stroke Unknown Mother Diagnosis Age At Onset Stroke Unknown Diabetes mellitus Type 2 Unknown Social History Social History Element Codes Description Effective Dates Tobacco history SNOMED CT: 658208362 Currently uses smokeless tobacco Chews 05/04/2016 Marital status Unknown 01/26/2015 Number of children Unknown 3 01/26/2015 Employment Unknown Retired 01/26/[address]: 411128569 Never drinks alcohol quit in July 2014 01/26/2015 Allergies, Adverse Reactions, Alerts Substance Reaction Codes Entered Date Inactivated Date Status * NO KNOWN FOOD ALLERGIES Unknown 01/26/2015 No Inactive Date Active * NO KNOWN DRUG ALLERGIES Unknown 01/26/2015 No Inactive Date Active Past Medical History Illness Codes Condition Status Onset Date Resolved Date Dysuria ICD-9: 788.1 ICD-10: R30.0 Active 03/21/2017 Unknown Type 2 diabetes mellitus with hyperglycemia ICD-9: 250.00 ICD-10: E11.65 Active 12/06/2016 Unknown Chronic kidney disease, stage 3 (moderate) ICD-9: 585.3 ICD-10: N18.3 Active 01/25/2015 Unknown Chronic pain syndrome ICD- 9: 338.4 ICD-10: G89.4 Active 01/25/2015 Unknown Essential (primary) hypertension ICD-9: 401.1 ICD-10: I10 Active 11/08/2017 Unknown Cellulitis of left lower limb ICD-9: 682.6 ICD-10: L03.116 Active 03/22/2017 Unknown Cellulitis of right lower limb ICD-9: 682.6 ICD-10: L03.115 Active 10/10/2018 Unknown Localized edema ICD-9: 782.3 ICD-10: R60.0 Active 03/22/2017 Unknown Chronic obstructive pulmonary disease, unspecified ICD-9: 496 ICD-10: J44.9 Active 10/04/2018 Unknown Weakness ICD-9: 780.79 ICD-10: R53.1 Active 10/14/2018 Unknown Hypoxemia ICD-9: 799.02 ICD-10: R09.02 Active 10/04/2018 Unknown Malignant neoplasm of prostate ICD-9: 185 ICD-10: C61 Active 02/25/2018 Unknown Type 2 diabetes mellitus with foot ulcer ICD-9: 250.80 ICD-10: E11.621 Active 05/03/2017 Unknown Generalized abdominal pain ICD-9: 789.07 ICD-10: R10.84 Active 02/20/2018 Unknown Gross hematuria ICD-9: 599.71 ICD-10: R31.0 Active 02/20/2018 Unknown Unspecified jaundice ICD- 9: 782.4 ICD-10: R17 Active 02/20/2018 Unknown Encounter for immunization ICD-9: V03.82 ICD-10: [...] ICD-9: 274.19 ICD-10: M1A.3720 Active 03/22/2017 Unknown Diabetes Unknown Active 03/08/2017 Unknown Encounter for immunization ICD-9: V03.9 ICD-10: Z23 Active 11/30/2016 Unknown Vitamin B12 deficiency anemia due to intrinsic factor deficiency ICD-9: 281.0 ICD-10: D51.0 Active 05/03/2016 Unknown Hypertension Unknown Active 01/26/2015 Unknown Hypothryroidism Unknown Active 01/26/2015 Unknown ANEMIA ICD-9: 285.9 Active 01/25/2015 Unknown CHRONIC PAIN SYNDROME ICD- 9: 338.4 Active 01/25/2015 Unknown Chronic renal insufficiency, stage III (moderate) ICD-9: 585.3 Active 01/25/2015 Unknown ESSENTIAL HYPERTENSION ICD-9: 401.9 Active 01/25/2015 Unknown GOUT ICD-9: 274.9 Active 01/25/2015 Unknown HYPOTHYROIDISM ICD-9: 244.9 Active 01/25/2015 Unknown Vitamin B12 deficiency ICD-9: 266.2 Active 01/25/2015 Unknown Problems Condition Codes Effective Dates Condition Status Dysuria ICD-9: 788.1 ICD-10: R30.0 03/21/2017 Active Type 2 diabetes mellitus with hyperglycemia ICD-9: 250.00 ICD-10: E11.65 12/06/2016 Active Chronic kidney disease, stage 3 (moderate) ICD-9: 585.3 ICD-10: N18.3 01/25/2015 Active Chronic pain syndrome ICD- 9: 338.4 ICD-10: G89.4 01/25/2015 Active Essential (primary) hypertension ICD-9: 401.1 ICD-10: I10 11/08/2017 Active Cellulitis of left lower limb ICD-9: 682.6 ICD-10: L03.116 03/22/2017 Active Cellulitis of right lower limb ICD-9: 682.6 ICD-10: L03.115 10/10/2018 Active Localized edema ICD-9: 782.3 ICD-10: R60.0 03/22/2017 Active Chronic obstructive pulmonary disease, unspecified ICD-9: 496 ICD-10: J44.9 10/04/2018 Active Weakness ICD-9: 780.79 ICD-10: R53.1 10/14/2018 Active Hypoxemia ICD-9: 799.02 ICD-10: R09.02 10/04/2018 Active Malignant neoplasm of prostate ICD-9: 185 ICD-10: C61 02/25/2018 Active Type 2 diabetes mellitus with foot ulcer ICD-9: 250.80 ICD-10: E11.621 05/03/2017 Active Generalized abdominal pain ICD-9: 789.07 ICD-10: R10.84 02/20/2018 Active Gross hematuria ICD-9: 599.71 ICD-10: R31.0 02/20/2018 Active Unspecified jaundice ICD- 9: 782.4 ICD-10: R17 02/20/2018 Active Encounter for immunization ICD-9: V03.82 ICD-10: [...] (tophi) ICD-9: 274.19 ICD-10: M1A.3720 03/22/2017 Active Diabetes Unknown 03/08/2017 Active Encounter for immunization ICD-9: V03.9 ICD-10: Z23 11/30/2016 Active Vitamin B12 deficiency anemia due to intrinsic factor deficiency ICD-9: 281.0 ICD-10: D51.0 05/03/2016 Active Hypertension Unknown 01/26/2015 Active Hypothryroidism Unknown 01/26/2015 Active ANEMIA ICD-9: 285.9 01/25/2015 Active CHRONIC PAIN SYNDROME ICD- 9: 338.4 01/25/2015 Active Chronic renal insufficiency, stage III (moderate) ICD-9: 585.3 01/25/2015 Active ESSENTIAL HYPERTENSION ICD-9: 401.9 01/25/2015 Active GOUT ICD-9: 274.9 01/25/2015 Active HYPOTHYROIDISM ICD-9: 244.9 01/25/2015 Active Vitamin B12 deficiency ICD-9: 266.2 01/25/2015 Active Medications Medication Codes Instructions Start Date Stop Date Status Fill Instructions gabapentin 100 mg capsule RxNorm: 143369 TAKE ONE CAPSULE BY MOUTH IN THE EVENING AT 5PM 03/21/2019 08/17/2019 Active levothyroxine 200 mcg tablet RxNorm: 880674 TAKE ONE TABLET BY MOUTH DAILY ON AN EMPTY STOMACH 03/13/2019 12/07/2019 Active bisoprolol 5 mg-hydrochlorothiazide 6.25 mg tablet RxNorm: 142753 TAKE ONE TABLET BY MOUTH DAILY 03/13/2019 12/07/2019 Active Keflex 500 mg capsule RxNorm: 907363 1 Capsule(s) PO TID 03/12/2019 03/21/2019 Inactive potassium chloride ER 10 mEq tablet,extended release RxNorm: 019299 TAKE ONE TABLET BY MOUTH DAILY 03/10/2019 09/05/2019 Active oxycodone 10 mg tablet RxNorm: 4079392 1 Tablet(s) PO Q4 PRN 02/25/2019 No Stop Date Active oxycodone 20 mg tablet RxNorm: 6089838 1/2 Tablet(s) PO Q6 as needed 01/21/2019 02/24/2019 Inactive oxycodone 20 mg tablet RxNorm: 1049569 1/2 Tablet(s) PO Q6 as needed 12/18/2018 01/16/2019 Inactive oxycodone 20 mg tablet RxNorm: 3275739 1/2 Tablet(s) PO Q6 as needed 11/12/2018 12/11/2018 Inactive gabapentin 100 mg capsule RxNorm: 118440 1 Capsule(s) BID 11/05/2018 03/20/2019 Inactive potassium chloride ER 10 mEq tablet,extended release RxNorm: 383944 TAKE ONE TABLET BY MOUTH DAILY 11/04/2018 11/19/2018 Inactive Probiotic 10 billion cell capsule RxNorm: 8399806 1 Capsule(s) PO BID 10/25/2018 10/24/2018 Inactive Keflex 500 mg capsule RxNorm: 873383 1 Capsule(s) PO QID 10/25/2018 10/31/2018 Inactive Probiotic 10 billion cell capsule RxNorm: 5839004 1 Capsule(s) PO BID 10/25/2018 10/31/2018 Inactive oxycodone 20 mg tablet RxNorm: 8804052 1/2 Tablet(s) PO Q6 as needed 10/14/2018 11/11/2018 Inactive Lasix 20 mg tablet RxNorm: 680226 1 Tablet(s) PO BID 10/10/2018 04/07/2019 Active Keflex 500 mg capsule RxNorm: 387481 1 Capsule(s) PO TID 10/10/2018 10/19/2018 Inactive potassium chloride ER 10 mEq tablet,extended release RxNorm: 712330 1 Tablet(s) PO daily 10/10/2018 11/03/2018 Inactive albuterol sulfate 2.5 mg/3 mL (0.083 %) solution for nebulization RxNorm: 805705 1 Milliliter(s) INH TID DX J44.9 10/04/2018 01/31/2019 Inactive gabapentin 100 mg capsule RxNorm: 705061 TAKE ONE CAPSULE BY MOUTH IN THE EVENING AT 5PM 09/24/2018 11/04/2018 Inactive oxycodone 20 mg tablet RxNorm: 0656957 1/2 Tablet(s) PO Q6 as needed 09/12/2018 10/11/2018 Inactive oxycodone 20 mg tablet RxNorm: 9408180 1/2 Tablet(s) PO Q6 as needed 08/15/2018 09/11/2018 Inactive oxycodone 20 mg tablet RxNorm: 2303365 1/2 Tablet(s) PO Q6 as needed 07/16/2018 08/14/2018 Inactive oxycodone 20 mg tablet RxNorm: 9646931 1/2 Tablet(s) PO Q6 as needed 06/14/2018 07/13/2018 Inactive gabapentin 100 mg capsule RxNorm: 665139 TAKE ONE CAPSULE BY MOUTH IN THE EVENING AT 5PM 05/30/2018 09/23/2018 Inactive oxycodone 20 mg tablet RxNorm: 2256976 1/2 Tablet(s) PO Q6 as needed 05/15/2018 06/13/2018 Inactive oxycodone 20 mg tablet RxNorm: 0071109 1/2 Tablet(s) PO Q6 as needed 04/12/2018 05/11/2018 Inactive oxycodone 20 mg tablet RxNorm: 6759381 1/2 Tablet(s) PO Q6 as needed 03/11/2018 04/09/2018 Inactive Cipro 500 mg tablet RxNorm: 661229 1 Tablet(s) PO BID 02/21/2018 02/20/2018 Inactive levothyroxine 200 mcg tablet RxNorm: 129642 1 Tablet(s) PO daily 02/21/2018 02/20/2018 Inactive Cipro 500 mg tablet RxNorm: 764096 1 Tablet(s) PO BID 02/21/2018 03/02/2018 Inactive levothyroxine 200 mcg tablet RxNorm: 147507 1 Tablet(s) PO daily 02/21/2018 02/15/2019 Inactive oxycodone 20 mg tablet RxNorm: 7900327 1/2 Tablet(s) PO Q6 as needed 02/12/2018 03/10/2018 Inactive oxycodone 20 mg tablet RxNorm: 5529165 1/2 Tablet(s) PO Q6 as needed 01/16/2018 02/11/2018 Inactive gabapentin 100 mg capsule RxNorm: 435842 TAKE ONE CAPSULE BY MOUTH IN THE EVENING AT 5PM 01/15/2018 05/29/2018 Inactive bisoprolol 5 mg-hydrochlorothiazide 6.25 mg tablet RxNorm: 845323 TAKE ONE TABLET BY MOUTH DAILY 01/01/2018 12/26/2018 Inactive oxycodone 20 mg tablet RxNorm: 5119696 1/2 Tablet(s) PO Q6 as needed 12/20/2017 01/14/2018 Inactive oxycodone 20 mg tablet RxNorm: 6019767 1/2 Tablet(s) PO Q6 as needed 11/20/2017 12/19/2017 Inactive Victoza 2-Dino 0.6 mg/0.1 mL (18 mg/3 mL) subcutaneous pen injector RxNorm: 734601 1.2 Milligram(s) SQ daily 11/08/2017 12/07/2017 Inactive oxycodone 20 mg tablet RxNorm: 1313845 1/2 Tablet(s) PO Q6 as needed 10/19/2017 11/17/2017 Inactive gabapentin 100 mg capsule RxNorm: 776503 1 Capsule(s) PO QPM at 5 pm 09/20/2017 01/14/2018 Inactive Lasix 20 mg tablet RxNorm: 160418 1 Tablet(s) QAM at 5pm 09/20/2017 03/18/2018 Inactive oxycodone 20 mg tablet RxNorm: 7014915 1/2 Tablet(s) PO Q6 as needed 09/18/2017 10/17/2017 Inactive oxycodone 20 mg tablet RxNorm: 2725156 1/2 Tablet(s) PO Q6 as needed 08/14/2017 09/12/2017 Inactive ketoconazole 2 % topical cream RxNorm: 933180 1 Gram(s) TOP BID to affected area until healed 08/03/2017 No Stop Date Active oxycodone 20 mg tablet RxNorm: 5007008 1/2 Tablet(s) PO Q6 as needed 07/17/2017 08/13/2017 Inactive pen needle, diabetic 31 gauge x 5/16" RxNorm: 1 Unit Dose Miscellaneous daily 06/25/2017 03/21/2018 Inactive daily use with victoza Bactrim DS 800 mg-160 mg tablet RxNorm: 121739 1 Tablet(s) PO BID Dr Norwood 06/25/2017 07/04/2017 Inactive Victoza 2-Dino 0.6 mg/0.1 mL (18 mg/3 mL) subcutaneous pen injector RxNorm: 922128 0.6 Milligram(s) SQ daily 06/25/2017 07/24/2017 Inactive doxycycline hyclate 100 mg tablet RxNorm: 046928 1 Tablet(s) PO BID Dr Norwood 06/21/2017 06/30/2017 Inactive oxycodone 20 mg tablet RxNorm: 6270665 1/2 Tablet(s) PO Q6 as needed 06/14/2017 07/13/2017 Inactive clindamycin 150 mg capsule RxNorm: 358851 1 Capsule(s) PO Q8 06/07/2017 06/16/2017 Inactive levothyroxine 175 mcg tablet RxNorm: 023866 TAKE ONE TABLET BY MOUTH DAILY 06/04/2017 09/01/2017 Inactive levothyroxine 175 mcg tablet RxNorm: 964726 TAKE ONE TABLET BY MOUTH DAILY 06/04/2017 11/30/2017 Inactive bisoprolol 5 mg-hydrochlorothiazide 6.25 mg tablet RxNorm: 639334 TAKE ONE TABLET BY MOUTH DAILY 05/24/2017 11/19/2017 Inactive oxycodone 20 mg tablet RxNorm: 4783953 1/2 Tablet(s) PO Q6 as needed 05/14/2017 06/12/2017 Inactive potassium chloride ER 10 mEq capsule,extended release RxNorm: 789737 TAKE ONE CAPSULE BY MOUTH DAILY NEEDED FOR 5 DAYS THEN NEEDED WITH LASIX 04/17/2017 10/13/2017 Inactive Lasix 20 mg tablet RxNorm: 343606 TAKE ONE TABLET BY MOUTH DAILY NEEDED 04/17/2017 09/19/2017 Inactive oxycodone 20 mg tablet RxNorm: 4887601 1/2 Tablet(s) PO Q6 as needed 04/12/2017 05/11/2017 Inactive Colcrys 0.6 mg tablet RxNorm: 667855 2 tabs at onset then may repeat 1 tab in 1 hours if needed- Tablet(s) PO 04/09/2017 No Stop Date Active then take daily until gout resolved Bactrim DS 800 mg-160 mg tablet RxNorm: 894691 1 Tablet(s) PO BID 04/09/2017 04/08/2017 Inactive dc levaquin Bactrim DS 800 mg-160 mg tablet RxNorm: 057149 1 Tablet(s) PO BID 04/09/2017 04/15/2017 Inactive dc levaquin Levaquin 500 mg tablet RxNorm: 752225 1 Tablet(s) PO daily 04/03/2017 04/02/2017 Inactive Levaquin 500 mg tablet RxNorm: 030226 1 Tablet(s) PO daily 04/03/2017 06/06/2017 Inactive indomethacin 25 mg capsule RxNorm: 783288 1 Capsule(s) PO TID PRN 03/22/2017 03/22/2017 Inactive Lasix 20 mg tablet RxNorm: 650420 1 Tablet(s) PO QDAY PRN 03/22/2017 04/16/2017 Inactive daily x 5 days then as needed Levaquin 500 mg tablet RxNorm: 801726 1 Tablet(s) PO daily 03/22/2017 03/31/2017 Inactive potassium chloride ER 10 mEq capsule,extended release RxNorm: 216062 1 Capsule(s) PO QDAY PRN 03/22/2017 04/16/2017 Inactive daily x 5 days then as needed with lasix oxycodone 20 mg tablet RxNorm: 2044046 1/2 Tablet(s) PO Q6 as needed 03/08/2017 04/06/2017 Inactive bisoprolol 5 mg-hydrochlorothiazide 6.25 mg tablet RxNorm: 603195 TAKE ONE TABLET BY MOUTH DAILY 02/14/2017 05/14/2017 Inactive oxycodone 20 mg tablet RxNorm: 5840429 1/2 Tablet(s) PO Q6 as needed 02/08/2017 03/07/2017 Inactive oxycodone 20 mg tablet RxNorm: 3597013 1/2 Tablet(s) PO Q6 as needed 01/08/2017 02/06/2017 Inactive levothyroxine 175 mcg tablet RxNorm: 202388 1 Tablet(s) PO daily 12/06/2016 06/03/2017 Inactive [SAVINGS FOR NON-COVERED DRUGS -- BIN:[id number], PCN: ASPROD1, Group: XXXXX, ID# [id number], Questions: . THIS IS NOT INSURANCE.] oxycodone 20 mg tablet RxNorm: 1448701 1/2 Tablet(s) PO Q6 as needed 12/04/2016 01/02/2017 Inactive oxycodone 20 mg tablet RxNorm: 7235310 1/2 Tablet(s) PO Q6 as needed 11/09/2016 12/03/2016 Inactive bisoprolol 5 mg-hydrochlorothiazide 6.25 mg tablet RxNorm: 300892 TAKE ONE TABLET BY MOUTH DAILY 11/08/2016 02/05/2017 Inactive oxycodone 20 mg tablet RxNorm: 6572838 1/2 Tablet(s) PO Q6 as needed 10/05/2016 11/03/2016 Inactive oxycodone 20 mg tablet RxNorm: 3588019 1/2 Tablet(s) PO Q6 as needed 09/06/2016 10/04/2016 Inactive oxycodone 20 mg tablet RxNorm: 8209598 1/2 Tablet(s) PO Q6 as needed 08/07/2016 09/05/2016 Inactive oxycodone 20 mg tablet RxNorm: 8751238 1/2 Tablet(s) PO Q6 as needed 07/04/2016 08/06/2016 Inactive oxycodone 20 mg tablet RxNorm: 9949201 1/2 Tablet(s) PO Q6 as needed 05/29/2016 07/03/2016 Inactive levothyroxine 150 mcg tablet RxNorm: 511103 1 Tablet(s) PO daily 04/10/2016 04/09/2016 Inactive [SAVINGS FOR NON-COVERED DRUGS -- BIN:[id number], PCN: ASPROD1, Group: XXXXX, ID# [id number], Questions: . THIS IS NOT INSURANCE.] oxycodone 20 mg tablet RxNorm: 1149075 1/2 Tablet(s) PO Q6 as needed 04/10/2016 05/28/2016 Inactive levothyroxine 150 mcg tablet RxNorm: 219654 1 Tablet(s) PO daily 04/10/2016 10/06/2016 Inactive [SAVINGS FOR NON-COVERED DRUGS -- BIN:[id number], PCN: ASPROD1, Group: XXXXX, ID# [id number], Questions: . THIS IS NOT INSURANCE.] bisoprolol 5 mg-hydrochlorothiazide 6.25 mg tablet RxNorm: 166455 1 Tablet(s) PO daily 02/16/2016 12/31/2017 Inactive oxycodone 20 mg tablet RxNorm: 3863539 1/2 Tablet(s) PO Q6 as needed 02/16/2016 04/09/2016 Inactive oxycodone 20 mg tablet RxNorm: 5116888 1/2 Tablet(s) PO Q6 as needed 01/04/2016 02/15/2016 Inactive bisoprolol 5 mg-hydrochlorothiazide 6.25 mg tablet RxNorm: 718216 1 Tablet(s) PO daily 11/19/2015 01/17/2016 Inactive bisoprolol 5 mg-hydrochlorothiazide 6.25 mg tablet RxNorm: 178698 1 Tablet(s) PO daily 11/04/2015 11/18/2015 Inactive oxycodone 20 mg tablet RxNorm: 6818609 1/2 Tablet(s) PO Q6 as needed 10/27/2015 01/03/2016 Inactive levothyroxine 150 mcg tablet RxNorm: 918501 1 Tablet(s) PO daily 08/26/2015 02/21/2016 Inactive [SAVINGS FOR NON-COVERED DRUGS -- BIN:280927, PCN: ASPROD1, Group: XXXXX, ID# [id number], Questions: . THIS IS NOT INSURANCE.] bisoprolol 5 mg-hydrochlorothiazide 6.25 mg tablet RxNorm: 279789 1 Tablet(s) PO daily 08/26/2015 10/24/2015 Inactive oxycodone 10 mg tablet RxNorm: 1385905 1 Tablet(s) PO Q6 as needed 05/06/2015 10/26/2015 Inactive levothyroxine 150 mcg tablet RxNorm: 458928 1 Tablet(s) PO daily 02/05/2015 08/03/2015 Inactive [SAVINGS FOR NON-COVERED DRUGS -- BIN:150825, PCN: ASPROD1, Group: XXXXX, ID# [id number], Questions: . THIS IS NOT INSURANCE.] Vitamin D2 50,000 unit capsule RxNorm: 107729 1 Capsule(s) PO weekly 02/05/2015 05/05/2015 Inactive [SAVINGS FOR NON-COVERED DRUGS -- BIN:[id number], PCN: ASPROD1, Group: XXXXX, ID# [id number], Questions: . THIS IS NOT INSURANCE.] Vitamin D2 50,000 unit capsule RxNorm: 139025 1 Capsule(s) PO weekly 02/05/2015 02/04/2015 Inactive bisoprolol 5 mg-hydrochlorothiazide 6.25 mg tablet RxNorm: 744733 1 Tablet(s) PO daily 01/26/2015 02/24/2015 Inactive levothyroxine 200 mcg tablet RxNorm: 973487 1 Tablet(s) PO daily 01/26/2015 01/25/2015 Inactive levothyroxine 200 mcg tablet RxNorm: 375426 1 Tablet(s) PO every other day 01/26/2015 02/04/2015 Inactive [SAVINGS FOR NON-COVERED DRUGS -- BIN:714753, PCN: ASPROD1, Group: XXXXX, ID# [id number], Questions: . THIS IS NOT INSURANCE.] aspirin 81 mg chewable tablet RxNorm: 536043 1 Tablet(s) PO daily No Start Date Active Plavix 75 mg tablet RxNorm: 567004 1 Tablet(s) PO daily manage by Dr Baig No Start Date Active simvastatin 40 mg tablet RxNorm: 468400 1 Tablet(s) PO QHS managed by Dr Baig No Start Date Active Colcrys 0.6 mg tablet RxNorm: 869999 2 tabs at onset then may repeat 1 tab in 1 hours if needed- Tablet(s) PO No Start Date 04/08/2017 Inactive then take daily until gout resolved aspirin 325 mg tablet RxNorm: 995100 1 Tablet(s) PO daily No Start Date 05/03/2016 Inactive levothyroxine 75 mcg tablet RxNorm: 145796 1 Tablet(s) PO every other day No Start Date 02/04/2015 Inactive takes qod with 200mcg oxycodone 10 mg tablet RxNorm: 1636614 1 Tablet(s) PO Q6 as needed No Start Date 05/05/2015 Inactive ketoconazole 2 % topical cream RxNorm: 292975 1 Gram(s) TOP BID to affected area until healed No Start Date 08/02/2017 Inactive indomethacin oral RxNorm: 5781 oral No Start Date 03/21/2017 Inactive Medication Administered No Medication Administered data Immunizations Vaccine Codes Date Status Pneumococcal (Adult) CVX: 33 02/05/2018 completed Pneumococcal (Adult) CVX: 133 11/30/2016 completed Assessments Condition Codes Effective Dates Type 2 diabetes mellitus with hyperglycemia ICD-10: E11.65 ICD-9: 250.00 03/12/2019 Dysuria ICD-10: R30.0 ICD-9: 788.1 03/12/2019 Chronic pain syndrome ICD-10: G89.4 ICD-9: 338.4 02/25/2019 Chronic kidney disease, stage 3 (moderate) ICD-10: N18.3 ICD-9: 585.3 02/25/2019 Essential (primary) hypertension ICD-10: I10 ICD-9: 401.1 02/25/2019 Cellulitis of left lower limb ICD-10: L03.116 ICD-9: 682.6 10/18/2018 Cellulitis of right lower limb ICD-10: L03.115 ICD-9: 682.6 10/18/2018 Localized edema ICD-10: R60.0 ICD-9: 782.3 10/18/2018 Weakness ICD-10: R53.1 ICD-9: 780.79 10/14/2018 Chronic obstructive pulmonary disease, unspecified ICD-10: J44.9 ICD-9: 496 10/14/2018 Malignant neoplasm of prostate ICD-10: C61 ICD-9: 185 10/04/2018 Type 2 diabetes mellitus with foot ulcer ICD-10: E11.621 ICD-9: 250.80 10/04/2018 Hypoxemia ICD-10: R09.02 ICD-9: 799.02 10/04/2018 Generalized abdominal pain ICD-10: R10.84 ICD-9: 789.07 02/20/2018 Gross hematuria ICD-10: R31.0 ICD-9: 599.71 02/20/2018 Unspecified jaundice ICD-10: R17 ICD-9: 782.4 02/20/2018 Encounter for screening for malignant neoplasm of prostate ICD- 10: Z12.5 ICD-9: V76.44 02/05/2018 Other specified hypothyroidism ICD-10: E03.8 ICD-9: 244.9 02/05/2018 Encounter for immunization ICD-10: Z23 ICD-9: V03.82 02/05/2018 Encounter for general adult medical examination with abnormal findings ICD-10: Z00.01 ICD-9: V70.0 11/30/2017 Essential (primary) hypertension ICD-10: I10 ICD-9: 401.9 09/20/2017 Chronic gout due to renal impairment, left ankle and foot, without 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 ICD-9: 274.19 03/22/2017 Encounter for immunization ICD-10: Z23 ICD-9: V03.9 11/30/2016 Vitamin B12 deficiency anemia due to intrinsic factor deficiency ICD-10: D51.0 ICD-9: 281.0 05/04/2016 CHRONIC PAIN SYNDROME ICD-9: 338.4 01/26/2015 Vitamin B12 deficiency ICD-9: 266.2 01/26/2015 ESSENTIAL HYPERTENSION ICD-9: 401.9 01/26/2015 HYPOTHYROIDISM ICD-9: 244.9 01/26/2015 GOUT ICD-9: 274.9 01/26/2015 ANEMIA ICD-9: 285.9 01/26/2015 Chronic renal insufficiency, stage III (moderate) ICD-9: 585.3 01/26/2015 Reason For Visit Reason For Visit Effective Dates Notes dysuria 03/12/2019 hypertension 02/25/2019 lower leg pain 10/18/2018 lower leg pain [...] Observation Code Item Item Code Result Date CULTURE, URINE M100 URINE CULTURE See Note 03/17/2019 %Hba1C Ecc301 % HbA1c 56902- 6 9.2 % 02/25/2019 %Hba1C Utt212 Gluc Ave 217 mg/dL 02/25/2019 Comp Metabolic Rku779 NA 136 mEq/L 02/25/2019 Comp Metabolic Scr904 K 4.8 mEq/L 02/25/2019 Comp Metabolic Gyt257 CL 95 mEq/L 02/25/2019 Comp Metabolic Sjs548 CO2 36.0 mEq/L 02/25/2019 Comp Metabolic Mdy628 ANION GAP 10 02/25/2019 Comp Metabolic Klx846 GLUCOSE 255 mg/dL 02/25/2019 Comp Metabolic Xoy744 Creat 1.2 mg/dL 02/25/2019 Comp Metabolic Dnv027 eGFR 62 ml/min/1.73m2 02/25/2019 Comp Metabolic Jsf376 BUN 29 mg/dL 02/25/2019 Comp Metabolic Tin368 B/C Ratio 24.0 Ratio 02/25/2019 Comp Metabolic Zyr978 CALCIUM 9.0 mg/dL 02/25/2019 Comp Metabolic Xbp091 ALK PHOS 102 U/L 02/25/2019 Comp Metabolic Wbd235 AST(SGOT) 12 U/L 02/25/2019 Comp Metabolic Vfa486 ALT(SGPT) 9 U/L 02/25/2019 Comp Metabolic Wbl492 BILI T 0.6 mg/dL 02/25/2019 Comp Metabolic Nyg519 ALBUMIN 3.8 g/dL 02/25/2019 Comp Metabolic Rqt832 TPRO 6.6 g/dL 02/25/2019 Comp Metabolic Icb054 GLOB 2.8 g/dL 02/25/2019 Comp Metabolic Ftt392 A/G Ratio 1.4 Ratio 02/25/2019 Comp Metabolic Tiz564 Osmo 286 mOsmo 02/25/2019 %Hba1C Sjc161 % HbA1c 24486- 6 6.4 % 08/30/2018 %Hba1C Rvl256 Gluc Ave 137 mg/dL 08/30/2018 Culture Urine [id number] URINE CULTURE SEE NOTES 02/22/2018 Urine Culture [...] 24.5 pg 02/20/2018 Cbc With Differential Ord2 Douglas% 8.9 % 02/20/2018 Cbc With Differential Ord2 [...] 0.81 K/ul 02/20/2018 Cbc With Differential Ord2 Douglas ABS# 0.7 K/ul 02/20/2018 Cbc With Differential Ord2 Eos ABS# 0.4 K/ul 02/20/2018 Cbc With Differential Ord2 Baso ABS# 0.0 K/ul 02/20/2018 %Hba1C Mdl231 % HbA1c 51424- 6 7.7 % 02/20/2018 %Hba1C Wng878 Gluc Ave 174 mg/dL 02/20/2018 Lipase Lyk360 LIPASE 17 U/L 02/20/2018 Microalbumin Efq844 MicroAlb 6.5 mg/dL 02/20/2018 Amylase Ord34 AMYLASE 15 U/L 02/20/2018 Free T4 Zjd951 FREE T4 0.61 ng/dL 02/20/2018 Lipid Ord30 CHOL 203 mg/dL 02/20/2018 Lipid Ord30 HDL 7.0 mg/dl 02/20/2018 Lipid Ord30 TRIG 271 mg/dL 02/20/2018 Lipid Ord30 LDL 142 mg/dL 02/20/2018 Lipid Ord30 C/HDL 29.0 Ratio 02/20/2018 Comp Metabolic Qns330 NA 134 mEq/L 02/20/2018 Comp Metabolic Mvo914 K 3.6 mEq/L 02/20/2018 Comp Metabolic Hlo263 CL 96 mEq/L 02/20/2018 Comp Metabolic Gri420 CO2 29.0 mEq/L 02/20/2018 Comp Metabolic Mfb192 ANION GAP 13 02/20/2018 Comp Metabolic Ieo499 GLUCOSE 165 mg/dL 02/20/2018 Comp Metabolic Xmp371 Creat 1.2 mg/dL 02/20/2018 Comp Metabolic Hly307 eGFR 63 ml/min/1.73m2 02/20/2018 Comp Metabolic Vst088 BUN 14 mg/dL 02/20/2018 Comp Metabolic Avq267 B/C Ratio 11.6 Ratio 02/20/2018 Comp Metabolic Pta145 CALCIUM 8.5 mg/dL 02/20/2018 Comp Metabolic Hxx487 ALK PHOS 633 U/L 02/20/2018 Comp Metabolic Omz942 AST(SGOT) 112 U/L 02/20/2018 Comp Metabolic Hif219 ALT(SGPT) 148 U/L 02/20/2018 Comp Metabolic Yut991 BILI T 6.8 mg/dL 02/20/2018 Comp Metabolic Jdy530 ALBUMIN 3.3 g/dL 02/20/2018 Comp Metabolic Wdu775 TPRO 5.9 g/dL 02/20/2018 Comp Metabolic Psp556 GLOB 2.6 g/dL 02/20/2018 Comp Metabolic Lvt598 A/G Ratio 1.3 Ratio 02/20/2018 Comp Metabolic Kiz138 Osmo 272 mOsmo 02/20/2018 Total Psa Ord10 [...] Metabolic Ord15 CALCIUM 9.2 mg/dL 11/09/2017 %Hba1C Vwm631 % HbA1c 36095- 6 8.0 % 11/09/2017 %Hba1C Gyu579 Gluc Ave 183 mg/dL 11/09/2017 Metabolic Ord15 [...] Ord15 CALCIUM 8.7 mg/dL 06/25/2017 Culture Wound [id number] WOUND CULTURE SEE NOTES 04/09/2017 Culture Wound [id number] Continued Results 04/09/2017 Amylase Ord34 AMYLASE 19 [...] 27.9 pg 03/22/2017 Cbc With Differential Ord2 Douglas% 8.3 % 03/22/2017 Cbc With Differential Ord2 [...] 1.35 K/ul 03/22/2017 Cbc With Differential Ord2 [facility] ABS# 1.4 K/ul 03/22/2017 Cbc With Differential Ord2 Eos ABS# 0.2 K/ul 03/22/2017 Cbc With Differential Ord2 Baso ABS# 0.0 K/ul 03/22/2017 Comp Metabolic Gpj397 NA 134 mEq/L 03/22/2017 Comp Metabolic Xkq715 K 4.5 mEq/L 03/22/2017 Comp Metabolic Sja469 CL 93 mEq/L 03/22/2017 Comp Metabolic Vde987 CO2 31.0 mEq/L 03/22/2017 Comp Metabolic Jhi395 ANION GAP 15 03/22/2017 Comp Metabolic Dtz094 GLUCOSE 198 mg/dL 03/22/2017 Comp Metabolic Iji202 Creat 1.5 mg/dL 03/22/2017 Comp Metabolic Fny679 eGFR 50 ml/min/1.73m2 03/22/2017 Comp Metabolic Amf582 BUN 32 mg/dL 03/22/2017 Comp Metabolic Ijr312 B/C Ratio 21.6 Ratio 03/22/2017 Comp Metabolic Eao000 CALCIUM 8.4 mg/dL 03/22/2017 Comp Metabolic Unf459 ALK PHOS 245 U/L 03/22/2017 Comp Metabolic Pqx133 AST(SGOT) 18 U/L 03/22/2017 Comp Metabolic Tkr652 ALT(SGPT) 17 U/L 03/22/2017 Comp Metabolic Mwt900 BILI T 0.8 mg/dL 03/22/2017 Comp Metabolic Ukn226 ALBUMIN 2.9 g/dL 03/22/2017 Comp Metabolic Ebv817 TPRO 6.3 g/dL 03/22/2017 Comp Metabolic Cdy431 GLOB 3.4 g/dL 03/22/2017 Comp Metabolic Erd499 A/G Ratio 0.8 Ratio 03/22/2017 Comp Metabolic Ktb468 Osmo 281 mOsmo 03/22/2017 Lipase Kch664 LIPASE 12 U/L 03/22/2017 Comp Metabolic Qmz258 NA 142 mEq/L 03/09/2017 Comp Metabolic Ntj455 K 4.8 mEq/L 03/09/2017 Comp Metabolic Kxk808 CL 103 mEq/L 03/09/2017 Comp Metabolic Vpy595 CO2 30.0 mEq/L 03/09/2017 Comp Metabolic Zpg351 ANION GAP 14 03/09/2017 Comp Metabolic Kdw760 GLUCOSE 152 mg/dL 03/09/2017 Comp Metabolic Bep839 Creat 1.3 mg/dL 03/09/2017 Comp Metabolic Otp750 eGFR 56 ml/min/1.73m2 03/09/2017 Comp Metabolic Qtv740 BUN 23 mg/dL 03/09/2017 Comp Metabolic Hto156 B/C Ratio 17.3 Ratio 03/09/2017 Comp Metabolic Zyb774 CALCIUM 8.5 mg/dL 03/09/2017 Comp Metabolic Eyo869 ALK PHOS 97 U/L 03/09/2017 Comp Metabolic Ktb900 AST(SGOT) 10 U/L 03/09/2017 Comp Metabolic Efs996 ALT(SGPT) 6 U/L 03/09/2017 Comp Metabolic Nov757 BILI T 0.4 mg/dL 03/09/2017 Comp Metabolic Brq223 ALBUMIN 3.4 g/dL 03/09/2017 Comp Metabolic Akk959 TPRO 6.2 g/dL 03/09/2017 Comp Metabolic Qby187 GLOB 2.8 g/dL 03/09/2017 Comp Metabolic Akm647 A/G Ratio 1.2 Ratio 03/09/2017 Comp Metabolic Gnj363 Osmo 290 mOsmo 03/09/2017 Free T4 Lnz856 FREE T4 0.86 ng/dL 03/08/2017 Cbc With [...] 28.2 pg 03/08/2017 Cbc With Differential Ord2 [place]% 8.7 % 03/08/2017 Cbc With Differential Ord2 [...] 1.63 K/ul 03/08/2017 Cbc With Differential Ord2 [facility] ABS# 0.9 K/ul 03/08/2017 Cbc With Differential Ord2 Eos ABS# 0.5 K/ul 03/08/2017 Cbc With Differential Ord2 Baso ABS# 0.0 K/ul 03/08/2017 Tsh Ord6 hTSH II 4.52 uIU/mL 03/08/2017 %Hba1C Ffy145 % HbA1c 49287- 6 8.5 % 03/08/2017 %Hba1C Dkv293 Gluc Ave 197 mg/dL 03/08/2017 %Hba1C Eiq838 % HbA1c 47980- 6 9.8 % 12/04/2016 %Hba1C Pcj969 Gluc Ave 235 mg/dL 12/04/2016 Tsh Ord6 hTSH II 10.65 uIU/mL 11/30/2016 Comp Metabolic Vbb367 NA 134 mEq/L 11/30/2016 Comp Metabolic Oub084 K 5.0 mEq/L 11/30/2016 Comp Metabolic Rnw275 CL 95 mEq/L 11/30/2016 Comp Metabolic Nuq255 CO2 34.0 mEq/L 11/30/2016 Comp Metabolic Ehr624 ANION GAP 10 11/30/2016 Comp Metabolic Bdy627 GLUCOSE 226 mg/dL 11/30/2016 Comp Metabolic Ckx560 Creat 1.3 mg/dL 11/30/2016 Comp Metabolic Eql505 eGFR 56 ml/min/1.73m2 11/30/2016 Comp Metabolic Dkl650 BUN 21 mg/dL 11/30/2016 Comp Metabolic Hzw452 B/C Ratio 15.7 Ratio 11/30/2016 Comp Metabolic Qwn740 CALCIUM 8.9 mg/dL 11/30/2016 Comp Metabolic Sub845 ALK PHOS 112 U/L 11/30/2016 Comp Metabolic Vzt715 AST(SGOT) 9 U/L 11/30/2016 Comp Metabolic Rvv876 ALT(SGPT) 7 U/L 11/30/2016 Comp Metabolic Aru457 BILI T 0.6 mg/dL 11/30/2016 Comp Metabolic Zjv764 ALBUMIN 3.6 g/dL 11/30/2016 Comp Metabolic Zbk099 TPRO 6.4 g/dL 11/30/2016 Comp Metabolic Crg335 GLOB 2.9 g/dL 11/30/2016 Comp Metabolic Obm183 A/G Ratio 1.2 Ratio 11/30/2016 Comp Metabolic Zrc301 Osmo 278 mOsmo 11/30/2016 Lipid Ord30 CHOL [...] 30.6 pg 11/30/2016 Cbc With Differential Ord2 [place]% 7.9 % 11/30/2016 Cbc With Differential Ord2 [...] 1.34 K/ul 11/30/2016 Cbc With Differential Ord2 [place] ABS# 0.8 K/ul 11/30/2016 Cbc With Differential Ord2 Eos ABS# 0.3 K/ul 11/30/2016 Cbc With Differential Ord2 Baso ABS# 0.0 K/ul 11/30/2016 Free T4 Imt352 FREE T4 0.89 ng/dL 11/30/2016 Review of Systems System Result Effective Dates Constitutional No recent illness 03/12/2019 Constitutional No chills 03/12/2019 Constitutional No diaphoresis 03/12/2019 Constitutional No fever 03/12/2019 Eyes No eye erythema 03/12/2019 Ears/Nose/Throat/Neck No nasal discharge 03/12/2019 Cardiovascular No chest pain/pressure 03/12/2019 Respiratory No cough 03/12/2019 Gastrointestinal No abdominal pain 03/12/2019 Genitourinary/Nephrology dysuria 03/12/2019 Genitourinary/Nephrology urinary urgency 03/12/2019 Genitourinary/Nephrology urinary frequency 03/12/2019 Neurologic No alteration of consciousness 03/12/2019 Neurologic No mental status change 03/12/2019 Constitutional No recent illness 02/25/2019 Constitutional No chills 02/25/2019 Constitutional No fatigue 02/25/2019 Constitutional No fever 02/25/2019 Eyes No blindness 02/25/2019 Eyes No vision change 02/25/2019 Ears/Nose/Throat/Neck No dizziness 02/25/2019 Ears/Nose/Throat/Neck No headache 02/25/2019 Cardiovascular No chest pain/pressure 02/25/2019 Cardiovascular No near-syncope/dizziness 02/25/2019 Cardiovascular No palpitations 02/25/2019 Respiratory No chest congestion 02/25/2019 Respiratory No cough 02/25/2019 Respiratory dyspnea 02/25/2019 Gastrointestinal No abdominal pain 02/25/2019 Gastrointestinal No constipation 02/25/2019 Gastrointestinal No diarrhea 02/25/2019 Gastrointestinal No nausea 02/25/2019 Gastrointestinal No vomiting 02/25/2019 Genitourinary/Nephrology No dysuria 02/25/2019 Musculoskeletal stiffness 02/25/2019 Musculoskeletal arthralgia(s) 02/25/2019 Musculoskeletal joint complaint 02/25/2019 Dermatologic No rash 02/25/2019 Dermatologic No scar 02/25/2019 Neurologic No alteration of consciousness 02/25/2019 Neurologic paresthesia 02/25/2019 Psychiatric No anxiety 02/25/2019 Psychiatric No depression 02/25/2019 Dermatologic sores 02/25/2019 Constitutional No recent illness 10/18/2018 Constitutional No chills 10/18/2018 Constitutional No diaphoresis 10/18/2018 Constitutional No fever 10/18/2018 Eyes No eye erythema 10/18/2018 Ears/Nose/Throat/Neck No nasal discharge 10/18/2018 Cardiovascular No chest pain/pressure 10/18/2018 Cardiovascular dyspnea 10/18/2018 Cardiovascular edema 10/18/2018 Cardiovascular No palpitations 10/18/2018 Respiratory No cough 10/18/2018 Respiratory dyspnea on exertion 10/18/2018 Dermatologic sores 10/18/2018 Neurologic No alteration of consciousness 10/18/2018 Neurologic No mental status change 10/18/2018 Constitutional No recent illness 10/14/2018 Constitutional No chills 10/14/2018 Constitutional No diaphoresis 10/14/2018 Constitutional No fever 10/14/2018 Eyes No eye erythema 10/14/2018 Ears/Nose/Throat/Neck No nasal discharge 10/14/2018 Cardiovascular No chest pain/pressure 10/14/2018 Cardiovascular edema 10/14/2018 Cardiovascular No palpitations 10/14/2018 Respiratory No cough 10/14/2018 Respiratory dyspnea on exertion 10/14/2018 Dermatologic sores 10/14/2018 Neurologic No alteration of consciousness 10/14/2018 Neurologic No mental status change 10/14/2018 Constitutional No recent illness 10/10/2018 Constitutional No chills 10/10/2018 Constitutional No diaphoresis 10/10/2018 Constitutional No fever 10/10/2018 Eyes No eye erythema 10/10/2018 Ears/Nose/Throat/Neck No nasal discharge 10/10/2018 Cardiovascular No chest pain/pressure 10/10/2018 Cardiovascular edema 10/10/2018 Cardiovascular dyspnea 10/10/2018 Cardiovascular No palpitations 10/10/2018 Respiratory No cough 10/10/2018 Respiratory dyspnea on exertion 10/10/2018 Dermatologic sores 10/10/2018 Neurologic No alteration of consciousness 10/10/2018 Neurologic No mental status change 10/10/2018 Constitutional No recent illness 10/04/2018 Constitutional No chills 10/04/2018 Constitutional No fatigue 10/04/2018 Constitutional No fever 10/04/2018 Eyes No blindness 10/04/2018 Eyes No vision change 10/04/2018 Ears/Nose/Throat/Neck No dizziness 10/04/2018 Ears/Nose/Throat/Neck No headache 10/04/2018 Cardiovascular No chest pain/pressure 10/04/2018 Cardiovascular No near-syncope/dizziness 10/04/2018 Cardiovascular No palpitations 10/04/2018 Respiratory No chest congestion 10/04/2018 Respiratory No cough 10/04/2018 Gastrointestinal No abdominal pain 10/04/2018 Gastrointestinal No constipation 10/04/2018 Gastrointestinal No diarrhea 10/04/2018 Gastrointestinal No nausea 10/04/2018 Gastrointestinal No vomiting 10/04/2018 Genitourinary/Nephrology No dysuria 10/04/2018 Musculoskeletal stiffness 10/04/2018 Musculoskeletal arthralgia(s) 10/04/2018 Dermatologic No rash 10/04/2018 Dermatologic No scar 10/04/2018 Neurologic No alteration of consciousness 10/04/2018 Psychiatric No anxiety 10/04/2018 Psychiatric No depression 10/04/2018 Musculoskeletal joint complaint 10/04/2018 Respiratory dyspnea 10/04/2018 Dermatologic skin lesion 10/04/2018 Neurologic paresthesia 10/04/2018 Constitutional No recent illness 08/29/2018 Constitutional No chills 08/29/2018 Constitutional No fatigue 08/29/2018 Constitutional No fever 08/29/2018 Eyes No blindness 08/29/2018 Eyes No vision change 08/29/2018 Ears/Nose/Throat/Neck No dizziness 08/29/2018 Ears/Nose/Throat/Neck No headache 08/29/2018 Cardiovascular No chest pain/pressure 08/29/2018 Cardiovascular No near-syncope/dizziness 08/29/2018 Cardiovascular No palpitations 08/29/2018 Respiratory No chest congestion 08/29/2018 Respiratory No cough 08/29/2018 Gastrointestinal No abdominal pain 08/29/2018 Gastrointestinal No constipation 08/29/2018 Gastrointestinal No diarrhea 08/29/2018 Gastrointestinal No nausea 08/29/2018 Gastrointestinal No vomiting 08/29/2018 Genitourinary/Nephrology No dysuria 08/29/2018 Musculoskeletal stiffness 08/29/2018 Musculoskeletal arthralgia(s) 08/29/2018 Dermatologic [...] nasal discharge 02/25/2018 Cardiovascular No chest pain/pressure 02/25/2018 Cardiovascular No dyspnea 02/25/2018 Respiratory No chest congestion 02/25/2018 Respiratory No cough 02/25/2018 Gastrointestinal abdominal pain 02/25/2018 Gastrointestinal constipation 02/25/2018 Gastrointestinal No diarrhea 02/25/2018 Gastrointestinal jaundice 02/25/2018 Gastrointestinal nausea 02/25/2018 Gastrointestinal No vomiting 02/25/2018 Genitourinary/Nephrology No dysuria 02/25/2018 Genitourinary/Nephrology hematuria 02/25/2018 Dermatologic No rash 02/25/2018 Neurologic No alteration of consciousness 02/25/2018 Neurologic No mental status change 02/25/2018 Constitutional recent illness 02/20/2018 Constitutional anorexia 02/20/2018 Constitutional obesity 02/20/2018 Constitutional No chills 02/20/2018 Constitutional No diaphoresis 02/20/2018 Constitutional No fever 02/20/2018 Constitutional fatigue 02/20/2018 Constitutional malaise 02/20/2018 Eyes No eye erythema 02/20/2018 Ears/Nose/Throat/Neck No nasal discharge 02/20/2018 Cardiovascular No chest pain/pressure 02/20/2018 Cardiovascular No dyspnea 02/20/2018 Respiratory No cough 02/20/2018 Respiratory No chest congestion 02/20/2018 Gastrointestinal abdominal pain 02/20/2018 Gastrointestinal constipation 02/20/2018 Gastrointestinal No diarrhea 02/20/2018 Gastrointestinal nausea 02/20/2018 Gastrointestinal No vomiting 02/20/2018 Genitourinary/Nephrology No dysuria 02/20/2018 Dermatologic No rash 02/20/2018 Neurologic No alteration of consciousness 02/20/2018 Neurologic No mental status change 02/20/2018 Gastrointestinal jaundice 02/20/2018 Genitourinary/Nephrology hematuria 02/20/2018 Constitutional No recent illness 02/05/2018 Constitutional No chills 02/05/2018 Constitutional No fatigue 02/05/2018 Constitutional No fever 02/05/2018 Eyes No blindness 02/05/2018 Eyes No vision change 02/05/2018 Ears/Nose/Throat/Neck No dizziness 02/05/2018 Ears/Nose/Throat/Neck No headache 02/05/2018 Cardiovascular No chest pain/pressure 02/05/2018 Cardiovascular No near-syncope/dizziness 02/05/2018 Cardiovascular No palpitations 02/05/2018 Respiratory No chest congestion 02/05/2018 Respiratory No cough 02/05/2018 Gastrointestinal No abdominal pain 02/05/2018 Gastrointestinal No constipation 02/05/2018 Gastrointestinal No diarrhea 02/05/2018 Gastrointestinal No nausea 02/05/2018 Gastrointestinal No vomiting 02/05/2018 Musculoskeletal stiffness 02/05/2018 Musculoskeletal arthralgia(s) 02/05/2018 Dermatologic No rash 02/05/2018 Dermatologic No scar 02/05/2018 Neurologic No alteration of consciousness 02/05/2018 Psychiatric No anxiety 02/05/2018 Psychiatric No depression 02/05/2018 Genitourinary/Nephrology No dysuria 02/05/2018 Constitutional No recent illness 11/30/2017 Constitutional No chills 11/30/2017 Constitutional No fatigue 11/30/2017 Constitutional No fever 11/30/2017 Eyes No blindness 11/30/2017 Eyes No vision change 11/30/2017 Ears/Nose/Throat/Neck No dizziness 11/30/2017 Ears/Nose/Throat/Neck No headache 11/30/2017 Cardiovascular No chest pain/pressure 11/30/2017 Cardiovascular No near-syncope/dizziness 11/30/2017 Cardiovascular No palpitations 11/30/2017 Respiratory No chest congestion 11/30/2017 Respiratory No cough 11/30/2017 Gastrointestinal No abdominal pain 11/30/2017 Gastrointestinal No constipation 11/30/2017 Gastrointestinal No diarrhea 11/30/2017 Gastrointestinal No nausea 11/30/2017 Gastrointestinal No vomiting 11/30/2017 Musculoskeletal stiffness 11/30/2017 Musculoskeletal arthralgia(s) 11/30/2017 Dermatologic No rash 11/30/2017 Dermatologic No scar 11/30/2017 Neurologic No alteration of consciousness 11/30/2017 Psychiatric No anxiety 11/30/2017 Psychiatric No depression 11/30/2017 Dermatologic sores 11/30/2017 Constitutional No anorexia 11/08/2017 Constitutional No night sweats 11/08/2017 Constitutional No chills 11/08/2017 Constitutional No diaphoresis 11/08/2017 Constitutional No fatigue 11/08/2017 Constitutional No fever 11/08/2017 Constitutional No insomnia 11/08/2017 Constitutional No malaise 11/08/2017 Eyes No blindness 11/08/2017 Eyes No vision change 11/08/2017 Ears/Nose/Throat/Neck No dizziness 11/08/2017 Cardiovascular No chest pain/pressure 11/08/2017 Cardiovascular No dyspnea 11/08/2017 Cardiovascular edema 11/08/2017 Respiratory No cough 11/08/2017 Respiratory No dyspnea on exertion 11/08/2017 Respiratory No dyspnea 11/08/2017 Gastrointestinal No hemorrhoids 11/08/2017 Gastrointestinal No abdominal pain 11/08/2017 Gastrointestinal No constipation 11/08/2017 Gastrointestinal No diarrhea 11/08/2017 Gastrointestinal No gastroesophageal reflux 11/08/2017 Gastrointestinal No melena 11/08/2017 Gastrointestinal No nausea 11/08/2017 Gastrointestinal No vomiting 11/08/2017 Genitourinary/Nephrology No dysuria 11/08/2017 Musculoskeletal joint complaint 11/08/2017 Neurologic paresthesia 11/08/2017 Psychiatric No anxiety 11/08/2017 Psychiatric No depression 11/08/2017 Constitutional No anorexia 09/20/2017 Constitutional No night sweats 09/20/2017 Constitutional No chills 09/20/2017 Constitutional No diaphoresis 09/20/2017 Constitutional No fatigue 09/20/2017 Constitutional No fever 09/20/2017 Constitutional No insomnia 09/20/2017 Constitutional No malaise 09/20/2017 Constitutional No weight loss 09/20/2017 Constitutional No weight gain 09/20/2017 Ears/Nose/Throat/Neck No dizziness 09/20/2017 Cardiovascular No chest pain/pressure 09/20/2017 Cardiovascular No dyspnea 09/20/2017 Cardiovascular edema 09/20/2017 Respiratory No cough 09/20/2017 Respiratory No dyspnea on exertion 09/20/2017 Respiratory No dyspnea 09/20/2017 Genitourinary/Nephrology No dysuria 09/20/2017 Musculoskeletal joint complaint 09/20/2017 Dermatologic sores 09/20/2017 Psychiatric No anxiety 09/20/2017 Psychiatric No depression 09/20/2017 Neurologic paresthesia 09/20/2017 Gastrointestinal No hemorrhoids 09/20/2017 Gastrointestinal No abdominal pain 09/20/2017 Gastrointestinal No constipation 09/20/2017 Gastrointestinal No diarrhea 09/20/2017 Gastrointestinal No gastroesophageal reflux 09/20/2017 Gastrointestinal No melena 09/20/2017 Gastrointestinal No nausea 09/20/2017 Gastrointestinal No vomiting 09/20/2017 Eyes No blindness 09/20/2017 Eyes No vision change 09/20/2017 Constitutional No anorexia 06/25/2017 Constitutional No night sweats 06/25/2017 Constitutional No chills 06/25/2017 Constitutional No diaphoresis 06/25/2017 Constitutional No fatigue 06/25/2017 Constitutional No fever 06/25/2017 Constitutional No insomnia 06/25/2017 Constitutional No malaise 06/25/2017 Constitutional No weight loss 06/25/2017 Constitutional No weight gain 06/25/2017 Cardiovascular No chest pain/pressure 06/25/2017 Cardiovascular No dyspnea 06/25/2017 Cardiovascular edema 06/25/2017 Respiratory No cough 06/25/2017 Respiratory No dyspnea on exertion 06/25/2017 Respiratory No dyspnea 06/25/2017 Genitourinary/Nephrology No dysuria 06/25/2017 Musculoskeletal joint complaint 06/25/2017 Dermatologic sores 06/25/2017 Ears/Nose/Throat/Neck No dizziness 06/25/2017 Dermatologic erythema 06/07/2017 Constitutional No recent illness 06/07/2017 Constitutional No anorexia 06/07/2017 Constitutional No night sweats 06/07/2017 Constitutional No chills 06/07/2017 Constitutional No diaphoresis 06/07/2017 Constitutional No fatigue 06/07/2017 Constitutional No fever 06/07/2017 Constitutional No insomnia 06/07/2017 Constitutional No malaise 06/07/2017 Cardiovascular edema 06/07/2017 Constitutional No anorexia 05/03/2017 Constitutional No night sweats 05/03/2017 Constitutional No chills 05/03/2017 Constitutional No diaphoresis 05/03/2017 Constitutional No fatigue 05/03/2017 Constitutional No fever 05/03/2017 Constitutional No insomnia 05/03/2017 Constitutional No malaise 05/03/2017 Constitutional No weight loss 05/03/2017 Constitutional No weight gain 05/03/2017 Cardiovascular No chest pain/pressure 05/03/2017 Cardiovascular No dyspnea 05/03/2017 Cardiovascular edema 05/03/2017 Respiratory No cough 05/03/2017 Respiratory No dyspnea on exertion 05/03/2017 Respiratory No dyspnea 05/03/2017 Genitourinary/Nephrology No dysuria 05/03/2017 Musculoskeletal joint complaint 05/03/2017 Dermatologic sores 05/03/2017 Constitutional recent illness 04/02/2017 Constitutional No anorexia 04/02/2017 Constitutional No night sweats 04/02/2017 Constitutional No chills 04/02/2017 Constitutional No diaphoresis 04/02/2017 Constitutional No fatigue 04/02/2017 Constitutional No fever 04/02/2017 Constitutional No insomnia 04/02/2017 Constitutional No malaise 04/02/2017 Constitutional No weight loss 04/02/2017 Constitutional No weight gain 04/02/2017 Cardiovascular No chest pain/pressure 04/02/2017 Cardiovascular No dyspnea 04/02/2017 Cardiovascular edema 04/02/2017 Respiratory No cough 04/02/2017 Respiratory No dyspnea on exertion 04/02/2017 Respiratory No dyspnea 04/02/2017 Genitourinary/Nephrology No dysuria 04/02/2017 Musculoskeletal joint complaint 04/02/2017 Dermatologic erythema 04/02/2017 Dermatologic cellulitis 04/02/2017 Constitutional recent illness 03/26/2017 Constitutional No anorexia 03/26/2017 Constitutional No night sweats 03/26/2017 Constitutional No chills 03/26/2017 Constitutional No diaphoresis 03/26/2017 Constitutional No fatigue 03/26/2017 Constitutional No fever 03/26/2017 Constitutional No insomnia 03/26/2017 Constitutional No malaise 03/26/2017 Constitutional No weight loss 03/26/2017 Constitutional No weight gain 03/26/2017 Cardiovascular No chest pain/pressure 03/26/2017 Cardiovascular No dyspnea 03/26/2017 Cardiovascular edema 03/26/2017 Respiratory No cough 03/26/2017 Respiratory No dyspnea on exertion 03/26/2017 Respiratory No dyspnea 03/26/2017 Genitourinary/Nephrology No dysuria 03/26/2017 Musculoskeletal joint complaint 03/26/2017 Dermatologic erythema 03/26/2017 Dermatologic cellulitis 03/26/2017 Constitutional recent illness 03/22/2017 Constitutional No anorexia 03/22/2017 Constitutional No night sweats 03/22/2017 Constitutional No chills 03/22/2017 Constitutional No diaphoresis 03/22/2017 Constitutional No fatigue 03/22/2017 Constitutional No fever 03/22/2017 Constitutional No insomnia 03/22/2017 Constitutional No malaise 03/22/2017 Constitutional No weight loss 03/22/2017 Constitutional No weight gain 03/22/2017 Cardiovascular No chest pain/pressure 03/22/2017 Cardiovascular No dyspnea 03/22/2017 Cardiovascular edema 03/22/2017 Respiratory No cough 03/22/2017 Respiratory No dyspnea on exertion 03/22/2017 Respiratory No dyspnea 03/22/2017 Musculoskeletal joint complaint 03/22/2017 Dermatologic erythema 03/22/2017 Dermatologic cellulitis 03/22/2017 Genitourinary/Nephrology No dysuria 03/22/2017 Constitutional No recent illness 03/08/2017 Constitutional No chills 03/08/2017 Constitutional No fatigue 03/08/2017 Constitutional No fever 03/08/2017 Eyes No blindness 03/08/2017 Eyes No vision change 03/08/2017 Ears/Nose/Throat/Neck No dizziness 03/08/2017 Ears/Nose/Throat/Neck No headache 03/08/2017 Cardiovascular No chest pain/pressure 03/08/2017 Cardiovascular No near-syncope/dizziness 03/08/2017 Cardiovascular No palpitations 03/08/2017 Respiratory No chest congestion 03/08/2017 Respiratory No cough 03/08/2017 Gastrointestinal No abdominal pain 03/08/2017 Gastrointestinal No constipation 03/08/2017 Gastrointestinal No diarrhea 03/08/2017 Gastrointestinal No nausea 03/08/2017 Gastrointestinal No vomiting 03/08/2017 Musculoskeletal stiffness 03/08/2017 Musculoskeletal arthralgia(s) 03/08/2017 Dermatologic No rash 03/08/2017 Dermatologic No scar 03/08/2017 Neurologic No alteration of consciousness 03/08/2017 Psychiatric No anxiety 03/08/2017 Psychiatric No depression 03/08/2017 Constitutional No recent illness 12/06/2016 Constitutional No anorexia 12/06/2016 Constitutional No night sweats 12/06/2016 Constitutional No chills 12/06/2016 Constitutional No diaphoresis 12/06/2016 Constitutional No fatigue 12/06/2016 Constitutional No fever 12/06/2016 Constitutional No insomnia 12/06/2016 Constitutional No malaise 12/06/2016 Constitutional No weight loss 12/06/2016 Constitutional obesity 12/06/2016 Eyes No eye pain 12/06/2016 Eyes No vision change 12/06/2016 Ears/Nose/Throat/Neck No dental pain 12/06/2016 Ears/Nose/Throat/Neck No dizziness 12/06/2016 Ears/Nose/Throat/Neck No facial pain 12/06/2016 Ears/Nose/Throat/Neck No headache 12/06/2016 Cardiovascular No chest pain/pressure 12/06/2016 Cardiovascular dyspnea 12/06/2016 Cardiovascular No exercise intolerance 12/06/2016 Cardiovascular No fatigue 12/06/2016 Cardiovascular No palpitations 12/06/2016 Respiratory No chest congestion 12/06/2016 Respiratory No chest tightness 12/06/2016 Respiratory No cigarette smoking 12/06/2016 Respiratory No cough 12/06/2016 Respiratory dyspnea on exertion 12/06/2016 Respiratory dyspnea 12/06/2016 Gastrointestinal No abdominal pain 12/06/2016 Gastrointestinal constipation 12/06/2016 Gastrointestinal No diarrhea 12/06/2016 Genitourinary/Nephrology No anuria/oliguria 12/06/2016 Genitourinary/Nephrology No dysuria 12/06/2016 Genitourinary/Nephrology No urinary urgency 12/06/2016 Genitourinary/Nephrology No urinary frequency 12/06/2016 Genitourinary/Nephrology No urinary incontinence 12/06/2016 Genitourinary/Nephrology No urinary retention/hesitancy 12/06/2016 Musculoskeletal stiffness 12/06/2016 Musculoskeletal swelling 12/06/2016 Musculoskeletal arthralgia(s) 12/06/2016 Musculoskeletal back pain 12/06/2016 Musculoskeletal bone pain 12/06/2016 Musculoskeletal joint complaint 12/06/2016 Dermatologic No rash 12/06/2016 Dermatologic No sores 12/06/2016 Neurologic No alteration of consciousness 12/06/2016 Neurologic No dizziness 12/06/2016 Neurologic No headache 12/06/2016 Neurologic No memory loss 12/06/2016 Neurologic No mental status change 12/06/2016 Psychiatric No anxiety 12/06/2016 Psychiatric No depression 12/06/2016 Endocrine No polydipsia 12/06/2016 Endocrine No polyuria 12/06/2016 Endocrine No sweating 12/06/2016 Endocrine No weakness 12/06/2016 Hematologic/Lymphatic No abnormal ecchymoses 12/06/2016 Hematologic/Lymphatic No abnormal bleeding and bruising 12/06/2016 Neurologic paresthesia 12/06/2016 Constitutional No recent illness 11/30/2016 Constitutional No anorexia 11/30/2016 Constitutional No night sweats 11/30/2016 Constitutional No chills 11/30/2016 Constitutional No diaphoresis 11/30/2016 Constitutional No fatigue 11/30/2016 Constitutional No fever 11/30/2016 Constitutional No insomnia 11/30/2016 Constitutional No malaise 11/30/2016 Constitutional No weight loss 11/30/2016 Constitutional obesity 11/30/2016 Eyes No eye pain 11/30/2016 Eyes No vision change 11/30/2016 Ears/Nose/Throat/Neck No dizziness 11/30/2016 Ears/Nose/Throat/Neck No headache 11/30/2016 Ears/Nose/Throat/Neck No dental pain 11/30/2016 Ears/Nose/Throat/Neck No facial pain 11/30/2016 Cardiovascular dyspnea 11/30/2016 Cardiovascular No palpitations 11/30/2016 Cardiovascular No chest pain/pressure 11/30/2016 Cardiovascular No exercise intolerance 11/30/2016 Cardiovascular No fatigue 11/30/2016 Respiratory No cough 11/30/2016 Respiratory No cigarette smoking 11/30/2016 Respiratory No chest tightness 11/30/2016 Respiratory No chest congestion 11/30/2016 Respiratory dyspnea on exertion 11/30/2016 Respiratory dyspnea 11/30/2016 Gastrointestinal No abdominal pain 11/30/2016 Gastrointestinal constipation 11/30/2016 Gastrointestinal No diarrhea 11/30/2016 Genitourinary/Nephrology No dysuria 11/30/2016 Genitourinary/Nephrology No anuria/oliguria 11/30/2016 Genitourinary/Nephrology No urinary retention/hesitancy 11/30/2016 Genitourinary/Nephrology No urinary incontinence 11/30/2016 Genitourinary/Nephrology No urinary frequency 11/30/2016 Genitourinary/Nephrology No urinary urgency 11/30/2016 Musculoskeletal stiffness 11/30/2016 Musculoskeletal swelling 11/30/2016 Musculoskeletal arthralgia(s) 11/30/2016 Musculoskeletal back pain 11/30/2016 Musculoskeletal bone pain 11/30/2016 Musculoskeletal joint complaint 11/30/2016 Dermatologic No rash 11/30/2016 Dermatologic No sores 11/30/2016 Neurologic No alteration of consciousness 11/30/2016 Neurologic No dizziness 11/30/2016 Neurologic No headache 11/30/2016 Neurologic No memory loss 11/30/2016 Neurologic No mental status change 11/30/2016 Psychiatric No anxiety 11/30/2016 Psychiatric No depression 11/30/2016 Endocrine No polydipsia 11/30/2016 Endocrine No polyuria 11/30/2016 Endocrine No sweating 11/30/2016 Endocrine No weakness 11/30/2016 Hematologic/Lymphatic No abnormal ecchymoses 11/30/2016 Hematologic/Lymphatic No abnormal bleeding and bruising 11/30/2016 Constitutional weight gain 11/30/2016 Constitutional No recent illness 11/28/2016 Constitutional No chills 11/28/2016 Constitutional No fatigue 11/28/2016 Constitutional No fever 11/28/2016 Eyes No eye discharge 11/28/2016 Eyes No eye erythema 11/28/2016 Eyes No vision change 11/28/2016 Ears/Nose/Throat/Neck No headache 11/28/2016 Ears/Nose/Throat/Neck No nasal allergies 11/28/2016 Ears/Nose/Throat/Neck No nasal discharge 11/28/2016 Cardiovascular No chest pain/pressure 11/28/2016 Cardiovascular No dyspnea 11/28/2016 Cardiovascular No edema 11/28/2016 Respiratory No chest congestion 11/28/2016 Respiratory No cough 11/28/2016 Gastrointestinal No abdominal pain 11/28/2016 Gastrointestinal No constipation 11/28/2016 Gastrointestinal No diarrhea 11/28/2016 Gastrointestinal No nausea 11/28/2016 Gastrointestinal No vomiting 11/28/2016 Musculoskeletal stiffness 11/28/2016 Musculoskeletal arthralgia(s) 11/28/2016 Dermatologic No rash 11/28/2016 Dermatologic No scar 11/28/2016 Neurologic No alteration of consciousness 11/28/2016 Psychiatric No anxiety 11/28/2016 Psychiatric No depression 11/28/2016 Constitutional No recent illness 05/04/2016 Constitutional No chills 05/04/2016 Constitutional No fatigue 05/04/2016 Constitutional No fever 05/04/2016 Eyes No eye discharge 05/04/2016 Eyes No eye erythema 05/04/2016 Eyes No vision change 05/04/2016 Ears/Nose/Throat/Neck No headache 05/04/2016 Ears/Nose/Throat/Neck No nasal allergies 05/04/2016 Ears/Nose/Throat/Neck No nasal discharge 05/04/2016 Cardiovascular No chest pain/pressure 05/04/2016 Cardiovascular No dyspnea 05/04/2016 Cardiovascular No edema 05/04/2016 Respiratory No chest congestion 05/04/2016 Respiratory No cough 05/04/2016 Gastrointestinal No abdominal pain 05/04/2016 Gastrointestinal No constipation 05/04/2016 Gastrointestinal No diarrhea 05/04/2016 Gastrointestinal No nausea 05/04/2016 Gastrointestinal No vomiting 05/04/2016 Musculoskeletal stiffness 05/04/2016 Musculoskeletal arthralgia(s) 05/04/2016 Dermatologic No rash 05/04/2016 Dermatologic No scar 05/04/2016 Neurologic No alteration of consciousness 05/04/2016 Psychiatric No anxiety 05/04/2016 Psychiatric No depression 05/04/2016 Constitutional No recent illness 11/04/2015 Constitutional No chills 11/04/2015 Constitutional No fatigue 11/04/2015 Constitutional No fever 11/04/2015 Eyes No vision change 11/04/2015 Ears/Nose/Throat/Neck No headache 11/04/2015 Cardiovascular No chest pain/pressure 11/04/2015 Respiratory No chest congestion 11/04/2015 Respiratory No cough 11/04/2015 Gastrointestinal No abdominal pain 11/04/2015 Gastrointestinal No constipation 11/04/2015 Gastrointestinal No diarrhea 11/04/2015 Gastrointestinal No nausea [...] No edema 11/04/2015 Constitutional No recent illness 07/30/2015 Constitutional No chills 07/30/2015 Constitutional No fatigue 07/30/2015 Constitutional No fever 07/30/2015 Eyes No blindness 07/30/2015 Eyes No vision change 07/30/2015 Ears/Nose/Throat/Neck No dizziness 07/30/2015 Ears/Nose/Throat/Neck No headache 07/30/2015 Cardiovascular No chest pain/pressure 07/30/2015 Cardiovascular No near-syncope/dizziness 07/30/2015 Cardiovascular No palpitations 07/30/2015 Respiratory No chest congestion 07/30/2015 Respiratory No cough 07/30/2015 Gastrointestinal No abdominal pain 07/30/2015 Gastrointestinal No constipation 07/30/2015 Gastrointestinal No diarrhea 07/30/2015 Gastrointestinal No nausea 07/30/2015 Gastrointestinal No vomiting 07/30/2015 Musculoskeletal stiffness 07/30/2015 Musculoskeletal arthralgia(s) 07/30/2015 Dermatologic No rash 07/30/2015 Dermatologic No scar 07/30/2015 Neurologic No alteration of consciousness 07/30/2015 Psychiatric No anxiety 07/30/2015 Psychiatric No depression 07/30/2015 Constitutional No chills 01/26/2015 Constitutional No fatigue 01/26/2015 Constitutional No fever 01/26/2015 Constitutional No recent illness 01/26/2015 Ears/Nose/Throat/Neck No dizziness 01/26/2015 Ears/Nose/Throat/Neck No headache 01/26/2015 Cardiovascular No chest pain/pressure 01/26/2015 Cardiovascular No near-syncope/dizziness 01/26/2015 Cardiovascular No palpitations 01/26/2015 Respiratory No chest congestion 01/26/2015 Respiratory No cough 01/26/2015 Gastrointestinal No abdominal pain 01/26/2015 Gastrointestinal No constipation 01/26/2015 Gastrointestinal No diarrhea 01/26/2015 Gastrointestinal No nausea 01/26/2015 Gastrointestinal No vomiting 01/26/2015 Genitourinary/Nephrology No dysuria 01/26/2015 Neurologic No alteration of consciousness 01/26/2015 Psychiatric [...] 1994 Constitutional general appearance Overall: well developed 03/12/2019 None Full Exam - General 1994 Constitutional general appearance Overall: in no acute distress 03/12/2019 None Full Exam - General 1994 Constitutional general appearance Overall: well nourished 03/12/2019 None Full Exam - General 1994 Eyes conjunctiva/eyelids Overall: conjunctiva clear 03/12/2019 None Full Exam - General 1994 Eyes conjunctiva/eyelids Overall: cornea clear 03/12/2019 None Full Exam - General 1994 Eyes conjunctiva/eyelids Overall: eyelids normal 03/12/2019 None Full Exam - General 1994 Ears/Nose/Throat lips/teeth/gingiva Overall: benign lips 03/12/2019 None Full Exam - General 1994 Ears/Nose/Throat oral cavity/pharynx/larynx Overall: oral mucosa clear 03/12/2019 None Full Exam - General 1994 Respiratory respiratory effort/rhythm Overall: no retractions 03/12/2019 None Full Exam - General 1994 Respiratory respiratory effort/rhythm Overall: normal rate 03/12/2019 None Full Exam - General 1994 Cardiovascular auscultation of heart Overall: regular rate 03/12/2019 None Full Exam - General 1995 Cardiovascular auscultation of heart Overall: normal heart sounds 03/12/2019 None Full Exam - General 1995 Musculoskeletal head and neck Overall: head atraumatic 03/12/2019 None Full Exam - General 1994 Neurologic cranial nerves Overall: crainial nerves 2 - 12 grossly intact 03/12/2019 None Full Exam - General 1994 Psychiatric orientation/consciousness Overall: oriented to person, place and time 03/12/2019 None Full Exam - General 1994 Psychiatric mood and affect Overall: normal mood and affect 03/12/2019 None Full Exam - General 1995 Constitutional general appearance Development: well developed 02/25/2019 None Full Exam - General 1995 Constitutional general appearance Development: appears stated age 0602/25/2019 None Full Exam - General 1994 Constitutional general appearance Hygiene/Attention to Grooming: good hygiene 02/25/2019 None Full Exam - General 1994 Eyes conjunctiva/eyelids Overall: conjunctiva clear 02/25/2019 None Full Exam - General 1994 Eyes conjunctiva/eyelids Overall: cornea clear 02/25/2019 None Full Exam - General 1994 Eyes conjunctiva/eyelids Overall: eyelids normal 02/25/2019 None Full Exam - General 1994 Eyes pupils and irises Overall: pupils equal, round, reactive to light and accomodation 02/25/2019 None Full Exam - General 1994 Ears/Nose/Throat lips/teeth/gingiva Teeth: edentulous 02/25/2019 None Full Exam - General 1994 Respiratory auscultation Overall: breath sounds clear bilaterally 02/25/2019 None Full Exam - General 1994 Respiratory respiratory effort/rhythm Overall: no retractions 02/25/2019 None Full Exam - General 1994 Respiratory respiratory effort/rhythm Overall: normal rate 02/25/2019 None Full Exam - General 1994 Cardiovascular extremities Overall: no clubbing 02/25/2019 None Full Exam - General 1994 Cardiovascular auscultation of heart Overall: regular rate 02/25/2019 None Full Exam - General 1994 Cardiovascular auscultation of heart Overall: normal heart sounds 02/25/2019 None Full Exam - General 1994 Cardiovascular auscultation of heart Systolic murmur: early systolic 02/25/2019 None Full Exam - General 1994 Cardiovascular auscultation of heart Systolic murmur grade: II/ 02/25/2019 None Full Exam - General 1994 Abdomen abdominal exam Overall: normal bowel sounds 02/25/2019 None Full Exam - General 1994 Lymphatic neck nodes Overall: anterior cervical chain benign 02/25/2019 None Full Exam - General 1994 Lymphatic neck nodes Overall: posterior cervical chain benign 02/25/2019 None Full Exam - General 1994 Musculoskeletal spine, ribs and pelvis Posture: kyphosis 02/25/2019 None Full Exam - General 1994 Musculoskeletal head and neck Overall: head atraumatic 02/25/2019 None Full Exam - General 1994 Musculoskeletal head and neck Overall: cervical spine benign 02/25/2019 None Full Exam - General 1994 Integument inspection of skin Overall: few scattered moles, no gross abnormalities 02/25/2019 None Full Exam - General 1994 Neurologic sensation Touch: (specify location of deficit): light touch decreased TA-[id number] 02/25/2019 None Full Exam - General 1994 Neurologic cranial nerves Overall: crainial nerves 2 - 12 grossly intact 02/25/2019 None Full Exam - General 1994 Psychiatric orientation/consciousness Overall: oriented to person, place and time 02/25/2019 None Full Exam - General 1994 Psychiatric mood and affect Overall: normal mood and affect 02/25/2019 None Full Exam - General 1994 Constitutional general appearance Assistive Device: cane 02/25/2019 None Full Exam - General 1994 Constitutional general appearance Overall: well developed 10/18/2018 None Full Exam - General 1994 Constitutional general appearance Overall: in no acute distress 10/18/2018 None Full Exam - General 1994 Constitutional general appearance Overall: well nourished 10/18/2018 None Full Exam - General 1994 Eyes conjunctiva/eyelids Overall: conjunctiva clear 10/18/2018 None Full Exam - General 1994 Eyes conjunctiva/eyelids Overall: cornea clear 10/18/2018 None Full Exam - General 1994 Eyes conjunctiva/eyelids Overall: eyelids normal 10/18/2018 None Full Exam [...] pitting 10/18/2018 None Full Exam - General 1995 Cardiovascular extremities Edema present: severity 1+ - 4+: 3-4+ 10/18/2018 None Full Exam - General 1995 Cardiovascular extremities Edema present: bilateral 10/18/2018 None Full Exam - General 1995 Cardiovascular extremities Edema present: to thighs 10/18/2018 None Full Exam - General 1994 Cardiovascular auscultation of heart Overall: regular rate 10/18/2018 None Full Exam - General 1994 Musculoskeletal head and neck Overall: head atraumatic 10/18/2018 None Full Exam - General 1995 [...] None Full Exam - General 1994 Eyes conjunctiva/eyelids Overall: conjunctiva clear 10/14/2018 None Full Exam - General 1994 Eyes conjunctiva/eyelids Overall: cornea clear 10/14/2018 None Full Exam - General 1994 Eyes conjunctiva/eyelids Overall: eyelids normal 10/14/2018 None Full Exam [...] Cardiovascular extremities Edema present: severity 1+ - 4+: 4+ 10/14/2018 None Full Exam - General 1995 Cardiovascular extremities Edema present: bilateral 10/14/2018 None [...] None Full Exam - General 1994 Eyes conjunctiva/eyelids Overall: eyelids normal 10/10/2018 None Full Exam - General 1994 Eyes conjunctiva/eyelids Overall: cornea clear 10/10/2018 None Full Exam - General 1994 Eyes conjunctiva/eyelids Overall: conjunctiva clear 10/10/2018 None Full Exam [...] 10/10/2018 None Full Exam - General 1995 Cardiovascular extremities Edema present: pitting 10/10/2018 None Full Exam - General 1994 Cardiovascular extremities Edema present: severity 1+ - 4+: 4+ 10/10/2018 None Full Exam - General [...] None Full Exam - General 1994 Eyes conjunctiva/eyelids Overall: conjunctiva clear 10/04/2018 None Full Exam - General 1994 Eyes conjunctiva/eyelids Overall: cornea clear 10/04/2018 None Full Exam - General 1994 Eyes conjunctiva/eyelids Overall: eyelids normal 10/04/2018 None Full Exam [...] None Full Exam - General 1994 Eyes conjunctiva/eyelids Overall: conjunctiva clear 08/29/2018 None Full Exam - General 1994 Eyes conjunctiva/eyelids Overall: cornea clear 08/29/2018 None Full Exam - General 1994 Eyes conjunctiva/eyelids Overall: eyelids normal 08/29/2018 None Full Exam [...] None Full Exam - General 1994 Eyes conjunctiva/eyelids Overall: eyelids normal 02/25/2018 None Full Exam [...] None Full Exam - General 1994 Eyes conjunctiva/eyelids Overall: conjunctiva clear 02/25/2018 None Full Exam - General 1994 Constitutional general appearance Overall: well developed 02/20/2018 None Full Exam - General 1994 Constitutional general appearance Overall: in no acute distress 02/20/2018 None Full Exam - General 1994 Constitutional general appearance Nourishment: obese 02/20/2018 None Full Exam - General 1994 Eyes conjunctiva/eyelids Overall: eyelids normal 02/20/2018 None Full Exam - General 1994 Eyes conjunctiva/eyelids Conjunctiva: clear 02/20/2018 Jaundice Full Exam - [...] None Full Exam - General 1994 Eyes conjunctiva/eyelids Overall: conjunctiva clear 02/05/2018 None Full Exam - General 1994 Eyes conjunctiva/eyelids Overall: cornea clear 02/05/2018 None Full Exam - General 1994 Eyes conjunctiva/eyelids Overall: eyelids normal 02/05/2018 None Full Exam [...] None Full Exam - General 1994 Eyes conjunctiva/eyelids Overall: conjunctiva clear 11/30/2017 None Full Exam - General 1994 Eyes conjunctiva/eyelids Overall: cornea clear 11/30/2017 None Full Exam - General 1994 Eyes conjunctiva/eyelids Overall: eyelids normal 11/30/2017 None Full Exam [...] None Full Exam - General 1995 Eyes conjunctiva/eyelids Overall: conjunctiva clear 11/08/2017 None Full Exam - General 1994 Eyes conjunctiva/eyelids Overall: cornea clear 11/08/2017 None Full Exam - General 1995 Eyes conjunctiva/eyelids Overall: eyelids normal 11/08/2017 None Full Exam [...] None Full Exam - General 1994 Eyes conjunctiva/eyelids Overall: conjunctiva clear 09/20/2017 None Full Exam - General 1994 Eyes conjunctiva/eyelids Overall: cornea clear 09/20/2017 None Full Exam - General 1994 Eyes conjunctiva/eyelids Overall: eyelids normal 09/20/2017 None Full Exam [...] None Full Exam - General 1994 Eyes conjunctiva/eyelids Overall: conjunctiva clear 06/25/2017 None Full Exam - General 1994 Eyes conjunctiva/eyelids Overall: cornea clear 06/25/2017 None Full Exam - General 1994 Eyes conjunctiva/eyelids Overall: eyelids normal 06/25/2017 None Full Exam [...] None Full Exam - General 1994 Eyes conjunctiva/eyelids Overall: conjunctiva clear 06/07/2017 None Full Exam - General 1994 Eyes conjunctiva/eyelids Overall: cornea clear 06/07/2017 None Full Exam - General 1994 Eyes conjunctiva/eyelids Overall: eyelids normal 06/07/2017 None Full Exam [...] None Full Exam - General 1994 Eyes conjunctiva/eyelids Overall: conjunctiva clear 05/03/2017 None Full Exam - General 1994 Eyes conjunctiva/eyelids Overall: cornea clear 05/03/2017 None Full Exam - General 1994 Eyes conjunctiva/eyelids Overall: eyelids normal 05/03/2017 None Full Exam [...] None Full Exam - General 1994 Eyes conjunctiva/eyelids Overall: conjunctiva clear 04/02/2017 None Full Exam - General 1994 Eyes conjunctiva/eyelids Overall: cornea clear 04/02/2017 None Full Exam - General 1994 Eyes conjunctiva/eyelids Overall: eyelids normal 04/02/2017 None Full Exam [...] Cardiovascular extremities Edema present: severity 1+ - 4+: 4+ bilateral to mid thigh-weeping left lower leg 04/02/2017 None Full Exam - General [...] None Full Exam - General 1994 Eyes conjunctiva/eyelids Overall: conjunctiva clear 03/26/2017 None Full Exam - General 1994 Eyes conjunctiva/eyelids Overall: cornea clear 03/26/2017 None Full Exam - General 1994 Eyes conjunctiva/eyelids Overall: eyelids normal 03/26/2017 None Full Exam [...] Cardiovascular extremities Edema present: severity 1+ - 4+: 4+ bilateral to mid thigh-weeping left lower leg 03/26/2017 None Full Exam - General [...] None Full Exam - General 1994 Eyes conjunctiva/eyelids Overall: conjunctiva clear 03/22/2017 None Full Exam - General 1994 Eyes conjunctiva/eyelids Overall: cornea clear 03/22/2017 None Full Exam - General 1994 Eyes conjunctiva/eyelids Overall: eyelids normal 03/22/2017 None Full Exam [...] Cardiovascular extremities Edema present: severity 1+ - 4+: 4+ bilateral to mid thigh-weeping left lower leg 03/22/2017 None Full Exam - General 1994 Constitutional general appearance Development: well developed 03/08/2017 None Full Exam - General 1994 Constitutional general appearance Development: appears stated age 0603/08/2017 None Full Exam - General 1994 Constitutional general appearance Hygiene/Attention to Grooming: good hygiene 03/08/2017 None Full Exam - General 1994 Eyes conjunctiva/eyelids Overall: conjunctiva clear 03/08/2017 None Full Exam - General 1994 Eyes conjunctiva/eyelids Overall: cornea clear 03/08/2017 None Full Exam - General 1994 Eyes conjunctiva/eyelids Overall: eyelids normal 03/08/2017 None Full Exam [...] None Full Exam - General 1994 Eyes conjunctiva/eyelids Overall: conjunctiva clear 12/06/2016 None Full Exam - General 1994 Eyes conjunctiva/eyelids Overall: cornea clear 12/06/2016 None Full Exam - General 1994 Eyes conjunctiva/eyelids Overall: eyelids normal 12/06/2016 None Full Exam [...] None Full Exam - General 1994 Eyes conjunctiva/eyelids Overall: conjunctiva clear 11/30/2016 None Full Exam - General 1994 Eyes conjunctiva/eyelids Overall: cornea clear 11/30/2016 None Full Exam - General 1994 Eyes conjunctiva/eyelids Overall: eyelids normal 11/30/2016 None Full Exam [...] None Full Exam - General 1994 Eyes conjunctiva/eyelids Overall: conjunctiva clear 11/28/2016 None Full Exam - General 1994 Eyes conjunctiva/eyelids Overall: cornea clear 11/28/2016 None Full Exam - General 1994 Eyes conjunctiva/eyelids Overall: eyelids normal 11/28/2016 None Full Exam [...] None Full Exam - General 1994 Eyes conjunctiva/eyelids Overall: conjunctiva clear 05/04/2016 None Full Exam - General 1994 Eyes conjunctiva/eyelids Overall: cornea clear 05/04/2016 None Full Exam - General 1994 Eyes conjunctiva/eyelids Overall: eyelids normal 05/04/2016 None Full Exam [...] None Full Exam - General 1994 Eyes conjunctiva/eyelids Overall: conjunctiva clear 11/04/2015 None Full Exam - General 1994 Eyes conjunctiva/eyelids Overall: cornea clear 11/04/2015 None Full Exam - General 1994 Eyes conjunctiva/eyelids Overall: eyelids normal 11/04/2015 None Full Exam [...] None Full Exam - General 1994 Eyes conjunctiva/eyelids Overall: conjunctiva clear 07/30/2015 None Full Exam - General 1994 Eyes conjunctiva/eyelids Overall: cornea clear 07/30/2015 None Full Exam - General 1994 Eyes conjunctiva/eyelids Overall: eyelids normal 07/30/2015 None Full Exam [...] None Full Exam - General 1994 Eyes conjunctiva/eyelids Overall: conjunctiva clear 01/26/2015 None Full Exam - General 1994 Eyes conjunctiva/eyelids Overall: cornea clear 01/26/2015 None Full Exam - General 1994 Eyes conjunctiva/eyelids Overall: eyelids normal 01/26/2015 None Full Exam [...] kyphosis 01/26/2015 None Procedures Procedure Codes Date URINALYSIS NONAUTO W/O SCOPE CPT-4: 21699 03/12/2019 ADMIN PNEUMOCOCCAL VACCINE SNOMED CT: 66927786 CPT-4: G0009 02/05/2018 Pneumococcal Polysaccharide Vaccine, 23-Valent, Ad CPT-4: 31815 02/05/2018 PPPS, SUBSEQ VISIT CPT- 4: G0439 11/30/2017 URINALYSIS NONAUTO W/O SCOPE CPT-4: 24871 03/22/2017 URINALYSIS NONAUTO W/O SCOPE CPT-4: 98278 03/21/2017 PPPS, SUBSEQ VISIT CPT- 4: G0439 11/30/2016 PNEUMOCOCCAL VACC 13 JAVIER IM Formatting Model/CDA Sections, Assigned to SNOMED CT: 89973411 CPT-4: [id number] 11/30/2016 ADMIN PNEUMOCOCCAL VACCINE SNOMED CT: 87632094 CPT-4: G0009 11/30/2016 Vital Signs Date Vital 03/12/2019 Blood Pressure 1: 140/52 Code: 8480-6 Heart Rate 1: 60 bpm Height: 5'10" SpO2: 96% Weight: 02/25/2019 Blood Pressure 1: 110/58 Code: 8480-6 BMI: 38.3 Code: 98924-8 Heart Rate 1: 47 bpm Height: 5'10" SpO2: 97% Weight: 267 lbs 10/18/2018 Blood Pressure 1: 118/70 Code: 8480-6 BMI: 39.0 Code: 35754-1 Heart Rate 1: 86 bpm Height: 5'10" SpO2: 95% Weight: 272 lbs 10/14/2018 Blood Pressure 1: 120/56 Code: 8480-6 Heart Rate 1: 67 bpm Height: 5'10" SpO2: 92% 10/10/2018 Blood Pressure 1: 126/70 Code: 8480-6 BMI: 34.7 Code: 22806-9 Heart Rate 1: 80 bpm Height: 5'10" SpO2: 96% Temperature: 37.1 (C) / 98.7 (F) Weight: 242 lbs 10/04/2018 Blood Pressure 1: 120/70 Code: 8480-6 Height: 5'10" SpO2: 96% 08/29/2018 Blood Pressure 1: 104/60 Code: 8480-6 BMI: 34.6 Code: 30675-2 Heart Rate 1: 68 bpm Height: 5'10" SpO2: 98% Weight: 241 lbs 02/25/2018 Blood Pressure 1: 120/70 Code: 8480-6 BMI: 37.0 Code: 69243-4 Heart Rate 1: 51 bpm Height: 5'10" SpO2: 97% Weight: 258 lbs 02/20/2018 Blood Pressure 1: 124/70 Code: 8480-6 BMI: 38.0 Code: 67154-5 Heart Rate 1: 60 bpm Height: 5'10" SpO2: 96% Weight: 265 lbs 02/05/2018 Blood Pressure 1: 116/ Code: 8480-6 BMI: 38.0 Code: 43868-4 Heart Rate 1: 63 bpm Height: 5'10" SpO2: 98% Weight: 265 lbs 11/30/2017 Blood Pressure 1: 132/60 Code: 8480-6 BMI: 37.0 Code: 65067-7 Heart Rate 1: 100 bpm Height: 5'10" SpO2: 96% Waist Measure (cm): 122 cm Weight: 258 lbs 11/08/2017 Blood Pressure 1: 126/64 Code: 8480-6 BMI: 37.2 Code: 96151-2 Heart Rate 1: 92 bpm Height: 5'10" SpO2: 94% Weight: 259 lbs 09/20/2017 Blood Pressure 1: 122/68 Code: 8480-6 BMI: 36.9 Code: 53664-7 Heart Rate 1: 57 bpm Height: 5'10" SpO2: 96% Weight: 257 lbs 06/25/2017 Blood Pressure 1: 124/68 Code: 8480-6 BMI: 37.0 Code: 27834-7 Height: 5'10" Weight: 258 lbs 06/07/2017 Blood Pressure 1: 122/64 Code: 8480-6 BMI: 37.0 Code: 13299-3 Heart Rate 1: 60 bpm Height: 5'10" SpO2: 94% Temperature: 36.4 (C) / 97.6 (F) Weight: 258 lbs 05/03/2017 Blood Pressure 1: 118/74 Code: 8480-6 BMI: 38.2 Code: 35148-8 Heart Rate 1: 52 bpm Height: 5'10" SpO2: 98% Weight: 266 lbs 04/02/2017 Blood Pressure 1: 118/62 Code: 8480-6 BMI: 38.2 Code: 52093-3 Heart Rate 1: 53 bpm Height: 5'10" SpO2: 93% Weight: 266 lbs 03/26/2017 Blood Pressure 1: 114/62 Code: 8480-6 BMI: 38.3 Code: 09344-5 Height: 5'10" Weight: 267 lbs 03/22/2017 Blood Pressure 1: 122/64 Code: 8480-6 BMI: 40.0 Code: 36881-1 Heart Rate 1: 52 bpm Height: 5'10" SpO2: 94% Weight: 279 lbs 03/08/2017 Blood Pressure 1: 124/70 Code: 8480-6 BMI: 39.4 Code: 54222-7 Heart Rate 1: 51 bpm Height: 5'10" SpO2: 94% Weight: 274 lbs 8 oz 12/06/2016 Blood Pressure 1: 126/62 Code: 8480-6 BMI: 40.3 Code: 66488-3 Heart Rate 1: 50 bpm Height: 5'10" SpO2: 94% Weight: 281 lbs 11/30/2016 Blood Pressure 1: 112/62 Code: 8480-6 BMI: 40.3 Code: 11364-4 Heart Rate 1: 52 bpm Height: 5'10" SpO2: 93% Waist Measure (cm): 135 cm Weight: 281 lbs 11/28/2016 Blood Pressure 1: 132/72 Code: 8480-6 BMI: 40.3 Code: 18616-6 Heart Rate 1: 50 bpm Height: 5'10" Weight: 281 lbs 05/04/2016 Blood Pressure 1: 128/78 Code: 8480-6 BMI: 38.5 Code: 04885-5 Heart Rate 1: 74 bpm Height: 5'10" SpO2: 98% Weight: 268 lbs 8 oz 11/04/2015 Blood Pressure 1: 136/60 Code: 8480-6 BMI: 38.0 Code: 47037-1 Heart Rate 1: 55 bpm Height: 5'10" SpO2: 94% Weight: 265 lbs 07/30/2015 Blood Pressure 1: 128/74 Code: 8480-6 BMI: 38.0 Code: 64883-6 Heart Rate 1: 47 bpm Height: 5'10" SpO2: 97% Weight: 265 lbs 01/26/2015 Blood Pressure 1: 122/64 Code: 8480-6 BMI: 34.0 Code: 15063-0 Heart Rate 1: 68 bpm Height: 5'10" Weight: 237 lbs Functional Status No Functional Status data History of Present Illness Symptom Name Status Result Effective Date Notes Quality burning 03/12/2019 None Quality constant 03/12/2019 None Onset and Resolution sudden in onset 03/12/2019 None Onset of Symptom 4 days ago 03/12/2019 None Pertinent Findings bladder pain 03/12/2019 None Pertinent Findings urinary urgency 03/12/2019 None Quality chronic 02/25/2019 None Quality primary hypertension 02/25/2019 None Onset and Resolution ongoing 02/25/2019 None Onset of Symptom during adulthood 02/25/2019 None Alleviating Factors medication 02/25/2019 None Location on the left 10/18/2018 None Location on the right 10/18/2018 None Quality constant 10/18/2018 None Onset and Resolution sudden in onset 10/18/2018 None Location on the left 10/14/2018 None Location on the right 10/14/2018 None Quality constant 10/14/2018 None Onset and Resolution sudden in onset 10/14/2018 None Location on the left 10/10/2018 None Location on the right 10/10/2018 None Quality constant 10/10/2018 None Onset and Resolution sudden in onset 10/10/2018 None Quality chronic 10/04/2018 None Limitation on Activities allows weight bearing activity 10/04/2018 None Quality intermittent 10/04/2018 None Onset and Resolution gradual in onset 10/04/2018 None Pertinent Findings Denies fever 10/04/2018 None Pertinent Findings increased work of breathing 10/04/2018 None Severity moderate 10/04/2018 None Significant Medical Conditions peripheral neuropathy 10/04/2018 [...] coronary artery disease 10/04/2018 None Triggers activity 10/04/2018 None Quality non-insulin dependent 08/29/2018 None Alleviating Factors medication 08/29/2018 None Exacerbating Factors diet 08/29/2018 None Nutrition regular diet 08/29/2018 None Pertinent Findings Denies dizziness 08/29/2018 None Pertinent Findings Denies dyspnea 08/29/2018 None Pertinent Findings Denies numbness 08/29/2018 None Onset of Symptom onset as an adult 08/29/2018 None Quality primary hypertension 08/29/2018 None Quality stable 08/29/2018 None Onset and Resolution ongoing 08/29/2018 None Onset of Symptom during adulthood 08/29/2018 None Blood Pressure Values not checking blood pressure at home 08/29/2018 None Alleviating Factors medication 08/29/2018 None Pertinent Findings edema 08/29/2018 -wears compression socks Test results Pt checking blood glucose readings, did not bring results to clinic 08/29/2018 None Glucose monitoring fasting 08/29/2018 -116 this morning Quality chronic 08/29/2018 None Quality chronic 08/29/2018 None abdominal pain Location in the epigastric [...] Annual Medicare Wellness Exam Blood Pressure (self reported) borderline (120/80 - 139/89) 11/30/2017 None Annual [...] Annual Medicare Wellness Exam Hemaglobin A-1C (self reported) high (8 or higher) 11/30/2017 None Annual [...] with someone who has been drinking: n 11/30/2017 None Annual Medicare Wellness Exam Nutrition servings of fried food / high fat foods per day: 0 11/30/2017 None Annual Medicare Wellness Exam Nutrition [...] Annual Medicare Wellness Exam Hemaglobin A-1C (self reported) don't know 11/30/2016 None Annual Medicare Wellness Exam Blood Pressure (self reported) don't know 11/30/2016 None Annual [...] / high fat foods per day: 1 11/30/2016 None Annual Medicare Wellness Exam Nutrition [...] Codes Date EST. PATIENT, LEVEL III Diagnosis: Dysuria[ICD10: R30.0] Diagnosis: Type 2 diabetes mellitus with hyperglycemia[ICD10: E11.65] [facility] CPT-4: 70533 03/12/2019 ([id number]) 30825 EST. PATIENT, LEVEL IV Diagnosis: Essential (primary) hypertension[ICD10: I10] Diagnosis: Type 2 diabetes mellitus with hyperglycemia[ICD10: E11.65] Diagnosis: Chronic pain syndrome[ICD10: G89.4] Diagnosis: Chronic kidney disease, stage 3 (moderate)[ICD10: N18.3] Sarah Sanchez MD, [facility] CPT-4: 27884 02/25/2019 65763 EST. PATIENT, LEVEL III Diagnosis: Localized edema[ICD10: R60.0] Diagnosis: Cellulitis of left lower limb[ICD10: L03.116] Diagnosis: Cellulitis of right lower limb[ICD10: L03.115] Kiki Sanchez MD, [facility] CPT-4: 39504 10/18/2018 46550 EST. PATIENT, LEVEL III Diagnosis: Localized edema[ICD10: R60.0] Diagnosis: Cellulitis of left lower limb[ICD10: L03.116] Diagnosis: Cellulitis of right lower limb[ICD10: L03.115] Diagnosis: Chronic obstructive pulmonary disease, unspecified[ICD10: J44.9] Diagnosis: Weakness[ICD10: R53.1] Kiki Sanchez MD, [facility] CPT-4: 80841 10/14/2018 10488 EST. PATIENT, LEVEL III Diagnosis: Localized edema[ICD10: R60.0] Diagnosis: Cellulitis of left lower limb[ICD10: L03.116] Diagnosis: Cellulitis of right lower limb[ICD10: L03.115] Kiki Sanchez MD, [facility] CPT-4: 56481 10/10/2018 ([id number]) 28046 EST. PATIENT, LEVEL IV Diagnosis: Type 2 diabetes mellitus with foot ulcer[ICD10: E11.621] Diagnosis: Essential (primary) hypertension[ICD10: I10] Diagnosis: Malignant neoplasm of prostate[ICD10: C61] Diagnosis: Chronic obstructive pulmonary disease, unspecified[ICD10: J44.9] Diagnosis: Hypoxemia[ICD10: R09.02] Sarah Sanchez MD, [facility] CPT-4: 14261 10/04/2018 [id number]) 94568 EST. PATIENT, LEVEL IV Diagnosis: Type 2 diabetes mellitus with hyperglycemia[ICD10: E11.65] Diagnosis: Essential (primary) hypertension[ICD10: I10] Diagnosis: Malignant neoplasm of prostate[ICD10: C61] Sarah Sanchez MD, [facility] CPT-4: 33290 08/29/2018 ([id number]) 26444 EST. PATIENT, LEVEL IV Diagnosis: Malignant neoplasm of prostate[ICD10: C61] Dorene Sanchez MD, [facility] CPT-4: 60844 02/25/2018 61346 EST. PATIENT, LEVEL IV Diagnosis: Generalized abdominal pain[ICD10: R10.84] Diagnosis: Unspecified jaundice[ICD10: R17] Diagnosis: Gross hematuria[ICD10: R31.0] Kiki Sanchez MD, [facility] CPT-4: 48893 02/20/2018 ([id number]) 08905 EST. PATIENT, LEVEL IV Diagnosis: Type 2 diabetes mellitus with hyperglycemia[ICD10: E11.65] Diagnosis: Essential (primary) hypertension[ICD10: I10] Diagnosis: Chronic kidney disease, stage 3 (moderate)[ICD10: N18.3] Diagnosis: Chronic pain syndrome[ICD10: G89.4] Diagnosis: Other specified hypothyroidism[ICD10: E03.8] Diagnosis: Encounter for screening for malignant neoplasm of prostate[ICD10: Z12.5] Diagnosis: Encounter for immunization[ICD10: Z23] Sarah Sanchez MD, [facility] CPT-4: 91213 02/05/2018 ([id number]) 30343 EST. PATIENT, LEVEL IV Diagnosis: Type 2 diabetes mellitus with hyperglycemia[ICD10: E11.65] Diagnosis: Essential (primary) hypertension[ICD10: I10] Dorene Sanchez MD, [facility] CPT-4: 34832 11/08/2017 ([id number]) 27160 EST. PATIENT, LEVEL IV Diagnosis: Type 2 diabetes mellitus with hyperglycemia[ICD10: E11.65] Diagnosis: Chronic pain syndrome[ICD10: G89.4] Diagnosis: Essential (primary) hypertension[ICD10: I10] Diagnosis: Chronic kidney disease, stage 3 (moderate)[ICD10: N18.3] Diagnosis: Localized edema[ICD10: R60.0] Dorene Sanchez MD, [facility] CPT-4: 89156 09/20/2017 ([id number]) 84467 EST. PATIENT, LEVEL III Diagnosis: Type 2 diabetes mellitus with hyperglycemia[ICD10: E11.65] Sarah Sanchez MD, [facility] CPT-4: 41872 06/25/2017 ([id number]) 31944 EST. PATIENT, LEVEL III Diagnosis: Cellulitis of left lower limb[ICD10: L03.116] Sarah Sacnhez MD, [facility] CPT-4: 62974 06/07/2017 ([id number]) 62780 EST. PATIENT, LEVEL III Diagnosis: Localized edema[ICD10: R60.0] Diagnosis: Type 2 diabetes mellitus with foot ulcer[ICD10: E11.621] Sarah Sanchez MD, [facility] CPT-4: 28123 05/03/2017 ([id number]) 98507 EST. PATIENT, LEVEL III Diagnosis: Cellulitis of left lower limb[ICD10: L03.116] Diagnosis: Localized edema[ICD10: R60.0] Sarah Sanchez MD, [facility] CPT-4: 02616 04/02/2017 ([id number]) Miscellaneous no charge Diagnosis: Localized edema[ICD10: R60.0] Diagnosis: Cellulitis of left lower limb[ICD10: L03.116] Sarah Sanchez MD, [facility] CPT-4: 97506 03/26/2017 ([id number]) 83571 EST. 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 PATIENT, LEVEL IV Diagnosis: Type 2 diabetes mellitus with hyperglycemia[ICD10: E11.65] Diagnosis: Other specified hypothyroidism[ICD10: E03.8] Diagnosis: Essential (primary) hypertension[ICD10: I10] Sarah Sanchez MD, [facility] CPT-4: 01660 03/08/2017 ([id number]) 57523 EST. PATIENT, LEVEL III Diagnosis: Type 2 diabetes mellitus with hyperglycemia[ICD10: E11.65] Diagnosis: Other specified hypothyroidism[ICD10: E03.8] Sarah Sanchez MD, [facility] CPT-4: 32110 12/06/2016 ([id number]) 98232 EST. PATIENT, LEVEL IV Diagnosis: Essential (primary) hypertension[ICD10: I10] Diagnosis: Chronic kidney disease, stage 3 (moderate)[ICD10: N18.3] Dorene Sanchez MD, [facility] CPT-4: 79565 11/28/2016 ([id number]) 69625 EST. PATIENT, LEVEL IV Diagnosis: Essential (primary) hypertension[ICD10: I10] Diagnosis: Chronic pain syndrome[ICD10: G89.4] Diagnosis: Chronic kidney disease, stage 3 (moderate)[ICD10: N18.3] Diagnosis: Vitamin B12 deficiency anemia due to intrinsic factor deficiency[ICD10: D51.0] Diagnosis: Other specified hypothyroidism[ICD10: E03.8] Dorene Sanchez MD, [facility] CPT-4: 77099 05/04/2016 11477 EST. PATIENT, LEVEL III Diagnosis: Chronic pain syndrome[ICD10: G89.4] Diagnosis: Essential (primary) hypertension[ICD10: I10] Diagnosis: Other specified hypothyroidism[ICD10: E03.8] Kiki Sanchez MD, [facility] CPT-4: 16580 11/04/2015 39344 EST. PATIENT, LEVEL III Diagnosis: Chronic pain syndrome[ICD10: G89.4] Diagnosis: Essential (primary) hypertension[ICD10: I10] Kiki Sanchez MD, [facility] CPT-4: 63492 07/30/2015 ([id number]) OFFICE/OUTPATIENT VISIT NEW Diagnosis: ESSENTIAL HYPERTENSION[ICD9: 401.9] Diagnosis: HYPOTHYROIDISM[ICD9: 244.9] Diagnosis: ANEMIA[ICD9: 285.9] Diagnosis: Vitamin B12 deficiency[ICD9: 266.2] Diagnosis: CHRONIC PAIN SYNDROME[ICD9: 338.4] Diagnosis: Chronic renal insufficiency, stage III (moderate)[ICD9: 585.3] Diagnosis: GOUT[ICD9: 274.9] Dorene Sanchez MD, [facility] CPT-4: 59699 01/26/2015 Plan of Care Planned Activity Notes Codes Status Date Visit Plan: UTI - pt with positive urinalysis - culture sent if appropriate. Antibiotic electronically prescribed to pt's pharmacy of choice. Pt to call if symptoms do not improve. Pt is cleared for surgery pending cardiac clearance. Diabetes Mellitus - Uncontrolled - per recent [...] to allow for greater blood glucose control. 03/12/2019 Appointment: [phone] [facility] (15 min) Moderate 03/12/2019 Appointment: Nurse Visit 03/12/2019 Patient Education: Patient Medication Summary Completed 03/12/2019 Care Plan: Urine Culture Pending 03/12/2019 Visit Plan: Hypertension - well controlled - [...] are starting to become less controlled. Chronic Pain Syndrome - pt has chronic pain - has been maintained on current medications, has not sought out other medications, only uses PRN pain medications as directed, and understands the consequences of over-medication. 02/25/2019 Appointment: Sarah Hernand[facility]el[facility] [phone] [phone] [place] (15 min) Moderate 02/25/2019 Patient Education: Patient Medication Summary Completed 02/25/2019 Visit Plan: Edema - pt has been [...] warmth, discharge. 10/18/2018 Appointment: Kiki Menjivar WPtel: [facility] (30 min) [facility] 10/18/2018 Patient Education: Patient Medication Summary [...] to weakness 10/14/2018 Appointment: K[facility] Menjivar [facility]Ptel[facility] [phone] [facility] (30 min) Complex 10/14/2018 Patient Education: Patient [...] warmth, discharge. 10/10/2018 Appointment: Kiki Menjivar WPtel: [phone] [facility] (30 min) Complex 10/10/2018 Patient Education: Patient Medication Summary Completed 10/10/2018 Visit Plan: DM with peripheral neuropathy-paperwork completed for diabetic shoes and will fax to Dr Bauer HTN-controlled -no changes Knxgyqziy-BQFN-EWN-prostate cancer with mets- patient qualifies for oxygen-oxy gen saturation dropped to 86% on room air during ambulation but increased to 99% on 2L NC at rest-will send orders to [facility] for continue oxygen at 2L per nasal cannula 10/04/2018 Appointment: Sarah Hernandes [facility]Ptel[facility] [phone] [phone] [place] (30 min) Complex 10/04/2018 Patient [...] Moreno 08/29/2018 Appointment: Sarah Hernandes WPtel: [phone] [phone] [place] (15 min) Moderate 08/29/2018 Patient Education: Patient Medication Summary Completed 08/29/2018 Referral: Edgard Rivera MD WPtel: Via [address] with Dr. Moreno. Patient informed. Referral info faxed. Completed 02/27/2018 Visit Plan: Recurrent prostate cancer - I have recommended a referral to Dr. Rivera. We discussed the case at length today- he is not interested in extensive treatment, but if possible to extend his quantity and quality of life, he would like to try. 02/25/2018 App[facility]ment: [phone] (15 min) Moderate 02/25/2018 Patient Education: Patient Medication Summary Completed 02/25/2018 Care Plan: Referral Order SNOMED-CT : [id number] Pending 02/25/2018 Visit Plan: Intermittent abdominal pain, jaundice, itching - will check labs and treat as indicated - pt is to go to the ER with any acute change in symptoms or any acute concerns. 02/20/2018 Appointment: Kiki Menjivar WPtel[facility] [phone] [facility] [place] (30 min) Complex 02/20/2018 Patient Education: [...] control. 02/05/2018 Appointment: Sarah Hernandes WPtel: [phone] [phone] (30 min) Complex 02/05/2018 Patient Education: [...] surrogate. 11/30/2017 Appointment: Sarah Hernandes WPtel[facility] [phone] [phone] [facility] - Annual Wellness Visit 11/30/2017 [...] 1.2 11/08/2017 Appointment: [facility]ore[facility] Sanchez [phone] [facility] (15 min) Moderate 11/08/2017 Patient [...] over-medication. 09/20/2017 Appointment: Dorene Sanchez [facility]el[phone] [facility] [place] (15 min) Moderate 09/20/2017 Patient [...] glucose control. 06/25/2017 Appointment: Sarah Hernandes WPtel: [facility] (30 min) Complex 06/25/2017 Patient Education: Patient Medication Summary Completed 06/25/2017 Appointment: Sarah Hernandes WPtel: [address] [place], [place] [id number] [place] (30 min) Complex 06/22/2017 Visit Plan: Cellulitis - start oral antibiotics as previously directed, return to clinic as previously directed, call for acute change in symptoms, worsening redness, warmth, discharge. 06/07/2017 Appointment: Sarah Hernandes WPtel: [phone] (30 min) Complex 06/07/2017 Patient Education: Patient Medication Summary Completed 06/07/2017 Patient Education: Obesity Completed 06/07/2017 Appointment: Dorene Sanchez WPtel: [facility] (15 min) Moderate 05/31/2017 Visit Plan: Edema-significantly improved-no changes Ulcer-left lower leg and foot-seeing Dr Norwood at wound care-appt scheduled with Dr Frausto for vascular evaluation 05/03/2017 Appointment: Sarah Hernandes WPtel: [phone] (15 min) Moderate 05/03/2017 Patient Education: Patient Medication Summary Completed 05/03/2017 Patient Education: Obesity Completed 05/03/2017 Visit Plan: Houucmvhoq-kjtbiytyn-aktdqdn to finish abx-no further treatment indicated Edema-significantly improved-no longer weeping-continue unna boots twice weekly with home health 04/02/2017 Appointment: Sarah Hernandes WPtel: [phone] [phone] [place] (30 min) Complex 04/02/2017 Patient Education: Patient Medication Summary Completed 04/02/2017 Patient Education: Obesity Completed 04/02/2017 Visit Plan: Cellulitis-left leg-continue levaquin Edema-increase lasix/potassium-consult [facility] for unna boots/dressing changes 03/26/2017 Appointment: Sarah Hernandes WPtel: [phone] [phone] [place] (15 min) Moderate 03/26/2017 Patient [...] indomethacin-stop aleve 03/22/2017 Appointment: Sarah Hernandes WPtel: [address] [place] [phone] (15 min) Moderate 03/22/2017 Patient Education: Patient [...] of control. 03/08/2017 Appointment: Sarah Hernandes WPtel: [address] [place] [phone] (30 min) Complex 03/08/2017 Patient Education: Patient [...] care surrogate. 11/30/2016 Appointment: Sarah Hernandes WPtel: [phone] [facility] - Annual Wellness Visit 11/30/2016 [...] fluids. 11/28/2016 Appointment: Dorene Sanchez [facility]el[phone] [facility] (15 min) Moderate 11/28/2016 Patient [...] 01/26/2015 Referral: Edgard Rivera MD [address]Ptel: [address] [place] Referral Appointment Requested Instructions Comment victoza 0.6mg daily . Diabetes Mellitus - [...] change in symptoms, worsening redness, warmth, discharge. Will send Dr. Bauer note for surgical clearance will start you on basaglar 10 units at night for your blood sugars and have you check you blood sugar daily and bring a log in to the office in 1 month for us to look at will send your urine for a culture and start you on an antibiotic to treat for a UTI let me know if your symptoms do not improve. UTI - pt with positive urinalysis - culture sent if appropriate. Antibiotic electronically prescribed to pt's pharmacy of choice. Pt to call if symptoms do not improve. Pt is cleared for surgery pending cardiac clearance. Diabetes Mellitus - Uncontrolled - per recent [...] allow for greater blood glucose control. . Hypertension - well controlled - [...] YEAR SHINGLES VACCINATION TO BE ADMINISTERED AT [facility] RECOMMEND OBTAINING MEDICAL POWER OF FINANCIAL ACCOUNTING MANAGER AND LIVING WILL PATIENT DOES NOT [...] The patient was advised of home safety evaluat ions and the need to make sure that [...] YEAR SHINGLES VACCINATION TO BE ADMINISTERED AT [facility] RECOMMEND OBTAINING MEDICAL POWER OF FINANCIAL ACCOUNTING MANAGER AND LIVING WILL PATIENT DOES NOT [...] The patient was advised of home safety evaluat ions and the need to make sure that [...] YEAR SHINGLES VACCINATION TO BE ADMINISTERED AT [facility] RECOMMEND OBTAINING MEDICAL POWER OF FINANCIAL ACCOUNTING MANAGER AND LIVING WILL PATIENT DOES NOT [...] The patient was advised of home safety evaluat ions and the need to make sure that [...] AND POTASSIUM TO TWICE DAILY [facility] . Cellulitis-left leg-continue levaquin Edema-increase lasix/potassium-consult [facility] for unna boots/dressing changes . Recurrent [...] diabetes in detail today including diet and exercise- patient wants to try diet/exercise x 3 months before agreeing to medication-will plan for repeat labs in 3 months-sooner if needed REPEAT HGB A1C, CMP, TSH, FREE T4 IN 3 MONTHS CUT OUT SODA, LIMIT SWEETS, CUT BACK ON CARBS (BREADS, PASTAS, POTATOES . DM-new diagnosis-discussed diabetes in detail today including diet and exercise- patient wants to try diet/exercise x 3 months [...] are starting to become less controlled. Chronic Pain Syndrome - pt has chronic pain - has been maintained on current medications, has not sought out other medications, only uses PRN pain medications as directed, and understands the consequences of over-medication. . Diabetes Mellitus - controlled - per [...] with supportive care and medication monitoring. . Edema - pt has been advised [...] in symptoms, worsening redness, warmth, discharge. . Xqnmqpdjvk-qbrazzyxv-keiculn to finish abx-no further treatment indicated Edema-significantly [...] fax to Dr Bauer HTN-controlled -no changes Pbcbyaypx-XXUA-RNJ-prostate cancer with mets- patient qualifies for oxygen- [...]
--- OUTSIDE RECORDS SUMMARY | 2019-03-24 07:51 | XMS REPORT | CCD ---
Author Author [facility]orene Sanchez Organization [facility] Address [address] [place] [address] Phone Care Team Providers Care [employer] Operator Name Role Phone PP Unavailable CCM Unavailable Summary Purpose Interface Exchange Insurance Providers Payer name Policy type / Coverage type Covered constitution party ID Effective Begin Date Effective End Date WPS Medicare Part B Medicare Part B [id number] Unknown Unknown Family history Father Diagnosis Age At Onset Stroke Unknown Mother Diagnosis Age At Onset Stroke Unknown Diabetes mellitus Type 2 Unknown Social History Social History Element Codes Description Effective Dates Tobacco history SNOMED CT: 790634131 Currently uses smokeless tobacco Chews 05/04/2016 Marital status Unknown 01/26/2015 Number of children Unknown 3 01/26/2015 Employment Unknown Retired 01/26/[address]: 842785581 Never drinks alcohol quit in July 2014 [...] Start Date Stop Date Status Fill Instructions levothyroxine 200 mcg tablet RxNorm: 134435 TAKE ONE TABLET BY MOUTH DAILY ON AN EMPTY STOMACH 03/13/2019 12/07/2019 Active bisoprolol 5 mg-hydrochlorothiazide 6.25 mg tablet RxNorm: 076953 TAKE ONE TABLET BY MOUTH DAILY 03/13/2019 12/07/2019 Active Keflex 500 mg capsule RxNorm: 172906 1 Capsule(s) PO TID 03/12/2019 03/21/2019 Active potassium chloride ER 10 mEq tablet,extended release RxNorm: 485887 TAKE ONE TABLET BY MOUTH DAILY 03/10/2019 09/05/2019 Active oxycodone 10 mg tablet RxNorm: 5313203 1 Tablet(s) PO Q4 PRN 02/25/2019 No Stop Date Active oxycodone 20 mg tablet RxNorm: 6747232 1/2 Tablet(s) PO Q6 as needed 01/21/2019 02/24/2019 Inactive oxycodone 20 mg tablet RxNorm: 4636215 1/2 Tablet(s) PO Q6 as needed 12/18/2018 01/16/2019 Inactive oxycodone 20 mg tablet RxNorm: 2670010 1/2 Tablet(s) PO Q6 as needed 11/12/2018 12/11/2018 Inactive gabapentin 100 mg capsule RxNorm: 942889 1 Capsule(s) BID 11/05/2018 05/03/2019 Active potassium chloride ER 10 mEq tablet,extended release RxNorm: 135172 TAKE ONE TABLET BY MOUTH DAILY 11/04/2018 11/19/2018 Inactive Probiotic 10 billion cell capsule RxNorm: 7135169 1 Capsule(s) PO BID 10/25/2018 10/24/2018 Inactive Keflex 500 mg capsule RxNorm: 254497 1 Capsule(s) PO QID 10/25/2018 10/31/2018 Inactive Probiotic 10 billion cell capsule RxNorm: 4148400 1 Capsule(s) PO BID 10/25/2018 10/31/2018 Inactive oxycodone 20 mg tablet RxNorm: 4689819 1/2 Tablet(s) PO Q6 as needed 10/14/2018 11/11/2018 Inactive Lasix 20 mg tablet RxNorm: 947792 1 Tablet(s) PO BID 10/10/2018 04/07/2019 Active Keflex 500 mg capsule RxNorm: 488771 1 Capsule(s) PO TID 10/10/2018 10/19/2018 Inactive potassium chloride ER 10 mEq tablet,extended release RxNorm: 108517 1 Tablet(s) PO daily 10/10/2018 11/03/2018 Inactive albuterol sulfate 2.5 mg/3 mL (0.083 %) solution for nebulization RxNorm: 085413 1 Milliliter(s) INH TID DX J44.9 10/04/2018 01/31/2019 Inactive gabapentin 100 mg capsule RxNorm: 969216 TAKE ONE CAPSULE BY MOUTH IN THE EVENING AT 5PM 09/24/2018 11/04/2018 Inactive oxycodone 20 mg tablet RxNorm: 1886450 1/2 Tablet(s) PO Q6 as needed 09/12/2018 10/11/2018 Inactive oxycodone 20 mg tablet RxNorm: 5077030 1/2 Tablet(s) PO Q6 as needed 08/15/2018 09/11/2018 Inactive oxycodone 20 mg tablet RxNorm: 2328904 1/2 Tablet(s) PO Q6 as needed 07/16/2018 08/14/2018 Inactive oxycodone 20 mg tablet RxNorm: 7736523 1/2 Tablet(s) PO Q6 as needed 06/14/2018 07/13/2018 Inactive gabapentin 100 mg capsule RxNorm: 910516 TAKE ONE CAPSULE BY MOUTH IN THE EVENING AT 5PM 05/30/2018 09/23/2018 Inactive oxycodone 20 mg tablet RxNorm: 0346733 1/2 Tablet(s) PO Q6 as needed 05/15/2018 06/13/2018 Inactive oxycodone 20 mg tablet RxNorm: 3423848 1/2 Tablet(s) PO Q6 as needed 04/12/2018 05/11/2018 Inactive oxycodone 20 mg tablet RxNorm: 9561249 1/2 Tablet(s) PO Q6 as needed 03/11/2018 04/09/2018 Inactive Cipro 500 mg tablet RxNorm: 669472 1 Tablet(s) PO BID 02/21/2018 02/20/2018 Inactive levothyroxine 200 mcg tablet RxNorm: 933279 1 Tablet(s) PO daily 02/21/2018 02/20/2018 Inactive Cipro 500 mg tablet RxNorm: 538715 1 Tablet(s) PO BID 02/21/2018 03/02/2018 Inactive levothyroxine 200 mcg tablet RxNorm: 162101 1 Tablet(s) PO daily 02/21/2018 02/15/2019 Inactive oxycodone 20 mg tablet RxNorm: 5171707 1/2 Tablet(s) PO Q6 as needed 02/12/2018 03/10/2018 Inactive oxycodone 20 mg tablet RxNorm: 2510079 1/2 Tablet(s) PO Q6 as needed 01/16/2018 02/11/2018 Inactive gabapentin 100 mg capsule RxNorm: 924276 TAKE ONE CAPSULE BY MOUTH IN THE EVENING AT 5PM 01/15/2018 05/29/2018 Inactive bisoprolol 5 mg-hydrochlorothiazide 6.25 mg tablet RxNorm: 877049 TAKE ONE TABLET BY MOUTH DAILY 01/01/2018 12/26/2018 Inactive oxycodone 20 mg tablet RxNorm: 0787758 1/2 Tablet(s) PO Q6 as needed 12/20/2017 01/14/2018 Inactive oxycodone 20 mg tablet RxNorm: 0195929 1/2 Tablet(s) PO Q6 as needed 11/20/2017 12/19/2017 Inactive Victoza 2-Dino 0.6 mg/0.1 mL (18 mg/3 mL) subcutaneous pen injector RxNorm: 561850 1.2 Milligram(s) SQ daily 11/08/2017 12/07/2017 Inactive oxycodone 20 mg tablet RxNorm: 1074855 1/2 Tablet(s) PO Q6 as needed 10/19/2017 11/17/2017 Inactive gabapentin 100 mg capsule RxNorm: 207083 1 Capsule(s) PO QPM at 5 pm 09/20/2017 01/14/2018 Inactive Lasix 20 mg tablet RxNorm: 669849 1 Tablet(s) QAM at 5pm 09/20/2017 03/18/2018 Inactive oxycodone 20 mg tablet RxNorm: 7351595 1/2 Tablet(s) PO Q6 as needed 09/18/2017 10/17/2017 Inactive oxycodone 20 mg tablet RxNorm: 4500949 1/2 Tablet(s) PO Q6 as needed 08/14/2017 09/12/2017 Inactive ketoconazole 2 % topical cream RxNorm: 915703 1 Gram(s) TOP BID to affected area until healed 08/03/2017 No Stop Date Active oxycodone 20 mg tablet RxNorm: 4376652 1/2 Tablet(s) PO Q6 as needed 07/17/2017 08/13/2017 Inactive pen needle, diabetic 31 gauge x 5/16" RxNorm: 1 Unit Dose Miscellaneous daily 06/25/2017 03/21/2018 Inactive daily use with victoza Bactrim DS 800 mg-160 mg tablet RxNorm: 633096 1 Tablet(s) PO BID Dr Norwood 06/25/2017 07/04/2017 Inactive Victoza 2-Dino 0.6 mg/0.1 mL (18 mg/3 mL) subcutaneous pen injector RxNorm: 464631 0.6 Milligram(s) SQ daily 06/25/2017 07/24/2017 Inactive doxycycline hyclate 100 mg tablet RxNorm: 915395 1 Tablet(s) PO BID Dr Norwood 06/21/2017 06/30/2017 Inactive oxycodone 20 mg tablet RxNorm: 9011475 1/2 Tablet(s) PO Q6 as needed 06/14/2017 07/13/2017 Inactive clindamycin 150 mg capsule RxNorm: 577797 1 Capsule(s) PO Q8 06/07/2017 06/16/2017 Inactive levothyroxine 175 mcg tablet RxNorm: 550151 TAKE ONE TABLET BY MOUTH DAILY 06/04/2017 09/01/2017 Inactive levothyroxine 175 mcg tablet RxNorm: 204457 TAKE ONE TABLET BY MOUTH DAILY 06/04/2017 11/30/2017 Inactive bisoprolol 5 mg-hydrochlorothiazide 6.25 mg tablet RxNorm: 388208 TAKE ONE TABLET BY MOUTH DAILY 05/24/2017 11/19/2017 Inactive oxycodone 20 mg tablet RxNorm: 4079681 1/2 Tablet(s) PO Q6 as needed 05/14/2017 06/12/2017 Inactive potassium chloride ER 10 mEq capsule,extended release RxNorm: 294788 TAKE ONE CAPSULE BY MOUTH DAILY NEEDED FOR 5 DAYS THEN NEEDED WITH LASIX 04/17/2017 10/13/2017 Inactive Lasix 20 mg tablet RxNorm: 960520 TAKE ONE TABLET BY MOUTH DAILY NEEDED 04/17/2017 09/19/2017 Inactive oxycodone 20 mg tablet RxNorm: 6068302 1/2 Tablet(s) PO Q6 as needed 04/12/2017 05/11/2017 Inactive Colcrys 0.6 mg tablet RxNorm: 299911 2 tabs at onset then may repeat 1 tab in 1 hours if needed- Tablet(s) PO 04/09/2017 No Stop Date Active then take daily until gout resolved Bactrim DS 800 mg-160 mg tablet RxNorm: 278220 1 Tablet(s) PO BID 04/09/2017 04/08/2017 Inactive dc levaquin Bactrim DS 800 mg-160 mg tablet RxNorm: 331810 1 Tablet(s) PO BID 04/09/2017 04/15/2017 Inactive dc levaquin Levaquin 500 mg tablet RxNorm: 360510 1 Tablet(s) PO daily 04/03/2017 04/02/2017 Inactive Levaquin 500 mg tablet RxNorm: 908550 1 Tablet(s) PO daily 04/03/2017 06/06/2017 Inactive indomethacin 25 mg capsule RxNorm: 920073 1 Capsule(s) PO TID PRN 03/22/2017 03/22/2017 Inactive Lasix 20 mg tablet RxNorm: 139645 1 Tablet(s) PO QDAY PRN 03/22/2017 04/16/2017 Inactive daily x 5 days then as needed Levaquin 500 mg tablet RxNorm: 186495 1 Tablet(s) PO daily 03/22/2017 03/31/2017 Inactive potassium chloride ER 10 mEq capsule,extended release RxNorm: 843594 1 Capsule(s) PO QDAY PRN 03/22/2017 04/16/2017 Inactive daily x 5 days then as needed with lasix oxycodone 20 mg tablet RxNorm: 2990125 1/2 Tablet(s) PO Q6 as needed 03/08/2017 04/06/2017 Inactive bisoprolol 5 mg-hydrochlorothiazide 6.25 mg tablet RxNorm: 482531 TAKE ONE TABLET BY MOUTH DAILY 02/14/2017 05/14/2017 Inactive oxycodone 20 mg tablet RxNorm: 3690005 1/2 Tablet(s) PO Q6 as needed 02/08/2017 03/07/2017 Inactive oxycodone 20 mg tablet RxNorm: 6828372 1/2 Tablet(s) PO Q6 as needed 01/08/2017 02/06/2017 Inactive levothyroxine 175 mcg tablet RxNorm: 697851 1 Tablet(s) PO daily 12/06/2016 06/03/2017 Inactive [SAVINGS FOR NON-COVERED DRUGS -- BIN:[id number], PCN: ASPROD1, Group: XXXXX, ID# XXXXXXX, Questions: . THIS IS NOT INSURANCE.] oxycodone 20 mg tablet RxNorm: 7361022 1/2 Tablet(s) PO Q6 as needed 12/04/2016 01/02/2017 Inactive oxycodone 20 mg tablet RxNorm: 0052573 1/2 Tablet(s) PO Q6 as needed 11/09/2016 12/03/2016 Inactive bisoprolol 5 mg-hydrochlorothiazide 6.25 mg tablet RxNorm: 625356 TAKE ONE TABLET BY MOUTH DAILY 11/08/2016 02/05/2017 Inactive oxycodone 20 mg tablet RxNorm: 6161712 1/2 Tablet(s) PO Q6 as needed 10/05/2016 11/03/2016 Inactive oxycodone 20 mg tablet RxNorm: 7379657 1/2 Tablet(s) PO Q6 as needed 09/06/2016 10/04/2016 Inactive oxycodone 20 mg tablet RxNorm: 6808403 1/2 Tablet(s) PO Q6 as needed 08/07/2016 09/05/2016 Inactive oxycodone 20 mg tablet RxNorm: 9310009 1/2 Tablet(s) PO Q6 as needed 07/04/2016 08/06/2016 Inactive oxycodone 20 mg tablet RxNorm: 8716123 1/2 Tablet(s) PO Q6 as needed 05/29/2016 07/03/2016 Inactive levothyroxine 150 mcg tablet RxNorm: 200314 1 Tablet(s) PO daily 04/10/2016 04/09/2016 Inactive [SAVINGS FOR NON-COVERED DRUGS -- BIN:[id number], PCN: ASPROD1, Group: XXXXX, ID# XXXXXXX, Questions: . THIS IS NOT INSURANCE.] oxycodone 20 mg tablet RxNorm: 8870016 1/2 Tablet(s) PO Q6 as needed 04/10/2016 05/28/2016 Inactive levothyroxine 150 mcg tablet RxNorm: 639708 1 Tablet(s) PO daily 04/10/2016 10/06/2016 Inactive [SAVINGS FOR NON-COVERED DRUGS -- BIN:[id number], PCN: ASPROD1, Group: XXXXX, ID# XXXXXXX, Questions: . THIS IS NOT INSURANCE.] bisoprolol 5 mg-hydrochlorothiazide 6.25 mg tablet RxNorm: 138287 1 Tablet(s) PO daily 02/16/2016 12/31/2017 Inactive oxycodone 20 mg tablet RxNorm: 5036796 1/2 Tablet(s) PO Q6 as needed 02/16/2016 04/09/2016 Inactive oxycodone 20 mg tablet RxNorm: 6597713 1/2 Tablet(s) PO Q6 as needed 01/04/2016 02/15/2016 Inactive bisoprolol 5 mg-hydrochlorothiazide 6.25 mg tablet RxNorm: 930409 1 Tablet(s) PO daily 11/19/2015 01/17/2016 Inactive bisoprolol 5 mg-hydrochlorothiazide 6.25 mg tablet RxNorm: 143728 1 Tablet(s) PO daily 11/04/2015 11/18/2015 Inactive oxycodone 20 mg tablet RxNorm: 0176143 1/2 Tablet(s) PO Q6 as needed 10/27/2015 01/03/2016 Inactive levothyroxine 150 mcg tablet RxNorm: 420119 1 Tablet(s) PO daily 08/26/2015 02/21/2016 Inactive [SAVINGS FOR NON-COVERED DRUGS -- BIN:[id number], PCN: ASPROD1, Group: XXXXX, ID# XXXXXXX, Questions: . THIS IS NOT INSURANCE.] bisoprolol 5 mg-hydrochlorothiazide 6.25 mg tablet RxNorm: 784125 1 Tablet(s) PO daily 08/26/2015 10/24/2015 Inactive oxycodone 10 mg tablet RxNorm: 3610731 1 Tablet(s) PO Q6 as needed 05/06/2015 10/26/2015 Inactive levothyroxine 150 mcg tablet RxNorm: 768785 1 Tablet(s) PO daily 02/05/2015 08/03/2015 Inactive [SAVINGS FOR NON-COVERED DRUGS -- BIN:[id number], PCN: ASPROD1, Group: XXXXX, ID# [id number], Questions: . THIS IS NOT INSURANCE.] Vitamin D2 50,000 unit capsule RxNorm: 296666 1 Capsule(s) PO weekly 02/05/2015 05/05/2015 Inactive [SAVINGS FOR NON-COVERED DRUGS -- BIN:040543, PCN: ASPROD1, Group: XXXXX, ID# XXXXXXX, Questions: . THIS IS NOT INSURANCE.] Vitamin D2 50,000 unit capsule RxNorm: 020154 1 Capsule(s) PO weekly 02/05/2015 02/04/2015 Inactive bisoprolol 5 mg-hydrochlorothiazide 6.25 mg tablet RxNorm: 341469 1 Tablet(s) PO daily 01/26/2015 02/24/2015 Inactive levothyroxine 200 mcg tablet RxNorm: 317768 1 Tablet(s) PO daily 01/26/2015 01/25/2015 Inactive levothyroxine 200 mcg tablet RxNorm: 986285 1 Tablet(s) PO every other day 01/26/2015 02/04/2015 Inactive [SAVINGS FOR NON-COVERED DRUGS -- BIN:042557, PCN: ASPROD1, Group: XXXXX, ID# XXXXXXX, Questions: . THIS IS NOT INSURANCE.] aspirin 81 mg chewable tablet RxNorm: 324701 1 Tablet(s) PO daily No Start Date Active Plavix 75 mg tablet RxNorm: 296046 1 Tablet(s) PO daily manage by Dr Baig No Start Date Active simvastatin 40 mg tablet RxNorm: 689801 1 Tablet(s) PO QHS managed by Dr Baig No Start Date Active Colcrys 0.6 mg tablet RxNorm: 442595 2 tabs at onset then may repeat 1 tab in 1 hours if needed- Tablet(s) PO No Start Date 04/08/2017 Inactive then take daily until gout resolved aspirin 325 mg tablet RxNorm: 791369 1 Tablet(s) PO daily No Start Date 05/03/2016 Inactive levothyroxine 75 mcg tablet RxNorm: 894186 1 Tablet(s) PO every other day No Start Date 02/04/2015 Inactive takes qod with 200mcg oxycodone 10 mg tablet RxNorm: 9800501 1 Tablet(s) PO Q6 as needed No Start Date 05/05/2015 Inactive ketoconazole 2 % topical cream RxNorm: 692544 1 Gram(s) TOP BID to affected area [...] M100 URINE CULTURE See Note 03/17/2019 %Hba1C Jnc184 % HbA1c 58046- 6 9.2 % 02/25/2019 %Hba1C Qla349 Gluc Ave 217 mg/dL 02/25/2019 Comp Metabolic Gqb957 NA 136 mEq/L 02/25/2019 Comp Metabolic Kwr157 K 4.8 mEq/L 02/25/2019 Comp Metabolic Ckc149 CL 95 mEq/L 02/25/2019 Comp Metabolic Puu515 CO2 36.0 mEq/L 02/25/2019 Comp Metabolic Qxh556 ANION GAP 10 02/25/2019 Comp Metabolic Wnt671 GLUCOSE 255 mg/dL 02/25/2019 Comp Metabolic Pni302 Creat 1.2 mg/dL 02/25/2019 Comp Metabolic Upm135 eGFR 62 ml/min/1.73m2 02/25/2019 Comp Metabolic Csb478 BUN 29 mg/dL 02/25/2019 Comp Metabolic Tqy471 B/C Ratio 24.0 Ratio 02/25/2019 Comp Metabolic Ohn855 CALCIUM 9.0 mg/dL 02/25/2019 Comp Metabolic Ntl979 ALK PHOS 102 U/L 02/25/2019 Comp Metabolic Fht432 AST(SGOT) 12 U/L 02/25/2019 Comp Metabolic Yvo125 ALT(SGPT) 9 U/L 02/25/2019 Comp Metabolic Gko334 BILI T 0.6 mg/dL 02/25/2019 Comp Metabolic Lzf350 ALBUMIN 3.8 g/dL 02/25/2019 Comp Metabolic Ufq129 TPRO 6.6 g/dL 02/25/2019 Comp Metabolic Kmm871 GLOB 2.8 g/dL 02/25/2019 Comp Metabolic But787 A/G Ratio 1.4 Ratio 02/25/2019 Comp Metabolic Afk272 Osmo 286 mOsmo 02/25/2019 %Hba1C Nds251 % HbA1c 25759- 6 6.4 % 08/30/2018 %Hba1C Bdy996 Gluc Ave 137 mg/dL 08/30/2018 Culture Urine [id number] URINE CULTURE SEE NOTES 02/22/2018 Urine Culture [...] 24.5 pg 02/20/2018 Cbc With Differential Ord2 Woodruff% 8.9 % 02/20/2018 Cbc With Differential Ord2 [...] 0.81 K/ul 02/20/2018 Cbc With Differential Ord2 Woodruff ABS# 0.7 K/ul 02/20/2018 Cbc With Differential Ord2 Eos ABS# 0.4 K/ul 02/20/2018 Cbc With Differential Ord2 Baso ABS# 0.0 K/ul 02/20/2018 %Hba1C Osg417 % HbA1c 32787- 6 7.7 % 02/20/2018 %Hba1C Dla656 Gluc Ave 174 mg/dL 02/20/2018 Lipase Bfq004 LIPASE 17 U/L 02/20/2018 Microalbumin Qxe935 MicroAlb 6.5 mg/dL 02/20/2018 Amylase Ord34 AMYLASE 15 U/L 02/20/2018 Free T4 Qnt474 FREE T4 0.61 ng/dL 02/20/2018 Lipid Ord30 CHOL 203 mg/dL 02/20/2018 Lipid Ord30 HDL 7.0 mg/dl 02/20/2018 Lipid Ord30 TRIG 271 mg/dL 02/20/2018 Lipid Ord30 LDL 142 mg/dL 02/20/2018 Lipid Ord30 C/HDL 29.0 Ratio 02/20/2018 Comp Metabolic Hsq885 NA 134 mEq/L 02/20/2018 Comp Metabolic Ivn836 K 3.6 mEq/L 02/20/2018 Comp Metabolic Smc602 CL 96 mEq/L 02/20/2018 Comp Metabolic Sar477 CO2 29.0 mEq/L 02/20/2018 Comp Metabolic Eis462 ANION GAP 13 02/20/2018 Comp Metabolic Cnl180 GLUCOSE 165 mg/dL 02/20/2018 Comp Metabolic Ziy439 Creat 1.2 mg/dL 02/20/2018 Comp Metabolic Dnb004 eGFR 63 ml/min/1.73m2 02/20/2018 Comp Metabolic Oie511 BUN 14 mg/dL 02/20/2018 Comp Metabolic Ycj379 B/C Ratio 11.6 Ratio 02/20/2018 Comp Metabolic Tzt555 CALCIUM 8.5 mg/dL 02/20/2018 Comp Metabolic Rmk522 ALK PHOS 633 U/L 02/20/2018 Comp Metabolic Ycr178 AST(SGOT) 112 U/L 02/20/2018 Comp Metabolic Qvf875 ALT(SGPT) 148 U/L 02/20/2018 Comp Metabolic Xdc794 BILI T 6.8 mg/dL 02/20/2018 Comp Metabolic Wje942 ALBUMIN 3.3 g/dL 02/20/2018 Comp Metabolic Rsi329 TPRO 5.9 g/dL 02/20/2018 Comp Metabolic Diu440 GLOB 2.6 g/dL 02/20/2018 Comp Metabolic Xiz068 A/G Ratio 1.3 Ratio 02/20/2018 Comp Metabolic Zhz058 Osmo 272 mOsmo 02/20/2018 Total Psa Ord10 [...] Metabolic Ord15 CALCIUM 9.2 mg/dL 11/09/2017 %Hba1C Zbf797 % HbA1c 87422- 6 8.0 % 11/09/2017 %Hba1C Qto253 Gluc Ave 183 mg/dL 11/09/2017 Metabolic Ord15 [...] Ord15 CALCIUM 8.7 mg/dL 06/25/2017 Culture Wound [id number] WOUND CULTURE SEE NOTES 04/09/2017 Culture Wound [id number] Continued Results 04/09/2017 Amylase Ord34 AMYLASE 19 [...] 27.9 pg 03/22/2017 Cbc With Differential Ord2 Woodruff% 8.3 % 03/22/2017 Cbc With Differential Ord2 [...] 1.35 K/ul 03/22/2017 Cbc With Differential Ord2 Woodruff ABS# 1.4 K/ul 03/22/2017 Cbc With Differential Ord2 Eos ABS# 0.2 K/ul 03/22/2017 Cbc With Differential Ord2 Baso ABS# 0.0 K/ul 03/22/2017 Comp Metabolic Ywq496 NA 134 mEq/L 03/22/2017 Comp Metabolic Ijm721 K 4.5 mEq/L 03/22/2017 Comp Metabolic Lpd997 CL 93 mEq/L 03/22/2017 Comp Metabolic Bwh719 CO2 31.0 mEq/L 03/22/2017 Comp Metabolic Hvz367 ANION GAP 15 03/22/2017 Comp Metabolic Idh456 GLUCOSE 198 mg/dL 03/22/2017 Comp Metabolic Prs703 Creat 1.5 mg/dL 03/22/2017 Comp Metabolic Lck454 eGFR 50 ml/min/1.73m2 03/22/2017 Comp Metabolic Wgy100 BUN 32 mg/dL 03/22/2017 Comp Metabolic Sok619 B/C Ratio 21.6 Ratio 03/22/2017 Comp Metabolic Lgo225 CALCIUM 8.4 mg/dL 03/22/2017 Comp Metabolic Nbr129 ALK PHOS 245 U/L 03/22/2017 Comp Metabolic Npe531 AST(SGOT) 18 U/L 03/22/2017 Comp Metabolic Ppu670 ALT(SGPT) 17 U/L 03/22/2017 Comp Metabolic Lbv484 BILI T 0.8 mg/dL 03/22/2017 Comp Metabolic Mtw068 ALBUMIN 2.9 g/dL 03/22/2017 Comp Metabolic Dwc717 TPRO 6.3 g/dL 03/22/2017 Comp Metabolic Zsq051 GLOB 3.4 g/dL 03/22/2017 Comp Metabolic Rsh267 A/G Ratio 0.8 Ratio 03/22/2017 Comp Metabolic Kdf024 Osmo 281 mOsmo 03/22/2017 Lipase Ohr575 LIPASE 12 U/L 03/22/2017 Comp Metabolic Tgu661 NA 142 mEq/L 03/09/2017 Comp Metabolic Hkr471 K 4.8 mEq/L 03/09/2017 Comp Metabolic Gne405 CL 103 mEq/L 03/09/2017 Comp Metabolic Vga400 CO2 30.0 mEq/L 03/09/2017 Comp Metabolic Iyz104 ANION GAP 14 03/09/2017 Comp Metabolic Pbd904 GLUCOSE 152 mg/dL 03/09/2017 Comp Metabolic Zvy833 Creat 1.3 mg/dL 03/09/2017 Comp Metabolic Nng342 eGFR 56 ml/min/1.73m2 03/09/2017 Comp Metabolic Fnc909 BUN 23 mg/dL 03/09/2017 Comp Metabolic Ioa977 B/C Ratio 17.3 Ratio 03/09/2017 Comp Metabolic Hhc045 CALCIUM 8.5 mg/dL 03/09/2017 Comp Metabolic Sqo301 ALK PHOS 97 U/L 03/09/2017 Comp Metabolic Poa756 AST(SGOT) 10 U/L 03/09/2017 Comp Metabolic Ehk185 ALT(SGPT) 6 U/L 03/09/2017 Comp Metabolic Ape465 BILI T 0.4 mg/dL 03/09/2017 Comp Metabolic Ufc650 ALBUMIN 3.4 g/dL 03/09/2017 Comp Metabolic Are160 TPRO 6.2 g/dL 03/09/2017 Comp Metabolic Vez375 GLOB 2.8 g/dL 03/09/2017 Comp Metabolic Eui323 A/G Ratio 1.2 Ratio 03/09/2017 Comp Metabolic Dgp174 Osmo 290 mOsmo 03/09/2017 Free T4 Ola152 FREE T4 0.86 ng/dL 03/08/2017 Cbc With [...] 28.2 pg 03/08/2017 Cbc With Differential Ord2 Woodruff% 8.7 % 03/08/2017 Cbc With Differential Ord2 [...] 1.63 K/ul 03/08/2017 Cbc With Differential Ord2 [place]ruff ABS# 0.9 K/ul 03/08/2017 Cbc With Differential Ord2 Eos ABS# 0.5 K/ul 03/08/2017 Cbc With Differential Ord2 Baso ABS# 0.0 K/ul 03/08/2017 Tsh Ord6 hTSH II 4.52 uIU/mL 03/08/2017 %Hba1C Uce024 % HbA1c 11880- 6 8.5 % 03/08/2017 %Hba1C Tuj002 Gluc Ave 197 mg/dL 03/08/2017 %Hba1C Ztp801 % HbA1c 45576- 6 9.8 % 12/04/2016 %Hba1C Pmb221 Gluc Ave 235 mg/dL 12/04/2016 Tsh Ord6 hTSH II 10.65 uIU/mL 11/30/2016 Comp Metabolic Yjd492 NA 134 mEq/L 11/30/2016 Comp Metabolic Rkf246 K 5.0 mEq/L 11/30/2016 Comp Metabolic Obs506 CL 95 mEq/L 11/30/2016 Comp Metabolic Vgb751 CO2 34.0 mEq/L 11/30/2016 Comp Metabolic Nao577 ANION GAP 10 11/30/2016 Comp Metabolic Ujw674 GLUCOSE 226 mg/dL 11/30/2016 Comp Metabolic Niv284 Creat 1.3 mg/dL 11/30/2016 Comp Metabolic Fhy800 eGFR 56 ml/min/1.73m2 11/30/2016 Comp Metabolic Iya171 BUN 21 mg/dL 11/30/2016 Comp Metabolic Cit179 B/C Ratio 15.7 Ratio 11/30/2016 Comp Metabolic Vbg358 CALCIUM 8.9 mg/dL 11/30/2016 Comp Metabolic Zsz463 ALK PHOS 112 U/L 11/30/2016 Comp Metabolic Fkm385 AST(SGOT) 9 U/L 11/30/2016 Comp Metabolic Akr309 ALT(SGPT) 7 U/L 11/30/2016 Comp Metabolic Rrh717 BILI T 0.6 mg/dL 11/30/2016 Comp Metabolic Sty127 ALBUMIN 3.6 g/dL 11/30/2016 Comp Metabolic Hzw189 TPRO 6.4 g/dL 11/30/2016 Comp Metabolic Hbu072 GLOB 2.9 g/dL 11/30/2016 Comp Metabolic Got363 A/G Ratio 1.2 Ratio 11/30/2016 Comp Metabolic Sfs507 Osmo 278 mOsmo 11/30/2016 Lipid Ord30 CHOL [...] 30.6 pg 11/30/2016 Cbc With Differential Ord2 Woodruff% 7.9 % 11/30/2016 Cbc With Differential Ord2 [...] 1.34 K/ul 11/30/2016 Cbc With Differential Ord2 [place]ruff ABS# 0.8 K/ul 11/30/2016 Cbc With Differential Ord2 Eos ABS# 0.3 K/ul 11/30/2016 Cbc With Differential Ord2 Baso ABS# 0.0 K/ul 11/30/2016 Free T4 Pyt647 FREE T4 0.89 ng/dL 11/30/2016 Review of [...] sounds 03/12/2019 None Full Exam - General 1994 Musculoskeletal [...] affect 03/12/2019 None Full Exam - General 1994 Constitutional general appearance Development: well developed 02/25/2019 None Full Exam - General 1994 [...] General 1994 Eyes conjunctiva/eyelids Overall: conjunctiva clear 11/08/2017 None Full Exam - General 1994 Eyes conjunctiva/eyelids Overall: cornea clear 11/08/2017 None Full Exam - General 1994 Eyes conjunctiva/eyelids Overall: eyelids normal 11/08/2017 None [...] Codes Date URINALYSIS NONAUTO W/O SCOPE CPT-4: 03747 03/12/2019 ADMIN PNEUMOCOCCAL VACCINE SNOMED CT: 85026213 CPT-4: G0009 02/05/2018 Pneumococcal Polysaccharide Vaccine, 23-Valent, Ad CPT-4: 52737 02/05/2018 PPPS, SUBSEQ VISIT CPT- 4: G0439 11/30/2017 URINALYSIS NONAUTO W/O SCOPE CPT-4: 68807 03/22/2017 URINALYSIS NONAUTO W/O SCOPE CPT-4: 39643 03/21/2017 PPPS, SUBSEQ VISIT CPT- 4: G0439 11/30/2016 PNEUMOCOCCAL VACC 13 JAVIER IM Formatting Model/CDA Sections, Assigned to SNOMED CT: 70388330 CPT-4: [id number] 11/30/2016 ADMIN PNEUMOCOCCAL VACCINE SNOMED CT: 82438891 CPT-4: G0009 11/30/2016 Vital Signs Date Vital 03/12/2019 Blood Pressure 1: 140/52 Code: 8480-6 Heart Rate 1: 60 bpm Height: 5'10" SpO2: 96% Weight: 02/25/2019 Blood Pressure 1: 110/58 Code: 8480-6 BMI: 38.3 Code: 02252-9 Heart Rate 1: 47 bpm Height: 5'10" SpO2: 97% Weight: 267 lbs 10/18/2018 Blood Pressure 1: 118/70 Code: 8480-6 BMI: 39.0 Code: 31303-1 Heart Rate 1: 86 bpm Height: 5'10" SpO2: 95% Weight: 272 lbs 10/14/2018 Blood Pressure 1: 120/56 Code: 8480-6 Heart Rate 1: 67 bpm Height: 5'10" SpO2: 92% 10/10/2018 Blood Pressure 1: 126/70 Code: 8480-6 BMI: 34.7 Code: 92456-4 Heart Rate 1: 80 bpm Height: 5'10" SpO2: 96% Temperature: 37.1 (C) / 98.7 (F) Weight: 242 lbs 10/04/2018 Blood Pressure 1: 120/70 Code: 8480-6 Height: 5'10" SpO2: 96% 08/29/2018 Blood Pressure 1: 104/60 Code: 8480-6 BMI: 34.6 Code: 27790-4 Heart Rate 1: 68 bpm Height: 5'10" SpO2: 98% Weight: 241 lbs 02/25/2018 Blood Pressure 1: 120/70 Code: 8480-6 BMI: 37.0 Code: 95794-6 Heart Rate 1: 51 bpm Height: 5'10" SpO2: 97% Weight: 258 lbs 02/20/2018 Blood Pressure 1: 124/70 Code: 8480-6 BMI: 38.0 Code: 54616-2 Heart Rate 1: 60 bpm Height: 5'10" SpO2: 96% Weight: 265 lbs 02/05/2018 Blood Pressure 1: 116/66 Code: 8480-6 BMI: 38.0 Code: 90110-5 Heart Rate 1: 63 bpm Height: 5'10" SpO2: 98% Weight: 265 lbs 11/30/2017 Blood Pressure 1: 132/60 Code: 8480-6 BMI: 37.0 Code: 52732-3 Heart Rate 1: 100 bpm Height: 5'10" SpO2: 96% Waist Measure (cm): 122 cm Weight: 258 lbs 11/08/2017 Blood Pressure 1: 126/64 Code: 8480-6 BMI: 37.2 Code: 12190-1 Heart Rate 1: 92 bpm Height: 5'10" SpO2: 94% Weight: 259 lbs 09/20/2017 Blood Pressure 1: 122/68 Code: 8480-6 BMI: 36.9 Code: 16079-0 Heart Rate 1: 57 bpm Height: 5'10" SpO2: 96% Weight: 257 lbs 06/25/2017 Blood Pressure 1: 12468 Code: 8480-6 BMI: 37.0 Code: 94755-2 Height: 5'10" Weight: 258 lbs 06/07/2017 Blood Pressure 1: 122/64 Code: 8480-6 BMI: 37.0 Code: 93480-0 Heart Rate 1: 60 bpm Height: 5'10" SpO2: 94% Temperature: 36.4 (C) / 97.6 (F) Weight: 258 lbs 05/03/2017 Blood Pressure 1: 118/74 Code: 8480-6 BMI: 38.2 Code: 11682-1 Heart Rate 1: 52 bpm Height: 5'10" SpO2: 98% Weight: 266 lbs 04/02/2017 Blood Pressure 1: 118/62 Code: 8480-6 BMI: 38.2 Code: 25098-6 Heart Rate 1: 53 bpm Height: 5'10" SpO2: 93% Weight: 266 lbs 03/26/2017 Blood Pressure 1: 114/62 Code: 8480-6 BMI: 38.3 Code: 30814-6 Height: 5'10" Weight: 267 lbs 03/22/2017 Blood Pressure 1: 122/64 Code: 8480-6 BMI: 40.0 Code: 52281-2 Heart Rate 1: 52 bpm Height: 5'10" SpO2: 94% Weight: 279 lbs 03/08/2017 Blood Pressure 1: 124/70 Code: 8480-6 BMI: 39.4 Code: 67345-2 Heart Rate 1: 51 bpm Height: 5'10" SpO2: 94% Weight: 274 lbs 8 oz 12/06/2016 Blood Pressure 1: 126/62 Code: 8480-6 BMI: 40.3 Code: 87566-7 Heart Rate 1: 50 bpm Height: 5'10" SpO2: 94% Weight: 281 lbs 11/30/2016 Blood Pressure 1: 112/62 Code: 8480-6 BMI: 40.3 Code: 52516-5 Heart Rate 1: 52 bpm Height: 5'10" SpO2: 93% Waist Measure (cm): 135 cm Weight: 281 lbs 11/28/2016 Blood Pressure 1: 132/72 Code: 8480-6 BMI: 40.3 Code: 29856-3 Heart Rate 1: 50 bpm Height: 5'10" Weight: 281 lbs 05/04/2016 Blood Pressure 1: 128/78 Code: 8480-6 BMI: 38.5 Code: 26198-7 Heart Rate 1: 74 bpm Height: 5'10" SpO2: 98% Weight: 268 lbs 8 oz 11/04/2015 Blood Pressure 1: 136/60 Code: 8480-6 BMI: 38.0 Code: 93543-5 Heart Rate 1: 55 bpm Height: 5'10" SpO2: 94% Weight: 265 lbs 07/30/2015 Blood Pressure 1: 128/74 Code: 8480-6 BMI: 38.0 Code: 47101-1 Heart Rate 1: 47 bpm Height: 5'10" SpO2: 97% Weight: 265 lbs 01/26/2015 Blood Pressure 1: 122/64 Code: 8480-6 BMI: 34.0 Code: 89647-5 Heart Rate 1: 68 bpm Height: 5'10" [...] data Encounters Encounter Performer Location Codes Date 72469 EST. PATIENT, LEVEL III Diagnosis: Dysuria[ICD10: R30.0] Diagnosis: Type 2 diabetes mellitus with hyperglycemia[ICD10: E11.65] [facility] CPT-4: 38903 03/12/2019 [id number]) [id number] EST. PATIENT, LEVEL IV Diagnosis: Essential (primary) hypertension[ICD10: I10] Diagnosis: Type 2 diabetes mellitus with hyperglycemia[ICD10: E11.65] Diagnosis: Chronic pain syndrome[ICD10: G89.4] Diagnosis: Chronic kidney disease, stage 3 (moderate)[ICD10: N18.3] Sarah Sanchez MD, [facility] CPT-4: 24457 02/25/2019 [id number] EST. PATIENT, LEVEL III Diagnosis: Localized edema[ICD10: R60.0] Diagnosis: Cellulitis of left lower limb[ICD10: L03.116] Diagnosis: Cellulitis of right lower limb[ICD10: L03.115] Kiki Sanchez MD, [facility] CPT-4: 79478 10/18/2018 33542 EST. PATIENT, LEVEL III Diagnosis: Localized edema[ICD10: R60.0] Diagnosis: Cellulitis of left lower limb[ICD10: L03.116] Diagnosis: Cellulitis of right lower limb[ICD10: L03.115] Diagnosis: Chronic obstructive pulmonary disease, unspecified[ICD10: J44.9] Diagnosis: Weakness[ICD10: R53.1] Kiki Sanchez MD, [facility] CPT-4: 78386 10/14/2018 [id number] EST. PATIENT, LEVEL III Diagnosis: Localized edema[ICD10: R60.0] Diagnosis: Cellulitis of left lower limb[ICD10: L03.116] Diagnosis: Cellulitis of right lower limb[ICD10: L03.115] Kiki Sanchez MD, [facility] CPT-4: 46896 10/10/2018 ([id number]) 54047 EST. PATIENT, LEVEL IV Diagnosis: Type 2 diabetes mellitus with foot ulcer[ICD10: E11.621] Diagnosis: Essential (primary) hypertension[ICD10: I10] Diagnosis: Malignant neoplasm of prostate[ICD10: C61] Diagnosis: Chronic obstructive pulmonary disease, unspecified[ICD10: J44.9] Diagnosis: Hypoxemia[ICD10: R09.02] Sarah Sanchez MD, [facility] CPT-4: 35976 10/04/2018 ([id number]) 09029 EST. PATIENT, LEVEL IV Diagnosis: Type 2 diabetes mellitus with hyperglycemia[ICD10: E11.65] Diagnosis: Essential (primary) hypertension[ICD10: I10] Diagnosis: Malignant neoplasm of prostate[ICD10: C61] Sarah Sanchez MD, [facility] CPT-4: 21528 08/29/2018 ([id number]) 49450 EST. PATIENT, LEVEL IV Diagnosis: Malignant neoplasm of prostate[ICD10: C61] Dorene Sanchez MD, [facility] CPT-4: 94331 02/25/2018 19756 EST. PATIENT, LEVEL IV Diagnosis: Generalized abdominal pain[ICD10: R10.84] Diagnosis: Unspecified jaundice[ICD10: R17] Diagnosis: Gross hematuria[ICD10: R31.0] Kiki Sanchez MD, [facility] CPT-4: 75500 02/20/2018 ([id number]) 74189 EST. PATIENT, LEVEL IV Diagnosis: Type 2 diabetes mellitus with hyperglycemia[ICD10: E11.65] Diagnosis: Essential (primary) hypertension[ICD10: I10] Diagnosis: Chronic kidney disease, stage 3 (moderate)[ICD10: N18.3] Diagnosis: Chronic pain syndrome[ICD10: G89.4] Diagnosis: Other specified hypothyroidism[ICD10: E03.8] Diagnosis: Encounter for screening for malignant neoplasm of prostate[ICD10: Z12.5] Diagnosis: Encounter for immunization[ICD10: Z23] Sarah Sanchez MD, [facility] CPT-4: 30409 02/05/2018 ([id number]) 39023 EST. PATIENT, LEVEL IV Diagnosis: Type 2 diabetes mellitus with hyperglycemia[ICD10: E11.65] Diagnosis: Essential (primary) hypertension[ICD10: I10] Dorene Sanchez MD, [facility] CPT-4: 64097 11/08/2017 ([id number]) 88424 EST. PATIENT, LEVEL IV Diagnosis: Type 2 diabetes mellitus with hyperglycemia[ICD10: E11.65] Diagnosis: Chronic pain syndrome[ICD10: G89.4] Diagnosis: Essential (primary) hypertension[ICD10: I10] Diagnosis: Chronic kidney disease, stage 3 (moderate)[ICD10: N18.3] Diagnosis: Localized edema[ICD10: R60.0] Dorene Sanchez MD, [facility] CPT-4: 37789 09/20/2017 ([id number]) 23686 EST. PATIENT, LEVEL III Diagnosis: Type 2 diabetes mellitus with hyperglycemia[ICD10: E11.65] Sarah Sanchez MD, [facility] CPT-4: 94065 06/25/2017 ([id number]) 73171 EST. PATIENT, LEVEL III Diagnosis: Cellulitis of left lower limb[ICD10: L03.116] Sarah Sanchez MD, [facility] CPT-4: 97441 06/07/2017 ([id number]) 20133 EST. PATIENT, LEVEL III Diagnosis: Localized edema[ICD10: R60.0] Diagnosis: Type 2 diabetes mellitus with foot ulcer[ICD10: E11.621] Sarah Sanchez MD [facility] CPT-4: 61564 05/03/2017 ([id number]) 77262 EST. PATIENT, LEVEL III Diagnosis: Cellulitis of left lower limb[ICD10: L03.116] Diagnosis: Localized edema[ICD10: R60.0] Sarah Sanchez MD [facility] CPT-4: 51955 04/02/2017 ([id number]) Miscellaneous no charge Diagnosis: Localized edema[ICD10: R60.0] Diagnosis: Cellulitis of left lower limb[ICD10: L03.116] Sarah Sanchez MD, [facility] CPT-4: 43413 03/26/2017 ([id number]) 63869 EST. 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 CPT-4: 65838 03/22/2017 ([id number]) 09094 EST. PATIENT, LEVEL IV Diagnosis: Type 2 diabetes mellitus with hyperglycemia[ICD10: E11.65] Diagnosis: Other specified hypothyroidism[ICD10: E03.8] Diagnosis: Essential (primary) hypertension[ICD10: I10] Sarah Sanchez MD, [facility] CPT-4: 60465 03/08/2017 ([id number]) 12918 EST. PATIENT, LEVEL III Diagnosis: Type 2 diabetes mellitus with hyperglycemia[ICD10: E11.65] Diagnosis: Other specified hypothyroidism[ICD10: E03.8] Sarah Sanchez MD, [facility] CPT-4: 30684 12/06/2016 ([id number]) 36054 EST. PATIENT, LEVEL IV Diagnosis: Essential (primary) hypertension[ICD10: I10] Diagnosis: Chronic kidney disease, stage 3 (moderate)[ICD10: N18.3] Dorene Sanchez MD, [facility] CPT-4: 03526 11/28/2016 ([id number]) 36557 EST. PATIENT, LEVEL IV Diagnosis: Essential (primary) hypertension[ICD10: I10] Diagnosis: Chronic pain syndrome[ICD10: G89.4] Diagnosis: Chronic kidney disease, stage 3 (moderate)[ICD10: N18.3] Diagnosis: Vitamin B12 deficiency anemia due to intrinsic factor deficiency[ICD10: D51.0] Diagnosis: Other specified hypothyroidism[ICD10: E03.8] Dorene Sanchez MD, [facility] CPT-4: 40672 05/04/2016 46882 EST. PATIENT, LEVEL III Diagnosis: Chronic pain syndrome[ICD10: G89.4] Diagnosis: Essential (primary) hypertension[ICD10: I10] Diagnosis: Other specified hypothyroidism[ICD10: E03.8] Kiki Sanchez MD, [facility] CPT-4: 91797 11/04/2015 75542 EST. PATIENT, LEVEL III Diagnosis: Chronic pain syndrome[ICD10: G89.4] Diagnosis: Essential (primary) hypertension[ICD10: I10] Kiki Sanchez MD, [facility] CPT-4: 44030 07/30/2015 ([id number]) OFFICE/OUTPATIENT VISIT NEW Diagnosis: ESSENTIAL HYPERTENSION[ICD9: 401.9] Diagnosis: HYPOTHYROIDISM[ICD9: 244.9] Diagnosis: ANEMIA[ICD9: 285.9] Diagnosis: Vitamin B12 deficiency[ICD9: 266.2] Diagnosis: CHRONIC PAIN SYNDROME[ICD9: 338.4] Diagnosis: Chronic renal insufficiency, stage III (moderate)[ICD9: 585.3] Diagnosis: GOUT[ICD9: 274.9] Dorene Sanchez MD, [facility] CPT-4: 95345 01/26/2015 Plan of Care Planned Activity Notes [...] glucose control. 03/12/2019 Appointment: [phone] [facility] [place] (15 min) Moderate 03/12/2019 Appointment: Nurse Visit [...] of over-medication. 02/25/2019 Appointment: [facility] [phone] [phone] [place] (15 min) Moderate 02/25/2019 Patient [...] warmth, discharge. 10/18/2018 Appointment: Kiki Menjivar WPtel: [facility] (30 min) [facility] 10/18/2018 Patient Education: Patient Medication Summary Completed [...] edema. 10/14/2018 Appointment: Kiki Menjivar WPtel: [phone] [facility] (30 min) Complex 10/14/2018 Patient Education: Patient [...] discharge. 10/10/2018 Appointment: Kiki Menjivar WPtel: [phone] [facility] (30 min) Complex 10/10/2018 Patient Education: Patient Medication Summary Completed 10/10/2018 Visit Plan: DM with peripheral neuropathy-paperwork completed for diabetic shoes and will fax to Dr Bauer HTN-controlled -no changes Wxpdacgch-RUNF-PVF-prostate cancer with mets- patient qualifies for oxygen-oxy gen saturation dropped to 86% on room air during ambulation but increased to 99% on 2L NC at rest-will send orders to [facility] for continue oxygen at 2L per nasal cannula 10/04/2018 Appointment: Sarah Hernandes WPtel: [phone] [phone] (30 min) Complex 10/04/2018 Patient Education: Patient [...] Dr Moreno 08/29/2018 Appointment: Sarah Hernandes WPtel: [phone] (15 min) Moderate 08/29/2018 Patient Education: Patient Medication Summary Completed 08/29/2018 Referral: Edgard Rivera MD WPtel: Via [address] Dr[address] Moreno. Patient informed. Referral info faxed. Completed 02/27/2018 Visit Plan: Recurrent prostate cancer - I have recommended a referral to Dr. Rivera. We discussed the case at length today- he is not interested in extensive treatment, but if possible to extend his quantity and quality of life, he would like to try. 02/25/2018 Appointment: Dorene Sanchez WPtel: [facility]5 [facility] (15 min) Moderate 02/25/2018 Patient Education: Patient Medication Summary Completed 02/25/2018 Care Plan: Referral Order SNOMED-CT : [id number] Pending 02/25/2018 Visit Plan: Intermittent abdominal pain, jaundice, itching - will check labs and treat as indicated - pt is to go to the ER with any acute change in symptoms or any acute concerns. 02/20/2018 Appointment: Kiki Menjivar WPtel: [facility]5 [facility] (30 min) Complex 02/20/2018 Patient [...] control. 02/05/2018 Appointment: Sarah Hernandes WPtel: [phone] [phone] (30 min) Complex 02/05/2018 Patient Education: Patient [...] surrogate. 11/30/2017 Appointment: [facility]Ptel[facility] [phone] [phone] [facility] - Annual Wellness Visit 11/30/2017 Patient [...] to 1.2 11/08/2017 Appointment: Dorene Sanchez WPtel: [phone] [facility] (15 min) Moderate 11/08/2017 Patient Education: [...] over-medication. 09/20/2017 Appointment: [phone] [place] (15 min) Moderate 09/20/2017 [...] glucose control. 06/25/2017 Appointment: Sarah Hernandes WPtel: [facility]5 [phone] (30 min) Complex 06/25/2017 Patient Education: Patient Medication Summary Completed 06/25/2017 Appointment: Sarah Hernandes WPtel: [facility]5 [phone] (30 min) Complex 06/22/2017 Visit Plan: Cellulitis - start oral antibiotics as previously directed, return to clinic as previously directed, call for acute change in symptoms, worsening redness, warmth, discharge. 06/07/2017 Appointment: Sarah Hernandes WPtel: [phone] (30 min) Complex 06/07/2017 Patient Education: Patient Medication Summary Completed 06/07/2017 Patient Education: Obesity Completed 06/07/2017 Appointment: Dorene Sanchez WPtel: [address] [place], [place] [phone] [place] (15 min) Moderate 05/31/2017 Visit Plan: Edema-significantly improved-no changes Ulcer-left lower leg and foot-seeing Dr Norwood at wound care-appt scheduled with Dr Frausto for vascular evaluation 05/03/2017 Appointment: Sarah Hernandes WPtel: [phone] (15 min) Moderate 05/03/2017 Patient Education: Patient Medication Summary Completed 05/03/2017 Patient Education: Obesity Completed 05/03/2017 Visit Plan: Potktmpsyg-okhzgbysm-ygomnmn to finish abx-no further treatment indicated Edema-significantly improved-no longer weeping-continue unna boots twice weekly with home health 04/02/2017 Appointment: Sarah Hernandes WPtel: [phone] [phone] (30 min) Complex 04/02/2017 Patient Education: Patient Medication Summary Completed 04/02/2017 Patient Education: Obesity Completed 04/02/2017 Visit Plan: Cellulitis-left leg-continue levaquin Edema-increase lasix/potassium-consult [facility] for unna boots/dressing changes 03/26/2017 Appointment: Sarah Hernandes WPtel: [phone] [phone] (15 min) Moderate 03/26/2017 Patient [...] aleve 03/22/2017 Appointment: [facility]Ptel[facility] [phone] [phone] (15 min) Moderate 03/22/2017 Patient Education: [...] of control. 03/08/2017 Appointment: Sarah Hernandes WPte: [address] [place], [place] [phone] (30 min) Complex 03/08/2017 Patient Education: Patient [...] care surrogate. 11/30/2016 Appointment: Sarah Hernandes WPtel: [address] [place] [phone] [facility] - Annual Wellness Visit 11/30/2016 Patient [...] fluids. 11/28/2016 Appointment: [facility]el[phone] [phone] (15 min) Moderate 11/28/2016 Patient [...] 01/26/2015 Referral: Edgard Rivera MD WPtel: [address] Referral Appointment Requested Instructions Comment . [...] AND POTASSIUM TO TWICE DAILY [facility] FOR UNNA BOOTS -WOUND CARE . 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 Will send Dr. Bauer note for surgical [...] fax to Dr Bauer HTN-controlled -no changes Bdbqdncwu-RRRO-IMR-prostate cancer with mets- patient qualifies for oxygen- oxygen saturation dropped to 86% on room air during ambulation but increased to 99% on 2L NC at rest-will send orders to [facility] for continue oxygen at 2L per nasal cannula take lasix 2 in the morning and [...] b12 shots. WOUND CARE APPT ANTIBIOTIC TO [facility] . 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 Intermittent abdominal pain, jaundice, itching - [...] with Dr Frausto for vascular evaluation . Yhwngisjaj-vtwjsvlzw-tdypiwa to finish abx-no further treatment indicated Edema-significantly improved-no longer weeping-continue unna boots twice weekly with home health
--- OUTSIDE RECORDS SUMMARY | 2019-03-24 07:55 | XMS REPORT | CCD ---
Author Author Dorene Sanchez Organization [facility] Address [address] [place] [address] Phone Care Team Providers Care Security Researcher Name Role Phone PP Unavailable CCM Unavailable Summary Purpose Interface Exchange Insurance Providers Payer name Policy type / Coverage type Covered alliance party ID Effective Begin Date Effective End Date WPS Medicare Part B Medicare Part B [id number] Unknown Unknown Family history Father Diagnosis Age At Onset Stroke Unknown Mother Diagnosis Age At Onset Stroke Unknown Diabetes mellitus Type 2 Unknown Social History Social History Element Codes Description Effective Dates Tobacco history SNOMED CT: 689441131 Currently uses smokeless tobacco Chews 05/04/2016 Marital status Unknown 01/26/2015 Number of children Unknown 3 01/26/2015 Employment Unknown Retired 01/26/[address]: 612127685 Never drinks alcohol quit in July 2014 [...] Fill Instructions levothyroxine 200 mcg tablet RxNorm: 248791 TAKE ONE TABLET BY MOUTH DAILY ON AN EMPTY STOMACH 03/13/2019 12/07/2019 Active bisoprolol 5 mg-hydrochlorothiazide 6.25 mg tablet RxNorm: 288045 TAKE ONE TABLET BY MOUTH DAILY 03/13/2019 12/07/2019 Active Keflex 500 mg capsule RxNorm: 187634 1 Capsule(s) PO TID 03/12/2019 03/21/2019 Active potassium chloride ER 10 mEq tablet,extended release RxNorm: 225019 TAKE ONE TABLET BY MOUTH DAILY 03/10/2019 09/05/2019 Active oxycodone 10 mg tablet RxNorm: 1381486 1 Tablet(s) PO Q4 PRN 02/25/2019 No Stop Date Active oxycodone 20 mg tablet RxNorm: 1752364 1/2 Tablet(s) PO Q6 as needed 01/21/2019 02/24/2019 Inactive oxycodone 20 mg tablet RxNorm: 4302320 1/2 Tablet(s) PO Q6 as needed 12/18/2018 01/16/2019 Inactive oxycodone 20 mg tablet RxNorm: 0924053 1/2 Tablet(s) PO Q6 as needed 11/12/2018 12/11/2018 Inactive gabapentin 100 mg capsule RxNorm: 966606 1 Capsule(s) BID 11/05/2018 05/03/2019 Active potassium chloride ER 10 mEq tablet,extended release RxNorm: 799996 TAKE ONE TABLET BY MOUTH DAILY 11/04/2018 11/19/2018 Inactive Probiotic 10 billion cell capsule RxNorm: 3450417 1 Capsule(s) PO BID 10/25/2018 10/24/2018 Inactive Keflex 500 mg capsule RxNorm: 421765 1 Capsule(s) PO QID 10/25/2018 10/31/2018 Inactive Probiotic 10 billion cell capsule RxNorm: 4836334 1 Capsule(s) PO BID 10/25/2018 10/31/2018 Inactive oxycodone 20 mg tablet RxNorm: 1939573 1/2 Tablet(s) PO Q6 as needed 10/14/2018 11/11/2018 Inactive Lasix 20 mg tablet RxNorm: 487741 1 Tablet(s) PO BID 10/10/2018 04/07/2019 Active Keflex 500 mg capsule RxNorm: 464254 1 Capsule(s) PO TID 10/10/2018 10/19/2018 Inactive potassium chloride ER 10 mEq tablet,extended release RxNorm: 446587 1 Tablet(s) PO daily 10/10/2018 11/03/2018 Inactive albuterol sulfate 2.5 mg/3 mL (0.083 %) solution for nebulization RxNorm: 684396 1 Milliliter(s) INH TID DX J44.9 10/04/2018 01/31/2019 Inactive gabapentin 100 mg capsule RxNorm: 396380 TAKE ONE CAPSULE BY MOUTH IN THE EVENING AT 5PM 09/24/2018 11/04/2018 Inactive oxycodone 20 mg tablet RxNorm: 4206868 1/2 Tablet(s) PO Q6 as needed 09/12/2018 10/11/2018 Inactive oxycodone 20 mg tablet RxNorm: 9288739 1/2 Tablet(s) PO Q6 as needed 08/15/2018 09/11/2018 Inactive oxycodone 20 mg tablet RxNorm: 0729395 1/2 Tablet(s) PO Q6 as needed 07/16/2018 08/14/2018 Inactive oxycodone 20 mg tablet RxNorm: 1884442 1/2 Tablet(s) PO Q6 as needed 06/14/2018 07/13/2018 Inactive gabapentin 100 mg capsule RxNorm: 745711 TAKE ONE CAPSULE BY MOUTH IN THE EVENING AT 5PM 05/30/2018 09/23/2018 Inactive oxycodone 20 mg tablet RxNorm: 2589283 1/2 Tablet(s) PO Q6 as needed 05/15/2018 06/13/2018 Inactive oxycodone 20 mg tablet RxNorm: 9263981 1/2 Tablet(s) PO Q6 as needed 04/12/2018 05/11/2018 Inactive oxycodone 20 mg tablet RxNorm: 7765436 1/2 Tablet(s) PO Q6 as needed 03/11/2018 04/09/2018 Inactive Cipro 500 mg tablet RxNorm: 038264 1 Tablet(s) PO BID 02/21/2018 02/20/2018 Inactive levothyroxine 200 mcg tablet RxNorm: 563755 1 Tablet(s) PO daily 02/21/2018 02/20/2018 Inactive Cipro 500 mg tablet RxNorm: 545596 1 Tablet(s) PO BID 02/21/2018 03/02/2018 Inactive levothyroxine 200 mcg tablet RxNorm: 260330 1 Tablet(s) PO daily 02/21/2018 02/15/2019 Inactive oxycodone 20 mg tablet RxNorm: 4562975 1/2 Tablet(s) PO Q6 as needed 02/12/2018 03/10/2018 Inactive oxycodone 20 mg tablet RxNorm: 2005794 1/2 Tablet(s) PO Q6 as needed 01/16/2018 02/11/2018 Inactive gabapentin 100 mg capsule RxNorm: 514703 TAKE ONE CAPSULE BY MOUTH IN THE EVENING AT 5PM 01/15/2018 05/29/2018 Inactive bisoprolol 5 mg-hydrochlorothiazide 6.25 mg tablet RxNorm: 681931 TAKE ONE TABLET BY MOUTH DAILY 01/01/2018 12/26/2018 Inactive oxycodone 20 mg tablet RxNorm: 9057658 1/2 Tablet(s) PO Q6 as needed 12/20/2017 01/14/2018 Inactive oxycodone 20 mg tablet RxNorm: 5669627 1/2 Tablet(s) PO Q6 as needed 11/20/2017 12/19/2017 Inactive Victoza 2-Dino 0.6 mg/0.1 mL (18 mg/3 mL) subcutaneous pen injector RxNorm: 563400 1.2 Milligram(s) SQ daily 11/08/2017 12/07/2017 Inactive oxycodone 20 mg tablet RxNorm: 0599024 1/2 Tablet(s) PO Q6 as needed 10/19/2017 11/17/2017 Inactive gabapentin 100 mg capsule RxNorm: 268038 1 Capsule(s) PO QPM at 5 pm 09/20/2017 01/14/2018 Inactive Lasix 20 mg tablet RxNorm: 961210 1 Tablet(s) QAM at 5pm 09/20/2017 03/18/2018 Inactive oxycodone 20 mg tablet RxNorm: 8987857 1/2 Tablet(s) PO Q6 as needed 09/18/2017 10/17/2017 Inactive oxycodone 20 mg tablet RxNorm: 2312663 1/2 Tablet(s) PO Q6 as needed 08/14/2017 09/12/2017 Inactive ketoconazole 2 % topical cream RxNorm: 802818 1 Gram(s) TOP BID to affected area until healed 08/03/2017 No Stop Date Active oxycodone 20 mg tablet RxNorm: 2837670 1/2 Tablet(s) PO Q6 as needed 07/17/2017 08/13/2017 Inactive pen needle, diabetic 31 gauge x 5/16" RxNorm: 1 Unit Dose Miscellaneous daily 06/25/2017 03/21/2018 Inactive daily use with victoza Bactrim DS 800 mg-160 mg tablet RxNorm: 937148 1 Tablet(s) PO BID Dr Norwood 06/25/2017 07/04/2017 Inactive Victoza 2-Dino 0.6 mg/0.1 mL (18 mg/3 mL) subcutaneous pen injector RxNorm: 805335 0.6 Milligram(s) SQ daily 06/25/2017 07/24/2017 Inactive doxycycline hyclate 100 mg tablet RxNorm: 437293 1 Tablet(s) PO BID Dr Norwood 06/21/2017 06/30/2017 Inactive oxycodone 20 mg tablet RxNorm: 9537024 1/2 Tablet(s) PO Q6 as needed 06/14/2017 07/13/2017 Inactive clindamycin 150 mg capsule RxNorm: 227757 1 Capsule(s) PO Q8 06/07/2017 06/16/2017 Inactive levothyroxine 175 mcg tablet RxNorm: 380285 TAKE ONE TABLET BY MOUTH DAILY 06/04/2017 09/01/2017 Inactive levothyroxine 175 mcg tablet RxNorm: 593357 TAKE ONE TABLET BY MOUTH DAILY 06/04/2017 11/30/2017 Inactive bisoprolol 5 mg-hydrochlorothiazide 6.25 mg tablet RxNorm: 961591 TAKE ONE TABLET BY MOUTH DAILY 05/24/2017 11/19/2017 Inactive oxycodone 20 mg tablet RxNorm: 4346290 1/2 Tablet(s) PO Q6 as needed 05/14/2017 06/12/2017 Inactive potassium chloride ER 10 mEq capsule,extended release RxNorm: 211124 TAKE ONE CAPSULE BY MOUTH DAILY NEEDED FOR 5 DAYS THEN NEEDED WITH LASIX 04/17/2017 10/13/2017 Inactive Lasix 20 mg tablet RxNorm: 267009 TAKE ONE TABLET BY MOUTH DAILY NEEDED 04/17/2017 09/19/2017 Inactive oxycodone 20 mg tablet RxNorm: 3385898 1/2 Tablet(s) PO Q6 as needed 04/12/2017 05/11/2017 Inactive Colcrys 0.6 mg tablet RxNorm: 793525 2 tabs at onset then may repeat 1 tab in 1 hours if needed- Tablet(s) PO 04/09/2017 No Stop Date Active then take daily until gout resolved Bactrim DS 800 mg-160 mg tablet RxNorm: 045693 1 Tablet(s) PO BID 04/09/2017 04/08/2017 Inactive dc levaquin Bactrim DS 800 mg-160 mg tablet RxNorm: 211095 1 Tablet(s) PO BID 04/09/2017 04/15/2017 Inactive dc levaquin Levaquin 500 mg tablet RxNorm: 847781 1 Tablet(s) PO daily 04/03/2017 04/02/2017 Inactive Levaquin 500 mg tablet RxNorm: 633994 1 Tablet(s) PO daily 04/03/2017 06/06/2017 Inactive indomethacin 25 mg capsule RxNorm: 717885 1 Capsule(s) PO TID PRN 03/22/2017 03/22/2017 Inactive Lasix 20 mg tablet RxNorm: 554406 1 Tablet(s) PO QDAY PRN 03/22/2017 04/16/2017 Inactive daily x 5 days then as needed Levaquin 500 mg tablet RxNorm: 408144 1 Tablet(s) PO daily 03/22/2017 03/31/2017 Inactive potassium chloride ER 10 mEq capsule,extended release RxNorm: 936236 1 Capsule(s) PO QDAY PRN 03/22/2017 04/16/2017 Inactive daily x 5 days then as needed with lasix oxycodone 20 mg tablet RxNorm: 2996593 1/2 Tablet(s) PO Q6 as needed 03/08/2017 04/06/2017 Inactive bisoprolol 5 mg-hydrochlorothiazide 6.25 mg tablet RxNorm: 114371 TAKE ONE TABLET BY MOUTH DAILY 02/14/2017 05/14/2017 Inactive oxycodone 20 mg tablet RxNorm: 2258711 1/2 Tablet(s) PO Q6 as needed 02/08/2017 03/07/2017 Inactive oxycodone 20 mg tablet RxNorm: 7175398 1/2 Tablet(s) PO Q6 as needed 01/08/2017 02/06/2017 Inactive levothyroxine 175 mcg tablet RxNorm: 447399 1 Tablet(s) PO daily 12/06/2016 06/03/2017 Inactive [SAVINGS FOR NON-COVERED DRUGS -- BIN:[id number], PCN: ASPROD1, Group: XXXXX, ID# XXXXXXX, Questions: . THIS IS NOT INSURANCE.] oxycodone 20 mg tablet RxNorm: 2038442 1/2 Tablet(s) PO Q6 as needed 12/04/2016 01/02/2017 Inactive oxycodone 20 mg tablet RxNorm: 8310676 1/2 Tablet(s) PO Q6 as needed 11/09/2016 12/03/2016 Inactive bisoprolol 5 mg-hydrochlorothiazide 6.25 mg tablet RxNorm: 798235 TAKE ONE TABLET BY MOUTH DAILY 11/08/2016 02/05/2017 Inactive oxycodone 20 mg tablet RxNorm: 3010853 1/2 Tablet(s) PO Q6 as needed 10/05/2016 11/03/2016 Inactive oxycodone 20 mg tablet RxNorm: 1138573 1/2 Tablet(s) PO Q6 as needed 09/06/2016 10/04/2016 Inactive oxycodone 20 mg tablet RxNorm: 4583206 1/2 Tablet(s) PO Q6 as needed 08/07/2016 09/05/2016 Inactive oxycodone 20 mg tablet RxNorm: 7982370 1/2 Tablet(s) PO Q6 as needed 07/04/2016 08/06/2016 Inactive oxycodone 20 mg tablet RxNorm: 3877839 1/2 Tablet(s) PO Q6 as needed 05/29/2016 07/03/2016 Inactive levothyroxine 150 mcg tablet RxNorm: 654992 1 Tablet(s) PO daily 04/10/2016 04/09/2016 Inactive [SAVINGS FOR NON-COVERED DRUGS -- BIN:[id number], PCN: ASPROD1, Group: XXXXX, ID# XXXXXXX, Questions: . THIS IS NOT INSURANCE.] oxycodone 20 mg tablet RxNorm: 5723136 1/2 Tablet(s) PO Q6 as needed 04/10/2016 05/28/2016 Inactive levothyroxine 150 mcg tablet RxNorm: 336101 1 Tablet(s) PO daily 04/10/2016 10/06/2016 Inactive [SAVINGS FOR NON-COVERED DRUGS -- BIN:[id number], PCN: ASPROD1, Group: XXXXX, ID# XXXXXXX, Questions: . THIS IS NOT INSURANCE.] bisoprolol 5 mg-hydrochlorothiazide 6.25 mg tablet RxNorm: 154718 1 Tablet(s) PO daily 02/16/2016 12/31/2017 Inactive oxycodone 20 mg tablet RxNorm: 8212598 1/2 Tablet(s) PO Q6 as needed 02/16/2016 04/09/2016 Inactive oxycodone 20 mg tablet RxNorm: 6489290 1/2 Tablet(s) PO Q6 as needed 01/04/2016 02/15/2016 Inactive bisoprolol 5 mg-hydrochlorothiazide 6.25 mg tablet RxNorm: 560810 1 Tablet(s) PO daily 11/19/2015 01/17/2016 Inactive bisoprolol 5 mg-hydrochlorothiazide 6.25 mg tablet RxNorm: 500374 1 Tablet(s) PO daily 11/04/2015 11/18/2015 Inactive oxycodone 20 mg tablet RxNorm: 8509799 1/2 Tablet(s) PO Q6 as needed 10/27/2015 01/03/2016 Inactive levothyroxine 150 mcg tablet RxNorm: 039934 1 Tablet(s) PO daily 08/26/2015 02/21/2016 Inactive [SAVINGS FOR NON-COVERED DRUGS -- BIN:001063, PCN: ASPROD1, Group: XXXXX, ID# [id number], Questions: . THIS IS NOT INSURANCE.] bisoprolol 5 mg-hydrochlorothiazide 6.25 mg tablet RxNorm: 512846 1 Tablet(s) PO daily 08/26/2015 10/24/2015 Inactive oxycodone 10 mg tablet RxNorm: 5771111 1 Tablet(s) PO Q6 as needed 05/06/2015 10/26/2015 Inactive levothyroxine 150 mcg tablet RxNorm: 739722 1 Tablet(s) PO daily 02/05/2015 08/03/2015 Inactive [SAVINGS FOR NON-COVERED DRUGS -- BIN:818338, PCN: ASPROD1, Group: XXXXX, ID# XXXXXXX, Questions: . THIS IS NOT INSURANCE.] Vitamin D2 50,000 unit capsule RxNorm: 531546 1 Capsule(s) PO weekly 02/05/2015 05/05/2015 Inactive [SAVINGS FOR NON-COVERED DRUGS -- BIN:281818, PCN: ASPROD1, Group: XXXXX, ID# XXXXXXX, Questions: . THIS IS NOT INSURANCE.] Vitamin D2 50,000 unit capsule RxNorm: 824242 1 Capsule(s) PO weekly 02/05/2015 02/04/2015 Inactive bisoprolol 5 mg-hydrochlorothiazide 6.25 mg tablet RxNorm: 149860 1 Tablet(s) PO daily 01/26/2015 02/24/2015 Inactive levothyroxine 200 mcg tablet RxNorm: 869345 1 Tablet(s) PO daily 01/26/2015 01/25/2015 Inactive levothyroxine 200 mcg tablet RxNorm: 982979 1 Tablet(s) PO every other day 01/26/2015 02/04/2015 Inactive [SAVINGS FOR NON-COVERED DRUGS -- BIN:338756, PCN: ASPROD1, Group: XXXXX, ID# XXXXXXX, Questions: . THIS IS NOT INSURANCE.] aspirin 81 mg chewable tablet RxNorm: 080795 1 Tablet(s) PO daily No Start Date Active Plavix 75 mg tablet RxNorm: 511102 1 Tablet(s) PO daily manage by Dr Baig No Start Date Active simvastatin 40 mg tablet RxNorm: 485392 1 Tablet(s) PO QHS managed by Dr Baig No Start Date Active Colcrys 0.6 mg tablet RxNorm: 530967 2 tabs at onset then may repeat 1 tab in 1 hours if needed- Tablet(s) PO No Start Date 04/08/2017 Inactive then take daily until gout resolved aspirin 325 mg tablet RxNorm: 040617 1 Tablet(s) PO daily No Start Date 05/03/2016 Inactive levothyroxine 75 mcg tablet RxNorm: 236093 1 Tablet(s) PO every other day No Start Date 02/04/2015 Inactive takes qod with 200mcg oxycodone 10 mg tablet RxNorm: 4670409 1 Tablet(s) PO Q6 as needed No Start Date 05/05/2015 Inactive ketoconazole 2 % topical cream RxNorm: 045436 1 Gram(s) TOP BID to affected area [...] Code Item Item Code Result Date %Hba1C Ouo785 % HbA1c 36660- 6 9.2 % 02/25/2019 %Hba1C Vfw339 Gluc Ave 217 mg/dL 02/25/2019 Comp Metabolic Ify114 NA 136 mEq/L 02/25/2019 Comp Metabolic Xzt224 K 4.8 mEq/L 02/25/2019 Comp Metabolic Zmy225 CL 95 mEq/L 02/25/2019 Comp Metabolic Vxy132 CO2 36.0 mEq/L 02/25/2019 Comp Metabolic Vpe209 ANION GAP 10 02/25/2019 Comp Metabolic Jse210 GLUCOSE 255 mg/dL 02/25/2019 Comp Metabolic Iwz593 Creat 1.2 mg/dL 02/25/2019 Comp Metabolic Lnf418 eGFR 62 ml/min/1.73m2 02/25/2019 Comp Metabolic Scm188 BUN 29 mg/dL 02/25/2019 Comp Metabolic Vbn012 B/C Ratio 24.0 Ratio 02/25/2019 Comp Metabolic Bsb095 CALCIUM 9.0 mg/dL 02/25/2019 Comp Metabolic Usl298 ALK PHOS 102 U/L 02/25/2019 Comp Metabolic Nvv017 AST(SGOT) 12 U/L 02/25/2019 Comp Metabolic Loq254 ALT(SGPT) 9 U/L 02/25/2019 Comp Metabolic Feu485 BILI T 0.6 mg/dL 02/25/2019 Comp Metabolic Ana129 ALBUMIN 3.8 g/dL 02/25/2019 Comp Metabolic Jzf233 TPRO 6.6 g/dL 02/25/2019 Comp Metabolic Aph344 GLOB 2.8 g/dL 02/25/2019 Comp Metabolic Gif949 A/G Ratio 1.4 Ratio 02/25/2019 Comp Metabolic Diz443 Osmo 286 mOsmo 02/25/2019 %Hba1C Svw279 % HbA1c 38689- 6 6.4 % 08/30/2018 %Hba1C Roy041 Gluc Ave 137 mg/dL 08/30/2018 Culture Urine [id number] URINE CULTURE SEE NOTES 02/22/2018 Urine Culture [...] 24.5 pg 02/20/2018 Cbc With Differential Ord2 Swain% 8.9 % 02/20/2018 Cbc With Differential Ord2 [...] 0.81 K/ul 02/20/2018 Cbc With Differential Ord2 Swain ABS# 0.7 K/ul 02/20/2018 Cbc With Differential Ord2 Eos ABS# 0.4 K/ul 02/20/2018 Cbc With Differential Ord2 Baso ABS# 0.0 K/ul 02/20/2018 %Hba1C Mli007 % HbA1c 07988- 6 7.7 % 02/20/2018 %Hba1C Gaw146 Gluc Ave 174 mg/dL 02/20/2018 Lipase Fbc845 LIPASE 17 U/L 02/20/2018 Microalbumin Ewo843 MicroAlb 6.5 mg/dL 02/20/2018 Amylase Ord34 AMYLASE 15 U/L 02/20/2018 Free T4 Jnh472 FREE T4 0.61 ng/dL 02/20/2018 Lipid Ord30 CHOL 203 mg/dL 02/20/2018 Lipid Ord30 HDL 7.0 mg/dl 02/20/2018 Lipid Ord30 TRIG 271 mg/dL 02/20/2018 Lipid Ord30 LDL 142 mg/dL 02/20/2018 Lipid Ord30 C/HDL 29.0 Ratio 02/20/2018 Comp Metabolic Vxl314 NA 134 mEq/L 02/20/2018 Comp Metabolic Zff332 K 3.6 mEq/L 02/20/2018 Comp Metabolic Idk055 CL 96 mEq/L 02/20/2018 Comp Metabolic Vvv873 CO2 29.0 mEq/L 02/20/2018 Comp Metabolic Kpc467 ANION GAP 13 02/20/2018 Comp Metabolic Xno322 GLUCOSE 165 mg/dL 02/20/2018 Comp Metabolic Ksq800 Creat 1.2 mg/dL 02/20/2018 Comp Metabolic Fwr304 eGFR 63 ml/min/1.73m2 02/20/2018 Comp Metabolic Pty716 BUN 14 mg/dL 02/20/2018 Comp Metabolic Vpu985 B/C Ratio 11.6 Ratio 02/20/2018 Comp Metabolic Jtn268 CALCIUM 8.5 mg/dL 02/20/2018 Comp Metabolic Xxt406 ALK PHOS 633 U/L 02/20/2018 Comp Metabolic Bdo371 AST(SGOT) 112 U/L 02/20/2018 Comp Metabolic Iyc290 ALT(SGPT) 148 U/L 02/20/2018 Comp Metabolic Puv365 BILI T 6.8 mg/dL 02/20/2018 Comp Metabolic Uht794 ALBUMIN 3.3 g/dL 02/20/2018 Comp Metabolic Ofz749 TPRO 5.9 g/dL 02/20/2018 Comp Metabolic Azf111 GLOB 2.6 g/dL 02/20/2018 Comp Metabolic Cms491 A/G Ratio 1.3 Ratio 02/20/2018 Comp Metabolic Asl587 Osmo 272 mOsmo 02/20/2018 Total Psa Ord10 [...] Metabolic Ord15 CALCIUM 9.2 mg/dL 11/09/2017 %Hba1C Qkc633 % HbA1c 33043- 6 8.0 % 11/09/2017 %Hba1C Gtn887 Gluc Ave 183 mg/dL 11/09/2017 Metabolic Ord15 [...] Ord15 CALCIUM 8.7 mg/dL 06/25/2017 Culture Wound [id number] WOUND CULTURE SEE NOTES 04/09/2017 Culture Wound [id number] Continued Results 04/09/2017 Amylase Ord34 AMYLASE 19 [...] 27.9 pg 03/22/2017 Cbc With Differential Ord2 Swain% 8.3 % 03/22/2017 Cbc With Differential Ord2 [...] 1.35 K/ul 03/22/2017 Cbc With Differential Ord2 Swain ABS# 1.4 K/ul 03/22/2017 Cbc With Differential Ord2 Eos ABS# 0.2 K/ul 03/22/2017 Cbc With Differential Ord2 Baso ABS# 0.0 K/ul 03/22/2017 Comp Metabolic Azp178 NA 134 mEq/L 03/22/2017 Comp Metabolic Qde478 K 4.5 mEq/L 03/22/2017 Comp Metabolic Lfp513 CL 93 mEq/L 03/22/2017 Comp Metabolic Bdj720 CO2 31.0 mEq/L 03/22/2017 Comp Metabolic Xky172 ANION GAP 15 03/22/2017 Comp Metabolic Pyw738 GLUCOSE 198 mg/dL 03/22/2017 Comp Metabolic Uus918 Creat 1.5 mg/dL 03/22/2017 Comp Metabolic Jws462 eGFR 50 ml/min/1.73m2 03/22/2017 Comp Metabolic Rvs605 BUN 32 mg/dL 03/22/2017 Comp Metabolic Ekf795 B/C Ratio 21.6 Ratio 03/22/2017 Comp Metabolic Mmr284 CALCIUM 8.4 mg/dL 03/22/2017 Comp Metabolic Xkd218 ALK PHOS 245 U/L 03/22/2017 Comp Metabolic Aft378 AST(SGOT) 18 U/L 03/22/2017 Comp Metabolic Hef843 ALT(SGPT) 17 U/L 03/22/2017 Comp Metabolic Rri501 BILI T 0.8 mg/dL 03/22/2017 Comp Metabolic Ldc847 ALBUMIN 2.9 g/dL 03/22/2017 Comp Metabolic Wse857 TPRO 6.3 g/dL 03/22/2017 Comp Metabolic Xen314 GLOB 3.4 g/dL 03/22/2017 Comp Metabolic Tlm274 A/G Ratio 0.8 Ratio 03/22/2017 Comp Metabolic Xku491 Osmo 281 mOsmo 03/22/2017 Lipase Cqz980 LIPASE 12 U/L 03/22/2017 Comp Metabolic Rjx110 NA 142 mEq/L 03/09/2017 Comp Metabolic Wpn285 K 4.8 mEq/L 03/09/2017 Comp Metabolic Eak008 CL 103 mEq/L 03/09/2017 Comp Metabolic Pwr173 CO2 30.0 mEq/L 03/09/2017 Comp Metabolic Yav802 ANION GAP 14 03/09/2017 Comp Metabolic Eok376 GLUCOSE 152 mg/dL 03/09/2017 Comp Metabolic Ihk051 Creat 1.3 mg/dL 03/09/2017 Comp Metabolic Gvu062 eGFR 56 ml/min/1.73m2 03/09/2017 Comp Metabolic Qiv573 BUN 23 mg/dL 03/09/2017 Comp Metabolic Sij531 B/C Ratio 17.3 Ratio 03/09/2017 Comp Metabolic Hkl867 CALCIUM 8.5 mg/dL 03/09/2017 Comp Metabolic Zlz883 ALK PHOS 97 U/L 03/09/2017 Comp Metabolic Dlh218 AST(SGOT) 10 U/L 03/09/2017 Comp Metabolic Loe981 ALT(SGPT) 6 U/L 03/09/2017 Comp Metabolic Rra996 BILI T 0.4 mg/dL 03/09/2017 Comp Metabolic Bes697 ALBUMIN 3.4 g/dL 03/09/2017 Comp Metabolic Asr330 TPRO 6.2 g/dL 03/09/2017 Comp Metabolic Iuh227 GLOB 2.8 g/dL 03/09/2017 Comp Metabolic Yog280 A/G Ratio 1.2 Ratio 03/09/2017 Comp Metabolic Rcj831 Osmo 290 mOsmo 03/09/2017 Free T4 Pdr934 FREE T4 0.86 ng/dL 03/08/2017 Cbc With [...] 28.2 pg 03/08/2017 Cbc With Differential Ord2 Swain% 8.7 % 03/08/2017 Cbc With Differential Ord2 [...] 1.63 K/ul 03/08/2017 Cbc With Differential Ord2 Swain ABS# 0.9 K/ul 03/08/2017 Cbc With Differential Ord2 Eos ABS# 0.5 K/ul 03/08/2017 Cbc With Differential Ord2 Baso ABS# 0.0 K/ul 03/08/2017 Tsh Ord6 hTSH II 4.52 uIU/mL 03/08/2017 %Hba1C Oxo194 % HbA1c 64651- 6 8.5 % 03/08/2017 %Hba1C Vea799 Gluc Ave 197 mg/dL 03/08/2017 %Hba1C Hdq708 % HbA1c 56083- 6 9.8 % 12/04/2016 %Hba1C Xcd367 Gluc Ave 235 mg/dL 12/04/2016 Tsh Ord6 hTSH II 10.65 uIU/mL 11/30/2016 Comp Metabolic Uhk087 NA 134 mEq/L 11/30/2016 Comp Metabolic Bwm205 K 5.0 mEq/L 11/30/2016 Comp Metabolic Qjp742 CL 95 mEq/L 11/30/2016 Comp Metabolic [address]211 CO2 34.0 mEq/L 11/30/2016 Comp Metabolic Lsu126 ANION GAP 10 11/30/2016 Comp Metabolic Olz564 GLUCOSE 226 mg/dL 11/30/2016 Comp Metabolic Bvc891 Creat 1.3 mg/dL 11/30/2016 Comp Metabolic Dow043 eGFR 56 ml/min/1.73m2 11/30/2016 Comp Metabolic Muz478 BUN 21 mg/dL 11/30/2016 Comp Metabolic Lvg607 B/C Ratio 15.7 Ratio 11/30/2016 Comp Metabolic Lff381 CALCIUM 8.9 mg/dL 11/30/2016 Comp Metabolic Vlc626 ALK PHOS 112 U/L 11/30/2016 Comp Metabolic Opf707 AST(SGOT) 9 U/L 11/30/2016 Comp Metabolic Odt985 ALT(SGPT) 7 U/L 11/30/2016 Comp Metabolic Tff377 BILI T 0.6 mg/dL 11/30/2016 Comp Metabolic Cda231 ALBUMIN 3.6 g/dL 11/30/2016 Comp Metabolic Ykl964 TPRO 6.4 g/dL 11/30/2016 Comp Metabolic Fnh286 GLOB 2.9 g/dL 11/30/2016 Comp Metabolic Dhb012 A/G Ratio 1.2 Ratio 11/30/2016 Comp Metabolic Srz168 Osmo 278 mOsmo 11/30/2016 Lipid Ord30 CHOL [...] 30.6 pg 11/30/2016 Cbc With Differential Ord2 Swain% 7.9 % 11/30/2016 Cbc With Differential Ord2 [...] 1.34 K/ul 11/30/2016 Cbc With Differential Ord2 Swain ABS# 0.8 K/ul 11/30/2016 Cbc With Differential Ord2 Eos ABS# 0.3 K/ul 11/30/2016 Cbc With Differential Ord2 Baso ABS# 0.0 K/ul 11/30/2016 Free T4 Lie781 FREE T4 0.89 ng/dL 11/30/2016 Review of [...] kyphosis 02/25/2019 None Full Exam - General 1995 Musculoskeletal [...] Codes Date URINALYSIS NONAUTO W/O SCOPE CPT-4: 97389 03/12/2019 ADMIN PNEUMOCOCCAL VACCINE SNOMED CT: 42115837 CPT-4: G0009 02/05/2018 Pneumococcal Polysaccharide Vaccine, 23-Valent, Ad CPT-4: 81986 02/05/2018 PPPS, SUBSEQ VISIT CPT- 4: G0439 11/30/2017 URINALYSIS NONAUTO W/O SCOPE CPT-4: 37452 03/22/2017 URINALYSIS NONAUTO W/O SCOPE CPT-4: 69537 03/21/2017 PPPS, SUBSEQ VISIT CPT- 4: G0439 11/30/2016 PNEUMOCOCCAL VACC 13 JAVIER IM Formatting Model/CDA Sections, Assigned to SNOMED CT: 10848297 CPT-4: 17866Ghturkn 11/30/2016 ADMIN PNEUMOCOCCAL VACCINE SNOMED CT: 93958273 CPT-4: G0009 11/30/2016 Vital Signs Date Vital 03/12/2019 Blood Pressure 1: 140/52 Code: 8480-6 Heart Rate 1: 60 bpm Height: 5'10" SpO2: 96% Weight: 02/25/2019 Blood Pressure 1: 110/58 Code: 8480-6 BMI: 38.3 Code: 62204-0 Heart Rate 1: 47 bpm Height: 5'10" SpO2: 97% Weight: 267 lbs 10/18/2018 Blood Pressure 1: 118/70 Code: 8480-6 BMI: 39.0 Code: 90696-5 Heart Rate 1: 86 bpm Height: 5'10" SpO2: 95% Weight: 272 lbs 10/14/2018 Blood Pressure 1: 120/56 Code: 8480-6 Heart Rate 1: 67 bpm Height: 5'10" SpO2: 92% 10/10/2018 Blood Pressure 1: 12670 Code: 8480-6 BMI: 34.7 Code: 67250-0 Heart Rate 1: 80 bpm Height: 5'10" SpO2: 96% Temperature: 37.1 (C) / 98.7 (F) Weight: 242 lbs 10/04/2018 Blood Pressure 1: 120/70 Code: 8480-6 Height: 5'10" SpO2: 96% 08/29/2018 Blood Pressure 1: 104/60 Code: 8480-6 BMI: 34.6 Code: 15893-7 Heart Rate 1: 68 bpm Height: 5'10" SpO2: 98% Weight: 241 lbs 02/25/2018 Blood Pressure 1: 120/70 Code: 8480-6 BMI: 37.0 Code: 29147-6 Heart Rate 1: 51 bpm Height: 5'10" SpO2: 97% Weight: 258 lbs 02/20/2018 Blood Pressure 1: 124/70 Code: 8480-6 BMI: 38.0 Code: 76064-6 Heart Rate 1: 60 bpm Height: 5'10" SpO2: 96% Weight: 265 lbs 02/05/2018 Blood Pressure 1: 116/66 Code: 8480-6 BMI: 38.0 Code: 40074-8 Heart Rate 1: 63 bpm Height: 5'10" SpO2: 98% Weight: 265 lbs 11/30/2017 Blood Pressure 1: 132/60 Code: 8480-6 BMI: 37.0 Code: 54172-5 Heart Rate 1: 100 bpm Height: 5'10" SpO2: 96% Waist Measure (cm): 122 cm Weight: 258 lbs 11/08/2017 Blood Pressure 1: 126/64 Code: 8480-6 BMI: 37.2 Code: 21275-6 Heart Rate 1: 92 bpm Height: 5'10" SpO2: 94% Weight: 259 lbs 09/20/2017 Blood Pressure 1: 122/68 Code: 8480-6 BMI: 36.9 Code: 64048-2 Heart Rate 1: 57 bpm Height: 5'10" SpO2: 96% Weight: 257 lbs 06/25/2017 Blood Pressure 1: 124 Code: 8480-6 BMI: 37.0 Code: 70646-5 Height: 5'10" Weight: 258 lbs 06/07/2017 Blood Pressure 1: 122/64 Code: 8480-6 BMI: 37.0 Code: 20312-7 Heart Rate 1: 60 bpm Height: 5'10" SpO2: 94% Temperature: 36.4 (C) / 97.6 (F) Weight: 258 lbs 05/03/2017 Blood Pressure 1: 118/74 Code: 8480-6 BMI: 38.2 Code: 12373-8 Heart Rate 1: 52 bpm Height: 5'10" SpO2: 98% Weight: 266 lbs 04/02/2017 Blood Pressure 1: 118/62 Code: 8480-6 BMI: 38.2 Code: 16061-8 Heart Rate 1: 53 bpm Height: 5'10" SpO2: 93% Weight: 266 lbs 03/26/2017 Blood Pressure 1: 114/62 Code: 8480-6 BMI: 38.3 Code: 69058-6 Height: 5'10" Weight: 267 lbs 03/22/2017 Blood Pressure 1: 122/64 Code: 8480-6 BMI: 40.0 Code: 40956-0 Heart Rate 1: 52 bpm Height: 5'10" SpO2: 94% Weight: 279 lbs 03/08/2017 Blood Pressure 1: 124/ Code: 8480-6 BMI: 39.4 Code: 02852-0 Heart Rate 1: 51 bpm Height: 5'10" SpO2: 94% Weight: 274 lbs 8 oz 12/06/2016 Blood Pressure 1: 126/62 Code: 8480-6 BMI: 40.3 Code: 90116-0 Heart Rate 1: 50 bpm Height: 5'10" SpO2: 94% Weight: 281 lbs 11/30/2016 Blood Pressure 1: 112/62 Code: 8480-6 BMI: 40.3 Code: 84775-8 Heart Rate 1: 52 bpm Height: 5'10" SpO2: 93% Waist Measure (cm): 135 cm Weight: 281 lbs 11/28/2016 Blood Pressure 1: 132/72 Code: 8480-6 BMI: 40.3 Code: 19063-4 Heart Rate 1: 50 bpm Height: 5'10" Weight: 281 lbs 05/04/2016 Blood Pressure 1: 128/78 Code: 8480-6 BMI: 38.5 Code: 68337-3 Heart Rate 1: 74 bpm Height: 5'10" SpO2: 98% Weight: 268 lbs 8 oz 11/04/2015 Blood Pressure 1: 136/60 Code: 8480-6 BMI: 38.0 Code: 70021-1 Heart Rate 1: 55 bpm Height: 5'10" SpO2: 94% Weight: 265 lbs 07/30/2015 Blood Pressure 1: 128/74 Code: 8480-6 BMI: 38.0 Code: 74394-5 Heart Rate 1: 47 bpm Height: 5'10" SpO2: 97% Weight: 265 lbs 01/26/2015 Blood Pressure 1: 122/64 Code: 8480-6 BMI: 34.0 Code: 09446-1 Heart Rate 1: 68 bpm Height: 5'10" [...] data Encounters Encounter Performer Location Codes Date 71268 EST. PATIENT, LEVEL III Diagnosis: Dysuria[ICD10: R30.0] Diagnosis: Type 2 diabetes mellitus with hyperglycemia[ICD10: E11.65] [facility] CPT-4: 24192 03/12/2019 ([id number]) 80869 EST. PATIENT, LEVEL IV Diagnosis: Essential (primary) hypertension[ICD10: I10] Diagnosis: Type 2 diabetes mellitus with hyperglycemia[ICD10: E11.65] Diagnosis: Chronic pain syndrome[ICD10: G89.4] Diagnosis: Chronic kidney disease, stage 3 (moderate)[ICD10: N18.3] Sarah Sanchez MD, [facility] CPT-4: 13004 02/25/2019 73909 EST. PATIENT, LEVEL III Diagnosis: Localized edema[ICD10: R60.0] Diagnosis: Cellulitis of left lower limb[ICD10: L03.116] Diagnosis: Cellulitis of right lower limb[ICD10: L03.115] Kiki Sanchez MD, [facility] CPT-4: 20905 10/18/2018 11746 EST. PATIENT, LEVEL III Diagnosis: Localized edema[ICD10: R60.0] Diagnosis: Cellulitis of left lower limb[ICD10: L03.116] Diagnosis: Cellulitis of right lower limb[ICD10: L03.115] Diagnosis: Chronic obstructive pulmonary disease, unspecified[ICD10: J44.9] Diagnosis: Weakness[ICD10: R53.1] Kiki Sanchez MD, [facility] CPT-4: 87412 10/14/2018 54832 EST. PATIENT, LEVEL III Diagnosis: Localized edema[ICD10: R60.0] Diagnosis: Cellulitis of left lower limb[ICD10: L03.116] Diagnosis: Cellulitis of right lower limb[ICD10: L03.115] Kiki Sanchez MD, [facility] CPT-4: 50432 10/10/2018 ([id number]) 16551 EST. PATIENT, LEVEL IV Diagnosis: Type 2 diabetes mellitus with foot ulcer[ICD10: E11.621] Diagnosis: Essential (primary) hypertension[ICD10: I10] Diagnosis: Malignant neoplasm of prostate[ICD10: C61] Diagnosis: Chronic obstructive pulmonary disease, unspecified[ICD10: J44.9] Diagnosis: Hypoxemia[ICD10: R09.02] Sarah Sanchez MD, [facility] CPT-4: 74134 10/04/2018 ([id number]) 13066 EST. PATIENT, LEVEL IV Diagnosis: Type 2 diabetes mellitus with hyperglycemia[ICD10: E11.65] Diagnosis: Essential (primary) hypertension[ICD10: I10] Diagnosis: Malignant neoplasm of prostate[ICD10: C61] Sarah Sanchez MD, [facility] CPT-4: 97698 08/29/2018 ([id number]) 94797 EST. PATIENT, LEVEL IV Diagnosis: Malignant neoplasm of prostate[ICD10: C61] Dorene Sanchez MD, [facility] CPT-4: 02792 02/25/2018 12771 EST. PATIENT, LEVEL IV Diagnosis: Generalized abdominal pain[ICD10: R10.84] Diagnosis: Unspecified jaundice[ICD10: R17] Diagnosis: Gross hematuria[ICD10: R31.0] Kiik Sanchez MD, [facility] CPT-4: 53542 02/20/2018 ([id number]) 19384 EST. PATIENT, LEVEL IV Diagnosis: Type 2 diabetes mellitus with hyperglycemia[ICD10: E11.65] Diagnosis: Essential (primary) hypertension[ICD10: I10] Diagnosis: Chronic kidney disease, stage 3 (moderate)[ICD10: N18.3] Diagnosis: Chronic pain syndrome[ICD10: G89.4] Diagnosis: Other specified hypothyroidism[ICD10: E03.8] Diagnosis: Encounter for screening for malignant neoplasm of prostate[ICD10: Z12.5] Diagnosis: Encounter for immunization[ICD10: Z23] Sarah Sanchez MD, [facility] CPT-4: 49391 02/05/2018 ([id number]) 09142 EST. PATIENT, LEVEL IV Diagnosis: Type 2 diabetes mellitus with hyperglycemia[ICD10: E11.65] Diagnosis: Essential (primary) hypertension[ICD10: I10] Dorene Sanchez MD, [facility] CPT-4: 08796 11/08/2017 ([id number]) 66625 EST. PATIENT, LEVEL IV Diagnosis: Type 2 diabetes mellitus with hyperglycemia[ICD10: E11.65] Diagnosis: Chronic pain syndrome[ICD10: G89.4] Diagnosis: Essential (primary) hypertension[ICD10: I10] Diagnosis: Chronic kidney disease, stage 3 (moderate)[ICD10: N18.3] Diagnosis: Localized edema[ICD10: R60.0] Dorene Sanchez MD, [facility] CPT-4: 06610 09/20/2017 ([id number]) 06537 EST. PATIENT, LEVEL III Diagnosis: Type 2 diabetes mellitus with hyperglycemia[ICD10: E11.65] Sarah Sanchez MD, [facility] CPT-4: 57774 06/25/2017 ([id number]) 98520 EST. PATIENT, LEVEL III Diagnosis: Cellulitis of left lower limb[ICD10: L03.116] Sarah Sanchez MD, [facility] CPT-4: 45923 06/07/2017 ([id number]) 97945 EST. PATIENT, LEVEL III Diagnosis: Localized edema[ICD10: R60.0] Diagnosis: Type 2 diabetes mellitus with foot ulcer[ICD10: E11.621] Sarah Sanchez MD, [facility] CPT-4: 15423 05/03/2017 ([id number]) 61994 EST. PATIENT, LEVEL III Diagnosis: Cellulitis of left lower limb[ICD10: L03.116] Diagnosis: Localized edema[ICD10: R60.0] Sarah Sanchez MD, [facility] CPT-4: 53527 04/02/2017 ([id number]) Miscellaneous no charge Diagnosis: Localized edema[ICD10: R60.0] Diagnosis: Cellulitis of left lower limb[ICD10: L03.116] Sarah Sanchez MD, [facility] CPT-4: 71020 03/26/2017 ([id number]) 01351 EST. 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 PATIENT, LEVEL IV Diagnosis: Type 2 diabetes mellitus with hyperglycemia[ICD10: E11.65] Diagnosis: Other specified hypothyroidism[ICD10: E03.8] Diagnosis: Essential (primary) hypertension[ICD10: I10] Sarah Sanchez MD, [facility] CPT-4: 65092 03/08/2017 ([id number]) 53001 EST. PATIENT, LEVEL III Diagnosis: Type 2 diabetes mellitus with hyperglycemia[ICD10: E11.65] Diagnosis: Other specified hypothyroidism[ICD10: E03.8] Sarah Sanchez MD, [facility] CPT-4: 73233 12/06/2016 92710 39945 EST. PATIENT, LEVEL IV Diagnosis: Essential (primary) hypertension[ICD10: I10] Diagnosis: Chronic kidney disease, stage 3 (moderate)[ICD10: N18.3] Dorene Sanchez MD, [facility] CPT-4: 91233 11/28/2016 ([id number]) 69870 EST. PATIENT, LEVEL IV Diagnosis: Essential (primary) hypertension[ICD10: I10] Diagnosis: Chronic pain syndrome[ICD10: G89.4] Diagnosis: Chronic kidney disease, stage 3 (moderate)[ICD10: N18.3] Diagnosis: Vitamin B12 deficiency anemia due to intrinsic factor deficiency[ICD10: D51.0] Diagnosis: Other specified hypothyroidism[ICD10: E03.8] Dorene Sanchez MD, [facility] CPT-4: 35079 05/04/2016 70776 EST. PATIENT, LEVEL III Diagnosis: Chronic pain syndrome[ICD10: G89.4] Diagnosis: Essential (primary) hypertension[ICD10: I10] Diagnosis: Other specified hypothyroidism[ICD10: E03.8] [facility] CPT-4: 69704 11/04/2015 61613 EST. PATIENT, LEVEL III Diagnosis: Chronic pain syndrome[ICD10: G89.4] Diagnosis: Essential (primary) hypertension[ICD10: I10] [facility] CPT-4: 74591 07/30/2015 ([id number]) OFFICE/OUTPATIENT VISIT NEW Diagnosis: ESSENTIAL HYPERTENSION[ICD9: 401.9] Diagnosis: HYPOTHYROIDISM[ICD9: 244.9] Diagnosis: ANEMIA[ICD9: 285.9] Diagnosis: Vitamin B12 deficiency[ICD9: 266.2] Diagnosis: CHRONIC PAIN SYNDROME[ICD9: 338.4] Diagnosis: Chronic renal insufficiency, stage III (moderate)[ICD9: 585.3] Diagnosis: GOUT[ICD9: 274.9] Dorene Sanchez MD, [facility] CPT-4: 45815 01/26/2015 Plan of Care Planned Activity Notes [...] for greater blood glucose control. 03/12/2019 Appointment[phone] [facility] [place] (15 min) Moderate 03/12/2019 Appointment: [...] of over-medication. 02/25/2019 Appointment: [facility] [phone] [phone] [place] (15 min) Moderate 02/25/2019 Patient [...] symptoms, worsening redness, warmth, discharge. 10/18/2018 Appointment: Otto Kiki WPtel: [address] [place], [place] [address] (30 min) [facility] 10/18/2018 Patient Education: Patient Medication Summary Completed [...] decrease edema. 10/14/2018 Appointment: Kiki Menjivar WPtel: [phone] [facility] [...] discharge. 10/10/2018 Appointment: Kiki Menjivar WPtel: [phone] [facility] (30 min) Complex 10/10/2018 Patient Education: Patient Medication Summary Completed 10/10/2018 Visit Plan: DM with peripheral neuropathy-paperwork completed for diabetic shoes and will fax to Dr Bauer HTN-controlled -no changes Bdrpyqjul-DXVO-WUP-prostate cancer with mets- patient qualifies for oxygen-oxy gen saturation dropped to 86% on room air during ambulation but increased to 99% on 2L NC at rest-will send orders to [facility] for continue oxygen at 2L per nasal cannula 10/04/2018 Appointment: Sarah Hernandes WPtel: [phone] [phone] [...] Dr Moreno 08/29/2018 Appointment: Sarah Hernandes WPtel: [phone] (15 min) Moderate 08/29/2018 Patient Education: Patient Medication Summary Completed 08/29/2018 Referral: Edgard Rivera MD WPtel: Via [address] with Dr. Moreno. Patient informed. Referral info faxed. Completed 02/27/2018 Visit Plan: Recurrent prostate cancer - I have recommended a referral to Dr. Rivera. We discussed the case at length today- he is not interested in extensive treatment, but if possible to extend his quantity and quality of life, he would like to try. 02/25/2018 Appointment: Dorene Sanchez WPtel: [facility] (15 min) Moderate 02/25/2018 Patient Education: Patient Medication Summary Completed 02/25/2018 Care Plan: Referral Order SNOMED-CT : [id number] Pending 02/25/2018 Visit Plan: Intermittent abdominal pain, jaundice, itching - will check labs and treat as indicated - pt is to go to the ER with any acute change in symptoms or any acute concerns. 02/20/2018 Appointment: Kiki Menjivar WPtel: [facility] (30 min) Complex 02/20/2018 Patient Education: [...] surrogate. 11/30/2017 Appointment: [facility]el[facility] [phone] [phone] [facility] - Annual Wellness Visit 11/30/2017 [...] 1.2 11/08/2017 Appointment: Dorene Sanchez WPtel: [phone] [facility] (15 min) Moderate 11/08/2017 Patient Education: [...] of over-medication. 09/20/2017 Appointment: Dorene Sanchez WPtel: [phone] (15 min) Moderate 09/20/2017 Patient Education: Patient [...] glucose control. 06/25/2017 Appointment: Sarah Hernandes WPtel: [phone] (30 min) Complex 06/25/2017 Patient Education: Patient Medication Summary Completed 06/25/2017 Appointment: Sarah Hernandes WPtel: [phone] (30 min) Complex 06/22/2017 Visit Plan: Cellulitis - start oral antibiotics as previously directed, return to clinic as previously directed, call for acute change in symptoms, worsening redness, warmth, discharge. 06/07/2017 Appointment: Sarah Hernandes WPtel: [phone] (30 min) Complex 06/07/2017 Patient Education: Patient Medication Summary Completed 06/07/2017 Patient Education: Obesity Completed 06/07/2017 Appointment: Dorene Sanchez WPtel: [phone] [facility] (15 min) Moderate 05/31/2017 Visit Plan: Edema-significantly improved-no changes Ulcer-left lower leg and foot-seeing Dr Norwood at wound care-appt scheduled with Dr Frausto for vascular evaluation 05/03/2017 Appointment: Sarah Hernandes WPtel: [phone] [phone] (15 min) Moderate 05/03/2017 Patient Education: Patient Medication Summary Completed 05/03/2017 Patient Education: Obesity Completed 05/03/2017 Visit Plan: Aadkaaaron-ejgvmicws-hpgxwke to finish abx-no further treatment indicated Edema-significantly improved-no longer weeping-continue unna boots twice weekly with home health 04/02/2017 Appointment: Cecilio Sarah WPtel: [phone] [phone] (30 min) Complex 04/02/2017 Patient Education: Patient Medication Summary Completed 04/02/2017 Patient Education: Obesity Completed 04/02/2017 Visit Plan: Cellulitis-left leg-continue levaquin Edema-increase lasix/potassium-consult [facility] for unna boots/dressing changes 03/26/2017 Appointment: [facility]el[facility] [phone] [phone] [place] (15 min) Moderate 03/26/2017 Patient [...] indomethacin-stop aleve 03/22/2017 Appointment: Sarah Hernandes WPtel: [address] [place], [place] [phone] (15 min) Moderate 03/22/2017 Patient Education: Patient [...] of control. 03/08/2017 Appointment: Sarah Hernandes WPtel: [phone] (30 min) Complex 03/08/2017 Patient Education: [...] care surrogate. 11/30/2016 Appointment: Sarah Hernandes WPtel: [address] [place] [phone] [facility] - Annual Wellness Visit 11/30/2016 [...] in fluids. 11/28/2016 Appointment: Laura Dorene WPtel: [facility] (15 min) Moderate 11/28/2016 Patient Education: Patient [...] 01/26/2015 Referral: Edgard Rivera MD WPtel: [address] [place] Referral Appointment Requested Instructions Comment [...] of life, he would like to try. WRAP LEGS-THIGHS TO TOES LEVAQUIN 500MG DAILY [...] YEAR SHINGLES VACCINATION TO BE ADMINISTERED AT [facility] RECOMMEND OBTAINING MEDICAL POWER OF TOP PRECIPITATOR OPERATOR HELPER AND LIVING WILL PATIENT DOES NOT HAVE [...] discuss further treatment options with Dr Moreno Will send Dr. Bauer note for surgical [...] with Dr Frausto for vascular evaluation . Yvufdhqlok-muaozjdat-xffasye to finish abx-no further treatment indicated Edema-significantly improved-no longer weeping-continue unna boots twice weekly with home health take lasix 2 in the morning and [...] YEAR SHINGLES VACCINATION TO BE ADMINISTERED AT [facility] RECOMMEND OBTAINING MEDICAL POWER OF TOP PRECIPITATOR OPERATOR HELPER AND LIVING WILL PATIENT DOES NOT HAVE [...] YEAR SHINGLES VACCINATION TO BE ADMINISTERED AT [facility] RECOMMEND OBTAINING MEDICAL POWER OF TOP PRECIPITATOR OPERATOR HELPER AND LIVING WILL PATIENT DOES NOT HAVE [...] AND POTASSIUM TO TWICE DAILY [place] [facility] . Cellulitis-left leg-continue levaquin Edema-increase lasix/potassium-consult [facility] for unna boots/dressing changes REPEAT HGB A1C, [...] her DOPA paperwork for health care surrogate. RETURN LATER THIS WEEK FOR FASTING LABS [...] with supportive care and medication monitoring. . Intermittent abdominal pain, jaundice, itching - will check labs and treat as indicated - pt is to go to the ER with any acute change in symptoms or any acute concerns. . DM with peripheral neuropathy-paperwork completed for diabetic shoes and will fax to Dr Bauer HTN-controlled -no changes Idiwpsjiu-WXTT-PJP-prostate cancer with mets- patient qualifies for oxygen- oxygen saturation dropped to 86% on room air during ambulation but increased to 99% on 2L NC at rest-will send orders to [facility] for continue oxygen at 2L per nasal cannula . Hypertension - well controlled - continue [...]
--- OUTSIDE RECORDS SUMMARY | 2019-03-24 07:58 | XMS REPORT | CCD ---
Author Author Dorene Sanchez Organization [facility] Address [address] [place] [address] Phone Care Team Providers Care Instructor Of Sociology Name Role Phone PP Unavailable CCM Unavailable Summary Purpose Interface Exchange Insurance Providers Payer name Policy type / Coverage type Covered republican ID Effective Begin Date Effective End Date WPS Medicare Part B Medicare Part B [id number] Unknown Unknown Family history Father Diagnosis Age At Onset Stroke Unknown Mother Diagnosis Age At Onset Stroke Unknown Diabetes mellitus Type 2 Unknown Social History Social History Element Codes Description Effective Dates Tobacco history SNOMED CT: 662018484 Currently uses smokeless tobacco Chews 05/04/2016 Marital status Unknown 01/26/2015 Number of children Unknown 3 01/26/2015 Employment Unknown Retired 01/26/[address]: 852317990 Never drinks alcohol quit in July 2014 01/26/2015 Allergies, Adverse Reactions, Alerts Substance Reaction Codes Entered Date Inactivated Date Status * NO KNOWN FOOD ALLERGIES Unknown 01/26/2015 No Inactive Date Active * NO KNOWN DRUG ALLERGIES Unknown 01/26/2015 No Inactive Date Active Past Medical History Illness Codes Condition Status Onset Date Resolved Date Dysuria ICD-9: 788.1 ICD-10: R30.0 Active 03/21/2017 Unknown Chronic kidney disease, stage 3 (moderate) ICD-9: 585.3 ICD-10: N18.3 Active 01/25/2015 Unknown Chronic pain syndrome ICD- 9: 338.4 ICD-10: G89.4 Active 01/25/2015 Unknown Essential (primary) hypertension ICD-9: 401.1 ICD-10: I10 Active 11/08/2017 Unknown Type 2 diabetes mellitus with hyperglycemia ICD-9: 250.00 ICD-10: E11.65 Active 12/06/2016 Unknown Cellulitis of left lower limb ICD-9: [...] Dysuria ICD-9: 788.1 ICD-10: R30.0 03/21/2017 Active Chronic kidney disease, stage 3 (moderate) ICD-9: 585.3 ICD-10: N18.3 01/25/2015 Active Chronic pain syndrome ICD- 9: 338.4 ICD-10: G89.4 01/25/2015 Active Essential (primary) hypertension ICD-9: 401.1 ICD-10: I10 11/08/2017 Active Type 2 diabetes mellitus with hyperglycemia ICD-9: 250.00 ICD-10: E11.65 12/06/2016 Active Cellulitis of left lower limb ICD-9: [...] Fill Instructions levothyroxine 200 mcg tablet RxNorm: 109033 TAKE ONE TABLET BY MOUTH DAILY ON AN EMPTY STOMACH 03/13/2019 12/07/2019 Active bisoprolol 5 mg-hydrochlorothiazide 6.25 mg tablet RxNorm: 042678 TAKE ONE TABLET BY MOUTH DAILY 03/13/2019 12/07/2019 Active Keflex 500 mg capsule RxNorm: 843039 1 Capsule(s) PO TID 03/12/2019 03/21/2019 Active potassium chloride ER 10 mEq tablet,extended release RxNorm: 888321 TAKE ONE TABLET BY MOUTH DAILY 03/10/2019 09/05/2019 Active oxycodone 10 mg tablet RxNorm: 3139153 1 Tablet(s) PO Q4 PRN 02/25/2019 No Stop Date Active oxycodone 20 mg tablet RxNorm: 7601373 1/2 Tablet(s) PO Q6 as needed 01/21/2019 02/24/2019 Inactive oxycodone 20 mg tablet RxNorm: 8080790 1/2 Tablet(s) PO Q6 as needed 12/18/2018 01/16/2019 Inactive oxycodone 20 mg tablet RxNorm: 1737431 1/2 Tablet(s) PO Q6 as needed 11/12/2018 12/11/2018 Inactive gabapentin 100 mg capsule RxNorm: 775250 1 Capsule(s) BID 11/05/2018 05/03/2019 Active potassium chloride ER 10 mEq tablet,extended release RxNorm: 765851 TAKE ONE TABLET BY MOUTH DAILY 11/04/2018 11/19/2018 Inactive Probiotic 10 billion cell capsule RxNorm: 2843982 1 Capsule(s) PO BID 10/25/2018 10/24/2018 Inactive Keflex 500 mg capsule RxNorm: 599478 1 Capsule(s) PO QID 10/25/2018 10/31/2018 Inactive Probiotic 10 billion cell capsule RxNorm: 3548209 1 Capsule(s) PO BID 10/25/2018 10/31/2018 Inactive oxycodone 20 mg tablet RxNorm: 8216623 1/2 Tablet(s) PO Q6 as needed 10/14/2018 11/11/2018 Inactive Lasix 20 mg tablet RxNorm: 952100 1 Tablet(s) PO BID 10/10/2018 04/07/2019 Active Keflex 500 mg capsule RxNorm: 300312 1 Capsule(s) PO TID 10/10/2018 10/19/2018 Inactive potassium chloride ER 10 mEq tablet,extended release RxNorm: 924941 1 Tablet(s) PO daily 10/10/2018 11/03/2018 Inactive albuterol sulfate 2.5 mg/3 mL (0.083 %) solution for nebulization RxNorm: 353750 1 Milliliter(s) INH TID DX J44.9 10/04/2018 01/31/2019 Inactive gabapentin 100 mg capsule RxNorm: 764991 TAKE ONE CAPSULE BY MOUTH IN THE EVENING AT 5PM 09/24/2018 11/04/2018 Inactive oxycodone 20 mg tablet RxNorm: 3117345 1/2 Tablet(s) PO Q6 as needed 09/12/2018 10/11/2018 Inactive oxycodone 20 mg tablet RxNorm: 3968377 1/2 Tablet(s) PO Q6 as needed 08/15/2018 09/11/2018 Inactive oxycodone 20 mg tablet RxNorm: 4374516 1/2 Tablet(s) PO Q6 as needed 07/16/2018 08/14/2018 Inactive oxycodone 20 mg tablet RxNorm: 9615352 1/2 Tablet(s) PO Q6 as needed 06/14/2018 07/13/2018 Inactive gabapentin 100 mg capsule RxNorm: 562907 TAKE ONE CAPSULE BY MOUTH IN THE EVENING AT 5PM 05/30/2018 09/23/2018 Inactive oxycodone 20 mg tablet RxNorm: 9041933 1/2 Tablet(s) PO Q6 as needed 05/15/2018 06/13/2018 Inactive oxycodone 20 mg tablet RxNorm: 8618710 1/2 Tablet(s) PO Q6 as needed 04/12/2018 05/11/2018 Inactive oxycodone 20 mg tablet RxNorm: 0312760 1/2 Tablet(s) PO Q6 as needed 03/11/2018 04/09/2018 Inactive Cipro 500 mg tablet RxNorm: 149526 1 Tablet(s) PO BID 02/21/2018 02/20/2018 Inactive levothyroxine 200 mcg tablet RxNorm: 590396 1 Tablet(s) PO daily 02/21/2018 02/20/2018 Inactive Cipro 500 mg tablet RxNorm: 939337 1 Tablet(s) PO BID 02/21/2018 03/02/2018 Inactive levothyroxine 200 mcg tablet RxNorm: 129798 1 Tablet(s) PO daily 02/21/2018 02/15/2019 Inactive oxycodone 20 mg tablet RxNorm: 2564269 1/2 Tablet(s) PO Q6 as needed 02/12/2018 03/10/2018 Inactive oxycodone 20 mg tablet RxNorm: 6090487 1/2 Tablet(s) PO Q6 as needed 01/16/2018 02/11/2018 Inactive gabapentin 100 mg capsule RxNorm: 480906 TAKE ONE CAPSULE BY MOUTH IN THE EVENING AT 5PM 01/15/2018 05/29/2018 Inactive bisoprolol 5 mg-hydrochlorothiazide 6.25 mg tablet RxNorm: 652146 TAKE ONE TABLET BY MOUTH DAILY 01/01/2018 12/26/2018 Inactive oxycodone 20 mg tablet RxNorm: 9810359 1/2 Tablet(s) PO Q6 as needed 12/20/2017 01/14/2018 Inactive oxycodone 20 mg tablet RxNorm: 6619074 1/2 Tablet(s) PO Q6 as needed 11/20/2017 12/19/2017 Inactive Victoza 2-Dino 0.6 mg/0.1 mL (18 mg/3 mL) subcutaneous pen injector RxNorm: 944304 1.2 Milligram(s) SQ daily 11/08/2017 12/07/2017 Inactive oxycodone 20 mg tablet RxNorm: 1012241 1/2 Tablet(s) PO Q6 as needed 10/19/2017 11/17/2017 Inactive gabapentin 100 mg capsule RxNorm: 119349 1 Capsule(s) PO QPM at 5 pm 09/20/2017 01/14/2018 Inactive Lasix 20 mg tablet RxNorm: 670683 1 Tablet(s) QAM at 5pm 09/20/2017 03/18/2018 Inactive oxycodone 20 mg tablet RxNorm: 7694894 1/2 Tablet(s) PO Q6 as needed 09/18/2017 10/17/2017 Inactive oxycodone 20 mg tablet RxNorm: 3839108 1/2 Tablet(s) PO Q6 as needed 08/14/2017 09/12/2017 Inactive ketoconazole 2 % topical cream RxNorm: 598131 1 Gram(s) TOP BID to affected area until healed 08/03/2017 No Stop Date Active oxycodone 20 mg tablet RxNorm: 4131401 1/2 Tablet(s) PO Q6 as needed 07/17/2017 08/13/2017 Inactive pen needle, diabetic 31 gauge x 5/16" RxNorm: 1 Unit Dose Miscellaneous daily 06/25/2017 03/21/2018 Inactive daily use with victoza Bactrim DS 800 mg-160 mg tablet RxNorm: 885100 1 Tablet(s) PO BID Dr Norwood 06/25/2017 07/04/2017 Inactive Victoza 2-Dino 0.6 mg/0.1 mL (18 mg/3 mL) subcutaneous pen injector RxNorm: 412053 0.6 Milligram(s) SQ daily 06/25/2017 07/24/2017 Inactive doxycycline hyclate 100 mg tablet RxNorm: 462389 1 Tablet(s) PO BID Dr Norwood 06/21/2017 06/30/2017 Inactive oxycodone 20 mg tablet RxNorm: 7168133 1/2 Tablet(s) PO Q6 as needed 06/14/2017 07/13/2017 Inactive clindamycin 150 mg capsule RxNorm: 410755 1 Capsule(s) PO Q8 06/07/2017 06/16/2017 Inactive levothyroxine 175 mcg tablet RxNorm: 929185 TAKE ONE TABLET BY MOUTH DAILY 06/04/2017 09/01/2017 Inactive levothyroxine 175 mcg tablet RxNorm: 260707 TAKE ONE TABLET BY MOUTH DAILY 06/04/2017 11/30/2017 Inactive bisoprolol 5 mg-hydrochlorothiazide 6.25 mg tablet RxNorm: 216025 TAKE ONE TABLET BY MOUTH DAILY 05/24/2017 11/19/2017 Inactive oxycodone 20 mg tablet RxNorm: 8425981 1/2 Tablet(s) PO Q6 as needed 05/14/2017 06/12/2017 Inactive potassium chloride ER 10 mEq capsule,extended release RxNorm: 117730 TAKE ONE CAPSULE BY MOUTH DAILY NEEDED FOR 5 DAYS THEN NEEDED WITH LASIX 04/17/2017 10/13/2017 Inactive Lasix 20 mg tablet RxNorm: 464336 TAKE ONE TABLET BY MOUTH DAILY NEEDED 04/17/2017 09/19/2017 Inactive oxycodone 20 mg tablet RxNorm: 2652550 1/2 Tablet(s) PO Q6 as needed 04/12/2017 05/11/2017 Inactive Colcrys 0.6 mg tablet RxNorm: 612028 2 tabs at onset then may repeat 1 tab in 1 hours if needed- Tablet(s) PO 04/09/2017 No Stop Date Active then take daily until gout resolved Bactrim DS 800 mg-160 mg tablet RxNorm: 518165 1 Tablet(s) PO BID 04/09/2017 04/08/2017 Inactive dc levaquin Bactrim DS 800 mg-160 mg tablet RxNorm: 971946 1 Tablet(s) PO BID 04/09/2017 04/15/2017 Inactive dc levaquin Levaquin 500 mg tablet RxNorm: 186812 1 Tablet(s) PO daily 04/03/2017 04/02/2017 Inactive Levaquin 500 mg tablet RxNorm: 514477 1 Tablet(s) PO daily 04/03/2017 06/06/2017 Inactive indomethacin 25 mg capsule RxNorm: 918008 1 Capsule(s) PO TID PRN 03/22/2017 03/22/2017 Inactive Lasix 20 mg tablet RxNorm: 846076 1 Tablet(s) PO QDAY PRN 03/22/2017 04/16/2017 Inactive daily x 5 days then as needed Levaquin 500 mg tablet RxNorm: 519279 1 Tablet(s) PO daily 03/22/2017 03/31/2017 Inactive potassium chloride ER 10 mEq capsule,extended release RxNorm: 658275 1 Capsule(s) PO QDAY PRN 03/22/2017 04/16/2017 Inactive daily x 5 days then as needed with lasix oxycodone 20 mg tablet RxNorm: 7346018 1/2 Tablet(s) PO Q6 as needed 03/08/2017 04/06/2017 Inactive bisoprolol 5 mg-hydrochlorothiazide 6.25 mg tablet RxNorm: 862182 TAKE ONE TABLET BY MOUTH DAILY 02/14/2017 05/14/2017 Inactive oxycodone 20 mg tablet RxNorm: 2969481 1/2 Tablet(s) PO Q6 as needed 02/08/2017 03/07/2017 Inactive oxycodone 20 mg tablet RxNorm: 9147262 1/2 Tablet(s) PO Q6 as needed 01/08/2017 02/06/2017 Inactive levothyroxine 175 mcg tablet RxNorm: 669427 1 Tablet(s) PO daily 12/06/2016 06/03/2017 Inactive [SAVINGS FOR NON-COVERED DRUGS -- BIN:[id number], PCN: ASPROD1, Group: XXXXX, ID# [id number], Questions: . THIS IS NOT INSURANCE.] oxycodone 20 mg tablet RxNorm: 9564367 1/2 Tablet(s) PO Q6 as needed 12/04/2016 01/02/2017 Inactive oxycodone 20 mg tablet RxNorm: 6996537 1/2 Tablet(s) PO Q6 as needed 11/09/2016 12/03/2016 Inactive bisoprolol 5 mg-hydrochlorothiazide 6.25 mg tablet RxNorm: 516800 TAKE ONE TABLET BY MOUTH DAILY 11/08/2016 02/05/2017 Inactive oxycodone 20 mg tablet RxNorm: 0507583 1/2 Tablet(s) PO Q6 as needed 10/05/2016 11/03/2016 Inactive oxycodone 20 mg tablet RxNorm: 4435066 1/2 Tablet(s) PO Q6 as needed 09/06/2016 10/04/2016 Inactive oxycodone 20 mg tablet RxNorm: 1869226 1/2 Tablet(s) PO Q6 as needed 08/07/2016 09/05/2016 Inactive oxycodone 20 mg tablet RxNorm: 5950363 1/2 Tablet(s) PO Q6 as needed 07/04/2016 08/06/2016 Inactive oxycodone 20 mg tablet RxNorm: 9960909 1/2 Tablet(s) PO Q6 as needed 05/29/2016 07/03/2016 Inactive levothyroxine 150 mcg tablet RxNorm: 100648 1 Tablet(s) PO daily 04/10/2016 04/09/2016 Inactive [SAVINGS FOR NON-COVERED DRUGS -- BIN:[id number], PCN: ASPROD1, Group: XXXXX, ID# [id number], Questions: . THIS IS NOT INSURANCE.] oxycodone 20 mg tablet RxNorm: 7641458 1/2 Tablet(s) PO Q6 as needed 04/10/2016 05/28/2016 Inactive levothyroxine 150 mcg tablet RxNorm: 710703 1 Tablet(s) PO daily 04/10/2016 10/06/2016 Inactive [SAVINGS FOR NON-COVERED DRUGS -- BIN:058710, PCN: ASPROD1, Group: XXXXX, ID# [id number], Questions: . THIS IS NOT INSURANCE.] bisoprolol 5 mg-hydrochlorothiazide 6.25 mg tablet RxNorm: 814483 1 Tablet(s) PO daily 02/16/2016 12/31/2017 Inactive oxycodone 20 mg tablet RxNorm: 7595557 1/2 Tablet(s) PO Q6 as needed 02/16/2016 04/09/2016 Inactive oxycodone 20 mg tablet RxNorm: 0531998 1/2 Tablet(s) PO Q6 as needed 01/04/2016 02/15/2016 Inactive bisoprolol 5 mg-hydrochlorothiazide 6.25 mg tablet RxNorm: 588816 1 Tablet(s) PO daily 11/19/2015 01/17/2016 Inactive bisoprolol 5 mg-hydrochlorothiazide 6.25 mg tablet RxNorm: 819987 1 Tablet(s) PO daily 11/04/2015 11/18/2015 Inactive oxycodone 20 mg tablet RxNorm: 1184425 1/2 Tablet(s) PO Q6 as needed 10/27/2015 01/03/2016 Inactive levothyroxine 150 mcg tablet RxNorm: 282279 1 Tablet(s) PO daily 08/26/2015 02/21/2016 Inactive [SAVINGS FOR NON-COVERED DRUGS -- BIN:[id number], PCN: ASPROD1, Group: XXXXX, ID# [id number], Questions: . THIS IS NOT INSURANCE.] bisoprolol 5 mg-hydrochlorothiazide 6.25 mg tablet RxNorm: 583081 1 Tablet(s) PO daily 08/26/2015 10/24/2015 Inactive oxycodone 10 mg tablet RxNorm: 3748362 1 Tablet(s) PO Q6 as needed 05/06/2015 10/26/2015 Inactive levothyroxine 150 mcg tablet RxNorm: 528303 1 Tablet(s) PO daily 02/05/2015 08/03/2015 Inactive [SAVINGS FOR NON-COVERED DRUGS -- BIN:146993, PCN: ASPROD1, Group: XXXXX, ID# [id number], Questions: . THIS IS NOT INSURANCE.] Vitamin D2 50,000 unit capsule RxNorm: 874765 1 Capsule(s) PO weekly 02/05/2015 05/05/2015 Inactive [SAVINGS FOR NON-COVERED DRUGS -- BIN:175051, PCN: ASPROD1, Group: XXXXX, ID# [id number], Questions: . THIS IS NOT INSURANCE.] Vitamin D2 50,000 unit capsule RxNorm: 567054 1 Capsule(s) PO weekly 02/05/2015 02/04/2015 Inactive bisoprolol 5 mg-hydrochlorothiazide 6.25 mg tablet RxNorm: 410532 1 Tablet(s) PO daily 01/26/2015 02/24/2015 Inactive levothyroxine 200 mcg tablet RxNorm: 132594 1 Tablet(s) PO daily 01/26/2015 01/25/2015 Inactive levothyroxine 200 mcg tablet RxNorm: 878991 1 Tablet(s) PO every other day 01/26/2015 02/04/2015 Inactive [SAVINGS FOR NON-COVERED DRUGS -- BIN:804816, PCN: ASPROD1, Group: XXXXX, ID# [id number], Questions: . THIS IS NOT INSURANCE.] aspirin 81 mg chewable tablet RxNorm: 084516 1 Tablet(s) PO daily No Start Date Active Plavix 75 mg tablet RxNorm: 055568 1 Tablet(s) PO daily manage by Dr Baig No Start Date Active simvastatin 40 mg tablet RxNorm: 679674 1 Tablet(s) PO QHS managed by Dr Baig No Start Date Active Colcrys 0.6 mg tablet RxNorm: 795383 2 tabs at onset then may repeat 1 tab in 1 hours if needed- Tablet(s) PO No Start Date 04/08/2017 Inactive then take daily until gout resolved aspirin 325 mg tablet RxNorm: 495246 1 Tablet(s) PO daily No Start Date 05/03/2016 Inactive levothyroxine 75 mcg tablet RxNorm: 360608 1 Tablet(s) PO every other day No Start Date 02/04/2015 Inactive takes qod with 200mcg oxycodone 10 mg tablet RxNorm: 2604765 1 Tablet(s) PO Q6 as needed No Start Date 05/05/2015 Inactive ketoconazole 2 % topical cream RxNorm: 800667 1 Gram(s) TOP BID to affected area until healed No Start Date 08/02/2017 Inactive indomethacin oral RxNorm: 5781 oral No Start Date 03/21/2017 Inactive Medication Administered No Medication Administered data Immunizations Vaccine Codes Date Status Pneumococcal (Adult) CVX: 33 02/05/2018 completed Pneumococcal (Adult) CVX: 133 11/30/2016 completed Assessments Condition Codes Effective Dates Essential (primary) hypertension ICD-10: I10 ICD-9: 401.1 02/25/2019 Type 2 diabetes mellitus with hyperglycemia ICD-10: E11.65 ICD-9: 250.00 02/25/2019 Chronic kidney disease, stage 3 (moderate) ICD-10: N18.3 ICD-9: 585.3 02/25/2019 Chronic pain syndrome ICD-10: G89.4 ICD-9: 338.4 02/25/2019 Localized edema ICD-10: R60.0 ICD-9: 782.3 10/18/2018 Cellulitis of right lower limb ICD-10: L03.115 ICD-9: 682.6 10/18/2018 Cellulitis of left lower limb ICD-10: L03.116 ICD-9: 682.6 10/18/2018 Chronic obstructive pulmonary disease, unspecified ICD-10: J44.9 ICD-9: 496 10/14/2018 Weakness ICD-10: R53.1 ICD-9: 780.79 10/14/2018 Malignant neoplasm of prostate ICD-10: C61 ICD-9: 185 10/04/2018 Type 2 diabetes mellitus with foot ulcer ICD-10: E11.621 ICD-9: 250.80 10/04/2018 Hypoxemia ICD-10: R09.02 ICD-9: 799.02 10/04/2018 Unspecified jaundice ICD-10: R17 ICD-9: 782.4 02/20/2018 Generalized abdominal pain ICD-10: R10.84 ICD-9: 789.07 02/20/2018 Gross hematuria ICD-10: R31.0 ICD-9: 599.71 02/20/2018 Encounter for immunization ICD-10: Z23 ICD-9: V03.82 02/05/2018 Other specified hypothyroidism ICD-10: E03.8 ICD-9: 244.9 02/05/2018 Encounter for screening for malignant neoplasm of prostate ICD- 10: Z12.5 ICD-9: V76.44 02/05/2018 Encounter for general adult medical examination with abnormal findings ICD-10: Z00.01 ICD-9: V70.0 11/30/2017 Essential (primary) hypertension ICD-10: I10 ICD-9: 401.9 09/20/2017 Dysuria ICD-10: R30.0 ICD-9: 788.1 03/22/2017 Chronic gout due to renal impairment, left [...] Visit Reason For Visit Effective Dates Notes hypertension 02/25/2019 lower leg pain 10/18/2018 lower [...] Code Item Item Code Result Date %Hba1C Ive522 % HbA1c 30681- 6 9.2 % 02/25/2019 %Hba1C Qop262 Gluc Ave 217 mg/dL 02/25/2019 Comp Metabolic Emf369 NA 136 mEq/L 02/25/2019 Comp Metabolic Euv541 K 4.8 mEq/L 02/25/2019 Comp Metabolic Svk900 CL 95 mEq/L 02/25/2019 Comp Metabolic Rnr291 CO2 36.0 mEq/L 02/25/2019 Comp Metabolic Nrz928 ANION GAP 10 02/25/2019 Comp Metabolic Gqb340 GLUCOSE 255 mg/dL 02/25/2019 Comp Metabolic Uvo011 Creat 1.2 mg/dL 02/25/2019 Comp Metabolic Jqr987 eGFR 62 ml/min/1.73m2 02/25/2019 Comp Metabolic Iln886 BUN 29 mg/dL 02/25/2019 Comp Metabolic Jgi650 B/C Ratio 24.0 Ratio 02/25/2019 Comp Metabolic Jxy521 CALCIUM 9.0 mg/dL 02/25/2019 Comp Metabolic Kki932 ALK PHOS 102 U/L 02/25/2019 Comp Metabolic Cla411 AST(SGOT) 12 U/L 02/25/2019 Comp Metabolic Apj785 ALT(SGPT) 9 U/L 02/25/2019 Comp Metabolic Fsp608 BILI T 0.6 mg/dL 02/25/2019 Comp Metabolic Flx169 ALBUMIN 3.8 g/dL 02/25/2019 Comp Metabolic Xli841 TPRO 6.6 g/dL 02/25/2019 Comp Metabolic Eih631 GLOB 2.8 g/dL 02/25/2019 Comp Metabolic Qcr770 A/G Ratio 1.4 Ratio 02/25/2019 Comp Metabolic Nni780 Osmo 286 mOsmo 02/25/2019 %Hba1C Ozz541 % HbA1c 54786- 6 6.4 % 08/30/2018 %Hba1C Quk703 Gluc Ave 137 mg/dL 08/30/2018 Culture Urine [id number] URINE CULTURE SEE NOTES 02/22/2018 Urine Culture [...] 24.5 pg 02/20/2018 Cbc With Differential Ord2 Green% 8.9 % 02/20/2018 Cbc With Differential Ord2 [...] 0.81 K/ul 02/20/2018 Cbc With Differential Ord2 Green ABS# 0.7 K/ul 02/20/2018 Cbc With Differential Ord2 Eos ABS# 0.4 K/ul 02/20/2018 Cbc With Differential Ord2 Baso ABS# 0.0 K/ul 02/20/2018 %Hba1C Ksx250 % HbA1c 69734- 6 7.7 % 02/20/2018 %Hba1C Sie287 Gluc Ave 174 mg/dL 02/20/2018 Lipase Auv595 LIPASE 17 U/L 02/20/2018 Microalbumin Lul530 MicroAlb 6.5 mg/dL 02/20/2018 Amylase Ord34 AMYLASE 15 U/L 02/20/2018 Free T4 Ezt129 FREE T4 0.61 ng/dL 02/20/2018 Lipid Ord30 CHOL 203 mg/dL 02/20/2018 Lipid Ord30 HDL 7.0 mg/dl 02/20/2018 Lipid Ord30 TRIG 271 mg/dL 02/20/2018 Lipid Ord30 LDL 142 mg/dL 02/20/2018 Lipid Ord30 C/HDL 29.0 Ratio 02/20/2018 Comp Metabolic Uux326 NA 134 mEq/L 02/20/2018 Comp Metabolic Szt246 K 3.6 mEq/L 02/20/2018 Comp Metabolic Nfp337 CL 96 mEq/L 02/20/2018 Comp Metabolic Aac391 CO2 29.0 mEq/L 02/20/2018 Comp Metabolic Ayu352 ANION GAP 13 02/20/2018 Comp Metabolic Axz914 GLUCOSE 165 mg/dL 02/20/2018 Comp Metabolic Wkj014 Creat 1.2 mg/dL 02/20/2018 Comp Metabolic Kuy436 eGFR 63 ml/min/1.73m2 02/20/2018 Comp Metabolic Rfg385 BUN 14 mg/dL 02/20/2018 Comp Metabolic Spv406 B/C Ratio 11.6 Ratio 02/20/2018 Comp Metabolic Fna826 CALCIUM 8.5 mg/dL 02/20/2018 Comp Metabolic Ueg100 ALK PHOS 633 U/L 02/20/2018 Comp Metabolic Kpa767 AST(SGOT) 112 U/L 02/20/2018 Comp Metabolic Jvs564 ALT(SGPT) 148 U/L 02/20/2018 Comp Metabolic Psl349 BILI T 6.8 mg/dL 02/20/2018 Comp Metabolic Ilp728 ALBUMIN 3.3 g/dL 02/20/2018 Comp Metabolic Zvb520 TPRO 5.9 g/dL 02/20/2018 Comp Metabolic Xjj118 GLOB 2.6 g/dL 02/20/2018 Comp Metabolic Tij295 A/G Ratio 1.3 Ratio 02/20/2018 Comp Metabolic Usg538 Osmo 272 mOsmo 02/20/2018 Total Psa Ord10 [...] Metabolic Ord15 CALCIUM 9.2 mg/dL 11/09/2017 %Hba1C Zvy645 % HbA1c 01225- 6 8.0 % 11/09/2017 %Hba1C Pvv815 Gluc Ave 183 mg/dL 11/09/2017 Metabolic Ord15 [...] Ord15 CALCIUM 8.7 mg/dL 06/25/2017 Culture Wound [id number] WOUND CULTURE SEE NOTES 04/09/2017 Culture Wound [id number] Continued Results 04/09/2017 Amylase Ord34 AMYLASE 19 [...] 27.9 pg 03/22/2017 Cbc With Differential Ord2 Green% 8.3 % 03/22/2017 Cbc With Differential Ord2 [...] 1.35 K/ul 03/22/2017 Cbc With Differential Ord2 Green ABS# 1.4 K/ul 03/22/2017 Cbc With Differential Ord2 Eos ABS# 0.2 K/ul 03/22/2017 Cbc With Differential Ord2 Baso ABS# 0.0 K/ul 03/22/2017 Comp Metabolic Kwv321 NA 134 mEq/L 03/22/2017 Comp Metabolic Lys956 K 4.5 mEq/L 03/22/2017 Comp Metabolic Dtx808 CL 93 mEq/L 03/22/2017 Comp Metabolic Nqo165 CO2 31.0 mEq/L 03/22/2017 Comp Metabolic Gov023 ANION GAP 15 03/22/2017 Comp Metabolic Vqo040 GLUCOSE 198 mg/dL 03/22/2017 Comp Metabolic Ezr208 Creat 1.5 mg/dL 03/22/2017 Comp Metabolic Lqp320 eGFR 50 ml/min/1.73m2 03/22/2017 Comp Metabolic Uab239 BUN 32 mg/dL 03/22/2017 Comp Metabolic Kjy775 B/C Ratio 21.6 Ratio 03/22/2017 Comp Metabolic Hse753 CALCIUM 8.4 mg/dL 03/22/2017 Comp Metabolic Ihz521 ALK PHOS 245 U/L 03/22/2017 Comp Metabolic Fbq761 AST(SGOT) 18 U/L 03/22/2017 Comp Metabolic Yld078 ALT(SGPT) 17 U/L 03/22/2017 Comp Metabolic Tvu728 BILI T 0.8 mg/dL 03/22/2017 Comp Metabolic Rvm210 ALBUMIN 2.9 g/dL 03/22/2017 Comp Metabolic Wrp513 TPRO 6.3 g/dL 03/22/2017 Comp Metabolic Bxg503 GLOB 3.4 g/dL 03/22/2017 Comp Metabolic Rsh189 A/G Ratio 0.8 Ratio 03/22/2017 Comp Metabolic Lvn647 Osmo 281 mOsmo 03/22/2017 Lipase Qpr993 LIPASE 12 U/L 03/22/2017 Comp Metabolic Gfh433 NA 142 mEq/L 03/09/2017 Comp Metabolic Ljb230 K 4.8 mEq/L 03/09/2017 Comp Metabolic Cun012 CL 103 mEq/L 03/09/2017 Comp Metabolic Bfe574 CO2 30.0 mEq/L 03/09/2017 Comp Metabolic Ast249 ANION GAP 14 03/09/2017 Comp Metabolic Vgd766 GLUCOSE 152 mg/dL 03/09/2017 Comp Metabolic Psu250 Creat 1.3 mg/dL 03/09/2017 Comp Metabolic Zny509 eGFR 56 ml/min/1.73m2 03/09/2017 Comp Metabolic Tew016 BUN 23 mg/dL 03/09/2017 Comp Metabolic Lbw728 B/C Ratio 17.3 Ratio 03/09/2017 Comp Metabolic Zsm474 CALCIUM 8.5 mg/dL 03/09/2017 Comp Metabolic Pdv046 ALK PHOS 97 U/L 03/09/2017 Comp Metabolic Srf920 AST(SGOT) 10 U/L 03/09/2017 Comp Metabolic Hbi072 ALT(SGPT) 6 U/L 03/09/2017 Comp Metabolic Ewh071 BILI T 0.4 mg/dL 03/09/2017 Comp Metabolic Htg982 ALBUMIN 3.4 g/dL 03/09/2017 Comp Metabolic Hmz792 TPRO 6.2 g/dL 03/09/2017 Comp Metabolic Wcd160 GLOB 2.8 g/dL 03/09/2017 Comp Metabolic Tgw244 A/G Ratio 1.2 Ratio 03/09/2017 Comp Metabolic Bzv565 Osmo 290 mOsmo 03/09/2017 Free T4 Nzl880 FREE T4 0.86 ng/dL 03/08/2017 Cbc With [...] 28.2 pg 03/08/2017 Cbc With Differential Ord2 Green% 8.7 % 03/08/2017 Cbc With Differential Ord2 [...] 1.63 K/ul 03/08/2017 Cbc With Differential Ord2 Green ABS# 0.9 K/ul 03/08/2017 Cbc With Differential Ord2 Eos ABS# 0.5 K/ul 03/08/2017 Cbc With Differential Ord2 Baso ABS# 0.0 K/ul 03/08/2017 Tsh Ord6 hTSH II 4.52 uIU/mL 03/08/2017 %Hba1C Nrz859 % HbA1c 74183- 6 8.5 % 03/08/2017 %Hba1C Tmt186 Gluc Ave 197 mg/dL 03/08/2017 %Hba1C Jck721 % HbA1c 36402- 6 9.8 % 12/04/2016 %Hba1C Njp209 Gluc Ave 235 mg/dL 12/04/2016 Tsh Ord6 hTSH II 10.65 uIU/mL 11/30/2016 Comp Metabolic Qez736 NA 134 mEq/L 11/30/2016 Comp Metabolic Blq454 K 5.0 mEq/L 11/30/2016 Comp Metabolic Emx151 CL 95 mEq/L 11/30/2016 Comp Metabolic Eiw972 CO2 34.0 mEq/L 11/30/2016 Comp Metabolic Xmg934 ANION GAP 10 11/30/2016 Comp Metabolic Xbx232 GLUCOSE 226 mg/dL 11/30/2016 Comp Metabolic Gdu042 Creat 1.3 mg/dL 11/30/2016 Comp Metabolic Kap810 eGFR 56 ml/min/1.73m2 11/30/2016 Comp Metabolic Xcq256 BUN 21 mg/dL 11/30/2016 Comp Metabolic Bsw185 B/C Ratio 15.7 Ratio 11/30/2016 Comp Metabolic Aru734 CALCIUM 8.9 mg/dL 11/30/2016 Comp Metabolic Xch147 ALK PHOS 112 U/L 11/30/2016 Comp Metabolic Xbk017 AST(SGOT) 9 U/L 11/30/2016 Comp Metabolic Thf047 ALT(SGPT) 7 U/L 11/30/2016 Comp Metabolic Ufx658 BILI T 0.6 mg/dL 11/30/2016 Comp Metabolic Hbe847 ALBUMIN 3.6 g/dL 11/30/2016 Comp Metabolic Qes406 TPRO 6.4 g/dL 11/30/2016 Comp Metabolic Avi967 GLOB 2.9 g/dL 11/30/2016 Comp Metabolic Lut806 A/G Ratio 1.2 Ratio 11/30/2016 Comp Metabolic Yqe812 Osmo 278 mOsmo 11/30/2016 Lipid Ord30 CHOL [...] 30.6 pg 11/30/2016 Cbc With Differential Ord2 Green% 7.9 % 11/30/2016 Cbc With Differential Ord2 [...] 1.34 K/ul 11/30/2016 Cbc With Differential Ord2 Green ABS# 0.8 K/ul 11/30/2016 Cbc With Differential Ord2 Eos ABS# 0.3 K/ul 11/30/2016 Cbc With Differential Ord2 Baso ABS# 0.0 K/ul 11/30/2016 Free T4 Hyx426 FREE T4 0.89 ng/dL 11/30/2016 Review of Systems System Result Effective Dates Constitutional No recent illness 02/25/2019 Constitutional No [...] thighs 10/18/2018 None Full Exam - General 1995 [...] hygiene 09/20/2017 None Full Exam - General 1995 Eyes conjunctiva/eyelids Overall: conjunctiva clear 09/20/2017 None [...] sounds 03/22/2017 None Full Exam - General 1995 Lymphatic [...] Codes Date ADMIN PNEUMOCOCCAL VACCINE SNOMED CT: 08973801 CPT-4: G0009 02/05/2018 Pneumococcal Polysaccharide Vaccine, 23-Valent, Ad CPT-4: 17087 02/05/2018 PPPS, SUBSEQ VISIT CPT- 4: G0439 11/30/2017 URINALYSIS NONAUTO W/O SCOPE CPT-4: 29068 03/22/2017 URINALYSIS NONAUTO W/O SCOPE CPT-4: 40069 03/21/2017 PPPS, SUBSEQ VISIT CPT- 4: G0439 11/30/2016 PNEUMOCOCCAL VACC 13 JAVIER IM Formatting Model/CDA Sections, Assigned to SNOMED CT: 93143550 CPT-4: 39526Lklrbhk 11/30/2016 ADMIN PNEUMOCOCCAL VACCINE SNOMED CT: 21406979 CPT-4: G0009 11/30/2016 Vital Signs Date Vital 02/25/2019 Blood Pressure 1: 110/58 Code: 8480-6 BMI: 38.3 Code: 31153-5 Heart Rate 1: 47 bpm Height: 5'10" SpO2: 97% Weight: 267 lbs 10/18/2018 Blood Pressure 1: 118/70 Code: 8480-6 BMI: 39.0 Code: 67932-9 Heart Rate 1: 86 bpm Height: 5'10" SpO2: 95% Weight: 272 lbs 10/14/2018 Blood Pressure 1: 120/56 Code: 8480-6 Heart Rate 1: 67 bpm Height: 5'10" SpO2: 92% 10/10/2018 Blood Pressure 1: 126/70 Code: 8480-6 BMI: 34.7 Code: 52215-5 Heart Rate 1: 80 bpm Height: 5'10" SpO2: 96% Temperature: 37.1 (C) / 98.7 (F) Weight: 242 lbs 10/04/2018 Blood Pressure 1: 120/70 Code: 8480-6 Height: 5'10" SpO2: 96% 08/29/2018 Blood Pressure 1: 104/60 Code: 8480-6 BMI: 34.6 Code: 53430-0 Heart Rate 1: 68 bpm Height: 5'10" SpO2: 98% Weight: 241 lbs 02/25/2018 Blood Pressure 1: 120/70 Code: 8480-6 BMI: 37.0 Code: 97649-3 Heart Rate 1: 51 bpm Height: 5'10" SpO2: 97% Weight: 258 lbs 02/20/2018 Blood Pressure 1: 124/70 Code: 8480-6 BMI: 38.0 Code: 27159-7 Heart Rate 1: 60 bpm Height: 5'10" SpO2: 96% Weight: 265 lbs 02/05/2018 Blood Pressure 1: 116/66 Code: 8480-6 BMI: 38.0 Code: 85558-1 Heart Rate 1: 63 bpm Height: 5'10" SpO2: 98% Weight: 265 lbs 11/30/2017 Blood Pressure 1: 132/60 Code: 8480-6 BMI: 37.0 Code: 80133-9 Heart Rate 1: 100 bpm Height: 5'10" SpO2: 96% Waist Measure (cm): 122 cm Weight: 258 lbs 11/08/2017 Blood Pressure 1: 126/64 Code: 8480-6 BMI: 37.2 Code: 58535-3 Heart Rate 1: 92 bpm Height: 5'10" SpO2: 94% Weight: 259 lbs 09/20/2017 Blood Pressure 1: 122 Code: 8480-6 BMI: 36.9 Code: 11990-6 Heart Rate 1: 57 bpm Height: 5'10" SpO2: 96% Weight: 257 lbs 06/25/2017 Blood Pressure 1: 124 Code: 8480-6 BMI: 37.0 Code: 03314-8 Height: 5'10" Weight: 258 lbs 06/07/2017 Blood Pressure 1: 122 Code: 8480-6 BMI: 37.0 Code: 53659-3 Heart Rate 1: 60 bpm Height: 5'10" SpO2: 94% Temperature: 36.4 (C) / 97.6 (F) Weight: 258 lbs 05/03/2017 Blood Pressure 1: 118 Code: 8480-6 BMI: 38.2 Code: 76463-6 Heart Rate 1: 52 bpm Height: 5'10" SpO2: 98% Weight: 266 lbs 04/02/2017 Blood Pressure 1: 118 Code: 8480-6 BMI: 38.2 Code: 38784-7 Heart Rate 1: 53 bpm Height: 5'10" SpO2: 93% Weight: 266 lbs 03/26/2017 Blood Pressure 1: 114 Code: 8480-6 BMI: 38.3 Code: 77576-4 Height: 5'10" Weight: 267 lbs 03/22/2017 Blood Pressure 1: 122 Code: 8480-6 BMI: 40.0 Code: 77132-5 Heart Rate 1: 52 bpm Height: 5'10" SpO2: 94% Weight: 279 lbs 03/08/2017 Blood Pressure 1: 124 Code: 8480-6 BMI: 39.4 Code: 31400-5 Heart Rate 1: 51 bpm Height: 5'10" SpO2: 94% Weight: 274 lbs 8 oz 12/06/2016 Blood Pressure 1: 126 Code: 8480-6 BMI: 40.3 Code: 72827-1 Heart Rate 1: 50 bpm Height: 5'10" SpO2: 94% Weight: 281 lbs 11/30/2016 Blood Pressure 1: 112 Code: 8480-6 BMI: 40.3 Code: 94332-2 Heart Rate 1: 52 bpm Height: 5'10" SpO2: 93% Waist Measure (cm): 135 cm Weight: 281 lbs 11/28/2016 Blood Pressure 1: 132/72 Code: 8480-6 BMI: 40.3 Code: 65682-8 Heart Rate 1: 50 bpm Height: 5'10" Weight: 281 lbs 05/04/2016 Blood Pressure 1: 128/78 Code: 8480-6 BMI: 38.5 Code: 53406-3 Heart Rate 1: 74 bpm Height: 5'10" SpO2: 98% Weight: 268 lbs 8 oz 11/04/2015 Blood Pressure 1: 136/60 Code: 8480-6 BMI: 38.0 Code: 05788-2 Heart Rate 1: 55 bpm Height: 5'10" SpO2: 94% Weight: 265 lbs 07/30/2015 Blood Pressure 1: 128/74 Code: 8480-6 BMI: 38.0 Code: 32206-5 Heart Rate 1: 47 bpm Height: 5'10" SpO2: 97% Weight: 265 lbs 01/26/2015 Blood Pressure 1: 122/64 Code: 8480-6 BMI: 34.0 Code: 71942-7 Heart Rate 1: 68 bpm Height: 5'10" Weight: 237 lbs Functional Status No Functional Status data History of Present Illness Symptom Name Status Result Effective Date Notes Quality chronic 02/25/2019 None Quality primary hypertension [...] data Encounters Encounter Performer Location Codes Date ( 17341 EST. PATIENT, LEVEL IV Diagnosis: Essential (primary) hypertension[ICD10: I10] Diagnosis: Type 2 diabetes mellitus with hyperglycemia[ICD10: E11.65] Diagnosis: Chronic pain syndrome[ICD10: G89.4] Diagnosis: Chronic kidney disease, stage 3 (moderate)[ICD10: N18.3] [facility] CPT-4: 62826 02/25/2019 13472 EST. PATIENT, LEVEL III Diagnosis: Localized edema[ICD10: R60.0] Diagnosis: Cellulitis of left lower limb[ICD10: L03.116] Diagnosis: Cellulitis of right lower limb[ICD10: L03.115] [facility] CPT-4: 99385 10/18/2018 13874 EST. PATIENT, LEVEL III Diagnosis: Localized edema[ICD10: R60.0] Diagnosis: Cellulitis of left lower limb[ICD10: L03.116] Diagnosis: Cellulitis of right lower limb[ICD10: L03.115] Diagnosis: Chronic obstructive pulmonary disease, unspecified[ICD10: J44.9] Diagnosis: Weakness[ICD10: R53.1] [facility] CPT-4: 28188 10/14/2018 50142 EST. PATIENT, LEVEL III Diagnosis: Localized edema[ICD10: R60.0] Diagnosis: Cellulitis of left lower limb[ICD10: L03.116] Diagnosis: Cellulitis of right lower limb[ICD10: L03.115] Kiki Sanchez MD, [facility] CPT-4: 94414 10/10/2018 ([id number]) 07108 EST. PATIENT, LEVEL IV Diagnosis: Type 2 diabetes mellitus with foot ulcer[ICD10: E11.621] Diagnosis: Essential (primary) hypertension[ICD10: I10] Diagnosis: Malignant neoplasm of prostate[ICD10: C61] Diagnosis: Chronic obstructive pulmonary disease, unspecified[ICD10: J44.9] Diagnosis: Hypoxemia[ICD10: R09.02] Sarah Sanchez MD, [facility] CPT-4: 90381 10/04/2018 ([id number]) 15940 EST. PATIENT, LEVEL IV Diagnosis: Type 2 diabetes mellitus with hyperglycemia[ICD10: E11.65] Diagnosis: Essential (primary) hypertension[ICD10: I10] Diagnosis: Malignant neoplasm of prostate[ICD10: C61] Sarah Sanchez MD, [facility] CPT-4: 71349 08/29/2018 ([id number]) 63161 EST. PATIENT, LEVEL IV Diagnosis: Malignant neoplasm of prostate[ICD10: C61] Dorene Sanchez MD, [facility] CPT-4: 27461 02/25/2018 82500 EST. PATIENT, LEVEL IV Diagnosis: Generalized abdominal pain[ICD10: R10.84] Diagnosis: Unspecified jaundice[ICD10: R17] Diagnosis: Gross hematuria[ICD10: R31.0] Kiki Sanchez MD, [facility] CPT-4: 95223 02/20/2018 ([id number]) 17426 EST. PATIENT, LEVEL IV Diagnosis: Type 2 diabetes mellitus with hyperglycemia[ICD10: E11.65] Diagnosis: Essential (primary) hypertension[ICD10: I10] Diagnosis: Chronic kidney disease, stage 3 (moderate)[ICD10: N18.3] Diagnosis: Chronic pain syndrome[ICD10: G89.4] Diagnosis: Other specified hypothyroidism[ICD10: E03.8] Diagnosis: Encounter for screening for malignant neoplasm of prostate[ICD10: Z12.5] Diagnosis: Encounter for immunization[ICD10: Z23] Sarah Sanchez MD, [facility] CPT-4: 08054 02/05/2018 ([id number]) 60389 EST. PATIENT, LEVEL IV Diagnosis: Type 2 diabetes mellitus with hyperglycemia[ICD10: E11.65] Diagnosis: Essential (primary) hypertension[ICD10: I10] Dorene Sanchez MD, [facility] CPT-4: 46901 11/08/2017 ([id number]) 61646 EST. PATIENT, LEVEL IV Diagnosis: Type 2 diabetes mellitus with hyperglycemia[ICD10: E11.65] Diagnosis: Chronic pain syndrome[ICD10: G89.4] Diagnosis: Essential (primary) hypertension[ICD10: I10] Diagnosis: Chronic kidney disease, stage 3 (moderate)[ICD10: N18.3] Diagnosis: Localized edema[ICD10: R60.0] Dorene Sanchez MD, [facility] CPT-4: 38974 09/20/2017 ([id number]) 58486 EST. PATIENT, LEVEL III Diagnosis: Type 2 diabetes mellitus with hyperglycemia[ICD10: E11.65] Sarah Sanchez MD, [facility] CPT-4: 74554 06/25/2017 ([id number]) 92902 EST. PATIENT, LEVEL III Diagnosis: Cellulitis of left lower limb[ICD10: L03.116] Sarah Sanchez MD, [facility] CPT-4: 91460 06/07/2017 ([id number]) 75112 EST. PATIENT, LEVEL III Diagnosis: Localized edema[ICD10: R60.0] Diagnosis: Type 2 diabetes mellitus with foot ulcer[ICD10: E11.621] Sarah Sanchez MD, [facility] CPT-4: 12703 05/03/2017 ([id number]) 21434 EST. PATIENT, LEVEL III Diagnosis: Cellulitis of left lower limb[ICD10: L03.116] Diagnosis: Localized edema[ICD10: R60.0] Sarah Sanchez MD, [facility] CPT-4: 58290 04/02/2017 ([id number]) Miscellaneous no charge Diagnosis: Localized edema[ICD10: R60.0] Diagnosis: Cellulitis of left lower limb[ICD10: L03.116] Sarah Sanchez MD, [facility] CPT-4: 00269 03/26/2017 ([id number]) 19001 EST. 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 PATIENT, LEVEL IV Diagnosis: Type 2 diabetes mellitus with hyperglycemia[ICD10: E11.65] Diagnosis: Other specified hypothyroidism[ICD10: E03.8] Diagnosis: Essential (primary) hypertension[ICD10: I10] Sarah Sanchez MD, [facility] CPT-4: 64939 03/08/2017 ([id number]) 28473 EST. PATIENT, LEVEL III Diagnosis: Type 2 diabetes mellitus with hyperglycemia[ICD10: E11.65] Diagnosis: Other specified hypothyroidism[ICD10: E03.8] Sarah Sanchez MD, [facility] CPT-4: 49398 12/06/2016 ([id number]) 91118 EST. PATIENT, LEVEL IV Diagnosis: Essential (primary) hypertension[ICD10: I10] Diagnosis: Chronic kidney disease, stage 3 (moderate)[ICD10: N18.3] Dorene Sanchez MD, [facility] CPT-4: 29693 11/28/2016 ([id number]) 70932 EST. PATIENT, LEVEL IV Diagnosis: Essential (primary) hypertension[ICD10: I10] Diagnosis: Chronic pain syndrome[ICD10: G89.4] Diagnosis: Chronic kidney disease, stage 3 (moderate)[ICD10: N18.3] Diagnosis: Vitamin B12 deficiency anemia due to intrinsic factor deficiency[ICD10: D51.0] Diagnosis: Other specified hypothyroidism[ICD10: E03.8] Dorene Sanchez MD, [facility] CPT-4: 79758 05/04/2016 44119 EST. PATIENT, LEVEL III Diagnosis: Chronic pain syndrome[ICD10: G89.4] Diagnosis: Essential (primary) hypertension[ICD10: I10] Diagnosis: Other specified hypothyroidism[ICD10: E03.8] Kiki Sanchez MD, [facility] CPT-4: 99092 11/04/2015 75367 EST. PATIENT, LEVEL III Diagnosis: Chronic pain syndrome[ICD10: G89.4] Diagnosis: Essential (primary) hypertension[ICD10: I10] [facility] CPT-4: 31471 07/30/2015 ([id number]) OFFICE/OUTPATIENT VISIT NEW Diagnosis: ESSENTIAL HYPERTENSION[ICD9: 401.9] Diagnosis: HYPOTHYROIDISM[ICD9: 244.9] Diagnosis: ANEMIA[ICD9: 285.9] Diagnosis: Vitamin B12 deficiency[ICD9: 266.2] Diagnosis: CHRONIC PAIN SYNDROME[ICD9: 338.4] Diagnosis: Chronic renal insufficiency, stage III (moderate)[ICD9: 585.3] Diagnosis: GOUT[ICD9: 274.9] Dorene Sanchez MD, [facility] CPT-4: 56125 01/26/2015 Plan of Care Planned Activity Notes Codes Status Date Appointment: Kiki Menjivar WPtel: [phone] [phone] (15 min) Moderate 03/12/2019 Appointment: Nurse Visit 03/12/2019 Visit Plan: Hypertension - well controlled [...] of over-medication. 02/25/2019 App[facility]ment[phone] (15 min) Moderate 02/25/2019 Patient Education: Patient [...] discharge. 10/18/2018 Appointment: [phone] (30 min) Complex 10/18/2018 Patient Education: Patient [...] decrease edema. 10/14/2018 Appointment: Kiki Menjivar WPtel: [facility]0 [facility] (30 min) Complex 10/14/2018 Patient Education: Patient [...] warmth, discharge. 10/10/2018 Appointment: Kiki Menjivar WPtel: [facility]8 [facility] (30 min) Complex 10/10/2018 Patient Education: Patient Medication Summary Completed 10/10/2018 Visit Plan: DM with peripheral neuropathy-paperwork completed for diabetic shoes and will fax to Dr Bauer HTN-controlled -no changes Swohiujxa-AEZF-XYK-prostate cancer with mets- patient qualifies for oxygen-oxy gen saturation dropped to 86% on room air during ambulation but increased to 99% on 2L NC at rest-will send orders to [facility] for continue oxygen at 2L per nasal cannula 10/04/2018 Appointment: Sarah Hernandes WPtel: [facility]4 [phone] [place] (30 min) Complex 10/04/2018 Patient Education: [...] prostate cancer-patient seeing Dr Moreno at the [facility]-patient states he will have teeth pulled so we can discuss further treatment options with Dr Moreno 08/29/2018 Appointment: Sarah Hernandes WPtel: [phone] (15 min) Moderate 08/29/2018 Patient Education: Patient Medication Summary Completed 08/29/2018 Referral: Edgard Rivera MD WPtel: Via [address] with Dr. Moreno. Patient informed. Referral info faxed. Completed 02/27/2018 Visit Plan: Recurrent prostate cancer - I have recommended a referral to Dr. Rivera. We discussed the case at length today- he is not interested in extensive treatment, but if possible to extend his quantity and quality of life, he would like to try. 02/25/2018 Appointment: Dorene Sanchez WPtel: [facility]2 [facility] (15 min) Moderate 02/25/2018 Patient Education: Patient Medication Summary Completed 02/25/2018 Care Plan: Referral Order SNOMED-CT : [id number] Pending 02/25/2018 Visit Plan: Intermittent abdominal pain, jaundice, itching - will check labs and treat as indicated - pt is to go to the ER with any acute change in symptoms or any acute concerns. 02/20/2018 Appointment: Kiki Menjivar WPtel: [facility]5 [facility] (30 min) Complex 02/20/2018 Patient Education: [...] control. 02/05/2018 Appointment: Sarah Hernandes WPtel: [phone] (30 min) Complex 02/05/2018 Patient Education: Patient [...] surrogate. 11/30/2017 Appointment: Sarah Hernandes WPtel: [phone] [place] [phone] [facility] - Annual Wellness Visit 11/30/2017 [...] 1.2 11/08/2017 Appointment: [phone] (15 min) Moderate 11/08/2017 Patient Education: [...] over-medication. 09/20/2017 Appointment: Dore[facility] Sanchez [facility]el: [phone] (15 min) Moderate 09/20/2017 Patient Education: [...] glucose control. 06/25/2017 Appointment: Sarah Hernandes WPtel: [facility]5 [phone] (30 min) Complex 06/25/2017 Patient Education: Patient Medication Summary Completed 06/25/2017 Appointment: Sarah Hernandes WPtel: [facility]5 [phone] (30 min) Complex 06/22/2017 Visit Plan: Cellulitis - start oral antibiotics as previously directed, return to clinic as previously directed, call for acute change in symptoms, worsening redness, warmth, discharge. 06/07/2017 Appointment: Sarah Hernandes WPtel: [facility]5 [phone] (30 min) Complex 06/07/2017 Patient Education: Patient Medication Summary Completed 06/07/2017 Patient Education: Obesity Completed 06/07/2017 Appointment: Dorene Sanchez WPtel: [phone] [phone] (15 min) Moderate 05/31/2017 Visit Plan: Edema-significantly improved-no changes Ulcer-left lower leg and foot-seeing Dr Norwood at wound care-appt scheduled with Dr Frausto for vascular evaluation 05/03/2017 Appointment: Sarah Hernandes WPtel: [facility]6 [phone] (15 min) Moderate 05/03/2017 Patient Education: Patient Medication Summary Completed 05/03/2017 Patient Education: Obesity Completed 05/03/2017 Visit Plan: Ibxjffprfc-qypovztcl-dsycarf to finish abx-no further treatment indicated Edema-significantly improved-no longer weeping-continue unna boots twice weekly with home health 04/02/2017 Appointment: Sarah Hernandes WPtel: [phone] [phone] (30 min) Complex 04/02/2017 Patient Education: Patient Medication Summary Completed 04/02/2017 Patient Education: Obesity Completed 04/02/2017 Visit Plan: Cellulitis-left leg-continue levaquin Edema-increase lasix/potassium-consult [facility] for unna boots/dressing changes 03/26/2017 Appointment: Sarah Hernandes WPtel: [facility]4 [phone] (15 min) Moderate 03/26/2017 Patient Education: Patient [...] indomethacin-stop aleve 03/22/2017 Appointment: Sarah Hernandes WPtel: [address] [place], [place] [phone] (15 min) Moderate 03/22/2017 Patient Education: Patient [...] of control. 03/08/2017 Appointment: Sarah Hernandes WPtel: [address] [place] [phone] (30 min) Complex 03/08/2017 Patient Education: Patient [...] care surrogate. 11/30/2016 App[facility]ment: [facility]el[phone] [facility] - Annual Wellness Visit 11/30/2016 [...] fluids. 11/28/2016 Appointment: Dorene Sanchez [facility]Ptel: [phone] (15 min) Moderate 11/28/2016 Patient Education: [...] 01/26/2015 Referral: Edgard Rivera MD WPtel: [address] [place] Referral Appointment Requested Instructions Comment [...] - continue with increase in fluids. . Recurrent prostate cancer - I have recommended a referral to Dr. Rivera. We discussed the case at length today- he is not interested in extensive treatment, but if possible to extend his quantity and quality of life, he would like to try. PREVNAR 13 TODAY- GIVEN IN OFFICE PREVNAR 23 IN ONE YEAR SHINGLES VACCINATION TO BE ADMINISTERED AT [facility] RECOMMEND OBTAINING MEDICAL POWER OF FURNACE OPERATOR AND TENDER AND LIVING WILL PATIENT DOES NOT HAVE [...] AND POTASSIUM TO TWICE DAILY [facility] UNNA [facility] -WOUND CARE . Cellulitis-left leg-continue levaquin Edema-increase lasix/potassium-consult [facility] for unna boots/dressing changes REPEAT HGB A1C, [...] with supportive care and medication monitoring. . Chronic Pain Syndrome - pt has [...] with Dr Frausto for vascular evaluation . Obbggbtqdv-zgiksmxmp-xqidvfq to finish abx-no further treatment indicated Edema-significantly [...] b12 shots. [facility] Cellulitis - start oral antibiotics as [...] SHINGLES VACCINATION TO BE ADMINISTERED AT [facility] RECOMMEND OBTAINING MEDICAL POWER OF FURNACE OPERATOR AND TENDER AND LIVING WILL PATIENT DOES NOT HAVE [...] YEAR SHINGLES VACCINATION TO BE ADMINISTERED AT [facility] RECOMMEND OBTAINING MEDICAL POWER OF FURNACE OPERATOR AND TENDER AND LIVING WILL PATIENT DOES NOT HAVE [...] fax to Dr Bauer HTN-controlled -no changes Dzphftauy-GPOQ-IKF-prostate cancer with mets- patient qualifies for oxygen- oxygen saturation dropped to 86% on room air during ambulation but increased to 99% on 2L NC at rest-will send orders to [facility] for continue oxygen at 2L per nasal cannula . Intermittent abdominal pain, jaundice, itching - will check labs and treat as indicated - pt is to go to the ER with any acute change in symptoms or any acute concerns.
--- OUTSIDE RECORDS SUMMARY | 2019-03-24 08:02 | XMS REPORT | CCD ---
Author Author Dorene Sanchez Organization [facility] Address [address] [place] [address] Phone Care Team Providers Care Bruise Trimmer Name Role Phone PP Unavailable CCM Unavailable Summary Purpose Interface Exchange Insurance Providers Payer name Policy type / Coverage type Covered libertarian ID Effective Begin Date Effective End Date WPS Medicare Part B Medicare Part B [id number] Unknown Unknown Family history Father Diagnosis Age At Onset Stroke Unknown Mother Diagnosis Age At Onset Stroke Unknown Diabetes mellitus Type 2 Unknown Social History Social History Element Codes Description Effective Dates Tobacco history SNOMED CT: 637972722 Currently uses smokeless tobacco Chews 05/04/2016 Marital status Unknown 01/26/2015 Number of children Unknown 3 01/26/2015 Employment Unknown Retired 01/26/[address]: 066657848 Never drinks alcohol quit in July 2014 01/26/2015 Allergies, Adverse Reactions, Alerts Substance Reaction Codes Entered Date Inactivated Date Status * NO KNOWN FOOD ALLERGIES Unknown 01/26/2015 No Inactive Date Active * NO KNOWN DRUG ALLERGIES Unknown 01/26/2015 No Inactive Date Active Past Medical History Illness Codes Condition Status Onset Date Resolved Date Chronic kidney disease, stage 3 (moderate) ICD-9: [...] Condition Codes Effective Dates Condition Status Chronic kidney disease, stage 3 (moderate) ICD-9: [...] chloride ER 10 mEq tablet,extended release RxNorm: 316237 TAKE ONE TABLET BY MOUTH DAILY 03/10/2019 09/05/2019 Active oxycodone 10 mg tablet RxNorm: 7097708 1 Tablet(s) PO Q4 PRN 02/25/2019 No Stop Date Active oxycodone 20 mg tablet RxNorm: 8659344 1/2 Tablet(s) PO Q6 as needed 01/21/2019 02/24/2019 Inactive oxycodone 20 mg tablet RxNorm: 1586019 1/2 Tablet(s) PO Q6 as needed 12/18/2018 01/16/2019 Inactive oxycodone 20 mg tablet RxNorm: 2722319 1/2 Tablet(s) PO Q6 as needed 11/12/2018 12/11/2018 Inactive gabapentin 100 mg capsule RxNorm: 079200 1 Capsule(s) BID 11/05/2018 05/03/2019 Active potassium chloride ER 10 mEq tablet,extended release RxNorm: 328105 TAKE ONE TABLET BY MOUTH DAILY 11/04/2018 11/19/2018 Inactive Probiotic 10 billion cell capsule RxNorm: 2364721 1 Capsule(s) PO BID 10/25/2018 10/24/2018 Inactive Keflex 500 mg capsule RxNorm: 102938 1 Capsule(s) PO QID 10/25/2018 10/31/2018 Inactive Probiotic 10 billion cell capsule RxNorm: 8033880 1 Capsule(s) PO BID 10/25/2018 10/31/2018 Inactive oxycodone 20 mg tablet RxNorm: 5352316 1/2 Tablet(s) PO Q6 as needed 10/14/2018 11/11/2018 Inactive Lasix 20 mg tablet RxNorm: 302605 1 Tablet(s) PO BID 10/10/2018 04/07/2019 Active Keflex 500 mg capsule RxNorm: 310702 1 Capsule(s) PO TID 10/10/2018 10/19/2018 Inactive potassium chloride ER 10 mEq tablet,extended release RxNorm: 896163 1 Tablet(s) PO daily 10/10/2018 11/03/2018 Inactive albuterol sulfate 2.5 mg/3 mL (0.083 %) solution for nebulization RxNorm: 338254 1 Milliliter(s) INH TID DX J44.9 10/04/2018 01/31/2019 Inactive gabapentin 100 mg capsule RxNorm: 572120 TAKE ONE CAPSULE BY MOUTH IN THE EVENING AT 5PM 09/24/2018 11/04/2018 Inactive oxycodone 20 mg tablet RxNorm: 6355202 1/2 Tablet(s) PO Q6 as needed 09/12/2018 10/11/2018 Inactive oxycodone 20 mg tablet RxNorm: 9335923 1/2 Tablet(s) PO Q6 as needed 08/15/2018 09/11/2018 Inactive oxycodone 20 mg tablet RxNorm: 4765713 1/2 Tablet(s) PO Q6 as needed 07/16/2018 08/14/2018 Inactive oxycodone 20 mg tablet RxNorm: 9360768 1/2 Tablet(s) PO Q6 as needed 06/14/2018 07/13/2018 Inactive gabapentin 100 mg capsule RxNorm: 875116 TAKE ONE CAPSULE BY MOUTH IN THE EVENING AT 5PM 05/30/2018 09/23/2018 Inactive oxycodone 20 mg tablet RxNorm: 0260779 1/2 Tablet(s) PO Q6 as needed 05/15/2018 06/13/2018 Inactive oxycodone 20 mg tablet RxNorm: 3420411 1/2 Tablet(s) PO Q6 as needed 04/12/2018 05/11/2018 Inactive oxycodone 20 mg tablet RxNorm: 6309583 1/2 Tablet(s) PO Q6 as needed 03/11/2018 04/09/2018 Inactive Cipro 500 mg tablet RxNorm: 164160 1 Tablet(s) PO BID 02/21/2018 02/20/2018 Inactive levothyroxine 200 mcg tablet RxNorm: 286541 1 Tablet(s) PO daily 02/21/2018 02/20/2018 Inactive Cipro 500 mg tablet RxNorm: 262606 1 Tablet(s) PO BID 02/21/2018 03/02/2018 Inactive levothyroxine 200 mcg tablet RxNorm: 283903 1 Tablet(s) PO daily 02/21/2018 02/15/2019 Inactive oxycodone 20 mg tablet RxNorm: 6418277 1/2 Tablet(s) PO Q6 as needed 02/12/2018 03/10/2018 Inactive oxycodone 20 mg tablet RxNorm: 7496744 1/2 Tablet(s) PO Q6 as needed 01/16/2018 02/11/2018 Inactive gabapentin 100 mg capsule RxNorm: 901912 TAKE ONE CAPSULE BY MOUTH IN THE EVENING AT 5PM 01/15/2018 05/29/2018 Inactive bisoprolol 5 mg-hydrochlorothiazide 6.25 mg tablet RxNorm: 441471 TAKE ONE TABLET BY MOUTH DAILY 01/01/2018 12/26/2018 Inactive oxycodone 20 mg tablet RxNorm: 0136332 1/2 Tablet(s) PO Q6 as needed 12/20/2017 01/14/2018 Inactive oxycodone 20 mg tablet RxNorm: 6500567 1/2 Tablet(s) PO Q6 as needed 11/20/2017 12/19/2017 Inactive Victoza 2-Dino 0.6 mg/0.1 mL (18 mg/3 mL) subcutaneous pen injector RxNorm: 941374 1.2 Milligram(s) SQ daily 11/08/2017 12/07/2017 Inactive oxycodone 20 mg tablet RxNorm: 9244539 1/2 Tablet(s) PO Q6 as needed 10/19/2017 11/17/2017 Inactive gabapentin 100 mg capsule RxNorm: 991981 1 Capsule(s) PO QPM at 5 pm 09/20/2017 01/14/2018 Inactive Lasix 20 mg tablet RxNorm: 558078 1 Tablet(s) QAM at 5pm 09/20/2017 03/18/2018 Inactive oxycodone 20 mg tablet RxNorm: 5534679 1/2 Tablet(s) PO Q6 as needed 09/18/2017 10/17/2017 Inactive oxycodone 20 mg tablet RxNorm: 6521758 1/2 Tablet(s) PO Q6 as needed 08/14/2017 09/12/2017 Inactive ketoconazole 2 % topical cream RxNorm: 635076 1 Gram(s) TOP BID to affected area until healed 08/03/2017 No Stop Date Active oxycodone 20 mg tablet RxNorm: 5511114 1/2 Tablet(s) PO Q6 as needed 07/17/2017 08/13/2017 Inactive pen needle, diabetic 31 gauge x 5/16" RxNorm: 1 Unit Dose Miscellaneous daily 06/25/2017 03/21/2018 Inactive daily use with victoza Bactrim DS 800 mg-160 mg tablet RxNorm: 851870 1 Tablet(s) PO BID Dr Norwood 06/25/2017 07/04/2017 Inactive Victoza 2-Dino 0.6 mg/0.1 mL (18 mg/3 mL) subcutaneous pen injector RxNorm: 562398 0.6 Milligram(s) SQ daily 06/25/2017 07/24/2017 Inactive doxycycline hyclate 100 mg tablet RxNorm: 928863 1 Tablet(s) PO BID Dr Norwood 06/21/2017 06/30/2017 Inactive oxycodone 20 mg tablet RxNorm: 4134952 1/2 Tablet(s) PO Q6 as needed 06/14/2017 07/13/2017 Inactive clindamycin 150 mg capsule RxNorm: 082574 1 Capsule(s) PO Q8 06/07/2017 06/16/2017 Inactive levothyroxine 175 mcg tablet RxNorm: 136268 TAKE ONE TABLET BY MOUTH DAILY 06/04/2017 09/01/2017 Inactive levothyroxine 175 mcg tablet RxNorm: 645299 TAKE ONE TABLET BY MOUTH DAILY 06/04/2017 11/30/2017 Inactive bisoprolol 5 mg-hydrochlorothiazide 6.25 mg tablet RxNorm: 969373 TAKE ONE TABLET BY MOUTH DAILY 05/24/2017 11/19/2017 Inactive oxycodone 20 mg tablet RxNorm: 8516450 1/2 Tablet(s) PO Q6 as needed 05/14/2017 06/12/2017 Inactive potassium chloride ER 10 mEq capsule,extended release RxNorm: 639370 TAKE ONE CAPSULE BY MOUTH DAILY NEEDED FOR 5 DAYS THEN NEEDED WITH LASIX 04/17/2017 10/13/2017 Inactive Lasix 20 mg tablet RxNorm: 034955 TAKE ONE TABLET BY MOUTH DAILY NEEDED 04/17/2017 09/19/2017 Inactive oxycodone 20 mg tablet RxNorm: 3520856 1/2 Tablet(s) PO Q6 as needed 04/12/2017 05/11/2017 Inactive Colcrys 0.6 mg tablet RxNorm: 874188 2 tabs at onset then may repeat 1 tab in 1 hours if needed- Tablet(s) PO 04/09/2017 No Stop Date Active then take daily until gout resolved Bactrim DS 800 mg-160 mg tablet RxNorm: 073573 1 Tablet(s) PO BID 04/09/2017 04/08/2017 Inactive dc levaquin Bactrim DS 800 mg-160 mg tablet RxNorm: 578326 1 Tablet(s) PO BID 04/09/2017 04/15/2017 Inactive dc levaquin Levaquin 500 mg tablet RxNorm: 612905 1 Tablet(s) PO daily 04/03/2017 04/02/2017 Inactive Levaquin 500 mg tablet RxNorm: 305273 1 Tablet(s) PO daily 04/03/2017 06/06/2017 Inactive indomethacin 25 mg capsule RxNorm: 558481 1 Capsule(s) PO TID PRN 03/22/2017 03/22/2017 Inactive Lasix 20 mg tablet RxNorm: 936372 1 Tablet(s) PO QDAY PRN 03/22/2017 04/16/2017 Inactive daily x 5 days then as needed Levaquin 500 mg tablet RxNorm: 513518 1 Tablet(s) PO daily 03/22/2017 03/31/2017 Inactive potassium chloride ER 10 mEq capsule,extended release RxNorm: 818455 1 Capsule(s) PO QDAY PRN 03/22/2017 04/16/2017 Inactive daily x 5 days then as needed with lasix oxycodone 20 mg tablet RxNorm: 2790228 1/2 Tablet(s) PO Q6 as needed 03/08/2017 04/06/2017 Inactive bisoprolol 5 mg-hydrochlorothiazide 6.25 mg tablet RxNorm: 572193 TAKE ONE TABLET BY MOUTH DAILY 02/14/2017 05/14/2017 Inactive oxycodone 20 mg tablet RxNorm: 2058954 1/2 Tablet(s) PO Q6 as needed 02/08/2017 03/07/2017 Inactive oxycodone 20 mg tablet RxNorm: 4045378 1/2 Tablet(s) PO Q6 as needed 01/08/2017 02/06/2017 Inactive levothyroxine 175 mcg tablet RxNorm: 624189 1 Tablet(s) PO daily 12/06/2016 06/03/2017 Inactive [SAVINGS FOR NON-COVERED DRUGS -- BIN:[id number], PCN: ASPROD1, Group: XXXXX, ID# XXXXXXX, Questions: . THIS IS NOT INSURANCE.] oxycodone 20 mg tablet RxNorm: 6660337 1/2 Tablet(s) PO Q6 as needed 12/04/2016 01/02/2017 Inactive oxycodone 20 mg tablet RxNorm: 4080644 1/2 Tablet(s) PO Q6 as needed 11/09/2016 12/03/2016 Inactive bisoprolol 5 mg-hydrochlorothiazide 6.25 mg tablet RxNorm: 601469 TAKE ONE TABLET BY MOUTH DAILY 11/08/2016 02/05/2017 Inactive oxycodone 20 mg tablet RxNorm: 4589632 1/2 Tablet(s) PO Q6 as needed 10/05/2016 11/03/2016 Inactive oxycodone 20 mg tablet RxNorm: 6869208 1/2 Tablet(s) PO Q6 as needed 09/06/2016 10/04/2016 Inactive oxycodone 20 mg tablet RxNorm: 8147262 1/2 Tablet(s) PO Q6 as needed 08/07/2016 09/05/2016 Inactive oxycodone 20 mg tablet RxNorm: 6562939 1/2 Tablet(s) PO Q6 as needed 07/04/2016 08/06/2016 Inactive oxycodone 20 mg tablet RxNorm: 6920449 1/2 Tablet(s) PO Q6 as needed 05/29/2016 07/03/2016 Inactive levothyroxine 150 mcg tablet RxNorm: 301816 1 Tablet(s) PO daily 04/10/2016 04/09/2016 Inactive [SAVINGS FOR NON-COVERED DRUGS -- BIN:[id number], PCN: ASPROD1, Group: XXXXX, ID# [id number], Questions: . THIS IS NOT INSURANCE.] oxycodone 20 mg tablet RxNorm: 3379100 1/2 Tablet(s) PO Q6 as needed 04/10/2016 05/28/2016 Inactive levothyroxine 150 mcg tablet RxNorm: 464503 1 Tablet(s) PO daily 04/10/2016 10/06/2016 Inactive [SAVINGS FOR NON-COVERED DRUGS -- BIN:[id number], PCN: ASPROD1, Group: XXXXX, ID# XXXXXXX, Questions: . THIS IS NOT INSURANCE.] bisoprolol 5 mg-hydrochlorothiazide 6.25 mg tablet RxNorm: 344118 1 Tablet(s) PO daily 02/16/2016 12/31/2017 Inactive oxycodone 20 mg tablet RxNorm: 6407899 1/2 Tablet(s) PO Q6 as needed 02/16/2016 04/09/2016 Inactive oxycodone 20 mg tablet RxNorm: 3037284 1/2 Tablet(s) PO Q6 as needed 01/04/2016 02/15/2016 Inactive bisoprolol 5 mg-hydrochlorothiazide 6.25 mg tablet RxNorm: 770674 1 Tablet(s) PO daily 11/19/2015 01/17/2016 Inactive bisoprolol 5 mg-hydrochlorothiazide 6.25 mg tablet RxNorm: 763640 1 Tablet(s) PO daily 11/04/2015 11/18/2015 Inactive oxycodone 20 mg tablet RxNorm: 3623723 1/2 Tablet(s) PO Q6 as needed 10/27/2015 01/03/2016 Inactive levothyroxine 150 mcg tablet RxNorm: 696339 1 Tablet(s) PO daily 08/26/2015 02/21/2016 Inactive [SAVINGS FOR NON-COVERED DRUGS -- BIN:[id number], PCN: ASPROD1, Group: XXXXX, ID# [id number], Questions: . THIS IS NOT INSURANCE.] bisoprolol 5 mg-hydrochlorothiazide 6.25 mg tablet RxNorm: 548020 1 Tablet(s) PO daily 08/26/2015 10/24/2015 Inactive oxycodone 10 mg tablet RxNorm: 1835668 1 Tablet(s) PO Q6 as needed 05/06/2015 10/26/2015 Inactive levothyroxine 150 mcg tablet RxNorm: 317858 1 Tablet(s) PO daily 02/05/2015 08/03/2015 Inactive [SAVINGS FOR NON-COVERED DRUGS -- BIN:[id number], PCN: ASPROD1, Group: XXXXX, ID# [id number], Questions: . THIS IS NOT INSURANCE.] Vitamin D2 50,000 unit capsule RxNorm: 165420 1 Capsule(s) PO weekly 02/05/2015 05/05/2015 Inactive [SAVINGS FOR NON-COVERED DRUGS -- BIN:[id number], PCN: ASPROD1, Group: XXXXX, ID# XXXXXXX, Questions: . THIS IS NOT INSURANCE.] Vitamin D2 50,000 unit capsule RxNorm: 520620 1 Capsule(s) PO weekly 02/05/2015 02/04/2015 Inactive bisoprolol 5 mg-hydrochlorothiazide 6.25 mg tablet RxNorm: 450932 1 Tablet(s) PO daily 01/26/2015 02/24/2015 Inactive levothyroxine 200 mcg tablet RxNorm: 047973 1 Tablet(s) PO daily 01/26/2015 01/25/2015 Inactive levothyroxine 200 mcg tablet RxNorm: 826667 1 Tablet(s) PO every other day 01/26/2015 02/04/2015 Inactive [SAVINGS FOR NON-COVERED DRUGS -- BIN:762549, PCN: ASPROD1, Group: XXXXX, ID# XXXXXXX, Questions: . THIS IS NOT INSURANCE.] aspirin 81 mg chewable tablet RxNorm: 884728 1 Tablet(s) PO daily No Start Date Active Plavix 75 mg tablet RxNorm: 741153 1 Tablet(s) PO daily manage by Dr Baig No Start Date Active simvastatin 40 mg tablet RxNorm: 375959 1 Tablet(s) PO QHS managed by Dr Baig No Start Date Active Colcrys 0.6 mg tablet RxNorm: 356116 2 tabs at onset then may repeat 1 tab in 1 hours if needed- Tablet(s) PO No Start Date 04/08/2017 Inactive then take daily until gout resolved aspirin 325 mg tablet RxNorm: 869163 1 Tablet(s) PO daily No Start Date 05/03/2016 Inactive levothyroxine 75 mcg tablet RxNorm: 242517 1 Tablet(s) PO every other day No Start Date 02/04/2015 Inactive takes qod with 200mcg oxycodone 10 mg tablet RxNorm: 0048375 1 Tablet(s) PO Q6 as needed No Start Date 05/05/2015 Inactive ketoconazole 2 % topical cream RxNorm: 345528 1 Gram(s) TOP BID to affected area until healed No Start Date 08/02/2017 Inactive indomethacin oral RxNorm: 5781 oral No Start Date 03/21/2017 Inactive Medication Administered No Medication Administered data Immunizations Vaccine Codes Date Status Pneumococcal (Adult) CVX: 33 02/05/2018 completed Pneumococcal (Adult) CVX: 133 11/30/2016 completed Assessments Condition Codes Effective Dates Chronic pain syndrome ICD-10: G89.4 ICD-9: 338.4 02/25/2019 Chronic kidney disease, stage 3 (moderate) ICD-10: N18.3 ICD-9: 585.3 02/25/2019 Essential (primary) hypertension ICD-10: I10 ICD-9: 401.1 02/25/2019 Type 2 diabetes mellitus with hyperglycemia ICD-10: E11.65 ICD-9: 250.00 02/25/2019 Cellulitis of left lower limb ICD-10: [...] 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 ICD-9: 274.19 03/22/2017 Dysuria ICD-10: [...] Code Item Item Code Result Date %Hba1C Ark783 % HbA1c 89454- 6 9.2 % 02/25/2019 %Hba1C Xsr989 Gluc Ave 217 mg/dL 02/25/2019 Comp Metabolic Jrw694 NA 136 mEq/L 02/25/2019 Comp Metabolic Itv709 K 4.8 mEq/L 02/25/2019 Comp Metabolic Ycb184 CL 95 mEq/L 02/25/2019 Comp Metabolic Qmh831 CO2 36.0 mEq/L 02/25/2019 Comp Metabolic Zyt402 ANION GAP 10 02/25/2019 Comp Metabolic Vge791 GLUCOSE 255 mg/dL 02/25/2019 Comp Metabolic Zcr055 Creat 1.2 mg/dL 02/25/2019 Comp Metabolic Vmg558 eGFR 62 ml/min/1.73m2 02/25/2019 Comp Metabolic Flv273 BUN 29 mg/dL 02/25/2019 Comp Metabolic Omb214 B/C Ratio 24.0 Ratio 02/25/2019 Comp Metabolic Oun137 CALCIUM 9.0 mg/dL 02/25/2019 Comp Metabolic Bbm397 ALK PHOS 102 U/L 02/25/2019 Comp Metabolic Bpn199 AST(SGOT) 12 U/L 02/25/2019 Comp Metabolic Qql061 ALT(SGPT) 9 U/L 02/25/2019 Comp Metabolic Dnw866 BILI T 0.6 mg/dL 02/25/2019 Comp Metabolic Tnu334 ALBUMIN 3.8 g/dL 02/25/2019 Comp Metabolic Zhw249 TPRO 6.6 g/dL 02/25/2019 Comp Metabolic Onq001 GLOB 2.8 g/dL 02/25/2019 Comp Metabolic Dud713 A/G Ratio 1.4 Ratio 02/25/2019 Comp Metabolic Rjg017 Osmo 286 mOsmo 02/25/2019 %Hba1C Ecg592 % HbA1c 54509- 6 6.4 % 08/30/2018 %Hba1C Pgy466 Gluc Ave 137 mg/dL 08/30/2018 Culture Urine [id number] URINE CULTURE SEE NOTES 02/22/2018 Urine Culture [...] 24.5 pg 02/20/2018 Cbc With Differential Ord2 [place]% 8.9 % 02/20/2018 Cbc With Differential Ord2 [...] 0.81 K/ul 02/20/2018 Cbc With Differential Ord2 [place] ABS# 0.7 K/ul 02/20/2018 Cbc With Differential Ord2 Eos ABS# 0.4 K/ul 02/20/2018 Cbc With Differential Ord2 Baso ABS# 0.0 K/ul 02/20/2018 %Hba1C Tim642 % HbA1c 93965- 6 7.7 % 02/20/2018 %Hba1C Hxm988 Gluc Ave 174 mg/dL 02/20/2018 Lipase Czi607 LIPASE 17 U/L 02/20/2018 Microalbumin Ulv831 MicroAlb 6.5 mg/dL 02/20/2018 Amylase Ord34 AMYLASE 15 U/L 02/20/2018 Free T4 Owo042 FREE T4 0.61 ng/dL 02/20/2018 Lipid Ord30 CHOL 203 mg/dL 02/20/2018 Lipid Ord30 HDL 7.0 mg/dl 02/20/2018 Lipid Ord30 TRIG 271 mg/dL 02/20/2018 Lipid Ord30 LDL 142 mg/dL 02/20/2018 Lipid Ord30 C/HDL 29.0 Ratio 02/20/2018 Comp Metabolic Asx317 NA 134 mEq/L 02/20/2018 Comp Metabolic Pzm091 K 3.6 mEq/L 02/20/2018 Comp Metabolic Ktv815 CL 96 mEq/L 02/20/2018 Comp Metabolic Yif477 CO2 29.0 mEq/L 02/20/2018 Comp Metabolic Ppl127 ANION GAP 13 02/20/2018 Comp Metabolic Mze883 GLUCOSE 165 mg/dL 02/20/2018 Comp Metabolic Ibu851 Creat 1.2 mg/dL 02/20/2018 Comp Metabolic Rnl121 eGFR 63 ml/min/1.73m2 02/20/2018 Comp Metabolic Zpg848 BUN 14 mg/dL 02/20/2018 Comp Metabolic Zxb231 B/C Ratio 11.6 Ratio 02/20/2018 Comp Metabolic Wbq599 CALCIUM 8.5 mg/dL 02/20/2018 Comp Metabolic Uui036 ALK PHOS 633 U/L 02/20/2018 Comp Metabolic Idu779 AST(SGOT) 112 U/L 02/20/2018 Comp Metabolic Qni848 ALT(SGPT) 148 U/L 02/20/2018 Comp Metabolic Bjq320 BILI T 6.8 mg/dL 02/20/2018 Comp Metabolic Icc884 ALBUMIN 3.3 g/dL 02/20/2018 Comp Metabolic Tgn385 TPRO 5.9 g/dL 02/20/2018 Comp Metabolic Lhk352 GLOB 2.6 g/dL 02/20/2018 Comp Metabolic Ciq188 A/G Ratio 1.3 Ratio 02/20/2018 Comp Metabolic Aky590 Osmo 272 mOsmo 02/20/2018 Total Psa Ord10 [...] Metabolic Ord15 CALCIUM 9.2 mg/dL 11/09/2017 %Hba1C Xel564 % HbA1c 96954- 6 8.0 % 11/09/2017 %Hba1C Ple158 Gluc Ave 183 mg/dL 11/09/2017 Metabolic Ord15 [...] Ord15 CALCIUM 8.7 mg/dL 06/25/2017 Culture Wound [id number] WOUND CULTURE SEE NOTES 04/09/2017 Culture Wound [id number] Continued Results 04/09/2017 Amylase Ord34 AMYLASE 19 [...] 27.9 pg 03/22/2017 Cbc With Differential Ord2 [place]% 8.3 % 03/22/2017 Cbc With Differential Ord2 [...] 1.35 K/ul 03/22/2017 Cbc With Differential Ord2 [place] ABS# 1.4 K/ul 03/22/2017 Cbc With Differential Ord2 Eos ABS# 0.2 K/ul 03/22/2017 Cbc With Differential Ord2 Baso ABS# 0.0 K/ul 03/22/2017 Comp Metabolic Poz754 NA 134 mEq/L 03/22/2017 Comp Metabolic Kir026 K 4.5 mEq/L 03/22/2017 Comp Metabolic Gpp328 CL 93 mEq/L 03/22/2017 Comp Metabolic Nuc248 CO2 31.0 mEq/L 03/22/2017 Comp Metabolic Cgu255 ANION GAP 15 03/22/2017 Comp Metabolic Gnv255 GLUCOSE 198 mg/dL 03/22/2017 Comp Metabolic Ihj668 Creat 1.5 mg/dL 03/22/2017 Comp Metabolic Hfx722 eGFR 50 ml/min/1.73m2 03/22/2017 Comp Metabolic Fir109 BUN 32 mg/dL 03/22/2017 Comp Metabolic Xvh309 B/C Ratio 21.6 Ratio 03/22/2017 Comp Metabolic Vqy263 CALCIUM 8.4 mg/dL 03/22/2017 Comp Metabolic Bor493 ALK PHOS 245 U/L 03/22/2017 Comp Metabolic Djr128 AST(SGOT) 18 U/L 03/22/2017 Comp Metabolic Sll489 ALT(SGPT) 17 U/L 03/22/2017 Comp Metabolic Iuv712 BILI T 0.8 mg/dL 03/22/2017 Comp Metabolic Csn692 ALBUMIN 2.9 g/dL 03/22/2017 Comp Metabolic Uuo237 TPRO 6.3 g/dL 03/22/2017 Comp Metabolic Rti573 GLOB 3.4 g/dL 03/22/2017 Comp Metabolic Wbu480 A/G Ratio 0.8 Ratio 03/22/2017 Comp Metabolic Ngc040 Osmo 281 mOsmo 03/22/2017 Lipase Pvb557 LIPASE 12 U/L 03/22/2017 Comp Metabolic Lqe454 NA 142 mEq/L 03/09/2017 Comp Metabolic Wcz626 K 4.8 mEq/L 03/09/2017 Comp Metabolic Abz607 CL 103 mEq/L 03/09/2017 Comp Metabolic Hal346 CO2 30.0 mEq/L 03/09/2017 Comp Metabolic Aoc355 ANION GAP 14 03/09/2017 Comp Metabolic Ura473 GLUCOSE 152 mg/dL 03/09/2017 Comp Metabolic Plc418 Creat 1.3 mg/dL 03/09/2017 Comp Metabolic Uxq772 eGFR 56 ml/min/1.73m2 03/09/2017 Comp Metabolic Dwp745 BUN 23 mg/dL 03/09/2017 Comp Metabolic Vhu541 B/C Ratio 17.3 Ratio 03/09/2017 Comp Metabolic Dgd409 CALCIUM 8.5 mg/dL 03/09/2017 Comp Metabolic Bgf096 ALK PHOS 97 U/L 03/09/2017 Comp Metabolic Dbu331 AST(SGOT) 10 U/L 03/09/2017 Comp Metabolic Fvw439 ALT(SGPT) 6 U/L 03/09/2017 Comp Metabolic Dht380 BILI T 0.4 mg/dL 03/09/2017 Comp Metabolic Dih865 ALBUMIN 3.4 g/dL 03/09/2017 Comp Metabolic Qeq398 TPRO 6.2 g/dL 03/09/2017 Comp Metabolic Vsy496 GLOB 2.8 g/dL 03/09/2017 Comp Metabolic Avk169 A/G Ratio 1.2 Ratio 03/09/2017 Comp Metabolic Igj220 Osmo 290 mOsmo 03/09/2017 Free T4 Ehf755 FREE T4 0.86 ng/dL 03/08/2017 Cbc With [...] 28.2 pg 03/08/2017 Cbc With Differential Ord2 [place]% 8.7 % 03/08/2017 Cbc With Differential Ord2 [...] 1.63 K/ul 03/08/2017 Cbc With Differential Ord2 [place] ABS# 0.9 K/ul 03/08/2017 Cbc With Differential Ord2 Eos ABS# 0.5 K/ul 03/08/2017 Cbc With Differential Ord2 Baso ABS# 0.0 K/ul 03/08/2017 Tsh Ord6 hTSH II 4.52 uIU/mL 03/08/2017 %Hba1C Hwv720 % HbA1c 07914- 6 8.5 % 03/08/2017 %Hba1C Whs946 Gluc Ave 197 mg/dL 03/08/2017 %Hba1C Rqt428 % HbA1c 82094- 6 9.8 % 12/04/2016 %Hba1C Ycr544 Gluc Ave 235 mg/dL 12/04/2016 Tsh Ord6 hTSH II 10.65 uIU/mL 11/30/2016 Comp Metabolic Wmm520 NA 134 mEq/L 11/30/2016 Comp Metabolic Bjx875 K 5.0 mEq/L 11/30/2016 Comp Metabolic Uxl822 CL 95 mEq/L 11/30/2016 Comp Metabolic Bvy573 CO2 34.0 mEq/L 11/30/2016 Comp Metabolic Jrr533 ANION GAP 10 11/30/2016 Comp Metabolic Akb413 GLUCOSE 226 mg/dL 11/30/2016 Comp Metabolic Ybr463 Creat 1.3 mg/dL 11/30/2016 Comp Metabolic Jjo818 eGFR 56 ml/min/1.73m2 11/30/2016 Comp Metabolic Lgc064 BUN 21 mg/dL 11/30/2016 Comp Metabolic Hge734 B/C Ratio 15.7 Ratio 11/30/2016 Comp Metabolic Vuj509 CALCIUM 8.9 mg/dL 11/30/2016 Comp Metabolic Dds862 ALK PHOS 112 U/L 11/30/2016 Comp Metabolic Szb643 AST(SGOT) 9 U/L 11/30/2016 Comp Metabolic Itm288 ALT(SGPT) 7 U/L 11/30/2016 Comp Metabolic Fcd640 BILI T 0.6 mg/dL 11/30/2016 Comp Metabolic Hfs923 ALBUMIN 3.6 g/dL 11/30/2016 Comp Metabolic Dwc599 TPRO 6.4 g/dL 11/30/2016 Comp Metabolic Ggo753 GLOB 2.9 g/dL 11/30/2016 Comp Metabolic Zri422 A/G Ratio 1.2 Ratio 11/30/2016 Comp Metabolic Job335 Osmo 278 mOsmo 11/30/2016 Lipid Ord30 CHOL [...] 30.6 pg 11/30/2016 Cbc With Differential Ord2 [place]% 7.9 % 11/30/2016 Cbc With Differential Ord2 [...] 1.34 K/ul 11/30/2016 Cbc With Differential Ord2 [place] ABS# 0.8 K/ul 11/30/2016 Cbc With Differential Ord2 Eos ABS# 0.3 K/ul 11/30/2016 Cbc With Differential Ord2 Baso ABS# 0.0 K/ul 11/30/2016 Free T4 Iux547 FREE T4 0.89 ng/dL 11/30/2016 Review of [...] hygiene 02/25/2019 None Full Exam - General 1995 Eyes conjunctiva/eyelids Overall: conjunctiva clear 02/25/2019 None [...] Codes Date ADMIN PNEUMOCOCCAL VACCINE SNOMED CT: 16400716 CPT-4: G0009 02/05/2018 Pneumococcal Polysaccharide Vaccine, 23-Valent, Ad CPT-4: 02050 02/05/2018 PPPS, SUBSEQ VISIT CPT- 4: G0439 11/30/2017 URINALYSIS NONAUTO W/O SCOPE CPT-4: 90975 03/22/2017 URINALYSIS NONAUTO W/O SCOPE CPT-4: 02940 03/21/2017 PPPS, SUBSEQ VISIT CPT- 4: G0439 11/30/2016 PNEUMOCOCCAL VACC 13 JAVIER IM Formatting Model/CDA Sections, Assigned to SNOMED CT: [id number] CPT-4: 61052Rrhzfwy 11/30/2016 ADMIN PNEUMOCOCCAL VACCINE SNOMED CT: [id number] CPT-4: G0009 11/30/2016 Vital Signs Date Vital 02/25/2019 Blood Pressure 1: 110/58 Code: 8480-6 BMI: 38.3 Code: 77115-5 Heart Rate 1: 47 bpm Height: 5'10" SpO2: 97% Weight: 267 lbs 10/18/2018 Blood Pressure 1: 118/70 Code: 8480-6 BMI: 39.0 Code: 58970-0 Heart Rate 1: 86 bpm Height: 5'10" SpO2: 95% Weight: 272 lbs 10/14/2018 Blood Pressure 1: 120/56 Code: 8480-6 Heart Rate 1: 67 bpm Height: 5'10" SpO2: 92% 10/10/2018 Blood Pressure 1: 126/70 Code: 8480-6 BMI: 34.7 Code: 76945-5 Heart Rate 1: 80 bpm Height: 5'10" SpO2: 96% Temperature: 37.1 (C) / 98.7 (F) Weight: 242 lbs 10/04/2018 Blood Pressure 1: 12070 Code: 8480-6 Height: 5'10" SpO2: 96% 08/29/2018 Blood Pressure 1: 104/60 Code: 8480-6 BMI: 34.6 Code: 26554-8 Heart Rate 1: 68 bpm Height: 5'10" SpO2: 98% Weight: 241 lbs 02/25/2018 Blood Pressure 1: 12070 Code: 8480-6 BMI: 37.0 Code: 43389-4 Heart Rate 1: 51 bpm Height: 5'10" SpO2: 97% Weight: 258 lbs 02/20/2018 Blood Pressure 1: 12470 Code: 8480-6 BMI: 38.0 Code: 42605-8 Heart Rate 1: 60 bpm Height: 5'10" SpO2: 96% Weight: 265 lbs 02/05/2018 Blood Pressure 1: 116 Code: 8480-6 BMI: 38.0 Code: 90640-3 Heart Rate 1: 63 bpm Height: 5'10" SpO2: 98% Weight: 265 lbs 11/30/2017 Blood Pressure 1: 132/60 Code: 8480-6 BMI: 37.0 Code: 88692-0 Heart Rate 1: 100 bpm Height: 5'10" SpO2: 96% Waist Measure (cm): 122 cm Weight: 258 lbs 11/08/2017 Blood Pressure 1: 126/64 Code: 8480-6 BMI: 37.2 Code: 05563-0 Heart Rate 1: 92 bpm Height: 5'10" SpO2: 94% Weight: 259 lbs 09/20/2017 Blood Pressure 1: 122/68 Code: 8480-6 BMI: 36.9 Code: 52239-5 Heart Rate 1: 57 bpm Height: 5'10" SpO2: 96% Weight: 257 lbs 06/25/2017 Blood Pressure 1: 124/68 Code: 8480-6 BMI: 37.0 Code: 59594-6 Height: 5'10" Weight: 258 lbs 06/07/2017 Blood Pressure 1: 122/64 Code: 8480-6 BMI: 37.0 Code: 88820-9 Heart Rate 1: 60 bpm Height: 5'10" SpO2: 94% Temperature: 36.4 (C) / 97.6 (F) Weight: 258 lbs 05/03/2017 Blood Pressure 1: 118 Code: 8480-6 BMI: 38.2 Code: 49597-1 Heart Rate 1: 52 bpm Height: 5'10" SpO2: 98% Weight: 266 lbs 04/02/2017 Blood Pressure 1: 118 Code: 8480-6 BMI: 38.2 Code: 06885-1 Heart Rate 1: 53 bpm Height: 5'10" SpO2: 93% Weight: 266 lbs 03/26/2017 Blood Pressure 1: 11462 Code: 8480-6 BMI: 38.3 Code: 15036-3 Height: 5'10" Weight: 267 lbs 03/22/2017 Blood Pressure 1: 12264 Code: 8480-6 BMI: 40.0 Code: 44412-6 Heart Rate 1: 52 bpm Height: 5'10" SpO2: 94% Weight: 279 lbs 03/08/2017 Blood Pressure 1: 124/70 Code: 8480-6 BMI: 39.4 Code: 00791-3 Heart Rate 1: 51 bpm Height: 5'10" SpO2: 94% Weight: 274 lbs 8 oz 12/06/2016 Blood Pressure 1: 126/62 Code: 8480-6 BMI: 40.3 Code: 36985-8 Heart Rate 1: 50 bpm Height: 5'10" SpO2: 94% Weight: 281 lbs 11/30/2016 Blood Pressure 1: 112/62 Code: 8480-6 BMI: 40.3 Code: 19524-5 Heart Rate 1: 52 bpm Height: 5'10" SpO2: 93% Waist Measure (cm): 135 cm Weight: 281 lbs 11/28/2016 Blood Pressure 1: 132/72 Code: 8480-6 BMI: 40.3 Code: 73850-1 Heart Rate 1: 50 bpm Height: 5'10" Weight: 281 lbs 05/04/2016 Blood Pressure 1: 128/78 Code: 8480-6 BMI: 38.5 Code: 71724-2 Heart Rate 1: 74 bpm Height: 5'10" SpO2: 98% Weight: 268 lbs 8 oz 11/04/2015 Blood Pressure 1: 136/60 Code: 8480-6 BMI: 38.0 Code: 16414-7 Heart Rate 1: 55 bpm Height: 5'10" SpO2: 94% Weight: 265 lbs 07/30/2015 Blood Pressure 1: 128/74 Code: 8480-6 BMI: 38.0 Code: 33006-7 Heart Rate 1: 47 bpm Height: 5'10" SpO2: 97% Weight: 265 lbs 01/26/2015 Blood Pressure 1: 122/64 Code: 8480-6 BMI: 34.0 Code: 03873-6 Heart Rate 1: 68 bpm Height: 5'10" [...] data Encounters Encounter Performer Location Codes Date 34072 EST. PATIENT, LEVEL IV Diagnosis: Essential (primary) hypertension[ICD10: I10] Diagnosis: Type 2 diabetes mellitus with hyperglycemia[ICD10: E11.65] Diagnosis: Chronic pain syndrome[ICD10: G89.4] Diagnosis: Chronic kidney disease, stage 3 (moderate)[ICD10: N18.3] Sarah Sanchez MD, [facility] CPT-4: 11448 02/25/2019 94980 EST. PATIENT, LEVEL III Diagnosis: Localized edema[ICD10: R60.0] Diagnosis: Cellulitis of left lower limb[ICD10: L03.116] Diagnosis: Cellulitis of right lower limb[ICD10: L03.115] Kiki Sanchez MD, [facility] CPT-4: 64956 10/18/2018 97831 EST. PATIENT, LEVEL III Diagnosis: Localized edema[ICD10: R60.0] Diagnosis: Cellulitis of left lower limb[ICD10: L03.116] Diagnosis: Cellulitis of right lower limb[ICD10: L03.115] Diagnosis: Chronic obstructive pulmonary disease, unspecified[ICD10: J44.9] Diagnosis: Weakness[ICD10: R53.1] Kiki Sanchez MD, [facility] CPT-4: 19224 10/14/2018 [id number] EST. PATIENT, LEVEL III Diagnosis: Localized edema[ICD10: R60.0] Diagnosis: Cellulitis of left lower limb[ICD10: L03.116] Diagnosis: Cellulitis of right lower limb[ICD10: L03.115] Kiki Sanchez MD, [facility] CPT-4: 47606 10/10/2018 ([id number]) 02930 EST. PATIENT, LEVEL IV Diagnosis: Type 2 diabetes mellitus with foot ulcer[ICD10: E11.621] Diagnosis: Essential (primary) hypertension[ICD10: I10] Diagnosis: Malignant neoplasm of prostate[ICD10: C61] Diagnosis: Chronic obstructive pulmonary disease, unspecified[ICD10: J44.9] Diagnosis: Hypoxemia[ICD10: R09.02] Sarah Sanchez MD, [facility] CPT-4: 53358 10/04/2018 ([id number]) 03345 EST. PATIENT, LEVEL IV Diagnosis: Type 2 diabetes mellitus with hyperglycemia[ICD10: E11.65] Diagnosis: Essential (primary) hypertension[ICD10: I10] Diagnosis: Malignant neoplasm of prostate[ICD10: C61] Sarah Sanchez MD, [facility] CPT-4: 45225 08/29/2018 ([id number]) 34630 EST. PATIENT, LEVEL IV Diagnosis: Malignant neoplasm of prostate[ICD10: C61] Dorene Sanchez MD, [facility] CPT-4: 93463 02/25/2018 01948 EST. PATIENT, LEVEL IV Diagnosis: Generalized abdominal pain[ICD10: R10.84] Diagnosis: Unspecified jaundice[ICD10: R17] Diagnosis: Gross hematuria[ICD10: R31.0] Kiki Sanchez MD, [facility] CPT-4: 61189 02/20/2018 ([id number]) 29171 EST. PATIENT, LEVEL IV Diagnosis: Type 2 diabetes mellitus with hyperglycemia[ICD10: E11.65] Diagnosis: Essential (primary) hypertension[ICD10: I10] Diagnosis: Chronic kidney disease, stage 3 (moderate)[ICD10: N18.3] Diagnosis: Chronic pain syndrome[ICD10: G89.4] Diagnosis: Other specified hypothyroidism[ICD10: E03.8] Diagnosis: Encounter for screening for malignant neoplasm of prostate[ICD10: Z12.5] Diagnosis: Encounter for immunization[ICD10: Z23] Sarah Sanchez MD, [facility] CPT-4: 26625 02/05/2018 ([id number]) 29725 EST. PATIENT, LEVEL IV Diagnosis: Type 2 diabetes mellitus with hyperglycemia[ICD10: E11.65] Diagnosis: Essential (primary) hypertension[ICD10: I10] Dorene Sanchez MD, [facility] CPT-4: 66928 11/08/2017 ([id number]) 45600 EST. PATIENT, LEVEL IV Diagnosis: Type 2 diabetes mellitus with hyperglycemia[ICD10: E11.65] Diagnosis: Chronic pain syndrome[ICD10: G89.4] Diagnosis: Essential (primary) hypertension[ICD10: I10] Diagnosis: Chronic kidney disease, stage 3 (moderate)[ICD10: N18.3] Diagnosis: Localized edema[ICD10: R60.0] Dorene Sanchez MD, [facility] CPT-4: 13205 09/20/2017 ([id number]) 93926 EST. PATIENT, LEVEL III Diagnosis: Type 2 diabetes mellitus with hyperglycemia[ICD10: E11.65] Sarah Sanchez MD, [facility] CPT-4: 48063 06/25/2017 ([id number]) 95966 EST. PATIENT, LEVEL III Diagnosis: Cellulitis of left lower limb[ICD10: L03.116] Sarah Sanchez MD, [facility] CPT-4: 65990 06/07/2017 ([id number]) 02309 EST. PATIENT, LEVEL III Diagnosis: Localized edema[ICD10: R60.0] Diagnosis: Type 2 diabetes mellitus with foot ulcer[ICD10: E11.621] Sarah aSnchez MD, [facility] CPT-4: 13713 05/03/2017 ([id number]) 11604 EST. PATIENT, LEVEL III Diagnosis: Cellulitis of left lower limb[ICD10: L03.116] Diagnosis: Localized edema[ICD10: R60.0] Sarah Sanchez MD, [facility] CPT-4: 34107 04/02/2017 ([id number]) Miscellaneous no charge Diagnosis: Localized edema[ICD10: R60.0] Diagnosis: Cellulitis of left lower limb[ICD10: L03.116] Sarah Sanchez MD, [facility] CPT-4: 98206 03/26/2017 ([id number]) 65041 EST. 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 PATIENT, LEVEL IV Diagnosis: Type 2 diabetes mellitus with hyperglycemia[ICD10: E11.65] Diagnosis: Other specified hypothyroidism[ICD10: E03.8] Diagnosis: Essential (primary) hypertension[ICD10: I10] Sarah Sanchez MD, [facility] CPT-4: 52225 03/08/2017 ([id number]) 77188 EST. PATIENT, LEVEL III Diagnosis: Type 2 diabetes mellitus with hyperglycemia[ICD10: E11.65] Diagnosis: Other specified hypothyroidism[ICD10: E03.8] Sarah Sanchez MD, [facility] CPT-4: 72371 12/06/2016 ([id number]) 07827 EST. PATIENT, LEVEL IV Diagnosis: Essential (primary) hypertension[ICD10: I10] Diagnosis: Chronic kidney disease, stage 3 (moderate)[ICD10: N18.3] Dorene Sanchez MD, [facility] CPT-4: 08559 11/28/2016 ([id number]) 89027 EST. PATIENT, LEVEL IV Diagnosis: Essential (primary) hypertension[ICD10: I10] Diagnosis: Chronic pain syndrome[ICD10: G89.4] Diagnosis: Chronic kidney disease, stage 3 (moderate)[ICD10: N18.3] Diagnosis: Vitamin B12 deficiency anemia due to intrinsic factor deficiency[ICD10: D51.0] Diagnosis: Other specified hypothyroidism[ICD10: E03.8] Dorene Sanchez MD, [facility] CPT-4: 24142 05/04/2016 77791 EST. PATIENT, LEVEL III Diagnosis: Chronic pain syndrome[ICD10: G89.4] Diagnosis: Essential (primary) hypertension[ICD10: I10] Diagnosis: Other specified hypothyroidism[ICD10: E03.8] Kiki Sanchez MD, [facility] CPT-4: 54143 11/04/2015 50274 EST. PATIENT, LEVEL III Diagnosis: Chronic pain syndrome[ICD10: G89.4] Diagnosis: Essential (primary) hypertension[ICD10: I10] [facility] CPT-4: 54872 07/30/2015 ([id number]) OFFICE/OUTPATIENT VISIT NEW Diagnosis: ESSENTIAL HYPERTENSION[ICD9: 401.9] Diagnosis: HYPOTHYROIDISM[ICD9: 244.9] Diagnosis: ANEMIA[ICD9: 285.9] Diagnosis: Vitamin B12 deficiency[ICD9: 266.2] Diagnosis: CHRONIC PAIN SYNDROME[ICD9: 338.4] Diagnosis: Chronic renal insufficiency, stage III (moderate)[ICD9: 585.3] Diagnosis: GOUT[ICD9: 274.9] [facility] CPT-4: 18722 01/26/2015 Plan of Care Planned Activity Notes [...] of over-medication. 02/25/2019 Appointment: Sarah Hernandes WPtel: [address] [place], [place] [phone] (15 min) Moderate 02/25/2019 Patient Education: Patient [...] discharge. 10/18/2018 Appointment: [facility] [phone] [facility] (30 min) Complex 10/18/2018 Patient Education: [...] edema. 10/14/2018 Appointment: [facility]jivar [facility] [phone] [facility] (30 min) Complex 10/14/2018 Patient Education: [...] symptoms, worsening redness, warmth, discharge. 10/10/2018 Appointment: Kiik Menjivar WPtel: [facility] (30 min) Complex 10/10/2018 Patient Education: Patient Medication Summary Completed 10/10/2018 Visit Plan: DM with peripheral neuropathy-paperwork completed for diabetic shoes and will fax to Dr Bauer HTN-controlled -no changes Ianmlqsrn-[facility]MC-QJW-prostate cancer with mets- patient qualifies for oxygen-oxy gen saturation dropped to 86% on room air during ambulation but increased to 99% on 2L NC at rest-will send orders to [facility] for continue oxygen at 2L per nasal cannula 10/04/2018 Appointment: Sarah Hernandes WPtel: [phone] (30 min) Complex 10/04/2018 Patient Education: [...] Sarah Hernandes WPtel: [phone] (15 min) Moderate 08/29/2018 Patient Education: Patient Medication Summary Completed 08/29/2018 Referral: Edgard Rivera MD WPtel: Via [address] with Dr. Moreno. Patient informed. Referral [...] Dorene Sanchez WPtel: [facility] (15 min) Moderate 02/25/2018 Patient Education: Patient Medication Summary Completed 02/25/2018 Care Plan: Referral Order SNOMED-CT : [id number] Pending 02/25/2018 Visit Plan: Intermittent abdominal pain, jaundice, itching - will check labs and treat as indicated - pt is to go to the ER with any acute change in symptoms or any acute concerns. 02/20/2018 Appointment: Kiki Menjivar WPtel: [address] [place], [place] [phone] (30 min) Complex 02/20/2018 Patient Education: [...] control. 02/05/2018 Appointment: Sarah Hernandes WPtel: [phone] [phone] (30 min) Complex 02/05/2018 Patient Education: [...] surrogate. 11/30/2017 Appointment: [facility] [phone] [phone] [facility] - Annual Wellness Visit 11/30/2017 [...] 11/08/2017 App[facility]ment: [phone] [facility] (15 min) Moderate 11/08/2017 Patient Education: [...] 09/20/2017 Appointment: Dore[facility] Sanchez [facility]Ptel[facility] [phone] [facility] (15 min) Moderate 09/20/2017 Patient Education: [...] Sarah Hernandes WPtel: [phone] (30 min) Complex 06/25/2017 Patient Education: Patient Medication Summary Completed 06/25/2017 Appointment: Sarah Hernandes WPtel: [phone] (30 min) Complex 06/22/2017 Visit Plan: Cellulitis - start oral antibiotics as previously directed, return to clinic as previously directed, call for acute change in symptoms, worsening redness, warmth, discharge. 06/07/2017 Appointment: Sarah Hernandes WPtel: [phone] (30 min) Complex 06/07/2017 Patient Education: Patient Medication Summary Completed 06/07/2017 Patient Education: Obesity Completed 06/07/2017 Appointment: Dorene Sanchez WPtel: [facility] (15 min) Moderate 05/31/2017 Visit Plan: Edema-significantly improved-no changes Ulcer-left lower leg and foot-seeing Dr Norwood at wound care-appt scheduled with Dr Frausto for vascular evaluation 05/03/2017 Appointment: Sarah Hernandes WPtel: [phone] (15 min) Moderate 05/03/2017 Patient Education: Patient Medication Summary Completed 05/03/2017 Patient Education: Obesity Completed 05/03/2017 Visit Plan: Cbumuwzcba-lyeecwbgv-ougylal to finish abx-no further treatment indicated Edema-significantly improved-no longer weeping-continue unna boots twice weekly with home health 04/02/2017 Appointment: [facility] [phone] [phone] (30 min) Complex 04/02/2017 Patient Education: Patient Medication Summary Completed 04/02/2017 Patient Education: Obesity Completed 04/02/2017 Visit Plan: Cellulitis-left leg-continue levaquin Edema-increase lasix/potassium-consult [facility] for unna boots/dressing changes 03/26/2017 Appointment: Cecilio Sarah [facility]Ptel[facility] [phone] [phone] (15 min) Moderate 03/26/2017 Patient Education: [...] aleve 03/22/2017 Appointment: Sarah Hernandes [facility]Ptel[facility] [phone] [phone] [place] (15 min) Moderate 03/22/2017 Patient Education: [...] of control. 03/08/2017 Appointment: Sarah Hernandes WPtel: [phone] (30 min) Complex 03/08/2017 Patient Education: [...] care surrogate. 11/30/2016 Appointment: Sarah Hernandes WPtel[facility] [phone] [phone] [facility] - Annual Wellness Visit 11/30/2016 [...] fluids. 11/28/2016 Appointment: Dore[facility] Sanchez WPtel[phone] [facility] (15 min) Moderate 11/28/2016 Patient Education: [...] 01/26/2015 Referral: Edgard Rivera MD WPtel: [address] Referral Appointment Requested Instructions Comment . [...] directed, and understands the consequences of over-medication. PREVNAR 13 TODAY- GIVEN IN OFFICE PREVNAR 23 IN ONE YEAR SHINGLES VACCINATION TO BE ADMINISTERED AT [facility] RECOMMEND OBTAINING MEDICAL POWER OF STONE GLUER AND LIVING WILL PATIENT DOES NOT HAVE [...] her DOPA paperwork for health care surrogate. victoza 0.6mg daily . Diabetes Mellitus - [...] to allow for greater blood glucose control. WRAP LEGS-THIGHS TO TOES LEVAQUIN 500MG DAILY [...] AND POTASSIUM TO TWICE DAILY [place]UE LEVAQUIN [facility] -WOUND CARE . Cellulitis-left leg-continue levaquin Edema-increase lasix/potassium-consult [facility] for unna boots/dressing changes . [...] labs in 3 months-sooner if needed . DM with peripheral neuropathy-paperwork completed for diabetic shoes and will fax to Dr Bauer HTN-controlled -no changes Pxirjiuhd-UPRN-SSF-prostate cancer with mets- patient qualifies for oxygen- oxygen saturation dropped to 86% on room air during ambulation but increased to 99% on 2L NC at rest-will send orders to [facility] for continue oxygen at 2L per nasal cannula REPEAT HGB A1C, CMP, TSH, FREE T4 [...] continue with supportive care and medication monitoring. Repeat labs at next appointment . Edema-significantly improved-no changes Ulcer-left lower leg and foot-seeing Dr Norwood at wound care-appt scheduled with Dr Frausto for vascular evaluation . Gzsfgptdad-sheivvodo-wzyqptc to finish abx-no further treatment indicated Edema-significantly [...] YEAR SHINGLES VACCINATION TO BE ADMINISTERED AT [facility] RECOMMEND OBTAINING MEDICAL POWER OF STONE GLUER AND LIVING WILL PATIENT DOES NOT HAVE [...] YEAR SHINGLES VACCINATION TO BE ADMINISTERED AT [facility] RECOMMEND OBTAINING MEDICAL POWER OF STONE GLUER AND LIVING WILL PATIENT DOES NOT HAVE [...] her DOPA paperwork for health care surrogate. increase the victoza to 1.2 . Hypertension [...]
--- OUTSIDE RECORDS SUMMARY | 2019-03-24 08:06 | XMS REPORT | CCD ---
Author Author [facility]ne Sanchez Organization [facility] Address [address] [place] [address] Phone Care Team Providers Care Supervisor [employer] Name Role Phone PP Unavailable CCM Unavailable Summary Purpose Interface Exchange Insurance Providers Payer name Policy type / Coverage type Covered libertarian ID Effective Begin Date Effective End Date WPS Medicare Part B Medicare Part B [id number] Unknown Unknown Family history Father Diagnosis Age At Onset Stroke Unknown Mother Diagnosis Age At Onset Stroke Unknown Diabetes mellitus Type 2 Unknown Social History Social History Element Codes Description Effective Dates Tobacco history SNOMED CT: 949758250 Currently uses smokeless tobacco Chews 05/04/2016 Marital status Unknown 01/26/2015 Number of children Unknown 3 01/26/2015 Employment Unknown Retired 01/26/[address]: 015788912 Never drinks alcohol quit in July 2014 [...] Date Stop Date Status Fill Instructions oxycodone 10 mg tablet RxNorm: 6956991 1 Tablet(s) PO Q4 PRN 02/25/2019 No Stop Date Active oxycodone 20 mg tablet RxNorm: 3226056 1/2 Tablet(s) PO Q6 as needed 01/21/2019 02/24/2019 Inactive oxycodone 20 mg tablet RxNorm: 3956384 1/2 Tablet(s) PO Q6 as needed 12/18/2018 01/16/2019 Inactive oxycodone 20 mg tablet RxNorm: 6790457 1/2 Tablet(s) PO Q6 as needed 11/12/2018 12/11/2018 Inactive gabapentin 100 mg capsule RxNorm: 910633 1 Capsule(s) BID 11/05/2018 05/03/2019 Active potassium chloride ER 10 mEq tablet,extended release RxNorm: 172301 TAKE ONE TABLET BY MOUTH DAILY 11/04/2018 11/19/2018 Inactive Probiotic 10 billion cell capsule RxNorm: 0715599 1 Capsule(s) PO BID 10/25/2018 10/24/2018 Inactive Keflex 500 mg capsule RxNorm: 087244 1 Capsule(s) PO QID 10/25/2018 10/31/2018 Inactive Probiotic 10 billion cell capsule RxNorm: 4104339 1 Capsule(s) PO BID 10/25/2018 10/31/2018 Inactive oxycodone 20 mg tablet RxNorm: 8058643 1/2 Tablet(s) PO Q6 as needed 10/14/2018 11/11/2018 Inactive Lasix 20 mg tablet RxNorm: 655967 1 Tablet(s) PO BID 10/10/2018 04/07/2019 Active Keflex 500 mg capsule RxNorm: 745221 1 Capsule(s) PO TID 10/10/2018 10/19/2018 Inactive potassium chloride ER 10 mEq tablet,extended release RxNorm: 347591 1 Tablet(s) PO daily 10/10/2018 11/03/2018 Inactive albuterol sulfate 2.5 mg/3 mL (0.083 %) solution for nebulization RxNorm: 316892 1 Milliliter(s) INH TID DX J44.9 10/04/2018 01/31/2019 Inactive gabapentin 100 mg capsule RxNorm: 469955 TAKE ONE CAPSULE BY MOUTH IN THE EVENING AT 5PM 09/24/2018 11/04/2018 Inactive oxycodone 20 mg tablet RxNorm: 0276146 1/2 Tablet(s) PO Q6 as needed 09/12/2018 10/11/2018 Inactive oxycodone 20 mg tablet RxNorm: 5818280 1/2 Tablet(s) PO Q6 as needed 08/15/2018 09/11/2018 Inactive oxycodone 20 mg tablet RxNorm: 4814946 1/2 Tablet(s) PO Q6 as needed 07/16/2018 08/14/2018 Inactive oxycodone 20 mg tablet RxNorm: 3731141 1/2 Tablet(s) PO Q6 as needed 06/14/2018 07/13/2018 Inactive gabapentin 100 mg capsule RxNorm: 911767 TAKE ONE CAPSULE BY MOUTH IN THE EVENING AT 5PM 05/30/2018 09/23/2018 Inactive oxycodone 20 mg tablet RxNorm: 8862880 1/2 Tablet(s) PO Q6 as needed 05/15/2018 06/13/2018 Inactive oxycodone 20 mg tablet RxNorm: 0279123 1/2 Tablet(s) PO Q6 as needed 04/12/2018 05/11/2018 Inactive oxycodone 20 mg tablet RxNorm: 4173978 1/2 Tablet(s) PO Q6 as needed 03/11/2018 04/09/2018 Inactive Cipro 500 mg tablet RxNorm: 036332 1 Tablet(s) PO BID 02/21/2018 02/20/2018 Inactive levothyroxine 200 mcg tablet RxNorm: 820425 1 Tablet(s) PO daily 02/21/2018 02/20/2018 Inactive Cipro 500 mg tablet RxNorm: 196009 1 Tablet(s) PO BID 02/21/2018 03/02/2018 Inactive levothyroxine 200 mcg tablet RxNorm: 570234 1 Tablet(s) PO daily 02/21/2018 02/15/2019 Inactive oxycodone 20 mg tablet RxNorm: 0596533 1/2 Tablet(s) PO Q6 as needed 02/12/2018 03/10/2018 Inactive oxycodone 20 mg tablet RxNorm: 3602401 1/2 Tablet(s) PO Q6 as needed 01/16/2018 02/11/2018 Inactive gabapentin 100 mg capsule RxNorm: 689030 TAKE ONE CAPSULE BY MOUTH IN THE EVENING AT 5PM 01/15/2018 05/29/2018 Inactive bisoprolol 5 mg-hydrochlorothiazide 6.25 mg tablet RxNorm: 929899 TAKE ONE TABLET BY MOUTH DAILY 01/01/2018 12/26/2018 Inactive oxycodone 20 mg tablet RxNorm: 8364995 1/2 Tablet(s) PO Q6 as needed 12/20/2017 01/14/2018 Inactive oxycodone 20 mg tablet RxNorm: 0934076 1/2 Tablet(s) PO Q6 as needed 11/20/2017 12/19/2017 Inactive Victoza 2-Dino 0.6 mg/0.1 mL (18 mg/3 mL) subcutaneous pen injector RxNorm: 703194 1.2 Milligram(s) SQ daily 11/08/2017 12/07/2017 Inactive oxycodone 20 mg tablet RxNorm: 9303663 1/2 Tablet(s) PO Q6 as needed 10/19/2017 11/17/2017 Inactive gabapentin 100 mg capsule RxNorm: 888391 1 Capsule(s) PO QPM at 5 pm 09/20/2017 01/14/2018 Inactive Lasix 20 mg tablet RxNorm: 827913 1 Tablet(s) QAM at 5pm 09/20/2017 03/18/2018 Inactive oxycodone 20 mg tablet RxNorm: 8270359 1/2 Tablet(s) PO Q6 as needed 09/18/2017 10/17/2017 Inactive oxycodone 20 mg tablet RxNorm: 6146226 1/2 Tablet(s) PO Q6 as needed 08/14/2017 09/12/2017 Inactive ketoconazole 2 % topical cream RxNorm: 873235 1 Gram(s) TOP BID to affected area until healed 08/03/2017 No Stop Date Active oxycodone 20 mg tablet RxNorm: 4162503 1/2 Tablet(s) PO Q6 as needed 07/17/2017 08/13/2017 Inactive pen needle, diabetic 31 gauge x 5/16" RxNorm: 1 Unit Dose Miscellaneous daily 06/25/2017 03/21/2018 Inactive daily use with victoza Bactrim DS 800 mg-160 mg tablet RxNorm: 128315 1 Tablet(s) PO BID Dr Norwood 06/25/2017 07/04/2017 Inactive Victoza 2-Dino 0.6 mg/0.1 mL (18 mg/3 mL) subcutaneous pen injector RxNorm: 365177 0.6 Milligram(s) SQ daily 06/25/2017 07/24/2017 Inactive doxycycline hyclate 100 mg tablet RxNorm: 222856 1 Tablet(s) PO BID Dr Norwood 06/21/2017 06/30/2017 Inactive oxycodone 20 mg tablet RxNorm: 0104881 1/2 Tablet(s) PO Q6 as needed 06/14/2017 07/13/2017 Inactive clindamycin 150 mg capsule RxNorm: 118228 1 Capsule(s) PO Q8 06/07/2017 06/16/2017 Inactive levothyroxine 175 mcg tablet RxNorm: 302899 TAKE ONE TABLET BY MOUTH DAILY 06/04/2017 09/01/2017 Inactive levothyroxine 175 mcg tablet RxNorm: 672042 TAKE ONE TABLET BY MOUTH DAILY 06/04/2017 11/30/2017 Inactive bisoprolol 5 mg-hydrochlorothiazide 6.25 mg tablet RxNorm: 596901 TAKE ONE TABLET BY MOUTH DAILY 05/24/2017 11/19/2017 Inactive oxycodone 20 mg tablet RxNorm: 3841765 1/2 Tablet(s) PO Q6 as needed 05/14/2017 06/12/2017 Inactive potassium chloride ER 10 mEq capsule,extended release RxNorm: 646479 TAKE ONE CAPSULE BY MOUTH DAILY NEEDED FOR 5 DAYS THEN NEEDED WITH LASIX 04/17/2017 10/13/2017 Inactive Lasix 20 mg tablet RxNorm: 666733 TAKE ONE TABLET BY MOUTH DAILY NEEDED 04/17/2017 09/19/2017 Inactive oxycodone 20 mg tablet RxNorm: 4606515 1/2 Tablet(s) PO Q6 as needed 04/12/2017 05/11/2017 Inactive Colcrys 0.6 mg tablet RxNorm: 329240 2 tabs at onset then may repeat 1 tab in 1 hours if needed- Tablet(s) PO 04/09/2017 No Stop Date Active then take daily until gout resolved Bactrim DS 800 mg-160 mg tablet RxNorm: 236686 1 Tablet(s) PO BID 04/09/2017 04/08/2017 Inactive dc levaquin Bactrim DS 800 mg-160 mg tablet RxNorm: 307160 1 Tablet(s) PO BID 04/09/2017 04/15/2017 Inactive dc levaquin Levaquin 500 mg tablet RxNorm: 527981 1 Tablet(s) PO daily 04/03/2017 04/02/2017 Inactive Levaquin 500 mg tablet RxNorm: 281171 1 Tablet(s) PO daily 04/03/2017 06/06/2017 Inactive indomethacin 25 mg capsule RxNorm: 887912 1 Capsule(s) PO TID PRN 03/22/2017 03/22/2017 Inactive Lasix 20 mg tablet RxNorm: 819686 1 Tablet(s) PO QDAY PRN 03/22/2017 04/16/2017 Inactive daily x 5 days then as needed Levaquin 500 mg tablet RxNorm: 995168 1 Tablet(s) PO daily 03/22/2017 03/31/2017 Inactive potassium chloride ER 10 mEq capsule,extended release RxNorm: 733758 1 Capsule(s) PO QDAY PRN 03/22/2017 04/16/2017 Inactive daily x 5 days then as needed with lasix oxycodone 20 mg tablet RxNorm: 8218374 1/2 Tablet(s) PO Q6 as needed 03/08/2017 04/06/2017 Inactive bisoprolol 5 mg-hydrochlorothiazide 6.25 mg tablet RxNorm: 528050 TAKE ONE TABLET BY MOUTH DAILY 02/14/2017 05/14/2017 Inactive oxycodone 20 mg tablet RxNorm: 5116177 1/2 Tablet(s) PO Q6 as needed 02/08/2017 03/07/2017 Inactive oxycodone 20 mg tablet RxNorm: 8437742 1/2 Tablet(s) PO Q6 as needed 01/08/2017 02/06/2017 Inactive levothyroxine 175 mcg tablet RxNorm: 661956 1 Tablet(s) PO daily 12/06/2016 06/03/2017 Inactive [SAVINGS FOR NON-COVERED DRUGS -- BIN:[id number], PCN: ASPROD1, Group: XXXXX, ID# XXXXXXX, Questions: . THIS IS NOT INSURANCE.] oxycodone 20 mg tablet RxNorm: 9417302 1/2 Tablet(s) PO Q6 as needed 12/04/2016 01/02/2017 Inactive oxycodone 20 mg tablet RxNorm: 1799921 1/2 Tablet(s) PO Q6 as needed 11/09/2016 12/03/2016 Inactive bisoprolol 5 mg-hydrochlorothiazide 6.25 mg tablet RxNorm: 768219 TAKE ONE TABLET BY MOUTH DAILY 11/08/2016 02/05/2017 Inactive oxycodone 20 mg tablet RxNorm: 4091401 1/2 Tablet(s) PO Q6 as needed 10/05/2016 11/03/2016 Inactive oxycodone 20 mg tablet RxNorm: 0458954 1/2 Tablet(s) PO Q6 as needed 09/06/2016 10/04/2016 Inactive oxycodone 20 mg tablet RxNorm: 7170248 1/2 Tablet(s) PO Q6 as needed 08/07/2016 09/05/2016 Inactive oxycodone 20 mg tablet RxNorm: 6462485 1/2 Tablet(s) PO Q6 as needed 07/04/2016 08/06/2016 Inactive oxycodone 20 mg tablet RxNorm: 8399054 1/2 Tablet(s) PO Q6 as needed 05/29/2016 07/03/2016 Inactive levothyroxine 150 mcg tablet RxNorm: 723516 1 Tablet(s) PO daily 04/10/2016 04/09/2016 Inactive [SAVINGS FOR NON-COVERED DRUGS -- BIN:[id number], PCN: ASPROD1, Group: XXXXX, ID# XXXXXXX, Questions: . THIS IS NOT INSURANCE.] oxycodone 20 mg tablet RxNorm: 3539202 1/2 Tablet(s) PO Q6 as needed 04/10/2016 05/28/2016 Inactive levothyroxine 150 mcg tablet RxNorm: 478975 1 Tablet(s) PO daily 04/10/2016 10/06/2016 Inactive [SAVINGS FOR NON-COVERED DRUGS -- BIN:912765, PCN: ASPROD1, Group: XXXXX, ID# XXXXXXX, Questions: . THIS IS NOT INSURANCE.] bisoprolol 5 mg-hydrochlorothiazide 6.25 mg tablet RxNorm: 617067 1 Tablet(s) PO daily 02/16/2016 12/31/2017 Inactive oxycodone 20 mg tablet RxNorm: 9629490 1/2 Tablet(s) PO Q6 as needed 02/16/2016 04/09/2016 Inactive oxycodone 20 mg tablet RxNorm: 2492481 1/2 Tablet(s) PO Q6 as needed 01/04/2016 02/15/2016 Inactive bisoprolol 5 mg-hydrochlorothiazide 6.25 mg tablet RxNorm: 265633 1 Tablet(s) PO daily 11/19/2015 01/17/2016 Inactive bisoprolol 5 mg-hydrochlorothiazide 6.25 mg tablet RxNorm: 282198 1 Tablet(s) PO daily 11/04/2015 11/18/2015 Inactive oxycodone 20 mg tablet RxNorm: 9667196 1/2 Tablet(s) PO Q6 as needed 10/27/2015 01/03/2016 Inactive levothyroxine 150 mcg tablet RxNorm: 930107 1 Tablet(s) PO daily 08/26/2015 02/21/2016 Inactive [SAVINGS FOR NON-COVERED DRUGS -- BIN:[id number], PCN: ASPROD1, Group: XXXXX, ID# XXXXXXX, Questions: . THIS IS NOT INSURANCE.] bisoprolol 5 mg-hydrochlorothiazide 6.25 mg tablet RxNorm: 776308 1 Tablet(s) PO daily 08/26/2015 10/24/2015 Inactive oxycodone 10 mg tablet RxNorm: 4897188 1 Tablet(s) PO Q6 as needed 05/06/2015 10/26/2015 Inactive levothyroxine 150 mcg tablet RxNorm: 057981 1 Tablet(s) PO daily 02/05/2015 08/03/2015 Inactive [SAVINGS FOR NON-COVERED DRUGS -- BIN:272653, PCN: ASPROD1, Group: XXXXX, ID# XXXXXXX, Questions: . THIS IS NOT INSURANCE.] Vitamin D2 50,000 unit capsule RxNorm: 181339 1 Capsule(s) PO weekly 02/05/2015 05/05/2015 Inactive [SAVINGS FOR NON-COVERED DRUGS -- BIN:066811, PCN: ASPROD1, Group: XXXXX, ID# XXXXXXX, Questions: . THIS IS NOT INSURANCE.] Vitamin D2 50,000 unit capsule RxNorm: 477006 1 Capsule(s) PO weekly 02/05/2015 02/04/2015 Inactive bisoprolol 5 mg-hydrochlorothiazide 6.25 mg tablet RxNorm: 828573 1 Tablet(s) PO daily 01/26/2015 02/24/2015 Inactive levothyroxine 200 mcg tablet RxNorm: 433852 1 Tablet(s) PO daily 01/26/2015 01/25/2015 Inactive levothyroxine 200 mcg tablet RxNorm: 810317 1 Tablet(s) PO every other day 01/26/2015 02/04/2015 Inactive [SAVINGS FOR NON-COVERED DRUGS -- BIN:739540, PCN: ASPROD1, Group: XXXXX, ID# XXXXXXX, Questions: . THIS IS NOT INSURANCE.] aspirin 81 mg chewable tablet RxNorm: 666858 1 Tablet(s) PO daily No Start Date Active Plavix 75 mg tablet RxNorm: 468959 1 Tablet(s) PO daily manage by Dr Baig No Start Date Active simvastatin 40 mg tablet RxNorm: 518295 1 Tablet(s) PO QHS managed by Dr Baig No Start Date Active Colcrys 0.6 mg tablet RxNorm: 874971 2 tabs at onset then may repeat 1 tab in 1 hours if needed- Tablet(s) PO No Start Date 04/08/2017 Inactive then take daily until gout resolved aspirin 325 mg tablet RxNorm: 026288 1 Tablet(s) PO daily No Start Date 05/03/2016 Inactive levothyroxine 75 mcg tablet RxNorm: 774959 1 Tablet(s) PO every other day No Start Date 02/04/2015 Inactive takes qod with 200mcg oxycodone 10 mg tablet RxNorm: 0924938 1 Tablet(s) PO Q6 as needed No Start Date 05/05/2015 Inactive ketoconazole 2 % topical cream RxNorm: 022981 1 Gram(s) TOP BID to affected area [...] Code Item Item Code Result Date %Hba1C Lgn548 % HbA1c 18108- 6 9.2 % 02/25/2019 %Hba1C Vwe722 Gluc Ave 217 mg/dL 02/25/2019 Comp Metabolic Wsr279 NA 136 mEq/L 02/25/2019 Comp Metabolic Kqm333 K 4.8 mEq/L 02/25/2019 Comp Metabolic Biu546 CL 95 mEq/L 02/25/2019 Comp Metabolic Gfi525 CO2 36.0 mEq/L 02/25/2019 Comp Metabolic Uzf354 ANION GAP 10 02/25/2019 Comp Metabolic Qlp693 GLUCOSE 255 mg/dL 02/25/2019 Comp Metabolic Mzp412 Creat 1.2 mg/dL 02/25/2019 Comp Metabolic Lsv166 eGFR 62 ml/min/1.73m2 02/25/2019 Comp Metabolic Cmx623 BUN 29 mg/dL 02/25/2019 Comp Metabolic Ydo086 B/C Ratio 24.0 Ratio 02/25/2019 Comp Metabolic Mno896 CALCIUM 9.0 mg/dL 02/25/2019 Comp Metabolic Uqm334 ALK PHOS 102 U/L 02/25/2019 Comp Metabolic Wor241 AST(SGOT) 12 U/L 02/25/2019 Comp Metabolic Vlj464 ALT(SGPT) 9 U/L 02/25/2019 Comp Metabolic Ujr979 BILI T 0.6 mg/dL 02/25/2019 Comp Metabolic Lfl464 ALBUMIN 3.8 g/dL 02/25/2019 Comp Metabolic Mln652 TPRO 6.6 g/dL 02/25/2019 Comp Metabolic Gif086 GLOB 2.8 g/dL 02/25/2019 Comp Metabolic Bms455 A/G Ratio 1.4 Ratio 02/25/2019 Comp Metabolic Wsp287 Osmo 286 mOsmo 02/25/2019 %Hba1C Mzn352 % HbA1c 31580- 6 6.4 % 08/30/2018 %Hba1C Rvi225 Gluc Ave 137 mg/dL 08/30/2018 Culture Urine [id number] URINE CULTURE SEE NOTES 02/22/2018 Urine Culture [...] 24.5 pg 02/20/2018 Cbc With Differential Ord2 Bucks% 8.9 % 02/20/2018 Cbc With Differential Ord2 [...] 0.81 K/ul 02/20/2018 Cbc With Differential Ord2 Bucks ABS# 0.7 K/ul 02/20/2018 Cbc With Differential Ord2 Eos ABS# 0.4 K/ul 02/20/2018 Cbc With Differential Ord2 Baso ABS# 0.0 K/ul 02/20/2018 %Hba1C Mij111 % HbA1c 01794- 6 7.7 % 02/20/2018 %Hba1C Fuq656 Gluc Ave 174 mg/dL 02/20/2018 Lipase Pcb530 LIPASE 17 U/L 02/20/2018 Microalbumin Xgz445 MicroAlb 6.5 mg/dL 02/20/2018 Amylase Ord34 AMYLASE 15 U/L 02/20/2018 Free T4 Iqf910 FREE T4 0.61 ng/dL 02/20/2018 Lipid Ord30 CHOL 203 mg/dL 02/20/2018 Lipid Ord30 HDL 7.0 mg/dl 02/20/2018 Lipid Ord30 TRIG 271 mg/dL 02/20/2018 Lipid Ord30 LDL 142 mg/dL 02/20/2018 Lipid Ord30 C/HDL 29.0 Ratio 02/20/2018 Comp Metabolic Obb030 NA 134 mEq/L 02/20/2018 Comp Metabolic Kud531 K 3.6 mEq/L 02/20/2018 Comp Metabolic Pdf388 CL 96 mEq/L 02/20/2018 Comp Metabolic Ppw868 CO2 29.0 mEq/L 02/20/2018 Comp Metabolic Ygp664 ANION GAP 13 02/20/2018 Comp Metabolic Kjo859 GLUCOSE 165 mg/dL 02/20/2018 Comp Metabolic Pxp034 Creat 1.2 mg/dL 02/20/2018 Comp Metabolic Qlj781 eGFR 63 ml/min/1.73m2 02/20/2018 Comp Metabolic Kkv631 BUN 14 mg/dL 02/20/2018 Comp Metabolic Uzq342 B/C Ratio 11.6 Ratio 02/20/2018 Comp Metabolic Fwi688 CALCIUM 8.5 mg/dL 02/20/2018 Comp Metabolic Yry280 ALK PHOS 633 U/L 02/20/2018 Comp Metabolic Vmj041 AST(SGOT) 112 U/L 02/20/2018 Comp Metabolic Ifz090 ALT(SGPT) 148 U/L 02/20/2018 Comp Metabolic Eou011 BILI T 6.8 mg/dL 02/20/2018 Comp Metabolic Noc606 ALBUMIN 3.3 g/dL 02/20/2018 Comp Metabolic Kav443 TPRO 5.9 g/dL 02/20/2018 Comp Metabolic Gku154 GLOB 2.6 g/dL 02/20/2018 Comp Metabolic Jbo980 A/G Ratio 1.3 Ratio 02/20/2018 Comp Metabolic Jfp758 Osmo 272 mOsmo 02/20/2018 Total Psa Ord10 [...] Metabolic Ord15 CALCIUM 9.2 mg/dL 11/09/2017 %Hba1C Evg012 % HbA1c 51553- 6 8.0 % 11/09/2017 %Hba1C Xsq735 Gluc Ave 183 mg/dL 11/09/2017 Metabolic Ord15 [...] Ord15 CALCIUM 8.7 mg/dL 06/25/2017 Culture Wound [id number] WOUND CULTURE SEE NOTES 04/09/2017 Culture Wound [id number] Continued Results 04/09/2017 Amylase Ord34 AMYLASE 19 [...] 27.9 pg 03/22/2017 Cbc With Differential Ord2 Bucks% 8.3 % 03/22/2017 Cbc With Differential Ord2 [...] 1.35 K/ul 03/22/2017 Cbc With Differential Ord2 Bucks ABS# 1.4 K/ul 03/22/2017 Cbc With Differential Ord2 Eos ABS# 0.2 K/ul 03/22/2017 Cbc With Differential Ord2 Baso ABS# 0.0 K/ul 03/22/2017 Comp Metabolic Lcr880 NA 134 mEq/L 03/22/2017 Comp Metabolic Dqz160 K 4.5 mEq/L 03/22/2017 Comp Metabolic Beg378 CL 93 mEq/L 03/22/2017 Comp Metabolic Bqj790 CO2 31.0 mEq/L 03/22/2017 Comp Metabolic Hfv919 ANION GAP 15 03/22/2017 Comp Metabolic All891 GLUCOSE 198 mg/dL 03/22/2017 Comp Metabolic Jqa525 Creat 1.5 mg/dL 03/22/2017 Comp Metabolic Uyc962 eGFR 50 ml/min/1.73m2 03/22/2017 Comp Metabolic Gzn380 BUN 32 mg/dL 03/22/2017 Comp Metabolic Qch636 B/C Ratio 21.6 Ratio 03/22/2017 Comp Metabolic Bhp635 CALCIUM 8.4 mg/dL 03/22/2017 Comp Metabolic Cuy287 ALK PHOS 245 U/L 03/22/2017 Comp Metabolic Vbq058 AST(SGOT) 18 U/L 03/22/2017 Comp Metabolic Ium238 ALT(SGPT) 17 U/L 03/22/2017 Comp Metabolic Cmp191 BILI T 0.8 mg/dL 03/22/2017 Comp Metabolic Wpr824 ALBUMIN 2.9 g/dL 03/22/2017 Comp Metabolic Kgm788 TPRO 6.3 g/dL 03/22/2017 Comp Metabolic Biy597 GLOB 3.4 g/dL 03/22/2017 Comp Metabolic Ksp806 A/G Ratio 0.8 Ratio 03/22/2017 Comp Metabolic Gdo558 Osmo 281 mOsmo 03/22/2017 Lipase Ufw885 LIPASE 12 U/L 03/22/2017 Comp Metabolic Vit198 NA 142 mEq/L 03/09/2017 Comp Metabolic Gpr218 K 4.8 mEq/L 03/09/2017 Comp Metabolic Tod256 CL 103 mEq/L 03/09/2017 Comp Metabolic Zob051 CO2 30.0 mEq/L 03/09/2017 Comp Metabolic Ajt888 ANION GAP 14 03/09/2017 Comp Metabolic Vsv995 GLUCOSE 152 mg/dL 03/09/2017 Comp Metabolic Bhp354 Creat 1.3 mg/dL 03/09/2017 Comp Metabolic Eta671 eGFR 56 ml/min/1.73m2 03/09/2017 Comp Metabolic Tfi927 BUN 23 mg/dL 03/09/2017 Comp Metabolic Kgc863 B/C Ratio 17.3 Ratio 03/09/2017 Comp Metabolic Kbr499 CALCIUM 8.5 mg/dL 03/09/2017 Comp Metabolic Dyr131 ALK PHOS 97 U/L 03/09/2017 Comp Metabolic Zie577 AST(SGOT) 10 U/L 03/09/2017 Comp Metabolic Flf489 ALT(SGPT) 6 U/L 03/09/2017 Comp Metabolic Iij687 BILI T 0.4 mg/dL 03/09/2017 Comp Metabolic Ffl414 ALBUMIN 3.4 g/dL 03/09/2017 Comp Metabolic Lbo956 TPRO 6.2 g/dL 03/09/2017 Comp Metabolic Als886 GLOB 2.8 g/dL 03/09/2017 Comp Metabolic Nae692 A/G Ratio 1.2 Ratio 03/09/2017 Comp Metabolic Azv606 Osmo 290 mOsmo 03/09/2017 Free T4 Wli511 FREE T4 0.86 ng/dL 03/08/2017 Cbc With [...] 28.2 pg 03/08/2017 Cbc With Differential Ord2 Bucks% 8.7 % 03/08/2017 Cbc With Differential Ord2 [...] 1.63 K/ul 03/08/2017 Cbc With Differential Ord2 B[place] ABS# 0.9 K/ul 03/08/2017 Cbc With Differential Ord2 Eos ABS# 0.5 K/ul 03/08/2017 Cbc With Differential Ord2 Baso ABS# 0.0 K/ul 03/08/2017 Tsh Ord6 hTSH II 4.52 uIU/mL 03/08/2017 %Hba1C Uhu502 % HbA1c 11569- 6 8.5 % 03/08/2017 %Hba1C Lfy096 Gluc Ave 197 mg/dL 03/08/2017 %Hba1C Hmg932 % HbA1c 42481- 6 9.8 % 12/04/2016 %Hba1C Skv568 Gluc Ave 235 mg/dL 12/04/2016 Tsh Ord6 hTSH II 10.65 uIU/mL 11/30/2016 Comp Metabolic Elg172 NA 134 mEq/L 11/30/2016 Comp Metabolic Wrl808 K 5.0 mEq/L 11/30/2016 Comp Metabolic Xzn558 CL 95 mEq/L 11/30/2016 Comp Metabolic Hiz719 CO2 34.0 mEq/L 11/30/2016 Comp Metabolic Ope606 ANION GAP 10 11/30/2016 Comp Metabolic Kzx306 GLUCOSE 226 mg/dL 11/30/2016 Comp Metabolic Kuh072 Creat 1.3 mg/dL 11/30/2016 Comp Metabolic Rgs577 eGFR 56 ml/min/1.73m2 11/30/2016 Comp Metabolic Wzw623 BUN 21 mg/dL 11/30/2016 Comp Metabolic Epd362 B/C Ratio 15.7 Ratio 11/30/2016 Comp Metabolic Viw641 CALCIUM 8.9 mg/dL 11/30/2016 Comp Metabolic Kit567 ALK PHOS 112 U/L 11/30/2016 Comp Metabolic Wot861 AST(SGOT) 9 U/L 11/30/2016 Comp Metabolic Jdz917 ALT(SGPT) 7 U/L 11/30/2016 Comp Metabolic Nti176 BILI T 0.6 mg/dL 11/30/2016 Comp Metabolic Acc917 ALBUMIN 3.6 g/dL 11/30/2016 Comp Metabolic Pqh707 TPRO 6.4 g/dL 11/30/2016 Comp Metabolic Edj361 GLOB 2.9 g/dL 11/30/2016 Comp Metabolic Ecb351 A/G Ratio 1.2 Ratio 11/30/2016 Comp Metabolic Nrv358 Osmo 278 mOsmo 11/30/2016 Lipid Ord30 CHOL [...] 30.6 pg 11/30/2016 Cbc With Differential Ord2 Bucks% 7.9 % 11/30/2016 Cbc With Differential Ord2 [...] 1.34 K/ul 11/30/2016 Cbc With Differential Ord2 [place] ABS# 0.8 K/ul 11/30/2016 Cbc With Differential Ord2 Eos ABS# 0.3 K/ul 11/30/2016 Cbc With Differential Ord2 Baso ABS# 0.0 K/ul 11/30/2016 Free T4 Jgq887 FREE T4 0.89 ng/dL 11/30/2016 Review of [...] Codes Date ADMIN PNEUMOCOCCAL VACCINE SNOMED CT: 61317116 CPT-4: G0009 02/05/2018 Pneumococcal Polysaccharide Vaccine, 23-Valent, Ad CPT-4: 09196 02/05/2018 PPPS, SUBSEQ VISIT CPT- 4: G0439 11/30/2017 URINALYSIS NONAUTO W/O SCOPE CPT-4: 80570 03/22/2017 URINALYSIS NONAUTO W/O SCOPE CPT-4: 92232 03/21/2017 PPPS, SUBSEQ VISIT CPT- 4: G0439 11/30/2016 PNEUMOCOCCAL VACC 13 JAVIER IM Formatting Model/CDA Sections, Assigned to SNOMED CT: 21563002 CPT-4: 90578Utybnds 11/30/2016 ADMIN PNEUMOCOCCAL VACCINE SNOMED CT: 15488712 CPT-4: G0009 11/30/2016 Vital Signs Date Vital 02/25/2019 Blood Pressure 1: 110/58 Code: 8480-6 BMI: 38.3 Code: 61496-4 Heart Rate 1: 47 bpm Height: 5'10" SpO2: 97% Weight: 267 lbs 10/18/2018 Blood Pressure 1: 118/70 Code: 8480-6 BMI: 39.0 Code: 43222-8 Heart Rate 1: 86 bpm Height: 5'10" SpO2: 95% Weight: 272 lbs 10/14/2018 Blood Pressure 1: 120/56 Code: 8480-6 Heart Rate 1: 67 bpm Height: 5'10" SpO2: 92% 10/10/2018 Blood Pressure 1: 126/70 Code: 8480-6 BMI: 34.7 Code: 89308-6 Heart Rate 1: 80 bpm Height: 5'10" SpO2: 96% Temperature: 37.1 (C) / 98.7 (F) Weight: 242 lbs 10/04/2018 Blood Pressure 1: 120/70 Code: 8480-6 Height: 5'10" SpO2: 96% 08/29/2018 Blood Pressure 1: 104/60 Code: 8480-6 BMI: 34.6 Code: 70097-9 Heart Rate 1: 68 bpm Height: 5'10" SpO2: 98% Weight: 241 lbs 02/25/2018 Blood Pressure 1: 120/70 Code: 8480-6 BMI: 37.0 Code: 71934-4 Heart Rate 1: 51 bpm Height: 5'10" SpO2: 97% Weight: 258 lbs 02/20/2018 Blood Pressure 1: 12470 Code: 8480-6 BMI: 38.0 Code: 82238-3 Heart Rate 1: 60 bpm Height: 5'10" SpO2: 96% Weight: 265 lbs 02/05/2018 Blood Pressure 1: 116/66 Code: 8480-6 BMI: 38.0 Code: 88542-2 Heart Rate 1: 63 bpm Height: 5'10" SpO2: 98% Weight: 265 lbs 11/30/2017 Blood Pressure 1: 132/60 Code: 8480-6 BMI: 37.0 Code: 15011-2 Heart Rate 1: 100 bpm Height: 5'10" SpO2: 96% Waist Measure (cm): 122 cm Weight: 258 lbs 11/08/2017 Blood Pressure 1: 126/64 Code: 8480-6 BMI: 37.2 Code: 38693-0 Heart Rate 1: 92 bpm Height: 5'10" SpO2: 94% Weight: 259 lbs 09/20/2017 Blood Pressure 1: 122/68 Code: 8480-6 BMI: 36.9 Code: 37840-9 Heart Rate 1: 57 bpm Height: 5'10" SpO2: 96% Weight: 257 lbs 06/25/2017 Blood Pressure 1: 124/68 Code: 8480-6 BMI: 37.0 Code: 69448-6 Height: 5'10" Weight: 258 lbs 06/07/2017 Blood Pressure 1: 122/64 Code: 8480-6 BMI: 37.0 Code: 58902-2 Heart Rate 1: 60 bpm Height: 5'10" SpO2: 94% Temperature: 36.4 (C) / 97.6 (F) Weight: 258 lbs 05/03/2017 Blood Pressure 1: 118/ Code: 8480-6 BMI: 38.2 Code: 90350-9 Heart Rate 1: 52 bpm Height: 5'10" SpO2: 98% Weight: 266 lbs 04/02/2017 Blood Pressure 1: 11862 Code: 8480-6 BMI: 38.2 Code: 34924-3 Heart Rate 1: 53 bpm Height: 5'10" SpO2: 93% Weight: 266 lbs 03/26/2017 Blood Pressure 1: 114 Code: 8480-6 BMI: 38.3 Code: 13393-1 Height: 5'10" Weight: 267 lbs 03/22/2017 Blood Pressure 1: 12264 Code: 8480-6 BMI: 40.0 Code: 58837-0 Heart Rate 1: 52 bpm Height: 5'10" SpO2: 94% Weight: 279 lbs 03/08/2017 Blood Pressure 1: 124/70 Code: 8480-6 BMI: 39.4 Code: 18340-9 Heart Rate 1: 51 bpm Height: 5'10" SpO2: 94% Weight: 274 lbs 8 oz 12/06/2016 Blood Pressure 1: 126/62 Code: 8480-6 BMI: 40.3 Code: 91539-1 Heart Rate 1: 50 bpm Height: 5'10" SpO2: 94% Weight: 281 lbs 11/30/2016 Blood Pressure 1: 112/62 Code: 8480-6 BMI: 40.3 Code: 18451-2 Heart Rate 1: 52 bpm Height: 5'10" SpO2: 93% Waist Measure (cm): 135 cm Weight: 281 lbs 11/28/2016 Blood Pressure 1: 132/72 Code: 8480-6 BMI: 40.3 Code: 63971-0 Heart Rate 1: 50 bpm Height: 5'10" Weight: 281 lbs 05/04/2016 Blood Pressure 1: 128/78 Code: 8480-6 BMI: 38.5 Code: 92825-8 Heart Rate 1: 74 bpm Height: 5'10" SpO2: 98% Weight: 268 lbs 8 oz 11/04/2015 Blood Pressure 1: 136/60 Code: 8480-6 BMI: 38.0 Code: 17741-3 Heart Rate 1: 55 bpm Height: 5'10" SpO2: 94% Weight: 265 lbs 07/30/2015 Blood Pressure 1: 128/74 Code: 8480-6 BMI: 38.0 Code: 46312-2 Heart Rate 1: 47 bpm Height: 5'10" SpO2: 97% Weight: 265 lbs 01/26/2015 Blood Pressure 1: 122/64 Code: 8480-6 BMI: 34.0 Code: 29285-5 Heart Rate 1: 68 bpm Height: 5'10" [...] data Encounters Encounter Performer Location Codes Date ) [id number] EST. PATIENT, LEVEL IV Diagnosis: Essential (primary) hypertension[ICD10: I10] Diagnosis: Type 2 diabetes mellitus with hyperglycemia[ICD10: E11.65] Diagnosis: Chronic pain syndrome[ICD10: G89.4] Diagnosis: Chronic kidney disease, stage 3 (moderate)[ICD10: N18.3] Sarah Sanchez MD, [facility] CPT-4: 69669 02/25/2019 [id number] EST. PATIENT, LEVEL III Diagnosis: Localized edema[ICD10: R60.0] Diagnosis: Cellulitis of left lower limb[ICD10: L03.116] Diagnosis: Cellulitis of right lower limb[ICD10: L03.115] Kkii Sanchez MD, [facility] CPT-4: 19188 10/18/2018 [id number] EST. PATIENT, LEVEL III Diagnosis: Localized edema[ICD10: R60.0] Diagnosis: Cellulitis of left lower limb[ICD10: L03.116] Diagnosis: Cellulitis of right lower limb[ICD10: L03.115] Diagnosis: Chronic obstructive pulmonary disease, unspecified[ICD10: J44.9] Diagnosis: Weakness[ICD10: R53.1] Kiki Sanchez MD, [facility] CPT-4: 80957 10/14/2018 86052 EST. PATIENT, LEVEL III Diagnosis: Localized edema[ICD10: R60.0] Diagnosis: Cellulitis of left lower limb[ICD10: L03.116] Diagnosis: Cellulitis of right lower limb[ICD10: L03.115] Kiki Sanchez MD, [facility] CPT-4: 91808 10/10/2018 ([id number] 81441 EST. PATIENT, LEVEL IV Diagnosis: Type 2 diabetes mellitus with foot ulcer[ICD10: E11.621] Diagnosis: Essential (primary) hypertension[ICD10: I10] Diagnosis: Malignant neoplasm of prostate[ICD10: C61] Diagnosis: Chronic obstructive pulmonary disease, unspecified[ICD10: J44.9] Diagnosis: Hypoxemia[ICD10: R09.02] Sarah Sanchez MD, [facility] CPT-4: 00047 10/04/2018 ([id number]) 99836 EST. PATIENT, LEVEL IV Diagnosis: Type 2 diabetes mellitus with hyperglycemia[ICD10: E11.65] Diagnosis: Essential (primary) hypertension[ICD10: I10] Diagnosis: Malignant neoplasm of prostate[ICD10: C61] Sarah Sanchez MD, [facility] CPT-4: 90113 08/29/2018 ([id number]) 43732 EST. PATIENT, LEVEL IV Diagnosis: Malignant neoplasm of prostate[ICD10: C61] Dorene Sanchez MD, [facility] CPT-4: 31441 02/25/2018 29742 EST. PATIENT, LEVEL IV Diagnosis: Generalized abdominal pain[ICD10: R10.84] Diagnosis: Unspecified jaundice[ICD10: R17] Diagnosis: Gross hematuria[ICD10: R31.0] Kiki Sanchez MD, [facility] CPT-4: 10009 02/20/2018 ([id number]) 14699 EST. PATIENT, LEVEL IV Diagnosis: Type 2 diabetes mellitus with hyperglycemia[ICD10: E11.65] Diagnosis: Essential (primary) hypertension[ICD10: I10] Diagnosis: Chronic kidney disease, stage 3 (moderate)[ICD10: N18.3] Diagnosis: Chronic pain syndrome[ICD10: G89.4] Diagnosis: Other specified hypothyroidism[ICD10: E03.8] Diagnosis: Encounter for screening for malignant neoplasm of prostate[ICD10: Z12.5] Diagnosis: Encounter for immunization[ICD10: Z23] Sarah Sanchez MD, [facility] CPT-4: 22520 02/05/2018 ([id number]) 12221 EST. PATIENT, LEVEL IV Diagnosis: Type 2 diabetes mellitus with hyperglycemia[ICD10: E11.65] Diagnosis: Essential (primary) hypertension[ICD10: I10] Dorene Sanchez MD, [facility] CPT-4: 13250 11/08/2017 ([id number]) 38973 EST. PATIENT, LEVEL IV Diagnosis: Type 2 diabetes mellitus with hyperglycemia[ICD10: E11.65] Diagnosis: Chronic pain syndrome[ICD10: G89.4] Diagnosis: Essential (primary) hypertension[ICD10: I10] Diagnosis: Chronic kidney disease, stage 3 (moderate)[ICD10: N18.3] Diagnosis: Localized edema[ICD10: R60.0] Dorene Sanchez MD, [facility] CPT-4: 05720 09/20/2017 ([id number]) 69896 EST. PATIENT, LEVEL III Diagnosis: Type 2 diabetes mellitus with hyperglycemia[ICD10: E11.65] Sarah Sanchez MD, [facility] CPT-4: 64180 06/25/2017 ([id number]) 59431 EST. PATIENT, LEVEL III Diagnosis: Cellulitis of left lower limb[ICD10: L03.116] Sarah Sanchez MD, [facility] CPT-4: 08497 06/07/2017 ([id number]) 13086 EST. PATIENT, LEVEL III Diagnosis: Localized edema[ICD10: R60.0] Diagnosis: Type 2 diabetes mellitus with foot ulcer[ICD10: E11.621] Sarah Sanchez MD, [facility] CPT-4: 98348 05/03/2017 ([id number]) 63530 EST. PATIENT, LEVEL III Diagnosis: Cellulitis of left lower limb[ICD10: L03.116] Diagnosis: Localized edema[ICD10: R60.0] Sarah Sanchez MD, [facility] CPT-4: 49235 04/02/2017 ([id number]) Miscellaneous no charge Diagnosis: Localized edema[ICD10: R60.0] Diagnosis: Cellulitis of left lower limb[ICD10: L03.116] Sarah Sanchez MD, [facility] CPT-4: 85730 03/26/2017 ([id number]) 73875 EST. 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 PATIENT, LEVEL IV Diagnosis: Type 2 diabetes mellitus with hyperglycemia[ICD10: E11.65] Diagnosis: Other specified hypothyroidism[ICD10: E03.8] Diagnosis: Essential (primary) hypertension[ICD10: I10] Sarah Sanchez MD [facility] CPT-4: 75863 03/08/2017 ([id number]) 43321 EST. PATIENT, LEVEL III Diagnosis: Type 2 diabetes mellitus with hyperglycemia[ICD10: E11.65] Diagnosis: Other specified hypothyroidism[ICD10: E03.8] Sarah Sanchez MD [facility] CPT-4: 10872 12/06/2016 ([id number]) 20026 EST. PATIENT, LEVEL IV Diagnosis: Essential (primary) hypertension[ICD10: I10] Diagnosis: Chronic kidney disease, stage 3 (moderate)[ICD10: N18.3] Dorene Sanchez MD [facility] CPT-4: 51917 11/28/2016 ([id number]) 91550 EST. PATIENT, LEVEL IV Diagnosis: Essential (primary) hypertension[ICD10: I10] Diagnosis: Chronic pain syndrome[ICD10: G89.4] Diagnosis: Chronic kidney disease, stage 3 (moderate)[ICD10: N18.3] Diagnosis: Vitamin B12 deficiency anemia due to intrinsic factor deficiency[ICD10: D51.0] Diagnosis: Other specified hypothyroidism[ICD10: E03.8] Dorene Sanchez MD [facility] CPT-4: 89426 05/04/2016 91167 EST. PATIENT, LEVEL III Diagnosis: Chronic pain syndrome[ICD10: G89.4] Diagnosis: Essential (primary) hypertension[ICD10: I10] Diagnosis: Other specified hypothyroidism[ICD10: E03.8] Kiki Sanchez MD [facility] CPT-4: 86022 11/04/2015 92436 EST. PATIENT, LEVEL III Diagnosis: Chronic pain syndrome[ICD10: G89.4] Diagnosis: Essential (primary) hypertension[ICD10: I10] Kiki Sanchez MD [facility] CPT-4: 04389 07/30/2015 ([id number]) OFFICE/OUTPATIENT VISIT NEW Diagnosis: ESSENTIAL HYPERTENSION[ICD9: 401.9] Diagnosis: HYPOTHYROIDISM[ICD9: 244.9] Diagnosis: ANEMIA[ICD9: 285.9] Diagnosis: Vitamin B12 deficiency[ICD9: 266.2] Diagnosis: CHRONIC PAIN SYNDROME[ICD9: 338.4] Diagnosis: Chronic renal insufficiency, stage III (moderate)[ICD9: 585.3] Diagnosis: GOUT[ICD9: 274.9] Dorene Sanchez MD, [facility] CPT-4: 63737 01/26/2015 Plan of Care Planned Activity Notes [...] and understands the consequences of over-medication. 02/25/2019 Patient Education: Patient Medication Summary Completed [...] warmth, discharge. 10/18/2018 Appointment: Kiki Menjivar WPtel: [address] [place], [place] [phone] (30 min) [facility] 10/18/2018 Patient Education: Patient Medication Summary Completed [...] to weakness 10/14/2018 Appointment: Kiki Menjivar WPtel: [address] [place], [place] [phone] (30 min) [facility] 10/14/2018 Patient Education: Patient Medication Summary Completed [...] discharge. 10/10/2018 Appointment: Kiki Menjivar WPtel: [phone] [facility]66[facility] (30 min) Complex 10/10/2018 Patient Education: Patient Medication Summary Completed 10/10/2018 Visit Plan: DM with peripheral neuropathy-paperwork completed for diabetic shoes and will fax to Dr Bauer HTN-controlled -no changes Msfxdnfhx-ITYB-SWE-prostate cancer with mets- patient qualifies for oxygen-oxy gen saturation dropped to 86% on room air during ambulation but increased to 99% on 2L NC at rest-will send orders to [facility] for continue oxygen at 2L per nasal cannula 10/04/2018 Appointment: Sarah Hernandes WPtel: [facility] [place] [address] (30 min) Complex 10/04/2018 Patient Education: Patient [...] Dr Moreno 08/29/2018 Appointment: Sarah Hernandes WPtel: [address] [place] [address] (15 min) Moderate 08/29/2018 Patient Education: Patient Medication Summary Completed 08/29/2018 Referral: Edgard Rivera MD WPtel: Via [address] Moreno. Patient informed. Referral info faxed. Completed 02/27/2018 Visit Plan: Recurrent prostate cancer - I have recommended a referral to Dr. Rivera. We discussed the case at length today- he is not interested in extensive treatment, but if possible to extend his quantity and quality of life, he would like to try. 02/25/2018 Appointment: Dore[facility] Sanchez [facility]Ptel[phone] [facility] (15 min) Moderate 02/25/2018 Patient Education: Patient Medication Summary Completed 02/25/2018 Care Plan: Referral Order SNOMED-CT : [id number] Pending 02/25/2018 Visit Plan: Intermittent abdominal pain, jaundice, itching - will check labs and treat as indicated - pt is to go to the ER with any acute change in symptoms or any acute concerns. 02/20/2018 Appointment: [phone] (30 min) Complex 02/20/2018 Patient Education: [...] control. 02/05/2018 Appointment: [facility]el[phone] [phone] (30 min) Complex 02/05/2018 Patient Education: [...] surrogate. 11/30/2017 Appointment: Sarah Hernandes WPtel: [address] [phone] [facility] - Annual Wellness Visit 11/30/2017 Patient [...] 1.2 11/08/2017 Appointment: Dorene Sanchez WPtel: [phone] [facility] (15 min) Moderate 11/08/2017 Patient Education: [...] of over-medication. 09/20/2017 Appointment: Dorene Sanchez WPtel: [address] [place], [place] [phone] (15 min) Moderate 09/20/2017 Patient Education: Patient [...] control. 06/25/2017 Appointment: Sarah Hernandes WPtel: [phone] [place] (30 min) Complex 06/25/2017 Patient Education: Patient Medication Summary Completed 06/25/2017 Appointment: Sarah Hernandes WPtel: [phone] (30 min) Complex 06/22/2017 Visit Plan: Cellulitis - start oral antibiotics as previously directed, return to clinic as previously directed, call for acute change in symptoms, worsening redness, warmth, discharge. 06/07/2017 Appointment: Sarah Hernandes WPtel: [address] [place], [place] [phone] [place] (30 min) Complex 06/07/2017 Patient Education: Patient Medication Summary Completed 06/07/2017 Patient Education: Obesity Completed 06/07/2017 Appointment: Dorene Sanchez WPtel: [address] [place], [place] [phone] (15 min) Moderate 05/31/2017 Visit Plan: Edema-significantly improved-no changes Ulcer-left lower leg and foot-seeing Dr Norwood at wound care-appt scheduled with Dr Frausto for vascular evaluation 05/03/2017 Appointment: Sarah Hernandes WPtel: [address] [place], [place] [phone] (15 min) Moderate 05/03/2017 Patient Education: Patient Medication Summary Completed 05/03/2017 Patient Education: Obesity Completed 05/03/2017 Visit Plan: Ngrxareuol-rctkjwlnj-ndvhudj to finish abx-no further treatment indicated Edema-significantly improved-no longer weeping-continue unna boots twice weekly with home health 04/02/2017 Appointment: Sarah Hernandes WPtel: [address] [place], [place] [phone] [place] (30 min) Complex 04/02/2017 Patient Education: Patient Medication Summary Completed 04/02/2017 Patient Education: Obesity Completed 04/02/2017 Visit Plan: Cellulitis-left leg-continue levaquin Edema-increase lasix/potassium-consult [facility] for unna boots/dressing changes 03/26/2017 Appointment: Sarah Hernandes WPtel: [address] [place], [place] [phone] [place] (15 min) Moderate 03/26/2017 Patient Education: [...] aleve 03/22/2017 Appointment: [facility] Hernandes WPtel[phone] [phone] (15 min) Moderate 03/22/2017 Patient [...] of control. 03/08/2017 Appointment: Sarah Hernandes WPtel: [phone] (30 min) Complex 03/08/2017 Patient Education: [...] surrogate. 11/30/2016 Appointment: Sarah Hernandes WPtel: [phone] [phone] [facility] - Annual Wellness Visit 11/30/2016 Patient [...] fluids. 11/28/2016 Appointment: Dorene Sanchez WPtel: [phone] [facility] (15 min) Moderate 11/28/2016 Patient Education: [...] 01/26/2015 Referral: Edgard Rivera MD WPtel: [address] [facility]Ge[facility] Referral Appointment Requested Instructions Comment . [...] CARE . Cellulitis-left leg-continue levaquin Edema-increase lasix/potassium-consult [facility] for unna boots/dressing changes WRAP LEGS-THIGHS TO [...] YEAR SHINGLES VACCINATION TO BE ADMINISTERED AT [facility] RECOMMEND OBTAINING MEDICAL POWER OF SERVICE ORDER DISPATCHER AND LIVING WILL PATIENT DOES NOT HAVE [...] YEAR SHINGLES VACCINATION TO BE ADMINISTERED AT [facility] RECOMMEND OBTAINING MEDICAL POWER OF SERVICE ORDER DISPATCHER AND LIVING WILL PATIENT DOES NOT HAVE [...] YEAR SHINGLES VACCINATION TO BE ADMINISTERED AT [facility] RECOMMEND OBTAINING MEDICAL POWER OF SERVICE ORDER DISPATCHER AND LIVING WILL PATIENT DOES NOT HAVE [...] in symptoms, worsening redness, warmth, discharge. . Cendytyrbs-grdofjzbk-muhsnml to finish abx-no further treatment indicated Edema-significantly [...] fax to Dr Bauer HTN-controlled -no changes Qwfmmhfvk-KSNF-MNN-prostate cancer with mets- patient qualifies for oxygen- [...]
--- OUTSIDE RECORDS SUMMARY | 2019-03-24 08:09 | XMS REPORT | CCD ---
Author Author Dorene Sanchez Organization [facility] Address [address] [place] [address] Phone Care Team Providers Care [facility]ist[facility] Name Role Phone PP Unavailable CCM Unavailable Summary Purpose Interface Exchange Insurance Providers Payer name Policy type / Coverage type Covered democrat ID Effective Begin Date Effective End Date WPS Medicare Part B Medicare Part B [id number] Unknown Unknown Family history Father Diagnosis Age At Onset Stroke Unknown Mother Diagnosis Age At Onset Stroke Unknown Diabetes mellitus Type 2 Unknown Social History Social History Element Codes Description Effective Dates Tobacco history SNOMED CT: 582546557 Currently uses smokeless tobacco Chews 05/04/2016 Marital status Unknown 01/26/2015 Number of children Unknown 3 01/26/2015 Employment Unknown Retired 01/26/[address]: 473225392 Never drinks alcohol quit in July 2014 [...] Fill Instructions oxycodone 10 mg tablet RxNorm: 1771844 1 Tablet(s) PO Q4 PRN 02/25/2019 No Stop Date Active oxycodone 20 mg tablet RxNorm: 1703372 1/2 Tablet(s) PO Q6 as needed 01/21/2019 02/24/2019 Inactive oxycodone 20 mg tablet RxNorm: 0654269 1/2 Tablet(s) PO Q6 as needed 12/18/2018 01/16/2019 Inactive oxycodone 20 mg tablet RxNorm: 7392734 1/2 Tablet(s) PO Q6 as needed 11/12/2018 12/11/2018 Inactive gabapentin 100 mg capsule RxNorm: 475305 1 Capsule(s) BID 11/05/2018 05/03/2019 Active potassium chloride ER 10 mEq tablet,extended release RxNorm: 679992 TAKE ONE TABLET BY MOUTH DAILY 11/04/2018 11/19/2018 Inactive Probiotic 10 billion cell capsule RxNorm: 2765426 1 Capsule(s) PO BID 10/25/2018 10/24/2018 Inactive Keflex 500 mg capsule RxNorm: 736724 1 Capsule(s) PO QID 10/25/2018 10/31/2018 Inactive Probiotic 10 billion cell capsule RxNorm: 3180720 1 Capsule(s) PO BID 10/25/2018 10/31/2018 Inactive oxycodone 20 mg tablet RxNorm: 7337655 1/2 Tablet(s) PO Q6 as needed 10/14/2018 11/11/2018 Inactive Lasix 20 mg tablet RxNorm: 277176 1 Tablet(s) PO BID 10/10/2018 04/07/2019 Active Keflex 500 mg capsule RxNorm: 868376 1 Capsule(s) PO TID 10/10/2018 10/19/2018 Inactive potassium chloride ER 10 mEq tablet,extended release RxNorm: 933020 1 Tablet(s) PO daily 10/10/2018 11/03/2018 Inactive albuterol sulfate 2.5 mg/3 mL (0.083 %) solution for nebulization RxNorm: 674006 1 Milliliter(s) INH TID DX J44.9 10/04/2018 01/31/2019 Inactive gabapentin 100 mg capsule RxNorm: 301301 TAKE ONE CAPSULE BY MOUTH IN THE EVENING AT 5PM 09/24/2018 11/04/2018 Inactive oxycodone 20 mg tablet RxNorm: 2411382 1/2 Tablet(s) PO Q6 as needed 09/12/2018 10/11/2018 Inactive oxycodone 20 mg tablet RxNorm: 4558143 1/2 Tablet(s) PO Q6 as needed 08/15/2018 09/11/2018 Inactive oxycodone 20 mg tablet RxNorm: 4632178 1/2 Tablet(s) PO Q6 as needed 07/16/2018 08/14/2018 Inactive oxycodone 20 mg tablet RxNorm: 9537866 1/2 Tablet(s) PO Q6 as needed 06/14/2018 07/13/2018 Inactive gabapentin 100 mg capsule RxNorm: 635594 TAKE ONE CAPSULE BY MOUTH IN THE EVENING AT 5PM 05/30/2018 09/23/2018 Inactive oxycodone 20 mg tablet RxNorm: 9740980 1/2 Tablet(s) PO Q6 as needed 05/15/2018 06/13/2018 Inactive oxycodone 20 mg tablet RxNorm: 3213579 1/2 Tablet(s) PO Q6 as needed 04/12/2018 05/11/2018 Inactive oxycodone 20 mg tablet RxNorm: 9184251 1/2 Tablet(s) PO Q6 as needed 03/11/2018 04/09/2018 Inactive Cipro 500 mg tablet RxNorm: 479487 1 Tablet(s) PO BID 02/21/2018 02/20/2018 Inactive levothyroxine 200 mcg tablet RxNorm: 068567 1 Tablet(s) PO daily 02/21/2018 02/20/2018 Inactive Cipro 500 mg tablet RxNorm: 612406 1 Tablet(s) PO BID 02/21/2018 03/02/2018 Inactive levothyroxine 200 mcg tablet RxNorm: 360847 1 Tablet(s) PO daily 02/21/2018 02/15/2019 Inactive oxycodone 20 mg tablet RxNorm: 7275521 1/2 Tablet(s) PO Q6 as needed 02/12/2018 03/10/2018 Inactive oxycodone 20 mg tablet RxNorm: 7851572 1/2 Tablet(s) PO Q6 as needed 01/16/2018 02/11/2018 Inactive gabapentin 100 mg capsule RxNorm: 380014 TAKE ONE CAPSULE BY MOUTH IN THE EVENING AT 5PM 01/15/2018 05/29/2018 Inactive bisoprolol 5 mg-hydrochlorothiazide 6.25 mg tablet RxNorm: 207556 TAKE ONE TABLET BY MOUTH DAILY 01/01/2018 12/26/2018 Inactive oxycodone 20 mg tablet RxNorm: 9965901 1/2 Tablet(s) PO Q6 as needed 12/20/2017 01/14/2018 Inactive oxycodone 20 mg tablet RxNorm: 3393376 1/2 Tablet(s) PO Q6 as needed 11/20/2017 12/19/2017 Inactive Victoza 2-Dino 0.6 mg/0.1 mL (18 mg/3 mL) subcutaneous pen injector RxNorm: 060559 1.2 Milligram(s) SQ daily 11/08/2017 12/07/2017 Inactive oxycodone 20 mg tablet RxNorm: 1025615 1/2 Tablet(s) PO Q6 as needed 10/19/2017 11/17/2017 Inactive gabapentin 100 mg capsule RxNorm: 075446 1 Capsule(s) PO QPM at 5 pm 09/20/2017 01/14/2018 Inactive Lasix 20 mg tablet RxNorm: 840228 1 Tablet(s) QAM at 5pm 09/20/2017 03/18/2018 Inactive oxycodone 20 mg tablet RxNorm: 3727718 1/2 Tablet(s) PO Q6 as needed 09/18/2017 10/17/2017 Inactive oxycodone 20 mg tablet RxNorm: 8526671 1/2 Tablet(s) PO Q6 as needed 08/14/2017 09/12/2017 Inactive ketoconazole 2 % topical cream RxNorm: 590163 1 Gram(s) TOP BID to affected area until healed 08/03/2017 No Stop Date Active oxycodone 20 mg tablet RxNorm: 4742017 1/2 Tablet(s) PO Q6 as needed 07/17/2017 08/13/2017 Inactive pen needle, diabetic 31 gauge x 5/16" RxNorm: 1 Unit Dose Miscellaneous daily 06/25/2017 03/21/2018 Inactive daily use with victoza Bactrim DS 800 mg-160 mg tablet RxNorm: 624153 1 Tablet(s) PO BID Dr Norwood 06/25/2017 07/04/2017 Inactive Victoza 2-Dino 0.6 mg/0.1 mL (18 mg/3 mL) subcutaneous pen injector RxNorm: 964640 0.6 Milligram(s) SQ daily 06/25/2017 07/24/2017 Inactive doxycycline hyclate 100 mg tablet RxNorm: 623247 1 Tablet(s) PO BID Dr Norwood 06/21/2017 06/30/2017 Inactive oxycodone 20 mg tablet RxNorm: 9102784 1/2 Tablet(s) PO Q6 as needed 06/14/2017 07/13/2017 Inactive clindamycin 150 mg capsule RxNorm: 421098 1 Capsule(s) PO Q8 06/07/2017 06/16/2017 Inactive levothyroxine 175 mcg tablet RxNorm: 809550 TAKE ONE TABLET BY MOUTH DAILY 06/04/2017 09/01/2017 Inactive levothyroxine 175 mcg tablet RxNorm: 628125 TAKE ONE TABLET BY MOUTH DAILY 06/04/2017 11/30/2017 Inactive bisoprolol 5 mg-hydrochlorothiazide 6.25 mg tablet RxNorm: 253403 TAKE ONE TABLET BY MOUTH DAILY 05/24/2017 11/19/2017 Inactive oxycodone 20 mg tablet RxNorm: 6340630 1/2 Tablet(s) PO Q6 as needed 05/14/2017 06/12/2017 Inactive potassium chloride ER 10 mEq capsule,extended release RxNorm: 623809 TAKE ONE CAPSULE BY MOUTH DAILY NEEDED FOR 5 DAYS THEN NEEDED WITH LASIX 04/17/2017 10/13/2017 Inactive Lasix 20 mg tablet RxNorm: 656052 TAKE ONE TABLET BY MOUTH DAILY NEEDED 04/17/2017 09/19/2017 Inactive oxycodone 20 mg tablet RxNorm: 0179657 1/2 Tablet(s) PO Q6 as needed 04/12/2017 05/11/2017 Inactive Colcrys 0.6 mg tablet RxNorm: 655732 2 tabs at onset then may repeat 1 tab in 1 hours if needed- Tablet(s) PO 04/09/2017 No Stop Date Active then take daily until gout resolved Bactrim DS 800 mg-160 mg tablet RxNorm: 045502 1 Tablet(s) PO BID 04/09/2017 04/08/2017 Inactive dc levaquin Bactrim DS 800 mg-160 mg tablet RxNorm: 766272 1 Tablet(s) PO BID 04/09/2017 04/15/2017 Inactive dc levaquin Levaquin 500 mg tablet RxNorm: 565499 1 Tablet(s) PO daily 04/03/2017 04/02/2017 Inactive Levaquin 500 mg tablet RxNorm: 684851 1 Tablet(s) PO daily 04/03/2017 06/06/2017 Inactive indomethacin 25 mg capsule RxNorm: 617811 1 Capsule(s) PO TID PRN 03/22/2017 03/22/2017 Inactive Lasix 20 mg tablet RxNorm: 987791 1 Tablet(s) PO QDAY PRN 03/22/2017 04/16/2017 Inactive daily x 5 days then as needed Levaquin 500 mg tablet RxNorm: 647333 1 Tablet(s) PO daily 03/22/2017 03/31/2017 Inactive potassium chloride ER 10 mEq capsule,extended release RxNorm: 329623 1 Capsule(s) PO QDAY PRN 03/22/2017 04/16/2017 Inactive daily x 5 days then as needed with lasix oxycodone 20 mg tablet RxNorm: 6218619 1/2 Tablet(s) PO Q6 as needed 03/08/2017 04/06/2017 Inactive bisoprolol 5 mg-hydrochlorothiazide 6.25 mg tablet RxNorm: 449448 TAKE ONE TABLET BY MOUTH DAILY 02/14/2017 05/14/2017 Inactive oxycodone 20 mg tablet RxNorm: 4398024 1/2 Tablet(s) PO Q6 as needed 02/08/2017 03/07/2017 Inactive oxycodone 20 mg tablet RxNorm: 1560798 1/2 Tablet(s) PO Q6 as needed 01/08/2017 02/06/2017 Inactive levothyroxine 175 mcg tablet RxNorm: 050053 1 Tablet(s) PO daily 12/06/2016 06/03/2017 Inactive [SAVINGS FOR NON-COVERED DRUGS -- BIN:[id number], PCN: ASPROD1, Group: XXXXX, ID# XXXXXXX, Questions: . THIS IS NOT INSURANCE.] oxycodone 20 mg tablet RxNorm: 9254355 1/2 Tablet(s) PO Q6 as needed 12/04/2016 01/02/2017 Inactive oxycodone 20 mg tablet RxNorm: 8228934 1/2 Tablet(s) PO Q6 as needed 11/09/2016 12/03/2016 Inactive bisoprolol 5 mg-hydrochlorothiazide 6.25 mg tablet RxNorm: 835988 TAKE ONE TABLET BY MOUTH DAILY 11/08/2016 02/05/2017 Inactive oxycodone 20 mg tablet RxNorm: 0129427 1/2 Tablet(s) PO Q6 as needed 10/05/2016 11/03/2016 Inactive oxycodone 20 mg tablet RxNorm: 1321496 1/2 Tablet(s) PO Q6 as needed 09/06/2016 10/04/2016 Inactive oxycodone 20 mg tablet RxNorm: 4629641 1/2 Tablet(s) PO Q6 as needed 08/07/2016 09/05/2016 Inactive oxycodone 20 mg tablet RxNorm: 0694935 1/2 Tablet(s) PO Q6 as needed 07/04/2016 08/06/2016 Inactive oxycodone 20 mg tablet RxNorm: 1657399 1/2 Tablet(s) PO Q6 as needed 05/29/2016 07/03/2016 Inactive levothyroxine 150 mcg tablet RxNorm: 999967 1 Tablet(s) PO daily 04/10/2016 04/09/2016 Inactive [SAVINGS FOR NON-COVERED DRUGS -- BIN:[id number], PCN: ASPROD1, Group: XXXXX, ID# XXXXXXX, Questions: . THIS IS NOT INSURANCE.] oxycodone 20 mg tablet RxNorm: 7350132 1/2 Tablet(s) PO Q6 as needed 04/10/2016 05/28/2016 Inactive levothyroxine 150 mcg tablet RxNorm: 468100 1 Tablet(s) PO daily 04/10/2016 10/06/2016 Inactive [SAVINGS FOR NON-COVERED DRUGS -- BIN:[id number], PCN: ASPROD1, Group: XXXXX, ID# XXXXXXX, Questions: . THIS IS NOT INSURANCE.] bisoprolol 5 mg-hydrochlorothiazide 6.25 mg tablet RxNorm: 670186 1 Tablet(s) PO daily 02/16/2016 12/31/2017 Inactive oxycodone 20 mg tablet RxNorm: 6430050 1/2 Tablet(s) PO Q6 as needed 02/16/2016 04/09/2016 Inactive oxycodone 20 mg tablet RxNorm: 1874192 1/2 Tablet(s) PO Q6 as needed 01/04/2016 02/15/2016 Inactive bisoprolol 5 mg-hydrochlorothiazide 6.25 mg tablet RxNorm: 196417 1 Tablet(s) PO daily 11/19/2015 01/17/2016 Inactive bisoprolol 5 mg-hydrochlorothiazide 6.25 mg tablet RxNorm: 944083 1 Tablet(s) PO daily 11/04/2015 11/18/2015 Inactive oxycodone 20 mg tablet RxNorm: 7284435 1/2 Tablet(s) PO Q6 as needed 10/27/2015 01/03/2016 Inactive levothyroxine 150 mcg tablet RxNorm: 652335 1 Tablet(s) PO daily 08/26/2015 02/21/2016 Inactive [SAVINGS FOR NON-COVERED DRUGS -- BIN:[id number], PCN: ASPROD1, Group: XXXXX, ID# XXXXXXX, Questions: . THIS IS NOT INSURANCE.] bisoprolol 5 mg-hydrochlorothiazide 6.25 mg tablet RxNorm: 930456 1 Tablet(s) PO daily 08/26/2015 10/24/2015 Inactive oxycodone 10 mg tablet RxNorm: 0959349 1 Tablet(s) PO Q6 as needed 05/06/2015 10/26/2015 Inactive levothyroxine 150 mcg tablet RxNorm: 572970 1 Tablet(s) PO daily 02/05/2015 08/03/2015 Inactive [SAVINGS FOR NON-COVERED DRUGS -- BIN:478022, PCN: ASPROD1, Group: XXXXX, ID# XXXXXXX, Questions: . THIS IS NOT INSURANCE.] Vitamin D2 50,000 unit capsule RxNorm: 688206 1 Capsule(s) PO weekly 02/05/2015 05/05/2015 Inactive [SAVINGS FOR NON-COVERED DRUGS -- BIN:891067, PCN: ASPROD1, Group: XXXXX, ID# XXXXXXX, Questions: . THIS IS NOT INSURANCE.] Vitamin D2 50,000 unit capsule RxNorm: 045744 1 Capsule(s) PO weekly 02/05/2015 02/04/2015 Inactive bisoprolol 5 mg-hydrochlorothiazide 6.25 mg tablet RxNorm: 133816 1 Tablet(s) PO daily 01/26/2015 02/24/2015 Inactive levothyroxine 200 mcg tablet RxNorm: 067580 1 Tablet(s) PO daily 01/26/2015 01/25/2015 Inactive levothyroxine 200 mcg tablet RxNorm: 138897 1 Tablet(s) PO every other day 01/26/2015 02/04/2015 Inactive [SAVINGS FOR NON-COVERED DRUGS -- BIN:196802, PCN: ASPROD1, Group: XXXXX, ID# XXXXXXX, Questions: . THIS IS NOT INSURANCE.] aspirin 81 mg chewable tablet RxNorm: 264459 1 Tablet(s) PO daily No Start Date Active Plavix 75 mg tablet RxNorm: 394343 1 Tablet(s) PO daily manage by Dr Baig No Start Date Active simvastatin 40 mg tablet RxNorm: 859891 1 Tablet(s) PO QHS managed by Dr Baig No Start Date Active Colcrys 0.6 mg tablet RxNorm: 425269 2 tabs at onset then may repeat 1 tab in 1 hours if needed- Tablet(s) PO No Start Date 04/08/2017 Inactive then take daily until gout resolved aspirin 325 mg tablet RxNorm: 133839 1 Tablet(s) PO daily No Start Date 05/03/2016 Inactive levothyroxine 75 mcg tablet RxNorm: 872359 1 Tablet(s) PO every other day No Start Date 02/04/2015 Inactive takes qod with 200mcg oxycodone 10 mg tablet RxNorm: 4158274 1 Tablet(s) PO Q6 as needed No Start Date 05/05/2015 Inactive ketoconazole 2 % topical cream RxNorm: 267189 1 Gram(s) TOP BID to affected area [...] Code Item Item Code Result Date %Hba1C Qof960 % HbA1c 72884- 6 6.4 % 08/30/2018 %Hba1C Upj140 Gluc Ave 137 mg/dL 08/30/2018 Culture Urine [id number] URINE CULTURE SEE NOTES 02/22/2018 Urine Culture [...] 24.5 pg 02/20/2018 Cbc With Differential Ord2 Kidder% 8.9 % 02/20/2018 Cbc With Differential Ord2 [...] 0.81 K/ul 02/20/2018 Cbc With Differential Ord2 Kidder ABS# 0.7 K/ul 02/20/2018 Cbc With Differential Ord2 Eos ABS# 0.4 K/ul 02/20/2018 Cbc With Differential Ord2 Baso ABS# 0.0 K/ul 02/20/2018 %Hba1C Ruh299 % HbA1c 49324- 6 7.7 % 02/20/2018 %Hba1C Zte047 Gluc Ave 174 mg/dL 02/20/2018 Lipase Rke969 LIPASE 17 U/L 02/20/2018 Microalbumin Yxa630 MicroAlb 6.5 mg/dL 02/20/2018 Amylase Ord34 AMYLASE 15 U/L 02/20/2018 Free T4 Pma118 FREE T4 0.61 ng/dL 02/20/2018 Lipid Ord30 CHOL 203 mg/dL 02/20/2018 Lipid Ord30 HDL 7.0 mg/dl 02/20/2018 Lipid Ord30 TRIG 271 mg/dL 02/20/2018 Lipid Ord30 LDL 142 mg/dL 02/20/2018 Lipid Ord30 C/HDL 29.0 Ratio 02/20/2018 Comp Metabolic Crw612 NA 134 mEq/L 02/20/2018 Comp Metabolic Vto059 K 3.6 mEq/L 02/20/2018 Comp Metabolic Dfr400 CL 96 mEq/L 02/20/2018 Comp Metabolic Qxy504 CO2 29.0 mEq/L 02/20/2018 Comp Metabolic Qgt003 ANION GAP 13 02/20/2018 Comp Metabolic Xhl277 GLUCOSE 165 mg/dL 02/20/2018 Comp Metabolic Kke015 Creat 1.2 mg/dL 02/20/2018 Comp Metabolic Jiw283 eGFR 63 ml/min/1.73m2 02/20/2018 Comp Metabolic Lgq345 BUN 14 mg/dL 02/20/2018 Comp Metabolic Pes419 B/C Ratio 11.6 Ratio 02/20/2018 Comp Metabolic Xmf841 CALCIUM 8.5 mg/dL 02/20/2018 Comp Metabolic Mat297 ALK PHOS 633 U/L 02/20/2018 Comp Metabolic Zxp503 AST(SGOT) 112 U/L 02/20/2018 Comp Metabolic Riq824 ALT(SGPT) 148 U/L 02/20/2018 Comp Metabolic Qvv155 BILI T 6.8 mg/dL 02/20/2018 Comp Metabolic Iho019 ALBUMIN 3.3 g/dL 02/20/2018 Comp Metabolic Nja150 TPRO 5.9 g/dL 02/20/2018 Comp Metabolic Hii113 GLOB 2.6 g/dL 02/20/2018 Comp Metabolic Svx843 A/G Ratio 1.3 Ratio 02/20/2018 Comp Metabolic Njr212 Osmo 272 mOsmo 02/20/2018 Total Psa Ord10 [...] Metabolic Ord15 CALCIUM 9.2 mg/dL 11/09/2017 %Hba1C Wqn221 % HbA1c 17863- 6 8.0 % 11/09/2017 %Hba1C Yqm504 Gluc Ave 183 mg/dL 11/09/2017 Metabolic Ord15 [...] Ord15 CALCIUM 8.7 mg/dL 06/25/2017 Culture Wound [id number] WOUND CULTURE SEE NOTES 04/09/2017 Culture Wound [id number] Continued Results 04/09/2017 Amylase Ord34 AMYLASE 19 [...] 27.9 pg 03/22/2017 Cbc With Differential Ord2 Kidder% 8.3 % 03/22/2017 Cbc With Differential Ord2 [...] 1.35 K/ul 03/22/2017 Cbc With Differential Ord2 Kidder ABS# 1.4 K/ul 03/22/2017 Cbc With Differential Ord2 Eos ABS# 0.2 K/ul 03/22/2017 Cbc With Differential Ord2 Baso ABS# 0.0 K/ul 03/22/2017 Comp Metabolic Zha905 NA 134 mEq/L 03/22/2017 Comp Metabolic Utk767 K 4.5 mEq/L 03/22/2017 Comp Metabolic Ivs712 CL 93 mEq/L 03/22/2017 Comp Metabolic Nte228 CO2 31.0 mEq/L 03/22/2017 Comp Metabolic Uco182 ANION GAP 15 03/22/2017 Comp Metabolic Yiu344 GLUCOSE 198 mg/dL 03/22/2017 Comp Metabolic Jsu504 Creat 1.5 mg/dL 03/22/2017 Comp Metabolic Ezt925 eGFR 50 ml/min/1.73m2 03/22/2017 Comp Metabolic Woo245 BUN 32 mg/dL 03/22/2017 Comp Metabolic Kfl031 B/C Ratio 21.6 Ratio 03/22/2017 Comp Metabolic Goz248 CALCIUM 8.4 mg/dL 03/22/2017 Comp Metabolic Utx493 ALK PHOS 245 U/L 03/22/2017 Comp Metabolic Jby755 AST(SGOT) 18 U/L 03/22/2017 Comp Metabolic Ifc733 ALT(SGPT) 17 U/L 03/22/2017 Comp Metabolic Imb331 BILI T 0.8 mg/dL 03/22/2017 Comp Metabolic Rsp508 ALBUMIN 2.9 g/dL 03/22/2017 Comp Metabolic Phv267 TPRO 6.3 g/dL 03/22/2017 Comp Metabolic Lja606 GLOB 3.4 g/dL 03/22/2017 Comp Metabolic Plw631 A/G Ratio 0.8 Ratio 03/22/2017 Comp Metabolic Lqh653 Osmo 281 mOsmo 03/22/2017 Lipase Gqs996 LIPASE 12 U/L 03/22/2017 Comp Metabolic Bma987 NA 142 mEq/L 03/09/2017 Comp Metabolic Rni936 K 4.8 mEq/L 03/09/2017 Comp Metabolic Gmw933 CL 103 mEq/L 03/09/2017 Comp Metabolic Gxr806 CO2 30.0 mEq/L 03/09/2017 Comp Metabolic Btq902 ANION GAP 14 03/09/2017 Comp Metabolic Eij482 GLUCOSE 152 mg/dL 03/09/2017 Comp Metabolic Uze111 Creat 1.3 mg/dL 03/09/2017 Comp Metabolic Sla172 eGFR 56 ml/min/1.73m2 03/09/2017 Comp Metabolic Pgo237 BUN 23 mg/dL 03/09/2017 Comp Metabolic Jsy065 B/C Ratio 17.3 Ratio 03/09/2017 Comp Metabolic Zmm115 CALCIUM 8.5 mg/dL 03/09/2017 Comp Metabolic Rya418 ALK PHOS 97 U/L 03/09/2017 Comp Metabolic Zef374 AST(SGOT) 10 U/L 03/09/2017 Comp Metabolic Rci562 ALT(SGPT) 6 U/L 03/09/2017 Comp Metabolic Ydw722 BILI T 0.4 mg/dL 03/09/2017 Comp Metabolic Aan535 ALBUMIN 3.4 g/dL 03/09/2017 Comp Metabolic Wrv801 TPRO 6.2 g/dL 03/09/2017 Comp Metabolic Dus932 GLOB 2.8 g/dL 03/09/2017 Comp Metabolic Woo003 A/G Ratio 1.2 Ratio 03/09/2017 Comp Metabolic Zcn876 Osmo 290 mOsmo 03/09/2017 Free T4 Pvc780 FREE T4 0.86 ng/dL 03/08/2017 Cbc With [...] 28.2 pg 03/08/2017 Cbc With Differential Ord2 Kidder% 8.7 % 03/08/2017 Cbc With Differential Ord2 [...] 1.63 K/ul 03/08/2017 Cbc With Differential Ord2 Kidder ABS# 0.9 K/ul 03/08/2017 Cbc With Differential Ord2 Eos ABS# 0.5 K/ul 03/08/2017 Cbc With Differential Ord2 Baso ABS# 0.0 K/ul 03/08/2017 Tsh Ord6 hTSH II 4.52 uIU/mL 03/08/2017 %Hba1C Bpn792 % HbA1c 43728- 6 8.5 % 03/08/2017 %Hba1C Kkk561 Gluc Ave 197 mg/dL 03/08/2017 %Hba1C Vwp349 % HbA1c 53760- 6 9.8 % 12/04/2016 %Hba1C Sgn150 Gluc Ave 235 mg/dL 12/04/2016 Tsh Ord6 hTSH II 10.65 uIU/mL 11/30/2016 Comp Metabolic Odu885 NA 134 mEq/L 11/30/2016 Comp Metabolic Tge630 K 5.0 mEq/L 11/30/2016 Comp Metabolic Bys958 CL 95 mEq/L 11/30/2016 Comp Metabolic Pvv301 CO2 34.0 mEq/L 11/30/2016 Comp Metabolic Qse152 ANION GAP 10 11/30/2016 Comp Metabolic Vac250 GLUCOSE 226 mg/dL 11/30/2016 Comp Metabolic Oik615 Creat 1.3 mg/dL 11/30/2016 Comp Metabolic Jfy049 eGFR 56 ml/min/1.73m2 11/30/2016 Comp Metabolic Iyb123 BUN 21 mg/dL 11/30/2016 Comp Metabolic Wnx122 B/C Ratio 15.7 Ratio 11/30/2016 Comp Metabolic Hbx488 CALCIUM 8.9 mg/dL 11/30/2016 Comp Metabolic Lre998 ALK PHOS 112 U/L 11/30/2016 Comp Metabolic Urq030 AST(SGOT) 9 U/L 11/30/2016 Comp Metabolic Wkl136 ALT(SGPT) 7 U/L 11/30/2016 Comp Metabolic Tgk968 BILI T 0.6 mg/dL 11/30/2016 Comp Metabolic Zla306 ALBUMIN 3.6 g/dL 11/30/2016 Comp Metabolic Nzs985 TPRO 6.4 g/dL 11/30/2016 Comp Metabolic Udq217 GLOB 2.9 g/dL 11/30/2016 Comp Metabolic Rve094 A/G Ratio 1.2 Ratio 11/30/2016 Comp Metabolic Cxb343 Osmo 278 mOsmo 11/30/2016 Lipid Ord30 CHOL [...] 30.6 pg 11/30/2016 Cbc With Differential Ord2 Kidder% 7.9 % 11/30/2016 Cbc With Differential Ord2 [...] 1.34 K/ul 11/30/2016 Cbc With Differential Ord2 Kidder ABS# 0.8 K/ul 11/30/2016 Cbc With Differential Ord2 Eos ABS# 0.3 K/ul 11/30/2016 Cbc With Differential Ord2 Baso ABS# 0.0 K/ul 11/30/2016 Free T4 Wbu594 FREE T4 0.89 ng/dL 11/30/2016 Review of [...] erythematous 10/18/2018 None Full Exam - General 1995 Neurologic cranial nerves Overall: crainial nerves 2 [...] Codes Date ADMIN PNEUMOCOCCAL VACCINE SNOMED CT: 36042794 CPT-4: G0009 02/05/2018 Pneumococcal Polysaccharide Vaccine, 23-Valent, Ad CPT-4: 03472 02/05/2018 PPPS, SUBSEQ VISIT CPT- 4: G0439 11/30/2017 URINALYSIS NONAUTO W/O SCOPE CPT-4: 56458 03/22/2017 URINALYSIS NONAUTO W/O SCOPE CPT-4: 50590 03/21/2017 PPPS, SUBSEQ VISIT CPT- 4: G0439 11/30/2016 PNEUMOCOCCAL VACC 13 JAVIER IM Formatting Model/CDA Sections, Assigned to SNOMED CT: 76152277 CPT-4: 97952Cdkblab 11/30/2016 ADMIN PNEUMOCOCCAL VACCINE SNOMED CT: 38580188 CPT-4: G0009 11/30/2016 Vital Signs Date Vital 02/25/2019 Blood Pressure 1: 110/58 Code: 8480-6 BMI: 38.3 Code: 97875-0 Heart Rate 1: 47 bpm Height: 5'10" SpO2: 97% Weight: 267 lbs 10/18/2018 Blood Pressure 1: 118/70 Code: 8480-6 BMI: 39.0 Code: 46568-4 Heart Rate 1: 86 bpm Height: 5'10" SpO2: 95% Weight: 272 lbs 10/14/2018 Blood Pressure 1: 120/56 Code: 8480-6 Heart Rate 1: 67 bpm Height: 5'10" SpO2: 92% 10/10/2018 Blood Pressure 1: 126/70 Code: 8480-6 BMI: 34.7 Code: 81879-8 Heart Rate 1: 80 bpm Height: 5'10" SpO2: 96% Temperature: 37.1 (C) / 98.7 (F) Weight: 242 lbs 10/04/2018 Blood Pressure 1: 120/70 Code: 8480-6 Height: 5'10" SpO2: 96% 08/29/2018 Blood Pressure 1: 104/60 Code: 8480-6 BMI: 34.6 Code: 30255-1 Heart Rate 1: 68 bpm Height: 5'10" SpO2: 98% Weight: 241 lbs 02/25/2018 Blood Pressure 1: 120/70 Code: 8480-6 BMI: 37.0 Code: 57895-4 Heart Rate 1: 51 bpm Height: 5'10" SpO2: 97% Weight: 258 lbs 02/20/2018 Blood Pressure 1: 124/70 Code: 8480-6 BMI: 38.0 Code: 83942-0 Heart Rate 1: 60 bpm Height: 5'10" SpO2: 96% Weight: 265 lbs 02/05/2018 Blood Pressure 1: 116/66 Code: 8480-6 BMI: 38.0 Code: 28024-2 Heart Rate 1: 63 bpm Height: 5'10" SpO2: 98% Weight: 265 lbs 11/30/2017 Blood Pressure 1: 132/60 Code: 8480-6 BMI: 37.0 Code: 54150-8 Heart Rate 1: 100 bpm Height: 5'10" SpO2: 96% Waist Measure (cm): 122 cm Weight: 258 lbs 11/08/2017 Blood Pressure 1: 126/64 Code: 8480-6 BMI: 37.2 Code: 50430-6 Heart Rate 1: 92 bpm Height: 5'10" SpO2: 94% Weight: 259 lbs 09/20/2017 Blood Pressure 1: 122/68 Code: 8480-6 BMI: 36.9 Code: 59254-5 Heart Rate 1: 57 bpm Height: 5'10" SpO2: 96% Weight: 257 lbs 06/25/2017 Blood Pressure 1: 124 Code: 8480-6 BMI: 37.0 Code: 55418-0 Height: 5'10" Weight: 258 lbs 06/07/2017 Blood Pressure 1: 12264 Code: 8480-6 BMI: 37.0 Code: 15334-4 Heart Rate 1: 60 bpm Height: 5'10" SpO2: 94% Temperature: 36.4 (C) / 97.6 (F) Weight: 258 lbs 05/03/2017 Blood Pressure 1: 118 Code: 8480-6 BMI: 38.2 Code: 81738-8 Heart Rate 1: 52 bpm Height: 5'10" SpO2: 98% Weight: 266 lbs 04/02/2017 Blood Pressure 1: 118 Code: 8480-6 BMI: 38.2 Code: 43866-6 Heart Rate 1: 53 bpm Height: 5'10" SpO2: 93% Weight: 266 lbs 03/26/2017 Blood Pressure 1: 114/62 Code: 8480-6 BMI: 38.3 Code: 26135-7 Height: 5'10" Weight: 267 lbs 03/22/2017 Blood Pressure 1: 12264 Code: 8480-6 BMI: 40.0 Code: 34778-8 Heart Rate 1: 52 bpm Height: 5'10" SpO2: 94% Weight: 279 lbs 03/08/2017 Blood Pressure 1: 124/ Code: 8480-6 BMI: 39.4 Code: 99556-7 Heart Rate 1: 51 bpm Height: 5'10" SpO2: 94% Weight: 274 lbs 8 oz 12/06/2016 Blood Pressure 1: 126/62 Code: 8480-6 BMI: 40.3 Code: 65642-3 Heart Rate 1: 50 bpm Height: 5'10" SpO2: 94% Weight: 281 lbs 11/30/2016 Blood Pressure 1: 112/62 Code: 8480-6 BMI: 40.3 Code: 13935-5 Heart Rate 1: 52 bpm Height: 5'10" SpO2: 93% Waist Measure (cm): 135 cm Weight: 281 lbs 11/28/2016 Blood Pressure 1: 132/72 Code: 8480-6 BMI: 40.3 Code: 82024-3 Heart Rate 1: 50 bpm Height: 5'10" Weight: 281 lbs 05/04/2016 Blood Pressure 1: 128/78 Code: 8480-6 BMI: 38.5 Code: 54942-9 Heart Rate 1: 74 bpm Height: 5'10" SpO2: 98% Weight: 268 lbs 8 oz 11/04/2015 Blood Pressure 1: 136/60 Code: 8480-6 BMI: 38.0 Code: 45956-5 Heart Rate 1: 55 bpm Height: 5'10" SpO2: 94% Weight: 265 lbs 07/30/2015 Blood Pressure 1: 128/74 Code: 8480-6 BMI: 38.0 Code: 29379-6 Heart Rate 1: 47 bpm Height: 5'10" SpO2: 97% Weight: 265 lbs 01/26/2015 Blood Pressure 1: 122/64 Code: 8480-6 BMI: 34.0 Code: 73340-9 Heart Rate 1: 68 bpm Height: 5'10" [...] Encounters Encounter Performer Location Codes Date ( [id number] EST. PATIENT, LEVEL IV Diagnosis: Essential (primary) hypertension[ICD10: I10] Diagnosis: Type 2 diabetes mellitus with hyperglycemia[ICD10: E11.65] Diagnosis: Chronic pain syndrome[ICD10: G89.4] Diagnosis: Chronic kidney disease, stage 3 (moderate)[ICD10: N18.3] Sarah Sanchez MD, [facility] CPT-4: 32979 02/25/2019 [id number] EST. PATIENT, LEVEL III Diagnosis: Localized edema[ICD10: R60.0] Diagnosis: Cellulitis of left lower limb[ICD10: L03.116] Diagnosis: Cellulitis of right lower limb[ICD10: L03.115] Kiki Sanchez MD, [facility] [facility] 92895 10/18/2018 [id number] EST. PATIENT, LEVEL III Diagnosis: Localized edema[ICD10: R60.0] Diagnosis: Cellulitis of left lower limb[ICD10: L03.116] Diagnosis: Cellulitis of right lower limb[ICD10: L03.115] Diagnosis: Chronic obstructive pulmonary disease, unspecified[ICD10: J44.9] Diagnosis: Weakness[ICD10: R53.1] Kiki Sanchez MD, [facility] CPT-4: 81663 10/14/2018 02976 EST. PATIENT, LEVEL III Diagnosis: Localized edema[ICD10: R60.0] Diagnosis: Cellulitis of left lower limb[ICD10: L03.116] Diagnosis: Cellulitis of right lower limb[ICD10: L03.115] Kiki Sanchez MD, [facility] CPT-4: 95822 10/10/2018 ([id number]) 07938 EST. 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 PATIENT, LEVEL IV Diagnosis: Type 2 diabetes mellitus with hyperglycemia[ICD10: E11.65] Diagnosis: Essential (primary) hypertension[ICD10: I10] Diagnosis: Malignant neoplasm of prostate[ICD10: C61] Sarah Sanchez MD, [facility] CPT-4: 07822 08/29/2018 ([id number]) 00774 EST. PATIENT, LEVEL IV Diagnosis: Malignant neoplasm of prostate[ICD10: C61] Dorene Sanchez MD, [facility] CPT-4: 71478 02/25/2018 [id number] EST. PATIENT, LEVEL IV Diagnosis: Generalized abdominal pain[ICD10: R10.84] Diagnosis: Unspecified jaundice[ICD10: R17] Diagnosis: Gross hematuria[ICD10: R31.0] Kiki Sanchez MD, [facility] CPT-4: 72991 02/20/2018 ([id number]) 01081 EST. PATIENT, LEVEL IV Diagnosis: Type 2 diabetes mellitus with hyperglycemia[ICD10: E11.65] Diagnosis: Essential (primary) hypertension[ICD10: I10] Diagnosis: Chronic kidney disease, stage 3 (moderate)[ICD10: N18.3] Diagnosis: Chronic pain syndrome[ICD10: G89.4] Diagnosis: Other specified hypothyroidism[ICD10: E03.8] Diagnosis: Encounter for screening for malignant neoplasm of prostate[ICD10: Z12.5] Diagnosis: Encounter for immunization[ICD10: Z23] Sarah Sanchez MD, [facility] CPT-4: 57639 02/05/2018 ([id number]) 39880 EST. PATIENT, LEVEL IV Diagnosis: Type 2 diabetes mellitus with hyperglycemia[ICD10: E11.65] Diagnosis: Essential (primary) hypertension[ICD10: I10] Dorene Sanchez MD, [facility] CPT-4: 75306 11/08/2017 ([id number]) 41269 EST. PATIENT, LEVEL IV Diagnosis: Type 2 diabetes mellitus with hyperglycemia[ICD10: E11.65] Diagnosis: Chronic pain syndrome[ICD10: G89.4] Diagnosis: Essential (primary) hypertension[ICD10: I10] Diagnosis: Chronic kidney disease, stage 3 (moderate)[ICD10: N18.3] Diagnosis: Localized edema[ICD10: R60.0] Dorene Sanchez MD, [facility] CPT-4: 05814 09/20/2017 ([id number]) 34682 EST. PATIENT, LEVEL III Diagnosis: Type 2 diabetes mellitus with hyperglycemia[ICD10: E11.65] Sarah Sanchez MD, [facility] CPT-4: 39297 06/25/2017 ([id number]) 87746 EST. PATIENT, LEVEL III Diagnosis: Cellulitis of left lower limb[ICD10: L03.116] Sarah Sanchez MD, [facility] CPT-4: 13947 06/07/2017 ([id number]) 51326 EST. PATIENT, LEVEL III Diagnosis: Localized edema[ICD10: R60.0] Diagnosis: Type 2 diabetes mellitus with foot ulcer[ICD10: E11.621] Sarah Sanchez MD, [facility] CPT-4: 81423 05/03/2017 ([id number]) 19044 EST. PATIENT, LEVEL III Diagnosis: Cellulitis of left lower limb[ICD10: L03.116] Diagnosis: Localized edema[ICD10: R60.0] Sarah Sanchez MD, [facility] CPT-4: 42884 04/02/2017 ([id number]) Miscellaneous no charge Diagnosis: Localized edema[ICD10: R60.0] Diagnosis: Cellulitis of left lower limb[ICD10: L03.116] Sarah Sanchez MD, [facility] CPT-4: 80750 03/26/2017 ([id number]) 75479 EST. 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 PATIENT, LEVEL IV Diagnosis: Type 2 diabetes mellitus with hyperglycemia[ICD10: E11.65] Diagnosis: Other specified hypothyroidism[ICD10: E03.8] Diagnosis: Essential (primary) hypertension[ICD10: I10] Sarah Sanchez MD, [facility] CPT-4: 96894 03/08/2017 ([id number]) 89680 EST. PATIENT, LEVEL III Diagnosis: Type 2 diabetes mellitus with hyperglycemia[ICD10: E11.65] Diagnosis: Other specified hypothyroidism[ICD10: E03.8] Sarah Sanchez MD, [facility] CPT-4: 38214 12/06/2016 ([id number]) 71786 EST. PATIENT, LEVEL IV Diagnosis: Essential (primary) hypertension[ICD10: I10] Diagnosis: Chronic kidney disease, stage 3 (moderate)[ICD10: N18.3] Dorene Sanchez MD, [facility] CPT-4: 12444 11/28/2016 ([id number]) 25985 EST. PATIENT, LEVEL IV Diagnosis: Essential (primary) hypertension[ICD10: I10] Diagnosis: Chronic pain syndrome[ICD10: G89.4] Diagnosis: Chronic kidney disease, stage 3 (moderate)[ICD10: N18.3] Diagnosis: Vitamin B12 deficiency anemia due to intrinsic factor deficiency[ICD10: D51.0] Diagnosis: Other specified hypothyroidism[ICD10: E03.8] Dorene Sanchez MD, [facility] CPT-4: 40582 05/04/2016 43931 EST. PATIENT, LEVEL III Diagnosis: Chronic pain syndrome[ICD10: G89.4] Diagnosis: Essential (primary) hypertension[ICD10: I10] Diagnosis: Other specified hypothyroidism[ICD10: E03.8] Kiki Sanchez MD, [facility] CPT-4: 31027 11/04/2015 74913 EST. PATIENT, LEVEL III Diagnosis: Chronic pain syndrome[ICD10: G89.4] Diagnosis: Essential (primary) hypertension[ICD10: I10] Kiki Sanchez MD, [facility] CPT-4: 19871 07/30/2015 ([id number]) OFFICE/OUTPATIENT VISIT NEW Diagnosis: ESSENTIAL HYPERTENSION[ICD9: 401.9] Diagnosis: HYPOTHYROIDISM[ICD9: 244.9] Diagnosis: ANEMIA[ICD9: 285.9] Diagnosis: Vitamin B12 deficiency[ICD9: 266.2] Diagnosis: CHRONIC PAIN SYNDROME[ICD9: 338.4] Diagnosis: Chronic renal insufficiency, stage III (moderate)[ICD9: 585.3] Diagnosis: GOUT[ICD9: 274.9] Dorene Sanchez MD, [facility] CPT-4: 99371 01/26/2015 Plan of Care Planned Activity Notes [...] Patient Education: Patient Medication Summary Completed 02/25/2019 Care Plan: %Hba1C LOINC : 60543-9 Pending 02/25/2019 Care Plan: Comp Metabolic Pending 02/25/2019 Visit Plan: Edema - pt has [...] warmth, discharge. 10/18/2018 Appointment: Kiki Menjivar WPtel: [facility]5 [facility] (30 min) [facility] 10/18/2018 Patient Education: Patient Medication Summary [...] to weakness 10/14/2018 Appointment: Kiki Menjivar WPtel: [phone] [facility] (30 min) Complex 10/14/2018 Patient Education: Patient [...] warmth, discharge. 10/10/2018 Appointment: Kiki Menjivar WPtel: [phone] [facility] (30 min) Complex 10/10/2018 Patient Education: Patient Medication Summary Completed 10/10/2018 Visit Plan: DM with peripheral neuropathy-paperwork completed for diabetic shoes and will fax to Dr Bauer HTN-controlled -no changes Vuuzvzedk-AUGU-PIM-prostate cancer with mets- patient qualifies for oxygen-oxy gen saturation dropped to 86% on room air during ambulation but increased to 99% on 2L NC at rest-will send orders to [facility] for continue oxygen at 2L per nasal cannula 10/04/2018 Appointment: Sarah Hernandes WPtel: [phone] [phone] [place] (30 min) Complex 10/04/2018 Patient Education: [...] Moreno 08/29/2018 Appointment: Sarah Hernandes WPtel: [facility]5 [phone] (15 min) Moderate 08/29/2018 Patient Education: Patient Medication Summary Completed 08/29/2018 Referral: Edgard Rviera MD WPtel: Via [address] Moreno. Patient informed. Referral info faxed. Completed 02/27/2018 Visit Plan: Recurrent prostate cancer - I have recommended a referral to Dr. Rivera. We discussed the case at length today- he is not interested in extensive treatment, but if possible to extend his quantity and quality of life, he would like to try. 02/25/2018 Appointment: Dorene Sanchez WPtel: [facility]2 [facility] (15 min) Moderate 02/25/2018 Patient Education: Patient Medication Summary Completed 02/25/2018 Care Plan: Referral Order SNOMED-CT : [id number] Pending 02/25/2018 Visit Plan: Intermittent abdominal pain, jaundice, itching - will check labs and treat as indicated - pt is to go to the ER with any acute change in symptoms or any acute concerns. 02/20/2018 Appointment: Kiki Menjivar WPtel: [facility] [place] (30 min) Complex 02/20/2018 Patient Education: [...] control. 02/05/2018 Appointment: Sarah Hernandes WPtel: [address] (30 min) [facility] 02/05/2018 Patient Education: Patient Medication Summary [...] surrogate. 11/30/2017 Appointment: [facility]andes [facility]el: [phone] [facility] - Annual Wellness Visit 11/30/2017 Patient Education: [...] Appointment: Dorene Sanchez [facility]el[phone] (15 min) Moderate 11/08/2017 Patient Education: Patient [...] over-medication. 09/20/2017 Appointment: Dorene Sanchez [facility]Ptel: [phone] [place] (15 min) Moderate 09/20/2017 Patient Education: [...] control. 06/25/2017 Appointment: Sarah Hernandes WPtel: [phone] [phone] (30 min) Complex 06/25/2017 Patient Education: Patient Medication Summary Completed 06/25/2017 Appointment: Sarah Hernandes WPtel: [phone] [phone] (30 min) Complex 06/22/2017 Visit Plan: Cellulitis - start oral antibiotics as previously directed, return to clinic as previously directed, call for acute change in symptoms, worsening redness, warmth, discharge. 06/07/2017 Appointment: Sarah Hernandes WPtel: [phone] [phone] (30 min) Complex 06/07/2017 Patient Education: Patient Medication Summary Completed 06/07/2017 Patient Education: Obesity Completed 06/07/2017 Appointment: Dorene Sanchez WPtel: [phone] [facility] [place] (15 min) Moderate 05/31/2017 Visit Plan: Edema-significantly improved-no changes Ulcer-left lower leg and foot-seeing Dr Norwood at wound care-appt scheduled with Dr Frausto for vascular evaluation 05/03/2017 Appointment: Sarah Hernandes WPtel: [phone] [phone] [place] (15 min) Moderate 05/03/2017 Patient Education: Patient Medication Summary Completed 05/03/2017 Patient Education: Obesity Completed 05/03/2017 Visit Plan: Jyxwyzigfk-wkctmprhu-iiuinob to finish abx-no further treatment indicated Edema-significantly improved-no longer weeping-continue unna boots twice weekly with home health 04/02/2017 Appointment: Sarah Hernandes WPtel: [phone] [phone] [place] (30 min) Complex 04/02/2017 Patient Education: Patient Medication Summary Completed 04/02/2017 Patient Education: Obesity Completed 04/02/2017 Visit Plan: Cellulitis-left leg-continue levaquin Edema-increase lasix/potassium-consult [facility] for unna boots/dressing changes 03/26/2017 Appointment: Sarah Hernandes WPtel: [phone] (15 min) Moderate 03/26/2017 Patient Education: Patient [...] indomethacin-stop aleve 03/22/2017 Appointment: Sarah Hernandes WPtel: [address] [place], [place] [phone] (15 min) Moderate 03/22/2017 Patient Education: Patient [...] of control. 03/08/2017 Appointment: Sarah Hernandes WPtel: [address] [place] [phone] (30 min) Complex 03/08/2017 Patient Education: Patient [...] surrogate. 11/30/2016 Appointment: Sarah Hernandes WPtel: [phone] [phone] [facility] - Annual Wellness Visit 11/30/2016 Patient Education: [...] in fluids. 11/28/2016 Appointment: Dorene Sanchez WPtel: [facility] (15 min) Moderate 11/28/2016 Patient Education: Patient [...] 01/26/2015 Referral: Edgard Rivera MD WPtel: [address] [place] Referral Appointment Requested Instructions [...] POTASSIUM TO TWICE DAILY [place] FOR UNNA BOOTS -WOUND CARE . Cellulitis-left leg-continue levaquin Edema-increase lasix/potassium-consult [facility] for unna boots/dressing changes WRAP [...] HOSPITAL PHARMACY RECOMMEND OBTAINING MEDICAL POWER OF INTELLECTUAL PROPERTY LAWYER AND LIVING WILL PATIENT DOES NOT HAVE [...] GENERAL HOSPITAL RECOMMEND OBTAINING MEDICAL POWER OF INTELLECTUAL PROPERTY LAWYER AND LIVING WILL PATIENT DOES NOT HAVE [...] GENERAL HOSPITAL RECOMMEND OBTAINING MEDICAL POWER OF INTELLECTUAL PROPERTY LAWYER AND LIVING WILL PATIENT DOES NOT HAVE [...] in symptoms, worsening redness, warmth, discharge. . Cpaphitusg-susuiklwd-zbambwh to finish abx-no further treatment indicated Edema-significantly [...] fax to Dr Bauer HTN-controlled -no changes Tyjzeagyg-JNIM-XQK-prostate cancer with mets- patient qualifies for oxygen- [...]
--- OUTSIDE RECORDS SUMMARY | 2019-03-24 08:12 | XMS REPORT | CCD ---
Author Author Dorene Sanchez Organization [facility] Address [address] [place] [address] Phone Care Team Providers Care Cook Frozen Dessert Name Role Phone PP Unavailable CCM Unavailable Summary Purpose Interface Exchange Insurance Providers Payer name Policy type / Coverage type Covered republican ID Effective Begin Date Effective End Date WPS Medicare Part B Medicare Part B [id number] Unknown Unknown Family history Father Diagnosis Age At Onset Stroke Unknown Mother Diagnosis Age At Onset Stroke Unknown Diabetes mellitus Type 2 Unknown Social History Social History Element Codes Description Effective Dates Tobacco history SNOMED CT: 660173064 Currently uses smokeless tobacco Chews 05/04/2016 Marital status Unknown 01/26/2015 Number of children Unknown 3 01/26/2015 Employment Unknown Retired 01/26/[address]: 738465753 Never drinks alcohol quit in July 2014 [...] 9: 782.4 ICD-10: R17 Active 02/20/2018 Unknown Chronic kidney disease, stage 3 (moderate) ICD-9: 585.3 ICD-10: N18.3 Active 01/25/2015 Unknown Chronic pain syndrome ICD- 9: 338.4 ICD-10: G89.4 Active 01/25/2015 Unknown Encounter [...] ICD- 9: 782.4 ICD-10: R17 02/20/2018 Active Chronic kidney disease, stage 3 (moderate) ICD-9: 585.3 ICD-10: N18.3 01/25/2015 Active Chronic pain syndrome ICD- 9: 338.4 ICD-10: G89.4 01/25/2015 Active Encounter for [...] Fill Instructions oxycodone 20 mg tablet RxNorm: 2474148 1/2 Tablet(s) PO Q6 as needed 01/21/2019 02/19/2019 Active oxycodone 20 mg tablet RxNorm: 9470401 1/2 Tablet(s) PO Q6 as needed 12/18/2018 01/16/2019 Inactive oxycodone 20 mg tablet RxNorm: 2991859 1/2 Tablet(s) PO Q6 as needed 11/12/2018 12/11/2018 Inactive gabapentin 100 mg capsule RxNorm: 111715 1 Capsule(s) BID 11/05/2018 05/03/2019 Active potassium chloride ER 10 mEq tablet,extended release RxNorm: 514640 TAKE ONE TABLET BY MOUTH DAILY 11/04/2018 11/19/2018 Inactive Probiotic 10 billion cell capsule RxNorm: 2298973 1 Capsule(s) PO BID 10/25/2018 10/24/2018 Inactive Keflex 500 mg capsule RxNorm: 036144 1 Capsule(s) PO QID 10/25/2018 10/31/2018 Inactive Probiotic 10 billion cell capsule RxNorm: 0418494 1 Capsule(s) PO BID 10/25/2018 10/31/2018 Inactive oxycodone 20 mg tablet RxNorm: 4103741 1/2 Tablet(s) PO Q6 as needed 10/14/2018 11/11/2018 Inactive Lasix 20 mg tablet RxNorm: 829857 1 Tablet(s) PO BID 10/10/2018 04/07/2019 Active Keflex 500 mg capsule RxNorm: 006882 1 Capsule(s) PO TID 10/10/2018 10/19/2018 Inactive potassium chloride ER 10 mEq tablet,extended release RxNorm: 382498 1 Tablet(s) PO daily 10/10/2018 11/03/2018 Inactive albuterol sulfate 2.5 mg/3 mL (0.083 %) solution for nebulization RxNorm: 867274 1 Milliliter(s) INH TID DX J44.9 10/04/2018 01/31/2019 Active gabapentin 100 mg capsule RxNorm: 327750 TAKE ONE CAPSULE BY MOUTH IN THE EVENING AT 5PM 09/24/2018 11/04/2018 Inactive oxycodone 20 mg tablet RxNorm: 6276232 1/2 Tablet(s) PO Q6 as needed 09/12/2018 10/11/2018 Inactive oxycodone 20 mg tablet RxNorm: 6815126 1/2 Tablet(s) PO Q6 as needed 08/15/2018 09/11/2018 Inactive oxycodone 20 mg tablet RxNorm: 2010477 1/2 Tablet(s) PO Q6 as needed 07/16/2018 08/14/2018 Inactive oxycodone 20 mg tablet RxNorm: 3028508 1/2 Tablet(s) PO Q6 as needed 06/14/2018 07/13/2018 Inactive gabapentin 100 mg capsule RxNorm: 167222 TAKE ONE CAPSULE BY MOUTH IN THE EVENING AT 5PM 05/30/2018 09/23/2018 Inactive oxycodone 20 mg tablet RxNorm: 9081986 1/2 Tablet(s) PO Q6 as needed 05/15/2018 06/13/2018 Inactive oxycodone 20 mg tablet RxNorm: 7148939 1/2 Tablet(s) PO Q6 as needed 04/12/2018 05/11/2018 Inactive oxycodone 20 mg tablet RxNorm: 2612643 1/2 Tablet(s) PO Q6 as needed 03/11/2018 04/09/2018 Inactive levothyroxine 200 mcg tablet RxNorm: 854146 1 Tablet(s) PO daily 02/21/2018 02/15/2019 Active Cipro 500 mg tablet RxNorm: 786300 1 Tablet(s) PO BID 02/21/2018 02/20/2018 Inactive levothyroxine 200 mcg tablet RxNorm: 880870 1 Tablet(s) PO daily 02/21/2018 02/20/2018 Inactive Cipro 500 mg tablet RxNorm: 332701 1 Tablet(s) PO BID 02/21/2018 03/02/2018 Inactive oxycodone 20 mg tablet RxNorm: 6840257 1/2 Tablet(s) PO Q6 as needed 02/12/2018 03/10/2018 Inactive oxycodone 20 mg tablet RxNorm: 1978705 1/2 Tablet(s) PO Q6 as needed 01/16/2018 02/11/2018 Inactive gabapentin 100 mg capsule RxNorm: 347368 TAKE ONE CAPSULE BY MOUTH IN THE EVENING AT 5PM 01/15/2018 05/29/2018 Inactive bisoprolol 5 mg-hydrochlorothiazide 6.25 mg tablet RxNorm: 719836 TAKE ONE TABLET BY MOUTH DAILY 01/01/2018 12/26/2018 Inactive oxycodone 20 mg tablet RxNorm: 6594472 1/2 Tablet(s) PO Q6 as needed 12/20/2017 01/14/2018 Inactive oxycodone 20 mg tablet RxNorm: 5213074 1/2 Tablet(s) PO Q6 as needed 11/20/2017 12/19/2017 Inactive Victoza 2-Dino 0.6 mg/0.1 mL (18 mg/3 mL) subcutaneous pen injector RxNorm: 418671 1.2 Milligram(s) SQ daily 11/08/2017 12/07/2017 Inactive oxycodone 20 mg tablet RxNorm: 3903001 1/2 Tablet(s) PO Q6 as needed 10/19/2017 11/17/2017 Inactive gabapentin 100 mg capsule RxNorm: 333074 1 Capsule(s) PO QPM at 5 pm 09/20/2017 01/14/2018 Inactive Lasix 20 mg tablet RxNorm: 632219 1 Tablet(s) QAM at 5pm 09/20/2017 03/18/2018 Inactive oxycodone 20 mg tablet RxNorm: 2739896 1/2 Tablet(s) PO Q6 as needed 09/18/2017 10/17/2017 Inactive oxycodone 20 mg tablet RxNorm: 9740192 1/2 Tablet(s) PO Q6 as needed 08/14/2017 09/12/2017 Inactive ketoconazole 2 % topical cream RxNorm: 057894 1 Gram(s) TOP BID to affected area until healed 08/03/2017 No Stop Date Active oxycodone 20 mg tablet RxNorm: 8440909 1/2 Tablet(s) PO Q6 as needed 07/17/2017 08/13/2017 Inactive pen needle, diabetic 31 gauge x 5/16" RxNorm: 1 Unit Dose Miscellaneous daily 06/25/2017 03/21/2018 Inactive daily use with victoza Bactrim DS 800 mg-160 mg tablet RxNorm: 599384 1 Tablet(s) PO BID Dr Norwood 06/25/2017 07/04/2017 Inactive Victoza 2-Dino 0.6 mg/0.1 mL (18 mg/3 mL) subcutaneous pen injector RxNorm: 892827 0.6 Milligram(s) SQ daily 06/25/2017 07/24/2017 Inactive doxycycline hyclate 100 mg tablet RxNorm: 162344 1 Tablet(s) PO BID Dr Norwood 06/21/2017 06/30/2017 Inactive oxycodone 20 mg tablet RxNorm: 8316026 1/2 Tablet(s) PO Q6 as needed 06/14/2017 07/13/2017 Inactive clindamycin 150 mg capsule RxNorm: 826295 1 Capsule(s) PO Q8 06/07/2017 06/16/2017 Inactive levothyroxine 175 mcg tablet RxNorm: 611359 TAKE ONE TABLET BY MOUTH DAILY 06/04/2017 09/01/2017 Inactive levothyroxine 175 mcg tablet RxNorm: 428364 TAKE ONE TABLET BY MOUTH DAILY 06/04/2017 11/30/2017 Inactive bisoprolol 5 mg-hydrochlorothiazide 6.25 mg tablet RxNorm: 815048 TAKE ONE TABLET BY MOUTH DAILY 05/24/2017 11/19/2017 Inactive oxycodone 20 mg tablet RxNorm: 9165890 1/2 Tablet(s) PO Q6 as needed 05/14/2017 06/12/2017 Inactive potassium chloride ER 10 mEq capsule,extended release RxNorm: 426468 TAKE ONE CAPSULE BY MOUTH DAILY NEEDED FOR 5 DAYS THEN NEEDED WITH LASIX 04/17/2017 10/13/2017 Inactive Lasix 20 mg tablet RxNorm: 360248 TAKE ONE TABLET BY MOUTH DAILY NEEDED 04/17/2017 09/19/2017 Inactive oxycodone 20 mg tablet RxNorm: 1096798 1/2 Tablet(s) PO Q6 as needed 04/12/2017 05/11/2017 Inactive Colcrys 0.6 mg tablet RxNorm: 566271 2 tabs at onset then may repeat 1 tab in 1 hours if needed- Tablet(s) PO 04/09/2017 No Stop Date Active then take daily until gout resolved Bactrim DS 800 mg-160 mg tablet RxNorm: 317754 1 Tablet(s) PO BID 04/09/2017 04/08/2017 Inactive dc levaquin Bactrim DS 800 mg-160 mg tablet RxNorm: 238700 1 Tablet(s) PO BID 04/09/2017 04/15/2017 Inactive dc levaquin Levaquin 500 mg tablet RxNorm: 624106 1 Tablet(s) PO daily 04/03/2017 04/02/2017 Inactive Levaquin 500 mg tablet RxNorm: 300901 1 Tablet(s) PO daily 04/03/2017 06/06/2017 Inactive indomethacin 25 mg capsule RxNorm: 049271 1 Capsule(s) PO TID PRN 03/22/2017 03/22/2017 Inactive Lasix 20 mg tablet RxNorm: 372852 1 Tablet(s) PO QDAY PRN 03/22/2017 04/16/2017 Inactive daily x 5 days then as needed Levaquin 500 mg tablet RxNorm: 233212 1 Tablet(s) PO daily 03/22/2017 03/31/2017 Inactive potassium chloride ER 10 mEq capsule,extended release RxNorm: 204269 1 Capsule(s) PO QDAY PRN 03/22/2017 04/16/2017 Inactive daily x 5 days then as needed with lasix oxycodone 20 mg tablet RxNorm: 6998713 1/2 Tablet(s) PO Q6 as needed 03/08/2017 04/06/2017 Inactive bisoprolol 5 mg-hydrochlorothiazide 6.25 mg tablet RxNorm: 283887 TAKE ONE TABLET BY MOUTH DAILY 02/14/2017 05/14/2017 Inactive oxycodone 20 mg tablet RxNorm: 1008849 1/2 Tablet(s) PO Q6 as needed 02/08/2017 03/07/2017 Inactive oxycodone 20 mg tablet RxNorm: 3693850 1/2 Tablet(s) PO Q6 as needed 01/08/2017 02/06/2017 Inactive levothyroxine 175 mcg tablet RxNorm: 517385 1 Tablet(s) PO daily 12/06/2016 06/03/2017 Inactive [SAVINGS FOR NON-COVERED DRUGS -- BIN:[id number], N: ASPROD1, Group: XXXXX, ID# [id number], Questions: . THIS IS NOT INSURANCE.] oxycodone 20 mg tablet RxNorm: 2663467 1/2 Tablet(s) PO Q6 as needed 12/04/2016 01/02/2017 Inactive oxycodone 20 mg tablet RxNorm: 7017033 1/2 Tablet(s) PO Q6 as needed 11/09/2016 12/03/2016 Inactive bisoprolol 5 mg-hydrochlorothiazide 6.25 mg tablet RxNorm: 791356 TAKE ONE TABLET BY MOUTH DAILY 11/08/2016 02/05/2017 Inactive oxycodone 20 mg tablet RxNorm: 1851882 1/2 Tablet(s) PO Q6 as needed 10/05/2016 11/03/2016 Inactive oxycodone 20 mg tablet RxNorm: 5107877 1/2 Tablet(s) PO Q6 as needed 09/06/2016 10/04/2016 Inactive oxycodone 20 mg tablet RxNorm: 1445401 1/2 Tablet(s) PO Q6 as needed 08/07/2016 09/05/2016 Inactive oxycodone 20 mg tablet RxNorm: 3207588 1/2 Tablet(s) PO Q6 as needed 07/04/2016 08/06/2016 Inactive oxycodone 20 mg tablet RxNorm: 0497295 1/2 Tablet(s) PO Q6 as needed 05/29/2016 07/03/2016 Inactive levothyroxine 150 mcg tablet RxNorm: 450123 1 Tablet(s) PO daily 04/10/2016 04/09/2016 Inactive [SAVINGS FOR NON-COVERED DRUGS -- BIN:[id number], PCN: ASPROD1, Group: XXXXX, ID# [id number], Questions: . THIS IS NOT INSURANCE.] oxycodone 20 mg tablet RxNorm: 3262789 1/2 Tablet(s) PO Q6 as needed 04/10/2016 05/28/2016 Inactive levothyroxine 150 mcg tablet RxNorm: 255534 1 Tablet(s) PO daily 04/10/2016 10/06/2016 Inactive [SAVINGS FOR NON-COVERED DRUGS -- BIN:[id number], PCN: ASPROD1, Group: XXXXX, ID# [id number], Questions: . THIS IS NOT INSURANCE.] bisoprolol 5 mg-hydrochlorothiazide 6.25 mg tablet RxNorm: 108099 1 Tablet(s) PO daily 02/16/2016 12/31/2017 Inactive oxycodone 20 mg tablet RxNorm: 3133694 1/2 Tablet(s) PO Q6 as needed 02/16/2016 04/09/2016 Inactive oxycodone 20 mg tablet RxNorm: 0478889 1/2 Tablet(s) PO Q6 as needed 01/04/2016 02/15/2016 Inactive bisoprolol 5 mg-hydrochlorothiazide 6.25 mg tablet RxNorm: 481726 1 Tablet(s) PO daily 11/19/2015 01/17/2016 Inactive bisoprolol 5 mg-hydrochlorothiazide 6.25 mg tablet RxNorm: 460720 1 Tablet(s) PO daily 11/04/2015 11/18/2015 Inactive oxycodone 20 mg tablet RxNorm: 9856291 1/2 Tablet(s) PO Q6 as needed 10/27/2015 01/03/2016 Inactive levothyroxine 150 mcg tablet RxNorm: 979496 1 Tablet(s) PO daily 08/26/2015 02/21/2016 Inactive [SAVINGS FOR NON-COVERED DRUGS -- BIN:127810, PCN: ASPROD1, Group: XXXXX, ID# XXXXXXX, Questions: . THIS IS NOT INSURANCE.] bisoprolol 5 mg-hydrochlorothiazide 6.25 mg tablet RxNorm: 331310 1 Tablet(s) PO daily 08/26/2015 10/24/2015 Inactive oxycodone 10 mg tablet RxNorm: 5090916 1 Tablet(s) PO Q6 as needed 05/06/2015 10/26/2015 Inactive levothyroxine 150 mcg tablet RxNorm: 734236 1 Tablet(s) PO daily 02/05/2015 08/03/2015 Inactive [SAVINGS FOR NON-COVERED DRUGS -- BIN:187266, PCN: ASPROD1, Group: XXXXX, ID# [id number], Questions: . THIS IS NOT INSURANCE.] Vitamin D2 50,000 unit capsule RxNorm: 478817 1 Capsule(s) PO weekly 02/05/2015 05/05/2015 Inactive [SAVINGS FOR NON-COVERED DRUGS -- BIN:726873, PCN: ASPROD1, Group: XXXXX, ID# XXXXXXX, Questions: . THIS IS NOT INSURANCE.] Vitamin D2 50,000 unit capsule RxNorm: 415644 1 Capsule(s) PO weekly 02/05/2015 02/04/2015 Inactive bisoprolol 5 mg-hydrochlorothiazide 6.25 mg tablet RxNorm: 318269 1 Tablet(s) PO daily 01/26/2015 02/24/2015 Inactive levothyroxine 200 mcg tablet RxNorm: 189284 1 Tablet(s) PO daily 01/26/2015 01/25/2015 Inactive levothyroxine 200 mcg tablet RxNorm: 059429 1 Tablet(s) PO every other day 01/26/2015 02/04/2015 Inactive [SAVINGS FOR NON-COVERED DRUGS -- BIN:222035, PCN: ASPROD1, Group: XXXXX, ID# [id number], Questions: . THIS IS NOT INSURANCE.] aspirin 81 mg chewable tablet RxNorm: 432223 1 Tablet(s) PO daily No Start Date Active Plavix 75 mg tablet RxNorm: 660851 1 Tablet(s) PO daily manage by Dr Baig No Start Date Active simvastatin 40 mg tablet RxNorm: 333254 1 Tablet(s) PO QHS managed by Dr Baig No Start Date Active Colcrys 0.6 mg tablet RxNorm: 312720 2 tabs at onset then may repeat 1 tab in 1 hours if needed- Tablet(s) PO No Start Date 04/08/2017 Inactive then take daily until gout resolved aspirin 325 mg tablet RxNorm: 829144 1 Tablet(s) PO daily No Start Date 05/03/2016 Inactive levothyroxine 75 mcg tablet RxNorm: 625889 1 Tablet(s) PO every other day No Start Date 02/04/2015 Inactive takes qod with 200mcg oxycodone 10 mg tablet RxNorm: 2895907 1 Tablet(s) PO Q6 as needed No Start Date 05/05/2015 Inactive ketoconazole 2 % topical cream RxNorm: 389618 1 Gram(s) TOP BID to affected area [...] prostate ICD- 10: Z12.5 ICD-9: V76.44 02/05/2018 Chronic pain syndrome [...] Code Item Item Code Result Date %Hba1C Ncc867 % HbA1c 43344- 6 6.4 % 08/30/2018 %Hba1C Vej100 Gluc Ave 137 mg/dL 08/30/2018 Culture Urine [id number] URINE CULTURE SEE NOTES 02/22/2018 Urine Culture [...] 24.5 pg 02/20/2018 Cbc With Differential Ord2 [place]% 8.9 % 02/20/2018 Cbc With Differential Ord2 [...] 0.81 K/ul 02/20/2018 Cbc With Differential Ord2 [place] ABS# 0.7 K/ul 02/20/2018 Cbc With Differential Ord2 Eos ABS# 0.4 K/ul 02/20/2018 Cbc With Differential Ord2 Baso ABS# 0.0 K/ul 02/20/2018 %Hba1C Uns593 % HbA1c 79876- 6 7.7 % 02/20/2018 %Hba1C Yox021 Gluc Ave 174 mg/dL 02/20/2018 Lipase Zmu631 LIPASE 17 U/L 02/20/2018 Microalbumin Wgx581 MicroAlb 6.5 mg/dL 02/20/2018 Amylase Ord34 AMYLASE 15 U/L 02/20/2018 Free T4 Hld527 FREE T4 0.61 ng/dL 02/20/2018 Lipid Ord30 CHOL 203 mg/dL 02/20/2018 Lipid Ord30 HDL 7.0 mg/dl 02/20/2018 Lipid Ord30 TRIG 271 mg/dL 02/20/2018 Lipid Ord30 LDL 142 mg/dL 02/20/2018 Lipid Ord30 C/HDL 29.0 Ratio 02/20/2018 Comp Metabolic Whj626 NA 134 mEq/L 02/20/2018 Comp Metabolic Gxu849 K 3.6 mEq/L 02/20/2018 Comp Metabolic Eim335 CL 96 mEq/L 02/20/2018 Comp Metabolic Nui045 CO2 29.0 mEq/L 02/20/2018 Comp Metabolic Kxa855 ANION GAP 13 02/20/2018 Comp Metabolic Yys025 GLUCOSE 165 mg/dL 02/20/2018 Comp Metabolic Zoc472 Creat 1.2 mg/dL 02/20/2018 Comp Metabolic Cyd044 eGFR 63 ml/min/1.73m2 02/20/2018 Comp Metabolic Zpd921 BUN 14 mg/dL 02/20/2018 Comp Metabolic Vge083 B/C Ratio 11.6 Ratio 02/20/2018 Comp Metabolic Wyy416 CALCIUM 8.5 mg/dL 02/20/2018 Comp Metabolic Yrk453 ALK PHOS 633 U/L 02/20/2018 Comp Metabolic Nhh383 AST(SGOT) 112 U/L 02/20/2018 Comp Metabolic Oqo544 ALT(SGPT) 148 U/L 02/20/2018 Comp Metabolic Wib268 BILI T 6.8 mg/dL 02/20/2018 Comp Metabolic Ngw389 ALBUMIN 3.3 g/dL 02/20/2018 Comp Metabolic Bkk959 TPRO 5.9 g/dL 02/20/2018 Comp Metabolic Oib051 GLOB 2.6 g/dL 02/20/2018 Comp Metabolic Ekr103 A/G Ratio 1.3 Ratio 02/20/2018 Comp Metabolic Zox491 Osmo 272 mOsmo 02/20/2018 Total Psa Ord10 [...] Metabolic Ord15 CALCIUM 9.2 mg/dL 11/09/2017 %Hba1C Zsx531 % HbA1c 80200- 6 8.0 % 11/09/2017 %Hba1C Bzx642 Gluc Ave 183 mg/dL 11/09/2017 Metabolic Ord15 [...] Ord15 CALCIUM 8.7 mg/dL 06/25/2017 Culture Wound [id number] WOUND CULTURE SEE NOTES 04/09/2017 Culture Wound [id number] Continued Results 04/09/2017 Amylase Ord34 AMYLASE 19 [...] 27.9 pg 03/22/2017 Cbc With Differential Ord2 [place]% 8.3 % 03/22/2017 Cbc With Differential Ord2 [...] 1.35 K/ul 03/22/2017 Cbc With Differential Ord2 [place] ABS# 1.4 K/ul 03/22/2017 Cbc With Differential Ord2 Eos ABS# 0.2 K/ul 03/22/2017 Cbc With Differential Ord2 Baso ABS# 0.0 K/ul 03/22/2017 Comp Metabolic Img410 NA 134 mEq/L 03/22/2017 Comp Metabolic Vgc580 K 4.5 mEq/L 03/22/2017 Comp Metabolic Vir593 CL 93 mEq/L 03/22/2017 Comp Metabolic Jhp182 CO2 31.0 mEq/L 03/22/2017 Comp Metabolic Tvo633 ANION GAP 15 03/22/2017 Comp Metabolic Soe707 GLUCOSE 198 mg/dL 03/22/2017 Comp Metabolic Iru879 Creat 1.5 mg/dL 03/22/2017 Comp Metabolic Rel719 eGFR 50 ml/min/1.73m2 03/22/2017 Comp Metabolic Tvd630 BUN 32 mg/dL 03/22/2017 Comp Metabolic Cct692 B/C Ratio 21.6 Ratio 03/22/2017 Comp Metabolic Wwa528 CALCIUM 8.4 mg/dL 03/22/2017 Comp Metabolic Nay198 ALK PHOS 245 U/L 03/22/2017 Comp Metabolic Ddm062 AST(SGOT) 18 U/L 03/22/2017 Comp Metabolic Cbn400 ALT(SGPT) 17 U/L 03/22/2017 Comp Metabolic Ref743 BILI T 0.8 mg/dL 03/22/2017 Comp Metabolic Ptj577 ALBUMIN 2.9 g/dL 03/22/2017 Comp Metabolic Toc828 TPRO 6.3 g/dL 03/22/2017 Comp Metabolic Abm596 GLOB 3.4 g/dL 03/22/2017 Comp Metabolic Eas627 A/G Ratio 0.8 Ratio 03/22/2017 Comp Metabolic Cln657 Osmo 281 mOsmo 03/22/2017 Lipase Ztq388 LIPASE 12 U/L 03/22/2017 Comp Metabolic Aqj161 NA 142 mEq/L 03/09/2017 Comp Metabolic Puz585 K 4.8 mEq/L 03/09/2017 Comp Metabolic Ixu817 CL 103 mEq/L 03/09/2017 Comp Metabolic Ing115 CO2 30.0 mEq/L 03/09/2017 Comp Metabolic Udu258 ANION GAP 14 03/09/2017 Comp Metabolic Zlz998 GLUCOSE 152 mg/dL 03/09/2017 Comp Metabolic Fpt080 Creat 1.3 mg/dL 03/09/2017 Comp Metabolic Hmc832 eGFR 56 ml/min/1.73m2 03/09/2017 Comp Metabolic Muu470 BUN 23 mg/dL 03/09/2017 Comp Metabolic Oxt626 B/C Ratio 17.3 Ratio 03/09/2017 Comp Metabolic Sym832 CALCIUM 8.5 mg/dL 03/09/2017 Comp Metabolic Xhy331 ALK PHOS 97 U/L 03/09/2017 Comp Metabolic Asq698 AST(SGOT) 10 U/L 03/09/2017 Comp Metabolic Pyy807 ALT(SGPT) 6 U/L 03/09/2017 Comp Metabolic Bit996 BILI T 0.4 mg/dL 03/09/2017 Comp Metabolic Znx018 ALBUMIN 3.4 g/dL 03/09/2017 Comp Metabolic Ghk879 TPRO 6.2 g/dL 03/09/2017 Comp Metabolic Gkk747 GLOB 2.8 g/dL 03/09/2017 Comp Metabolic Rhh889 A/G Ratio 1.2 Ratio 03/09/2017 Comp Metabolic Bap290 Osmo 290 mOsmo 03/09/2017 Free T4 Bem165 FREE T4 0.86 ng/dL 03/08/2017 Cbc With [...] 28.2 pg 03/08/2017 Cbc With Differential Ord2 [place]% 8.7 % 03/08/2017 Cbc With Differential Ord2 [...] 1.63 K/ul 03/08/2017 Cbc With Differential Ord2 [place] ABS# 0.9 K/ul 03/08/2017 Cbc With Differential Ord2 Eos ABS# 0.5 K/ul 03/08/2017 Cbc With Differential Ord2 Baso ABS# 0.0 K/ul 03/08/2017 Tsh Ord6 hTSH II 4.52 uIU/mL 03/08/2017 %Hba1C Iwo286 % HbA1c 80522- 6 8.5 % 03/08/2017 %Hba1C Bjq898 Gluc Ave 197 mg/dL 03/08/2017 %Hba1C Xpy648 % HbA1c 23006- 6 9.8 % 12/04/2016 %Hba1C Zob066 Gluc Ave 235 mg/dL 12/04/2016 Tsh Ord6 hTSH II 10.65 uIU/mL 11/30/2016 Comp Metabolic Qgo745 NA 134 mEq/L 11/30/2016 Comp Metabolic Wsb101 K 5.0 mEq/L 11/30/2016 Comp Metabolic Dsg132 CL 95 mEq/L 11/30/2016 Comp Metabolic Sbh330 CO2 34.0 mEq/L 11/30/2016 Comp Metabolic Qis119 ANION GAP 10 11/30/2016 Comp Metabolic Xoj974 GLUCOSE 226 mg/dL 11/30/2016 Comp Metabolic Mqc484 Creat 1.3 mg/dL 11/30/2016 Comp Metabolic Hpm035 eGFR 56 ml/min/1.73m2 11/30/2016 Comp Metabolic Qob885 BUN 21 mg/dL 11/30/2016 Comp Metabolic Btc872 B/C Ratio 15.7 Ratio 11/30/2016 Comp Metabolic Eep499 CALCIUM 8.9 mg/dL 11/30/2016 Comp Metabolic Ucp237 ALK PHOS 112 U/L 11/30/2016 Comp Metabolic Uwt565 AST(SGOT) 9 U/L 11/30/2016 Comp Metabolic Jwo759 ALT(SGPT) 7 U/L 11/30/2016 Comp Metabolic Gut576 BILI T 0.6 mg/dL 11/30/2016 Comp Metabolic Vdo872 ALBUMIN 3.6 g/dL 11/30/2016 Comp Metabolic Yvh558 TPRO 6.4 g/dL 11/30/2016 Comp Metabolic Kod097 GLOB 2.9 g/dL 11/30/2016 Comp Metabolic Dnq643 A/G Ratio 1.2 Ratio 11/30/2016 Comp Metabolic Mpm505 Osmo 278 mOsmo 11/30/2016 Lipid Ord30 CHOL [...] 30.6 pg 11/30/2016 Cbc With Differential Ord2 [place]% 7.9 % 11/30/2016 Cbc With Differential Ord2 [...] 1.34 K/ul 11/30/2016 Cbc With Differential Ord2 [place] ABS# 0.8 K/ul 11/30/2016 Cbc With Differential Ord2 E[place] ABS# 0.3 K/ul 11/30/2016 Cbc With Differential Ord2 Baso ABS# 0.0 K/ul 11/30/2016 Free T4 Slm741 FREE T4 0.89 ng/dL 11/30/2016 Review of Systems System Result Effective Dates Constitutional No recent illness 10/18/2018 Constitutional No [...] rate 10/18/2018 None Full Exam - General 1995 Musculoskeletal [...] Codes Date ADMIN PNEUMOCOCCAL VACCINE SNOMED CT: 43748446 CPT-4: G0009 02/05/2018 Pneumococcal Polysaccharide Vaccine, 23-Valent, Ad CPT-4: 78913 02/05/2018 PPPS, SUBSEQ VISIT CPT- 4: G0439 11/30/2017 URINALYSIS NONAUTO W/O SCOPE CPT-4: 26428 03/22/2017 URINALYSIS NONAUTO W/O SCOPE CPT-4: 87094 03/21/2017 PPPS, SUBSEQ VISIT CPT- 4: G0439 11/30/2016 PNEUMOCOCCAL VACC 13 JAVIER IM Formatting Model/CDA Sections, Assigned to SNOMED CT: 53672046 CPT-4: 67552Kgycuyl 11/30/2016 ADMIN PNEUMOCOCCAL VACCINE SNOMED CT: 33153103 CPT-4: G0009 11/30/2016 Vital Signs Date Vital 10/18/2018 Blood Pressure 1: 118/70 Code: 8480-6 BMI: 39.0 Code: 13860-7 Heart Rate 1: 86 bpm Height: 5'10" SpO2: 95% Weight: 272 lbs 10/14/2018 Blood Pressure 1: 120/56 Code: 8480-6 Heart Rate 1: 67 bpm Height: 5'10" SpO2: 92% 10/10/2018 Blood Pressure 1: 126/70 Code: 8480-6 BMI: 34.7 Code: 47227-4 Heart Rate 1: 80 bpm Height: 5'10" SpO2: 96% Temperature: 37.1 (C) / 98.7 (F) Weight: 242 lbs 10/04/2018 Blood Pressure 1: 120/70 Code: 8480-6 Height: 5'10" SpO2: 96% 08/29/2018 Blood Pressure 1: 104/60 Code: 8480-6 BMI: 34.6 Code: 53096-7 Heart Rate 1: 68 bpm Height: 5'10" SpO2: 98% Weight: 241 lbs 02/25/2018 Blood Pressure 1: 120/70 Code: 8480-6 BMI: 37.0 Code: 14359-2 Heart Rate 1: 51 bpm Height: 5'10" SpO2: 97% Weight: 258 lbs 02/20/2018 Blood Pressure 1: 124/70 Code: 8480-6 BMI: 38.0 Code: 06297-9 Heart Rate 1: 60 bpm Height: 5'10" SpO2: 96% Weight: 265 lbs 02/05/2018 Blood Pressure 1: 116/66 Code: 8480-6 BMI: 38.0 Code: 10914-1 Heart Rate 1: 63 bpm Height: 5'10" SpO2: 98% Weight: 265 lbs 11/30/2017 Blood Pressure 1: 132/60 Code: 8480-6 BMI: 37.0 Code: 54193-5 Heart Rate 1: 100 bpm Height: 5'10" SpO2: 96% Waist Measure (cm): 122 cm Weight: 258 lbs 11/08/2017 Blood Pressure 1: 126/64 Code: 8480-6 BMI: 37.2 Code: 20650-1 Heart Rate 1: 92 bpm Height: 5'10" SpO2: 94% Weight: 259 lbs 09/20/2017 Blood Pressure 1: 122 Code: 8480-6 BMI: 36.9 Code: 41276-0 Heart Rate 1: 57 bpm Height: 5'10" SpO2: 96% Weight: 257 lbs 06/25/2017 Blood Pressure 1: 124 Code: 8480-6 BMI: 37.0 Code: 33101-9 Height: 5'10" Weight: 258 lbs 06/07/2017 Blood Pressure 1: 122 Code: 8480-6 BMI: 37.0 Code: 94700-6 Heart Rate 1: 60 bpm Height: 5'10" SpO2: 94% Temperature: 36.4 (C) / 97.6 (F) Weight: 258 lbs 05/03/2017 Blood Pressure 1: 118 Code: 8480-6 BMI: 38.2 Code: 23286-4 Heart Rate 1: 52 bpm Height: 5'10" SpO2: 98% Weight: 266 lbs 04/02/2017 Blood Pressure 1: 118 Code: 8480-6 BMI: 38.2 Code: 61472-3 Heart Rate 1: 53 bpm Height: 5'10" SpO2: 93% Weight: 266 lbs 03/26/2017 Blood Pressure 1: 114 Code: 8480-6 BMI: 38.3 Code: 96051-1 Height: 5'10" Weight: 267 lbs 03/22/2017 Blood Pressure 1: 122 Code: 8480-6 BMI: 40.0 Code: 61157-2 Heart Rate 1: 52 bpm Height: 5'10" SpO2: 94% Weight: 279 lbs 03/08/2017 Blood Pressure 1: 124/ Code: 8480-6 BMI: 39.4 Code: 92308-7 Heart Rate 1: 51 bpm Height: 5'10" SpO2: 94% Weight: 274 lbs 8 oz 12/06/2016 Blood Pressure 1: 126/ Code: 8480-6 BMI: 40.3 Code: 16789-3 Heart Rate 1: 50 bpm Height: 5'10" SpO2: 94% Weight: 281 lbs 11/30/2016 Blood Pressure 1: 112/62 Code: 8480-6 BMI: 40.3 Code: 54222-5 Heart Rate 1: 52 bpm Height: 5'10" SpO2: 93% Waist Measure (cm): 135 cm Weight: 281 lbs 11/28/2016 Blood Pressure 1: 132/72 Code: 8480-6 BMI: 40.3 Code: 27275-3 Heart Rate 1: 50 bpm Height: 5'10" Weight: 281 lbs 05/04/2016 Blood Pressure 1: 128/78 Code: 8480-6 BMI: 38.5 Code: 34351-1 Heart Rate 1: 74 bpm Height: 5'10" SpO2: 98% Weight: 268 lbs 8 oz 11/04/2015 Blood Pressure 1: 136/60 Code: 8480-6 BMI: 38.0 Code: 97713-2 Heart Rate 1: 55 bpm Height: 5'10" SpO2: 94% Weight: 265 lbs 07/30/2015 Blood Pressure 1: 128/74 Code: 8480-6 BMI: 38.0 Code: 56878-8 Heart Rate 1: 47 bpm Height: 5'10" SpO2: 97% Weight: 265 lbs 01/26/2015 Blood Pressure 1: 122/64 Code: 8480-6 BMI: 34.0 Code: 63309-1 Heart Rate 1: 68 bpm Height: 5'10" [...] data Encounters Encounter Performer Location Codes Date [id number] EST. PATIENT, LEVEL III Diagnosis: Localized edema[ICD10: R60.0] Diagnosis: Cellulitis of left lower limb[ICD10: L03.116] Diagnosis: Cellulitis of right lower limb[ICD10: L03.115] Kiki Sanchez MD, [facility] CPT-4: 34658 10/18/2018 97024 EST. PATIENT, LEVEL III Diagnosis: Localized edema[ICD10: R60.0] Diagnosis: Cellulitis of left lower limb[ICD10: L03.116] Diagnosis: Cellulitis of right lower limb[ICD10: L03.115] Diagnosis: Chronic obstructive pulmonary disease, unspecified[ICD10: J44.9] Diagnosis: Weakness[ICD10: R53.1] [facility] CPT-4: 06571 10/14/2018 [id number] EST. PATIENT, LEVEL III Diagnosis: Localized edema[ICD10: R60.0] Diagnosis: Cellulitis of left lower limb[ICD10: L03.116] Diagnosis: Cellulitis of right lower limb[ICD10: L03.115] [facility] CPT-4: 77167 10/10/2018 ([id number]) 96817 EST. PATIENT, LEVEL IV Diagnosis: Type 2 diabetes mellitus with foot ulcer[ICD10: E11.621] Diagnosis: Essential (primary) hypertension[ICD10: I10] Diagnosis: Malignant neoplasm of prostate[ICD10: C61] Diagnosis: Chronic obstructive pulmonary disease, unspecified[ICD10: J44.9] Diagnosis: Hypoxemia[ICD10: R09.02] Sarah Sanchez MD, [facility] CPT-4: 97255 10/04/2018 ([id number]) 64765 EST. PATIENT, LEVEL IV Diagnosis: Type 2 diabetes mellitus with hyperglycemia[ICD10: E11.65] Diagnosis: Essential (primary) hypertension[ICD10: I10] Diagnosis: Malignant neoplasm of prostate[ICD10: C61] Sarah Sanchez MD, [facility] CPT-4: 16568 08/29/2018 ([id number]) 67226 EST. PATIENT, LEVEL IV Diagnosis: Malignant neoplasm of prostate[ICD10: C61] Dorene Sanchez MD, [facility] CPT-4: 14933 02/25/2018 18580 EST. PATIENT, LEVEL IV Diagnosis: Generalized abdominal pain[ICD10: R10.84] Diagnosis: Unspecified jaundice[ICD10: R17] Diagnosis: Gross hematuria[ICD10: R31.0] Kiki Sanchez MD, [facility] CPT-4: 32996 02/20/2018 ([id number]) 41300 EST. PATIENT, LEVEL IV Diagnosis: Type 2 diabetes mellitus with hyperglycemia[ICD10: E11.65] Diagnosis: Essential (primary) hypertension[ICD10: I10] Diagnosis: Chronic kidney disease, stage 3 (moderate)[ICD10: N18.3] Diagnosis: Chronic pain syndrome[ICD10: G89.4] Diagnosis: Other specified hypothyroidism[ICD10: E03.8] Diagnosis: Encounter for screening for malignant neoplasm of prostate[ICD10: Z12.5] Diagnosis: Encounter for immunization[ICD10: Z23] Sarah Sanchez MD, [facility] CPT-4: 62010 02/05/2018 ([id number]) 19417 EST. PATIENT, LEVEL IV Diagnosis: Type 2 diabetes mellitus with hyperglycemia[ICD10: E11.65] Diagnosis: Essential (primary) hypertension[ICD10: I10] Dorene Sanchez MD, [facility] CPT-4: 47859 11/08/2017 ([id number]) 96301 EST. PATIENT, LEVEL IV Diagnosis: Type 2 diabetes mellitus with hyperglycemia[ICD10: E11.65] Diagnosis: Chronic pain syndrome[ICD10: G89.4] Diagnosis: Essential (primary) hypertension[ICD10: I10] Diagnosis: Chronic kidney disease, stage 3 (moderate)[ICD10: N18.3] Diagnosis: Localized edema[ICD10: R60.0] Dorene Sanchez MD, [facility] CPT-4: 17007 09/20/2017 ([id number]) 30185 EST. PATIENT, LEVEL III Diagnosis: Type 2 diabetes mellitus with hyperglycemia[ICD10: E11.65] Sarah Sanchez MD, [facility] CPT-4: 32929 06/25/2017 ([id number]) 49351 EST. PATIENT, LEVEL III Diagnosis: Cellulitis of left lower limb[ICD10: L03.116] Sarah Sanchez MD, [facility] CPT-4: 11485 06/07/2017 ([id number]) 09442 EST. PATIENT, LEVEL III Diagnosis: Localized edema[ICD10: R60.0] Diagnosis: Type 2 diabetes mellitus with foot ulcer[ICD10: E11.621] Sarah Sanchez MD, [facility] CPT-4: 75194 05/03/2017 ([id number]) 95667 EST. PATIENT, LEVEL III Diagnosis: Cellulitis of left lower limb[ICD10: L03.116] Diagnosis: Localized edema[ICD10: R60.0] Sarah Sanchez MD, [facility] CPT-4: 72619 04/02/2017 ([id number]) Miscellaneous no charge Diagnosis: Localized edema[ICD10: R60.0] Diagnosis: Cellulitis of left lower limb[ICD10: L03.116] Sarah Sanchez MD, [facility] CPT-4: 98073 03/26/2017 ([id number]) 26311 EST. 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 PATIENT, LEVEL IV Diagnosis: Type 2 diabetes mellitus with hyperglycemia[ICD10: E11.65] Diagnosis: Other specified hypothyroidism[ICD10: E03.8] Diagnosis: Essential (primary) hypertension[ICD10: I10] Sarah Sanchez MD [facility] CPT-4: 38904 03/08/2017 ([id number]) 96514 EST. PATIENT, LEVEL III Diagnosis: Type 2 diabetes mellitus with hyperglycemia[ICD10: E11.65] Diagnosis: Other specified hypothyroidism[ICD10: E03.8] Sarah Sanchez MD [facility] CPT-4: 49641 12/06/2016 ([id number]) 49099 EST. PATIENT, LEVEL IV Diagnosis: Essential (primary) hypertension[ICD10: I10] Diagnosis: Chronic kidney disease, stage 3 (moderate)[ICD10: N18.3] Dorene Sanchez MD, [facility] CPT-4: 36070 11/28/2016 ([id number]) 49621 EST. PATIENT, LEVEL IV Diagnosis: Essential (primary) hypertension[ICD10: I10] Diagnosis: Chronic pain syndrome[ICD10: G89.4] Diagnosis: Chronic kidney disease, stage 3 (moderate)[ICD10: N18.3] Diagnosis: Vitamin B12 deficiency anemia due to intrinsic factor deficiency[ICD10: D51.0] Diagnosis: Other specified hypothyroidism[ICD10: E03.8] Dorene Sanchez MD, [facility] CPT-4: 91370 05/04/2016 82852 EST. PATIENT, LEVEL III Diagnosis: Chronic pain syndrome[ICD10: G89.4] Diagnosis: Essential (primary) hypertension[ICD10: I10] Diagnosis: Other specified hypothyroidism[ICD10: E03.8] Kiki Sanchez MD, [facility] CPT-4: 55533 11/04/2015 41198 EST. PATIENT, LEVEL III Diagnosis: Chronic pain syndrome[ICD10: G89.4] Diagnosis: Essential (primary) hypertension[ICD10: I10] Kiki Sanchez MD, [facility] CPT-4: 05818 07/30/2015 ([id number]) OFFICE/OUTPATIENT VISIT NEW Diagnosis: ESSENTIAL HYPERTENSION[ICD9: 401.9] Diagnosis: HYPOTHYROIDISM[ICD9: 244.9] Diagnosis: ANEMIA[ICD9: 285.9] Diagnosis: Vitamin B12 deficiency[ICD9: 266.2] Diagnosis: CHRONIC PAIN SYNDROME[ICD9: 338.4] Diagnosis: Chronic renal insufficiency, stage III (moderate)[ICD9: 585.3] Diagnosis: GOUT[ICD9: 274.9] Dorene Sanchez MD, [facility] CPT-4: 75357 01/26/2015 Plan of Care Planned Activity Notes [...] warmth, discharge. 10/18/2018 Appointment: Kiki Menjivar WPtel: [address] [place], [place] [phone] (30 min) [facility] 10/18/2018 Patient Education: Patient Medication [...] 10/14/2018 Appointment: [facility] [phone] [facility] (30 min) Complex 10/14/2018 Patient [...] discharge. 10/10/2018 Appointment: [facility]jivar [facility]el[facility] [phone] [facility] (30 min) Complex 10/10/2018 Patient Education: Patient Medication Summary Completed 10/10/2018 Visit Plan: DM with peripheral neuropathy-paperwork completed for diabetic shoes and will fax to Dr Bauer HTN-controlled -no changes Opszskgjm-LIGP-QJH-prostate cancer with mets- patient qualifies for oxygen-oxy gen saturation dropped to 86% on room air during ambulation but increased to 99% on 2L NC at rest-will send orders to [facility] for continue oxygen at 2L per nasal cannula 10/04/2018 Appointment: Sarah Hernandes WPtel: [address] [place], [place] [phone] [place] [address] (30 min) Complex 10/04/2018 Patient Education: Patient [...] Dr Moreno 08/29/2018 Appointment: Sarah Hernandes WPtel: [id number] [place] [address] (15 min) Moderate 08/29/2018 Patient Education: Patient Medication Summary Completed 08/29/2018 Referral: Edgard Rivera MD WPtel: Via [address] Moreno. Patient informed. Referral info faxed. Completed 02/27/2018 Visit Plan: Recurrent prostate cancer - I have recommended a referral to Dr. Rivera. We discussed the case at length today- he is not interested in extensive treatment, but if possible to extend his quantity and quality of life, he would like to try. 02/25/2018 Appointment: Dorene Sanchez WPtel: [address] [place] [address] (15 min) Moderate 02/25/2018 Patient Education: Patient Medication Summary Completed 02/25/2018 Care Plan: Referral Order SNOMED-CT : [id number] Pending 02/25/2018 Visit Plan: Intermittent abdominal pain, jaundice, itching - will check labs and treat as indicated - pt is to go to the ER with any acute change in symptoms or any acute concerns. 02/20/2018 Appointment: [facility]ar [facility]Ptel[facility] [phone] [facility] (30 min) Complex 02/20/2018 Patient Education: [...] control. 02/05/2018 Appointment: Sarah Hernandes [facility]Ptel[facility] [phone] [phone] (30 min) Complex 02/05/2018 Patient Education: [...] 11/30/2017 Appointment: Sarah Hernandes WPtel[facility] [phone] [facility] [place] [address] - Annual Wellness Visit 11/30/2017 Patient Education: [...] 1.2 11/08/2017 Appointment: [facility] [phone] [facility] (15 min) Moderate 11/08/2017 Patient Education: [...] of over-medication. 09/20/2017 Appointment: Dorene Sanchez [facility]el[facility] [phone] [facility] (15 min) Moderate 09/20/2017 Patient Education: [...] control. 06/25/2017 Appointment: Sarah Hernandes WPtel: [phone] [phone] (30 min) Complex 06/25/2017 Patient Education: Patient Medication Summary Completed 06/25/2017 Appointment: Sarah Hernandes WPtel[facility] [phone] [phone] [place] (30 min) Complex 06/22/2017 Visit Plan: Cellulitis - start oral antibiotics as previously directed, return to clinic as previously directed, call for acute change in symptoms, worsening redness, warmth, discharge. 06/07/2017 Appointment: Sarah Hernandes WPtel: [phone] [phone] [place] (30 min) Complex 06/07/2017 Patient Education: Patient Medication Summary Completed 06/07/2017 Patient Education: Obesity Completed 06/07/2017 Appointment: Dorene Sanchez WPtel: [address] [place], [place] [phone] (15 min) Moderate 05/31/2017 Visit Plan: Edema-significantly improved-no changes Ulcer-left lower leg and foot-seeing Dr Norwood at wound care-appt scheduled with Dr Frausto for vascular evaluation 05/03/2017 Appointment: Sarah Hernandes WPtel: [address] [place], [place] [phone] (15 min) Moderate 05/03/2017 Patient Education: Patient Medication Summary Completed 05/03/2017 Patient Education: Obesity Completed 05/03/2017 Visit Plan: Petgbfuqdm-wsjobnnpp-mekwuxb to finish abx-no further treatment indicated Edema-significantly improved-no longer weeping-continue unna boots twice weekly with home health 04/02/2017 Appointment: Sarah Hernandes WPtel: [phone] (30 min) Complex 04/02/2017 Patient Education: Patient Medication Summary Completed 04/02/2017 Patient Education: Obesity Completed 04/02/2017 Visit Plan: Cellulitis-left leg-continue levaquin Edema-increase lasix/potassium-consult [facility] for unna boots/dressing changes 03/26/2017 Appointment: Sarah Hernandes WPtel: [phone] (15 min) Moderate 03/26/2017 Patient Education: [...] indomethacin-stop aleve 03/22/2017 Appointment: Sarah Hernandes WPtel: [address] [place] [phone] [place] (15 min) Moderate 03/22/2017 Patient Education: [...] of control. 03/08/2017 Appointment: Sarah Hernandes WPtel: [address] [place] [phone] [place] (30 min) Complex 03/08/2017 Patient Education: [...] surrogate. 11/30/2016 Appointment: Sarah Hernandes WPtel[facility] [phone] [phone] [facility] - Annual Wellness Visit 11/30/2016 Patient [...] in fluids. 11/28/2016 Appointment: Dorene Sanchez WPtel[facility] [phone] [facility] (15 min) Moderate 11/28/2016 Patient Education: [...] 01/26/2015 Referral: Edgard Rivera MD WPtel: [address] [place] Referral Appointment Requested Instructions Comment [...] return to clinic on Sunday to monitor victoza 0.6mg daily . Diabetes Mellitus - [...] to allow for greater blood glucose control. Repeat labs at next appointment . Edema-significantly improved-no changes Ulcer-left lower leg and foot-seeing Dr oNrwood at wound care-appt scheduled with Dr Frausto [...] b12 shots. [facility] . Cellulitis - start oral antibiotics as [...] YEAR SHINGLES VACCINATION TO BE ADMINISTERED AT [facility] REC[facility] OBTAINING MEDICAL POWER OF ENTERPRISE INTEGRATION ARCHITECT AND LIVING WILL PATIENT DOES NOT HAVE [...] YEAR SHINGLES VACCINATION TO BE ADMINISTERED AT [facility] OBTAINING MEDICAL POWER OF ENTERPRISE INTEGRATION ARCHITECT AND LIVING WILL PATIENT DOES NOT HAVE [...] YEAR SHINGLES VACCINATION TO BE ADMINISTERED AT [facility] REC[facility] OBTAINING MEDICAL POWER OF ENTERPRISE INTEGRATION ARCHITECT AND LIVING WILL PATIENT DOES NOT HAVE [...] AND POTASSIUM TO TWICE DAILY [facility] -WOUND CARE . Cellulitis-left leg-continue levaquin Edema-increase lasix/potassium-consult [facility] for unna boots/dressing changes . Recurrent [...] with supportive care and medication monitoring. . Iwbmmphdii-rxhymkzxw-gdhnyff to finish abx-no further treatment indicated Edema-significantly [...] to assist with repositioning due to weakness increase the victoza to 1.2 . Hypertension [...] fax to Dr Bauer HTN-controlled -no changes Jxxlcbdzg-IXBG-FUP-prostate cancer with mets- patient qualifies for oxygen- [...]
--- OUTSIDE RECORDS SUMMARY | 2019-03-24 08:14 | XMS REPORT | CCD ---
Author Author [facility]ne Sanchez Organization [facility] Address [address] [place] [address] Phone Care Team Providers Care Chick Sexer Name Role Phone PP Unavailable CCM Unavailable Summary Purpose Interface Exchange Insurance Providers Payer name Policy type / Coverage type Covered republican ID Effective Begin Date Effective End Date WPS Medicare Part B Medicare Part B [id number] Unknown Unknown Family history Father Diagnosis Age At Onset Stroke Unknown Mother Diagnosis Age At Onset Stroke Unknown Diabetes mellitus Type 2 Unknown Social History Social History Element Codes Description Effective Dates Tobacco history SNOMED CT: 697874820 Currently uses smokeless tobacco Chews 05/04/2016 Marital status Unknown 01/26/2015 Number of children Unknown 3 01/26/2015 Employment Unknown Retired 01/26/[address]: 235492325 Never drinks alcohol quit in July 2014 01/26/2015 Allergies, Adverse Reactions, Alerts Allergies, Adverse Reactions, Alerts data not found Past Medical History Illness Codes Condition Status Onset Date Resolved Date Cellulitis of left lower limb ICD-9: 682.6 ICD-10: L03.116 Active 03/22/2017 Unknown Localized edema ICD-9: 782.3 ICD-10: R60.0 Active 03/22/2017 Unknown Chronic gout due to renal impairment, left ankle and foot, without tophus (tophi) ICD-9: 274.19 ICD-10: M1A.3720 Active 03/22/2017 Unknown Chronic pain syndrome ICD- 9: 338.4 ICD-10: G89.4 Active 01/25/2015 Unknown Dysuria ICD-9: 788.1 ICD-10: R30.0 Active 03/21/2017 Unknown Type 2 diabetes mellitus with hyperglycemia ICD-9: 250.00 ICD-10: E11.65 Active 12/06/2016 Unknown Diabetes Unknown Active 03/08/2017 Unknown Essential (primary) hypertension ICD-9: 401.9 ICD-10: I10 Active 01/25/2015 Unknown Other specified hypothyroidism ICD-9: 244.9 ICD-10: E03.8 Active 01/25/2015 Unknown Encounter for general adult medical examination with abnormal findings ICD-9: V70.0 ICD-10: Z00.01 Active 11/30/2016 Unknown Encounter for immunization ICD-9: V03.9 ICD-10: Z23 Active 11/30/2016 Unknown Chronic kidney disease, stage 3 (moderate) ICD-9: 585.3 ICD-10: N18.3 Active 01/25/2015 Unknown Vitamin B12 deficiency anemia due to [...] limb ICD-9: 682.6 ICD-10: L03.116 03/22/2017 Active Localized edema ICD-9: 782.3 ICD-10: R60.0 03/22/2017 Active Chronic gout due to renal impairment, left ankle and foot, without tophus (tophi) ICD-9: 274.19 ICD-10: M1A.3720 03/22/2017 Active Chronic pain syndrome ICD- 9: 338.4 ICD-10: G89.4 01/25/2015 Active Dysuria ICD-9: 788.1 ICD-10: R30.0 03/21/2017 Active Type 2 diabetes mellitus with hyperglycemia ICD-9: 250.00 ICD-10: E11.65 12/06/2016 Active Diabetes Unknown 03/08/2017 Active Essential (primary) hypertension ICD-9: 401.9 ICD-10: I10 01/25/2015 Active Other specified hypothyroidism ICD-9: 244.9 ICD-10: E03.8 01/25/2015 Active Encounter for general adult medical examination with abnormal findings ICD-9: V70.0 ICD-10: Z00.01 11/30/2016 Active Encounter for immunization ICD-9: V03.9 ICD-10: Z23 11/30/2016 Active Chronic kidney disease, stage 3 (moderate) ICD-9: 585.3 ICD-10: N18.3 01/25/2015 Active Vitamin B12 deficiency anemia due to [...] Start Date Stop Date Status Fill Instructions Levaquin 500 mg tablet RxNorm: 626097 1 Tablet(s) PO daily 04/03/2017 04/12/2017 Active Levaquin 500 mg tablet RxNorm: 515880 1 Tablet(s) PO daily 04/03/2017 04/02/2017 Inactive Lasix 20 mg tablet RxNorm: 265704 1 Tablet(s) PO QDAY PRN 03/22/2017 No Stop Date Active daily x 5 days then as needed potassium chloride ER 10 mEq capsule,extended release RxNorm: 756007 1 Capsule(s) PO QDAY PRN 03/22/2017 No Stop Date Active daily x 5 days then as needed with lasix indomethacin 25 mg capsule RxNorm: 573221 1 Capsule(s) PO TID PRN 03/22/2017 03/22/2017 Inactive Levaquin 500 mg tablet RxNorm: 334159 1 Tablet(s) PO daily 03/22/2017 03/31/2017 Inactive oxycodone 20 mg tablet RxNorm: 8272041 1/2 Tablet(s) PO Q6 as needed 03/08/2017 04/06/2017 Active bisoprolol 5 mg-hydrochlorothiazide 6.25 mg tablet RxNorm: 828211 TAKE ONE TABLET BY MOUTH DAILY 02/14/2017 05/14/2017 Active oxycodone 20 mg tablet RxNorm: 7726185 1/2 Tablet(s) PO Q6 as needed 02/08/2017 03/07/2017 Inactive oxycodone 20 mg tablet RxNorm: 0427995 1/2 Tablet(s) PO Q6 as needed 01/08/2017 02/06/2017 Inactive levothyroxine 175 mcg tablet RxNorm: 547476 1 Tablet(s) PO daily 12/06/2016 06/03/2017 Active [SAVINGS FOR NON-COVERED DRUGS -- BIN:[id number], PCN: ASPROD1, Group: XXXXX, ID# XXXXXXX, Questions: . THIS IS NOT INSURANCE.] oxycodone 20 mg tablet RxNorm: 3198162 1/2 Tablet(s) PO Q6 as needed 12/04/2016 01/02/2017 Inactive oxycodone 20 mg tablet RxNorm: 9209967 1/2 Tablet(s) PO Q6 as needed 11/09/2016 12/03/2016 Inactive bisoprolol 5 mg-hydrochlorothiazide 6.25 mg tablet RxNorm: 907961 TAKE ONE TABLET BY MOUTH DAILY 11/08/2016 02/05/2017 Inactive oxycodone 20 mg tablet RxNorm: 0201535 1/2 Tablet(s) PO Q6 as needed 10/05/2016 11/03/2016 Inactive oxycodone 20 mg tablet RxNorm: 8227373 1/2 Tablet(s) PO Q6 as needed 09/06/2016 10/04/2016 Inactive oxycodone 20 mg tablet RxNorm: 9381113 1/2 Tablet(s) PO Q6 as needed 08/07/2016 09/05/2016 Inactive oxycodone 20 mg tablet RxNorm: 7626364 1/2 Tablet(s) PO Q6 as needed 07/04/2016 08/06/2016 Inactive oxycodone 20 mg tablet RxNorm: 5777517 1/2 Tablet(s) PO Q6 as needed 05/29/2016 07/03/2016 Inactive levothyroxine 150 mcg tablet RxNorm: 842520 1 Tablet(s) PO daily 04/10/2016 04/09/2016 Inactive [SAVINGS FOR NON-COVERED DRUGS -- BIN:[id number], PCN: ASPROD1, Group: XXXXX, ID# XXXXXXX, Questions: . THIS IS NOT INSURANCE.] oxycodone 20 mg tablet RxNorm: 8756363 1/2 Tablet(s) PO Q6 as needed 04/10/2016 05/28/2016 Inactive levothyroxine 150 mcg tablet RxNorm: 263394 1 Tablet(s) PO daily 04/10/2016 10/06/2016 Inactive [SAVINGS FOR NON-COVERED DRUGS -- BIN:381893, PCN: ASPROD1, Group: XXXXX, ID# XXXXXXX, Questions: . THIS IS NOT INSURANCE.] bisoprolol 5 mg-hydrochlorothiazide 6.25 mg tablet RxNorm: 905840 1 Tablet(s) PO daily 02/16/2016 05/15/2016 Inactive oxycodone 20 mg tablet RxNorm: 3433306 1/2 Tablet(s) PO Q6 as needed 02/16/2016 04/09/2016 Inactive oxycodone 20 mg tablet RxNorm: 0054096 1/2 Tablet(s) PO Q6 as needed 01/04/2016 02/15/2016 Inactive bisoprolol 5 mg-hydrochlorothiazide 6.25 mg tablet RxNorm: 206952 1 Tablet(s) PO daily 11/19/2015 01/17/2016 Inactive bisoprolol 5 mg-hydrochlorothiazide 6.25 mg tablet RxNorm: 711304 1 Tablet(s) PO daily 11/04/2015 11/18/2015 Inactive oxycodone 20 mg tablet RxNorm: 8195041 1/2 Tablet(s) PO Q6 as needed 10/27/2015 01/03/2016 Inactive levothyroxine 150 mcg tablet RxNorm: 774804 1 Tablet(s) PO daily 08/26/2015 02/21/2016 Inactive [SAVINGS FOR NON-COVERED DRUGS -- BIN:089695, PCN: ASPROD1, Group: XXXXX, ID# XXXXXXX, Questions: . THIS IS NOT INSURANCE.] bisoprolol 5 mg-hydrochlorothiazide 6.25 mg tablet RxNorm: 507647 1 Tablet(s) PO daily 08/26/2015 10/24/2015 Inactive oxycodone 10 mg tablet RxNorm: 7718415 1 Tablet(s) PO Q6 as needed 05/06/2015 10/26/2015 Inactive levothyroxine 150 mcg tablet RxNorm: 433268 1 Tablet(s) PO daily 02/05/2015 08/03/2015 Inactive [SAVINGS FOR NON-COVERED DRUGS -- BIN:[id number], PCN: ASPROD1, Group: XXXXX, ID# XXXXXXX, Questions: . THIS IS NOT INSURANCE.] Vitamin D2 50,000 unit capsule RxNorm: 586036 1 Capsule(s) PO weekly 02/05/2015 05/05/2015 Inactive [SAVINGS FOR NON-COVERED DRUGS -- BIN:393236, PCN: ASPROD1, Group: XXXXX, ID# XXXXXXX, Questions: . THIS IS NOT INSURANCE.] Vitamin D2 50,000 unit capsule RxNorm: 207480 1 Capsule(s) PO weekly 02/05/2015 02/04/2015 Inactive bisoprolol 5 mg-hydrochlorothiazide 6.25 mg tablet RxNorm: 132694 1 Tablet(s) PO daily 01/26/2015 02/24/2015 Inactive levothyroxine 200 mcg tablet RxNorm: 613612 1 Tablet(s) PO daily 01/26/2015 01/25/2015 Inactive levothyroxine 200 mcg tablet RxNorm: 931177 1 Tablet(s) PO every other day 01/26/2015 02/04/2015 Inactive [SAVINGS FOR NON-COVERED DRUGS -- BIN:549307, PCN: ASPROD1, Group: XXXXX, ID# XXXXXXX, Questions: . THIS IS NOT INSURANCE.] aspirin 325 mg tablet RxNorm: 180382 1 Tablet(s) PO daily No Start Date 05/03/2016 Inactive levothyroxine 75 mcg tablet RxNorm: 834346 1 Tablet(s) PO every other day No Start Date 02/04/2015 Inactive takes qod with 200mcg oxycodone 10 mg tablet RxNorm: 9538021 1 Tablet(s) PO Q6 as needed No Start Date 05/05/2015 Inactive indomethacin oral RxNorm: 5781 oral No Start Date 03/21/2017 Inactive Medication Administered No Medication Administered data Immunizations Vaccine Codes Date Status Pneumococcal (Adult) CVX: 133 11/30/2016 completed Assessments Condition Codes Effective Dates Cellulitis of left lower limb ICD-10: L03.116 ICD-9: 682.6 04/02/2017 Localized edema ICD-10: R60.0 ICD-9: 782.3 04/02/2017 Chronic gout due to renal impairment, left ankle and foot, without 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 ICD-9: 274.19 03/22/2017 Type 2 diabetes mellitus with hyperglycemia ICD-10: E11.65 ICD-9: 250.00 03/22/2017 Dysuria ICD-10: R30.0 ICD-9: 788.1 03/22/2017 Other specified hypothyroidism ICD-10: E03.8 ICD-9: 244.9 03/08/2017 Essential (primary) hypertension ICD-10: I10 ICD-9: 401.9 03/08/2017 Encounter for general adult medical examination with abnormal findings ICD-10: Z00.01 ICD-9: V70.0 11/30/2016 Encounter for immunization ICD-10: Z23 ICD-9: V03.9 11/30/2016 Chronic kidney disease, stage 3 (moderate) ICD-10: N18.3 ICD-9: 585.3 11/28/2016 Chronic pain syndrome ICD-10: G89.4 ICD-9: 338.4 05/04/2016 Vitamin B12 deficiency anemia due to intrinsic factor deficiency ICD-10: D51.0 ICD-9: 281.0 05/04/2016 CHRONIC PAIN SYNDROME ICD-9: 338.4 01/26/2015 Vitamin B12 deficiency ICD-9: 266.2 01/26/2015 ESSENTIAL HYPERTENSION ICD-9: 401.9 01/26/2015 HYPOTHYROIDISM ICD-9: 244.9 01/26/2015 GOUT ICD-9: 274.9 01/26/2015 ANEMIA ICD-9: 285.9 01/26/2015 Chronic renal insufficiency, stage III (moderate) ICD-9: 585.3 01/26/2015 Reason For Visit Reason For Visit Effective Dates Notes cellulitis 04/02/2017 improving cellulitis 03/26/2017 improving cellulitis 03/22/2017 diabetes mellitus 03/08/2017 diabetes mellitus 12/06/2016 Annual Medicare Wellness Exam 11/30/2016 hypertension 11/28/2016 hypertension 05/04/2016 medication follow up 11/04/2015 medication follow up 07/30/2015 knee pain 01/26/2015 Dr. Tellez did scopes 12 years ago Results Observation Observation Code Item Item Code Result Date Amylase Ord34 AMYLASE 19 U/L 03/22/2017 Uric [...] 27.9 pg 03/22/2017 Cbc With Differential Ord2 [facility]% 8.3 % 03/22/2017 Cbc With Differential Ord2 [...] 1.35 K/ul 03/22/2017 Cbc With Differential Ord2 [facility] ABS# 1.4 K/ul 03/22/2017 Cbc With Differential Ord2 Eos ABS# 0.2 K/ul 03/22/2017 Cbc With Differential Ord2 Baso ABS# 0.0 K/ul 03/22/2017 Comp Metabolic Hyc996 NA 134 mEq/L 03/22/2017 Comp Metabolic Dmk890 K 4.5 mEq/L 03/22/2017 Comp Metabolic You275 CL 93 mEq/L 03/22/2017 Comp Metabolic Cex110 CO2 31.0 mEq/L 03/22/2017 Comp Metabolic Iyy768 ANION GAP 15 03/22/2017 Comp Metabolic Tjm856 GLUCOSE 198 mg/dL 03/22/2017 Comp Metabolic Zgc350 Creat 1.5 mg/dL 03/22/2017 Comp Metabolic Evi037 eGFR 50 ml/min/1.73m2 03/22/2017 Comp Metabolic Hur873 BUN 32 mg/dL 03/22/2017 Comp Metabolic Ovs757 B/C Ratio 21.6 Ratio 03/22/2017 Comp Metabolic Lus844 CALCIUM 8.4 mg/dL 03/22/2017 Comp Metabolic Qya496 ALK PHOS 245 U/L 03/22/2017 Comp Metabolic Jxe946 AST(SGOT) 18 U/L 03/22/2017 Comp Metabolic Vnq379 ALT(SGPT) 17 U/L 03/22/2017 Comp Metabolic Ian699 BILI T 0.8 mg/dL 03/22/2017 Comp Metabolic Qsj144 ALBUMIN 2.9 g/dL 03/22/2017 Comp Metabolic Nfs279 TPRO 6.3 g/dL 03/22/2017 Comp Metabolic Blo269 GLOB 3.4 g/dL 03/22/2017 Comp Metabolic Frc491 A/G Ratio 0.8 Ratio 03/22/2017 Comp Metabolic Xio609 Osmo 281 mOsmo 03/22/2017 Lipase Fci785 LIPASE 12 U/L 03/22/2017 Comp Metabolic Fxi865 NA 142 mEq/L 03/09/2017 Comp Metabolic Igq885 K 4.8 mEq/L 03/09/2017 Comp Metabolic Lzg632 CL 103 mEq/L 03/09/2017 Comp Metabolic Wsg629 CO2 30.0 mEq/L 03/09/2017 Comp Metabolic Xav310 ANION GAP 14 03/09/2017 Comp Metabolic Yob657 GLUCOSE 152 mg/dL 03/09/2017 Comp Metabolic Hji125 Creat 1.3 mg/dL 03/09/2017 Comp Metabolic Kku987 eGFR 56 ml/min/1.73m2 03/09/2017 Comp Metabolic Nwo344 BUN 23 mg/dL 03/09/2017 Comp Metabolic Xws222 B/C Ratio 17.3 Ratio 03/09/2017 Comp Metabolic Uum964 CALCIUM 8.5 mg/dL 03/09/2017 Comp Metabolic Hwu734 ALK PHOS 97 U/L 03/09/2017 Comp Metabolic Emw821 AST(SGOT) 10 U/L 03/09/2017 Comp Metabolic Soi360 ALT(SGPT) 6 U/L 03/09/2017 Comp Metabolic Zcq364 BILI T 0.4 mg/dL 03/09/2017 Comp Metabolic Mpm386 ALBUMIN 3.4 g/dL 03/09/2017 Comp Metabolic Llz835 TPRO 6.2 g/dL 03/09/2017 Comp Metabolic Bzf523 GLOB 2.8 g/dL 03/09/2017 Comp Metabolic Zop720 A/G Ratio 1.2 Ratio 03/09/2017 Comp Metabolic Ner092 Osmo 290 mOsmo 03/09/2017 Free T4 Qpp261 FREE T4 0.86 ng/dL 03/08/2017 Cbc With [...] 28.2 pg 03/08/2017 Cbc With Differential Ord2 [facility]% 8.7 % 03/08/2017 Cbc With Differential Ord2 [...] 1.63 K/ul 03/08/2017 Cbc With Differential Ord2 [facility] ABS# 0.9 K/ul 03/08/2017 Cbc With Differential Ord2 Eos ABS# 0.5 K/ul 03/08/2017 Cbc With Differential Ord2 Baso ABS# 0.0 K/ul 03/08/2017 Tsh Ord6 hTSH II 4.52 uIU/mL 03/08/2017 %Hba1C Apb797 % HbA1c 70571- 6 8.5 % 03/08/2017 %Hba1C Gzu744 Gluc Ave 197 mg/dL 03/08/2017 %Hba1C Dqz127 % HbA1c 79921- 6 9.8 % 12/04/2016 %Hba1C Iiu554 Gluc Ave 235 mg/dL 12/04/2016 Tsh Ord6 hTSH II 10.65 uIU/mL 11/30/2016 Comp Metabolic Bwn909 NA 134 mEq/L 11/30/2016 Comp Metabolic Fzs066 K 5.0 mEq/L 11/30/2016 Comp Metabolic Kkr614 CL 95 mEq/L 11/30/2016 Comp Metabolic Ovj708 CO2 34.0 mEq/L 11/30/2016 Comp Metabolic Zpm616 ANION GAP 10 11/30/2016 Comp Metabolic Rls511 GLUCOSE 226 mg/dL 11/30/2016 Comp Metabolic Nyd029 Creat 1.3 mg/dL 11/30/2016 Comp Metabolic Beq976 eGFR 56 ml/min/1.73m2 11/30/2016 Comp Metabolic Qbp711 BUN 21 mg/dL 11/30/2016 Comp Metabolic Imr535 B/C Ratio 15.7 Ratio 11/30/2016 Comp Metabolic Htq954 CALCIUM 8.9 mg/dL 11/30/2016 Comp Metabolic Qxy106 ALK PHOS 112 U/L 11/30/2016 Comp Metabolic Ffq849 AST(SGOT) 9 U/L 11/30/2016 Comp Metabolic Ehn435 ALT(SGPT) 7 U/L 11/30/2016 Comp Metabolic Zkq065 BILI T 0.6 mg/dL 11/30/2016 Comp Metabolic Rpn959 ALBUMIN 3.6 g/dL 11/30/2016 Comp Metabolic Gop765 TPRO 6.4 g/dL 11/30/2016 Comp Metabolic Loy261 GLOB 2.9 g/dL 11/30/2016 Comp Metabolic Vpk783 A/G Ratio 1.2 Ratio 11/30/2016 Comp Metabolic Xrw423 Osmo 278 mOsmo 11/30/2016 Lipid Ord30 CHOL [...] 13.0 % 11/30/2016 Cbc With Differential Ord2 [facility]% 7.9 % 11/30/2016 Cbc With Differential Ord2 [...] 1.34 K/ul 11/30/2016 Cbc With Differential Ord2 [facility] ABS# 0.8 K/ul 11/30/2016 Cbc With Differential Ord2 Eos ABS# 0.3 K/ul 11/30/2016 Cbc With Differential Ord2 Baso ABS# 0.0 K/ul 11/30/2016 Free T4 Eqk478 FREE T4 0.89 ng/dL 11/30/2016 Review of Systems System Result Effective Dates Constitutional recent illness 04/02/2017 Constitutional No anorexia [...] Codes Date URINALYSIS NONAUTO W/O SCOPE CPT-4: 16353Exhqdeh 03/22/2017 URINALYSIS NONAUTO W/O SCOPE CPT-4: 65511Ugrugcx 03/21/2017 PPPS, SUBSEQ VISIT CPT-4: L7092Dqtgwvo 11/30/2016 PNEUMOCOCCAL VACC 13 JAVIER IM Formatting Model/CDA Sections, Assigned to SNOMED CT: 14785945 CPT-4: 92245Omyotrx 11/30/2016 ADMIN PNEUMOCOCCAL VACCINE SNOMED CT: 69441021 CPT-4: X7750Tzgngyk 11/30/2016 Vital Signs Date Vital 04/02/2017 Blood Pressure 1: 118/62 Code: 8480-6 BMI: 38.2 Code: 12345-7 Heart Rate 1: 53 bpm Height: 5'10" SpO2: 93% Weight: 266 lbs 03/26/2017 Blood Pressure 1: 114/62 Code: 8480-6 BMI: 38.3 Code: 17951-8 Height: 5'10" Weight: 267 lbs 03/22/2017 Blood Pressure 1: 122/64 Code: 8480-6 BMI: 40.0 Code: 01214-1 Heart Rate 1: 52 bpm Height: 5'10" SpO2: 94% Weight: 279 lbs 03/08/2017 Blood Pressure 1: 124/70 Code: 8480-6 BMI: 39.4 Code: 63812-0 Heart Rate 1: 51 bpm Height: 5'10" SpO2: 94% Weight: 274 lbs 8 oz 12/06/2016 Blood Pressure 1: 126/62 Code: 8480-6 BMI: 40.3 Code: 54738-6 Heart Rate 1: 50 bpm Height: 5'10" SpO2: 94% Weight: 281 lbs 11/30/2016 Blood Pressure 1: 112/62 Code: 8480-6 BMI: 40.3 Code: 07681-3 Heart Rate 1: 52 bpm Height: 5'10" SpO2: 93% Waist Measure (cm): 135 cm Weight: 281 lbs 11/28/2016 Blood Pressure 1: 132/72 Code: 8480-6 BMI: 40.3 Code: 11981-2 Heart Rate 1: 50 bpm Height: 5'10" Weight: 281 lbs 05/04/2016 Blood Pressure 1: 128/78 Code: 8480-6 BMI: 38.5 Code: 98057-9 Heart Rate 1: 74 bpm Height: 5'10" SpO2: 98% Weight: 268 lbs 8 oz 11/04/2015 Blood Pressure 1: 136/60 Code: 8480-6 BMI: 38.0 Code: 86831-3 Heart Rate 1: 55 bpm Height: 5'10" SpO2: 94% Weight: 265 lbs 07/30/2015 Blood Pressure 1: 128/74 Code: 8480-6 BMI: 38.0 Code: 81742-7 Heart Rate 1: 47 bpm Height: 5'10" SpO2: 97% Weight: 265 lbs 01/26/2015 Blood Pressure 1: 122/64 Code: 8480-6 BMI: 34.0 Code: 24976-7 Heart Rate 1: 68 bpm Height: 5'10" Weight: 237 lbs Functional Status No Functional Status data History of Present Illness Symptom Name Status Result Effective Date Notes cellulitis Quality acute 04/02/2017 None cellulitis Onset [...] Encounters Encounter Performer Location Codes Date ) [id number] EST. PATIENT, LEVEL III Diagnosis: Cellulitis of left lower limb[ICD10: L03.116] Diagnosis: Localized edema[ICD10: R60.0] Sarah Sanchez MD, [facility] CPT-4: 06249 04/02/2017 ([id number]) Miscellaneous no charge Diagnosis: Localized edema[ICD10: R60.0] Diagnosis: Cellulitis of left lower limb[ICD10: L03.116] Sarah Sanchez MD, [facility] CPT-4: 16279 03/26/2017 ([id number]) 74332 EST. 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 CPT-4: 52976 03/22/2017 [id number]) 17753 EST. PATIENT, LEVEL IV Diagnosis: Type 2 diabetes mellitus with hyperglycemia[ICD10: E11.65] Diagnosis: Other specified hypothyroidism[ICD10: E03.8] Diagnosis: Essential (primary) hypertension[ICD10: I10] Sarah Sanchez MD, [facility] CPT-4: 50753 03/08/2017 ([id number]) 39000 EST. PATIENT, LEVEL III Diagnosis: Type 2 diabetes mellitus with hyperglycemia[ICD10: E11.65] Diagnosis: Other specified hypothyroidism[ICD10: E03.8] Sarah Sanchez MD, [facility] CPT-4: 79887 12/06/2016 ([id number]) 68634 EST. PATIENT, LEVEL IV Diagnosis: Essential (primary) hypertension[ICD10: I10] Diagnosis: Chronic kidney disease, stage 3 (moderate)[ICD10: N18.3] Dorene Sanchez MD, [facility] CPT-4: 05426 11/28/2016 ([id number]) 28274 EST. PATIENT, LEVEL IV Diagnosis: Essential (primary) hypertension[ICD10: I10] Diagnosis: Chronic pain syndrome[ICD10: G89.4] Diagnosis: Chronic kidney disease, stage 3 (moderate)[ICD10: N18.3] Diagnosis: Vitamin B12 deficiency anemia due to intrinsic factor deficiency[ICD10: D51.0] Diagnosis: Other specified hypothyroidism[ICD10: E03.8] Dorene Sanchez MD, [facility] CPT-4: 87935 05/04/2016 43966 EST. PATIENT, LEVEL III Diagnosis: Chronic pain syndrome[ICD10: G89.4] Diagnosis: Essential (primary) hypertension[ICD10: I10] Diagnosis: Other specified hypothyroidism[ICD10: E03.8] Kiki Sanchez MD, [facility] CPT-4: 56142 11/04/2015 42420 EST. PATIENT, LEVEL III Diagnosis: Chronic pain syndrome[ICD10: G89.4] Diagnosis: Essential (primary) hypertension[ICD10: I10] Kiki Sanchez MD, [facility] CPT-4: 77270 07/30/2015 ([id number]) OFFICE/OUTPATIENT VISIT NEW Diagnosis: ESSENTIAL HYPERTENSION[ICD9: 401.9] Diagnosis: HYPOTHYROIDISM[ICD9: 244.9] Diagnosis: ANEMIA[ICD9: 285.9] Diagnosis: Vitamin B12 deficiency[ICD9: 266.2] Diagnosis: CHRONIC PAIN SYNDROME[ICD9: 338.4] Diagnosis: Chronic renal insufficiency, stage III (moderate)[ICD9: 585.3] Diagnosis: GOUT[ICD9: 274.9] [facility] CPT-4: 55998 01/26/2015 Plan of Care Planned Activity Notes Codes Status Date Visit Plan: Wpifmldcqa-aydmxwxuw-mkcbxlp to finish abx-no further treatment indicated Edema-significantly improved-no longer weeping-continue unna boots twice weekly with home health 04/02/2017 Appointment: Sarah Hernandes WPtel: [phone] (30 min) Complex 04/02/2017 Patient Education: Patient Medication Summary Completed 04/02/2017 Patient Education: Obesity Completed 04/02/2017 Visit Plan: Cellulitis-left leg-continue levaquin Edema-increase lasix/potassium- consult [facility] for unna boots/dressing changes 03/26/2017 Appointment: Sarah Hernandes WPtel[phone] (15 min) Moderate 03/26/2017 Patient Education: Patient [...] and if not better, will agree to ad mission. Marked area of cellulitis with permanent marker and instructed patient to go to ER if redness spreads beyond margins. Patient verbalized understanding. Also discussed home health for nursing to do wraps to bilateral lower legs- patient refuses and states he has the wraps [...] with treatment/testing of blood sugars and refuses medications- again discussed the risks of uncontrolled blood sugars [...] and if not better, will agree to ad mission. Marked area of cellulitis with permanent marker and instructed patient to go to ER if redness spreads beyond margins. Patient verbalized understanding. Also discussed home health for nursing to do wraps to bilateral lower legs- patient refuses and states he has the wraps [...] with treatment/testing of blood sugars and refuses medications- again discussed the risks of uncontrolled blood sugars with patient-patient verbalized understanding of plan. Addendum-patient's GFR 50-recommend patient stop the indomethacin-stop aleve 03/22/2017 Appointment: Sarah Hernandes WPtel: [phone] [place] (15 min) Moderate 03/22/2017 Patient Education: Patient Medication Summary Completed 03/22/2017 Appointment: Lab Draw 03/21/2017 Patient Education: Patient Medication Summary Completed 03/21/2017 Visit Plan: Hypertension - well controlled - continue with current medications, continue with no added salt diet. Pt has been encouraged to exercise daily.The pt has been advised to call the office if there are any acute concerns about change in blood pressure readings at home.Diabetes Mellitus -patient does not check blood sugars [...] diet. Pt has been encouraged to exercise daily.The pt has been advised to call the office if there are any acute concerns about change in blood pressure readings at home.Diabetes Mellitus -patient does not check blood sugars [...] of control. 03/08/2017 Appointment: Sarah Hernandes WPtel: [address] [place], [place] [phone] (30 min) Complex 03/08/2017 Patient Education: Patient [...] risk and to maintain independence in the home.Today we discussed the need for the patient [...] risk and to maintain independence in the home.Today we discussed the need for the patient [...] risk and to maintain independence in the home.Today we discussed the need for the patient to create paperwork for Advanced directives as well as for the patient to provide this office with a copy of her DOPA paperwork for health care surrogate. 11/30/2016 Appointment: Sarah Hernandes WPtel: [address] [place], [place] [phone] [place] MCR - Annual Wellness Visit 11/30/2016 Patient Education: Patient Medication Summary Completed 11/30/2016 Visit Plan: Hypertension - well controlled - continue with current medications, continue with no added salt diet. Pt has been encouraged to exercise daily.The pt has been advised to call the office if there are any acute concerns about change in blood pressure readings at home.Renal failure - continue with increase in fluids. 11/28/2016 Appointment: [facility] [phone] [phone] (15 min) Moderate 11/28/2016 Patient Education: Patient Medication Summary Completed 11/28/2016 Patient Education: Obesity Completed 11/28/2016 Visit Plan: Hypertension - well controlled - continue with current medications, continue with no added salt diet. Pt has been encouraged to exercise daily.The pt has been advised to call the office if there are any acute concerns about change in blood pressure readings at home.Chronic Pain Syndrome - pt has chronic pain - has been maintained on current medications, has not sought out other medications, only uses PRN pain medications as directed, and understands the consequences of over-medication.CKD - continue with supportive care and medication [...] directed, and understands the consequences of over- medication.Hypertension - well controlled - continue with current medications, continue with no added salt diet. Pt has been encouraged to exercise daily.The pt has been advised to call the office if there are any acute concerns about change in blood pressure readings at home.Hypothyroidism - pt with chronic hypothyroidism, continue with [...] diet. Pt has been encouraged to exercise daily.The pt has been advised to call the office if there are any acute concerns about change in blood pressure readings at home.Anemia - multifactorial - recommended pt to have labs today - check vitamin B12, folate, iron studies.Chronic renal insufficiency - recommended pt to have repeat labs today - need to be careful with indomethacin.Chronic Pain syndrome - refill oxycodone.Hypothyroidism - pt with chronic hypothyroidism, continue with current medication, will monitor pt to signs or symptoms of lack of adequate supplementation. Pt is to continue with current dose of medication unless directed otherwise. Check labs at regular intervals wither q 3 months or q 6 months based on previous levels of control.Gout - pt to use indomethacin PRN - sparingly - he stopped allopurinol after having trouble with worsening gout symptoms.Vitamin B12 deficiency - pt to have labs - may need b12 shots. 01/26/2015 Patient Education: Patient Medication Summary Completed 01/26/2015 Patient Education: Hypertension Completed 01/26/2015 Instructions Comment . Hypertension - well controlled [...] repeat labs in 3 months-sooner if needed INCREASE LASIX AND POTASSIUM TO TWICE DAILY [facility] -WOUND CARE [...] HOSPITAL PHARMACY RECOMMEND OBTAINING MEDICAL POWER OF DRAWING BOX TENDER AND LIVING WILL PATIENT DOES NOT [...] YEAR SHINGLES VACCINATION TO BE ADMINISTERED AT [facility] RECOMMEND OBTAINING MEDICAL POWER OF DRAWING BOX TENDER AND LIVING WILL PATIENT DOES NOT [...] YEAR SHINGLES VACCINATION TO BE ADMINISTERED AT [facility] RECOMMEND OBTAINING MEDICAL POWER OF DRAWING BOX TENDER AND LIVING WILL PATIENT DOES NOT [...] her DOPA paperwork for health care surrogate. Monitor your blood pressure at home and [...] labs - may need b12 shots. . Ppvknydsng-jlgjxjjdx-aypallu to finish abx-no further treatment indicated Edema-significantly improved-no longer weeping-continue unna boots twice weekly with home health . Chronic Pain Syndrome - pt has [...]
--- OUTSIDE RECORDS SUMMARY | 2019-03-24 08:16 | XMS REPORT | CCD ---
Author Author [facility]ne Sanchez Organization [facility] Address [address] [place] [address] Phone Care Team Providers Care Director [employer] Name Role Phone PP Unavailable CCM Unavailable Summary Purpose Interface Exchange Insurance Providers Payer name Policy type / Coverage type Covered democrat ID Effective Begin Date Effective End Date WPS Medicare Part B Medicare Part B [id number] Unknown Unknown Family history Father Diagnosis Age At Onset Stroke Unknown Mother Diagnosis Age At Onset Stroke Unknown Diabetes mellitus Type 2 Unknown Social History Social History Element Codes Description Effective Dates Tobacco history SNOMED CT: 330590205 Currently uses smokeless tobacco Chews 05/04/2016 Marital status Unknown 01/26/2015 Number of children Unknown 3 01/26/2015 Employment Unknown Retired 01/26/[address]: 367237759 Never drinks alcohol quit in July 2014 [...] Fill Instructions Levaquin 500 mg tablet RxNorm: 079155 1 Tablet(s) PO daily 04/03/2017 04/12/2017 Active Levaquin 500 mg tablet RxNorm: 358899 1 Tablet(s) PO daily 04/03/2017 04/02/2017 Inactive Lasix 20 mg tablet RxNorm: 467599 1 Tablet(s) PO QDAY PRN 03/22/2017 No Stop Date Active daily x 5 days then as needed potassium chloride ER 10 mEq capsule,extended release RxNorm: 937415 1 Capsule(s) PO QDAY PRN 03/22/2017 No Stop Date Active daily x 5 days then as needed with lasix indomethacin 25 mg capsule RxNorm: 700455 1 Capsule(s) PO TID PRN 03/22/2017 03/22/2017 Inactive Levaquin 500 mg tablet RxNorm: 105477 1 Tablet(s) PO daily 03/22/2017 03/31/2017 Inactive oxycodone 20 mg tablet RxNorm: 8670258 1/2 Tablet(s) PO Q6 as needed 03/08/2017 04/06/2017 Active bisoprolol 5 mg-hydrochlorothiazide 6.25 mg tablet RxNorm: 538078 TAKE ONE TABLET BY MOUTH DAILY 02/14/2017 05/14/2017 Active oxycodone 20 mg tablet RxNorm: 6149154 1/2 Tablet(s) PO Q6 as needed 02/08/2017 03/07/2017 Inactive oxycodone 20 mg tablet RxNorm: 5705798 1/2 Tablet(s) PO Q6 as needed 01/08/2017 02/06/2017 Inactive levothyroxine 175 mcg tablet RxNorm: 356072 1 Tablet(s) PO daily 12/06/2016 06/03/2017 Active [SAVINGS FOR NON-COVERED DRUGS -- BIN:[id number], PCN: ASPROD1, Group: XXXXX, ID# XXXXXXX, Questions: . THIS IS NOT INSURANCE.] oxycodone 20 mg tablet RxNorm: 1657709 1/2 Tablet(s) PO Q6 as needed 12/04/2016 01/02/2017 Inactive oxycodone 20 mg tablet RxNorm: 3565717 1/2 Tablet(s) PO Q6 as needed 11/09/2016 12/03/2016 Inactive bisoprolol 5 mg-hydrochlorothiazide 6.25 mg tablet RxNorm: 817780 TAKE ONE TABLET BY MOUTH DAILY 11/08/2016 02/05/2017 Inactive oxycodone 20 mg tablet RxNorm: 5944314 1/2 Tablet(s) PO Q6 as needed 10/05/2016 11/03/2016 Inactive oxycodone 20 mg tablet RxNorm: 4070198 1/2 Tablet(s) PO Q6 as needed 09/06/2016 10/04/2016 Inactive oxycodone 20 mg tablet RxNorm: 7111641 1/2 Tablet(s) PO Q6 as needed 08/07/2016 09/05/2016 Inactive oxycodone 20 mg tablet RxNorm: 1212637 1/2 Tablet(s) PO Q6 as needed 07/04/2016 08/06/2016 Inactive oxycodone 20 mg tablet RxNorm: 5224251 1/2 Tablet(s) PO Q6 as needed 05/29/2016 07/03/2016 Inactive levothyroxine 150 mcg tablet RxNorm: 873056 1 Tablet(s) PO daily 04/10/2016 04/09/2016 Inactive [SAVINGS FOR NON-COVERED DRUGS -- BIN:[id number], PCN: ASPROD1, Group: XXXXX, ID# XXXXXXX, Questions: . THIS IS NOT INSURANCE.] oxycodone 20 mg tablet RxNorm: 5017647 1/2 Tablet(s) PO Q6 as needed 04/10/2016 05/28/2016 Inactive levothyroxine 150 mcg tablet RxNorm: 205653 1 Tablet(s) PO daily 04/10/2016 10/06/2016 Inactive [SAVINGS FOR NON-COVERED DRUGS -- BIN:[id number], PCN: ASPROD1, Group: XXXXX, ID# XXXXXXX, Questions: . THIS IS NOT INSURANCE.] bisoprolol 5 mg-hydrochlorothiazide 6.25 mg tablet RxNorm: 293571 1 Tablet(s) PO daily 02/16/2016 05/15/2016 Inactive oxycodone 20 mg tablet RxNorm: 9563345 1/2 Tablet(s) PO Q6 as needed 02/16/2016 04/09/2016 Inactive oxycodone 20 mg tablet RxNorm: 8286029 1/2 Tablet(s) PO Q6 as needed 01/04/2016 02/15/2016 Inactive bisoprolol 5 mg-hydrochlorothiazide 6.25 mg tablet RxNorm: 921100 1 Tablet(s) PO daily 11/19/2015 01/17/2016 Inactive bisoprolol 5 mg-hydrochlorothiazide 6.25 mg tablet RxNorm: 873679 1 Tablet(s) PO daily 11/04/2015 11/18/2015 Inactive oxycodone 20 mg tablet RxNorm: 8146156 1/2 Tablet(s) PO Q6 as needed 10/27/2015 01/03/2016 Inactive levothyroxine 150 mcg tablet RxNorm: 720279 1 Tablet(s) PO daily 08/26/2015 02/21/2016 Inactive [SAVINGS FOR NON-COVERED DRUGS -- BIN:[id number], PCN: ASPROD1, Group: XXXXX, ID# XXXXXXX, Questions: . THIS IS NOT INSURANCE.] bisoprolol 5 mg-hydrochlorothiazide 6.25 mg tablet RxNorm: 553126 1 Tablet(s) PO daily 08/26/2015 10/24/2015 Inactive oxycodone 10 mg tablet RxNorm: 1586515 1 Tablet(s) PO Q6 as needed 05/06/2015 10/26/2015 Inactive levothyroxine 150 mcg tablet RxNorm: 744343 1 Tablet(s) PO daily 02/05/2015 08/03/2015 Inactive [SAVINGS FOR NON-COVERED DRUGS -- BIN:[id number], PCN: ASPROD1, Group: XXXXX, ID# XXXXXXX, Questions: . THIS IS NOT INSURANCE.] Vitamin D2 50,000 unit capsule RxNorm: 931539 1 Capsule(s) PO weekly 02/05/2015 05/05/2015 Inactive [SAVINGS FOR NON-COVERED DRUGS -- BIN:038712, PCN: ASPROD1, Group: XXXXX, ID# XXXXXXX, Questions: . THIS IS NOT INSURANCE.] Vitamin D2 50,000 unit capsule RxNorm: 716115 1 Capsule(s) PO weekly 02/05/2015 02/04/2015 Inactive bisoprolol 5 mg-hydrochlorothiazide 6.25 mg tablet RxNorm: 819517 1 Tablet(s) PO daily 01/26/2015 02/24/2015 Inactive levothyroxine 200 mcg tablet RxNorm: 521939 1 Tablet(s) PO daily 01/26/2015 01/25/2015 Inactive levothyroxine 200 mcg tablet RxNorm: 342488 1 Tablet(s) PO every other day 01/26/2015 02/04/2015 Inactive [SAVINGS FOR NON-COVERED DRUGS -- BIN:787678, PCN: ASPROD1, Group: XXXXX, ID# XXXXXXX, Questions: . THIS IS NOT INSURANCE.] aspirin 325 mg tablet RxNorm: 808487 1 Tablet(s) PO daily No Start Date 05/03/2016 Inactive levothyroxine 75 mcg tablet RxNorm: 110308 1 Tablet(s) PO every other day No Start Date 02/04/2015 Inactive takes qod with 200mcg oxycodone 10 mg tablet RxNorm: 9797464 1 Tablet(s) PO Q6 as needed No [...] 27.9 pg 03/22/2017 Cbc With Differential Ord2 [place]% 8.3 % 03/22/2017 Cbc With Differential Ord2 [...] 1.35 K/ul 03/22/2017 Cbc With Differential Ord2 [place] ABS# 1.4 K/ul 03/22/2017 Cbc With Differential Ord2 Eos ABS# 0.2 K/ul 03/22/2017 Cbc With Differential Ord2 Baso ABS# 0.0 K/ul 03/22/2017 Comp Metabolic Lgt300 NA 134 mEq/L 03/22/2017 Comp Metabolic Pbd592 K 4.5 mEq/L 03/22/2017 Comp Metabolic Rty521 CL 93 mEq/L 03/22/2017 Comp Metabolic Nbc289 CO2 31.0 mEq/L 03/22/2017 Comp Metabolic Ant627 ANION GAP 15 03/22/2017 Comp Metabolic Nus511 GLUCOSE 198 mg/dL 03/22/2017 Comp Metabolic Uje764 Creat 1.5 mg/dL 03/22/2017 Comp Metabolic Fuf766 eGFR 50 ml/min/1.73m2 03/22/2017 Comp Metabolic Jkj501 BUN 32 mg/dL 03/22/2017 Comp Metabolic Itw339 B/C Ratio 21.6 Ratio 03/22/2017 Comp Metabolic Abo167 CALCIUM 8.4 mg/dL 03/22/2017 Comp Metabolic Mgl117 ALK PHOS 245 U/L 03/22/2017 Comp Metabolic Usa158 AST(SGOT) 18 U/L 03/22/2017 Comp Metabolic Umj936 ALT(SGPT) 17 U/L 03/22/2017 Comp Metabolic Vgl167 BILI T 0.8 mg/dL 03/22/2017 Comp Metabolic Yoj885 ALBUMIN 2.9 g/dL 03/22/2017 Comp Metabolic Fmm613 TPRO 6.3 g/dL 03/22/2017 Comp Metabolic Gnj874 GLOB 3.4 g/dL 03/22/2017 Comp Metabolic Qtr222 A/G Ratio 0.8 Ratio 03/22/2017 Comp Metabolic Pij802 Osmo 281 mOsmo 03/22/2017 Lipase Tja967 LIPASE 12 U/L 03/22/2017 Comp Metabolic Onn318 NA 142 mEq/L 03/09/2017 Comp Metabolic Ppg397 K 4.8 mEq/L 03/09/2017 Comp Metabolic Ykc078 CL 103 mEq/L 03/09/2017 Comp Metabolic Xhd179 CO2 30.0 mEq/L 03/09/2017 Comp Metabolic Xdj848 ANION GAP 14 03/09/2017 Comp Metabolic Oxx470 GLUCOSE 152 mg/dL 03/09/2017 Comp Metabolic Boc732 Creat 1.3 mg/dL 03/09/2017 Comp Metabolic Iww880 eGFR 56 ml/min/1.73m2 03/09/2017 Comp Metabolic Ina004 BUN 23 mg/dL 03/09/2017 Comp Metabolic Jhg027 B/C Ratio 17.3 Ratio 03/09/2017 Comp Metabolic Xkw711 CALCIUM 8.5 mg/dL 03/09/2017 Comp Metabolic Gtd383 ALK PHOS 97 U/L 03/09/2017 Comp Metabolic Fcc126 AST(SGOT) 10 U/L 03/09/2017 Comp Metabolic Fwy152 ALT(SGPT) 6 U/L 03/09/2017 Comp Metabolic Xts373 BILI T 0.4 mg/dL 03/09/2017 Comp Metabolic Zia666 ALBUMIN 3.4 g/dL 03/09/2017 Comp Metabolic Mir630 TPRO 6.2 g/dL 03/09/2017 Comp Metabolic Vuc931 GLOB 2.8 g/dL 03/09/2017 Comp Metabolic Wcy039 A/G Ratio 1.2 Ratio 03/09/2017 Comp Metabolic Eag449 Osmo 290 mOsmo 03/09/2017 Free T4 Ywg408 FREE T4 0.86 ng/dL 03/08/2017 Cbc With [...] 28.2 pg 03/08/2017 Cbc With Differential Ord2 [place]% 8.7 % 03/08/2017 Cbc With Differential Ord2 [...] 1.63 K/ul 03/08/2017 Cbc With Differential Ord2 [place] ABS# 0.9 K/ul 03/08/2017 Cbc With Differential Ord2 Eos ABS# 0.5 K/ul 03/08/2017 Cbc With Differential Ord2 Baso ABS# 0.0 K/ul 03/08/2017 Tsh Ord6 hTSH II 4.52 uIU/mL 03/08/2017 %Hba1C Qpe459 % HbA1c 88427- 6 8.5 % 03/08/2017 %Hba1C Kco435 Gluc Ave 197 mg/dL 03/08/2017 %Hba1C Caz757 % HbA1c 77265- 6 9.8 % 12/04/2016 %Hba1C Ujk743 Gluc Ave 235 mg/dL 12/04/2016 Tsh Ord6 hTSH II 10.65 uIU/mL 11/30/2016 Comp Metabolic Tgl545 NA 134 mEq/L 11/30/2016 Comp Metabolic Hwh171 K 5.0 mEq/L 11/30/2016 Comp Metabolic Rzb066 CL 95 mEq/L 11/30/2016 Comp Metabolic Qli282 CO2 34.0 mEq/L 11/30/2016 Comp Metabolic Onc154 ANION GAP 10 11/30/2016 Comp Metabolic Uzj936 GLUCOSE 226 mg/dL 11/30/2016 Comp Metabolic Hzv316 Creat 1.3 mg/dL 11/30/2016 Comp Metabolic Yxc545 eGFR 56 ml/min/1.73m2 11/30/2016 Comp Metabolic Vob088 BUN 21 mg/dL 11/30/2016 Comp Metabolic Xwt963 B/C Ratio 15.7 Ratio 11/30/2016 Comp Metabolic Tfi226 CALCIUM 8.9 mg/dL 11/30/2016 Comp Metabolic Ydb478 ALK PHOS 112 U/L 11/30/2016 Comp Metabolic Irk930 AST(SGOT) 9 U/L 11/30/2016 Comp Metabolic Bdf241 ALT(SGPT) 7 U/L 11/30/2016 Comp Metabolic Uks066 BILI T 0.6 mg/dL 11/30/2016 Comp Metabolic Ept121 ALBUMIN 3.6 g/dL 11/30/2016 Comp Metabolic Whd695 TPRO 6.4 g/dL 11/30/2016 Comp Metabolic Air009 GLOB 2.9 g/dL 11/30/2016 Comp Metabolic Fgo609 A/G Ratio 1.2 Ratio 11/30/2016 Comp Metabolic Lqm828 Osmo 278 mOsmo 11/30/2016 Lipid Ord30 CHOL 170 mg/dL 11/30/2016 Lipid Ord30 HDL 27.0 mg/dl 11/30/2016 Lipid Ord30 TRIG 119 mg/dL 11/30/2016 Lipid Ord30 LDL 119 mg/dL 11/30/2016 Lipid Ord30 C/HDL 6.3 Ratio 11/30/2016 Cbc With Differential Ord2 WBC 10.29 K/ul 11/30/2016 Cbc With Differential Ord2 RBC 4.32 M/ul 11/30/2016 Cbc With Differential Ord2 HGB 13.2 g/dl 11/30/2016 Cbc With Differential Ord2 Neut% 76.6 % 11/30/2016 Cbc With Differential Ord2 HCT 42.8 % 11/30/2016 Cbc With Differential Ord2 MCV 99.1 fl 11/30/2016 Cbc With Differential Ord2 Lymph% 13.0 % 11/30/2016 Cbc With Differential Ord2 MCH 30.6 pg 11/30/2016 Cbc With Differential Ord2 [place]% 7.9 % 11/30/2016 Cbc With Differential Ord2 [...] 1.34 K/ul 11/30/2016 Cbc With Differential Ord2 [place] ABS# 0.8 K/ul 11/30/2016 Cbc With Differential Ord2 Eos ABS# 0.3 K/ul 11/30/2016 Cbc With Differential Ord2 Baso ABS# 0.0 K/ul 11/30/2016 Free T4 Fxk264 FREE T4 0.89 ng/dL 11/30/2016 Review of [...] Codes Date URINALYSIS NONAUTO W/O SCOPE CPT-4: 45801Culljqw 03/22/2017 URINALYSIS NONAUTO W/O SCOPE CPT-4: 01069Dawbtlv 03/21/2017 PPPS, SUBSEQ VISIT CPT-4: O8393Mjackud 11/30/2016 PNEUMOCOCCAL VACC 13 JAVIER IM Formatting Model/CDA Sections, Assigned to SNOMED CT: 43233624 CPT-4: 94339Vsfdqux 11/30/2016 ADMIN PNEUMOCOCCAL VACCINE SNOMED CT: 76099747 CPT-4: X9273Qwurxno 11/30/2016 Vital Signs Date Vital 04/02/2017 Blood Pressure 1: 118/62 Code: 8480-6 BMI: 38.2 Code: 04269-3 Heart Rate 1: 53 bpm Height: 5'10" SpO2: 93% Weight: 266 lbs 03/26/2017 Blood Pressure 1: 114/62 Code: 8480-6 BMI: 38.3 Code: 98524-1 Height: 5'10" Weight: 267 lbs 03/22/2017 Blood Pressure 1: 122/64 Code: 8480-6 BMI: 40.0 Code: 89361-7 Heart Rate 1: 52 bpm Height: 5'10" SpO2: 94% Weight: 279 lbs 03/08/2017 Blood Pressure 1: 124/70 Code: 8480-6 BMI: 39.4 Code: 01438-9 Heart Rate 1: 51 bpm Height: 5'10" SpO2: 94% Weight: 274 lbs 8 oz 12/06/2016 Blood Pressure 1: 126/62 Code: 8480-6 BMI: 40.3 Code: 10484-2 Heart Rate 1: 50 bpm Height: 5'10" SpO2: 94% Weight: 281 lbs 11/30/2016 Blood Pressure 1: 112/62 Code: 8480-6 BMI: 40.3 Code: 27542-9 Heart Rate 1: 52 bpm Height: 5'10" SpO2: 93% Waist Measure (cm): 135 cm Weight: 281 lbs 11/28/2016 Blood Pressure 1: 132/72 Code: 8480-6 BMI: 40.3 Code: 53650-8 Heart Rate 1: 50 bpm Height: 5'10" Weight: 281 lbs 05/04/2016 Blood Pressure 1: 128/78 Code: 8480-6 BMI: 38.5 Code: 43367-6 Heart Rate 1: 74 bpm Height: 5'10" SpO2: 98% Weight: 268 lbs 8 oz 11/04/2015 Blood Pressure 1: 136/60 Code: 8480-6 BMI: 38.0 Code: 43647-8 Heart Rate 1: 55 bpm Height: 5'10" SpO2: 94% Weight: 265 lbs 07/30/2015 Blood Pressure 1: 128/74 Code: 8480-6 BMI: 38.0 Code: 84631-0 Heart Rate 1: 47 bpm Height: 5'10" SpO2: 97% Weight: 265 lbs 01/26/2015 Blood Pressure 1: 122/64 Code: 8480-6 BMI: 34.0 Code: 55122-5 Heart Rate 1: 68 bpm Height: 5'10" [...] Encounters Encounter Performer Location Codes Date ) 14150 EST. PATIENT, LEVEL III Diagnosis: Cellulitis of left lower limb[ICD10: L03.116] Diagnosis: Localized edema[ICD10: R60.0] Sarah Sanchez MD, [facility] CPT-4: 05785 04/02/2017 ([id number]) Miscellaneous no charge Diagnosis: Localized edema[ICD10: R60.0] Diagnosis: Cellulitis of left lower limb[ICD10: L03.116] Sarah Sanchez MD, [facility] CPT-4: 87300 03/26/2017 ([id number]) 20022 EST. PATIENT, LEVEL IV Diagnosis: Cellulitis of left lower limb[ICD10: L03.116] Diagnosis: Chronic gout due to renal impairment, left ankle and foot, without tophus (tophi)[ICD10: M1A.3720] Diagnosis: Localized edema[ICD10: R60.0] Diagnosis: Type 2 diabetes mellitus with hyperglycemia[ICD10: E11.65] Diagnosis: Dysuria[ICD10: R30.0] Dorene Sanchez MD, [facility] CPT-4: 50631 03/22/2017 [id number]) 33208 EST. PATIENT, LEVEL IV Diagnosis: Type 2 diabetes mellitus with hyperglycemia[ICD10: E11.65] Diagnosis: Other specified hypothyroidism[ICD10: E03.8] Diagnosis: Essential (primary) hypertension[ICD10: I10] Sarah Sanchez MD, [facility] CPT-4: 69017 03/08/2017 ([id number]) 39362 EST. PATIENT, LEVEL III Diagnosis: Type 2 diabetes mellitus with hyperglycemia[ICD10: E11.65] Diagnosis: Other specified hypothyroidism[ICD10: E03.8] Sarah Sanchez MD, [facility] CPT-4: 63412 12/06/2016 ([id number]) 53864 EST. PATIENT, LEVEL IV Diagnosis: Essential (primary) hypertension[ICD10: I10] Diagnosis: Chronic kidney disease, stage 3 (moderate)[ICD10: N18.3] Dorene Sanchez MD, [facility] CPT-4: 68839 11/28/2016 ([id number]) 83462 EST. PATIENT, LEVEL IV Diagnosis: Essential (primary) hypertension[ICD10: I10] Diagnosis: Chronic pain syndrome[ICD10: G89.4] Diagnosis: Chronic kidney disease, stage 3 (moderate)[ICD10: N18.3] Diagnosis: Vitamin B12 deficiency anemia due to intrinsic factor deficiency[ICD10: D51.0] Diagnosis: Other specified hypothyroidism[ICD10: E03.8] Dorene Sanchez MD, [facility] CPT-4: 93434 05/04/2016 [id number] EST. PATIENT, LEVEL III Diagnosis: Chronic pain syndrome[ICD10: G89.4] Diagnosis: Essential (primary) hypertension[ICD10: I10] Diagnosis: Other specified hypothyroidism[ICD10: E03.8] Kiki Sanchez MD, [facility] CPT-4: 26538 11/04/2015 31579 EST. PATIENT, LEVEL III Diagnosis: Chronic pain syndrome[ICD10: G89.4] Diagnosis: Essential (primary) hypertension[ICD10: I10] Kiki Sanchez MD, [facility] CPT-4: 47111 07/30/2015 ([id number]) OFFICE/OUTPATIENT VISIT NEW Diagnosis: ESSENTIAL HYPERTENSION[ICD9: 401.9] Diagnosis: HYPOTHYROIDISM[ICD9: 244.9] Diagnosis: ANEMIA[ICD9: 285.9] Diagnosis: Vitamin B12 deficiency[ICD9: 266.2] Diagnosis: CHRONIC PAIN SYNDROME[ICD9: 338.4] Diagnosis: Chronic renal insufficiency, stage III (moderate)[ICD9: 585.3] Diagnosis: GOUT[ICD9: 274.9] [facility] CPT-4: 54231 01/26/2015 Plan of Care Planned Activity Notes Codes Status Date Visit Plan: Zwmhavunwt-ymprmyhkr-dhjkife to finish abx-no further treatment indicated Edema-significantly improved-no longer weeping-continue unna boots twice weekly with home health 04/02/2017 Appointment: Sarah Hernandes WPtel: [phone] (30 min) Complex 04/02/2017 Patient Education: Patient Medication Summary Completed 04/02/2017 Patient Education: Obesity Completed 04/02/2017 Visit Plan: Cellulitis-left leg-continue levaquin Edema-increase lasix/potassium- consult [facility] for unna boots/dressing changes 03/26/2017 Appointment: [facility] Hern[phone] (15 min) Moderate 03/26/2017 Patient Education: Patient [...] aleve 03/22/2017 Appointment: Sarah Hernandes WPtel[phone] [place] (15 min) Moderate 03/22/2017 Patient Education: [...] of control. 03/08/2017 Appointment: Sarah Hernandes WPtel: [address] [place], [place] [phone] (30 min) Complex 03/08/2017 Patient Education: Patient [...] care surrogate. 11/30/2016 Appointment: Sarah Hernandes WPtel: [address] [place], [place] [phone] [place] MCR - Annual Wellness Visit 11/30/2016 [...] fluids. 11/28/2016 [facility] [phone] [phone] ([facility] min) Moderate 11/28/2016 Patient Education: [...] CARE . Cellulitis-left leg-continue levaquin Edema-increase lasix/potassium-consult [facility] for unna boots/dressing changes WRAP LEGS-THIGHS [...] CENTER PHARMACY RECOMMEND OBTAINING MEDICAL POWER OF BOX OFFICE ATTENDANT AND LIVING WILL PATIENT DOES NOT HAVE [...] YEAR SHINGLES VACCINATION TO BE ADMINISTERED AT [facility] RECOMMEND OBTAINING MEDICAL POWER OF BOX OFFICE ATTENDANT AND LIVING WILL PATIENT DOES NOT HAVE [...] YEAR SHINGLES VACCINATION TO BE ADMINISTERED AT [facility] RECOMMEND OBTAINING MEDICAL POWER OF BOX OFFICE ATTENDANT AND LIVING WILL PATIENT DOES NOT HAVE [...] labs - may need b12 shots. . Supackccuu-qeuudztfb-uhumelg to finish abx-no further treatment indicated Edema-significantly [...]
--- OUTSIDE RECORDS SUMMARY | 2019-03-24 08:18 | XMS REPORT | CCD ---
Author Author Dorene Sanchez Organization [facility] Address [address] [place] [address] Phone Care Team Providers Care Battery Stacker Name Role Phone PP Unavailable CCM Unavailable Summary Purpose Interface Exchange Insurance Providers Payer name Policy type / Coverage type Covered democrat ID Effective Begin Date Effective End Date WPS Medicare Part B Medicare Part B [id number] Unknown Unknown Family history Father Diagnosis Age At Onset Stroke Unknown Mother Diagnosis Age At Onset Stroke Unknown Diabetes mellitus Type 2 Unknown Social History Social History Element Codes Description Effective Dates Tobacco history SNOMED CT: 631603383 Currently uses smokeless tobacco Chews 05/04/2016 Marital status Unknown 01/26/2015 Number of children Unknown 3 01/26/2015 Employment Unknown Retired 01/26/[address]: 588343858 Never drinks alcohol quit in July 2014 [...] Start Date Stop Date Status Fill Instructions Lasix 20 mg tablet RxNorm: 608420 1 Tablet(s) PO QDAY PRN 03/22/2017 No Stop Date Active daily x 5 days then as needed potassium chloride ER 10 mEq capsule,extended release RxNorm: 799648 1 Capsule(s) PO QDAY PRN 03/22/2017 No Stop Date Active daily x 5 days then as needed with lasix indomethacin 25 mg capsule RxNorm: 968779 1 Capsule(s) PO TID PRN 03/22/2017 03/22/2017 Inactive Levaquin 500 mg tablet RxNorm: 374379 1 Tablet(s) PO daily 03/22/2017 03/31/2017 Inactive oxycodone 20 mg tablet RxNorm: 7859902 1/2 Tablet(s) PO Q6 as needed 03/08/2017 04/06/2017 Active bisoprolol 5 mg-hydrochlorothiazide 6.25 mg tablet RxNorm: 599124 TAKE ONE TABLET BY MOUTH DAILY 02/14/2017 05/14/2017 Active oxycodone 20 mg tablet RxNorm: 2430295 1/2 Tablet(s) PO Q6 as needed 02/08/2017 03/07/2017 Inactive oxycodone 20 mg tablet RxNorm: 4029538 1/2 Tablet(s) PO Q6 as needed 01/08/2017 02/06/2017 Inactive levothyroxine 175 mcg tablet RxNorm: 634631 1 Tablet(s) PO daily 12/06/2016 06/03/2017 Active [SAVINGS FOR NON-COVERED DRUGS -- BIN:[id number], PCN: ASPROD1, Group: XXXXX, ID# [id number], Questions: . THIS IS NOT INSURANCE.] oxycodone 20 mg tablet RxNorm: 6037619 1/2 Tablet(s) PO Q6 as needed 12/04/2016 01/02/2017 Inactive oxycodone 20 mg tablet RxNorm: 0942887 1/2 Tablet(s) PO Q6 as needed 11/09/2016 12/03/2016 Inactive bisoprolol 5 mg-hydrochlorothiazide 6.25 mg tablet RxNorm: 666898 TAKE ONE TABLET BY MOUTH DAILY 11/08/2016 02/05/2017 Inactive oxycodone 20 mg tablet RxNorm: 3361237 1/2 Tablet(s) PO Q6 as needed 10/05/2016 11/03/2016 Inactive oxycodone 20 mg tablet RxNorm: 9589924 1/2 Tablet(s) PO Q6 as needed 09/06/2016 10/04/2016 Inactive oxycodone 20 mg tablet RxNorm: 0172440 1/2 Tablet(s) PO Q6 as needed 08/07/2016 09/05/2016 Inactive oxycodone 20 mg tablet RxNorm: 3625813 1/2 Tablet(s) PO Q6 as needed 07/04/2016 08/06/2016 Inactive oxycodone 20 mg tablet RxNorm: 9392069 1/2 Tablet(s) PO Q6 as needed 05/29/2016 07/03/2016 Inactive levothyroxine 150 mcg tablet RxNorm: 869539 1 Tablet(s) PO daily 04/10/2016 04/09/2016 Inactive [SAVINGS FOR NON-COVERED DRUGS -- BIN:182241, PCN: ASPROD1, Group: XXXXX, ID# XXXXXXX, Questions: . THIS IS NOT INSURANCE.] oxycodone 20 mg tablet RxNorm: 6924587 1/2 Tablet(s) PO Q6 as needed 04/10/2016 05/28/2016 Inactive levothyroxine 150 mcg tablet RxNorm: 035683 1 Tablet(s) PO daily 04/10/2016 10/06/2016 Inactive [SAVINGS FOR NON-COVERED DRUGS -- BIN:[id number], PCN: ASPROD1, Group: XXXXX, ID# XXXXXXX, Questions: . THIS IS NOT INSURANCE.] bisoprolol 5 mg-hydrochlorothiazide 6.25 mg tablet RxNorm: 113389 1 Tablet(s) PO daily 02/16/2016 05/15/2016 Inactive oxycodone 20 mg tablet RxNorm: 6965304 1/2 Tablet(s) PO Q6 as needed 02/16/2016 04/09/2016 Inactive oxycodone 20 mg tablet RxNorm: 5557597 1/2 Tablet(s) PO Q6 as needed 01/04/2016 02/15/2016 Inactive bisoprolol 5 mg-hydrochlorothiazide 6.25 mg tablet RxNorm: 455001 1 Tablet(s) PO daily 11/19/2015 01/17/2016 Inactive bisoprolol 5 mg-hydrochlorothiazide 6.25 mg tablet RxNorm: 825653 1 Tablet(s) PO daily 11/04/2015 11/18/2015 Inactive oxycodone 20 mg tablet RxNorm: 2238207 1/2 Tablet(s) PO Q6 as needed 10/27/2015 01/03/2016 Inactive levothyroxine 150 mcg tablet RxNorm: 483844 1 Tablet(s) PO daily 08/26/2015 02/21/2016 Inactive [SAVINGS FOR NON-COVERED DRUGS -- BIN:[id number], PCN: ASPROD1, Group: XXXXX, ID# XXXXXXX, Questions: . THIS IS NOT INSURANCE.] bisoprolol 5 mg-hydrochlorothiazide 6.25 mg tablet RxNorm: 665717 1 Tablet(s) PO daily 08/26/2015 10/24/2015 Inactive oxycodone 10 mg tablet RxNorm: 6933624 1 Tablet(s) PO Q6 as needed 05/06/2015 10/26/2015 Inactive levothyroxine 150 mcg tablet RxNorm: 984942 1 Tablet(s) PO daily 02/05/2015 08/03/2015 Inactive [SAVINGS FOR NON-COVERED DRUGS -- BIN:[id number], PCN: ASPROD1, Group: XXXXX, ID# [id number], Questions: . THIS IS NOT INSURANCE.] Vitamin D2 50,000 unit capsule RxNorm: 349059 1 Capsule(s) PO weekly 02/05/2015 05/05/2015 Inactive [SAVINGS FOR NON-COVERED DRUGS -- BIN:067787, PCN: ASPROD1, Group: XXXXX, ID# XXXXXXX, Questions: . THIS IS NOT INSURANCE.] Vitamin D2 50,000 unit capsule RxNorm: 403588 1 Capsule(s) PO weekly 02/05/2015 02/04/2015 Inactive bisoprolol 5 mg-hydrochlorothiazide 6.25 mg tablet RxNorm: 432760 1 Tablet(s) PO daily 01/26/2015 02/24/2015 Inactive levothyroxine 200 mcg tablet RxNorm: 671449 1 Tablet(s) PO daily 01/26/2015 01/25/2015 Inactive levothyroxine 200 mcg tablet RxNorm: 900249 1 Tablet(s) PO every other day 01/26/2015 02/04/2015 Inactive [SAVINGS FOR NON-COVERED DRUGS -- BIN:861248, PCN: ASPROD1, Group: XXXXX, ID# XXXXXXX, Questions: . THIS IS NOT INSURANCE.] aspirin 325 mg tablet RxNorm: 613937 1 Tablet(s) PO daily No Start Date 05/03/2016 Inactive levothyroxine 75 mcg tablet RxNorm: 649097 1 Tablet(s) PO every other day No Start Date 02/04/2015 Inactive takes qod with 200mcg oxycodone 10 mg tablet RxNorm: 8784195 1 Tablet(s) PO Q6 as needed No [...] 27.9 pg 03/22/2017 Cbc With Differential Ord2 Greenlee% 8.3 % 03/22/2017 Cbc With Differential Ord2 [...] 1.35 K/ul 03/22/2017 Cbc With Differential Ord2 Greenlee ABS# 1.4 K/ul 03/22/2017 Cbc With Differential Ord2 Eos ABS# 0.2 K/ul 03/22/2017 Cbc With Differential Ord2 Baso ABS# 0.0 K/ul 03/22/2017 Comp Metabolic Vct015 NA 134 mEq/L 03/22/2017 Comp Metabolic Krf235 K 4.5 mEq/L 03/22/2017 Comp Metabolic Ahl468 CL 93 mEq/L 03/22/2017 Comp Metabolic Krv794 CO2 31.0 mEq/L 03/22/2017 Comp Metabolic Pnh066 ANION GAP 15 03/22/2017 Comp Metabolic Pgv177 GLUCOSE 198 mg/dL 03/22/2017 Comp Metabolic Ygm389 Creat 1.5 mg/dL 03/22/2017 Comp Metabolic Qgt909 eGFR 50 ml/min/1.73m2 03/22/2017 Comp Metabolic Usw729 BUN 32 mg/dL 03/22/2017 Comp Metabolic Dfr553 B/C Ratio 21.6 Ratio 03/22/2017 Comp Metabolic Ins770 CALCIUM 8.4 mg/dL 03/22/2017 Comp Metabolic Vvc948 ALK PHOS 245 U/L 03/22/2017 Comp Metabolic Umg685 AST(SGOT) 18 U/L 03/22/2017 Comp Metabolic Ezr567 ALT(SGPT) 17 U/L 03/22/2017 Comp Metabolic Cjd636 BILI T 0.8 mg/dL 03/22/2017 Comp Metabolic Xcs867 ALBUMIN 2.9 g/dL 03/22/2017 Comp Metabolic Odj432 TPRO 6.3 g/dL 03/22/2017 Comp Metabolic Ndj145 GLOB 3.4 g/dL 03/22/2017 Comp Metabolic Oqb700 A/G Ratio 0.8 Ratio 03/22/2017 Comp Metabolic Gcj893 Osmo 281 mOsmo 03/22/2017 Lipase Vot508 LIPASE 12 U/L 03/22/2017 Comp Metabolic Ftk724 NA 142 mEq/L 03/09/2017 Comp Metabolic Rti193 K 4.8 mEq/L 03/09/2017 Comp Metabolic Fiv967 CL 103 mEq/L 03/09/2017 Comp Metabolic Cnc354 CO2 30.0 mEq/L 03/09/2017 Comp Metabolic Ami167 ANION GAP 14 03/09/2017 Comp Metabolic Ncb439 GLUCOSE 152 mg/dL 03/09/2017 Comp Metabolic Hsy408 Creat 1.3 mg/dL 03/09/2017 Comp Metabolic Hyn800 eGFR 56 ml/min/1.73m2 03/09/2017 Comp Metabolic Bmx076 BUN 23 mg/dL 03/09/2017 Comp Metabolic Kri878 B/C Ratio 17.3 Ratio 03/09/2017 Comp Metabolic Pnq053 CALCIUM 8.5 mg/dL 03/09/2017 Comp Metabolic Gop496 ALK PHOS 97 U/L 03/09/2017 Comp Metabolic Tse090 AST(SGOT) 10 U/L 03/09/2017 Comp Metabolic Ycc264 ALT(SGPT) 6 U/L 03/09/2017 Comp Metabolic Siu641 BILI T 0.4 mg/dL 03/09/2017 Comp Metabolic Jxa594 ALBUMIN 3.4 g/dL 03/09/2017 Comp Metabolic Ldv669 TPRO 6.2 g/dL 03/09/2017 Comp Metabolic Jhr842 GLOB 2.8 g/dL 03/09/2017 Comp Metabolic Kow879 A/G Ratio 1.2 Ratio 03/09/2017 Comp Metabolic Bti527 Osmo 290 mOsmo 03/09/2017 Free T4 Yhc269 FREE T4 0.86 ng/dL 03/08/2017 Cbc With [...] 28.2 pg 03/08/2017 Cbc With Differential Ord2 Greenlee% 8.7 % 03/08/2017 Cbc With Differential Ord2 [...] 1.63 K/ul 03/08/2017 Cbc With Differential Ord2 Greenlee ABS# 0.9 K/ul 03/08/2017 Cbc With Differential Ord2 Eos ABS# 0.5 K/ul 03/08/2017 Cbc With Differential Ord2 Baso ABS# 0.0 K/ul 03/08/2017 Tsh Ord6 hTSH II 4.52 uIU/mL 03/08/2017 %Hba1C Wlw238 % HbA1c 73006- 6 8.5 % 03/08/2017 %Hba1C Vhf353 Gluc Ave 197 mg/dL 03/08/2017 %Hba1C Gzg168 % HbA1c 60914- 6 9.8 % 12/04/2016 %Hba1C Uns014 Gluc Ave 235 mg/dL 12/04/2016 Tsh Ord6 hTSH II 10.65 uIU/mL 11/30/2016 Comp Metabolic Lsa292 NA 134 mEq/L 11/30/2016 Comp Metabolic Epw958 K 5.0 mEq/L 11/30/2016 Comp Metabolic Nee838 CL 95 mEq/L 11/30/2016 Comp Metabolic Exd865 CO2 34.0 mEq/L 11/30/2016 Comp Metabolic Osz165 ANION GAP 10 11/30/2016 Comp Metabolic Zcx331 GLUCOSE 226 mg/dL 11/30/2016 Comp Metabolic Wse397 Creat 1.3 mg/dL 11/30/2016 Comp Metabolic Tou498 eGFR 56 ml/min/1.73m2 11/30/2016 Comp Metabolic Fta067 BUN 21 mg/dL 11/30/2016 Comp Metabolic Znz981 B/C Ratio 15.7 Ratio 11/30/2016 Comp Metabolic Zuv066 CALCIUM 8.9 mg/dL 11/30/2016 Comp Metabolic Zvs673 ALK PHOS 112 U/L 11/30/2016 Comp Metabolic Hje297 AST(SGOT) 9 U/L 11/30/2016 Comp Metabolic Kfe481 ALT(SGPT) 7 U/L 11/30/2016 Comp Metabolic Vus842 BILI T 0.6 mg/dL 11/30/2016 Comp Metabolic Ngx597 ALBUMIN 3.6 g/dL 11/30/2016 Comp Metabolic Qyw294 TPRO 6.4 g/dL 11/30/2016 Comp Metabolic Rqa944 GLOB 2.9 g/dL 11/30/2016 Comp Metabolic Qbg269 A/G Ratio 1.2 Ratio 11/30/2016 Comp Metabolic Dej455 Osmo 278 mOsmo 11/30/2016 Lipid Ord30 CHOL [...] 13.0 % 11/30/2016 Cbc With Differential Ord2 Greenlee% 7.9 % 11/30/2016 Cbc With Differential Ord2 [...] 1.34 K/ul 11/30/2016 Cbc With Differential Ord2 Greenlee ABS# 0.8 K/ul 11/30/2016 Cbc With Differential Ord2 Eos ABS# 0.3 K/ul 11/30/2016 Cbc With Differential Ord2 Baso ABS# 0.0 K/ul 11/30/2016 Free T4 Gew950 FREE T4 0.89 ng/dL 11/30/2016 Review of [...] Codes Date URINALYSIS NONAUTO W/O SCOPE CPT-4: 99587Rrwubfb 03/22/2017 URINALYSIS NONAUTO W/O SCOPE CPT-4: 60282Rgxfarm 03/21/2017 PPPS, SUBSEQ VISIT CPT-4: N5990Jotwzpj 11/30/2016 PNEUMOCOCCAL VACC 13 JAVIER IM Formatting Model/CDA Sections, Assigned to SNOMED CT: 41128383 CPT-4: 65606Rzcaxik 11/30/2016 ADMIN PNEUMOCOCCAL VACCINE SNOMED CT: 60096876 CPT-4: T4104Jnylsxp 11/30/2016 Vital Signs Date Vital 04/02/2017 Blood Pressure 1: 118/62 Code: 8480-6 BMI: 38.2 Code: 14697-2 Heart Rate 1: 53 bpm Height: 5'10" SpO2: 93% Weight: 266 lbs 03/26/2017 Blood Pressure 1: 114/62 Code: 8480-6 BMI: 38.3 Code: 52742-9 Height: 5'10" Weight: 267 lbs 03/22/2017 Blood Pressure 1: 122/64 Code: 8480-6 BMI: 40.0 Code: 05755-0 Heart Rate 1: 52 bpm Height: 5'10" SpO2: 94% Weight: 279 lbs 03/08/2017 Blood Pressure 1: 124/70 Code: 8480-6 BMI: 39.4 Code: 94449-4 Heart Rate 1: 51 bpm Height: 5'10" SpO2: 94% Weight: 274 lbs 8 oz 12/06/2016 Blood Pressure 1: 126/62 Code: 8480-6 BMI: 40.3 Code: 40026-6 Heart Rate 1: 50 bpm Height: 5'10" SpO2: 94% Weight: 281 lbs 11/30/2016 Blood Pressure 1: 112/62 Code: 8480-6 BMI: 40.3 Code: 16890-1 Heart Rate 1: 52 bpm Height: 5'10" SpO2: 93% Waist Measure (cm): 135 cm Weight: 281 lbs 11/28/2016 Blood Pressure 1: 132/72 Code: 8480-6 BMI: 40.3 Code: 51641-1 Heart Rate 1: 50 bpm Height: 5'10" Weight: 281 lbs 05/04/2016 Blood Pressure 1: 128/78 Code: 8480-6 BMI: 38.5 Code: 43515-4 Heart Rate 1: 74 bpm Height: 5'10" SpO2: 98% Weight: 268 lbs 8 oz 11/04/2015 Blood Pressure 1: 136/60 Code: 8480-6 BMI: 38.0 Code: 98196-7 Heart Rate 1: 55 bpm Height: 5'10" SpO2: 94% Weight: 265 lbs 07/30/2015 Blood Pressure 1: 128/74 Code: 8480-6 BMI: 38.0 Code: 06125-1 Heart Rate 1: 47 bpm Height: 5'10" SpO2: 97% Weight: 265 lbs 01/26/2015 Blood Pressure 1: 122/64 Code: 8480-6 BMI: 34.0 Code: 42148-4 Heart Rate 1: 68 bpm Height: 5'10" [...] data Encounters Encounter Performer Location Codes Date ([id number]) 13793 EST. PATIENT, LEVEL III Diagnosis: Cellulitis of left lower limb[ICD10: L03.116] Diagnosis: Localized edema[ICD10: R60.0] [facility] CPT-4: 64511 04/02/2017 ([id number]) Miscellaneous no charge Diagnosis: Localized edema[ICD10: R60.0] Diagnosis: Cellulitis of left lower limb[ICD10: L03.116] [facility] CPT-4: 20573 03/26/2017 ([id number]) 91553 EST. 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 PATIENT, LEVEL IV Diagnosis: Type 2 diabetes mellitus with hyperglycemia[ICD10: E11.65] Diagnosis: Other specified hypothyroidism[ICD10: E03.8] Diagnosis: Essential (primary) hypertension[ICD10: I10] [facility] CPT-4: 71505 03/08/2017 ([id number]) 24874 EST. PATIENT, LEVEL III Diagnosis: Type 2 diabetes mellitus with hyperglycemia[ICD10: E11.65] Diagnosis: Other specified hypothyroidism[ICD10: E03.8] [facility] MD, [facility] CPT-4: 87131 12/06/2016 ([id number]) 53352 EST. PATIENT, LEVEL IV Diagnosis: Essential (primary) hypertension[ICD10: I10] Diagnosis: Chronic kidney disease, stage 3 (moderate)[ICD10: N18.3] [facility], [facility] CPT-4: 31368 11/28/2016 ([id number]) 33811 EST. PATIENT, LEVEL IV Diagnosis: Essential (primary) hypertension[ICD10: I10] Diagnosis: Chronic pain syndrome[ICD10: G89.4] Diagnosis: Chronic kidney disease, stage 3 (moderate)[ICD10: N18.3] Diagnosis: Vitamin B12 deficiency anemia due to intrinsic factor deficiency[ICD10: D51.0] Diagnosis: Other specified hypothyroidism[ICD10: E03.8] [facility] Sanchez MD, [facility] CPT-4: 22971 05/04/2016 99511 EST. PATIENT, LEVEL III Diagnosis: Chronic pain syndrome[ICD10: G89.4] Diagnosis: Essential (primary) hypertension[ICD10: I10] Diagnosis: Other specified hypothyroidism[ICD10: E03.8] Kiki Sanchez MD, [facility] CPT-4: 78383 11/04/2015 [id number] EST. PATIENT, LEVEL III Diagnosis: Chronic pain syndrome[ICD10: G89.4] Diagnosis: Essential (primary) hypertension[ICD10: I10] Kiki Sanchez MD, [facility] CPT-4: 21877 07/30/2015 ([id number]) OFFICE/OUTPATIENT VISIT NEW Diagnosis: ESSENTIAL HYPERTENSION[ICD9: 401.9] Diagnosis: HYPOTHYROIDISM[ICD9: 244.9] Diagnosis: ANEMIA[ICD9: 285.9] Diagnosis: Vitamin B12 deficiency[ICD9: 266.2] Diagnosis: CHRONIC PAIN SYNDROME[ICD9: 338.4] Diagnosis: Chronic renal insufficiency, stage III (moderate)[ICD9: 585.3] Diagnosis: GOUT[ICD9: 274.9] [facility] Sanchez MD, [facility] CPT-4: 18365 01/26/2015 Plan of Care Planned Activity Notes Codes Status Date Visit Plan: Qzfjpfpdcc-bayhcecye-ownqeek to finish abx-no further treatment indicated Edema-significantly improved-no longer weeping-continue unna boots twice weekly with home health 04/02/2017 Patient Education: Patient Medication Summary Completed 04/02/2017 Patient Education: Obesity Completed 04/02/2017 Visit Plan: Cellulitis-left leg-continue levaquin Edema-increase lasix/potassium- consult [facility] for unna boots/dressing changes 03/26/2017 [facility] [phone] [phone] (15 min) Moderate 03/26/2017 Patient Education: [...] aleve 03/22/2017 Appointment: Sarah Hernand[facility]el[phone] [place] (15 min) Moderate 03/22/2017 Patient [...] control. 03/08/2017 Appointment: Sarah Hernandes WPtel[phone] (30 min) Complex 03/08/2017 Patient Education: [...] care surrogate. 11/30/2016 [facility]ment: [facility] [phone] [phone] [facility] - Annual Wellness Visit 11/30/2016 [...] in fluids. 11/28/2016 [facility] [phone] [phone] (15 min) Moderate 11/28/2016 Patient Education: [...] AND POTASSIUM TO TWICE DAILY [facility] UNNA [facility]OT[facility] -[facility] . Cellulitis-left leg-continue levaquin Edema-increase lasix/potassium-consult [facility] for unna boots/dressing changes WRAP [...] YEAR SHINGLES VACCINATION TO BE ADMINISTERED AT [facility] REC[facility] OBTAINING MEDICAL POWER OF STONE PRODUCT FABRICATOR AND LIVING WILL PATIENT DOES NOT HAVE [...] YEAR SHINGLES VACCINATION TO BE ADMINISTERED AT [facility] REC[facility] OBTAINING MEDICAL POWER OF STONE PRODUCT FABRICATOR AND LIVING WILL PATIENT DOES NOT HAVE [...] YEAR SHINGLES VACCINATION TO BE ADMINISTERED AT [facility] OBTAINING MEDICAL POWER OF STONE PRODUCT FABRICATOR AND LIVING WILL PATIENT DOES NOT HAVE [...] labs - may need b12 shots. . Whqdthtsdq-onmtbuexr-ekeesqr to finish abx-no further treatment indicated Edema-significantly [...]
--- OUTSIDE RECORDS SUMMARY | 2019-03-24 08:20 | XMS REPORT | CCD ---
Author Author Dorene Sanchez Organization [facility] Address [address] [place] [address] Phone Care Team Providers Care Word Processing Operator Name Role Phone PP Unavailable CCM Unavailable Summary Purpose Interface Exchange Insurance Providers Payer name Policy type / Coverage type Covered alliance party ID Effective Begin Date Effective End Date WPS Medicare Part B Medicare Part B [id number] Unknown Unknown Family history Father Diagnosis Age At Onset Stroke Unknown Mother Diagnosis Age At Onset Stroke Unknown Diabetes mellitus Type 2 Unknown Social History Social History Element Codes Description Effective Dates Tobacco history SNOMED CT: 398874585 Currently uses smokeless tobacco Chews 05/04/2016 Marital status Unknown 01/26/2015 Number of children Unknown 3 01/26/2015 Employment Unknown Retired 01/26/[address]: 903460117 Never drinks alcohol quit in July 2014 [...] Fill Instructions Lasix 20 mg tablet RxNorm: 999212 1 Tablet(s) PO QDAY PRN 03/22/2017 No Stop Date Active daily x 5 days then as needed Levaquin 500 mg tablet RxNorm: 629087 1 Tablet(s) PO daily 03/22/2017 03/31/2017 Active potassium chloride ER 10 mEq capsule,extended release RxNorm: 614487 1 Capsule(s) PO QDAY PRN 03/22/2017 No Stop Date Active daily x 5 days then as needed with lasix indomethacin 25 mg capsule RxNorm: 104238 1 Capsule(s) PO TID PRN 03/22/2017 03/22/2017 Inactive oxycodone 20 mg tablet RxNorm: 9854805 1/2 Tablet(s) PO Q6 as needed 03/08/2017 04/06/2017 Active bisoprolol 5 mg-hydrochlorothiazide 6.25 mg tablet RxNorm: 815391 TAKE ONE TABLET BY MOUTH DAILY 02/14/2017 05/14/2017 Active oxycodone 20 mg tablet RxNorm: 0108250 1/2 Tablet(s) PO Q6 as needed 02/08/2017 03/07/2017 Inactive oxycodone 20 mg tablet RxNorm: 3315043 1/2 Tablet(s) PO Q6 as needed 01/08/2017 02/06/2017 Inactive levothyroxine 175 mcg tablet RxNorm: 717391 1 Tablet(s) PO daily 12/06/2016 06/03/2017 Active [SAVINGS FOR NON-COVERED DRUGS -- BIN:[id number], PCN: ASPROD1, Group: XXXXX, ID# [id number], Questions: . THIS IS NOT INSURANCE.] oxycodone 20 mg tablet RxNorm: 7192144 1/2 Tablet(s) PO Q6 as needed 12/04/2016 01/02/2017 Inactive oxycodone 20 mg tablet RxNorm: 4998553 1/2 Tablet(s) PO Q6 as needed 11/09/2016 12/03/2016 Inactive bisoprolol 5 mg-hydrochlorothiazide 6.25 mg tablet RxNorm: 671470 TAKE ONE TABLET BY MOUTH DAILY 11/08/2016 02/05/2017 Inactive oxycodone 20 mg tablet RxNorm: 6441727 1/2 Tablet(s) PO Q6 as needed 10/05/2016 11/03/2016 Inactive oxycodone 20 mg tablet RxNorm: 4502875 1/2 Tablet(s) PO Q6 as needed 09/06/2016 10/04/2016 Inactive oxycodone 20 mg tablet RxNorm: 8718650 1/2 Tablet(s) PO Q6 as needed 08/07/2016 09/05/2016 Inactive oxycodone 20 mg tablet RxNorm: 5784045 1/2 Tablet(s) PO Q6 as needed 07/04/2016 08/06/2016 Inactive oxycodone 20 mg tablet RxNorm: 2947437 1/2 Tablet(s) PO Q6 as needed 05/29/2016 07/03/2016 Inactive levothyroxine 150 mcg tablet RxNorm: 009852 1 Tablet(s) PO daily 04/10/2016 04/09/2016 Inactive [SAVINGS FOR NON-COVERED DRUGS -- BIN:[id number], PCN: ASPROD1, Group: XXXXX, ID# XXXXXXX, Questions: . THIS IS NOT INSURANCE.] oxycodone 20 mg tablet RxNorm: 7585001 1/2 Tablet(s) PO Q6 as needed 04/10/2016 05/28/2016 Inactive levothyroxine 150 mcg tablet RxNorm: 048257 1 Tablet(s) PO daily 04/10/2016 10/06/2016 Inactive [SAVINGS FOR NON-COVERED DRUGS -- BIN:136105, PCN: ASPROD1, Group: XXXXX, ID# [id number], Questions: . THIS IS NOT INSURANCE.] bisoprolol 5 mg-hydrochlorothiazide 6.25 mg tablet RxNorm: 159136 1 Tablet(s) PO daily 02/16/2016 05/15/2016 Inactive oxycodone 20 mg tablet RxNorm: 3655035 1/2 Tablet(s) PO Q6 as needed 02/16/2016 04/09/2016 Inactive oxycodone 20 mg tablet RxNorm: 0146603 1/2 Tablet(s) PO Q6 as needed 01/04/2016 02/15/2016 Inactive bisoprolol 5 mg-hydrochlorothiazide 6.25 mg tablet RxNorm: 311760 1 Tablet(s) PO daily 11/19/2015 01/17/2016 Inactive bisoprolol 5 mg-hydrochlorothiazide 6.25 mg tablet RxNorm: 113746 1 Tablet(s) PO daily 11/04/2015 11/18/2015 Inactive oxycodone 20 mg tablet RxNorm: 1776055 1/2 Tablet(s) PO Q6 as needed 10/27/2015 01/03/2016 Inactive levothyroxine 150 mcg tablet RxNorm: 478272 1 Tablet(s) PO daily 08/26/2015 02/21/2016 Inactive [SAVINGS FOR NON-COVERED DRUGS -- BIN:[id number], PCN: ASPROD1, Group: XXXXX, ID# XXXXXXX, Questions: . THIS IS NOT INSURANCE.] bisoprolol 5 mg-hydrochlorothiazide 6.25 mg tablet RxNorm: 266171 1 Tablet(s) PO daily 08/26/2015 10/24/2015 Inactive oxycodone 10 mg tablet RxNorm: 7725539 1 Tablet(s) PO Q6 as needed 05/06/2015 10/26/2015 Inactive levothyroxine 150 mcg tablet RxNorm: 506477 1 Tablet(s) PO daily 02/05/2015 08/03/2015 Inactive [SAVINGS FOR NON-COVERED DRUGS -- BIN:694841, PCN: ASPROD1, Group: XXXXX, ID# XXXXXXX, Questions: . THIS IS NOT INSURANCE.] Vitamin D2 50,000 unit capsule RxNorm: 347233 1 Capsule(s) PO weekly 02/05/2015 05/05/2015 Inactive [SAVINGS FOR NON-COVERED DRUGS -- BIN:408735, PCN: ASPROD1, Group: XXXXX, ID# XXXXXXX, Questions: . THIS IS NOT INSURANCE.] Vitamin D2 50,000 unit capsule RxNorm: 707554 1 Capsule(s) PO weekly 02/05/2015 02/04/2015 Inactive bisoprolol 5 mg-hydrochlorothiazide 6.25 mg tablet RxNorm: 350494 1 Tablet(s) PO daily 01/26/2015 02/24/2015 Inactive levothyroxine 200 mcg tablet RxNorm: 950285 1 Tablet(s) PO daily 01/26/2015 01/25/2015 Inactive levothyroxine 200 mcg tablet RxNorm: 753911 1 Tablet(s) PO every other day 01/26/2015 02/04/2015 Inactive [SAVINGS FOR NON-COVERED DRUGS -- BIN:218429, PCN: ASPROD1, Group: XXXXX, ID# XXXXXXX, Questions: . THIS IS NOT INSURANCE.] aspirin 325 mg tablet RxNorm: 016482 1 Tablet(s) PO daily No Start Date 05/03/2016 Inactive levothyroxine 75 mcg tablet RxNorm: 905811 1 Tablet(s) PO every other day No Start Date 02/04/2015 Inactive takes qod with 200mcg oxycodone 10 mg tablet RxNorm: 9976402 1 Tablet(s) PO Q6 as needed No Start Date 05/05/2015 Inactive indomethacin oral RxNorm: 5781 oral No Start Date 03/21/2017 Inactive Medication Administered No Medication Administered data Immunizations Vaccine Codes Date Status Pneumococcal (Adult) CVX: 133 11/30/2016 completed Assessments Condition Codes Effective Dates Localized edema ICD-10: R60.0 ICD-9: 782.3 03/26/2017 Cellulitis of left lower limb ICD-10: L03.116 ICD-9: 682.6 03/26/2017 Chronic gout due to renal impairment, left [...] Reason For Visit Effective Dates Notes cellulitis 03/26/2017 improving cellulitis 03/22/2017 diabetes mellitus [...] 27.9 pg 03/22/2017 Cbc With Differential Ord2 [place]% 8.3 % 03/22/2017 Cbc With Differential Ord2 [...] 1.35 K/ul 03/22/2017 Cbc With Differential Ord2 [place] ABS# 1.4 K/ul 03/22/2017 Cbc With Differential Ord2 Eos ABS# 0.2 K/ul 03/22/2017 Cbc With Differential Ord2 Baso ABS# 0.0 K/ul 03/22/2017 Comp Metabolic Oxw326 NA 134 mEq/L 03/22/2017 Comp Metabolic Ttc125 K 4.5 mEq/L 03/22/2017 Comp Metabolic Kjg005 CL 93 mEq/L 03/22/2017 Comp Metabolic Nki816 CO2 31.0 mEq/L 03/22/2017 Comp Metabolic Rqo010 ANION GAP 15 03/22/2017 Comp Metabolic Tkc485 GLUCOSE 198 mg/dL 03/22/2017 Comp Metabolic Ski032 Creat 1.5 mg/dL 03/22/2017 Comp Metabolic Ijt642 eGFR 50 ml/min/1.73m2 03/22/2017 Comp Metabolic Qxw618 BUN 32 mg/dL 03/22/2017 Comp Metabolic Zhh436 B/C Ratio 21.6 Ratio 03/22/2017 Comp Metabolic Tli999 CALCIUM 8.4 mg/dL 03/22/2017 Comp Metabolic Owi855 ALK PHOS 245 U/L 03/22/2017 Comp Metabolic Abj146 AST(SGOT) 18 U/L 03/22/2017 Comp Metabolic Dez802 ALT(SGPT) 17 U/L 03/22/2017 Comp Metabolic Zan177 BILI T 0.8 mg/dL 03/22/2017 Comp Metabolic Mbq833 ALBUMIN 2.9 g/dL 03/22/2017 Comp Metabolic Kzr489 TPRO 6.3 g/dL 03/22/2017 Comp Metabolic Apb760 GLOB 3.4 g/dL 03/22/2017 Comp Metabolic Thn733 A/G Ratio 0.8 Ratio 03/22/2017 Comp Metabolic Zrs805 Osmo 281 mOsmo 03/22/2017 Lipase Pyy640 LIPASE 12 U/L 03/22/2017 Comp Metabolic Bvp502 NA 142 mEq/L 03/09/2017 Comp Metabolic Xmq442 K 4.8 mEq/L 03/09/2017 Comp Metabolic Xql682 CL 103 mEq/L 03/09/2017 Comp Metabolic Nkd786 CO2 30.0 mEq/L 03/09/2017 Comp Metabolic Oya457 ANION GAP 14 03/09/2017 Comp Metabolic Mqx332 GLUCOSE 152 mg/dL 03/09/2017 Comp Metabolic Hpo274 Creat 1.3 mg/dL 03/09/2017 Comp Metabolic Hqv854 eGFR 56 ml/min/1.73m2 03/09/2017 Comp Metabolic Idg504 BUN 23 mg/dL 03/09/2017 Comp Metabolic Fpq854 B/C Ratio 17.3 Ratio 03/09/2017 Comp Metabolic Byo347 CALCIUM 8.5 mg/dL 03/09/2017 Comp Metabolic Lhb074 ALK PHOS 97 U/L 03/09/2017 Comp Metabolic Xib085 AST(SGOT) 10 U/L 03/09/2017 Comp Metabolic Tbz632 ALT(SGPT) 6 U/L 03/09/2017 Comp Metabolic Qtt462 BILI T 0.4 mg/dL 03/09/2017 Comp Metabolic Wtz354 ALBUMIN 3.4 g/dL 03/09/2017 Comp Metabolic Itj622 TPRO 6.2 g/dL 03/09/2017 Comp Metabolic Snx993 GLOB 2.8 g/dL 03/09/2017 Comp Metabolic Agq408 A/G Ratio 1.2 Ratio 03/09/2017 Comp Metabolic Vzt370 Osmo 290 mOsmo 03/09/2017 Free T4 Tua637 FREE T4 0.86 ng/dL 03/08/2017 Cbc With [...] 28.2 pg 03/08/2017 Cbc With Differential Ord2 [place]% 8.7 % 03/08/2017 Cbc With Differential Ord2 [...] 1.63 K/ul 03/08/2017 Cbc With Differential Ord2 [place] ABS# 0.9 K/ul 03/08/2017 Cbc With Differential Ord2 Eos ABS# 0.5 K/ul 03/08/2017 Cbc With Differential Ord2 Baso ABS# 0.0 K/ul 03/08/2017 Tsh Ord6 hTSH II 4.52 uIU/mL 03/08/2017 %Hba1C Rjk861 % HbA1c 78448- 6 8.5 % 03/08/2017 %Hba1C Ivr905 Gluc Ave 197 mg/dL 03/08/2017 %Hba1C Uwk589 % HbA1c 32776- 6 9.8 % 12/04/2016 %Hba1C Tqg111 Gluc Ave 235 mg/dL 12/04/2016 Tsh Ord6 hTSH II 10.65 uIU/mL 11/30/2016 Comp Metabolic Bwn552 NA 134 mEq/L 11/30/2016 Comp Metabolic Xpq786 K 5.0 mEq/L 11/30/2016 Comp Metabolic Ybk309 CL 95 mEq/L 11/30/2016 Comp Metabolic Slv450 CO2 34.0 mEq/L 11/30/2016 Comp Metabolic Svf118 ANION GAP 10 11/30/2016 Comp Metabolic Kza519 GLUCOSE 226 mg/dL 11/30/2016 Comp Metabolic Dvx667 Creat 1.3 mg/dL 11/30/2016 Comp Metabolic Adc134 eGFR 56 ml/min/1.73m2 11/30/2016 Comp Metabolic Lwp002 BUN 21 mg/dL 11/30/2016 Comp Metabolic Ehu993 B/C Ratio 15.7 Ratio 11/30/2016 Comp Metabolic Nts926 CALCIUM 8.9 mg/dL 11/30/2016 Comp Metabolic Amu274 ALK PHOS 112 U/L 11/30/2016 Comp Metabolic Tjr481 AST(SGOT) 9 U/L 11/30/2016 Comp Metabolic Jon500 ALT(SGPT) 7 U/L 11/30/2016 Comp Metabolic Tsb657 BILI T 0.6 mg/dL 11/30/2016 Comp Metabolic Buv736 ALBUMIN 3.6 g/dL 11/30/2016 Comp Metabolic Lba068 TPRO 6.4 g/dL 11/30/2016 Comp Metabolic Lkz707 GLOB 2.9 g/dL 11/30/2016 Comp Metabolic Ygu414 A/G Ratio 1.2 Ratio 11/30/2016 Comp Metabolic Pdk676 Osmo 278 mOsmo 11/30/2016 Lipid Ord30 CHOL [...] 13.0 % 11/30/2016 Cbc With Differential Ord2 [place]% 7.9 % 11/30/2016 Cbc With Differential Ord2 [...] 1.34 K/ul 11/30/2016 Cbc With Differential Ord2 [place] ABS# 0.8 K/ul 11/30/2016 Cbc With Differential Ord2 Eos ABS# 0.3 K/ul 11/30/2016 Cbc With Differential Ord2 Baso ABS# 0.0 K/ul 11/30/2016 Free T4 Ygr009 FREE T4 0.89 ng/dL 11/30/2016 Review of Systems System Result Effective Dates Constitutional recent illness 03/26/2017 Constitutional No anorexia [...] Codes Date URINALYSIS NONAUTO W/O SCOPE CPT-4: 61861Vbkzfml 03/22/2017 URINALYSIS NONAUTO W/O SCOPE CPT-4: 95556Bltvhso 03/21/2017 PPPS, SUBSEQ VISIT CPT-4: B3242Tkykfds 11/30/2016 PNEUMOCOCCAL VACC 13 JAVIER IM Formatting Model/CDA Sections, Assigned to SNOMED CT: 76766798 CPT-4: 99242Iorstev 11/30/2016 ADMIN PNEUMOCOCCAL VACCINE SNOMED CT: 56755572 CPT-4: S8891Mlequtf 11/30/2016 Vital Signs Date Vital 03/26/2017 Blood Pressure 1: 114/62 Code: 8480-6 BMI: 38.3 Code: 12351-3 Height: 5'10" Weight: 267 lbs 03/22/2017 Blood Pressure 1: 122/64 Code: 8480-6 BMI: 40.0 Code: 96912-8 Heart Rate 1: 52 bpm Height: 5'10" SpO2: 94% Weight: 279 lbs 03/08/2017 Blood Pressure 1: 124/70 Code: 8480-6 BMI: 39.4 Code: 66941-2 Heart Rate 1: 51 bpm Height: 5'10" SpO2: 94% Weight: 274 lbs 8 oz 12/06/2016 Blood Pressure 1: 126/62 Code: 8480-6 BMI: 40.3 Code: 43413-2 Heart Rate 1: 50 bpm Height: 5'10" SpO2: 94% Weight: 281 lbs 11/30/2016 Blood Pressure 1: 112/62 Code: 8480-6 BMI: 40.3 Code: 04788-6 Heart Rate 1: 52 bpm Height: 5'10" SpO2: 93% Waist Measure (cm): 135 cm Weight: 281 lbs 11/28/2016 Blood Pressure 1: 132/72 Code: 8480-6 BMI: 40.3 Code: 75270-2 Heart Rate 1: 50 bpm Height: 5'10" Weight: 281 lbs 05/04/2016 Blood Pressure 1: 128/78 Code: 8480-6 BMI: 38.5 Code: 15045-1 Heart Rate 1: 74 bpm Height: 5'10" SpO2: 98% Weight: 268 lbs 8 oz 11/04/2015 Blood Pressure 1: 136/60 Code: 8480-6 BMI: 38.0 Code: 65908-0 Heart Rate 1: 55 bpm Height: 5'10" SpO2: 94% Weight: 265 lbs 07/30/2015 Blood Pressure 1: 128/74 Code: 8480-6 BMI: 38.0 Code: 76171-5 Heart Rate 1: 47 bpm Height: 5'10" SpO2: 97% Weight: 265 lbs 01/26/2015 Blood Pressure 1: 122/64 Code: 8480-6 BMI: 34.0 Code: 34881-4 Heart Rate 1: 68 bpm Height: 5'10" Weight: 237 lbs Functional Status No Functional Status data History of Present Illness Symptom Name Status Result Effective Date Notes cellulitis Quality acute 03/26/2017 None cellulitis Onset [...] data Encounters Encounter Performer Location Codes Date ([id number]) Miscellaneous no charge Diagnosis: Localized edema[ICD10: R60.0] Diagnosis: Cellulitis of left lower limb[ICD10: L03.116] Sarah Sanchez MD, [facility] CPT-4: 79552 03/26/2017 ([id number]) 82890 EST. 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 PATIENT, LEVEL IV Diagnosis: Type 2 diabetes mellitus with hyperglycemia[ICD10: E11.65] Diagnosis: Other specified hypothyroidism[ICD10: E03.8] Diagnosis: Essential (primary) hypertension[ICD10: I10] Sarah Sanchez MD, [facility] CPT-4: 17352 03/08/2017 ([id number]) 59897 EST. PATIENT, LEVEL III Diagnosis: Type 2 diabetes mellitus with hyperglycemia[ICD10: E11.65] Diagnosis: Other specified hypothyroidism[ICD10: E03.8] Sarah Sanchez MD, [facility] CPT-4: 37541 12/06/2016 [id number]) [id number] EST. PATIENT, LEVEL IV Diagnosis: Essential (primary) hypertension[ICD10: I10] Diagnosis: Chronic kidney disease, stage 3 (moderate)[ICD10: N18.3] Dorene Sanchez MD, [facility] CPT-4: 87225 11/28/2016 ([id number]) [id number] EST. PATIENT, LEVEL IV Diagnosis: Essential (primary) hypertension[ICD10: I10] Diagnosis: Chronic pain syndrome[ICD10: G89.4] Diagnosis: Chronic kidney disease, stage 3 (moderate)[ICD10: N18.3] Diagnosis: Vitamin B12 deficiency anemia due to intrinsic factor deficiency[ICD10: D51.0] Diagnosis: Other specified hypothyroidism[ICD10: E03.8] [facility] CPT-4: 53407 05/04/2016 [id number] EST. PATIENT, LEVEL III Diagnosis: Chronic pain syndrome[ICD10: G89.4] Diagnosis: Essential (primary) hypertension[ICD10: I10] Diagnosis: Other specified hypothyroidism[ICD10: E03.8] [facility] CPT-4: 78861 11/04/2015 [id number] EST. PATIENT, LEVEL III Diagnosis: Chronic pain syndrome[ICD10: G89.4] Diagnosis: Essential (primary) hypertension[ICD10: I10] [facility] CPT-4: 07842 07/30/2015 ([id number]) OFFICE/OUTPATIENT VISIT NEW Diagnosis: ESSENTIAL HYPERTENSION[ICD9: 401.9] Diagnosis: HYPOTHYROIDISM[ICD9: 244.9] Diagnosis: ANEMIA[ICD9: 285.9] Diagnosis: Vitamin B12 deficiency[ICD9: 266.2] Diagnosis: CHRONIC PAIN SYNDROME[ICD9: 338.4] Diagnosis: Chronic renal insufficiency, stage III (moderate)[ICD9: 585.3] Diagnosis: GOUT[ICD9: 274.9] [facility] CPT-4: 11665 01/26/2015 Plan of Care Planned Activity Notes Codes Status Date Visit Plan: Cellulitis-left leg-continue levaquin Edema-increase lasix/potassium- consult [facility] for unna boots/dressing changes 03/26/2017 Appointment: Sarah Hernandes WPtel: [address] [place], [place] [phone] (15 min) Moderate 03/26/2017 Patient Education: Patient [...] aleve 03/22/2017 Appointment: [phone] (15 min) Moderate 03/22/2017 Patient [...] [facility]Ptel[facility] [phone] [place] (30 min) Complex 03/08/2017 Patient Education: [...] surrogate. 11/30/2016 Appointment: [facility] Hern[facility] [phone] [phone] [facility] - Annual Wellness Visit 11/30/2016 Patient Education: [...] fluids. 11/28/2016 Appointment: [facility] [phone] [facility] (15 min) Moderate 11/28/2016 Patient Education: Patient [...] TO TWICE DAILY [facility] -[facility]OUND CARE . 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 . Chronic Pain Syndrome - pt has [...]
--- OUTSIDE RECORDS SUMMARY | 2019-03-24 08:21 | XMS REPORT | CCD ---
Author Author Dorene Sanchez Organization [facility] Address [address] [place] [address] Phone Care Team Providers Care Cotton Classer Aide Name Role Phone PP Unavailable CCM Unavailable Summary Purpose Interface Exchange Insurance Providers Payer name Policy type / Coverage type Covered democrat ID Effective Begin Date Effective End Date WPS Medicare Part B Medicare Part B [id number] Unknown Unknown Family history Father Diagnosis Age At Onset Stroke Unknown Mother Diagnosis Age At Onset Stroke Unknown Diabetes mellitus Type 2 Unknown Social History Social History Element Codes Description Effective Dates Tobacco history SNOMED CT: 267341852 Currently uses smokeless tobacco Chews 05/04/2016 Marital status Unknown 01/26/2015 Number of children Unknown 3 01/26/2015 Employment Unknown Retired 01/26/[address]: 215531850 Never drinks alcohol quit in July 2014 [...] Fill Instructions Lasix 20 mg tablet RxNorm: 795357 1 Tablet(s) PO QDAY PRN 03/22/2017 No Stop Date Active daily x 5 days then as needed Levaquin 500 mg tablet RxNorm: 793546 1 Tablet(s) PO daily 03/22/2017 03/31/2017 Active potassium chloride ER 10 mEq capsule,extended release RxNorm: 402250 1 Capsule(s) PO QDAY PRN 03/22/2017 No Stop Date Active daily x 5 days then as needed with lasix indomethacin 25 mg capsule RxNorm: 143765 1 Capsule(s) PO TID PRN 03/22/2017 03/22/2017 Inactive oxycodone 20 mg tablet RxNorm: 5217626 1/2 Tablet(s) PO Q6 as needed 03/08/2017 04/06/2017 Active bisoprolol 5 mg-hydrochlorothiazide 6.25 mg tablet RxNorm: 004352 TAKE ONE TABLET BY MOUTH DAILY 02/14/2017 05/14/2017 Active oxycodone 20 mg tablet RxNorm: 8085307 1/2 Tablet(s) PO Q6 as needed 02/08/2017 03/07/2017 Inactive oxycodone 20 mg tablet RxNorm: 8180201 1/2 Tablet(s) PO Q6 as needed 01/08/2017 02/06/2017 Inactive levothyroxine 175 mcg tablet RxNorm: 916319 1 Tablet(s) PO daily 12/06/2016 06/03/2017 Active [SAVINGS FOR NON-COVERED DRUGS -- BIN:060400, PCN: ASPROD1, Group: XXXXX, ID# [id number], Questions: . THIS IS NOT INSURANCE.] oxycodone 20 mg tablet RxNorm: 4158389 1/2 Tablet(s) PO Q6 as needed 12/04/2016 01/02/2017 Inactive oxycodone 20 mg tablet RxNorm: 5675868 1/2 Tablet(s) PO Q6 as needed 11/09/2016 12/03/2016 Inactive bisoprolol 5 mg-hydrochlorothiazide 6.25 mg tablet RxNorm: 386642 TAKE ONE TABLET BY MOUTH DAILY 11/08/2016 02/05/2017 Inactive oxycodone 20 mg tablet RxNorm: 1796175 1/2 Tablet(s) PO Q6 as needed 10/05/2016 11/03/2016 Inactive oxycodone 20 mg tablet RxNorm: 5273128 1/2 Tablet(s) PO Q6 as needed 09/06/2016 10/04/2016 Inactive oxycodone 20 mg tablet RxNorm: 2171816 1/2 Tablet(s) PO Q6 as needed 08/07/2016 09/05/2016 Inactive oxycodone 20 mg tablet RxNorm: 4950402 1/2 Tablet(s) PO Q6 as needed 07/04/2016 08/06/2016 Inactive oxycodone 20 mg tablet RxNorm: 7569275 1/2 Tablet(s) PO Q6 as needed 05/29/2016 07/03/2016 Inactive levothyroxine 150 mcg tablet RxNorm: 160258 1 Tablet(s) PO daily 04/10/2016 04/09/2016 Inactive [SAVINGS FOR NON-COVERED DRUGS -- BIN:034576, PCN: ASPROD1, Group: XXXXX, ID# XXXXXXX, Questions: . THIS IS NOT INSURANCE.] oxycodone 20 mg tablet RxNorm: 6282033 1/2 Tablet(s) PO Q6 as needed 04/10/2016 05/28/2016 Inactive levothyroxine 150 mcg tablet RxNorm: 640771 1 Tablet(s) PO daily 04/10/2016 10/06/2016 Inactive [SAVINGS FOR NON-COVERED DRUGS -- BIN:849955, PCN: ASPROD1, Group: XXXXX, ID# [id number], Questions: . THIS IS NOT INSURANCE.] bisoprolol 5 mg-hydrochlorothiazide 6.25 mg tablet RxNorm: 348114 1 Tablet(s) PO daily 02/16/2016 05/15/2016 Inactive oxycodone 20 mg tablet RxNorm: 8939889 1/2 Tablet(s) PO Q6 as needed 02/16/2016 04/09/2016 Inactive oxycodone 20 mg tablet RxNorm: 0087022 1/2 Tablet(s) PO Q6 as needed 01/04/2016 02/15/2016 Inactive bisoprolol 5 mg-hydrochlorothiazide 6.25 mg tablet RxNorm: 042440 1 Tablet(s) PO daily 11/19/2015 01/17/2016 Inactive bisoprolol 5 mg-hydrochlorothiazide 6.25 mg tablet RxNorm: 931147 1 Tablet(s) PO daily 11/04/2015 11/18/2015 Inactive oxycodone 20 mg tablet RxNorm: 4779208 1/2 Tablet(s) PO Q6 as needed 10/27/2015 01/03/2016 Inactive levothyroxine 150 mcg tablet RxNorm: 471442 1 Tablet(s) PO daily 08/26/2015 02/21/2016 Inactive [SAVINGS FOR NON-COVERED DRUGS -- BIN:487276, PCN: ASPROD1, Group: XXXXX, ID# XXXXXXX, Questions: . THIS IS NOT INSURANCE.] bisoprolol 5 mg-hydrochlorothiazide 6.25 mg tablet RxNorm: 718143 1 Tablet(s) PO daily 08/26/2015 10/24/2015 Inactive oxycodone 10 mg tablet RxNorm: 6211213 1 Tablet(s) PO Q6 as needed 05/06/2015 10/26/2015 Inactive levothyroxine 150 mcg tablet RxNorm: 626571 1 Tablet(s) PO daily 02/05/2015 08/03/2015 Inactive [SAVINGS FOR NON-COVERED DRUGS -- BIN:006338, PCN: ASPROD1, Group: XXXXX, ID# XXXXXXX, Questions: . THIS IS NOT INSURANCE.] Vitamin D2 50,000 unit capsule RxNorm: 677972 1 Capsule(s) PO weekly 02/05/2015 05/05/2015 Inactive [SAVINGS FOR NON-COVERED DRUGS -- BIN:467390, PCN: ASPROD1, Group: XXXXX, ID# XXXXXXX, Questions: . THIS IS NOT INSURANCE.] Vitamin D2 50,000 unit capsule RxNorm: 568950 1 Capsule(s) PO weekly 02/05/2015 02/04/2015 Inactive bisoprolol 5 mg-hydrochlorothiazide 6.25 mg tablet RxNorm: 942029 1 Tablet(s) PO daily 01/26/2015 02/24/2015 Inactive levothyroxine 200 mcg tablet RxNorm: 425078 1 Tablet(s) PO daily 01/26/2015 01/25/2015 Inactive levothyroxine 200 mcg tablet RxNorm: 257587 1 Tablet(s) PO every other day 01/26/2015 02/04/2015 Inactive [SAVINGS FOR NON-COVERED DRUGS -- BIN:576154, PCN: ASPROD1, Group: XXXXX, ID# XXXXXXX, Questions: . THIS IS NOT INSURANCE.] aspirin 325 mg tablet RxNorm: 598010 1 Tablet(s) PO daily No Start Date 05/03/2016 Inactive levothyroxine 75 mcg tablet RxNorm: 975235 1 Tablet(s) PO every other day No Start Date 02/04/2015 Inactive takes qod with 200mcg oxycodone 10 mg tablet RxNorm: 9688862 1 Tablet(s) PO Q6 as needed No [...] 8.0 % 03/22/2017 Cbc With Differential Ord2 Graves% 8.3 [...] Baso ABS# 0.0 K/ul 03/22/2017 Comp Metabolic Tbi268 NA 134 mEq/L 03/22/2017 Comp Metabolic Ass566 K 4.5 mEq/L 03/22/2017 Comp Metabolic Sjv243 CL 93 mEq/L 03/22/2017 Comp Metabolic Cwl170 CO2 31.0 mEq/L 03/22/2017 Comp Metabolic Lrc916 ANION GAP 15 03/22/2017 Comp Metabolic Eep297 GLUCOSE 198 mg/dL 03/22/2017 Comp Metabolic Tlo045 Creat 1.5 mg/dL 03/22/2017 Comp Metabolic Rdn866 eGFR 50 ml/min/1.73m2 03/22/2017 Comp Metabolic Bwu085 BUN 32 mg/dL 03/22/2017 Comp Metabolic Rhx020 B/C Ratio 21.6 Ratio 03/22/2017 Comp Metabolic Lih810 CALCIUM 8.4 mg/dL 03/22/2017 Comp Metabolic Swi994 ALK PHOS 245 U/L 03/22/2017 Comp Metabolic Snq247 AST(SGOT) 18 U/L 03/22/2017 Comp Metabolic Bjh619 ALT(SGPT) 17 U/L 03/22/2017 Comp Metabolic Nyj180 BILI T 0.8 mg/dL 03/22/2017 Comp Metabolic Qkk716 ALBUMIN 2.9 g/dL 03/22/2017 Comp Metabolic Vau237 TPRO 6.3 g/dL 03/22/2017 Comp Metabolic Ixg036 GLOB 3.4 g/dL 03/22/2017 Comp Metabolic Cpq235 A/G Ratio 0.8 Ratio 03/22/2017 Comp Metabolic Sfu152 Osmo 281 mOsmo 03/22/2017 Lipase Lpi188 LIPASE 12 U/L 03/22/2017 Comp Metabolic Tdz074 NA 142 mEq/L 03/09/2017 Comp Metabolic Bsm410 K 4.8 mEq/L 03/09/2017 Comp Metabolic Hvn045 CL 103 mEq/L 03/09/2017 Comp Metabolic Lca405 CO2 30.0 mEq/L 03/09/2017 Comp Metabolic Rsl990 ANION GAP 14 03/09/2017 Comp Metabolic Zou046 GLUCOSE 152 mg/dL 03/09/2017 Comp Metabolic Omo419 Creat 1.3 mg/dL 03/09/2017 Comp Metabolic Wtx110 eGFR 56 ml/min/1.73m2 03/09/2017 Comp Metabolic Aex432 BUN 23 mg/dL 03/09/2017 Comp Metabolic Mon930 B/C Ratio 17.3 Ratio 03/09/2017 Comp Metabolic Lkl219 CALCIUM 8.5 mg/dL 03/09/2017 Comp Metabolic Ywt392 ALK PHOS 97 U/L 03/09/2017 Comp Metabolic Ime475 AST(SGOT) 10 U/L 03/09/2017 Comp Metabolic Zuh567 ALT(SGPT) 6 U/L 03/09/2017 Comp Metabolic Adg829 BILI T 0.4 mg/dL 03/09/2017 Comp Metabolic Mqp382 ALBUMIN 3.4 g/dL 03/09/2017 Comp Metabolic Rhk686 TPRO 6.2 g/dL 03/09/2017 Comp Metabolic Ber476 GLOB 2.8 g/dL 03/09/2017 Comp Metabolic Pxr370 A/G Ratio 1.2 Ratio 03/09/2017 Comp Metabolic Pas976 Osmo 290 mOsmo 03/09/2017 Free T4 Zku979 FREE T4 0.86 ng/dL 03/08/2017 Cbc With [...] 0.2 % 03/08/2017 Cbc With Differential Ord2 Neut ABS# 6.75 K/ul 03/08/2017 Cbc With Differential Ord2 RDW 16.8 % 03/08/2017 Cbc With Differential Ord2 Lymph ABS# 1.63 K/ul 03/08/2017 Cbc With Differential Ord2 Graves ABS# 0.9 K/ul 03/08/2017 Cbc With Differential Ord2 Eos ABS# 0.5 K/ul 03/08/2017 Cbc With Differential Ord2 Baso ABS# 0.0 K/ul 03/08/2017 Tsh Ord6 hTSH II 4.52 uIU/mL 03/08/2017 %Hba1C Trd165 % HbA1c 61116- 6 8.5 % 03/08/2017 %Hba1C Chm866 Gluc Ave 197 mg/dL 03/08/2017 %Hba1C Fqj382 % HbA1c 33340- 6 9.8 % 12/04/2016 %Hba1C Bkg278 Gluc Ave 235 mg/dL 12/04/2016 Tsh Ord6 hTSH II 10.65 uIU/mL 11/30/2016 Comp Metabolic Wdm654 NA 134 mEq/L 11/30/2016 Comp Metabolic Gsr086 K 5.0 mEq/L 11/30/2016 Comp Metabolic Cnc862 CL 95 mEq/L 11/30/2016 Comp Metabolic Vkg136 CO2 34.0 mEq/L 11/30/2016 Comp Metabolic Rfk498 ANION GAP 10 11/30/2016 Comp Metabolic Arb415 GLUCOSE 226 mg/dL 11/30/2016 Comp Metabolic Opv970 Creat 1.3 mg/dL 11/30/2016 Comp Metabolic Vrd036 eGFR 56 ml/min/1.73m2 11/30/2016 Comp Metabolic Xsk460 BUN 21 mg/dL 11/30/2016 Comp Metabolic Itc829 B/C Ratio 15.7 Ratio 11/30/2016 Comp Metabolic Tic588 CALCIUM 8.9 mg/dL 11/30/2016 Comp Metabolic Yxi953 ALK PHOS 112 U/L 11/30/2016 Comp Metabolic Xsw530 AST(SGOT) 9 U/L 11/30/2016 Comp Metabolic Byg378 ALT(SGPT) 7 U/L 11/30/2016 Comp Metabolic Dnn097 BILI T 0.6 mg/dL 11/30/2016 Comp Metabolic Eqf134 ALBUMIN 3.6 g/dL 11/30/2016 Comp Metabolic Xie321 TPRO 6.4 g/dL 11/30/2016 Comp Metabolic Tde248 GLOB 2.9 g/dL 11/30/2016 Comp Metabolic Vci894 A/G Ratio 1.2 Ratio 11/30/2016 Comp Metabolic Dtb550 Osmo 278 mOsmo 11/30/2016 Lipid Ord30 CHOL [...] 30.6 pg 11/30/2016 Cbc With Differential Ord2 Graves% 7.9 % 11/30/2016 Cbc With Differential Ord2 Eos% 2.4 % 11/30/2016 Cbc With Differential Ord2 MCHC 30.8 pg 11/30/2016 Cbc With Differential Ord2 Baso% 0.1 [...] Baso ABS# 0.0 K/ul 11/30/2016 Free T4 Tvb307 FREE T4 0.89 ng/dL 11/30/2016 Review of [...] Codes Date URINALYSIS NONAUTO W/O SCOPE CPT-4: 52270Fcaihxc 03/22/2017 URINALYSIS NONAUTO W/O SCOPE CPT-4: 31897Fbliotb 03/21/2017 PPPS, SUBSEQ VISIT CPT-4: A0920Vqmepqn 11/30/2016 PNEUMOCOCCAL VACC 13 JAVIER IM Formatting Model/CDA Sections, Assigned to SNOMED CT: 52264060 CPT-4: 15306Yddicmk 11/30/2016 ADMIN PNEUMOCOCCAL VACCINE SNOMED CT: 58128942 CPT-4: I6508Vkqwssg 11/30/2016 Vital Signs Date Vital 03/26/2017 Blood Pressure 1: 114/62 Code: 8480-6 BMI: 38.3 Code: 98184-4 Height: 5'10" Weight: 267 lbs 03/22/2017 Blood Pressure 1: 122/64 Code: 8480-6 BMI: 40.0 Code: 25857-6 Heart Rate 1: 52 bpm Height: 5'10" SpO2: 94% Weight: 279 lbs 03/08/2017 Blood Pressure 1: 124/70 Code: 8480-6 BMI: 39.4 Code: 44118-5 Heart Rate 1: 51 bpm Height: 5'10" SpO2: 94% Weight: 274 lbs 8 oz 12/06/2016 Blood Pressure 1: 126/62 Code: 8480-6 BMI: 40.3 Code: 37520-8 Heart Rate 1: 50 bpm Height: 5'10" SpO2: 94% Weight: 281 lbs 11/30/2016 Blood Pressure 1: 112/62 Code: 8480-6 BMI: 40.3 Code: 22993-8 Heart Rate 1: 52 bpm Height: 5'10" SpO2: 93% Waist Measure (cm): 135 cm Weight: 281 lbs 11/28/2016 Blood Pressure 1: 132/72 Code: 8480-6 BMI: 40.3 Code: 40229-3 Heart Rate 1: 50 bpm Height: 5'10" Weight: 281 lbs 05/04/2016 Blood Pressure 1: 128/78 Code: 8480-6 BMI: 38.5 Code: 60271-3 Heart Rate 1: 74 bpm Height: 5'10" SpO2: 98% Weight: 268 lbs 8 oz 11/04/2015 Blood Pressure 1: 136/60 Code: 8480-6 BMI: 38.0 Code: 55754-0 Heart Rate 1: 55 bpm Height: 5'10" SpO2: 94% Weight: 265 lbs 07/30/2015 Blood Pressure 1: 128/74 Code: 8480-6 BMI: 38.0 Code: 77385-8 Heart Rate 1: 47 bpm Height: 5'10" SpO2: 97% Weight: 265 lbs 01/26/2015 Blood Pressure 1: 122/64 Code: 8480-6 BMI: 34.0 Code: 14310-4 Heart Rate 1: 68 bpm Height: 5'10" [...] data Encounters Encounter Performer Location Codes Date ([id number]) Miscellaneous no charge Diagnosis: Localized edema[ICD10: R60.0] Diagnosis: Cellulitis of left lower limb[ICD10: L03.116] Sarah Sanchez MD, [facility] CPT-4: 51650 03/26/2017 ([id number]) 05323 EST. 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 PATIENT, LEVEL IV Diagnosis: Type 2 diabetes mellitus with hyperglycemia[ICD10: E11.65] Diagnosis: Other specified hypothyroidism[ICD10: E03.8] Diagnosis: Essential (primary) hypertension[ICD10: I10] Sarah Sanchez MD, [facility] CPT-4: 19756 03/08/2017 ([id number]) 32890 EST. PATIENT, LEVEL III Diagnosis: Type 2 diabetes mellitus with hyperglycemia[ICD10: E11.65] Diagnosis: Other specified hypothyroidism[ICD10: E03.8] Sarah Sanchez MD, [facility] CPT-4: 15075 12/06/2016 [id number]) 83495 EST. PATIENT, LEVEL IV Diagnosis: Essential (primary) hypertension[ICD10: I10] Diagnosis: Chronic kidney disease, stage 3 (moderate)[ICD10: N18.3] Dorene Sanchez MD, [facility] CPT-4: 70069 11/28/2016 ([id number]) 43190 EST. PATIENT, LEVEL IV Diagnosis: Essential (primary) hypertension[ICD10: I10] Diagnosis: Chronic pain syndrome[ICD10: G89.4] Diagnosis: Chronic kidney disease, stage 3 (moderate)[ICD10: N18.3] Diagnosis: Vitamin B12 deficiency anemia due to intrinsic factor deficiency[ICD10: D51.0] Diagnosis: Other specified hypothyroidism[ICD10: E03.8] [facility] CPT-4: 75594 05/04/2016 64431 EST. PATIENT, LEVEL III Diagnosis: Chronic pain syndrome[ICD10: G89.4] Diagnosis: Essential (primary) hypertension[ICD10: I10] Diagnosis: Other specified hypothyroidism[ICD10: E03.8] [facility] CPT-4: 75450 11/04/2015 [id number] EST. PATIENT, LEVEL III Diagnosis: Chronic pain syndrome[ICD10: G89.4] Diagnosis: Essential (primary) hypertension[ICD10: I10] [facility] CPT-4: 02389 07/30/2015 ([id number]) OFFICE/OUTPATIENT VISIT NEW Diagnosis: ESSENTIAL HYPERTENSION[ICD9: 401.9] Diagnosis: HYPOTHYROIDISM[ICD9: 244.9] Diagnosis: ANEMIA[ICD9: 285.9] Diagnosis: Vitamin B12 deficiency[ICD9: 266.2] Diagnosis: CHRONIC PAIN SYNDROME[ICD9: 338.4] Diagnosis: Chronic renal insufficiency, stage III (moderate)[ICD9: 585.3] Diagnosis: GOUT[ICD9: 274.9] [facility] CPT-4: 40247 01/26/2015 Plan of Care Planned Activity Notes Codes Status Date Visit Plan: Cellulitis-left leg-continue levaquin Edema-increase lasix/potassium- consult [facility] for unna boots/dressing changes 03/26/2017 Appointment: Sarah Hernandes WPtel: [address] [place], [place] [phone] (15 min) Moderate 03/26/2017 Patient Education: Patient [...] indomethacin-stop aleve 03/22/2017 Appointment: [phone] (15 min) Moderate 03/22/2017 Patient Education: Patient [...] of control. 03/08/2017 Appointment: [facility] Hernandes [facility]el: [phone] [place] (30 min) Complex 03/08/2017 Patient Education: [...] surrogate. 11/30/2016 Appointment: [facility] Hern[facility] [phone] [phone] [facility] - Annual Wellness Visit 11/30/2016 [...] fluids. 11/28/2016 Appointment: Dorene Sanchez WPtel: [phone] [facility] [...] AND POTASSIUM TO TWICE DAILY [facility] . Cellulitis-left leg-continue levaquin Edema-increase lasix/potassium-consult [facility] for unna boots/dressing changes [...] YEAR TOMMYES VACCINATION TO BE ADMINISTERED AT [facility] OBTAINING MEDICAL POWER OF COMMERCIAL SALES REPRESENTATIVE AND LIVING WILL PATIENT DOES NOT HAVE [...] YEAR SHINGLES VACCINATION TO BE ADMINISTERED AT [facility] OBTAINING MEDICAL POWER OF COMMERCIAL SALES REPRESENTATIVE AND LIVING WILL PATIENT DOES NOT HAVE [...] YEAR SHINGLES VACCINATION TO BE ADMINISTERED AT [facility] OBTAINING MEDICAL POWER OF COMMERCIAL SALES REPRESENTATIVE AND LIVING WILL PATIENT DOES NOT HAVE [...]
[2019-03-24] MEDS ORDERED: DEXAMETHASONE 10 MG/ML (DECADRON) 1 ML VIAL ONE (08:22)
[2019-03-24] MEDS ORDERED: BUPIVACAINE 0.5% 30 ML (SENSORCAINE) VIAL ONE (08:22)
[2019-03-24] MEDS ORDERED: LIDOCAINE 1% INJ 20 ML 20 ML VIAL ONE (08:22)
--- OUTSIDE RECORDS SUMMARY | 2019-03-24 08:23 | XMS REPORT | CCD ---
Author Author Dorene Sanchez Organization [facility] Address [address] [place] [address] Phone Care Team Providers Care Resident Care Spec Name Role Phone PP Unavailable CCM Unavailable Summary Purpose Interface Exchange Insurance Providers Payer name Policy type / Coverage type Covered alliance party ID Effective Begin Date Effective End Date WPS Medicare Part B Medicare Part B [id number] Unknown Unknown Family history Father Diagnosis Age At Onset Stroke Unknown Mother Diagnosis Age At Onset Stroke Unknown Diabetes mellitus Type 2 Unknown Social History Social History Element Codes Description Effective Dates Tobacco history SNOMED CT: 082179004 Currently uses smokeless tobacco Chews 05/04/2016 Marital status Unknown 01/26/2015 Number of children Unknown 3 01/26/2015 Employment Unknown Retired 01/26/[address]: 891248150 Never drinks alcohol quit in July 2014 [...] Fill Instructions Lasix 20 mg tablet RxNorm: 657056 1 Tablet(s) PO QDAY PRN 03/22/2017 No Stop Date Active daily x 5 days then as needed Levaquin 500 mg tablet RxNorm: 263233 1 Tablet(s) PO daily 03/22/2017 03/31/2017 Active potassium chloride ER 10 mEq capsule,extended release RxNorm: 995976 1 Capsule(s) PO QDAY PRN 03/22/2017 No Stop Date Active daily x 5 days then as needed with lasix indomethacin 25 mg capsule RxNorm: 570243 1 Capsule(s) PO TID PRN 03/22/2017 03/22/2017 Inactive oxycodone 20 mg tablet RxNorm: 4401489 1/2 Tablet(s) PO Q6 as needed 03/08/2017 04/06/2017 Active bisoprolol 5 mg-hydrochlorothiazide 6.25 mg tablet RxNorm: 916555 TAKE ONE TABLET BY MOUTH DAILY 02/14/2017 05/14/2017 Active oxycodone 20 mg tablet RxNorm: 5586883 1/2 Tablet(s) PO Q6 as needed 02/08/2017 03/07/2017 Inactive oxycodone 20 mg tablet RxNorm: 5835951 1/2 Tablet(s) PO Q6 as needed 01/08/2017 02/06/2017 Inactive levothyroxine 175 mcg tablet RxNorm: 633010 1 Tablet(s) PO daily 12/06/2016 06/03/2017 Active [SAVINGS FOR NON-COVERED DRUGS -- BIN:212151, PCN: ASPROD1, Group: XXXXX, ID# [id number], Questions: . THIS IS NOT INSURANCE.] oxycodone 20 mg tablet RxNorm: 3921421 1/2 Tablet(s) PO Q6 as needed 12/04/2016 01/02/2017 Inactive oxycodone 20 mg tablet RxNorm: 1832178 1/2 Tablet(s) PO Q6 as needed 11/09/2016 12/03/2016 Inactive bisoprolol 5 mg-hydrochlorothiazide 6.25 mg tablet RxNorm: 347752 TAKE ONE TABLET BY MOUTH DAILY 11/08/2016 02/05/2017 Inactive oxycodone 20 mg tablet RxNorm: 7369889 1/2 Tablet(s) PO Q6 as needed 10/05/2016 11/03/2016 Inactive oxycodone 20 mg tablet RxNorm: 2723045 1/2 Tablet(s) PO Q6 as needed 09/06/2016 10/04/2016 Inactive oxycodone 20 mg tablet RxNorm: 7043635 1/2 Tablet(s) PO Q6 as needed 08/07/2016 09/05/2016 Inactive oxycodone 20 mg tablet RxNorm: 3443078 1/2 Tablet(s) PO Q6 as needed 07/04/2016 08/06/2016 Inactive oxycodone 20 mg tablet RxNorm: 9699853 1/2 Tablet(s) PO Q6 as needed 05/29/2016 07/03/2016 Inactive levothyroxine 150 mcg tablet RxNorm: 692772 1 Tablet(s) PO daily 04/10/2016 04/09/2016 Inactive [SAVINGS FOR NON-COVERED DRUGS -- BIN:697814, PCN: ASPROD1, Group: XXXXX, ID# XXXXXXX, Questions: . THIS IS NOT INSURANCE.] oxycodone 20 mg tablet RxNorm: 9078500 1/2 Tablet(s) PO Q6 as needed 04/10/2016 05/28/2016 Inactive levothyroxine 150 mcg tablet RxNorm: 233581 1 Tablet(s) PO daily 04/10/2016 10/06/2016 Inactive [SAVINGS FOR NON-COVERED DRUGS -- BIN:611410, PCN: ASPROD1, Group: XXXXX, ID# [id number], Questions: . THIS IS NOT INSURANCE.] bisoprolol 5 mg-hydrochlorothiazide 6.25 mg tablet RxNorm: 265816 1 Tablet(s) PO daily 02/16/2016 05/15/2016 Inactive oxycodone 20 mg tablet RxNorm: 1293807 1/2 Tablet(s) PO Q6 as needed 02/16/2016 04/09/2016 Inactive oxycodone 20 mg tablet RxNorm: 4365485 1/2 Tablet(s) PO Q6 as needed 01/04/2016 02/15/2016 Inactive bisoprolol 5 mg-hydrochlorothiazide 6.25 mg tablet RxNorm: 130362 1 Tablet(s) PO daily 11/19/2015 01/17/2016 Inactive bisoprolol 5 mg-hydrochlorothiazide 6.25 mg tablet RxNorm: 799210 1 Tablet(s) PO daily 11/04/2015 11/18/2015 Inactive oxycodone 20 mg tablet RxNorm: 3647783 1/2 Tablet(s) PO Q6 as needed 10/27/2015 01/03/2016 Inactive levothyroxine 150 mcg tablet RxNorm: 085876 1 Tablet(s) PO daily 08/26/2015 02/21/2016 Inactive [SAVINGS FOR NON-COVERED DRUGS -- BIN:777825, PCN: ASPROD1, Group: XXXXX, ID# XXXXXXX, Questions: . THIS IS NOT INSURANCE.] bisoprolol 5 mg-hydrochlorothiazide 6.25 mg tablet RxNorm: 164954 1 Tablet(s) PO daily 08/26/2015 10/24/2015 Inactive oxycodone 10 mg tablet RxNorm: 9732354 1 Tablet(s) PO Q6 as needed 05/06/2015 10/26/2015 Inactive levothyroxine 150 mcg tablet RxNorm: 189236 1 Tablet(s) PO daily 02/05/2015 08/03/2015 Inactive [SAVINGS FOR NON-COVERED DRUGS -- BIN:379949, PCN: ASPROD1, Group: XXXXX, ID# XXXXXXX, Questions: . THIS IS NOT INSURANCE.] Vitamin D2 50,000 unit capsule RxNorm: 631653 1 Capsule(s) PO weekly 02/05/2015 05/05/2015 Inactive [SAVINGS FOR NON-COVERED DRUGS -- BIN:589332, PCN: ASPROD1, Group: XXXXX, ID# XXXXXXX, Questions: . THIS IS NOT INSURANCE.] Vitamin D2 50,000 unit capsule RxNorm: 341591 1 Capsule(s) PO weekly 02/05/2015 02/04/2015 Inactive bisoprolol 5 mg-hydrochlorothiazide 6.25 mg tablet RxNorm: 091442 1 Tablet(s) PO daily 01/26/2015 02/24/2015 Inactive levothyroxine 200 mcg tablet RxNorm: 226785 1 Tablet(s) PO daily 01/26/2015 01/25/2015 Inactive levothyroxine 200 mcg tablet RxNorm: 611219 1 Tablet(s) PO every other day 01/26/2015 02/04/2015 Inactive [SAVINGS FOR NON-COVERED DRUGS -- BIN:245736, PCN: ASPROD1, Group: XXXXX, ID# XXXXXXX, Questions: . THIS IS NOT INSURANCE.] aspirin 325 mg tablet RxNorm: 560801 1 Tablet(s) PO daily No Start Date 05/03/2016 Inactive levothyroxine 75 mcg tablet RxNorm: 328307 1 Tablet(s) PO every other day No Start Date 02/04/2015 Inactive takes qod with 200mcg oxycodone 10 mg tablet RxNorm: 9218942 1 Tablet(s) PO Q6 as needed No [...] 27.9 pg 03/22/2017 Cbc With Differential Ord2 [place]% 8.3 % 03/22/2017 Cbc With Differential Ord2 [...] 1.35 K/ul 03/22/2017 Cbc With Differential Ord2 [place] ABS# 1.4 K/ul 03/22/2017 Cbc With Differential Ord2 Eos ABS# 0.2 K/ul 03/22/2017 Cbc With Differential Ord2 Baso ABS# 0.0 K/ul 03/22/2017 Comp Metabolic Kng633 NA 134 mEq/L 03/22/2017 Comp Metabolic Vjf757 K 4.5 mEq/L 03/22/2017 Comp Metabolic Twl934 CL 93 mEq/L 03/22/2017 Comp Metabolic Znx640 CO2 31.0 mEq/L 03/22/2017 Comp Metabolic Nnu736 ANION GAP 15 03/22/2017 Comp Metabolic Qxt506 GLUCOSE 198 mg/dL 03/22/2017 Comp Metabolic Vad723 Creat 1.5 mg/dL 03/22/2017 Comp Metabolic Xgg742 eGFR 50 ml/min/1.73m2 03/22/2017 Comp Metabolic Wsq765 BUN 32 mg/dL 03/22/2017 Comp Metabolic Xsi179 B/C Ratio 21.6 Ratio 03/22/2017 Comp Metabolic Vxo908 CALCIUM 8.4 mg/dL 03/22/2017 Comp Metabolic Fta484 ALK PHOS 245 U/L 03/22/2017 Comp Metabolic Fya661 AST(SGOT) 18 U/L 03/22/2017 Comp Metabolic Nve834 ALT(SGPT) 17 U/L 03/22/2017 Comp Metabolic Pms398 BILI T 0.8 mg/dL 03/22/2017 Comp Metabolic Umz994 ALBUMIN 2.9 g/dL 03/22/2017 Comp Metabolic Pfi279 TPRO 6.3 g/dL 03/22/2017 Comp Metabolic Tyo209 GLOB 3.4 g/dL 03/22/2017 Comp Metabolic Mos335 A/G Ratio 0.8 Ratio 03/22/2017 Comp Metabolic Pmj310 Osmo 281 mOsmo 03/22/2017 Lipase Weu377 LIPASE 12 U/L 03/22/2017 Comp Metabolic Jor347 NA 142 mEq/L 03/09/2017 Comp Metabolic Qwt187 K 4.8 mEq/L 03/09/2017 Comp Metabolic Sqr138 CL 103 mEq/L 03/09/2017 Comp Metabolic Bjp087 CO2 30.0 mEq/L 03/09/2017 Comp Metabolic Owo663 ANION GAP 14 03/09/2017 Comp Metabolic Zco549 GLUCOSE 152 mg/dL 03/09/2017 Comp Metabolic Dkh268 Creat 1.3 mg/dL 03/09/2017 Comp Metabolic Hfl436 eGFR 56 ml/min/1.73m2 03/09/2017 Comp Metabolic Qap234 BUN 23 mg/dL 03/09/2017 Comp Metabolic Bkm945 B/C Ratio 17.3 Ratio 03/09/2017 Comp Metabolic Uuf082 CALCIUM 8.5 mg/dL 03/09/2017 Comp Metabolic Vzp398 ALK PHOS 97 U/L 03/09/2017 Comp Metabolic Zhn488 AST(SGOT) 10 U/L 03/09/2017 Comp Metabolic Kvn891 ALT(SGPT) 6 U/L 03/09/2017 Comp Metabolic Pnr766 BILI T 0.4 mg/dL 03/09/2017 Comp Metabolic Zui692 ALBUMIN 3.4 g/dL 03/09/2017 Comp Metabolic Qlf508 TPRO 6.2 g/dL 03/09/2017 Comp Metabolic Omm457 GLOB 2.8 g/dL 03/09/2017 Comp Metabolic Sfs455 A/G Ratio 1.2 Ratio 03/09/2017 Comp Metabolic Tay269 Osmo 290 mOsmo 03/09/2017 Free T4 Ssm102 FREE T4 0.86 ng/dL 03/08/2017 Cbc With [...] 28.2 pg 03/08/2017 Cbc With Differential Ord2 [place]% 8.7 % 03/08/2017 Cbc With Differential Ord2 [...] 1.63 K/ul 03/08/2017 Cbc With Differential Ord2 [place] ABS# 0.9 K/ul 03/08/2017 Cbc With Differential Ord2 Eos ABS# 0.5 K/ul 03/08/2017 Cbc With Differential Ord2 Baso ABS# 0.0 K/ul 03/08/2017 Tsh Ord6 hTSH II 4.52 uIU/mL 03/08/2017 %Hba1C Pho025 % HbA1c 03826- 6 8.5 % 03/08/2017 %Hba1C Egx225 Gluc Ave 197 mg/dL 03/08/2017 %Hba1C Cjp173 % HbA1c 34162- 6 9.8 % 12/04/2016 %Hba1C Scf668 Gluc Ave 235 mg/dL 12/04/2016 Tsh Ord6 hTSH II 10.65 uIU/mL 11/30/2016 Comp Metabolic Iwp632 NA 134 mEq/L 11/30/2016 Comp Metabolic Xss037 K 5.0 mEq/L 11/30/2016 Comp Metabolic Njs860 CL 95 mEq/L 11/30/2016 Comp Metabolic Pzj412 CO2 34.0 mEq/L 11/30/2016 Comp Metabolic Yaz150 ANION GAP 10 11/30/2016 Comp Metabolic Jek536 GLUCOSE 226 mg/dL 11/30/2016 Comp Metabolic Kmm043 Creat 1.3 mg/dL 11/30/2016 Comp Metabolic Yyh902 eGFR 56 ml/min/1.73m2 11/30/2016 Comp Metabolic Kyo898 BUN 21 mg/dL 11/30/2016 Comp Metabolic Fdh176 B/C Ratio 15.7 Ratio 11/30/2016 Comp Metabolic Jim458 CALCIUM 8.9 mg/dL 11/30/2016 Comp Metabolic Vxp172 ALK PHOS 112 U/L 11/30/2016 Comp Metabolic Rzc620 AST(SGOT) 9 U/L 11/30/2016 Comp Metabolic Jks498 ALT(SGPT) 7 U/L 11/30/2016 Comp Metabolic Bdn403 BILI T 0.6 mg/dL 11/30/2016 Comp Metabolic Ker564 ALBUMIN 3.6 g/dL 11/30/2016 Comp Metabolic Mho732 TPRO 6.4 g/dL 11/30/2016 Comp Metabolic Wjm948 GLOB 2.9 g/dL 11/30/2016 Comp Metabolic Bfm883 A/G Ratio 1.2 Ratio 11/30/2016 Comp Metabolic Xhm905 Osmo 278 mOsmo 11/30/2016 Lipid Ord30 CHOL [...] 13.0 % 11/30/2016 Cbc With Differential Ord2 [place]% 7.9 % 11/30/2016 Cbc With Differential Ord2 [...] 1.34 K/ul 11/30/2016 Cbc With Differential Ord2 [place] ABS# 0.8 K/ul 11/30/2016 Cbc With Differential Ord2 Eos ABS# 0.3 K/ul 11/30/2016 Cbc With Differential Ord2 Baso ABS# 0.0 K/ul 11/30/2016 Free T4 Sxv663 FREE T4 0.89 ng/dL 11/30/2016 Review of [...] Codes Date URINALYSIS NONAUTO W/O SCOPE CPT-4: 73906Mzwoxnj 03/22/2017 URINALYSIS NONAUTO W/O SCOPE CPT-4: 41397Bqyjonk 03/21/2017 PPPS, SUBSEQ VISIT CPT-4: W0756Mmkpfpd 11/30/2016 PNEUMOCOCCAL VACC 13 JAVIER IM Formatting Model/CDA Sections, Assigned to SNOMED CT: 42156880 CPT-4: 57400Vjlbbmy 11/30/2016 ADMIN PNEUMOCOCCAL VACCINE SNOMED CT: 39197368 CPT-4: A7459Rvqxmvu 11/30/2016 Vital Signs Date Vital 03/26/2017 Blood Pressure 1: 114/62 Code: 8480-6 BMI: 38.3 Code: 60982-9 Height: 5'10" Weight: 267 lbs 03/22/2017 Blood Pressure 1: 122/64 Code: 8480-6 BMI: 40.0 Code: 92905-6 Heart Rate 1: 52 bpm Height: 5'10" SpO2: 94% Weight: 279 lbs 03/08/2017 Blood Pressure 1: 124/70 Code: 8480-6 BMI: 39.4 Code: 75632-0 Heart Rate 1: 51 bpm Height: 5'10" SpO2: 94% Weight: 274 lbs 8 oz 12/06/2016 Blood Pressure 1: 126/62 Code: 8480-6 BMI: 40.3 Code: 75518-9 Heart Rate 1: 50 bpm Height: 5'10" SpO2: 94% Weight: 281 lbs 11/30/2016 Blood Pressure 1: 112/62 Code: 8480-6 BMI: 40.3 Code: 16558-7 Heart Rate 1: 52 bpm Height: 5'10" SpO2: 93% Waist Measure (cm): 135 cm Weight: 281 lbs 11/28/2016 Blood Pressure 1: 132/72 Code: 8480-6 BMI: 40.3 Code: 43872-7 Heart Rate 1: 50 bpm Height: 5'10" Weight: 281 lbs 05/04/2016 Blood Pressure 1: 128/78 Code: 8480-6 BMI: 38.5 Code: 21834-9 Heart Rate 1: 74 bpm Height: 5'10" SpO2: 98% Weight: 268 lbs 8 oz 11/04/2015 Blood Pressure 1: 136/60 Code: 8480-6 BMI: 38.0 Code: 26559-9 Heart Rate 1: 55 bpm Height: 5'10" SpO2: 94% Weight: 265 lbs 07/30/2015 Blood Pressure 1: 128/74 Code: 8480-6 BMI: 38.0 Code: 28846-1 Heart Rate 1: 47 bpm Height: 5'10" SpO2: 97% Weight: 265 lbs 01/26/2015 Blood Pressure 1: 122/64 Code: 8480-6 BMI: 34.0 Code: 63742-0 Heart Rate 1: 68 bpm Height: 5'10" [...] data Encounters Encounter Performer Location Codes Date ([id number]) Miscellaneous no charge Diagnosis: Localized edema[ICD10: R60.0] Diagnosis: Cellulitis of left lower limb[ICD10: L03.116] Sarah Sanchez MD, [facility] CPT-4: 21394 03/26/2017 ([id number]) 25735 EST. 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 CPT-4: 41288 03/22/2017 ([id number]) 12874 EST. PATIENT, LEVEL IV Diagnosis: Type 2 diabetes mellitus with hyperglycemia[ICD10: E11.65] Diagnosis: Other specified hypothyroidism[ICD10: E03.8] Diagnosis: Essential (primary) hypertension[ICD10: I10] Sarah Sanchez MD, [facility] CPT-4: 88177 03/08/2017 ([id number]) 12966 EST. PATIENT, LEVEL III Diagnosis: Type 2 diabetes mellitus with hyperglycemia[ICD10: E11.65] Diagnosis: Other specified hypothyroidism[ICD10: E03.8] Sarah Sanchez MD, [facility] CPT-4: 33066 12/06/2016 [id number]) 69286 EST. PATIENT, LEVEL IV Diagnosis: Essential (primary) hypertension[ICD10: I10] Diagnosis: Chronic kidney disease, stage 3 (moderate)[ICD10: N18.3] Dorene Sanchez MD, [facility] CPT-4: 43025 11/28/2016 ([id number]) 42720 EST. PATIENT, LEVEL IV Diagnosis: Essential (primary) hypertension[ICD10: I10] Diagnosis: Chronic pain syndrome[ICD10: G89.4] Diagnosis: Chronic kidney disease, stage 3 (moderate)[ICD10: N18.3] Diagnosis: Vitamin B12 deficiency anemia due to intrinsic factor deficiency[ICD10: D51.0] Diagnosis: Other specified hypothyroidism[ICD10: E03.8] [facility] CPT-4: 04478 05/04/2016 58925 EST. PATIENT, LEVEL III Diagnosis: Chronic pain syndrome[ICD10: G89.4] Diagnosis: Essential (primary) hypertension[ICD10: I10] Diagnosis: Other specified hypothyroidism[ICD10: E03.8] [facility] CPT-4: 53005 11/04/2015 04239 EST. PATIENT, LEVEL III Diagnosis: Chronic pain syndrome[ICD10: G89.4] Diagnosis: Essential (primary) hypertension[ICD10: I10] [facility] CPT-4: 84488 07/30/2015 ([id number]) OFFICE/OUTPATIENT VISIT NEW Diagnosis: ESSENTIAL HYPERTENSION[ICD9: 401.9] Diagnosis: HYPOTHYROIDISM[ICD9: 244.9] Diagnosis: ANEMIA[ICD9: 285.9] Diagnosis: Vitamin B12 deficiency[ICD9: 266.2] Diagnosis: CHRONIC PAIN SYNDROME[ICD9: 338.4] Diagnosis: Chronic renal insufficiency, stage III (moderate)[ICD9: 585.3] Diagnosis: GOUT[ICD9: 274.9] [facility] CPT-4: 12585 01/26/2015 Plan of Care Planned Activity Notes Codes Status Date Visit Plan: Cellulitis-left leg-continue levaquin Edema-increase lasix/potassium- consult [facility] for unna boots/dressing changes 03/26/2017 Patient Education: Patient Medication Summary Completed [...] indomethacin-stop aleve 03/22/2017 Appointment: [phone] (15 min) Moderate 03/22/2017 Patient Education: Patient [...] control. 03/08/2017 Appointment: Sarah Hernandes WPtel: [address] [place], [place] [phone] (30 min) Complex 03/08/2017 Patient Education: Patient [...] surrogate. 11/30/2016 [facility]ment: [facility] [phone] [phone] [facility] - Annual Wellness Visit 11/30/2016 Patient [...] fluids. 11/28/2016 [facility] [phone] [facility] (15 min) Moderate 11/28/2016 Patient Education: Patient [...] CARE . Cellulitis-left leg-continue levaquin Edema-increase lasix/potassium-consult [facility] for unna boots/dressing changes WRAP LEGS-THIGHS [...] HOSPITAL PHARMACY RECOMMEND OBTAINING MEDICAL POWER OF PUBLIC HEALTH SOCIAL WORKER AND LIVING WILL PATIENT DOES NOT [...] YEAR SHINGLES VACCINATION TO BE ADMINISTERED AT [facility] RECOMMEND OBTAINING MEDICAL POWER OF PUBLIC HEALTH SOCIAL WORKER AND LIVING WILL PATIENT DOES NOT [...] YEAR SHINGLES VACCINATION TO BE ADMINISTERED AT [facility] RECOMMEND OBTAINING MEDICAL POWER OF PUBLIC HEALTH SOCIAL WORKER AND LIVING WILL PATIENT DOES NOT [...]
--- OUTSIDE RECORDS SUMMARY | 2019-03-24 08:24 | XMS REPORT | CCD ---
Author Author Dorene Sanchez Organization [facility] Address [address] [place] [address] Phone Care Team Providers Care Aviation Electronics Technician Name Role Phone PP Unavailable CCM Unavailable Summary Purpose Interface Exchange Insurance Providers Payer name Policy type / Coverage type Covered democrat ID Effective Begin Date Effective End Date WPS Medicare Part B Medicare Part B [id number] Unknown Unknown Family history Father Diagnosis Age At Onset Stroke Unknown Mother Diagnosis Age At Onset Stroke Unknown Diabetes mellitus Type 2 Unknown Social History Social History Element Codes Description Effective Dates Tobacco history SNOMED CT: 482769205 Currently uses smokeless tobacco Chews 05/04/2016 Marital status Unknown 01/26/2015 Number of children Unknown 3 01/26/2015 Employment Unknown Retired 01/26/[address]: 197719264 Never drinks alcohol quit in July 2014 [...] ICD-9: 788.1 ICD-10: R30.0 Active 03/21/2017 Unknown Localized edema ICD-9: 782.3 ICD-10: R60.0 Active 03/22/2017 Unknown Type 2 diabetes mellitus with hyperglycemia [...] Dysuria ICD-9: 788.1 ICD-10: R30.0 03/21/2017 Active Localized edema ICD-9: 782.3 ICD-10: R60.0 03/22/2017 Active Type 2 diabetes mellitus with hyperglycemia [...] Start Date Stop Date Status Fill Instructions indomethacin 25 mg capsule RxNorm: 631743 1 Capsule(s) PO TID PRN 03/22/2017 03/22/2017 Inactive Lasix 20 mg tablet RxNorm: 439710 1 Tablet(s) PO QDAY PRN 03/22/2017 No Stop Date Active daily x 5 days then as needed Levaquin 500 mg tablet RxNorm: 837947 1 Tablet(s) PO daily 03/22/2017 03/31/2017 Active potassium chloride ER 10 mEq capsule,extended release RxNorm: 200143 1 Capsule(s) PO QDAY PRN 03/22/2017 No Stop Date Active daily x 5 days then as needed with lasix oxycodone 20 mg tablet RxNorm: 8954684 1/2 Tablet(s) PO Q6 as needed 03/08/2017 04/06/2017 Active bisoprolol 5 mg-hydrochlorothiazide 6.25 mg tablet RxNorm: 583349 TAKE ONE TABLET BY MOUTH DAILY 02/14/2017 05/14/2017 Active oxycodone 20 mg tablet RxNorm: 6627252 1/2 Tablet(s) PO Q6 as needed 02/08/2017 03/07/2017 Inactive oxycodone 20 mg tablet RxNorm: 2019899 1/2 Tablet(s) PO Q6 as needed 01/08/2017 02/06/2017 Inactive levothyroxine 175 mcg tablet RxNorm: 559203 1 Tablet(s) PO daily 12/06/2016 06/03/2017 Active [SAVINGS FOR NON-COVERED DRUGS -- BIN:[id number], PCN: ASPROD1, Group: XXXXX, ID# XXXXXXX, Questions: . THIS IS NOT INSURANCE.] oxycodone 20 mg tablet RxNorm: 4993130 1/2 Tablet(s) PO Q6 as needed 12/04/2016 01/02/2017 Inactive oxycodone 20 mg tablet RxNorm: 7139814 1/2 Tablet(s) PO Q6 as needed 11/09/2016 12/03/2016 Inactive bisoprolol 5 mg-hydrochlorothiazide 6.25 mg tablet RxNorm: 719131 TAKE ONE TABLET BY MOUTH DAILY 11/08/2016 02/05/2017 Inactive oxycodone 20 mg tablet RxNorm: 9051192 1/2 Tablet(s) PO Q6 as needed 10/05/2016 11/03/2016 Inactive oxycodone 20 mg tablet RxNorm: 4731850 1/2 Tablet(s) PO Q6 as needed 09/06/2016 10/04/2016 Inactive oxycodone 20 mg tablet RxNorm: 9864852 1/2 Tablet(s) PO Q6 as needed 08/07/2016 09/05/2016 Inactive oxycodone 20 mg tablet RxNorm: 5695340 1/2 Tablet(s) PO Q6 as needed 07/04/2016 08/06/2016 Inactive oxycodone 20 mg tablet RxNorm: 5569581 1/2 Tablet(s) PO Q6 as needed 05/29/2016 07/03/2016 Inactive levothyroxine 150 mcg tablet RxNorm: 616765 1 Tablet(s) PO daily 04/10/2016 04/09/2016 Inactive [SAVINGS FOR NON-COVERED DRUGS -- BIN:[id number], PCN: ASPROD1, Group: XXXXX, ID# [id number], Questions: . THIS IS NOT INSURANCE.] oxycodone 20 mg tablet RxNorm: 2875756 1/2 Tablet(s) PO Q6 as needed 04/10/2016 05/28/2016 Inactive levothyroxine 150 mcg tablet RxNorm: 655214 1 Tablet(s) PO daily 04/10/2016 10/06/2016 Inactive [SAVINGS FOR NON-COVERED DRUGS -- BIN:[id number], PCN: ASPROD1, Group: XXXXX, ID# [id number], Questions: . THIS IS NOT INSURANCE.] bisoprolol 5 mg-hydrochlorothiazide 6.25 mg tablet RxNorm: 558479 1 Tablet(s) PO daily 02/16/2016 05/15/2016 Inactive oxycodone 20 mg tablet RxNorm: 0078549 1/2 Tablet(s) PO Q6 as needed 02/16/2016 04/09/2016 Inactive oxycodone 20 mg tablet RxNorm: 0349356 1/2 Tablet(s) PO Q6 as needed 01/04/2016 02/15/2016 Inactive bisoprolol 5 mg-hydrochlorothiazide 6.25 mg tablet RxNorm: 601521 1 Tablet(s) PO daily 11/19/2015 01/17/2016 Inactive bisoprolol 5 mg-hydrochlorothiazide 6.25 mg tablet RxNorm: 627353 1 Tablet(s) PO daily 11/04/2015 11/18/2015 Inactive oxycodone 20 mg tablet RxNorm: 1611642 1/2 Tablet(s) PO Q6 as needed 10/27/2015 01/03/2016 Inactive levothyroxine 150 mcg tablet RxNorm: 856788 1 Tablet(s) PO daily 08/26/2015 02/21/2016 Inactive [SAVINGS FOR NON-COVERED DRUGS -- BIN:[id number], PCN: ASPROD1, Group: XXXXX, ID# XXXXXXX, Questions: . THIS IS NOT INSURANCE.] bisoprolol 5 mg-hydrochlorothiazide 6.25 mg tablet RxNorm: 213340 1 Tablet(s) PO daily 08/26/2015 10/24/2015 Inactive oxycodone 10 mg tablet RxNorm: 2899894 1 Tablet(s) PO Q6 as needed 05/06/2015 10/26/2015 Inactive levothyroxine 150 mcg tablet RxNorm: 295119 1 Tablet(s) PO daily 02/05/2015 08/03/2015 Inactive [SAVINGS FOR NON-COVERED DRUGS -- BIN:394849, PCN: ASPROD1, Group: XXXXX, ID# [id number], Questions: . THIS IS NOT INSURANCE.] Vitamin D2 50,000 unit capsule RxNorm: 852020 1 Capsule(s) PO weekly 02/05/2015 05/05/2015 Inactive [SAVINGS FOR NON-COVERED DRUGS -- BIN:729133, PCN: ASPROD1, Group: XXXXX, ID# [id number], Questions: . THIS IS NOT INSURANCE.] Vitamin D2 50,000 unit capsule RxNorm: 355988 1 Capsule(s) PO weekly 02/05/2015 02/04/2015 Inactive bisoprolol 5 mg-hydrochlorothiazide 6.25 mg tablet RxNorm: 812426 1 Tablet(s) PO daily 01/26/2015 02/24/2015 Inactive levothyroxine 200 mcg tablet RxNorm: 138581 1 Tablet(s) PO daily 01/26/2015 01/25/2015 Inactive levothyroxine 200 mcg tablet RxNorm: 013908 1 Tablet(s) PO every other day 01/26/2015 02/04/2015 Inactive [SAVINGS FOR NON-COVERED DRUGS -- BIN:244059, PCN: ASPROD1, Group: XXXXX, ID# XXXXXXX, Questions: . THIS IS NOT INSURANCE.] aspirin 325 mg tablet RxNorm: 898551 1 Tablet(s) PO daily No Start Date 05/03/2016 Inactive levothyroxine 75 mcg tablet RxNorm: 518888 1 Tablet(s) PO every other day No Start Date 02/04/2015 Inactive takes qod with 200mcg oxycodone 10 mg tablet RxNorm: 4626459 1 Tablet(s) PO Q6 as needed No Start Date 05/05/2015 Inactive indomethacin oral RxNorm: 5781 oral No Start Date 03/21/2017 Inactive Medication Administered No Medication Administered data Immunizations Vaccine Codes Date Status Pneumococcal (Adult) CVX: 133 11/30/2016 completed Assessments Condition Codes Effective Dates Localized edema ICD-10: R60.0 ICD-9: 782.3 03/22/2017 Chronic gout due to renal impairment, left ankle and foot, without 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 ICD-9: 274.19 03/22/2017 Cellulitis of left lower limb ICD-10: L03.116 ICD-9: 682.6 03/22/2017 Type 2 diabetes mellitus with hyperglycemia [...] Reason For Visit Effective Dates Notes cellulitis 03/22/2017 diabetes mellitus 03/08/2017 diabetes mellitus [...] 27.9 pg 03/22/2017 Cbc With Differential Ord2 [place]% 8.3 % 03/22/2017 Cbc With Differential Ord2 [...] 1.35 K/ul 03/22/2017 Cbc With Differential Ord2 [place] ABS# 1.4 K/ul 03/22/2017 Cbc With Differential Ord2 Eos ABS# 0.2 K/ul 03/22/2017 Cbc With Differential Ord2 Baso ABS# 0.0 K/ul 03/22/2017 Comp Metabolic Muu190 NA 134 mEq/L 03/22/2017 Comp Metabolic Mix836 K 4.5 mEq/L 03/22/2017 Comp Metabolic Dmn266 CL 93 mEq/L 03/22/2017 Comp Metabolic Bdq272 CO2 31.0 mEq/L 03/22/2017 Comp Metabolic Bkm120 ANION GAP 15 03/22/2017 Comp Metabolic Wvy600 GLUCOSE 198 mg/dL 03/22/2017 Comp Metabolic Mfr365 Creat 1.5 mg/dL 03/22/2017 Comp Metabolic Mzh153 eGFR 50 ml/min/1.73m2 03/22/2017 Comp Metabolic Zaq490 BUN 32 mg/dL 03/22/2017 Comp Metabolic Neg498 B/C Ratio 21.6 Ratio 03/22/2017 Comp Metabolic Bun534 CALCIUM 8.4 mg/dL 03/22/2017 Comp Metabolic Ver767 ALK PHOS 245 U/L 03/22/2017 Comp Metabolic Ryr248 AST(SGOT) 18 U/L 03/22/2017 Comp Metabolic Pbx674 ALT(SGPT) 17 U/L 03/22/2017 Comp Metabolic Cuu046 BILI T 0.8 mg/dL 03/22/2017 Comp Metabolic Tnz328 ALBUMIN 2.9 g/dL 03/22/2017 Comp Metabolic Qrs928 TPRO 6.3 g/dL 03/22/2017 Comp Metabolic Pwx741 GLOB 3.4 g/dL 03/22/2017 Comp Metabolic Xwe492 A/G Ratio 0.8 Ratio 03/22/2017 Comp Metabolic Tfp041 Osmo 281 mOsmo 03/22/2017 Lipase Ouq176 LIPASE 12 U/L 03/22/2017 Comp Metabolic Sbj397 NA 142 mEq/L 03/09/2017 Comp Metabolic Uvp192 K 4.8 mEq/L 03/09/2017 Comp Metabolic Yin504 CL 103 mEq/L 03/09/2017 Comp Metabolic Gyw073 CO2 30.0 mEq/L 03/09/2017 Comp Metabolic Oso905 ANION GAP 14 03/09/2017 Comp Metabolic Ueu585 GLUCOSE 152 mg/dL 03/09/2017 Comp Metabolic Ffn721 Creat 1.3 mg/dL 03/09/2017 Comp Metabolic Uri729 eGFR 56 ml/min/1.73m2 03/09/2017 Comp Metabolic Eyb720 BUN 23 mg/dL 03/09/2017 Comp Metabolic Uys513 B/C Ratio 17.3 Ratio 03/09/2017 Comp Metabolic Vlc369 CALCIUM 8.5 mg/dL 03/09/2017 Comp Metabolic Fed571 ALK PHOS 97 U/L 03/09/2017 Comp Metabolic Xuu492 AST(SGOT) 10 U/L 03/09/2017 Comp Metabolic Cuq219 ALT(SGPT) 6 U/L 03/09/2017 Comp Metabolic Pun250 BILI T 0.4 mg/dL 03/09/2017 Comp Metabolic Afw811 ALBUMIN 3.4 g/dL 03/09/2017 Comp Metabolic Lpy026 TPRO 6.2 g/dL 03/09/2017 Comp Metabolic Bxr936 GLOB 2.8 g/dL 03/09/2017 Comp Metabolic Jas586 A/G Ratio 1.2 Ratio 03/09/2017 Comp Metabolic Rmj817 Osmo 290 mOsmo 03/09/2017 Free T4 Bka771 FREE T4 0.86 ng/dL 03/08/2017 Cbc With [...] 28.2 pg 03/08/2017 Cbc With Differential Ord2 [place]% 8.7 % 03/08/2017 Cbc With Differential Ord2 [...] 1.63 K/ul 03/08/2017 Cbc With Differential Ord2 [place] ABS# 0.9 K/ul 03/08/2017 Cbc With Differential Ord2 Eos ABS# 0.5 K/ul 03/08/2017 Cbc With Differential Ord2 Baso ABS# 0.0 K/ul 03/08/2017 Tsh Ord6 hTSH II 4.52 uIU/mL 03/08/2017 %Hba1C Bbk503 % HbA1c 16420- 6 8.5 % 03/08/2017 %Hba1C Xqc533 Gluc Ave 197 mg/dL 03/08/2017 %Hba1C Ydt949 % HbA1c 44340- 6 9.8 % 12/04/2016 %Hba1C Syl280 Gluc Ave 235 mg/dL 12/04/2016 Tsh Ord6 hTSH II 10.65 uIU/mL 11/30/2016 Comp Metabolic Qqx337 NA 134 mEq/L 11/30/2016 Comp Metabolic Wvu680 K 5.0 mEq/L 11/30/2016 Comp Metabolic Zwf468 CL 95 mEq/L 11/30/2016 Comp Metabolic Ted395 CO2 34.0 mEq/L 11/30/2016 Comp Metabolic Rct950 ANION GAP 10 11/30/2016 Comp Metabolic Ffc611 GLUCOSE 226 mg/dL 11/30/2016 Comp Metabolic Fvt919 Creat 1.3 mg/dL 11/30/2016 Comp Metabolic Grt530 eGFR 56 ml/min/1.73m2 11/30/2016 Comp Metabolic Zkn857 BUN 21 mg/dL 11/30/2016 Comp Metabolic Zon796 B/C Ratio 15.7 Ratio 11/30/2016 Comp Metabolic Erf821 CALCIUM 8.9 mg/dL 11/30/2016 Comp Metabolic Wkw022 ALK PHOS 112 U/L 11/30/2016 Comp Metabolic Fzd086 AST(SGOT) 9 U/L 11/30/2016 Comp Metabolic Osk600 ALT(SGPT) 7 U/L 11/30/2016 Comp Metabolic Cco747 BILI T 0.6 mg/dL 11/30/2016 Comp Metabolic Aph773 ALBUMIN 3.6 g/dL 11/30/2016 Comp Metabolic Rrh015 TPRO 6.4 g/dL 11/30/2016 Comp Metabolic Kcw370 GLOB 2.9 g/dL 11/30/2016 Comp Metabolic Kby881 A/G Ratio 1.2 Ratio 11/30/2016 Comp Metabolic Mhj285 Osmo 278 mOsmo 11/30/2016 Lipid Ord30 CHOL [...] 13.0 % 11/30/2016 Cbc With Differential Ord2 [place]% 7.9 % 11/30/2016 Cbc With Differential Ord2 [...] 1.34 K/ul 11/30/2016 Cbc With Differential Ord2 [place] ABS# 0.8 K/ul 11/30/2016 Cbc With Differential Ord2 Eos ABS# 0.3 K/ul 11/30/2016 Cbc With Differential Ord2 Baso ABS# 0.0 K/ul 11/30/2016 Free T4 Asr313 FREE T4 0.89 ng/dL 11/30/2016 Review of Systems System Result Effective Dates Constitutional recent illness 03/22/2017 Constitutional No anorexia [...] kyphosis 03/22/2017 None Full Exam - General 1995 Musculoskeletal [...] Codes Date URINALYSIS NONAUTO W/O SCOPE CPT-4: 54146Yjobthh 03/22/2017 URINALYSIS NONAUTO W/O SCOPE CPT-4: 27180Boafunl 03/21/2017 PPPS, SUBSEQ VISIT CPT-4: Y6467Mwvcofe 11/30/2016 PNEUMOCOCCAL VACC 13 JAVIER IM Formatting Model/CDA Sections, Assigned to SNOMED CT: 78480139 CPT-4: 72927Nbrhywy 11/30/2016 ADMIN PNEUMOCOCCAL VACCINE SNOMED CT: 45581716 CPT-4: H5174Fxnmhnf 11/30/2016 Vital Signs Date Vital 03/22/2017 Blood Pressure 1: 122/64 Code: 8480-6 BMI: 40.0 Code: 86193-2 Heart Rate 1: 52 bpm Height: 5'10" SpO2: 94% Weight: 279 lbs 03/08/2017 Blood Pressure 1: 124/70 Code: 8480-6 BMI: 39.4 Code: 91650-5 Heart Rate 1: 51 bpm Height: 5'10" SpO2: 94% Weight: 274 lbs 8 oz 12/06/2016 Blood Pressure 1: 126/62 Code: 8480-6 BMI: 40.3 Code: 42121-0 Heart Rate 1: 50 bpm Height: 5'10" SpO2: 94% Weight: 281 lbs 11/30/2016 Blood Pressure 1: 112/62 Code: 8480-6 BMI: 40.3 Code: 67718-6 Heart Rate 1: 52 bpm Height: 5'10" SpO2: 93% Waist Measure (cm): 135 cm Weight: 281 lbs 11/28/2016 Blood Pressure 1: 132/72 Code: 8480-6 BMI: 40.3 Code: 75727-1 Heart Rate 1: 50 bpm Height: 5'10" Weight: 281 lbs 05/04/2016 Blood Pressure 1: 128/78 Code: 8480-6 BMI: 38.5 Code: 61899-9 Heart Rate 1: 74 bpm Height: 5'10" SpO2: 98% Weight: 268 lbs 8 oz 11/04/2015 Blood Pressure 1: 136/60 Code: 8480-6 BMI: 38.0 Code: 21767-8 Heart Rate 1: 55 bpm Height: 5'10" SpO2: 94% Weight: 265 lbs 07/30/2015 Blood Pressure 1: 128/74 Code: 8480-6 BMI: 38.0 Code: 60579-9 Heart Rate 1: 47 bpm Height: 5'10" SpO2: 97% Weight: 265 lbs 01/26/2015 Blood Pressure 1: 122/64 Code: 8480-6 BMI: 34.0 Code: 71148-4 Heart Rate 1: 68 bpm Height: 5'10" Weight: 237 lbs Functional Status No Functional Status data History of Present Illness Symptom Name Status Result Effective Date Notes cellulitis Quality acute 03/22/2017 None cellulitis Onset [...] data Encounters Encounter Performer Location Codes Date ([id number]) 11960 EST. PATIENT, LEVEL IV Diagnosis: Cellulitis of left lower limb[ICD10: L03.116] Diagnosis: Chronic gout due to renal impairment, left ankle and foot, without tophus (tophi)[ICD10: M1A.3720] Diagnosis: Localized edema[ICD10: R60.0] Diagnosis: Type 2 diabetes mellitus with hyperglycemia[ICD10: E11.65] Diagnosis: Dysuria[ICD10: R30.0] Sarah Sanchez MD [facility] CPT-4: 49610 03/22/2017 ([id number]) 82471 EST. PATIENT, LEVEL IV Diagnosis: Type 2 diabetes mellitus with hyperglycemia[ICD10: E11.65] Diagnosis: Other specified hypothyroidism[ICD10: E03.8] Diagnosis: Essential (primary) hypertension[ICD10: I10] Sarah Sanchez MD [facility] CPT-4: 52196 03/08/2017 ([id number]) 89156 EST. PATIENT, LEVEL III Diagnosis: Type 2 diabetes mellitus with hyperglycemia[ICD10: E11.65] Diagnosis: Other specified hypothyroidism[ICD10: E03.8] Sarah Sanchez MD [facility] CPT-4: 72172 12/06/2016 ([id number]) 35043 EST. PATIENT, LEVEL IV Diagnosis: Essential (primary) hypertension[ICD10: I10] Diagnosis: Chronic kidney disease, stage 3 (moderate)[ICD10: N18.3] Dorene Sanchez MD, [facility] CPT-4: 79259 11/28/2016 ([id number]) 57369 EST. PATIENT, LEVEL IV Diagnosis: Essential (primary) hypertension[ICD10: I10] Diagnosis: Chronic pain syndrome[ICD10: G89.4] Diagnosis: Chronic kidney disease, stage 3 (moderate)[ICD10: N18.3] Diagnosis: Vitamin B12 deficiency anemia due to intrinsic factor deficiency[ICD10: D51.0] Diagnosis: Other specified hypothyroidism[ICD10: E03.8] Dorene Sanchez MD, [facility] CPT-4: 77849 05/04/2016 [id number] EST. PATIENT, LEVEL III Diagnosis: Chronic pain syndrome[ICD10: G89.4] Diagnosis: Essential (primary) hypertension[ICD10: I10] Diagnosis: Other specified hypothyroidism[ICD10: E03.8] Kiki Sanchez MD, [facility] CPT-4: 98170 11/04/2015 [id number] EST. PATIENT, LEVEL III Diagnosis: Chronic pain syndrome[ICD10: G89.4] Diagnosis: Essential (primary) hypertension[ICD10: I10] Kiki Sanchez MD, [facility] CPT-4: 24997 07/30/2015 ([id number]) OFFICE/OUTPATIENT VISIT NEW Diagnosis: ESSENTIAL HYPERTENSION[ICD9: 401.9] Diagnosis: HYPOTHYROIDISM[ICD9: 244.9] Diagnosis: ANEMIA[ICD9: 285.9] Diagnosis: Vitamin B12 deficiency[ICD9: 266.2] Diagnosis: CHRONIC PAIN SYNDROME[ICD9: 338.4] Diagnosis: Chronic renal insufficiency, stage III (moderate)[ICD9: 585.3] Diagnosis: GOUT[ICD9: 274.9] Dorene Sanchez MD, [facility] CPT-4: 74349 01/26/2015 Plan of Care Planned Activity Notes Codes Status Date Visit Plan: Cellulitis-left lower leg-recommended patient be [...] 50-recommend patient stop the indomethacin-stop aleve 03/22/2017 Patient Education: Patient Medication Summary Completed [...] of control. 03/08/2017 Appointment: [phone] (30 min) Complex 03/08/2017 Patient Education: [...] care surrogate. 11/30/2016 Appointment: [facility] Hernandes [facility]el[phone] [facility] - Annual Wellness Visit 11/30/2016 Patient Education: [...] in fluids. 11/28/2016 [facility]ment[phone] [id number] (15 min) Moderate [...] repeat labs in 3 months-sooner if needed WRAP LEGS-THIGHS TO TOES LEVAQUIN 500MG DAILY [...] YEAR SHINGLES VACCINATION TO BE ADMINISTERED AT [facility] OBTAINING MEDICAL POWER OF CORRECTIONAL SUPPLY SUPERVISOR AND LIVING WILL PATIENT DOES NOT [...] YEAR SHINGLES VACCINATION TO BE ADMINISTERED AT [facility] OBTAINING MEDICAL POWER OF CORRECTIONAL SUPPLY SUPERVISOR AND LIVING WILL PATIENT DOES NOT [...] YEAR SHINGLES VACCINATION TO BE ADMINISTERED AT [facility] OBTAINING MEDICAL POWER OF CORRECTIONAL SUPPLY SUPERVISOR AND LIVING WILL PATIENT DOES NOT [...]
--- OUTSIDE RECORDS SUMMARY | 2019-03-24 08:26 | XMS REPORT | CCD ---
Author Author Dorene Sanchez Organization [facility] Address [address] [place] [address] Phone Care Team Providers Care Molecular Geneticist Name Role Phone PP Unavailable CCM Unavailable Summary Purpose Interface Exchange Insurance Providers Payer name Policy type / Coverage type Covered green party ID Effective Begin Date Effective End Date WPS Medicare Part B Medicare Part B [id number] Unknown Unknown Family history Father Diagnosis Age At Onset Stroke Unknown Mother Diagnosis Age At Onset Stroke Unknown Diabetes mellitus Type 2 Unknown Social History Social History Element Codes Description Effective Dates Tobacco history SNOMED CT: 135663308 Currently uses smokeless tobacco Chews 05/04/2016 Marital status Unknown 01/26/2015 Number of children Unknown 3 01/26/2015 Employment Unknown Retired 01/26/[address]: 004419027 Never drinks alcohol quit in July 2014 [...] 9: 338.4 ICD-10: G89.4 Active 01/25/2015 Unknown Localized edema ICD-9: 782.3 ICD-10: R60.0 Active 03/22/2017 Unknown Type 2 diabetes mellitus with hyperglycemia ICD-9: 250.00 ICD-10: E11.65 Active 12/06/2016 Unknown Dysuria ICD-9: 788.1 ICD-10: R30.0 Active 03/21/2017 Unknown Diabetes Unknown Active 03/08/2017 Unknown Essential [...] ICD- 9: 338.4 ICD-10: G89.4 01/25/2015 Active Localized edema ICD-9: 782.3 ICD-10: R60.0 03/22/2017 Active Type 2 diabetes mellitus with hyperglycemia ICD-9: 250.00 ICD-10: E11.65 12/06/2016 Active Dysuria ICD-9: 788.1 ICD-10: R30.0 03/21/2017 Active Diabetes Unknown 03/08/2017 Active Essential (primary) [...] Fill Instructions indomethacin 25 mg capsule RxNorm: 743777 1 Capsule(s) PO TID PRN 03/22/2017 03/22/2017 Inactive Lasix 20 mg tablet RxNorm: 436180 1 Tablet(s) PO QDAY PRN 03/22/2017 No Stop Date Active daily x 5 days then as needed Levaquin 500 mg tablet RxNorm: 160117 1 Tablet(s) PO daily 03/22/2017 03/31/2017 Active potassium chloride ER 10 mEq capsule,extended release RxNorm: 917397 1 Capsule(s) PO QDAY PRN 03/22/2017 No Stop Date Active daily x 5 days then as needed with lasix oxycodone 20 mg tablet RxNorm: 9270604 1/2 Tablet(s) PO Q6 as needed 03/08/2017 04/06/2017 Active bisoprolol 5 mg-hydrochlorothiazide 6.25 mg tablet RxNorm: 302078 TAKE ONE TABLET BY MOUTH DAILY 02/14/2017 05/14/2017 Active oxycodone 20 mg tablet RxNorm: 1888821 1/2 Tablet(s) PO Q6 as needed 02/08/2017 03/07/2017 Inactive oxycodone 20 mg tablet RxNorm: 2628039 1/2 Tablet(s) PO Q6 as needed 01/08/2017 02/06/2017 Inactive levothyroxine 175 mcg tablet RxNorm: 625001 1 Tablet(s) PO daily 12/06/2016 06/03/2017 Active [SAVINGS FOR NON-COVERED DRUGS -- BIN:[id number], PCN: ASPROD1, Group: XXXXX, ID# [id number], Questions: . THIS IS NOT INSURANCE.] oxycodone 20 mg tablet RxNorm: 1432766 1/2 Tablet(s) PO Q6 as needed 12/04/2016 01/02/2017 Inactive oxycodone 20 mg tablet RxNorm: 9070474 1/2 Tablet(s) PO Q6 as needed 11/09/2016 12/03/2016 Inactive bisoprolol 5 mg-hydrochlorothiazide 6.25 mg tablet RxNorm: 770715 TAKE ONE TABLET BY MOUTH DAILY 11/08/2016 02/05/2017 Inactive oxycodone 20 mg tablet RxNorm: 3029057 1/2 Tablet(s) PO Q6 as needed 10/05/2016 11/03/2016 Inactive oxycodone 20 mg tablet RxNorm: 6190409 1/2 Tablet(s) PO Q6 as needed 09/06/2016 10/04/2016 Inactive oxycodone 20 mg tablet RxNorm: 7572140 1/2 Tablet(s) PO Q6 as needed 08/07/2016 09/05/2016 Inactive oxycodone 20 mg tablet RxNorm: 9581163 1/2 Tablet(s) PO Q6 as needed 07/04/2016 08/06/2016 Inactive oxycodone 20 mg tablet RxNorm: 6420132 1/2 Tablet(s) PO Q6 as needed 05/29/2016 07/03/2016 Inactive levothyroxine 150 mcg tablet RxNorm: 028924 1 Tablet(s) PO daily 04/10/2016 04/09/2016 Inactive [SAVINGS FOR NON-COVERED DRUGS -- BIN:[id number], PCN: ASPROD1, Group: XXXXX, ID# XXXXXXX, Questions: . THIS IS NOT INSURANCE.] oxycodone 20 mg tablet RxNorm: 1072257 1/2 Tablet(s) PO Q6 as needed 04/10/2016 05/28/2016 Inactive levothyroxine 150 mcg tablet RxNorm: 426407 1 Tablet(s) PO daily 04/10/2016 10/06/2016 Inactive [SAVINGS FOR NON-COVERED DRUGS -- BIN:[id number], PCN: ASPROD1, Group: XXXXX, ID# [id number], Questions: . THIS IS NOT INSURANCE.] bisoprolol 5 mg-hydrochlorothiazide 6.25 mg tablet RxNorm: 209895 1 Tablet(s) PO daily 02/16/2016 05/15/2016 Inactive oxycodone 20 mg tablet RxNorm: 7662381 1/2 Tablet(s) PO Q6 as needed 02/16/2016 04/09/2016 Inactive oxycodone 20 mg tablet RxNorm: 5807643 1/2 Tablet(s) PO Q6 as needed 01/04/2016 02/15/2016 Inactive bisoprolol 5 mg-hydrochlorothiazide 6.25 mg tablet RxNorm: 768570 1 Tablet(s) PO daily 11/19/2015 01/17/2016 Inactive bisoprolol 5 mg-hydrochlorothiazide 6.25 mg tablet RxNorm: 214052 1 Tablet(s) PO daily 11/04/2015 11/18/2015 Inactive oxycodone 20 mg tablet RxNorm: 0885104 1/2 Tablet(s) PO Q6 as needed 10/27/2015 01/03/2016 Inactive levothyroxine 150 mcg tablet RxNorm: 051360 1 Tablet(s) PO daily 08/26/2015 02/21/2016 Inactive [SAVINGS FOR NON-COVERED DRUGS -- BIN:[id number], PCN: ASPROD1, Group: XXXXX, ID# XXXXXXX, Questions: . THIS IS NOT INSURANCE.] bisoprolol 5 mg-hydrochlorothiazide 6.25 mg tablet RxNorm: 374666 1 Tablet(s) PO daily 08/26/2015 10/24/2015 Inactive oxycodone 10 mg tablet RxNorm: 7262047 1 Tablet(s) PO Q6 as needed 05/06/2015 10/26/2015 Inactive levothyroxine 150 mcg tablet RxNorm: 869133 1 Tablet(s) PO daily 02/05/2015 08/03/2015 Inactive [SAVINGS FOR NON-COVERED DRUGS -- BIN:[id number], PCN: ASPROD1, Group: XXXXX, ID# XXXXXXX, Questions: . THIS IS NOT INSURANCE.] Vitamin D2 50,000 unit capsule RxNorm: 038446 1 Capsule(s) PO weekly 02/05/2015 05/05/2015 Inactive [SAVINGS FOR NON-COVERED DRUGS -- BIN:707577, PCN: ASPROD1, Group: XXXXX, ID# XXXXXXX, Questions: . THIS IS NOT INSURANCE.] Vitamin D2 50,000 unit capsule RxNorm: 184661 1 Capsule(s) PO weekly 02/05/2015 02/04/2015 Inactive bisoprolol 5 mg-hydrochlorothiazide 6.25 mg tablet RxNorm: 755073 1 Tablet(s) PO daily 01/26/2015 02/24/2015 Inactive levothyroxine 200 mcg tablet RxNorm: 460258 1 Tablet(s) PO daily 01/26/2015 01/25/2015 Inactive levothyroxine 200 mcg tablet RxNorm: 999502 1 Tablet(s) PO every other day 01/26/2015 02/04/2015 Inactive [SAVINGS FOR NON-COVERED DRUGS -- BIN:927126, PCN: ASPROD1, Group: XXXXX, ID# XXXXXXX, Questions: . THIS IS NOT INSURANCE.] aspirin 325 mg tablet RxNorm: 211549 1 Tablet(s) PO daily No Start Date 05/03/2016 Inactive levothyroxine 75 mcg tablet RxNorm: 829941 1 Tablet(s) PO every other day No Start Date 02/04/2015 Inactive takes qod with 200mcg oxycodone 10 mg tablet RxNorm: 7292572 1 Tablet(s) PO Q6 as needed No [...] 250.00 03/22/2017 Dysuria ICD-10: R30.0 ICD-9: 788.1 03/21/2017 Other specified hypothyroidism ICD-10: E03.8 ICD-9: 244.9 [...] pg 03/22/2017 Cbc With Differential Ord2 [place]% 8.3 % 03/22/2017 Cbc With Differential Ord2 [...] K/ul 03/22/2017 Cbc With Differential Ord2 [place] ABS# 1.4 K/ul 03/22/2017 Cbc With Differential Ord2 Eos ABS# 0.2 K/ul 03/22/2017 Cbc With Differential Ord2 Baso ABS# 0.0 K/ul 03/22/2017 Comp Metabolic Gkw661 NA 134 mEq/L 03/22/2017 Comp Metabolic Skh711 K 4.5 mEq/L 03/22/2017 Comp Metabolic Obi847 CL 93 mEq/L 03/22/2017 Comp Metabolic Qxf264 CO2 31.0 mEq/L 03/22/2017 Comp Metabolic Fdl578 ANION GAP 15 03/22/2017 Comp Metabolic Ldj831 GLUCOSE 198 mg/dL 03/22/2017 Comp Metabolic Fsb036 Creat 1.5 mg/dL 03/22/2017 Comp Metabolic Eat228 eGFR 50 ml/min/1.73m2 03/22/2017 Comp Metabolic Hma193 BUN 32 mg/dL 03/22/2017 Comp Metabolic Idk761 B/C Ratio 21.6 Ratio 03/22/2017 Comp Metabolic Kup563 CALCIUM 8.4 mg/dL 03/22/2017 Comp Metabolic Peg826 ALK PHOS 245 U/L 03/22/2017 Comp Metabolic Www609 AST(SGOT) 18 U/L 03/22/2017 Comp Metabolic Gwh780 ALT(SGPT) 17 U/L 03/22/2017 Comp Metabolic Mgd118 BILI T 0.8 mg/dL 03/22/2017 Comp Metabolic Tyf660 ALBUMIN 2.9 g/dL 03/22/2017 Comp Metabolic Rll345 TPRO 6.3 g/dL 03/22/2017 Comp Metabolic Qqz198 GLOB 3.4 g/dL 03/22/2017 Comp Metabolic Yaz402 A/G Ratio 0.8 Ratio 03/22/2017 Comp Metabolic Ift489 Osmo 281 mOsmo 03/22/2017 Lipase Xug436 LIPASE 12 U/L 03/22/2017 Comp Metabolic Tzw237 NA 142 mEq/L 03/09/2017 Comp Metabolic Fug647 K 4.8 mEq/L 03/09/2017 Comp Metabolic Tne150 CL 103 mEq/L 03/09/2017 Comp Metabolic Rgq196 CO2 30.0 mEq/L 03/09/2017 Comp Metabolic Ukr963 ANION GAP 14 03/09/2017 Comp Metabolic Cgr187 GLUCOSE 152 mg/dL 03/09/2017 Comp Metabolic Epm235 Creat 1.3 mg/dL 03/09/2017 Comp Metabolic Heh186 eGFR 56 ml/min/1.73m2 03/09/2017 Comp Metabolic Ulm838 BUN 23 mg/dL 03/09/2017 Comp Metabolic Kht659 B/C Ratio 17.3 Ratio 03/09/2017 Comp Metabolic Gez071 CALCIUM 8.5 mg/dL 03/09/2017 Comp Metabolic Fmk119 ALK PHOS 97 U/L 03/09/2017 Comp Metabolic Yzt834 AST(SGOT) 10 U/L 03/09/2017 Comp Metabolic Din863 ALT(SGPT) 6 U/L 03/09/2017 Comp Metabolic Exk125 BILI T 0.4 mg/dL 03/09/2017 Comp Metabolic Miv497 ALBUMIN 3.4 g/dL 03/09/2017 Comp Metabolic Rmz769 TPRO 6.2 g/dL 03/09/2017 Comp Metabolic Mof668 GLOB 2.8 g/dL 03/09/2017 Comp Metabolic Mxd137 A/G Ratio 1.2 Ratio 03/09/2017 Comp Metabolic Mal751 Osmo 290 mOsmo 03/09/2017 Free T4 Yrg180 FREE T4 0.86 ng/dL 03/08/2017 Cbc With [...] pg 03/08/2017 Cbc With Differential Ord2 [place]% 8.7 % 03/08/2017 Cbc With Differential Ord2 [...] K/ul 03/08/2017 Cbc With Differential Ord2 [place] ABS# 0.9 K/ul 03/08/2017 Cbc With Differential Ord2 Eos ABS# 0.5 K/ul 03/08/2017 Cbc With Differential Ord2 Baso ABS# 0.0 K/ul 03/08/2017 Tsh Ord6 hTSH II 4.52 uIU/mL 03/08/2017 %Hba1C Tvu146 % HbA1c 66021- 6 8.5 % 03/08/2017 %Hba1C Tyo003 Gluc Ave 197 mg/dL 03/08/2017 %Hba1C Lsx263 % HbA1c 14242- 6 9.8 % 12/04/2016 %Hba1C Ilw919 Gluc Ave 235 mg/dL 12/04/2016 Tsh Ord6 hTSH II 10.65 uIU/mL 11/30/2016 Comp Metabolic Dja227 NA 134 mEq/L 11/30/2016 Comp Metabolic Bpt456 K 5.0 mEq/L 11/30/2016 Comp Metabolic Gfk506 CL 95 mEq/L 11/30/2016 Comp Metabolic Qer324 CO2 34.0 mEq/L 11/30/2016 Comp Metabolic Olj127 ANION GAP 10 11/30/2016 Comp Metabolic Ivb902 GLUCOSE 226 mg/dL 11/30/2016 Comp Metabolic Opj359 Creat 1.3 mg/dL 11/30/2016 Comp Metabolic Ucj705 eGFR 56 ml/min/1.73m2 11/30/2016 Comp Metabolic Oln165 BUN 21 mg/dL 11/30/2016 Comp Metabolic Qgr095 B/C Ratio 15.7 Ratio 11/30/2016 Comp Metabolic Xda540 CALCIUM 8.9 mg/dL 11/30/2016 Comp Metabolic Moz635 ALK PHOS 112 U/L 11/30/2016 Comp Metabolic Iwq954 AST(SGOT) 9 U/L 11/30/2016 Comp Metabolic Xbp024 ALT(SGPT) 7 U/L 11/30/2016 Comp Metabolic Yrq029 BILI T 0.6 mg/dL 11/30/2016 Comp Metabolic Yda831 ALBUMIN 3.6 g/dL 11/30/2016 Comp Metabolic Kvm667 TPRO 6.4 g/dL 11/30/2016 Comp Metabolic Ibt714 GLOB 2.9 g/dL 11/30/2016 Comp Metabolic Qle306 A/G Ratio 1.2 Ratio 11/30/2016 Comp Metabolic Otv449 Osmo 278 mOsmo 11/30/2016 Lipid Ord30 CHOL [...] % 11/30/2016 Cbc With Differential Ord2 [place]% 7.9 % 11/30/2016 Cbc With Differential Ord2 [...] K/ul 11/30/2016 Cbc With Differential Ord2 [place] ABS# 0.8 K/ul 11/30/2016 Cbc With Differential Ord2 Eos ABS# 0.3 K/ul 11/30/2016 Cbc With Differential Ord2 Baso ABS# 0.0 K/ul 11/30/2016 Free T4 Wkw958 FREE T4 0.89 ng/dL 11/30/2016 Review of [...] Codes Date URINALYSIS NONAUTO W/O SCOPE CPT-4: 08523Aalnrwy 03/21/2017 PPPS, SUBSEQ VISIT CPT-4: Y9932Dvrtuhs 11/30/2016 PNEUMOCOCCAL VACC 13 JAVIER IM Formatting Model/CDA Sections, Assigned to SNOMED CT: 22654130 CPT-4: 33849Czahvjp 11/30/2016 ADMIN PNEUMOCOCCAL VACCINE SNOMED CT: 77480898 CPT-4: N9538Sqflaxl 11/30/2016 Vital Signs Date Vital 03/22/2017 Blood Pressure 1: 122/64 Code: 8480-6 BMI: 40.0 Code: 32863-1 Heart Rate 1: 52 bpm Height: 5'10" SpO2: 94% Weight: 279 lbs 03/08/2017 Blood Pressure 1: 124/70 Code: 8480-6 BMI: 39.4 Code: 59402-7 Heart Rate 1: 51 bpm Height: 5'10" SpO2: 94% Weight: 274 lbs 8 oz 12/06/2016 Blood Pressure 1: 126/62 Code: 8480-6 BMI: 40.3 Code: 88910-7 Heart Rate 1: 50 bpm Height: 5'10" SpO2: 94% Weight: 281 lbs 11/30/2016 Blood Pressure 1: 112/62 Code: 8480-6 BMI: 40.3 Code: 70797-4 Heart Rate 1: 52 bpm Height: 5'10" SpO2: 93% Waist Measure (cm): 135 cm Weight: 281 lbs 11/28/2016 Blood Pressure 1: 132/72 Code: 8480-6 BMI: 40.3 Code: 93568-5 Heart Rate 1: 50 bpm Height: 5'10" Weight: 281 lbs 05/04/2016 Blood Pressure 1: 128/78 Code: 8480-6 BMI: 38.5 Code: 70607-0 Heart Rate 1: 74 bpm Height: 5'10" SpO2: 98% Weight: 268 lbs 8 oz 11/04/2015 Blood Pressure 1: 136/60 Code: 8480-6 BMI: 38.0 Code: 52538-8 Heart Rate 1: 55 bpm Height: 5'10" SpO2: 94% Weight: 265 lbs 07/30/2015 Blood Pressure 1: 128/74 Code: 8480-6 BMI: 38.0 Code: 80554-1 Heart Rate 1: 47 bpm Height: 5'10" SpO2: 97% Weight: 265 lbs 01/26/2015 Blood Pressure 1: 122/64 Code: 8480-6 BMI: 34.0 Code: 47027-0 Heart Rate 1: 68 bpm Height: 5'10" [...] data Encounters Encounter Performer Location Codes Date ([id number]) [id number] EST. PATIENT, LEVEL IV Diagnosis: Cellulitis of left lower limb[ICD10: L03.116] Diagnosis: Chronic gout due to renal impairment, left ankle and foot, without tophus (tophi)[ICD10: M1A.3720] Diagnosis: Localized edema[ICD10: R60.0] Diagnosis: Type 2 diabetes mellitus with hyperglycemia[ICD10: E11.65] Sarah Sanchez MD, [facility] CPT-4: 93017 03/22/2017 ([id number]) 78238 EST. PATIENT, LEVEL IV Diagnosis: Type 2 diabetes mellitus with hyperglycemia[ICD10: E11.65] Diagnosis: Other specified hypothyroidism[ICD10: E03.8] Diagnosis: Essential (primary) hypertension[ICD10: I10] Sarah Sanchez MD, [facility] CPT-4: 83924 03/08/2017 ([id number]) 53431 EST. PATIENT, LEVEL III Diagnosis: Type 2 diabetes mellitus with hyperglycemia[ICD10: E11.65] Diagnosis: Other specified hypothyroidism[ICD10: E03.8] Sarah Sanchez MD, [facility] CPT-4: 11737 12/06/2016 ([id number]) 62208 EST. PATIENT, LEVEL IV Diagnosis: Essential (primary) hypertension[ICD10: I10] Diagnosis: Chronic kidney disease, stage 3 (moderate)[ICD10: N18.3] Dorene Sanchez MD, [facility] CPT-4: 65772 11/28/2016 ([id number]) 66610 EST. PATIENT, LEVEL IV Diagnosis: Essential (primary) hypertension[ICD10: I10] Diagnosis: Chronic pain syndrome[ICD10: G89.4] Diagnosis: Chronic kidney disease, stage 3 (moderate)[ICD10: N18.3] Diagnosis: Vitamin B12 deficiency anemia due to intrinsic factor deficiency[ICD10: D51.0] Diagnosis: Other specified hypothyroidism[ICD10: E03.8] Dorene Sanchez MD, [facility] CPT-4: 72326 05/04/2016 [id number] EST. PATIENT, LEVEL III Diagnosis: Chronic pain syndrome[ICD10: G89.4] Diagnosis: Essential (primary) hypertension[ICD10: I10] Diagnosis: Other specified hypothyroidism[ICD10: E03.8] Kiki Sanchez MD, [facility] CPT-4: 61310 11/04/2015 81619 EST. PATIENT, LEVEL III Diagnosis: Chronic pain syndrome[ICD10: G89.4] Diagnosis: Essential (primary) hypertension[ICD10: I10] Kiki Sanchez MD, [facility] CPT-4: 51795 07/30/2015 ([id number]) OFFICE/OUTPATIENT VISIT NEW Diagnosis: ESSENTIAL HYPERTENSION[ICD9: 401.9] Diagnosis: HYPOTHYROIDISM[ICD9: 244.9] Diagnosis: ANEMIA[ICD9: 285.9] Diagnosis: Vitamin B12 deficiency[ICD9: 266.2] Diagnosis: CHRONIC PAIN SYNDROME[ICD9: 338.4] Diagnosis: Chronic renal insufficiency, stage III (moderate)[ICD9: 585.3] Diagnosis: GOUT[ICD9: 274.9] [facility] CPT-4: 70146 01/26/2015 Plan of Care Planned Activity Notes [...] control. 03/08/2017 Appointment: Sarah Hernandes WPtel: [address] [place], [place] [phone] (30 min) Complex 03/08/2017 Patient Education: Patient [...] surrogate. 11/30/2016 Appointment: Sarah Hernandes WPtel[phone] [facility] - Annual Wellness Visit 11/30/2016 Patient Education: [...] in fluids. 11/28/2016 Appointment: [facility] Sanchez WPtel[phone] (15 min) Moderate 11/28/2016 Patient [...] [facility] RECOM[facility]END OBTAINING MEDICAL POWER OF WORKS MANAGER AND LIVING WILL PATIENT DOES NOT [...] YEAR SHINGLES VACCINATION TO BE ADMINISTERED AT [facility] RECOMMEND OBTAINING MEDICAL POWER OF WORKS MANAGER AND LIVING WILL PATIENT DOES NOT [...] YEAR SHINGLES VACCINATION TO BE ADMINISTERED AT [facility] RECOMMEND OBTAINING MEDICAL POWER OF WORKS MANAGER AND LIVING WILL PATIENT DOES NOT [...]
--- OUTSIDE RECORDS SUMMARY | 2019-03-24 08:27 | XMS REPORT | CCD ---
Author Author Dorene Sanchez Organization [facility] Address [address] [place] [address] Phone Care Team Providers Care Finisher Machine Name Role Phone PP Unavailable CCM Unavailable Summary Purpose Interface Exchange Insurance Providers Payer name Policy type / Coverage type Covered constitution party ID Effective Begin Date Effective End Date WPS Medicare Part B Medicare Part B [id number] Unknown Unknown Family history Father Diagnosis Age At Onset Stroke Unknown Mother Diagnosis Age At Onset Stroke Unknown Diabetes mellitus Type 2 Unknown Social History Social History Element Codes Description Effective Dates Tobacco history SNOMED CT: 255568242 Currently uses smokeless tobacco Chews 05/04/2016 Marital status Unknown 01/26/2015 Number of children Unknown 3 01/26/2015 Employment Unknown Retired 01/26/[address]: 989506310 Never drinks alcohol quit in July 2014 [...] 9: 338.4 ICD-10: G89.4 Active 01/25/2015 Unknown Vitamin B12 deficiency anemia [...] ICD- 9: 338.4 ICD-10: G89.4 01/25/2015 Active Vitamin B12 deficiency anemia due [...] Fill Instructions oxycodone 20 mg tablet RxNorm: 5937181 1/2 Tablet(s) PO Q6 as needed 03/08/2017 04/06/2017 Active bisoprolol 5 mg-hydrochlorothiazide 6.25 mg tablet RxNorm: 935152 TAKE ONE TABLET BY MOUTH DAILY 02/14/2017 05/14/2017 Active oxycodone 20 mg tablet RxNorm: 5636692 1/2 Tablet(s) PO Q6 as needed 02/08/2017 03/07/2017 Inactive oxycodone 20 mg tablet RxNorm: 0508232 1/2 Tablet(s) PO Q6 as needed 01/08/2017 02/06/2017 Inactive levothyroxine 175 mcg tablet RxNorm: 525883 1 Tablet(s) PO daily 12/06/2016 06/03/2017 Active [SAVINGS FOR NON-COVERED DRUGS -- BIN:[id number], PCN: ASPROD1, Group: XXXXX, ID# [id number], Questions: . THIS IS NOT INSURANCE.] oxycodone 20 mg tablet RxNorm: 0939471 1/2 Tablet(s) PO Q6 as needed 12/04/2016 01/02/2017 Inactive oxycodone 20 mg tablet RxNorm: 9257562 1/2 Tablet(s) PO Q6 as needed 11/09/2016 12/03/2016 Inactive bisoprolol 5 mg-hydrochlorothiazide 6.25 mg tablet RxNorm: 261086 TAKE ONE TABLET BY MOUTH DAILY 11/08/2016 02/05/2017 Inactive oxycodone 20 mg tablet RxNorm: 4603304 1/2 Tablet(s) PO Q6 as needed 10/05/2016 11/03/2016 Inactive oxycodone 20 mg tablet RxNorm: 6117519 1/2 Tablet(s) PO Q6 as needed 09/06/2016 10/04/2016 Inactive oxycodone 20 mg tablet RxNorm: 1799805 1/2 Tablet(s) PO Q6 as needed 08/07/2016 09/05/2016 Inactive oxycodone 20 mg tablet RxNorm: 7695969 1/2 Tablet(s) PO Q6 as needed 07/04/2016 08/06/2016 Inactive oxycodone 20 mg tablet RxNorm: 8350903 1/2 Tablet(s) PO Q6 as needed 05/29/2016 07/03/2016 Inactive levothyroxine 150 mcg tablet RxNorm: 608149 1 Tablet(s) PO daily 04/10/2016 04/09/2016 Inactive [SAVINGS FOR NON-COVERED DRUGS -- BIN:[id number], PCN: ASPROD1, Group: XXXXX, ID# XXXXXXX, Questions: . THIS IS NOT INSURANCE.] oxycodone 20 mg tablet RxNorm: 4189528 1/2 Tablet(s) PO Q6 as needed 04/10/2016 05/28/2016 Inactive levothyroxine 150 mcg tablet RxNorm: 101361 1 Tablet(s) PO daily 04/10/2016 10/06/2016 Inactive [SAVINGS FOR NON-COVERED DRUGS -- BIN:[id number], PCN: ASPROD1, Group: XXXXX, ID# [id number], Questions: . THIS IS NOT INSURANCE.] bisoprolol 5 mg-hydrochlorothiazide 6.25 mg tablet RxNorm: 322609 1 Tablet(s) PO daily 02/16/2016 05/15/2016 Inactive oxycodone 20 mg tablet RxNorm: 1543438 1/2 Tablet(s) PO Q6 as needed 02/16/2016 04/09/2016 Inactive oxycodone 20 mg tablet RxNorm: 1394721 1/2 Tablet(s) PO Q6 as needed 01/04/2016 02/15/2016 Inactive bisoprolol 5 mg-hydrochlorothiazide 6.25 mg tablet RxNorm: 483752 1 Tablet(s) PO daily 11/19/2015 01/17/2016 Inactive bisoprolol 5 mg-hydrochlorothiazide 6.25 mg tablet RxNorm: 085332 1 Tablet(s) PO daily 11/04/2015 11/18/2015 Inactive oxycodone 20 mg tablet RxNorm: 8706187 1/2 Tablet(s) PO Q6 as needed 10/27/2015 01/03/2016 Inactive levothyroxine 150 mcg tablet RxNorm: 354964 1 Tablet(s) PO daily 08/26/2015 02/21/2016 Inactive [SAVINGS FOR NON-COVERED DRUGS -- BIN:[id number], PCN: ASPROD1, Group: XXXXX, ID# XXXXXXX, Questions: . THIS IS NOT INSURANCE.] bisoprolol 5 mg-hydrochlorothiazide 6.25 mg tablet RxNorm: 727988 1 Tablet(s) PO daily 08/26/2015 10/24/2015 Inactive oxycodone 10 mg tablet RxNorm: 4200898 1 Tablet(s) PO Q6 as needed 05/06/2015 10/26/2015 Inactive levothyroxine 150 mcg tablet RxNorm: 478206 1 Tablet(s) PO daily 02/05/2015 08/03/2015 Inactive [SAVINGS FOR NON-COVERED DRUGS -- BIN:[id number], PCN: ASPROD1, Group: XXXXX, ID# [id number], Questions: . THIS IS NOT INSURANCE.] Vitamin D2 50,000 unit capsule RxNorm: 029915 1 Capsule(s) PO weekly 02/05/2015 05/05/2015 Inactive [SAVINGS FOR NON-COVERED DRUGS -- BIN:121567, PCN: ASPROD1, Group: XXXXX, ID# XXXXXXX, Questions: . THIS IS NOT INSURANCE.] Vitamin D2 50,000 unit capsule RxNorm: 762213 1 Capsule(s) PO weekly 02/05/2015 02/04/2015 Inactive bisoprolol 5 mg-hydrochlorothiazide 6.25 mg tablet RxNorm: 146630 1 Tablet(s) PO daily 01/26/2015 02/24/2015 Inactive levothyroxine 200 mcg tablet RxNorm: 036975 1 Tablet(s) PO daily 01/26/2015 01/25/2015 Inactive levothyroxine 200 mcg tablet RxNorm: 951474 1 Tablet(s) PO every other day 01/26/2015 02/04/2015 Inactive [SAVINGS FOR NON-COVERED DRUGS -- BIN:[id number], N: ASPMANISH, Group: XXXXX, ID# XXXXXXX, Questions: . THIS IS NOT INSURANCE.] indomethacin oral RxNorm: 5781 oral No Start Date Active aspirin 325 mg tablet RxNorm: 915284 1 Tablet(s) PO daily No Start Date 05/03/2016 Inactive levothyroxine 75 mcg tablet RxNorm: 476855 1 Tablet(s) PO every other day No Start Date 02/04/2015 Inactive takes qod with 200mcg oxycodone 10 mg tablet RxNorm: 8035159 1 Tablet(s) PO Q6 as needed No Start Date 05/05/2015 Inactive Medication Administered No Medication Administered data Immunizations Vaccine Codes Date Status Pneumococcal (Adult) CVX: 133 11/30/2016 completed Assessments Condition Codes Effective Dates Dysuria ICD-10: R30.0 ICD-9: 788.1 03/21/2017 Other specified hypothyroidism ICD-10: E03.8 ICD-9: 244.9 03/08/2017 Essential (primary) hypertension ICD-10: I10 ICD-9: 401.9 03/08/2017 Type 2 diabetes mellitus with hyperglycemia ICD-10: E11.65 ICD-9: 250.00 03/08/2017 Encounter for general adult medical examination [...] For Visit Effective Dates Notes diabetes mellitus 03/08/2017 diabetes mellitus 12/06/2016 Annual Medicare Wellness Exam 11/30/2016 hypertension 11/28/2016 hypertension 05/04/2016 medication follow up 11/04/2015 medication follow up 07/30/2015 knee pain 01/26/2015 Dr. Tellez did scopes 12 years ago Results Observation Observation Code Item Item Code Result Date Cbc With Differential Ord2 WBC 16.93 K/ul [...] 27.9 pg 03/22/2017 Cbc With Differential Ord2 Davis% 8.3 % 03/22/2017 Cbc With Differential Ord2 [...] 1.35 K/ul 03/22/2017 Cbc With Differential Ord2 Davis ABS# 1.4 K/ul 03/22/2017 Cbc With Differential Ord2 Eos ABS# 0.2 K/ul 03/22/2017 Cbc With Differential Ord2 Baso ABS# 0.0 K/ul 03/22/2017 Comp Metabolic Luk213 NA 142 mEq/L 03/09/2017 Comp Metabolic Mtg106 K 4.8 mEq/L 03/09/2017 Comp Metabolic Jmy232 CL 103 mEq/L 03/09/2017 Comp Metabolic Qsk411 CO2 30.0 mEq/L 03/09/2017 Comp Metabolic Got645 ANION GAP 14 03/09/2017 Comp Metabolic Twc894 GLUCOSE 152 mg/dL 03/09/2017 Comp Metabolic Odb100 Creat 1.3 mg/dL 03/09/2017 Comp Metabolic Vnh719 eGFR 56 ml/min/1.73m2 03/09/2017 Comp Metabolic Waa564 BUN 23 mg/dL 03/09/2017 Comp Metabolic Wcz356 B/C Ratio 17.3 Ratio 03/09/2017 Comp Metabolic Lmc053 CALCIUM 8.5 mg/dL 03/09/2017 Comp Metabolic Kvz565 ALK PHOS 97 U/L 03/09/2017 Comp Metabolic Biz085 AST(SGOT) 10 U/L 03/09/2017 Comp Metabolic Qas574 ALT(SGPT) 6 U/L 03/09/2017 Comp Metabolic Ern130 BILI T 0.4 mg/dL 03/09/2017 Comp Metabolic Nid209 ALBUMIN 3.4 g/dL 03/09/2017 Comp Metabolic Vlm998 TPRO 6.2 g/dL 03/09/2017 Comp Metabolic Zon913 GLOB 2.8 g/dL 03/09/2017 Comp Metabolic Tme423 A/G Ratio 1.2 Ratio 03/09/2017 Comp Metabolic Qal592 Osmo 290 mOsmo 03/09/2017 Free T4 Ays331 FREE T4 0.86 ng/dL 03/08/2017 Cbc With [...] 28.2 pg 03/08/2017 Cbc With Differential Ord2 Davis% 8.7 % 03/08/2017 Cbc With Differential Ord2 [...] 1.63 K/ul 03/08/2017 Cbc With Differential Ord2 Davis ABS# 0.9 K/ul 03/08/2017 Cbc With Differential Ord2 Eos ABS# 0.5 K/ul 03/08/2017 Cbc With Differential Ord2 Baso ABS# 0.0 K/ul 03/08/2017 Tsh Ord6 hTSH II 4.52 uIU/mL 03/08/2017 %Hba1C Wsw539 % HbA1c 33872- 6 8.5 % 03/08/2017 %Hba1C Lmg766 Gluc Ave 197 mg/dL 03/08/2017 %Hba1C Nrq326 % HbA1c 77446- 6 9.8 % 12/04/2016 %Hba1C Zkc933 Gluc Ave 235 mg/dL 12/04/2016 Tsh Ord6 hTSH II 10.65 uIU/mL 11/30/2016 Comp Metabolic Lhc247 NA 134 mEq/L 11/30/2016 Comp Metabolic Mkh340 K 5.0 mEq/L 11/30/2016 Comp Metabolic Gff313 CL 95 mEq/L 11/30/2016 Comp Metabolic Lpz097 CO2 34.0 mEq/L 11/30/2016 Comp Metabolic Nyo899 ANION GAP 10 11/30/2016 Comp Metabolic Bwb327 GLUCOSE 226 mg/dL 11/30/2016 Comp Metabolic Nxr096 Creat 1.3 mg/dL 11/30/2016 Comp Metabolic Ihp806 eGFR 56 ml/min/1.73m2 11/30/2016 Comp Metabolic Biw253 BUN 21 mg/dL 11/30/2016 Comp Metabolic Owd852 B/C Ratio 15.7 Ratio 11/30/2016 Comp Metabolic Qch513 CALCIUM 8.9 mg/dL 11/30/2016 Comp Metabolic Tpu430 ALK PHOS 112 U/L 11/30/2016 Comp Metabolic Ayj666 AST(SGOT) 9 U/L 11/30/2016 Comp Metabolic Gqg683 ALT(SGPT) 7 U/L 11/30/2016 Comp Metabolic Niu162 BILI T 0.6 mg/dL 11/30/2016 Comp Metabolic Ddt399 ALBUMIN 3.6 g/dL 11/30/2016 Comp Metabolic Foi194 TPRO 6.4 g/dL 11/30/2016 Comp Metabolic Yaq804 GLOB 2.9 g/dL 11/30/2016 Comp Metabolic Kkn681 A/G Ratio 1.2 Ratio 11/30/2016 Comp Metabolic Phn281 Osmo 278 mOsmo 11/30/2016 Lipid Ord30 CHOL [...] 13.0 % 11/30/2016 Cbc With Differential Ord2 Davis% 7.9 % 11/30/2016 Cbc With Differential Ord2 [...] 1.34 K/ul 11/30/2016 Cbc With Differential Ord2 Davis ABS# 0.8 K/ul 11/30/2016 Cbc With Differential Ord2 Eos ABS# 0.3 K/ul 11/30/2016 Cbc With Differential Ord2 Baso ABS# 0.0 K/ul 11/30/2016 Free T4 Bua028 FREE T4 0.89 ng/dL 11/30/2016 Review of Systems System Result Effective Dates Constitutional No recent illness 03/08/2017 Constitutional No [...] Codes Date URINALYSIS NONAUTO W/O SCOPE CPT-4: 76196Hefbeor 03/21/2017 PPPS, SUBSEQ VISIT CPT-4: W4387Thtctxo 11/30/2016 PNEUMOCOCCAL VACC 13 JAVIER IM Formatting Model/CDA Sections, Assigned to SNOMED CT: 69876296 CPT-4: 92848Utmdleg 11/30/2016 ADMIN PNEUMOCOCCAL VACCINE SNOMED CT: 79132982 CPT-4: A0525Fvxembs 11/30/2016 Vital Signs Date Vital 03/08/2017 Blood Pressure 1: 124/70 Code: 8480-6 BMI: 39.4 Code: 47802-9 Heart Rate 1: 51 bpm Height: 5'10" SpO2: 94% Weight: 274 lbs 8 oz 12/06/2016 Blood Pressure 1: 126/62 Code: 8480-6 BMI: 40.3 Code: 62277-7 Heart Rate 1: 50 bpm Height: 5'10" SpO2: 94% Weight: 281 lbs 11/30/2016 Blood Pressure 1: 112/62 Code: 8480-6 BMI: 40.3 Code: 42844-1 Heart Rate 1: 52 bpm Height: 5'10" SpO2: 93% Waist Measure (cm): 135 cm Weight: 281 lbs 11/28/2016 Blood Pressure 1: 132/72 Code: 8480-6 BMI: 40.3 Code: 62771-1 Heart Rate 1: 50 bpm Height: 5'10" Weight: 281 lbs 05/04/2016 Blood Pressure 1: 128/78 Code: 8480-6 BMI: 38.5 Code: 32362-9 Heart Rate 1: 74 bpm Height: 5'10" SpO2: 98% Weight: 268 lbs 8 oz 11/04/2015 Blood Pressure 1: 136/60 Code: 8480-6 BMI: 38.0 Code: 52880-6 Heart Rate 1: 55 bpm Height: 5'10" SpO2: 94% Weight: 265 lbs 07/30/2015 Blood Pressure 1: 128/74 Code: 8480-6 BMI: 38.0 Code: 01831-0 Heart Rate 1: 47 bpm Height: 5'10" SpO2: 97% Weight: 265 lbs 01/26/2015 Blood Pressure 1: 122/64 Code: 8480-6 BMI: 34.0 Code: 52616-1 Heart Rate 1: 68 bpm Height: 5'10" Weight: 237 lbs Functional Status No Functional Status data History of Present Illness Symptom Name Status Result Effective Date Notes diabetes mellitus Quality acute 03/08/2017 None diabetes [...] data Encounters Encounter Performer Location Codes Date ([id number]) [id number] EST. PATIENT, LEVEL IV Diagnosis: Type 2 diabetes mellitus with hyperglycemia[ICD10: E11.65] Diagnosis: Other specified hypothyroidism[ICD10: E03.8] Diagnosis: Essential (primary) hypertension[ICD10: I10] Sarah Sanchez MD, [facility] CPT-4: 60541 03/08/2017 ([id number]) 79526 EST. PATIENT, LEVEL III Diagnosis: Type 2 diabetes mellitus with hyperglycemia[ICD10: E11.65] Diagnosis: Other specified hypothyroidism[ICD10: E03.8] Sarah Sanchez MD, [facility] CPT-4: 02457 12/06/2016 ([id number]) 03238 EST. PATIENT, LEVEL IV Diagnosis: Essential (primary) hypertension[ICD10: I10] Diagnosis: Chronic kidney disease, stage 3 (moderate)[ICD10: N18.3] Dorene Sanchez MD, [facility] CPT-4: 34788 11/28/2016 ([id number]) 46156 EST. PATIENT, LEVEL IV Diagnosis: Essential (primary) hypertension[ICD10: I10] Diagnosis: Chronic pain syndrome[ICD10: G89.4] Diagnosis: Chronic kidney disease, stage 3 (moderate)[ICD10: N18.3] Diagnosis: Vitamin B12 deficiency anemia due to intrinsic factor deficiency[ICD10: D51.0] Diagnosis: Other specified hypothyroidism[ICD10: E03.8] Dorene Sanchez MD, [facility] CPT-4: 85800 05/04/2016 75433 EST. PATIENT, LEVEL III Diagnosis: Chronic pain syndrome[ICD10: G89.4] Diagnosis: Essential (primary) hypertension[ICD10: I10] Diagnosis: Other specified hypothyroidism[ICD10: E03.8] Kiki Sanchez MD, [facility] CPT-4: 32263 11/04/2015 [id number] EST. PATIENT, LEVEL III Diagnosis: Chronic pain syndrome[ICD10: G89.4] Diagnosis: Essential (primary) hypertension[ICD10: I10] Kiki Sanchez MD, [facility] CPT-4: 99377 07/30/2015 ([id number]) OFFICE/OUTPATIENT VISIT NEW Diagnosis: ESSENTIAL HYPERTENSION[ICD9: 401.9] Diagnosis: HYPOTHYROIDISM[ICD9: 244.9] Diagnosis: ANEMIA[ICD9: 285.9] Diagnosis: Vitamin B12 deficiency[ICD9: 266.2] Diagnosis: CHRONIC PAIN SYNDROME[ICD9: 338.4] Diagnosis: Chronic renal insufficiency, stage III (moderate)[ICD9: 585.3] Diagnosis: GOUT[ICD9: 274.9] [facility] CPT-4: 23418 01/26/2015 Plan of Care Planned Activity Notes Codes Status Date Appointment: Lab Draw 03/21/2017 Patient Education: Patient [...] control. 03/08/2017 Appointment: Sarah Hernandes WPtel: [address] [place], [place] [phone] (30 min) [facility] 03/08/2017 Patient Education: Patient Medication Summary Completed [...] care surrogate. 11/30/2016 App[facility]ment: [facility] [phone] [phone] [facility] - Annual Wellness Visit 11/30/2016 [...] fluids. 11/28/2016 App[facility]ment: [facility] [phone] [phone] (15 min) Moderate [...] repeat labs in 3 months-sooner if needed PREVNAR 13 TODAY- GIVEN IN OFFICE PREVNAR 23 IN ONE YEAR SHINGLES VACCINATION TO BE ADMINISTERED AT [facility] RECOMMEND OBTAINING MEDICAL POWER OF INTERSTATE BUS DISPATCHER AND LIVING WILL PATIENT DOES NOT [...] SHINGLES VACCINATION TO BE ADMINISTERED AT [facility] RECOMMEND OBTAINING MEDICAL POWER OF INTERSTATE BUS DISPATCHER AND LIVING WILL PATIENT DOES NOT [...] SHINGLES VACCINATION TO BE ADMINISTERED AT [facility] RECOMMEND OBTAINING MEDICAL POWER OF INTERSTATE BUS DISPATCHER AND LIVING WILL PATIENT DOES NOT [...]
--- OUTSIDE RECORDS SUMMARY | 2019-03-24 08:29 | XMS REPORT | CCD ---
Author Author Dorene Sanchez Organization [facility] Address [address] [place] [address] Phone Care Team Providers Care Employment Agency Manager Name Role Phone PP Unavailable CCM Unavailable Summary Purpose Interface Exchange Insurance Providers Payer name Policy type / Coverage type Covered green party ID Effective Begin Date Effective End Date WPS Medicare Part B Medicare Part B [id number] Unknown Unknown Family history Father Diagnosis Age At Onset Stroke Unknown Mother Diagnosis Age At Onset Stroke Unknown Diabetes mellitus Type 2 Unknown Social History Social History Element Codes Description Effective Dates Tobacco history SNOMED CT: 662804011 Currently uses smokeless tobacco Chews 05/04/2016 Marital status Unknown 01/26/2015 Number of children Unknown 3 01/26/2015 Employment Unknown Retired 01/26/[address]: 274107316 Never drinks alcohol quit in July 2014 [...] Fill Instructions oxycodone 20 mg tablet RxNorm: 4823339 1/2 Tablet(s) PO Q6 as needed 03/08/2017 04/06/2017 Active bisoprolol 5 mg-hydrochlorothiazide 6.25 mg tablet RxNorm: 704187 TAKE ONE TABLET BY MOUTH DAILY 02/14/2017 05/14/2017 Active oxycodone 20 mg tablet RxNorm: 3110458 1/2 Tablet(s) PO Q6 as needed 02/08/2017 03/07/2017 Inactive oxycodone 20 mg tablet RxNorm: 7569149 1/2 Tablet(s) PO Q6 as needed 01/08/2017 02/06/2017 Inactive levothyroxine 175 mcg tablet RxNorm: 399154 1 Tablet(s) PO daily 12/06/2016 06/03/2017 Active [SAVINGS FOR NON-COVERED DRUGS -- BIN:[id number], PCN: ASPROD1, Group: XXXXX, ID# [id number], Questions: . THIS IS NOT INSURANCE.] oxycodone 20 mg tablet RxNorm: 0387140 1/2 Tablet(s) PO Q6 as needed 12/04/2016 01/02/2017 Inactive oxycodone 20 mg tablet RxNorm: 8206903 1/2 Tablet(s) PO Q6 as needed 11/09/2016 12/03/2016 Inactive bisoprolol 5 mg-hydrochlorothiazide 6.25 mg tablet RxNorm: 643583 TAKE ONE TABLET BY MOUTH DAILY 11/08/2016 02/05/2017 Inactive oxycodone 20 mg tablet RxNorm: 0528646 1/2 Tablet(s) PO Q6 as needed 10/05/2016 11/03/2016 Inactive oxycodone 20 mg tablet RxNorm: 8702429 1/2 Tablet(s) PO Q6 as needed 09/06/2016 10/04/2016 Inactive oxycodone 20 mg tablet RxNorm: 7405808 1/2 Tablet(s) PO Q6 as needed 08/07/2016 09/05/2016 Inactive oxycodone 20 mg tablet RxNorm: 3619268 1/2 Tablet(s) PO Q6 as needed 07/04/2016 08/06/2016 Inactive oxycodone 20 mg tablet RxNorm: 0981463 1/2 Tablet(s) PO Q6 as needed 05/29/2016 07/03/2016 Inactive levothyroxine 150 mcg tablet RxNorm: 102911 1 Tablet(s) PO daily 04/10/2016 04/09/2016 Inactive [SAVINGS FOR NON-COVERED DRUGS -- BIN:[id number], PCN: ASPROD1, Group: XXXXX, ID# [id number], Questions: . THIS IS NOT INSURANCE.] oxycodone 20 mg tablet RxNorm: 8779035 1/2 Tablet(s) PO Q6 as needed 04/10/2016 05/28/2016 Inactive levothyroxine 150 mcg tablet RxNorm: 076421 1 Tablet(s) PO daily 04/10/2016 10/06/2016 Inactive [SAVINGS FOR NON-COVERED DRUGS -- BIN:[id number], PCN: ASPROD1, Group: XXXXX, ID# [id number], Questions: . THIS IS NOT INSURANCE.] bisoprolol 5 mg-hydrochlorothiazide 6.25 mg tablet RxNorm: 564979 1 Tablet(s) PO daily 02/16/2016 05/15/2016 Inactive oxycodone 20 mg tablet RxNorm: 5130891 1/2 Tablet(s) PO Q6 as needed 02/16/2016 04/09/2016 Inactive oxycodone 20 mg tablet RxNorm: 1548207 1/2 Tablet(s) PO Q6 as needed 01/04/2016 02/15/2016 Inactive bisoprolol 5 mg-hydrochlorothiazide 6.25 mg tablet RxNorm: 311627 1 Tablet(s) PO daily 11/19/2015 01/17/2016 Inactive bisoprolol 5 mg-hydrochlorothiazide 6.25 mg tablet RxNorm: 269431 1 Tablet(s) PO daily 11/04/2015 11/18/2015 Inactive oxycodone 20 mg tablet RxNorm: 6852891 1/2 Tablet(s) PO Q6 as needed 10/27/2015 01/03/2016 Inactive levothyroxine 150 mcg tablet RxNorm: 491239 1 Tablet(s) PO daily 08/26/2015 02/21/2016 Inactive [SAVINGS FOR NON-COVERED DRUGS -- BIN:109560, PCN: ASPROD1, Group: XXXXX, ID# [id number], Questions: . THIS IS NOT INSURANCE.] bisoprolol 5 mg-hydrochlorothiazide 6.25 mg tablet RxNorm: 501968 1 Tablet(s) PO daily 08/26/2015 10/24/2015 Inactive oxycodone 10 mg tablet RxNorm: 3832656 1 Tablet(s) PO Q6 as needed 05/06/2015 10/26/2015 Inactive levothyroxine 150 mcg tablet RxNorm: 155690 1 Tablet(s) PO daily 02/05/2015 08/03/2015 Inactive [SAVINGS FOR NON-COVERED DRUGS -- BIN:781059, PCN: ASPROD1, Group: XXXXX, ID# [id number], Questions: . THIS IS NOT INSURANCE.] Vitamin D2 50,000 unit capsule RxNorm: 178364 1 Capsule(s) PO weekly 02/05/2015 05/05/2015 Inactive [SAVINGS FOR NON-COVERED DRUGS -- BIN:213201, PCN: ASPROD1, Group: XXXXX, ID# [id number], Questions: . THIS IS NOT INSURANCE.] Vitamin D2 50,000 unit capsule RxNorm: 123831 1 Capsule(s) PO weekly 02/05/2015 02/04/2015 Inactive bisoprolol 5 mg-hydrochlorothiazide 6.25 mg tablet RxNorm: 409141 1 Tablet(s) PO daily 01/26/2015 02/24/2015 Inactive levothyroxine 200 mcg tablet RxNorm: 233310 1 Tablet(s) PO daily 01/26/2015 01/25/2015 Inactive levothyroxine 200 mcg tablet RxNorm: 972909 1 Tablet(s) PO every other day 01/26/2015 02/04/2015 Inactive [SAVINGS FOR NON-COVERED DRUGS -- BIN:003162, N: ASPMANISH, Group: XXXXX, ID# [id number], Questions: . THIS IS NOT INSURANCE.] indomethacin oral RxNorm: 5781 oral No Start Date Active aspirin 325 mg tablet RxNorm: 359512 1 Tablet(s) PO daily No Start Date 05/03/2016 Inactive levothyroxine 75 mcg tablet RxNorm: 728068 1 Tablet(s) PO every other day No Start Date 02/04/2015 Inactive takes qod with 200mcg oxycodone 10 mg tablet RxNorm: 6728203 1 Tablet(s) PO Q6 as needed No [...] Observation Code Item Item Code Result Date Comp Metabolic Kkb631 NA 142 mEq/L 03/09/2017 Comp Metabolic Xap015 K 4.8 mEq/L 03/09/2017 Comp Metabolic Iiv461 CL 103 mEq/L 03/09/2017 Comp Metabolic Khm671 CO2 30.0 mEq/L 03/09/2017 Comp Metabolic Svh639 ANION GAP 14 03/09/2017 Comp Metabolic Zos602 GLUCOSE 152 mg/dL 03/09/2017 Comp Metabolic Mwz268 Creat 1.3 mg/dL 03/09/2017 Comp Metabolic Rra708 eGFR 56 ml/min/1.73m2 03/09/2017 Comp Metabolic Xwa139 BUN 23 mg/dL 03/09/2017 Comp Metabolic Jmn413 B/C Ratio 17.3 Ratio 03/09/2017 Comp Metabolic Omy112 CALCIUM 8.5 mg/dL 03/09/2017 Comp Metabolic Flv812 ALK PHOS 97 U/L 03/09/2017 Comp Metabolic Szl461 AST(SGOT) 10 U/L 03/09/2017 Comp Metabolic Fap627 ALT(SGPT) 6 U/L 03/09/2017 Comp Metabolic Iat088 BILI T 0.4 mg/dL 03/09/2017 Comp Metabolic Hes913 ALBUMIN 3.4 g/dL 03/09/2017 Comp Metabolic Zjp414 TPRO 6.2 g/dL 03/09/2017 Comp Metabolic Vah924 GLOB 2.8 g/dL 03/09/2017 Comp Metabolic Nhn680 A/G Ratio 1.2 Ratio 03/09/2017 Comp Metabolic Xuz008 Osmo 290 mOsmo 03/09/2017 Free T4 Rrc509 FREE T4 0.86 ng/dL 03/08/2017 Cbc With [...] 28.2 pg 03/08/2017 Cbc With Differential Ord2 [place]% 8.7 % 03/08/2017 Cbc With Differential Ord2 [...] 1.63 K/ul 03/08/2017 Cbc With Differential Ord2 [place] ABS# 0.9 K/ul 03/08/2017 Cbc With Differential Ord2 Eos ABS# 0.5 K/ul 03/08/2017 Cbc With Differential Ord2 Baso ABS# 0.0 K/ul 03/08/2017 Tsh Ord6 hTSH II 4.52 uIU/mL 03/08/2017 %Hba1C Eqi257 % HbA1c 48962- 6 8.5 % 03/08/2017 %Hba1C Xyw380 Gluc Ave 197 mg/dL 03/08/2017 %Hba1C Jba891 % HbA1c 52284- 6 9.8 % 12/04/2016 %Hba1C Ujl678 Gluc Ave 235 mg/dL 12/04/2016 Tsh Ord6 hTSH II 10.65 uIU/mL 11/30/2016 Comp Metabolic Utj715 NA 134 mEq/L 11/30/2016 Comp Metabolic Ohh916 K 5.0 mEq/L 11/30/2016 Comp Metabolic Ctf978 CL 95 mEq/L 11/30/2016 Comp Metabolic Ttd312 CO2 34.0 mEq/L 11/30/2016 Comp Metabolic Kzy322 ANION GAP 10 11/30/2016 Comp Metabolic Iuo720 GLUCOSE 226 mg/dL 11/30/2016 Comp Metabolic Flu044 Creat 1.3 mg/dL 11/30/2016 Comp Metabolic Xol569 eGFR 56 ml/min/1.73m2 11/30/2016 Comp Metabolic Jfc243 BUN 21 mg/dL 11/30/2016 Comp Metabolic Ynx730 B/C Ratio 15.7 Ratio 11/30/2016 Comp Metabolic Ppr522 CALCIUM 8.9 mg/dL 11/30/2016 Comp Metabolic Aha266 ALK PHOS 112 U/L 11/30/2016 Comp Metabolic Svd556 AST(SGOT) 9 U/L 11/30/2016 Comp Metabolic Bfs525 ALT(SGPT) 7 U/L 11/30/2016 Comp Metabolic Eiy148 BILI T 0.6 mg/dL 11/30/2016 Comp Metabolic Gve568 ALBUMIN 3.6 g/dL 11/30/2016 Comp Metabolic Yis841 TPRO 6.4 g/dL 11/30/2016 Comp Metabolic Lvl955 GLOB 2.9 g/dL 11/30/2016 Comp Metabolic Qyc834 A/G Ratio 1.2 Ratio 11/30/2016 Comp Metabolic Tyb915 Osmo 278 mOsmo 11/30/2016 Lipid Ord30 CHOL [...] 30.6 pg 11/30/2016 Cbc With Differential Ord2 [place]% 7.9 % 11/30/2016 Cbc With Differential Ord2 [...] 1.34 K/ul 11/30/2016 Cbc With Differential Ord2 [place] ABS# 0.8 K/ul 11/30/2016 Cbc With Differential Ord2 Eos ABS# 0.3 K/ul 11/30/2016 Cbc With Differential Ord2 Baso ABS# 0.0 K/ul 11/30/2016 Free T4 Uzz471 FREE T4 0.89 ng/dL 11/30/2016 Review of [...] Codes Date URINALYSIS NONAUTO W/O SCOPE CPT-4: 73783Kljjgeq 03/21/2017 PPPS, SUBSEQ VISIT CPT-4: K6951Fnpdmpw 11/30/2016 PNEUMOCOCCAL VACC 13 JAVIER IM Formatting Model/CDA Sections, Assigned to SNOMED CT: 41798343 CPT-4: 86552Uqoexvv 11/30/2016 ADMIN PNEUMOCOCCAL VACCINE SNOMED CT: 38355052 CPT-4: U5210Ogzwjxb 11/30/2016 Vital Signs Date Vital 03/08/2017 Blood Pressure 1: 124/70 Code: 8480-6 BMI: 39.4 Code: 01576-0 Heart Rate 1: 51 bpm Height: 5'10" SpO2: 94% Weight: 274 lbs 8 oz 12/06/2016 Blood Pressure 1: 126/62 Code: 8480-6 BMI: 40.3 Code: 82396-7 Heart Rate 1: 50 bpm Height: 5'10" SpO2: 94% Weight: 281 lbs 11/30/2016 Blood Pressure 1: 112/62 Code: 8480-6 BMI: 40.3 Code: 12595-9 Heart Rate 1: 52 bpm Height: 5'10" SpO2: 93% Waist Measure (cm): 135 cm Weight: 281 lbs 11/28/2016 Blood Pressure 1: 132/72 Code: 8480-6 BMI: 40.3 Code: 17024-1 Heart Rate 1: 50 bpm Height: 5'10" Weight: 281 lbs 05/04/2016 Blood Pressure 1: 128/78 Code: 8480-6 BMI: 38.5 Code: 65667-3 Heart Rate 1: 74 bpm Height: 5'10" SpO2: 98% Weight: 268 lbs 8 oz 11/04/2015 Blood Pressure 1: 136/60 Code: 8480-6 BMI: 38.0 Code: 37619-2 Heart Rate 1: 55 bpm Height: 5'10" SpO2: 94% Weight: 265 lbs 07/30/2015 Blood Pressure 1: 128/74 Code: 8480-6 BMI: 38.0 Code: 84741-7 Heart Rate 1: 47 bpm Height: 5'10" SpO2: 97% Weight: 265 lbs 01/26/2015 Blood Pressure 1: 122/64 Code: 8480-6 BMI: 34.0 Code: 85039-3 Heart Rate 1: 68 bpm Height: 5'10" [...] data Encounters Encounter Performer Location Codes Date ([id number]) 83916 EST. PATIENT, LEVEL IV Diagnosis: Type 2 diabetes mellitus with hyperglycemia[ICD10: E11.65] Diagnosis: Other specified hypothyroidism[ICD10: E03.8] Diagnosis: Essential (primary) hypertension[ICD10: I10] Sarah Sanchez MD, [facility] CPT-4: 31764 03/08/2017 [id number]) 91697 EST. PATIENT, LEVEL III Diagnosis: Type 2 diabetes mellitus with hyperglycemia[ICD10: E11.65] Diagnosis: Other specified hypothyroidism[ICD10: E03.8] Sarah Sanchez MD, [facility] CPT-4: 49306 12/06/2016 ([id number]) 80416 EST. PATIENT, LEVEL IV Diagnosis: Essential (primary) hypertension[ICD10: I10] Diagnosis: Chronic kidney disease, stage 3 (moderate)[ICD10: N18.3] Dorene Sanchez MD, [facility] CPT-4: 40140 11/28/2016 ([id number]) 18220 EST. PATIENT, LEVEL IV Diagnosis: Essential (primary) hypertension[ICD10: I10] Diagnosis: Chronic pain syndrome[ICD10: G89.4] Diagnosis: Chronic kidney disease, stage 3 (moderate)[ICD10: N18.3] Diagnosis: Vitamin B12 deficiency anemia due to intrinsic factor deficiency[ICD10: D51.0] Diagnosis: Other specified hypothyroidism[ICD10: E03.8] Dorene Sanchez MD, [facility] CPT-4: 66620 05/04/2016 14583 EST. PATIENT, LEVEL III Diagnosis: Chronic pain syndrome[ICD10: G89.4] Diagnosis: Essential (primary) hypertension[ICD10: I10] Diagnosis: Other specified hypothyroidism[ICD10: E03.8] [facility] CPT-4: 11493 11/04/2015 80081 EST. PATIENT, LEVEL III Diagnosis: Chronic pain syndrome[ICD10: G89.4] Diagnosis: Essential (primary) hypertension[ICD10: I10] [facility] CPT-4: 28886 07/30/2015 ([id number]) OFFICE/OUTPATIENT VISIT NEW Diagnosis: ESSENTIAL HYPERTENSION[ICD9: 401.9] Diagnosis: HYPOTHYROIDISM[ICD9: 244.9] Diagnosis: ANEMIA[ICD9: 285.9] Diagnosis: Vitamin B12 deficiency[ICD9: 266.2] Diagnosis: CHRONIC PAIN SYNDROME[ICD9: 338.4] Diagnosis: Chronic renal insufficiency, stage III (moderate)[ICD9: 585.3] Diagnosis: GOUT[ICD9: 274.9] [facility] CPT-4: 57974 01/26/2015 Plan of Care Planned Activity Notes [...] of control. 03/08/2017 Appointment: [facility]el[facility] [phone] [phone] (30 min) Complex 03/08/2017 Patient Education: Patient [...] surrogate. 11/30/2016 Appointment: Sarah Hernandes WPtel: [facility] [place] [address] - Annual Wellness Visit 11/30/2016 Patient Education: [...] in fluids. 11/28/2016 Appointment: Dorene Sanchez WPtel: [phone] (15 min) Moderate 11/28/2016 Patient [...] YEAR SHINGLES VACCINATION TO BE ADMINISTERED AT [facility] RECOMMEND OBTAINING MEDICAL POWER OF SHOE REPAIRER APPRENTICE AND LIVING WILL PATIENT DOES NOT [...] YEAR SHINGLES VACCINATION TO BE ADMINISTERED AT [facility] RECOMMEND OBTAINING MEDICAL POWER OF SHOE REPAIRER APPRENTICE AND LIVING WILL PATIENT DOES NOT [...] YEAR SHINGLES VACCINATION TO BE ADMINISTERED AT [facility] RECOMMEND OBTAINING MEDICAL POWER OF SHOE REPAIRER APPRENTICE AND LIVING WILL PATIENT DOES NOT [...]
--- OUTSIDE RECORDS SUMMARY | 2019-03-24 08:30 | XMS REPORT | CCD ---
Author Author Dorene Sanchez Organization [facility] Address [address] [place] [address] Phone Care Team Providers Care Entry Level Staff Accountant Name Role Phone PP Unavailable CCM Unavailable Summary Purpose Interface Exchange Insurance Providers Payer name Policy type / Coverage type Covered republican ID Effective Begin Date Effective End Date WPS Medicare Part B Medicare Part B [id number] Unknown Unknown Family history Father Diagnosis Age At Onset Stroke Unknown Mother Diagnosis Age At Onset Stroke Unknown Diabetes mellitus Type 2 Unknown Social History Social History Element Codes Description Effective Dates Tobacco history SNOMED CT: 791418784 Currently uses smokeless tobacco Chews 05/04/2016 Marital status Unknown 01/26/2015 Number of children Unknown 3 01/26/2015 Employment Unknown Retired 01/26/[address]: 777183584 Never drinks alcohol quit in July 2014 01/26/2015 Allergies, Adverse Reactions, Alerts Allergies, Adverse Reactions, Alerts data not found Past Medical History Illness Codes Condition Status Onset Date Resolved Date Diabetes Unknown Active 03/08/2017 Unknown Essential (primary) [...] Problems Condition Codes Effective Dates Condition Status Diabetes Unknown 03/08/2017 Active Essential (primary) hypertension [...] Fill Instructions oxycodone 20 mg tablet RxNorm: 3971525 1/2 Tablet(s) PO Q6 as needed 03/08/2017 04/06/2017 Active bisoprolol 5 mg-hydrochlorothiazide 6.25 mg tablet RxNorm: 489412 TAKE ONE TABLET BY MOUTH DAILY 02/14/2017 05/14/2017 Active oxycodone 20 mg tablet RxNorm: 1301060 1/2 Tablet(s) PO Q6 as needed 02/08/2017 03/07/2017 Inactive oxycodone 20 mg tablet RxNorm: 5270967 1/2 Tablet(s) PO Q6 as needed 01/08/2017 02/06/2017 Inactive levothyroxine 175 mcg tablet RxNorm: 786734 1 Tablet(s) PO daily 12/06/2016 06/03/2017 Active [SAVINGS FOR NON-COVERED DRUGS -- BIN:[id number], PCN: ASPROD1, Group: XXXXX, ID# [id number], Questions: . THIS IS NOT INSURANCE.] oxycodone 20 mg tablet RxNorm: 2146589 1/2 Tablet(s) PO Q6 as needed 12/04/2016 01/02/2017 Inactive oxycodone 20 mg tablet RxNorm: 7696341 1/2 Tablet(s) PO Q6 as needed 11/09/2016 12/03/2016 Inactive bisoprolol 5 mg-hydrochlorothiazide 6.25 mg tablet RxNorm: 826633 TAKE ONE TABLET BY MOUTH DAILY 11/08/2016 02/05/2017 Inactive oxycodone 20 mg tablet RxNorm: 5790046 1/2 Tablet(s) PO Q6 as needed 10/05/2016 11/03/2016 Inactive oxycodone 20 mg tablet RxNorm: 0093830 1/2 Tablet(s) PO Q6 as needed 09/06/2016 10/04/2016 Inactive oxycodone 20 mg tablet RxNorm: 2570258 1/2 Tablet(s) PO Q6 as needed 08/07/2016 09/05/2016 Inactive oxycodone 20 mg tablet RxNorm: 2794130 1/2 Tablet(s) PO Q6 as needed 07/04/2016 08/06/2016 Inactive oxycodone 20 mg tablet RxNorm: 6258619 1/2 Tablet(s) PO Q6 as needed 05/29/2016 07/03/2016 Inactive levothyroxine 150 mcg tablet RxNorm: 539581 1 Tablet(s) PO daily 04/10/2016 04/09/2016 Inactive [SAVINGS FOR NON-COVERED DRUGS -- BIN:[id number], PCN: ASPROD1, Group: XXXXX, ID# [id number], Questions: . THIS IS NOT INSURANCE.] oxycodone 20 mg tablet RxNorm: 3279100 1/2 Tablet(s) PO Q6 as needed 04/10/2016 05/28/2016 Inactive levothyroxine 150 mcg tablet RxNorm: 448049 1 Tablet(s) PO daily 04/10/2016 10/06/2016 Inactive [SAVINGS FOR NON-COVERED DRUGS -- BIN:[id number], PCN: ASPROD1, Group: XXXXX, ID# [id number], Questions: . THIS IS NOT INSURANCE.] bisoprolol 5 mg-hydrochlorothiazide 6.25 mg tablet RxNorm: 912079 1 Tablet(s) PO daily 02/16/2016 05/15/2016 Inactive oxycodone 20 mg tablet RxNorm: 1947224 1/2 Tablet(s) PO Q6 as needed 02/16/2016 04/09/2016 Inactive oxycodone 20 mg tablet RxNorm: 8042156 1/2 Tablet(s) PO Q6 as needed 01/04/2016 02/15/2016 Inactive bisoprolol 5 mg-hydrochlorothiazide 6.25 mg tablet RxNorm: 123685 1 Tablet(s) PO daily 11/19/2015 01/17/2016 Inactive bisoprolol 5 mg-hydrochlorothiazide 6.25 mg tablet RxNorm: 984702 1 Tablet(s) PO daily 11/04/2015 11/18/2015 Inactive oxycodone 20 mg tablet RxNorm: 1967658 1/2 Tablet(s) PO Q6 as needed 10/27/2015 01/03/2016 Inactive levothyroxine 150 mcg tablet RxNorm: 932539 1 Tablet(s) PO daily 08/26/2015 02/21/2016 Inactive [SAVINGS FOR NON-COVERED DRUGS -- BIN:[id number], PCN: ASPROD1, Group: XXXXX, ID# [id number], Questions: . THIS IS NOT INSURANCE.] bisoprolol 5 mg-hydrochlorothiazide 6.25 mg tablet RxNorm: 546551 1 Tablet(s) PO daily 08/26/2015 10/24/2015 Inactive oxycodone 10 mg tablet RxNorm: 6102503 1 Tablet(s) PO Q6 as needed 05/06/2015 10/26/2015 Inactive levothyroxine 150 mcg tablet RxNorm: 353876 1 Tablet(s) PO daily 02/05/2015 08/03/2015 Inactive [SAVINGS FOR NON-COVERED DRUGS -- BIN:[id number], PCN: ASPROD1, Group: XXXXX, ID# [id number], Questions: . THIS IS NOT INSURANCE.] Vitamin D2 50,000 unit capsule RxNorm: 779813 1 Capsule(s) PO weekly 02/05/2015 05/05/2015 Inactive [SAVINGS FOR NON-COVERED DRUGS -- BIN:692783, PCN: ASPROD1, Group: XXXXX, ID# [id number], Questions: . THIS IS NOT INSURANCE.] Vitamin D2 50,000 unit capsule RxNorm: 327778 1 Capsule(s) PO weekly 02/05/2015 02/04/2015 Inactive bisoprolol 5 mg-hydrochlorothiazide 6.25 mg tablet RxNorm: 017148 1 Tablet(s) PO daily 01/26/2015 02/24/2015 Inactive levothyroxine 200 mcg tablet RxNorm: 880192 1 Tablet(s) PO daily 01/26/2015 01/25/2015 Inactive levothyroxine 200 mcg tablet RxNorm: 081615 1 Tablet(s) PO every other day 01/26/2015 02/04/2015 Inactive [SAVINGS FOR NON-COVERED DRUGS -- BIN:233807, PCN: ASPROD1, Group: XXXXX, ID# [id number], Questions: . THIS IS NOT INSURANCE.] indomethacin oral RxNorm: 5781 oral No Start Date Active aspirin 325 mg tablet RxNorm: 368424 1 Tablet(s) PO daily No Start Date 05/03/2016 Inactive levothyroxine 75 mcg tablet RxNorm: 663624 1 Tablet(s) PO every other day No Start Date 02/04/2015 Inactive takes qod with 200mcg oxycodone 10 mg tablet RxNorm: 1021013 1 Tablet(s) PO Q6 as needed No Start Date 05/05/2015 Inactive Medication Administered No Medication Administered data Immunizations Vaccine Codes Date Status Pneumococcal (Adult) CVX: 133 11/30/2016 completed Assessments Condition Codes Effective Dates Other specified hypothyroidism ICD-10: E03.8 ICD-9: 244.9 [...] Item Item Code Result Date Comp Metabolic Noa457 NA 142 mEq/L 03/09/2017 Comp Metabolic Jgn785 K 4.8 mEq/L 03/09/2017 Comp Metabolic Ths591 CL 103 mEq/L 03/09/2017 Comp Metabolic Peo791 CO2 30.0 mEq/L 03/09/2017 Comp Metabolic Fop159 ANION GAP 14 03/09/2017 Comp Metabolic Eub226 GLUCOSE 152 mg/dL 03/09/2017 Comp Metabolic Kfl203 Creat 1.3 mg/dL 03/09/2017 Comp Metabolic Gyv366 eGFR 56 ml/min/1.73m2 03/09/2017 Comp Metabolic Omy055 BUN 23 mg/dL 03/09/2017 Comp Metabolic Gti975 B/C Ratio 17.3 Ratio 03/09/2017 Comp Metabolic Yoh675 CALCIUM 8.5 mg/dL 03/09/2017 Comp Metabolic Gzg574 ALK PHOS 97 U/L 03/09/2017 Comp Metabolic Mus981 AST(SGOT) 10 U/L 03/09/2017 Comp Metabolic Job624 ALT(SGPT) 6 U/L 03/09/2017 Comp Metabolic Ovw141 BILI T 0.4 mg/dL 03/09/2017 Comp Metabolic Fne932 ALBUMIN 3.4 g/dL 03/09/2017 Comp Metabolic Sqr109 TPRO 6.2 g/dL 03/09/2017 Comp Metabolic Imd369 GLOB 2.8 g/dL 03/09/2017 Comp Metabolic Och345 A/G Ratio 1.2 Ratio 03/09/2017 Comp Metabolic Mwo421 Osmo 290 mOsmo 03/09/2017 Free T4 Pow935 FREE T4 0.86 ng/dL 03/08/2017 Cbc With [...] 28.2 pg 03/08/2017 Cbc With Differential Ord2 Kay% 8.7 % 03/08/2017 Cbc With Differential Ord2 [...] 1.63 K/ul 03/08/2017 Cbc With Differential Ord2 Kay ABS# 0.9 K/ul 03/08/2017 Cbc With Differential Ord2 Eos ABS# 0.5 K/ul 03/08/2017 Cbc With Differential Ord2 Baso ABS# 0.0 K/ul 03/08/2017 Tsh Ord6 hTSH II 4.52 uIU/mL 03/08/2017 %Hba1C Ecf597 % HbA1c 16320- 6 8.5 % 03/08/2017 %Hba1C Trc368 Gluc Ave 197 mg/dL 03/08/2017 %Hba1C Hct785 % HbA1c 98666- 6 9.8 % 12/04/2016 %Hba1C Uqc363 Gluc Ave 235 mg/dL 12/04/2016 Tsh Ord6 hTSH II 10.65 uIU/mL 11/30/2016 Comp Metabolic Nqx044 NA 134 mEq/L 11/30/2016 Comp Metabolic Shh245 K 5.0 mEq/L 11/30/2016 Comp Metabolic Eru883 CL 95 mEq/L 11/30/2016 Comp Metabolic Nuz224 CO2 34.0 mEq/L 11/30/2016 Comp Metabolic Luk177 ANION GAP 10 11/30/2016 Comp Metabolic Wmu490 GLUCOSE 226 mg/dL 11/30/2016 Comp Metabolic Dxs676 Creat 1.3 mg/dL 11/30/2016 Comp Metabolic Hah862 eGFR 56 ml/min/1.73m2 11/30/2016 Comp Metabolic Sqv615 BUN 21 mg/dL 11/30/2016 Comp Metabolic Iib955 B/C Ratio 15.7 Ratio 11/30/2016 Comp Metabolic Qev656 CALCIUM 8.9 mg/dL 11/30/2016 Comp Metabolic Fwm053 ALK PHOS 112 U/L 11/30/2016 Comp Metabolic Pqb067 AST(SGOT) 9 U/L 11/30/2016 Comp Metabolic Rem553 ALT(SGPT) 7 U/L 11/30/2016 Comp Metabolic Pmv956 BILI T 0.6 mg/dL 11/30/2016 Comp Metabolic Vhg311 ALBUMIN 3.6 g/dL 11/30/2016 Comp Metabolic Rxu134 TPRO 6.4 g/dL 11/30/2016 Comp Metabolic Ewj647 GLOB 2.9 g/dL 11/30/2016 Comp Metabolic Rhp181 A/G Ratio 1.2 Ratio 11/30/2016 Comp Metabolic Ysd712 Osmo 278 mOsmo 11/30/2016 Lipid Ord30 CHOL [...] 30.6 pg 11/30/2016 Cbc With Differential Ord2 Kay% 7.9 % 11/30/2016 Cbc With Differential Ord2 [...] 1.34 K/ul 11/30/2016 Cbc With Differential Ord2 Kay ABS# 0.8 K/ul 11/30/2016 Cbc With Differential Ord2 Eos ABS# 0.3 K/ul 11/30/2016 Cbc With Differential Ord2 Baso ABS# 0.0 K/ul 11/30/2016 Free T4 Tfb911 FREE T4 0.89 ng/dL 11/30/2016 Review of [...] kyphosis 01/26/2015 None Procedures Procedure Codes Date PPPS, SUBSEQ VISIT CPT-4: P9930Spyqdum 11/30/2016 PNEUMOCOCCAL VACC 13 JAVIER IM Formatting Model/CDA Sections, Assigned to SNOMED CT: 61415678 CPT-4: 24862Pafvaeu 11/30/2016 ADMIN PNEUMOCOCCAL VACCINE SNOMED CT: 22756795 CPT-4: L0404Qzfdhxf 11/30/2016 Vital Signs Date Vital 03/08/2017 Blood Pressure 1: 124/70 Code: 8480-6 BMI: 39.4 Code: 75317-1 Heart Rate 1: 51 bpm Height: 5'10" SpO2: 94% Weight: 274 lbs 8 oz 12/06/2016 Blood Pressure 1: 126/62 Code: 8480-6 BMI: 40.3 Code: 70544-0 Heart Rate 1: 50 bpm Height: 5'10" SpO2: 94% Weight: 281 lbs 11/30/2016 Blood Pressure 1: 112/62 Code: 8480-6 BMI: 40.3 Code: 91918-2 Heart Rate 1: 52 bpm Height: 5'10" SpO2: 93% Waist Measure (cm): 135 cm Weight: 281 lbs 11/28/2016 Blood Pressure 1: 132/72 Code: 8480-6 BMI: 40.3 Code: 05125-4 Heart Rate 1: 50 bpm Height: 5'10" Weight: 281 lbs 05/04/2016 Blood Pressure 1: 128/78 Code: 8480-6 BMI: 38.5 Code: 63677-8 Heart Rate 1: 74 bpm Height: 5'10" SpO2: 98% Weight: 268 lbs 8 oz 11/04/2015 Blood Pressure 1: 136/60 Code: 8480-6 BMI: 38.0 Code: 39946-3 Heart Rate 1: 55 bpm Height: 5'10" SpO2: 94% Weight: 265 lbs 07/30/2015 Blood Pressure 1: 128/74 Code: 8480-6 BMI: 38.0 Code: 99788-3 Heart Rate 1: 47 bpm Height: 5'10" SpO2: 97% Weight: 265 lbs 01/26/2015 Blood Pressure 1: 122/64 Code: 8480-6 BMI: 34.0 Code: 39466-2 Heart Rate 1: 68 bpm Height: 5'10" [...] data Encounters Encounter Performer Location Codes Date ([id number]) [id number] EST. PATIENT, LEVEL IV Diagnosis: Type 2 diabetes mellitus with hyperglycemia[ICD10: E11.65] Diagnosis: Other specified hypothyroidism[ICD10: E03.8] Diagnosis: Essential (primary) hypertension[ICD10: I10] Sarah Sanchez MD, [facility] CPT-4: 63236 03/08/2017 ([id number] 67077 EST. PATIENT, LEVEL III Diagnosis: Type 2 diabetes mellitus with hyperglycemia[ICD10: E11.65] Diagnosis: Other specified hypothyroidism[ICD10: E03.8] Sarah Sanchez MD, [facility] CPT-4: 47970 12/06/2016 ([id number]) 53935 EST. PATIENT, LEVEL IV Diagnosis: Essential (primary) hypertension[ICD10: I10] Diagnosis: Chronic kidney disease, stage 3 (moderate)[ICD10: N18.3] Dorene Sanchez MD, [facility] CPT-4: 03030 11/28/2016 [id number]) [id number] EST. PATIENT, LEVEL IV Diagnosis: Essential (primary) hypertension[ICD10: I10] Diagnosis: Chronic pain syndrome[ICD10: G89.4] Diagnosis: Chronic kidney disease, stage 3 (moderate)[ICD10: N18.3] Diagnosis: Vitamin B12 deficiency anemia due to intrinsic factor deficiency[ICD10: D51.0] Diagnosis: Other specified hypothyroidism[ICD10: E03.8] Dorene Sanchez MD, [facility] CPT-4: 76443 05/04/2016 [id number] EST. PATIENT, LEVEL III Diagnosis: Chronic pain syndrome[ICD10: G89.4] Diagnosis: Essential (primary) hypertension[ICD10: I10] Diagnosis: Other specified hypothyroidism[ICD10: E03.8] Kiki Sanchez MD, [facility] CPT-4: 00092 11/04/2015 12187 EST. PATIENT, LEVEL III Diagnosis: Chronic pain syndrome[ICD10: G89.4] Diagnosis: Essential (primary) hypertension[ICD10: I10] Kiki Sanchez MD, [facility] CPT-4: 50897 07/30/2015 ([id number]) OFFICE/OUTPATIENT VISIT NEW Diagnosis: ESSENTIAL HYPERTENSION[ICD9: 401.9] Diagnosis: HYPOTHYROIDISM[ICD9: 244.9] Diagnosis: ANEMIA[ICD9: 285.9] Diagnosis: Vitamin B12 deficiency[ICD9: 266.2] Diagnosis: CHRONIC PAIN SYNDROME[ICD9: 338.4] Diagnosis: Chronic renal insufficiency, stage III (moderate)[ICD9: 585.3] Diagnosis: GOUT[ICD9: 274.9] [facility] CPT-4: 81762 01/26/2015 Plan of Care Planned Activity Notes [...] of control. 03/08/2017 Appointment: Sarah Hernandes WPtel: [address] [place], [place] [phone] (30 min) Complex 03/08/2017 Patient Education: Patient [...] surrogate. 11/30/2016 App[facility]ment: [facility] [phone] [phone] [place] [address] - Annual Wellness Visit 11/30/2016 Patient Education: [...] fluids. 11/28/2016 [facility] [phone] [phone] ([facility] min) Moderate 11/28/2016 Patient Education: [...] YEAR SHINGLES VACCINATION TO BE ADMINISTERED AT [facility] REC[facility] OBTAINING MEDICAL POWER OF ICU MANAGER AND LIVING WILL PATIENT DOES NOT [...] SHINGLES VACCINATION TO BE ADMINISTERED AT [facility] OBTAINING MEDICAL POWER OF ICU MANAGER AND LIVING WILL PATIENT DOES NOT [...] SHINGLES VACCINATION TO BE ADMINISTERED AT [facility] OBTAINING MEDICAL POWER OF ICU MANAGER AND LIVING WILL PATIENT DOES NOT [...]
--- OUTSIDE RECORDS SUMMARY | 2019-03-24 08:31 | XMS REPORT | CCD ---
Author Author Dorene Sanchez Organization [facility] Address [address] [place] [address] Phone Care Team Providers Care Media Aid Name Role Phone PP Unavailable CCM Unavailable Summary Purpose Interface Exchange Insurance Providers Payer name Policy type / Coverage type Covered republican ID Effective Begin Date Effective End Date WPS Medicare Part B Medicare Part B [id number] Unknown Unknown Family history Father Diagnosis Age At Onset Stroke Unknown Mother Diagnosis Age At Onset Stroke Unknown Diabetes mellitus Type 2 Unknown Social History Social History Element Codes Description Effective Dates Tobacco history SNOMED CT: 704876167 Currently uses smokeless tobacco Chews 05/04/2016 Marital status Unknown 01/26/2015 Number of children Unknown 3 01/26/2015 Employment Unknown Retired 01/26/[address]: 324479347 Never drinks alcohol quit in July 2014 [...] Fill Instructions oxycodone 20 mg tablet RxNorm: 9610823 1/2 Tablet(s) PO Q6 as needed 03/08/2017 04/06/2017 Active bisoprolol 5 mg-hydrochlorothiazide 6.25 mg tablet RxNorm: 210942 TAKE ONE TABLET BY MOUTH DAILY 02/14/2017 05/14/2017 Active oxycodone 20 mg tablet RxNorm: 6231090 1/2 Tablet(s) PO Q6 as needed 02/08/2017 03/07/2017 Inactive oxycodone 20 mg tablet RxNorm: 3321491 1/2 Tablet(s) PO Q6 as needed 01/08/2017 02/06/2017 Inactive levothyroxine 175 mcg tablet RxNorm: 348002 1 Tablet(s) PO daily 12/06/2016 06/03/2017 Active [SAVINGS FOR NON-COVERED DRUGS -- BIN:[id number], PCN: ASPROD1, Group: XXXXX, ID# [id number], Questions: . THIS IS NOT INSURANCE.] oxycodone 20 mg tablet RxNorm: 6773948 1/2 Tablet(s) PO Q6 as needed 12/04/2016 01/02/2017 Inactive oxycodone 20 mg tablet RxNorm: 2775982 1/2 Tablet(s) PO Q6 as needed 11/09/2016 12/03/2016 Inactive bisoprolol 5 mg-hydrochlorothiazide 6.25 mg tablet RxNorm: 652067 TAKE ONE TABLET BY MOUTH DAILY 11/08/2016 02/05/2017 Inactive oxycodone 20 mg tablet RxNorm: 7779660 1/2 Tablet(s) PO Q6 as needed 10/05/2016 11/03/2016 Inactive oxycodone 20 mg tablet RxNorm: 6120955 1/2 Tablet(s) PO Q6 as needed 09/06/2016 10/04/2016 Inactive oxycodone 20 mg tablet RxNorm: 5235104 1/2 Tablet(s) PO Q6 as needed 08/07/2016 09/05/2016 Inactive oxycodone 20 mg tablet RxNorm: 8793364 1/2 Tablet(s) PO Q6 as needed 07/04/2016 08/06/2016 Inactive oxycodone 20 mg tablet RxNorm: 6944348 1/2 Tablet(s) PO Q6 as needed 05/29/2016 07/03/2016 Inactive levothyroxine 150 mcg tablet RxNorm: 598012 1 Tablet(s) PO daily 04/10/2016 04/09/2016 Inactive [SAVINGS FOR NON-COVERED DRUGS -- BIN:[id number], PCN: ASPROD1, Group: XXXXX, ID# [id number], Questions: . THIS IS NOT INSURANCE.] oxycodone 20 mg tablet RxNorm: 5362554 1/2 Tablet(s) PO Q6 as needed 04/10/2016 05/28/2016 Inactive levothyroxine 150 mcg tablet RxNorm: 904729 1 Tablet(s) PO daily 04/10/2016 10/06/2016 Inactive [SAVINGS FOR NON-COVERED DRUGS -- BIN:[id number], PCN: ASPROD1, Group: XXXXX, ID# [id number], Questions: . THIS IS NOT INSURANCE.] bisoprolol 5 mg-hydrochlorothiazide 6.25 mg tablet RxNorm: 691684 1 Tablet(s) PO daily 02/16/2016 05/15/2016 Inactive oxycodone 20 mg tablet RxNorm: 0513533 1/2 Tablet(s) PO Q6 as needed 02/16/2016 04/09/2016 Inactive oxycodone 20 mg tablet RxNorm: 5048143 1/2 Tablet(s) PO Q6 as needed 01/04/2016 02/15/2016 Inactive bisoprolol 5 mg-hydrochlorothiazide 6.25 mg tablet RxNorm: 477494 1 Tablet(s) PO daily 11/19/2015 01/17/2016 Inactive bisoprolol 5 mg-hydrochlorothiazide 6.25 mg tablet RxNorm: 645643 1 Tablet(s) PO daily 11/04/2015 11/18/2015 Inactive oxycodone 20 mg tablet RxNorm: 2080871 1/2 Tablet(s) PO Q6 as needed 10/27/2015 01/03/2016 Inactive levothyroxine 150 mcg tablet RxNorm: 899150 1 Tablet(s) PO daily 08/26/2015 02/21/2016 Inactive [SAVINGS FOR NON-COVERED DRUGS -- BIN:[id number], PCN: ASPROD1, Group: XXXXX, ID# [id number], Questions: . THIS IS NOT INSURANCE.] bisoprolol 5 mg-hydrochlorothiazide 6.25 mg tablet RxNorm: 268946 1 Tablet(s) PO daily 08/26/2015 10/24/2015 Inactive oxycodone 10 mg tablet RxNorm: 5320842 1 Tablet(s) PO Q6 as needed 05/06/2015 10/26/2015 Inactive levothyroxine 150 mcg tablet RxNorm: 456972 1 Tablet(s) PO daily 02/05/2015 08/03/2015 Inactive [SAVINGS FOR NON-COVERED DRUGS -- BIN:[id number], PCN: ASPROD1, Group: XXXXX, ID# [id number], Questions: . THIS IS NOT INSURANCE.] Vitamin D2 50,000 unit capsule RxNorm: 813647 1 Capsule(s) PO weekly 02/05/2015 05/05/2015 Inactive [SAVINGS FOR NON-COVERED DRUGS -- BIN:266628, PCN: ASPROD1, Group: XXXXX, ID# XXXXXXX, Questions: . THIS IS NOT INSURANCE.] Vitamin D2 50,000 unit capsule RxNorm: 842080 1 Capsule(s) PO weekly 02/05/2015 02/04/2015 Inactive bisoprolol 5 mg-hydrochlorothiazide 6.25 mg tablet RxNorm: 029072 1 Tablet(s) PO daily 01/26/2015 02/24/2015 Inactive levothyroxine 200 mcg tablet RxNorm: 195143 1 Tablet(s) PO daily 01/26/2015 01/25/2015 Inactive levothyroxine 200 mcg tablet RxNorm: 547861 1 Tablet(s) PO every other day 01/26/2015 02/04/2015 Inactive [SAVINGS FOR NON-COVERED DRUGS -- BIN:673451, PCN: ASPROD1, Group: XXXXX, ID# [id number], Questions: . THIS IS NOT INSURANCE.] indomethacin oral RxNorm: 5781 oral No Start Date Active aspirin 325 mg tablet RxNorm: 486806 1 Tablet(s) PO daily No Start Date 05/03/2016 Inactive levothyroxine 75 mcg tablet RxNorm: 077404 1 Tablet(s) PO every other day No Start Date 02/04/2015 Inactive takes qod with 200mcg oxycodone 10 mg tablet RxNorm: 7950677 1 Tablet(s) PO Q6 as needed No [...] Observation Code Item Item Code Result Date Free T4 Eta044 FREE T4 0.86 ng/dL 03/08/2017 Cbc With [...] 28.2 pg 03/08/2017 Cbc With Differential Ord2 [place]% 8.7 % 03/08/2017 Cbc With Differential Ord2 [...] 1.63 K/ul 03/08/2017 Cbc With Differential Ord2 [place] ABS# 0.9 K/ul 03/08/2017 Cbc With Differential Ord2 Eos ABS# 0.5 K/ul 03/08/2017 Cbc With Differential Ord2 Baso ABS# 0.0 K/ul 03/08/2017 Tsh Ord6 hTSH II 4.52 uIU/mL 03/08/2017 %Hba1C Ssc475 % HbA1c 08648- 6 8.5 % 03/08/2017 %Hba1C Gxv007 Gluc Ave 197 mg/dL 03/08/2017 %Hba1C Fkq025 % HbA1c 96195- 6 9.8 % 12/04/2016 %Hba1C Ekb016 Gluc Ave 235 mg/dL 12/04/2016 Tsh Ord6 hTSH II 10.65 uIU/mL 11/30/2016 Comp Metabolic Cix101 NA 134 mEq/L 11/30/2016 Comp Metabolic Svp862 K 5.0 mEq/L 11/30/2016 Comp Metabolic Vyw045 CL 95 mEq/L 11/30/2016 Comp Metabolic Cno328 CO2 34.0 mEq/L 11/30/2016 Comp Metabolic Lrj136 ANION GAP 10 11/30/2016 Comp Metabolic Ufa196 GLUCOSE 226 mg/dL 11/30/2016 Comp Metabolic Ocr244 Creat 1.3 mg/dL 11/30/2016 Comp Metabolic Gsq833 eGFR 56 ml/min/1.73m2 11/30/2016 Comp Metabolic Fen863 BUN 21 mg/dL 11/30/2016 Comp Metabolic Bcd968 B/C Ratio 15.7 Ratio 11/30/2016 Comp Metabolic Uqu430 CALCIUM 8.9 mg/dL 11/30/2016 Comp Metabolic Zmo870 ALK PHOS 112 U/L 11/30/2016 Comp Metabolic Aey521 AST(SGOT) 9 U/L 11/30/2016 Comp Metabolic Yyz678 ALT(SGPT) 7 U/L 11/30/2016 Comp Metabolic Xoz085 BILI T 0.6 mg/dL 11/30/2016 Comp Metabolic Zsr908 ALBUMIN 3.6 g/dL 11/30/2016 Comp Metabolic Vta934 TPRO 6.4 g/dL 11/30/2016 Comp Metabolic Rxp036 GLOB 2.9 g/dL 11/30/2016 Comp Metabolic Ycb300 A/G Ratio 1.2 Ratio 11/30/2016 Comp Metabolic Hth086 Osmo 278 mOsmo 11/30/2016 Lipid Ord30 CHOL [...] 99.1 fl 11/30/2016 Cbc With Differential Ord2 [place]% 7.9 % 11/30/2016 Cbc With Differential Ord2 [...] 1.34 K/ul 11/30/2016 Cbc With Differential Ord2 [place] ABS# 0.8 K/ul 11/30/2016 Cbc With Differential Ord2 Eos ABS# 0.3 K/ul 11/30/2016 Cbc With Differential Ord2 Baso ABS# 0.0 K/ul 11/30/2016 Free T4 Gep913 FREE T4 0.89 ng/dL 11/30/2016 Review of [...] Procedure Codes Date PPPS, SUBSEQ VISIT CPT-4: D7466Telvjhm 11/30/2016 PNEUMOCOCCAL VACC 13 JAVIER IM Formatting Model/CDA Sections, Assigned to SNOMED CT: 12269861 CPT-4: 20697Fmypqqx 11/30/2016 ADMIN PNEUMOCOCCAL VACCINE SNOMED CT: 12660001 CPT-4: S7886Zbxaeag 11/30/2016 Vital Signs Date Vital 03/08/2017 Blood Pressure 1: 124/70 Code: 8480-6 BMI: 39.4 Code: 18223-5 Heart Rate 1: 51 bpm Height: 5'10" SpO2: 94% Weight: 274 lbs 8 oz 12/06/2016 Blood Pressure 1: 126/62 Code: 8480-6 BMI: 40.3 Code: 34121-7 Heart Rate 1: 50 bpm Height: 5'10" SpO2: 94% Weight: 281 lbs 11/30/2016 Blood Pressure 1: 112/62 Code: 8480-6 BMI: 40.3 Code: 29136-8 Heart Rate 1: 52 bpm Height: 5'10" SpO2: 93% Waist Measure (cm): 135 cm Weight: 281 lbs 11/28/2016 Blood Pressure 1: 132/72 Code: 8480-6 BMI: 40.3 Code: 65394-8 Heart Rate 1: 50 bpm Height: 5'10" Weight: 281 lbs 05/04/2016 Blood Pressure 1: 128/78 Code: 8480-6 BMI: 38.5 Code: 87985-5 Heart Rate 1: 74 bpm Height: 5'10" SpO2: 98% Weight: 268 lbs 8 oz 11/04/2015 Blood Pressure 1: 136/60 Code: 8480-6 BMI: 38.0 Code: 37280-7 Heart Rate 1: 55 bpm Height: 5'10" SpO2: 94% Weight: 265 lbs 07/30/2015 Blood Pressure 1: 128/74 Code: 8480-6 BMI: 38.0 Code: 57777-9 Heart Rate 1: 47 bpm Height: 5'10" SpO2: 97% Weight: 265 lbs 01/26/2015 Blood Pressure 1: 122/64 Code: 8480-6 BMI: 34.0 Code: 88783-0 Heart Rate 1: 68 bpm Height: 5'10" [...] data Encounters Encounter Performer Location Codes Date ([id number]) [id number] EST. PATIENT, LEVEL IV Diagnosis: Type 2 diabetes mellitus with hyperglycemia[ICD10: E11.65] Diagnosis: Other specified hypothyroidism[ICD10: E03.8] Diagnosis: Essential (primary) hypertension[ICD10: I10] Sarah Sanchez MD, [facility] CPT-4: 65140 03/08/2017 [id number]) 43269 EST. PATIENT, LEVEL III Diagnosis: Type 2 diabetes mellitus with hyperglycemia[ICD10: E11.65] Diagnosis: Other specified hypothyroidism[ICD10: E03.8] Sarah Sanchez MD, [facility] CPT-4: 41991 12/06/2016 [id number]) 23023 EST. PATIENT, LEVEL IV Diagnosis: Essential (primary) hypertension[ICD10: I10] Diagnosis: Chronic kidney disease, stage 3 (moderate)[ICD10: N18.3] Dorene Sanchez MD, [facility] CPT-4: 28127 11/28/2016 [id number]) 93240 EST. PATIENT, LEVEL IV Diagnosis: Essential (primary) hypertension[ICD10: I10] Diagnosis: Chronic pain syndrome[ICD10: G89.4] Diagnosis: Chronic kidney disease, stage 3 (moderate)[ICD10: N18.3] Diagnosis: Vitamin B12 deficiency anemia due to intrinsic factor deficiency[ICD10: D51.0] Diagnosis: Other specified hypothyroidism[ICD10: E03.8] Dorene Sanchez MD, [facility] CPT-4: 31151 05/04/2016 00685 EST. PATIENT, LEVEL III Diagnosis: Chronic pain syndrome[ICD10: G89.4] Diagnosis: Essential (primary) hypertension[ICD10: I10] Diagnosis: Other specified hypothyroidism[ICD10: E03.8] Kiki Sanchez MD, [facility] CPT-4: 72755 11/04/2015 62632 EST. PATIENT, LEVEL III Diagnosis: Chronic pain syndrome[ICD10: G89.4] Diagnosis: Essential (primary) hypertension[ICD10: I10] [facility] CPT-4: 53315 07/30/2015 ([id number]) OFFICE/OUTPATIENT VISIT NEW Diagnosis: ESSENTIAL HYPERTENSION[ICD9: 401.9] Diagnosis: HYPOTHYROIDISM[ICD9: 244.9] Diagnosis: ANEMIA[ICD9: 285.9] Diagnosis: Vitamin B12 deficiency[ICD9: 266.2] Diagnosis: CHRONIC PAIN SYNDROME[ICD9: 338.4] Diagnosis: Chronic renal insufficiency, stage III (moderate)[ICD9: 585.3] Diagnosis: GOUT[ICD9: 274.9] Dorene Sanchez MD, [facility] CPT-4: 30755 01/26/2015 Plan of Care Planned Activity Notes [...] based on previous levels of control. 03/08/2017 Patient Education: Patient Medication Summary Completed 03/08/2017 Patient Education: Obesity Completed 03/08/2017 Care Plan: Comp Metabolic Pending 03/08/2017 Visit Plan: DM-new diagnosis-discussed diabetes in [...] surrogate. 11/30/2016 Appointment: [facility] [phone] [id number] [place] [address] - Annual Wellness Visit 11/30/2016 Patient Education: [...] fluids. 11/28/2016 [facility] [phone] [id number] ([facility] Moderate 11/28/2016 Patient Education: [...] YEAR SHINGLES VACCINATION TO BE ADMINISTERED AT [facility] RECOMMEND OBTAINING MEDICAL POWER OF WATCH CRYSTAL CUTTER AND LIVING WILL PATIENT DOES NOT HAVE [...] YEAR SHINGLES VACCINATION TO BE ADMINISTERED AT [facility] RECOM[facility] OBTAINING MEDICAL POWER OF WATCH CRYSTAL CUTTER AND LIVING WILL PATIENT DOES NOT HAVE [...] YEAR SHINGLES VACCINATION TO BE ADMINISTERED AT [facility] RECOM[facility] OBTAINING MEDICAL POWER OF WATCH CRYSTAL CUTTER AND LIVING WILL PATIENT DOES NOT HAVE [...]
--- OUTSIDE RECORDS SUMMARY | 2019-03-24 08:33 | XMS REPORT | CCD ---
Author Author Dorene Sanchez Organization [facility] Address [address] [place] [address] Phone Care Team Providers Care Solvent Plant Treater Name Role Phone PP Unavailable CCM Unavailable Summary Purpose Interface Exchange Insurance Providers Payer name Policy type / Coverage type Covered constitution party ID Effective Begin Date Effective End Date WPS Medicare Part B Medicare Part B [id number] Unknown Unknown Family history Father Diagnosis Age At Onset Stroke Unknown Mother Diagnosis Age At Onset Stroke Unknown Diabetes mellitus Type 2 Unknown Social History Social History Element Codes Description Effective Dates Tobacco history SNOMED CT: 260038149 Currently uses smokeless tobacco Chews 05/04/2016 Marital status Unknown 01/26/2015 Number of children Unknown 3 01/26/2015 Employment Unknown Retired 01/26/[address]: 302562607 Never drinks alcohol quit in July 2014 [...] Fill Instructions oxycodone 20 mg tablet RxNorm: 9686577 1/2 Tablet(s) PO Q6 as needed 03/08/2017 04/06/2017 Active bisoprolol 5 mg-hydrochlorothiazide 6.25 mg tablet RxNorm: 017264 TAKE ONE TABLET BY MOUTH DAILY 02/14/2017 05/14/2017 Active oxycodone 20 mg tablet RxNorm: 9184617 1/2 Tablet(s) PO Q6 as needed 02/08/2017 03/07/2017 Inactive oxycodone 20 mg tablet RxNorm: 1930753 1/2 Tablet(s) PO Q6 as needed 01/08/2017 02/06/2017 Inactive levothyroxine 175 mcg tablet RxNorm: 648035 1 Tablet(s) PO daily 12/06/2016 06/03/2017 Active [SAVINGS FOR NON-COVERED DRUGS -- BIN:[id number], PCN: ASPROD1, Group: XXXXX, ID# [id number], Questions: . THIS IS NOT INSURANCE.] oxycodone 20 mg tablet RxNorm: 3874810 1/2 Tablet(s) PO Q6 as needed 12/04/2016 01/02/2017 Inactive oxycodone 20 mg tablet RxNorm: 7644323 1/2 Tablet(s) PO Q6 as needed 11/09/2016 12/03/2016 Inactive bisoprolol 5 mg-hydrochlorothiazide 6.25 mg tablet RxNorm: 957734 TAKE ONE TABLET BY MOUTH DAILY 11/08/2016 02/05/2017 Inactive oxycodone 20 mg tablet RxNorm: 4235977 1/2 Tablet(s) PO Q6 as needed 10/05/2016 11/03/2016 Inactive oxycodone 20 mg tablet RxNorm: 3899838 1/2 Tablet(s) PO Q6 as needed 09/06/2016 10/04/2016 Inactive oxycodone 20 mg tablet RxNorm: 7075717 1/2 Tablet(s) PO Q6 as needed 08/07/2016 09/05/2016 Inactive oxycodone 20 mg tablet RxNorm: 9027257 1/2 Tablet(s) PO Q6 as needed 07/04/2016 08/06/2016 Inactive oxycodone 20 mg tablet RxNorm: 0895148 1/2 Tablet(s) PO Q6 as needed 05/29/2016 07/03/2016 Inactive levothyroxine 150 mcg tablet RxNorm: 052234 1 Tablet(s) PO daily 04/10/2016 04/09/2016 Inactive [SAVINGS FOR NON-COVERED DRUGS -- BIN:[id number], PCN: ASPROD1, Group: XXXXX, ID# XXXXXXX, Questions: . THIS IS NOT INSURANCE.] oxycodone 20 mg tablet RxNorm: 0236370 1/2 Tablet(s) PO Q6 as needed 04/10/2016 05/28/2016 Inactive levothyroxine 150 mcg tablet RxNorm: 802817 1 Tablet(s) PO daily 04/10/2016 10/06/2016 Inactive [SAVINGS FOR NON-COVERED DRUGS -- BIN:587049, PCN: ASPROD1, Group: XXXXX, ID# XXXXXXX, Questions: . THIS IS NOT INSURANCE.] bisoprolol 5 mg-hydrochlorothiazide 6.25 mg tablet RxNorm: 833789 1 Tablet(s) PO daily 02/16/2016 05/15/2016 Inactive oxycodone 20 mg tablet RxNorm: 5951542 1/2 Tablet(s) PO Q6 as needed 02/16/2016 04/09/2016 Inactive oxycodone 20 mg tablet RxNorm: 3432488 1/2 Tablet(s) PO Q6 as needed 01/04/2016 02/15/2016 Inactive bisoprolol 5 mg-hydrochlorothiazide 6.25 mg tablet RxNorm: 372608 1 Tablet(s) PO daily 11/19/2015 01/17/2016 Inactive bisoprolol 5 mg-hydrochlorothiazide 6.25 mg tablet RxNorm: 493293 1 Tablet(s) PO daily 11/04/2015 11/18/2015 Inactive oxycodone 20 mg tablet RxNorm: 0935049 1/2 Tablet(s) PO Q6 as needed 10/27/2015 01/03/2016 Inactive levothyroxine 150 mcg tablet RxNorm: 514034 1 Tablet(s) PO daily 08/26/2015 02/21/2016 Inactive [SAVINGS FOR NON-COVERED DRUGS -- BIN:795113, PCN: ASPROD1, Group: XXXXX, ID# [id number], Questions: . THIS IS NOT INSURANCE.] bisoprolol 5 mg-hydrochlorothiazide 6.25 mg tablet RxNorm: 650229 1 Tablet(s) PO daily 08/26/2015 10/24/2015 Inactive oxycodone 10 mg tablet RxNorm: 4827076 1 Tablet(s) PO Q6 as needed 05/06/2015 10/26/2015 Inactive levothyroxine 150 mcg tablet RxNorm: 701981 1 Tablet(s) PO daily 02/05/2015 08/03/2015 Inactive [SAVINGS FOR NON-COVERED DRUGS -- BIN:771678, PCN: ASPROD1, Group: XXXXX, ID# XXXXXXX, Questions: . THIS IS NOT INSURANCE.] Vitamin D2 50,000 unit capsule RxNorm: 600188 1 Capsule(s) PO weekly 02/05/2015 05/05/2015 Inactive [SAVINGS FOR NON-COVERED DRUGS -- BIN:245690, PCN: ASPROD1, Group: XXXXX, ID# XXXXXXX, Questions: . THIS IS NOT INSURANCE.] Vitamin D2 50,000 unit capsule RxNorm: 080358 1 Capsule(s) PO weekly 02/05/2015 02/04/2015 Inactive bisoprolol 5 mg-hydrochlorothiazide 6.25 mg tablet RxNorm: 166069 1 Tablet(s) PO daily 01/26/2015 02/24/2015 Inactive levothyroxine 200 mcg tablet RxNorm: 420196 1 Tablet(s) PO daily 01/26/2015 01/25/2015 Inactive levothyroxine 200 mcg tablet RxNorm: 007917 1 Tablet(s) PO every other day 01/26/2015 02/04/2015 Inactive [SAVINGS FOR NON-COVERED DRUGS -- BIN:179010, PCN: ASPROD1, Group: XXXXX, ID# XXXXXXX, Questions: . THIS IS NOT INSURANCE.] indomethacin oral RxNorm: 5781 oral No Start Date Active aspirin 325 mg tablet RxNorm: 173089 1 Tablet(s) PO daily No Start Date 05/03/2016 Inactive levothyroxine 75 mcg tablet RxNorm: 597398 1 Tablet(s) PO every other day No Start Date 02/04/2015 Inactive takes qod with 200mcg oxycodone 10 mg tablet RxNorm: 2600172 1 Tablet(s) PO Q6 as needed No [...] Item Item Code Result Date Free T4 Aio415 FREE T4 0.86 ng/dL 03/08/2017 Cbc With [...] 28.2 pg 03/08/2017 Cbc With Differential Ord2 [place]% 8.7 % 03/08/2017 Cbc With Differential Ord2 [...] 1.63 K/ul 03/08/2017 Cbc With Differential Ord2 [place] ABS# 0.9 K/ul 03/08/2017 Cbc With Differential Ord2 Eos ABS# 0.5 K/ul 03/08/2017 Cbc With Differential Ord2 Baso ABS# 0.0 K/ul 03/08/2017 Tsh Ord6 hTSH II 4.52 uIU/mL 03/08/2017 %Hba1C Xsw259 % HbA1c 43345- 6 8.5 % 03/08/2017 %Hba1C Mee699 Gluc Ave 197 mg/dL 03/08/2017 %Hba1C Jxh369 % HbA1c 13120- 6 9.8 % 12/04/2016 %Hba1C Wle802 Gluc Ave 235 mg/dL 12/04/2016 Tsh Ord6 hTSH II 10.65 uIU/mL 11/30/2016 Comp Metabolic Rig103 NA 134 mEq/L 11/30/2016 Comp Metabolic Xsw103 K 5.0 mEq/L 11/30/2016 Comp Metabolic Onf641 CL 95 mEq/L 11/30/2016 Comp Metabolic Vwi162 CO2 34.0 mEq/L 11/30/2016 Comp Metabolic Kjt383 ANION GAP 10 11/30/2016 Comp Metabolic Xbd324 GLUCOSE 226 mg/dL 11/30/2016 Comp Metabolic Xvg711 Creat 1.3 mg/dL 11/30/2016 Comp Metabolic Eyl929 eGFR 56 ml/min/1.73m2 11/30/2016 Comp Metabolic Yqi866 BUN 21 mg/dL 11/30/2016 Comp Metabolic Ucm150 B/C Ratio 15.7 Ratio 11/30/2016 Comp Metabolic Ohw340 CALCIUM 8.9 mg/dL 11/30/2016 Comp Metabolic Aog445 ALK PHOS 112 U/L 11/30/2016 Comp Metabolic Wkr243 AST(SGOT) 9 U/L 11/30/2016 Comp Metabolic Zhd505 ALT(SGPT) 7 U/L 11/30/2016 Comp Metabolic Ojk238 BILI T 0.6 mg/dL 11/30/2016 Comp Metabolic Tik987 ALBUMIN 3.6 g/dL 11/30/2016 Comp Metabolic Xhg189 TPRO 6.4 g/dL 11/30/2016 Comp Metabolic Amr964 GLOB 2.9 g/dL 11/30/2016 Comp Metabolic Aic828 A/G Ratio 1.2 Ratio 11/30/2016 Comp Metabolic Lru670 Osmo 278 mOsmo 11/30/2016 Lipid Ord30 CHOL [...] 30.6 pg 11/30/2016 Cbc With Differential Ord2 [place]% 7.9 % 11/30/2016 Cbc With Differential Ord2 MCHC 30.8 pg 11/30/2016 Cbc With Differential Ord2 Eos% 2.4 % 11/30/2016 Cbc With Differential Ord2 Baso% 0.1 % 11/30/2016 Cbc With Differential Ord2 PLT 243 K/ul 11/30/2016 Cbc With Differential Ord2 Neut ABS# 7.88 K/ul 11/30/2016 Cbc With Differential Ord2 RDW 16.1 % 11/30/2016 Cbc With Differential Ord2 Lymph ABS# 1.34 K/ul 11/30/2016 Cbc With Differential Ord2 [place] ABS# 0.8 K/ul 11/30/2016 Cbc With Differential Ord2 Eos ABS# 0.3 K/ul 11/30/2016 Cbc With Differential Ord2 Baso ABS# 0.0 K/ul 11/30/2016 Free T4 Eya242 FREE T4 0.89 ng/dL 11/30/2016 Review of [...] Procedure Codes Date PPPS, SUBSEQ VISIT CPT-4: A6622Hfqcbnq 11/30/2016 PNEUMOCOCCAL VACC 13 JAVIER IM Formatting Model/CDA Sections, Assigned to SNOMED CT: 62430565 CPT-4: 48211Wvohqmz 11/30/2016 ADMIN PNEUMOCOCCAL VACCINE SNOMED CT: 93058686 CPT-4: T8904Jrqjnud 11/30/2016 Vital Signs Date Vital 03/08/2017 Blood Pressure 1: 124/70 Code: 8480-6 BMI: 39.4 Code: 23195-2 Heart Rate 1: 51 bpm Height: 5'10" SpO2: 94% Weight: 274 lbs 8 oz 12/06/2016 Blood Pressure 1: 126/62 Code: 8480-6 BMI: 40.3 Code: 48317-1 Heart Rate 1: 50 bpm Height: 5'10" SpO2: 94% Weight: 281 lbs 11/30/2016 Blood Pressure 1: 112/62 Code: 8480-6 BMI: 40.3 Code: 99496-8 Heart Rate 1: 52 bpm Height: 5'10" SpO2: 93% Waist Measure (cm): 135 cm Weight: 281 lbs 11/28/2016 Blood Pressure 1: 132/72 Code: 8480-6 BMI: 40.3 Code: 66894-4 Heart Rate 1: 50 bpm Height: 5'10" Weight: 281 lbs 05/04/2016 Blood Pressure 1: 128/78 Code: 8480-6 BMI: 38.5 Code: 87483-7 Heart Rate 1: 74 bpm Height: 5'10" SpO2: 98% Weight: 268 lbs 8 oz 11/04/2015 Blood Pressure 1: 136/60 Code: 8480-6 BMI: 38.0 Code: 32850-8 Heart Rate 1: 55 bpm Height: 5'10" SpO2: 94% Weight: 265 lbs 07/30/2015 Blood Pressure 1: 128/74 Code: 8480-6 BMI: 38.0 Code: 13138-7 Heart Rate 1: 47 bpm Height: 5'10" SpO2: 97% Weight: 265 lbs 01/26/2015 Blood Pressure 1: 122/64 Code: 8480-6 BMI: 34.0 Code: 15478-2 Heart Rate 1: 68 bpm Height: 5'10" [...] data Encounters Encounter Performer Location Codes Date ([id number]) [id number] EST. PATIENT, LEVEL IV Diagnosis: Type 2 diabetes mellitus with hyperglycemia[ICD10: E11.65] Diagnosis: Other specified hypothyroidism[ICD10: E03.8] Diagnosis: Essential (primary) hypertension[ICD10: I10] Sarah Sanchez MD, [facility] CPT-4: 73865 03/08/2017 [id number]) 47191 EST. PATIENT, LEVEL III Diagnosis: Type 2 diabetes mellitus with hyperglycemia[ICD10: E11.65] Diagnosis: Other specified hypothyroidism[ICD10: E03.8] Sarah Sanchez MD, [facility] CPT-4: 49121 12/06/2016 [id number]) [id number] EST. PATIENT, LEVEL IV Diagnosis: Essential (primary) hypertension[ICD10: I10] Diagnosis: Chronic kidney disease, stage 3 (moderate)[ICD10: N18.3] Dorene Sanchez MD, [facility] CPT-4: 69668 11/28/2016 [id number]) 41809 EST. PATIENT, LEVEL IV Diagnosis: Essential (primary) hypertension[ICD10: I10] Diagnosis: Chronic pain syndrome[ICD10: G89.4] Diagnosis: Chronic kidney disease, stage 3 (moderate)[ICD10: N18.3] Diagnosis: Vitamin B12 deficiency anemia due to intrinsic factor deficiency[ICD10: D51.0] Diagnosis: Other specified hypothyroidism[ICD10: E03.8] Dorene Sanchez MD, [facility] CPT-4: 44117 05/04/2016 96536 EST. PATIENT, LEVEL III Diagnosis: Chronic pain syndrome[ICD10: G89.4] Diagnosis: Essential (primary) hypertension[ICD10: I10] Diagnosis: Other specified hypothyroidism[ICD10: E03.8] Kiki Sanchez MD, [facility] CPT-4: 47097 11/04/2015 22243 EST. PATIENT, LEVEL III Diagnosis: Chronic pain syndrome[ICD10: G89.4] Diagnosis: Essential (primary) hypertension[ICD10: I10] [facility] CPT-4: 40717 07/30/2015 ([id number]) OFFICE/OUTPATIENT VISIT NEW Diagnosis: ESSENTIAL HYPERTENSION[ICD9: 401.9] Diagnosis: HYPOTHYROIDISM[ICD9: 244.9] Diagnosis: ANEMIA[ICD9: 285.9] Diagnosis: Vitamin B12 deficiency[ICD9: 266.2] Diagnosis: CHRONIC PAIN SYNDROME[ICD9: 338.4] Diagnosis: Chronic renal insufficiency, stage III (moderate)[ICD9: 585.3] Diagnosis: GOUT[ICD9: 274.9] Dorene Sanchez MD, [facility] CPT-4: 93451 01/26/2015 Plan of Care Planned Activity Notes [...] surrogate. 11/30/2016 [facility]ment: [facility] [phone] [id number] [place] [address] - Annual Wellness Visit 11/30/2016 Patient Education: [...] App[facility]ment[facility] [phone] [id number] ([facility] min) Moderate 11/28/2016 Patient Education: [...] HOSPITAL PHARMACY RECOMMEND OBTAINING MEDICAL POWER OF CHANGE MANAGEMENT ADMINISTRATOR AND LIVING WILL PATIENT DOES NOT HAVE [...] YEAR SHINGLES VACCINATION TO BE ADMINISTERED AT [facility] RECOMMEND OBTAINING MEDICAL POWER OF CHANGE MANAGEMENT ADMINISTRATOR AND LIVING WILL PATIENT DOES NOT HAVE [...] YEAR SHINGLES VACCINATION TO BE ADMINISTERED AT [facility] RECOMMEND OBTAINING MEDICAL POWER OF CHANGE MANAGEMENT ADMINISTRATOR AND LIVING WILL PATIENT DOES NOT HAVE [...]
--- OUTSIDE RECORDS SUMMARY | 2019-03-24 08:37 | XMS REPORT | CCD ---
Author Author Dorene Sanchez Organization [facility] Address [address] [place] [address] Phone Care Team Providers Care Rn Paralegal Name Role Phone PP Unavailable CCM Unavailable Summary Purpose Interface Exchange Insurance Providers Payer name Policy type / Coverage type Covered green party ID Effective Begin Date Effective End Date WPS Medicare Part B Medicare Part B [id number] Unknown Unknown Family history Father Diagnosis Age At Onset Stroke Unknown Mother Diagnosis Age At Onset Stroke Unknown Diabetes mellitus Type 2 Unknown Social History Social History Element Codes Description Effective Dates Tobacco history SNOMED CT: 621645287 Currently uses smokeless tobacco Chews 05/04/2016 Marital status Unknown 01/26/2015 Number of children Unknown 3 01/26/2015 Employment Unknown Retired 01/26/[address]: 076005673 Never drinks alcohol quit in July 2014 [...] Fill Instructions oxycodone 20 mg tablet RxNorm: 4638095 1/2 Tablet(s) PO Q6 as needed 12/18/2018 01/16/2019 Active oxycodone 20 mg tablet RxNorm: 9173851 1/2 Tablet(s) PO Q6 as needed 11/12/2018 12/11/2018 Inactive gabapentin 100 mg capsule RxNorm: 125872 1 Capsule(s) BID 11/05/2018 05/03/2019 Active potassium chloride ER 10 mEq tablet,extended release RxNorm: 690308 TAKE ONE TABLET BY MOUTH DAILY 11/04/2018 11/19/2018 Inactive Probiotic 10 billion cell capsule RxNorm: 5108755 1 Capsule(s) PO BID 10/25/2018 10/24/2018 Inactive Keflex 500 mg capsule RxNorm: 947670 1 Capsule(s) PO QID 10/25/2018 10/31/2018 Inactive Probiotic 10 billion cell capsule RxNorm: 2770137 1 Capsule(s) PO BID 10/25/2018 10/31/2018 Inactive oxycodone 20 mg tablet RxNorm: 8464062 1/2 Tablet(s) PO Q6 as needed 10/14/2018 11/11/2018 Inactive Lasix 20 mg tablet RxNorm: 942376 1 Tablet(s) PO BID 10/10/2018 04/07/2019 Active Keflex 500 mg capsule RxNorm: 104902 1 Capsule(s) PO TID 10/10/2018 10/19/2018 Inactive potassium chloride ER 10 mEq tablet,extended release RxNorm: 308467 1 Tablet(s) PO daily 10/10/2018 11/03/2018 Inactive albuterol sulfate 2.5 mg/3 mL (0.083 %) solution for nebulization RxNorm: 864596 1 Milliliter(s) INH TID DX J44.9 10/04/2018 01/31/2019 Active gabapentin 100 mg capsule RxNorm: 428236 TAKE ONE CAPSULE BY MOUTH IN THE EVENING AT 5PM 09/24/2018 11/04/2018 Inactive oxycodone 20 mg tablet RxNorm: 7760929 1/2 Tablet(s) PO Q6 as needed 09/12/2018 10/11/2018 Inactive oxycodone 20 mg tablet RxNorm: 0144570 1/2 Tablet(s) PO Q6 as needed 08/15/2018 09/11/2018 Inactive oxycodone 20 mg tablet RxNorm: 3707502 1/2 Tablet(s) PO Q6 as needed 07/16/2018 08/14/2018 Inactive oxycodone 20 mg tablet RxNorm: 4709387 1/2 Tablet(s) PO Q6 as needed 06/14/2018 07/13/2018 Inactive gabapentin 100 mg capsule RxNorm: 675235 TAKE ONE CAPSULE BY MOUTH IN THE EVENING AT 5PM 05/30/2018 09/23/2018 Inactive oxycodone 20 mg tablet RxNorm: 4933121 1/2 Tablet(s) PO Q6 as needed 05/15/2018 06/13/2018 Inactive oxycodone 20 mg tablet RxNorm: 5695211 1/2 Tablet(s) PO Q6 as needed 04/12/2018 05/11/2018 Inactive oxycodone 20 mg tablet RxNorm: 2053110 1/2 Tablet(s) PO Q6 as needed 03/11/2018 04/09/2018 Inactive levothyroxine 200 mcg tablet RxNorm: 647519 1 Tablet(s) PO daily 02/21/2018 02/15/2019 Active Cipro 500 mg tablet RxNorm: 315416 1 Tablet(s) PO BID 02/21/2018 02/20/2018 Inactive levothyroxine 200 mcg tablet RxNorm: 545633 1 Tablet(s) PO daily 02/21/2018 02/20/2018 Inactive Cipro 500 mg tablet RxNorm: 455740 1 Tablet(s) PO BID 02/21/2018 03/02/2018 Inactive oxycodone 20 mg tablet RxNorm: 5260312 1/2 Tablet(s) PO Q6 as needed 02/12/2018 03/10/2018 Inactive oxycodone 20 mg tablet RxNorm: 1915281 1/2 Tablet(s) PO Q6 as needed 01/16/2018 02/11/2018 Inactive gabapentin 100 mg capsule RxNorm: 390561 TAKE ONE CAPSULE BY MOUTH IN THE EVENING AT 5PM 01/15/2018 05/29/2018 Inactive bisoprolol 5 mg-hydrochlorothiazide 6.25 mg tablet RxNorm: 909310 TAKE ONE TABLET BY MOUTH DAILY 01/01/2018 12/26/2018 Active oxycodone 20 mg tablet RxNorm: 0162638 1/2 Tablet(s) PO Q6 as needed 12/20/2017 01/14/2018 Inactive oxycodone 20 mg tablet RxNorm: 1326221 1/2 Tablet(s) PO Q6 as needed 11/20/2017 12/19/2017 Inactive Victoza 2-Dino 0.6 mg/0.1 mL (18 mg/3 mL) subcutaneous pen injector RxNorm: 183860 1.2 Milligram(s) SQ daily 11/08/2017 12/07/2017 Inactive oxycodone 20 mg tablet RxNorm: 0754975 1/2 Tablet(s) PO Q6 as needed 10/19/2017 11/17/2017 Inactive gabapentin 100 mg capsule RxNorm: 941331 1 Capsule(s) PO QPM at 5 pm 09/20/2017 01/14/2018 Inactive Lasix 20 mg tablet RxNorm: 741334 1 Tablet(s) QAM at 5pm 09/20/2017 03/18/2018 Inactive oxycodone 20 mg tablet RxNorm: 4263033 1/2 Tablet(s) PO Q6 as needed 09/18/2017 10/17/2017 Inactive oxycodone 20 mg tablet RxNorm: 7633574 1/2 Tablet(s) PO Q6 as needed 08/14/2017 09/12/2017 Inactive ketoconazole 2 % topical cream RxNorm: 853887 1 Gram(s) TOP BID to affected area until healed 08/03/2017 No Stop Date Active oxycodone 20 mg tablet RxNorm: 1379013 1/2 Tablet(s) PO Q6 as needed 07/17/2017 08/13/2017 Inactive pen needle, diabetic 31 gauge x 5/16" RxNorm: 1 Unit Dose Miscellaneous daily 06/25/2017 03/21/2018 Inactive daily use with victoza Bactrim DS 800 mg-160 mg tablet RxNorm: 352613 1 Tablet(s) PO BID Dr Norwood 06/25/2017 07/04/2017 Inactive Victoza 2-Dino 0.6 mg/0.1 mL (18 mg/3 mL) subcutaneous pen injector RxNorm: 280494 0.6 Milligram(s) SQ daily 06/25/2017 07/24/2017 Inactive doxycycline hyclate 100 mg tablet RxNorm: 775481 1 Tablet(s) PO BID Dr Norwood 06/21/2017 06/30/2017 Inactive oxycodone 20 mg tablet RxNorm: 7215888 1/2 Tablet(s) PO Q6 as needed 06/14/2017 07/13/2017 Inactive clindamycin 150 mg capsule RxNorm: 691200 1 Capsule(s) PO Q8 06/07/2017 06/16/2017 Inactive levothyroxine 175 mcg tablet RxNorm: 025214 TAKE ONE TABLET BY MOUTH DAILY 06/04/2017 09/01/2017 Inactive levothyroxine 175 mcg tablet RxNorm: 615046 TAKE ONE TABLET BY MOUTH DAILY 06/04/2017 11/30/2017 Inactive bisoprolol 5 mg-hydrochlorothiazide 6.25 mg tablet RxNorm: 067726 TAKE ONE TABLET BY MOUTH DAILY 05/24/2017 11/19/2017 Inactive oxycodone 20 mg tablet RxNorm: 8609977 1/2 Tablet(s) PO Q6 as needed 05/14/2017 06/12/2017 Inactive potassium chloride ER 10 mEq capsule,extended release RxNorm: 653341 TAKE ONE CAPSULE BY MOUTH DAILY NEEDED FOR 5 DAYS THEN NEEDED WITH LASIX 04/17/2017 10/13/2017 Inactive Lasix 20 mg tablet RxNorm: 367903 TAKE ONE TABLET BY MOUTH DAILY NEEDED 04/17/2017 09/19/2017 Inactive oxycodone 20 mg tablet RxNorm: 5137343 1/2 Tablet(s) PO Q6 as needed 04/12/2017 05/11/2017 Inactive Colcrys 0.6 mg tablet RxNorm: 372857 2 tabs at onset then may repeat 1 tab in 1 hours if needed- Tablet(s) PO 04/09/2017 No Stop Date Active then take daily until gout resolved Bactrim DS 800 mg-160 mg tablet RxNorm: 534265 1 Tablet(s) PO BID 04/09/2017 04/08/2017 Inactive dc levaquin Bactrim DS 800 mg-160 mg tablet RxNorm: 350698 1 Tablet(s) PO BID 04/09/2017 04/15/2017 Inactive dc levaquin Levaquin 500 mg tablet RxNorm: 125758 1 Tablet(s) PO daily 04/03/2017 04/02/2017 Inactive Levaquin 500 mg tablet RxNorm: 970000 1 Tablet(s) PO daily 04/03/2017 06/06/2017 Inactive indomethacin 25 mg capsule RxNorm: 085584 1 Capsule(s) PO TID PRN 03/22/2017 03/22/2017 Inactive Lasix 20 mg tablet RxNorm: 706429 1 Tablet(s) PO QDAY PRN 03/22/2017 04/16/2017 Inactive daily x 5 days then as needed Levaquin 500 mg tablet RxNorm: 620171 1 Tablet(s) PO daily 03/22/2017 03/31/2017 Inactive potassium chloride ER 10 mEq capsule,extended release RxNorm: 405653 1 Capsule(s) PO QDAY PRN 03/22/2017 04/16/2017 Inactive daily x 5 days then as needed with lasix oxycodone 20 mg tablet RxNorm: 9310780 1/2 Tablet(s) PO Q6 as needed 03/08/2017 04/06/2017 Inactive bisoprolol 5 mg-hydrochlorothiazide 6.25 mg tablet RxNorm: 287096 TAKE ONE TABLET BY MOUTH DAILY 02/14/2017 05/14/2017 Inactive oxycodone 20 mg tablet RxNorm: 9226890 1/2 Tablet(s) PO Q6 as needed 02/08/2017 03/07/2017 Inactive oxycodone 20 mg tablet RxNorm: 4436974 1/2 Tablet(s) PO Q6 as needed 01/08/2017 02/06/2017 Inactive levothyroxine 175 mcg tablet RxNorm: 507124 1 Tablet(s) PO daily 12/06/2016 06/03/2017 Inactive [SAVINGS FOR NON-COVERED DRUGS -- BIN:[id number], PCN: ASPROD1, Group: XXXXX, ID# XXXXXXX, Questions: . THIS IS NOT INSURANCE.] oxycodone 20 mg tablet RxNorm: 7526709 1/2 Tablet(s) PO Q6 as needed 12/04/2016 01/02/2017 Inactive oxycodone 20 mg tablet RxNorm: 7682346 1/2 Tablet(s) PO Q6 as needed 11/09/2016 12/03/2016 Inactive bisoprolol 5 mg-hydrochlorothiazide 6.25 mg tablet RxNorm: 343246 TAKE ONE TABLET BY MOUTH DAILY 11/08/2016 02/05/2017 Inactive oxycodone 20 mg tablet RxNorm: 3821522 1/2 Tablet(s) PO Q6 as needed 10/05/2016 11/03/2016 Inactive oxycodone 20 mg tablet RxNorm: 7320810 1/2 Tablet(s) PO Q6 as needed 09/06/2016 10/04/2016 Inactive oxycodone 20 mg tablet RxNorm: 5162493 1/2 Tablet(s) PO Q6 as needed 08/07/2016 09/05/2016 Inactive oxycodone 20 mg tablet RxNorm: 9123779 1/2 Tablet(s) PO Q6 as needed 07/04/2016 08/06/2016 Inactive oxycodone 20 mg tablet RxNorm: 4599678 1/2 Tablet(s) PO Q6 as needed 05/29/2016 07/03/2016 Inactive levothyroxine 150 mcg tablet RxNorm: 099207 1 Tablet(s) PO daily 04/10/2016 04/09/2016 Inactive [SAVINGS FOR NON-COVERED DRUGS -- BIN:[id number], PCN: ASPROD1, Group: XXXXX, ID# [id number], Questions: . THIS IS NOT INSURANCE.] oxycodone 20 mg tablet RxNorm: 4189624 1/2 Tablet(s) PO Q6 as needed 04/10/2016 05/28/2016 Inactive levothyroxine 150 mcg tablet RxNorm: 449872 1 Tablet(s) PO daily 04/10/2016 10/06/2016 Inactive [SAVINGS FOR NON-COVERED DRUGS -- BIN:[id number], PCN: ASPROD1, Group: XXXXX, ID# XXXXXXX, Questions: . THIS IS NOT INSURANCE.] bisoprolol 5 mg-hydrochlorothiazide 6.25 mg tablet RxNorm: 247541 1 Tablet(s) PO daily 02/16/2016 12/31/2017 Inactive oxycodone 20 mg tablet RxNorm: 8284228 1/2 Tablet(s) PO Q6 as needed 02/16/2016 04/09/2016 Inactive oxycodone 20 mg tablet RxNorm: 8587665 1/2 Tablet(s) PO Q6 as needed 01/04/2016 02/15/2016 Inactive bisoprolol 5 mg-hydrochlorothiazide 6.25 mg tablet RxNorm: 930736 1 Tablet(s) PO daily 11/19/2015 01/17/2016 Inactive bisoprolol 5 mg-hydrochlorothiazide 6.25 mg tablet RxNorm: 456957 1 Tablet(s) PO daily 11/04/2015 11/18/2015 Inactive oxycodone 20 mg tablet RxNorm: 4151219 1/2 Tablet(s) PO Q6 as needed 10/27/2015 01/03/2016 Inactive levothyroxine 150 mcg tablet RxNorm: 989828 1 Tablet(s) PO daily 08/26/2015 02/21/2016 Inactive [SAVINGS FOR NON-COVERED DRUGS -- BIN:[id number], PCN: ASPROD1, Group: XXXXX, ID# XXXXXXX, Questions: . THIS IS NOT INSURANCE.] bisoprolol 5 mg-hydrochlorothiazide 6.25 mg tablet RxNorm: 316152 1 Tablet(s) PO daily 08/26/2015 10/24/2015 Inactive oxycodone 10 mg tablet RxNorm: 0527729 1 Tablet(s) PO Q6 as needed 05/06/2015 10/26/2015 Inactive levothyroxine 150 mcg tablet RxNorm: 393032 1 Tablet(s) PO daily 02/05/2015 08/03/2015 Inactive [SAVINGS FOR NON-COVERED DRUGS -- BIN:[id number], PCN: ASPROD1, Group: XXXXX, ID# [id number], Questions: . THIS IS NOT INSURANCE.] Vitamin D2 50,000 unit capsule RxNorm: 209508 1 Capsule(s) PO weekly 02/05/2015 05/05/2015 Inactive [SAVINGS FOR NON-COVERED DRUGS -- BIN:505089, PCN: ASPROD1, Group: XXXXX, ID# XXXXXXX, Questions: . THIS IS NOT INSURANCE.] Vitamin D2 50,000 unit capsule RxNorm: 435263 1 Capsule(s) PO weekly 02/05/2015 02/04/2015 Inactive bisoprolol 5 mg-hydrochlorothiazide 6.25 mg tablet RxNorm: 054801 1 Tablet(s) PO daily 01/26/2015 02/24/2015 Inactive levothyroxine 200 mcg tablet RxNorm: 331056 1 Tablet(s) PO daily 01/26/2015 01/25/2015 Inactive levothyroxine 200 mcg tablet RxNorm: 917822 1 Tablet(s) PO every other day 01/26/2015 02/04/2015 Inactive [SAVINGS FOR NON-COVERED DRUGS -- BIN:390913, PCN: ASPROD1, Group: XXXXX, ID# XXXXXXX, Questions: . THIS IS NOT INSURANCE.] aspirin 81 mg chewable tablet RxNorm: 889595 1 Tablet(s) PO daily No Start Date Active Plavix 75 mg tablet RxNorm: 394479 1 Tablet(s) PO daily manage by Dr Baig No Start Date Active simvastatin 40 mg tablet RxNorm: 028653 1 Tablet(s) PO QHS managed by Dr Baig No Start Date Active Colcrys 0.6 mg tablet RxNorm: 195147 2 tabs at onset then may repeat 1 tab in 1 hours if needed- Tablet(s) PO No Start Date 04/08/2017 Inactive then take daily until gout resolved aspirin 325 mg tablet RxNorm: 219058 1 Tablet(s) PO daily No Start Date 05/03/2016 Inactive levothyroxine 75 mcg tablet RxNorm: 998486 1 Tablet(s) PO every other day No Start Date 02/04/2015 Inactive takes qod with 200mcg oxycodone 10 mg tablet RxNorm: 3466915 1 Tablet(s) PO Q6 as needed No Start Date 05/05/2015 Inactive ketoconazole 2 % topical cream RxNorm: 868921 1 Gram(s) TOP BID to affected area [...] Code Item Item Code Result Date %Hba1C Dss950 % HbA1c 34385- 6 6.4 % 08/30/2018 %Hba1C Pya475 Gluc Ave 137 mg/dL 08/30/2018 Culture Urine [id number] URINE CULTURE SEE NOTES 02/22/2018 Urine Culture [...] 24.5 pg 02/20/2018 Cbc With Differential Ord2 [place]% 8.9 % 02/20/2018 Cbc With Differential Ord2 [...] 0.81 K/ul 02/20/2018 Cbc With Differential Ord2 [place] ABS# 0.7 K/ul 02/20/2018 Cbc With Differential Ord2 Eos ABS# 0.4 K/ul 02/20/2018 Cbc With Differential Ord2 Baso ABS# 0.0 K/ul 02/20/2018 %Hba1C Vqe974 % HbA1c 02896- 6 7.7 % 02/20/2018 %Hba1C Bvf791 Gluc Ave 174 mg/dL 02/20/2018 Lipase Goj660 LIPASE 17 U/L 02/20/2018 Microalbumin Mpr307 MicroAlb 6.5 mg/dL 02/20/2018 Amylase Ord34 AMYLASE 15 U/L 02/20/2018 Free T4 Jhe979 FREE T4 0.61 ng/dL 02/20/2018 Lipid Ord30 CHOL 203 mg/dL 02/20/2018 Lipid Ord30 HDL 7.0 mg/dl 02/20/2018 Lipid Ord30 TRIG 271 mg/dL 02/20/2018 Lipid Ord30 LDL 142 mg/dL 02/20/2018 Lipid Ord30 C/HDL 29.0 Ratio 02/20/2018 Comp Metabolic Fdu073 NA 134 mEq/L 02/20/2018 Comp Metabolic Owe688 K 3.6 mEq/L 02/20/2018 Comp Metabolic Muh575 CL 96 mEq/L 02/20/2018 Comp Metabolic Czt680 CO2 29.0 mEq/L 02/20/2018 Comp Metabolic Oba650 ANION GAP 13 02/20/2018 Comp Metabolic Szc483 GLUCOSE 165 mg/dL 02/20/2018 Comp Metabolic Cxu339 Creat 1.2 mg/dL 02/20/2018 Comp Metabolic Bjv074 eGFR 63 ml/min/1.73m2 02/20/2018 Comp Metabolic Ham046 BUN 14 mg/dL 02/20/2018 Comp Metabolic Mke824 B/C Ratio 11.6 Ratio 02/20/2018 Comp Metabolic Oao983 CALCIUM 8.5 mg/dL 02/20/2018 Comp Metabolic Ier329 ALK PHOS 633 U/L 02/20/2018 Comp Metabolic Rgp866 AST(SGOT) 112 U/L 02/20/2018 Comp Metabolic Ulv807 ALT(SGPT) 148 U/L 02/20/2018 Comp Metabolic Gqi895 BILI T 6.8 mg/dL 02/20/2018 Comp Metabolic Kfq893 ALBUMIN 3.3 g/dL 02/20/2018 Comp Metabolic Kaj216 TPRO 5.9 g/dL 02/20/2018 Comp Metabolic Deb119 GLOB 2.6 g/dL 02/20/2018 Comp Metabolic Pyj864 A/G Ratio 1.3 Ratio 02/20/2018 Comp Metabolic Qir105 Osmo 272 mOsmo 02/20/2018 Total Psa Ord10 [...] Metabolic Ord15 CALCIUM 9.2 mg/dL 11/09/2017 %Hba1C Iil829 % HbA1c 98022- 6 8.0 % 11/09/2017 %Hba1C Csj026 Gluc Ave 183 mg/dL 11/09/2017 Metabolic Ord15 [...] Ord15 CALCIUM 8.7 mg/dL 06/25/2017 Culture Wound [id number] WOUND CULTURE SEE NOTES 04/09/2017 Culture Wound [id number] Continued Results 04/09/2017 Amylase Ord34 AMYLASE 19 [...] 27.9 pg 03/22/2017 Cbc With Differential Ord2 [place]% 8.3 % 03/22/2017 Cbc With Differential Ord2 [...] 1.35 K/ul 03/22/2017 Cbc With Differential Ord2 [place] ABS# 1.4 K/ul 03/22/2017 Cbc With Differential Ord2 Eos ABS# 0.2 K/ul 03/22/2017 Cbc With Differential Ord2 Baso ABS# 0.0 K/ul 03/22/2017 Comp Metabolic Bio641 NA 134 mEq/L 03/22/2017 Comp Metabolic Dtx563 K 4.5 mEq/L 03/22/2017 Comp Metabolic Igh660 CL 93 mEq/L 03/22/2017 Comp Metabolic Bwe060 CO2 31.0 mEq/L 03/22/2017 Comp Metabolic Gnc342 ANION GAP 15 03/22/2017 Comp Metabolic Olc427 GLUCOSE 198 mg/dL 03/22/2017 Comp Metabolic Mcn485 Creat 1.5 mg/dL 03/22/2017 Comp Metabolic Gxm370 eGFR 50 ml/min/1.73m2 03/22/2017 Comp Metabolic Uvt820 BUN 32 mg/dL 03/22/2017 Comp Metabolic Jcx124 B/C Ratio 21.6 Ratio 03/22/2017 Comp Metabolic Xme713 CALCIUM 8.4 mg/dL 03/22/2017 Comp Metabolic Kke049 ALK PHOS 245 U/L 03/22/2017 Comp Metabolic Dyo309 AST(SGOT) 18 U/L 03/22/2017 Comp Metabolic Nuc235 ALT(SGPT) 17 U/L 03/22/2017 Comp Metabolic Lzd768 BILI T 0.8 mg/dL 03/22/2017 Comp Metabolic Xgh805 ALBUMIN 2.9 g/dL 03/22/2017 Comp Metabolic Hcv080 TPRO 6.3 g/dL 03/22/2017 Comp Metabolic Jub069 GLOB 3.4 g/dL 03/22/2017 Comp Metabolic Hrg491 A/G Ratio 0.8 Ratio 03/22/2017 Comp Metabolic Rjh653 Osmo 281 mOsmo 03/22/2017 Lipase Ylq543 LIPASE 12 U/L 03/22/2017 Comp Metabolic Onx997 NA 142 mEq/L 03/09/2017 Comp Metabolic Jts693 K 4.8 mEq/L 03/09/2017 Comp Metabolic Yir978 CL 103 mEq/L 03/09/2017 Comp Metabolic Yxc631 CO2 30.0 mEq/L 03/09/2017 Comp Metabolic Yjj448 ANION GAP 14 03/09/2017 Comp Metabolic Ozu908 GLUCOSE 152 mg/dL 03/09/2017 Comp Metabolic Lfk568 Creat 1.3 mg/dL 03/09/2017 Comp Metabolic Fee739 eGFR 56 ml/min/1.73m2 03/09/2017 Comp Metabolic Hxm916 BUN 23 mg/dL 03/09/2017 Comp Metabolic Njr141 B/C Ratio 17.3 Ratio 03/09/2017 Comp Metabolic Trc110 CALCIUM 8.5 mg/dL 03/09/2017 Comp Metabolic Eqt646 ALK PHOS 97 U/L 03/09/2017 Comp Metabolic Qrq068 AST(SGOT) 10 U/L 03/09/2017 Comp Metabolic Fox340 ALT(SGPT) 6 U/L 03/09/2017 Comp Metabolic Xwg035 BILI T 0.4 mg/dL 03/09/2017 Comp Metabolic Cte587 ALBUMIN 3.4 g/dL 03/09/2017 Comp Metabolic Lpb159 TPRO 6.2 g/dL 03/09/2017 Comp Metabolic Bhz301 GLOB 2.8 g/dL 03/09/2017 Comp Metabolic Abs232 A/G Ratio 1.2 Ratio 03/09/2017 Comp Metabolic Hgz400 Osmo 290 mOsmo 03/09/2017 Free T4 Fpt563 FREE T4 0.86 ng/dL 03/08/2017 Cbc With [...] 28.2 pg 03/08/2017 Cbc With Differential Ord2 [place]% 8.7 % 03/08/2017 Cbc With Differential Ord2 [...] 1.63 K/ul 03/08/2017 Cbc With Differential Ord2 [place] ABS# 0.9 K/ul 03/08/2017 Cbc With Differential Ord2 Eos ABS# 0.5 K/ul 03/08/2017 Cbc With Differential Ord2 Baso ABS# 0.0 K/ul 03/08/2017 Tsh Ord6 hTSH II 4.52 uIU/mL 03/08/2017 %Hba1C Qeg922 % HbA1c 93959- 6 8.5 % 03/08/2017 %Hba1C Odu347 Gluc Ave 197 mg/dL 03/08/2017 %Hba1C Jlr801 % HbA1c 45011- 6 9.8 % 12/04/2016 %Hba1C Oll976 Gluc Ave 235 mg/dL 12/04/2016 Tsh Ord6 hTSH II 10.65 uIU/mL 11/30/2016 Comp Metabolic Ttq035 NA 134 mEq/L 11/30/2016 Comp Metabolic Xwn806 K 5.0 mEq/L 11/30/2016 Comp Metabolic Fdc845 CL 95 mEq/L 11/30/2016 Comp Metabolic Fqe687 CO2 34.0 mEq/L 11/30/2016 Comp Metabolic Mnw761 ANION GAP 10 11/30/2016 Comp Metabolic Ccs357 GLUCOSE 226 mg/dL 11/30/2016 Comp Metabolic Zgq559 Creat 1.3 mg/dL 11/30/2016 Comp Metabolic Kjm277 eGFR 56 ml/min/1.73m2 11/30/2016 Comp Metabolic Mzk660 BUN 21 mg/dL 11/30/2016 Comp Metabolic Dvb957 B/C Ratio 15.7 Ratio 11/30/2016 Comp Metabolic Gjh792 CALCIUM 8.9 mg/dL 11/30/2016 Comp Metabolic Hpn599 ALK PHOS 112 U/L 11/30/2016 Comp Metabolic Xjx284 AST(SGOT) 9 U/L 11/30/2016 Comp Metabolic Uld778 ALT(SGPT) 7 U/L 11/30/2016 Comp Metabolic Sfj353 BILI T 0.6 mg/dL 11/30/2016 Comp Metabolic Xbl151 ALBUMIN 3.6 g/dL 11/30/2016 Comp Metabolic Etd381 TPRO 6.4 g/dL 11/30/2016 Comp Metabolic Lho429 GLOB 2.9 g/dL 11/30/2016 Comp Metabolic Yid170 A/G Ratio 1.2 Ratio 11/30/2016 Comp Metabolic Kfa296 Osmo 278 mOsmo 11/30/2016 Lipid Ord30 CHOL [...] 30.6 pg 11/30/2016 Cbc With Differential Ord2 [place]% 7.9 % 11/30/2016 Cbc With Differential Ord2 [...] 1.34 K/ul 11/30/2016 Cbc With Differential Ord2 [place] ABS# 0.8 K/ul 11/30/2016 Cbc With Differential Ord2 Eos ABS# 0.3 K/ul 11/30/2016 Cbc With Differential Ord2 Baso ABS# 0.0 K/ul 11/30/2016 Free T4 Ors016 FREE T4 0.89 ng/dL 11/30/2016 Review of [...] Codes Date ADMIN PNEUMOCOCCAL VACCINE SNOMED CT: 81465194 CPT-4: G0009 02/05/2018 Pneumococcal Polysaccharide Vaccine, 23-Valent, Ad CPT-4: 24509 02/05/2018 PPPS, SUBSEQ VISIT CPT- 4: G0439 11/30/2017 URINALYSIS NONAUTO W/O SCOPE CPT-4: 60805 03/22/2017 URINALYSIS NONAUTO W/O SCOPE CPT-4: 88143 03/21/2017 PPPS, SUBSEQ VISIT CPT- 4: G0439 11/30/2016 PNEUMOCOCCAL VACC 13 JAVIER IM Formatting Model/CDA Sections, Assigned to SNOMED CT: 72657975 CPT-4: 01219Ugwxqyl 11/30/2016 ADMIN PNEUMOCOCCAL VACCINE SNOMED CT: 26485815 CPT-4: G0009 11/30/2016 Vital Signs Date Vital 10/18/2018 Blood Pressure 1: 118/70 Code: 8480-6 BMI: 39.0 Code: 05468-8 Heart Rate 1: 86 bpm Height: 5'10" SpO2: 95% Weight: 272 lbs 10/14/2018 Blood Pressure 1: 120/56 Code: 8480-6 Heart Rate 1: 67 bpm Height: 5'10" SpO2: 92% 10/10/2018 Blood Pressure 1: 126/70 Code: 8480-6 BMI: 34.7 Code: 24593-9 Heart Rate 1: 80 bpm Height: 5'10" SpO2: 96% Temperature: 37.1 (C) / 98.7 (F) Weight: 242 lbs 10/04/2018 Blood Pressure 1: 12070 Code: 8480-6 Height: 5'10" SpO2: 96% 08/29/2018 Blood Pressure 1: 104/60 Code: 8480-6 BMI: 34.6 Code: 69385-6 Heart Rate 1: 68 bpm Height: 5'10" SpO2: 98% Weight: 241 lbs 02/25/2018 Blood Pressure 1: 120/70 Code: 8480-6 BMI: 37.0 Code: 22953-1 Heart Rate 1: 51 bpm Height: 5'10" SpO2: 97% Weight: 258 lbs 02/20/2018 Blood Pressure 1: 124/70 Code: 8480-6 BMI: 38.0 Code: 66445-4 Heart Rate 1: 60 bpm Height: 5'10" SpO2: 96% Weight: 265 lbs 02/05/2018 Blood Pressure 1: 116/66 Code: 8480-6 BMI: 38.0 Code: 86997-3 Heart Rate 1: 63 bpm Height: 5'10" SpO2: 98% Weight: 265 lbs 11/30/2017 Blood Pressure 1: 132/60 Code: 8480-6 BMI: 37.0 Code: 77551-0 Heart Rate 1: 100 bpm Height: 5'10" SpO2: 96% Waist Measure (cm): 122 cm Weight: 258 lbs 11/08/2017 Blood Pressure 1: 126/64 Code: 8480-6 BMI: 37.2 Code: 76075-2 Heart Rate 1: 92 bpm Height: 5'10" SpO2: 94% Weight: 259 lbs 09/20/2017 Blood Pressure 1: 122 Code: 8480-6 BMI: 36.9 Code: 98926-8 Heart Rate 1: 57 bpm Height: 5'10" SpO2: 96% Weight: 257 lbs 06/25/2017 Blood Pressure 1: 124 Code: 8480-6 BMI: 37.0 Code: 71166-9 Height: 5'10" Weight: 258 lbs 06/07/2017 Blood Pressure 1: 12264 Code: 8480-6 BMI: 37.0 Code: 70781-6 Heart Rate 1: 60 bpm Height: 5'10" SpO2: 94% Temperature: 36.4 (C) / 97.6 (F) Weight: 258 lbs 05/03/2017 Blood Pressure 1: 118 Code: 8480-6 BMI: 38.2 Code: 79203-9 Heart Rate 1: 52 bpm Height: 5'10" SpO2: 98% Weight: 266 lbs 04/02/2017 Blood Pressure 1: 118 Code: 8480-6 BMI: 38.2 Code: 41166-8 Heart Rate 1: 53 bpm Height: 5'10" SpO2: 93% Weight: 266 lbs 03/26/2017 Blood Pressure 1: 114 Code: 8480-6 BMI: 38.3 Code: 25492-4 Height: 5'10" Weight: 267 lbs 03/22/2017 Blood Pressure 1: 12264 Code: 8480-6 BMI: 40.0 Code: 77320-5 Heart Rate 1: 52 bpm Height: 5'10" SpO2: 94% Weight: 279 lbs 03/08/2017 Blood Pressure 1: 124/ Code: 8480-6 BMI: 39.4 Code: 34459-4 Heart Rate 1: 51 bpm Height: 5'10" SpO2: 94% Weight: 274 lbs 8 oz 12/06/2016 Blood Pressure 1: 126/62 Code: 8480-6 BMI: 40.3 Code: 21222-9 Heart Rate 1: 50 bpm Height: 5'10" SpO2: 94% Weight: 281 lbs 11/30/2016 Blood Pressure 1: 112 Code: 8480-6 BMI: 40.3 Code: 72941-5 Heart Rate 1: 52 bpm Height: 5'10" SpO2: 93% Waist Measure (cm): 135 cm Weight: 281 lbs 11/28/2016 Blood Pressure 1: 132/72 Code: 8480-6 BMI: 40.3 Code: 14582-8 Heart Rate 1: 50 bpm Height: 5'10" Weight: 281 lbs 05/04/2016 Blood Pressure 1: 128/78 Code: 8480-6 BMI: 38.5 Code: 40018-7 Heart Rate 1: 74 bpm Height: 5'10" SpO2: 98% Weight: 268 lbs 8 oz 11/04/2015 Blood Pressure 1: 136/60 Code: 8480-6 BMI: 38.0 Code: 47592-5 Heart Rate 1: 55 bpm Height: 5'10" SpO2: 94% Weight: 265 lbs 07/30/2015 Blood Pressure 1: 128/74 Code: 8480-6 BMI: 38.0 Code: 00271-1 Heart Rate 1: 47 bpm Height: 5'10" SpO2: 97% Weight: 265 lbs 01/26/2015 Blood Pressure 1: 122/64 Code: 8480-6 BMI: 34.0 Code: 08513-3 Heart Rate 1: 68 bpm Height: 5'10" [...] data Encounters Encounter Performer Location Codes Date [id number] EST. PATIENT, LEVEL III Diagnosis: Localized edema[ICD10: R60.0] Diagnosis: Cellulitis of left lower limb[ICD10: L03.116] Diagnosis: Cellulitis of right lower limb[ICD10: L03.115] Kiki Sanchez MD, [facility] CPT-4: 72355 10/18/2018 [id number] EST. PATIENT, LEVEL III Diagnosis: Localized edema[ICD10: R60.0] Diagnosis: Cellulitis of left lower limb[ICD10: L03.116] Diagnosis: Cellulitis of right lower limb[ICD10: L03.115] Diagnosis: Chronic obstructive pulmonary disease, unspecified[ICD10: J44.9] Diagnosis: Weakness[ICD10: R53.1] Kiki Sanchez MD, [facility] CPT-4: 71593 10/14/2018 11370 EST. PATIENT, LEVEL III Diagnosis: Localized edema[ICD10: R60.0] Diagnosis: Cellulitis of left lower limb[ICD10: L03.116] Diagnosis: Cellulitis of right lower limb[ICD10: L03.115] [facility] CPT-4: 66670 10/10/2018 ([id number]) [id number] EST. PATIENT, LEVEL IV Diagnosis: Type 2 diabetes mellitus with foot ulcer[ICD10: E11.621] Diagnosis: Essential (primary) hypertension[ICD10: I10] Diagnosis: Malignant neoplasm of prostate[ICD10: C61] Diagnosis: Chronic obstructive pulmonary disease, unspecified[ICD10: J44.9] Diagnosis: Hypoxemia[ICD10: R09.02] Sarah Sanchez MD, [facility] CPT-4: 35058 10/04/2018 ([id number]) 38473 EST. PATIENT, LEVEL IV Diagnosis: Type 2 diabetes mellitus with hyperglycemia[ICD10: E11.65] Diagnosis: Essential (primary) hypertension[ICD10: I10] Diagnosis: Malignant neoplasm of prostate[ICD10: C61] Sarah Sanchez MD, [facility] CPT-4: 94641 08/29/2018 ([id number]) 76498 EST. PATIENT, LEVEL IV Diagnosis: Malignant neoplasm of prostate[ICD10: C61] Dorene Sanchez MD, [facility] CPT-4: 82911 02/25/2018 53319 EST. PATIENT, LEVEL IV Diagnosis: Generalized abdominal pain[ICD10: R10.84] Diagnosis: Unspecified jaundice[ICD10: R17] Diagnosis: Gross hematuria[ICD10: R31.0] Kiki Sanchez MD, [facility] CPT-4: 99842 02/20/2018 ([id number]) 68702 EST. PATIENT, LEVEL IV Diagnosis: Type 2 diabetes mellitus with hyperglycemia[ICD10: E11.65] Diagnosis: Essential (primary) hypertension[ICD10: I10] Diagnosis: Chronic kidney disease, stage 3 (moderate)[ICD10: N18.3] Diagnosis: Chronic pain syndrome[ICD10: G89.4] Diagnosis: Other specified hypothyroidism[ICD10: E03.8] Diagnosis: Encounter for screening for malignant neoplasm of prostate[ICD10: Z12.5] Diagnosis: Encounter for immunization[ICD10: Z23] Sarah Sanchez MD, [facility] CPT-4: 48094 02/05/2018 ([id number]) 96738 EST. PATIENT, LEVEL IV Diagnosis: Type 2 diabetes mellitus with hyperglycemia[ICD10: E11.65] Diagnosis: Essential (primary) hypertension[ICD10: I10] Dorene Sanchez MD, [facility] CPT-4: 91080 11/08/2017 ([id number]) 91679 EST. PATIENT, LEVEL IV Diagnosis: Type 2 diabetes mellitus with hyperglycemia[ICD10: E11.65] Diagnosis: Chronic pain syndrome[ICD10: G89.4] Diagnosis: Essential (primary) hypertension[ICD10: I10] Diagnosis: Chronic kidney disease, stage 3 (moderate)[ICD10: N18.3] Diagnosis: Localized edema[ICD10: R60.0] Dorene Sanchez MD, [facility] CPT-4: 11063 09/20/2017 ([id number]) 35726 EST. PATIENT, LEVEL III Diagnosis: Type 2 diabetes mellitus with hyperglycemia[ICD10: E11.65] Sarah Sanchez MD, [facility] CPT-4: 10450 06/25/2017 ([id number]) 52683 EST. PATIENT, LEVEL III Diagnosis: Cellulitis of left lower limb[ICD10: L03.116] Sarah Sanchez MD, [facility] CPT-4: 94496 06/07/2017 ([id number]) 06134 EST. PATIENT, LEVEL III Diagnosis: Localized edema[ICD10: R60.0] Diagnosis: Type 2 diabetes mellitus with foot ulcer[ICD10: E11.621] Sarah Sanchez MD, [facility] CPT-4: 35102 05/03/2017 ([id number]) 39175 EST. PATIENT, LEVEL III Diagnosis: Cellulitis of left lower limb[ICD10: L03.116] Diagnosis: Localized edema[ICD10: R60.0] Sarah Sanchez MD, [facility] CPT-4: 81424 04/02/2017 ([id number]) Miscellaneous no charge Diagnosis: Localized edema[ICD10: R60.0] Diagnosis: Cellulitis of left lower limb[ICD10: L03.116] Sarah Sanchez MD, [facility] CPT-4: 63160 03/26/2017 ([id number]) 85455 EST. 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 PATIENT, LEVEL IV Diagnosis: Type 2 diabetes mellitus with hyperglycemia[ICD10: E11.65] Diagnosis: Other specified hypothyroidism[ICD10: E03.8] Diagnosis: Essential (primary) hypertension[ICD10: I10] Sarah Sanchez MD, [facility] CPT-4: 07761 03/08/2017 ([id number]) 03390 EST. PATIENT, LEVEL III Diagnosis: Type 2 diabetes mellitus with hyperglycemia[ICD10: E11.65] Diagnosis: Other specified hypothyroidism[ICD10: E03.8] Sarah Sanchez MD, [facility] CPT-4: 22572 12/06/2016 ([id number]) 19295 EST. PATIENT, LEVEL IV Diagnosis: Essential (primary) hypertension[ICD10: I10] Diagnosis: Chronic kidney disease, stage 3 (moderate)[ICD10: N18.3] Dorene Sanchez MD, [facility] CPT-4: 29142 11/28/2016 ([id number]) 56465 EST. PATIENT, LEVEL IV Diagnosis: Essential (primary) hypertension[ICD10: I10] Diagnosis: Chronic pain syndrome[ICD10: G89.4] Diagnosis: Chronic kidney disease, stage 3 (moderate)[ICD10: N18.3] Diagnosis: Vitamin B12 deficiency anemia due to intrinsic factor deficiency[ICD10: D51.0] Diagnosis: Other specified hypothyroidism[ICD10: E03.8] Dorene Sanchez MD, [facility] CPT-4: 64833 05/04/2016 66952 EST. PATIENT, LEVEL III Diagnosis: Chronic pain syndrome[ICD10: G89.4] Diagnosis: Essential (primary) hypertension[ICD10: I10] Diagnosis: Other specified hypothyroidism[ICD10: E03.8] Kiki Sanchez MD, [facility] CPT-4: 80859 11/04/2015 10974 EST. PATIENT, LEVEL III Diagnosis: Chronic pain syndrome[ICD10: G89.4] Diagnosis: Essential (primary) hypertension[ICD10: I10] Kiki Sanchez MD, [facility] CPT-4: 48069 07/30/2015 ([id number]) OFFICE/OUTPATIENT VISIT NEW Diagnosis: ESSENTIAL HYPERTENSION[ICD9: 401.9] Diagnosis: HYPOTHYROIDISM[ICD9: 244.9] Diagnosis: ANEMIA[ICD9: 285.9] Diagnosis: Vitamin B12 deficiency[ICD9: 266.2] Diagnosis: CHRONIC PAIN SYNDROME[ICD9: 338.4] Diagnosis: Chronic renal insufficiency, stage III (moderate)[ICD9: 585.3] Diagnosis: GOUT[ICD9: 274.9] [facility] CPT-4: 35362 01/26/2015 Plan of Care Planned Activity Notes [...] warmth, discharge. 10/18/2018 Appointment: Kiki Menjivar WPtel: [address] [place], [place] [phone] (30 min) [facility] 10/18/2018 Patient Education: [...] weakness 10/14/2018 Appointment: Kiki Menjivar WPtel: [phone] [facility] (30 min) Complex 10/14/2018 Patient Education: [...] warmth, discharge. 10/10/2018 Appointment: Kiki Menjivar WPtel: [facility] (30 min) Complex 10/10/2018 Patient Education: Patient Medication Summary Completed 10/10/2018 Visit Plan: DM with peripheral neuropathy-paperwork completed for diabetic shoes and will fax to Dr Bauer HTN-controlled -no changes Lemxlizcd-KQFY-GXP-prostate cancer with mets- patient qualifies for oxygen-oxy gen saturation dropped to 86% on room air during ambulation but increased to 99% on 2L NC at rest-will send orders to [facility] for continue oxygen at 2L per nasal cannula 10/04/2018 Appointment: Sarah Hernandes WPtel: [phone] [place] (30 min) Complex 10/04/2018 Patient [...] Dr Moreno 08/29/2018 Appointment: Sarah Hernandes WPtel: [phone] (15 min) Moderate 08/29/2018 Patient Education: Patient Medication Summary Completed 08/29/2018 Referral: Edgard Rivera MD WPtel: [address] Moreno. Patient informed. Referral info faxed. Completed 02/27/2018 Visit Plan: Recurrent prostate cancer - I have recommended a referral to Dr. Rivera. We discussed the case at length today- he is not interested in extensive treatment, but if possible to extend his quantity and quality of life, he would like to try. 02/25/2018 Appointment: Dorene Sanchez WPtel: [facility] [place] (15 min) Moderate 02/25/2018 Patient Education: Patient Medication Summary Completed 02/25/2018 Care Plan: Referral Order SNOMED-CT : [id number] Pending 02/25/2018 Visit Plan: Intermittent abdominal pain, jaundice, itching - will check labs and treat as indicated - pt is to go to the ER with any acute change in symptoms or any acute concerns. 02/20/2018 Appointment: Kiki Menjivar WPtel: [address] [place], [place] [phone] (30 min) Complex 02/20/2018 Patient Education: Patient [...] control. 02/05/2018 App[facility]ment: [phone] [phone] (30 min) Complex 02/05/2018 Patient Education: [...] surrogate. 11/30/2017 Appointment: [facility] Hernandes WPtel[facility] [address] [phone] [place] [address] - Annual Wellness Visit 11/30/2017 Patient Education: [...] to 1.2 11/08/2017 Appointment: Dore[facility] Sanchez [phone] [facility] (15 min) Moderate 11/08/2017 Patient Education: Patient [...] over-medication. 09/20/2017 Appointment: Dorene Sanchez [facility]el[phone] [facility] (15 min) Moderate 09/20/2017 Patient Education: Patient [...] glucose control. 06/25/2017 Appointment: Sarah Hernandes WPtel: [phone] (30 min) Complex 06/25/2017 Patient Education: Patient Medication Summary Completed 06/25/2017 Appointment: Sarah Hernandes WPtel: [phone] (30 min) Complex 06/22/2017 Visit Plan: Cellulitis - start oral antibiotics as previously directed, return to clinic as previously directed, call for acute change in symptoms, worsening redness, warmth, discharge. 06/07/2017 Appointment: Sarah Hernandes WPtel: [phone] (30 min) Complex 06/07/2017 Patient Education: Patient Medication Summary Completed 06/07/2017 Patient Education: Obesity Completed 06/07/2017 Appointment: Dore[facility] Sanchez [facility]el[facility] [phone] [facility] (15 min) Moderate 05/31/2017 Visit Plan: Edema-significantly improved-no changes Ulcer-left lower leg and foot-seeing Dr Norwood at wound care-appt scheduled with Dr Frausto for vascular evaluation 05/03/2017 Appointment: Sarah Hernandes WPtel: [phone] [place] (15 min) Moderate 05/03/2017 Patient Education: Patient Medication Summary Completed 05/03/2017 Patient Education: Obesity Completed 05/03/2017 Visit Plan: Egftlptnaa-clhqaugdo-mmthnmv to finish abx-no further treatment indicated Edema-significantly improved-no longer weeping-continue unna boots twice weekly with home health 04/02/2017 Appointment: Sarah Hernandes WPtel: [phone] [place] (30 min) Complex 04/02/2017 Patient Education: Patient Medication Summary Completed 04/02/2017 Patient Education: Obesity Completed 04/02/2017 Visit Plan: Cellulitis-left leg-continue levaquin Edema-increase lasix/potassium-consult [facility] for unna boots/dressing changes 03/26/2017 Appointment: Sarah Hernandes WPtel: [address] [place], [place] [phone] [place] (15 min) Moderate 03/26/2017 Patient Education: [...] indomethacin-stop aleve 03/22/2017 Appointment: Sarah Hernandes WPtel: [phone] (15 min) Moderate 03/22/2017 Patient Education: [...] of control. 03/08/2017 Appointment: Sarah Hernandes WPtel: [address] [place], [place] [phone] (30 min) Complex 03/08/2017 Patient Education: Patient [...] surrogate. 11/30/2016 Appointment: [facility] Hernandes WPtel[facility] [phone] [phone] [facility] - Annual Wellness Visit 11/30/2016 Patient [...] fluids. 11/28/2016 Appointment: Dorene Sanchez [facility]el[phone] [phone] (15 min) Moderate 11/28/2016 Patient Education: Patient [...] 01/26/2015 Referral: Edgard Rivera MD WPtel: [address] [facility] Referral Appointment Requested Instructions Comment . 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 WOUND CARE APPT ANTIBIOTIC TO [facility] . [...] in symptoms, worsening redness, warmth, discharge. . 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 Cellulitis-left leg-continue levaquin Edema-increase lasix/potassium-consult [facility] for unna boots/dressing changes . Recurrent prostate [...] labs in 3 months-sooner if needed . Diabetes Mellitus - controlled - per [...] fax to Dr Bauer HTN-controlled -no changes Stxonxhma-VNDH-KCN-prostate cancer with mets- patient qualifies for oxygen- [...]
[2019-03-24] MEDS ORDERED: MIDAZOLAM 2 MG/2 ML (VERSED) VIAL ONE (08:49)
[2019-03-24] MEDS ORDERED: PROPOFOL INJECTION 50 ML IV ONE (08:49)
[2019-03-24] MEDS ORDERED: KETAMINE/NaCl 50 MG/5 ML SYRINGE ONE (08:55)
[2019-03-24] MEDS ORDERED: fentaNYL INJECTION 100 MCG/2 ML AMP ONE (08:58)
--- NOTE | 2019-03-24 09:15 | Progress Note-Pre Operative ---
Pre-Operative Progress Note H&P Reviewed The H&P was reviewed, patient examined and no changes noted. Date Seen by Provider: Mar 24, 2019 Time Seen by Provider: 09:14 Date H&P Reviewed: Mar 24, 2019 Time H&P Reviewed: 09:14 Pre-Operative Diagnosis: Hallux Malleus, Ulceration, left foot ELY PICHARDO DPM Mar 24, 2019 09:15
--- OUTSIDE RECORDS SUMMARY | 2019-03-24 09:36 | XMS REPORT | Continuity of Care Document ---
Author Organization Unknown Address Unknown Allergies Active Description Code Type Severity Reaction Onset Reported/Identified Relationship to Patient Clinical Status Yes NKANo Known Allergies NKA Miscellaneous Allergy Unknown N/A 04/26/2006 Medications There is no data. Problems Date Dx Coded Attending Type Code Diagnosis Diagnosed By 11/18/2011 Ot 454.0 LEG VARICOSITY W ULCER 01/31/2012 Ot 185 MALIGN NEOPL PROSTATE 01/31/2012 Ot 244.9 HYPOTHYROIDISM NOS 01/31/2012 Ot 305.01 ALCOHOL ABUSE- CONTINUOUS 01/31/2012 Ot 305.1 TOBACCO USE DISORDER 01/31/2012 Ot 401.9 HYPERTENSION NOS 01/31/2012 Ot V58.69 OTH MED,LT,CURRENT USE 05/13/2012 Ot 185 MALIGN NEOPL PROSTATE [...] 07/29/2014 KIMBERLY RENEE MD Ot 782.3 07/29/2014 KIMBERLY RENEE MD Ot 790.6 07/29/2014 VÍCTOR RICHARD, KIMBERLY M [...] KIMBERLY RENEE MD M Ot V10.46 07/30/2014 VÍCTOR RICHARD, KIMBERLY M Ot V15.3 07/30/2014 KIMBERLY RENEE MD M Ot 454.0 08/01/2014 KIMBERLY RENEE MD Ot 211.1 BENIGN NEOPLASM STOMACH 08/01/2014 KIMBERLY REENE MD Ot 244.9 HYPOTHYROIDISM NOS 08/01/2014 KIMBERLY RENEE MD Ot 266.2 B-COMPLEX DEFIC NEC 08/01/2014 KIMBERLY RENEE MD Ot 276.8 HYPOPOTASSEMIA 08/01/2014 KIMBERLY RENEE MD Ot 281.9 DEFICIENCY ANEMIA NOS 08/01/2014 KIMBERLY RENEE MD M Ot 285.9 08/01/2014 KIMBERLY RENEE MD Ot 287.5 THROMBOCYTOPENIA NOS 08/01/2014 KIMBERLY RENEE MD Ot 303.91 ALCOH DEP NEC/NOS-CONTIN 08/01/2014 KIMBERLY RENEE MD Ot 305.1 TOBACCO USE DISORDER 08/01/2014 KIMBERLY RENEE MD Ot 327.23 OBSTRUCTIVE SLEEP APNEA (ADULT) (PEDIATR 08/01/2014 KIMBERLY RENEE MD Ot 401.9 HYPERTENSION NOS 08/01/2014 KIMBERLY RENEE MD Ot 414.01 CORONARY ATHEROSCLEROSIS OF [place] CORON 08/01/2014 KIMBERLY RENEE MD Ot 425.4 [...] RENEE MD Ot V10.46 HX-PROSTATIC MALIGNANCY 08/01/2014 VÍCTOR RICHARD, KIMBERLY Morenita Ot V15.3 HX OF IRRADIATION 08/01/2014 VÍCTOR RICHARD, KIMBERLY Morenita Ot V45.82 PERCUTANEOUS TRANSLUM CORON ANGIOPLASTY 08/04/2014 VÍCTOR RICHARD, KIMBERLY Xavier Ot 454.0 LEG VARICOSITY W ULCER 02/04/2015 FLORENCE RICHARD, GAVIN Freed Ot 280.9 02/04/2015 FLORENCE RICHARD, GAVIN Freed Ot 536.8 02/04/2015 FLORENCE RICHARD, GAVIN A Ot E934.0 02/05/2015 FLORENCE RICHARD, GAVIN A Ot 280.9 02/05/2015 FLORENCE RICHARD, GAVIN A Ot 536.8 02/05/2015 FLORENCE RICHARD, GAVIN A Ot E934.0 02/10/2015 FLORENCE RICHARD, GAVIN A Ot 280.9 02/10/2015 FLORENCE RICHARD, GAVIN Freed Ot 536.8 02/10/2015 FLORENCE RICHARD, GAVIN Freed Ot E934.0 02/12/2015 FLOERNCE RICHARD, GAVIN A Ot 280.9 02/12/2015 FLORENCE RICHARD, GAVIN A Ot 536.8 02/12/2015 FLORENCE RICHARD, GAVIN A Ot E934.0 02/17/2015 FLORENCE RICHARD, GAVIN A Ot 280.9 02/17/2015 FLORENCE RICHARD, GAVIN A Ot 536.8 02/17/2015 FLORENCE RICHARD, GAVIN A Ot E934.0 03/26/2015 FLORENCE RICHARD, GAVIN A Ot 280.9 03/26/2015 FLORENCE RICHARD, GAVIN A Ot 536.8 03/26/2015 FLORENCE RICHARD, GAVIN Freed Ot E934.0 05/02/2015 GAVIN HENRIQUEZ MD Ot 280.9 IRON DEFIC ANEMIA NOS 05/02/2015 FLORENCE RICHARD, GAVIN Freed Ot 536.8 STOMACH FUNCTION DIS NEC 05/02/2015 FLORENCE RICHARD, GAVIN Freed Ot E934.0 ADV EFF IRON COMPOUNDS 04/09/2017 Ot 185 MALIGN NEOPL PROSTATE 04/09/2017 Ot 553.3 DIAPHRAGMATIC HERNIA 04/09/2017 Ot 185 MALIGN NEOPL PROSTATE 04/09/2017 GAVIN HENRIQUEZ MD Ot 280.9 IRON DEFIC ANEMIA NOS 04/09/2017 FLORENCEGAVIN POLANCO MD Ot 536.8 STOMACH FUNCTION DIS NEC 04/09/2017 GAVIN HENRIQUEZ MD Ot E934.0 ADV EFF IRON COMPOUNDS 04/11/2017 LILLIAN PARSONS MD, Ot E11.621 TYPE 2 DIABETES MELLITUS WITH FOOT ULCER 04/11/2017 LILLIAN PARSONS MD, Ot E11.65 TYPE 2 DIABETES MELLITUS WITH HYPERGLYCE 04/11/2017 LILLIAN PARSONS MD Ot 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 04/11/2017 LILLIAN PARSONS MD Ot 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 04/11/2017 LILLIAN PARSONS MD Ot I87.323 CHRONIC VENOUS HTN W INFLAMMATION OF [place] 04/11/2017 LILLIAN PARSONS MD, Ot L97.412 NON-PRS CHR ULCER OF RIGHT HEEL AND MIDF 04/11/2017 LILLIAN PARSONS MD Ot L97.512 NON-PRS CHRONIC ULCER OTH PRT RIGHT FOOT 04/12/2017 LILLIAN PARSONS MD, Ot E11.621 TYPE 2 DIABETES MELLITUS WITH FOOT ULCER 04/12/2017 LILLIAN PARSONS MD, Ot E11.65 TYPE 2 DIABETES MELLITUS WITH HYPERGLYCE 04/12/2017 LILLIAN PARSONS MD Ot 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 04/12/2017 LILLIAN PARSONS MD Ot 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412 NON-PRS CHR ULCER OF RIGHT HEEL AND MIDF 04/16/2017 LILLIAN PARSONS MD, Ot L97.512 NON-PRS CHRONIC ULCER OTH PRT RIGHT FOOT 04/24/2017 Ot 185 MALIGN NEOPL PROSTATE 04/24/2017 GAVIN HENRIQUEZ MD Ot 280.9 IRON DEFIC ANEMIA NOS 04/24/2017 GAVIN HENRIQUEZ MD Ot 536.8 STOMACH FUNCTION DIS NEC 04/24/2017 GAVIN HENRIQUEZ MD Ot E934.0 ADV EFF IRON COMPOUNDS 04/24/2017 DOMINIC RICHARD FACC, JORGE A FACP CCDS Ot I10 ESSENTIAL (PRIMARY) HYPERTENSION 04/24/2017 DOMINIC RICHARD FACC, ALI FACP CCDS Ot I25.10 ATHSCL HEART DISEASE OF [place] CORONARY 04/24/2017 DOMINIC RICHARD FACC, ALI FACP CCDS Ot I70.213 ATHSCL [place] ARTERIES OF EXTRM W INTRMT 04/24/2017 DOMINIC RICHARD FACC, ALI FACP CCDS Ot 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 04/24/2017 DOMINIC RICHARD FACC, JORGEA FACP CCDS Ot 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 04/24/2017 DOMINIC RICHARD FACC, ALI FACP CCDS Ot L97.429 NON-PRS CHRONIC ULCER OF LEFT HEEL AND M 04/24/2017 DOMINIC RICHARD FACC, ALI FACP CCDS Ot L97.529 NON-PRESSURE CHRONIC ULCER OTH PRT LEFT 04/24/2017 DOMINIC RICHARD FACC, ALI FACP CCDS Ot M10.9 GOUT, UNSPECIFIED 04/24/2017 DOMINIC RICHARD FACC, ALI FACP CCDS Ot R73.09 OTHER ABNORMAL GLUCOSE 04/24/2017 DOMINIC RICHARD FACC, JORGE A FACP CCDS Ot Z72.0 TOBACCO USE 04/24/2017 DOMINIC RICHARD FACC, ALI FACP CCDS Ot Z79.899 OTHER RESIDENTIAL (CURRENT) DRUG THERAPY 04/24/2017 DOMINIC RICHARD FACC, JORGE A FACP CCDS Ot Z95.5 PRESENCE OF CORONARY ANGIOPLASTY IMPLANT 05/01/2017 DOMINIC RICHARD FACC, ALI FACP CCDS Ot I10 ESSENTIAL (PRIMARY) HYPERTENSION 05/01/2017 DOMINIC RICHARD FACC, ALI FACP CCDS Ot I25.10 ATHSCL HEART DISEASE OF [place] CORONARY 05/01/2017 DOMINIC RICHARD FACC, ALI FACP CCDS Ot I70.213 ATHSCL [place] ARTERIES OF EXTRM W INTRMT 05/01/2017 DOMINIC RICHARD FACC, JORGE A FACP CCDS Ot 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 05/01/2017 DOMINIC RICHARD FACC, ALI FACP CCDS Ot 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 05/01/2017 [...] R73.09 OTHER ABNORMAL GLUCOSE 05/01/2017 DOMINIC RICHARD [facility], ALI [facility] CCDS Ot Z72.0 TOBACCO USE 05/01/2017 DOMINIC RICHARD [facility], [place] [facility] CCDS Ot Z79.899 OTHER RESIDENTIAL (CURRENT) DRUG THERAPY 05/01/2017 DOMINIC RICHARD [facility], [place] [facility] CCDS Ot Z95.5 PRESENCE OF CORONARY ANGIOPLASTY IMPLANT 05/10/2017 INDERJIT DAWSON [employer] Ot E11.621 TYPE 2 DIABETES MELLITUS WITH FOOT ULCER 05/10/2017 INDERJIT DAWSON [employer] Ot E11.65 TYPE 2 DIABETES MELLITUS WITH HYPERGLYCE 05/10/2017 INDERJIT DAWSON [employer] Ot 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 05/10/2017 INDERJIT DAWSON [employer] Ot 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 05/10/2017 INDERJIT DAWSON [employer] Ot I87.323 CHRONIC VENOUS HTN W INFLAMMATION OF [place] 05/10/2017 INDERJIT DAWSON [employer] Ot L97.422 NON-PRS CHR ULCER OF LEFT HEEL AND MIDFO 05/10/2017 INDERJIT DAWSON [employer] Ot L97.522 NON-PRS CHRONIC ULCER OTH PRT LEFT FOOT 05/16/2017 LILLIAN PARSONS MD Ot E11.621 TYPE 2 DIABETES MELLITUS WITH FOOT ULCER 05/16/2017 LILLIAN PARSONS MD Ot E11.65 TYPE 2 DIABETES MELLITUS WITH HYPERGLYCE 05/16/2017 LILLIAN PARSONS MD Ot 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 05/16/2017 LILLIAN PARSONS MD Ot 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 05/16/2017 [...] DIABETES MELLITUS WITH HYPERGLYCE 05/23/2017 LILLIAN PARSONS MD, Ot 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 05/23/2017 LILLIAN PARSONS MD Ot 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 05/23/2017 [...] 05/23/2017 LILLIAN PARSONS MD, Ot 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 05/23/2017 LILLIAN PARSONS MD, Ot 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 05/23/2017 LILLIAN PARSONS MD, Ot I87.323 CHRONIC VENOUS HTN W INFLAMMATION OF [place] 05/23/2017 LILLIAN PARSONS MD Ot L97.422 NON-PRS CHR ULCER OF LEFT HEEL AND MIDFO 05/23/2017 LILLIAN PARSONS MD, Ot L97.522 NON-PRS CHRONIC ULCER OTH PRT LEFT FOOT 05/23/2017 LILLIAN PARSONS MD Ot R60.0 LOCALIZED EDEMA 06/01/2017 INDERJIT DAWSON [employer] Ot E11.621 TYPE 2 DIABETES MELLITUS WITH FOOT ULCER 06/01/2017 INDERJIT DAWSON [employer] Ot E11.65 TYPE 2 DIABETES MELLITUS WITH HYPERGLYCE 06/01/2017 INDERJIT DAWSON [employer] Ot 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 06/01/2017 INDERJIT DAWSON APRN Ot 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 06/01/2017 INDERJIT DAWSON APRN Ot I87.323 CHRONIC VENOUS HTN W INFLAMMATION OF [place] 06/01/2017 INDERJIT DAWSON [employer] Ot L97.422 NON-PRS CHR ULCER OF LEFT HEEL AND MIDFO 06/01/2017 INDERJIT DAWSON [employer] Ot L97.522 NON-PRS CHRONIC ULCER OTH PRT LEFT FOOT 06/03/2017 LILLIAN PARSONS MD Ot E11.621 TYPE 2 DIABETES MELLITUS WITH FOOT ULCER 06/03/2017 LILLIAN PARSONS MD Ot E11.65 TYPE 2 DIABETES MELLITUS WITH HYPERGLYCE 06/03/2017 LILLIAN PARSONS MD Ot 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 06/03/2017 LILLIAN PARSONS MD Ot 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 06/03/2017 LILLIAN PARSONS MD Ot I87.323 CHRONIC VENOUS HTN W INFLAMMATION OF [place] 06/03/2017 LILLIAN PARSONS MD Ot L97.422 NON-PRS CHR ULCER OF LEFT HEEL AND MIDFO 06/03/2017 LILLIAN PARSONS MD Ot L97.522 NON-PRS CHRONIC ULCER OTH PRT LEFT FOOT 06/08/2017 LILLIAN PARSONS MD, Ot E11.621 TYPE 2 DIABETES MELLITUS WITH FOOT ULCER 06/08/2017 LILLIAN PARSONS MD, Ot E11.65 TYPE 2 DIABETES MELLITUS WITH HYPERGLYCE 06/08/2017 LILLIAN PARSONS MD Ot 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 06/08/2017 LILLIAN PARSONS MD Ot 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 06/08/2017 [...] 06/19/2017 LILLIAN PARSONS MD Ot 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 06/19/2017 LILLIAN PARSONS MD Ot 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 06/19/2017 [...] 06/25/2017 LILLIAN PARSONS MD Ot 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 06/25/2017 LILLIAN PARSONS MD Ot 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 06/25/2017 LILILAN PARSONS MD Ot I87.323 CHRONIC VENOUS HTN W INFLAMMATION OF [place] 06/25/2017 LILLIAN PARSONS MD Ot L97.422 NON-PRS CHR ULCER OF LEFT HEEL AND MIDFO 06/25/2017 LILLIAN PARSONS MD Ot L97.522 NON-PRS CHRONIC ULCER OTH PRT LEFT FOOT 06/28/2017 LILLIAN PARSONS MD Ot E11.621 TYPE 2 DIABETES MELLITUS WITH FOOT ULCER 06/28/2017 LILLIAN PARSONS MD, Ot E11.65 TYPE 2 DIABETES MELLITUS WITH HYPERGLYCE 06/28/2017 LILLIAN PARSONS MD Ot 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 06/28/2017 LILLIAN PARSONS MD Ot 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 06/28/2017 [...] 07/03/2017 LILLIAN PARSONS MD Ot 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 07/03/2017 LILLIAN PARSONS MD Ot 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 07/03/2017 LILLIAN PARSONS MD Ot I87.323 CHRONIC VENOUS HTN W INFLAMMATION OF [place] 07/03/2017 LILLIAN PARSONS MD Ot L97.422 NON-PRS CHR ULCER OF LEFT HEEL AND MIDFO 07/03/2017 LILLIAN PARSONS MD, Ot L97.522 NON-PRS CHRONIC ULCER OTH PRT LEFT FOOT 07/11/2017 LILLIAN PARSONS MD Ot E11.621 TYPE 2 DIABETES MELLITUS WITH FOOT ULCER 07/11/2017 LILLIAN PARSONS MD, Ot E11.65 TYPE 2 DIABETES MELLITUS WITH HYPERGLYCE 07/11/2017 LILLIAN PARSONS MD Ot 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 07/11/2017 LILLIAN PARSONS MD Ot 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 07/11/2017 [...] 07/11/2017 LILLIAN PARSONS MD Ot 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 07/11/2017 LILLIAN PARSONS MD Ot 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 07/11/2017 LILLIAN PARSONS MD Ot L97.422 NON-PRS CHR ULCER OF LEFT HEEL AND MIDFO 07/11/2017 LILLIAN PARSONS MD Ot L97.522 NON-PRS CHRONIC ULCER OTH PRT LEFT FOOT 07/19/2017 LILLIAN PARSONS MD Ot E11.621 TYPE 2 DIABETES MELLITUS WITH FOOT ULCER 07/19/2017 LILLIAN PARSONS MD, Ot E11.65 TYPE 2 DIABETES MELLITUS WITH HYPERGLYCE 07/19/2017 LILLIAN PARSONS MD Ot 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 07/19/2017 LILLIAN PARSONS MD, Ot 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 07/19/2017 LILLIAN PARSONS MD Ot I87.323 CHRONIC VENOUS HTN W INFLAMMATION OF [place] 07/19/2017 LILLIAN PARSONS MD, Ot L97.422 NON-PRS CHR ULCER OF LEFT HEEL AND MIDFO 07/19/2017 LILLIAN PARSONS MD, Ot L97.522 NON-PRS CHRONIC ULCER OTH PRT LEFT FOOT 07/26/2017 LILLIAN PARSONS MD, Ot E11.621 TYPE 2 DIABETES MELLITUS WITH FOOT ULCER 07/26/2017 LILLIAN PARSONS MD, Ot E11.65 TYPE 2 DIABETES MELLITUS WITH HYPERGLYCE 07/26/2017 LILLIAN PARSONS MD Ot 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 07/26/2017 LILLIAN PARSONS MD Ot 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 07/26/2017 [...] 08/03/2017 LILLIAN PARSONS MD, Ot 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 08/03/2017 LILLIAN PARSONS MD, Ot I87.323 CHRONIC VENOUS HTN W INFLAMMATION OF [place] 08/03/2017 LILLIAN PARSONS MD, Ot L97.522 NON-PRS CHRONIC ULCER OTH PRT LEFT FOOT 08/10/2017 LILLIAN PARSONS MD, Ot E11.621 TYPE 2 DIABETES MELLITUS WITH FOOT ULCER 08/10/2017 LILLIAN PARSONS MD Ot 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 08/10/2017 LILLIAN PARSONS MD, Ot I87.323 CHRONIC VENOUS HTN W INFLAMMATION OF [place] 08/10/2017 LILLIAN PARSONS MD, Ot L97.522 NON-PRS CHRONIC ULCER OTH PRT LEFT FOOT 08/13/2017 LILLIAN PARSONS MD, Ot E11.621 TYPE 2 DIABETES MELLITUS WITH FOOT ULCER 08/13/2017 LILLIAN PARSONS MD Ot I87.323 CHRONIC VENOUS HTN W INFLAMMATION OF [place] 08/13/2017 LILLIAN PARSONS MD, Ot L97.522 NON-PRS CHRONIC ULCER OTH PRT LEFT FOOT 08/15/2017 LILLIAN PARSONS MD, Ot E11.621 TYPE 2 DIABETES MELLITUS WITH FOOT ULCER 08/15/2017 LILLIAN PARSONS MD Ot I70.245 ATHSCL [place]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 UL 08/15/2017 LILLIAN PARSONS MD Ot I87.323 CHRONIC VENOUS HTN W INFLAMMATION OF [place] 08/15/2017 LILLIAN PARSONS MD Ot L97.522 NON-PRS CHRONIC ULCER OTH PRT LEFT FOOT 08/21/2017 LILLIAN PARSONS MD Ot E11.621 TYPE 2 DIABETES MELLITUS WITH FOOT ULCER 08/21/2017 LILLIAN PARSONS MD, Ot I70.245 ATHSCL [place]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 [facility] [place] 08/21/2017 LILLIAN PARSONS MD Ot I87.323 CHRONIC [...] MELLITUS WITH FOOT ULCER 09/07/2017 LILLIAN PARSONS MD, Ot I87.323 CHRONIC VENOUS HTN W INFLAMMATION OF [place] 09/07/2017 LILLIAN PARSONS MD, Ot L97.522 NON-PRS CHRONIC ULCER OTH PRT LEFT FOOT 09/12/2017 LILLIAN PARSONS MD, Ot E11.621 TYPE 2 DIABETES MELLITUS WITH FOOT ULCER 09/12/2017 LILLIAN PARSONS MD, Ot I87.323 CHRONIC VENOUS [...] 02/26/2018 LILLIAN PARSONS MD Ot 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 02/26/2018 LILLIAN PARSONS MD, Ot 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 02/26/2018 [...] 02/26/2018 LILLIAN PARSONS MD Ot 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] MELLITUS WITH FOOT ULCER 02/26/2018 INDERJIT DAWSON APRN Ot E11.65 TYPE 2 DIABETES MELLITUS WITH HYPERGLYCE 02/26/2018 INDERJIT DAWSON APRN Ot 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 02/26/2018 INDERJIT DAWSON APRN Ot 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 02/26/2018 INDERJIT DAWSON [employer] Ot I87.323 CHRONIC VENOUS HTN W INFLAMMATION OF [place] 02/26/2018 INDERJIT DAWSON [employer] Ot L97.422 NON-PRS CHR ULCER OF LEFT HEEL AND MIDFO 02/26/2018 INDERJIT DAWSON [employer] Ot L97.522 NON-PRS CHRONIC ULCER OTH PRT LEFT FOOT 02/26/2018 LILLIAN PARSONS MD Ot E11.621 TYPE 2 DIABETES MELLITUS WITH FOOT ULCER 02/26/2018 LILLIAN PARSONS MD Ot E11.65 TYPE 2 DIABETES MELLITUS WITH HYPERGLYCE 02/26/2018 LILLIAN PARSONS MD Ot 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 02/26/2018 LILLIAN PARSONS MD Ot 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 02/26/2018 [...] 02/26/2018 LILLIAN PARSONS MD Ot 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 02/26/2018 LILLIAN PARSONS MD Ot 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 02/26/2018 [...] 02/26/2018 LILLIAN PARSONS MD Ot 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 02/26/2018 LILLIAN PARSONS MD Ot 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 02/26/2018 [...] 02/26/2018 LILLIAN PARSONS MD Ot 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 02/26/2018 LILLIAN PARSONS MD Ot 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 02/26/2018 [...] 02/26/2018 LILLIAN PARSONS MD Ot 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 02/26/2018 LILLIAN PARSONS MD Ot 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 02/26/2018 LILLIAN PARSONS MD Ot L97.422 NON-PRS CHR ULCER OF LEFT HEEL AND MIDFO 02/26/2018 LILLIAN PARSONS MD Ot L97.522 NON-PRS CHRONIC ULCER OTH PRT LEFT FOOT 02/26/2018 LILLIAN PARSONS MD Ot E11.621 TYPE 2 DIABETES MELLITUS WITH FOOT ULCER 02/26/2018 LILLIAN PARSONS MD Ot E11.65 TYPE 2 DIABETES MELLITUS WITH HYPERGLYCE 02/26/2018 LILLIAN PARSONS MD Ot 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 02/26/2018 LILLIAN PARSONS MD Ot 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 02/26/2018 [...] 02/26/2018 LILLIAN PARSONS MD Ot 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 02/26/2018 LILLIAN PARSONS MD Ot 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 02/26/2018 [...] 02/26/2018 LILLIAN PARSONS MD Ot 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 02/26/2018 LILLIAN PARSONS MD Ot I87.323 CHRONIC VENOUS HTN W INFLAMMATION OF [place] 02/26/2018 LILLIAN PARSONS MD Ot L97.522 NON-PRS CHRONIC ULCER OTH PRT LEFT FOOT 02/26/2018 LILLIAN PARSONS MD Ot E11.621 TYPE 2 DIABETES MELLITUS WITH FOOT ULCER 02/26/2018 LILLIAN PARSONS MD Ot 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 02/26/2018 LILLIAN PARSONS MD Ot I87.323 CHRONIC VENOUS HTN W INFLAMMATION OF [place] 02/26/2018 LILLIAN PARSONS MD, Ot L97.522 NON-PRS CHRONIC ULCER OTH PRT LEFT FOOT 02/26/2018 LILLIAN PARSONS MD Ot E11.621 TYPE 2 DIABETES MELLITUS WITH FOOT ULCER 02/26/2018 LILLIAN PARSONS MD Ot I70.245 ATHSCL [place]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 [facility] 02/26/2018 LILLIAN PARSONS MD Ot I87.323 CHRONIC VENOUS HTN W INFLAMMATION OF BERNICE 02/26/2018 LILLIAN PARSONS MD Ot L97.522 NON-PRS CHRONIC ULCER OTH PRT LEFT FOOT 02/26/2018 LILLIAN PARSONS MD, Ot E11.621 TYPE 2 DIABETES MELLITUS WITH FOOT ULCER 02/26/2018 LILLIAN PARSONS MD, Ot I70.245 ATHSCL [place]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 [facility] [place] 02/26/2018 LILLIAN PARSONS MD Ot I87.323 CHRONIC [...] W INFLAMMATION OF BERNICE 02/26/2018 LILLIAN PARSONS MD, Ot L97.522 NON-PRS CHRONIC ULCER OTH PRT LEFT FOOT 02/26/2018 RAYMUNDO HERNANDEZ APRN Ot E80.6 OTHER DISORDERS OF BILIRUBIN METABOLISM 02/26/2018 RAYMUNDO HERNANDEZ APRN Ot K82.8 OTHER SPECIFIED DISEASES OF GALLBLADDER 03/01/2018 CONCEPCION RICHARD, GARRETT Ot C61 MALIGNANT NEOPLASM OF PROSTATE 03/05/2018 RODOLFO RICO DO Ot Z01.818 ENCOUNTER FOR OTHER PREPROCEDURAL EXAMIN 03/06/2018 RODOLFO RICO DO Ot Z01.818 ENCOUNTER FOR OTHER PREPROCEDURAL EXAMIN 03/07/2018 RODOLFO RICO DO Ot E11.43 TYPE 2 DIABETES W DIABETIC AUTONOMIC (PO 03/07/2018 RODOLFO RICO DO Ot G47.33 OBSTRUCTIVE SLEEP APNEA (ADULT) (PEDIATR 03/07/2018 RODOLFO RICO DO Ot I10 ESSENTIAL (PRIMARY) HYPERTENSION 03/07/2018 RODOLFO RICO DO Ot I25.10 ATHSCL HEART DISEASE OF [place] CORONARY 03/07/2018 RODOLFO RICO DO Ot K80.44 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 03/07/2018 RODOLFO RICO DO Ot Z79.82 RESIDENTIAL (CURRENT) USE OF ASPIRIN 03/07/2018 RODOLFO RICO DO Ot Z79.899 OTHER HOST COORDINATOR (CURRENT) DRUG THERAPY 03/07/2018 RODOLFO RICO DO Ot Z95.5 PRESENCE OF CORONARY ANGIOPLASTY IMPLANT 03/12/2018 RODOLFO RICO DO Ot E11.43 TYPE 2 DIABETES W DIABETIC AUTONOMIC (PO 03/12/2018 RICO DO, RODOLOF D Ot G47.33 OBSTRUCTIVE SLEEP APNEA (ADULT) (PEDIATR 03/12/2018 RICO DO, RODOLFO D Ot I10 ESSENTIAL (PRIMARY) HYPERTENSION 03/12/2018 RICO DO RODOLFO D Ot I25.10 ATHSCL HEART DISEASE OF [place] CORONARY 03/12/2018 RICO DO RODOLFO D Ot K80.44 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 03/12/2018 RICO DO RODOLFO D Ot Z79.82 RESIDENTIAL (CURRENT) USE OF ASPIRIN 03/12/2018 RICO DO RODOLFO D Ot Z79.899 OTHER HOST COORDINATOR (CURRENT) DRUG THERAPY 03/12/2018 RICO DO RODOLFO D Ot Z95.5 PRESENCE OF CORONARY ANGIOPLASTY IMPLANT 03/13/2018 RAYMUNDO HERNANDEZ APRN Ot E80.6 OTHER DISORDERS OF BILIRUBIN METABOLISM 03/13/2018 RAYMUNDO HERNANDEZ APRN Ot K82.8 OTHER SPECIFIED DISEASES OF GALLBLADDER 03/14/2018 UNA RICO DOTT D Ot E11.43 TYPE 2 DIABETES W DIABETIC AUTONOMIC (PO 03/14/2018 RICO DO, RODOLFO D Ot G47.33 OBSTRUCTIVE SLEEP APNEA (ADULT) (PEDIATR 03/14/2018 RICO DO, RODOLFO D Ot I10 ESSENTIAL (PRIMARY) HYPERTENSION 03/14/2018 RICO DO RODOLFO D Ot I25.10 ATHSCL HEART DISEASE OF [place] CORONARY 03/14/2018 RICO DOUNATT D Ot K80.44 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 03/14/2018 TRISHA DORODOLFO D Ot Z79.82 RESIDENTIAL (CURRENT) USE OF ASPIRIN 03/14/2018 TRISHA CRUZ RODOLFO D Ot Z79.899 OTHER HOST COORDINATOR (CURRENT) DRUG THERAPY 03/14/2018 TRISHA CRUZ RODOLFO D Ot Z95.5 PRESENCE OF CORONARY [...] MD Ot I25.10 ATHSCL HEART DISEASE OF [place] CORONARY 03/28/2018 GARRETT JAVIER MD Ot I73.9 PERIPHERAL VASCULAR DISEASE, UNSPECIFIED 03/28/2018 GARRETT JAVIER MD Ot K80.20 CALCULUS OF GALLBLADDER W/O CHOLECYSTITI 03/28/2018 GARRETT JAVIER MD Ot N30.90 CYSTITIS, UNSPECIFIED WITHOUT HEMATURIA 03/28/2018 GARRETT JAVIER MD Ot Z92.3 PERSONAL HISTORY OF IRRADIATION 04/09/2018 RODOLFO RICO DO Ot E11.43 TYPE 2 DIABETES W DIABETIC AUTONOMIC (PO 04/09/2018 RODOLFO RICO DO Ot G47.33 OBSTRUCTIVE SLEEP APNEA (ADULT) (PEDIATR 04/09/2018 RODOLFO RICO DO Ot I10 ESSENTIAL (PRIMARY) HYPERTENSION 04/09/2018 RODOLFO RICO DO Ot I25.10 ATHSCL HEART DISEASE OF [place] CORONARY 04/09/2018 RODOLFO RICO DO Ot K80.44 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 04/09/2018 RODOLFO RICO DO Ot Z79.82 HOST COORDINATOR (CURRENT) USE OF ASPIRIN 04/09/2018 RODOLFO RICO DO Ot Z79.899 OTHER RESIDENTIAL (CURRENT) DRUG THERAPY 04/09/2018 RODOLFO RICO DO [...] MD Ot I25.10 ATHSCL HEART DISEASE OF [place] CORONARY 05/28/2018 GARRETT JAVIER MD Ot I73.9 [...] MD Ot I25.10 ATHSCL HEART DISEASE OF [place] CORONARY 05/29/2018 GARRETT JAVIER MD Ot I73.9 PERIPHERAL VASCULAR DISEASE, UNSPECIFIED 05/29/2018 GARRETT JAVIER MD Ot K80.20 CALCULUS OF GALLBLADDER W/O CHOLECYSTITI 05/29/2018 GARRETT JAVIER MD Ot N30.90 CYSTITIS, UNSPECIFIED WITHOUT HEMATURIA 05/29/2018 GARRETT JAVIER MD Ot Z92.3 PERSONAL HISTORY OF IRRADIATION 09/13/2018 GARRETT JAVIER MD Ot C61 MALIGNANT NEOPLASM OF PROSTATE 09/13/2018 GARRETT JAVIER MD Ot E03.9 HYPOTHYROIDISM, UNSPECIFIED 09/13/2018 GARRETT JAVIER MD Ot 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 09/13/2018 GARRETT JAVIER MD Ot I10 ESSENTIAL (PRIMARY) HYPERTENSION 09/13/2018 GARRETT JAVIER MD Ot I25.10 ATHSCL HEART DISEASE OF [place] CORONARY 09/13/2018 GARRETT JAVIER MD Ot I73.9 PERIPHERAL VASCULAR DISEASE, UNSPECIFIED 09/13/2018 GARRETT JAVIER MD Ot Z92.3 PERSONAL HISTORY OF IRRADIATION 10/22/2018 RAYMUNDO HERNANDEZ APRN Ot G47.33 OBSTRUCTIVE SLEEP APNEA (ADULT) (PEDIATR 10/25/2018 RAYMUNDO HERNANDEZ B[employer] WORKER Ot G47.10 HYPERSOMNIA, UNSPECIFIED 10/25/2018 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9 HYPOTHYROIDISM, UNSPECIFIED 11/06/2018 GARRETT JAVIER MD Ot 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 11/06/2018 GARRETT JAVIER MD Ot I10 ESSENTIAL (PRIMARY) HYPERTENSION 11/06/2018 GARRETT JAVIER MD Ot I25.10 ATHSCL HEART DISEASE OF [place] CORONARY 11/06/2018 GARRETT JAVIER MD Ot I73.9 PERIPHERAL VASCULAR DISEASE, UNSPECIFIED 11/06/2018 GARRETT JAVIER MD Ot Z92.3 PERSONAL HISTORY OF IRRADIATION 11/06/2018 GARRETT JAVIER MD Ot C61 MALIGNANT NEOPLASM OF PROSTATE 11/06/2018 GARRETT JAVIER MD Ot E03.9 HYPOTHYROIDISM, UNSPECIFIED 11/06/2018 GARRETT JAVIER MD Ot 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 11/06/2018 GARRETT JAVIER MD Ot I10 ESSENTIAL (PRIMARY) HYPERTENSION 11/06/2018 GARRETT JAVIER MD Ot I25.10 ATHSCL HEART DISEASE OF [place] CORONARY 11/06/2018 GARRETT JAVIER MD Ot I73.9 PERIPHERAL VASCULAR DISEASE, UNSPECIFIED 11/06/2018 GARRETT JAVIER MD Ot Z92.3 PERSONAL HISTORY OF IRRADIATION 11/12/2018 GARRETT AJVIER MD Ot C61 MALIGNANT NEOPLASM OF PROSTATE 11/12/2018 GARRETT JAIVER MD Ot D64.9 ANEMIA, UNSPECIFIED 11/12/2018 GARRETT JAVIER MD Ot E03.9 HYPOTHYROIDISM, UNSPECIFIED 11/12/2018 GARRETT JAVIER MD Ot 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 11/12/2018 GARRETT JAVIER MD Ot I10 ESSENTIAL (PRIMARY) HYPERTENSION 11/12/2018 GARRETT JAVIER MD Ot I25.10 ATHSCL HEART DISEASE OF [place] CORONARY 11/12/2018 GARRETT AJVIER MD Ot I73.9 PERIPHERAL VASCULAR DISEASE, UNSPECIFIED 11/12/2018 GARRETT JAVIER MD Ot Z79.82 RESIDENTIAL (CURRENT) USE OF ASPIRIN 11/12/2018 GARRETT JAVIER MD Ot Z79.899 OTHER RESIDENTIAL (CURRENT) DRUG THERAPY 11/12/2018 GARRETT JAVIER MD Ot Z92.3 PERSONAL HISTORY OF IRRADIATION 11/13/2018 GARRETT JAVIER MD Ot C61 MALIGNANT NEOPLASM OF PROSTATE 11/13/2018 GARRETT JAVIER MD Ot D64.9 ANEMIA, UNSPECIFIED 11/13/2018 GARRETT JAVIER MD Ot E03.9 HYPOTHYROIDISM, UNSPECIFIED 11/13/2018 GARRETT JAVIER MD Ot 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 11/13/2018 GARRETT JAVIER MD Ot I10 ESSENTIAL (PRIMARY) HYPERTENSION 11/13/2018 GARRETT JAVIER MD Ot I25.10 ATHSCL HEART DISEASE OF [place] CORONARY 11/13/2018 GARRETT JAVIER MD Ot I73.9 PERIPHERAL VASCULAR DISEASE, UNSPECIFIED 11/13/2018 GARRETT JAVIER MD Ot Z79.82 RESIDENTIAL (CURRENT) USE OF ASPIRIN 11/13/2018 GARRETT JAVIER MD Ot Z79.899 OTHER HOST COORDINATOR (CURRENT) DRUG THERAPY 11/13/2018 GARRETT JAVIER MD Ot Z92.3 PERSONAL HISTORY OF IRRADIATION 11/21/2018 GARRETT JAVIER MD Ot C61 MALIGNANT NEOPLASM OF PROSTATE 11/21/2018 GARRETT JAVIER MD Ot E03.9 HYPOTHYROIDISM, UNSPECIFIED 11/21/2018 GARRETT JAVIER MD Ot 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 11/21/2018 GARRETT JAVIER MD Ot I10 ESSENTIAL (PRIMARY) HYPERTENSION 11/21/2018 GARRETT JAVIER MD Ot I25.10 ATHSCL HEART DISEASE OF [place] CORONARY 11/21/2018 GARRETT JAVIER MD Ot I73.9 PERIPHERAL VASCULAR DISEASE, UNSPECIFIED 11/21/2018 GARRETT JAVIER MD Ot Z92.3 PERSONAL HISTORY OF IRRADIATION 11/21/2018 RODOLFO RICO DO Ot Z01.818 ENCOUNTER FOR OTHER PREPROCEDURAL EXAMIN 11/22/2018 RODOLFO RICO DO Ot Z01.818 ENCOUNTER FOR OTHER PREPROCEDURAL EXAMIN 11/26/2018 RODOLFO RICO DO Ot C61 MALIGNANT NEOPLASM OF PROSTATE 11/26/2018 RODOLFO RICO DO Ot D12.0 BENIGN NEOPLASM OF CECUM 11/26/2018 RODOLFO RICO DO Ot D12.3 BENIGN NEOPLASM OF TRANSVERSE COLON 11/26/2018 RODOLFO RICO DO Ot D50.9 IRON DEFICIENCY ANEMIA, UNSPECIFIED 11/26/2018 RODOLFO RICO DO Ot E11.42 TYPE 2 DIABETES MELLITUS WITH DIABETIC P 11/26/2018 RODOLFO RICO DO Ot 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 11/26/2018 RODOLFO RICO DO Ot F17.220 NICOTINE DEPENDENCE, CHEWING TOBACCO, UN 11/26/2018 RODOLFO RICO DO Ot G57.33 LESION OF LATERAL POPLITEAL NERVE, BILAT 11/26/2018 RODOLFO RICO DO Ot I10 ESSENTIAL (PRIMARY) HYPERTENSION 11/26/2018 RODOLFO RICO DO Ot I25.10 ATHSCL HEART DISEASE OF [place] CORONARY 11/26/2018 RODOLFO RICO DO Ot K31.7 POLYP OF STOMACH AND DUODENUM 11/26/2018 RODOLFO RICO DO Ot K44.9 DIAPHRAGMATIC HERNIA WITHOUT OBSTRUCTION 11/26/2018 RODOLFO RICO DO Ot K62.89 OTHER SPECIFIED DISEASES OF ANUS AND REC 11/26/2018 RODOLFO RICO DO Ot Z79.82 RESIDENTIAL (CURRENT) USE OF ASPIRIN 11/26/2018 RODOLFO RICO DO Ot Z79.84 RESIDENTIAL (CURRENT) USE OF ORAL HYPOGLYC 11/26/2018 RODOLFO RICO DO Ot Z79.899 OTHER RESIDENTIAL (CURRENT) DRUG THERAPY 11/26/2018 RODOLFO RICO DO Ot Z95.5 PRESENCE OF CORONARY ANGIOPLASTY IMPLANT 11/28/2018 RODOLFO RICO DO Ot C61 MALIGNANT NEOPLASM OF PROSTATE 11/28/2018 RODOLFO RICO DO Ot D12.0 BENIGN NEOPLASM OF CECUM 11/28/2018 RODOLFO RICO DO Ot D12.3 BENIGN NEOPLASM OF TRANSVERSE COLON 11/28/2018 RODOLFO RICO DO Ot D50.9 IRON DEFICIENCY ANEMIA, UNSPECIFIED 11/28/2018 RODOLFO RICO DO Ot E11.42 TYPE 2 DIABETES MELLITUS WITH DIABETIC P 11/28/2018 RODOLFO RICO DO Ot 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 11/28/2018 RODOLFO RICO DO Ot F17.220 NICOTINE DEPENDENCE, CHEWING TOBACCO, UN 11/28/2018 RODOLFO RICO DO Ot G57.33 LESION OF LATERAL POPLITEAL NERVE, BILAT 11/28/2018 RODOLFO RICO DO Ot I10 ESSENTIAL (PRIMARY) HYPERTENSION 11/28/2018 RODOLFO RICO DO Ot I25.10 ATHSCL HEART DISEASE OF [place] CORONARY 11/28/2018 R[place] RODOLFO CRUZ Ot K31.7 POLYP OF STOMACH AND DUODENUM 11/28/2018 RODOLFO RICO DO Ot K44.9 DIAPHRAGMATIC HERNIA WITHOUT OBSTRUCTION 11/28/2018 RODOLFO RICO DO Ot K62.89 OTHER SPECIFIED DISEASES OF ANUS AND REC 11/28/2018 RODOLFO RICO DO Ot Z79.82 RESIDENTIAL (CURRENT) USE OF ASPIRIN 11/28/2018 R[place] RODOLFO CRUZ Ot Z79.84 RESIDENTIAL (CURRENT) USE OF ORAL HYPOGLYC 11/28/2018 RODOLFO RICO DO, Ot Z79.899 OTHER HOST COORDINATOR (CURRENT) DRUG THERAPY 11/28/2018 RODOLFO RICO DO Ot Z95.5 PRESENCE OF CORONARY ANGIOPLASTY IMPLANT 12/16/2018 SHERICE RICHARD, LILLIAN Drake Ot G47.33 OBSTRUCTIVE SLEEP APNEA (ADULT) (PEDIATR 12/16/2018 SHERICE RICHARD, LILLIAN Drake Ot G47.33 OBSTRUCTIVE SLEEP APNEA (ADULT) (PEDIATR 12/18/2018 LILLIAN SMILEY MD, Ot G47.33 OBSTRUCTIVE SLEEP APNEA (ADULT) (PEDIATR 12/19/2018 SHERICE RICHARD, LILLIAN Darke Ot G47.33 OBSTRUCTIVE SLEEP APNEA (ADULT) (PEDIATR 12/22/2018 GAVIN HENRIQUEZ MD Ot 280.9 IRON DEFIC ANEMIA NOS 12/22/2018 GAVIN HENRIQUEZ MD Ot 536.8 STOMACH FUNCTION DIS NEC 12/22/2018 GAVIN HENRIQUEZ MD Ot E934.0 ADV EFF IRON COMPOUNDS 12/22/2018 LILLIAN PARSONS MD Ot E11.621 TYPE 2 DIABETES MELLITUS WITH FOOT ULCER 12/22/2018 LILLIAN PARSONS MD, Ot E11.65 TYPE 2 DIABETES MELLITUS WITH HYPERGLYCE 12/22/2018 LILLIAN PARSONS MD, Ot 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 12/22/2018 LILLIAN PARSONS MD, Ot 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 12/22/2018 LILLIAN PARSONS MD, Ot I87.323 CHRONIC VENOUS HTN W INFLAMMATION OF [place] 12/22/2018 LILLIAN PARSONS MD, Ot L97.422 NON-PRS CHR ULCER OF LEFT HEEL AND MIDFO 12/22/2018 LILLIAN PARSONS MD, Ot L97.522 NON-PRS CHRONIC ULCER OTH PRT LEFT FOOT 12/22/2018 LILLIAN PARSONS MD Ot E11.621 TYPE 2 DIABETES MELLITUS WITH FOOT ULCER 12/22/2018 LILLIAN PARSONS MD, Ot E11.65 TYPE 2 DIABETES MELLITUS WITH HYPERGLYCE 12/22/2018 LILLIAN PARSONS MD Ot 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 12/22/2018 LILLIAN PARSONS MD Ot 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 12/22/2018 LILLIAN PARSONS MD Ot I87.323 CHRONIC VENOUS HTN W INFLAMMATION OF [place] 12/22/2018 LILLIAN PARSONS MD Ot L97.422 NON-PRS CHR ULCER OF LEFT HEEL AND MIDFO 12/22/2018 LILLIAN PARSONS MD, Ot L97.522 NON-PRS CHRONIC ULCER OTH PRT LEFT FOOT 12/22/2018 LILLIAN PARSONS MD, Ot E11.621 TYPE 2 DIABETES MELLITUS WITH FOOT ULCER 12/22/2018 LILLIAN PARSONS MD Ot 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 12/22/2018 LILLIAN PARSONS MD Ot 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 12/22/2018 LILLIAN PARSONS MD Ot I87.323 CHRONIC VENOUS HTN W INFLAMMATION OF [place] 12/22/2018 LILLIAN PARSONS MD Ot L97.422 NON-PRS CHR ULCER OF LEFT HEEL AND MIDFO 12/22/2018 LILLIAN PARSONS MD Ot L97.522 NON-PRS CHRONIC ULCER OTH PRT LEFT FOOT 12/22/2018 LILLIAN PARSONS MD Ot R60.0 LOCALIZED EDEMA 12/22/2018 INDERJIT DAWSON [employer] WORKER Ot E11.621 TYPE 2 DIABETES MELLITUS WITH FOOT ULCER 12/22/2018 INDERJIT DAWSON APRN Ot E11.65 TYPE 2 DIABETES MELLITUS WITH HYPERGLYCE 12/22/2018 INDERJIT DAWSON APRN Ot 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 12/22/2018 INDERJIT DAWSON APRN Ot 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 12/22/2018 INDERJIT DAWSON APRN Ot I87.323 CHRONIC VENOUS HTN W INFLAMMATION OF [place] 12/22/2018 INDERJIT DAWSON APRN Ot L97.422 NON-PRS CHR ULCER OF LEFT HEEL AND MIDFO 12/22/2018 INDERJIT DAWSON APRN Ot L97.522 NON-PRS CHRONIC ULCER OTH PRT LEFT FOOT 12/22/2018 LILLIAN PARSONS MD Ot E11.621 TYPE 2 DIABETES MELLITUS WITH FOOT ULCER 12/22/2018 LILLIAN PARSONS MD, Ot E11.65 TYPE 2 DIABETES MELLITUS WITH HYPERGLYCE 12/22/2018 LILLIAN PARSONS MD Ot 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 12/22/2018 LILLIAN PARSONS MD Ot 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 12/22/2018 LILLIAN PARSONS MD Ot I87.323 CHRONIC VENOUS HTN W INFLAMMATION OF [place] 12/22/2018 LILLIAN PARSONS MD Ot L97.422 NON-PRS CHR ULCER OF LEFT HEEL AND MIDFO 12/22/2018 LILLIAN PARSONS MD Ot L97.522 NON-PRS CHRONIC ULCER OTH PRT LEFT FOOT 12/22/2018 LILLIAN PARSONS MD, Ot E11.621 TYPE 2 DIABETES MELLITUS WITH FOOT ULCER 12/22/2018 LILLIAN PARSONS MD, Ot E11.65 TYPE 2 DIABETES MELLITUS WITH HYPERGLYCE 12/22/2018 LILLIAN PARSONS MD Ot 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 12/22/2018 LILLIAN PARSONS MD Ot 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 12/22/2018 LILLIAN PARSONS MD Ot I87.323 CHRONIC VENOUS HTN W INFLAMMATION OF [place] 12/22/2018 LILLIAN PARSONS MD Ot L97.422 NON-PRS CHR ULCER OF LEFT HEEL AND MIDFO 12/22/2018 LILLIAN PARSONS MD Ot L97.522 NON-PRS CHRONIC ULCER OTH PRT LEFT FOOT 12/22/2018 LILLIAN PARSONS MD Ot E11.621 TYPE 2 DIABETES MELLITUS WITH FOOT ULCER 12/22/2018 LILLIAN PARSONS MD, Ot E11.65 TYPE 2 DIABETES MELLITUS WITH HYPERGLYCE 12/22/2018 LILLIAN PARSONS MD Ot 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 12/22/2018 LILLIAN PARSONS MD Ot 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 12/22/2018 LILLIAN PARSONS MD Ot I87.323 CHRONIC VENOUS HTN W INFLAMMATION OF [place] 12/22/2018 LILLIAN PARSONS MD Ot L97.422 NON-PRS CHR ULCER OF LEFT HEEL AND MIDFO 12/22/2018 LILLIAN PARSONS MD Ot L97.522 NON-PRS CHRONIC ULCER OTH PRT LEFT FOOT 12/22/2018 LILLIAN PARSONS MD, Ot E11.621 TYPE 2 DIABETES MELLITUS WITH FOOT ULCER 12/22/2018 LILLIAN PARSONS MD Ot E11.65 TYPE 2 DIABETES MELLITUS WITH HYPERGLYCE 12/22/2018 LILLIAN PARSONS MD Ot 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 12/22/2018 LILLIAN PARSONS MD Ot 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 12/22/2018 LILLIAN PARSONS MD, Ot I87.323 CHRONIC VENOUS HTN W INFLAMMATION OF [place] 12/22/2018 LILLIAN PARSONS MD Ot L97.422 NON-PRS CHR ULCER OF LEFT HEEL AND MIDFO 12/22/2018 LILLIAN PARSONS MD Ot L97.522 NON-PRS CHRONIC ULCER OTH PRT LEFT FOOT 12/22/2018 LILLIAN PARSONS MD, Ot E11.621 TYPE 2 DIABETES MELLITUS WITH FOOT ULCER 12/22/2018 LILLIAN PARSONS MD, Ot E11.65 TYPE 2 DIABETES MELLITUS WITH HYPERGLYCE 12/22/2018 LILLIAN PARSONS MD Ot 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 12/22/2018 LILLIAN PARSONS MD Ot 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 12/22/2018 LILLIAN PARSONS MD Ot L97.422 NON-PRS CHR ULCER OF LEFT HEEL AND MIDFO 12/22/2018 LILLIAN PARSONS MD Ot L97.522 NON-PRS CHRONIC ULCER OTH PRT LEFT FOOT 12/22/2018 LILLIAN PARSONS MD Ot E11.621 TYPE 2 DIABETES MELLITUS WITH FOOT ULCER 12/22/2018 LILLIAN PARSONS MD Ot E11.65 TYPE 2 DIABETES MELLITUS WITH HYPERGLYCE 12/22/2018 LILLIAN PARSONS MD Ot 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 12/22/2018 LILLIAN PARSONS MD Ot 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 12/22/2018 LILLIAN PARSONS MD, Ot I87.323 CHRONIC VENOUS HTN W INFLAMMATION OF [place] 12/22/2018 LILLIAN PARSONS MD Ot L97.422 NON-PRS CHR ULCER OF LEFT HEEL AND MIDFO 12/22/2018 LILLIAN PARSONS MD, Ot L97.522 NON-PRS CHRONIC ULCER OTH PRT LEFT FOOT 12/22/2018 LILLIAN PARSONS MD, Ot E11.621 TYPE 2 DIABETES MELLITUS WITH FOOT ULCER 12/22/2018 LILLIAN PARSONS MD, Ot E11.65 TYPE 2 DIABETES MELLITUS WITH HYPERGLYCE 12/22/2018 LILLIAN PARSONS MD, Ot 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 12/22/2018 LILLIAN PARSONS MD, Ot 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 12/22/2018 LILLIAN PARSONS MD, Ot I87.323 CHRONIC VENOUS HTN W INFLAMMATION OF [place] 12/22/2018 LILLIAN PARSONS MD, Ot L97.422 NON-PRS CHR ULCER OF LEFT HEEL AND MIDFO 12/22/2018 LILLIAN PARSONS MD, Ot L97.522 NON-PRS CHRONIC ULCER OTH PRT LEFT FOOT 12/22/2018 LILLIAN PARSONS MD, Ot E11.621 TYPE 2 DIABETES MELLITUS WITH FOOT ULCER 12/22/2018 LILLIAN PARSONS MD, Ot 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 12/22/2018 LILLIAN PARSONS MD Ot I87.323 CHRONIC VENOUS HTN W INFLAMMATION OF [place] 12/22/2018 LILLIAN PARSONS MD Ot L97.522 NON-PRS CHRONIC ULCER OTH PRT LEFT FOOT 12/22/2018 LILLIAN PARSONS MD Ot E11.621 TYPE 2 DIABETES MELLITUS WITH FOOT ULCER 12/22/2018 LILLIAN PARSONS MD Ot 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 12/22/2018 LILLIAN PARSONS MD Ot I87.323 CHRONIC VENOUS HTN W INFLAMMATION OF [place] 12/22/2018 LILLIAN PARSONS MD, Ot L97.522 NON-PRS CHRONIC ULCER OTH PRT LEFT FOOT 12/22/2018 LILLIAN PARSONS MD Ot E11.621 TYPE 2 DIABETES MELLITUS WITH FOOT ULCER 12/22/2018 LILLIAN PARSONS MD Ot 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 12/22/2018 LILLIAN PARSONS MD Ot I87.323 CHRONIC VENOUS HTN W INFLAMMATION OF [place] 12/22/2018 LILLIAN PARSONS MD Ot L97.522 NON-PRS CHRONIC ULCER OTH PRT LEFT FOOT 12/22/2018 LILLIAN PARSONS MD Ot E11.621 TYPE 2 DIABETES MELLITUS WITH FOOT ULCER 12/22/2018 LILLIAN PARSONS MD Ot 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 12/22/2018 LILLIAN PARSONS MD Ot I87.323 CHRONIC VENOUS HTN W INFLAMMATION OF [place] 12/22/2018 LILLIAN PARSONS MD Ot L97.522 NON-PRS CHRONIC ULCER OTH PRT LEFT FOOT 12/22/2018 LILLIAN PARSONS MD Ot E11.621 TYPE 2 DIABETES MELLITUS WITH FOOT ULCER 12/22/2018 LILLIAN PARSONS MD Ot I87.323 CHRONIC VENOUS HTN W INFLAMMATION OF [place] 12/22/2018 LILLIAN PARSONS MD Ot L97.522 NON-PRS CHRONIC ULCER OTH PRT LEFT FOOT 12/22/2018 LILLIAN PARSONS MD Ot E11.621 TYPE 2 DIABETES MELLITUS WITH FOOT ULCER 12/22/2018 LILLIAN PARSONS MD Ot I87.323 CHRONIC VENOUS HTN W INFLAMMATION OF [place] 12/22/2018 LILLIAN PARSONS MD Ot L97.522 NON-PRS CHRONIC ULCER OTH PRT LEFT FOOT 12/22/2018 LILLIAN PARSONS MD Ot E11.621 TYPE 2 DIABETES MELLITUS WITH FOOT ULCER 12/22/2018 LILLIAN PARSONS MD Ot I87.323 CHRONIC VENOUS HTN W INFLAMMATION OF [place] 12/22/2018 LILLIAN PARSONS MD Ot L97.522 NON-PRS CHRONIC ULCER OTH PRT LEFT FOOT 12/22/2018 LILLIAN PARSONS MD Ot E11.621 TYPE 2 DIABETES MELLITUS WITH FOOT ULCER 12/22/2018 LILLIAN PARSONS MD Ot I87.323 CHRONIC VENOUS HTN W INFLAMMATION OF [place] 12/22/2018 LILLIAN PARSONS MD Ot L97.522 NON-PRS CHRONIC ULCER OTH PRT LEFT FOOT 12/22/2018 LILLIAN PARSONS MD Ot E11.621 TYPE 2 DIABETES MELLITUS WITH FOOT ULCER 12/22/2018 LILLIAN PARSONS MD Ot I87.323 CHRONIC VENOUS HTN W INFLAMMATION OF [place] 12/22/2018 LILLIAN PARSONS MD, Ot L97.522 NON-PRS CHRONIC ULCER OTH PRT LEFT FOOT 12/22/2018 LILLIAN PARSONS MD Ot E11.621 TYPE 2 DIABETES MELLITUS WITH FOOT ULCER 12/22/2018 LILLIAN PARSONS MD Ot I87.323 CHRONIC VENOUS HTN W INFLAMMATION OF [place] 12/22/2018 LILLIAN PARSONS MD, Ot L97.522 NON-PRS CHRONIC ULCER OTH PRT LEFT FOOT 12/22/2018 RAYMUNDO HERNANDEZ B[employer] WORKER Ot E80.6 OTHER DISORDERS OF BILIRUBIN METABOLISM 12/22/2018 RAYMUNDO HERNANDEZ B[employer] WORKER Ot K82.8 OTHER SPECIFIED DISEASES OF GALLBLADDER 12/22/2018 GARRETT JAVIER MD Ot C61 MALIGNANT NEOPLASM OF PROSTATE 12/22/2018 LILLIAN SMILEY MD Ot G47.33 OBSTRUCTIVE SLEEP APNEA (ADULT) (PEDIATR 12/22/2018 GARRETT JAVIER MD Ot C61 MALIGNANT NEOPLASM OF PROSTATE 12/22/2018 GARRETT JAVIER MD Ot C79.51 SECONDARY MALIGNANT NEOPLASM OF BONE 12/22/2018 GARRETT JAVIER MD Ot D64.9 ANEMIA, UNSPECIFIED 12/22/2018 GARRETT JAVIER MD Ot E03.9 HYPOTHYROIDISM, UNSPECIFIED 12/22/2018 GARRETT JAVIER MD Ot 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 12/22/2018 GARRETT JAVIER MD Ot I10 ESSENTIAL (PRIMARY) HYPERTENSION 12/22/2018 GARRETT JAVIER MD Ot I25.10 ATHSCL HEART DISEASE OF [place] CORONARY 12/22/2018 GARRETT JAVIER MD Ot I73.9 PERIPHERAL VASCULAR DISEASE, UNSPECIFIED 12/22/2018 GARRETT JAVIER MD Ot Z79.82 RESIDENTIAL (CURRENT) USE OF ASPIRIN 12/22/2018 GARRETT JAVIER MD Ot Z79.899 OTHER RESIDENTIAL (CURRENT) DRUG THERAPY 12/22/2018 GARRETT JAVIER MD Ot Z92.3 PERSONAL HISTORY OF IRRADIATION 01/08/2019 GARRETT JAVIER MD Ot C61 MALIGNANT NEOPLASM OF PROSTATE 01/08/2019 GARRETT JAVIER MD Ot C79.51 SECONDARY MALIGNANT NEOPLASM OF BONE 01/08/2019 GARRETT JAVIER MD Ot D64.9 ANEMIA, UNSPECIFIED 01/08/2019 GARRETT JAVIER MD Ot E03.9 HYPOTHYROIDISM, UNSPECIFIED 01/08/2019 GARRETT JAVIER MD Ot 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 01/08/2019 GARRETT JAVIER MD Ot I10 ESSENTIAL (PRIMARY) HYPERTENSION 01/08/2019 GARRETT JAVIER MD Ot I25.10 ATHSCL HEART DISEASE OF [place] CORONARY 01/08/2019 GARRETT JAVIER MD Ot I73.9 PERIPHERAL VASCULAR DISEASE, UNSPECIFIED 01/08/2019 GARRETT JAVIER MD Ot Z79.82 HOST COORDINATOR (CURRENT) USE OF ASPIRIN 01/08/2019 GARRETT JAVIER MD Ot Z79.899 OTHER RESIDENTIAL (CURRENT) DRUG THERAPY 01/08/2019 GARRETT JAVIER MD Ot Z92.3 PERSONAL HISTORY OF IRRADIATION 02/18/2019 GARRETT JAVIER MD Ot C61 MALIGNANT NEOPLASM OF PROSTATE 02/18/2019 GARRETT JAVIER MD Ot C79.51 SECONDARY MALIGNANT NEOPLASM OF BONE 02/18/2019 GARRETT JAVIER MD Ot D64.9 ANEMIA, UNSPECIFIED 02/18/2019 GARRETT JAVIER MD Ot E03.9 HYPOTHYROIDISM, UNSPECIFIED 02/18/2019 GARRETT JAVIER MD Ot 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 02/18/2019 GARRETT JAVIER MD Ot I10 ESSENTIAL (PRIMARY) HYPERTENSION 02/18/2019 GARRETT JAVIER MD Ot I25.10 ATHSCL HEART DISEASE OF [place] CORONARY 02/18/2019 GARRETT JAVIER MD Ot I73.9 PERIPHERAL VASCULAR DISEASE, UNSPECIFIED 02/18/2019 GARRETT JAVIER MD Ot Z79.82 RESIDENTIAL (CURRENT) USE OF ASPIRIN 02/18/2019 GARRETT JAVIER MD Ot Z79.899 OTHER HOST COORDINATOR (CURRENT) DRUG THERAPY 02/18/2019 GARRETT JAVIER MD Ot Z92.3 PERSONAL HISTORY OF IRRADIATION 02/21/2019 GARRETT JAVIER MD Ot C61 MALIGNANT NEOPLASM OF PROSTATE 02/21/2019 GARRETT JAVIER MD Ot C79.51 SECONDARY MALIGNANT NEOPLASM OF BONE 02/21/2019 GARRETT JAVIER MD Ot D64.9 ANEMIA, UNSPECIFIED 02/21/2019 GARRETT JAVIER MD Ot E03.9 HYPOTHYROIDISM, UNSPECIFIED 02/21/2019 GARRETT JAVIER MD Ot 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 02/21/2019 GARRETT JAVIER MD Ot I10 ESSENTIAL (PRIMARY) HYPERTENSION 02/21/2019 GARRETT JAVIER MD Ot I25.10 ATHSCL HEART DISEASE OF [place] CORONARY 02/21/2019 GARRETT JAVIER MD Ot I73.9 PERIPHERAL VASCULAR DISEASE, UNSPECIFIED 02/21/2019 GARRETT JAVIER MD Ot Z79.82 RESIDENTIAL (CURRENT) USE OF ASPIRIN 02/21/2019 GARRETT JAVIER MD Ot Z79.899 OTHER RESIDENTIAL (CURRENT) DRUG THERAPY 02/21/2019 GARRETT JAVIER MD Ot Z92.3 PERSONAL HISTORY OF IRRADIATION 03/18/2019 SUMMER CHERY MD Ot I10 ESSENTIAL (PRIMARY) HYPERTENSION 03/18/2019 SUMMER CHERY MD, Ot I25.10 ATHSCL HEART DISEASE OF [place] CORONARY 03/18/2019 SUMMER CHERY MD, Ot I36.1 NONRHEUMATIC TRICUSPID (VALVE) INSUFFICI 03/18/2019 SUMMER CHERY MD, Ot I73.9 PERIPHERAL VASCULAR DISEASE, UNSPECIFIED 03/18/2019 SUMMER CHERY MD, Ot Z72.0 TOBACCO USE 03/18/2019 MARINO DPM, ELY Q Ot Z01.818 ENCOUNTER FOR OTHER PREPROCEDURAL EXAMIN 03/19/2019 MARINO DPMorenita, ELY Q Ot Z01.818 ENCOUNTER FOR OTHER PREPROCEDURAL EXAMIN Procedures Code Description Performed By Performed On 45.13 OTHER ENDOSCOPY OF INTEST 07/31/2014 45.23 COLONOSCOPY 07/31/2014 Results Test Result Range Bacteria identification in isolate by anaerobe culture - 04/09/17 14:42 QUANTITY OF GROWTH Scant Growth NRG Bacteria identification in isolate by anaerobe culture [id number] NRG Gram stain microscopy - 04/09/17 14:42 GRAM STAIN RESULT FEW WBC'S, NO BACTERIA OBSERVED NRG Bacteria identification in wound by culture - 04/09/17 14:42 Bacteria identification in wound by culture C STR/SIM NRG FREE TEXT EXTERNAL ID BY [facility] 04/17/17 NRG QUANTITY OF GROWTH Scant Growth NRG MRSA AGAR MRSA isolated (Screening test for MRSA is positive) NRG CALL POSITIVES (F1 HELP) CALLED TO [facility] IN WOUND CARE 04/10 15:55 NRG Bacterial susceptibility panel - 04/09/17 14:42 Oxacillin susceptibility test by minimum inhibitory concentration >= NRG Gentamicin susceptibility test by minimum inhibitory concentration <= NRG Clindamycin susceptibility test by minimum inhibitory concentration <= NRG Erythromycin susceptibility test by minimum inhibitory concentration >= NRG Trimethoprim/sulfamethoxazole susceptibility test by minimum inhibitoryconcentration <= NRG Vancomycin susceptibility test by minimum inhibitory concentration <= NRG Levofloxacin susceptibility test by minimum inhibitory concentration >= NRG Rifampin susceptibility test by minimum inhibitory concentration <= NRG Tetracycline susceptibility test by minimum inhibitory concentration <= NRG Ciprofloxacin susceptibility test by minimum inhibitory concentration R NRG Capillary blood glucose measurement by glucometer (mass/volume) - 04/16/17 13:41 Capillary blood glucose measurement by glucometer (mass/volume) [...] Automated erythrocyte mean corpuscular hemoglobin concentration measurement (mass/volume) 30 g/dL 32-36 Automated erythrocyte distribution width ratio 17.9 % 10.0- 14.5 Automated blood platelet count (count/volume) 285 10*3/uL [...] Serum or plasma aspartate aminotransferase measurement (enzymatic activity/volume) 10 U/L 5-34 Serum or plasma alanine aminotransferase measurement (enzymatic activity/volume) 6 U/L 0-55 Serum or plasma protein measurement (mass/volume) 7.6 g/dL 6.4-8.2 Serum or plasma albumin measurement (mass/volume) 3.5 g/dL 3.2-4.5 Lipid 1996 panel - 04/24/17 08:08 Serum or plasma triglyceride measurement (mass/volume) 107 mg/dL <150 Serum or plasma cholesterol measurement (mass/volume) 170 mg/dL < 200 Serum or plasma cholesterol in HDL measurement (mass/volume) 27 mg/dL 40-60 Cholesterol in LDL [mass/volume] in serum or plasma by direct assay 132 mg/dL 1-129 Serum or plasma cholesterol in VLDL measurement (mass/volume) 21 mg/dL 5-40 Bacteria identification in isolate by anaerobe culture - 06/18/17 14:00 Bacteria identification in isolate by anaerobe culture [facility]ANA [facility] Gram stain microscopy - 06/18/17 14:00 GRAM STAIN RESULT NO BACTERIA [facility] Bacteria identification in wound by culture - 06/18/17 14:00 Bacteria identification in wound by culture [id number] [facility] FREE TEXT EXTERNAL SENSITIVITY REPORTED 06/26/17 10:20 NRG QUANTITY OF GROWTH Moderate Growth NR FREE TEXT ENTRY 2 TESTING BY [employer] [facility] FREE TEXT ENTRY 3 LAB FOR SENSITIVITY TESTING 06/20/17 . [facility] Bacterial susceptibility panel - 06/18/17 14:00 Gentamicin susceptibility test by minimum inhibitory concentration <= NRG Trimethoprim/sulfamethoxazole susceptibility test by minimum inhibitoryconcentration <= NRG Ampicillin susceptibility test by minimum inhibitory concentration <= NRG Tobramycin susceptibility test by minimum inhibitory concentration <= NRG Cefazolin susceptibility test by minimum inhibitory concentration <= NRG Ceftriaxone susceptibility test by minimum inhibitory concentration <= NRG Ampicillin/sulbactam susceptibility test by minimum inhibitory concentration <= NRG Piperacillin/tazobactam susceptibility test by minimum inhibitory concentration <= NRG Ciprofloxacin susceptibility test by minimum inhibitory concentration >= NRG Meropenem susceptibility test by minimum inhibitory concentration <= NRG Aztreonam susceptibility test by minimum inhibitory concentration <= NRG Extended spectrum beta lactamase (ESBL) producing bacteria susceptibility test by minimum inhibitory concentration - [facility] Bacterial susceptibility panel - 06/18/17 14:00 Oxacillin susceptibility test by minimum inhibitory concentration >= NRG Gentamicin susceptibility test by minimum inhibitory concentration <= NRG Clindamycin susceptibility test by minimum inhibitory [...] susceptibility test by minimum inhibitory concentration R NR Hemoglobin A1c - 06/18/17 14:15 Hemoglobin A1c 7.7 % 4.5-6.2 Bacteria identification in isolate by anaerobe culture - 07/30/17 13:36 Bacteria identification in isolate by anaerobe culture NOANA [facility] Gram stain microscopy - 07/30/17 13:36 GRAM STAIN RESULT FEW WBC'S, NO BACTERIA OBSERVED [facility] Bacteria identification in wound by culture - 07/30/17 13:36 Bacteria identification in wound by culture [id number] [facility] FREE TEXT EXTERNAL SENSITIVITY REPORTED BY [facility] REFERENCE NR QUANTITY OF GROWTH Scant Growth NR FREE TEXT ENTRY 2 LAB 08/08/17 [facility] Bacterial susceptibility panel - 07/30/17 13:36 Gentamicin susceptibility test by minimum inhibitory concentration <= NRG Trimethoprim/sulfamethoxazole susceptibility test by minimum inhibitoryconcentration <= NRG Ampicillin susceptibility test by minimum inhibitory concentration >= NRG Tobramycin susceptibility test by minimum inhibitory concentration <= NRG Cefazolin susceptibility test by minimum inhibitory concentration >= NRG Ceftriaxone susceptibility test by minimum inhibitory concentration <= NRG Ampicillin/sulbactam susceptibility test by minimum inhibitory concentration 8 NRG Piperacillin/tazobactam susceptibility test by minimum inhibitory concentration <= NRG Ciprofloxacin susceptibility test by minimum inhibitory concentration <= NRG Meropenem susceptibility test by minimum inhibitory concentration <= NRG Aztreonam susceptibility test by minimum inhibitory concentration <= NRG Bacterial susceptibility panel - 07/30/17 13:36 Oxacillin susceptibility test by minimum inhibitory concentration <= NRG Gentamicin susceptibility test by minimum inhibitory [...] resistant Staphylococcus aureus (MRSA) screening culture - 03/05/18 14:40 Methicillin resistant Staphylococcus aureus (MRSA) screening culture NEG NRG Capillary blood glucose measurement by glucometer (mass/volume) - 03/07/18 07:52 Capillary blood glucose measurement by glucometer (mass/volume) 140 mg/dL 70-110 Capillary blood glucose measurement by glucometer (mass/volume) - 11/26/18 10:56 Capillary blood glucose measurement by glucometer (mass/volume) 131 mg/dL 70-110 Encounters ACCT No. Visit Date/Time Discharge Status Pt. Type Provider Facility Loc./Unit Complaint [id number] 03/18/2019 12:34:00 03/18/2019 14:07:00 DIS Outpatient ELY PICHARDO DPM Q [facility] PREOP HALLUX VALGUS LEFT HALLUX [id number] 03/14/2019 06:38:00 03/14/2019 23:59:59 CLS Outpatient SUMMER CHERY MD [facility] CARD CAD [id number] 02/19/2019 00:13:00 02/19/2019 23:59:59 CLS Preadmit GARRETT JAVIER MD [facility] ONC [id number] 01/29/2019 09:33:00 02/18/2019 00:01:00 DIS Outpatient GARRETT JAVIER MD [facility] ONC [id number] 12/16/2018 20:41:00 12/16/2018 23:59:59 CLS Outpatient LILLIAN SMILEY MD [facility] SLEEP ANTWAN G47.33 [id number] 11/26/2018 10:29:00 11/26/2018 13:11:00 DIS Outpatient RODOLFO RICO DO [facility] ENDO SEVERE ANEMIA [id number] 11/21/2018 15:56:00 11/21/2018 16:42:00 DIS Outpatient RODOLFO RICO DO [facility] PREOP COLONOSCOPY/EGD [id number] 11/06/2018 09:48:00 11/12/2018 00:01:00 DIS Outpatient GARRETT JAVIER MD [facility] ONC [id number] 10/25/2018 09:49:00 10/25/2018 11:09:00 DIS Outpatient RAYMUNDO HERNANDEZ APRN [facility] SLEEP ANTWAN,HYPERSOMNIA [id number] 05/22/2018 09:41:00 05/22/2018 23:59:59 CLS Outpatient GARRETT JAVIER MD [facility] ONC [id number] 03/07/2018 07:30:00 03/07/2018 12:00:00 DIS Outpatient RODOLFO RICO DO [facility] SDC CHOLECYSTITIS [id number] 03/05/2018 14:23:00 03/05/2018 14:50:00 DIS Outpatient RODOLFO RICO DO [facility] PREOP LAP OFE [id number] 02/28/2018 12:06:00 02/28/2018 23:59:59 CLS Outpatient GARRETT JAVIER MD [facility] CARD PROSTATE CA [id number] 02/21/2018 12:55:00 02/21/2018 23:59:59 CLS Preadmit RAYMUNDO HERNANDEZ APRN [facility] RAD ABD PAIN,ELEVATED PSA,ENLARGED LIVER [id number] 02/21/2018 07:56:00 02/21/2018 23:59:59 CLS Outpatient RAYMUNDO HERNANDEZ APRN [facility] RAD ABD PAIN [id number] 09/03/2017 13:16:00 09/03/2017 23:59:59 CLS Outpatient LILLIAN PARSONS MD [facility] WOUNDCARE [id number] 08/27/2017 13:24:00 08/27/2017 23:59:59 CLS Outpatient LILLIAN PARSONS MD [facility] WOUNDCARE [id number] 08/20/2017 12:29:00 08/20/2017 23:59:59 CLS Outpatient LILLIAN PARSONS MD [facility] [id number] 08/13/2017 12:23:00 08/13/2017 23:59:59 CLS Outpatient LILLIAN PARSONS MD [facility] [id number] 08/08/2017 14:52:00 08/08/2017 23:59:59 CLS Outpatient LILLIAN PARSONS MD [facility] [id number] 08/06/2017 12:57:00 08/06/2017 23:59:59 CLS Outpatient LILLIAN PARSONS MD [facility] [id number] 07/30/2017 12:59:00 07/30/2017 23:59:59 CLS Outpatient LILLIAN PARSONS MD [facility] [id number] 07/23/2017 12:52:00 07/23/2017 23:59:59 CLS Outpatient LILLIAN PARSONS MD [facility] WOUNDCARE [id number] 07/17/2017 13:08:00 07/17/2017 23:59:59 CLS Outpatient LILLIAN PARSONS MD [facility] WOUNDCARE [id number] 07/09/2017 13:22:00 07/09/2017 23:59:59 CLS Outpatient LILLIAN PARSONS MD [facility] WOUNDCARE [id number] 07/02/2017 13:10:00 07/02/2017 23:59:59 CLS Outpatient LILLIAN PARSONS MD [facility] WOUNDCARE [id number] 06/26/2017 04:26:00 06/26/2017 04:26:00 CAN PreadEZRA Brody MD [facility] ER SOA [id number] 06/25/2017 13:08:00 06/25/2017 23:59:59 CLS Outpatient LILLIAN PARSONS MD [facility] WOUNDCARE [id number] 06/18/2017 14:23:00 06/18/2017 23:59:59 CLS Outpatient LILLIAN PARSONS MD [facility] LAB E11.621,L97.522,L97.422,I70.244,I70.245,I87.323 [id number] 06/18/2017 13:17:00 06/18/2017 23:59:59 CLS Outpatient LILLIAN PARSONS MD [facility] WOUNDCARE [id number] 06/04/2017 13:48:00 06/04/2017 23:59:59 CLS Outpatient LILLIAN PARSONS MD [facility] WOUNDCARE [id number] 05/28/2017 13:26:00 05/28/2017 23:59:59 CLS Outpatient LILLIAN PARSONS MD [facility] WOUNDCARE [id number] 05/14/2017 13:18:00 05/14/2017 23:59:59 CLS Outpatient LILLIAN PARSONS MD [facility] WOUNDCARE [id number] 05/07/2017 09:17:00 05/07/2017 23:59:59 CLS Outpatient INDERJIT DAWSON APRN [facility] WOUNDCARE [id number] 05/01/2017 10:02:00 05/01/2017 23:59:59 CLS Outpatient LILLIAN PARSONS MD [facility] RAD L97.522 [id number] 04/30/2017 13:21:00 04/30/2017 23:59:59 CLS Outpatient LILLIAN PARSONS MD [facility] WOUNDCARE [id number] 04/24/2017 07:40:00 04/24/2017 16:00:00 DIS Outpatient DOMINIC RICHARD FACC, JORGE A SIM CCDS [facility] CATH LEG DISCOMFORT,CLAUDICATION [id number] 04/23/2017 12:31:00 04/23/2017 23:59:59 CLS Outpatient LILLIAN PARSONS MD [facility] [id number] 04/16/2017 12:43:00 04/16/2017 16:00:00 DIS Outpatient LILLIAN PARSONS MD [facility] [id number] 05/03/2015 00:11:00 05/03/2015 23:59:59 CLS Preadmit GAVIN HENRIQUEZ MD [facility] IRON DEFI,ANEMIA,GI UPSET FROM ORAL IRON [id number] 02/17/2015 12:06:00 05/02/2015 00:01:00 DIS Outpatient GAVIN HENRIQUEZ MD [facility] IRON DEFI,ANEMIA,GI UPSET FROM ORAL IRON [id number] 08/04/2014 10:45:00 08/04/2014 12:16:00 DIS Outpatient KIMBERLY RENEE MD [facility] VENOUS STASIS ULCER R LEG [id number] 07/28/2014 16:33:00 08/01/2014 12:25:00 DIS Inpatient KIMBERLY RENEE MD [facility] 4TH GI BLEED, ACUTE RENAL FAILURE ANEMIA, LOW PLATELET [id number] 03/24/2019 09:30:00 PEN Preadmit MARINO DPM, ELY Q [facility] HALLUX VALGUS LEFT HALLUX [id number] 10/14/2012 00:00:00 Document Registration [id number] 07/15/2012 08:53:00 Document Registration [id number] 04/26/2012 09:24:00 Document Registration [id number] 11/17/2011 10:40:00 Document Registration [id number] 11/08/2011 08:52:00 Document Registration [id number] 10/26/2011 10:40:00 Document Registration
[2019-03-24] MEDS ORDERED: LACTATED RINGERS 1,000 ML IV SCH (10:11)
--- NOTE | 2019-03-24 10:11 | Progress Note-Post Operative ---
Post-Operative Progess Note Surgeon (s)/Towel Folder (s) Surgeon ELY PICHARDO DPM Towel Folder: none Pre-Operative Diagnosis Hallux Malleus, Ulceration, left foot Post-Operative Diagnosis same Procedure & Operative Findings Date of Procedure 03/24/19 Procedure Performed/Findings Arthroplasty, left hallux interphalangeal joint Anesthesia Type MAC Estimated Blood Loss Estimated blood loss (mL): Minimal Specimens/Packing Specimens Removed Head of proximal phalanx, left hallux ELY PICHARDO DPM Mar 24, 2019 10:11
[2019-03-24] MEDS ORDERED: HYDROcodone/APAP 5 MG/325 MG (LORTAB) TAB PO PRN (10:15)
[2019-03-24] MEDS ORDERED: SULF1TAB35 PO (10:25)
--- NOTE | 2019-03-24 10:34 | Anesthesia-General Post-Op ---
MAC Patient Condition Mental Status/LOC: Same as Preop Cardiovascular: Satisfactory Nausea/Vomiting: Absent Respiratory: Satisfactory Pain: Controlled Complications: Absent Post Op Complications Complications None Follow Up Care/Instructions Patient Instructions None needed. Anesthesiology Discharge Order Discharge Order Patient is doing well, no complaints, stable vital signs, no apparent adverse anesthesia problems. No complications reported per nursing. FAHAD KIM CRNA Mar 24, 2019 10:34
--- NOTE | 2019-03-24 10:59 | NUR ---
PHYSICAL THERAPY NOTIFIED PATIENT IS READY TO WORK WITH. JAVID NOTIFIED.
--- NOTE | 2019-03-24 11:22 | Diagnostic Imaging Report ---
INDICATION: Postop left foot. TIME OF EXAM: 10:39 AM FINDINGS: Postop changes with partial resection of the distal aspect of the proximal phalanx great toe is seen. There are degenerative changes at the first MTP joint. Metatarsals are intact. Midfoot is unremarkable. There is a large plantar calcaneal spur. IMPRESSION: Postop changes to the great toe. Dictated by: Dictated on workstation # [id number]
--- NOTE | 2019-03-24 11:28 | NUR ---
THIS RN PHONED DME VIA [facility] AND SPOKE WITH [facility] WHO SAID EARLIEST COULD HAVE BARIATRIC WALKER WOULD BE SUNDAY AND THEY WOULD DELIVER A WALKER WITHOUT WHEELS TO HOSPITAL AND THIS RN INFORMED STEVEN, STEFANO.
--- NOTE | 2019-03-24 11:58 | Physical Therapy Ortho Eval ---
PT Orthopedic Evaluation Type of Surgery hallux valgus left Prior Level of Function Current Living Status: Other Family Locomotion (Upon Admit): Independent Subjective Subjective Agrees to PT. Reports he does not have a walker, getting one from DME Entry Into Home: Ramp Steps Accessories: Ramped Entrance Motor Control Motor Control: Motor Control WNL ROM ROM: WFL Strength Strength: WFL Transfer Transfers (B, C, W/C) (FIM): 5 (mod indep post treatment) Gait Gait Assistive Device: FWW Right Lower Extremity: Right Weight Bearing Status RLE: Full Weight Bearing Left Lower Extremity: Left Weight Bearing Status LLE: Partial Weight Bearing Instructed pt in importance of PWB left LE. Gait (FIM): 5 (mod indep post treatment) Distance (FIM): 3=150 ft Summary/Comments Safe and steady gait; pt reports he is putting the bulk of the WB through his heel and reports he is not putting full weight on it. Treatment Rendered Treatment: Gait Train Assessment/Goals Goal Time Frame: 1 Visit Safe Ambulation: Yes Plan Treatment Plan: Discharge DC, pt is safe with walker mobility. PT/Family Agrees to Plan: Yes Time Time In: 1100 Time Out: 1125 Total Billed Treatment Time: 25 Billed Treatment Time visit EVL 25 STEVEN ESCOBAR PT Mar 24, 2019 11:58
--- NOTE | 2019-03-24 23:52 | OPERATIVE REPORT ---
DATE OF SERVICE: 03/24/2019 SURGEON: Irma Pichardo DPM. 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 PROCEDURE: Arthroplasty of left hallux at the interphalangeal joint. WOUND CLASS: Clean. ANESTHESIA: Monitored anesthesia care. HEMOSTASIS: Pneumatic thigh tourniquet at 300 mmHg. INDICATIONS: This is a 74-year-old male who presents with a chronic ulceration to the left hallux interphalangeal joint. Conservative therapy was met with unsatisfactory results and the patient is agreeable to surgical intervention after risks and complications were discussed at length. No guarantees were extended to the patient and he is willing to proceed. DESCRIPTION OF PROCEDURE: The patient was brought back to the operating table, placed in secure supine position. Appropriate Timeout was performed. Anesthesia was achieved utilizing 12 mL of 1:1 mixture of 1% Xylocaine, 0.5% Marcaine injected in a Bautista block left foot. The thigh tourniquet was placed on the left lower extremity over several layers of padding and the left foot was then prepped and draped in normal sterile manner. The left foot was then elevated and allowed to exsanguinate after which the tourniquet was inflated to 300 mmHg. Attention was then directed to the dorsal aspect of the left hallux interphalangeal joint where a transverse incision of approximately 2.5 cm was performed. The incision was deepened in the same plane with great care to identify and retract all vital neurovascular structures. The incision was deepened down to the extensor tendon where a Z slide lengthening was performed overlying the head of the proximal phalanx. The extensor tendon to the hallux was then reflected proximally and distally. This exposed the interphalangeal joint of the left hallux. The medial and lateral collateral ligaments were released as well as the dorsal capsule. Next, utilizing a power sagittal saw, the head of the proximal phalanx was resected at the distal diaphysis. The head of the proximal phalanx was then sent for gross and microscopic evaluation. The wound was flushed with copious amounts of normal saline. The full-thickness ulceration that was not contiguous with the wound created at the interphalangeal joint. The wound was flushed once again after which closure was performed in layers. A deep closure was performed with 3-0 Vicryl. The extensor hallucis longus tendon was repaired with subcutaneous tissue was reapproximated with 4-0 Vicryl and skin closure with 4-0 Prolene in a horizontal mattress type stitch. A small stab incision was made to the lateral aspect of the interphalangeal joint, which was repaired with a 4-0 Prolene stitch. The tourniquet was released and noted appropriate capillary refill time to all digits of the left foot. Postoperative dressing consisted of Betadine soaked Adaptic, sterile 4 x 4, sterile Kerlix all secured with a Coban wrap. The patient is to be partial weightbearing on the left lower extremity. A prescription for Bactrim was dispensed as well as postoperative instructions to stay off the foot as much as possible. We will see him back in the office in one week period of time or sooner if necessary. Job ID: [id number] DocumentID: [id number] Dictated Date: 03/24/2019 15:11:32 Word Processor Technician Date: 03/24/2019 23:51:46 Dictated By: IRMA PICHARDO DPM
== END 2019-03-24 11:45 | disposition home or self-care (01) ==
LOC: SDC 07:28
PROVIDERS: ATTEND Podiatrist Foot & Ankle Surgery
DX: E11.621 Type 2 diabetes mellitus with foot ulcer (principal); L97.529 Non-pressure chronic ulcer of other part of left foot with unspecified severity; M20.32 Hallux varus (acquired), left foot; Z11.2 Encounter for screening for other bacterial diseases; J44.9 Chronic obstructive pulmonary disease, unspecified; M10.372 Gout due to renal impairment, left ankle and foot; N18.3 Chronic kidney disease, stage 3 (moderate); G89.4 Chronic pain syndrome; E03.8 Other specified hypothyroidism; D51.0 Vitamin B12 deficiency anemia due to intrinsic factor deficiency; I12.9 Hypertensive chronic kidney disease with stage 1 through stage 4 chronic kidney disease, or unspecified chronic kidney disease; F17.220 Nicotine dependence, chewing tobacco, uncomplicated; I25.10 Atherosclerotic heart disease of native coronary artery without angina pectoris; Z79.899 Other long term (current) drug therapy; G47.33 Obstructive sleep apnea (adult) (pediatric); Z79.4 Long term (current) use of insulin; Z79.82 Long term (current) use of aspirin; Z79.02 Long term (current) use of antithrombotics/antiplatelets; Z85.46 Personal history of malignant neoplasm of prostate; Z95.5 Presence of coronary angioplasty implant and graft
CPT/HCPCS: 73620; 82962; 87081

== ENCOUNTER 2019-07-16 11:31 | Outpatient (RCR) | payer MEDICARE ==
[2019-04-21 11:26] LABS: BASOPHILS % (AUTO) 0 % (0-10); EOSINOPHILS # (AUTO) 0.3 10^3/uL (0.0-0.3); EOSINOPHILS % (AUTO) 3 % (0-10); HEMATOCRIT 40 % (40-54); HEMOGLOBIN 12.8 G/DL (13.3-17.7); LYMPHOCYTES # (AUTO) 1.1 X 10^3 (1.0-4.0); LYMPHOCYTES % (AUTO) 11 % (12-44); MEAN CORPUSCULAR HEMOGLOBIN 33 PG (25-34); MEAN CORPUSCULAR HGB CONC 32 G/DL (32-36); MEAN CORPUSCULAR VOLUME 103 FL (80-99); MEAN PLATELET VOLUME 10.7 FL (7.4-10.4); MONOCYTES # (AUTO) 0.6 X 10^3 (0.0-1.0); MONOCYTES % (AUTO) 6 % (0-12); NEUTROPHILS # (AUTO) 7.7 X 10^3 (1.8-7.8); NEUTROPHILS % (AUTO) 79 % (42-75); PLATELET COUNT 214 10^3/uL (130-400); RED CELL DISTRIBUTION WIDTH 17.8 % (10.0-14.5); WHITE BLOOD COUNT 9.7 10^3/uL (4.3-11.0)
[2019-04-21 12:05] LABS: ALBUMIN 3.7 GM/DL (3.2-4.5); BILIRUBIN,TOTAL 0.4 MG/DL (0.1-1.0); CALCIUM 9.2 MG/DL (8.5-10.1); CREATININE SERUM 1.37 MG/DL (0.60-1.30); POTASSIUM 4.5 MMOL/L (3.6-5.0); TOTAL PROTEIN 7.4 GM/DL (6.4-8.2)
[~2019-07-16 11:31] MED LIST changes: +LEUPROLIDE 22.5 MG SYRIN(ELIGARD) SQ SCH; +SULF1TAB35 PO
[2019-07-16 11:51] LABS: BASOPHILS % (AUTO) 0 % (0-10); EOSINOPHILS # (AUTO) 0.3 10^3/uL (0.0-0.3); EOSINOPHILS % (AUTO) 3 % (0-10); HEMATOCRIT 41 % (40-54); HEMOGLOBIN 12.5 G/DL (13.3-17.7); LYMPHOCYTES # (AUTO) 1.1 X 10^3 (1.0-4.0); LYMPHOCYTES % (AUTO) 12 % (12-44); MEAN CORPUSCULAR HEMOGLOBIN 31 PG (25-34); MEAN CORPUSCULAR HGB CONC 30 G/DL (32-36); MEAN CORPUSCULAR VOLUME 102 FL (80-99); MEAN PLATELET VOLUME 10.8 FL (7.4-10.4); MONOCYTES # (AUTO) 0.5 X 10^3 (0.0-1.0); MONOCYTES % (AUTO) 5 % (0-12); NEUTROPHILS # (AUTO) 6.9 X 10^3 (1.8-7.8); NEUTROPHILS % (AUTO) 79 % (42-75); PLATELET COUNT 186 10^3/uL (130-400); RED CELL DISTRIBUTION WIDTH 15.7 % (10.0-14.5); WHITE BLOOD COUNT 8.7 10^3/uL (4.3-11.0)
[2019-07-16 12:18] LABS: ALBUMIN 3.7 GM/DL (3.2-4.5); BILIRUBIN,TOTAL 0.5 MG/DL (0.1-1.0); CALCIUM 9.1 MG/DL (8.5-10.1); CREATININE SERUM 1.44 MG/DL (0.60-1.30); POTASSIUM 4.4 MMOL/L (3.6-5.0); TOTAL PROTEIN 6.9 GM/DL (6.4-8.2)
== END 2019-07-20 | disposition home or self-care (01) ==
LOC: ONC 11:31
PROVIDERS: ATTEND Internal Medicine Hematology & Oncology
DX: C61 Malignant neoplasm of prostate (principal); C79.51 Secondary malignant neoplasm of bone; D64.9 Anemia, unspecified; E11.51 Type 2 diabetes mellitus with diabetic peripheral angiopathy without gangrene; I10 Essential (primary) hypertension; E03.9 Hypothyroidism, unspecified; I25.10 Atherosclerotic heart disease of native coronary artery without angina pectoris; I73.9 Peripheral vascular disease, unspecified; Z92.3 Personal history of irradiation; Z79.82 Long term (current) use of aspirin; Z79.899 Other long term (current) drug therapy
CPT/HCPCS: 36415; 80053; 84153; 85025; 96402

== ENCOUNTER 2019-07-24 10:51 | Outpatient (RCR) | payer MEDICARE | END 2019-10-22 | disposition home or self-care (01) | LOC: ONC 10:51 | PROVIDERS: ATTEND Internal Medicine Hematology & Oncology | DX: C61 Malignant neoplasm of prostate (principal); C79.51 Secondary malignant neoplasm of bone; D64.9 Anemia, unspecified; E11.51 Type 2 diabetes mellitus with diabetic peripheral angiopathy without gangrene; I10 Essential (primary) hypertension; E03.9 Hypothyroidism, unspecified; I25.10 Atherosclerotic heart disease of native coronary artery without angina pectoris; I73.9 Peripheral vascular disease, unspecified; Z92.3 Personal history of irradiation; Z79.82 Long term (current) use of aspirin; Z79.899 Other long term (current) drug therapy | CPT/HCPCS: 96402 ==

== ENCOUNTER 2019-12-25 13:37 | Outpatient (RCR) | payer MEDICARE ==
[2019-10-28 14:10] LABS: BASOPHILS % (AUTO) 0 % (0-10); EOSINOPHILS # (AUTO) 0.5 10^3/uL (0.0-0.3); EOSINOPHILS % (AUTO) 5 % (0-10); HEMATOCRIT 40 % (40-54); HEMOGLOBIN 11.9 G/DL (13.3-17.7); LYMPHOCYTES # (AUTO) 1.2 X 10^3 (1.0-4.0); LYMPHOCYTES % (AUTO) 14 % (12-44); MEAN CORPUSCULAR HEMOGLOBIN 30 PG (25-34); MEAN CORPUSCULAR HGB CONC 30 G/DL (32-36); MEAN CORPUSCULAR VOLUME 102 FL (80-99); MEAN PLATELET VOLUME 11.4 FL (7.4-10.4); MONOCYTES # (AUTO) 0.5 X 10^3 (0.0-1.0); MONOCYTES % (AUTO) 6 % (0-12); NEUTROPHILS # (AUTO) 6.2 X 10^3 (1.8-7.8); NEUTROPHILS % (AUTO) 74 % (42-75); PLATELET COUNT 179 10^3/uL (130-400); WHITE BLOOD COUNT 8.4 10^3/uL (4.3-11.0)
[2019-10-28 14:30] LABS: ALBUMIN 3.9 GM/DL (3.2-4.5); BILIRUBIN,TOTAL 0.3 MG/DL (0.1-1.0); CALCIUM 9.3 MG/DL (8.5-10.1); CREATININE SERUM 1.7 MG/DL (0.60-1.30); POTASSIUM 4.7 MMOL/L (3.6-5.0); TOTAL PROTEIN 7.2 GM/DL (6.4-8.2)
[~2019-12-25 13:37] MED LIST changes: +ZOLEDRONIC ACID (CANCER CTR) 4 MG in NS (IVPB) CANCER CENTER 100 ML IV SCH
[2020-01-15] MEDS ORDERED: BISO-1 PO (09:02)
[2020-01-15] MEDS ORDERED: OXYC10TA7 PO (09:02)
[2020-01-15] MEDS ORDERED: LEVO25TA5 PO (09:10)
[2020-01-15] MEDS ORDERED: INSU300I3 SQ (09:40)
[2020-01-16] MEDS ORDERED: FENT1PAT59 TD (09:15)
[2020-01-16] MEDS ORDERED: OXYC10TA7 PO (09:15)
[2020-01-22] MEDS ORDERED: POTA-51 PO (15:29)
[2020-01-22] MEDS ORDERED: OXYC10TA7 PO (15:29)
[2020-01-22] MEDS ORDERED: FURO-124 PO (15:29)
== END 2020-01-26 | disposition home or self-care (01) ==
LOC: ONC 13:37
PROVIDERS: ATTEND Internal Medicine Hematology & Oncology
DX: C61 Malignant neoplasm of prostate (principal); C79.51 Secondary malignant neoplasm of bone; D64.9 Anemia, unspecified; E11.51 Type 2 diabetes mellitus with diabetic peripheral angiopathy without gangrene; I10 Essential (primary) hypertension; E03.9 Hypothyroidism, unspecified; I25.10 Atherosclerotic heart disease of native coronary artery without angina pectoris; I73.9 Peripheral vascular disease, unspecified; R59.0 Localized enlarged lymph nodes; Z79.82 Long term (current) use of aspirin; Z79.899 Other long term (current) drug therapy; Z90.49 Acquired absence of other specified parts of digestive tract; Z95.5 Presence of coronary angioplasty implant and graft; Z90.89 Acquired absence of other organs; Z98.890 Other specified postprocedural states; Z92.3 Personal history of irradiation
CPT/HCPCS: 80053; 84153; 85025; 96365; 96402

== ENCOUNTER 2020-01-14 17:40 | Inpatient (IN) | payer MEDICARE ==
[~2020-01-14] VITALS: Ht 178 cm; Wt 135.0 kg
[~2020-01-14 17:40] MED LIST changes: -LEUPROLIDE 22.5 MG SYRIN(ELIGARD) SQ SCH; -ZOLEDRONIC ACID (CANCER CTR) 4 MG in NS (IVPB) CANCER CENTER 100 ML IV SCH
[2020-01-14] MEDS ORDERED: NS IV 1000 ML 1,000 ML IV SCH (18:22)
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
[2020-01-14] MEDS ORDERED: fentaNYL INJECTION 100 MCG/2 ML AMP IVP ONE (18:30)
[2020-01-14] MEDS ORDERED: ACETAMINOPHEN 500 MG TAB (TYLENOL) PO ONE (18:30)
[2020-01-14 18:34] LABS: BASOPHILS % (AUTO) 0 % (0-10); EOSINOPHILS # (AUTO) 0.3 10^3/uL (0.0-0.3); EOSINOPHILS % (AUTO) 3 % (0-10); HEMATOCRIT 35 % (40-54); HEMOGLOBIN 10.3 G/DL (13.3-17.7); LYMPHOCYTES % (AUTO) 8 % (12-44); MEAN CORPUSCULAR HEMOGLOBIN 29 PG (25-34); MEAN CORPUSCULAR HGB CONC 30 G/DL (32-36); MEAN CORPUSCULAR VOLUME 99 FL (80-99); MEAN PLATELET VOLUME 10.6 FL (7.4-10.4); MONOCYTES # (AUTO) 0.6 X 10^3 (0.0-1.0); MONOCYTES % (AUTO) 5 % (0-12); NEUTROPHILS # (AUTO) 9.5 X 10^3 (1.8-7.8); NEUTROPHILS % (AUTO) 83 % (42-75); PLATELET COUNT 208 10^3/uL (130-400); WHITE BLOOD COUNT 11.4 10^3/uL (4.3-11.0)
[2020-01-14 19:12] LABS: ALBUMIN 3.5 GM/DL (3.2-4.5); BILIRUBIN,TOTAL 0.5 MG/DL (0.1-1.0); CALCIUM 8.7 MG/DL (8.5-10.1); CREATININE SERUM 1.92 MG/DL (0.60-1.30); POTASSIUM 4.4 MMOL/L (3.6-5.0); TOTAL PROTEIN 6.7 GM/DL (6.4-8.2)
[2020-01-14 19:23] LABS: BILIRUBIN,URINE NEGATIVE (NEGATIVE); CLARITY,URINE CLEAR; COLOR,URINE YELLOW; GLUCOSE, URINE (UA) 1+ (NEGATIVE); KETONES,URINE NEGATIVE (NEGATIVE); LEUKOCYTE ESTERASE ,URINE NEGATIVE (NEGATIVE); NITRITE,URINE NEGATIVE (NEGATIVE); PROTEIN,URINE NEGATIVE (NEGATIVE)
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
--- OUTSIDE RECORDS SUMMARY | 2020-01-14 19:42 | XMS REPORT | CCD ---
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 Name Role Phone PP Unavailable CCM Unavailable Summary Purpose Interface Exchange Insurance Providers Payer name Policy type / Coverage type Covered constitution party ID Effective Begin Date Effective End Date WPS Medicare Part B Medicare Part B [id number] Unknown Unknown Family history Father Diagnosis Age At Onset Stroke Unknown Mother Diagnosis Age At Onset Stroke Unknown Diabetes mellitus Type 2 Unknown Social History Social History Element Codes Description Effective Dates Tobacco history SNOMED CT: 998761528 Currently uses smokeless tobacco Chews 05/04/2016 Marital status Unknown W idowed 01/26/2015 Number of children Unknown 3 01/26/2015 Employment Unknown Retir ed 01/26/[address]: 219887496 Never drinks alcohol quit in July 2014 01/26/2015 Allergies, Adverse Reactions, Alerts Substance Reaction Codes Entered Date Inactivated Date Status * NO KNOWN FOOD YAN RGIES Unknown 01/26/2015 No Inactive Date Active * NO KNOWN DRUG YAN RGIES Unknown 01/26/2015 No Inactive Date Active Past Medical History Illness Codes Condition Status Onset Date Resolved Date Dysuria ICD-9: 788.1 ICD-10: R30.0 Active 03/21/2017 Unknown Type 2 diabetes altagracia itus with hyperglycemia ICD-9: 250.00 ICD-10: E11.65 Active 12/06/2016 Unknown Chronic kidney disea se, stage 3 (moderate) ICD-9: 585.3 ICD-10: N18.3 Active 01/25/2015 Unknown Chronic pain syndrome ICD-9: 338.4 ICD-10: G89.4 Active 01/25/2015 Unknown Essential (primary) hypertension ICD-9: 401.1 ICD-10: I10 Active 11/08/2017 Unknown Cellulitis of left l ower limb ICD-9: 682.6 ICD-10: L03.116 Active 03/22/2017 Unknown Cellulitis of right lower limb ICD-9: 682.6 ICD-10: L03.115 Active 10/10/2018 Unknown Localized edema ICD-9: 782.3 ICD-10: R60.0 Active 03/22/2017 Unknown Chronic obstructive pulmonary disease, unspecified ICD-9: 496 ICD-10: J44.9 Active 10/04/2018 Unknown Weakness ICD-9: 780.79 ICD-10: R53.1 Active 10/14/2018 Unknown Hypoxemia ICD-9: 799.02 ICD-10: R09.02 Active 10/04/2018 Unknown Malignant neoplasm o f prostate ICD-9: 185 ICD-10: C61 Active 02/25/2018 Unknown Type 2 diabetes altagracia itus with foot ulcer ICD-9: 250.80 ICD-10: E11.621 Active 05/03/2017 Unknown Generalized abdomina l pain ICD-9: 789.07 ICD-10: R10.84 Active 02/20/2018 Unknown Gross hematuria ICD-9: 599.71 ICD-10: R31.0 Active 02/20/2018 Unknown Unspecified jaundice ICD-9: 782.4 ICD-10: R17 Active 02/20/2018 Unknown Encounter for immuni zation ICD-9: V03.82 ICD-10: Z23 Active 02/05/2018 Unknown Encounter for screen ing for malignant neoplasm of prostate ICD-9: V76.44 ICD-10: Z12.5 Active 02/05/2018 Unknown Other specified hypo thyroidism ICD-9: 244.9 ICD-10: E03.8 Active 01/25/2015 Unknown Encounter for genera l adult medical examination with abnormal findings ICD-9: V70.0 ICD-10: Z00.01 Active 11/30/2016 Unknown Essential (primary) hypertension ICD-9: 401.9 ICD-10: I10 Active 01/25/2015 Unknown Chronic gout due to renal impairment, left ankle and foot, without tophus (tophi) ICD-9: 274.19 ICD-10: M1A.3720 Active 03/22/2017 Unknown Diabetes Unknown Active 03/08/2017 Unknow n Encounter for immuni zation ICD-9: V03.9 ICD-10: Z23 Active 11/30/2016 Unknown Vitamin B12 deficien cy anemia due to intrinsic factor deficiency ICD-9: 281.0 ICD-10: D51.0 Active 05/03/2016 Unknown Hypertension Unknown Active 01/26/2015 Unknow n Hypothryroidism Unknown Active 01/26/2015 Unknow n ANEMIA ICD-9: 285.9 Active 01/25/2015 Unknow n CHRONIC PAIN SYNDROME ICD-9: 338.4 Active 01/25/2015 Unknown Chronic renal insuff iciency, stage III (moderate) ICD-9: 585.3 Active 01/25/2015 Unknown ESSENTIAL HYPERTENSION ICD-9: 401.9 Active 01/25/2015 Unknown GOUT ICD-9: 274.9 Active 01/25/2015 Unknow n HYPOTHYROIDISM ICD-9: 244.9 Active 01/25/2015 Unknown Vitamin B12 deficiency ICD-9: 266.2 Active 01/25/2015 Unknown Problems Condition Codes Effectiv e Dates Condition Status Dysuria ICD-9: 788.1 ICD-10: R30.0 03/21/2017 Active Type 2 diabetes altagracia itus with hyperglycemia ICD-9: 250.00 ICD-10: E11.65 12/06/2016 Active Chronic kidney disea se, stage 3 (moderate) ICD-9: 585.3 ICD-10: N18.3 01/25/2015 Active Chronic pain syndrome ICD-9: 338.4 ICD-10: G89.4 01/25/2015 Active Essential (primary) hypertension ICD-9: 401.1 ICD-10: I10 11/08/2017 Active Cellulitis of left l ower limb ICD-9: 682.6 ICD-10: L03.116 03/22/2017 Active Cellulitis of right lower limb ICD-9: 682.6 ICD-10: L03.115 10/10/2018 Active Localized edema ICD-9: 782.3 ICD-10: R60.0 03/22/2017 Active Chronic obstructive pulmonary disease, unspecified ICD-9: 496 ICD-10: J44.9 10/04/2018 Active Weakness ICD-9: 780.79 ICD-10: R53.1 10/14/2018 Active Hypoxemia ICD-9: 799.02 ICD-10: R09.02 10/04/2018 Active Malignant neoplasm o f prostate ICD-9: 185 ICD-10: C61 02/25/2018 Active Type 2 diabetes altagracia itus with foot ulcer ICD-9: 250.80 ICD-10: E11.621 05/03/2017 Active Generalized abdomina l pain ICD-9: 789.07 ICD-10: R10.84 02/20/2018 Active Gross hematuria ICD-9: 599.71 ICD-10: R31.0 02/20/2018 Active Unspecified jaundice ICD-9: 782.4 ICD-10: R17 02/20/2018 Active Encounter for immuni zation ICD-9: V03.82 ICD-10: Z23 02/05/2018 Active Encounter for screen ing for malignant neoplasm of prostate ICD-9: V76.44 ICD-10: Z12.5 02/05/2018 Active Other specified hypo thyroidism ICD-9: 244.9 ICD-10: E03.8 01/25/2015 Active Encounter for genera l adult medical examination with abnormal findings ICD-9: V70.0 ICD-10: Z00.01 11/30/2016 Active Essential (primary) hypertension ICD-9: 401.9 ICD-10: I10 01/25/2015 Active Chronic gout due to renal impairment, left ankle and foot, without tophus (tophi) ICD-9: 274.19 ICD-10: M1A.3720 03/22/2017 Active Diabetes Unknown 03/08/2017 Active Encounter for immuni zation ICD-9: V03.9 ICD-10: Z23 11/30/2016 Active Vitamin B12 deficien cy anemia due to intrinsic factor deficiency ICD-9: 281.0 ICD-10: D51.0 05/03/2016 Active Hypertension Unknown 01/26/2015 Active Hypothryroidism Unknown 01/26/2015 Active ANEMIA ICD-9: 285.9 01/25/2015 Active CHRONIC PAIN SYNDROME ICD-9: 338.4 01/25/2015 Active Chronic renal insuff iciency, stage III (moderate) ICD-9: 585.3 01/25/2015 Active ESSENTIAL HYPERTENSION ICD-9: 401.9 01/25/2015 Active GOUT ICD-9: 274.9 01/25/2015 Active HYPOTHYROIDISM ICD-9: 244.9 01/25/2015 Active Vitamin B12 deficiency ICD-9: 266.2 01/25/2015 Active Medications Medication Codes Instruc tions Start Date Stop Date Sta tus Fill Instructions oxycodone 10 mg tablet RxNorm: 2021523 1 Tablet(s) PO Q4 PRN 05/28/2019 06/26/2019 Active gabapentin 100 mg ca psule RxNorm: 924401 TAKE ONE CAPSULE BY M OUTH TWICE A DAY 05/20/2019 10/16/2019 Ac tive oxycodone 10 mg tablet RxNorm: 9511161 1 Tablet(s) PO Q4 PRN 04/30/2019 05/27/2019 Inactive Lasix 20 mg tablet RxNorm: 084275 TAKE ONE TABLET BY MOUTH TWICE A DAY 04/08/2019 10/04/2019 Ac tive oxycodone 10 mg tablet RxNorm: 7904595 1 Tablet(s) PO Q4 PRN 03/25/2019 04/29/2019 Inactive gabapentin 100 mg ca psule RxNorm: 295977 TAKE ONE CAPSULE BY M OUTH IN THE EVENING AT 5PM 03/21/2019 08/17/2019 Active levothyroxine 200 mc g tablet RxNorm: 195593 TAKE ONE TABLET BY MO UTH DAILY ON AN EMPTY STOMACH 03/13/2019 12/07/2019 Active bisoprolol 5 mg-hydr ochlorothiazide 6.25 mg tablet RxNorm: 617130 TAKE ONE TABLET BY MOUTH DAILY 03/13/2019 12/07/2019 Active Keflex 500 mg capsule RxNorm: 805179 1 Capsule(s) PO TID 03/12/2019 03/21/2019 Inactive potassium chloride E R 10 mEq tablet,extended release RxNorm: 497488 TAKE ONE TABLET BY MOUTH DAILY 03/10/2019 09/05/2019 Active oxycodone 10 mg tablet RxNorm: 2444604 1 Tablet(s) PO Q4 PRN 02/25/2019 03/24/2019 Inactive oxycodone 20 mg tablet RxNorm: 9587442 1/2 Tablet(s) PO Q6 as needed 01/21/2019 02/24/2019 In active oxycodone 20 mg tablet RxNorm: 0909234 1/2 Tablet(s) PO Q6 as needed 12/18/2018 01/16/2019 In active oxycodone 20 mg tablet RxNorm: 8722167 1/2 Tablet(s) PO Q6 as needed 11/12/2018 12/11/2018 In active gabapentin 100 mg ca psule RxNorm: 972534 1 Capsule(s) BID 11/05/2018 03/20/2019 Inactive potassium chloride E R 10 mEq tablet,extended release RxNorm: 470254 TAKE ONE TABLET BY MOUTH DAILY 11/04/2018 11/19/2018 Inactive Probiotic 10 billion cell capsule RxNorm: 6330320 1 Capsule(s) PO BID 10/25/2018 10/24/2018 In active Keflex 500 mg capsule RxNorm: 925720 1 Capsule(s) PO QID 10/25/2018 10/31/2018 Inactive Probiotic 10 billion cell capsule RxNorm: 5666512 1 Capsule(s) PO BID 10/25/2018 10/31/2018 In active oxycodone 20 mg tablet RxNorm: 5077204 1/2 Tablet(s) PO Q6 as needed 10/14/2018 11/11/2018 In active Keflex 500 mg capsule RxNorm: 529046 1 Capsule(s) PO TID 10/10/2018 10/19/2018 Inactive potassium chloride E R 10 mEq tablet,extended release RxNorm: 456980 1 Tablet(s) PO daily 10/10/2018 11/03/2018 Inactive Lasix 20 mg tablet RxNorm: 996999 1 Tablet(s) PO BID 10/10/2018 04/07/2019 Inactive albuterol sulfate 2. 5 mg/3 mL (0.083 %) solution for nebulization RxNorm: 352767 1 Milliliter(s) INH TID DX J44.9 01/31/2019 Inactive gabapentin 100 mg ca psule RxNorm: 748607 TAKE ONE CAPSULE BY M OUTH IN THE EVENING AT 5PM 09/24/2018 11/04/2018 Inactive oxycodone 20 mg tablet RxNorm: 4568627 1/2 Tablet(s) PO Q6 as needed 09/12/2018 10/11/2018 In active oxycodone 20 mg tablet RxNorm: 6675413 1/2 Tablet(s) PO Q6 as needed 08/15/2018 09/11/2018 In active oxycodone 20 mg tablet RxNorm: 4347857 1/2 Tablet(s) PO Q6 as needed 07/16/2018 08/14/2018 In active oxycodone 20 mg tablet RxNorm: 5864656 1/2 Tablet(s) PO Q6 as needed 06/14/2018 07/13/2018 In active gabapentin 100 mg ca psule RxNorm: 815959 TAKE ONE CAPSULE BY M OUTH IN THE EVENING AT 5PM 05/30/2018 09/23/2018 Inactive oxycodone 20 mg tablet RxNorm: 2291622 1/2 Tablet(s) PO Q6 as needed 05/15/2018 06/13/2018 In active oxycodone 20 mg tablet RxNorm: 3409254 1/2 Tablet(s) PO Q6 as needed 04/12/2018 05/11/2018 In active oxycodone 20 mg tablet RxNorm: 8300783 1/2 Tablet(s) PO Q6 as needed 03/11/2018 04/09/2018 In active Cipro 500 mg tablet RxNorm: 065608 1 Tablet(s) PO BID 02/21/2018 02/20/2018 Inactive levothyroxine 200 mc g tablet RxNorm: 246333 1 Tablet(s) PO daily 02/21/2018 02/20/2018 Inactive Cipro 500 mg tablet RxNorm: 804092 1 Tablet(s) PO BID 02/21/2018 03/02/2018 Inactive levothyroxine 200 mc g tablet RxNorm: 431173 1 Tablet(s) PO daily 02/21/2018 02/15/2019 Inactive oxycodone 20 mg tablet RxNorm: 7879168 1/2 Tablet(s) PO Q6 as needed 02/12/2018 03/10/2018 In active oxycodone 20 mg tablet RxNorm: 0064300 1/2 Tablet(s) PO Q6 as needed 01/16/2018 02/11/2018 In active gabapentin 100 mg ca psule RxNorm: 048940 TAKE ONE CAPSULE BY M OUTH IN THE EVENING AT 5PM 01/15/2018 05/29/2018 Inactive bisoprolol 5 mg-hydr ochlorothiazide 6.25 mg tablet RxNorm: 036376 TAKE ONE TABLET BY MOUTH DAILY 01/01/2018 12/26/2018 Inactive oxycodone 20 mg tablet RxNorm: 1829040 1/2 Tablet(s) PO Q6 as needed 12/20/2017 01/14/2018 In active oxycodone 20 mg tablet RxNorm: 4802044 1/2 Tablet(s) PO Q6 as needed 11/20/2017 12/19/2017 In active Victoza 2-Dino 0.6 mg /0.1 mL (18 mg/3 mL) subcutaneous pen injector RxNorm: 928436 1.2 Milligram(s) SQ daily 11/08/2017 12/07/2017 Inactive oxycodone 20 mg tablet RxNorm: 3671304 1/2 Tablet(s) PO Q6 as needed 10/19/2017 11/17/2017 In active gabapentin 100 mg ca psule RxNorm: 183884 1 Capsule(s) PO QPM at 5 pm 09/20/2017 01/14/2018 Inactive Lasix 20 mg tablet RxNorm: 928273 1 Tablet(s) QAM at 5pm 09/20/2017 03/18/2018 Inactive oxycodone 20 mg tablet RxNorm: 8917102 1/2 Tablet(s) PO Q6 as needed 09/18/2017 10/17/2017 In active oxycodone 20 mg tablet RxNorm: 4717496 1/2 Tablet(s) PO Q6 as needed 08/14/2017 09/12/2017 In active ketoconazole 2 % top ical cream RxNorm: 052732 1 Gram(s) TOP BID to affected area until healed 08/03/2017 No Stop Date Active oxycodone 20 mg tablet RxNorm: 3441519 1/2 Tablet(s) PO Q6 as needed 07/17/2017 08/13/2017 In active pen needle, diabetic 31 gauge x 5/16" RxNorm: 1 Unit Dose Miscellaneous d aily 06/25/2017 03/21/2018 In active daily use with victoza Bactrim DS 800 mg-16 0 mg tablet RxNorm: 065470 1 Tablet(s) PO BID Dr Norwood 06/25/2017 07/04/2017 In active Victoza 2-Dino 0.6 mg /0.1 mL (18 mg/3 mL) subcutaneous pen injector RxNorm: 190983 0.6 Milligram(s) SQ daily 06/25/2017 07/24/2017 Inactive doxycycline hyclate 100 mg tablet RxNorm: 536478 1 Tablet(s) PO BID Dr Norwood 06/21/2017 06/30/2017 In active oxycodone 20 mg tablet RxNorm: 9745058 1/2 Tablet(s) PO Q6 as needed 06/14/2017 07/13/2017 In active clindamycin 150 mg c apsule RxNorm: 095720 1 Capsule(s) PO Q8 06/07/2017 06/16/2017 Inactive levothyroxine 175 mc g tablet RxNorm: 681517 TAKE ONE TABLET BY MO UT DAILY 06/04/2017 09/01/2017 In active levothyroxine 175 mc g tablet RxNorm: 428986 TAKE ONE TABLET BY MO [facility] DAILY 06/04/2017 11/30/2017 In active bisoprolol 5 mg-hydr ochlorothiazide 6.25 mg tablet RxNorm: 184118 TAKE ONE TABLET BY MOUTH DAILY 05/24/2017 11/19/2017 Inactive oxycodone 20 mg tablet RxNorm: 0303631 1/2 Tablet(s) PO Q6 as needed 05/14/2017 06/12/2017 In active potassium chloride E R 10 mEq capsule,extended release RxNorm: 171435 TAKE ONE CAPSULE BY MOUTH DAILY NEEDED FOR 5 DAYS THEN NEEDED WITH LASIX 04/17/2017 10/13/2017 Inactive Lasix 20 mg tablet RxNorm: 548886 TAKE ONE TABLET BY MOUTH DAILY NEEDED 04/17/2017 09/19/2017 In active oxycodone 20 mg tablet RxNorm: 8840961 1/2 Tablet(s) PO Q6 as needed 04/12/2017 05/11/2017 In active Colcrys 0.6 mg tablet RxNorm: 514493 2 tabs at onset then may repeat 1 tab in 1 hours if needed- Tablet(s) PO 04/09/2017 No Stop Date Active then take daily until gout resolved Bactrim DS 800 mg-16 0 mg tablet RxNorm: 507892 1 Tablet(s) PO BID 04/09/2017 04/08/2017 Inactive dc levaquin Bactrim DS 800 mg-16 0 mg tablet RxNorm: 370301 1 Tablet(s) PO BID 04/09/2017 04/15/2017 Inactive dc levaquin Levaquin 500 mg tablet RxNorm: 035016 1 Tablet(s) PO daily 04/03/2017 04/02/2017 Inactive Levaquin 500 mg tablet RxNorm: 228124 1 Tablet(s) PO daily 04/03/2017 06/06/2017 Inactive indomethacin 25 mg c apsule RxNorm: 440968 1 Capsule(s) PO TID PRN 03/22/2017 03/22/2017 Inactive Lasix 20 mg tablet RxNorm: 045710 1 Tablet(s) PO QDAY PRN 03/22/2017 04/16/2017 Inactive daily x 5 days then as needed Levaquin 500 mg tablet RxNorm: 559873 1 Tablet(s) PO daily 03/22/2017 03/31/2017 Inactive potassium chloride E R 10 mEq capsule,extended release RxNorm: 109343 1 Capsule(s) PO QDAY PRN 03/22/2017 04/16/2017 Inactive daily x 5 days then as need ed with lasix oxycodone 20 mg tablet RxNorm: 6771723 1/2 Tablet(s) PO Q6 as needed 03/08/2017 04/06/2017 In active bisoprolol 5 mg-hydr ochlorothiazide 6.25 mg tablet RxNorm: 857083 TAKE ONE TABLET BY MOUTH DAILY 02/14/2017 05/14/2017 Inactive oxycodone 20 mg tablet RxNorm: 4028604 1/2 Tablet(s) PO Q6 as needed 02/08/2017 03/07/2017 In active oxycodone 20 mg tablet RxNorm: 9341333 1/2 Tablet(s) PO Q6 as needed 01/08/2017 02/06/2017 In active levothyroxine 175 mc g tablet RxNorm: 336235 1 Tablet(s) PO daily 12/06/2016 06/03/2017 Inactive [SAVINGS FOR NON-COVERED DRUGS -- BIN:00 3585, PCN: ASPROD1, Group: XXXXX, ID# [id number], Questions: . THIS IS NOT INSURANCE.] oxycodone 20 mg tablet RxNorm: 9958561 1/2 Tablet(s) PO Q6 as needed 12/04/2016 01/02/2017 In active oxycodone 20 mg tablet RxNorm: 7272590 1/2 Tablet(s) PO Q6 as needed 11/09/2016 12/03/2016 In active bisoprolol 5 mg-hydr ochlorothiazide 6.25 mg tablet RxNorm: 226427 TAKE ONE TABLET BY MOUTH DAILY 11/08/2016 02/05/2017 Inactive oxycodone 20 mg tablet RxNorm: 1852817 1/2 Tablet(s) PO Q6 as needed 10/05/2016 11/03/2016 In active oxycodone 20 mg tablet RxNorm: 1851270 1/2 Tablet(s) PO Q6 as needed 09/06/2016 10/04/2016 In active oxycodone 20 mg tablet RxNorm: 0834319 1/2 Tablet(s) PO Q6 as needed 08/07/2016 09/05/2016 In active oxycodone 20 mg tablet RxNorm: 2356473 1/2 Tablet(s) PO Q6 as needed 07/04/2016 08/06/2016 In active oxycodone 20 mg tablet RxNorm: 6974832 1/2 Tablet(s) PO Q6 as needed 05/29/2016 07/03/2016 In active levothyroxine 150 mc g tablet RxNorm: 380796 1 Tablet(s) PO daily 04/10/2016 04/09/2016 Inactive [SAVINGS FOR NON-COVERED DRUGS -- BIN:00 3585, PCN: ASPROD1, Group: XXXXX, ID# [id number], Questions: . THIS IS NOT INSURANCE.] oxycodone 20 mg tablet RxNorm: 2785845 1/2 Tablet(s) PO Q6 as needed 04/10/2016 05/28/2016 In active levothyroxine 150 mc g tablet RxNorm: 369874 1 Tablet(s) PO daily 04/10/2016 10/06/2016 Inactive [SAVINGS FOR NON-COVERED DRUGS -- BIN:00 3585, PCN: ASPROD1, Group: XXXXX, ID# [id number], Questions: . THIS IS NOT INSURANCE.] bisoprolol 5 mg-hydr ochlorothiazide 6.25 mg tablet RxNorm: 256534 1 Tablet(s) PO daily 02/16/2016 12/31/2017 Inactive oxycodone 20 mg tablet RxNorm: 1638121 1/2 Tablet(s) PO Q6 as needed 02/16/2016 04/09/2016 In active oxycodone 20 mg tablet RxNorm: 9113281 1/2 Tablet(s) PO Q6 as needed 01/04/2016 02/15/2016 In active bisoprolol 5 mg-hydr ochlorothiazide 6.25 mg tablet RxNorm: 690814 1 Tablet(s) PO daily 11/19/2015 01/17/2016 Inactive bisoprolol 5 mg-hydr ochlorothiazide 6.25 mg tablet RxNorm: 920518 1 Tablet(s) PO daily 11/04/2015 11/18/2015 Inactive oxycodone 20 mg tablet RxNorm: 2591559 1/2 Tablet(s) PO Q6 as needed 10/27/2015 01/03/2016 In active levothyroxine 150 mc g tablet RxNorm: 434872 1 Tablet(s) PO daily 08/26/2015 02/21/2016 Inactive [SAVINGS FOR NON-COVERED DRUGS -- BIN:3584, PCN: ASPROD1, Group: XXXXX, ID# [id number], Questions: . THIS IS NOT INSURANCE.] bisoprolol 5 mg-hydr ochlorothiazide 6.25 mg tablet RxNorm: 423787 1 Tablet(s) PO daily 08/26/2015 10/24/2015 Inactive oxycodone 10 mg tablet RxNorm: 9272471 1 Tablet(s) PO Q6 as needed 05/06/2015 10/26/2015 Inactive levothyroxine 150 mc g tablet RxNorm: 278371 1 Tablet(s) PO daily 02/05/2015 08/03/2015 Inactive [SAVINGS FOR NON-COVERED DRUGS -- BIN:5, PCN: ASPROD1, Group: XXXXX, ID# [id number], Questions: . THIS IS NOT INSURANCE.] Vitamin D2 50,000 un it capsule RxNorm: 882140 1 Capsule(s) PO weekly 02/05/2015 05/05/2015 Inactive [SAVINGS FOR NON-COVERED DRUGS -- BIN: 3585, PCN: ASPROD1, Group: XXXXX, ID# [id number], Questions: . THIS IS NOT INSURANCE.] Vitamin D2 50,000 un it capsule RxNorm: 919626 1 Capsule(s) PO weekly 02/05/2015 02/04/2015 Inactive bisoprolol 5 mg-hydr ochlorothiazide 6.25 mg tablet RxNorm: 312775 1 Tablet(s) PO daily 01/26/2015 02/24/2015 Inactive levothyroxine 200 mc g tablet RxNorm: 630960 1 Tablet(s) PO daily 01/26/2015 01/25/2015 Inactive levothyroxine 200 mc g tablet RxNorm: 398989 1 Tablet(s) PO every other day 01/26/2015 02/04/2015 In active [SAVINGS FOR NON-COVERED DRUGS -- BIN:00 3585, PCN: ASPROD1, Group: XXXXX, ID# [id number], Questions: . THIS IS NOT INSURANCE.] aspirin 81 mg chewab le tablet RxNorm: 671542 1 Tablet(s) PO daily No Start Date Active Plavix 75 mg tablet RxNorm: 560275 1 Tablet(s) PO daily manage by Dr Lawler as No Start Date Active simvastatin 40 mg ta blet RxNorm: 205431 1 Tablet(s) PO QHS ma naged by Dr Baig No Start Date Active Colcrys 0.6 mg tablet RxNorm: 236480 2 tabs at onset then may repeat 1 tab in 1 hours if needed- Tablet(s) PO No Start Date 04/08/2017 Inactive then take daily until gout resolved aspirin 325 mg tablet RxNorm: 598356 1 Tablet(s) PO daily No Start Date 05/03/2016 Inactive levothyroxine 75 mcg tablet RxNorm: 243539 1 Tablet(s) PO every other day No Start Date 02/04/2015 Inactive takes qod with 200mcg oxycodone 10 mg tablet RxNorm: 3765930 1 Tablet(s) PO Q6 as needed No Start Date 05/05/2015 Inactive ketoconazole 2 % top ical cream RxNorm: 642824 1 Gram(s) TOP BID to affected area until healed No Start Date 08/02/2017 Inactive indomethacin oral RxNorm: 5781 oral No Start Date 03/21/2017 Inactive Medication Administered No Medication Administered data Immunizations Vaccine Codes Date Status Pneumococcal (Adult) CVX: 33 02/05/2018 completed Pneumococcal (Adult) CVX: 133 11/30/2016 completed Assessments Condition Codes Effectiv e Dates Type 2 diabetes mellitus with hyperglycemia ICD-10: E11.65 ICD-9: 250.00 03/12/2019 Dysuria ICD-10: R30.0 ICD-9: 788.1 03/12/2019 Chronic pain syndrome ICD-10: G89.4 ICD-9: 338.4 02/25/2019 Chronic kidney disease, stage 3 (moderate) ICD-10: N18.3 ICD-9: 585.3 02/25/2019 Essential (primary) hypertension ICD -10: I10 ICD-9: 401.1 02/25/2019 Cellulitis of left lower limb ICD-10 : L03.116 ICD-9: 682.6 10/18/2018 Cellulitis of right lower limb ICD-1 0: L03.115 ICD-9: 682.6 10/18/2018 Localized edema ICD-10: R60.0 ICD-9: 782.3 10/18/2018 Weakness ICD-10: R53.1 ICD-9: 780.79 10/14/2018 Chronic obstructive pulmonary disease, unspecified ICD-10: J44.9 ICD-9: 496 10/14/2018 Malignant neoplasm of prostate ICD-1 0: C61 ICD-9: 185 10/04/2018 Type 2 diabetes mellitus with foot ulcer ICD-10: E11.621 ICD-9: 250.80 10/04/2018 Hypoxemia ICD-10: R09.02 ICD-9: 799.02 10/04/2018 Generalized abdominal pain ICD-10: R 10.84 ICD-9: 789.07 02/20/2018 Gross hematuria ICD-10: R31.0 ICD-9: 599.71 02/20/2018 Unspecified jaundice ICD-10: R17 ICD-9: 782.4 02/20/2018 Encounter for screening for malignant neoplasm of pros [place] ICD-10: Z12.5 ICD-9: V76.44 02/05/2018 Other specified hypothyroidism ICD-1 0: E03.8 ICD-9: 244.9 02/05/2018 Encounter for immunization ICD-10: Z 23 ICD-9: V03.82 02/05/2018 Encounter for general adult medical exam ination with abnormal findings ICD-10: Z00.01 ICD-9: V70.0 11/30/2017 Essential (primary) hypertension ICD -10: I10 ICD-9: 401.9 09/20/2017 Chronic gout due to renal impairment, le ft ankle and foot, without 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 ICD-9: 274.19 03/22/2017 Encounter for immunization ICD-10: Z 23 ICD-9: V03.9 11/30/2016 Vitamin B12 deficiency anemia due to int rinsic factor deficiency ICD-10: D51.0 ICD-9: 281.0 05/04/2016 CHRONIC PAIN SYNDROME ICD-9: 338.4 01/26/2015 Vitamin B12 deficiency ICD-9: 266.2 01/26/2015 ESSENTIAL HYPERTENSION ICD-9: 401.9 01/26/2015 HYPOTHYROIDISM ICD-9: 244.9 01/26/2015 GOUT ICD-9: 274.9 2014 ANEMIA ICD-9: 285.9 01/15 Chronic renal insufficiency, stage III (moderate) ICD-9: [...] 11/08/2017 diabetes mellitus 09/20/2017 improving cellulitis 06/25/2017 im proving cellulitis 06/07/2017 im proving cellulitis 05/03/2017 im proving cellulitis 04/02/2017 im proving cellulitis 03/26/2017 im proving cellulitis 03/22/2017 diabetes mellitus 03/08/2017 diabetes mellitus 12/06/2016 Annual Medicare Wellness Exam 11/30/2016 hypertension 11/28/2016 hypertension 05/04/2016 medication follow up 11/04/2015 medication follow up 07/30/2015 knee pain 01/26/2015 Dr. Tellez did scopes 12 years ago Results Observation Observation Code Item Item Code Result Date CULTURE, URINE M100 URIN E CULTURE See Note 03/17/2019 %Hba1C Tye588 % HbA1c 94749-3 9.2 % 02/25/2019 %Hba1C Nsx264 Gluc Ave 217 mg/dL 02/25/2019 Comp Metabolic Gwe359 NA 136 mEq/L 02/25/2019 Comp Metabolic Ont059 K 4.8 mEq/L 02/25/2019 Comp Metabolic Ack505 CL 95 mEq/L 02/25/2019 Comp Metabolic Yeg327 CO2 36.0 mEq/L 02/25/2019 Comp Metabolic Rox385 AN ION GAP 10 02/25/2019 Comp Metabolic Zie704 GL UCOSE 255 mg/dL 02/25/2019 Comp Metabolic Ynr048 Cr eat 1.2 mg/dL 02/25/2019 Comp Metabolic Xzw608 eG FR 62 ml/min/1.73m2 02/25 Comp Metabolic Yqi902 BUN 29 mg/dL 02/25/2019 Comp Metabolic Uuy810 B/ C Ratio 24.0 Ratio 02/25/2019 Comp Metabolic Pah889 CA LCIUM 9.0 mg/dL 02/25/2019 Comp Metabolic Syp110 AL K PHOS 102 U/L 02/25/2019 Comp Metabolic Oxy101 T(SGOT) 12 U/L 02/25/2019 Comp Metabolic Qoy027 AL T(SGPT) 9 U/L 02/25/2019 Comp Metabolic Ejt050 BI LI T 0.6 mg/dL 02/25/2019 Comp Metabolic Ell370 AL BUMIN 3.8 g/dL 02/25/2019 Comp Metabolic Vuy980 TP RO 6.6 g/dL 02/25/2019 Comp Metabolic Rza566 GL OB 2.8 g/dL 02/25/2019 Comp Metabolic Nif397 A/ G Ratio 1.4 Ratio 02/25/2019 Comp Metabolic Xha511 Os mo 286 mOsmo 02/25/2019 %Hba1C Vhm155 % HbA1c 96087-6 6.4 % 08/30/2018 %Hba1C Fsy185 Gluc Ave 137 mg/dL 08/30/2018 Culture Urine [id number] URI NE CULTURE SEE NOTES 02/22/2018 Urine Culture Ucult Comp lete Growth of aerobe sent to ref lab [...] 24.5 pg 02/20/2018 Cbc With Differential Ord2 [place]% 8.9 % 02/20/2018 Cbc With Differential Ord2 [...] 0.81 K/ul 02/20/2018 Cbc With Differential Ord2 [place] ABS# 0.7 K/ul 02/20/2018 Cbc With Differential Ord2 Eos ABS# 0.4 K/ul 02/20/2018 Cbc With Differential Ord2 Baso ABS# 0.0 K/ul 02/20/2018 %Hba1C Ubu409 % HbA1c 99050-6 7.7 % 02/20/2018 %Hba1C Cry064 Gluc Ave 174 mg/dL 02/20/2018 Lipase Pxa197 LIPASE 17 U/L 02/20/2018 Microalbumin Jvf109 Micr oAlb 6.5 mg/dL 02/20/2018 Amylase Ord34 AMYLASE 15 U/L 02/20/2018 Free T4 Mzh024 FREE T4 0.61 ng/dL 02/20/2018 Lipid Ord30 CHOL 203 mg/dL 02/20/2018 Lipid Ord30 HDL 7.0 mg/dl 02/20/2018 Lipid Ord30 TRIG 271 mg/dL 02/20/2018 Lipid Ord30 LDL 142 mg/dL 02/20/2018 Lipid Ord30 C/HDL 29.0 Ratio 02/20/2018 Comp Metabolic Opk791 NA 134 mEq/L 02/20/2018 Comp Metabolic Jmx859 K 3.6 mEq/L 02/20/2018 Comp Metabolic Zuk987 CL 96 mEq/L 02/20/2018 Comp Metabolic Hfn897 CO2 29.0 mEq/L 02/20/2018 Comp Metabolic Wlp333 AN ION GAP 13 02/20/2018 Comp Metabolic Aby262 GL UCOSE 165 mg/dL 02/20/2018 Comp Metabolic Yom699 Cr eat 1.2 mg/dL 02/20/2018 Comp Metabolic Wmg339 eG FR 63 ml/min/1.73m2 02/20 Comp Metabolic Mie158 BUN 14 mg/dL 02/20/2018 Comp Metabolic Ojx705 B/ C Ratio 11.6 Ratio 02/20/2018 Comp Metabolic Pzt632 CA LCIUM 8.5 mg/dL 02/20/2018 Comp Metabolic Npu284 AL K PHOS 633 U/L 02/20/2018 Comp Metabolic Eer201 T(SGOT) 112 U/L 02/20/2018 Comp Metabolic Ook469 AL T(SGPT) 148 U/L 02/20/2018 Comp Metabolic Wza078 BI LI T 6.8 mg/dL 02/20/2018 Comp Metabolic Hvu174 AL BUMIN 3.3 g/dL 02/20/2018 Comp Metabolic Xbg997 TP RO 5.9 g/dL 02/20/2018 Comp Metabolic Dyb171 GL OB 2.6 g/dL 02/20/2018 Comp Metabolic Ufq905 A/ G Ratio 1.3 Ratio 02/20/2018 Comp Metabolic Wor822 Os mo 272 mOsmo 02/20/2018 Total Psa Ord10 PSA [...] Metabolic Ord15 CALCIUM 9.2 mg/dL 11/09/2017 %Hba1C Iey695 % HbA1c 36237-5 8.0 % 11/09/2017 %Hba1C Jrt710 Gluc Ave 183 mg/dL 11/09/2017 Metabolic Ord15 [...] Ord15 CALCIUM 8.7 mg/dL 06/25/2017 Culture Wound [id number] WOU ND CULTURE SEE NOTES 04/09/2017 Culture Wound [id number] Con tinued Results 04/09/2017 Amylase Ord34 AMYLASE 19 U/L [...] 27.9 pg 03/22/2017 Cbc With Differential Ord2 [place]% 8.3 % 03/22/2017 Cbc With Differential Ord2 [...] 1.35 K/ul 03/22/2017 Cbc With Differential Ord2 [place] ABS# 1.4 K/ul 03/22/2017 Cbc With Differential Ord2 Eos ABS# 0.2 K/ul 03/22/2017 Cbc With Differential Ord2 Baso ABS# 0.0 K/ul 03/22/2017 Comp Metabolic Gpl957 NA 134 mEq/L 03/22/2017 Comp Metabolic Eha420 K 4.5 mEq/L 03/22/2017 Comp Metabolic Vnd139 CL 93 mEq/L 03/22/2017 Comp Metabolic Hzt912 CO2 31.0 mEq/L 03/22/2017 Comp Metabolic Wtw860 AN ION GAP 15 03/22/2017 Comp Metabolic Pnd643 GL UCOSE 198 mg/dL 03/22/2017 Comp Metabolic Oyx415 Cr eat 1.5 mg/dL 03/22/2017 Comp Metabolic Lui679 eG FR 50 ml/min/1.73m2 03/22 Comp Metabolic Pac267 BUN 32 mg/dL 03/22/2017 Comp Metabolic Pyv590 B/ C Ratio 21.6 Ratio 03/22/2017 Comp Metabolic Ayr491 CA LCIUM 8.4 mg/dL 03/22/2017 Comp Metabolic Lcl904 AL K PHOS 245 U/L 03/22/2017 Comp Metabolic Oxh571 T(SGOT) 18 U/L 03/22/2017 Comp Metabolic Cci124 AL T(SGPT) 17 U/L 03/22/2017 Comp Metabolic Mae749 BI LI T 0.8 mg/dL 03/22/2017 Comp Metabolic Zpj262 AL BUMIN 2.9 g/dL 03/22/2017 Comp Metabolic Xvl142 TP RO 6.3 g/dL 03/22/2017 Comp Metabolic Quu303 GL OB 3.4 g/dL 03/22/2017 Comp Metabolic Nao004 A/ G Ratio 0.8 Ratio 03/22/2017 Comp Metabolic Hlg169 Os mo 281 mOsmo 03/22/2017 Lipase Pss454 LIPASE 12 U/L 03/22/2017 Comp Metabolic Uxd316 NA 142 mEq/L 03/09/2017 Comp Metabolic Osv558 K 4.8 mEq/L 03/09/2017 Comp Metabolic Ioj777 CL 103 mEq/L 03/09/2017 Comp Metabolic Vvd833 CO2 30.0 mEq/L 03/09/2017 Comp Metabolic Zhh904 AN ION GAP 14 03/09/2017 Comp Metabolic Nwa375 GL UCOSE 152 mg/dL 03/09/2017 Comp Metabolic Tiw310 Cr eat 1.3 mg/dL 03/09/2017 Comp Metabolic Hlx399 eG FR 56 ml/min/1.73m2 03/09 Comp Metabolic Dog722 BUN 23 mg/dL 03/09/2017 Comp Metabolic Puu544 B/ C Ratio 17.3 Ratio 03/09/2017 Comp Metabolic Nvk940 CA LCIUM 8.5 mg/dL 03/09/2017 Comp Metabolic Acl326 AL K PHOS 97 U/L 03/09/2017 Comp Metabolic Mzg279 T(SGOT) 10 U/L 03/09/2017 Comp Metabolic Fmw591 AL T(SGPT) 6 U/L 03/09/2017 Comp Metabolic Jhq988 BI LI T 0.4 mg/dL 03/09/2017 Comp Metabolic Crj247 AL BUMIN 3.4 g/dL 03/09/2017 Comp Metabolic Aqo023 TP RO 6.2 g/dL 03/09/2017 Comp Metabolic Zae888 GL OB 2.8 g/dL 03/09/2017 Comp Metabolic Jib881 A/ G Ratio 1.2 Ratio 03/09/2017 Comp Metabolic Sar229 Os mo 290 mOsmo 03/09/2017 Free T4 Evm821 FREE T4 0.86 ng/dL 03/08/2017 Cbc With [...] 28.2 pg 03/08/2017 Cbc With Differential Ord2 [place]% 8.7 % 03/08/2017 Cbc With Differential Ord2 [...] 1.63 K/ul 03/08/2017 Cbc With Differential Ord2 [place] ABS# 0.9 K/ul 03/08/2017 Cbc With Differential Ord2 Eos ABS# 0.5 K/ul 03/08/2017 Cbc With Differential Ord2 Baso ABS# 0.0 K/ul 03/08/2017 Tsh Ord6 hTSH II 4.52 uIU/mL 03/08/2017 %Hba1C Qte564 % HbA1c 92837-3 8.5 % 03/08/2017 %Hba1C Lpb478 Gluc Ave 197 mg/dL 03/08/2017 %Hba1C Jjx640 % HbA1c 86944-4 9.8 % 12/04/2016 %Hba1C Kxf594 Gluc Ave 235 mg/dL 12/04/2016 Tsh Ord6 hTSH II 10.65 uIU/mL 11/30/2016 Comp Metabolic Rur505 NA 134 mEq/L 11/30/2016 Comp Metabolic Bzu601 K 5.0 mEq/L 11/30/2016 Comp Metabolic Sck685 CL 95 mEq/L 11/30/2016 Comp Metabolic Tgi551 CO2 34.0 mEq/L 11/30/2016 Comp Metabolic Nev940 AN ION GAP 10 11/30/2016 Comp Metabolic Omp570 GL UCOSE 226 mg/dL 11/30/2016 Comp Metabolic Ots120 Cr eat 1.3 mg/dL 11/30/2016 Comp Metabolic Mhm469 eG FR 56 ml/min/1.73m2 11/30 Comp Metabolic Rhg237 BUN 21 mg/dL 11/30/2016 Comp Metabolic Giv421 B/ C Ratio 15.7 Ratio 11/30/2016 Comp Metabolic Frp433 CA LCIUM 8.9 mg/dL 11/30/2016 Comp Metabolic Aoi593 AL K PHOS 112 U/L 11/30/2016 Comp Metabolic Mdw324 T(SGOT) 9 U/L 11/30/2016 Comp Metabolic Moq233 AL T(SGPT) 7 U/L 11/30/2016 Comp Metabolic Uhj508 BI LI T 0.6 mg/dL 11/30/2016 Comp Metabolic Xvn095 AL BUMIN 3.6 g/dL 11/30/2016 Comp Metabolic Tqz262 TP RO 6.4 g/dL 11/30/2016 Comp Metabolic Fbl672 GL OB 2.9 g/dL 11/30/2016 Comp Metabolic Rhh876 A/ G Ratio 1.2 Ratio 11/30/2016 Comp Metabolic Rir782 Os mo 278 mOsmo 11/30/2016 Lipid Ord30 CHOL 170 [...] 30.6 pg 11/30/2016 Cbc With Differential Ord2 [place]% 7.9 % 11/30/2016 Cbc With Differential Ord2 [...] 1.34 K/ul 11/30/2016 Cbc With Differential Ord2 [place] ABS# 0.8 K/ul 11/30/2016 Cbc With Differential Ord2 Eos ABS# 0.3 K/ul 11/30/2016 Cbc With Differential Ord2 Baso ABS# 0.0 K/ul 11/30/2016 Free T4 Rtp903 FREE T4 0.89 ng/dL 11/30/2016 Review of Systems System Result Effective Dates Constitutional No recent illness 03/12/2019 Constitutional No chills 03/12/2019 Constitutional No diaphoresis 03/12/2019 Constitutional No fever 03/12/2019 Eyes No eye erythema Ears/Nose/Throat/Neck No nasal discharge 03/12/2019 Cardiovascular No chest pain/pressure 03/12/2019 Respiratory No cough Gastrointestinal No abdominal pain 03/12/2019 Genitourinary/Nephrology dysuria 03/12/2019 Genitourinary/Nephrology urinary urgency 03/12/2019 Genitourinary/Nephrology urinary frequency 03/12/2019 Neurologic No alteration of consciousness 03/12/2019 Neurologic No mental status change 03/12/2019 Constitutional No recent illness 02/25/2019 Constitutional No chills 02/25/2019 Constitutional No fatigue 02/25/2019 Constitutional No fever 02/25/2019 Eyes No blindness 2018 Eyes No vision change Ears/Nose/Throat/Neck No dizziness 02/25/2019 Ears/Nose/Throat/Neck No headache 02/25/2019 Cardiovascular No chest pain/pressure 02/25/2019 Cardiovascular No near-syncope/dizziness 02/25/2019 Cardiovascular No palpitations 02/25/2019 Respiratory No chest congestion 02/25/2019 Respiratory No cough 07/2019 Respiratory dyspnea 02/15 Gastrointestinal No abdominal pain 02/25/2019 Gastrointestinal No constipation 02/25/2019 Gastrointestinal No diarrhea 02/25/2019 Gastrointestinal No nausea 02/25/2019 Gastrointestinal No vomiting 02/25/2019 Genitourinary/Nephrology No dysuria 02/25/2019 Musculoskeletal stiffness 02/25/2019 Musculoskeletal arthralgia(s) 02/25/2019 Musculoskeletal joint complaint 02/25/2019 Dermatologic No rash 07/2019 Dermatologic No scar 07/2019 Neurologic No alteration of consciousness 02/25/2019 Neurologic paresthesia 0 02/25/2019 Psychiatric No anxiety 0 02/25/2019 Psychiatric No depression 02/25/2019 Dermatologic sores 02/25 Constitutional No recent illness 10/18/2018 Constitutional No chills 10/18/2018 Constitutional No diaphoresis 10/18/2018 Constitutional No fever 10/18/2018 Eyes No eye erythema 09/2018 Ears/Nose/Throat/Neck No nasal discharge 10/18/2018 Cardiovascular No chest pain/pressure 10/18/2018 Cardiovascular dyspnea 0 10/18/2018 Cardiovascular edema 09/2018 Cardiovascular No palpitations 10/18/2018 Respiratory No cough 09/2018 Respiratory dyspnea on exertion 10/18/2018 Dermatologic sores 10/18 Neurologic No alteration of consciousness 10/18/2018 Neurologic No mental status change 10/18/2018 Constitutional No recent illness 10/14/2018 Constitutional No chills 10/14/2018 Constitutional No diaphoresis 10/14/2018 Constitutional No fever 10/14/2018 Eyes No eye erythema Ears/Nose/Throat/Neck No nasal discharge 10/14/2018 Cardiovascular No chest pain/pressure 10/14/2018 Cardiovascular edema Cardiovascular No palpitations 10/14/2018 Respiratory No cough Respiratory dyspnea on exertion 10/14/2018 Dermatologic sores 10/14 Neurologic No alteration of consciousness 10/14/2018 Neurologic No mental status change 10/14/2018 Constitutional No recent illness 10/10/2018 Constitutional No chills 10/10/2018 Constitutional No diaphoresis 10/10/2018 Constitutional No fever 10/10/2018 Eyes No eye erythema Ears/Nose/Throat/Neck No nasal discharge 10/10/2018 Cardiovascular No chest pain/pressure 10/10/2018 Cardiovascular edema Cardiovascular dyspnea 0 10/10/2018 Cardiovascular No palpitations 10/10/2018 Respiratory No cough Respiratory dyspnea on exertion 10/10/2018 Dermatologic sores 10/10 Neurologic No alteration of consciousness 10/10/2018 Neurologic No mental status change 10/10/2018 Constitutional No recent illness 10/04/2018 Constitutional No chills 10/04/2018 Constitutional No fatigue 10/04/2018 Constitutional No fever 10/04/2018 Eyes No blindness 2018 Eyes No vision change Ears/Nose/Throat/Neck No dizziness 10/04/2018 Ears/Nose/Throat/Neck No headache 10/04/2018 Cardiovascular No chest pain/pressure 10/04/2018 Cardiovascular No near-syncope/dizziness 10/04/2018 Cardiovascular No palpitations 10/04/2018 Respiratory No chest congestion 10/04/2018 Respiratory No cough Gastrointestinal No abdominal pain 10/04/2018 Gastrointestinal No constipation 10/04/2018 Gastrointestinal No diarrhea 10/04/2018 Gastrointestinal No nausea 10/04/2018 Gastrointestinal No vomiting 10/04/2018 Genitourinary/Nephrology No dysuria 10/04/2018 Musculoskeletal stiffness 10/04/2018 Musculoskeletal arthralgia(s) 10/04/2018 Dermatologic No rash Dermatologic No scar Neurologic No alteration of consciousness 10/04/2018 Psychiatric No anxiety 0 10/04/2018 Psychiatric No depression 10/04/2018 Musculoskeletal joint complaint 10/04/2018 Respiratory dyspnea 09/17 Dermatologic skin lesion 10/04/2018 Neurologic paresthesia 0 10/04/2018 Constitutional No recent illness 08/29/2018 Constitutional No chills 08/29/2018 Constitutional No fatigue 08/29/2018 Constitutional No fever 08/29/2018 Eyes No blindness 2017 Eyes No vision change Ears/Nose/Throat/Neck No dizziness 08/29/2018 Ears/Nose/Throat/Neck No headache 08/29/2018 Cardiovascular No chest pain/pressure 08/29/2018 Cardiovascular No near-syncope/dizziness 08/29/2018 Cardiovascular No palpitations 08/29/2018 Respiratory No chest congestion 08/29/2018 Respiratory No cough Gastrointestinal No abdominal pain 08/29/2018 Gastrointestinal No constipation 08/29/2018 Gastrointestinal No diarrhea 08/29/2018 Gastrointestinal No nausea 08/29/2018 Gastrointestinal No vomiting 08/29/2018 Genitourinary/Nephrology No dysuria 08/29/2018 Musculoskeletal stiffness 08/29/2018 Musculoskeletal arthralgia(s) 08/29/2018 Dermatologic No rash Dermatologic No scar Neurologic No alteration of consciousness 08/29/2018 Psychiatric No anxiety 1 10/30/2017 Psychiatric No depression 08/29/2018 Constitutional recent illness 02/25/2018 Constitutional anorexia 02/25/2018 Constitutional obesity 0 02/25/2018 Constitutional No chills 02/25/2018 Constitutional No diaphoresis 02/25/2018 Constitutional fatigue 0 02/25/2018 Constitutional No fever 02/25/2018 Constitutional malaise 0 02/25/2018 Ears/Nose/Throat/Neck No nasal discharge 02/25/2018 Cardiovascular No chest pain/pressure 02/25/2018 Cardiovascular No dyspnea 02/25/2018 Respiratory No chest congestion 02/25/2018 Respiratory No cough 07/2018 Gastrointestinal abdominal pain 02/25/2018 Gastrointestinal constipation 02/25/2018 Gastrointestinal No diarrhea 02/25/2018 Gastrointestinal jaundice 02/25/2018 Gastrointestinal nausea 02/25/2018 Gastrointestinal No vomiting 02/25/2018 Genitourinary/Nephrology No dysuria 02/25/2018 Genitourinary/Nephrology hematuria 02/25/2018 Dermatologic No rash 07/2018 Neurologic No alteration of consciousness 02/25/2018 Neurologic No mental status change 02/25/2018 Constitutional recent illness 02/20/2018 Constitutional anorexia 02/20/2018 Constitutional obesity 0 02/20/2018 Constitutional No chills 02/20/2018 Constitutional No diaphoresis 02/20/2018 Constitutional No fever 02/20/2018 Constitutional fatigue 0 02/20/2018 Constitutional malaise 0 02/20/2018 Eyes No eye erythema 02/2018 Ears/Nose/Throat/Neck No nasal discharge 02/20/2018 Cardiovascular No chest pain/pressure 02/20/2018 Cardiovascular No dyspnea 02/20/2018 Respiratory No cough 02/2018 Respiratory No chest congestion 02/20/2018 Gastrointestinal abdominal pain 02/20/2018 Gastrointestinal constipation 02/20/2018 Gastrointestinal No diarrhea 02/20/2018 Gastrointestinal nausea 02/20/2018 Gastrointestinal No vomiting 02/20/2018 Genitourinary/Nephrology No dysuria 02/20/2018 Dermatologic No rash 02/2018 Neurologic No alteration of consciousness 02/20/2018 Neurologic No mental status change 02/20/2018 Gastrointestinal jaundice 02/20/2018 Genitourinary/Nephrology hematuria 02/20/2018 Constitutional No recent illness 02/05/2018 Constitutional No chills 02/05/2018 Constitutional No fatigue 02/05/2018 Constitutional No fever 02/05/2018 Eyes No blindness 2017 Eyes No vision change Ears/Nose/Throat/Neck No dizziness 02/05/2018 Ears/Nose/Throat/Neck No headache 02/05/2018 Cardiovascular No chest pain/pressure 02/05/2018 Cardiovascular No near-syncope/dizziness 02/05/2018 Cardiovascular No palpitations 02/05/2018 Respiratory No chest congestion 02/05/2018 Respiratory No cough Gastrointestinal No abdominal pain 02/05/2018 Gastrointestinal No constipation 02/05/2018 Gastrointestinal No diarrhea 02/05/2018 Gastrointestinal No nausea 02/05/2018 Gastrointestinal No vomiting 02/05/2018 Musculoskeletal stiffness 02/05/2018 Musculoskeletal arthralgia(s) 02/05/2018 Dermatologic No rash Dermatologic No scar Neurologic No alteration of consciousness 02/05/2018 Psychiatric No anxiety 0 02/05/2018 Psychiatric No depression 02/05/2018 Genitourinary/Nephrology No dysuria 02/05/2018 Constitutional No recent illness 11/30/2017 Constitutional No chills 11/30/2017 Constitutional No fatigue 11/30/2017 Constitutional No fever 11/30/2017 Eyes No blindness 2017 Eyes No vision change Ears/Nose/Throat/Neck No dizziness 11/30/2017 Ears/Nose/Throat/Neck No headache 11/30/2017 Cardiovascular No chest pain/pressure 11/30/2017 Cardiovascular No near-syncope/dizziness 11/30/2017 Cardiovascular No palpitations 11/30/2017 Respiratory No chest congestion 11/30/2017 Respiratory No cough Gastrointestinal No abdominal pain 11/30/2017 Gastrointestinal No constipation 11/30/2017 Gastrointestinal No diarrhea 11/30/2017 Gastrointestinal No nausea 11/30/2017 Gastrointestinal No vomiting 11/30/2017 Musculoskeletal stiffness 11/30/2017 Musculoskeletal arthralgia(s) 11/30/2017 Dermatologic No rash Dermatologic No scar Neurologic No alteration of consciousness 11/30/2017 Psychiatric No anxiety 0 11/30/2017 Psychiatric No depression 11/30/2017 Dermatologic sores 11/30 Constitutional No anorexia 11/08/2017 Constitutional No night sweats 11/08/2017 Constitutional No chills 11/08/2017 Constitutional No diaphoresis 11/08/2017 Constitutional No fatigue 11/08/2017 Constitutional No fever 11/08/2017 Constitutional No insomnia 11/08/2017 Constitutional No malaise 11/08/2017 Eyes No blindness 2017 Eyes No vision change Ears/Nose/Throat/Neck No dizziness 11/08/2017 Cardiovascular No chest pain/pressure 11/08/2017 Cardiovascular No dyspnea 11/08/2017 Cardiovascular edema Respiratory No cough Respiratory No dyspnea on exertion 11/08/2017 Respiratory No dyspnea 0 11/08/2017 Gastrointestinal No hemorrhoids 11/08/2017 Gastrointestinal No abdominal pain 11/08/2017 Gastrointestinal No constipation 11/08/2017 Gastrointestinal No diarrhea 11/08/2017 Gastrointestinal No gastroesophageal reflu x 11/08/2017 Gastrointestinal No melena 11/08/2017 Gastrointestinal No nausea 11/08/2017 Gastrointestinal No vomiting 11/08/2017 Genitourinary/Nephrology No dysuria 11/08/2017 Musculoskeletal joint complaint 11/08/2017 Neurologic paresthesia 0 11/08/2017 Psychiatric No anxiety 0 11/08/2017 Psychiatric No depression 11/08/2017 Constitutional No anorexia 09/20/2017 Constitutional No night sweats 09/20/2017 Constitutional No chills 09/20/2017 Constitutional No diaphoresis 09/20/2017 Constitutional No fatigue 09/20/2017 Constitutional No fever 09/20/2017 Constitutional No insomnia 09/20/2017 Constitutional No malaise 09/20/2017 Constitutional No weight loss 09/20/2017 Constitutional No weight gain 09/20/2017 Ears/Nose/Throat/Neck No dizziness 09/20/2017 Cardiovascular No chest pain/pressure 09/20/2017 Cardiovascular No dyspnea 09/20/2017 Cardiovascular edema 12/2017 Respiratory No cough 12/2017 Respiratory No dyspnea on exertion 09/20/2017 Respiratory No dyspnea 0 09/20/2017 Genitourinary/Nephrology No dysuria 09/20/2017 Musculoskeletal joint complaint 09/20/2017 Dermatologic sores 09/20 Psychiatric No anxiety 0 09/20/2017 Psychiatric No depression 09/20/2017 Neurologic paresthesia 0 09/20/2017 Gastrointestinal No hemorrhoids 09/20/2017 Gastrointestinal No abdominal pain 09/20/2017 Gastrointestinal No constipation 09/20/2017 Gastrointestinal No diarrhea 09/20/2017 Gastrointestinal No gastroesophageal reflu x 09/20/2017 Gastrointestinal No melena 09/20/2017 Gastrointestinal No nausea 09/20/2017 Gastrointestinal No vomiting 09/20/2017 Eyes No blindness 2017 Eyes No vision change Constitutional No anorexia 06/25/2017 Constitutional No night sweats 06/25/2017 Constitutional No chills 06/25/2017 Constitutional No diaphoresis 06/25/2017 Constitutional No fatigue 06/25/2017 Constitutional No fever 06/25/2017 Constitutional No insomnia 06/25/2017 Constitutional No malaise 06/25/2017 Constitutional No weight loss 06/25/2017 Constitutional No weight gain 06/25/2017 Cardiovascular No chest pain/pressure 06/25/2017 Cardiovascular No dyspnea 06/25/2017 Cardiovascular edema 05/2017 Respiratory No cough 05/2017 Respiratory No dyspnea on exertion 06/25/2017 Respiratory No dyspnea 1 Genitourinary/Nephrology No dysuria 06/25/2017 Musculoskeletal joint complaint 06/25/2017 Dermatologic sores 06/25 Ears/Nose/Throat/Neck No dizziness 06/25/2017 Dermatologic erythema Constitutional No recent illness 06/07/2017 Constitutional No anorexia 06/07/2017 Constitutional No night sweats 06/07/2017 Constitutional No chills 06/07/2017 Constitutional No diaphoresis 06/07/2017 Constitutional No fatigue 06/07/2017 Constitutional No fever 06/07/2017 Constitutional No insomnia 06/07/2017 Constitutional No malaise 06/07/2017 Cardiovascular edema Constitutional No anorexia 05/03/2017 Constitutional No night sweats 05/03/2017 Constitutional No chills 05/03/2017 Constitutional No diaphoresis 05/03/2017 Constitutional No fatigue 05/03/2017 Constitutional No fever 05/03/2017 Constitutional No insomnia 05/03/2017 Constitutional No malaise 05/03/2017 Constitutional No weight loss 05/03/2017 Constitutional No weight gain 05/03/2017 Cardiovascular No chest pain/pressure 05/03/2017 Cardiovascular No dyspnea 05/03/2017 Cardiovascular edema Respiratory No cough Respiratory No dyspnea on exertion 05/03/2017 Respiratory No dyspnea 0 05/03/2017 Genitourinary/Nephrology No dysuria 05/03/2017 Musculoskeletal joint complaint 05/03/2017 Dermatologic sores 05/03 Constitutional recent illness 04/02/2017 Constitutional No anorexia 04/02/2017 Constitutional No night sweats 04/02/2017 Constitutional No chills 04/02/2017 Constitutional No diaphoresis 04/02/2017 Constitutional No fatigue 04/02/2017 Constitutional No fever 04/02/2017 Constitutional No insomnia 04/02/2017 Constitutional No malaise 04/02/2017 Constitutional No weight loss 04/02/2017 Constitutional No weight gain 04/02/2017 Cardiovascular No chest pain/pressure 04/02/2017 Cardiovascular No dyspnea 04/02/2017 Cardiovascular edema Respiratory No cough Respiratory No dyspnea on exertion 04/02/2017 Respiratory No dyspnea 0 04/02/2017 Genitourinary/Nephrology No dysuria 04/02/2017 Musculoskeletal joint complaint 04/02/2017 Dermatologic erythema Dermatologic cellulitis 04/02/2017 Constitutional recent illness 03/26/2017 Constitutional No anorexia 03/26/2017 Constitutional No night sweats 03/26/2017 Constitutional No chills 03/26/2017 Constitutional No diaphoresis 03/26/2017 Constitutional No fatigue 03/26/2017 Constitutional No fever 03/26/2017 Constitutional No insomnia 03/26/2017 Constitutional No malaise 03/26/2017 Constitutional No weight loss 03/26/2017 Constitutional No weight gain 03/26/2017 Cardiovascular No chest pain/pressure 03/26/2017 Cardiovascular No dyspnea 03/26/2017 Cardiovascular edema 06/2017 Respiratory No cough 06/2017 Respiratory No dyspnea on exertion 03/26/2017 Respiratory No dyspnea 0 03/26/2017 Genitourinary/Nephrology No dysuria 03/26/2017 Musculoskeletal joint complaint 03/26/2017 Dermatologic erythema Dermatologic cellulitis 03/26/2017 Constitutional recent illness 03/22/2017 Constitutional No anorexia 03/22/2017 Constitutional No night sweats 03/22/2017 Constitutional No chills 03/22/2017 Constitutional No diaphoresis 03/22/2017 Constitutional No fatigue 03/22/2017 Constitutional No fever 03/22/2017 Constitutional No insomnia 03/22/2017 Constitutional No malaise 03/22/2017 Constitutional No weight loss 03/22/2017 Constitutional No weight gain 03/22/2017 Cardiovascular No chest pain/pressure 03/22/2017 Cardiovascular No dyspnea 03/22/2017 Cardiovascular edema 02/2017 Respiratory No cough 02/2017 Respiratory No dyspnea on exertion 03/22/2017 Respiratory No dyspnea 0 03/22/2017 Musculoskeletal joint complaint 03/22/2017 Dermatologic erythema Dermatologic cellulitis 03/22/2017 Genitourinary/Nephrology No dysuria 03/22/2017 Constitutional No recent illness 03/08/2017 Constitutional No chills 03/08/2017 Constitutional No fatigue 03/08/2017 Constitutional No fever 03/08/2017 Eyes No blindness 2016 Eyes No vision change Ears/Nose/Throat/Neck No dizziness 03/08/2017 Ears/Nose/Throat/Neck No headache 03/08/2017 Cardiovascular No chest pain/pressure 03/08/2017 Cardiovascular No near-syncope/dizziness 03/08/2017 Cardiovascular No palpitations 03/08/2017 Respiratory No chest congestion 03/08/2017 Respiratory No cough Gastrointestinal No abdominal pain 03/08/2017 Gastrointestinal No constipation 03/08/2017 Gastrointestinal No diarrhea 03/08/2017 Gastrointestinal No nausea 03/08/2017 Gastrointestinal No vomiting 03/08/2017 Musculoskeletal stiffness 03/08/2017 Musculoskeletal arthralgia(s) 03/08/2017 Dermatologic No rash Dermatologic No scar Neurologic No alteration of consciousness 03/08/2017 Psychiatric No anxiety 0 03/08/2017 Psychiatric No depression 03/08/2017 Constitutional No recent illness 12/06/2016 Constitutional No anorexia 12/06/2016 Constitutional No night sweats 12/06/2016 Constitutional No chills 12/06/2016 Constitutional No diaphoresis 12/06/2016 Constitutional No fatigue 12/06/2016 Constitutional No fever 12/06/2016 Constitutional No insomnia 12/06/2016 Constitutional No malaise 12/06/2016 Constitutional No weight loss 12/06/2016 Constitutional obesity 0 12/06/2016 Eyes No eye pain 017 Eyes No vision change Ears/Nose/Throat/Neck No dental pain 12/06/2016 Ears/Nose/Throat/Neck No dizziness 12/06/2016 Ears/Nose/Throat/Neck No facial pain 12/06/2016 Ears/Nose/Throat/Neck No headache 12/06/2016 Cardiovascular No chest pain/pressure 12/06/2016 Cardiovascular dyspnea 0 12/06/2016 Cardiovascular No exercise intolerance 12/06/2016 Cardiovascular No fatigue 12/06/2016 Cardiovascular No palpitations 12/06/2016 Respiratory No chest congestion 12/06/2016 Respiratory No chest tightness 12/06/2016 Respiratory No cigarette smoking 12/06/2016 Respiratory No cough Respiratory dyspnea on exertion 12/06/2016 Respiratory dyspnea 11/16 Gastrointestinal No abdominal pain 12/06/2016 Gastrointestinal constipation 12/06/2016 Gastrointestinal No diarrhea 12/06/2016 Genitourinary/Nephrology No anuria/oliguri a 12/06/2016 Genitourinary/Nephrology No dysuria 12/06/2016 Genitourinary/Nephrology No urinary urgenc y 12/06/2016 Genitourinary/Nephrology No urinary frequency 12/06/2016 Genitourinary/Nephrology No urinary incontinence 12/06/2016 Genitourinary/Nephrology No urinary retention/hesitancy 12/06/2016 Musculoskeletal stiffness 12/06/2016 Musculoskeletal swelling 12/06/2016 Musculoskeletal arthralgia(s) 12/06/2016 Musculoskeletal back pain 12/06/2016 Musculoskeletal bone pain 12/06/2016 Musculoskeletal joint complaint 12/06/2016 Dermatologic No rash Dermatologic No sores Neurologic No alteration of consciousness 12/06/2016 Neurologic No dizziness 12/06/2016 Neurologic No headache 0 12/06/2016 Neurologic No memory loss 12/06/2016 Neurologic No mental status change 12/06/2016 Psychiatric No anxiety 0 12/06/2016 Psychiatric No depression 12/06/2016 Endocrine No polydipsia 12/06/2016 Endocrine No polyuria Endocrine No sweating Endocrine No weakness Hematologic/Lymphatic No abnormal ec chymoses 12/06/2016 Hematologic/Lymphatic No abnormal bl eeding and bruising 12/06/2016 Neurologic paresthesia 0 12/06/2016 Constitutional No recent illness 11/30/2016 Constitutional No anorexia 11/30/2016 Constitutional No night sweats 11/30/2016 Constitutional No chills 11/30/2016 Constitutional No diaphoresis 11/30/2016 Constitutional No fatigue 11/30/2016 Constitutional No fever 11/30/2016 Constitutional No insomnia 11/30/2016 Constitutional No malaise 11/30/2016 Constitutional No weight loss 11/30/2016 Constitutional obesity 0 11/30/2016 Eyes No eye pain 017 Eyes No vision change Ears/Nose/Throat/Neck No dizziness 11/30/2016 Ears/Nose/Throat/Neck No headache 11/30/2016 Ears/Nose/Throat/Neck No dental pain 11/30/2016 Ears/Nose/Throat/Neck No facial pain 11/30/2016 Cardiovascular dyspnea 0 11/30/2016 Cardiovascular No palpitations 11/30/2016 Cardiovascular No chest pain/pressure 11/30/2016 Cardiovascular No exercise intolerance 11/30/2016 Cardiovascular No fatigue 11/30/2016 Respiratory No cough Respiratory No cigarette smoking 11/30/2016 Respiratory No chest tightness 11/30/2016 Respiratory No chest congestion 11/30/2016 Respiratory dyspnea on exertion 11/30/2016 Respiratory dyspnea 11/15 Gastrointestinal No abdominal pain 11/30/2016 Gastrointestinal constipation 11/30/2016 Gastrointestinal No diarrhea 11/30/2016 Genitourinary/Nephrology No dysuria 11/30/2016 Genitourinary/Nephrology No anuria/oliguri a 11/30/2016 Genitourinary/Nephrology No urinary retention/hesitancy 11/30/2016 Genitourinary/Nephrology No urinary incontinence 11/30/2016 Genitourinary/Nephrology No urinary frequency 11/30/2016 Genitourinary/Nephrology No urinary urgenc y 11/30/2016 Musculoskeletal stiffness 11/30/2016 Musculoskeletal swelling 11/30/2016 Musculoskeletal arthralgia(s) 11/30/2016 Musculoskeletal back pain 11/30/2016 Musculoskeletal bone pain 11/30/2016 Musculoskeletal joint complaint 11/30/2016 Dermatologic No rash Dermatologic No sores Neurologic No alteration of consciousness 11/30/2016 Neurologic No dizziness 11/30/2016 Neurologic No headache 0 11/30/2016 Neurologic No memory loss 11/30/2016 Neurologic No mental status change 11/30/2016 Psychiatric No anxiety 0 11/30/2016 Psychiatric No depression 11/30/2016 Endocrine No polydipsia 11/30/2016 Endocrine No polyuria Endocrine No sweating Endocrine No weakness Hematologic/Lymphatic No abnormal ec chymoses 11/30/2016 Hematologic/Lymphatic No abnormal bl eeding and bruising 11/30/2016 Constitutional weight gain 11/30/2016 Constitutional No recent illness 11/28/2016 Constitutional No chills 11/28/2016 Constitutional No fatigue 11/28/2016 Constitutional No fever 11/28/2016 Eyes No eye discharge Eyes No eye erythema Eyes No vision change Ears/Nose/Throat/Neck No headache 11/28/2016 Ears/Nose/Throat/Neck No nasal allergies 11/28/2016 Ears/Nose/Throat/Neck No nasal discharge 11/28/2016 Cardiovascular No chest pain/pressure 11/28/2016 Cardiovascular No dyspnea 11/28/2016 Cardiovascular No edema 11/28/2016 Respiratory No chest congestion 11/28/2016 Respiratory No cough Gastrointestinal No abdominal pain 11/28/2016 Gastrointestinal No constipation 11/28/2016 Gastrointestinal No diarrhea 11/28/2016 Gastrointestinal No nausea 11/28/2016 Gastrointestinal No vomiting 11/28/2016 Musculoskeletal stiffness 11/28/2016 Musculoskeletal arthralgia(s) 11/28/2016 Dermatologic No rash Dermatologic No scar Neurologic No alteration of consciousness 11/28/2016 Psychiatric No anxiety 0 11/28/2016 Psychiatric No depression 11/28/2016 Constitutional No recent illness 05/04/2016 Constitutional No chills 05/04/2016 Constitutional No fatigue 05/04/2016 Constitutional No fever 05/04/2016 Eyes No eye discharge Eyes No eye erythema Eyes No vision change Ears/Nose/Throat/Neck No headache 05/04/2016 Ears/Nose/Throat/Neck No nasal allergies 05/04/2016 Ears/Nose/Throat/Neck No nasal discharge 05/04/2016 Cardiovascular No chest pain/pressure 05/04/2016 Cardiovascular No dyspnea 05/04/2016 Cardiovascular No edema 05/04/2016 Respiratory No chest congestion 05/04/2016 Respiratory No cough Gastrointestinal No abdominal pain 05/04/2016 Gastrointestinal No constipation 05/04/2016 Gastrointestinal No diarrhea 05/04/2016 Gastrointestinal No nausea 05/04/2016 Gastrointestinal No vomiting 05/04/2016 Musculoskeletal stiffness 05/04/2016 Musculoskeletal arthralgia(s) 05/04/2016 Dermatologic No rash Dermatologic No scar Neurologic No alteration of consciousness 05/04/2016 Psychiatric No anxiety 0 05/04/2016 Psychiatric No depression 05/04/2016 Constitutional No recent illness 11/04/2015 Constitutional No chills 11/04/2015 Constitutional No fatigue 11/04/2015 Constitutional No fever 11/04/2015 Eyes No vision change Ears/Nose/Throat/Neck No headache 11/04/2015 Cardiovascular No chest pain/pressure 11/04/2015 Respiratory No chest congestion 11/04/2015 Respiratory No cough Gastrointestinal No abdominal pain 11/04/2015 Gastrointestinal No constipation 11/04/2015 Gastrointestinal No diarrhea 11/04/2015 Gastrointestinal No nausea 11/04/2015 Gastrointestinal No vomiting 11/04/2015 Musculoskeletal stiffness 11/04/2015 Musculoskeletal arthralgia(s) 11/04/2015 Dermatologic No rash Dermatologic No scar Neurologic No alteration of consciousness 11/04/2015 Psychiatric No anxiety 0 11/04/2015 Psychiatric No depression 11/04/2015 Eyes No eye discharge Eyes No eye erythema Ears/Nose/Throat/Neck No nasal discharge 11/04/2015 Ears/Nose/Throat/Neck No nasal allergies 11/04/2015 Cardiovascular No dyspnea 11/04/2015 Cardiovascular No edema 11/04/2015 Constitutional No recent illness 07/30/2015 Constitutional No chills 07/30/2015 Constitutional No fatigue 07/30/2015 Constitutional No fever 07/30/2015 Eyes No blindness 2014 Eyes No vision change Ears/Nose/Throat/Neck No dizziness 07/30/2015 Ears/Nose/Throat/Neck No headache 07/30/2015 Cardiovascular No chest pain/pressure 07/30/2015 Cardiovascular No near-syncope/dizziness 07/30/2015 Cardiovascular No palpitations 07/30/2015 Respiratory No chest congestion 07/30/2015 Respiratory No cough Gastrointestinal No abdominal pain 07/30/2015 Gastrointestinal No constipation 07/30/2015 Gastrointestinal No diarrhea 07/30/2015 Gastrointestinal No nausea 07/30/2015 Gastrointestinal No vomiting 07/30/2015 Musculoskeletal stiffness 07/30/2015 Musculoskeletal arthralgia(s) 07/30/2015 Dermatologic No rash Dermatologic No scar Neurologic No alteration of consciousness 07/30/2015 Psychiatric No anxiety 1 09/29/2014 Psychiatric No depression 07/30/2015 Constitutional No chills 01/26/2015 Constitutional No fatigue 01/26/2015 Constitutional No fever 01/26/2015 Constitutional No recent illness 01/26/2015 Ears/Nose/Throat/Neck No dizziness 01/26/2015 Ears/Nose/Throat/Neck No headache 01/26/2015 Cardiovascular No chest pain/pressure 01/26/2015 Cardiovascular No near-syncope/dizziness 01/26/2015 Cardiovascular No palpitations 01/26/2015 Respiratory No chest congestion 01/26/2015 Respiratory No cough 08/2015 Gastrointestinal No abdominal pain 01/26/2015 Gastrointestinal No constipation 01/26/2015 Gastrointestinal No diarrhea 01/26/2015 Gastrointestinal No nausea 01/26/2015 Gastrointestinal No vomiting 01/26/2015 Genitourinary/Nephrology No dysuria 01/26/2015 Neurologic No alteration of consciousness 01/26/2015 Psychiatric No anxiety 0 01/26/2015 Psychiatric No depression 01/26/2015 Dermatologic No rash 08/2015 Dermatologic No scar 08/2015 Musculoskeletal arthralgia(s) 01/26/2015 Musculoskeletal stiffness 01/26/2015 Eyes No blindness 2014 Eyes No vision change Endocrine weakness 01/26 Hematologic/Lymphatic No abnormal ec chymoses 01/26/2015 Hematologic/Lymphatic No abnormal bl eeding and bruising 01/26/2015 Physical Exam Exam Name System Name It em Name Status Result Effective Dates Notes Full [...] General 1995 Cardiovascular extremities Edema present: pitting 10/18/2018 None [...] 10/14/2018 None Full Exam - General 1995 Musculoskeletal [...] Abdomen abdominal exam Upper quadrant: non-tender to palpat ion 02/25/2018 None Full Exam - General 1994 Abdomen abdominal exam Upper quadrant: no guarding 02/25/2018 None Full Exam - General 1994 Abdomen abdominal exam Upper quadrant: no rebound tendernes s 02/25/2018 None Full Exam - General 1994 Abdomen abdominal exam Lower quadrant: non-tender to palpat ion 02/25/2018 None Full Exam - General 1994 Abdomen abdominal exam Lower quadrant: no guarding 02/25/2018 None Full Exam - General 1994 Abdomen abdominal exam Lower quadrant: no rebound tendernes s 02/25/2018 None Full Exam - General 1994 [...] Abdomen abdominal exam Upper quadrant: non-tender to palpat ion 02/20/2018 None Full Exam - General 1994 Abdomen abdominal exam Upper quadrant: no guarding 02/20/2018 None Full Exam - General 1994 Abdomen abdominal exam Upper quadrant: no rebound tendernes s 02/20/2018 None Full Exam - General 1994 Abdomen abdominal exam Lower quadrant: non-tender to palpat ion 02/20/2018 None Full Exam - General 1994 Abdomen abdominal exam Lower quadrant: no guarding 02/20/2018 None Full Exam - General 1994 Abdomen abdominal exam Lower quadrant: no rebound tendernes s 02/20/2018 None Full Exam - General 1994 [...] None Procedures Procedure Codes Date URINALYSIS NONAUTO W /O SCOPE CPT-4: 85609 03/12/2019 ADMIN PNEUMOCOCCAL V ACCINE SNOMED CT: 60092306 CPT-4: G0009 02/05/2018 Pneumococcal Polysac charide Vaccine, 23-Valent, Ad CPT-4: 61334 02/05/2018 PPPS, SUBSEQ VISIT CPT- 4: G0439 11/30/2017 URINALYSIS NONAUTO W /O SCOPE CPT-4: 54247 03/22/2017 URINALYSIS NONAUTO W /O SCOPE CPT-4: 72173 03/21/2017 PPPS, SUBSEQ VISIT CPT- 4: G0439 11/30/2016 PNEUMOCOCCAL VACC 13 JAVIER IM Formatting Model/CDA Sections, Assigned to SNOMED CT: 84299492 CPT-4: 42606Kjqelkh 11/30/2016 ADMIN PNEUMOCOCCAL V ACCINE SNOMED CT: 15494604 CPT-4: G0009 11/30/2016 Vital Signs Date Vital 03/12/2019 Blood Pressure 1: 140/52 Code: 8480-6 Heart Rate 1: 60 bpm Height: 5'10" SpO2: 96% Weight: 02/25/2019 Blood Pressure 1: 110/58 Code: 8480-6 BMI: 38.3 Code: 40921-6 Heart Rate 1: 47 bpm Height: 5'10" SpO2: 97% Weight: 267 lbs 10/18/2018 Blood Pressure 1: 118/70 Code: 8480-6 BMI: 39.0 Code: 81423-3 Heart Rate 1: 86 bpm Height: 5'10" SpO2: 95% Weight: 272 lbs 10/14/2018 Blood Pressure 1: 120/56 Code: 8480-6 Heart Rate 1: 67 bpm Height: 5'10" SpO2: 92% 10/10/2018 Blood Pressure 1: 126/70 Code: 8480-6 BMI: 34.7 Code: 41400-3 Heart Rate 1: 80 bpm Height: 5'10" SpO2: 96% Temperature: 37.1 (C ) / 98.7 (F) Weight: 242 lbs 10/04/2018 Blood Pressure 1: 120/70 Code: 8480-6 Height: 5'10" SpO2: 96% 08/29/2018 Blood Pressure 1: 104/60 Code: 8480-6 BMI: 34.6 Code: 40782-0 Heart Rate 1: 68 bpm Height: 5'10" SpO2: 98% Weight: 241 lbs 02/25/2018 Blood Pressure 1: 120/70 Code: 8480-6 BMI: 37.0 Code: 19038-9 Heart Rate 1: 51 bpm Height: 5'10" SpO2: 97% Weight: 258 lbs 02/20/2018 Blood Pressure 1: 124/70 Code: 8480-6 BMI: 38.0 Code: 98131-5 Heart Rate 1: 60 bpm Height: 5'10" SpO2: 96% Weight: 265 lbs 02/05/2018 Blood Pressure 1: 116/66 Code: 8480-6 BMI: 38.0 Code: 32835-9 Heart Rate 1: 63 bpm Height: 5'10" SpO2: 98% Weight: 265 lbs 11/30/2017 Blood Pressure 1: 132/60 Code: 8480-6 BMI: 37.0 Code: 10253-8 Heart Rate 1: 100 bpm Height: 5'10" SpO2: 96% Waist Measure (cm): 122 cm Weight: 258 lbs 11/08/2017 Blood Pressure 1: 126/64 Code: 8480-6 BMI: 37.2 Code: 19397-7 Heart Rate 1: 92 bpm Height: 5'10" SpO2: 94% Weight: 259 lbs 09/20/2017 Blood Pressure 1: 122/68 Code: 8480-6 BMI: 36.9 Code: 47713-7 Heart Rate 1: 57 bpm Height: 5'10" SpO2: 96% Weight: 257 lbs 06/25/2017 Blood Pressure 1: 124/68 Code: 8480-6 BMI: 37.0 Code: 36877-7 Height: 5'10" Weight: 258 lbs 06/07/2017 Blood Pressure 1: 122/64 Code: 8480-6 BMI: 37.0 Code: 67306-3 Heart Rate 1: 60 bpm Height: 5'10" SpO2: 94% Temperature: 36.4 (C ) / 97.6 (F) Weight: 258 lbs 05/03/2017 Blood Pressure 1: 118/74 Code: 8480-6 BMI: 38.2 Code: 78045-2 Heart Rate 1: 52 bpm Height: 5'10" SpO2: 98% Weight: 266 lbs 04/02/2017 Blood Pressure 1: 118/62 Code: 8480-6 BMI: 38.2 Code: 65961-7 Heart Rate 1: 53 bpm Height: 5'10" SpO2: 93% Weight: 266 lbs 03/26/2017 Blood Pressure 1: 114/62 Code: 8480-6 BMI: 38.3 Code: 91466-8 Height: 5'10" Weight: 267 lbs 03/22/2017 Blood Pressure 1: 122/64 Code: 8480-6 BMI: 40.0 Code: 93226-6 Heart Rate 1: 52 bpm Height: 5'10" SpO2: 94% Weight: 279 lbs 03/08/2017 Blood Pressure 1: 124/70 Code: 8480-6 BMI: 39.4 Code: 86268-0 Heart Rate 1: 51 bpm Height: 5'10" SpO2: 94% Weight: 274 lbs 8 oz 12/06/2016 Blood Pressure 1: 126/62 Code: 8480-6 BMI: 40.3 Code: 33893-3 Heart Rate 1: 50 bpm Height: 5'10" SpO2: 94% Weight: 281 lbs 11/30/2016 Blood Pressure 1: 112/62 Code: 8480-6 BMI: 40.3 Code: 87678-4 Heart Rate 1: 52 bpm Height: 5'10" SpO2: 93% Waist Measure (cm): 135 cm Weight: 281 lbs 11/28/2016 Blood Pressure 1: 132/72 Code: 8480-6 BMI: 40.3 Code: 88464-4 Heart Rate 1: 50 bpm Height: 5'10" Weight: 281 lbs 05/04/2016 Blood Pressure 1: 128/78 Code: 8480-6 BMI: 38.5 Code: 54057-2 Heart Rate 1: 74 bpm Height: 5'10" SpO2: 98% Weight: 268 lbs 8 oz 11/04/2015 Blood Pressure 1: 136/60 Code: 8480-6 BMI: 38.0 Code: 86561-1 Heart Rate 1: 55 bpm Height: 5'10" SpO2: 94% Weight: 265 lbs 07/30/2015 Blood Pressure 1: 128/74 Code: 8480-6 BMI: 38.0 Code: 59455-1 Heart Rate 1: 47 bpm Height: 5'10" SpO2: 97% Weight: 265 lbs 01/26/2015 Blood Pressure 1: 122/64 Code: 8480-6 BMI: 34.0 Code: 29028-8 Heart Rate 1: 68 bpm Height: 5'10" Weight: 237 lbs Functional Status No Functional Status data History of Present Illness Symptom Name Status Resu lt Effective Date Notes Quality burning 03/12/2019 None Quality constant 03/12/2019 None Onset and Resolution s udden in onset 03/12/2019 None Onset of Symptom 4 day s ago 03/12/2019 None Pertinent Findings donna dder pain 03/12/2019 None Pertinent Findings uri nary urgency 03/12/2019 None Quality chronic 02/25/2019 None Quality primary hypert ension 02/25/2019 None Onset and Resolution o ngoing 02/25/2019 None Onset of Symptom durin g adulthood 02/25/2019 None Alleviating Factors me dication 02/25/2019 None Location on the left 10/18/2018 None Location on the right 10/18/2018 None Quality constant 10/18/2018 None Onset and Resolution s udden in onset 10/18/2018 None Location on the left 10/14/2018 None Location on the right 10/14/2018 None Quality constant 10/14/2018 None Onset and Resolution s udden in onset 10/14/2018 None Location on the left 10/10/2018 None Location on the right 10/10/2018 None Quality constant 10/10/2018 None Onset and Resolution s udden in onset 10/10/2018 None Quality chronic 10/04/2018 None Limitation on Activities allows weight bearing activity 10/04/2018 None Quality intermittent 10/04/2018 None Onset and Resolution g radual in onset 10/04/2018 None Pertinent Findings Den ies fever 10/04/2018 None Pertinent Findings inc reased work of breathing 10/04/2018 None Severity moderate 10/04/2018 None Significant Medical Conditions peripheral neuropathy 10/04/2018 None Significant Medical Conditions diabetes 10/04/2018 None Significant Medical Conditions coronary artery disease 10/04/2018 None Significant Medications neuropathy medications 10/04/2018 None Significant Medications antihypertensive medications 10/04/2018 None Significant Medications lipid lowering statin medications 10/04/2018 None Sports Participation n ot significant 10/04/2018 None Alleviating Factors ac tivity 10/04/2018 None Exacerbating Factors a ctivity 10/04/2018 None Pertinent Findings num bness 10/04/2018 None Pertinent Findings mi n with movement 10/04/2018 None Pertinent Findings ulc eration 10/04/2018 None Onset of Symptom durin g adulthood 10/04/2018 None Limitation on Activities does not limit activities 10/04/2018 None Significant Medical Conditions coronary artery disease 10/04/2018 None Triggers activity 10/04/2018 None Quality non-insulin de pendent 08/29/2018 None Alleviating Factors me dication 08/29/2018 None Exacerbating Factors d iet 08/29/2018 None Nutrition regular diet 08/29/2018 None Pertinent Findings Den ies dizziness 08/29/2018 None Pertinent Findings Den ies dyspnea 08/29/2018 None Pertinent Findings Den ies numbness 08/29/2018 None Onset of Symptom onset as an adult 08/29/2018 None Quality primary hypert ension 08/29/2018 None Quality stable 08/29/2018 None Onset and Resolution o ngoing 08/29/2018 None Onset of Symptom durin g adulthood 08/29/2018 None Blood Pressure Values not checking blood pressure at home 08/29/2018 None Alleviating Factors me dication 08/29/2018 None Pertinent Findings edema 08/29/2018 -wears compression socks Test results Pt checki ng blood glucose readings, did not bring results to clinic 08/29/2018 None Glucose monitoring fas ting 08/29/2018 -116 this morning Quality chronic 08/29/2018 None Quality chronic 08/29/2018 None abdominal pain Location in the epigastric area 02/25/2018 None abdominal pain Radiating the umbilicus 02/25/2018 None abdominal pain Quality a cute 02/25/2018 None abdominal pain Quality i ntermittent 02/25/2018 None abdominal pain Onset and Resolution [...] the umbilicus 02/20/2018 None abdominal pain Quality a cute 02/20/2018 None abdominal pain Quality i ntermittent 02/20/2018 None abdominal pain Onset and Resolution [...] Nutrition regular diet 02/05/2018 None hypertension Quality lila rakesh hypertension 02/05/2018 None hypertension Onset and Resolution [...] edema 02/05/2018 -wears compression socks hypertension Quality sta ble 02/05/2018 None Annual Medicare Wellness Exam Alcohol Use does not drink any alcohol 11/30/2017 None Annual Medicare Wellness Exam Aspirin Use yes 11/30/2017 None Annual Medicare Wellness Exam Blood Glucose (self reported) borderline high (100-125) 11/30/2017 None Annual Medicare Wellness Exam Blood Pressure (self reported) borderline (120/80 - 139/89) 018 None Annual Medicare Wellness Exam Choles terol (self reported) don't know 11/30/2017 No ne Annual Medicare Wellness Exam Depres lakeshia (last 6 months) almost never 11/30/2017 None Annual Medicare Wellness Exam Depres [place] or Hopelessness almost never 11/30/2017 None Annual Medicare Wellness Exam Descri be Your Health good 11/30/2017 None Annual Medicare Wellness Exam Exerci se Habits does not exercise 11/30/2017 None Annual Medicare Wellness Exam Handli ng Stress usually javon effectively 11/30/2017 None Annual Medicare Wellness Exam Hemagl obin A-1C (self reported) high (8 or higher) 11/30/2017 None Annual Medicare Wellness Exam Hours of Sleep 6 11/30/2017 None Annual Medicare Wellness Exam Intera ction with Friends yes 11/30/2017 None Annual Medicare Wellness Exam Intere sts & Pleasure almost all of the time 11/30/2017 None Annual Medicare Wellness Exam Life S atisfaction very satisfied 11/30/2017 None Annual Medicare Wellness Exam Motor Vehicle Safety always fastens seat belt: y 12/01/19 18 None Annual Medicare Wellness Exam Motor Vehicle [...] 2 11/30/2017 None Annual Medicare Wellness Exam Smokin g and Tobacco Use chews tobacco 11/30/2017 None [...] Findings warmth 09/20/2017 None cellulitis Location on t he left leg 09/20/2017 None cellulitis Quality acute [...] Findings warmth 06/25/2017 None cellulitis Location on t he left leg 06/25/2017 None cellulitis Quality acute [...] Findings warmth 06/07/2017 None cellulitis Location on t he left leg 06/07/2017 None cellulitis Quality acute [...] Findings warmth 05/03/2017 None cellulitis Location on t he left leg 05/03/2017 None cellulitis Onset and [...] Findings warmth 04/02/2017 None cellulitis Location on t he left leg 04/02/2017 None cellulitis Quality acute [...] Findings warmth 03/26/2017 None cellulitis Location on t he left leg 03/26/2017 None cellulitis Quality acute 03/22/2017 None cellulitis Onset and Resolution sudden in onset 03/22/2017 None cellulitis Onset of Symptom 2 weeks ago 03/22/2017 None cellulitis Pertinent Findings blisters 03/22/2017 None cellulitis Pertinent Findings drainage 03/22/2017 None cellulitis Pertinent Findings Denies fever 03/22/2017 None cellulitis Pertinent Findings pain 03/22/2017 None cellulitis Pertinent Findings warmth 03/22/2017 None cellulitis Location on t he left leg 03/22/2017 None cellulitis Limitation on [...] Blood Glucose (self reported) don't know 11/30/2016 No ne Annual Medicare Wellness Exam Hemagl obin A-1C (self reported) don't know 11/30/2016 No ne Annual Medicare Wellness Exam Blood Pressure (self reported) don't know 11/30/2016 No ne Annual Medicare Wellness Exam Choles terol (self reported) don't know 11/30/2016 No ne Annual Medicare Wellness Exam Depres lakeshia (last 6 months) almost never 11/30/2016 None Annual Medicare Wellness Exam Depres lakeshia or Hopelessness almost never 11/30/2016 None Annual Medicare Wellness Exam Handli ng Stress usually javon effectively 11/30/2016 None Annual Medicare Wellness Exam Intera ction with Friends yes 11/30/2016 None Annual Medicare Wellness Exam Life S atisfaction satisfied 11/30/2016 Non e Annual Medicare Wellness Exam Smokin g and Tobacco Use chews tobacco 11/30/2016 None Annual Medicare Wellness Exam Descri be Your Health good 11/30/2016 None Annual Medicare Wellness Exam Exerci se Habits does not exercise 11/30/2016 None Annual Medicare Wellness Exam Hours of Sleep 5 11/30/2016 None Annual Medicare Wellness Exam Intere sts & Pleasure almost all of the time 11/30/2016 None Annual Medicare Wellness Exam Motor Vehicle Safety always fastens seat belt: yes 2016 None Annual Medicare Wellness Exam Nutrition [...] pain 07/30/2015 None knee pain Location on th e left 01/26/2015 None knee pain Location on th e right 01/26/2015 None knee pain Limitation on Activities allows weight bearing activity 01/26/2015 None knee pain Pertinent Findings Denies decreased range of motion 01/26/2015 None knee pain Pertinent Findings Denies limping 01/26/2015 None knee pain Pertinent Findings pain with movement 01/26/2015 None knee pain Pertinent Findings stiffness 01/26/2015 None hypothyroid Quality impr oving 01/26/2015 None hypothyroid Onset of Symptom _ years ago 01/26/2015 None hypertension Quality sta ble 01/26/2015 None hypertension Blood Pressure Values not checking blood pressure at home 01/26/2015 None hypertension Quality chr onic 01/26/2015 None hypertension Onset and Resolution ongoing 01/26/2015 None hypertension Onset of Symptom during adulthood 01/26/2015 None hypertension Triggers no known associated factors 01/26/2015 None hypertension Alleviating Factors medication 01/26/2015 None hypertension Exacerbating Factors stress 01/26/2015 None hypertension Exacerbating Factors change in dietary habits 01/26/2015 None Advance Directives No Advance Directive data Encounters Encounter Performer Loca tion Codes Date [id number] EST. PATIENT, LEVEL III Diagnosis: Dysuria[ICD10: R30.0] Diagnosis: Type 2 diabetes mellitus with hyperglycemia[ICD10: E11.65] Kiki Sanchez MD, [facility] CPT-4: 17371 03/12/2019 ([id number]) 04492 EST. P ATIENT, LEVEL IV Diagnosis: Essential (primary) hypertension[ICD10: I10] Diagnosis: Type 2 diabetes mellitus with hyperglycemia[ICD10: E11.65] Diagnosis: Chronic pain syndrome[ICD10: G89.4] Diagnosis: Chronic kidney disease, stage 3 (moderate)[ICD10: N18.3] Sarah Sanchez MD, [facility] CPT-4: 91091 02/25/2019 [id number] EST. PATIENT, LEVEL III Diagnosis: Localized edema[ICD10: R60.0] Diagnosis: Cellulitis of left lower limb[ICD10: L03.116] Diagnosis: Cellulitis of right lower limb[ICD10: L03.115] Kiki Sanchez MD, [facility] CPT-4: 40372 10/18/2018 17058 EST. PATIENT, LEVEL III Diagnosis: Localized edema[ICD10: R60.0] Diagnosis: Cellulitis of left lower limb[ICD10: L03.116] Diagnosis: Cellulitis of right lower limb[ICD10: L03.115] Diagnosis: Chronic obstructive pulmonary disease, unspecified[ICD10: J44.9] Diagnosis: Weakness[ICD10: R53.1] Kiki Sanchez MD, [facility] CPT-4: 53236 10/14/2018 08916 EST. PATIENT, LEVEL III Diagnosis: Localized edema[ICD10: R60.0] Diagnosis: Cellulitis of left lower limb[ICD10: L03.116] Diagnosis: Cellulitis of right lower limb[ICD10: L03.115] Kiki Sanchez MD, [facility] CPT-4: 08991 10/10/2018 ([id number]) 27613 EST. P ATIENT, LEVEL IV Diagnosis: Type 2 diabetes mellitus with foot ulcer[ICD10: E11.621] Diagnosis: Essential (primary) hypertension[ICD10: I10] Diagnosis: Malignant neoplasm of prostate[ICD10: C61] Diagnosis: Chronic obstructive pulmonary disease, unspecified[ICD10: J44.9] Diagnosis: Hypoxemia[ICD10: R09.02] Sarah Sanchez MD, [facility] CPT- 4: 88458 10/04/2018 ([id number]) 14105 EST. P ATIENT, LEVEL IV Diagnosis: Type 2 diabetes mellitus with hyperglycemia[ICD10: E11.65] Diagnosis: Essential (primary) hypertension[ICD10: I10] Diagnosis: Malignant neoplasm of prostate[ICD10: C61] Sarah Sanchez MD, [facility] CPT-4: 03045 08/29/2018 ([id number]) 83847 EST. P ATIENT, LEVEL IV Diagnosis: Malignant neoplasm of prostate[ICD10: C61] Dorene Sanchez MD, [facility] CPT-4: 80093 02/25/2018 24441 EST. PATIENT, LEVEL IV Diagnosis: Generalized abdominal pain[ICD10: R10.84] Diagnosis: Unspecified jaundice[ICD10: R17] Diagnosis: Gross hematuria[ICD10: R31.0] Kiki Sanchez MD, [facility] CPT-4: 89607 02/20/2018 ([id number]) 30726 EST. P ATIENT, LEVEL IV Diagnosis: Type 2 diabetes mellitus with hyperglycemia[ICD10: E11.65] Diagnosis: Essential (primary) hypertension[ICD10: I10] Diagnosis: Chronic kidney disease, stage 3 (moderate)[ICD10: N18.3] Diagnosis: Chronic pain syndrome[ICD10: G89.4] Diagnosis: Other specified hypothyroidism[ICD10: E03.8] Diagnosis: Encounter for screening for malignant neoplasm of prostate[ICD10: Z12.5] Diagnosis: Encounter for immunization[ICD10: Z23] Sarah Sanchez MD, [facility] CPT-4: 46289 02/05/2018 ([id number]) 45483 EST. P ATIENT, LEVEL IV Diagnosis: Type 2 diabetes mellitus with hyperglycemia[ICD10: E11.65] Diagnosis: Essential (primary) hypertension[ICD10: I10] Dorene Sanchez MD, [facility] CPT-4: 70047 11/08/2017 ([id number]) 34832 EST. P ATIENT, LEVEL IV Diagnosis: Type 2 diabetes mellitus with hyperglycemia[ICD10: E11.65] Diagnosis: Chronic pain syndrome[ICD10: G89.4] Diagnosis: Essential (primary) hypertension[ICD10: I10] Diagnosis: Chronic kidney disease, stage 3 (moderate)[ICD10: N18.3] Diagnosis: Localized edema[ICD10: R60.0] Dorene Sanchez MD, [facility] CPT-4: 42462 09/20/2017 ([id number]) 74958 EST. P ATIENT, LEVEL III Diagnosis: Type 2 diabetes mellitus with hyperglycemia[ICD10: E11.65] Sarah Sanchez MD, [facility] CPT-4: 11242 06/25/2017 ([id number]) 56478 EST. P ATIENT, LEVEL III Diagnosis: Cellulitis of left lower limb[ICD10: L03.116] Sarah Sanchez MD, [facility] CPT-4: 60184 06/07/2017 ([id number]) 92473 EST. P ATIENT, LEVEL III Diagnosis: Localized edema[ICD10: R60.0] Diagnosis: Type 2 diabetes mellitus with foot ulcer[ICD10: E11.621] Sarah Sanchez MD, [facility] CPT-4: 67670 05/03/2017 ([id number]) 93086 EST. P ATIENT, LEVEL III Diagnosis: Cellulitis of left lower limb[ICD10: L03.116] Diagnosis: Localized edema[ICD10: R60.0] Sarah Sanchez MD, [facility] CPT- 4: 68928 04/02/2017 ([id number]) Miscellaneou s no charge Diagnosis: Localized edema[ICD10: R60.0] Diagnosis: Cellulitis of left lower limb[ICD10: L03.116] Sarah Sanchez MD, [facility] CPT-4: 71261 03/26/2017 ([id number]) 58169 EST. 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 P ATIENT, LEVEL IV Diagnosis: Type 2 diabetes mellitus with hyperglycemia[ICD10: E11.65] Diagnosis: Other specified hypothyroidism[ICD10: E03.8] Diagnosis: Essential (primary) hypertension[ICD10: I10] Sarah Sanchez MD, [facility] CPT-4: 64793 03/08/2017 ([id number]) 24828 EST. P ATIENT, LEVEL III Diagnosis: Type 2 diabetes mellitus with hyperglycemia[ICD10: E11.65] Diagnosis: Other specified hypothyroidism[ICD10: E03.8] Sarah Sanchez MD, [facility] CPT-4: 69298 12/06/2016 ([id number]) 50148 EST. P ATIENT, LEVEL IV Diagnosis: Essential (primary) hypertension[ICD10: I10] Diagnosis: Chronic kidney disease, stage 3 (moderate)[ICD10: N18.3] Dorene Sanchez MD, [facility] CPT-4: 29933 11/28/2016 ([id number]) 83449 EST. P ATIENT, LEVEL IV Diagnosis: Essential (primary) hypertension[ICD10: I10] Diagnosis: Chronic pain syndrome[ICD10: G89.4] Diagnosis: Chronic kidney disease, stage 3 (moderate)[ICD10: N18.3] Diagnosis: Vitamin B12 deficiency anemia due to intrinsic factor deficiency[ICD10: D51.0] Diagnosis: Other specified hypothyroidism[ICD10: E03.8] Dorene Sanchez MD, [facility] CPT-4: 54417 05/04/2016 56958 EST. PATIENT, LEVEL III Diagnosis: Chronic pain syndrome[ICD10: G89.4] Diagnosis: Essential (primary) hypertension[ICD10: I10] Diagnosis: Other specified hypothyroidism[ICD10: E03.8] [facility] CPT-4: 34133 11/04/2015 99430 EST. PATIENT, LEVEL III Diagnosis: Chronic pain syndrome[ICD10: G89.4] Diagnosis: Essential (primary) hypertension[ICD10: I10] [facility] CPT-4: 90059 07/30/2015 ([id number]) OFFICE/OUTPA TIENT VISIT NEW Diagnosis: ESSENTIAL HYPERTENSION[ICD9: 401.9] Diagnosis: HYPOTHYROIDISM[ICD9: 244.9] Diagnosis: ANEMIA[ICD9: 285.9] Diagnosis: Vitamin B12 deficiency[ICD9: 266.2] Diagnosis: CHRONIC PAIN SYNDROME[ICD9: 338.4] Diagnosis: Chronic renal insufficiency, stage III (moderate)[ICD9: 585.3] Diagnosis: GOUT[ICD9: 274.9] [facility] CPT-4: 99690 01/26/2015 Plan of Care Planned Activity Notes C odes Status Date Visit Plan: UTI - pt [...] glucose control. 03/12/2019 Appointment: Kiki Menjivar WPtel: [address] [place], [place] [id number] (15 min) Moderate 03/12/2019 Appointment: Nurse Visit 03/12/2019 Patient Education: Patient Medication Summary Completed 03/12/2019 Care Plan: Urine Culture Pending 03/12/2019 Visit Plan: Hypertension - well con trolled - continue with current medications, continue with [...] over-medication. 02/25/2019 Appointment: Sarah Hernandes WPtel: [address] [facility] (15 min) Moderate 02/25/2019 Patient Education: Patient Medication Summary Completed 02/25/2019 Visit Plan: Edema - pt has been adv ised to elevate legs to prevent dependent edema, compression has been recommended to help to naturally decrease peripheral edema. Diuretic use has been discussed and pt has been i nstructed in appropriate use of such medication as necessary to further attempt to reduce peripheral edema. Cellulitis - continue with oral antibiotics as previously directed, return to clinic as previously directed, call for acute change in symptoms, worsening redness, warmth, discharge. 10/18/2018 Appointment: Kiki Menjivar WPtel: [address] [facility] [place] (30 min) Complex 10/18/2018 Patient Education: Patient Medication Summary Completed 10/18/2018 Patient Education: Obesity Completed 10/18/2018 Visit Plan: Edema - pt has been adv ised to elevate legs to prevent dependent edema, compression has been recommended to help to naturally decrease peripheral edema. Diuretic use has been discussed and pt has been i nstructed in appropriate use of such medication as [...] Visit Plan: Edema - pt has been adv ised to elevate legs to prevent dependent edema, compression has been recommended to help to naturally decrease peripheral edema. Diuretic use has been discussed and pt has been i nstructed in appropriate use of such medication as [...] Visit Plan: Edema - pt has been adv ised to elevate legs to prevent dependent edema, compression has been recommended to help to naturally decrease peripheral edema. Diuretic use has been discussed and pt has been i nstructed in appropriate use of such medication as [...] decrease edema. 10/14/2018 Appointment: Kiki Menjivar WPtel: [facility] [place] (30 min) Complex 10/14/2018 Patient Education: Patient Medication Summary Completed 10/14/2018 Visit Plan: Dr. Sanchez in to eval uate patient Edema - pt has been advised [...] warmth, discharge. 10/10/2018 Appointment: Kiki Menjivar WPtel: [address] [place], [place] [address] (30 min) Complex 10/10/2018 Patient Education: Patient Medication Summary Completed 10/10/2018 Visit Plan: DM with peripheral neur opathy-paperwork completed for diabetic shoes and will fax to Dr Bauer HTN-controlled -no changes Ezvuzkdxa-XRVM-JDE-prostate cancer with mets- patient qualifies for oxygen-oxy gen saturation dropped to 86% on room air during ambulation but increased to 99% on 2L NC at rest-will send orders to [facility] for continue oxygen at 2L per nasal cannula 10/04/2018 Appointment: Sarah Hernandes WPtel: [facility] [phone] (30 min) Complex 10/04/2018 Patient Education: Patient Medication Summary Completed 10/04/2018 Visit Plan: Hypertension - well con trolled - continue with current medications, continue with [...] Dr Moreno 08/29/2018 Appointment: Sarah Hernandes WPtel: [address] [place], [place] [phone] (15 min) Moderate 08/29/2018 Patient Education: Patient Medication Summary Completed 08/29/2018 Referral: Edgard Rivera MD WPtel: Via [address] with Dr. Moreno. Patient informed. Referra l info faxed. Completed 02/27/2018 Visit Plan: Recurrent prostate canc er - I have recommended a referral to Dr. Rivera. We discussed the case at length today- he is not interested in extensive treatment, but if possible to extend his quantity and quality of life, he would like to try. 02/25/2018 Appointment: [facility]orene [facility]el[phone] [facility] [place] (15 min) Moderate 02/25/2018 Patient Education: Patient Medication Summary Completed 02/25/2018 Care Plan: Referral Order SNOMED-CT : [id number] Pending 02/25/2018 Visit Plan: Intermittent abdominal pain, jaundice, itching - will check labs and treat as indicated - pt is to go to the ER with any acute change in symptoms or any acute concerns. 02/20/2018 Appointment: [facility]jivar [facility]Ptel[phone] [facility] (30 min) Complex 02/20/2018 Patient Education: Patient Medication Summary Completed 02/20/2018 Visit Plan: Hypertension - well con trolled - continue with current medications, continue with [...] control. 02/05/2018 Appointment: Sarah Hernandes WPtel[facility] [phone] [phone] [place] (30 min) Complex 02/05/2018 Patient Education: Patient Medication Summary Completed 02/05/2018 Visit Plan: Medicare Exam - today w e discussed the patients past history, immunizations, preventative [...] 11/30/2017 Appointment: Sarah Hernandes WPtel[facility] [phone] [phone] [place] [address] - Annual Wellness Visit 11/30/2017 Patient Education: Patient Medication Summary Completed 11/30/2017 Visit Plan: Hypertension - well con trolled - continue with current medications, continue with [...] 1.2 11/08/2017 Appointment: Dorene Sanchez [facility]Ptel: [phone] [facility] (15 min) Moderate 11/08/2017 Patient Education: Patient Medication Summary Completed 11/08/2017 Visit Plan: Diabetes Mellitus - con trolled - per recent FSBS reports. I have [...] the consequences of over-medication. 09/20/2017 Appointment: Dorene Sanchze [facility]Ptel: [phone] [facility] (15 min) Moderate 09/20/2017 Patient Education: Patient Medication Summary Completed 09/20/2017 Visit Plan: Diabetes Mellitus - Unc ontrolled - per recent FSBS reports. I have [...] control. 06/25/2017 Visit Plan: Diabetes Mellitus - Unc ontrolled - per recent FSBS reports. I have [...] control. 06/25/2017 Appointment: Sarah Hernandes [facility]Ptel[facility] [phone] [phone] [place] (30 min) Complex 06/25/2017 Patient Education: Patient Medication Summary Completed 06/25/2017 Appointment: Sarah Hernandes WPtel: [facility] [phone] (30 min) Complex 06/22/2017 Visit Plan: Cellulitis - start oral antibiotics as previously directed, return to clinic as previously directed, call for acute change in symptoms, worsening redness, warmth, discharge. 06/07/2017 Appointment: Sarah Hernandes WPtel: [facility] [phone] (30 min) Complex 06/07/2017 Patient Education: Patient Medication Summary Completed 06/07/2017 Patient Education: Obesity Completed 06/07/2017 Appointment: Dorene Sanchez WPtel: [facility] [place] (15 min) Moderate 05/31/2017 Visit Plan: Edema-significantly imp roved-no changes Ulcer- left lower leg and foot-seeing Dr Norwood at wound care-appt scheduled with Dr Frausto for vascular evaluation 05/03/2017 Appointment: Sarah Hernandes WPtel: [address] [place], [place] [phone] [place] (15 min) Moderate 05/03/2017 Patient Education: Patient Medication Summary Completed 05/03/2017 Patient Education: Obesity Completed 05/03/2017 Visit Plan: Rmvuqugpaz-xkrjuaqjf-dq tient to finish abx-no further treatment indicated Edema-significantly improved-no longer weeping- continue unna boots twice weekly with home health 04/02/2017 Appointment: Sarah Hernandes WPtel: [facility] [phone] (30 min) Complex 04/02/2017 Patient Education: Patient Medication Summary Completed 04/02/2017 Patient Education: Obesity Completed 04/02/2017 Visit Plan: Cellulitis-left leg-con tinue levaquin Edema- increase lasix/potassium-consult [facility] for unna boots/dressing changes 03/26/2017 Appointment: Sarah Hernandes WPtel: [address] [place], [place] [phone] [place] (15 min) Moderate 03/26/2017 Patient Education: Patient Medication Summary Completed 03/26/2017 Patient Education: Obesity Completed 03/26/2017 Visit Plan: Cellulitis-left lower l eg-recommended patient be admitted to the hospital but [...] indomethacin-stop aleve 03/22/2017 Visit Plan: Cellulitis-left lower l eg-recommended patient be admitted to the hospital but [...] aleve 03/22/2017 Appointment: Sarah Hernandes WPtel[phone] [phone] [place] (15 min) Moderate 03/22/2017 Patient Education: Patient Medication Summary Completed 03/22/2017 Appointment: Lab Draw 03/21/2017 Patient Education: Patient Medication Summary Completed 03/21/2017 Visit Plan: Hypertension - well con trolled - continue with current medications, continue with [...] control. 03/08/2017 Visit Plan: Hypertension - well con trolled - continue with current medications, continue with [...] of control. 03/08/2017 Appointment: Sarah Hernandes WPtel: [facility] [phone] (30 min) Complex 03/08/2017 Patient Education: Patient Medication Summary Completed 03/08/2017 Visit Plan: DM-new diagnosis-discus sed diabetes in detail today including diet and exercise-patient wants to try diet/exercise x 3 months before agreeing to medication-will plan for repeat labs in 3 months-sooner if needed 12/06/2016 Visit Plan: DM-new diagnosis-discus sed diabetes in detail today including diet and exercise-patient wants to try diet/exercise x 3 months before agreeing to medication-will plan for repeat labs in 3 months-sooner if needed 12/06/2016 Appointment: (30 min) Complex 12/06/2016 Patient Education: Patient Medication Summary Completed 12/06/2016 Patient Education: Obesity Completed 12/06/2016 Visit Plan: Medicare Exam - today w e discussed the patients past history, immunizations, preventative [...] 11/30/2016 Visit Plan: Medicare Exam - today w e discussed the patients past history, immunizations, preventative [...] 11/30/2016 Visit Plan: Medicare Exam - today w e discussed the patients past history, immunizations, preventative [...] WPtel: [facility] [phone] [facility] - Annual Wellness Visit 11/30/2016 Patient Education: Patient Medication Summary Completed 11/30/2016 Visit Plan: Hypertension - well con trolled - continue with current medications, continue with no added salt diet. Pt has been encouraged to exercise daily. The pt has been advised to call the office if there are any acute concerns about change in blood pressure readings at home. Renal failure - continue with increase in fluids. 11/28/2016 Appointment: Dorene Sanchez WPtel: [facility] [place] (15 min) Moderate 11/28/2016 Patient Education: Patient Medication Summary Completed 11/28/2016 Patient Education: Obesity Completed 11/28/2016 Visit Plan: Hypertension - well con trolled - continue with current medications, continue with [...] Completed 07/30/2015 Visit Plan: Hypertension - well con trolled - continue with current medications, continue with [...] 01/26/2015 Referral: Edgard Rivera MD WPtel: Via [facility] [address] [place] [id number] [place] Referral Appointment Requested Instructions Comment . Hypertension - wel l controlled - continue with current medications, continue [...] the consequences of over-medication. . Hypertension - wel l controlled - continue with current medications, continue [...] discuss further treatment options with Dr Josh quiñonez 0.6mg daily . Diabetes Mellitus - Uncontrolled [...] to allow for greater blood glucose control. take lasix 2 in the morning and [...] worsening redness, warmth, discharge. Monitor your blood p ressure at home and record. Bring in your [...] greater blood glucose control. . Hypertension - wel l controlled - continue with current medications, continue [...] previous levels of control. 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 Cellulitis-left leg-continue levaquin Edema-increase lasix/potassium-consult [facility] for unna boots/dressing changes . Recurrent [...] months-sooner if needed Take lasix 20mg a da y twice a day and potassium once a [...] worsening redness, warmth, discharge. . Hypertension - wel l controlled - continue with current medications, continue with no added salt diet. Pt has been encouraged to exercise daily. The pt has been advised to call the office if there are any acute concerns about change in blood pressure readings at home. Renal failure - continue with increase in fluids. . Medicare Exam - to day we discussed the patients past history, immunizations, [...] the consequences of over-medication. . Chronic Pain Syndr ome - pt has chronic pain - has been maintained on current medications, has not sought out other medications, only uses PRN pain medications as directed, and understands the consequences of over-medication. RETURN LATER THIS WE EK FOR FASTING LABS (NOTHING TO EAT OR DRINK 8-12 HOURS ) APPT IN 3 MONTHS -SOONER IF YOU NEED SOMETHING PNEUMOVAX 23 TODAY . Hypertension - well controlled - candis nue with current medications, continue with no added [...] previous levels of control. . Hypertension - wel l controlled - continue with current medications, continue [...] medication monitoring. . Edema - pt has bee n advised to elevate legs to prevent dependent [...] to weakness . Edema - pt has bee n advised to elevate legs to prevent dependent [...] to monitor . Edema - pt has bee n advised to elevate legs to prevent dependent [...] allow for greater blood glucose control. . Cellulitis-improvi ng-patient to finish abx-no further treatment indicated Edema-significantly improved-no longer weeping-continue unna boots twice weekly with home health Repeat labs at next appointment . Edema-significantly improved-no change s Ulcer-left lower leg and foot-seeing Dr Norwood at wound care-appt scheduled with Dr Frausto for vascular evaluation increase the victoza to 1.2 . Hypertension - well controlled - candis nue with current medications, continue with no added [...] the victoza to 1.2 . Chronic Pain Syndr ome - pt has chronic pain - has [...] previous levels of control. . Hypertension - wel l controlled - continue with current medications, continue [...] fax to Dr Bauer HTN-controlled -no changes Psjnjoytn-LYRG-SHK-prostate cancer with mets- patient qualifies for oxygen- oxygen saturation dropped to 86% on room air during ambulation but increased to 99% on 2L NC at rest-will send orders to [facility] for continue oxygen at 2L per nasal cannula . Intermittent abdom inal pain, jaundice, itching - will check labs and treat as indicated - pt is to go to the ER with any acute change in symptoms or any acute concerns.
--- OUTSIDE RECORDS SUMMARY | 2020-01-14 19:44 | XMS REPORT | CCD ---
Author Author Ayanna Sanchez Organization Dorene Sanchez MD, [facility] Address [address] [place] [address] Phone Care Team Providers Care Prep Cook Name Role Phone PP Unavailable CCM Unavailable Summary Purpose Interface Exchange Insurance Providers Payer name Policy type / Coverage type Covered green party ID Effective Begin Date Effective End Date WPS Medicare Part B Medicare Part B [id number] Unknown Unknown Family history Father Diagnosis Age At Onset Stroke Unknown Mother Diagnosis Age At Onset Stroke Unknown Diabetes mellitus Type 2 Unknown Social History Social History Element Codes Description Effective Dates Tobacco history SNOMED CT: 207025052 Currently uses smokeless tobacco Chews 05/04/2016 Marital status Unknown W idowed 01/26/2015 Number of children Unknown 3 01/26/2015 Employment Unknown Retir ed 01/26/[address]: 848801384 Never drinks alcohol quit in July 2014 [...] Date Stop Date Sta tus Fill Instructions gabapentin 100 mg ca psule RxNorm: 943811 TAKE ONE CAPSULE BY M OUTH TWICE A DAY 05/20/2019 10/16/2019 Ac tive oxycodone 10 mg tablet RxNorm: 1921467 1 Tablet(s) PO Q4 PRN 04/30/2019 No Stop Date Active Lasix 20 mg tablet RxNorm: 581216 TAKE ONE TABLET BY MOUTH TWICE A DAY 04/08/2019 10/04/2019 Ac tive oxycodone 10 mg tablet RxNorm: 2700053 1 Tablet(s) PO Q4 PRN 03/25/2019 04/29/2019 Inactive gabapentin 100 mg ca psule RxNorm: 577812 TAKE ONE CAPSULE BY M OUTH IN THE EVENING AT 5PM 03/21/2019 08/17/2019 Active levothyroxine 200 mc g tablet RxNorm: 825837 TAKE ONE TABLET BY MO UTH DAILY ON AN EMPTY STOMACH 03/13/2019 12/07/2019 Active bisoprolol 5 mg-hydr ochlorothiazide 6.25 mg tablet RxNorm: 815503 TAKE ONE TABLET BY MOUTH DAILY 03/13/2019 12/07/2019 Active Keflex 500 mg capsule RxNorm: 238627 1 Capsule(s) PO TID 03/12/2019 03/21/2019 Inactive potassium chloride E R 10 mEq tablet,extended release RxNorm: 479294 TAKE ONE TABLET BY MOUTH DAILY 03/10/2019 09/05/2019 Active oxycodone 10 mg tablet RxNorm: 5650523 1 Tablet(s) PO Q4 PRN 02/25/2019 03/24/2019 Inactive oxycodone 20 mg tablet RxNorm: 0590260 1/2 Tablet(s) PO Q6 as needed 01/21/2019 02/24/2019 In active oxycodone 20 mg tablet RxNorm: 6231606 1/2 Tablet(s) PO Q6 as needed 12/18/2018 01/16/2019 In active oxycodone 20 mg tablet RxNorm: 1850689 1/2 Tablet(s) PO Q6 as needed 11/12/2018 12/11/2018 In active gabapentin 100 mg ca psule RxNorm: 568209 1 Capsule(s) BID 11/05/2018 03/20/2019 Inactive potassium chloride E R 10 mEq tablet,extended release RxNorm: 591882 TAKE ONE TABLET BY MOUTH DAILY 11/04/2018 11/19/2018 Inactive Probiotic 10 billion cell capsule RxNorm: 3586228 1 Capsule(s) PO BID 10/25/2018 10/24/2018 In active Keflex 500 mg capsule RxNorm: 403789 1 Capsule(s) PO QID 10/25/2018 10/31/2018 Inactive Probiotic 10 billion cell capsule RxNorm: 7791536 1 Capsule(s) PO BID 10/25/2018 10/31/2018 In active oxycodone 20 mg tablet RxNorm: 9755842 1/2 Tablet(s) PO Q6 as needed 10/14/2018 11/11/2018 In active Keflex 500 mg capsule RxNorm: 451035 1 Capsule(s) PO TID 10/10/2018 10/19/2018 Inactive potassium chloride E R 10 mEq tablet,extended release RxNorm: 054689 1 Tablet(s) PO daily 10/10/2018 11/03/2018 Inactive Lasix 20 mg tablet RxNorm: 429658 1 Tablet(s) PO BID 10/10/2018 04/07/2019 Inactive albuterol sulfate 2. 5 mg/3 mL (0.083 %) solution for nebulization RxNorm: 519992 1 Milliliter(s) INH TID DX J44.9 01/31/2019 Inactive gabapentin 100 mg ca psule RxNorm: 469626 TAKE ONE CAPSULE BY M OUTH IN THE EVENING AT 5PM 09/24/2018 11/04/2018 Inactive oxycodone 20 mg tablet RxNorm: 7886799 1/2 Tablet(s) PO Q6 as needed 09/12/2018 10/11/2018 In active oxycodone 20 mg tablet RxNorm: 6428705 1/2 Tablet(s) PO Q6 as needed 08/15/2018 09/11/2018 In active oxycodone 20 mg tablet RxNorm: 2685177 1/2 Tablet(s) PO Q6 as needed 07/16/2018 08/14/2018 In active oxycodone 20 mg tablet RxNorm: 8294422 1/2 Tablet(s) PO Q6 as needed 06/14/2018 07/13/2018 In active gabapentin 100 mg ca psule RxNorm: 357132 TAKE ONE CAPSULE BY M OUTH IN THE EVENING AT 5PM 05/30/2018 09/23/2018 Inactive oxycodone 20 mg tablet RxNorm: 3233022 1/2 Tablet(s) PO Q6 as needed 05/15/2018 06/13/2018 In active oxycodone 20 mg tablet RxNorm: 0914816 1/2 Tablet(s) PO Q6 as needed 04/12/2018 05/11/2018 In active oxycodone 20 mg tablet RxNorm: 3357230 1/2 Tablet(s) PO Q6 as needed 03/11/2018 04/09/2018 In active Cipro 500 mg tablet RxNorm: 441136 1 Tablet(s) PO BID 02/21/2018 02/20/2018 Inactive levothyroxine 200 mc g tablet RxNorm: 025938 1 Tablet(s) PO daily 02/21/2018 02/20/2018 Inactive Cipro 500 mg tablet RxNorm: 017225 1 Tablet(s) PO BID 02/21/2018 03/02/2018 Inactive levothyroxine 200 mc g tablet RxNorm: 242466 1 Tablet(s) PO daily 02/21/2018 02/15/2019 Inactive oxycodone 20 mg tablet RxNorm: 9840170 1/2 Tablet(s) PO Q6 as needed 02/12/2018 03/10/2018 In active oxycodone 20 mg tablet RxNorm: 5854017 1/2 Tablet(s) PO Q6 as needed 01/16/2018 02/11/2018 In active gabapentin 100 mg ca psule RxNorm: 362726 TAKE ONE CAPSULE BY M OUTH IN THE EVENING AT 5PM 01/15/2018 05/29/2018 Inactive bisoprolol 5 mg-hydr ochlorothiazide 6.25 mg tablet RxNorm: 704447 TAKE ONE TABLET BY MOUTH DAILY 01/01/2018 12/26/2018 Inactive oxycodone 20 mg tablet RxNorm: 2639045 1/2 Tablet(s) PO Q6 as needed 12/20/2017 01/14/2018 In active oxycodone 20 mg tablet RxNorm: 0971526 1/2 Tablet(s) PO Q6 as needed 11/20/2017 12/19/2017 In active Victoza 2-Dino 0.6 mg /0.1 mL (18 mg/3 mL) subcutaneous pen injector RxNorm: 777936 1.2 Milligram(s) SQ daily 11/08/2017 12/07/2017 Inactive oxycodone 20 mg tablet RxNorm: 1238444 1/2 Tablet(s) PO Q6 as needed 10/19/2017 11/17/2017 In active gabapentin 100 mg ca psule RxNorm: 247167 1 Capsule(s) PO QPM at 5 pm 09/20/2017 01/14/2018 Inactive Lasix 20 mg tablet RxNorm: 836614 1 Tablet(s) QAM at 5pm 09/20/2017 03/18/2018 Inactive oxycodone 20 mg tablet RxNorm: 4942311 1/2 Tablet(s) PO Q6 as needed 09/18/2017 10/17/2017 In active oxycodone 20 mg tablet RxNorm: 2732775 1/2 Tablet(s) PO Q6 as needed 08/14/2017 09/12/2017 In active ketoconazole 2 % top ical cream RxNorm: 004350 1 Gram(s) TOP BID to affected area until healed 08/03/2017 No Stop Date Active oxycodone 20 mg tablet RxNorm: 6695606 1/2 Tablet(s) PO Q6 as needed 07/17/2017 08/13/2017 In active pen needle, diabetic 31 gauge x 5/16" RxNorm: 1 Unit Dose Miscellaneous d aily 06/25/2017 03/21/2018 In active daily use with victoza Bactrim DS 800 mg-16 0 mg tablet RxNorm: 788973 1 Tablet(s) PO BID Dr Norwood 06/25/2017 07/04/2017 In active Victoza 2-Dino 0.6 mg /0.1 mL (18 mg/3 mL) subcutaneous pen injector RxNorm: 434380 0.6 Milligram(s) SQ daily 06/25/2017 07/24/2017 Inactive doxycycline hyclate 100 mg tablet RxNorm: 440903 1 Tablet(s) PO BID Dr Norwood 06/21/2017 06/30/2017 In active oxycodone 20 mg tablet RxNorm: 8141933 1/2 Tablet(s) PO Q6 as needed 06/14/2017 07/13/2017 In active clindamycin 150 mg c apsule RxNorm: 237373 1 Capsule(s) PO Q8 06/07/2017 06/16/2017 Inactive levothyroxine 175 mc g tablet RxNorm: 629038 TAKE ONE TABLET BY [facility] DAILY 06/04/2017 09/01/2017 In active levothyroxine 175 mc g tablet RxNorm: 541795 TAKE ONE TABLET BY [facility] DAILY 06/04/2017 11/30/2017 In active bisoprolol 5 mg-hydr ochlorothiazide 6.25 mg tablet RxNorm: 670778 TAKE ONE TABLET BY MOUTH DAILY 05/24/2017 11/19/2017 Inactive oxycodone 20 mg tablet RxNorm: 0550797 1/2 Tablet(s) PO Q6 as needed 05/14/2017 06/12/2017 In active potassium chloride E R 10 mEq capsule,extended release RxNorm: 867581 TAKE ONE CAPSULE BY MOUTH DAILY NEEDED FOR 5 DAYS THEN NEEDED WITH LASIX 04/17/2017 10/13/2017 Inactive Lasix 20 mg tablet RxNorm: 218669 TAKE ONE TABLET BY MOUTH DAILY NEEDED 04/17/2017 09/19/2017 In active oxycodone 20 mg tablet RxNorm: 7697425 1/2 Tablet(s) PO Q6 as needed 04/12/2017 05/11/2017 In active Colcrys 0.6 mg tablet RxNorm: 058491 2 tabs at onset then may repeat 1 tab in 1 hours if needed- Tablet(s) PO 04/09/2017 No Stop Date Active then take daily until gout resolved Bactrim DS 800 mg-16 0 mg tablet RxNorm: 769709 1 Tablet(s) PO BID 04/09/2017 04/08/2017 Inactive dc levaquin Bactrim DS 800 mg-16 0 mg tablet RxNorm: 038352 1 Tablet(s) PO BID 04/09/2017 04/15/2017 Inactive dc levaquin Levaquin 500 mg tablet RxNorm: 857219 1 Tablet(s) PO daily 04/03/2017 04/02/2017 Inactive Levaquin 500 mg tablet RxNorm: 366628 1 Tablet(s) PO daily 04/03/2017 06/06/2017 Inactive indomethacin 25 mg c apsule RxNorm: 853604 1 Capsule(s) PO TID PRN 03/22/2017 03/22/2017 Inactive Lasix 20 mg tablet RxNorm: 307465 1 Tablet(s) PO QDAY PRN 03/22/2017 04/16/2017 Inactive daily x 5 days then as needed Levaquin 500 mg tablet RxNorm: 202960 1 Tablet(s) PO daily 03/22/2017 03/31/2017 Inactive potassium chloride E R 10 mEq capsule,extended release RxNorm: 533994 1 Capsule(s) PO QDAY PRN 03/22/2017 04/16/2017 Inactive daily x 5 days then as need ed with lasix oxycodone 20 mg tablet RxNorm: 0730763 1/2 Tablet(s) PO Q6 as needed 03/08/2017 04/06/2017 In active bisoprolol 5 mg-hydr ochlorothiazide 6.25 mg tablet RxNorm: 384581 TAKE ONE TABLET BY MOUTH DAILY 02/14/2017 05/14/2017 Inactive oxycodone 20 mg tablet RxNorm: 8703972 1/2 Tablet(s) PO Q6 as needed 02/08/2017 03/07/2017 In active oxycodone 20 mg tablet RxNorm: 9749093 1/2 Tablet(s) PO Q6 as needed 01/08/2017 02/06/2017 In active levothyroxine 175 mc g tablet RxNorm: 321834 1 Tablet(s) PO daily 12/06/2016 06/03/2017 Inactive [SAVINGS FOR NON-COVERED DRUGS -- BIN:00 4135, PCN: ASPROD1, Group: XXXXX, ID# [id number], Questions: . THIS IS NOT INSURANCE.] oxycodone 20 mg tablet RxNorm: 5844569 1/2 Tablet(s) PO Q6 as needed 12/04/2016 01/02/2017 In active oxycodone 20 mg tablet RxNorm: 3444614 1/2 Tablet(s) PO Q6 as needed 11/09/2016 12/03/2016 In active bisoprolol 5 mg-hydr ochlorothiazide 6.25 mg tablet RxNorm: 250479 TAKE ONE TABLET BY MOUTH DAILY 11/08/2016 02/05/2017 Inactive oxycodone 20 mg tablet RxNorm: 5785105 1/2 Tablet(s) PO Q6 as needed 10/05/2016 11/03/2016 In active oxycodone 20 mg tablet RxNorm: 1406252 1/2 Tablet(s) PO Q6 as needed 09/06/2016 10/04/2016 In active oxycodone 20 mg tablet RxNorm: 5644228 1/2 Tablet(s) PO Q6 as needed 08/07/2016 09/05/2016 In active oxycodone 20 mg tablet RxNorm: 5436282 1/2 Tablet(s) PO Q6 as needed 07/04/2016 08/06/2016 In active oxycodone 20 mg tablet RxNorm: 0141446 1/2 Tablet(s) PO Q6 as needed 05/29/2016 07/03/2016 In active levothyroxine 150 mc g tablet RxNorm: 574940 1 Tablet(s) PO daily 04/10/2016 04/09/2016 Inactive [SAVINGS FOR NON-COVERED DRUGS -- BIN:3584, PCN: ASPROD1, Group: XXXXX, ID# XXXXXXX, Questions: . THIS IS NOT INSURANCE.] oxycodone 20 mg tablet RxNorm: 4593315 1/2 Tablet(s) PO Q6 as needed 04/10/2016 05/28/2016 In active levothyroxine 150 mc g tablet RxNorm: 763025 1 Tablet(s) PO daily 04/10/2016 10/06/2016 Inactive [SAVINGS FOR NON-COVERED DRUGS -- BIN:5, PCN: ASPROD1, Group: XXXXX, ID# XXXXXXX, Questions: . THIS IS NOT INSURANCE.] bisoprolol 5 mg-hydr ochlorothiazide 6.25 mg tablet RxNorm: 507862 1 Tablet(s) PO daily 02/16/2016 12/31/2017 Inactive oxycodone 20 mg tablet RxNorm: 9348335 1/2 Tablet(s) PO Q6 as needed 02/16/2016 04/09/2016 In active oxycodone 20 mg tablet RxNorm: 4220993 1/2 Tablet(s) PO Q6 as needed 01/04/2016 02/15/2016 In active bisoprolol 5 mg-hydr ochlorothiazide 6.25 mg tablet RxNorm: 576843 1 Tablet(s) PO daily 11/19/2015 01/17/2016 Inactive bisoprolol 5 mg-hydr ochlorothiazide 6.25 mg tablet RxNorm: 088932 1 Tablet(s) PO daily 11/04/2015 11/18/2015 Inactive oxycodone 20 mg tablet RxNorm: 2012829 1/2 Tablet(s) PO Q6 as needed 10/27/2015 01/03/2016 In active levothyroxine 150 mc g tablet RxNorm: 771309 1 Tablet(s) PO daily 08/26/2015 02/21/2016 Inactive [SAVINGS FOR NON-COVERED DRUGS -- BIN:00 3585, PCN: ASPROD1, Group: XXXXX, ID# XXXXXXX, Questions: . THIS IS NOT INSURANCE.] bisoprolol 5 mg-hydr ochlorothiazide 6.25 mg tablet RxNorm: 947532 1 Tablet(s) PO daily 08/26/2015 10/24/2015 Inactive oxycodone 10 mg tablet RxNorm: 8843131 1 Tablet(s) PO Q6 as needed 05/06/2015 10/26/2015 Inactive levothyroxine 150 mc g tablet RxNorm: 293051 1 Tablet(s) PO daily 02/05/2015 08/03/2015 Inactive [SAVINGS FOR NON-COVERED DRUGS -- BIN:00 3585, PCN: ASPROD1, Group: XXXXX, ID# XXXXXXX, Questions: . THIS IS NOT INSURANCE.] Vitamin D2 50,000 un it capsule RxNorm: 453084 1 Capsule(s) PO weekly 02/05/2015 05/05/2015 Inactive [SAVINGS FOR NON-COVERED DRUGS -- BIN:00 3585, PCN: ASPROD1, Group: XXXXX, ID# XXXXXXX, Questions: . THIS IS NOT INSURANCE.] Vitamin D2 50,000 un it capsule RxNorm: 985355 1 Capsule(s) PO weekly 02/05/2015 02/04/2015 Inactive bisoprolol 5 mg-hydr ochlorothiazide 6.25 mg tablet RxNorm: 075248 1 Tablet(s) PO daily 01/26/2015 02/24/2015 Inactive levothyroxine 200 mc g tablet RxNorm: 974710 1 Tablet(s) PO daily 01/26/2015 01/25/2015 Inactive levothyroxine 200 mc g tablet RxNorm: 062319 1 Tablet(s) PO every other day 01/26/2015 02/04/2015 In active [SAVINGS FOR NON-COVERED DRUGS -- BIN:00 2253, PCN: ASPROD1, Group: XXXXX, ID# XXXXXXX, Questions: . THIS IS NOT INSURANCE.] aspirin 81 mg chewab le tablet RxNorm: 136344 1 Tablet(s) PO daily No Start Date Active Plavix 75 mg tablet RxNorm: 386299 1 Tablet(s) PO daily manage by Dr Lawler as No Start Date Active simvastatin 40 mg ta blet RxNorm: 105085 1 Tablet(s) PO QHS ma naged by Dr Baig No Start Date Active Colcrys 0.6 mg tablet RxNorm: 162385 2 tabs at onset then may repeat 1 tab in 1 hours if needed- Tablet(s) PO No Start Date 04/08/2017 Inactive then take daily until gout resolved aspirin 325 mg tablet RxNorm: 284809 1 Tablet(s) PO daily No Start Date 05/03/2016 Inactive levothyroxine 75 mcg tablet RxNorm: 434798 1 Tablet(s) PO every other day No Start Date 02/04/2015 Inactive takes qod with 200mcg oxycodone 10 mg tablet RxNorm: 7682731 1 Tablet(s) PO Q6 as needed No Start Date 05/05/2015 Inactive ketoconazole 2 % top ical cream RxNorm: 810213 1 Gram(s) TOP BID to affected area [...] URIN E CULTURE See Note 03/17/2019 %Hba1C Cwa687 % HbA1c 87072-3 9.2 % 02/25/2019 %Hba1C Xja042 Gluc Ave 217 mg/dL 02/25/2019 Comp Metabolic Jnu876 NA 136 mEq/L 02/25/2019 Comp Metabolic Fhw837 K 4.8 mEq/L 02/25/2019 Comp Metabolic Lha865 CL 95 mEq/L 02/25/2019 Comp Metabolic Nre405 CO2 36.0 mEq/L 02/25/2019 Comp Metabolic Cyv481 AN ION GAP 10 02/25/2019 Comp Metabolic Uru929 GL UCOSE 255 mg/dL 02/25/2019 Comp Metabolic Wtb432 Cr eat 1.2 mg/dL 02/25/2019 Comp Metabolic Jyr107 eG FR 62 ml/min/1.73m2 02/25 Comp Metabolic Eqf160 BUN 29 mg/dL 02/25/2019 Comp Metabolic Stq985 B/ C Ratio 24.0 Ratio 02/25/2019 Comp Metabolic Ktn373 CA LCIUM 9.0 mg/dL 02/25/2019 Comp Metabolic Xzj110 AL K PHOS 102 U/L 02/25/2019 Comp Metabolic Rlr006 T(SGOT) 12 U/L 02/25/2019 Comp Metabolic Zix770 AL T(SGPT) 9 U/L 02/25/2019 Comp Metabolic Yhm140 BI LI T 0.6 mg/dL 02/25/2019 Comp Metabolic Cex085 AL BUMIN 3.8 g/dL 02/25/2019 Comp Metabolic Tao248 TP RO 6.6 g/dL 02/25/2019 Comp Metabolic Kjy453 GL OB 2.8 g/dL 02/25/2019 Comp Metabolic Vqc227 A/ G Ratio 1.4 Ratio 02/25/2019 Comp Metabolic Dbh864 Os mo 286 mOsmo 02/25/2019 %Hba1C Mhf959 % HbA1c 41138-1 6.4 % 08/30/2018 %Hba1C Tos424 Gluc Ave 137 mg/dL 08/30/2018 Culture Urine [id number] URI NE CULTURE SEE NOTES 02/22/2018 Urine [...] 24.5 pg 02/20/2018 Cbc With Differential Ord2 Louisa% 8.9 % 02/20/2018 Cbc With Differential Ord2 [...] 0.81 K/ul 02/20/2018 Cbc With Differential Ord2 Louisa ABS# 0.7 K/ul 02/20/2018 Cbc With Differential Ord2 Eos ABS# 0.4 K/ul 02/20/2018 Cbc With Differential Ord2 Baso ABS# 0.0 K/ul 02/20/2018 %Hba1C Vcv697 % HbA1c 31643-3 7.7 % 02/20/2018 %Hba1C Abc936 Gluc Ave 174 mg/dL 02/20/2018 Lipase Pnj003 LIPASE 17 U/L 02/20/2018 Microalbumin Pjv701 Micr oAlb 6.5 mg/dL 02/20/2018 Amylase Ord34 AMYLASE 15 U/L 02/20/2018 Free T4 Moj666 FREE T4 0.61 ng/dL 02/20/2018 Lipid Ord30 CHOL 203 mg/dL 02/20/2018 Lipid Ord30 HDL 7.0 mg/dl 02/20/2018 Lipid Ord30 TRIG 271 mg/dL 02/20/2018 Lipid Ord30 LDL 142 mg/dL 02/20/2018 Lipid Ord30 C/HDL 29.0 Ratio 02/20/2018 Comp Metabolic Uhg396 NA 134 mEq/L 02/20/2018 Comp Metabolic Nne324 K 3.6 mEq/L 02/20/2018 Comp Metabolic Gfo128 CL 96 mEq/L 02/20/2018 Comp Metabolic Xat777 CO2 29.0 mEq/L 02/20/2018 Comp Metabolic Nwb193 AN ION GAP 13 02/20/2018 Comp Metabolic Qof359 GL UCOSE 165 mg/dL 02/20/2018 Comp Metabolic Tmz949 Cr eat 1.2 mg/dL 02/20/2018 Comp Metabolic Ugq314 eG FR 63 ml/min/1.73m2 02/20 Comp Metabolic Rtw857 BUN 14 mg/dL 02/20/2018 Comp Metabolic Nre312 B/ C Ratio 11.6 Ratio 02/20/2018 Comp Metabolic Unp618 CA LCIUM 8.5 mg/dL 02/20/2018 Comp Metabolic Yel016 AL K PHOS 633 U/L 02/20/2018 Comp Metabolic Paq498 T(SGOT) 112 U/L 02/20/2018 Comp Metabolic Wtu323 AL T(SGPT) 148 U/L 02/20/2018 Comp Metabolic Aif164 BI LI T 6.8 mg/dL 02/20/2018 Comp Metabolic Erb234 AL BUMIN 3.3 g/dL 02/20/2018 Comp Metabolic Yeg859 TP RO 5.9 g/dL 02/20/2018 Comp Metabolic Uwh687 GL OB 2.6 g/dL 02/20/2018 Comp Metabolic Jha873 A/ G Ratio 1.3 Ratio 02/20/2018 Comp Metabolic Afz817 Os mo 272 mOsmo 02/20/2018 Total Psa [...] Metabolic Ord15 CALCIUM 9.2 mg/dL 11/09/2017 %Hba1C Gbd166 % HbA1c 31997-3 8.0 % 11/09/2017 %Hba1C Plb776 Gluc Ave 183 mg/dL 11/09/2017 Metabolic Ord15 [...] Ord15 CALCIUM 8.7 mg/dL 06/25/2017 Culture Wound [id number] WOU ND CULTURE SEE NOTES 04/09/2017 Culture Wound [id number] Con tinued Results 04/09/2017 Amylase Ord34 AMYLASE [...] 27.9 pg 03/22/2017 Cbc With Differential Ord2 Louisa% 8.3 % 03/22/2017 Cbc With Differential Ord2 [...] 1.35 K/ul 03/22/2017 Cbc With Differential Ord2 Louisa ABS# 1.4 K/ul 03/22/2017 Cbc With Differential Ord2 Eos ABS# 0.2 K/ul 03/22/2017 Cbc With Differential Ord2 Baso ABS# 0.0 K/ul 03/22/2017 Comp Metabolic Gwv802 NA 134 mEq/L 03/22/2017 Comp Metabolic Zvv186 K 4.5 mEq/L 03/22/2017 Comp Metabolic Fbu602 CL 93 mEq/L 03/22/2017 Comp Metabolic Zte175 CO2 31.0 mEq/L 03/22/2017 Comp Metabolic Xaz911 AN ION GAP 15 03/22/2017 Comp Metabolic Wtp931 GL UCOSE 198 mg/dL 03/22/2017 Comp Metabolic Cdx283 Cr eat 1.5 mg/dL 03/22/2017 Comp Metabolic Xoo677 eG FR 50 ml/min/1.73m2 03/22 Comp Metabolic Psl370 BUN 32 mg/dL 03/22/2017 Comp Metabolic Bkr070 B/ C Ratio 21.6 Ratio 03/22/2017 Comp Metabolic Isk648 CA LCIUM 8.4 mg/dL 03/22/2017 Comp Metabolic Tul146 AL K PHOS 245 U/L 03/22/2017 Comp Metabolic Cck134 T(SGOT) 18 U/L 03/22/2017 Comp Metabolic Nan153 AL T(SGPT) 17 U/L 03/22/2017 Comp Metabolic Lbc761 BI LI T 0.8 mg/dL 03/22/2017 Comp Metabolic Udg460 AL BUMIN 2.9 g/dL 03/22/2017 Comp Metabolic Vgh439 TP RO 6.3 g/dL 03/22/2017 Comp Metabolic Wrl098 GL OB 3.4 g/dL 03/22/2017 Comp Metabolic Jgd026 A/ G Ratio 0.8 Ratio 03/22/2017 Comp Metabolic Qgk385 Os mo 281 mOsmo 03/22/2017 Lipase Hul097 LIPASE 12 U/L 03/22/2017 Comp Metabolic Yzl383 NA 142 mEq/L 03/09/2017 Comp Metabolic Vgk681 K 4.8 mEq/L 03/09/2017 Comp Metabolic Pxh371 CL 103 mEq/L 03/09/2017 Comp Metabolic Bgy451 CO2 30.0 mEq/L 03/09/2017 Comp Metabolic Mvo101 AN ION GAP 14 03/09/2017 Comp Metabolic Chz859 GL UCOSE 152 mg/dL 03/09/2017 Comp Metabolic Pyh305 Cr eat 1.3 mg/dL 03/09/2017 Comp Metabolic Wea688 eG FR 56 ml/min/1.73m2 03/09 Comp Metabolic Xij748 BUN 23 mg/dL 03/09/2017 Comp Metabolic Fvd112 B/ C Ratio 17.3 Ratio 03/09/2017 Comp Metabolic Qwa400 CA LCIUM 8.5 mg/dL 03/09/2017 Comp Metabolic Lhl979 AL K PHOS 97 U/L 03/09/2017 Comp Metabolic Dxc939 T(SGOT) 10 U/L 03/09/2017 Comp Metabolic Krl023 AL T(SGPT) 6 U/L 03/09/2017 Comp Metabolic Vbo714 BI LI T 0.4 mg/dL 03/09/2017 Comp Metabolic Tdk859 AL BUMIN 3.4 g/dL 03/09/2017 Comp Metabolic Hgu576 TP RO 6.2 g/dL 03/09/2017 Comp Metabolic Ctb155 GL OB 2.8 g/dL 03/09/2017 Comp Metabolic Fzv333 A/ G Ratio 1.2 Ratio 03/09/2017 Comp Metabolic Wcm170 Os mo 290 mOsmo 03/09/2017 Free T4 Zpx588 FREE T4 0.86 ng/dL 03/08/2017 Cbc With [...] 28.2 pg 03/08/2017 Cbc With Differential Ord2 Louisa% 8.7 % 03/08/2017 Cbc With Differential Ord2 [...] 1.63 K/ul 03/08/2017 Cbc With Differential Ord2 Louisa ABS# 0.9 K/ul 03/08/2017 Cbc With Differential Ord2 Eos ABS# 0.5 K/ul 03/08/2017 Cbc With Differential Ord2 Baso ABS# 0.0 K/ul 03/08/2017 Tsh Ord6 hTSH II 4.52 uIU/mL 03/08/2017 %Hba1C Fmq817 % HbA1c 58151-5 8.5 % 03/08/2017 %Hba1C Bjb370 Gluc Ave 197 mg/dL 03/08/2017 %Hba1C Ffn798 % HbA1c 57118-5 9.8 % 12/04/2016 %Hba1C Hji829 Gluc Ave 235 mg/dL 12/04/2016 Tsh Ord6 hTSH II 10.65 uIU/mL 11/30/2016 Comp Metabolic Skd140 NA 134 mEq/L 11/30/2016 Comp Metabolic Poq074 K 5.0 mEq/L 11/30/2016 Comp Metabolic Ars815 CL 95 mEq/L 11/30/2016 Comp Metabolic Ikb690 CO2 34.0 mEq/L 11/30/2016 Comp Metabolic Brn532 AN ION GAP 10 11/30/2016 Comp Metabolic Cpn676 GL UCOSE 226 mg/dL 11/30/2016 Comp Metabolic Edn933 Cr eat 1.3 mg/dL 11/30/2016 Comp Metabolic Ggs953 eG FR 56 ml/min/1.73m2 11/30 Comp Metabolic Ldg683 BUN 21 mg/dL 11/30/2016 Comp Metabolic Zpr407 B/ C Ratio 15.7 Ratio 11/30/2016 Comp Metabolic Aov721 CA LCIUM 8.9 mg/dL 11/30/2016 Comp Metabolic Mhe437 AL K PHOS 112 U/L 11/30/2016 Comp Metabolic Agn293 T(SGOT) 9 U/L 11/30/2016 Comp Metabolic Yxa189 AL T(SGPT) 7 U/L 11/30/2016 Comp Metabolic Zyb550 BI LI T 0.6 mg/dL 11/30/2016 Comp Metabolic Usg570 AL BUMIN 3.6 g/dL 11/30/2016 Comp Metabolic Jmk102 TP RO 6.4 g/dL 11/30/2016 Comp Metabolic Yok877 GL OB 2.9 g/dL 11/30/2016 Comp Metabolic Qdd964 A/ G Ratio 1.2 Ratio 11/30/2016 Comp Metabolic Ktl728 Os mo 278 mOsmo 11/30/2016 Lipid Ord30 [...] 30.6 pg 11/30/2016 Cbc With Differential Ord2 Louisa% 7.9 % 11/30/2016 Cbc With Differential Ord2 [...] 1.34 K/ul 11/30/2016 Cbc With Differential Ord2 Louisa ABS# 0.8 K/ul 11/30/2016 Cbc With Differential Ord2 Eos ABS# 0.3 K/ul 11/30/2016 Cbc With Differential Ord2 Baso ABS# 0.0 K/ul 11/30/2016 Free T4 Oiv861 FREE T4 0.89 ng/dL 11/30/2016 Review of [...] Date URINALYSIS NONAUTO W /O SCOPE CPT-4: 81268 03/12/2019 ADMIN PNEUMOCOCCAL V ACCINE SNOMED CT: 74648785 CPT-4: G0009 02/05/2018 Pneumococcal Polysac charide Vaccine, 23-Valent, Ad CPT-4: 63605 02/05/2018 PPPS, SUBSEQ VISIT CPT- 4: G0439 11/30/2017 URINALYSIS NONAUTO W /O SCOPE CPT-4: 60057 03/22/2017 URINALYSIS NONAUTO W /O SCOPE CPT-4: 63908 03/21/2017 PPPS, SUBSEQ VISIT CPT- 4: G0439 11/30/2016 PNEUMOCOCCAL VACC 13 JAVIER IM Formatting Model/CDA Sections, Assigned to SNOMED CT: [id number] CPT-4: [id number] 11/30/2016 ADMIN PNEUMOCOCCAL V ACCINE SNOMED CT: 98428033 CPT-4: G0009 11/30/2016 Vital Signs Date Vital 03/12/2019 Blood Pressure 1: 140/52 Code: 8480-6 Heart Rate 1: 60 bpm Height: 5'10" SpO2: 96% Weight: 02/25/2019 Blood Pressure 1: 110/58 Code: 8480-6 BMI: 38.3 Code: 79410-0 Heart Rate 1: 47 bpm Height: 5'10" SpO2: 97% Weight: 267 lbs 10/18/2018 Blood Pressure 1: 118/70 Code: 8480-6 BMI: 39.0 Code: 34316-5 Heart Rate 1: 86 bpm Height: 5'10" SpO2: 95% Weight: 272 lbs 10/14/2018 Blood Pressure 1: 120/56 Code: 8480-6 Heart Rate 1: 67 bpm Height: 5'10" SpO2: 92% 10/10/2018 Blood Pressure 1: 126/70 Code: 8480-6 BMI: 34.7 Code: 76696-9 Heart Rate 1: 80 bpm Height: 5'10" SpO2: 96% Temperature: 37.1 (C ) / 98.7 (F) Weight: 242 lbs 10/04/2018 Blood Pressure 1: 120/70 Code: 8480-6 Height: 5'10" SpO2: 96% 08/29/2018 Blood Pressure 1: 104/60 Code: 8480-6 BMI: 34.6 Code: 68800-8 Heart Rate 1: 68 bpm Height: 5'10" SpO2: 98% Weight: 241 lbs 02/25/2018 Blood Pressure 1: 120/70 Code: 8480-6 BMI: 37.0 Code: 22386-0 Heart Rate 1: 51 bpm Height: 5'10" SpO2: 97% Weight: 258 lbs 02/20/2018 Blood Pressure 1: 124/70 Code: 8480-6 BMI: 38.0 Code: 16030-7 Heart Rate 1: 60 bpm Height: 5'10" SpO2: 96% Weight: 265 lbs 02/05/2018 Blood Pressure 1: 116/66 Code: 8480-6 BMI: 38.0 Code: 51585-8 Heart Rate 1: 63 bpm Height: 5'10" SpO2: 98% Weight: 265 lbs 11/30/2017 Blood Pressure 1: 132/60 Code: 8480-6 BMI: 37.0 Code: 25242-2 Heart Rate 1: 100 bpm Height: 5'10" SpO2: 96% Waist Measure (cm): 122 cm Weight: 258 lbs 11/08/2017 Blood Pressure 1: 126/64 Code: 8480-6 BMI: 37.2 Code: 35262-3 Heart Rate 1: 92 bpm Height: 5'10" SpO2: 94% Weight: 259 lbs 09/20/2017 Blood Pressure 1: 122/68 Code: 8480-6 BMI: 36.9 Code: 33420-8 Heart Rate 1: 57 bpm Height: 5'10" SpO2: 96% Weight: 257 lbs 06/25/2017 Blood Pressure 1: 124/68 Code: 8480-6 BMI: 37.0 Code: 82393-9 Height: 5'10" Weight: 258 lbs 06/07/2017 Blood Pressure 1: 122/64 Code: 8480-6 BMI: 37.0 Code: 73961-5 Heart Rate 1: 60 bpm Height: 5'10" SpO2: 94% Temperature: 36.4 (C ) / 97.6 (F) Weight: 258 lbs 05/03/2017 Blood Pressure 1: 118/74 Code: 8480-6 BMI: 38.2 Code: 17399-3 Heart Rate 1: 52 bpm Height: 5'10" SpO2: 98% Weight: 266 lbs 04/02/2017 Blood Pressure 1: 118/62 Code: 8480-6 BMI: 38.2 Code: 31506-3 Heart Rate 1: 53 bpm Height: 5'10" SpO2: 93% Weight: 266 lbs 03/26/2017 Blood Pressure 1: 114/62 Code: 8480-6 BMI: 38.3 Code: 77273-1 Height: 5'10" Weight: 267 lbs 03/22/2017 Blood Pressure 1: 122/64 Code: 8480-6 BMI: 40.0 Code: 21566-0 Heart Rate 1: 52 bpm Height: 5'10" SpO2: 94% Weight: 279 lbs 03/08/2017 Blood Pressure 1: 124/70 Code: 8480-6 BMI: 39.4 Code: 80843-8 Heart Rate 1: 51 bpm Height: 5'10" SpO2: 94% Weight: 274 lbs 8 oz 12/06/2016 Blood Pressure 1: 126/62 Code: 8480-6 BMI: 40.3 Code: 74752-6 Heart Rate 1: 50 bpm Height: 5'10" SpO2: 94% Weight: 281 lbs 11/30/2016 Blood Pressure 1: 112/62 Code: 8480-6 BMI: 40.3 Code: 21346-7 Heart Rate 1: 52 bpm Height: 5'10" SpO2: 93% Waist Measure (cm): 135 cm Weight: 281 lbs 11/28/2016 Blood Pressure 1: 132/72 Code: 8480-6 BMI: 40.3 Code: 96208-2 Heart Rate 1: 50 bpm Height: 5'10" Weight: 281 lbs 05/04/2016 Blood Pressure 1: 128/78 Code: 8480-6 BMI: 38.5 Code: 70866-9 Heart Rate 1: 74 bpm Height: 5'10" SpO2: 98% Weight: 268 lbs 8 oz 11/04/2015 Blood Pressure 1: 136/60 Code: 8480-6 BMI: 38.0 Code: 88690-3 Heart Rate 1: 55 bpm Height: 5'10" SpO2: 94% Weight: 265 lbs 07/30/2015 Blood Pressure 1: 128/74 Code: 8480-6 BMI: 38.0 Code: 48785-2 Heart Rate 1: 47 bpm Height: 5'10" SpO2: 97% Weight: 265 lbs 01/26/2015 Blood Pressure 1: 122/64 Code: 8480-6 BMI: 34.0 Code: 30236-9 Heart Rate 1: 68 bpm Height: 5'10" [...] Encounters Encounter Performer Loca tion Codes Date 90489 EST. PATIENT, LEVEL III Diagnosis: Dysuria[ICD10: R30.0] Diagnosis: Type 2 diabetes mellitus with hyperglycemia[ICD10: E11.65] Kiki Sanchez MD, [facility] CPT-4: 04512 03/12/2019 ([id number]) 79520 EST. P ATIENT, LEVEL IV Diagnosis: Essential (primary) hypertension[ICD10: I10] Diagnosis: Type 2 diabetes mellitus with hyperglycemia[ICD10: E11.65] Diagnosis: Chronic pain syndrome[ICD10: G89.4] Diagnosis: Chronic kidney disease, stage 3 (moderate)[ICD10: N18.3] Sarah Sanchez MD, [facility] CPT-4: 89984 02/25/2019 82356 EST. PATIENT, LEVEL III Diagnosis: Localized edema[ICD10: R60.0] Diagnosis: Cellulitis of left lower limb[ICD10: L03.116] Diagnosis: Cellulitis of right lower limb[ICD10: L03.115] Kiki Sanchez MD, [facility] CPT-4: 93998 10/18/2018 80183 EST. PATIENT, LEVEL III Diagnosis: Localized edema[ICD10: R60.0] Diagnosis: Cellulitis of left lower limb[ICD10: L03.116] Diagnosis: Cellulitis of right lower limb[ICD10: L03.115] Diagnosis: Chronic obstructive pulmonary disease, unspecified[ICD10: J44.9] Diagnosis: Weakness[ICD10: R53.1] Kiki Sanchez MD, [facility] CPT-4: 35898 10/14/2018 07835 EST. PATIENT, LEVEL III Diagnosis: Localized edema[ICD10: R60.0] Diagnosis: Cellulitis of left lower limb[ICD10: L03.116] Diagnosis: Cellulitis of right lower limb[ICD10: L03.115] Kiki Sanchez MD, [facility] CPT-4: 65146 10/10/2018 ([id number]) 03041 EST. P ATIENT, LEVEL IV Diagnosis: Type 2 diabetes mellitus with foot ulcer[ICD10: E11.621] Diagnosis: Essential (primary) hypertension[ICD10: I10] Diagnosis: Malignant neoplasm of prostate[ICD10: C61] Diagnosis: Chronic obstructive pulmonary disease, unspecified[ICD10: J44.9] Diagnosis: Hypoxemia[ICD10: R09.02] Sarah Sanchez MD, [facility] CPT- 4: 19315 10/04/2018 ([id number]) 44619 EST. P ATIENT, LEVEL IV Diagnosis: Type 2 diabetes mellitus with hyperglycemia[ICD10: E11.65] Diagnosis: Essential (primary) hypertension[ICD10: I10] Diagnosis: Malignant neoplasm of prostate[ICD10: C61] Sarah Sanchez MD, [facility] CPT-4: 43058 08/29/2018 ([id number]) 01650 EST. P ATIENT, LEVEL IV Diagnosis: Malignant neoplasm of prostate[ICD10: C61] Dorene Sanchez MD, [facility] CPT-4: 53251 02/25/2018 09986 EST. PATIENT, LEVEL IV Diagnosis: Generalized abdominal pain[ICD10: R10.84] Diagnosis: Unspecified jaundice[ICD10: R17] Diagnosis: Gross hematuria[ICD10: R31.0] Kiki Sanchez MD, [facility] CPT-4: 09563 02/20/2018 ([id number]) 17765 EST. P ATIENT, LEVEL IV Diagnosis: Type 2 diabetes mellitus with hyperglycemia[ICD10: E11.65] Diagnosis: Essential (primary) hypertension[ICD10: I10] Diagnosis: Chronic kidney disease, stage 3 (moderate)[ICD10: N18.3] Diagnosis: Chronic pain syndrome[ICD10: G89.4] Diagnosis: Other specified hypothyroidism[ICD10: E03.8] Diagnosis: Encounter for screening for malignant neoplasm of prostate[ICD10: Z12.5] Diagnosis: Encounter for immunization[ICD10: Z23] Sarah Sanchez MD, [facility] CPT-4: 55018 02/05/2018 ([id number]) 21093 EST. P ATIENT, LEVEL IV Diagnosis: Type 2 diabetes mellitus with hyperglycemia[ICD10: E11.65] Diagnosis: Essential (primary) hypertension[ICD10: I10] Dorene Sanchez MD, [facility] CPT-4: 15241 11/08/2017 ([id number]) 00944 EST. P ATIENT, LEVEL IV Diagnosis: Type 2 diabetes mellitus with hyperglycemia[ICD10: E11.65] Diagnosis: Chronic pain syndrome[ICD10: G89.4] Diagnosis: Essential (primary) hypertension[ICD10: I10] Diagnosis: Chronic kidney disease, stage 3 (moderate)[ICD10: N18.3] Diagnosis: Localized edema[ICD10: R60.0] Dorene Sanchez MD, [facility] CPT-4: 06432 09/20/2017 ([id number]) 48915 EST. P ATIENT, LEVEL III Diagnosis: Type 2 diabetes mellitus with hyperglycemia[ICD10: E11.65] Sarah Sanchez MD, [facility] CPT-4: 67922 06/25/2017 ([id number]) 42511 EST. P ATIENT, LEVEL III Diagnosis: Cellulitis of left lower limb[ICD10: L03.116] Sarah Sanchez MD, [facility] CPT-4: 20203 06/07/2017 ([id number]) 38708 EST. P ATIENT, LEVEL III Diagnosis: Localized edema[ICD10: R60.0] Diagnosis: Type 2 diabetes mellitus with foot ulcer[ICD10: E11.621] Sarah Sanchez MD, [facility] CPT-4: 36859 05/03/2017 ([id number]) 44732 EST. P ATIENT, LEVEL III Diagnosis: Cellulitis of left lower limb[ICD10: L03.116] Diagnosis: Localized edema[ICD10: R60.0] Sarah Sanchez MD, [facility] CPT- 4: 11514 04/02/2017 ([id number]) Miscellaneou s no charge Diagnosis: Localized edema[ICD10: R60.0] Diagnosis: Cellulitis of left lower limb[ICD10: L03.116] Sarah Sanchez MD, [facility] CPT-4: 82336 03/26/2017 ([id number]) 00426 EST. 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 P ATIENT, LEVEL IV Diagnosis: Type 2 diabetes mellitus with hyperglycemia[ICD10: E11.65] Diagnosis: Other specified hypothyroidism[ICD10: E03.8] Diagnosis: Essential (primary) hypertension[ICD10: I10] Sarah Sanchez MD, [facility] CPT-4: 97136 03/08/2017 ([id number]) 47890 EST. P ATIENT, LEVEL III Diagnosis: Type 2 diabetes mellitus with hyperglycemia[ICD10: E11.65] Diagnosis: Other specified hypothyroidism[ICD10: E03.8] Sarah Sanchez MD, [facility] CPT-4: 40075 12/06/2016 ([id number]) 35994 EST. P ATIENT, LEVEL IV Diagnosis: Essential (primary) hypertension[ICD10: I10] Diagnosis: Chronic kidney disease, stage 3 (moderate)[ICD10: N18.3] Dorene Sanchez MD, [facility] CPT-4: 51780 11/28/2016 ([id number]) 45696 EST. P ATIENT, LEVEL IV Diagnosis: Essential (primary) hypertension[ICD10: I10] Diagnosis: Chronic pain syndrome[ICD10: G89.4] Diagnosis: Chronic kidney disease, stage 3 (moderate)[ICD10: N18.3] Diagnosis: Vitamin B12 deficiency anemia due to intrinsic factor deficiency[ICD10: D51.0] Diagnosis: Other specified hypothyroidism[ICD10: E03.8] Dorene Sanchez MD, [facility] CPT-4: 18396 05/04/2016 71617 EST. PATIENT, LEVEL III Diagnosis: Chronic pain syndrome[ICD10: G89.4] Diagnosis: Essential (primary) hypertension[ICD10: I10] Diagnosis: Other specified hypothyroidism[ICD10: E03.8] [facility] CPT-4: 10385 11/04/2015 61718 EST. PATIENT, LEVEL III Diagnosis: Chronic pain syndrome[ICD10: G89.4] Diagnosis: Essential (primary) hypertension[ICD10: I10] [facility] CPT-4: 84720 07/30/2015 ([id number]) OFFICE/OUTPA TIENT VISIT NEW Diagnosis: ESSENTIAL HYPERTENSION[ICD9: 401.9] Diagnosis: HYPOTHYROIDISM[ICD9: 244.9] Diagnosis: ANEMIA[ICD9: 285.9] Diagnosis: Vitamin B12 deficiency[ICD9: 266.2] Diagnosis: CHRONIC PAIN SYNDROME[ICD9: 338.4] Diagnosis: Chronic renal insufficiency, stage III (moderate)[ICD9: 585.3] Diagnosis: GOUT[ICD9: 274.9] [facility] CPT-4: 99426 01/26/2015 Plan of Care Planned Activity Notes [...] control. 03/12/2019 Appointment: [phone] (15 min) Moderate 03/12/2019 Appointment: Nurse [...] of over-medication. 02/25/2019 Appointment: Sarah Hernandes WPtel: [phone] [facility] (15 min) Moderate 02/25/2019 Patient [...] discharge. 10/18/2018 Appointment: [facility] Menjivar [facility]Ptel[phone] [facility] [place] (30 min) Complex 10/18/2018 Patient Education: [...] to weakness 10/14/2018 Appointment: Kiki Menjivar WPtel: [facility]5 [facility] (30 min) Complex 10/14/2018 Patient Education: [...] warmth, discharge. 10/10/2018 Appointment: Kiki Menjivar WPtel: [facility]5 [facility] (30 min) Complex 10/10/2018 Patient Education: Patient Medication Summary Completed 10/10/2018 Visit Plan: DM with peripheral neur opathy-paperwork completed for diabetic shoes and will fax to Dr Bauer HTN-controlled -no changes Kwlvxuose-UBWY-GBB-prostate cancer with mets- patient qualifies for oxygen-oxy gen saturation dropped to 86% on room air during ambulation but increased to 99% on 2L NC at rest-will send orders to [facility] for continue oxygen at 2L per nasal cannula 10/04/2018 Appointment: Sarah Hernandes WPtel: [facility]8 [place] [phone] (30 min) Complex 10/04/2018 Patient Education: Patient [...] Dr Moreno 08/29/2018 Appointment: Sarah Hernandes WPtel: [facility]9 [place] [phone] (15 min) Moderate 08/29/2018 Patient Education: Patient Medication Summary Completed 08/29/2018 Referral: Edgard Rivera MD WPtel: Via [address] with Dr. Moreno. Patient informed. Referra l info faxed. Completed 02/27/2018 Visit Plan: Recurrent prostate canc er - I have recommended a referral to Dr. Rivera. We discussed the case at length today- he is not interested in extensive treatment, but if possible to extend his quantity and quality of life, he would like to try. 02/25/2018 Appointment: [facility]el[phone] (15 min) Moderate 02/25/2018 Patient Education: Patient Medication Summary Completed 02/25/2018 Care Plan: Referral Order SNOMED-CT : [id number] Pending 02/25/2018 Visit Plan: Intermittent abdominal pain, jaundice, itching - will check labs and treat as indicated - pt is to go to the ER with any acute change in symptoms or any acute concerns. 02/20/2018 Appointment: [facility] Menjivar WPtel[phone] [facility] (30 min) Complex 02/20/2018 Patient Education: [...] of control. 02/05/2018 Appointment: Sarah Hernandes WPtel: [phone] [phone] [place] (30 min) Complex 02/05/2018 Patient Education: [...] surrogate. 11/30/2017 Appointment: Sarah Hernandes WPtel: [phone] [phone] [facility] - Annual Wellness Visit 11/30/2017 [...] 1.2 11/08/2017 Appointment: [facility]ore[facility] Sanchez [facility]Ptel[phone] [facility] (15 min) Moderate 11/08/2017 Patient Education: Patient [...] over-medication. 09/20/2017 Appointment: [facility] Sanchez [facility]Ptel: [phone] [facility] (15 min) Moderate 09/20/2017 Patient Education: Patient [...] control. 06/25/2017 Appointment: [facility] Hernandes WPtel: [phone] [phone] (30 min) Complex 06/25/2017 Patient Education: Patient Medication Summary Completed 06/25/2017 Appointment: Sarah Hernandes WPtel: [phone] [phone] [place] (30 min) Complex 06/22/2017 Visit Plan: Cellulitis - start oral antibiotics as previously directed, return to clinic as previously directed, call for acute change in symptoms, worsening redness, warmth, discharge. 06/07/2017 Appointment: Sarah Hernandes WPtel: [facility]5 [phone] (30 min) Complex 06/07/2017 Patient Education: Patient Medication Summary Completed 06/07/2017 Patient Education: Obesity Completed 06/07/2017 Appointment: Dorene Sanchez WPtel: [facility]7 [facility] [place] (15 min) Moderate 05/31/2017 Visit Plan: Edema-significantly imp roved-no changes Ulcer- left lower leg and foot-seeing Dr Norwood at wound care-appt scheduled with Dr Frausto for vascular evaluation 05/03/2017 Appointment: Sarah Hernandes WPtel: [facility]4 [phone] [place] (15 min) Moderate 05/03/2017 Patient Education: Patient Medication Summary Completed 05/03/2017 Patient Education: Obesity Completed 05/03/2017 Visit Plan: Seaofglgvo-zkdiylcbn-bk tient to finish abx-no further treatment indicated Edema-significantly improved-no longer weeping- continue unna boots twice weekly with home health 04/02/2017 Appointment: Sarah Hernandes WPtel: [facility]5 [phone] [place] (30 min) Complex 04/02/2017 Patient Education: Patient Medication Summary Completed 04/02/2017 Patient Education: Obesity Completed 04/02/2017 Visit Plan: Cellulitis-left leg-con tinue levaquin Edema- increase lasix/potassium-consult [facility] for unna boots/dressing changes 03/26/2017 Appointment: Sarah Hernandes WPtel: [facility]8 [phone] [place] (15 min) Moderate 03/26/2017 Patient [...] aleve 03/22/2017 Appointment: [facility] Hernandes WPtel: [phone] [phone] [place] (15 min) Moderate 03/22/2017 Patient [...] previous levels of control. 03/08/2017 Appointment: Sarah Hernandse WPtel: [phone] [phone] [place] (30 min) Complex 03/08/2017 Patient [...] surrogate. 11/30/2016 Appointment: Sarah Hernandes WPtel: [phone] [phone] [place] [address] - Annual Wellness Visit 11/30/2016 Patient Education: [...] fluids. 11/28/2016 Appointment: [facility] Sanchez [facility]Ptel: [phone] (15 min) Moderate 11/28/2016 Patient Education: Patient [...] 01/26/2015 Referral: Edgard Rivera MD WPtel: [address] [place] Referral Appointment Requested Instructions Comment INCREASE LASIX AND P OTASSIUM TO TWICE DAILY [facility] [...] repeat labs in 3 months-sooner if needed take lasix 2 in the morning and [...] change in symptoms, worsening redness, warmth, discharge. Take lasix 20mg a da y twice [...] for health care surrogate. . Hypertension - wel l controlled - [...] continue with supportive care and medication monitoring. victoza 0.6mg daily . Diabetes Mellitus - [...] greater blood glucose control. Monitor your blood p ressure at home [...] discuss further treatment options with Dr Moreno PREVMAYA 13 TODAY- GI MIKE IN OFFICE PREVNAR 23 IN ONE YEAR SHINGLES VACCINATION TO BE ADMINISTERED AT [facility] RECOMMEND OBTAINING MEDICAL POWER OF [place] AND LIVING WILL PATIENT DOES NOT HAVE [...] YEAR SHINGLES VACCINATION TO BE ADMINISTERED AT [facility] RECOMMEND OBTAINING MEDICAL POWER OF [place] AND LIVING WILL PATIENT DOES NOT HAVE [...] YEAR SHINGLES VACCINATION TO BE ADMINISTERED AT [facility] RECOMMEND OBTAINING MEDICAL POWER OF [place] AND LIVING WILL PATIENT DOES NOT HAVE [...] 50-recommend patient stop the indomethacin-stop aleve . Edema - pt has bee n [...] decrease edema. . Edema - pt has bee n [...] assist with repositioning due to weakness . Cellulitis-improvi ng-patient to finish abx-no further [...] fax to Dr Bauer HTN-controlled -no changes Zxvwpfbbd-PVYC-MKT-prostate cancer with mets- patient qualifies for oxygen- [...]
[2020-01-14] MEDS ORDERED: inSUlin (REGULAR) HUMAN 1 UNIT/0.01 ML (CHARGE PER UNIT) SC ONE (19:45)
--- OUTSIDE RECORDS SUMMARY | 2020-01-14 19:46 | XMS REPORT | CCD ---
Author Author Ayanna Sanchez Organization Dorene Sanchez MD, [facility] Address [address] [place] [address] Phone Care Team Providers Care Corral Boss Name Role Phone PP Unavailable CCM Unavailable Summary Purpose Interface Exchange Insurance Providers Payer name Policy type / Coverage type Covered libertarian ID Effective Begin Date Effective End Date WPS Medicare Part B Medicare Part B [id number] Unknown Unknown Family history Father Diagnosis Age At Onset Stroke Unknown Mother Diagnosis Age At Onset Stroke Unknown Diabetes mellitus Type 2 Unknown Social History Social History Element Codes Description Effective Dates Tobacco history SNOMED CT: 137015946 Currently uses smokeless tobacco Chews 05/04/2016 Marital status Unknown W idowed 01/26/2015 Number of children Unknown 3 01/26/2015 Employment Unknown Retir ed 01/26/[address]: 702336487 Never drinks alcohol quit in July 2014 [...] Fill Instructions oxycodone 10 mg tablet RxNorm: 6467206 1 Tablet(s) PO Q4 PRN 04/30/2019 No Stop Date Active Lasix 20 mg tablet RxNorm: 298309 TAKE ONE TABLET BY MOUTH TWICE A DAY 04/08/2019 10/04/2019 Ac tive oxycodone 10 mg tablet RxNorm: 4840720 1 Tablet(s) PO Q4 PRN 03/25/2019 04/29/2019 Inactive gabapentin 100 mg ca psule RxNorm: 936173 TAKE ONE CAPSULE BY M OUTH IN THE EVENING AT 5PM 03/21/2019 08/17/2019 Active levothyroxine 200 mc g tablet RxNorm: 341450 TAKE ONE TABLET BY MO UTH DAILY ON AN EMPTY STOMACH 03/13/2019 12/07/2019 Active bisoprolol 5 mg-hydr ochlorothiazide 6.25 mg tablet RxNorm: 485679 TAKE ONE TABLET BY MOUTH DAILY 03/13/2019 12/07/2019 Active Keflex 500 mg capsule RxNorm: 181736 1 Capsule(s) PO TID 03/12/2019 03/21/2019 Inactive potassium chloride E R 10 mEq tablet,extended release RxNorm: 580756 TAKE ONE TABLET BY MOUTH DAILY 03/10/2019 09/05/2019 Active oxycodone 10 mg tablet RxNorm: 6869581 1 Tablet(s) PO Q4 PRN 02/25/2019 03/24/2019 Inactive oxycodone 20 mg tablet RxNorm: 3531919 1/2 Tablet(s) PO Q6 as needed 01/21/2019 02/24/2019 In active oxycodone 20 mg tablet RxNorm: 2423394 1/2 Tablet(s) PO Q6 as needed 12/18/2018 01/16/2019 In active oxycodone 20 mg tablet RxNorm: 8680935 1/2 Tablet(s) PO Q6 as needed 11/12/2018 12/11/2018 In active gabapentin 100 mg ca psule RxNorm: 279481 1 Capsule(s) BID 11/05/2018 03/20/2019 Inactive potassium chloride E R 10 mEq tablet,extended release RxNorm: 108091 TAKE ONE TABLET BY MOUTH DAILY 11/04/2018 11/19/2018 Inactive Probiotic 10 billion cell capsule RxNorm: 7757576 1 Capsule(s) PO BID 10/25/2018 10/24/2018 In active Keflex 500 mg capsule RxNorm: 904246 1 Capsule(s) PO QID 10/25/2018 10/31/2018 Inactive Probiotic 10 billion cell capsule RxNorm: 9464440 1 Capsule(s) PO BID 10/25/2018 10/31/2018 In active oxycodone 20 mg tablet RxNorm: 6674037 1/2 Tablet(s) PO Q6 as needed 10/14/2018 11/11/2018 In active Keflex 500 mg capsule RxNorm: 102565 1 Capsule(s) PO TID 10/10/2018 10/19/2018 Inactive potassium chloride E R 10 mEq tablet,extended release RxNorm: 504193 1 Tablet(s) PO daily 10/10/2018 11/03/2018 Inactive Lasix 20 mg tablet RxNorm: 573340 1 Tablet(s) PO BID 10/10/2018 04/07/2019 Inactive albuterol sulfate 2. 5 mg/3 mL (0.083 %) solution for nebulization RxNorm: 984493 1 Milliliter(s) INH TID DX J44.9 01/31/2019 Inactive gabapentin 100 mg ca psule RxNorm: 849220 TAKE ONE CAPSULE BY M OUTH IN THE EVENING AT 5PM 09/24/2018 11/04/2018 Inactive oxycodone 20 mg tablet RxNorm: 1260432 1/2 Tablet(s) PO Q6 as needed 09/12/2018 10/11/2018 In active oxycodone 20 mg tablet RxNorm: 2320324 1/2 Tablet(s) PO Q6 as needed 08/15/2018 09/11/2018 In active oxycodone 20 mg tablet RxNorm: 3962956 1/2 Tablet(s) PO Q6 as needed 07/16/2018 08/14/2018 In active oxycodone 20 mg tablet RxNorm: 4682476 1/2 Tablet(s) PO Q6 as needed 06/14/2018 07/13/2018 In active gabapentin 100 mg ca psule RxNorm: 795546 TAKE ONE CAPSULE BY M OUTH IN THE EVENING AT 5PM 05/30/2018 09/23/2018 Inactive oxycodone 20 mg tablet RxNorm: 8868895 1/2 Tablet(s) PO Q6 as needed 05/15/2018 06/13/2018 In active oxycodone 20 mg tablet RxNorm: 8587244 1/2 Tablet(s) PO Q6 as needed 04/12/2018 05/11/2018 In active oxycodone 20 mg tablet RxNorm: 5298478 1/2 Tablet(s) PO Q6 as needed 03/11/2018 04/09/2018 In active Cipro 500 mg tablet RxNorm: 129367 1 Tablet(s) PO BID 02/21/2018 02/20/2018 Inactive levothyroxine 200 mc g tablet RxNorm: 374272 1 Tablet(s) PO daily 02/21/2018 02/20/2018 Inactive Cipro 500 mg tablet RxNorm: 855604 1 Tablet(s) PO BID 02/21/2018 03/02/2018 Inactive levothyroxine 200 mc g tablet RxNorm: 274789 1 Tablet(s) PO daily 02/21/2018 02/15/2019 Inactive oxycodone 20 mg tablet RxNorm: 7111117 1/2 Tablet(s) PO Q6 as needed 02/12/2018 03/10/2018 In active oxycodone 20 mg tablet RxNorm: 8570890 1/2 Tablet(s) PO Q6 as needed 01/16/2018 02/11/2018 In active gabapentin 100 mg ca psule RxNorm: 199686 TAKE ONE CAPSULE BY M OUTH IN THE EVENING AT 5PM 01/15/2018 05/29/2018 Inactive bisoprolol 5 mg-hydr ochlorothiazide 6.25 mg tablet RxNorm: 613675 TAKE ONE TABLET BY MOUTH DAILY 01/01/2018 12/26/2018 Inactive oxycodone 20 mg tablet RxNorm: 6635847 1/2 Tablet(s) PO Q6 as needed 12/20/2017 01/14/2018 In active oxycodone 20 mg tablet RxNorm: 5312461 1/2 Tablet(s) PO Q6 as needed 11/20/2017 12/19/2017 In active Victoza 2-Dino 0.6 mg /0.1 mL (18 mg/3 mL) subcutaneous pen injector RxNorm: 875949 1.2 Milligram(s) SQ daily 11/08/2017 12/07/2017 Inactive oxycodone 20 mg tablet RxNorm: 1153405 1/2 Tablet(s) PO Q6 as needed 10/19/2017 11/17/2017 In active gabapentin 100 mg ca psule RxNorm: 908516 1 Capsule(s) PO QPM at 5 pm 09/20/2017 01/14/2018 Inactive Lasix 20 mg tablet RxNorm: 230167 1 Tablet(s) QAM at 5pm 09/20/2017 03/18/2018 Inactive oxycodone 20 mg tablet RxNorm: 4153431 1/2 Tablet(s) PO Q6 as needed 09/18/2017 10/17/2017 In active oxycodone 20 mg tablet RxNorm: 8792369 1/2 Tablet(s) PO Q6 as needed 08/14/2017 09/12/2017 In active ketoconazole 2 % top ical cream RxNorm: 708694 1 Gram(s) TOP BID to affected area until healed 08/03/2017 No Stop Date Active oxycodone 20 mg tablet RxNorm: 5327734 1/2 Tablet(s) PO Q6 as needed 07/17/2017 08/13/2017 In active pen needle, diabetic 31 gauge x 5/16" RxNorm: 1 Unit Dose Miscellaneous d aily 06/25/2017 03/21/2018 In active daily use with victoza Bactrim DS 800 mg-16 0 mg tablet RxNorm: 772607 1 Tablet(s) PO BID Dr Norwood 06/25/2017 07/04/2017 In active Victoza 2-Dino 0.6 mg /0.1 mL (18 mg/3 mL) subcutaneous pen injector RxNorm: 686116 0.6 Milligram(s) SQ daily 06/25/2017 07/24/2017 Inactive doxycycline hyclate 100 mg tablet RxNorm: 357978 1 Tablet(s) PO BID Dr Norwood 06/21/2017 06/30/2017 In active oxycodone 20 mg tablet RxNorm: 1326436 1/2 Tablet(s) PO Q6 as needed 06/14/2017 07/13/2017 In active clindamycin 150 mg c apsule RxNorm: 279757 1 Capsule(s) PO Q8 06/07/2017 06/16/2017 Inactive levothyroxine 175 mc g tablet RxNorm: 435342 TAKE ONE TABLET BY [facility] DAILY 06/04/2017 09/01/2017 In active levothyroxine 175 mc g tablet RxNorm: 578799 TAKE ONE TABLET BY [facility] DAILY 06/04/2017 11/30/2017 In active bisoprolol 5 mg-hydr ochlorothiazide 6.25 mg tablet RxNorm: 466596 TAKE ONE TABLET BY MOUTH DAILY 05/24/2017 11/19/2017 Inactive oxycodone 20 mg tablet RxNorm: 1873342 1/2 Tablet(s) PO Q6 as needed 05/14/2017 06/12/2017 In active potassium chloride E R 10 mEq capsule,extended release RxNorm: 876818 TAKE ONE CAPSULE BY MOUTH DAILY NEEDED FOR 5 DAYS THEN NEEDED WITH LASIX 04/17/2017 10/13/2017 Inactive Lasix 20 mg tablet RxNorm: 850261 TAKE ONE TABLET BY MOUTH DAILY NEEDED 04/17/2017 09/19/2017 In active oxycodone 20 mg tablet RxNorm: 9602338 1/2 Tablet(s) PO Q6 as needed 04/12/2017 05/11/2017 In active Colcrys 0.6 mg tablet RxNorm: 358432 2 tabs at onset then may repeat 1 tab in 1 hours if needed- Tablet(s) PO 04/09/2017 No Stop Date Active then take daily until gout resolved Bactrim DS 800 mg-16 0 mg tablet RxNorm: 499483 1 Tablet(s) PO BID 04/09/2017 04/08/2017 Inactive dc levaquin Bactrim DS 800 mg-16 0 mg tablet RxNorm: 815501 1 Tablet(s) PO BID 04/09/2017 04/15/2017 Inactive dc levaquin Levaquin 500 mg tablet RxNorm: 333701 1 Tablet(s) PO daily 04/03/2017 04/02/2017 Inactive Levaquin 500 mg tablet RxNorm: 872672 1 Tablet(s) PO daily 04/03/2017 06/06/2017 Inactive indomethacin 25 mg c apsule RxNorm: 598578 1 Capsule(s) PO TID PRN 03/22/2017 03/22/2017 Inactive Lasix 20 mg tablet RxNorm: 182154 1 Tablet(s) PO QDAY PRN 03/22/2017 04/16/2017 Inactive daily x 5 days then as needed Levaquin 500 mg tablet RxNorm: 536449 1 Tablet(s) PO daily 03/22/2017 03/31/2017 Inactive potassium chloride E R 10 mEq capsule,extended release RxNorm: 055986 1 Capsule(s) PO QDAY PRN 03/22/2017 04/16/2017 Inactive daily x 5 days then as need ed with lasix oxycodone 20 mg tablet RxNorm: 5775162 1/2 Tablet(s) PO Q6 as needed 03/08/2017 04/06/2017 In active bisoprolol 5 mg-hydr ochlorothiazide 6.25 mg tablet RxNorm: 548530 TAKE ONE TABLET BY MOUTH DAILY 02/14/2017 05/14/2017 Inactive oxycodone 20 mg tablet RxNorm: 4841258 1/2 Tablet(s) PO Q6 as needed 02/08/2017 03/07/2017 In active oxycodone 20 mg tablet RxNorm: 6347182 1/2 Tablet(s) PO Q6 as needed 01/08/2017 02/06/2017 In active levothyroxine 175 mc g tablet RxNorm: 485815 1 Tablet(s) PO daily 12/06/2016 06/03/2017 Inactive [SAVINGS FOR NON-COVERED DRUGS -- BIN:00 6099, PCN: ASPROD1, Group: XXXXX, ID# [id number], Questions: . THIS IS NOT INSURANCE.] oxycodone 20 mg tablet RxNorm: 7193925 1/2 Tablet(s) PO Q6 as needed 12/04/2016 01/02/2017 In active oxycodone 20 mg tablet RxNorm: 0383814 1/2 Tablet(s) PO Q6 as needed 11/09/2016 12/03/2016 In active bisoprolol 5 mg-hydr ochlorothiazide 6.25 mg tablet RxNorm: 986962 TAKE ONE TABLET BY MOUTH DAILY 11/08/2016 02/05/2017 Inactive oxycodone 20 mg tablet RxNorm: 8328411 1/2 Tablet(s) PO Q6 as needed 10/05/2016 11/03/2016 In active oxycodone 20 mg tablet RxNorm: 3924809 1/2 Tablet(s) PO Q6 as needed 09/06/2016 10/04/2016 In active oxycodone 20 mg tablet RxNorm: 1959778 1/2 Tablet(s) PO Q6 as needed 08/07/2016 09/05/2016 In active oxycodone 20 mg tablet RxNorm: 0644530 1/2 Tablet(s) PO Q6 as needed 07/04/2016 08/06/2016 In active oxycodone 20 mg tablet RxNorm: 6977173 1/2 Tablet(s) PO Q6 as needed 05/29/2016 07/03/2016 In active levothyroxine 150 mc g tablet RxNorm: 567601 1 Tablet(s) PO daily 04/10/2016 04/09/2016 Inactive [SAVINGS FOR NON-COVERED DRUGS -- BIN:00 6645, PCN: ASPROD1, Group: XXXXX, ID# XXXXXXX, Questions: . THIS IS NOT INSURANCE.] oxycodone 20 mg tablet RxNorm: 9270915 1/2 Tablet(s) PO Q6 as needed 04/10/2016 05/28/2016 In active levothyroxine 150 mc g tablet RxNorm: 667072 1 Tablet(s) PO daily 04/10/2016 10/06/2016 Inactive [SAVINGS FOR NON-COVERED DRUGS -- BIN:00 5535, PCN: ASPROD1, Group: XXXXX, ID# XXXXXXX, Questions: . THIS IS NOT INSURANCE.] bisoprolol 5 mg-hydr ochlorothiazide 6.25 mg tablet RxNorm: 646504 1 Tablet(s) PO daily 02/16/2016 12/31/2017 Inactive oxycodone 20 mg tablet RxNorm: 8810438 1/2 Tablet(s) PO Q6 as needed 02/16/2016 04/09/2016 In active oxycodone 20 mg tablet RxNorm: 1882302 1/2 Tablet(s) PO Q6 as needed 01/04/2016 02/15/2016 In active bisoprolol 5 mg-hydr ochlorothiazide 6.25 mg tablet RxNorm: 177448 1 Tablet(s) PO daily 11/19/2015 01/17/2016 Inactive bisoprolol 5 mg-hydr ochlorothiazide 6.25 mg tablet RxNorm: 994146 1 Tablet(s) PO daily 11/04/2015 11/18/2015 Inactive oxycodone 20 mg tablet RxNorm: 3906993 1/2 Tablet(s) PO Q6 as needed 10/27/2015 01/03/2016 In active levothyroxine 150 mc g tablet RxNorm: 962151 1 Tablet(s) PO daily 08/26/2015 02/21/2016 Inactive [SAVINGS FOR NON-COVERED DRUGS -- BIN:00 3585, PCN: ASPROD1, Group: XXXXX, ID# XXXXXXX, Questions: . THIS IS NOT INSURANCE.] bisoprolol 5 mg-hydr ochlorothiazide 6.25 mg tablet RxNorm: 758206 1 Tablet(s) PO daily 08/26/2015 10/24/2015 Inactive oxycodone 10 mg tablet RxNorm: 3246957 1 Tablet(s) PO Q6 as needed 05/06/2015 10/26/2015 Inactive levothyroxine 150 mc g tablet RxNorm: 238413 1 Tablet(s) PO daily 02/05/2015 08/03/2015 Inactive [SAVINGS FOR NON-COVERED DRUGS -- BIN:00 3585, PCN: ASPROD1, Group: XXXXX, ID# XXXXXXX, Questions: . THIS IS NOT INSURANCE.] Vitamin D2 50,000 un it capsule RxNorm: 835074 1 Capsule(s) PO weekly 02/05/2015 05/05/2015 Inactive [SAVINGS FOR NON-COVERED DRUGS -- BIN:00 3585, PCN: ASPROD1, Group: XXXXX, ID# XXXXXXX, Questions: . THIS IS NOT INSURANCE.] Vitamin D2 50,000 un it capsule RxNorm: 411508 1 Capsule(s) PO weekly 02/05/2015 02/04/2015 Inactive bisoprolol 5 mg-hydr ochlorothiazide 6.25 mg tablet RxNorm: 375762 1 Tablet(s) PO daily 01/26/2015 02/24/2015 Inactive levothyroxine 200 mc g tablet RxNorm: 505355 1 Tablet(s) PO daily 01/26/2015 01/25/2015 Inactive levothyroxine 200 mc g tablet RxNorm: 909680 1 Tablet(s) PO every other day 01/26/2015 02/04/2015 In active [SAVINGS FOR NON-COVERED DRUGS -- BIN:00 3585, PCN: ASPROD1, Group: XXXXX, ID# XXXXXXX, Questions: . THIS IS NOT INSURANCE.] aspirin 81 mg chewab le tablet RxNorm: 364907 1 Tablet(s) PO daily No Start Date Active Plavix 75 mg tablet RxNorm: 846702 1 Tablet(s) PO daily manage by Dr Lawler as No Start Date Active simvastatin 40 mg ta blet RxNorm: 997493 1 Tablet(s) PO QHS ma naged by Dr Baig No Start Date Active Colcrys 0.6 mg tablet RxNorm: 438532 2 tabs at onset then may repeat 1 tab in 1 hours if needed- Tablet(s) PO No Start Date 04/08/2017 Inactive then take daily until gout resolved aspirin 325 mg tablet RxNorm: 349507 1 Tablet(s) PO daily No Start Date 05/03/2016 Inactive levothyroxine 75 mcg tablet RxNorm: 975388 1 Tablet(s) PO every other day No Start Date 02/04/2015 Inactive takes qod with 200mcg oxycodone 10 mg tablet RxNorm: 4966000 1 Tablet(s) PO Q6 as needed No Start Date 05/05/2015 Inactive ketoconazole 2 % top ical cream RxNorm: 874636 1 Gram(s) TOP BID to affected area [...] URIN E CULTURE See Note 03/17/2019 %Hba1C Lsg725 % HbA1c 71165-9 9.2 % 02/25/2019 %Hba1C Woo699 Gluc Ave 217 mg/dL 02/25/2019 Comp Metabolic Jdv719 NA 136 mEq/L 02/25/2019 Comp Metabolic Iae616 K 4.8 mEq/L 02/25/2019 Comp Metabolic Tsz632 CL 95 mEq/L 02/25/2019 Comp Metabolic Hpb599 CO2 36.0 mEq/L 02/25/2019 Comp Metabolic Ktb511 AN ION GAP 10 02/25/2019 Comp Metabolic Wck774 GL UCOSE 255 mg/dL 02/25/2019 Comp Metabolic Qma532 Cr eat 1.2 mg/dL 02/25/2019 Comp Metabolic Gft458 eG FR 62 ml/min/1.73m2 02/25 Comp Metabolic Bpb905 BUN 29 mg/dL 02/25/2019 Comp Metabolic Raq474 B/ C Ratio 24.0 Ratio 02/25/2019 Comp Metabolic Lez618 CA LCIUM 9.0 mg/dL 02/25/2019 Comp Metabolic Avp594 AL K PHOS 102 U/L 02/25/2019 Comp Metabolic Gqu028 T(SGOT) 12 U/L 02/25/2019 Comp Metabolic Rby230 AL T(SGPT) 9 U/L 02/25/2019 Comp Metabolic Kdf799 BI LI T 0.6 mg/dL 02/25/2019 Comp Metabolic Haj028 AL BUMIN 3.8 g/dL 02/25/2019 Comp Metabolic Bkl088 TP RO 6.6 g/dL 02/25/2019 Comp Metabolic Xyo676 GL OB 2.8 g/dL 02/25/2019 Comp Metabolic Lae005 A/ G Ratio 1.4 Ratio 02/25/2019 Comp Metabolic Zfr709 Os mo 286 mOsmo 02/25/2019 %Hba1C Tbk359 % HbA1c 44708-3 6.4 % 08/30/2018 %Hba1C Goz118 Gluc Ave 137 mg/dL 08/30/2018 Culture Urine [id number] URI NE CULTURE SEE NOTES 02/22/2018 Urine [...] 24.5 pg 02/20/2018 Cbc With Differential Ord2 [place]% 8.9 % 02/20/2018 Cbc With Differential Ord2 [...] 0.81 K/ul 02/20/2018 Cbc With Differential Ord2 [place] ABS# 0.7 K/ul 02/20/2018 Cbc With Differential Ord2 Eos ABS# 0.4 K/ul 02/20/2018 Cbc With Differential Ord2 Baso ABS# 0.0 K/ul 02/20/2018 %Hba1C Ugi919 % HbA1c 59515-0 7.7 % 02/20/2018 %Hba1C Gla238 Gluc Ave 174 mg/dL 02/20/2018 Lipase Kba870 LIPASE 17 U/L 02/20/2018 Microalbumin Kao539 Micr oAlb 6.5 mg/dL 02/20/2018 Amylase Ord34 AMYLASE 15 U/L 02/20/2018 Free T4 Wrw158 FREE T4 0.61 ng/dL 02/20/2018 Lipid Ord30 CHOL 203 mg/dL 02/20/2018 Lipid Ord30 HDL 7.0 mg/dl 02/20/2018 Lipid Ord30 TRIG 271 mg/dL 02/20/2018 Lipid Ord30 LDL 142 mg/dL 02/20/2018 Lipid Ord30 C/HDL 29.0 Ratio 02/20/2018 Comp Metabolic Obu311 NA 134 mEq/L 02/20/2018 Comp Metabolic Jiu166 K 3.6 mEq/L 02/20/2018 Comp Metabolic Zvz589 CL 96 mEq/L 02/20/2018 Comp Metabolic Zmo638 CO2 29.0 mEq/L 02/20/2018 Comp Metabolic Iwc909 AN ION GAP 13 02/20/2018 Comp Metabolic Rdp042 GL UCOSE 165 mg/dL 02/20/2018 Comp Metabolic Uxe716 Cr eat 1.2 mg/dL 02/20/2018 Comp Metabolic Myo238 eG FR 63 ml/min/1.73m2 02/20 Comp Metabolic Jug080 BUN 14 mg/dL 02/20/2018 Comp Metabolic Zdp241 B/ C Ratio 11.6 Ratio 02/20/2018 Comp Metabolic Srw950 CA LCIUM 8.5 mg/dL 02/20/2018 Comp Metabolic Yqu758 AL K PHOS 633 U/L 02/20/2018 Comp Metabolic Cfo965 T(SGOT) 112 U/L 02/20/2018 Comp Metabolic Ous734 AL T(SGPT) 148 U/L 02/20/2018 Comp Metabolic Naf760 BI LI T 6.8 mg/dL 02/20/2018 Comp Metabolic Jnq903 AL BUMIN 3.3 g/dL 02/20/2018 Comp Metabolic Bdc859 TP RO 5.9 g/dL 02/20/2018 Comp Metabolic Hyh479 GL OB 2.6 g/dL 02/20/2018 Comp Metabolic Zar902 A/ G Ratio 1.3 Ratio 02/20/2018 Comp Metabolic Fxr737 Os mo 272 mOsmo 02/20/2018 Total Psa [...] Metabolic Ord15 CALCIUM 9.2 mg/dL 11/09/2017 %Hba1C Txj705 % HbA1c 54511-5 8.0 % 11/09/2017 %Hba1C Tsr021 Gluc Ave 183 mg/dL 11/09/2017 Metabolic Ord15 [...] Ord15 CALCIUM 8.7 mg/dL 06/25/2017 Culture Wound [id number] WOU ND CULTURE SEE NOTES 04/09/2017 Culture Wound [id number] Con tinued Results 04/09/2017 Amylase Ord34 AMYLASE [...] 27.9 pg 03/22/2017 Cbc With Differential Ord2 [place]% 8.3 % 03/22/2017 Cbc With Differential Ord2 [...] 1.35 K/ul 03/22/2017 Cbc With Differential Ord2 [place] ABS# 1.4 K/ul 03/22/2017 Cbc With Differential Ord2 Eos ABS# 0.2 K/ul 03/22/2017 Cbc With Differential Ord2 Baso ABS# 0.0 K/ul 03/22/2017 Comp Metabolic Xxh643 NA 134 mEq/L 03/22/2017 Comp Metabolic Xed204 K 4.5 mEq/L 03/22/2017 Comp Metabolic Glp574 CL 93 mEq/L 03/22/2017 Comp Metabolic Fmy669 CO2 31.0 mEq/L 03/22/2017 Comp Metabolic Iuz924 AN ION GAP 15 03/22/2017 Comp Metabolic Jqc183 GL UCOSE 198 mg/dL 03/22/2017 Comp Metabolic Lug165 Cr eat 1.5 mg/dL 03/22/2017 Comp Metabolic Bjf223 eG FR 50 ml/min/1.73m2 03/22 Comp Metabolic Fdt942 BUN 32 mg/dL 03/22/2017 Comp Metabolic Kug284 B/ C Ratio 21.6 Ratio 03/22/2017 Comp Metabolic Abg546 CA LCIUM 8.4 mg/dL 03/22/2017 Comp Metabolic Dbx676 AL K PHOS 245 U/L 03/22/2017 Comp Metabolic Eaz790 T(SGOT) 18 U/L 03/22/2017 Comp Metabolic Era514 AL T(SGPT) 17 U/L 03/22/2017 Comp Metabolic Njd890 BI LI T 0.8 mg/dL 03/22/2017 Comp Metabolic Cfn657 AL BUMIN 2.9 g/dL 03/22/2017 Comp Metabolic Sid615 TP RO 6.3 g/dL 03/22/2017 Comp Metabolic Uth383 GL OB 3.4 g/dL 03/22/2017 Comp Metabolic Fwg462 A/ G Ratio 0.8 Ratio 03/22/2017 Comp Metabolic Dlh164 Os mo 281 mOsmo 03/22/2017 Lipase Ccr301 LIPASE 12 U/L 03/22/2017 Comp Metabolic Esl230 NA 142 mEq/L 03/09/2017 Comp Metabolic Jue678 K 4.8 mEq/L 03/09/2017 Comp Metabolic Ifl667 CL 103 mEq/L 03/09/2017 Comp Metabolic Owd833 CO2 30.0 mEq/L 03/09/2017 Comp Metabolic Gxh563 AN ION GAP 14 03/09/2017 Comp Metabolic Abb586 GL UCOSE 152 mg/dL 03/09/2017 Comp Metabolic Qba223 Cr eat 1.3 mg/dL 03/09/2017 Comp Metabolic Nqv527 eG FR 56 ml/min/1.73m2 03/09 Comp Metabolic Kzk988 BUN 23 mg/dL 03/09/2017 Comp Metabolic Dzq320 B/ C Ratio 17.3 Ratio 03/09/2017 Comp Metabolic Tvq637 CA LCIUM 8.5 mg/dL 03/09/2017 Comp Metabolic Rio479 AL K PHOS 97 U/L 03/09/2017 Comp Metabolic Qqm293 T(SGOT) 10 U/L 03/09/2017 Comp Metabolic Svy215 AL T(SGPT) 6 U/L 03/09/2017 Comp Metabolic Pnt790 BI LI T 0.4 mg/dL 03/09/2017 Comp Metabolic Fih635 AL BUMIN 3.4 g/dL 03/09/2017 Comp Metabolic Wtf356 TP RO 6.2 g/dL 03/09/2017 Comp Metabolic Eav008 GL OB 2.8 g/dL 03/09/2017 Comp Metabolic Xsv655 A/ G Ratio 1.2 Ratio 03/09/2017 Comp Metabolic Hbo225 Os mo 290 mOsmo 03/09/2017 Free T4 Svk055 FREE T4 0.86 ng/dL 03/08/2017 Cbc With [...] 28.2 pg 03/08/2017 Cbc With Differential Ord2 [place]% 8.7 % 03/08/2017 Cbc With Differential Ord2 [...] 1.63 K/ul 03/08/2017 Cbc With Differential Ord2 [place] ABS# 0.9 K/ul 03/08/2017 Cbc With Differential Ord2 Eos ABS# 0.5 K/ul 03/08/2017 Cbc With Differential Ord2 Baso ABS# 0.0 K/ul 03/08/2017 Tsh Ord6 hTSH II 4.52 uIU/mL 03/08/2017 %Hba1C Jpq581 % HbA1c 03702-1 8.5 % 03/08/2017 %Hba1C Chi165 Gluc Ave 197 mg/dL 03/08/2017 %Hba1C Xzx983 % HbA1c 12600-5 9.8 % 12/04/2016 %Hba1C Fjy882 Gluc Ave 235 mg/dL 12/04/2016 Tsh Ord6 hTSH II 10.65 uIU/mL 11/30/2016 Comp Metabolic Llw802 NA 134 mEq/L 11/30/2016 Comp Metabolic Aqd098 K 5.0 mEq/L 11/30/2016 Comp Metabolic Vfc000 CL 95 mEq/L 11/30/2016 Comp Metabolic Yay388 CO2 34.0 mEq/L 11/30/2016 Comp Metabolic Vay975 AN ION GAP 10 11/30/2016 Comp Metabolic Bhs419 GL UCOSE 226 mg/dL 11/30/2016 Comp Metabolic Eow862 Cr eat 1.3 mg/dL 11/30/2016 Comp Metabolic Fkc383 eG FR 56 ml/min/1.73m2 11/30 Comp Metabolic Eof380 BUN 21 mg/dL 11/30/2016 Comp Metabolic Bdx933 B/ C Ratio 15.7 Ratio 11/30/2016 Comp Metabolic Nuz893 CA LCIUM 8.9 mg/dL 11/30/2016 Comp Metabolic Ity038 AL K PHOS 112 U/L 11/30/2016 Comp Metabolic Cbo451 T(SGOT) 9 U/L 11/30/2016 Comp Metabolic Ntg971 AL T(SGPT) 7 U/L 11/30/2016 Comp Metabolic Pta262 BI LI T 0.6 mg/dL 11/30/2016 Comp Metabolic Hno897 AL BUMIN 3.6 g/dL 11/30/2016 Comp Metabolic Vde997 TP RO 6.4 g/dL 11/30/2016 Comp Metabolic Xmj112 GL OB 2.9 g/dL 11/30/2016 Comp Metabolic Boe933 A/ G Ratio 1.2 Ratio 11/30/2016 Comp Metabolic Fsm936 Os mo 278 mOsmo 11/30/2016 Lipid Ord30 [...] 30.6 pg 11/30/2016 Cbc With Differential Ord2 [place]% 7.9 % 11/30/2016 Cbc With Differential Ord2 [...] 1.34 K/ul 11/30/2016 Cbc With Differential Ord2 [place] ABS# 0.8 K/ul 11/30/2016 Cbc With Differential Ord2 Eos ABS# 0.3 K/ul 11/30/2016 Cbc With Differential Ord2 Baso ABS# 0.0 K/ul 11/30/2016 Free T4 Fjy170 FREE T4 0.89 ng/dL 11/30/2016 Review of [...] age 1006/25/2017 None Full Exam - General 1995 Constitutional general appearance Hygiene/Attention to Grooming: good [...] rate 03/22/2017 None Full Exam - General 1995 Cardiovascular [...] Date URINALYSIS NONAUTO W /O SCOPE CPT-4: 89146 03/12/2019 ADMIN PNEUMOCOCCAL V ACCINE SNOMED CT: 48958256 CPT-4: G0009 02/05/2018 Pneumococcal Polysac charide Vaccine, 23-Valent, Ad CPT-4: 60621 02/05/2018 PPPS, SUBSEQ VISIT CPT- 4: G0439 11/30/2017 URINALYSIS NONAUTO W /O SCOPE CPT-4: 85059 03/22/2017 URINALYSIS NONAUTO W /O SCOPE CPT-4: 92976 03/21/2017 PPPS, SUBSEQ VISIT CPT- 4: G0439 11/30/2016 PNEUMOCOCCAL VACC 13 JAVIER IM Formatting Model/CDA Sections, Assigned to SNOMED CT: [id number] CPT-4: [id number] 11/30/2016 ADMIN PNEUMOCOCCAL V ACCINE SNOMED CT: 10616194 CPT-4: G0009 11/30/2016 Vital Signs Date Vital 03/12/2019 Blood Pressure 1: 140/52 Code: 8480-6 Heart Rate 1: 60 bpm Height: 5'10" SpO2: 96% Weight: 02/25/2019 Blood Pressure 1: 110/58 Code: 8480-6 BMI: 38.3 Code: 18278-8 Heart Rate 1: 47 bpm Height: 5'10" SpO2: 97% Weight: 267 lbs 10/18/2018 Blood Pressure 1: 118/70 Code: 8480-6 BMI: 39.0 Code: 95987-0 Heart Rate 1: 86 bpm Height: 5'10" SpO2: 95% Weight: 272 lbs 10/14/2018 Blood Pressure 1: 120/56 Code: 8480-6 Heart Rate 1: 67 bpm Height: 5'10" SpO2: 92% 10/10/2018 Blood Pressure 1: 126/70 Code: 8480-6 BMI: 34.7 Code: 62932-2 Heart Rate 1: 80 bpm Height: 5'10" SpO2: 96% Temperature: 37.1 (C ) / 98.7 (F) Weight: 242 lbs 10/04/2018 Blood Pressure 1: 120/70 Code: 8480-6 Height: 5'10" SpO2: 96% 08/29/2018 Blood Pressure 1: 104/60 Code: 8480-6 BMI: 34.6 Code: 83448-0 Heart Rate 1: 68 bpm Height: 5'10" SpO2: 98% Weight: 241 lbs 02/25/2018 Blood Pressure 1: 120/70 Code: 8480-6 BMI: 37.0 Code: 76258-7 Heart Rate 1: 51 bpm Height: 5'10" SpO2: 97% Weight: 258 lbs 02/20/2018 Blood Pressure 1: 124/70 Code: 8480-6 BMI: 38.0 Code: 91346-6 Heart Rate 1: 60 bpm Height: 5'10" SpO2: 96% Weight: 265 lbs 02/05/2018 Blood Pressure 1: 116/66 Code: 8480-6 BMI: 38.0 Code: 49233-3 Heart Rate 1: 63 bpm Height: 5'10" SpO2: 98% Weight: 265 lbs 11/30/2017 Blood Pressure 1: 132/60 Code: 8480-6 BMI: 37.0 Code: 50446-2 Heart Rate 1: 100 bpm Height: 5'10" SpO2: 96% Waist Measure (cm): 122 cm Weight: 258 lbs 11/08/2017 Blood Pressure 1: 126/64 Code: 8480-6 BMI: 37.2 Code: 07075-1 Heart Rate 1: 92 bpm Height: 5'10" SpO2: 94% Weight: 259 lbs 09/20/2017 Blood Pressure 1: 12268 Code: 8480-6 BMI: 36.9 Code: 84114-8 Heart Rate 1: 57 bpm Height: 5'10" SpO2: 96% Weight: 257 lbs 06/25/2017 Blood Pressure 1: 12468 Code: 8480-6 BMI: 37.0 Code: 75429-7 Height: 5'10" Weight: 258 lbs 06/07/2017 Blood Pressure 1: 12264 Code: 8480-6 BMI: 37.0 Code: 78878-9 Heart Rate 1: 60 bpm Height: 5'10" SpO2: 94% Temperature: 36.4 (C ) / 97.6 (F) Weight: 258 lbs 05/03/2017 Blood Pressure 1: 118/74 Code: 8480-6 BMI: 38.2 Code: 89134-7 Heart Rate 1: 52 bpm Height: 5'10" SpO2: 98% Weight: 266 lbs 04/02/2017 Blood Pressure 1: 118/62 Code: 8480-6 BMI: 38.2 Code: 87442-0 Heart Rate 1: 53 bpm Height: 5'10" SpO2: 93% Weight: 266 lbs 03/26/2017 Blood Pressure 1: 114/62 Code: 8480-6 BMI: 38.3 Code: 56766-7 Height: 5'10" Weight: 267 lbs 03/22/2017 Blood Pressure 1: 122/64 Code: 8480-6 BMI: 40.0 Code: 33165-1 Heart Rate 1: 52 bpm Height: 5'10" SpO2: 94% Weight: 279 lbs 03/08/2017 Blood Pressure 1: 124/70 Code: 8480-6 BMI: 39.4 Code: 22122-9 Heart Rate 1: 51 bpm Height: 5'10" SpO2: 94% Weight: 274 lbs 8 oz 12/06/2016 Blood Pressure 1: 126/62 Code: 8480-6 BMI: 40.3 Code: 02149-2 Heart Rate 1: 50 bpm Height: 5'10" SpO2: 94% Weight: 281 lbs 11/30/2016 Blood Pressure 1: 112/62 Code: 8480-6 BMI: 40.3 Code: 86385-5 Heart Rate 1: 52 bpm Height: 5'10" SpO2: 93% Waist Measure (cm): 135 cm Weight: 281 lbs 11/28/2016 Blood Pressure 1: 132/72 Code: 8480-6 BMI: 40.3 Code: 17802-9 Heart Rate 1: 50 bpm Height: 5'10" Weight: 281 lbs 05/04/2016 Blood Pressure 1: 128/78 Code: 8480-6 BMI: 38.5 Code: 96426-0 Heart Rate 1: 74 bpm Height: 5'10" SpO2: 98% Weight: 268 lbs 8 oz 11/04/2015 Blood Pressure 1: 136/60 Code: 8480-6 BMI: 38.0 Code: 72597-3 Heart Rate 1: 55 bpm Height: 5'10" SpO2: 94% Weight: 265 lbs 07/30/2015 Blood Pressure 1: 128/74 Code: 8480-6 BMI: 38.0 Code: 42736-4 Heart Rate 1: 47 bpm Height: 5'10" SpO2: 97% Weight: 265 lbs 01/26/2015 Blood Pressure 1: 122/64 Code: 8480-6 BMI: 34.0 Code: 65542-1 Heart Rate 1: 68 bpm Height: 5'10" [...] regular diet 02/05/2018 None hypertension Quality lila cameron hypertension 02/05/2018 None hypertension Onset and Resolution [...] No Advance Directive data Encounters Encounter Performer Ariella woods Codes Date EST. PATIENT, LEVEL III Diagnosis: Dysuria[ICD10: R30.0] Diagnosis: Type 2 diabetes mellitus with hyperglycemia[ICD10: E11.65] Kiki Sanchez MD, [facility] CPT-4: 61501 03/12/2019 ([id number] EST. P ATIENT, LEVEL IV Diagnosis: Essential (primary) hypertension[ICD10: I10] Diagnosis: Type 2 diabetes mellitus with hyperglycemia[ICD10: E11.65] Diagnosis: Chronic pain syndrome[ICD10: G89.4] Diagnosis: Chronic kidney disease, stage 3 (moderate)[ICD10: N18.3] Sarah Sanchez MD, [facility] CPT-4: 32982 02/25/2019 52710 EST. PATIENT, LEVEL III Diagnosis: Localized edema[ICD10: R60.0] Diagnosis: Cellulitis of left lower limb[ICD10: L03.116] Diagnosis: Cellulitis of right lower limb[ICD10: L03.115] Kiki Sanchez MD, [facility] CPT-4: 61673 10/18/2018 [id number] EST. PATIENT, LEVEL III Diagnosis: Localized edema[ICD10: R60.0] Diagnosis: Cellulitis of left lower limb[ICD10: L03.116] Diagnosis: Cellulitis of right lower limb[ICD10: L03.115] Diagnosis: Chronic obstructive pulmonary disease, unspecified[ICD10: J44.9] Diagnosis: Weakness[ICD10: R53.1] Kiki Sanchez MD, [facility] CPT-4: 95003 10/14/2018 [id number] EST. PATIENT, LEVEL III Diagnosis: Localized edema[ICD10: R60.0] Diagnosis: Cellulitis of left lower limb[ICD10: L03.116] Diagnosis: Cellulitis of right lower limb[ICD10: L03.115] Kiki Sanchez MD, [facility] CPT-4: 83928 10/10/2018 ([id number]) 31402 EST. P ATIENT, LEVEL IV Diagnosis: Type 2 diabetes mellitus with foot ulcer[ICD10: E11.621] Diagnosis: Essential (primary) hypertension[ICD10: I10] Diagnosis: Malignant neoplasm of prostate[ICD10: C61] Diagnosis: Chronic obstructive pulmonary disease, unspecified[ICD10: J44.9] Diagnosis: Hypoxemia[ICD10: R09.02] Sarah Sanchez MD, [facility] CPT- 4: 12737 10/04/2018 ([id number]) 26893 EST. P ATIENT, LEVEL IV Diagnosis: Type 2 diabetes mellitus with hyperglycemia[ICD10: E11.65] Diagnosis: Essential (primary) hypertension[ICD10: I10] Diagnosis: Malignant neoplasm of prostate[ICD10: C61] Sarah Sanchez MD, [facility] CPT-4: 79445 08/29/2018 ([id number]) 93694 EST. P ATIENT, LEVEL IV Diagnosis: Malignant neoplasm of prostate[ICD10: C61] Dorene Sanchez MD, C CPT-4: 50264 02/25/2018 72021 EST. PATIENT, LEVEL IV Diagnosis: Generalized abdominal pain[ICD10: R10.84] Diagnosis: Unspecified jaundice[ICD10: R17] Diagnosis: Gross hematuria[ICD10: R31.0] Kiki Sanchez MD, [facility] CPT-4: 72885 02/20/2018 ([id number]) 12480 EST. P ATIENT, LEVEL IV Diagnosis: Type 2 diabetes mellitus with hyperglycemia[ICD10: E11.65] Diagnosis: Essential (primary) hypertension[ICD10: I10] Diagnosis: Chronic kidney disease, stage 3 (moderate)[ICD10: N18.3] Diagnosis: Chronic pain syndrome[ICD10: G89.4] Diagnosis: Other specified hypothyroidism[ICD10: E03.8] Diagnosis: Encounter for screening for malignant neoplasm of prostate[ICD10: Z12.5] Diagnosis: Encounter for immunization[ICD10: Z23] Sarah Sanchez MD, [facility] CPT-4: 53135 02/05/2018 ([id number]) 55720 EST. P ATIENT, LEVEL IV Diagnosis: Type 2 diabetes mellitus with hyperglycemia[ICD10: E11.65] Diagnosis: Essential (primary) hypertension[ICD10: I10] Dorene Sanchez MD, [facility] CPT-4: 17047 11/08/2017 ([id number]) 88884 EST. P ATIENT, LEVEL IV Diagnosis: Type 2 diabetes mellitus with hyperglycemia[ICD10: E11.65] Diagnosis: Chronic pain syndrome[ICD10: G89.4] Diagnosis: Essential (primary) hypertension[ICD10: I10] Diagnosis: Chronic kidney disease, stage 3 (moderate)[ICD10: N18.3] Diagnosis: Localized edema[ICD10: R60.0] Dorene Sanchez MD, [facility] CPT-4: 90159 09/20/2017 ([id number]) 69270 EST. P ATIENT, LEVEL III Diagnosis: Type 2 diabetes mellitus with hyperglycemia[ICD10: E11.65] Sarah Sanchez MD, [facility] CPT-4: 65580 06/25/2017 ([id number]) 35940 EST. P ATIENT, LEVEL III Diagnosis: Cellulitis of left lower limb[ICD10: L03.116] Sarah Sanchez MD, [facility] CPT-4: 50507 06/07/2017 ([id number]) 08793 EST. P ATIENT, LEVEL III Diagnosis: Localized edema[ICD10: R60.0] Diagnosis: Type 2 diabetes mellitus with foot ulcer[ICD10: E11.621] Sarah Sanchez MD, [facility] CPT-4: 93294 05/03/2017 ([id number]) 64727 EST. P ATIENT, LEVEL III Diagnosis: Cellulitis of left lower limb[ICD10: L03.116] Diagnosis: Localized edema[ICD10: R60.0] Sarah Sanchez MD, [facility] CPT- 4: 29826 04/02/2017 ([id number]) Miscellaneou s no charge Diagnosis: Localized edema[ICD10: R60.0] Diagnosis: Cellulitis of left lower limb[ICD10: L03.116] Sarah Sanchez MD, [facility] CPT-4: 64694 03/26/2017 ([id number]) 92671 EST. 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 P ATIENT, LEVEL IV Diagnosis: Type 2 diabetes mellitus with hyperglycemia[ICD10: E11.65] Diagnosis: Other specified hypothyroidism[ICD10: E03.8] Diagnosis: Essential (primary) hypertension[ICD10: I10] Sarah Sanchez MD, [facility] CPT-4: 91322 03/08/2017 ([id number]) 74131 EST. P ATIENT, LEVEL III Diagnosis: Type 2 diabetes mellitus with hyperglycemia[ICD10: E11.65] Diagnosis: Other specified hypothyroidism[ICD10: E03.8] Sarah Sanchez MD, [facility] CPT-4: 14879 12/06/2016 ([id number]) 21895 EST. P ATIENT, LEVEL IV Diagnosis: Essential (primary) hypertension[ICD10: I10] Diagnosis: Chronic kidney disease, stage 3 (moderate)[ICD10: N18.3] Dorene Sanchez MD, [facility] CPT-4: 38637 11/28/2016 ([id number]) 29226 EST. P ATIENT, LEVEL IV Diagnosis: Essential (primary) hypertension[ICD10: I10] Diagnosis: Chronic pain syndrome[ICD10: G89.4] Diagnosis: Chronic kidney disease, stage 3 (moderate)[ICD10: N18.3] Diagnosis: Vitamin B12 deficiency anemia due to intrinsic factor deficiency[ICD10: D51.0] Diagnosis: Other specified hypothyroidism[ICD10: E03.8] Dorene Sanchez MD, [facility] CPT-4: 64737 05/04/2016 53274 EST. PATIENT, LEVEL III Diagnosis: Chronic pain syndrome[ICD10: G89.4] Diagnosis: Essential (primary) hypertension[ICD10: I10] Diagnosis: Other specified hypothyroidism[ICD10: E03.8] Kiki Sanchez MD, [facility] CPT-4: 06808 11/04/2015 [id number] EST. PATIENT, LEVEL III Diagnosis: Chronic pain syndrome[ICD10: G89.4] Diagnosis: Essential (primary) hypertension[ICD10: I10] [facility] CPT-4: 74977 07/30/2015 ([id number]) OFFICE/OUTPA TIENT VISIT NEW Diagnosis: ESSENTIAL HYPERTENSION[ICD9: 401.9] Diagnosis: HYPOTHYROIDISM[ICD9: 244.9] Diagnosis: ANEMIA[ICD9: 285.9] Diagnosis: Vitamin B12 deficiency[ICD9: 266.2] Diagnosis: CHRONIC PAIN SYNDROME[ICD9: 338.4] Diagnosis: Chronic renal insufficiency, stage III (moderate)[ICD9: 585.3] Diagnosis: GOUT[ICD9: 274.9] [facility] CPT-4: 05190 01/26/2015 Plan of Care Planned Activity Notes [...] glucose control. 03/12/2019 Appointment: Kiki Menjivar WPtel[facility] (15 min) Moderate 03/12/2019 Appointment: Nurse Visit [...] over-medication. 02/25/2019 Appointment: Sarah Hernandes WPtel: [address] [facility] [phone] (15 min) Moderate 02/25/2019 Patient Education: Patient [...] discharge. 10/18/2018 Appointment: [facility]jivar [facility] [address] [facility] [place] (30 min) Complex 10/18/2018 Patient Education: [...] weakness 10/14/2018 Appointment: Kiki Menjivar WPtel: [facility]5 [facility] [address] (30 min) Complex 10/14/2018 Patient Education: Patient [...] warmth, discharge. 10/10/2018 Appointment: Kiki Menjivar WPtel: [facility]8 [facility] [address] (30 min) Complex 10/10/2018 Patient Education: Patient Medication Summary Completed 10/10/2018 Visit Plan: DM with peripheral neur opathy-paperwork completed for diabetic shoes and will fax to Dr Bauer HTN-controlled -no changes Yrlijwjed-BLZE-OSB-prostate cancer with mets- patient qualifies for oxygen-oxy gen saturation dropped to 86% on room air during ambulation but increased to 99% on 2L NC at rest-will send orders to [facility] [place] for continue oxygen at 2L per nasal cannula 10/04/2018 Appointment: Sarah Hernandes WPtel: [address] [facility] [phone] (30 min) Complex 10/04/2018 Patient Education: Patient [...] Dr Moreno 08/29/2018 Appointment: Sarah Hernandes WPtel: [address] [place], [place] [phone] [place] [address] (15 min) Moderate 08/29/2018 Patient Education: Patient Medication Summary Completed 08/29/2018 Referral: Edgard Rivera MD WPtel: Via [address] with Dr. Moreno. Patient informed. Referra l info faxed. Completed 02/27/2018 Visit Plan: Recurrent prostate canc er - I have recommended a referral to Dr. Rivera. We discussed the case at length today- he is not interested in extensive treatment, but if possible to extend his quantity and quality of life, he would like to try. 02/25/2018 Appointment: Dorene Sanchez WPtel: [address] [place], [place] [phone] (15 min) Moderate 02/25/2018 Patient Education: Patient Medication Summary Completed 02/25/2018 Care Plan: Referral Order SNOMED-CT : [id number] Pending 02/25/2018 Visit Plan: Intermittent abdominal pain, jaundice, itching - will check labs and treat as indicated - pt is to go to the ER with any acute change in symptoms or any acute concerns. 02/20/2018 Appointment: [facility] [address] [facility] (30 min) Complex 02/20/2018 Patient Education: [...] control. 02/05/2018 Appointment: Sarah Hernandes [facility]Ptel[facility] [address] [phone] [place] (30 min) Complex 02/05/2018 Patient [...] surrogate. 11/30/2017 Appointment: [facility] Hernandes [facility]Ptel[facility] [address] [phone] [facility] - Annual Wellness Visit 11/30/2017 Patient [...] 1.2 11/08/2017 [facility]ment: [facility] (15 min) Moderate 11/08/2017 Patient Education: [...] over-medication. 09/20/2017 App[facility]ment: [facility] (15 min) Moderate 09/20/2017 Patient Education: [...] control. 06/25/2017 Appointment: [facility]Ptel[facility] [address] [phone] [place] (30 min) Complex 06/25/2017 Patient Education: Patient Medication Summary Completed 06/25/2017 Appointment: [facility]el[facility] [address] [phone] [place] (30 min) Complex 06/22/2017 Visit Plan: Cellulitis - start oral antibiotics as previously directed, return to clinic as previously directed, call for acute change in symptoms, worsening redness, warmth, discharge. 06/07/2017 Appointment: Sarah Hernandes WPtel: [address] [place], [place] [phone] (30 min) Complex 06/07/2017 Patient Education: Patient Medication Summary Completed 06/07/2017 Patient Education: Obesity Completed 06/07/2017 Appointment: Dorene Sanchez WPtel: [address] [place], [place] [phone] [place] (15 min) Moderate 05/31/2017 Visit Plan: Edema-significantly imp roved-no changes Ulcer- left lower leg and foot-seeing Dr Norwood at wound care-appt scheduled with Dr Frausto for vascular evaluation 05/03/2017 Appointment: Sarah Hernandes WPtel: [address] [place], [place] [phone] (15 min) Moderate 05/03/2017 Patient Education: Patient Medication Summary Completed 05/03/2017 Patient Education: Obesity Completed 05/03/2017 Visit Plan: Nrrcqxaclc-ixzjbhrmr-rt tient to finish abx-no further treatment indicated Edema-significantly improved-no longer weeping- continue unna boots twice weekly with home health 04/02/2017 Appointment: Sarah Hernandes WPtel: [address] [place], [place] [phone] (30 min) Complex 04/02/2017 Patient Education: Patient Medication Summary Completed 04/02/2017 Patient Education: Obesity Completed 04/02/2017 Visit Plan: Cellulitis-left leg-con tinue levaquin Edema- increase lasix/potassium-consult [facility] for unna boots/dressing changes 03/26/2017 Appointment: Sarah Hernandes WPtel: [facility]3 [facility] [phone] [place] (15 min) Moderate 03/26/2017 Patient Education: [...] indomethacin-stop aleve 03/22/2017 Appointment: [facility]Ptel[facility] [address] [phone] [place] (15 min) Moderate 03/22/2017 Patient [...] control. 03/08/2017 Appointment: [facility]es [facility]Ptel[facility] [address] [phone] [place] (30 min) Complex 03/08/2017 Patient [...] surrogate. 11/30/2016 Appointment: Sarah Hernandes WPtel: [address] [phone] [place] [address] - Annual Wellness Visit 11/30/2016 Patient Education: [...] fluids. 11/28/2016 Appointment: [facility] (15 min) Moderate 11/28/2016 [...] 01/26/2015 Referral: Edgard Rivera MD WPtel: Via [facility] [address] [id number] [place] Referral Appointment Requested Instructions Comment . [...] care and medication monitoring. RETURN LATER THIS WE EK FOR FASTING [...] previous levels of control. . Chronic Pain Syndr ome - pt [...] consequences of over-medication. . Medicare Exam - to day we [...] increase in fluids. Take lasix 20mg a da y twice [...] would like to try. INCREASE LASIX AND P OTASSIUM TO TWICE DAILY [facility] -[facility] . Cellulitis-left leg-continue levaquin Edema-increase lasix/potassium-consult ridge for unna boots/dressing changes WRAP LEGS-THIGHS TO [...] stop the indomethacin-stop aleve PREVNAR 13 TODAY- GI MIKE IN OFFICE PREVNAR 23 IN ONE YEAR SHINGLES VACCINATION TO BE ADMINISTERED AT [facility] RECOMMEND OBTAINING MEDICAL POWER OF IT ANALYST AND LIVING WILL PATIENT DOES NOT HAVE [...] ADMINISTERED AT [facility] RECOMMEND OBTAINING MEDICAL POWER OF IT ANALYST AND LIVING WILL PATIENT DOES NOT HAVE [...] YEAR SHINGLES VACCINATION TO BE ADMINISTERED AT [facility] RECOMMEND OBTAINING MEDICAL POWER OF IT ANALYST AND LIVING WILL PATIENT DOES NOT HAVE [...] glucose control. WOUND CARE APPT ANTIBIOTIC TO [facility] . [...] glucose control. . Edema - pt has bee n [...] in symptoms, worsening redness, warmth, discharge. . Cellulitis-improvi ng-patient to finish abx-no further treatment indicated Edema-significantly improved-no longer weeping-continue unna boots twice weekly with home health increase the victoza to 1.2 . Hypertension [...] the victoza to 1.2 . Hypertension - wel l controlled - [...] previous levels of control. . Chronic Pain Syndr ome - pt [...] Dr Frausto for vascular evaluation . Intermittent abdom inal pain, jaundice, itching - will check labs and treat as indicated - pt is to go to the ER with any acute change in symptoms or any acute concerns. . DM with peripheral neuropathy-paperwork completed for diabetic shoes and will fax to Dr Bauer HTN-controlled -no changes Artyrsulk-CUJE-UIB-prostate cancer with mets- patient qualifies for oxygen- oxygen saturation dropped to 86% on room air during ambulation but increased to 99% on 2L NC at rest-will send orders to [facility] for continue oxygen at 2L per nasal cannula . Hypertension - wel l controlled - [...]
--- OUTSIDE RECORDS SUMMARY | 2020-01-14 19:48 | XMS REPORT | CCD ---
Author Author Ayanna Sanchez Organization Dorene Sanchez MD, [facility] Address [address] [place] [address] Phone Care Team Providers Care [employer] Installer Name Role Phone PP Unavailable CCM Unavailable Summary Purpose Interface Exchange Insurance Providers Payer name Policy type / Coverage type Covered constitution party ID Effective Begin Date Effective End Date WPS Medicare Part B Medicare Part B [id number] Unknown Unknown Family history Father Diagnosis Age At Onset Stroke Unknown Mother Diagnosis Age At Onset Stroke Unknown Diabetes mellitus Type 2 Unknown Social History Social History Element Codes Description Effective Dates Tobacco history SNOMED CT: 875451086 Currently uses smokeless tobacco Chews 05/04/2016 Marital status Unknown W idowed 01/26/2015 Number of children Unknown 3 01/26/2015 Employment Unknown Retir ed 01/26/[address]: 513481783 Never drinks alcohol quit in July 2014 [...] Date Stop Date Sta tus Fill Instructions Lasix 20 mg tablet RxNorm: 154090 TAKE ONE TABLET BY MOUTH TWICE A DAY 04/08/2019 10/04/2019 Ac tive oxycodone 10 mg tablet RxNorm: 0095448 1 Tablet(s) PO Q4 PRN 03/25/2019 No Stop Date Active gabapentin 100 mg ca psule RxNorm: 238558 TAKE ONE CAPSULE BY M OUTH IN THE EVENING AT 5PM 03/21/2019 08/17/2019 Active levothyroxine 200 mc g tablet RxNorm: 264401 TAKE ONE TABLET BY MO UTH DAILY ON AN EMPTY STOMACH 03/13/2019 12/07/2019 Active bisoprolol 5 mg-hydr ochlorothiazide 6.25 mg tablet RxNorm: 083513 TAKE ONE TABLET BY MOUTH DAILY 03/13/2019 12/07/2019 Active Keflex 500 mg capsule RxNorm: 764545 1 Capsule(s) PO TID 03/12/2019 03/21/2019 Inactive potassium chloride E R 10 mEq tablet,extended release RxNorm: 300792 TAKE ONE TABLET BY MOUTH DAILY 03/10/2019 09/05/2019 Active oxycodone 10 mg tablet RxNorm: 9641516 1 Tablet(s) PO Q4 PRN 02/25/2019 03/24/2019 Inactive oxycodone 20 mg tablet RxNorm: 5568050 1/2 Tablet(s) PO Q6 as needed 01/21/2019 02/24/2019 In active oxycodone 20 mg tablet RxNorm: 7429868 1/2 Tablet(s) PO Q6 as needed 12/18/2018 01/16/2019 In active oxycodone 20 mg tablet RxNorm: 3248129 1/2 Tablet(s) PO Q6 as needed 11/12/2018 12/11/2018 In active gabapentin 100 mg ca psule RxNorm: 029146 1 Capsule(s) BID 11/05/2018 03/20/2019 Inactive potassium chloride E R 10 mEq tablet,extended release RxNorm: 094741 TAKE ONE TABLET BY MOUTH DAILY 11/04/2018 11/19/2018 Inactive Probiotic 10 billion cell capsule RxNorm: 2195904 1 Capsule(s) PO BID 10/25/2018 10/24/2018 In active Keflex 500 mg capsule RxNorm: 022475 1 Capsule(s) PO QID 10/25/2018 10/31/2018 Inactive Probiotic 10 billion cell capsule RxNorm: 8952425 1 Capsule(s) PO BID 10/25/2018 10/31/2018 In active oxycodone 20 mg tablet RxNorm: 4136280 1/2 Tablet(s) PO Q6 as needed 10/14/2018 11/11/2018 In active Keflex 500 mg capsule RxNorm: 561640 1 Capsule(s) PO TID 10/10/2018 10/19/2018 Inactive potassium chloride E R 10 mEq tablet,extended release RxNorm: 040268 1 Tablet(s) PO daily 10/10/2018 11/03/2018 Inactive Lasix 20 mg tablet RxNorm: 448237 1 Tablet(s) PO BID 10/10/2018 04/07/2019 Inactive albuterol sulfate 2. 5 mg/3 mL (0.083 %) solution for nebulization RxNorm: 703003 1 Milliliter(s) INH TID DX J44.9 01/31/2019 Inactive gabapentin 100 mg ca psule RxNorm: 656953 TAKE ONE CAPSULE BY M OUTH IN THE EVENING AT 5PM 09/24/2018 11/04/2018 Inactive oxycodone 20 mg tablet RxNorm: 5289879 1/2 Tablet(s) PO Q6 as needed 09/12/2018 10/11/2018 In active oxycodone 20 mg tablet RxNorm: 5707610 1/2 Tablet(s) PO Q6 as needed 08/15/2018 09/11/2018 In active oxycodone 20 mg tablet RxNorm: 9512670 1/2 Tablet(s) PO Q6 as needed 07/16/2018 08/14/2018 In active oxycodone 20 mg tablet RxNorm: 8397477 1/2 Tablet(s) PO Q6 as needed 06/14/2018 07/13/2018 In active gabapentin 100 mg ca psule RxNorm: 494561 TAKE ONE CAPSULE BY M OUTH IN THE EVENING AT 5PM 05/30/2018 09/23/2018 Inactive oxycodone 20 mg tablet RxNorm: 3060360 1/2 Tablet(s) PO Q6 as needed 05/15/2018 06/13/2018 In active oxycodone 20 mg tablet RxNorm: 1944272 1/2 Tablet(s) PO Q6 as needed 04/12/2018 05/11/2018 In active oxycodone 20 mg tablet RxNorm: 8463126 1/2 Tablet(s) PO Q6 as needed 03/11/2018 04/09/2018 In active Cipro 500 mg tablet RxNorm: 045965 1 Tablet(s) PO BID 02/21/2018 02/20/2018 Inactive levothyroxine 200 mc g tablet RxNorm: 422763 1 Tablet(s) PO daily 02/21/2018 02/20/2018 Inactive Cipro 500 mg tablet RxNorm: 876261 1 Tablet(s) PO BID 02/21/2018 03/02/2018 Inactive levothyroxine 200 mc g tablet RxNorm: 113270 1 Tablet(s) PO daily 02/21/2018 02/15/2019 Inactive oxycodone 20 mg tablet RxNorm: 0612157 1/2 Tablet(s) PO Q6 as needed 02/12/2018 03/10/2018 In active oxycodone 20 mg tablet RxNorm: 9582120 1/2 Tablet(s) PO Q6 as needed 01/16/2018 02/11/2018 In active gabapentin 100 mg ca psule RxNorm: 304921 TAKE ONE CAPSULE BY M OUTH IN THE EVENING AT 5PM 01/15/2018 05/29/2018 Inactive bisoprolol 5 mg-hydr ochlorothiazide 6.25 mg tablet RxNorm: 344715 TAKE ONE TABLET BY MOUTH DAILY 01/01/2018 12/26/2018 Inactive oxycodone 20 mg tablet RxNorm: 8690123 1/2 Tablet(s) PO Q6 as needed 12/20/2017 01/14/2018 In active oxycodone 20 mg tablet RxNorm: 9816988 1/2 Tablet(s) PO Q6 as needed 11/20/2017 12/19/2017 In active Victoza 2-Dino 0.6 mg /0.1 mL (18 mg/3 mL) subcutaneous pen injector RxNorm: 867102 1.2 Milligram(s) SQ daily 11/08/2017 12/07/2017 Inactive oxycodone 20 mg tablet RxNorm: 8129864 1/2 Tablet(s) PO Q6 as needed 10/19/2017 11/17/2017 In active gabapentin 100 mg ca psule RxNorm: 809699 1 Capsule(s) PO QPM at 5 pm 09/20/2017 01/14/2018 Inactive Lasix 20 mg tablet RxNorm: 758983 1 Tablet(s) QAM at 5pm 09/20/2017 03/18/2018 Inactive oxycodone 20 mg tablet RxNorm: 9556423 1/2 Tablet(s) PO Q6 as needed 09/18/2017 10/17/2017 In active oxycodone 20 mg tablet RxNorm: 9229414 1/2 Tablet(s) PO Q6 as needed 08/14/2017 09/12/2017 In active ketoconazole 2 % top ical cream RxNorm: 753600 1 Gram(s) TOP BID to affected area until healed 08/03/2017 No Stop Date Active oxycodone 20 mg tablet RxNorm: 9810059 1/2 Tablet(s) PO Q6 as needed 07/17/2017 08/13/2017 In active pen needle, diabetic 31 gauge x 5/16" RxNorm: 1 Unit Dose Miscellaneous d aily 06/25/2017 03/21/2018 In active daily use with victoza Bactrim DS 800 mg-16 0 mg tablet RxNorm: 282536 1 Tablet(s) PO BID Dr Norwood 06/25/2017 07/04/2017 In active Victoza 2-Dino 0.6 mg /0.1 mL (18 mg/3 mL) subcutaneous pen injector RxNorm: 243700 0.6 Milligram(s) SQ daily 06/25/2017 07/24/2017 Inactive doxycycline hyclate 100 mg tablet RxNorm: 646483 1 Tablet(s) PO BID Dr Norwood 06/21/2017 06/30/2017 In active oxycodone 20 mg tablet RxNorm: 4770242 1/2 Tablet(s) PO Q6 as needed 06/14/2017 07/13/2017 In active clindamycin 150 mg c apsule RxNorm: 080495 1 Capsule(s) PO Q8 06/07/2017 06/16/2017 Inactive levothyroxine 175 mc g tablet RxNorm: 728579 TAKE ONE TABLET BY [facility] DAILY 06/04/2017 09/01/2017 In active levothyroxine 175 mc g tablet RxNorm: 119729 TAKE ONE TABLET BY MO [facility] DAILY 06/04/2017 11/30/2017 In active bisoprolol 5 mg-hydr ochlorothiazide 6.25 mg tablet RxNorm: 188805 TAKE ONE TABLET BY MOUTH DAILY 05/24/2017 11/19/2017 Inactive oxycodone 20 mg tablet RxNorm: 8717461 1/2 Tablet(s) PO Q6 as needed 05/14/2017 06/12/2017 In active potassium chloride E R 10 mEq capsule,extended release RxNorm: 914931 TAKE ONE CAPSULE BY MOUTH DAILY NEEDED FOR 5 DAYS THEN NEEDED WITH LASIX 04/17/2017 10/13/2017 Inactive Lasix 20 mg tablet RxNorm: 174396 TAKE ONE TABLET BY MOUTH DAILY NEEDED 04/17/2017 09/19/2017 In active oxycodone 20 mg tablet RxNorm: 9636359 1/2 Tablet(s) PO Q6 as needed 04/12/2017 05/11/2017 In active Colcrys 0.6 mg tablet RxNorm: 563246 2 tabs at onset then may repeat 1 tab in 1 hours if needed- Tablet(s) PO 04/09/2017 No Stop Date Active then take daily until gout resolved Bactrim DS 800 mg-16 0 mg tablet RxNorm: 859870 1 Tablet(s) PO BID 04/09/2017 04/08/2017 Inactive dc levaquin Bactrim DS 800 mg-16 0 mg tablet RxNorm: 815187 1 Tablet(s) PO BID 04/09/2017 04/15/2017 Inactive dc levaquin Levaquin 500 mg tablet RxNorm: 486556 1 Tablet(s) PO daily 04/03/2017 04/02/2017 Inactive Levaquin 500 mg tablet RxNorm: 167514 1 Tablet(s) PO daily 04/03/2017 06/06/2017 Inactive indomethacin 25 mg c apsule RxNorm: 536897 1 Capsule(s) PO TID PRN 03/22/2017 03/22/2017 Inactive Lasix 20 mg tablet RxNorm: 095614 1 Tablet(s) PO QDAY PRN 03/22/2017 04/16/2017 Inactive daily x 5 days then as needed Levaquin 500 mg tablet RxNorm: 978874 1 Tablet(s) PO daily 03/22/2017 03/31/2017 Inactive potassium chloride E R 10 mEq capsule,extended release RxNorm: 858706 1 Capsule(s) PO QDAY PRN 03/22/2017 04/16/2017 Inactive daily x 5 days then as need ed with lasix oxycodone 20 mg tablet RxNorm: 4786001 1/2 Tablet(s) PO Q6 as needed 03/08/2017 04/06/2017 In active bisoprolol 5 mg-hydr ochlorothiazide 6.25 mg tablet RxNorm: 599911 TAKE ONE TABLET BY MOUTH DAILY 02/14/2017 05/14/2017 Inactive oxycodone 20 mg tablet RxNorm: 9524832 1/2 Tablet(s) PO Q6 as needed 02/08/2017 03/07/2017 In active oxycodone 20 mg tablet RxNorm: 3243726 1/2 Tablet(s) PO Q6 as needed 01/08/2017 02/06/2017 In active levothyroxine 175 mc g tablet RxNorm: 579943 1 Tablet(s) PO daily 12/06/2016 06/03/2017 Inactive [SAVINGS FOR NON-COVERED DRUGS -- BIN:00 0330, PCN: ASPROD1, Group: XXXXX, ID# XXXXXXX, Questions: . THIS IS NOT INSURANCE.] oxycodone 20 mg tablet RxNorm: 1650290 1/2 Tablet(s) PO Q6 as needed 12/04/2016 01/02/2017 In active oxycodone 20 mg tablet RxNorm: 0840742 1/2 Tablet(s) PO Q6 as needed 11/09/2016 12/03/2016 In active bisoprolol 5 mg-hydr ochlorothiazide 6.25 mg tablet RxNorm: 573846 TAKE ONE TABLET BY MOUTH DAILY 11/08/2016 02/05/2017 Inactive oxycodone 20 mg tablet RxNorm: 5030055 1/2 Tablet(s) PO Q6 as needed 10/05/2016 11/03/2016 In active oxycodone 20 mg tablet RxNorm: 7161936 1/2 Tablet(s) PO Q6 as needed 09/06/2016 10/04/2016 In active oxycodone 20 mg tablet RxNorm: 5216611 1/2 Tablet(s) PO Q6 as needed 08/07/2016 09/05/2016 In active oxycodone 20 mg tablet RxNorm: 2929748 1/2 Tablet(s) PO Q6 as needed 07/04/2016 08/06/2016 In active oxycodone 20 mg tablet RxNorm: 8847871 1/2 Tablet(s) PO Q6 as needed 05/29/2016 07/03/2016 In active levothyroxine 150 mc g tablet RxNorm: 723566 1 Tablet(s) PO daily 04/10/2016 04/09/2016 Inactive [SAVINGS FOR NON-COVERED DRUGS -- BIN:00 3585, PCN: ASPROD1, Group: XXXXX, ID# XXXXXXX, Questions: . THIS IS NOT INSURANCE.] oxycodone 20 mg tablet RxNorm: 4489181 1/2 Tablet(s) PO Q6 as needed 04/10/2016 05/28/2016 In active levothyroxine 150 mc g tablet RxNorm: 695536 1 Tablet(s) PO daily 04/10/2016 10/06/2016 Inactive [SAVINGS FOR NON-COVERED DRUGS -- BIN:00 3585, PCN: ASPROD1, Group: XXXXX, ID# XXXXXXX, Questions: . THIS IS NOT INSURANCE.] bisoprolol 5 mg-hydr ochlorothiazide 6.25 mg tablet RxNorm: 554958 1 Tablet(s) PO daily 02/16/2016 12/31/2017 Inactive oxycodone 20 mg tablet RxNorm: 2170767 1/2 Tablet(s) PO Q6 as needed 02/16/2016 04/09/2016 In active oxycodone 20 mg tablet RxNorm: 2540314 1/2 Tablet(s) PO Q6 as needed 01/04/2016 02/15/2016 In active bisoprolol 5 mg-hydr ochlorothiazide 6.25 mg tablet RxNorm: 641347 1 Tablet(s) PO daily 11/19/2015 01/17/2016 Inactive bisoprolol 5 mg-hydr ochlorothiazide 6.25 mg tablet RxNorm: 440063 1 Tablet(s) PO daily 11/04/2015 11/18/2015 Inactive oxycodone 20 mg tablet RxNorm: 7988000 1/2 Tablet(s) PO Q6 as needed 10/27/2015 01/03/2016 In active levothyroxine 150 mc g tablet RxNorm: 901700 1 Tablet(s) PO daily 08/26/2015 02/21/2016 Inactive [SAVINGS FOR NON-COVERED DRUGS -- BIN:3584, PCN: ASPROD1, Group: XXXXX, ID# XXXXXXX, Questions: . THIS IS NOT INSURANCE.] bisoprolol 5 mg-hydr ochlorothiazide 6.25 mg tablet RxNorm: 104177 1 Tablet(s) PO daily 08/26/2015 10/24/2015 Inactive oxycodone 10 mg tablet RxNorm: 7149569 1 Tablet(s) PO Q6 as needed 05/06/2015 10/26/2015 Inactive levothyroxine 150 mc g tablet RxNorm: 985613 1 Tablet(s) PO daily 02/05/2015 08/03/2015 Inactive [SAVINGS FOR NON-COVERED DRUGS -- BIN:3584, PCN: ASPROD1, Group: XXXXX, ID# XXXXXXX, Questions: . THIS IS NOT INSURANCE.] Vitamin D2 50,000 un it capsule RxNorm: 082484 1 Capsule(s) PO weekly 02/05/2015 05/05/2015 Inactive [SAVINGS FOR NON-COVERED DRUGS -- BIN:3584, PCN: ASPROD1, Group: XXXXX, ID# XXXXXXX, Questions: . THIS IS NOT INSURANCE.] Vitamin D2 50,000 un it capsule RxNorm: 587641 1 Capsule(s) PO weekly 02/05/2015 02/04/2015 Inactive bisoprolol 5 mg-hydr ochlorothiazide 6.25 mg tablet RxNorm: 685575 1 Tablet(s) PO daily 01/26/2015 02/24/2015 Inactive levothyroxine 200 mc g tablet RxNorm: 960968 1 Tablet(s) PO daily 01/26/2015 01/25/2015 Inactive levothyroxine 200 mc g tablet RxNorm: 983285 1 Tablet(s) PO every other day 01/26/2015 02/04/2015 In active [SAVINGS FOR NON-COVERED DRUGS -- BIN:00 8612, PCN: ASPROD1, Group: XXXXX, ID# XXXXXXX, Questions: . THIS IS NOT INSURANCE.] aspirin 81 mg chewab le tablet RxNorm: 075700 1 Tablet(s) PO daily No Start Date Active Plavix 75 mg tablet RxNorm: 306140 1 Tablet(s) PO daily manage by Dr Lawler as No Start Date Active simvastatin 40 mg ta blet RxNorm: 666286 1 Tablet(s) PO QHS ma naged by Dr Baig No Start Date Active Colcrys 0.6 mg tablet RxNorm: 488550 2 tabs at onset then may repeat 1 tab in 1 hours if needed- Tablet(s) PO No Start Date 04/08/2017 Inactive then take daily until gout resolved aspirin 325 mg tablet RxNorm: 981136 1 Tablet(s) PO daily No Start Date 05/03/2016 Inactive levothyroxine 75 mcg tablet RxNorm: 071968 1 Tablet(s) PO every other day No Start Date 02/04/2015 Inactive takes qod with 200mcg oxycodone 10 mg tablet RxNorm: 7844154 1 Tablet(s) PO Q6 as needed No Start Date 05/05/2015 Inactive ketoconazole 2 % top ical cream RxNorm: 957929 1 Gram(s) TOP BID to affected area [...] URIN E CULTURE See Note 03/17/2019 %Hba1C Jxy852 % HbA1c 08637-4 9.2 % 02/25/2019 %Hba1C Plf053 Gluc Ave 217 mg/dL 02/25/2019 Comp Metabolic Acp289 NA 136 mEq/L 02/25/2019 Comp Metabolic Scd997 K 4.8 mEq/L 02/25/2019 Comp Metabolic Ydq583 CL 95 mEq/L 02/25/2019 Comp Metabolic Rku097 CO2 36.0 mEq/L 02/25/2019 Comp Metabolic Hps408 AN ION GAP 10 02/25/2019 Comp Metabolic Klj006 GL UCOSE 255 mg/dL 02/25/2019 Comp Metabolic Uxi502 Cr eat 1.2 mg/dL 02/25/2019 Comp Metabolic Xny283 eG FR 62 ml/min/1.73m2 02/25 Comp Metabolic Pjm977 BUN 29 mg/dL 02/25/2019 Comp Metabolic Inr483 B/ C Ratio 24.0 Ratio 02/25/2019 Comp Metabolic Jxb650 CA LCIUM 9.0 mg/dL 02/25/2019 Comp Metabolic Pre001 AL K PHOS 102 U/L 02/25/2019 Comp Metabolic Hkk027 T(SGOT) 12 U/L 02/25/2019 Comp Metabolic Wfj702 AL T(SGPT) 9 U/L 02/25/2019 Comp Metabolic Khl942 BI LI T 0.6 mg/dL 02/25/2019 Comp Metabolic Riy948 AL BUMIN 3.8 g/dL 02/25/2019 Comp Metabolic Jmr409 TP RO 6.6 g/dL 02/25/2019 Comp Metabolic Lcy499 GL OB 2.8 g/dL 02/25/2019 Comp Metabolic Fjq865 A/ G Ratio 1.4 Ratio 02/25/2019 Comp Metabolic Anp062 Os mo 286 mOsmo 02/25/2019 %Hba1C Wdx126 % HbA1c 42044-5 6.4 % 08/30/2018 %Hba1C Puy889 Gluc Ave 137 mg/dL 08/30/2018 Culture Urine [id number] URI NE CULTURE SEE NOTES 02/22/2018 Urine [...] 24.5 pg 02/20/2018 Cbc With Differential Ord2 Crenshaw% 8.9 % 02/20/2018 Cbc With Differential Ord2 [...] 0.81 K/ul 02/20/2018 Cbc With Differential Ord2 [place]shaw ABS# 0.7 K/ul 02/20/2018 Cbc With Differential Ord2 Eos ABS# 0.4 K/ul 02/20/2018 Cbc With Differential Ord2 Baso ABS# 0.0 K/ul 02/20/2018 %Hba1C Ziz261 % HbA1c 36578-4 7.7 % 02/20/2018 %Hba1C Lxb636 Gluc Ave 174 mg/dL 02/20/2018 Lipase Zlg315 LIPASE 17 U/L 02/20/2018 Microalbumin Iwt907 Micr oAlb 6.5 mg/dL 02/20/2018 Amylase Ord34 AMYLASE 15 U/L 02/20/2018 Free T4 Wwx769 FREE T4 0.61 ng/dL 02/20/2018 Lipid Ord30 CHOL 203 mg/dL 02/20/2018 Lipid Ord30 HDL 7.0 mg/dl 02/20/2018 Lipid Ord30 TRIG 271 mg/dL 02/20/2018 Lipid Ord30 LDL 142 mg/dL 02/20/2018 Lipid Ord30 C/HDL 29.0 Ratio 02/20/2018 Comp Metabolic Sgi930 NA 134 mEq/L 02/20/2018 Comp Metabolic Pqb468 K 3.6 mEq/L 02/20/2018 Comp Metabolic Msw727 CL 96 mEq/L 02/20/2018 Comp Metabolic Dac638 CO2 29.0 mEq/L 02/20/2018 Comp Metabolic Yzx174 AN ION GAP 13 02/20/2018 Comp Metabolic Tsq889 GL UCOSE 165 mg/dL 02/20/2018 Comp Metabolic Wck116 Cr eat 1.2 mg/dL 02/20/2018 Comp Metabolic Xsf077 eG FR 63 ml/min/1.73m2 02/20 Comp Metabolic Tik276 BUN 14 mg/dL 02/20/2018 Comp Metabolic Ocp848 B/ C Ratio 11.6 Ratio 02/20/2018 Comp Metabolic Rcj820 CA LCIUM 8.5 mg/dL 02/20/2018 Comp Metabolic Oyc057 AL K PHOS 633 U/L 02/20/2018 Comp Metabolic Zlf448 T(SGOT) 112 U/L 02/20/2018 Comp Metabolic Pqy886 AL T(SGPT) 148 U/L 02/20/2018 Comp Metabolic Dju437 BI LI T 6.8 mg/dL 02/20/2018 Comp Metabolic Nfr087 AL BUMIN 3.3 g/dL 02/20/2018 Comp Metabolic Hps289 TP RO 5.9 g/dL 02/20/2018 Comp Metabolic Fqv572 GL OB 2.6 g/dL 02/20/2018 Comp Metabolic Oba551 A/ G Ratio 1.3 Ratio 02/20/2018 Comp Metabolic Kgs868 Os mo 272 mOsmo 02/20/2018 Total Psa [...] Metabolic Ord15 CALCIUM 9.2 mg/dL 11/09/2017 %Hba1C Cbw748 % HbA1c 78809-6 8.0 % 11/09/2017 %Hba1C Gxz326 Gluc Ave 183 mg/dL 11/09/2017 Metabolic Ord15 [...] Ord15 CALCIUM 8.7 mg/dL 06/25/2017 Culture Wound [id number] WOU ND CULTURE SEE NOTES 04/09/2017 Culture Wound [id number] Con tinued Results 04/09/2017 Amylase Ord34 AMYLASE [...] 27.9 pg 03/22/2017 Cbc With Differential Ord2 Crenshaw% 8.3 % 03/22/2017 Cbc With Differential Ord2 [...] 1.35 K/ul 03/22/2017 Cbc With Differential Ord2 [place] ABS# 1.4 K/ul 03/22/2017 Cbc With Differential Ord2 Eos ABS# 0.2 K/ul 03/22/2017 Cbc With Differential Ord2 Baso ABS# 0.0 K/ul 03/22/2017 Comp Metabolic Mcs196 NA 134 mEq/L 03/22/2017 Comp Metabolic Qil524 K 4.5 mEq/L 03/22/2017 Comp Metabolic Xse413 CL 93 mEq/L 03/22/2017 Comp Metabolic Fvv299 CO2 31.0 mEq/L 03/22/2017 Comp Metabolic Xoi824 AN ION GAP 15 03/22/2017 Comp Metabolic Hah650 GL UCOSE 198 mg/dL 03/22/2017 Comp Metabolic Xfi436 Cr eat 1.5 mg/dL 03/22/2017 Comp Metabolic Sif996 eG FR 50 ml/min/1.73m2 03/22 Comp Metabolic Rxi742 BUN 32 mg/dL 03/22/2017 Comp Metabolic Qlr485 B/ C Ratio 21.6 Ratio 03/22/2017 Comp Metabolic Ibk827 CA LCIUM 8.4 mg/dL 03/22/2017 Comp Metabolic Gdf867 AL K PHOS 245 U/L 03/22/2017 Comp Metabolic Sil801 T(SGOT) 18 U/L 03/22/2017 Comp Metabolic Ryv385 AL T(SGPT) 17 U/L 03/22/2017 Comp Metabolic Kew421 BI LI T 0.8 mg/dL 03/22/2017 Comp Metabolic Mvn678 AL BUMIN 2.9 g/dL 03/22/2017 Comp Metabolic Ccj881 TP RO 6.3 g/dL 03/22/2017 Comp Metabolic Uta098 GL OB 3.4 g/dL 03/22/2017 Comp Metabolic Ggl976 A/ G Ratio 0.8 Ratio 03/22/2017 Comp Metabolic Oje596 Os mo 281 mOsmo 03/22/2017 Lipase Izr900 LIPASE 12 U/L 03/22/2017 Comp Metabolic Tvy428 NA 142 mEq/L 03/09/2017 Comp Metabolic Qii080 K 4.8 mEq/L 03/09/2017 Comp Metabolic Grf495 CL 103 mEq/L 03/09/2017 Comp Metabolic Dqe674 CO2 30.0 mEq/L 03/09/2017 Comp Metabolic Tob407 AN ION GAP 14 03/09/2017 Comp Metabolic Jmo847 GL UCOSE 152 mg/dL 03/09/2017 Comp Metabolic Myz739 Cr eat 1.3 mg/dL 03/09/2017 Comp Metabolic Ona167 eG FR 56 ml/min/1.73m2 03/09 Comp Metabolic Tqz253 BUN 23 mg/dL 03/09/2017 Comp Metabolic Uwb254 B/ C Ratio 17.3 Ratio 03/09/2017 Comp Metabolic Wwu257 CA LCIUM 8.5 mg/dL 03/09/2017 Comp Metabolic Blo028 AL K PHOS 97 U/L 03/09/2017 Comp Metabolic Fih198 T(SGOT) 10 U/L 03/09/2017 Comp Metabolic Sfx934 AL T(SGPT) 6 U/L 03/09/2017 Comp Metabolic Mdk622 BI LI T 0.4 mg/dL 03/09/2017 Comp Metabolic Guy545 AL BUMIN 3.4 g/dL 03/09/2017 Comp Metabolic Vfz952 TP RO 6.2 g/dL 03/09/2017 Comp Metabolic Cxn652 GL OB 2.8 g/dL 03/09/2017 Comp Metabolic Pxf670 A/ G Ratio 1.2 Ratio 03/09/2017 Comp Metabolic Eqj208 Os mo 290 mOsmo 03/09/2017 Free T4 Bae218 FREE T4 0.86 ng/dL 03/08/2017 Cbc With [...] 28.2 pg 03/08/2017 Cbc With Differential Ord2 Crenshaw% 8.7 % 03/08/2017 Cbc With Differential Ord2 [...] 1.63 K/ul 03/08/2017 Cbc With Differential Ord2 [place] ABS# 0.9 K/ul 03/08/2017 Cbc With Differential Ord2 Eos ABS# 0.5 K/ul 03/08/2017 Cbc With Differential Ord2 Baso ABS# 0.0 K/ul 03/08/2017 Tsh Ord6 hTSH II 4.52 uIU/mL 03/08/2017 %Hba1C Liw855 % HbA1c 12357-4 8.5 % 03/08/2017 %Hba1C Crj956 Gluc Ave 197 mg/dL 03/08/2017 %Hba1C Fij182 % HbA1c 07246-1 9.8 % 12/04/2016 %Hba1C Whd990 Gluc Ave 235 mg/dL 12/04/2016 Tsh Ord6 hTSH II 10.65 uIU/mL 11/30/2016 Comp Metabolic Iav160 NA 134 mEq/L 11/30/2016 Comp Metabolic Mmq402 K 5.0 mEq/L 11/30/2016 Comp Metabolic Tte954 CL 95 mEq/L 11/30/2016 Comp Metabolic Yhw324 CO2 34.0 mEq/L 11/30/2016 Comp Metabolic Huh075 AN ION GAP 10 11/30/2016 Comp Metabolic Hcm342 GL UCOSE 226 mg/dL 11/30/2016 Comp Metabolic Bfr347 Cr eat 1.3 mg/dL 11/30/2016 Comp Metabolic Wrj471 eG FR 56 ml/min/1.73m2 11/30 Comp Metabolic Fyb726 BUN 21 mg/dL 11/30/2016 Comp Metabolic Qza053 B/ C Ratio 15.7 Ratio 11/30/2016 Comp Metabolic Kmh420 CA LCIUM 8.9 mg/dL 11/30/2016 Comp Metabolic Jvq614 AL K PHOS 112 U/L 11/30/2016 Comp Metabolic Iiv568 T(SGOT) 9 U/L 11/30/2016 Comp Metabolic Zow566 AL T(SGPT) 7 U/L 11/30/2016 Comp Metabolic Ble616 BI LI T 0.6 mg/dL 11/30/2016 Comp Metabolic Qpx892 AL BUMIN 3.6 g/dL 11/30/2016 Comp Metabolic Iyi390 TP RO 6.4 g/dL 11/30/2016 Comp Metabolic Yhm728 GL OB 2.9 g/dL 11/30/2016 Comp Metabolic Xzu517 A/ G Ratio 1.2 Ratio 11/30/2016 Comp Metabolic Gaz101 Os mo 278 mOsmo 11/30/2016 Lipid Ord30 [...] 30.6 pg 11/30/2016 Cbc With Differential Ord2 Crenshaw% 7.9 % 11/30/2016 Cbc With Differential Ord2 [...] 1.34 K/ul 11/30/2016 Cbc With Differential Ord2 [place] ABS# 0.8 K/ul 11/30/2016 Cbc With Differential Ord2 Eos ABS# 0.3 K/ul 11/30/2016 Cbc With Differential Ord2 Baso ABS# 0.0 K/ul 11/30/2016 Free T4 Vsl026 FREE T4 0.89 ng/dL 11/30/2016 Review of [...] bilaterally 11/08/2017 None Full Exam - General 1995 Respiratory respiratory effort/rhythm Overall: no retractions 11/08/2017 [...] Date URINALYSIS NONAUTO W /O SCOPE CPT-4: 43623 03/12/2019 ADMIN PNEUMOCOCCAL V ACCINE SNOMED CT: 37152659 CPT-4: G0009 02/05/2018 Pneumococcal Polysac charide Vaccine, 23-Valent, Ad CPT-4: 68062 02/05/2018 PPPS, SUBSEQ VISIT CPT- 4: G0439 11/30/2017 URINALYSIS NONAUTO W /O SCOPE CPT-4: 71730 03/22/2017 URINALYSIS NONAUTO W /O SCOPE CPT-4: 42318 03/21/2017 PPPS, SUBSEQ VISIT CPT- 4: G0439 11/30/2016 PNEUMOCOCCAL VACC 13 JAVIER IM Formatting Model/CDA Sections, Assigned to SNOMED CT: [id number] CPT-4: [id number] 11/30/2016 ADMIN PNEUMOCOCCAL V [facility]UCIA [facility]SEC[facility]: [id number] CPT-4: G0009 11/30/2016 Vital Signs Date Vital 03/12/2019 Blood Pressure 1: 140/52 Code: 8480-6 Heart Rate 1: 60 bpm Height: 5'10" SpO2: 96% Weight: 02/25/2019 Blood Pressure 1: 110/58 Code: 8480-6 BMI: 38.3 Code: 48931-5 Heart Rate 1: 47 bpm Height: 5'10" SpO2: 97% Weight: 267 lbs 10/18/2018 Blood Pressure 1: 118/70 Code: 8480-6 BMI: 39.0 Code: 91051-1 Heart Rate 1: 86 bpm Height: 5'10" SpO2: 95% Weight: 272 lbs 10/14/2018 Blood Pressure 1: 120/56 Code: 8480-6 Heart Rate 1: 67 bpm Height: 5'10" SpO2: 92% 10/10/2018 Blood Pressure 1: 126/70 Code: 8480-6 BMI: 34.7 Code: 85616-9 Heart Rate 1: 80 bpm Height: 5'10" SpO2: 96% Temperature: 37.1 (C ) / 98.7 (F) Weight: 242 lbs 10/04/2018 Blood Pressure 1: 120/70 Code: 8480-6 Height: 5'10" SpO2: 96% 08/29/2018 Blood Pressure 1: 104/60 Code: 8480-6 BMI: 34.6 Code: 85673-1 Heart Rate 1: 68 bpm Height: 5'10" SpO2: 98% Weight: 241 lbs 02/25/2018 Blood Pressure 1: 120/70 Code: 8480-6 BMI: 37.0 Code: 04387-6 Heart Rate 1: 51 bpm Height: 5'10" SpO2: 97% Weight: 258 lbs 02/20/2018 Blood Pressure 1: 124/70 Code: 8480-6 BMI: 38.0 Code: 74164-1 Heart Rate 1: 60 bpm Height: 5'10" SpO2: 96% Weight: 265 lbs 02/05/2018 Blood Pressure 1: 116/66 Code: 8480-6 BMI: 38.0 Code: 14392-2 Heart Rate 1: 63 bpm Height: 5'10" SpO2: 98% Weight: 265 lbs 11/30/2017 Blood Pressure 1: 132/60 Code: 8480-6 BMI: 37.0 Code: 20070-9 Heart Rate 1: 100 bpm Height: 5'10" SpO2: 96% Waist Measure (cm): 122 cm Weight: 258 lbs 11/08/2017 Blood Pressure 1: 126/64 Code: 8480-6 BMI: 37.2 Code: 92810-1 Heart Rate 1: 92 bpm Height: 5'10" SpO2: 94% Weight: 259 lbs 09/20/2017 Blood Pressure 1: 122/68 Code: 8480-6 BMI: 36.9 Code: 30644-9 Heart Rate 1: 57 bpm Height: 5'10" SpO2: 96% Weight: 257 lbs 06/25/2017 Blood Pressure 1: 12468 Code: 8480-6 BMI: 37.0 Code: 89180-8 Height: 5'10" Weight: 258 lbs 06/07/2017 Blood Pressure 1: 12264 Code: 8480-6 BMI: 37.0 Code: 13456-4 Heart Rate 1: 60 bpm Height: 5'10" SpO2: 94% Temperature: 36.4 (C ) / 97.6 (F) Weight: 258 lbs 05/03/2017 Blood Pressure 1: 118/74 Code: 8480-6 BMI: 38.2 Code: 48251-5 Heart Rate 1: 52 bpm Height: 5'10" SpO2: 98% Weight: 266 lbs 04/02/2017 Blood Pressure 1: 118/62 Code: 8480-6 BMI: 38.2 Code: 93185-4 Heart Rate 1: 53 bpm Height: 5'10" SpO2: 93% Weight: 266 lbs 03/26/2017 Blood Pressure 1: 114/62 Code: 8480-6 BMI: 38.3 Code: 45771-7 Height: 5'10" Weight: 267 lbs 03/22/2017 Blood Pressure 1: 122/64 Code: 8480-6 BMI: 40.0 Code: 89950-2 Heart Rate 1: 52 bpm Height: 5'10" SpO2: 94% Weight: 279 lbs 03/08/2017 Blood Pressure 1: 124/ Code: 8480-6 BMI: 39.4 Code: 29063-5 Heart Rate 1: 51 bpm Height: 5'10" SpO2: 94% Weight: 274 lbs 8 oz 12/06/2016 Blood Pressure 1: 126/62 Code: 8480-6 BMI: 40.3 Code: 78613-5 Heart Rate 1: 50 bpm Height: 5'10" SpO2: 94% Weight: 281 lbs 11/30/2016 Blood Pressure 1: 112/62 Code: 8480-6 BMI: 40.3 Code: 58540-3 Heart Rate 1: 52 bpm Height: 5'10" SpO2: 93% Waist Measure (cm): 135 cm Weight: 281 lbs 11/28/2016 Blood Pressure 1: 132/72 Code: 8480-6 BMI: 40.3 Code: 67172-4 Heart Rate 1: 50 bpm Height: 5'10" Weight: 281 lbs 05/04/2016 Blood Pressure 1: 128/78 Code: 8480-6 BMI: 38.5 Code: 15703-7 Heart Rate 1: 74 bpm Height: 5'10" SpO2: 98% Weight: 268 lbs 8 oz 11/04/2015 Blood Pressure 1: 136/60 Code: 8480-6 BMI: 38.0 Code: 37762-4 Heart Rate 1: 55 bpm Height: 5'10" SpO2: 94% Weight: 265 lbs 07/30/2015 Blood Pressure 1: 128/74 Code: 8480-6 BMI: 38.0 Code: 58307-8 Heart Rate 1: 47 bpm Height: 5'10" SpO2: 97% Weight: 265 lbs 01/26/2015 Blood Pressure 1: 122/64 Code: 8480-6 BMI: 34.0 Code: 09420-4 Heart Rate 1: 68 bpm Height: 5'10" [...] Encounters Encounter Performer Loca tion Codes Date [id number] EST. PATIENT, LEVEL III Diagnosis: Dysuria[ICD10: R30.0] Diagnosis: Type 2 diabetes mellitus with hyperglycemia[ICD10: E11.65] Kiki Sanchez MD, [facility] CPT-4: 45821 03/12/2019 ([id number]) 44224 EST. P ATIENT, LEVEL IV Diagnosis: Essential (primary) hypertension[ICD10: I10] Diagnosis: Type 2 diabetes mellitus with hyperglycemia[ICD10: E11.65] Diagnosis: Chronic pain syndrome[ICD10: G89.4] Diagnosis: Chronic kidney disease, stage 3 (moderate)[ICD10: N18.3] Sarah Sanchez MD, [facility] CPT-4: 18926 02/25/2019 81116 EST. PATIENT, LEVEL III Diagnosis: Localized edema[ICD10: R60.0] Diagnosis: Cellulitis of left lower limb[ICD10: L03.116] Diagnosis: Cellulitis of right lower limb[ICD10: L03.115] Kiki Sanchez MD, [facility] CPT-4: 41949 10/18/2018 68184 EST. PATIENT, LEVEL III Diagnosis: Localized edema[ICD10: R60.0] Diagnosis: Cellulitis of left lower limb[ICD10: L03.116] Diagnosis: Cellulitis of right lower limb[ICD10: L03.115] Diagnosis: Chronic obstructive pulmonary disease, unspecified[ICD10: J44.9] Diagnosis: Weakness[ICD10: R53.1] Kiki Sanchez MD, [facility] CPT-4: 72322 10/14/2018 92954 EST. PATIENT, LEVEL III Diagnosis: Localized edema[ICD10: R60.0] Diagnosis: Cellulitis of left lower limb[ICD10: L03.116] Diagnosis: Cellulitis of right lower limb[ICD10: L03.115] Kiki Sanchez MD, [facility] CPT-4: 25947 10/10/2018 ([id number]) 71226 EST. P ATIENT, LEVEL IV Diagnosis: Type 2 diabetes mellitus with foot ulcer[ICD10: E11.621] Diagnosis: Essential (primary) hypertension[ICD10: I10] Diagnosis: Malignant neoplasm of prostate[ICD10: C61] Diagnosis: Chronic obstructive pulmonary disease, unspecified[ICD10: J44.9] Diagnosis: Hypoxemia[ICD10: R09.02] Sarah Sanchez MD, [facility] CPT- 4: 15187 10/04/2018 ([id number]) 91407 EST. P ATIENT, LEVEL IV Diagnosis: Type 2 diabetes mellitus with hyperglycemia[ICD10: E11.65] Diagnosis: Essential (primary) hypertension[ICD10: I10] Diagnosis: Malignant neoplasm of prostate[ICD10: C61] Sarah Sanchez MD, [facility] CPT-4: 57924 08/29/2018 ([id number]) 93310 EST. P ATIENT, LEVEL IV Diagnosis: Malignant neoplasm of prostate[ICD10: C61] Dorene Sanchez MD, C CPT-4: 23867 02/25/2018 05393 EST. PATIENT, LEVEL IV Diagnosis: Generalized abdominal pain[ICD10: R10.84] Diagnosis: Unspecified jaundice[ICD10: R17] Diagnosis: Gross hematuria[ICD10: R31.0] Kiki Sanchez MD, [facility] CPT-4: 00695 02/20/2018 ([id number]) 54769 EST. P ATIENT, LEVEL IV Diagnosis: Type 2 diabetes mellitus with hyperglycemia[ICD10: E11.65] Diagnosis: Essential (primary) hypertension[ICD10: I10] Diagnosis: Chronic kidney disease, stage 3 (moderate)[ICD10: N18.3] Diagnosis: Chronic pain syndrome[ICD10: G89.4] Diagnosis: Other specified hypothyroidism[ICD10: E03.8] Diagnosis: Encounter for screening for malignant neoplasm of prostate[ICD10: Z12.5] Diagnosis: Encounter for immunization[ICD10: Z23] Sarah Sanchez MD, [facility] CPT-4: 13626 02/05/2018 ([id number]) 43377 EST. P ATIENT, LEVEL IV Diagnosis: Type 2 diabetes mellitus with hyperglycemia[ICD10: E11.65] Diagnosis: Essential (primary) hypertension[ICD10: I10] Dorene Sanhcez MD, C CPT-4: 57147 11/08/2017 ([id number]) 76111 EST. P ATIENT, LEVEL IV Diagnosis: Type 2 diabetes mellitus with hyperglycemia[ICD10: E11.65] Diagnosis: Chronic pain syndrome[ICD10: G89.4] Diagnosis: Essential (primary) hypertension[ICD10: I10] Diagnosis: Chronic kidney disease, stage 3 (moderate)[ICD10: N18.3] Diagnosis: Localized edema[ICD10: R60.0] Dorene Sanchez MD, [facility] CPT-4: 22340 09/20/2017 ([id number]) 96511 EST. P ATIENT, LEVEL III Diagnosis: Type 2 diabetes mellitus with hyperglycemia[ICD10: E11.65] Sarah Sanchez MD, [facility] CPT-4: 31734 06/25/2017 ([id number]) 76148 EST. P ATIENT, LEVEL III Diagnosis: Cellulitis of left lower limb[ICD10: L03.116] Sarah Sanchez MD, [facility] CPT-4: 60083 06/07/2017 ([id number]) 67027 EST. P ATIENT, LEVEL III Diagnosis: Localized edema[ICD10: R60.0] Diagnosis: Type 2 diabetes mellitus with foot ulcer[ICD10: E11.621] Sarah Sanchez MD, [facility] CPT-4: 80391 05/03/2017 ([id number]) 62489 EST. P ATIENT, LEVEL III Diagnosis: Cellulitis of left lower limb[ICD10: L03.116] Diagnosis: Localized edema[ICD10: R60.0] Sarah Sanchez MD, [facility] CPT- 4: 31611 04/02/2017 ([id number]) Miscellaneou s no charge Diagnosis: Localized edema[ICD10: R60.0] Diagnosis: Cellulitis of left lower limb[ICD10: L03.116] Sarah Sanchez MD, [facility] CPT-4: 90324 03/26/2017 ([id number]) 43090 EST. 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 P ATIENT, LEVEL IV Diagnosis: Type 2 diabetes mellitus with hyperglycemia[ICD10: E11.65] Diagnosis: Other specified hypothyroidism[ICD10: E03.8] Diagnosis: Essential (primary) hypertension[ICD10: I10] Sarah Sanchez MD, [facility] CPT-4: 85703 03/08/2017 ([id number]) 11837 EST. P ATIENT, LEVEL III Diagnosis: Type 2 diabetes mellitus with hyperglycemia[ICD10: E11.65] Diagnosis: Other specified hypothyroidism[ICD10: E03.8] Sarah Sanchez MD, [facility] CPT-4: 61995 12/06/2016 ([id number]) 57784 EST. P ATIENT, LEVEL IV Diagnosis: Essential (primary) hypertension[ICD10: I10] Diagnosis: Chronic kidney disease, stage 3 (moderate)[ICD10: N18.3] Dorene Sanchez MD, [facility] CPT-4: 87146 11/28/2016 ([id number]) 54391 EST. P ATIENT, LEVEL IV Diagnosis: Essential (primary) hypertension[ICD10: I10] Diagnosis: Chronic pain syndrome[ICD10: G89.4] Diagnosis: Chronic kidney disease, stage 3 (moderate)[ICD10: N18.3] Diagnosis: Vitamin B12 deficiency anemia due to intrinsic factor deficiency[ICD10: D51.0] Diagnosis: Other specified hypothyroidism[ICD10: E03.8] Dorene Sanchez MD, [facility] CPT-4: 83233 05/04/2016 31920 EST. PATIENT, LEVEL III Diagnosis: Chronic pain syndrome[ICD10: G89.4] Diagnosis: Essential (primary) hypertension[ICD10: I10] Diagnosis: Other specified hypothyroidism[ICD10: E03.8] Kiki Sanchez MD, [facility] CPT-4: 26578 11/04/2015 56499 EST. PATIENT, LEVEL III Diagnosis: Chronic pain syndrome[ICD10: G89.4] Diagnosis: Essential (primary) hypertension[ICD10: I10] Kiki Sanchez MD, [facility] CPT-4: 43110 07/30/2015 ([id number]) OFFICE/OUTPA TIENT VISIT NEW Diagnosis: ESSENTIAL HYPERTENSION[ICD9: 401.9] Diagnosis: HYPOTHYROIDISM[ICD9: 244.9] Diagnosis: ANEMIA[ICD9: 285.9] Diagnosis: Vitamin B12 deficiency[ICD9: 266.2] Diagnosis: CHRONIC PAIN SYNDROME[ICD9: 338.4] Diagnosis: Chronic renal insufficiency, stage III (moderate)[ICD9: 585.3] Diagnosis: GOUT[ICD9: 274.9] Dorene Sanchez MD, [facility] CPT-4: 82916 01/26/2015 Plan of Care Planned Activity Notes [...] glucose control. 03/12/2019 Appointment: Kiki Menjivar WPtel: [address] [place], [place] [address] (15 min) Moderate 03/12/2019 Appointment: Nurse Visit [...] over-medication. 02/25/2019 Appointment: Sarah Hernandes WPtel: [phone] [phone] (15 min) Moderate 02/25/2019 Patient Education: Patient [...] discharge. 10/18/2018 Appointment: Kiki Menjivar WPtel: [phone] [facility] (30 min) Complex 10/18/2018 Patient Education: Patient [...] to weakness 10/14/2018 Appointment: Kiki Menjivar WPtel[facility] (30 min) Complex 10/14/2018 Patient Education: Patient Medication Summary Completed 10/14/2018 Visit Plan: Dr. Sanchez in to [facility] patient Edema - pt has been advised [...] discharge. 10/10/2018 Appointment: [phone] (30 min) Complex 10/10/2018 Patient Education: Patient Medication Summary Completed 10/10/2018 Visit Plan: DM with peripheral neur opathy-paperwork completed for diabetic shoes and will fax to Dr Bauer HTN-controlled -no changes Dmkpshwno-CERK-HJA-prostate cancer with mets- patient qualifies for oxygen-oxy gen saturation dropped to 86% on room air during ambulation but increased to 99% on 2L NC at rest-will send orders to [facility] for continue oxygen at 2L per nasal cannula 10/04/2018 Appointment: Sarah Hernandes WPtel: [phone] (30 min) Complex 10/04/2018 Patient Education: [...] Sarah Hernandes WPtel: [phone] (15 min) Moderate 08/29/2018 Patient Education: Patient Medication Summary Completed 08/29/2018 Referral: Edgard Rivera MD WPtel: Via [address] with Dr. Moreno. Patient informed. Referra l info faxed. Completed 02/27/2018 Visit Plan: Recurrent prostate canc er - I have recommended a referral to Dr. Rivera. We discussed the case at length today- he is not interested in extensive treatment, but if possible to extend his quantity and quality of life, he would like to try. 02/25/2018 Appointment: Dorene Sanchez WPtel: [address] [place], [place] [phone] (15 min) Moderate 02/25/2018 Patient Education: Patient Medication Summary Completed 02/25/2018 Care Plan: Referral Order SNOMED-CT : [id number] Pending 02/25/2018 Visit Plan: Intermittent abdominal pain, jaundice, itching - will check labs and treat as indicated - pt is to go to the ER with any acute change in symptoms or any acute concerns. 02/20/2018 Appointment: [facility]el[phone] (30 min) Complex 02/20/2018 Patient Education: [...] control. 02/05/2018 Appointment: Sarah Hernand[facility]Ptel[phone] [phone] (30 min) Complex 02/05/2018 Patient Education: [...] paperwork for health care surrogate. 11/30/2017 Appointment: Cecilio Sarah WPtel: [phone] [phone] - Annual Wellness Visit 11/30/2017 Patient [...] to 1.2 11/08/2017 Appointment: [phone] (15 min) Moderate 11/08/2017 [...] over-medication. 09/20/2017 Appointment: Dorene Sanchez WPtel: [phone] [facility] (15 min) Moderate 09/20/2017 Patient Education: Patient [...] Sarah Hernandes WPtel: [phone] (30 min) Complex 06/25/2017 Patient Education: Patient Medication Summary Completed 06/25/2017 Appointment: Sarah Hernandes WPtel: [phone] (30 min) Complex 06/22/2017 Visit Plan: Cellulitis - start oral antibiotics as previously directed, return to clinic as previously directed, call for acute change in symptoms, worsening redness, warmth, discharge. 06/07/2017 Appointment: Sarah Hernandes WPtel: [phone] (30 min) Complex 06/07/2017 Patient Education: Patient Medication Summary Completed 06/07/2017 Patient Education: Obesity Completed 06/07/2017 Appointment: Dorene Sanchez WPtel: [facility] (15 min) Moderate 05/31/2017 Visit Plan: Edema-significantly imp roved-no changes Ulcer- left lower leg and foot-seeing Dr Norwood at wound care-appt scheduled with Dr Frausto for vascular evaluation 05/03/2017 Appointment: Sarah Hernandes WPtel: [phone] (15 min) Moderate 05/03/2017 Patient Education: Patient Medication Summary Completed 05/03/2017 Patient Education: Obesity Completed 05/03/2017 Visit Plan: Dvuuizaezo-pwllhemkr-ro tient to finish abx-no further treatment indicated Edema-significantly improved-no longer weeping- continue unna boots twice weekly with home health 04/02/2017 Appointment: Sarah Hernandes WPtel: [phone] [place] (30 min) Complex 04/02/2017 Patient Education: Patient Medication Summary Completed 04/02/2017 Patient Education: Obesity Completed 04/02/2017 Visit Plan: Cellulitis-left leg-con tinue levaquin Edema- increase lasix/potassium-consult [facility] for unna boots/dressing changes 03/26/2017 Appointment: Sarah Hernandes WPtel: [phone] [place] (15 min) Moderate 03/26/2017 Patient [...] aleve 03/22/2017 Appointment: Sarah Hernandes WPtel[phone] [phone] (15 min) Moderate 03/22/2017 Patient Education: [...] control. 03/08/2017 Appointment: Sarah Hernandes WPtel[facility] [phone] [phone] (30 min) Complex 03/08/2017 Patient Education: [...] surrogate. 11/30/2016 Appointment: Sarah Hernandes WPtel[facility] [phone] [phone] [facility] - Annual Wellness Visit [...] fluids. 11/28/2016 Appointment: Dore[facility] Sanchez [phone] (15 min) Moderate 11/28/2016 Patient Education: Patient [...] 01/26/2015 Referral: Edgard Rivera MD WPtel: [address] [place] [address] [place] [id number] [place] Referral Appointment Requested Instructions Comment WRAP [...] GFR 50-recommend patient stop the indomethacin-stop aleve WOUND CARE APPT ANTIBIOTIC TO [facility] . [...] boots twice weekly with home health . Hypertension - wel l controlled - [...] options with Dr Josh SHARP 13 TODAY- GI MIKE IN OFFICE ARON 23 IN ONE YEAR SHINGLES VACCINATION TO BE ADMINISTERED AT [facility] RECOM[facility]END OBTAINING MEDICAL POWER OF LAWYER REAL ESTATE AND LIVING WILL PATIENT DOES NOT HAVE [...] for health care surrogate. . Chronic Pain Syndr ome - pt [...] YEAR SHINGLES VACCINATION TO BE ADMINISTERED AT [facility] RECOMMEND OBTAINING MEDICAL POWER OF LAWYER REAL ESTATE AND LIVING WILL PATIENT DOES NOT HAVE [...] fax to Dr Bauer HTN-controlled -no changes Ckuajodgs-AHTR-KRT-prostate cancer with mets- patient qualifies for oxygen- [...] or any acute concerns. PREVNAR 13 TODAY- GI MIKE IN OFFICE PREVNAR 23 IN ONE YEAR SHINGLES VACCINATION TO BE ADMINISTERED AT [facility] RECOMMEND OBTAINING MEDICAL POWER OF LAWYER REAL ESTATE AND LIVING WILL PATIENT DOES NOT HAVE [...] P OTASSIUM TO [facility] DAILY [facility] -WOUND CARE . Cellulitis-left leg-continue levaquin Edema-increase lasix/potassium-consult [facility] for unna boots/dressing changes . [...] labs - may need b12 shots. . Edema - pt has bee n [...] to assist with repositioning due to weakness Repeat labs at next appointment . Edema-significantly [...]
[2020-01-14 20:03] LABS: BACTERIA,URINE TRACE /HPF; RBC,URINE 0-2 /HPF
--- OUTSIDE RECORDS SUMMARY | 2020-01-14 20:08 | XMS REPORT | Continuity of Care Document ---
Author Organization Unknown Address Unknown Phone Unavailable Allergies Active Description Code Type Severity Reaction Onset Reported/Identified Relationship to Patient Clinical Status Yes NKANo Known Allergies NKA Miscellaneous Allergy Unknown N/A 04/26/2006 Medications There is no data. 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 USE DISORDER 01/31/2012 Ot 401.9 HYPE RTENSION NOS 01/31/2012 Ot V58.69 OTH MED,LT,CURRENT USE 05/13/2012 Ot 185 MALIGN NEOPL PROSTATE 05/13/2012 Ot V58.0 ENCO UNTER FOR RADIOTHERAPY 10/13/2012 Ot 185 MALIGN NEOPL [...] 07/29/2014 KIMBERLY RENEE MD Ot 782.3 07/29/2014 JAMES RENEE MDHLEEN M Ot 790.6 07/29/2014 VÍCTOR RICHARD, KIMBERLY [...] 327.23 OBSTRUCTIVE SLEEP APNEA (ADULT) (PEDIATR 08/01/2014 KIMEBRLY RENEE MD Ot 401.9 HYPERTENSION NOS 08/01/2014 KIMBERLY RENEE MD Ot 414.01 CORONARY ATHEROSCLEROSIS OF [place] CORON 08/01/2014 KIMBERLY RENEE MD Ot 425.4 [...] A Ot 536.8 02/04/2015 FLORENCE RICHARD, GAVIN A Ot E934.0 02/05/2015 FLORENCE RICHARD, GAVIN A Ot 280.9 02/05/2015 FLORENCE RICHARD, GAVIN Freed [...] A Ot 536.8 03/26/2015 FLORENCE RICHARD, GAVIN A Ot E934.0 05/02/2015 FLORENCE RICHARD, GAVIN Freed Ot 280.9 IRON DEFIC ANEMIA NOS 05/02/2015 FLORENCE RICHARD, GAVIN Freed Ot 536.8 STOMACH FUNCTION DIS NEC 05/02/2015 FLORENCE RICHARD, GAVIN Freed Ot E934.0 ADV EFF IRON COMPOUNDS 04/09/2017 Ot 185 MALIGN NEOPL PROSTATE 04/09/2017 Ot 553.3 DIAP HRAGMATIC HERNIA 04/09/2017 Ot 185 MALIGN NEOPL PROSTATE 04/09/2017 GAVIN HENRIQUEZ MD Ot 280.9 IRON DEFIC ANEMIA NOS 04/09/2017 GAVIN HENRIQUEZ MD Ot 536.8 STOMACH FUNCTION DIS NEC 04/09/2017 GAVIN HENRIQUEZ MD Ot E934.0 ADV EFF IRON COMPOUNDS 04/11/2017 LILLIAN PARSONS MD Ot E11.621 TYPE 2 DIABETES MELLITUS WITH FOOT ULCER 04/11/2017 LILLIAN PARSONS MD, Ot E11.65 TYPE 2 DIABETES MELLITUS WITH HYPERGLYCE 04/11/2017 LILLIAN PARSONS MD Ot 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 04/11/2017 LILLIAN PARSONS MD Ot 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 04/11/2017 LILLIAN PARSONS MD, Ot I87.323 CHRONIC VENOUS [...] 04/12/2017 LILLIAN PARSONS MD Ot 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 04/12/2017 LILLIAN PARSONS MD Ot 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 04/12/2017 LILLIAN PARSONS MD Ot I87.323 CHRONIC VENOUS HTN W INFLAMMATION OF [place] 04/12/2017 LILLIAN PARSONS MD, Ot L97.412 NON-PRS CHR ULCER OF RIGHT HEEL AND MIDF 04/12/2017 LILLIAN PARSONS MD Ot L97.512 NON-PRS CHRONIC ULCER OTH PRT RIGHT FOOT 04/12/2017 Ot 185 MALIGN NEOPL PROSTATE 04/12/2017 Ot 553.3 DIAP HRAGMATIC HERNIA 04/12/2017 Ot 185 MALIGN NEOPL PROSTATE [...] 04/12/2017 LILLIAN PARSONS MD Ot 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 04/12/2017 LILLIAN PARSONS MD Ot 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 04/12/2017 LILLIAN PARSONS MD, Ot I87.323 CHRONIC VENOUS HTN W INFLAMMATION OF [place] 04/12/2017 LILLIAN PARSONS MD, Ot L97.412 NON-PRS CHR ULCER OF RIGHT HEEL AND MIDF 04/12/2017 LILLIAN PARSONS MD, Ot L97.512 NON-PRS CHRONIC ULCER OTH PRT RIGHT FOOT 04/16/2017 LILLIAN PARSONS MD, Ot E11.621 TYPE 2 DIABETES MELLITUS WITH FOOT ULCER 04/16/2017 LILLIAN PARSONS MD, Ot E11.65 TYPE 2 DIABETES MELLITUS WITH HYPERGLYCE 04/16/2017 LILLIAN PARSONS MD, Ot 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 04/16/2017 LILLIAN PARSONS MD Ot 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 04/16/2017 LILLIAN PARSONS MD, Ot I87.323 CHRONIC VENOUS [...] CCDS Ot I25.10 ATHSCL HEART DISEASE OF [place] CORONARY 04/24/2017 DOMINIC RICHARD FACC, ALI FACP CCDS Ot I70.213 ATHSCL [place] ARTERIES OF EXTRM W INTRMT 04/24/2017 DOMINIC RICHARD FACC, JORGE A FACP CCDS Ot 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 04/24/2017 DOMINIC RICHARD FACC, ALI FACP CCDS Ot 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 04/24/2017 [...] FACC, ALI FACP CCDS Ot Z79.899 OTHER PEDIATRIC IMMUNOLOGIST (CURRENT) DRUG THERAPY 04/24/2017 DOMINIC RICHARD FACC, ALI FACP CCDS Ot Z95.5 PRESENCE OF CORONARY ANGIOPLASTY IMPLANT 05/01/2017 DOMINIC RICHARD FACC, ALI FACP CCDS Ot I10 ESSENTIAL (PRIMARY) HYPERTENSION 05/01/2017 DOMINIC RICHARD FACC, ALI FACP CCDS Ot I25.10 ATHSCL HEART DISEASE OF [place] CORONARY 05/01/2017 DOMINIC RICHARD FACC, ALI FACP CCDS Ot I70.213 ATHSCL [place] ARTERIES OF EXTRM W INTRMT 05/01/2017 DOMINIC RICHARD FACC, ALI FACP CCDS Ot 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 05/01/2017 DOMINIC RICHARD FACC, ALI FACP CCDS Ot 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 05/01/2017 DOMINIC RICHARD FACC, ALI FACP CCDS Ot L97.429 NON-PRS CHRONIC ULCER OF LEFT HEEL AND M 05/01/2017 DOIMNIC RICHARD FACC, ALI FACP CCDS Ot L97.529 NON-PRESSURE CHRONIC ULCER OTH PRT LEFT 05/01/2017 DOMINIC RICHARD FACC, ALI FACP CCDS Ot M10.9 GOUT, UNSPECIFIED 05/01/2017 DOMINIC RICHARD FACC, JORGE A FACP CCDS Ot R73.09 OTHER ABNORMAL GLUCOSE 05/01/2017 DOMINIC RICHARD FAC, ALI FACP CCDS Ot Z72.0 TOBACCO USE 05/01/2017 DOMINIC RICHARD [facility], ALI FACP CCDS Ot Z79.899 OTHER PEDIATRIC IMMUNOLOGIST (CURRENT) DRUG THERAPY 05/01/2017 DOMINIC RICHARD [facility], ALI FACP CCDS Ot Z95.5 PRESENCE OF CORONARY ANGIOPLASTY IMPLANT 05/10/2017 INDERJIT DAWSON RETAIL DIRECTOR Ot E11.621 TYPE 2 DIABETES MELLITUS WITH FOOT ULCER 05/10/2017 INDERJIT DAWSON RETAIL DIRECTOR Ot E11.65 TYPE 2 DIABETES MELLITUS WITH HYPERGLYCE 05/10/2017 INDERJIT DAWSON RETAIL DIRECTOR Ot 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 05/10/2017 INDERJIT DAWSON RETAIL DIRECTOR Ot 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 05/10/2017 INDERJIT DAWSON RETAIL DIRECTOR Ot I87.323 CHRONIC VENOUS HTN W INFLAMMATION OF [place] 05/10/2017 INDERJIT DAWSON RETAIL DIRECTOR Ot L97.422 NON-PRS CHR ULCER OF LEFT HEEL AND MIDFO 05/10/2017 INDERJIT DAWSON RETAIL DIRECTOR Ot L97.522 NON-PRS CHRONIC ULCER OTH PRT LEFT FOOT 05/16/2017 LILLIAN PARSONS MD Ot E11.621 TYPE 2 DIABETES MELLITUS WITH FOOT ULCER 05/16/2017 LILLIAN PARSONS MD, Ot E11.65 TYPE 2 DIABETES MELLITUS WITH HYPERGLYCE 05/16/2017 LILLIAN PARSONS MD Ot 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 05/16/2017 LILLIAN PARSONS MD Ot 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 05/16/2017 [...] 05/23/2017 LILLIAN PARSONS MD Ot 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 05/23/2017 LILLIAN PARSONS MD Ot 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 05/23/2017 [...] 05/23/2017 LILLIAN PARSONS MD, Ot 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 05/23/2017 LILLIAN PARSONS MD, Ot 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 05/23/2017 LILLIAN PARSONS MD Ot I87.323 CHRONIC VENOUS HTN W INFLAMMATION OF [place] 05/23/2017 LILLIAN PARSONS MD Ot L97.422 NON-PRS CHR ULCER OF LEFT HEEL AND MIDFO 05/23/2017 LILLIAN PARSONS MD Ot L97.522 NON-PRS CHRONIC ULCER OTH PRT LEFT FOOT 05/23/2017 LILLIAN PARSONS MD Ot R60 .0 LOCALIZED EDEMA 06/01/2017 INDERJIT DAWSON RETAIL DIRECTOR Ot E11.621 TYPE 2 DIABETES MELLITUS WITH FOOT ULCER 06/01/2017 INDERJIT DAWSON RETAIL DIRECTOR Ot E11.65 TYPE 2 DIABETES MELLITUS WITH HYPERGLYCE 06/01/2017 INDERJIT DAWSON RETAIL DIRECTOR Ot 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 06/01/2017 INDERJIT DAWSON APRN Ot 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 06/01/2017 INDERJIT DAWSON APRN Ot I87.323 CHRONIC VENOUS HTN W INFLAMMATION OF [place] 06/01/2017 INDERJIT DAWSON RETAIL DIRECTOR Ot L97.422 NON-PRS CHR ULCER OF LEFT HEEL AND MIDFO 06/01/2017 INDERJIT DAWSON APRN Ot L97.522 NON-PRS CHRONIC ULCER OTH PRT LEFT FOOT 06/03/2017 ISSA MD, LILLIAN G Ot E11.621 TYPE 2 DIABETES MELLITUS WITH FOOT ULCER 06/03/2017 LILLIAN PARSONS MD, Ot E11.65 TYPE 2 DIABETES MELLITUS WITH HYPERGLYCE 06/03/2017 LILLIAN PARSONS MD Ot 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 06/03/2017 LILLIAN PRASONS MD Ot 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 06/03/2017 [...] 06/08/2017 LILLIAN PARSONS MD Ot 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 06/08/2017 LILLIAN PARSONS MD Ot 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 06/08/2017 [...] 06/19/2017 LILLIAN PARSONS MD Ot 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 06/19/2017 LILLIAN PARSONS MD Ot 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 06/19/2017 LILLIAN PARSONS MD Ot L97.422 NON-PRS CHR ULCER OF LEFT HEEL AND MIDFO 06/19/2017 LILLIAN PARSONS MD Ot L97.522 NON-PRS CHRONIC ULCER OTH PRT LEFT FOOT 06/25/2017 LILLIAN PARSONS MD Ot E11.621 TYPE 2 DIABETES MELLITUS WITH FOOT ULCER 06/25/2017 LILLIAN PARSONS MD, Ot E11.65 TYPE 2 DIABETES MELLITUS WITH HYPERGLYCE 06/25/2017 LILLIAN PARSONS MD Ot 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 06/25/2017 LILLIAN PARSONS MD Ot 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 06/25/2017 LILLIAN PARSONS MD Ot I87.323 CHRONIC VENOUS HTN W INFLAMMATION OF [place] 06/25/2017 LILLIAN PARSONS MD Ot L97.422 NON-PRS CHR ULCER OF LEFT HEEL AND MIDFO 06/25/2017 LILLIAN PARSONS MD, Ot L97.522 NON-PRS CHRONIC ULCER OTH PRT LEFT FOOT 06/28/2017 LILLIAN PARSONS MD, Ot E11.621 TYPE 2 DIABETES MELLITUS WITH FOOT ULCER 06/28/2017 LILLIAN PARSONS MD, Ot E11.65 TYPE 2 DIABETES MELLITUS WITH HYPERGLYCE 06/28/2017 LILLIAN PARSONS MD Ot 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 06/28/2017 LILLIAN PARSONS MD Ot 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 06/28/2017 LILLIAN PARSONS MD, Ot I87.323 CHRONIC VENOUS [...] 07/03/2017 LILLIAN PARSONS MD Ot 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 07/03/2017 LILLIAN PARSONS MD Ot 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.] 07/11/2017 LILLIAN PARSONS MD Ot 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 07/11/2017 LILLIAN PARSOSN MD Ot 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 07/11/2017 [...] 07/19/2017 LILLIAN PARSONS MD Ot 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 07/19/2017 LILLIAN PARSONS MD Ot 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.] 08/03/2017 LILLIAN PARSONS MD, Ot 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 08/03/2017 LILLIAN PARSONS MD Ot I87.323 CHRONIC VENOUS HTN W INFLAMMATION OF [place] 08/03/2017 LILLIAN PARSONS MD Ot L97.522 NON-PRS CHRONIC ULCER OTH PRT LEFT FOOT 08/10/2017 LILLIAN PARSONS MD, Ot E11.621 TYPE 2 DIABETES MELLITUS WITH FOOT ULCER 08/10/2017 LILLIAN PARSONS MD Ot 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 08/10/2017 LILLIAN PARSONS MD Ot I87.323 CHRONIC VENOUS HTN W INFLAMMATION OF [place] 08/10/2017 LILLIAN PARSONS MD Ot L97.522 NON-PRS CHRONIC [...] MELLITUS WITH FOOT ULCER 08/15/2017 LILLIAN PARSONS MD, Ot 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 08/15/2017 LILLIAN PARSONS MD Ot I87.323 CHRONIC VENOUS HTN W INFLAMMATION OF [place] 08/15/2017 LILLIAN PARSONS MD, Ot L97.522 NON-PRS CHRONIC ULCER OTH PRT LEFT FOOT 08/21/2017 LILLIAN PARSONS MD, Ot E11.621 TYPE 2 DIABETES MELLITUS WITH FOOT ULCER 08/21/2017 LILLIAN PAROSNS MD, Ot 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 08/21/2017 LILLIAN PARSONS MD, Ot I87.323 CHRONIC VENOUS HTN W INFLAMMATION OF [place] 08/21/2017 LILLIAN PARSONS MD, Ot L97.522 NON-PRS CHRONIC ULCER OTH PRT LEFT FOOT 08/21/2017 LILLIAN PARSONS MD, Ot E11.621 TYPE 2 DIABETES MELLITUS WITH FOOT ULCER 08/21/2017 LILLIAN PARSONS MD, Ot I87.323 CHRONIC VENOUS HTN W INFLAMMATION OF [place] 08/21/2017 LILLIAN PARSONS MD, Ot L97.522 NON-PRS CHRONIC ULCER OTH PRT LEFT FOOT 08/30/2017 LILLIAN PARSONS MD, Ot E11.621 TYPE 2 [...] OTH PRT LEFT FOOT 09/07/2017 LILLIAN PARSONS MD, Ot E11.621 TYPE 2 DIABETES MELLITUS WITH FOOT ULCER 09/07/2017 LILLIAN PARSONS MD Ot I87.323 CHRONIC VENOUS HTN W INFLAMMATION OF [place] 09/07/2017 LILLIAN PARSONS MD Ot L97.522 NON-PRS CHRONIC [...] MELLITUS WITH FOOT ULCER 09/26/2017 LILLIAN PARSONS MD Ot I87.323 CHRONIC VENOUS [...] 02/26/2018 LILLIAN PARSONS MD Ot 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 02/26/2018 LILLIAN PARSONS MD, Ot 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 02/26/2018 [...] 02/26/2018 LILLIAN PARSONS MD Ot 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 02/26/2018 LILLIAN PARSONS MD Ot I70.245 ATHSCL [place]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 C 02/26/2018 LILLIAN PARSONS MD, Ot I87.323 CHRONIC VENOUS HTN W INFLAMMATION OF [place] 02/26/2018 LILLIAN PARSONS MD Ot L97.422 NON-PRS CHR ULCER OF LEFT HEEL AND MIDFO 02/26/2018 LILLIAN PARSONS MD Ot L97.522 NON-PRS CHRONIC ULCER OTH PRT LEFT FOOT 02/26/2018 LILLIAN PARSONS MD, Ot E11.621 TYPE 2 DIABETES MELLITUS WITH FOOT ULCER 02/26/2018 LILLIAN PARSONS MD Ot 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 02/26/2018 LILLIAN PARSONS MD Ot I70.245 ATHSCL [place]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 C 02/26/2018 LILLIAN PARSONS MD Ot I87.323 CHRONIC VENOUS HTN W INFLAMMATION OF [place] 02/26/2018 LILLIAN PARSONS MD Ot L97.422 NON-PRS CHR ULCER OF LEFT HEEL AND MIDFO 02/26/2018 LILLIAN PARSONS MD Ot L97.522 NON-PRS CHRONIC ULCER OTH PRT LEFT FOOT 02/26/2018 LILLIAN PARSONS MD Ot R60 .0 LOCALIZED EDEMA 02/26/2018 INDERJIT DAWSON APRN Ot E11.621 TYPE 2 DIABETES MELLITUS WITH FOOT ULCER 02/26/2018 INDERJIT DAWSON RETAIL DIRECTOR Ot E11.65 TYPE 2 DIABETES MELLITUS WITH HYPERGLYCE 02/26/2018 INDERJIT DAWSON RETAIL DIRECTOR Ot 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 02/26/2018 INDERJIT DAWSON RETAIL DIRECTOR Ot 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 02/26/2018 INDERJIT DAWSON RETAIL DIRECTOR Ot I87.323 CHRONIC VENOUS HTN W INFLAMMATION OF [place] 02/26/2018 INDERJIT DAWSON RETAIL DIRECTOR Ot L97.422 NON-PRS CHR ULCER OF LEFT HEEL AND MIDFO 02/26/2018 INDERJIT DAWSON RETAIL DIRECTOR Ot L97.522 NON-PRS CHRONIC ULCER OTH PRT LEFT FOOT 02/26/2018 LILLIAN PARSONS MD Ot E11.621 TYPE 2 DIABETES MELLITUS WITH FOOT ULCER 02/26/2018 LILLIAN PARSONS MD Ot E11.65 TYPE 2 DIABETES MELLITUS WITH HYPERGLYCE 02/26/2018 LILLIAN PARSONS MD Ot 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 02/26/2018 LILLIAN PARSONS MD Ot 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 02/26/2018 [...] 02/26/2018 LILLIAN PARSONS MD Ot 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 02/26/2018 LILLIAN PARSONS MD Ot 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 02/26/2018 [...] 02/26/2018 LILLIAN PARSONS MD Ot 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 02/26/2018 LILLIAN PARSONS MD Ot I70.245 ATHSCL [place]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 C 02/26/2018 [...] 02/26/2018 LILLIAN PARSONS MD Ot 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 02/26/2018 LILLIAN PARSONS MD Ot I70.245 ATHSCL [place]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 [facility] 02/26/2018 LILLIAN PARSONS MD Ot I87.323 [...] 02/26/2018 LILLIAN PARSONS MD Ot 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 02/26/2018 LILLIAN PARSONS MD Ot I70.245 ATHSCL [place]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 [facility] 02/26/2018 LILLIAN PARSONS MD Ot L97.422 NON-PRS CHR ULCER OF LEFT HEEL AND MIDFO 02/26/2018 LILLIAN PARSONS MD Ot L97.522 NON-PRS CHRONIC ULCER OTH PRT LEFT FOOT 02/26/2018 LILLIAN PARSONS MD Ot E11.621 TYPE 2 DIABETES MELLITUS WITH FOOT ULCER 02/26/2018 LILLIAN PARSONS MD Ot E11.65 TYPE 2 DIABETES MELLITUS WITH HYPERGLYCE 02/26/2018 LILLIAN PARSONS MD Ot 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 02/26/2018 LILLIAN PARSONS MD Ot 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 02/26/2018 [...] 02/26/2018 LILLIAN PARSONS MD Ot 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 02/26/2018 LILLIAN PARSONS MD Ot 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 02/26/2018 [...] 02/26/2018 LILLIAN PARSONS MD Ot 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 02/26/2018 LILLIAN PARSONS MD Ot I87.323 CHRONIC VENOUS HTN W INFLAMMATION OF [place] 02/26/2018 LILLIAN PARSONS MD Ot L97.522 NON-PRS CHRONIC ULCER OTH PRT LEFT FOOT 02/26/2018 LILLIAN PARSONS MD Ot E11.621 TYPE 2 DIABETES MELLITUS WITH FOOT ULCER 02/26/2018 LILLIAN PARSONS MD Ot 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 02/26/2018 LILLIAN PARSONS MD Ot I87.323 CHRONIC VENOUS HTN W INFLAMMATION OF [place] 02/26/2018 LILLIAN PARSONS MD Ot L97.522 NON-PRS CHRONIC ULCER OTH PRT LEFT FOOT 02/26/2018 LILLIAN PARSONS MD Ot E11.621 TYPE 2 DIABETES MELLITUS WITH FOOT ULCER 02/26/2018 LILLIAN PARSONS MD Ot 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 02/26/2018 LILLIAN PARSONS MD Ot I87.323 CHRONIC VENOUS HTN W INFLAMMATION OF [place] 02/26/2018 LILLIAN PARSONS MD Ot L97.522 NON-PRS CHRONIC ULCER OTH PRT LEFT FOOT 02/26/2018 LILLIAN PARSONS MD Ot E11.621 TYPE 2 DIABETES MELLITUS WITH FOOT ULCER 02/26/2018 LILLIAN PARSONS MD, Ot 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 33 OBSTRUCTIVE SLEEP APNEA (ADULT) (PEDIATR 03/07/2018 RODOLFO RICO DO Ot I10 ESSENTIAL (PRIMARY) HYPERTENSION 03/07/2018 RODOLFO RICO DO Ot I25. 10 ATHSCL HEART DISEASE OF [place] CORONARY 03/07/2018 RODOLFO RICO DO Ot K80. 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 82 [facility] (CURRENT) USE OF ASPIRIN 03/07/2018 RODOLFO RICO DO Ot Z79.899 OTHER PEDIATRIC IMMUNOLOGIST (CURRENT) DRUG THERAPY 03/07/2018 RODOLFO RICO DO Ot Z95. 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 33 OBSTRUCTIVE SLEEP APNEA (ADULT) (PEDIATR 03/12/2018 RICO DO, RODOLFO D Ot I10 ESSENTIAL (PRIMARY) HYPERTENSION 03/12/2018 RICO DO, RODOLFO D Ot I25. 10 ATHSCL HEART DISEASE OF [place] CORONARY 03/12/2018 [place] DOUNATT D Ot K80. 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 82 PEDIATRIC IMMUNOLOGIST (CURRENT) USE OF ASPIRIN 03/12/2018 [place] DO RODOLFO D Ot Z79.899 OTHER [facility] (CURRENT) DRUG THERAPY 03/12/2018 TRISHA DORODOLFO D Ot Z95. 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 33 OBSTRUCTIVE SLEEP APNEA (ADULT) (PEDIATR 03/14/2018 [place] DO, RODOLFO D Ot I10 ESSENTIAL (PRIMARY) HYPERTENSION 03/14/2018 [place] DO RODOLFO D Ot I25. 10 ATHSCL HEART DISEASE OF [place] CORONARY 03/14/2018 [place] DO RODOLFO D Ot K80. 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 82 [facility] (CURRENT) USE OF ASPIRIN 03/14/2018 TRISHA DO RODOLFO D Ot Z79.899 OTHER [facility] (CURRENT) DRUG THERAPY 03/14/2018 RODOLFO [place] DO D Ot Z95. 5 PRESENCE OF CORONARY ANGIOPLASTY IMPLANT 03/21/2018 GARRETT [...] MD Ot I25.10 ATHSCL HEART DISEASE OF [place] CORONARY 03/28/2018 GARRETT JAVIER MD Ot I73.9 PERIPHERAL VASCULAR DISEASE, UNSPECIFIED 03/28/2018 GARRETT JAVIER MD Ot K80.20 CALCULUS OF [place] W/O CHOLECYSTITI 03/28/2018 GARRETT JAVIER MD Ot N30.90 CYSTITIS, UNSPECIFIED WITHOUT HEMATURIA 03/28/2018 GARRETT JAVIER MD Ot Z92.3 PERSONAL HISTORY OF IRRADIATION 04/09/2018 RODOLFO RICO DO Ot E11. 43 TYPE 2 DIABETES W DIABETIC AUTONOMIC (PO 04/09/2018 RODOLFO R[place] DO Ot G47. 33 OBSTRUCTIVE SLEEP APNEA (ADULT) (PEDIATR 04/09/2018 RODOLFO R[place] DO Ot I10 ESSENTIAL (PRIMARY) HYPERTENSION 04/09/2018 RODOLFO R[place] DO Ot I25. 10 ATHSCL HEART DISEASE OF [place] CORONARY 04/09/2018 RODOLFO R[place] DO Ot K80. 44 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 04/09/2018 RODOLFO R[place] DO Ot Z79. 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 5 PRESENCE OF CORONARY ANGIOPLASTY IMPLANT 05/28/2018 GARRETT JAVIER MD Ot C61 MALIGNANT NEOPLASM OF PROSTATE 05/28/2018 GARRETT JAVIER MD Ot E03.9 HYPOTHYROIDISM, UNSPECIFIED 05/28/2018 GARRETT JAVIER MD Ot 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 05/28/2018 GARRETT JAVIER MD Ot I10 ESSENTIAL (PRIMARY) HYPERTENSION 05/28/2018 GARRETT JAVIER MD Ot I25.10 ATHSCL HEART DISEASE OF [place] CORONARY 05/28/2018 GARRETT JAVIER MD Ot I73.9 PERIPHERAL VASCULAR DISEASE, UNSPECIFIED 05/28/2018 GARRETT JAVIER MD Ot K80.20 CALCULUS OF [place] W/O CHOLECYSTITI 05/28/2018 GARRETT JAVIER MD Ot N30.90 CYSTITIS, UNSPECIFIED WITHOUT HEMATURIA 05/28/2018 GARRETT JAVIER MD Ot Z92.3 PERSONAL HISTORY OF IRRADIATION 05/29/2018 GARRETT JAVIER MD Ot C61 MALIGNANT NEOPLASM OF PROSTATE 05/29/2018 GARRETT JAVIER MD Ot E03.9 HYPOTHYROIDISM, UNSPECIFIED 05/29/2018 CRISTIANO JAVIER MDNER Ot 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 05/29/2018 CRISTIANO JAVIER MDNER Ot I10 ESSENTIAL (PRIMARY) HYPERTENSION 05/29/2018 CRISTIANO JAVIER MDNER Ot I25.10 ATHSCL HEART DISEASE OF [place] CORONARY 05/29/2018 GARRETT JAVIER MD Ot I73.9 [...] MD Ot I10 ESSENTIAL (PRIMARY) HYPERTENSION 09/13/2018 CRISTIANO JAVIER MDNER Ot I25.10 ATHSCL HEART DISEASE OF [place] CORONARY 09/13/2018 GARRETT JAVIER MD Ot I73.9 PERIPHERAL VASCULAR DISEASE, UNSPECIFIED 09/13/2018 GARRETT JAVIER MD Ot Z92.3 PERSONAL HISTORY OF IRRADIATION 10/22/2018 RAYMUNDO HERNANDEZ APRN Ot G47.33 OBSTRUCTIVE SLEEP APNEA (ADULT) (PEDIATR 10/25/2018 RAYMUNDO HERNANDEZ RETAIL DIRECTOR Ot G47.10 HYPERSOMNIA, UNSPECIFIED 10/25/2018 RAYMUNDO HERNANDEZ RETAIL DIRECTOR Ot G47.33 OBSTRUCTIVE SLEEP APNEA (ADULT) (PEDIATR 10/25/2018 RAYMUNDO HERNANDEZ RETAIL DIRECTOR Ot I1 0 ESSENTIAL (PRIMARY) HYPERTENSION 10/25/2018 RAYMUNDO HERNANDEZ APRN Ot R06.83 SNORING 10/28/2018 RAYMUNDO HERNANDEZ RETAIL DIRECTOR Ot G47.10 HYPERSOMNIA, UNSPECIFIED 10/28/2018 RAYMUNDO HERNANDEZ RETAIL DIRECTOR Ot G47.33 OBSTRUCTIVE SLEEP APNEA (ADULT) (PEDIATR 10/28/2018 RAYMUNDO HERNANDEZ RETAIL DIRECTOR Ot I1 0 ESSENTIAL (PRIMARY) HYPERTENSION 10/28/2018 RAYMUNDO HERNANDEZ APRN Ot R06.83 SNORING 11/06/2018 GARRETT JAVIER MD Ot C61 MALIGNANT NEOPLASM OF PROSTATE 11/06/2018 GARRETT JAVIER MD Ot E03.9 HYPOTHYROIDISM, UNSPECIFIED 11/06/2018 GARRETT JAVIER MD Ot 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 11/06/2018 GARRETT JAVIER MD Ot I10 ESSENTIAL (PRIMARY) HYPERTENSION 11/06/2018 GARRETT JAVIER MD Ot I25.10 ATHSCL HEART DISEASE OF [place] CORONARY 11/06/2018 GARRETT JAVIER MD Ot I73.9 [...] MD Ot I25.10 ATHSCL HEART DISEASE OF [place] CORONARY 11/06/2018 GARRETT JAVIER MD Ot I73.9 PERIPHERAL VASCULAR DISEASE, UNSPECIFIED 11/06/2018 GARRETT JAVIER MD Ot Z92.3 PERSONAL HISTORY OF IRRADIATION 11/12/2018 GARRETT JAVIER MD Ot C61 MALIGNANT NEOPLASM OF PROSTATE 11/12/2018 GARRETT JAVIER MD Ot D64.9 ANEMIA, UNSPECIFIED 11/12/2018 GARRETT JAVIER MD Ot E03.9 HYPOTHYROIDISM, UNSPECIFIED 11/12/2018 GARRETT JAVIER MD Ot 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 11/12/2018 GARRETT JAVIER MD Ot I10 ESSENTIAL (PRIMARY) HYPERTENSION 11/12/2018 GARRETT JAVIER MD Ot I25.10 ATHSCL HEART DISEASE OF [place] CORONARY 11/12/2018 GARRETT JAVIER MD Ot I73.9 PERIPHERAL VASCULAR DISEASE, UNSPECIFIED 11/12/2018 GARRETT JAVIER MD Ot Z79.82 [facility] (CURRENT) USE OF ASPIRIN 11/12/2018 GARRETT JAVIER MD Ot Z79.899 OTHER [facility] (CURRENT) DRUG THERAPY 11/12/2018 GARRETT JAVIER MD [...] MD Ot I25.10 ATHSCL HEART DISEASE OF [place] CORONARY 11/13/2018 GARRETT JAVIER MD Ot I73.9 PERIPHERAL VASCULAR DISEASE, UNSPECIFIED 11/13/2018 GARRETT JAVIER MD Ot 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 11/13/2018 GARRETT JAVIER MD Ot Z79.899 OTHER PEDIATRIC IMMUNOLOGIST (CURRENT) DRUG THERAPY 11/13/2018 GARRETT JAVIER MD Ot Z92.3 PERSONAL HISTORY OF IRRADIATION 11/21/2018 GARRETT JAVIER MD Ot C61 MALIGNANT NEOPLASM OF PROSTATE 11/21/2018 GARRETT JAVIER MD Ot E03.9 HYPOTHYROIDISM, UNSPECIFIED 11/21/2018 GARRETT JAVIER MD Ot 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 11/21/2018 GARRETT JAVIER MD Ot I10 ESSENTIAL (PRIMARY) HYPERTENSION 11/21/2018 GARRETT JAVIER MD Ot I25.10 ATHSCL HEART DISEASE OF [place] CORONARY 11/21/2018 GARRETT JAVIER MD Ot I73.9 PERIPHERAL VASCULAR DISEASE, UNSPECIFIED 11/21/2018 GARRETT JAVIER MD Ot Z92.3 PERSONAL HISTORY OF IRRADIATION 11/21/2018 RODOLFO RICO DO Ot Z01.818 ENCOUNTER FOR OTHER PREPROCEDURAL EXAMIN 11/22/2018 RODOLFO RICO DO Ot Z01.818 ENCOUNTER FOR OTHER PREPROCEDURAL EXAMIN 11/26/2018 RODOLFO RICO DO Ot C61 MALIGNANT NEOPLASM OF PROSTATE 11/26/2018 RODOLFO RICO DO Ot D12. 0 BENIGN NEOPLASM OF CECUM 11/26/2018 RODOLFO RICO DO Ot D12. 3 BENIGN NEOPLASM OF TRANSVERSE COLON 11/26/2018 RODOLFO RICO DO Ot D50. 9 IRON DEFICIENCY ANEMIA, UNSPECIFIED 11/26/2018 RODOLFO RICO DO Ot E11. 42 TYPE 2 DIABETES MELLITUS WITH DIABETIC P 11/26/2018 RODOLFO RICO DO Ot E11. 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 11/26/2018 RODOLFO RICO DO Ot F17.220 NICOTINE DEPENDENCE, CHEWING TOBACCO, UN 11/26/2018 RODOLFO RICO DO Ot G57. 33 LESION OF LATERAL POPLITEAL NERVE, BILAT 11/26/2018 RODOLFO RICO DO Ot I10 ESSENTIAL (PRIMARY) HYPERTENSION 11/26/2018 RODOLFO RICO DO Ot I25. 10 ATHSCL HEART DISEASE OF [place] CORONARY 11/26/2018 RODOLFO RICO DO Ot K31. 7 POLYP OF STOMACH AND DUODENUM 11/26/2018 RODOLFO RICO DO Ot K44. 9 DIAPHRAGMATIC HERNIA WITHOUT OBSTRUCTION 11/26/2018 RODOLFO RICO DO Ot K62. 89 OTHER SPECIFIED DISEASES OF ANUS AND REC 11/26/2018 RODOLFO RICO DO Ot Z79. 82 [facility] (CURRENT) USE OF ASPIRIN 11/26/2018 RODOLFO RICO DO Ot Z79. 84 [facility] (CURRENT) USE OF ORAL HYPOGLYC 11/26/2018 RODOLFO RICO DO Ot Z79.899 OTHER PEDIATRIC IMMUNOLOGIST (CURRENT) DRUG THERAPY 11/26/2018 RODOLFO RICO DO Ot Z95. 5 PRESENCE OF CORONARY ANGIOPLASTY IMPLANT 11/28/2018 RODOLFO RICO DO Ot C61 MALIGNANT NEOPLASM OF PROSTATE 11/28/2018 RODOLFO RICO DO Ot D12. 0 BENIGN NEOPLASM OF CECUM 11/28/2018 RODOLFO RICO DO Ot D12. 3 BENIGN NEOPLASM OF TRANSVERSE COLON 11/28/2018 RODOLFO RICO DO Ot D50. 9 IRON DEFICIENCY ANEMIA, UNSPECIFIED 11/28/2018 RODOLFO RICO DO Ot E11. 42 TYPE 2 DIABETES MELLITUS WITH DIABETIC P 11/28/2018 RODOLFO RICO DO Ot E11. 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 11/28/2018 RODOLFO RICO DO Ot F17.220 NICOTINE DEPENDENCE, CHEWING TOBACCO, UN 11/28/2018 RODOLFO RICO DO Ot G57. 33 LESION OF LATERAL POPLITEAL NERVE, BILAT 11/28/2018 RODOLFO RICO DO Ot I10 ESSENTIAL (PRIMARY) HYPERTENSION 11/28/2018 RODOLFO RICO DO Ot I25. 10 ATHSCL HEART DISEASE OF [place] CORONARY 11/28/2018 RODOLFO RICO DO Ot K31. 7 POLYP OF STOMACH AND DUODENUM 11/28/2018 RODOLFO RICO DO Ot K44. 9 DIAPHRAGMATIC HERNIA WITHOUT OBSTRUCTION 11/28/2018 RODOLFO RICO DO Ot K62. 89 OTHER SPECIFIED DISEASES OF ANUS AND REC 11/28/2018 RODOLFO RICO DO Ot Z79. 82 [facility] (CURRENT) USE OF ASPIRIN 11/28/2018 RODOLFO RICO DO Ot Z79. 84 PEDIATRIC IMMUNOLOGIST (CURRENT) USE OF ORAL HYPOGLYC 11/28/2018 RICO RODOLFO CRUZ Ot Z79.899 OTHER PEDIATRIC IMMUNOLOGIST (CURRENT) DRUG THERAPY 11/28/2018 RODOLFO RICO DO Ot Z95. 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 12/22/2018 LILLIAN PARSONS MD Ot 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 12/22/2018 [...] FOOT ULCER 12/22/2018 LILLIAN PARSONS MD, Ot 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 12/22/2018 INDERJIT DAWSON APRN Ot 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 12/22/2018 INDERJIT DAWSON APRN Ot I87.323 CHRONIC VENOUS HTN W INFLAMMATION OF [place] 12/22/2018 SAMIR, INDERJIT R RETAIL DIRECTOR Ot L97.422 NON-PRS CHR ULCER OF LEFT HEEL AND MIDFO 12/22/2018 SAMIRINDERJIT Diana RETAIL DIRECTOR Ot L97.522 NON-PRS CHRONIC ULCER OTH PRT LEFT FOOT 12/22/2018 LILLIAN PARSONS MD Ot E11.621 TYPE 2 DIABETES MELLITUS WITH FOOT ULCER 12/22/2018 LILLIAN PARSONS MD, Ot E11.65 TYPE 2 DIABETES MELLITUS WITH HYPERGLYCE 12/22/2018 LILLIAN PARSONS MD Ot 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 12/22/2018 LILLIAN PARSONS MD Ot 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 12/22/2018 [...] 12/22/2018 LILLIAN PARSONS MD Ot 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 12/22/2018 LILLIAN PARSONS MD Ot 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 12/22/2018 [...] 12/22/2018 LILLIAN PARSONS MD Ot 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 12/22/2018 LILLIAN PARSONS MD Ot 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 12/22/2018 [...] 12/22/2018 LILLIAN PARSONS MD Ot 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 12/22/2018 LILLIAN PARSONS MD Ot 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 12/22/2018 [...] 12/22/2018 LILLIAN PARSONS MD Ot 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 12/22/2018 LILLIAN PARSONS MD Ot 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 12/22/2018 [...] 12/22/2018 LILLIAN PARSONS MD Ot 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 12/22/2018 LILLIAN PARSONS MD Ot 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 12/22/2018 [...] 12/22/2018 LILLIAN PARSONS MD Ot 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 12/22/2018 LILLIAN PARSONS MD Ot 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 12/22/2018 [...] 12/22/2018 LILLIAN PARSONS MD Ot I70.245 ATHSCL [place]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 C 12/22/2018 LILLIAN PARSONS MD Ot I87.323 CHRONIC VENOUS HTN W INFLAMMATION OF BERNICE 12/22/2018 LILLIAN PARSONS MD Ot L97.522 NON-PRS CHRONIC ULCER OTH PRT LEFT FOOT 12/22/2018 LILLIAN PARSONS MD Ot E11.621 TYPE 2 DIABETES MELLITUS WITH FOOT ULCER 12/22/2018 LILLIAN PARSONS MD Ot I70.245 ATHSCL [place]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 C 12/22/2018 LILLIAN PARSONS MD Ot I87.323 CHRONIC VENOUS HTN W INFLAMMATION OF [place]ERN[place] 12/22/2018 LILLIAN PARSONS MD Ot L97.522 NON-PRS CHRONIC ULCER OTH PRT LEFT FOOT 12/22/2018 LILLIAN PARSONS MD Ot E11.621 TYPE 2 DIABETES MELLITUS WITH FOOT ULCER 12/22/2018 LILLIAN PARSONS MD Ot 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 12/22/2018 LILLIAN PARSONS MD Ot I87.323 CHRONIC VENOUS HTN W INFLAMMATION OF [place]ERN[place] 12/22/2018 LILLIAN PARSONS MD Ot L97.522 NON-PRS CHRONIC ULCER OTH PRT LEFT FOOT 12/22/2018 LILLIAN PARSONS MD Ot E11.621 TYPE 2 DIABETES MELLITUS WITH FOOT ULCER 12/22/2018 LILLIAN PARSONS MD Ot 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 12/22/2018 [...] OTH PRT LEFT FOOT 12/22/2018 RAYMUNDO HERNANDEZ RETAIL DIRECTOR Ot E80.6 OTHER DISORDERS OF BILIRUBIN METABOLISM 12/22/2018 RAYMUNDO HERNANDEZ RETAIL DIRECTOR Ot K82.8 OTHER SPECIFIED DISEASES OF GALLBLADDER [...] MD Ot I25.10 ATHSCL HEART DISEASE OF [place] CORONARY 12/22/2018 GARRETT JAVIER MD Ot I73.9 PERIPHERAL VASCULAR DISEASE, UNSPECIFIED 12/22/2018 GARRETT JAVIER MD Ot 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 12/22/2018 GARRETT JAVIER MD Ot Z79.899 OTHER PEDIATRIC IMMUNOLOGIST (CURRENT) DRUG THERAPY 12/22/2018 GARRETT JAVIER MD [...] 2 DIABETES W DIABETIC PERIPHERAL AN 01/08/2019 CRISTIANO JAVIER MDNER Ot I10 ESSENTIAL (PRIMARY) HYPERTENSION 01/08/2019 GARRETT JAVIER MD Ot I25.10 ATHSCL HEART DISEASE OF [place] CORONARY 01/08/2019 GARRETT JAVIER MD Ot I73.9 PERIPHERAL VASCULAR DISEASE, UNSPECIFIED 01/08/2019 GARRETT JAVIER MD Ot Z79.82 [facility] (CURRENT) USE OF ASPIRIN 01/08/2019 GARRETT JAVIER MD Ot Z79.899 OTHER [facility] (CURRENT) DRUG THERAPY 01/08/2019 GARRETT JAVIER MD [...] MD Ot I25.10 ATHSCL HEART DISEASE OF [place] CORONARY 02/18/2019 GARRETT JAVIER MD Ot I73.9 PERIPHERAL VASCULAR DISEASE, UNSPECIFIED 02/18/2019 GARRETT JAVIER MD Ot 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 02/18/2019 GARRETT JAVIER MD Ot Z79.899 OTHER [facility] (CURRENT) DRUG THERAPY 02/18/2019 GARRETT JAVIER MD [...] 2 DIABETES W DIABETIC PERIPHERAL AN 02/21/2019 CRISTIANO JAVIER MDNER Ot I10 ESSENTIAL (PRIMARY) HYPERTENSION 02/21/2019 CRISTIANO JAVIER MDNER Ot I25.10 ATHSCL HEART DISEASE OF [place] CORONARY 02/21/2019 GARRETT JAVIER MD, Ot I73.9 PERIPHERAL VASCULAR DISEASE, UNSPECIFIED 02/21/2019 GARRETT JAVIER MD Ot Z79.82 [facility] (CURRENT) USE OF ASPIRIN 02/21/2019 GARRETT JAVIER MD Ot Z79.899 OTHER [facility] (CURRENT) DRUG THERAPY 02/21/2019 GARRETT JAVIER MD Ot Z92.3 PERSONAL HISTORY OF IRRADIATION 03/18/2019 SUMMER CHERY MD Ot I10 ESSENTIAL (PRIMARY) HYPERTENSION 03/18/2019 SUMMER CHERY MD, Ot I25. 10 ATHSCL HEART DISEASE OF [place] CORONARY 03/18/2019 SUMMER CHERY MD, Ot I36. 1 NONRHEUMATIC TRICUSPID (VALVE) INSUFFICI 03/18/2019 SUMMER CHERY MD, Ot I73. 9 PERIPHERAL VASCULAR DISEASE, UNSPECIFIED 03/18/2019 SUMMER CHERY MD Ot Z72. 0 TOBACCO USE 03/18/2019 MARINO DPM, ELY Q Ot Z01.818 ENCOUNTER FOR OTHER PREPROCEDURAL EXAMIN 03/19/2019 MARINO DPM, ELY Q Ot Z01.818 ENCOUNTER FOR OTHER PREPROCEDURAL EXAMIN 03/24/2019 MARINO DPM, ELY Q Ot D51. 0 VITAMIN B12 DEFIC ANEMIA DUE TO INTRINSI 03/24/2019 MARINO DPM, ELY Q Ot E03. 8 OTHER SPECIFIED HYPOTHYROIDISM 03/24/2019 MARINO DPM, ELY Q Ot E11.621 TYPE 2 DIABETES MELLITUS WITH FOOT ULCER 03/24/2019 MARINO DPM, ELY Q Ot F17.220 NICOTINE DEPENDENCE, CHEWING TOBACCO, UN 03/24/2019 MARINO DPM, ELY Q Ot G47. 33 OBSTRUCTIVE SLEEP APNEA (ADULT) (PEDIATR 03/24/2019 MARINO DPM, ELY Q Ot G89. 4 CHRONIC PAIN SYNDROME 03/24/2019 MARINO DPM, ELY Q Ot I12. 9 HYPERTENSIVE CHRONIC KIDNEY DISEASE W ST 03/24/2019 MARINO DPM, ELY Q Ot I25. 10 ATHSCL HEART DISEASE OF [place] CORONARY 03/24/2019 MARINO DPM, ELY Q Ot J44. 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 32 HALLUX VARUS (ACQUIRED), LEFT FOOT 03/24/2019 MARINO DPM, ELY Q Ot N18. 3 CHRONIC KIDNEY DISEASE, STAGE 3 (MODERAT 03/24/2019 MARINO DPM, ELY Q Ot Z11. 2 ENCOUNTER FOR SCREENING FOR OTHER BACTER 03/24/2019 MARINO DPM, ELY Q Ot Z79. 02 [facility] (CURRENT) USE OF ANTITHROMBOTI 03/24/2019 MARINO DPM, ELY Q Ot Z79. 4 [facility] (CURRENT) USE OF INSULIN 03/24/2019 MARINO DPM, ELY Q Ot Z79. 82 [facility] (CURRENT) USE OF ASPIRIN 03/24/2019 MARINO DPM, ELY Q Ot Z79.899 OTHER PEDIATRIC IMMUNOLOGIST (CURRENT) DRUG THERAPY 03/24/2019 MARINO DPM, ELY Q Ot Z85. 46 PERSONAL HISTORY OF MALIGNANT NEOPLASM O 03/24/2019 MARINO DPM, ELY Q Ot Z95. 5 PRESENCE OF CORONARY ANGIOPLASTY IMPLANT 03/27/2019 MARINO DPM, ELY Q Ot D51. 0 VITAMIN B12 DEFIC ANEMIA DUE TO INTRINSI 03/27/2019 MARINO DPM, ELY Q Ot E03. 8 OTHER SPECIFIED HYPOTHYROIDISM 03/27/2019 MARINO DPM, ELY Q Ot E11.621 TYPE 2 DIABETES MELLITUS WITH FOOT ULCER 03/27/2019 MARINO DPM, ELY Q Ot F17.220 NICOTINE DEPENDENCE, CHEWING TOBACCO, UN 03/27/2019 MARINO DPM, ELY Q Ot G47. 33 OBSTRUCTIVE SLEEP APNEA (ADULT) (PEDIATR 03/27/2019 MARINO DPM, ELY Q Ot G89. 4 CHRONIC PAIN SYNDROME 03/27/2019 MARINO DPM, ELY Q Ot I12. 9 HYPERTENSIVE CHRONIC KIDNEY DISEASE W ST 03/27/2019 MARINO DPM, ELY Q Ot I25. 10 ATHSCL HEART DISEASE OF [place] CORONARY 03/27/2019 MARINO DPM, ELY Q Ot J44. 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 32 HALLUX VARUS (ACQUIRED), LEFT FOOT 03/27/2019 MARINO DPM, ELY Q Ot N18. 3 CHRONIC KIDNEY DISEASE, STAGE 3 (MODERAT 03/27/2019 MARINO DPM, ELY Q Ot Z11. 2 ENCOUNTER FOR SCREENING FOR OTHER BACTER 03/27/2019 MARINO DPM, ELY Q Ot Z79. 02 [facility] (CURRENT) USE OF ANTITHROMBOTI 03/27/2019 MARINO DPM, ELY Q Ot Z79. 4 PEDIATRIC IMMUNOLOGIST (CURRENT) USE OF INSULIN 03/27/2019 MARINO DPM, ELY Q Ot Z79. 82 PEDIATRIC IMMUNOLOGIST (CURRENT) USE OF ASPIRIN 03/27/2019 MARINO DPM, ELY Q Ot Z79.899 OTHER [facility] (CURRENT) DRUG THERAPY 03/27/2019 MARINO DPM, ELY Q Ot Z85. 46 PERSONAL HISTORY OF MALIGNANT NEOPLASM O 03/27/2019 MARINO DPM, ELY Q Ot Z95. 5 PRESENCE OF CORONARY ANGIOPLASTY IMPLANT 04/08/2019 SUMMER CHERY MD Ot I10 ESSENTIAL (PRIMARY) HYPERTENSION 04/08/2019 SUMMER CHERY MD, Ot I25. 10 ATHSCL HEART DISEASE OF [place] CORONARY 04/08/2019 SUMMER CHERY MD, Ot I36. 1 NONRHEUMATIC TRICUSPID (VALVE) INSUFFICI 04/08/2019 SUMMER CHERY MD, Ot I73. 9 PERIPHERAL VASCULAR DISEASE, UNSPECIFIED 04/08/2019 SUMMER CHERY MD, Ot Z72. 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 04/21/2019 LILLIAN PARSONS MD, Ot I87.323 CHRONIC VENOUS HTN W INFLAMMATION OF [place]ERNICE 04/21/2019 LILLIAN PARSONS MD Ot L97.422 NON-PRS CHR ULCER OF LEFT HEEL AND MIDFO 04/21/2019 LILLIAN PARSONS MD, Ot L97.522 NON-PRS CHRONIC ULCER OTH PRT LEFT FOOT 04/21/2019 LILLIAN PARSONS MD Ot E11.621 TYPE 2 DIABETES MELLITUS WITH FOOT ULCER 04/21/2019 LILLIAN PARSONS MD, Ot E11.65 TYPE 2 DIABETES MELLITUS WITH HYPERGLYCE 04/21/2019 LILLIAN PARSONS MD, Ot 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 04/21/2019 LILLIAN PARSONS MD, Ot 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 04/21/2019 LILLIAN PARSONS MD, Ot I87.323 CHRONIC VENOUS HTN W INFLAMMATION OF [place]ERN[place] 04/21/2019 LILLIAN PARSONS MD Ot L97.422 NON-PRS CHR ULCER OF LEFT HEEL AND MIDFO 04/21/2019 LILLIAN PARSONS MD, Ot L97.522 NON-PRS CHRONIC ULCER OTH PRT LEFT FOOT 04/21/2019 LILLIAN PASRONS MD, Ot E11.621 TYPE 2 DIABETES MELLITUS WITH FOOT ULCER 04/21/2019 LILLIAN PARSONS MD Ot 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 04/21/2019 LILLIAN PARSONS MD Ot 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 04/21/2019 LILLIAN PARSONS MD Ot I87.323 CHRONIC VENOUS HTN W INFLAMMATION OF [place]ERN[place] 04/21/2019 LILLIAN PARSONS MD Ot L97.422 NON-PRS CHR ULCER OF LEFT HEEL AND MIDFO 04/21/2019 LILLIAN PARSONS MD, Ot L97.522 NON-PRS CHRONIC ULCER OTH PRT LEFT FOOT 04/21/2019 LILLIAN PARSONS MD Ot R60 .0 LOCALIZED EDEMA 04/21/2019 INDERJIT DAWSON APRN Ot E11.621 TYPE 2 DIABETES MELLITUS WITH FOOT ULCER 04/21/2019 INDERJIT DAWSON RETAIL DIRECTOR Ot E11.65 TYPE 2 DIABETES MELLITUS WITH HYPERGLYCE 04/21/2019 INDERJIT DAWSON RETAIL DIRECTOR Ot 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 04/21/2019 INDERJIT DAWSON RETAIL DIRECTOR Ot 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 04/21/2019 INDERJIT DAWSON RETAIL DIRECTOR Ot I87.323 CHRONIC VENOUS HTN W INFLAMMATION OF [place] 04/21/2019 INDERJIT DAWSON RETAIL DIRECTOR Ot L97.422 NON-PRS CHR ULCER OF LEFT HEEL AND MIDFO 04/21/2019 INDERJIT DAWSON RETAIL DIRECTOR Ot L97.522 NON-PRS CHRONIC ULCER OTH PRT LEFT FOOT 04/21/2019 LILLIAN PARSONS MD Ot E11.621 TYPE 2 DIABETES MELLITUS WITH FOOT ULCER 04/21/2019 LILLIAN PARSONS MD Ot E11.65 TYPE 2 DIABETES MELLITUS WITH HYPERGLYCE 04/21/2019 LILLIAN PARSONS MD Ot 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 04/21/2019 LILLIAN PARSONS MD Ot 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 04/21/2019 LILLIAN PARSONS MD Ot I87.323 CHRONIC VENOUS HTN W INFLAMMATION OF BERN[place] 04/21/2019 LILLIAN PARSONS MD Ot L97.422 NON-PRS CHR ULCER OF LEFT HEEL AND MIDFO 04/21/2019 LILLIAN PARSONS MD Ot L97.522 NON-PRS CHRONIC ULCER OTH PRT LEFT FOOT 04/21/2019 LILLIAN PARSONS MD Ot E11.621 TYPE 2 DIABETES MELLITUS WITH FOOT ULCER 04/21/2019 LILLIAN PARSONS MD Ot E11.65 TYPE 2 DIABETES MELLITUS WITH HYPERGLYCE 04/21/2019 LILLIAN PARSONS MD Ot 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 04/21/2019 LILLIAN PARSONS MD Ot 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 04/21/2019 LILLIAN PARSONS MD Ot I87.323 CHRONIC VENOUS HTN W INFLAMMATION OF BERNICE 04/21/2019 LILLIAN PARSONS MD Ot L97.422 NON-PRS CHR ULCER OF LEFT HEEL AND MIDFO 04/21/2019 LILLIAN PARSONS MD Ot L97.522 NON-PRS CHRONIC ULCER OTH PRT LEFT FOOT 04/21/2019 LILLIAN PARSONS MD Ot E11.621 TYPE 2 DIABETES MELLITUS WITH FOOT ULCER 04/21/2019 LILLIAN PARSONS MD Ot E11.65 TYPE 2 DIABETES MELLITUS WITH HYPERGLYCE 04/21/2019 LILLIAN PARSONS MD Ot 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 04/21/2019 LILLIAN PARSONS MD Ot 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 04/21/2019 LILLIAN PARSONS MD Ot I87.323 CHRONIC VENOUS HTN W INFLAMMATION OF BERNICE 04/21/2019 LILLIAN PARSONS MD Ot L97.422 NON-PRS CHR ULCER OF LEFT HEEL AND MIDFO 04/21/2019 LILLIAN PARSONS MD Ot L97.522 NON-PRS CHRONIC ULCER OTH PRT LEFT FOOT 04/21/2019 LILLIAN PARSONS MD Ot E11.621 TYPE 2 DIABETES MELLITUS WITH FOOT ULCER 04/21/2019 LILLIAN PARSONS MD, Ot E11.65 TYPE 2 DIABETES MELLITUS WITH HYPERGLYCE 04/21/2019 LILLIAN PARSONS MD Ot 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 04/21/2019 LILLIAN PARSONS MD Ot 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 04/21/2019 LILLIAN PARSONS MD Ot I87.323 CHRONIC VENOUS HTN W INFLAMMATION OF BERNICE 04/21/2019 LILLIAN PARSONS MD Ot L97.422 NON-PRS CHR ULCER OF LEFT HEEL AND MIDFO 04/21/2019 LILLIAN PARSONS MD Ot L97.522 NON-PRS CHRONIC ULCER OTH PRT LEFT FOOT 04/21/2019 LILLIAN PARSONS MD Ot E11.621 TYPE 2 DIABETES MELLITUS WITH FOOT ULCER 04/21/2019 LILLIAN PARSONS MD Ot E11.65 TYPE 2 DIABETES MELLITUS WITH HYPERGLYCE 04/21/2019 LILLIAN PARSONS MD Ot 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 04/21/2019 LILLIAN PARSONS MD Ot 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 04/21/2019 LILLIAN PARSONS MD Ot L97.422 NON-PRS CHR ULCER OF LEFT HEEL AND MIDFO 04/21/2019 LILLIAN PARSONS MD, Ot L97.522 NON-PRS CHRONIC ULCER OTH PRT LEFT FOOT 04/21/2019 LILLIAN PARSONS MD Ot E11.621 TYPE 2 DIABETES MELLITUS WITH FOOT ULCER 04/21/2019 LILLIAN PARSONS MD, Ot E11.65 TYPE 2 DIABETES MELLITUS WITH HYPERGLYCE 04/21/2019 LILLIAN PARSONS MD Ot 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 04/21/2019 LILLIAN PARSONS MD Ot 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 04/21/2019 LILLIAN PARSONS MD Ot I87.323 CHRONIC VENOUS HTN W INFLAMMATION OF BERNICE 04/21/2019 LILLIAN PARSONS MD Ot L97.422 NON-PRS CHR ULCER OF LEFT HEEL AND MIDFO 04/21/2019 LILLIAN PARSONS MD, Ot L97.522 NON-PRS CHRONIC ULCER OTH PRT LEFT FOOT 04/21/2019 LILLIAN PARSONS MD, Ot E11.621 TYPE 2 DIABETES MELLITUS WITH FOOT ULCER 04/21/2019 LILLIAN PARSONS MD, Ot E11.65 TYPE 2 DIABETES MELLITUS WITH HYPERGLYCE 04/21/2019 LILLIAN PARSONS MD Ot 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 04/21/2019 LILLIAN PARSONS MD Ot 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 04/21/2019 LILLIAN PARSONS MD Ot I87.323 CHRONIC VENOUS HTN W INFLAMMATION OF BERNICE 04/21/2019 LILLIAN PARSONS MD Ot L97.422 NON-PRS CHR ULCER OF LEFT HEEL AND MIDFO 04/21/2019 LILLIAN PARSONS MD Ot L97.522 NON-PRS CHRONIC ULCER OTH PRT LEFT FOOT 04/21/2019 LILLIAN PARSONS MD Ot E11.621 TYPE 2 DIABETES MELLITUS WITH FOOT ULCER 04/21/2019 LILLIAN PARSONS MD Ot 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 04/21/2019 LILLIAN PARSONS MD Ot I87.323 CHRONIC VENOUS HTN W INFLAMMATION OF BERNICE 04/21/2019 LILLIAN PARSONS MD Ot L97.522 NON-PRS CHRONIC ULCER OTH PRT LEFT FOOT 04/21/2019 LILLIAN PARSONS MD Ot E11.621 TYPE 2 DIABETES MELLITUS WITH FOOT ULCER 04/21/2019 LILLIAN PARSONS MD Ot 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 04/21/2019 LILLIAN PARSONS MD Ot I87.323 CHRONIC VENOUS HTN W INFLAMMATION OF BERNICE 04/21/2019 LILLIAN PARSONS MD Ot L97.522 NON-PRS CHRONIC ULCER OTH PRT LEFT FOOT 04/21/2019 LILLIAN PARSONS MD Ot E11.621 TYPE 2 DIABETES MELLITUS WITH FOOT ULCER 04/21/2019 LILLIAN PARSONS MD Ot 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 04/21/2019 LILLIAN PARSONS MD Ot I87.323 CHRONIC VENOUS HTN W INFLAMMATION OF BERNICE 04/21/2019 LILLIAN PARSONS MD, Ot L97.522 NON-PRS CHRONIC ULCER OTH PRT LEFT FOOT 04/21/2019 LILLIAN PARSONS MD Ot E11.621 TYPE 2 DIABETES MELLITUS WITH FOOT ULCER 04/21/2019 LILLIAN PARSONS MD Ot 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 04/21/2019 LILLIAN PARSONS MD Ot I87.323 CHRONIC VENOUS HTN W INFLAMMATION OF BERNICE 04/21/2019 LILLIAN PARSONS MD Ot L97.522 NON-PRS CHRONIC ULCER OTH PRT LEFT FOOT 04/21/2019 LILLIAN PARSONS MD Ot E11.621 TYPE 2 DIABETES MELLITUS WITH FOOT ULCER 04/21/2019 LILLIAN PARSONS MD Ot I87.323 CHRONIC VENOUS HTN W INFLAMMATION OF BERNICE 04/21/2019 LILLIAN PARSONS MD Ot L97.522 NON-PRS CHRONIC ULCER OTH PRT LEFT FOOT 04/21/2019 LILLIAN PARSONS MD Ot E11.621 TYPE 2 DIABETES MELLITUS WITH FOOT ULCER 04/21/2019 LILLIAN PARSONS MD Ot I87.323 CHRONIC VENOUS HTN W INFLAMMATION OF BERNICE 04/21/2019 LILLIAN PARSONS MD Ot L97.522 NON-PRS CHRONIC ULCER OTH PRT LEFT FOOT 04/21/2019 LILLIAN PARSONS MD Ot E11.621 TYPE 2 DIABETES MELLITUS WITH FOOT ULCER 04/21/2019 LILLIAN PARSONS MD Ot I87.323 CHRONIC VENOUS HTN W INFLAMMATION OF BERNICE 04/21/2019 LILLIAN PARSONS MD Ot L97.522 NON-PRS CHRONIC ULCER OTH PRT LEFT FOOT 04/21/2019 LILLIAN PARSONS MD Ot E11.621 TYPE 2 DIABETES MELLITUS WITH FOOT ULCER 04/21/2019 LILLIAN PARSONS MD Ot I87.323 CHRONIC VENOUS HTN W INFLAMMATION OF BERNICE 04/21/2019 LILLIAN PARSONS MD Ot L97.522 NON-PRS CHRONIC ULCER OTH PRT LEFT FOOT 04/21/2019 LILLIAN PARSONS MD Ot E11.621 TYPE 2 DIABETES MELLITUS WITH FOOT ULCER 04/21/2019 LILLIAN PARSONS MD Ot I87.323 CHRONIC VENOUS HTN W INFLAMMATION OF BERNICE 04/21/2019 LILLIAN PARSONS MD Ot L97.522 NON-PRS CHRONIC ULCER OTH PRT LEFT FOOT 04/21/2019 LILLIAN PARSONS MD, Ot E11.621 TYPE 2 DIABETES MELLITUS WITH FOOT ULCER 04/21/2019 LILLIAN PARSONS MD Ot I87.323 CHRONIC VENOUS HTN W INFLAMMATION OF BERNICE 04/21/2019 LILLIAN PARSONS MD Ot L97.522 NON-PRS CHRONIC ULCER OTH PRT LEFT FOOT 04/21/2019 RAYMUNDO HERNANDEZ RETAIL DIRECTOR Ot E80.6 OTHER DISORDERS OF BILIRUBIN METABOLISM 04/21/2019 RAYMUNDO HERNANDEZ RETAIL DIRECTOR Ot K82.8 OTHER SPECIFIED DISEASES OF GALLBLADDER 04/21/2019 GARRETT JAVIER MD Ot C61 MALIGNANT NEOPLASM OF PROSTATE 04/21/2019 LILLIAN SMILEY MD Ot G47.33 OBSTRUCTIVE SLEEP APNEA (ADULT) (PEDIATR 04/21/2019 GARRETT JAVIER MD Ot C61 MALIGNANT NEOPLASM OF PROSTATE 04/21/2019 GARRETT JAVIER MD Ot C79.51 SECONDARY MALIGNANT NEOPLASM OF BONE 04/21/2019 GARRETT JAVIER MD Ot D64.9 ANEMIA, UNSPECIFIED 04/21/2019 GARRETT JAVIER MD Ot E03.9 HYPOTHYROIDISM, UNSPECIFIED 04/21/2019 GARRETT JAVIER MD Ot 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 04/21/2019 GARRETT JAVIER MD Ot I10 ESSENTIAL (PRIMARY) HYPERTENSION 04/21/2019 GARRETT JAVIER MD Ot I25.10 ATHSCL HEART DISEASE OF [place] CORONARY 04/21/2019 GARRETT JAVIER MD Ot I73.9 PERIPHERAL VASCULAR DISEASE, UNSPECIFIED 04/21/2019 GARRETT JAVIER MD Ot Z79.82 [facility] (CURRENT) USE OF ASPIRIN 04/21/2019 GARRETT JAVIER MD Ot Z79.899 OTHER PEDIATRIC IMMUNOLOGIST (CURRENT) DRUG THERAPY 04/21/2019 GARRETT JAVIER MD Ot Z92.3 PERSONAL HISTORY OF IRRADIATION 04/21/2019 SUMMER CHERY MD Ot I10 ESSENTIAL (PRIMARY) HYPERTENSION 04/21/2019 SUMMER CHERY MD Ot I25. 10 ATHSCL HEART DISEASE OF [place] CORONARY 04/21/2019 SUMMER CHERY MD Ot I36. 1 NONRHEUMATIC TRICUSPID (VALVE) INSUFFICI 04/21/2019 SUMMER CHERY MD Ot I73. 9 PERIPHERAL VASCULAR DISEASE, UNSPECIFIED 04/21/2019 SUMMER CHERY MD Ot Z72. 0 TOBACCO USE 04/21/2019 GARRETT JAVIER MD Ot C61 MALIGNANT NEOPLASM OF PROSTATE 04/21/2019 GARRETT JAVIER MD Ot C79.51 SECONDARY MALIGNANT NEOPLASM OF BONE 04/21/2019 GARRETT JAVIER MD Ot D64.9 ANEMIA, UNSPECIFIED 04/21/2019 GARRETT JAVIER MD Ot E03.9 HYPOTHYROIDISM, UNSPECIFIED 04/21/2019 GARRETT JAVIER MD Ot 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 04/21/2019 GARRETT JAVIER MD Ot I10 ESSENTIAL (PRIMARY) HYPERTENSION 04/21/2019 GARRETT JAVIER MD Ot I25.10 ATHSCL HEART DISEASE OF [place] CORONARY 04/21/2019 GARRETT JAVIER MD Ot I73.9 PERIPHERAL VASCULAR DISEASE, UNSPECIFIED 04/21/2019 GARRETT JAVIER MD Ot Z79.82 [facility] (CURRENT) USE OF ASPIRIN 04/21/2019 GARRETT JAVIER MD Ot Z79.899 OTHER PEDIATRIC IMMUNOLOGIST (CURRENT) DRUG THERAPY 04/21/2019 GARRETT JAVIER MD Ot Z92.3 PERSONAL HISTORY OF IRRADIATION 05/26/2019 GARRETT JAVIER MD Ot C61 MALIGNANT NEOPLASM OF PROSTATE 05/26/2019 GARRETT JAVIER MD Ot C79.51 SECONDARY MALIGNANT NEOPLASM OF BONE 05/26/2019 GARRETT JAVEIR MD Ot D64.9 ANEMIA, UNSPECIFIED 05/26/2019 GARRETT JAVIER MD Ot E03.9 HYPOTHYROIDISM, UNSPECIFIED 05/26/2019 GARRETT JAVIER MD Ot 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 05/26/2019 GARRETT JAVIER MD Ot I10 ESSENTIAL (PRIMARY) HYPERTENSION 05/26/2019 GARRETT JAVIER MD Ot I25.10 ATHSCL HEART DISEASE OF [place] CORONARY 05/26/2019 GARRETT JAVIER MD Ot I73.9 PERIPHERAL VASCULAR DISEASE, UNSPECIFIED 05/26/2019 GARRETT JAVIER MD Ot 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 05/26/2019 GARRETT JAVIER MD Ot Z79.899 OTHER PEDIATRIC IMMUNOLOGIST (CURRENT) DRUG THERAPY 05/26/2019 GARRETT JAVIER MD Ot Z92.3 PERSONAL HISTORY OF IRRADIATION 07/20/2019 GARRETT JAVIER MD Ot C61 MALIGNANT NEOPLASM OF PROSTATE 07/20/2019 GARRETT JAVIER MD Ot C79.51 SECONDARY MALIGNANT NEOPLASM OF BONE 07/20/2019 GARRETT JAVIER MD Ot D64.9 ANEMIA, UNSPECIFIED 07/20/2019 GARRETT JAVIER MD Ot E03.9 HYPOTHYROIDISM, UNSPECIFIED 07/20/2019 GARRETT JAVIER MD Ot 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 07/20/2019 GARRETT JAVIER MD Ot I10 ESSENTIAL (PRIMARY) HYPERTENSION 07/20/2019 GARRETT JAVIER MD Ot I25.10 ATHSCL HEART DISEASE OF [place] CORONARY 07/20/2019 GARRETT JAVIER MD Ot I73.9 PERIPHERAL VASCULAR DISEASE, UNSPECIFIED 07/20/2019 GARRETT JAVIER MD Ot Z79.82 [facility] (CURRENT) USE OF ASPIRIN 07/20/2019 GARRETT JAVIER MD Ot Z79.899 OTHER PEDIATRIC IMMUNOLOGIST (CURRENT) DRUG THERAPY 07/20/2019 GARRETT JAVIER MD Ot Z92.3 PERSONAL HISTORY OF IRRADIATION 07/23/2019 GARRETT JAVIER MD Ot C61 MALIGNANT NEOPLASM OF PROSTATE 07/23/2019 GARRETT JAVIER MD Ot C79.51 SECONDARY MALIGNANT NEOPLASM OF BONE 07/23/2019 GARRETT JAVIER MD Ot D64.9 ANEMIA, UNSPECIFIED 07/23/2019 GARRETT JAVIER MD Ot E03.9 HYPOTHYROIDISM, UNSPECIFIED 07/23/2019 GARRETT JAVIER MD Ot 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 07/23/2019 GARRETT JAVIER MD Ot I10 ESSENTIAL (PRIMARY) HYPERTENSION 07/23/2019 GARRETT JAVIER MD Ot I25.10 ATHSCL HEART DISEASE OF [place] CORONARY 07/23/2019 GARRETT JAVIER MD Ot I73.9 PERIPHERAL VASCULAR DISEASE, UNSPECIFIED 07/23/2019 GARRETT JAVIER MD Ot Z79.82 [facility] (CURRENT) USE OF ASPIRIN 07/23/2019 GARRETT JAVIER MD Ot Z79.899 OTHER [facility] (CURRENT) DRUG THERAPY 07/23/2019 GARRETT JAVIER MD Ot Z92.3 PERSONAL HISTORY OF IRRADIATION 08/06/2019 GARRETT JAVIER MD Ot C61 MALIGNANT NEOPLASM OF PROSTATE 08/06/2019 GARRETT JAVIER MD Ot C79.51 SECONDARY MALIGNANT NEOPLASM OF BONE 08/06/2019 GARRETT JAVIER MD Ot D64.9 ANEMIA, UNSPECIFIED 08/06/2019 GARRETT JAVIER MD Ot E03.9 HYPOTHYROIDISM, UNSPECIFIED 08/06/2019 GARRETT JAVIER MD Ot 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 08/06/2019 GARRETT AJVIER MD Ot I10 ESSENTIAL (PRIMARY) HYPERTENSION 08/06/2019 GARRETT JAVIER MD Ot I25.10 ATHSCL HEART DISEASE OF [place] CORONARY 08/06/2019 GARRETT JAVIER MD Ot I73.9 PERIPHERAL VASCULAR DISEASE, UNSPECIFIED 08/06/2019 GARRETT JAVIER MD Ot 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 08/06/2019 GARRETT JAVIER MD Ot Z79.899 OTHER [facility] (CURRENT) DRUG THERAPY 08/06/2019 GARRETT JAVIER MD Ot Z92.3 PERSONAL HISTORY OF IRRADIATION 09/12/2019 GARRETT JAVIER MD Ot C61 MALIGNANT NEOPLASM OF PROSTATE 09/12/2019 GARRETT JAVIER MD Ot C79.51 SECONDARY MALIGNANT NEOPLASM OF BONE 09/12/2019 GARRETT JAVIER MD Ot D64.9 ANEMIA, UNSPECIFIED 09/12/2019 GARRETT JAVIER MD Ot E03.9 HYPOTHYROIDISM, UNSPECIFIED 09/12/2019 GARRETT JAVIER MD Ot 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 09/12/2019 GARRETT JAVIER MD Ot I10 ESSENTIAL (PRIMARY) HYPERTENSION 09/12/2019 GARRETT JAVIER MD Ot I25.10 ATHSCL HEART DISEASE OF [place] CORONARY 09/12/2019 GARRETT JAVIER MD Ot I73.9 PERIPHERAL VASCULAR DISEASE, UNSPECIFIED 09/12/2019 GARRETT JAVIER MD Ot 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 09/12/2019 GARRETT JAVIER MD Ot Z79.899 OTHER [facility] (CURRENT) DRUG THERAPY 09/12/2019 GARRETT JAVIER MD Ot Z92.3 PERSONAL HISTORY OF IRRADIATION 10/22/2019 GARRETT JAVIER MD Ot C61 MALIGNANT NEOPLASM OF PROSTATE 10/22/2019 GARRETT JAVIER MD Ot C79.51 SECONDARY MALIGNANT NEOPLASM OF BONE 10/22/2019 GARRETT JAVIER MD Ot D64.9 ANEMIA, UNSPECIFIED 10/22/2019 GARRETT JAVIER MD Ot E03.9 HYPOTHYROIDISM, UNSPECIFIED 10/22/2019 GARRETT JAVIER MD Ot 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 10/22/2019 GARRETT JAVIER MD Ot I10 ESSENTIAL (PRIMARY) HYPERTENSION 10/22/2019 GARRETT JAVIER MD Ot I25.10 ATHSCL HEART DISEASE OF [place] CORONARY 10/22/2019 GARRETT JAVIER MD Ot I73.9 PERIPHERAL VASCULAR DISEASE, UNSPECIFIED 10/22/2019 GARRETT JAVIER MD Ot 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 10/22/2019 GARRETT JAVIER MD Ot Z79.899 OTHER PEDIATRIC IMMUNOLOGIST (CURRENT) DRUG THERAPY 10/22/2019 GARRETT JAVIER MD Ot Z92.3 PERSONAL HISTORY OF IRRADIATION 10/23/2019 GARRETT JAVIER MD Ot C61 MALIGNANT NEOPLASM OF PROSTATE 10/23/2019 GARRETT JAVIER MD Ot C79.51 SECONDARY MALIGNANT NEOPLASM OF BONE 10/23/2019 GARRETT JAVIER MD Ot D64.9 ANEMIA, UNSPECIFIED 10/23/2019 GARRETT JAVIER MD Ot E03.9 HYPOTHYROIDISM, UNSPECIFIED 10/23/2019 GARRETT JAVIER MD Ot 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 10/23/2019 GARRETT JAVIER MD Ot I10 ESSENTIAL (PRIMARY) HYPERTENSION 10/23/2019 GARRETT JAVIER MD Ot I25.10 ATHSCL HEART DISEASE OF [place] CORONARY 10/23/2019 GARRETT JAVIER MD Ot I73.9 PERIPHERAL VASCULAR DISEASE, UNSPECIFIED 10/23/2019 GARRETT JAVIER MD Ot Z79.82 [facility] (CURRENT) USE OF ASPIRIN 10/23/2019 GARRETT JAVIER MD Ot Z79.899 OTHER [facility] (CURRENT) DRUG THERAPY 10/23/2019 GARRETT JAVIER MD Ot Z92.3 PERSONAL HISTORY OF IRRADIATION 10/28/2019 GARRETT JAVIER MD Ot C61 MALIGNANT NEOPLASM OF PROSTATE 10/28/2019 GARRETT JAVIER MD Ot C79.51 SECONDARY MALIGNANT NEOPLASM OF BONE 10/28/2019 GARRETT JAVIER MD Ot D64.9 ANEMIA, UNSPECIFIED 10/28/2019 GARRETT JAVIER MD Ot E03.9 HYPOTHYROIDISM, UNSPECIFIED 10/28/2019 GARRETT JAVIER MD Ot 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 10/28/2019 GARRETT JAVIER MD Ot I10 ESSENTIAL (PRIMARY) HYPERTENSION 10/28/2019 GARRETT JAVIER MD Ot I25.10 ATHSCL HEART DISEASE OF [place] CORONARY 10/28/2019 GARRETT JAVIER MD Ot I73.9 PERIPHERAL VASCULAR DISEASE, UNSPECIFIED 10/28/2019 GARRETT JAVIER MD Ot Z79.82 [facility] (CURRENT) USE OF ASPIRIN 10/28/2019 GARRETT JAVIER MD, Ot Z79.899 OTHER PEDIATRIC IMMUNOLOGIST (CURRENT) DRUG THERAPY 10/28/2019 GARRETT JAVIER MD, Ot Z92.3 PERSONAL HISTORY OF IRRADIATION 10/28/2019 GAVIN HENRIQUEZ MD Ot 280.9 IRON DEFIC ANEMIA NOS 10/28/2019 GAVIN HENRIQUEZ MD Ot 536.8 STOMACH FUNCTION DIS NEC 10/28/2019 GAVIN HENRIQUEZ MD Ot E934.0 ADV EFF IRON COMPOUNDS 10/28/2019 LILLIAN PARSONS MD, Ot E11.621 TYPE 2 DIABETES MELLITUS WITH FOOT ULCER 10/28/2019 LILLIAN PARSONS MD, Ot E11.65 TYPE 2 DIABETES MELLITUS WITH HYPERGLYCE 10/28/2019 LILLIAN PARSONS MD Ot 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 10/28/2019 LILLIAN PARSONS MD Ot 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 10/28/2019 LILLIAN PARSONS MD Ot I87.323 CHRONIC VENOUS HTN W INFLAMMATION OF [place] 10/28/2019 LILLIAN PARSONS MD Ot L97.422 NON-PRS CHR ULCER OF LEFT HEEL AND MIDFO 10/28/2019 LILLIAN PARSONS MD Ot L97.522 NON-PRS CHRONIC ULCER OTH PRT LEFT FOOT 10/28/2019 LILLIAN PARSONS MD Ot E11.621 TYPE 2 DIABETES MELLITUS WITH FOOT ULCER 10/28/2019 LILLIAN PARSONS MD, Ot E11.65 TYPE 2 DIABETES MELLITUS WITH HYPERGLYCE 10/28/2019 LILLIAN PARSONS MD Ot 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 10/28/2019 LILLIAN PARSONS MD Ot 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 10/28/2019 LILLIAN PARSONS MD Ot I87.323 CHRONIC VENOUS HTN W INFLAMMATION OF [place] 10/28/2019 LILLIAN PARSONS MD Ot L97.422 NON-PRS CHR ULCER OF LEFT HEEL AND MIDFO 10/28/2019 LILLIAN PARSONS MD Ot L97.522 NON-PRS CHRONIC ULCER OTH PRT LEFT FOOT 10/28/2019 LILLIAN PARSONS MD Ot E11.621 TYPE 2 DIABETES MELLITUS WITH FOOT ULCER 10/28/2019 LILLIAN PARSONS MD Ot 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 10/28/2019 LILLIAN PARSONS MD Ot 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 10/28/2019 LILLIAN PARSONS MD Ot I87.323 CHRONIC VENOUS HTN W INFLAMMATION OF [place] 10/28/2019 LILLIAN PARSONS MD Ot L97.422 NON-PRS CHR ULCER OF LEFT HEEL AND MIDFO 10/28/2019 LILLIAN PARSONS MD Ot L97.522 NON-PRS CHRONIC ULCER OTH PRT LEFT FOOT 10/28/2019 LILLIAN PARSONS MD Ot R60 .0 LOCALIZED EDEMA 10/28/2019 INDERJIT DAWSON RETAIL DIRECTOR Ot E11.621 TYPE 2 DIABETES MELLITUS WITH FOOT ULCER 10/28/2019 INDERJIT DAWSON RETAIL DIRECTOR Ot E11.65 TYPE 2 DIABETES MELLITUS WITH HYPERGLYCE 10/28/2019 INDERJIT DAWSON RETAIL DIRECTOR Ot 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 10/28/2019 INDERJIT DAWSON RETAIL DIRECTOR Ot 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 10/28/2019 INDERJIT DAWSON RETAIL DIRECTOR Ot I87.323 CHRONIC VENOUS HTN W INFLAMMATION OF [place] 10/28/2019 INDERJIT DAWSON RETAIL DIRECTOR Ot L97.422 NON-PRS CHR ULCER OF LEFT HEEL AND MIDFO 10/28/2019 INDERJIT DAWSON RETAIL DIRECTOR Ot L97.522 NON-PRS CHRONIC ULCER OTH PRT LEFT FOOT 10/28/2019 LILLIAN PARSONS MD Ot E11.621 TYPE 2 DIABETES MELLITUS WITH FOOT ULCER 10/28/2019 LILLIAN PARSONS MD Ot E11.65 TYPE 2 DIABETES MELLITUS WITH HYPERGLYCE 10/28/2019 LILLIAN PARSONS MD Ot 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 10/28/2019 LILLIAN PARSONS MD Ot 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 10/28/2019 LILLIAN PARSONS MD Ot I87.323 CHRONIC VENOUS HTN W INFLAMMATION OF [place] 10/28/2019 LILLIAN PARSONS MD Ot L97.422 NON-PRS CHR ULCER OF LEFT HEEL AND MIDFO 10/28/2019 LILLIAN PARSONS MD Ot L97.522 NON-PRS CHRONIC ULCER OTH PRT LEFT FOOT 10/28/2019 LILLIAN PARSONS MD Ot E11.621 TYPE 2 DIABETES MELLITUS WITH FOOT ULCER 10/28/2019 LILLIAN PARSONS MD Ot E11.65 TYPE 2 DIABETES MELLITUS WITH HYPERGLYCE 10/28/2019 LILLIAN PARSONS MD Ot 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 10/28/2019 LILLIAN PARSONS MD Ot 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 10/28/2019 LILLIAN PARSONS MD Ot I87.323 CHRONIC VENOUS HTN W INFLAMMATION OF [place] 10/28/2019 LILLIAN PARSONS MD Ot L97.422 NON-PRS CHR ULCER OF LEFT HEEL AND MIDFO 10/28/2019 LILLIAN PARSONS MD Ot L97.522 NON-PRS CHRONIC ULCER OTH PRT LEFT FOOT 10/28/2019 LILLIAN PARSONS MD Ot E11.621 TYPE 2 DIABETES MELLITUS WITH FOOT ULCER 10/28/2019 LILLIAN PARSONS MD Ot E11.65 TYPE 2 DIABETES MELLITUS WITH HYPERGLYCE 10/28/2019 LILLIAN PARSONS MD Ot 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 10/28/2019 LILLIAN PARSONS MD Ot 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 10/28/2019 LILLIAN PARSONS MD Ot I87.323 CHRONIC VENOUS HTN W INFLAMMATION OF [place] 10/28/2019 LILLIAN PARSONS MD Ot L97.422 NON-PRS CHR ULCER OF LEFT HEEL AND MIDFO 10/28/2019 LILLIAN PARSONS MD Ot L97.522 NON-PRS CHRONIC ULCER OTH PRT LEFT FOOT 10/28/2019 LILLIAN PARSONS MD Ot E11.621 TYPE 2 DIABETES MELLITUS WITH FOOT ULCER 10/28/2019 LILLIAN PARSONS MD Ot E11.65 TYPE 2 DIABETES MELLITUS WITH HYPERGLYCE 10/28/2019 LILLIAN PARSONS MD Ot 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 10/28/2019 LILLIAN PARSONS MD Ot 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 10/28/2019 LILLIAN PARSONS MD Ot I87.323 CHRONIC VENOUS HTN W INFLAMMATION OF [place] 10/28/2019 LILLIAN PARSONS MD Ot L97.422 NON-PRS CHR ULCER OF LEFT HEEL AND MIDFO 10/28/2019 LILLIAN PARSONS MD Ot L97.522 NON-PRS CHRONIC ULCER OTH PRT LEFT FOOT 10/28/2019 LILLIAN PARSONS MD Ot E11.621 TYPE 2 DIABETES MELLITUS WITH FOOT ULCER 10/28/2019 LILLIAN PARSONS MD Ot E11.65 TYPE 2 DIABETES MELLITUS WITH HYPERGLYCE 10/28/2019 LILLIAN PARSONS MD Ot 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 10/28/2019 LILLIAN PARSONS MD Ot I70.245 ATHSCL [place]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 C 10/28/2019 LILLIAN PARSONS MD Ot L97.422 NON-PRS CHR ULCER OF LEFT HEEL AND MIDFO 10/28/2019 LILLIAN PARSONS MD Ot L97.522 NON-PRS CHRONIC ULCER OTH PRT LEFT FOOT 10/28/2019 LILLIAN PARSONS MD Ot E11.621 TYPE 2 DIABETES MELLITUS WITH FOOT ULCER 10/28/2019 LILLIAN PARSONS MD Ot E11.65 TYPE 2 DIABETES MELLITUS WITH HYPERGLYCE 10/28/2019 LILLIAN PARSONS MD Ot 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 10/28/2019 LILLIAN PARSONS MD Ot I70.245 ATHSCL [place]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 C 10/28/2019 LILLIAN PARSONS MD Ot I87.323 CHRONIC VENOUS HTN W INFLAMMATION OF [place] 10/28/2019 LILLIAN PARSONS MD Ot L97.422 NON-PRS CHR ULCER OF LEFT HEEL AND MIDFO 10/28/2019 LILLIAN PARSONS MD Ot L97.522 NON-PRS CHRONIC ULCER OTH PRT LEFT FOOT 10/28/2019 LILLIAN PARSONS MD Ot E11.621 TYPE 2 DIABETES MELLITUS WITH FOOT ULCER 10/28/2019 LILLIAN PARSONS MD Ot E11.65 TYPE 2 DIABETES MELLITUS WITH HYPERGLYCE 10/28/2019 LILLIAN PARSONS MD Ot 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 10/28/2019 LILLIAN PARSONS MD Ot 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 10/28/2019 LILLIAN PARSONS MD Ot I87.323 CHRONIC VENOUS HTN W INFLAMMATION OF [place] 10/28/2019 LILLIAN PARSONS MD Ot L97.422 NON-PRS CHR ULCER OF LEFT HEEL AND MIDFO 10/28/2019 LILLIAN PARSONS MD Ot L97.522 NON-PRS CHRONIC ULCER OTH PRT LEFT FOOT 10/28/2019 LILLIAN PARSONS MD Ot E11.621 TYPE 2 DIABETES MELLITUS WITH FOOT ULCER 10/28/2019 LILLIAN PARSONS MD Ot 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 10/28/2019 LILLIAN PARSONS MD Ot I87.323 CHRONIC VENOUS HTN W INFLAMMATION OF [place] 10/28/2019 LILLIAN PARSONS MD Ot L97.522 NON-PRS CHRONIC ULCER OTH PRT LEFT FOOT 10/28/2019 LILLIAN PARSONS MD Ot E11.621 TYPE 2 DIABETES MELLITUS WITH FOOT ULCER 10/28/2019 LILLIAN PARSONS MD Ot 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 10/28/2019 LILLIAN PARSONS MD Ot I87.323 CHRONIC VENOUS HTN W INFLAMMATION OF [place] 10/28/2019 LILLIAN PARSONS MD Ot L97.522 NON-PRS CHRONIC ULCER OTH PRT LEFT FOOT 10/28/2019 LILLIAN PARSONS MD Ot E11.621 TYPE 2 DIABETES MELLITUS WITH FOOT ULCER 10/28/2019 LILLIAN PARSONS MD Ot 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 10/28/2019 LILLIAN PARSONS MD Ot I87.323 CHRONIC VENOUS HTN W INFLAMMATION OF [place] 10/28/2019 LILLIAN PARSONS MD Ot L97.522 NON-PRS CHRONIC ULCER OTH PRT LEFT FOOT 10/28/2019 LILLIAN PARSONS MD Ot E11.621 TYPE 2 DIABETES MELLITUS WITH FOOT ULCER 10/28/2019 LILLIAN PARSONS MD Ot 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 10/28/2019 LILLIAN PARSONS MD Ot I87.323 CHRONIC VENOUS HTN W INFLAMMATION OF [place] 10/28/2019 LILLIAN PARSONS MD Ot L97.522 NON-PRS CHRONIC ULCER OTH PRT LEFT FOOT 10/28/2019 LILLIAN PARSONS MD Ot E11.621 TYPE 2 DIABETES MELLITUS WITH FOOT ULCER 10/28/2019 LILLIAN PARSONS MD Ot I87.323 CHRONIC VENOUS HTN W INFLAMMATION OF [place] 10/28/2019 LILLIAN PARSONS MD Ot L97.522 NON-PRS CHRONIC ULCER OTH PRT LEFT FOOT 10/28/2019 LILLIAN PARSONS MD Ot E11.621 TYPE 2 DIABETES MELLITUS WITH FOOT ULCER 10/28/2019 LILLIAN PARSONS MD Ot I87.323 CHRONIC VENOUS HTN W INFLAMMATION OF [place] 10/28/2019 LILLIAN PARSONS MD Ot L97.522 NON-PRS CHRONIC ULCER OTH PRT LEFT FOOT 10/28/2019 LILLIAN PARSONS MD Ot E11.621 TYPE 2 DIABETES MELLITUS WITH FOOT ULCER 10/28/2019 LILLIAN PARSONS MD Ot I87.323 CHRONIC VENOUS HTN W INFLAMMATION OF [place] 10/28/2019 LILLIAN PARSONS MD Ot L97.522 NON-PRS CHRONIC ULCER OTH PRT LEFT FOOT 10/28/2019 LILLIAN PARSONS MD Ot E11.621 TYPE 2 DIABETES MELLITUS WITH FOOT ULCER 10/28/2019 LILLIAN PARSONS MD Ot I87.323 CHRONIC VENOUS HTN W INFLAMMATION OF [place] 10/28/2019 LILLIAN PARSONS MD Ot L97.522 NON-PRS CHRONIC ULCER OTH PRT LEFT FOOT 10/28/2019 LILLIAN PARSONS MD Ot E11.621 TYPE 2 DIABETES MELLITUS WITH FOOT ULCER 10/28/2019 LILLIAN PARSONS MD Ot I87.323 CHRONIC VENOUS HTN W INFLAMMATION OF [place] 10/28/2019 LILLIAN PARSONS MD Ot L97.522 NON-PRS CHRONIC ULCER OTH PRT LEFT FOOT 10/28/2019 LILLIAN PARSONS MD Ot E11.621 TYPE 2 DIABETES MELLITUS WITH FOOT ULCER 10/28/2019 LILLIAN PARSONS MD Ot I87.323 CHRONIC VENOUS HTN W INFLAMMATION OF [place] 10/28/2019 LILLIAN PARSONS MD Ot L97.522 NON-PRS CHRONIC ULCER OTH PRT LEFT FOOT 10/28/2019 RAYMUNDO HERNANDEZ RETAIL DIRECTOR Ot E80.6 OTHER DISORDERS OF BILIRUBIN METABOLISM 10/28/2019 RAYMUNDO HERNANDEZ RETAIL DIRECTOR Ot K82.8 OTHER SPECIFIED DISEASES OF GALLBLADDER 10/28/2019 GARRETT JAVIER MD, Ot C61 MALIGNANT NEOPLASM OF PROSTATE 10/28/2019 LILLIAN SMILEY MD Ot G47.33 OBSTRUCTIVE SLEEP APNEA (ADULT) (PEDIATR 10/28/2019 SUMMER CHERY MD Ot I10 ESSENTIAL (PRIMARY) HYPERTENSION 10/28/2019 SUMMER CHERY MD Ot I25. 10 ATHSCL HEART DISEASE OF [place] CORONARY 10/28/2019 SUMMER CHERY MD Ot I36. 1 NONRHEUMATIC TRICUSPID (VALVE) INSUFFICI 10/28/2019 SUMMER CHERY MD Ot I73. 9 PERIPHERAL VASCULAR DISEASE, UNSPECIFIED 10/28/2019 SUMMER CHERY MD Ot Z72. 0 TOBACCO USE 10/28/2019 GARRETT JAVIER MD, Ot C61 MALIGNANT NEOPLASM OF PROSTATE 10/28/2019 GARRETT JAVIER MD, Ot C79.51 SECONDARY MALIGNANT NEOPLASM OF BONE 10/28/2019 GARRETT JAVIER MD Ot D64.9 ANEMIA, UNSPECIFIED 10/28/2019 GARRETT JAVIER MD Ot E03.9 HYPOTHYROIDISM, UNSPECIFIED 10/28/2019 GARRETT JAVIER MD Ot 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 10/28/2019 GARRETT JAVIER MD Ot I10 ESSENTIAL (PRIMARY) HYPERTENSION 10/28/2019 GARRETT JAVIER MD Ot I25.10 ATHSCL HEART DISEASE OF [place] CORONARY 10/28/2019 GARRETT JAVIER MD Ot I73.9 PERIPHERAL VASCULAR DISEASE, UNSPECIFIED 10/28/2019 GARRETT JAVIER MD Ot Z79.82 [facility] (CURRENT) USE OF ASPIRIN 10/28/2019 GARRETT AJVIER MD Ot Z79.899 OTHER [facility] (CURRENT) DRUG THERAPY 10/28/2019 GARRETT JAVIER MD Ot Z92.3 PERSONAL HISTORY OF IRRADIATION 11/07/2019 GARRETT JAVIER MD Ot C61 MALIGNANT NEOPLASM OF PROSTATE 11/07/2019 GARRETT JAVIER MD Ot C79.51 SECONDARY MALIGNANT NEOPLASM OF BONE 11/07/2019 GARRETT JAVIER MD Ot D64.9 ANEMIA, UNSPECIFIED 11/07/2019 GARRETT JAVIER MD Ot E03.9 HYPOTHYROIDISM, UNSPECIFIED 11/07/2019 GARRETT JAVIER MD Ot 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 11/07/2019 GARRETT JAVIER MD Ot I10 ESSENTIAL (PRIMARY) HYPERTENSION 11/07/2019 GARRETT JAVIER MD Ot I25.10 ATHSCL HEART DISEASE OF [place] CORONARY 11/07/2019 GARRETT JAVIER MD Ot I73.9 PERIPHERAL VASCULAR DISEASE, UNSPECIFIED 11/07/2019 GARRETT JAVIER MD Ot R59.0 LOCALIZED ENLARGED LYMPH NODES 11/07/2019 GARRETT JAVIER MD Ot Z79.82 [facility] (CURRENT) USE OF ASPIRIN 11/07/2019 GARRETT JAVIER MD Ot Z79.899 OTHER [facility] (CURRENT) DRUG THERAPY 11/07/2019 GARRETT JAVIER MD Ot Z90.49 ACQUIRED ABSENCE OF OTHER SPECIFIED PART 11/07/2019 GARRETT JAVIER MD Ot Z90.89 ACQUIRED ABSENCE OF OTHER ORGANS 11/07/2019 GARRETT JAVIER MD Ot Z92.3 PERSONAL HISTORY OF IRRADIATION 11/07/2019 GARRETT JAVIER MD Ot Z95.5 PRESENCE OF CORONARY ANGIOPLASTY IMPLANT 11/07/2019 GARRETT JAVIER MD Ot Z98.890 OTHER SPECIFIED POSTPROCEDURAL STATES 01/07/2020 GARRETT JAVIER MD Ot C61 MALIGNANT NEOPLASM OF PROSTATE 01/07/2020 GARRETT JAVIER MD Ot C79.51 SECONDARY MALIGNANT NEOPLASM OF BONE 01/07/2020 GARRETT JAVIER MD Ot D64.9 ANEMIA, UNSPECIFIED 01/07/2020 GARRETT JAVIER MD Ot E03.9 HYPOTHYROIDISM, UNSPECIFIED 01/07/2020 GARRETT JAVIER MD Ot 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 01/07/2020 GARRETT JAVIER MD Ot I10 ESSENTIAL (PRIMARY) HYPERTENSION 01/07/2020 GARRETT JAVIER MD Ot I25.10 ATHSCL HEART DISEASE OF [place] CORONARY 01/07/2020 GARRETT JAVIER MD Ot I73.9 PERIPHERAL VASCULAR DISEASE, UNSPECIFIED 01/07/2020 GARRETT JAVIER MD Ot R59.0 LOCALIZED ENLARGED LYMPH NODES 01/07/2020 GARRETT JAVIER MD Ot 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 01/07/2020 GARRETT JAVIER MD Ot Z79.899 OTHER [facility] (CURRENT) DRUG THERAPY 01/07/2020 GARRETT JAVIER MD Ot Z90.49 ACQUIRED ABSENCE OF OTHER SPECIFIED PART 01/07/2020 GARRETT JAVIER MD, Ot Z90.89 ACQUIRED ABSENCE OF OTHER ORGANS 01/07/2020 GARRETT JAVIER MD, Ot Z92.3 PERSONAL HISTORY OF IRRADIATION 01/07/2020 GARRETT JAVIER MD, Ot Z95.5 PRESENCE OF CORONARY ANGIOPLASTY IMPLANT 01/07/2020 GARRETT JAVIER MD, Ot Z98.890 OTHER SPECIFIED POSTPROCEDURAL STATES Procedures Code Description Performed By Per formed On 45.13 OTHE R ENDOSCOPY OF SM INTEST 07/31/2014 45.23 COLO NOSCOPY 07/31/2014 Results Test Result Range Bacteria identification in isolate by an aerobe culture - 04/09/17 14:42 QUANTITY OF GROWTH Scant Growth NRG Bacteria identification in isolate by anaerobe culture [id number] NRG Gram stain microscopy - 04/09/17 14:42 GRAM STAIN RESULT FEW WBC'S, NO BACTERIA OBSERVED NRG Bacteria identification in wound by cult ure - 04/09/17 14:42 Bacteria identification in wound by culture C STR/ SIM NRG FREE TEXT EXTERNAL ID BY [facility] 04/17/17 NRG QUANTITY OF GROWTH Scant Growth NRG MRSA AGAR MRSA isolated (Screening test for MRSA is positive) NRG CALL POSITIVES (F1 HELP) CALLED TO [facility] IN WO UND CARE 04/10 15:55 NRG Bacterial susceptibility panel - 7 14:42 Oxacillin susceptibility test by minimum inhibitory co ncentration >= NRG Gentamicin susceptibility test by minimum inhibitory c oncentration <= NRG Clindamycin susceptibility test by minimum inhibitory concentration <= NRG Erythromycin susceptibility test by minimum inhibitory concentration >= NRG Trimethoprim/sulfamethoxazole susceptibi lity test by minimum inhibitoryconcentration <= NRG Vancomycin susceptibility test by minimum inhibitory c oncentration <= NRG Levofloxacin susceptibility test by minimum inhibitory concentration >= NRG Rifampin susceptibility test by minimum inhibitory con centration <= NRG Tetracycline susceptibility test by minimum inhibitory concentration <= NRG Ciprofloxacin susceptibility test by minimum inhibitor y concentration R NRG Capillary blood glucose measurement by g lucometer (mass/volume) - 04/16/17 13:41 Capillary blood glucose measurement by glucometer (mas s/volume) 137 mg/dL 70-110 Automated blood complete blood count (he mogram) panel - 04/24/17 08:08 Blood leukocytes automated count (number/volume) 11.1 10*3/uL 4.3-11.0 Blood erythrocytes automated count (number/volume)

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
[2020-01-14 20:24] VITALS: BP 134/68
[2020-01-14] MEDS ORDERED: ONDANSETRON 4 MG/2 ML (SDV) Z0FRAN IV PRN (21:15)
[2020-01-14] MEDS ORDERED: fentaNYL INJECTION 100 MCG/2 ML AMP IV PRN (21:15)
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
[2020-01-14] MEDS: NS IV 1000 ML 1,000 ML IV SCH (21:45)
[2020-01-14 22:07] VITALS: BP 136/76
[2020-01-14] MEDS ORDERED: RT-ALBUTEROL SULF 2.5 MG/3 ML PRE-MIX VIAL INH PRN (22:15)
[2020-01-14] MEDS: GABAPENTIN 100 MG (NEURONTIN) CAP PO SCH (23:30)
[2020-01-14] MEDS: fentaNYL INJECTION 100 MCG/2 ML AMP IV PRN (23:30)
[2020-01-15] VITALS (7 sets, daily range): BP systolic 117–155; BP diastolic 57–87
[2020-01-15 05:44] LABS: BASOPHILS % (AUTO) 0 % (0-10); EOSINOPHILS # (AUTO) 0.4 10^3/uL (0.0-0.3); EOSINOPHILS % (AUTO) 4 % (0-10); HEMATOCRIT 32 % (40-54); HEMOGLOBIN 9.3 G/DL (13.3-17.7); LYMPHOCYTES # (AUTO) 0.8 X 10^3 (1.0-4.0); LYMPHOCYTES % (AUTO) 9 % (12-44); MEAN CORPUSCULAR HEMOGLOBIN 30 PG (25-34); MEAN CORPUSCULAR HGB CONC 29 G/DL (32-36); MEAN CORPUSCULAR VOLUME 100 FL (80-99); MEAN PLATELET VOLUME 9.5 FL (7.4-10.4); MONOCYTES # (AUTO) 0.6 X 10^3 (0.0-1.0); MONOCYTES % (AUTO) 7 % (0-12); NEUTROPHILS # (AUTO) 7.1 X 10^3 (1.8-7.8); NEUTROPHILS % (AUTO) 80 % (42-75); PLATELET COUNT 177 10^3/uL (130-400); RED CELL DISTRIBUTION WIDTH 17.1 % (10.0-14.5); WHITE BLOOD COUNT 8.8 10^3/uL (4.3-11.0)
[2020-01-15] MEDS: fentaNYL INJECTION 100 MCG/2 ML AMP IV PRN ×6 (05:53→20:05)
[2020-01-15 06:09] LABS: ALBUMIN 3.3 GM/DL (3.2-4.5); BILIRUBIN,TOTAL 0.8 MG/DL (0.1-1.0); CREATININE SERUM 1.73 MG/DL (0.60-1.30); TOTAL PROTEIN 6.1 GM/DL (6.4-8.2)
[2020-01-15] MEDS: NS IV 1000 ML 1,000 ML IV SCH ×2 (06:24→17:10)
[2020-01-15] MEDS: inSUlin ASPART (NovoLOG) 1 UNIT/0.01 ML (CHARGE PER UNIT) SC SCH ×4 (06:31→21:04)
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
[2020-01-15] MEDS ORDERED: OXYC10TA7 PO (09:02)
[2020-01-15] MEDS ORDERED: BISO-1 PO (09:02)
[2020-01-15] MEDS ORDERED: LEVO25TA5 PO (09:10)
[2020-01-15] MEDS ORDERED: INSU300I3 SQ (09:40)
--- NOTE | 2020-01-15 09:46 | NUR ---
SPOKE WITH THE PT, CALLED [facility] AND DR. SOTELO OFFICE TO COMPLETE THE MED REC [facility]-I SPOKE WITH THE OFFICE AND HE GETS SAMPLES FROM THEM, LAST PICKED UP 01-13-2020 #2 PENS/25 DAY SUPPLY WHEN I SPOKE WITH [facility] THEY LET ME KNOW THE DIRECTIONS ON THE LEVOTHYROXINE 25MCG SAY 1 TAB DAILY W/ 200MCG HOWEVER THEY HAVE NEVER FILLED A 200MCG (THEY HAVE AN ACTIVE ORDER ON HIS FILE BUT HAS NEVER BEEN REQUESTED). I THEN FOLLOWED UP WITH HIS PCP AND WAS TOLD THAT HIS DOSE IS 225MCG DAILY (25MCG +200MCG). I DID NOT INCLUDE THE 200MCG ON THE MED REC DUE TO IT NEVER BEING FILLED -BUT THE 25MCG IS ON THE MED REC FROM A PREVIOUS MED REC IN IT LISTED LASIX 20MG AND POTASSIUM ER 10MEQ BUT WHEN I MENTIONED THIS TO THE PT HE SAID HE NEVER TAKES THEM AND DOESNT LIKE THE SIDE EFFECTS- DUE TO THIS REASON I DID NOT INCLUDE EITHER ON THE MED REC THE FOLLOWING ARE FILL DATES FROM [facility]: 12-17-2019 LEVOTHYROXINE 25MCG #90/90DS 01-07-2020 GABAPENTIN 100MG #60/30DS 01-13-2020 BISOPROLOL/HCTZ 2.5/6.25MG #90/90DS 01-14-2020 OXYCODONE 10MG #150 OTC MEDS: ASPIRIN Addendum: 01/15/20 at 0954 by LAMONTE DELANEY CPhT THE NURSE DID MENTION THE PT BROUGHT IN HIS MEDICATIONS OF GABAPENTIN AND OXYCODONE AND THERE WERE IN LOCKUP IN THE MED ROOM
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
--- NOTE | 2020-01-15 11:45 | NUR ---
DR VEGA ORDERED PT AND BACK BRACE.
[2020-01-15] MEDS ORDERED: HYDROmorphone 2 MG/ML VIAL (DILAUDID) ONE (13:44)
[2020-01-15] MEDS: HYDROmorphone 2 MG/ML VIAL (DILAUDID) IV PRN (13:52)
--- NOTE | 2020-01-15 13:52 | NUR ---
DILAUDID 1 MG GIVEN IV ORDERED BY DR VEGA BEFORE PATIENT GOES TO CT SCAN, PATIENT C/O BACK PAIN, RATES PAIN 10 ON PAIN SCALE, PRN PAIN MEDS GIVEN ORDERED, LOWER LEGS EDEMATOUS AND RED, BLISTERS ON LOWER RIGHT LEG, TOES BECOME PURPLE WHEN SITTING UP. PEDAL PULSE PRESENT.
[2020-01-15] MEDS ORDERED: LORazepam INJ 2 MG/ML (ATIVAN) VIAL IVP PRN (14:00)
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
--- NOTE | 2020-01-15 15:21 | NUR ---
Pt expressing anxiety about continued care plans, states his family fears if he goes to a skilled nursing he will there. Explained the short-term aspect of rehab care in a intermediate facility. Contacted [facility] and they are still reviewing his information and have not yet accepted him. Pt interested in possible admission to Acute Rehab Unit and discussed with their Estimator Printing Plate Making for review if he met their criteria. Dr. Sorenson requesting teleconsultation by a spinal surgeon Did contact Dr. Julio Cesar Tillman at [address] and awaiting a call back. Will continue to follow and assist.
--- NOTE | 2020-01-15 16:00 | NUR ---
results of ct scan called to Dr Sanchez
--- NOTE | 2020-01-15 17:27 | NUR ---
's office called back and explained that Dr. Tillman no longer doing telecommunication appts. or consultations but would be able to see pt early next week at his office [facility]. Request made to cloud pt's CT scans to Dr. Tillman for his review ow and will contact Dr. Smith for any further plan of treatment. Advised Dr. Smith's office of Dr. Tillman's plan to review CT scans and also advised pt who was agreeable with plan.
[2020-01-15] MEDS: GABAPENTIN 100 MG (NEURONTIN) CAP PO SCH (18:44)
[2020-01-15] MEDS ORDERED: polyethylene glycoL POWDER 17 GM (MIRALAX) PACK PO SCH (21:00)
[2020-01-16] MEDS: GABAPENTIN 100 MG (NEURONTIN) CAP PO SCH (00:09)
[2020-01-16] MEDS: fentaNYL INJECTION 100 MCG/2 ML AMP IV PRN ×3 (00:12→04:08)
[2020-01-16 04:05] VITALS: BP 126/72
[2020-01-16] MEDS: NS IV 1000 ML 1,000 ML IV SCH (06:06)
[2020-01-16] MEDS: inSUlin ASPART (NovoLOG) 1 UNIT/0.01 ML (CHARGE PER UNIT) SC SCH (06:14)
[2020-01-16 06:27] LABS: MEAN PLATELET VOLUME 10.1 FL (7.4-10.4); RED CELL DISTRIBUTION WIDTH 16.9 % (10.0-14.5)
[2020-01-16 06:50] LABS: ALBUMIN 3.3 GM/DL (3.2-4.5); CREATININE SERUM 1.52 MG/DL (0.60-1.30); TOTAL PROTEIN 6.3 GM/DL (6.4-8.2)
[2020-01-16 08:00] VITALS: BP 137/75
[2020-01-16] MEDS: HYDROmorphone 2 MG/ML VIAL (DILAUDID) IV PRN ×2 (08:48→11:16)
--- NOTE | 2020-01-16 09:12 | Discharge Summary ---
GAVIN HENRIQUEZ MD 01/16/20 0912: Diagnosis/Chief Complaint Date of Admission Jan 14, 2020 at 19:40 Date of Discharge Discharge Summary Discharge Physical Examination Allergies: Coded Allergies: Sherri Known Allergies (Verified Allergy, Unknown, 04/26/06) Vitals & I&Os Vital Signs Date Time Temp Pulse Resp B/P (MAP) Pulse Ox O2 Delivery O2 Flow Rate FiO2 01/16/20 04:05 36.2 66 20 126/72 (90) 99 Nasal Cannula 3.00 Hospital Course Pending Labs Laboratory Tests 01/16/20 06:03: Glucometer 230 01/16/20 06:17: White Blood Count 9.0, Red Blood Count 3.05, Hemoglobin 9.0, Hematocrit 31, Mean Corpuscular Volume 100, Mean Corpuscular Hemoglobin 30, Mean Corpuscular Hemoglobin Concent 29, Red Cell Distribution Width 16.9, Platelet Count 171, Mean Platelet Volume 10.1, Sodium Level 138, Potassium Level 4.0, Chloride Level 97, Carbon Dioxide Level 32, Anion Gap 9, Blood Urea Nitrogen 19, Creatinine 1.52, Estimat Glomerular Filtration Rate 45, BUN/Creatinine Ratio 13, Glucose Level 237, Calcium Level 8.0, Corrected Calcium 8.6, Total Bilirubin 1.0, Aspartate Amino Transf (AST/SGOT) 34, Alanine Aminotransferase (ALT/SGPT) 19, Alkaline Phosphatase 121, Total Protein 6.3, Albumin 3.3 Discharge Instructions to patient/family Please see electronic discharge instructions given to patient. Discharge Medications Reviewed and agree with Discharge Medication list on patient's Discharge I nstruction sheet Clinical Quality Measures DVT/VTE Risk/Contraindication: Risk Factor Score Per Nursin RFS Level Per Nursing on Admit: 4+=Very High ISAAC GERMAIN 01/16/20 0953: Discharge Summary Discharge Physical Examination Allergies: Coded Allergies: TREVARonny Known Allergies (Verified Allergy, Unknown, 04/26/06) GAVIN HENRIQUEZ MD January 16, 2020 09:12 ISAAC GERMAIN January 16, 2020 09:53
[2020-01-16] MEDS ORDERED: FENT1PAT59 TD (09:15)
[2020-01-16] MEDS ORDERED: OXYC10TA7 PO (09:15)
--- NOTE | 2020-01-16 09:20 | Discharge Inst-Skilled Nursing ---
Discharge Inst-Skilled NF Reconcile Patient Problems Problems Reviewed?: Yes Patient Instructions Patient Problems: COMPRESSION FRACTURES THORACIC SPINE CONTUSION OF LUNG METASTATIC PROSTATE CANCER (TO BONE OF SPINE) HYPERTENSION DIABETES MELLITUS CHRONIC EDEMA PAINFUL CALLUS WITH INTERMITTENT WOUND LEFT GREAT TOE PLANTAR SURFACE Goal: HOME WITH HOME HEALTH PAIN CONTROL Consult/Follow Up/Orders Follow Up Appt.: [facility] Skilled NF Admit to: [facility] Certification (SNF) I certify that SNF services are required to be given on an inpatient basis because of the above named patient's need for longterm care on a continuing basis for the conditions(s) for which he/she was receiving inpatient hospital services prior to his/her transfer to the [facility]. Longterm Facility Order: Nursing Services, Refrigeration Plant Operator-Evaluate & Treat, Physical Therapy-Evaluate & Treat Oxygen Delivery Method: Nasal Cannula Oxygen Flow Rate L/min (Range): 2 Discharge Diet: ADA Diet (1800KCAL) Daily Activity as Tolerated: Yes Resuscitation Status: Full Code New & Resume Previous Orders New & Resume Previous Orders CBC, CMP IN 5 DAYS FROM DISCHARGE BACK BRACE ON WHILE SITTING UP OR AMBULATING - MAY TAKE OFF IN BED FOR COMFORT OF PATIENT KEEP DRESSING OVER GREAT TOE - CHANGE DAILY Gavin Sanchez January 16, 2020 09:16 Medication List: Active Scripts Active Duragesic Patch 75 MCG (Fentanyl) 1 Each Patch.td72 75 Mcg TD Q72H Oxycodone HCl 10 Mg Tablet 10 Mg PO 0000,0600,1200,1800 Reported Wing Elizondo Solostar (Insulin Glargine,Hum.rec.anlog) 300 Unit/1 Ml Insuln.pen 24 Unit SQ HS Levothyroxine Sodium 25 Mcg Tablet 25 Mcg PO 0600 Bisoprolol-Hctz 2.5-6.25 mg Tb (Bisoprolol Fumarate/Hctz) 1 Each Tablet 1 Each PO DAILY Aspir 81 (Aspirin) 81 Mg Tablet.dr 81 Mg PO DAILY Gabapentin 100 Mg Capsule 100 Mg PO 0000,1800 Lab results: Laboratory Tests Test 01/15/20 11:41 01/15/20 17:27 01/15/20 20:56 01/16/20 06:03 Range/Units Glucometer 238 H 238 H 286 H 230 H 70-110 MG/DL Test 01/16/20 06:17 Range/Units White Blood Count 9.0 4.3-11.0 10^3/uL Red Blood Count 3.05 L 4.35-5.85 10^6/uL Hemoglobin 9.0 L 13.3-17.7 G/DL Hematocrit 31 L 40-54 % Mean Corpuscular Volume 100 H 80-99 FL Mean Corpuscular Hemoglobin 30 25-34 PG Mean Corpuscular Hemoglobin Concent 29 L 32-36 G/DL Red Cell Distribution Width 16.9 H 10.0-14.5 % Platelet Count 171 130-400 10^3/uL Mean Platelet Volume 10.1 7.4-10.4 FL Sodium Level 138 135-145 MMOL/L Potassium Level 4.0 3.6-5.0 MMOL/L Chloride Level 97 L 98-107 MMOL/L Carbon Dioxide Level 32 21-32 MMOL/L Anion Gap 9 5-14 MMOL/L Blood Urea Nitrogen 19 H 7-18 MG/DL Creatinine 1.52 H 0.60-1.30 MG/DL Estimat Glomerular Filtration Rate 45 BUN/Creatinine Ratio 13 Glucose Level 237 H 70-105 MG/DL Calcium Level 8.0 L 8.5-10.1 MG/DL Corrected Calcium 8.6 8.5-10.1 MG/DL Total Bilirubin 1.0 0.1-1.0 MG/DL Aspartate Amino Transf (AST/SGOT) 34 5-34 U/L Alanine Aminotransferase (ALT/SGPT) 19 0-55 U/L Alkaline Phosphatase 121 40-136 U/L Total Protein 6.3 L 6.4-8.2 GM/DL Albumin 3.3 3.2-4.5 GM/DL My orders: Orders - GAVIN SANCHEZ MD Consulting Physician D/C Order (01/16/20 09:12) GAVIN SANCHEZ MD January 16, 2020 09:20
--- NOTE | 2020-01-16 09:30 | Physical Therapy Daily Note ---
PT Daily Note-Current Subjective Pt is in bed. He agrees to participating with bed exercises only. He reports his back pain is too high to get up. Pain Numeric Pain Scale: 8 Location Body Site: Back Pain Description: Sharp Appearance Pt is lethargic and had difficulty staying awake during therapy. Mental Status Patient Orientation: Person, Place, Situation Attachments: Oxygen, IV Transfers SCALE: Activities may be completed with or without assistive devices. 8-Nuhlfpuqpk-djrsmkr completes the activity by him/herself with no assistance from a helper. 5-Set-up or Clean-up Assistance-helper sets up or cleans up; patient completes activity. [place] assists only prior to or following the activity. 4-Supervision or Touching Assistance-helper provides verbal cues and/or touching/steadying and/or contact guard assistance as patient completes activity. Assistance may be provided throughout the activity or intermittently. 3-Partial/Moderate Assistance-helper does LESS THAN HALF the effort. [place] lifts, holds or supports trunk or limbs, but provides less than half the effort. 2-Substantial/Maximal Assistance-helper does MORE THAN HALF the effort. [place] lifts or holds trunk or limbs and provides more than half the effort. 2-Duvmcroti-yicyup does ALL the effort. Patient does none of the effort to complete the activity. Or, the assistance of 2 or more helpers is required for the patient to complete the activity. If activity was not attempted, code reason: 7-Patient Refused. 9-Not Applicable-not attempted and the patient did not perform the activity before the current illness, exacerbation or injury. 10-Not Attempted due to Environmental Limitations-(lack of equipment, weather restraints, etc.). 88-Not Attempted due to Medical Conditions or Safety Concerns. Exercises Supine Ex: LE Protocol Supine Reps: 15 Assessment Current Status: Poor Progress Pt would not participate with supine to sit. He agreed to bed exercises only, and was falling asleep during treatment. PT Activity Therapy Specialist Goals Activity Therapy Specialist Goals PT Nursing Home Goals Time Frame: January 24, 2020 Roll Left & Right (QC): 5 Sit to Lying (QC): 5 Lying-Sitting on Side/Bed(QC): 5 Sit to Stand (QC): 5 Chair/Jvb-te-Jqtcu Xfer(QC): 5 Toilet Transfer (QC): 5 Does the Patient Walk: Yes Walk 10 feet (QC): 5 Walk 50ft with 2 Turns (QC): 5 Walk 150 ft (QC): 5 PT Plan Treatment/Plan Treatment Plan: Continue Plan of Care Treatment Plan: Bed Mobility, Education, Functional Activity Camryn, Functional Strength, Gait, Safety, Therapeutic Exercise, Transfers Treatment Duration: January 24, 2020 Frequency: 6 times per week Estimated Hrs Per Day: .5 hour per day Patient and/or Family Agrees t: Yes Time/GCodes Time In: 904 Time Out: 919 Total Billed Treatment Time: 15 Total Billed Treatment 1, ex (15) LAURO CHATTERJEE PT January 16, 2020 09:30
[2020-01-16] MEDS ORDERED: fentaNYL PATCH 75 MCG (DURAGESIC) TD SCH (10:00)
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
--- NOTE | 2020-01-16 11:22 | NUR ---
Arrangements completed for pt transfer to [facility] to be under the care of Dr. Julio Cesar Tillman. Pt's granddaughter Danielle was notified and agreeable with plan. Physician reports including Physician reports, History and Physical , Consultations, Radiology, Labs, and MAR as well as DPOA for Health Care sent with EMS. Pt agreeable with plan as explained by Dr. Sanchez who did discuss plan of transfer.
[2020-01-19] MEDS ORDERED: FENTANYL PATCH REMOVAL TP SCH (09:59)
== END 2020-01-16 11:40 | disposition short-term general hospital (02) | DRG 552 ==
LOC: EDUNIT# 17:40 → ER 17:43 → 4TH 19:40
PROVIDERS: ADMIT Surgery; ATTEND Surgery
DX: S22.068A Other fracture of T7-T8 thoracic vertebra, initial encounter for closed fracture (principal); S22.078A Other fracture of T9-T10 vertebra, initial encounter for closed fracture; R40.2410 Glasgow coma scale score 13-15, unspecified time; M19.91 Primary osteoarthritis, unspecified site; M62.830 Muscle spasm of back; C61 Malignant neoplasm of prostate; C79.9 Secondary malignant neoplasm of unspecified site; E11.621 Type 2 diabetes mellitus with foot ulcer; L97.529 Non-pressure chronic ulcer of other part of left foot with unspecified severity; E11.42 Type 2 diabetes mellitus with diabetic polyneuropathy; I25.10 Atherosclerotic heart disease of native coronary artery without angina pectoris; I10 Essential (primary) hypertension; G47.30 Sleep apnea, unspecified; R60.9 Edema, unspecified; K59.09 Other constipation; E03.9 Hypothyroidism, unspecified; D64.9 Anemia, unspecified; Z79.4 Long term (current) use of insulin; Z79.899 Other long term (current) drug therapy; Z92.3 Personal history of irradiation; Z95.5 Presence of coronary angioplasty implant and graft; Z87.891 Personal history of nicotine dependence; V87.7XXA Person injured in collision between other specified motor vehicles (traffic), initial encounter; Y92.410 Unspecified street and highway as the place of occurrence of the external cause
CPT/HCPCS: 36415; 70450; 71250; 72125; 72128; 72131; 80053; 81000; 82728; 82962; 83540; 85025; 85027

== ENCOUNTER 2020-06-20 20:04 | Emergency (ER) | payer MEDICARE, MEDICAID ==
[~2020-06-20] VITALS: Ht 177.8 cm; Wt 123.4 kg
[~2020-06-20 20:04] MED LIST changes: +BISO-1 PO; +CYCL5TAB PO; +FENT1PAT59 TD; +FENT1PAT8 TD; +FURO-124 PO; +FURO40TA4 PO; +INSU300I3 SQ; +LEVO25TA5 PO; +NICO1PAT34 TD; +OXYC10TA7 PO; +POLY17PO31 PO; +POTA-51 PO; +POTA20TA8 PO; +SENN-20 PO; +TMSL.4C PO; +TOLTA4 PO
--- NOTE | 2020-06-20 20:40 | ED General ---
General Chief Complaint: Unresponsive Stated Complaint: UNRESPONSIVE Nursing Triage Note: PT TO ROOM 04 VIA EMS WITH C/O UNRESPONIVE. PT AWAKE AND RESPONSIVE UPON ARRIVAL. Nursing Sepsis Screen: No Definite Risk Source of Information: Patient, Caregiver Exam Limitations: No Limitations (AYAZ SLAUGHTER APRN) History of Present Illness Date Seen by Provider: Jun 20, 2020 Time Seen by Provider: 20:40 Initial Comments This is a 75-year-old male who presented via [facility] for unresponsiveness. The granddaughter states that she found him naked in his chair approximately 1930 this evening , at which time she turned his oxygen up from 3 L to 5 L via nasal cannula. Upon EMS arrival was awake and responsive and placed on a nonrebreather at 10 L/m. He has a history of multiorgan metastatic prostate cancer for which he has decided to not pursue treatment. At this time he has no complaints and states he is not sure what happened prior to arrival. Timing/Duration: 1-3 Hours Severity: Severe (AYAZ SLAUGHTER APRN) Allergies and Home Medications Allergies Coded Allergies: NKANo Known Allergies (Verified Allergy, Unknown, 04/26/06) Home Medications Aspirin 81 Mg Tablet.dr, 81 MG PO DAILY, (Reported) Bisoprolol Fumarate/Hctz 1 Each Tablet, 1 EACH PO DAILY, (Reported) Cyclobenzaprine HCl 5 Mg Tablet, 2.5 MG PO TID Prescribed by: GAVIN HENRIQUEZ on 02/11/20843 Fentanyl 1 Each Patch.td72, 25 MCG TD Q72H Prescribed by: GAVIN HENRIQUEZ on 02/11/20843 Furosemide 40 Mg Tablet, 20 MG PO DAILY@0700 Prescribed by: CHRIS LIM on 02/10/202101 Gabapentin 100 Mg Capsule, 100 MG PO BID, (Reported) Levothyroxine Sodium 25 Mcg Tablet, 25 MCG PO DAILY, (Reported) Nicotine 1 Each Patch.td24, 21 MG TD DAILY@0900 Prescribed by: CHRIS LIM on 02/10/202101 Oxycodone HCl 10 Mg Tablet, 10 MG PO Q6H PRN for PAIN-MODERATE (5-7) Prescribed by: GAVIN HENRIQUEZ on 02/11/20843 Polyethylene Glycol 3350 17 Gm Powd.pack, 17 GM PO BID Prescribed by: CHRIS LIM on 02/10/202101 Potassium Chloride 20 Meq Tab.er.prt, 10 MEQ PO DAILY@0700 Prescribed by: CHRIS LIM on 02/10/202101 Sennosides/Docusate Sodium 1 Each Tablet, 1 EA PO BID Prescribed by: CHRIS LIM on 02/10/202101 Tamsulosin HCl 0.4 Mg Cap, 0.4 MG PO DAILY@1800 Prescribed by: CHRIS LIM on 02/10/202101 Tolterodine Tartrate 4 Mg Cap, 4 MG PO HS Prescribed by: CHRIS LIM on 02/10/202101 Patient Home Medication List Home Medication List Reviewed: Yes (AYAZ SLAUGHTER APRN) Review of Systems Review of Systems Constitutional: no symptoms reported EENTM: no symptoms reported Respiratory: no symptoms reported Cardiovascular: no symptoms reported Gastrointestinal: constipation Genitourinary: hematuria Musculoskeletal: no symptoms reported Skin: rash (groin and gluteal folds) Psychiatric/Neurological: No Symptoms Reported Hematologic/Lymphatic: No Symptoms Reported Immunological/Allergic: no symptoms reported (AYAZ SLAUGHTER APRN) Past Mfpuocn-Gqbart-Fembnn Hx Patient Social History Alcohol Use: Denies Use Number of Drinks Today: GG Alcohol Beverage of Choice: Beer, Whiskey, [place], Vodka Recreational Drug Use: No Smoking Status: Former Smoker Type Used: Smokeless Tobacco Former Smoker, Quit: Nov 21, 1969 2nd Hand Smoke Exposure: No Recent Foreign Travel: No Contact w/Someone Who Travel: No Recent Infectious Disease Expo: No Recent Hopitalizations: Yes Physical Abuse: No Sexual Abuse: No Mistreated: No Fear: No (AYAZ SLAUGHTER APRN) Immunizations Up To Date Tetanus Booster (TDap): Unknown PED Vaccines UTD: No (AYAZ SLAUGHTER APRN) Seasonal Allergies Seasonal Allergies: No (AYAZ SLAUGHTER APRN) Past Medical History Surgeries: Yes Coronary Stent, Gallbladder, Orthopedic Respiratory: No Sleep Apnea Cardiac: Yes Chronic Edema/Swelling, Coronary Artery Disease, Hypertension Neurological: No Reproductive Disorders: No Sexually Transmitted Disease: No HIV/AIDS: No Genitourinary: No Prostate Problems Gastrointestinal: No Chronic Constipation Musculoskeletal: No Arthritis, Gout Endocrine: Yes Diabetes, Insulin dep, Hypothyroidsim HEENT: No Cancer: Yes Prostate Did You Recieve Any Treatments: Yes What Type of Treatment Did You: Radiation Psychosocial: No Integumentary: No Blood Disorders: No (AYAZ SLAUGHTER APRN) Family Medical History Arthritis G8 BROTHER Completed stroke 19 FATHER 19 MOTHER Deafness or hearing loss 19 FATHER 19 MOTHER Diabetes mellitus 19 MOTHER Myocardial infarction 19 FATHER Severe allergy 19 MOTHER (EGG ALERGY) No Family History of: AIDS Abdominal aortic aneurysm [place]'s disease Alcoholism Alzheimer's disease Aphasia Asthma Cancer of mouth Cardiovascular disease Cataracts Colon cancer Congenital disease Congenital heart disease Coronary thrombosis Cystic fibrosis Dementia Drug abuse Dysphasia Fibrocystic disease of breast Gastroenteritis Glaucoma Headache disorder Hypercholesterolemia Hypertension Infertility Kidney disease Neoplasm Osteoporosis Parkinson's disease Prostate cancer Psychosocial problem Respiratory disorder Seizure disorder Thyroid disease Tuberculosis Visual disorder Heart Disease, Diabetes, Stroke (AYAZ SLAUGHTER APRN) Physical Exam Vital Signs Vital Signs - First Documented 06/20/20 20:09 Temp 36.5 Pulse 64 Resp 17 B/P (MAP) 72/49 (57) Pulse Ox 94 O2 Delivery Non Rebreather O2 Flow Rate 8.00 (EZRA CHUN) Vital Signs Capillary Refill : Less Than 3 Seconds (AYAZ SLAUGHTER APRN) Height, Weight, BMI Height: 5'10.00" Weight: 260lbs. 4.0oz. 118.194664sp; 39.00 BMI Method: General Appearance: No Apparent Distress, WD/WN Eyes: Bilateral Eye Normal Inspection, Bilateral Eye PERRL, Bilateral Eye EOMI HEENT: PERRL/EOMI, Normal ENT Inspection, Pharynx Normal, Moist Mucous Membra stephanie Neck: Full Range of Motion, Normal Inspection, Non Tender Respiratory: Chest Non Tender, Lungs Clear, Normal Breath Sounds, No Accessory Muscle Use, No Respiratory Distress Cardiovascular: Regular Rate, Rhythm, No Edema, No Gallop, Normal Peripheral Pulses Gastrointestinal: Normal Bowel Sounds Back: Normal Inspection, No Vertebral Tenderness Extremity: Normal Capillary Refill, Normal Range of Motion, Non Tender, Other (trophic skin changes noted to bilateral lower extremities.) Neurologic/Psychiatric: Alert, Oriented x3, No Motor/Sensory Deficits; No Facial Droop, No Sensory Deficit; Other (drowsy, but awakens easily to verbal stimuli) Skin: Normal Color, Warm/Dry, Other (trophic skin changes noted to bilateral lower extremities, dry, erythematous rash in groin and gluteal folds.) (AYAZ SLAUGHTER APRN) Focused Exam Lactate Level 06/20/20 21:12: Lactic Acid Level 1.65 (EZRA CHUN) Lactic Acid Level Laboratory Tests Test 06/20/20 21:12 Lactic Acid Level 1.65 MMOL/L (0.50-2.00) (EZRA CHUN) Procedures/Interventions Lumen: triple Central Line Procedure: betadine prep, sterile drapes applied, sterile dressing applied Position: internal jugular (R) Anesthesia: Lidocaine Volume Anesthetic (ccs): 3 Complications: none Post Position: sutured, good blood return, position confirmed w/ CXR Risks, benefits and alternatives were discussed with the patient and he consented to the procedure. He was positioned in the usual format and using the usual sterile garment and drapes the patient was dressed out. The skin was thoroughly cleaned with the supplied chlorhexidine prep. After the prep had dried a sterile drape was placed. The 20 cm 7 Korean triple-lumen catheter was flushed with sterile saline. We used ultrasound guidance to pass the introducer needle into the right internal jugular without difficulty. A guidewire was placed easily without difficulty. No ectopy was seen on the monitor. The supplied 11 blade scalpel was used to make a 2 mm incision at the inferior portion of the introducer needle. The introducer needle was replaced with the dilator. The dilator was taken out and the patient had the central lumen of the triple lumen catheter threaded over the guidewire and placed at 15 cm. The guidewire was removed and the triple-lumen catheter was stitched in place using the supplied braided stitch at 2 different points. The catheter withdrew blood and flushed easily. A sterile dressing was placed over the catheter. The patient tolerated the procedure well. A chest x-ray was obtained that demonstrated no pneumothorax and a new interval central catheter over the shadow of the right internal jugular down the superior vena cava and terminating just at the level of the right atria. (EZRA CHUN) Progress/Results/Core Measures Suspected Sepsis Recent Fever Within 48 Hours: No Infection Criteria Present: Suspected New Infection New/Unexplained Altered Menta: Yes Sepsis Screen: No Definite Risk Within 3hrs of presentation: Admin fluids, Admin ABX, Blood cultures prior to ABX's, Focus exam, Lactate level SIRS Temperature: Pulse: 64 Respiratory Rate: 17 Laboratory Tests 06/20/20 20:12: White Blood Count 29.3H Blood Pressure 72 /49 Mean: 57 06/20/20 21:12: Lactic Acid Level 1.65 Laboratory Tests 06/20/20 20:12: Creatinine 2.76H, Platelet Count 198, Total Bilirubin 1.0 (AYAZ SLAUGHTER APRN) Results/Orders Lab Results Laboratory Tests Test 06/20/20 20:12 06/20/20 21:12 06/21/20 00:25 Range/Units White Blood Count 29.3 H 4.3-11.0 10^3/uL Red Blood Count 4.03 L 4.30-5.52 10^6/uL Hemoglobin 12.8 L 13.3-17.7 g/dL Hematocrit 40 40-54 % Mean Corpuscular Volume 99 80-99 fL Mean Corpuscular Hemoglobin 32 25-34 pg Mean Corpuscular Hemoglobin Concent 32 32-36 g/dL Red Cell Distribution Width 14.9 H 10.0-14.5 % Platelet Count 198 130-400 10^3/uL Mean Platelet Volume 11.8 9.0-12.2 fL Immature Granulocyte % (Auto) 1 % Neutrophils (%) (Auto) 94 H 42-75 % Lymphocytes (%) (Auto) 2 L 12-44 % Monocytes (%) (Auto) 4 0-12 % Eosinophils (%) (Auto) 0 0-10 % Basophils (%) (Auto) 0 0-10 % Neutrophils # (Auto) 27.4 H 1.8-7.8 10^3/uL Lymphocytes # (Auto) 0.4 L 1.0-4.0 10^3/uL Monocytes # (Auto) 1.0 0.0-1.0 10^3/uL Eosinophils # (Auto) 0.0 0.0-0.3 10^3/uL Basophils # (Auto) 0.1 0.0-0.1 10^3/uL Immature Granulocyte # (Auto) 0.4 H 0.0-0.1 10^3/uL Neutrophils % (Manual) 88 % Lymphocytes % (Manual) 4 % Monocytes % (Manual) 5 % Band Neutrophils 3 % Blood Morphology Comment NORMAL Sodium Level 138 135-145 MMOL/L Potassium Level 4.5 3.6-5.0 MMOL/L Chloride Level 96 L 98-107 MMOL/L Carbon Dioxide Level 28 21-32 MMOL/L Anion Gap 14 5-14 MMOL/L Blood Urea Nitrogen 22 H 7-18 MG/DL Creatinine 2.76 H 0.60-1.30 MG/DL Estimat Glomerular Filtration Rate 23 BUN/Creatinine Ratio 8 Glucose Level 184 H 70-105 MG/DL Calcium Level 8.7 8.5-10.1 MG/DL Corrected Calcium 9.0 8.5-10.1 MG/DL Total Bilirubin 1.0 0.1-1.0 MG/DL Aspartate Amino Transf (AST/SGOT) 18 5-34 U/L Alanine Aminotransferase (ALT/SGPT) 14 0-55 U/L Alkaline Phosphatase 114 40-136 U/L Troponin I 0.031 H <0.028 NG/ML Total Protein 6.6 6.4-8.2 GM/DL Albumin 3.6 3.2-4.5 GM/DL Procalcitonin 21.35 H <0.10 NG/ML Lactic Acid Level 1.65 0.50-2.00 MMOL/L (EZRA CHUN) My Orders Orders - EZRA CHUN Chest 1 View, Ap/Pa Only (06/21/20 00:12) (EZRA CHUN) Medications Given in ED Current Medications Medications Dose Ordered Sig/Phillip Route Start Time Stop Time Status Last Admin Dose Admin Cefepime HCl 1000 mg/Sterile Water 10 ml @ 200 mls/hr ONCE ONCE IV 06/20/20 22:45 06/20/20 22:47 DC 06/21/20 00:22 200 MLS/HR (EZRA CHUN) Vital Signs/I&O 06/20/20 06/21/20 20:09 00:23 Temp 36.5 Pulse 64 52 Resp 17 B/P (MAP) 72/49 (57) 81/40 Pulse Ox 94 O2 Delivery Non Rebreather O2 Flow Rate 8.00 06/21/20 00:00 Intake Total 1000 ml Balance 1000 ml (EZRA CHUN) Vital Signs/I&O Capillary Refill : Less Than 3 Seconds (AYAZ SLAUGHTER APRN) Blood Pressure Mean: 57 Progress Note : Progress Note Initial low blood pressure and increased oxygen requirements raised concerns for sepsis, possible respiratory related. Initiated sepsis/cardiac workup and ordered chest x-ray, troponin, and EKG. Patient receiving 1 L of normal saline via gravity bolus initiated by EMS YARN TESTER. Initial blood pressure 70s over 40s. He currently has no physical complaints at this time. No obvious focal or gross neurological deficits appreciated. Discuss code status with him and states that he has a DNR and does not want any life-saving measures. Labs reviewed, and WBC noted at 29.3, hemoglobin stable at 12.8, creatinine 2.76, BUN/creatinine 22, lactic 1.65, troponin 0.031. Continued to remain hypotensive with blood pressures 80s over 40s and second liter of fluid initiated. Discussed elevated troponin with him and he stated he did not want to pursue any cardiac interventions. He is agreeable to treating infection and initiating vasopressors for hypotension. Pending urine sample. Discussed case with Dr. Granda, she agrees ICU status is warranted. However, there are no ICU beds available at this facility. Called Mariam in [facility] and facility is on ICU diversion. Called Dr. Shaw at [facility] in [facility] and he has agreed to patient transfer. Requested CT abdomen and pelvis prior to transfer. Initiated Vasopressor therapy with Levophed via peripheral IV, pending placement of central line. Ordered placement of Crawford catheter. Once hemodynamically stable will obtain CT abdomen and pelvis without contrast due to renal function. Pressure improved to 114/59 with the Levophed. At 1:02 AM, was notified by radiology that the CT scanner would be down for approximately 1 hour. 02:13 [facility] here for patient transfer. Will defer CT abdomen and pelvis to [place]. Source of infection is urine. (AYAZ SLAUGHTER ASL INTERPRETER) ECG Initial ECG Impression Date: Jun 20, 2020 Initial ECG Rhythm: Normal Sinus (AYAZ SLAUGHTER APRN) Departure Impression Primary Impression: Sepsis due to urinary tract infection Disposition: XF [facility] HOSP Condition: Stable Transfer Transfer Reason: Diversion Time Spoke to Accepting Phy: 22:39 Transfer Time: 02:17 Transfer Facility: [facility] Method of Transfer: EMS (AYAZ SLAUGHTER APRN) Departure-Patient Inst. Referrals: GAVIN HENRIQUEZ MD (PCP/Family) Primary Care Physician Patient Instructions: Drug Abuse and Drug Addiction (DC) AYAZ SLAUGHTER APRN Jun 20, 2020 20:40 EZRA CHUN Jun 21, 2020 00:58
[2020-06-20 20:52] LABS: BASOPHILS # (AUTO) 0.1 10^3/uL (0.0-0.1); BASOPHILS % (AUTO) 0 % (0-10); EOSINOPHILS % (AUTO) 0 % (0-10); HEMATOCRIT 40 % (40-54); HEMOGLOBIN 12.8 g/dL (13.3-17.7); LYMPHOCYTES # (AUTO) 0.4 10^3/uL (1.0-4.0); LYMPHOCYTES % (AUTO) 2 % (12-44); MEAN CORPUSCULAR HEMOGLOBIN 32 pg (25-34); MEAN CORPUSCULAR HGB CONC 32 g/dL (32-36); MEAN CORPUSCULAR VOLUME 99 fL (80-99); MEAN PLATELET VOLUME 11.8 fL (9.0-12.2); MONOCYTES % (AUTO) 4 % (0-12); NEUTROPHILS # (AUTO) 27.4 10^3/uL (1.8-7.8); NEUTROPHILS % (AUTO) 94 % (42-75); PLATELET COUNT 198 10^3/uL (130-400); WHITE BLOOD COUNT 29.3 10^3/uL (4.3-11.0)
[2020-06-20 21:00] LABS: ALBUMIN 3.6 GM/DL (3.2-4.5); CALCIUM 8.7 MG/DL (8.5-10.1); CREATININE SERUM 2.76 MG/DL (0.60-1.30); POTASSIUM 4.5 MMOL/L (3.6-5.0); TOTAL PROTEIN 6.6 GM/DL (6.4-8.2)
--- NOTE | 2020-06-20 21:06 | NUR ---
SPOKE TO PT'S GRANDDAUGHTER AND GIVEN UPDATE. CALL TRANSFERRED TO PORTABLE AND GIVEN TO PT SO HE COULD SPEAK WITH FAMILY.
[2020-06-20 21:17] LABS: NEUTROPHILS % (MANUAL) 88 %
--- NOTE | 2020-06-20 21:17 | Diagnostic Imaging Report ---
EXAMINATION: Chest 1 view. HISTORY: Sepsis. COMPARISON: 07/29/2014. FINDINGS: The lung volumes are normal. Bibasilar opacities are noted. No large pleural effusion or pneumothorax is seen. The cardiomediastinal silhouette is prominent. No acute osseous abnormality is seen. Posterior fusion changes are seen in the midthoracic spine. IMPRESSION: 1. Bibasilar opacities, likely representing atelectasis. 2. Cardiomegaly. No overt pulmonary edema. Dictated by: Dictated on workstation # [id number]
[2020-06-20 21:18] LABS: BAND NEUTROPHILS 3 %; LYMPHOCYTES % (MANUAL) 4 %; MONOCYTES % (MANUAL) 5 %; RBC MORPH NORMAL
[2020-06-20] MEDS ORDERED: NS IV 1000 ML 1,000 ML IV SCH (21:24)
[2020-06-20] MEDS ORDERED: CEFEPIME INJECTION 1,000 MG in WATER (STERILE) FOR INJECTION 10 ML IV ONE (22:45)
[2020-06-20] MEDS ORDERED: NOREPINEPHRINE 4 MG/250 ML 250 ML IV SCH (22:45)
--- NOTE | 2020-06-21 00:26 | NUR ---
NOREPINEPHERIN STARTED AT 0.03 MCG/KG/MIN PER PROVIDER
[2020-06-21 00:47] LABS: BILIRUBIN,URINE NEGATIVE (NEGATIVE); CLARITY,URINE SL CLOUDY; COLOR,URINE YELLOW; GLUCOSE, URINE (UA) NEGATIVE (NEGATIVE); KETONES,URINE TRACE (NEGATIVE); LEUKOCYTE ESTERASE ,URINE 1+ (NEGATIVE); NITRITE,URINE POSITIVE (NEGATIVE); PROTEIN,URINE 2+ (NEGATIVE)
[2020-06-21 01:00] LABS: BACTERIA,URINE LARGE /HPF; RBC,URINE 25-50 /HPF
[2020-06-21 03:09] VITALS: BP 121/74
--- NOTE | 2020-06-21 07:04 | Diagnostic Imaging Report ---
INDICATION: Post code COMPARISON: 06/20/2020 TECHNIQUE: Single radiograph of the chest dated 06/21/2020. FINDINGS: Interval placement of right IJ central venous catheter with the distal tip overlying the expected location of the mid aspect of the superior vena cava. No pneumothorax. The cardiac silhouette is enlarged. No significant pulmonary vascular congestion. Low lung volumes with persisting mild bibasilar pulmonary opacities. No pneumothorax. Postsurgical changes within the spine again seen. No acute osseous abnormality. IMPRESSION: Decreasing lung volumes with slightly increasing bibasilar atelectasis. Placement of right IJ central venous catheter with the distal tip overlying the mid aspect of the superior vena cava without pneumothorax. Persistent enlargement of the cardiac silhouette. Dictated by: Dictated on workstation # [id number]
== END 2020-06-21 03:09 | disposition short-term general hospital (02) ==
LOC: EDUNIT# 20:04 → ER 20:06
DX: A41.9 Sepsis, unspecified organism (principal); N39.0 Urinary tract infection, site not specified; I10 Essential (primary) hypertension; I25.10 Atherosclerotic heart disease of native coronary artery without angina pectoris; E03.9 Hypothyroidism, unspecified; K59.09 Other constipation; Z82.49 Family history of ischemic heart disease and other diseases of the circulatory system; Z85.46 Personal history of malignant neoplasm of prostate; Z95.5 Presence of coronary angioplasty implant and graft; Z79.82 Long term (current) use of aspirin; Z79.890 Hormone replacement therapy; Z87.891 Personal history of nicotine dependence
CPT/HCPCS: 36415; 51702; 71045; 80053; 81000; 83605; 84145; 84484; 85007; 85027; 87040; 87077; 87088; 87186; 93005